=== PATIENT | male | born 1955 | race Caucasian/White ===

== ENCOUNTER 2022-09-19 09:16 | Outpatient (CLI) | payer MEDICARE, SELFPAY ==
--- NOTE | 2022-09-19 11:00 | NEURO_ITS ---
Impression: # Complains of numbness and weakness of hands. # Bilateral Carpal Tunnel Syndrome, left more than right. # Bilateral ulnar neuropathy across the elbows. # Needle/EMG exam is neurogenic. Motor Nerve Conduction Upper Extremities Median Nerve Conduction Velocity (m/sec) Terminal Latency (msec) Response Voltage(mV) Elbow-Wrist Wrist Elbow Wrist Right 53 4.6 2 2 Left 60 4.8 2 3 Ulnar Nerve Conduction Velocity (m/sec) Terminal Latency (msec) Response Voltage(mV) Above Elbow Below Elbow Wrist Above Elbow Below Elbow Wrist Right 46 44 3.3 4 4 5 Left 49 57 3.0 3 4 5 F-Wave Latency Median (ms) Ulnar (ms) Right 34.8 34.8 Left 33.9 34.6 Sensory Nerve Conduction Upper Extremities Median Nerve Stimulation Terminal Latency (msec) Wrist/Digit Response Voltage (uV) Wrist Right 3.9/4.0 10/11 Left 4.3/4.1 15/15 Ulnar Nerve Stimulation Terminal Latency (msec) Wrist/Digit Response Voltage (uV) Wrist Right 3.3 29 Left 3.5 34 Radial Nerve Terminal Latency (msec) Response Voltage(mV) Right 2.5 10 Left 2.6 12 Left Right Muscles Examined Fibrillation Fasciculation Scarcity Voltage Duration Left Right Left Right Left Right Left Right Left Right Deltoid Biceps X X Brachioradialis Triceps X X Pronator Teres X X Ext Indicis X X Ext Digitorum X X Abd Poll Brev >12ms >12ms X X 1st Dorsal Interosseus Reduced Reduced >12ms >12ms X X Abd Dig Min Reduced Reduced >12ms >12ms MTDD
== END 2022-09-19 09:17 | disposition home or self-care (01) ==
LOC: ANHNEURO 09:16
PROVIDERS: PCP Family Medicine; Visit Provider Family Medicine
DX: R20.2 Paresthesia of skin (principal); G56.23 Lesion of ulnar nerve, bilateral upper limbs; G56.03 Carpal tunnel syndrome, bilateral upper limbs
CPT/HCPCS: 95886; 95911

== ENCOUNTER 2023-01-05 09:57 | Outpatient (CLI) | payer MEDICARE, SELFPAY ==
--- NOTE | 2023-01-05 | ECG_ITS ---
Measurements Intervals [place] Rate: 58 P: -6 GA: 180 QRS: 7 QRSD: 105 T: 61 QT: 398 QTc: 394 Interpretive Statements SINUS BRADYCARDIA NO PREVIOUS ECG AVAILABLE FOR COMPARISON Electronically Signed On 01-05-2023 12:18:33 CDT by Dontae Henderson M.D.
== END 2023-01-05 09:58 | disposition home or self-care (01) ==
LOC: ANHCARD 09:59
PROVIDERS: PCP Family Medicine; Visit Provider Plastic Surgery
DX: E11.9 Type 2 diabetes mellitus without complications (principal); I10 Essential (primary) hypertension; Z01.818 Encounter for other preprocedural examination
CPT/HCPCS: 93005

== ENCOUNTER 2024-04-29 12:25 | Outpatient (CLI) | payer MEDICARE, SELFPAY ==
--- NOTE | ~2024-04-29 | MR_ITS ---
EXAMINATION: MR lumbar spine wo con DATE: 04/29/2024 13:18 INDICATION: Lumbago with sciatica. Chronic low back pain rating down left leg. TECHNIQUE: Magnetic resonance imaging (MRI) of the lumbar spine was performed without intravenous con trast. COMPARISON: None FINDINGS: There is 6 degrees levocurvature of thoracolumbar spine. There is 4 mm retrolisthesis of L1 on L2 and 5 mm anterolisthesis of L4 on L5. There is chronic height loss of T11-L5 vertebral bodies. There are Schmorl's nodes at multiple levels. There are disc calcifications at T12-L1. There is isaias rely decreased disc height at L1-L2 and moderately decreased disc height at L2-L3, L4-L5, and L5-S1. The distal spinal cord signal intensity is normal. The conus medullaris is at T12-L1. The following d isc levels are specifically discussed: L1-L2: The disc is bulging and has an annular fissure. There is moderate bilateral facet joint osteoa rthritis. There is moderate right and mild left neural foraminal stenosis. There is mild central ayo l stenosis. L2-L3: The disc is bulging and has an annular fissure. There is severe bilateral facet joint osteoart hritis. There is moderate bilateral neural foraminal stenosis. There is mild central canal stenosis. L3-L4: The disc is bulging. There is moderate right and severe left facet joint osteoarthritis. There is moderate bilateral neural foraminal stenosis. There is mild central canal stenosis. L4-L5: The disc is bulging and has an annular fissure. There is severe bilateral facet joint osteoart hritis. There is moderate right and mild left neural foraminal stenosis. There is moderate central ca nal stenosis. L5-S1: The disc is bulging and has an annular fissure. There is severe bilateral facet joint osteoart hritis. There is moderate bilateral neural foraminal stenosis. There is mild central canal stenosis. IMPRESSION: 1. Severe lumbar spondylosis. Reviewed, dictated and finalized at location A.
== END 2024-04-29 12:26 ==
LOC: GOSHIMG 12:27
PROVIDERS: PCP Nurse Practitioner; Visit Provider Nurse Practitioner
DX: M54.40 Lumbago with sciatica, unspecified side (principal); G89.29 Other chronic pain; M47.896 Other spondylosis, lumbar region
CPT/HCPCS: 72148

== ENCOUNTER 2024-07-01 12:37 | Outpatient (CLI) | payer MEDICARE, SELFPAY ==
--- NOTE | ~2024-07-01 | MR_ITS ---
EXAMINATION: MR cervical spine wo con DATE: 07/01/2024 13:34 INDICATION: Cervical disc disorder. TECHNIQUE: Magnetic resonance imaging (MRI) of the cervical spine was performed without intravenous c ontrast. Sequences included sagittal T2-weighted FSE, sagittal T2-weighted FS FSE, sagittal T1-weight ed FSE, axial MERGE, and axial T2-weighted FSE. COMPARISON: None FINDINGS: Bone alignment is normal. Vertebral body heights are normal. There is severely decreased di sc height at C6-C7 and C7-T1. There is increased T2-weighted signal intensity in the spinal cord at C 4-C5. The following disc levels are specifically discussed: C2-C3: The disc does not extend beyond the endplate margin. There is moderate left uncovertebral join t osteoarthritis. There is mild right and moderate left facet joint osteoarthritis. There is mild rig ht and moderate left neural foraminal stenosis. There is no central canal stenosis. C3-C4: There is a central extrusion. There is moderate right and mild left uncovertebral joint osteoa rthritis. There is moderate bilateral facet joint osteoarthritis. There is moderate right and mild le ft neural foraminal stenosis. There is moderate central canal stenosis with ventral and dorsal indent ation of the spinal cord. C4-C5: There is a central extrusion. There is moderate bilateral uncovertebral joint osteoarthritis. There is severe bilateral facet joint osteoarthritis. There is moderate bilateral neural foraminal st enosis. There is severe central canal stenosis with ventral and dorsal indentation of the spinal cord . C5-C6: There is a central extrusion. There is moderate right and mild left uncovertebral joint osteoa rthritis. There is severe right and moderate left facet joint osteoarthritis. There is mild bilateral neural foraminal stenosis. There is mild central canal stenosis with ventral indentation of the spin al cord. C6-C7: There is a left central extrusion. There is severe bilateral uncovertebral joint osteoarthriti s. There is moderate right and mild left facet joint osteoarthritis. There is moderate and mild left neural foraminal stenosis. There is mild central canal stenosis. C7-T1: The disc is bulging. There is severe bilateral uncovertebral joint osteoarthritis. There is se geronimo bilateral facet joint osteoarthritis. There is moderate right and mild left neural foraminal marielos nosis. There is mild central canal stenosis. IMPRESSION: 1. Severe cervical spondylosis. 2. Myelomalacia at C4-C5. Reviewed, dictated and finalized at location A.
== END 2024-07-01 12:38 | disposition home or self-care (01) ==
LOC: GOSHIMG 12:39
PROVIDERS: PCP Nurse Practitioner; Visit Provider Anesthesiology Pain Medicine
DX: M50.90 Cervical disc disorder, unspecified, unspecified cervical region (principal); M47.892 Other spondylosis, cervical region
CPT/HCPCS: 72141

== ENCOUNTER 2024-09-07 12:13 | Outpatient (CLI) | payer MEDICARE, SELFPAY ==
--- NOTE | ~2024-09-07 | XR_ITS ---
XR shoulder RT min 2V Ordering provider: Radha Castro [employer] History: . M25.511 - Pain in right shoulder . Comparison: None. FINDINGS: BONES: No acute fracture or dislocation. JOINT SPACES: The acromioclavicular joint shows mild osteoarthritic changes. The glenohumeral joint s hows mild osteoarthritic changes. SOFT TISSUES: Normal. IMPRESSION: No acute osseous abnormality right shoulder. Reviewed, dictated and finalized at location A. ECTOR HAIRSPRING
--- NOTE | ~2024-09-07 | XR_ITS ---
XR femur RT min 2V Ordering provider: ADEN HayesC History: . M89.8X5 - Other specified disorders of bone, thigh . Comparison: None. FINDINGS: BONES: No acute fracture or dislocation. JOINT SPACES: Moderate osteoarthritic changes of the right hip. SOFT TISSUES: Normal. IMPRESSION: No acute osseous abnormality of the right femur. Moderate osteoarthritic changes of the right hip. Reviewed, dictated and finalized at location A. 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
== END 2024-09-07 12:14 | disposition home or self-care (01) ==
LOC: GOSHIMG 12:15
PROVIDERS: PCP Family Medicine; Visit Provider Nurse Practitioner
DX: M16.11 Unilateral primary osteoarthritis, right hip (principal); M25.511 Pain in right shoulder
CPT/HCPCS: 73030; 73552

== ENCOUNTER 2024-09-08 13:08 | Emergency (ER) | payer MEDICARE, SELFPAY ==
--- NOTE | ~2024-09-08 | XR_ITS ---
AP and oblique views of the right ribs Clinical History: Pain Findings: Acute fracture of the right sixth rib noted. Lungs are clear, without focal consolidation o r pleural effusion. Cardiomediastinal contour is within normal limits. Soft tissues are unremarkable. Impression: Acute fracture of the right sixth rib. Reviewed, dictated and finalized at location . 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
--- NOTE | 2024-09-08 15:25 | ED.FALL ---
HPI - Fall General Chief Complaint: Fall Stated Complaint: fall Time Seen by Provider: 09/08/24 15:18 History of Present Illness HPI Narrative: 69-year-old male presents to the emergency department for right shoulder pain, right thigh pain and right rib pain after mechanical fall that occurred 3 days ago. Patient states he is unsteady balance and lost his balance and fell to the ground landing on the right side. He did not hit his head or lose consciousness. He is not anticoagulated. Patient had out patient x-rays performed yesterday of his shoulder and femur which showed no acute findings. He presents today for persistent rib pain. Related Data Home Medications ?Medication ?Instructions ?Recorded ?Confirmed ?Last Taken ?Type amlodipine 10 mg tablet 10 mg PO DAILY 07/28/19 08/24/24 Unknown History aspirin 81 mg tablet,delayed 81 mg PO DAILY 07/28/19 08/24/24 Unknown History release carvedilol 25 mg tablet 25 mg PO Q12H 07/28/19 08/24/24 Unknown History tacrolimus 1 mg capsule, 1 mg PO Q12H 08/11/19 08/24/24 Unknown History immediate-release triamcinolone acetonide 55 mcg 1 spray intranasal DAILY 08/11/19 08/24/24 Unknown History nasal spray aerosol (Nasacort) loratadine 10 mg tablet (Claritin) 10 mg PO DAILY 04/17/21 08/24/24 Unknown History doxazosin 8 mg tablet 8 mg PO DAILY 04/16/24 08/24/24 Unknown History magnesium oxide 400 mg PO DAILY 06/05/24 08/24/24 Unknown History Allergies Allergy/AdvReac Type Severity Reaction Status Date / Time Penicillins Allergy Unknown rash Verified 08/24/24 12:53 ibuprofen AdvReac Other Verified 08/24/24 12:53 CEPHALEXIN MONOHYDRATE Allergy Unknown GI DISTRESS Uncoded 08/24/24 12:53 Review of Systems Review of Systems: All systems reviewed & are unremarkable except as noted in HPI and below PMFSH Past Medical History Medical History Seizures Chronic headaches Diabetes Asthma Allergies Hepatitis C antibody test negative (02/23/12) Surgical History Surgical History H/O inguinal hernia repair H/O kyphoplasty Hx of carpal tunnel repair Bilateral - January and February 2023 Liver transplant recipient (~2018) Family History Family History Grandparent Diabetes mellitus Acute myocardial infarction Cerebrovascular accident Mother Family history of malignant neoplasm, Onset Age: 41 Father Hypertension Other Family history of alcoholism Family history of blood dyscrasia Social History Social History Smoking packs per day: 2 Smoking cigarettes per day: 40.0 Years smoked: 15 Smoking pack-years: 30.00 Smoking status: Former smoker Smoking end date: 09/09/84 Alcohol intake: never Substance use: never Substance use type: does not use Do You Feel Safe in your Home?: Yes Lack of Transportation: No Lack of Food: Never True Current Housing: I Have Housing Concerned About Future Housing: No Difficulty Paying Gas/Electric Bills: No Difficulty Paying for Meds: No Currently Unemployed: No Education: Associate Degree Difficulty w/ Childcare or Family Care: No Exam Narrative: GENERAL: Well-appearing, well-nourished, and in no acute distress. HEAD: Normocephalic, atraumatic. EYES: EOMI. ENT: Nares clear, no rhinorrhea or epistaxis. Mucous membranes moist. NECK: No midline cervical spinous tenderness, crepitus, step-offs or deformities BACK: No midline thoracolumbar spinous tenderness, crepitus, step-offs or deformities CHEST: Clear to auscultation. No respiratory distress. Tenderness to the right anterior lateral chest wall with no overlying skin changes HEART: Regular rate and rhythm. No murmur heard. Normal peripheral pulses. ABDOMEN: Soft, nontender, nondistended, normal active bowel sounds. EXTREMITIES: Diffuse tenderness to the right shoulder with no obvious deformity or edema, no ecchymosis. No tenderness remainder of extremity. Radial pulse 2 +. Sensation intact. Near full range of motion but it is limited secondary to pain. Tenderness diffusely to the right thigh with no obvious deformity, no edema or ecchymosis. No tenderness remainder of extremity. Full range of motion of hip and knee. DP pulse 2 +. Sensation intact. SKIN: Warm, dry, no rash. NEURO: No focal deficits. Alert and oriented x3 MDM - Fall MDM Narrative Medical decision making narrative: 69-year-old male presents to the emergency department for right rib pain, right shoulder pain and right thigh pain after a mechanical fall that occurred 3 days prior to arrival. Outpatient x-rays reviewed of the shoulder and femur which show no acute osseous findings. Exam is significant for the above. He is neurovascularly intact. X-ray of the ribs confirm an acute fracture of the right 6th rib which is consistent with his exam. Findings were discussed. He was given an incentive spirometer and instructed on how and when to use it. He was also given lidocaine patches. Shared decision making regarding pain medications given history of unsteady gait and patient would like narcotic pain medications to take for night for pain. Discussed follow-up with PCP and strict ED return precautions. He is agreeable with the plan verbalized understanding. Discharged in stable condition. Discharge Plan Discharge Clinical Impression: Closed rib fracture Qualifiers: Encounter type: initial encounter Rib fracture type: single rib Laterality: right Qualified Code(s): S22.31XA - Fracture of one rib, right side, initial encounter for closed fracture Patient Disposition: Home, Self-Care Condition: Stable Instructions: Antibiotic Form, Rib Fracture (ED) Additional Instructions: Your evaluated in the emergency department for right rib pain. Your found to have an acute fracture of the right 6th rib. Please use the lidocaine patches and hydrocodone as needed for pain. Make sure to take the hydrocodone when you are going to be stationary for several hours such as before going to bed as this will make your gait more unsteady. Please follow-up closely with the primary care provider. Use the incentive spirometer several times a day as discussed to prevent complications of a rib fracture. Return to the emergency department if you develop a fever, cough or congestion, shortness of breath, or other concerning symptoms. Patient Language: Dominican Prescriptions: New hydrocodone-acetaminophen 5-325 mg tablet 1 tablet PO Q6H PRN (Reason: pain) Qty: 14 0RF lidocaine 5 % adhesive patch,medicated 1 patch topical DAILY Qty: 15 0RF Rx Instructions: leave on most painful area for up to 12 hrs. do not use more than 1 patch in a 24-hour period. No Action amlodipine 10 mg tablet 10 mg PO DAILY aspirin 81 mg tablet,delayed release (DR/EC) 81 mg PO DAILY carvedilol 25 mg tablet 25 mg PO Q12H doxazosin 8 mg tablet 8 mg PO DAILY magnesium oxide 400 mg magnesium tablet 400 mg PO DAILY triamcinolone acetonide [Nasacort] 55 mcg aerosol,spray 1 spray NASAL DAILY tacrolimus 1 mg capsule 1 mg PO Q12H Rx Instructions: Take 2 mg qam and 1 mg qpm loratadine [Claritin] 10 mg tablet 10 mg PO DAILY albuterol sulfate [ProAir HFA] 90 mcg/actuation HFA aerosol inhaler 2 puff INHALATION Q4-6H PRN (Reason: shortness of breath or wheezing) Qty: 8.5 5RF cyclobenzaprine 10 mg tablet 10 mg PO TID PRN (Reason: muscle spasm) Qty: 180 1RF losartan 25 mg tablet See Rx Instructions .ROUTE .COMPLEX Qty: 100 1RF Dose Instruction: TAKE 1 TABLET BY MOUTH DAILY Rx Instructions: TAKE 1 TABLET BY MOUTH DAILY metformin 500 mg tablet See Rx Instructions .ROUTE .COMPLEX Qty: 400 1RF Dose Instruction: TAKE 2 TABLETS BY MOUTH TWICE DAILY Rx Instructions: TAKE 2 TABLETS BY MOUTH TWICE DAILY Follow-up/Referrals: Sharri Argueta DO [Primary Care Provider] -
[2024-09-08 15:56] VITALS: BP 143/80; PULSE 74; RESP 16; TEMP 36.8; O2SAT 98
== END 2024-09-08 15:57 | disposition home or self-care (01) ==
PROVIDERS: Emergency Provider Physician Assistant; PCP Family Medicine
DX: S22.31XA Fracture of one rib, right side, initial encounter for closed fracture (principal); W19.XXXA Unspecified fall, initial encounter; E11.9 Type 2 diabetes mellitus without complications; J45.909 Unspecified asthma, uncomplicated; Z87.891 Personal history of nicotine dependence
CPT/HCPCS: 71100; 99283

== ENCOUNTER 2024-09-22 11:54 | Outpatient (CLI) | payer MEDICARE, SELFPAY ==
--- NOTE | 2024-09-22 13:26 | ECG_ITS ---
Test Date: 2024-09-22 13:51:14 Measurements Intervals [place] Rate: 76 P: 18 CO: 201 QRS: 15 QRSD: 105 T: 43 QT: 369 QTc: 416 Interpretive Statements SINUS RHYTHM WARNING: DATA QUALITY MAY AFFECT INTERPRETATION No previous ECG available for comparison Electronically Signed On 09-22-2024 15:36:29 ANALYST SALES by Dontae Henderson M.D.
[2024-09-22 14:47] LABS: Prothrombin Time 13.2 Seconds (11.1-14.7)
[2024-09-22 14:48] LABS: Partial Thromboplastin Time 28.4 Seconds (22.3-36.8)
== END 2024-09-22 11:55 | disposition home or self-care (01) ==
LOC: ANHSURGERY 11:57
PROVIDERS: PCP Family Medicine; Visit Provider Neurological Surgery
DX: G95.9 Disease of spinal cord, unspecified (principal); I10 Essential (primary) hypertension; Z01.818 Encounter for other preprocedural examination
CPT/HCPCS: 36415; 85610; 85730; 93005

== ENCOUNTER 2024-09-28 10:25 | Outpatient (CLI) | payer MEDICARE, SELFPAY ==
[2024-09-28 10:54] LABS: Add Urine Microscopic? YES; Appearance Urine Clear (Clear); Bacteria Urine None Seen /hpf; Bilirubin Urine Negative (Negative); Blood Urine Negative (Negative); Color Urine Yellow (Yellow); Glucose Urine UA Negative (Negative); Ketones Urine Negative (Negative); Leukocyte Esterase Ur Negative LEU/UL (Negative); Nitrate Urine Negative (Negative); Non Pathogenic Casts 0-2; Protein Urine 1+ mg/dL (Negative); RBC Urine 0-2 /hpf (0-2); Specific Grav Ur 1.017 (1.001-1.035); Squamous Epithelial Cell Urine None Seen /hpf (Few); Urobilinogen Urine 0.2 mg/dL (<2.0); WBC Urine 0-5 /hpf (0-3); pH Urine 6.5 (5.0-9.0)
--- OUTSIDE RECORDS SUMMARY | 2024-10-01 12:44 | XMS_ITS | Referral Summary ---
Author Organization [facility] Address [address] [place] [address] Care Team Providers Care Certified Technician Specialist Name Role Phone RobbyalenaSharri liu DO Primary Care Provider [phone] Qi Story RN Unavailable Unavailable Source Comments [facility],non-owned Affiliates and Associated Physician Practices is amultiple site organization consisting of ambulatory clinics and hospital sitesin [place], [place], [place] and [place]. This disclosure is being madepursuant to the Care Everywhere program and may not contain all information available regarding this patient. Last updated 18.[facility] Encounters Date Type Department Care Team Description 09/14/2024 Refill [facility] [address] [place] [address] [phone] Ramon Morales MD MEDICATION REFILL 08/28/2024 Telephone [facility] - Nephrology [address] [place] [address] [phone] Ramon Morales MD Surgery Scheduling 07/29/2024 Refill [facility] [address] [address] [place] [phone] Ramon Morales MD Refill Request 07/21/2024 Travel 07/21/2024 1:00 PM HAIR OR BEAUTY SALON MANAGER Office Visit [facility] [address] [place], [place] [address]vd, [place] [phone] Ramon Morales MD S/P liver transplant (HCC) (Primary Dx); Long-term use of immunosuppressant medication; Benign essential HTN; IPMN (intraductal papillary mucinous neoplasm) 07/10/20[address] Orders [address] [facility] [address], [place] [address] Ramon Morales MD Long-term use of immunosuppressant medication; S/P liver transplant (HCC) from Last 3 Months Allergies Active Allergy Reactions Criticality Noted Date Comments Cephalexin Nausea and/or Vomiting,Other Low 09/11/2015 Upset stomach. Has taken since without reaction., Upset stomach. Has taken since without reaction., Upset stomach. Has taken since without reaction. Ibuprofen Other 07/21/2024 Contraindicated w/ tacrolimus Live Vaccines (Immunodeficiency) Other Low 11/13/2017 Immunocompromised due to transplant, no live vaccines Penicillins Other Low 09/11/2015 unknown, unknown, unknown Medications * Be aware that medications may not be up to date on this document. Alwaysverify current medications with the patient. Medication Sig Dispensed Refills Start Date End Date Status aspirin (ASPIRIN) 81 MG chew tabletIndications :S/P liver transplant (HCC),Hypertensio n, unspecified type Take 1 tablet by mouth once daily 100 tablet 4 07/09/2018 Active metFORMIN ER 24hr (GLUCOPHAGE XR) 500 MG tablet TAKE 2 TABLETS BY MOUTH TWO TIMES DAILY 360 tablet 1 03/23/2019 Active Loratadine 10 MG Take 10 mg by mouth at bedtime Active Multiple Vitamins-Minerals (MULTIVITAMIN ADULT PO) Take 1 tablet by mouth 2 times daily Active Methylcobalamin 1 MG Take 1 tablet by mouth once daily Active losartan (Cozaar) 25 MG tablet Take 1 (one) tablet by mouth once daily 04/24/2022 Active cyclobenzaprine (Flexeril) 10 MG tablet Take 1 (one) tablet by mouth as needed 07/19/2022 Active amLODIPine (Norvasc) 10 MG tabletIndications :S/P liver transplant (HCC),Hypertensio n, unspecified type TAKE 1 TABLET BY MOUTH ONCE DAILY 100 tablet 2 02/13/2024 Active doxazosin (Cardura) 8 MG tabletIndications :S/P liver transplant (HCC),Hypertensio n, unspecified type TAKE 1 TABLET BY MOUTH AT BEDTIME 100 tablet 3 07/30/2024 Active carvedilol (Coreg) 25 MG tabletIndications :S/P liver transplant (HCC),Hypertensio n, unspecified type TAKE 1 TABLET BY MOUTH TWICE DAILY WITH MORNING AND EVENING MEALS 200 tablet 3 07/30/2024 Active tacrolimus (Prograf) 1 MG capsuleIndication s:Liver Transplant Status Take 1 (one) capsule by mouth 2 times daily Fill with Prograf generic equivalent Reasons: Liver Transplant Recipient 180 capsule 3 09/14/2024 Active tacrolimus (Prograf) 1 MG capsuleIndication s:Liver Transplant Status Take 1 (one) capsule by mouth 2 times daily Fill with Prograf generic equivalent Reasons: Liver Transplant Recipient 180 capsule 3 11/28/2023 Discontinue d(Reorder) Active Problems Problem Noted Date Diagnosed Date 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 Xerosis cutis 03/05/2023 Rash and other nonspecific skin eruption 021 Assessment & Plan (11/04/2020 12:02 PM HAIR OR BEAUTY SALON MANAGER): -L ankle/foot -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 -start TAC oint BID PRN w wet wraps, instructions provided Multiple benign melanocytic nevi of upper extremity, lower extremity, and trunk 11/04/2020 Assessment & Plan (11/04/2020 12:01 PM HAIR OR BEAUTY SALON MANAGER): - None atypical or more concerning than others on exam today - Counseled on importance of daily sun protection, and monthly self skin exams - Reviewed ABCDEs of melanoma - Advised sun protective behaviors and regular sun screen use - Annual FBSE Lentigines 11/04/2020 Assessment & Plan (11/04/2020 12:01 PM HAIR OR BEAUTY SALON MANAGER): -Benign, reassurance Other specified dermatitis 11/04/2020 Seborrheic keratosis 11/04/2020 Neutropenia 10/28/2020 History of hepatocellular carcinoma 11/20/2018 Long-term use of immunosuppressant medication Benign essential HTN 08/28/2018 IPMN (intraductal papillary mucinous neoplasm) 0 05/23/2018 Fatty pancreas 05/08/2018 Right inguinal hernia 05/08/2018 Overview (05/08/2018): Indirect Diabetes mellitus type 2, uncontrolled 8 Pre-transplant evaluation for liver transplant 0 12/23/2017 Overview (12/23/2017): LISTED Diagnosis: BRADSHAW/HCC Referring Food Sales Clerk: Andrew Alert: Will need renoportal at the time of transplant! MELD: 24 Blood Type: A Short H/P summary: 60 y/o male with BRADSHAW cirrhosis. PMH includes, DM II, seizures due to hyponatremia, HTN, encephalopathy, EV, ascites - MILD. LVP - Attempted LVP once unsuccessful due to low amount of fluid. Hx also includes asthma on inhalers, smoking 1-2 PPD for 15 years quit 30 yrs ago. Patient suffers from chronic back pain, from old compression fractures and hx of surgeries. Patient takes oxycodone 5 mg PRN and tramadol for pain. He also gets steroid injections from his pain management doctor which temporarily relieves his back pain. Patient had a right inguinal hernia repair with mesh in Sep 2016. In Sep 2016, pt had a right inguinal hernia repair. He is currently listed for HCC with exception points. Lesion noted in 12/2016 revealed 2 X 1.7cm in hepatic segment 7/8, since been treated with thermal ablation in February 2017 and bland embolization in June 2017. Most recent imaging completed in Sep 2017 revealed no evidence of recurrent HCC, pt was discussed in tumor board on 09/25/17. Evaluation Testing Date and Results: 08/06/2017 Labs: Quant Gold: Negative 06/19/2016 07:19 Hepatitis A AB Total Positive (A) 08/06/2017 11:43 HBcAb, Total Non-reactive HBSAG SCREEN Negative Cytomegalovirus Antibody IgG <0.60 EBV Ab VCA, IgG >750.0 (H) HIV AG/AB 1,2 Non-reactive Mumps Virus Antibody IgG >300.0 RPR Non-reactive RUBELLA IGG ANTIBODY, >33.00 Rubeola AB IgG >300.0 09/19/17 AFP - 2.6 08/06/2017 11:43 CA 19-9 22.830 PSA <0.1 Amphetamines, Urine Screen Negative Barbiturates, Urine Screen Negative Benzodiazepines, Urine Screen Negative Cannabinoids (THC), Urine Screen Negative Cocaine Metabolites, Urine Screen Negative Ethanol,Serum None Detected Methadone, Urine Screen Negative OPIATES (URINE) Negative Phencyclidine, Urine Screen Negative 08/06/2017 11:43 Cholesterol 185 HDL 51 LDL CHOL, CALCULATED 117 (H) Triglycerides 85 eAG 197 Hemoglobin A1c 8.5 (H) Radiology: CT Chest: 08/06/2017 1. No evidence of metastatic disease in the chest. 2. Hepatic cirrhosis with posttreatment changes in hepatic segment 7 and sequela of portal hypertension. ?? Pano: 08/06/2017 No evidence of periapical abscess. ?? Abd/Pelvis [address]: 09/19/2017 S/p Thermal Ablation on 07/02/17 Last AFP: 09/19/17 = 2.6 1. Interval bland embolization of a segment 7 hepatocellular carcinoma. Previously described thick arterial enhancement along the superomedial medial margin of the ablation cavity with subtle washout is no longer seen (LR TR nonviable). No additional arterially enhancing hepatic lesions identified. 2. Hepatic cirrhosis with sequela of portal hypertension, including unchanged chronic occlusive portal venous thrombus with cavernous transformation. Cardiology: Echo: 08/06/2017 The left ventricular ejection fraction is normal, EF 65 %. Abnormal relaxation filling pattern of the left ventricle for age (stage 1 diastolic dysfunction). The right ventricle is normal in size and function. Right ventricular systolic pressure could not be estimated due to incomplete tricuspid regurgitation velocity profile DSE: 08/06/2017 No echocardiographic evidence of myocardial ischemia. Normal response to Dobutamine. Cardiac Cath: 07/30/16 ANGIOGRAPHY: ?? i. ?Left main: LM is short. It trifurcates into LAD, LCx and ramus intermedius branches. TYhere is no angiographic evidence of disease in LM. ii.?LAD: LAD is large caliber and wraps around the apex. There is no angiographic evidence of disease. Diagonal branches are small. iii. ?? LCx: LCx has no angiographic evidence of disease. It gives off a single large OM branch which has no angiographic evidence of disease. iv. ?? RCA: RCA is dominant. There is no angiographic evidence of disease in RCA. It gives off an R-PDA and large caliber R-PLV branches which have no angiographic evidence of disease. v.? Other angiography: Ramus intermedius: There is no angiographic evidence of disease in ramus. ?? PFTs:06/19/2016 Lung Volumes by plethysmography were variable; RAW was acceptable. 2 DLCO efforts were averaged for an Inspiratory Volume that was 74% of best VC; predicted values corrected for Hb of 12.8 and a COHb of 2.2. 4 puffs Albuterol MDI given for bronchodilator study per ATS/ERS protocol. ABG drawn on room air, right radial, negative modified Anoop test. Patient gave a good effort but was losing focus during during post BD studies. 06/19/2016 11:15 pH, Arterial 7.43 pCO2 Arterial 36 pO2 Arterial 77 HCO3 Arterial 23.7 TCO2 ARTERIAL 24.8 (L) Base Excess Arterial 0.2 HB ARTERIAL 12.8 (L) O2HB ARTERIAL 95.8 Carboxyhemoglobin 2.2 METHB ARTERIAL 0.0 FIO2 ARTERIAL 20.9 EGD: 04/04/2015 Grade II Varices (easily visible, moderate size) were present. Colonoscopy: 03/11/12 Internal hemorrhoids not felt to be clinically significant. No evidence of obstruction, masses or polyps. SW: Clinical Social Work Impression:?? It is the impression of this manager social that Robert Harrell has several positive factors for Liver transplant candidacy including knowledge of illness, sufficient insurance coverage, stable financial situation for post transplant needs, and no concerns regarding substance abuse. ?? SW concerns are patient's support system and discharge plan. ?? Plan:?? grizzly worker to provide supportive services as needed. Patient appears to be a reasonable candidate for transplant from a psychosocial perspective, pending: ?? - Post transplant arrangement forms are needed prior to being listed, with confirmation. ? Psychiatric Consult Recommended: No? Transplant Skin Former:?? MIKY OVERTON?? RD: 24 Hour Recall/food frequency: eggs, chocolate milk, salad, spaghetti, hamburger, [place] - loaiza seared, mash potatoes, broccoli, corn cauliflower, apples, ham and burundian, lettuce and tomato sandwich, Ramen noodles about 4 packets per week, uses Low Sodium Salt ?? Additional Information: Pt verbalized an understanding of the low sodium diet - pt's diet still seems high in sodium. ?? BMI= 32.72, Class I Obesity. Pt is considered to be a good candidate for a Liver Transplant from a Nutrition standpoint if Nutrition Recommendations followed. ?? Recommendations/Interventions: 1. Pt instructed to watch weight. 2. Pt instructed to eat less sodium. ?? S/P liver transplant 11/13/2017 Overview (07/21/2020): Referring Physician: Dr. Morales PCP: Dr. 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 Liver Transplant: 11/03/2017 ([facility]) Orthotopic liver transplant, piggyback technique, with bee- portal shunt for inflow due to portal vein thrombosis using donor iliac vein interposition graft .Choledocho-choledochostomy, off veno-venous bypass. Immunosuppression: Methlpred on POD 0, 1, 2, 3, 4, 5 Prednisone 20mg taper Myfortic 360mg BID Tacrolimus Prophylaxis: Acyclovir 400mg daily x 3 months for CMV Bactrim SS daily x 3 months for PCP Adjustments: Readmissions: Biopsies: Explant Liver, explant, koi hepatectomy (A): - Cirrhosis (history of BRADSHAW) - Completely necrotic nodule in right lobe (4.0 cm) - Macroregenerative nodules, multifocal - Focal dysplasia (small and large cell changes) - Hepatocellular iron focally up to 4+ - No viable hepatocellular carcinoma identified Gallbladder, koi hepatectomy (A): - Mild chronic cholecystitis Gallbladder, donor, cholecystectomy (B): - Mild chronic cholecystitis MICROSCOPIC DESCRIPTION AND COMMENT: Microscopic findings support the final diagnosis. The liver is cirrhotic, with dense fibrotic septa surrounding regenerative liver nodules. The fibrotic tracts have ductular reaction and mild chronic inflammation. There is no interface activity or duct injury. Minimal macrovesicular steatosis (<5%) is present. Classic ballooned hepatocytes and well-formed Keysha-Denk bodies are not seen. Lobular inflammation is minimal. No chronic hepatitis or cholestasis is identified. There is a 4.0 cm necrotic nodule with associated intravascular foreign material and giant cell reaction in the right lobe, which is consistent with previous treatment/embolization. There is no evidence of viable residual hepatocellular carcinoma. ??There are foci of dysplasia (small and large cell changes) and scattered macroregenerative nodules. The trichrome and reticulin stains confirm cirrhosis. The PAS-D stain is negative for hqjzo-[id number]-kyvzphcrkdo globules. The iron stain shows granular hepatocellular iron focally up to 4+. At this advanced stage of liver disease, it is difficult to ascertain an etiology with certainty. There are no overt features of chronic cholestatic liver disease or an active chronic hepatitis. ??Only minimal steatosis is present, without ballooning. ??The findings would be compatible with a burnt out nonalcoholic steatohepatitis (BRADSHAW) in the correct clinical setting. POST TRANSPLANT HCC SURVEILLANCE MONITORING CT ABD 12/26/2017 IMPRESSION: ??1. Orthotopic liver transplant. A 7 mm arterially enhancing observation in hepatic segment IVb is intermediate probability for hepatocellular carcinoma (LR 3). 2. Renal-portal venous anastomosis with a 5.8 cm and minimal dilatation of the draining varix, unchanged. 3. Small amount of nonocclusive thrombus within the superior mesenteric and splenic veins. 4. Sequela of portal hypertension including splenomegaly and large perisplenic varices. 5. Small cystic lesion in the uncinate process of the pancreas which is largely stable. This could be the sequela of prior pancreatitis, but intraductal papillary neoplasm is not excluded. Attention on follow-up recommended. MRI ABD 04/03/2018 IMPRESSION: 1. No arterially-enhancing hepatic lesions concerning for hepatocellular carcinoma. Orthotopic liver transplant.?? 2. 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 3. Sequela of portal hypertension with splenomegaly and large perisplenic Varices. ??4. Cystic lesions in the uncinate process of the pancreas measuring 1.7 cm and in the pancreatic body measuring 8 mm likely representing IPMN. Follow-up MR exam in one year is recommended. ?? 07/11/2018 MRI ABD IMPRESSION: ?? 1. Postoperative appearance of orthotopic liver transplantation. Multiple new arterial phase enhancing observations diffusely scattered throughout both hepatic lobes without washout or delayed capsular enhancement. These observation do not have typical appearance of a mass and are favored to represent vascular phenomenon. Accelerated follow-up is recommended. ?? 2. 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 ?? 3. Sequela of portal hypertension including splenomegaly and large perisplenic varices. ?? 4. Grossly unchanged multiple cystic pancreatic lesions, the largest in the uncinate process measures 1.8 cm. These appear to communicate with the pancreatic duct and likely represent side branch intraductal papillary mucinous neoplasm (IPMN). Attention on follow-up is recommended. ?? 10/13/2018 MRI ABD IMPRESSION: 1. Postoperative changes of orthotopic liver transplant with overall unchanged areas of nonmasslike arterial hyperenhancement, favored to represent transient hepatic intensity difference (THID). No arterially-enhancing liver lesion suspicious for hepatocellular carcinoma. 2. 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 3. Sequela portal hypertension including splenomegaly and numerous large varices. 4. Unchanged pancreatic cystic lesion likely representing intraductal papillary mucinous neoplasm (IPMN). 10/13/2018 CT CHEST IMPRESSION: 1. No suspicious pulmonary nodule is identified. 2. Postoperative appearance of orthotopic liver transplantation. 3. Atrophic pancreas. 04/14/19 MRI ABD IMPRESSION: 1. Postoperative changes of orthotopic liver transplant with overall unchanged areas of nonmasslike arterial hyperenhancement, favored to represent transient hepatic intensity difference (THID). No arterially-enhancing liver lesion suspicious for hepatocellular carcinoma. 2. 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 3. Sequela of portal hypertension including splenomegaly and numerous large varices. 4. Unchanged pancreatic cystic lesions likely representing intraductal papillary mucinous neoplasm (IPMN). Health Maintenance: 12/08/2018 Colonoscopy Impression: ? - Preparation of the colon was fair and thus ? screening colonoscopy was inadequate to clear colon. ? - Stool in the entire examined colon. ? - The entire examined colon is normal on direct and ? retroflexion views. ? - No specimens collected. Recommendation: ? - Patient has a contact number available for ? emergencies. The signs and symptoms of potential ? delayed complications were discussed with the ? patient. Return to normal activities tomorrow. ?Written discharge instructions were provided to the ? patient. ? - Resume previous diet. ? - Continue present medications. ? - Repeat colonoscopy in 1 year because the bowel ? preparation was suboptimal. ? - Return to my office as previously scheduled. 04/14/19 MRI ABD IMPRESSION: ?? 1. Postoperative changes of orthotopic liver transplant with overall unchanged areas of nonmasslike arterial hyperenhancement, favored to represent transient hepatic intensity difference (THID). No arterially-enhancing liver lesion suspicious for hepatocellular carcinoma. ?? 2. 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 ?? 3. Sequela of portal hypertension including splenomegaly and numerous large varices. ?? 4. Unchanged pancreatic cystic lesions likely representing intraductal papillary mucinous neoplasm (IPMN). 10/13/2019 CT Chest IMPRESSION: ??1.New 3 mm right lower lobe pulmonary nodule. Short-term follow-up CT chest is advised. 2.Postoperative changes of an orthotopic liver transplantation. 10/13/2019 MRI ABD IMPRESSION: 1. Postoperative changes of orthotopic liver transplant. Innumerable arterially hyperenhancing observations throughout the liver without washout appearance are unchanged from the prior study (LR 3).?? 2. Httcvl-vngzj-dvkrye venous anastomosis, with unchanged aneurysmal dilatation at the splenorenal confluence. 3. Sequela of portal hypertension including splenomegaly and large varices.?? 4. Unchanged cystic lesions throughout the pancreas, most likely representing intraductal papillary mucinous neoplasms (IPMN). Annual imaging follow-up is recommended. 01/14/2020 CT CHEST IMPRESSION: 1. No suspicious pulmonary nodule identified. 2. Partially imaged splenic venous aneurysm. ?? 01/14/2020 MRI ABD IMPRESSION: 1. Postoperative changes of orthotopic liver transplant. No significant change in numerous arterially hyperenhancing observations throughout the liver without washout (LR 3). 2. Patent inbedd-caokc-kmthoo venous anastomosis, with unchanged aneurysmal dilatation of the splenorenal confluence. 3. Sequela of previous portal hypertension including splenomegaly and large varices. 04/04/2020 Colonoscopy Recommendation: ? - Patient has a contact number available for ? emergencies. The signs and symptoms of potential ? delayed complications were discussed with the ? patient. Return to normal activities tomorrow. ? Written discharge instructions were provided to the ? patient. ? - Resume previous diet. ? - Continue present medications. ? - Await pathology results. ? - Repeat colonoscopy in 5-10 years for surveillance ? depending on pathology. Final Diagnosis Large intestine, ascending colon polyp, biopsy (A): - ??Benign polypoid mucosa ?? Large intestine, rectal polyp, biopsy (B): - Hyperplastic polyp 07/21/2020 MRI ABD IMPRESSION: ?? 1.Postoperative appearance of orthotopic liver transplant. A few scattered arterially hyperenhancing observations measuring approximately 1 to 2 cm are seen throughout the liver. No abnormal enhancing liver lesions are present. 2.Sequelae of portal hypertension including splenomegaly and portosystemic varices. 3.Splenorenal-portal venous anastomosis with grossly unchanged aneurysmal dilation of the splenorenal confluence. 4.Unchanged cystic lesion in the pancreatic head/uncinate, likely representing an IPMN. Follow-up in 1 year is recommended. Assessment & Plan (11/04/2020 12:01 PM HAIR OR BEAUTY SALON MANAGER): -discussed inc risk NMSC/MM - Reviewed ABCDEs of melanoma - Advised sun protective behaviors and regular sun screen use - Annual FBSE Type 2 diabetes mellitus with hyperglycemia 10/11 Chronic midline low back pain without sciatica 0 05/25/2016 Other chronic pain 05/25/2016 Portal vein thrombosis 04/04/2016 Closed wedge compression fracture of lumbar vert ebra 04/04/2016 Closed compression fracture of lumbar vertebra 0 04/04/2016 Thrombocytopenia 09/12/2015 Resolved Problems Problem Noted Date Diagnosed Date Resolved Date Secondary esophageal varices without bleeding 06/10/20 17 05/23/2018 Liver cell carcinoma 06/10/2017 018 Abnormality of gait and mobility 08/03/2016 05/23/2018 Dizziness and giddiness 08/02/201612/08 Liver disease 04/04/2016 12/23/2017 Liver lesion 04/04/2016 05/23/2018 Other cirrhosis of liver 12/14/2015 Acute respiratory failure 09/16/2015 Hepatic failure, without coma 09/12/2015 12/23/2017 Hypo-osmolality and hyponatremia 09/12/2015 12/23/2017 Immunizations Name Administration Dates Next Due CovQoL Meds primary monoval ent 12+ yr 0.3mL Purple cap 11/29/2020,11/04/2020 INFLUENZA VACCINE, ADJUVANTE D, QUADR. (FLUAD QUADRIVALENT; 65Y+) (AIIV4) 05/31/2023 INFLUENZA VACCINE, QUADR. (F LUZONE; FLULAVAL; FLUARIX; AFLURIA QUADRIVALENT; 6MO+), 0.5 ML (IIV4) 06/23/2019 PNEUMOCOCCAL PPSV23 09/11/2015 Pneumococcal Pcv13 Conj 06/11/2019 Social History Tobacco Use Types Packs/Day Years Used Date Smoking Tobacco: Former Cigarettes Q uit: 09/11/1983 Smokeless Tobacco: Never Alcohol Use Standard Drinks/Week Comments No 0 (1 standard drink = 0.6 oz pur e alcohol) Sex and Gender Information Value Date Recorded Sex Assigned at Not on file Gender Identity Not on file Sexual Orientation Straight 07/31/2024 7: 47 PM HAIR OR BEAUTY SALON MANAGER Last Filed Vital Signs Vital Sign Reading Time Taken Comments Blood Pressure 137/83 07/21/2024 1:48 PM HAIR OR BEAUTY SALON MANAGER Pulse 74 07/21/2024 1:48 PM HAIR OR BEAUTY SALON MANAGER Temperature 36.4 ??C (97.5 ??F) 05/31/2023 1:01 PM CD T Respiratory Rate 18 07/21/2024 1:48 PM HAIR OR BEAUTY SALON MANAGER Oxygen Saturation 99% 07/21/2024 1:48 PM HAIR OR BEAUTY SALON MANAGER Inhaled Oxygen Concentration - - Weight 93.7 kg (206 lb 9.6 oz) 07/21/2024 1:48 P M HAIR OR BEAUTY SALON MANAGER Height 182.9 cm (6') 07/21/2024 1:48 PM HAIR OR BEAUTY SALON MANAGER Body Mass Index 28.02 07/21/2024 1:48 PM HAIR OR BEAUTY SALON MANAGER Plan of Treatment Upcoming Encounters Date Type Department Care Team (Late st Contact Info) Description 02/02/2025 12:00 PM CDT Office Visit [facility] - GI [address] [place] [address], [place] [address] Ramon Morales MD [address] [place] [address] [place] [address] 03/11/2025 1:20 PM CDT Office Visit [facility] - Dermatology [address], [place] [address] Bernard Baca MD [address] [facility] [place] [address] Goals Goal Patient Goal Type Associated Problems Recent Progress Patient-Stated? Author Medication Management General On track( 023 1:11 PM CDT) No Ayah Coleman, RN Note: Expected end date: ongoing Interventions: Take all medications as prescribed Procedures Procedure Name Priority Date/Time Associated Diagnosis Comments TACROLIMUS LEVEL Routine 07/15/2024 8:06 AM HAIR OR BEAUTY SALON MANAGER Long-term use of immunosuppressant medication S/P liver transplant (HCC) COMPREHENSIVE METABOLIC PANEL Routine 07/15/2024 8:06 AM HAIR OR BEAUTY SALON MANAGER Long-term use of immunosuppressant medication S/P liver transplant (HCC) CBC W AUTO DIFFERENTIAL Routine 07/15/2024 8:06 AM HAIR OR BEAUTY SALON MANAGER Long-term use of immunosuppressant medication S/P liver transplant (HCC) ENDOSCOPY, COLON, SCREENING Routine 04/04/2020 9:37 AM CDT HEMOGLOBIN A1C 03/14/2020 8:46 AM CDT HEPATITIS C ANTIBODY Routine 09/11/2015 10:46 AM HAIR OR BEAUTY SALON MANAGER from Last 3 Months or Most Recently Relevant to Health Maintenance Results * TACROLIMUS LEVEL (07/15/2024 8:06 AM HAIR OR BEAUTY SALON MANAGER) Tacrolimus 6.2 mcg/L [facility] Comment: No definitive therapeutic or toxic ranges have been established. Optimal blood drug levels are influenced by type of transplant, patient response, time post- transplant, co-administration of other drugs, and drug formulation. The following trough range is a suggested guideline: 5.0-20.0 mcg/L. Test Performed at: [facility] [address] [place], [place] ??[phone] KAMAR ALEXANDRE MD Blood BLOOD SPECIMEN / Unknown 07/15/2024 8:06 AM HAIR OR BEAUTY SALON MANAGER 07/15/2024 8:07 AM HAIR OR BEAUTY SALON MANAGER Ramon Morales MD LAB - THERAPEUTIC DR NICK MONITORING ORDERABLES [facility] [address] [place] [address] * (ABNORMAL) CBC WITH DIFFERENTIAL (07/15/2024 8:06 AM HAIR OR BEAUTY SALON MANAGER) White Blood Cell Count 3.6(L) 3.8 - 10.8 Thousand/u L [facility] RBC 5.03 4.20 - 5.80 Million/uL [facility] Hemoglobin 15.6 13.2 - 17.1 g/dL [facility] Hematocrit 46.5 38.5 - 50.0 % [facility] MCV 92.4 80.0 - 100.0 fL [facility] MCH 31.0 27.0 - 33.0 pg [facility] MCHC 33.5 32.0 - 36.0 g/dL [facility] Comment: For adults, a slight decrease in the calculated MCHC value (in the range of 30 to 32 g/dL) is most likely not clinically significant; however, it should be interpreted with caution in correlation with other red cell parameters and the patient's clinical condition. RDW 12.5 11.0 - 15.0 % [facility] Platelet Count 77(L) 140 - 400 Thousand/u L [facility] MPV 11.7 7.5 - 12.5 fL [facility] Neutrophil Absolute 2412 1500 - 7800 cells/uL [facility] Lymphocytes Absolute 821(L) 850 - 3900 cells/uL [facility] Absolute Monocytes 234 200 - 950 cells/uL [facility] Eosinophils Absolute 112 15 - 500 cells/uL [facility] Basophils Absolute 22 0 - 200 cells/uL [facility] Granulocytes % 67 % [facility] Lymphocytes % 22.8 % [facility] Monocytes % 6.5 % [facility] Eosinophils % 3.1 % [facility] Basophils % 0.6 % [facility] Comment: Test Performed at: [facility] [employer] [address] [place] [address] ??[id number] KAMAR ALEXANDRE MD Blood BLOOD SPECIMEN / Unknown 07/15/2024 8:06 AM HAIR OR BEAUTY SALON MANAGER 07/15/2024 8:07 AM HAIR OR BEAUTY SALON MANAGER Ramon Morales MD LAB - HEMATOLOGY ORD ERABLES Performing Organization Address [facility] Co de Phone Number [facility] [address] [place] [address] * (ABNORMAL) COMPREHENSIVE METABOLIC PANEL (07/15/2024 8:06 AM HAIR OR BEAUTY SALON MANAGER) Glucose 149(H) 65 - 99 mg/dL [facility] Comment: ? Fasting reference interval For someone without known diabetes, a glucose value >125 mg/dL indicates that they may have diabetes and this should be confirmed with a follow-up test. BUN 18 7 - 25 mg/dL [facility] Creatinine 1.24 0.70 - 1.35 mg/dL [facility] eGFR by Cystatin C 63 > OR = 60 mL/min/1. 73m2 [facility] BUN/Creatinine Ratio SEE NOTE: (calc) [facility] Comment: ?? Not Reported: BUN and Creatinine are within ?? reference range. ? Sodium 140 135 - 146 mmol/L [facility] Potassium 5.0 3.5 - 5.3 mmol/L [facility] Chloride 102 98 - 110 mmol/L [facility] CO2 32 20 - 32 mmol/L [facility] Calcium 9.3 8.6 - 10.3 mg/dL [facility] Protein Total 6.2 6.1 - 8.1 g/dL [facility] Albumin 4.2 3.6 - 5.1 g/dL [facility] Globulin Total 2.0 1.9 - 3.7 g/dL (calc) [facility] Albumin/Globulin Ratio 2.1 1.0 - 2.5 (calc) [facility] Bilirubin Total 1.0 0.2 - 1.2 mg/dL [facility] Alkaline Phosphatase 59 35 - 144 U/L [facility] AST 14 10 - 35 U/L [facility] ALT 18 9 - 46 U/L [facility] Comment: Test Performed at: [facility] [address] [place] [address] ??[id number] KAMAR ALEXANDRE MD Blood BLOOD SPECIMEN / Unknown 07/15/2024 8:06 AM HAIR OR BEAUTY SALON MANAGER 07/15/2024 8:07 AM HAIR OR BEAUTY SALON MANAGER Ramon Morales MD LAB - CHEMISTRY LUIS ENRIQUE CELIS Performing Organization Address City/[facility]/ZIP Co de Phone Number [facility] [phone] [facility] [place] [address] * ENDOSCOPY, COLON, SCREENING (04/04/2020 9:37 AM CDT) Report Endoscopy POC Endoscopy Department Report _ Patient Name: Robert Harrell ?Procedure Date: 04/04/2020 9:37 AM ? Date of : 1955 Classification: Outpatient ?Gender: Male Ethnicity: Not or ? Race: White _ Providers: ?Ramon Morales MD, Elda Rashid (Fellow) Referring MD: ? Ramon Morales MD (Referring MD) Procedure: ?Colonoscopy Indications: ?Screening for colorectal malignant neoplasm. Medications: ?Monitored Anesthesia Care Comorbidities ? 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 ?Colonoscopy 12/2018: fair prep. C-scope 03/2012: ?intenal hemorrhoids. No polyps. Description of Procedure: Pre-Anesthesia Assessment: ?- Prior to the procedure, a History and Physical ?was performed, and patient medications and ?allergies were reviewed. The patient's tolerance of ?previous anesthesia was also reviewed. The risks ?and benefits of the procedure and the sedation ?options and risks were discussed with the patient. ?All questions were answered, and informed consent ?was obtained. Prior Anticoagulants: The patient has ?taken no previous anticoagulant or antiplatelet ?agents except for aspirin. ASA Grade Assessment: ?III - A patient with severe systemic disease. After ?reviewing the risks and benefits, the patient was ?deemed in satisfactory condition to undergo the ?procedure. ?After I obtained informed consent, the scope was ?passed under direct vision. Throughout the ?procedure, the patient's blood pressure, pulse, and ?oxygen saturations were monitored continuously. The ?[id number] was introduced through the anus and ?advanced to the cecum, identified by appendiceal ?orifice and ileocecal valve. The colonoscopy was ?performed without difficulty. The patient tolerated ?the procedure well. The quality of the bowel ?preparation was evaluated using the BBPS ([place] ?Bowel Preparation Scale) with scores of: Right ?Colon = 2 (minor amount of residual staining, small ?fragments of stool and/or opaque liquid, but mucosa ?seen well), Transverse Colon = 2 (minor amount of ?residual staining, small fragments of stool and/or ?opaque liquid, but mucosa seen well) and Left Colon ?= 2 (minor amount of residual staining, small ?fragments of stool and/or opaque liquid, but mucosa ?seen well). The total BBPS score equals 6. The ?ileocecal valve, appendiceal orifice, and rectum ?were photographed. ? Findings: ? The perianal and digital rectal examinations were normal. ? A 2 mm polyp was found in the ascending colon. The polyp was sessile. ? The polyp was removed with a cold snare. Resection and retrieval were ? complete. ? A 3 mm polyp was found in the rectum. The polyp was sessile. The polyp ? was removed with a jumbo cold forceps. Resection and retrieval were ? complete. ? A few hyperplastic polyps were found in the rectum. The polyps were ? diminutive in size. Polypectomy was not attempted due to benign nature ? of these polyps. ? The exam was otherwise without abnormality on direct and retroflexion ? views. ? Estimated Blood Loss: ? Estimated blood loss was minimal. Complications: ?No immediate complications. Impression: ? - One 2 mm polyp in the ascending colon, removed ?with a cold snare. Resected and retrieved. ?- One 3 mm polyp in the rectum, removed with a ?jumbo cold forceps. Resected and retrieved. ?- The examination was otherwise normal on direct ?and retroflexion views. Recommendation: ? - Patient has a contact number available for ?emergencies. The signs and symptoms of potential ?delayed complications were discussed with the ?patient. Return to normal activities tomorrow. ?Written discharge instructions were provided to the ?patient. ?- Resume previous diet. ?- Continue present medications. ?- Await pathology results. ?- Repeat colonoscopy in 5-10 years for surveillance ?depending on pathology. ? Attending Participation: ??I was present and participated during the entire ?procedure, including non-shelby portions. ? Procedure Code(s): ? --- Professional --- ? 11830, Colonoscopy, flexible; with removal of tumor(s), polyp(s), or ? other lesion(s) by snare technique ? 78947, 59, Colonoscopy, flexible; with biopsy, single or multiple Diagnosis Code(s): ?--- Professional --- ?Z12.11, Encounter for screening for malignant ?neoplasm of colon ?K63.5, Polyp of colon ?K62.1, Rectal polyp CPT copyright 2019 [employer]. All rights reserved. The codes documented in this report are preliminary and upon blueprint trimmer review may be revised to meet current compliance requirements. _ Ramon Morales MD 04/04/2020 10:34:35 AM This report has been signed electronically. Note Initiated On: 04/04/2020 9:37 AM Number of Addenda: 0 ? [facility] ? [address] [place] [address] [facility] 04/04/2020 9:37 AM CDT Elda Rashid MD GI PROCEDURE ORDERAB [facility] * (ABNORMAL) HEMOGLOBIN A1C (03/14/2020 8:46 AM CDT) Hemoglobin A1c 6.0(H) <5.7 % of total Hgb [facility] Comment: For someone without known diabetes, a hemoglobin A1c value between 5.7% and 6.4% is consistent with prediabetes and should be confirmed with a follow-up test. For someone with known diabetes, a value <7% indicates that their diabetes is well controlled. A1c targets should be individualized based on duration of diabetes, age, comorbid conditions, and other considerations. This assay result is consistent with an increased risk of diabetes. Currently, no consensus exists regarding use of hemoglobin A1c for diagnosis of diabetes for children. Test Performed at: [facility] [address] [place], [place] ??[phone] OMARI HOFFMANN DO,MPH 03/14/2020 8:46 AM CDT 03/14/2020 8:47 AM CDT Ramon Morales MD LAB - CHEMISTRY LUIS ENRIQUE CELIS [facility] [address] [place] [address] * HEPATITIS C ANTIBODY (09/11/2015 10:46 AM HAIR OR BEAUTY SALON MANAGER) Hepatitis C Antibody Non-react rosendo Non-reac tive [facility] Comment: Hepatitis C Antibody screen indicates no serologic evidence of past or current infection with Hepatitis C Virus. Patients with unexplained liver disease who are immunocompromised or suspected of having acute Hepatitis C infection may benefit from Nucleic Acid Test (ERUM) for Hepatitis C Viral RNA to confirm Hepatitis C status. Blood specimen (specimen) BLOOD SPECIMEN / Unknown 09/11/2015 10:46 AM HAIR OR BEAUTY SALON MANAGER 09/11/2015 10:52 AM HAIR OR BEAUTY SALON MANAGER Scott Lee MD LAB - CHEMISTRY LUIS ENRIQUE CELIS [facility] [address] [place] [address] from Last 3 Months or Most Recently Relevant to Health Maintenance Advance Directives Documents on File Type Date Recorded Patient Apprenticeship Consultant Expl anation Advance Directives and Livin g Will 07/17/2016 12:00 AM Advance Directives and Livin g Will 09/11/2015 12:00 AM Care Teams Certified Technician Specialist Relationship Specialty Start Date End Date Sharri Argueta DO [address] [place] [address] PCP - General 10/23/20 Qi Story, RN Registered Nurse 10/28/20
--- OUTSIDE RECORDS SUMMARY | 2024-10-01 12:44 | XMS_ITS | Clinical Summary ---
Author Organization [facility] [email or web address] Address [address] [place] [address] Care Team Providers Care Parts Facilitator Name Role Phone Sharri Argueta DO Primary Care Provider [phone] Qi Story RN Unavailable Unavailable Source Comments [facility],non-owned Affiliates and Associated Physician Practices is amultiple site organization consisting of ambulatory clinics and hospital sitesin [place], [place], [place] and [place]. This disclosure is being madepursuant to the Care Everywhere program and may not contain all information available regarding this patient. 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 -start TAC oint BID PRN w wet wraps, instructions provided Multiple benign melanocytic nevi of upper extremity, lower extremity, and trunk 11/04/2020 Assessment & Plan (11/04/2020 12:01 PM SEAM FELLER): - None atypical or more concerning than others on exam today - Counseled on importance of daily sun protection, and monthly self skin exams - Reviewed ABCDEs of melanoma - Advised sun protective behaviors and regular sun screen use - Annual FBSE Lentigines 11/04/2020 Assessment & Plan (11/04/2020 12:01 PM SEAM FELLER): -Benign, reassurance Other specified dermatitis 11/04/2020 Seborrheic keratosis 11/04/2020 Neutropenia 10/28/2020 History of hepatocellular carcinoma 11/20/2018 Long-term use of immunosuppressant medication Benign essential HTN 08/28/2018 IPMN (intraductal papillary mucinous neoplasm) 0 05/23/2018 Fatty pancreas 05/08/2018 Right inguinal hernia 05/08/2018 Overview (05/08/2018): Indirect Diabetes mellitus type 2, uncontrolled 8 Pre-transplant evaluation for liver transplant 0 12/23/2017 Overview (12/23/2017): LISTED Diagnosis: BRADSHAW/HCC Referring Smasher: Andrew Alert: Will need renoportal at the [...] Impression:?? It is the impression of this social work msw that Robert Harrell has several positive factors for Liver transplant candidacy including knowledge of illness, sufficient insurance coverage, stable financial situation for post transplant needs, and no concerns regarding substance abuse. ?? SW concerns are patient's support system and discharge plan. ?? Plan:?? liner worker to provide supportive services as needed. Patient appears to be a reasonable candidate for transplant from a psychosocial perspective, pending: ?? - Post transplant arrangement forms are needed prior to being listed, with confirmation. ? Psychiatric Consult Recommended: No? Transplant Permit Specialist:?? MIKY OVERTON?? RD: 24 Hour Recall/food frequency: eggs, chocolate milk, salad, spaghetti, hamburger, [place] - loaiza seared, mash potatoes, broccoli, corn cauliflower, apples, ham and [place], lettuce and tomato sandwich, Ramen noodles about [...] Transplant Date: 11/03/2017 Donor: Standard criteria donor [id number] CMV D-/R-, EBV D+/R+ Pre-Transplant Summary: ESLD [...] PCP Adjustments: Readmissions: Biopsies: Explant Liver, explant, [place] hepatectomy (A): - Cirrhosis (history of BRADSHAW) - Completely necrotic nodule in right lobe (4.0 cm) - Macroregenerative nodules, multifocal - Focal dysplasia (small and large cell changes) - Hepatocellular iron focally up to 4+ - No viable hepatocellular carcinoma identified Gallbladder, [place] hepatectomy (A): - Mild chronic cholecystitis Gallbladder, [...] cirrhosis. The PAS-D stain is negative for lvorr-5-fwcupcoifuj globules. The iron stain shows granular hepatocellular [...] from the prior study (LR 3).?? 2. Sqdyxe-alxhq-ummnqi venous anastomosis, with unchanged aneurysmal dilatation at [...] liver without washout (LR 3). 2. Patent ahkcmk-atppy-trniek venous anastomosis, with unchanged aneurysmal dilatation of [...] recommended. Assessment & Plan (11/04/2020 12:01 PM SEAM FELLER): -discussed inc risk NMSC/MM - Reviewed ABCDEs [...] 09/12/2015 12/23/2017 Hypo-osmolality and hyponatremia 09/12/2015 12/23/2017 Encounters Date Type Department Care Team Description 09/14/2024 Refill [facility] - GI [address] [place] [phone] Ramon Morales MD MEDICATION REFILL 08/28/2024 Telephone [facility] - Nephrology [address] [place] [phone] Ramon Morales MD Surgery Scheduling 07/29/2024 Refill [facility] [address] [address] [place] [phone] Ramon Morales MD Refill Request 07/21/2024 1:00 PM SEAM FELLER Office Visit [facility] - GI [address] [place] [phone] Ramon Morales MD S/P liver transplant (HCC) (Primary Dx); Long-term use of immunosuppressant medication; Benign essential HTN; IPMN (intraductal papillary mucinous neoplasm) 07/21/2024 Travel 07/10/2024 Orders Only [facility] - GI [address] [place] [phone] Ramon Morales MD Long-term use of immunosuppressant medication; S/P liver transplant (HCC) from Last 3 Months Immunizations Name Administration Dates Next Due [employer] primary monoval ent 12+ yr 0.3mL Purple cap 11/29/2020,11/04/2020 INFLUENZA VACCINE, ADJUVANTE D, QUADR. (FLUAD QUADRIVALENT; 65Y+) (AIIV4) 05/31/2023 INFLUENZA VACCINE, QUADR. (F LUZONE; FLULAVAL; FLUARIX; AFLURIA QUADRIVALENT; 6MO+), 0.5 ML (IIV4) 06/23/2019 PNEUMOCOCCAL PPSV23 09/11/2015 Pneumococcal Pcv13 Conj 06/11/2019 Family History Medical History Relation Name Comments Mental Illness Brother Status: Alive Heart Failure Father Status: Deceas ed Other Father mesothelioma Cancer Mother Leukemia; Statu s: Relation Name Status Comments Brother Father Mother Social History Tobacco Use Types Packs/Day Years Used Date Smoking Tobacco: Former Cigarettes Q uit: 09/11/1983 Smokeless Tobacco: Never Alcohol Use Standard Drinks/Week Comments No 0 (1 standard drink = 0.6 oz pur e alcohol) Sex and Gender Information Value Date Recorded Sex Assigned at Not on file Gender Identity Not on file Sexual Orientation Straight 07/31/2024 7: 47 PM SEAM FELLER Last Filed Vital Signs Vital Sign Reading Time Taken Comments Blood Pressure 137/83 07/21/2024 1:48 PM SEAM FELLER Pulse 74 07/21/2024 1:48 PM SEAM FELLER Temperature 36.4 ??C (97.5 ??F) 05/31/2023 1:01 PM CD T Respiratory Rate 18 07/21/2024 1:48 PM SEAM FELLER Oxygen Saturation 99% 07/21/2024 1:48 PM SEAM FELLER Inhaled Oxygen Concentration - - Weight 93.7 kg (206 lb 9.6 oz) 07/21/2024 1:48 P M SEAM FELLER Height 182.9 cm (6') 07/21/2024 1:48 PM SEAM FELLER Body Mass Index 28.02 07/21/2024 1:48 PM SEAM FELLER Plan of Treatment Upcoming Encounters Date Type Department Care Team (Late st Contact Info) Description 02/02/2025 12:00 PM CDT Office Visit [facility] - [address] [phone] Ramon Morales MD [address] [place] [address] 03/11/2025 1:20 PM CDT Office Visit [facility] - Dermatology [address] [place] [address], [place] [phone] Bernard Baca MD [address] [facility] [place] [phone] Health Maintenance Due Date Last Done Comments COLOGUARD (AGES 45-75) - COLON CA SCREENING 1955 CT COLONOGRAPHY - COLON CA SCREENING 1955 FIT - COLON CA SCREENING 1955 FLEX SIG - COLON CA SCREENING 1955 DTAP/TDAP/TD VACCINES (1 - Tdap) 1974 ZOSTER VACCINE (1 of 2) 1974 DIABETES-STATIN 1995 Respiratory Syncytial Virus (RSV) Vaccine Pt: or over 60 yrs (1 - Risk 60-74 years 1-dose series) 2015 DIABETES RETINOPATHY SCREENING 05/08/2018 DIABETES-FOOT EXAM WITH MONOFILAMENT 05/08/2019 05/08/2018, 05/08/2018 AAA SCREENING 2020 PNEUMOCOCCAL VACCINE 50+ (3 of 3 - PPSV23, PCV20 or PCV21) 09/11/2020 06/11/2019, 09/11/2015 DIABETES-HGB A1C 09/14/2020 03/14/2020, 09/2019, 12/22/2019, Additional history exists COVID-19 VACCINE (3 - Pfizer risk series) 12/27/2020 11/29/2020, 11/04/2020 INFLUENZA VACCINE (#1) 2024 05/31/2023, 2018 DEPRESSION SCREENING 09/09/2024 DIABETES - URINE PROTEIN SCREENING 09/09/2024 MEDICARE AWV ? CALENDAR YEAR 2024 DIABETES-SERUM CREATININE 07/15/20252023, 02/12/2024, 11/12/2023, Additional history exists COLON MONITORING 04/04/2030 04/04/2020, , 12/08/2018, Additional history exists COLONOSCOPY - COLON CA SCREENING 04/04/2030 04/04/2020, 04/04/2020, 12/08/2018, Additional history exists Colorectal Cancer Screening 04/04/2030 HEPATITIS C SCREENING Completed 09/11/2015 HEPATITIS B VACCINE Aged Out No longe r eligible based on patient's age to complete this topic HIB VACCINE Aged Out No longer eligi ble based on patient's age to complete this topic HPV VACCINE Aged Out No longer eligi ble based on patient's age to complete this topic MENINGOCOCCAL (Group B) VACCINE Aged Out No longer eligible based on patient's age to complete this topic MENINGOCOCCAL VACCINE Aged Out No rudy satya eligible based on patient's age to complete this topic Goals Goal Patient Goal Type Associated Problems Recent Progress Patient-Stated? Author Medication Management General On track( 023 1:11 PM CDT) No Ayah Coleman RN Note: Expected end date: ongoing Interventions: Take all medications as prescribed Procedures Procedure Name Priority Date/Time Associated Diagnosis Comments TACROLIMUS LEVEL Routine 07/15/2024 8:06 AM SEAM FELLER Long-term use of immunosuppressant medication S/P liver transplant (HCC) COMPREHENSIVE METABOLIC PANEL Routine 07/15/2024 8:06 AM SEAM FELLER Long-term use of immunosuppressant medication S/P liver transplant (HCC) CBC W AUTO DIFFERENTIAL Routine 07/15/2024 8:06 AM SEAM FELLER Long-term use of immunosuppressant medication S/P liver transplant (HCC) ENDOSCOPY, COLON, SCREENING Routine 04/04/2020 9:37 AM CDT HEMOGLOBIN A1C 03/14/2020 8:46 AM CDT HEPATITIS C ANTIBODY Routine 09/11/2015 10:46 AM SEAM FELLER from Last 3 Months or Most Recently Relevant to Health Maintenance Results * TACROLIMUS LEVEL (07/15/2024 8:06 AM SEAM FELLER) Tacrolimus 6.2 mcg/L [facility] Comment: No definitive therapeutic or toxic ranges have been established. Optimal blood drug levels are influenced by type of transplant, patient response, time post- transplant, co-administration of other drugs, and drug formulation. The following trough range is a suggested guideline: 5.0-20.0 mcg/L. Test Performed at: [facility] [address] [place], [place] ??[phone] KAMAR ALEXANDRE MD Blood BLOOD SPECIMEN / Unknown 07/15/2024 8:06 AM SEAM FELLER 07/15/2024 8:07 AM SEAM FELLER Ramon Morales MD LAB - THERAPEUTIC DR NICK MONITORING ORDERABLES [facility] [address] [place] [address] * (ABNORMAL) CBC WITH DIFFERENTIAL (07/15/2024 8:06 AM SEAM FELLER) White Blood Cell Count 3.6(L) 3.8 - [...] 0.6 % [facility] Comment: Test Performed at: [facility] [address] [place], [place] ??[phone] KAMAR ALEXANDRE MD Blood BLOOD SPECIMEN / Unknown 07/15/2024 8:06 AM SEAM FELLER 07/15/2024 8:07 AM SEAM FELLER Ramon Morales MD LAB - HEMATOLOGY ORD ERABLES [facility] [address] [place] [address] * (ABNORMAL) COMPREHENSIVE METABOLIC PANEL (07/15/2024 8:06 AM SEAM FELLER) Glucose 149(H) 65 - 99 mg/dL [facility] [...] mL/min/1. 73m2 [facility] BUN/Creatinine Ratio SEE NOTE: 6 - 22 (calc) [facility] Comment: ?? Not Reported: BUN [...] 46 U/L [facility] Comment: Test Performed at: [facility] [address] [place], [place] ??[phone] KAMAR ALEXANDRE MD Blood BLOOD SPECIMEN / Unknown 07/15/2024 8:06 AM SEAM FELLER 07/15/2024 8:07 AM SEAM FELLER Ramon Morales MD LAB - CHEMISTRY LUIS ENRIQUE CELIS [facility] [address] [place] [address] * ENDOSCOPY, COLON, SCREENING (04/04/2020 9:37 AM [...] and ?oxygen saturations were monitored continuously. The ?CF-IV124N was introduced through the anus and ?advanced to the cecum, identified by appendiceal ?orifice and ileocecal valve. The colonoscopy was ?performed without difficulty. The patient tolerated ?the procedure well. The quality of the bowel ?preparation was evaluated using the BBPS ([place] ?Bowel Preparation Scale) with scores of: Right [...] Procedure Code(s): ? --- Professional --- ? 07927, Colonoscopy, flexible; with removal of tumor(s), polyp(s), or ? other lesion(s) by snare technique ? 08117, 59, Colonoscopy, flexible; with biopsy, single or multiple Diagnosis Code(s): ?--- Professional --- ?Z12.11, Encounter for screening for malignant ?neoplasm of colon ?K63.5, Polyp of colon ?K62.1, Rectal polyp CPT copyright 2019 [employer]. All rights reserved. The codes documented in this report are preliminary and upon cardiovascular surgeon review may be revised to meet current compliance requirements. _ Ramon Morales MD 04/04/2020 10:34:35 AM This report has been signed electronically. Note Initiated On: 04/04/2020 9:37 AM Number of Addenda: 0 ? [facility] ? [address] [place] [address] [facility] 04/04/2020 9:37 AM CDT Elda Rashid MD GI PROCEDURE ORDERAB LES [facility] * (ABNORMAL) HEMOGLOBIN A1C (03/14/2020 8:46 AM [...] of diabetes for children. Test Performed at: [facility] [address] [facility] [place] [facility] [place] ??[phone] OMARI HOFFMANN DO,MPH 03/14/2020 8:46 AM CDT 03/14/2020 8:47 AM CDT Ramon Morales MD LAB - CHEMISTRY LUIS ENRIQUE CELIS [facility] [address] [place] [address] * HEPATITIS C ANTIBODY (09/11/2015 10:46 AM SEAM FELLER) Hepatitis C Antibody [facility]-react [facility] Comment: Hepatitis C Antibody screen indicates no serologic evidence of past or current infection with Hepatitis C Virus. Patients with unexplained liver disease who are immunocompromised or suspected of having acute Hepatitis C infection may benefit from Nucleic Acid Test (ERUM) for Hepatitis C Viral RNA to confirm Hepatitis C status. Blood specimen (specimen) BLOOD SPECIMEN / Unknown 09/11/2015 10:46 AM SEAM FELLER 09/11/2015 10:52 AM SEAM FELLER Scott Lee MD LAB - CHEMISTRY LUIS ENRIQUE CELIS [facility] [address] [place] [address] from Last 3 Months or Most Recently Relevant to Health Maintenance Advance Directives Documents on File Type Date Recorded Patient Turbine Inspector Expl anation Advance Directives and Livin g Will 07/17/2016 12:00 AM Advance Directives and Livin g Will 09/11/2015 12:00 AM Care Teams Parts Facilitator Relationship Specialty Start Date End Date Sharri Argueta DO [address] [place] [address] PCP - General 10/23/20 Qi Story, RN Registered Nurse 10/28/20
--- OUTSIDE RECORDS SUMMARY | 2024-10-01 12:45 | XMS_ITS | Clinical Summary ---
Author Organization [facility] Address [address] [place] [address]. [place], [place] [phone] [place] [address] Care Team Providers Care Vp Outcomes Name Role Phone Rod Sanches MD Primary Care Provider [phone] Social History Tobacco Use Types Packs/Day Years Used Date Smoking Tobacco: Never Assessed Sex and Gender Information Value Date Recorded Sex Assigned at Not on file Legal Sex Male 7:46 PM CDT Gender Identity Not on file Sexual Orientation Not on file Plan of Treatment Health Maintenance Due Date Last Done Comments Colorectal Cancer Screening Colonoscopy (10 Years) 1955 Hepatitis C 1973 DTaP, Tdap and Td Vaccines ( 1 - Tdap) 1974 Zoster Vaccines (1 of 2) 2005 Pneumococcal Vaccine: 65+ Ye ars (1 of 1 - PCV) 2020 COVID-19 Vaccine (1 - 2023-2 5 season) 2024 Influenza Adult (#1) 2024 RSV Immunization or 60+ Years (1 - 1-dose 75+ series) 2030 Meningococcal Vaccine Aged Out No rudy satya eligible based on patient's age to complete this topic RSV Immunizations Under 20 Months Aged Out No longer eligible based on patient's age to complete this topic Care Teams Vp Outcomes Relationship Specialty Start Date End Date Rod Sanches MD [address] [place] [address] PCP - General 09/10/15
--- OUTSIDE RECORDS SUMMARY | 2024-10-01 12:45 | XMS_ITS | Encounter Summary ---
Author Organization [facility] Address [address] [place] [address] Care Team Providers Care Email Marketing Intern Name Role Phone Rod Sanches MD Primary Care Provider [phone] Phylicia Beck RN Unavailable Unavailable Sharri Argueta DO Primary Care Provider [phone] Rod Sanches MD Primary Care Provider [phone] Sharri Argueta DO Primary Care Provider [phone] Qi Story RN Unavailable Unavailable Encounter Details Date Type Department Care Team (Late st Contact Info) Description 05/06/2018 Nutrition [facility] TRANSPLANT [address] [place] [phone] [address] Roque [address]/LOLLY Social History Tobacco Use Types Packs/Day Years Used Date Smoking Tobacco: Former Cigarettes Q uit: 09/11/1983 Smokeless Tobacco: Never Alcohol Use Standard Drinks/Week Comments No 0 (1 standard drink = 0.6 oz pur e alcohol) Sex and Gender Information Value Date Recorded Sex Assigned at Not on file Gender Identity Not on file Sexual Orientation Straight 07/31/2024 7: 47 PM CARTON REPAIRER documented as of this encounter Progress Notes * Marva Roque RD/LD - 05/06/2018 2:04 PM CDT Nutrition Note: Called pt to discuss a Consistent Carb diet: Pt is fairly consistent with his intake of 2 Boost Glucose drinks at breakfasts and lunches. 3 day reported intake of dinner and HS snacks were... Saturday - Dinner - 6 sausage links, 4 eggs, 2 toast, HS - Snickers Bar Saturday- Dinner - 6 fried chicken wings, polish fries, HS - 6 cookies Saturday - Dinner 2 pancakes, butter, minimal syrup, HS - Snickers Bar Discussed pt selecting healthy dinner and snacks. Will e-mail pt ideas. Pt mentioned checking a BG level 1 - 1.5 hours after eating and the level ran in the 200's. Recommended pt wait 2-3 hours after eating to check his levels and before breakfast. . Recent Labs Component Name 02/10/18 1115 08/06/17 1143 06/19/16 0719 HGBA1C 6.0* 8.5* 4.9 EAG - 197 94 documented in this encounter Plan of Treatment Upcoming Encounters Date Type Department Care Team (Late st Contact Info) Description 02/02/2025 12:00 PM CDT Office Visit [facility] - GI [address] [place] [phone] Ramon Morales MD [facility] [place] [address] 03/11/2025 1:20 PM CDT Office Visit [facility] - Dermatology [address] [place] [phone] Bernard Baca MD [address] [facility] [place] [address] documented as of this encounter Visit Diagnoses Not on filedocumented in this encounter Care Teams Email Marketing Intern Relationship Specialty Start Date End Date Rod Sanches MD [address] [place] [phone] PCP - General 06/09/16 01/13/20 Sharri Argueta DO [address] [place] [address] PCP - General 01/14/20 04/06/20 Rod Sanches MD [address] [place] [phone] PCP - General 04/07/20 10/22/20 Sharri Argueta DO [address] [place] [address] PCP - General 10/23/20 Phylicia Beck, RN Registered Nurse 12/23/17 10/27/20 Qi Story, RN Registered Nurse 10/28/20 documented as of this encounter
--- OUTSIDE RECORDS SUMMARY | 2024-10-01 12:45 | XMS_ITS ---
Author Organization [facility] Address [address] 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 -start TAC oint BID PRN w wet wraps, instructions provided Multiple benign melanocytic nevi of upper extremity, lower extremity, and trunk 11/04/2020 Assessment & Plan (11/04/2020 12:01 PM TRANSITION NURSE): - None atypical or more concerning than others on exam today - Counseled on importance of daily sun protection, and monthly self skin exams - Reviewed ABCDEs of melanoma - Advised sun protective behaviors and regular sun screen use - Annual FBSE Lentigines 11/04/2020 Assessment & Plan (11/04/2020 12:01 PM TRANSITION NURSE): -Benign, reassurance Other specified dermatitis 11/04/2020 Seborrheic keratosis 11/04/2020 Neutropenia 10/28/2020 History of hepatocellular carcinoma 11/20/2018 Long-term use of immunosuppressant medication Benign essential HTN 08/28/2018 IPMN (intraductal papillary mucinous neoplasm) 0 05/23/2018 Fatty pancreas 05/08/2018 Right inguinal hernia 05/08/2018 Overview (05/08/2018): Indirect Diabetes mellitus type 2, uncontrolled 8 Pre-transplant evaluation for liver transplant 0 12/23/2017 Overview (12/23/2017): LISTED Diagnosis: BRADSHAW/HCC Referring Syruper: Andrew Alert: Will need renoportal at the [...] It is the impression of this social media coordinator that Robert Harrell has several positive factors for Liver transplant candidacy including knowledge of illness, sufficient insurance coverage, stable financial situation for post transplant needs, and no concerns regarding substance abuse. ?? SW concerns are patient's support system and discharge plan. ?? Plan:?? composition worker to provide supportive services as needed. Patient appears to be a reasonable candidate for transplant from a psychosocial perspective, pending: ?? - Post transplant arrangement forms are needed prior to being listed, with confirmation. ? Psychiatric Consult Recommended: No? Transplant Biofuels Operations Manager:?? MIKY OVERTON?? RD: 24 Hour Recall/food frequency: eggs, chocolate milk, salad, spaghetti, hamburger, [place] - loaiza seared, mash potatoes, broccoli, corn cauliflower, apples, ham and [place], lettuce and tomato sandwich, Ramen noodles about [...] Transplant Date: 11/03/2017 Donor: Standard criteria donor [id number] CMV D-/R-, EBV D+/R+ Pre-Transplant Summary: ESLD [...] PCP Adjustments: Readmissions: Biopsies: Explant Liver, explant, [place] hepatectomy (A): - Cirrhosis (history of BRADSHAW) - Completely necrotic nodule in right lobe (4.0 cm) - Macroregenerative nodules, multifocal - Focal dysplasia (small and large cell changes) - Hepatocellular iron focally up to 4+ - No viable hepatocellular carcinoma identified Gallbladder, [place] hepatectomy (A): - Mild chronic cholecystitis Gallbladder, [...] cirrhosis. The PAS-D stain is negative for unqie-1-xmlcdoxndwo globules. The iron stain shows granular hepatocellular [...] from the prior study (LR 3).?? 2. Wnmcjv-rbzvb-nxntbk venous anastomosis, with unchanged aneurysmal dilatation at [...] liver without washout (LR 3). 2. Patent cygekp-kqlwd-aaadpc venous anastomosis, with unchanged aneurysmal dilatation of [...] recommended. Assessment & Plan (11/04/2020 12:01 PM TRANSITION NURSE): -discussed inc risk NMSC/MM - Reviewed ABCDEs [...] of lumbar vertebra 0 04/04/2016 Thrombocytopenia 09/12/2015 Current Oncology Plans No current plan information found. Past Plans No past plan information found. Radiation Treatments * No radiation treatments are documented for this patient in [facility]. Treatments may have been administered in another system. Lifetime Dose Tracking * Chemical Lifetime Dose Automatic Entry Manual Entr y Dose Length Product 2,436 mGy-cm 2,436 mGy-cm 0 mGy-cm Resolved Problems Problem Noted Date Diagnosed Date [...]
--- OUTSIDE RECORDS SUMMARY | 2024-10-01 12:45 | XMS_ITS ---
Author Organization [facility] Address [address] [place] [address] Care Team Providers Care Advanced Manufacturing Vice President Name Role Phone Sharri Argueta DO Primary Care Provider [phone] Qi Story RN Unavailable Unavailable Transplant Episode Liver Recipient [facility] ([place], [place]) - [facility] Organ Received: Liver Transplanted on 11/03/2017 Marked as Active Follow-up on 11/03/2017 Liver CoordinatorQi Story RN Phone: N/A Fax: N/A Email: N/A [place] Organ Diagnosis Organ Primary Contributory Liver Cirrhosis: Fatty Liver ([place]) Donor Information Organ ABO Source Meets Risk Criteria HLA Match Mismatches Cross Match Liver Transplanted A1 DBD No A: B: DR: Liver Donor Serology Results Anti-CMV CMV IgG: Negative EBV IgG EBV VCA IgM: Positive Anti-HBcAb HBC Total: Negative HBsAg HBsAg: Negative HBV DNA No results on file Anti-HCV HCV: Negative Anti-HIV I/II HIV-1: Negative Anti-HTLV I/II HTLV: Not Done RPR/VDRL RPR: Negative EBV IgM EBV VCA IgM: Positive HBsAb No results on file Toxoplasma No results on file SARS CoV-2 No results on file Care Team Name Role Phone Fax Email Qi Story RN Liver Coordinator N/A N/A N/A Ramon Morales MD Referring Physician N/A N/A N/A Janae Diaz MD Transplant Surgeon N/A N/A N/A Events Post-Transplant Pre-Transplant Admitted: 11/03/2017 Referred: 05/25/2016 Transplanted: 11/03/2017 Evaluation began: 6 Discharged: 11/14/2017 Center waitlisted: 6
--- OUTSIDE RECORDS SUMMARY | 2024-10-01 12:45 | XMS_ITS | Clinical Summary ---
Author Organization [facility] Address [address] 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 Has taken since without reaction. Penicillins Unknown Low 09/11/2015 unknown Medications oxyCODONE (ROXICODONE) 5 mg tablet Take 1 Tablet (5 mg) by mouth every 8 hours as needed for Pain, Severe. Max Daily Amount: 15 mg 30 Tablet 11/18/2017 Active Active Problems Problem Noted Date Diagnosed Date S/P liver transplant 11/14/2017 Hyperbilirubinemia 11/14/2017 Hyponatremia 11/14/2017 Hypertension 11/14/2017 Diabetes mellitus 11/14/2017 Obesity 11/14/2017 Hepatic encephalopathy 11/14/2017 Esophageal varices 11/14/2017 Chronic back pain 11/14/2017 Cirrhosis 11/14/2017 Social History Tobacco Use Types Packs/Day Years Used Date Smoking Tobacco: Former Cigarettes 1 15 0 09/09/1972 - 09/09/1987 Alcohol Use Standard Drinks/Week Comments No 0 (1 standard drink = 0.6 oz pur e alcohol) Sex and Gender Information Value Date Recorded Sex Assigned at Not on file Legal Sex Male 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 Gender Identity Not on file Sexual Orientation Not on file Last Filed Vital Signs Vital Sign Reading Time Taken Comments Blood Pressure 159/82 11/21/2017 5:54 AM CDT Pulse 63 11/21/2017 5:54 AM CDT Temperature 36.6 ??C (97.9 ??F) 11/21/2017 5:54 AM CD T Respiratory Rate 16 11/21/2017 5:54 AM CDT Oxygen Saturation 94% 11/21/2017 5:54 AM CDT Inhaled Oxygen Concentration - - Weight 110.2 kg (243 lb) 11/21/2017 7:00 AM CDT Height 185.4 cm (6' 1 ) 11/14/2017 8:00 PM MALT SPECIFICATIONS CONTROL ASSISTANT Body Mass Index 32.06 11/14/2017 8:00 PM MALT SPECIFICATIONS CONTROL ASSISTANT Plan of Treatment Health Maintenance Due Date Last Done Comments DIABETES ANNUAL RETINAL EXAM 1973 DIABETES MICROALBUMIN ANNUAL SCREEN 1973 DTAP/TDAP/TD VACCINES (1 - Tdap) 1974 ZOSTER VACCINE (1 of 2) 1974 FIT-DNA Q 3 years 2000 FIT/FOBT Q 1 year 2000 Flex Sig/CT Colonography Q 5 years 2000 RSV VACCINE (60+ or ) (1 - Risk 60-74 years 1-dose series) 2015 LDL CHOLESTEROL ANNUAL 11/15/2018 11/15/2017 DIABETES ANNUAL FOOT EXAM 05/08/2019 05/08/2018 PNEUMOCOCCAL VACCINE 65+ YEA RS (3 of 3 - PPSV23, PCV20 or PCV21) 09/11/2020 06/11/2019, 09/11/2015 DIABETES HBA1C Q 6 MONTHS 09/14/2020 03/14/2020, 05/2018 COVID-19 Vaccine (3 - Pfizer risk series) 12/27/2020 11/29/2020, 11/04/2020 INFLUENZA VACCINE (#1) 2024 05/31/2023, 2018 COLORECTAL SCREENING 04/04/2030 04/04/2020 Colorectal Cancer Screening 04/04/2030 Procedures Procedure Name Priority Date/Time Associated Diagnosis Comments LIPID PANEL Routine 11/15/2017 5:52 AM MALT SPECIFICATIONS CONTROL ASSISTANT HEMOGLOBIN A1C Routine 11/15/2017 5:52 AM MALT SPECIFICATIONS CONTROL ASSISTANT from Last 3 Months or Most Recently Relevant to Health Maintenance Results * HEMOGLOBIN A1C (11/15/2017 5:52 AM MALT SPECIFICATIONS CONTROL ASSISTANT) HEMOGLOBIN A1C 6.0 4.0 - 6.0 % 11/15/2017 11:[address] [facility] [employer] [facility] EST. AVG GLUCOSE, A1C 126 mg/dL 11/15/2017 11:36 AM [facility] [employer] [facility] Blood Venipuncture / Unknown 11/15/2017 5:52 AM MALT SPECIFICATIONS CONTROL ASSISTANT 11/15/2017 10:35 AM MALT SPECIFICATIONS CONTROL ASSISTANT Zackary Alfonso [facility] CHEMISTRY ORDERABLES F inal Result [facility] [employer] [facility] CLIA# [id number] [address] [facility] [place] [address] * (ABNORMAL) LIPID PANEL (11/15/2017 5:52 AM MALT SPECIFICATIONS CONTROL ASSISTANT) CHOLESTEROL 119 <200 mg/dL 11/15/2017 11:33 AM [facility] [employer] [facility] TRIGLYCERIDE 121 <150 mg/dL 11/15/2017 11:33 AM [facility] [employer] [facility] HDL 24(L) 40 - 59 mg/dL 11/15/2017 11:33 AM [facility] [employer] [facility] LDL CALCULATED 71 <100 mg/dL 11/15/2017 11:33 AM [facility] [employer] [facility] NON-HDL CHOLESTEROL 95 <130 mg/dL 11/15/2017 11:33 AM [facility] [employer] [facility] Blood Venipuncture / Unknown 11/15/2017 5:52 AM MALT SPECIFICATIONS CONTROL ASSISTANT 11/15/2017 10:35 AM MALT SPECIFICATIONS CONTROL ASSISTANT Narrative [facility]ORATORY [facility] - 11/15/2017 11:33 AM MALT SPECIFICATIONS CONTROL ASSISTANT TOTAL CHOLESTEROL ??mg/dL ??Desirable <200 ??Borderline high 200-239 ??High >=240 TRIGLYCERIDES ??mg/dL ??Normal <150 ??Borderline high 150-199 ??High 200-499 ??Very high >=500 HDL CHOLESTEROL ??mg/dL ??Low <40 ??Normal 40-59 ??Desirable >=60 NON HDL CHOLESTEROL mg/dL ??Optimal <130 ??Near Optimal 130-159 ??Borderline High 160-189 ??Very High >=190 Calculated LDL mg/dL ??Optimal <100 ??Near Optimal 100-129 ??Borderline High 130-159 ??High 160-189 ??Very High >=190 ATPIII Guidelines Reference Ranges for Lipid Panels (NCEP/AMA) Zackary Alfonso DMS CHEMISTRY ORDERABLES F inal Result [facility]# [id number] [address] [place] [id number] from Last 3 Months or Most Recently Relevant to Health Maintenance Insurance [place] [employer] PREFERRED Advance Directives For more information, please contact: [phone] * Full Code (Latest Code Status on File) Date Activated Date Inactivated Comments 11/14/2017 12:56 PM 11/21/2017 1:27 PM
--- OUTSIDE RECORDS SUMMARY | 2024-10-01 12:45 | XMS_ITS | Patient Health Summary ---
Author Organization [facility] Address [address] [place] [address] Care Team Providers Care Urologic Surgeon Name Role Phone Sharri Argueta DO Primary Care Provider [phone] Qi Story RN Unavailable Unavailable Note from [facility],non-owned Affiliates and Associated Physician Practices is amultiple site organization consisting of ambulatory clinics and hospital sitesin [place], [place], [place] and [place]. This disclosure is being madepursuant to the Care Everywhere program and may not contain all information available regarding this patient. Last updated 18.[facility] Allergies * Cephalexin(Nausea and/or Vomiting,Other) -Low Criticality * Ibuprofen(Other) * Live Vaccines (Immunodeficiency)(Other) -Low Criticality * Penicillins(Other) -Low Criticality Medications * Be aware that medications may not be up to date on this document. Alwaysverify current medications with the patient. * aspirin (ASPIRIN) 81 MG chew tablet(Started 07/09/2018) Take 1 tablet by mouth once daily 4 refills remaining * metFORMIN ER 24hr (GLUCOPHAGE XR) 500 MG tablet(Started 03/23/2019) TAKE 2 TABLETS BY MOUTH TWO TIMES DAILY 1 refill remaining * Loratadine 10 MG Take 10 mg by mouth at bedtime * Multiple Vitamins-Minerals (MULTIVITAMIN ADULT PO) Take 1 tablet by mouth 2 times daily * Methylcobalamin 1 MG Take 1 tablet by mouth once daily * losartan (Cozaar) 25 MG tablet(Started 04/24/2022) Take 1 (one) tablet by mouth once daily * cyclobenzaprine (Flexeril) 10 MG tablet(Started 07/19/2022) Take 1 (one) tablet by mouth as needed * amLODIPine (Norvasc) 10 MG tablet(Started 02/13/2024) TAKE 1 TABLET BY MOUTH ONCE DAILY 2 refills by 02/12/2025 * doxazosin (Cardura) 8 MG tablet(Started 07/30/2024) TAKE 1 TABLET BY MOUTH AT BEDTIME 3 refills by 07/30/2025 * carvedilol (Coreg) 25 MG tablet(Started 07/30/2024) TAKE 1 TABLET BY MOUTH TWICE DAILY WITH MORNING AND EVENING MEALS 3 refills by 07/30/2025 * tacrolimus (Prograf) 1 MG capsule(Started 09/14/2024) Take 1 (one) capsule by mouth 2 times daily Fill with Prograf generic equivalent Reasons: Liver Transplant Recipient 3 refills by 09/14/2025 Ended Medications* tacrolimus (Prograf) 1 MG capsule(Started 11/28/2023) (Discontinued) Take 1 (one) capsule by mouth 2 times daily Fill with Prograf generic equivalent Reasons: Liver Transplant Recipient 3 refills by 11/27/2024 Active Problems Problem Noted Date Diagnosed Date 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 Xerosis cutis 03/05/2023 Rash and other nonspecific skin eruption 021 Multiple benign melanocytic nevi of upper extremity, lower extremity, and trunk 11/04/2020 Lentigines 11/04/2020 Other specified dermatitis 11/04/2020 Seborrheic keratosis 11/04/2020 Neutropenia 10/28/2020 History of hepatocellular carcinoma 11/20/2018 Long-term use of immunosuppressant medication Benign essential HTN 08/28/2018 IPMN (intraductal papillary mucinous neoplasm) 0 05/23/2018 Fatty pancreas 05/08/2018 Right inguinal hernia 05/08/2018 Diabetes mellitus type 2, uncontrolled 8 Pre-transplant evaluation for liver transplant 0 12/23/2017 S/P liver transplant 11/13/2017 Type 2 diabetes mellitus with hyperglycemia 10/11 [...] 12/23/2017 Hypo-osmolality and hyponatremia 09/12/2015 12/23/2017 Immunizations * [employer] primary monovalent 12+ yr 0.3mL Purple cap(Given 11/29/2020, 11/04/2020) * INFLUENZA VACCINE, ADJUVANTED, QUADR. (FLUAD QUADRIVALENT; 65Y+) (AIIV4)(Given 05/31/2023) * INFLUENZA VACCINE, QUADR. 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 Last Filed Vital Signs Vital Sign Reading Time Taken Comments Blood Pressure 137/83 07/21/2024 1:48 PM SALES ACTIVITY MANAGER Pulse 74 07/21/2024 1:48 PM SALES ACTIVITY MANAGER Temperature 36.4 ??C (97.5 ??F) 05/31/2023 1:01 PM CD T Respiratory Rate 18 07/21/2024 1:48 PM SALES ACTIVITY MANAGER Oxygen Saturation 99% 07/21/2024 1:48 PM SALES ACTIVITY MANAGER Inhaled Oxygen Concentration - - Weight 93.7 kg (206 lb 9.6 oz) 07/21/2024 1:48 P M SALES [employer]IV[employer] MANAGER Height 182.9 cm (6') 07/21/2024 1:48 PM SALES ACTIVITY MANAGER Body Mass Index 28.02 07/21/2024 1:48 PM SALES ACTIVITY MANAGER Procedures * TACROLIMUS LEVEL(Performed 07/15/2024) Performed for Long-term use of immunosuppressant medication, S/P liver transplant (HCC) * COMPREHENSIVE METABOLIC PANEL(Performed 07/15/2024) Performed for Long-term use of immunosuppressant medication, S/P liver transplant (HCC) * CBC W AUTO DIFFERENTIAL(Performed 07/15/2024) Performed for Long-term use of immunosuppressant medication, S/P liver transplant (HCC) * DIFFERENTIAL MANUAL REFLXED III(Performed 02/12/2024) * TACROLIMUS LEVEL(Performed 02/12/2024) Performed for Long-term use of immunosuppressant medication, S/P liver transplant (HCC) * COMPREHENSIVE METABOLIC PANEL(Performed 02/12/2024) Performed for Long-term use of immunosuppressant medication, S/P liver transplant (HCC) * CBC W AUTO DIFFERENTIAL(Performed 02/12/2024) Performed for Long-term use of immunosuppressant medication, S/P liver transplant (HCC) * MRI ABDOMEN W MRCP WWO CONT W3D(Performed 12/06/2023) Performed for Benign essential HTN, S/P liver transplant (HCC), Long-term use of immunosuppressant medication, IPMN (intraductal papillary mucinous neoplasm) * TACROLIMUS LEVEL(Performed 11/12/2023) * CBC W AUTO DIFFERENTIAL(Performed 11/12/2023) * COMPREHENSIVE METABOLIC PANEL(Performed 11/12/2023) * LIPID PROFILE(Performed 05/22/2023) * TACROLIMUS LEVEL(Performed 05/22/2023) Performed for S/P liver transplant (HCC), Long-term use of immunosuppressant medication, Benign essential HTN, IPMN (intraductal papillary mucinous neoplasm) * COMPREHENSIVE METABOLIC PANEL(Performed 05/22/2023) Performed for S/P liver transplant (HCC), Long-term use of immunosuppressant medication, Benign essential HTN, IPMN (intraductal papillary mucinous neoplasm) * CBC W AUTO DIFFERENTIAL(Performed 05/22/2023) Performed for S/P liver transplant (HCC), Long-term use of immunosuppressant medication, Benign essential HTN, IPMN (intraductal papillary mucinous neoplasm) * TACROLIMUS LEVEL(Performed 03/18/2023) * CBC W AUTO DIFFERENTIAL(Performed 03/18/2023) * COMPREHENSIVE METABOLIC PANEL(Performed 03/18/2023) * TACROLIMUS LEVEL(Performed 12/15/2022) * CBC W AUTO DIFFERENTIAL(Performed 12/15/2022) * COMPREHENSIVE METABOLIC PANEL(Performed 12/15/2022) * LIPID PROFILE(Performed 12/15/2022) * MRI ABDOMEN WWO CONTRAST(Performed 10/18/2022) Performed for S/P liver transplant (HCC), Long-term use of immunosuppressant medication, IPMN (intraductal papillary mucinous neoplasm), Benign essential HTN, History of hepatocellular carcinoma * CT CHEST WO CONTRAST(Performed 10/18/2022) Performed for S/P liver transplant (HCC), Long-term use of immunosuppressant medication, IPMN (intraductal papillary mucinous neoplasm), Benign essential HTN, History of hepatocellular carcinoma * TACROLIMUS LEVEL(Performed 09/18/2022) * CBC W AUTO DIFFERENTIAL(Performed 09/18/2022) * COMPREHENSIVE METABOLIC PANEL(Performed 09/18/2022) * TACROLIMUS LEVEL(Performed 07/20/2022) * CBC W AUTO DIFFERENTIAL(Performed 07/20/2022) * COMPREHENSIVE METABOLIC PANEL(Performed 07/20/2022) * TACROLIMUS LEVEL(Performed 04/19/2022) * PLATELET ESTIMATE REFLEXED(Performed 04/19/2022) * CBC W AUTO DIFFERENTIAL(Performed 04/19/2022) * COMPREHENSIVE METABOLIC PANEL(Performed 04/19/2022) * TACROLIMUS LEVEL(Performed 02/16/2022) Performed for S/P liver transplant (HCC), IPMN (intraductal papillary mucinous neoplasm), Long-termuse of immunosuppressant medication, History of hepatocellular carcinoma, Benign essential HTN * COMPREHENSIVE METABOLIC PANEL(Performed 02/16/2022) Performed for S/P liver transplant (HCC), IPMN (intraductal papillary mucinous neoplasm), Long-termuse of immunosuppressant medication, History of hepatocellular carcinoma, Benign essential HTN * CBC W AUTO DIFFERENTIAL(Performed 02/16/2022) Performed for S/P liver transplant (HCC), IPMN (intraductal papillary mucinous neoplasm), Long-termuse of immunosuppressant medication, History of hepatocellular carcinoma, Benign essential HTN * TACROLIMUS LEVEL(Performed 12/18/2021) Performed for S/P liver transplant (HCC), IPMN (intraductal papillary mucinous neoplasm), Long-termuse of immunosuppressant medication, History of hepatocellular carcinoma, Benign essential HTN * COMPREHENSIVE METABOLIC PANEL(Performed 12/18/2021) Performed for S/P liver transplant (HCC), IPMN (intraductal papillary mucinous neoplasm), Long-termuse of immunosuppressant medication, History of hepatocellular carcinoma, Benign essential HTN * CBC W AUTO DIFFERENTIAL(Performed 12/18/2021) Performed for S/P liver transplant (HCC), IPMN (intraductal papillary mucinous neoplasm), Long-termuse of immunosuppressant medication, History of hepatocellular carcinoma, Benign essential HTN * COMPREHENSIVE METABOLIC PANEL(Performed 10/17/2021) Performed for Benign essential HTN, IPMN (intraductal papillary mucinous neoplasm), Long-term use of immunosuppressant medication, History of hepatocellular carcinoma, S/P liver transplant (HCC) * CBC W AUTO DIFFERENTIAL(Performed 10/17/2021) Performed for Benign essential HTN, IPMN (intraductal papillary mucinous neoplasm), Long-term use of immunosuppressant medication, History of hepatocellular carcinoma, S/P liver transplant (HCC) * TACROLIMUS LEVEL(Performed 10/17/2021) Performed for Benign essential HTN, IPMN (intraductal papillary mucinous neoplasm), Long-term use of immunosuppressant medication, History of hepatocellular carcinoma, S/P liver transplant (HCC) * MRI ABDOMEN WWO CONTRAST(Performed 10/17/2021) Performed for Benign essential HTN, IPMN (intraductal papillary mucinous neoplasm), History of hepatocellular carcinoma, S/P liver transplant (HCC) * CREATININE - POCT INTERFACED(Performed 10/17/2021) * CT CHEST WO CONTRAST(Performed 10/17/2021) Performed for Benign essential HTN, IPMN (intraductal papillary mucinous neoplasm), History of hepatocellular carcinoma, S/P liver transplant (HCC) * TACROLIMUS LEVEL(Performed 08/15/2021) * CBC W AUTO DIFFERENTIAL(Performed 08/15/2021) * COMPREHENSIVE METABOLIC PANEL(Performed 08/15/2021) * TACROLIMUS LEVEL(Performed 06/19/2021) * CBC W AUTO DIFFERENTIAL(Performed 06/19/2021) * COMPREHENSIVE METABOLIC PANEL(Performed 06/19/2021) * LIPID PROFILE(Performed 06/19/2021) * PLATELET ESTIMATE REFLEXED(Performed 04/12/2021) * MAGNESIUM BLOOD(Performed 04/12/2021) Performed for S/P liver transplant (HCC), Immunosuppressed status (HCC) * BASIC METABOLIC PANEL (CALCIUM TOTAL)(Performed 04/12/2021) Performed for S/P liver transplant (HCC), Immunosuppressed status (HCC) * HEPATIC FUNCTION PANEL(Performed 04/12/2021) Performed for S/P liver transplant (HCC), Immunosuppressed status (HCC) * CBC W AUTO DIFFERENTIAL(Performed 04/12/2021) Performed for S/P liver transplant (HCC), Immunosuppressed status (HCC) * TACROLIMUS LEVEL(Performed 04/12/2021) Performed for S/P liver transplant (HCC), Immunosuppressed status (HCC) * MAGNESIUM BLOOD(Performed 02/28/2021) Performed for S/P liver transplant (HCC), Immunosuppressed status (HCC) * BASIC METABOLIC PANEL (CALCIUM TOTAL)(Performed 02/28/2021) Performed for S/P liver transplant (HCC), Immunosuppressed status (HCC) * HEPATIC FUNCTION PANEL(Performed 02/28/2021) Performed for S/P liver transplant (HCC), Immunosuppressed status (HCC) * CBC W AUTO DIFFERENTIAL(Performed 02/28/2021) Performed for S/P liver transplant (HCC), Immunosuppressed status (HCC) * TACROLIMUS LEVEL(Performed 02/28/2021) Performed for S/P liver transplant (HCC), Immunosuppressed status (HCC) * MRI ABDOMEN WWO CONTRAST(Performed 01/18/2021) Performed for S/P liver transplant (HCC), Immunosuppressed status (HCC), Therapeutic drug monitoring * CREATININE - POCT INTERFACED(Performed 01/18/2021) * CT CHEST WO CONTRAST(Performed 01/18/2021) Performed for S/P liver transplant (HCC), Immunosuppressed status (HCC), Therapeutic drug monitoring * DIFFERENTIAL MANUAL REFLXED III(Performed 12/13/2020) * MAGNESIUM BLOOD(Performed 12/13/2020) Performed for S/P liver transplant (HCC), Immunosuppressed status (HCC) * BASIC METABOLIC PANEL (CALCIUM TOTAL)(Performed 12/13/2020) Performed for S/P liver transplant (HCC), Immunosuppressed status (HCC) * HEPATIC FUNCTION PANEL(Performed 12/13/2020) Performed for S/P liver transplant (HCC), Immunosuppressed status (HCC) * CBC W AUTO DIFFERENTIAL(Performed 12/13/2020) Performed for S/P liver transplant (HCC), Immunosuppressed status (HCC) * TACROLIMUS LEVEL(Performed 12/13/2020) Performed for S/P liver transplant (HCC), Immunosuppressed status (HCC) * DEXA BONE DENSITY AXIAL SKELETON(Performed 11/16/2020) Performed for Compression fracture of lumbar vertebra with routine healing, unspecified lumbar vertebral level, subsequent encounter, S/P liver transplant (HCC), Immunosuppressed status (HCC), Type 2diabetes mellitus with hyperglycemia, with long-term current use of insulin (HCC), Closed wedge comp ression fracture of lumbar vertebra with routine healing, unspecified lumbar vertebral level, subsequent encounter, Osteoporosis screening * CT FACIAL BONES WO CONTRAST(Performed 11/16/2020) Performed for Fall, initial encounter * CT HEAD WO CONTRAST(Performed 11/16/2020) Performed for Fall, initial encounter * ED LACERATION REPAIR(Performed 11/16/2020) Performed for Fall, initial encounter, Laceration of right eyebrow, initial encounter * PLATELET ESTIMATE REFLEXED(Performed 10/27/2020) * MAGNESIUM BLOOD(Performed 10/27/2020) Performed for S/P liver transplant (HCC), Immunosuppressed status (HCC) * BASIC METABOLIC PANEL (CALCIUM TOTAL)(Performed 10/27/2020) Performed for S/P liver transplant (HCC), Immunosuppressed status (HCC) * HEPATIC FUNCTION PANEL(Performed 10/27/2020) Performed for S/P liver transplant (HCC), Immunosuppressed status (HCC) * CBC W AUTO DIFFERENTIAL(Performed 10/27/2020) Performed for S/P liver transplant (HCC), Immunosuppressed status (HCC) * TACROLIMUS LEVEL(Performed 10/27/2020) Performed for S/P liver transplant (HCC), Immunosuppressed status (HCC) * TACROLIMUS LEVEL(Performed 09/20/2020) * PLATELET ESTIMATE REFLEXED(Performed 09/20/2020) * CBC W AUTO DIFFERENTIAL(Performed 09/20/2020) * HEPATIC FUNCTION PANEL(Performed 09/20/2020) * BASIC METABOLIC PANEL (CALCIUM TOTAL)(Performed 09/20/2020) * CBC W/O DIFFERENTIAL(Performed 08/18/2020) * MAGNESIUM BLOOD(Performed 08/18/2020) Performed for S/P liver transplant (HCC), Immunosuppressed status (HCC), Therapeutic drug monitoring * BASIC METABOLIC PANEL (CALCIUM TOTAL)(Performed 08/18/2020) Performed for S/P liver transplant (HCC), Immunosuppressed status (HCC), Therapeutic drug monitoring * HEPATIC FUNCTION PANEL(Performed 08/18/2020) Performed for S/P liver transplant (HCC), Immunosuppressed status (HCC), Therapeutic drug monitoring * TACROLIMUS LEVEL(Performed 08/18/2020) Performed for S/P liver transplant (HCC), Immunosuppressed status (HCC), Therapeutic drug monitoring * MRI ABDOMEN WWO CONTRAST(Performed 07/21/2020) Performed for S/P liver transplant (HCC), Immunosuppressed status (HCC), History of hepatocellular carcinoma * MAGNESIUM BLOOD(Performed 07/19/2020) Performed for S/P liver transplant (HCC), Immunosuppressed status (HCC), Therapeutic drug monitoring * BASIC METABOLIC PANEL (CALCIUM TOTAL)(Performed 07/19/2020) Performed for S/P liver transplant (HCC), Immunosuppressed status (HCC), Therapeutic drug monitoring * HEPATIC FUNCTION PANEL(Performed 07/19/2020) Performed for S/P liver transplant (HCC), Immunosuppressed status (HCC), Therapeutic drug monitoring * CBC W AUTO DIFFERENTIAL(Performed 07/19/2020) Performed for S/P liver transplant (HCC), Immunosuppressed status (HCC), Therapeutic drug monitoring * TACROLIMUS LEVEL(Performed 07/19/2020) Performed for S/P liver transplant (HCC), Immunosuppressed status (HCC), Therapeutic drug monitoring * MAGNESIUM BLOOD(Performed 06/15/2020) Performed for S/P liver transplant (HCC), Immunosuppressed status (HCC), Therapeutic drug monitoring * BASIC METABOLIC PANEL (CALCIUM TOTAL)(Performed 06/15/2020) Performed for S/P liver transplant (HCC), Immunosuppressed status (HCC), Therapeutic drug monitoring * HEPATIC FUNCTION PANEL(Performed 06/15/2020) Performed for S/P liver transplant (HCC), Immunosuppressed status (HCC), Therapeutic drug monitoring * CBC W AUTO DIFFERENTIAL(Performed 06/15/2020) Performed for S/P liver transplant (HCC), Immunosuppressed status (HCC), Therapeutic drug monitoring * TACROLIMUS LEVEL(Performed 06/15/2020) Performed for S/P liver transplant (HCC), Immunosuppressed status (HCC), Therapeutic drug monitoring * MAGNESIUM BLOOD(Performed 05/18/2020) Performed for S/P liver transplant (HCC), Immunosuppressed status (HCC), Therapeutic drug monitoring * BASIC METABOLIC PANEL (CALCIUM TOTAL)(Performed 05/18/2020) Performed for S/P liver transplant (HCC), Immunosuppressed status (HCC), Therapeutic drug monitoring * HEPATIC FUNCTION PANEL(Performed 05/18/2020) Performed for S/P liver transplant (HCC), Immunosuppressed status (HCC), Therapeutic drug monitoring * CBC W AUTO DIFFERENTIAL(Performed 05/18/2020) Performed for S/P liver transplant (HCC), Immunosuppressed status (HCC), Therapeutic drug monitoring * TACROLIMUS LEVEL(Performed 05/18/2020) Performed for S/P liver transplant (HCC), Immunosuppressed status (HCC), Therapeutic drug monitoring * PATHOLOGY TISSUE(Performed 04/04/2020) Performed for S/P liver transplant (HCC), Immunosuppressed status (HCC), Encounter for screening colonoscopy * COLONOSCOPY SCREEN(Performed 04/04/2020) Performed for S/P liver transplant (HCC), Immunosuppressed status (HCC), Encounter for screening colonoscopy * ENDOSCOPY, COLON, SCREENING(Performed 04/04/2020) * GLUCOSE - POINT OF CARE(Performed 04/04/2020) * HEMOGLOBIN A1C(Performed 03/14/2020) * TACROLIMUS LEVEL(Performed 03/14/2020) * CBC W AUTO DIFFERENTIAL(Performed 03/14/2020) * HEPATIC FUNCTION PANEL(Performed 03/14/2020) * BASIC METABOLIC PANEL (CALCIUM TOTAL)(Performed 03/14/2020) * TACROLIMUS LEVEL(Performed 02/08/2020) * HEMOGLOBIN A1C(Performed 02/08/2020) * PLATELET ESTIMATE REFLEXED(Performed 02/08/2020) * CBC W AUTO DIFFERENTIAL(Performed 02/08/2020) * HEPATIC FUNCTION PANEL(Performed 02/08/2020) * BASIC METABOLIC PANEL (CALCIUM TOTAL)(Performed 02/08/2020) * LIPID PROFILE(Performed 02/08/2020) Performed for S/P liver transplant (HCC), Immunosuppressed status (HCC), History of hepatocellular carcinoma, Uncontrolled type 2 diabetes mellitus with hyperglycemia (HCC), Benign essential HTN * MRI ABDOMEN WWO CONTRAST(Performed 01/14/2020) Performed for S/P liver transplant (HCC), Immunosuppressed status (HCC), History of hepatocellular carcinoma * CT CHEST WO CONTRAST(Performed 01/14/2020) Performed for S/P liver transplant (HCC), Immunosuppressed status (HCC), History of hepatocellular carcinoma * HEMOGLOBIN A1C(Performed 12/22/2019) * PLATELET ESTIMATE REFLEXED(Performed 12/22/2019) * MAGNESIUM BLOOD(Performed 12/22/2019) Performed for S/P liver transplant (HCC), Immunosuppressed status (HCC), Therapeutic drug monitoring * BASIC METABOLIC PANEL (CALCIUM TOTAL)(Performed 12/22/2019) Performed for S/P liver transplant (HCC), Immunosuppressed status (HCC), Therapeutic drug monitoring * HEPATIC FUNCTION PANEL(Performed 12/22/2019) Performed for S/P liver transplant (HCC), Immunosuppressed status (HCC), Therapeutic drug monitoring * CBC W AUTO DIFFERENTIAL(Performed 12/22/2019) Performed for S/P liver transplant (HCC), Immunosuppressed status (HCC), Therapeutic drug monitoring * TACROLIMUS LEVEL(Performed 12/22/2019) Performed for S/P liver transplant (HCC), Immunosuppressed status (HCC), Therapeutic drug monitoring * HEMOGLOBIN A1C(Performed 11/16/2019) * PLATELET ESTIMATE REFLEXED(Performed 11/16/2019) * MAGNESIUM BLOOD(Performed 11/16/2019) Performed for S/P liver transplant (HCC), Immunosuppressed status (HCC), Therapeutic drug monitoring * BASIC METABOLIC PANEL (CALCIUM TOTAL)(Performed 11/16/2019) Performed for S/P liver transplant (HCC), Immunosuppressed status (HCC), Therapeutic drug monitoring * HEPATIC FUNCTION PANEL(Performed 11/16/2019) Performed for S/P liver transplant (HCC), Immunosuppressed status (HCC), Therapeutic drug monitoring * CBC W AUTO DIFFERENTIAL(Performed 11/16/2019) Performed for S/P liver transplant (HCC), Immunosuppressed status (HCC), Therapeutic drug monitoring * TACROLIMUS LEVEL(Performed 11/16/2019) Performed for S/P liver transplant (HCC), Immunosuppressed status (HCC), Therapeutic drug monitoring * MRI ABDOMEN WWO CONTRAST(Performed 10/13/2019) Performed for S/P liver transplant (HCC), History of hepatocellular carcinoma * CT CHEST WO CONTRAST(Performed 10/13/2019) Performed for S/P liver transplant (HCC), History of hepatocellular carcinoma * PLATELET ESTIMATE REFLEXED(Performed 10/12/2019) * MAGNESIUM BLOOD(Performed 10/12/2019) Performed for S/P liver transplant (HCC), Immunosuppressed status (HCC), Therapeutic drug monitoring * BASIC METABOLIC PANEL (CALCIUM TOTAL)(Performed 10/12/2019) Performed for S/P liver transplant (HCC), Immunosuppressed status (HCC), Therapeutic drug monitoring * HEPATIC FUNCTION PANEL(Performed 10/12/2019) Performed for S/P liver transplant (HCC), Immunosuppressed status (HCC), Therapeutic drug monitoring * CBC W AUTO DIFFERENTIAL(Performed 10/12/2019) Performed for S/P liver transplant (HCC), Immunosuppressed status (HCC), Therapeutic drug monitoring * TACROLIMUS LEVEL(Performed 10/12/2019) Performed for S/P liver transplant (HCC), Immunosuppressed status (HCC), Therapeutic drug monitoring * PLATELET ESTIMATE REFLEXED(Performed 09/21/2019) * MAGNESIUM BLOOD(Performed 09/21/2019) Performed for S/P liver transplant (HCC), Immunosuppressed status (HCC), Therapeutic drug monitoring * BASIC METABOLIC PANEL (CALCIUM TOTAL)(Performed 09/21/2019) Performed for S/P liver transplant (HCC), Immunosuppressed status (HCC), Therapeutic drug monitoring * HEPATIC FUNCTION PANEL(Performed 09/21/2019) Performed for S/P liver transplant (HCC), Immunosuppressed status (HCC), Therapeutic drug monitoring * CBC W AUTO DIFFERENTIAL(Performed 09/21/2019) Performed for S/P liver transplant (HCC), Immunosuppressed status (HCC), Therapeutic drug monitoring * TACROLIMUS LEVEL(Performed 09/21/2019) Performed for S/P liver transplant (HCC), Immunosuppressed status (HCC), Therapeutic drug monitoring * MAGNESIUM BLOOD(Performed 08/31/2019) Performed for S/P liver transplant (HCC), Immunosuppressed status (HCC), Therapeutic drug monitoring * BASIC METABOLIC PANEL (CALCIUM TOTAL)(Performed 08/31/2019) Performed for S/P liver transplant (HCC), Immunosuppressed status (HCC), Therapeutic drug monitoring * HEPATIC FUNCTION PANEL(Performed 08/31/2019) Performed for S/P liver transplant (HCC), Immunosuppressed status (HCC), Therapeutic drug monitoring * CBC W AUTO DIFFERENTIAL(Performed 08/31/2019) Performed for S/P liver transplant (HCC), Immunosuppressed status (HCC), Therapeutic drug monitoring * TACROLIMUS LEVEL(Performed 08/31/2019) Performed for S/P liver transplant (HCC), Immunosuppressed status (HCC), Therapeutic drug monitoring * TACROLIMUS LEVEL(Performed 08/11/2019) * PLATELET ESTIMATE REFLEXED(Performed 08/11/2019) * CBC W AUTO DIFFERENTIAL(Performed 08/11/2019) * HEPATIC FUNCTION PANEL(Performed 08/11/2019) * BASIC METABOLIC PANEL (CALCIUM TOTAL)(Performed 08/11/2019) * PLATELET ESTIMATE REFLEXED(Performed 07/24/2019) * MAGNESIUM BLOOD(Performed 07/24/2019) Performed for S/P liver transplant (HCC), Immunosuppressed status (HCC), Therapeutic drug monitoring * BASIC METABOLIC PANEL (CALCIUM TOTAL)(Performed 07/24/2019) Performed for S/P liver transplant (HCC), Immunosuppressed status (HCC), Therapeutic drug monitoring * HEPATIC FUNCTION PANEL(Performed 07/24/2019) Performed for S/P liver transplant (HCC), Immunosuppressed status (HCC), Therapeutic drug monitoring * CBC W AUTO DIFFERENTIAL(Performed 07/24/2019) Performed for S/P liver transplant (HCC), Immunosuppressed status (HCC), Therapeutic drug monitoring * TACROLIMUS LEVEL(Performed 07/24/2019) Performed for S/P liver transplant (HCC), Immunosuppressed status (HCC), Therapeutic drug monitoring * TACROLIMUS LEVEL(Performed 07/17/2019) * CBC W AUTO DIFFERENTIAL(Performed 07/17/2019) * COMPREHENSIVE METABOLIC PANEL(Performed 06/19/2019) Performed for S/P liver transplant (HCC), Immunosuppressed status (HCC), Therapeutic drug monitoring * CBC W AUTO DIFFERENTIAL(Performed 06/19/2019) Performed for S/P liver transplant (HCC), Immunosuppressed status (HCC), Therapeutic drug monitoring * TACROLIMUS LEVEL(Performed 06/19/2019) Performed for S/P liver transplant (HCC), Immunosuppressed status (HCC), Therapeutic drug monitoring * DIFFERENTIAL MANUAL REFLXED III(Performed 05/18/2019) * COMPREHENSIVE METABOLIC PANEL(Performed 05/18/2019) Performed for S/P liver transplant (HCC), Immunosuppressed status (HCC), Therapeutic drug monitoring * CBC W AUTO DIFFERENTIAL(Performed 05/18/2019) Performed for S/P liver transplant (HCC), Immunosuppressed status (HCC), Therapeutic drug monitoring * TACROLIMUS LEVEL(Performed 05/18/2019) Performed for S/P liver transplant (HCC), Immunosuppressed status (HCC), Therapeutic drug monitoring * MRI ABDOMEN WWO CONTRAST(Performed 04/14/2019) Performed for S/P liver transplant (HCC), History of hepatocellular carcinoma * COMPREHENSIVE METABOLIC PANEL(Performed 04/09/2019) Performed for S/P liver transplant (HCC), Immunosuppressed status (HCC), Therapeutic drug monitoring * CBC W AUTO DIFFERENTIAL(Performed 04/09/2019) Performed for S/P liver transplant (HCC), Immunosuppressed status (HCC), Therapeutic drug monitoring * TACROLIMUS LEVEL(Performed 04/09/2019) Performed for S/P liver transplant (HCC), Immunosuppressed status (HCC), Therapeutic drug monitoring * COMPREHENSIVE METABOLIC PANEL(Performed 03/10/2019) Performed for S/P liver transplant (HCC), Immunosuppressed status (HCC), Therapeutic drug monitoring * CBC W AUTO DIFFERENTIAL(Performed 03/10/2019) Performed for S/P liver transplant (HCC), Immunosuppressed status (HCC), Therapeutic drug monitoring * TACROLIMUS LEVEL(Performed 03/10/2019) Performed for S/P liver transplant (HCC), Immunosuppressed status (HCC), Therapeutic drug monitoring * PLATELET ESTIMATION(Performed 02/16/2019) * COMPREHENSIVE METABOLIC PANEL(Performed 02/16/2019) Performed for S/P liver transplant (HCC), Immunosuppressed status (HCC), Therapeutic drug monitoring * CBC W AUTO DIFFERENTIAL(Performed 02/16/2019) Performed for S/P liver transplant (HCC), Immunosuppressed status (HCC), Therapeutic drug monitoring * TACROLIMUS LEVEL(Performed 02/16/2019) Performed for S/P liver transplant (HCC), Immunosuppressed status (HCC), Therapeutic drug monitoring * TACROLIMUS LEVEL(Performed 01/13/2019) * PLATELET ESTIMATE REFLEXED(Performed 01/13/2019) * CBC W AUTO DIFFERENTIAL(Performed 01/13/2019) * HEPATIC FUNCTION PANEL(Performed 01/13/2019) * BASIC METABOLIC PANEL (CALCIUM TOTAL)(Performed 01/13/2019) * TACROLIMUS LEVEL(Performed 12/09/2018) * PLATELET ESTIMATE REFLEXED(Performed 12/09/2018) * CBC W AUTO DIFFERENTIAL(Performed 12/09/2018) * HEPATIC FUNCTION PANEL(Performed 12/09/2018) * BASIC METABOLIC PANEL (CALCIUM TOTAL)(Performed 12/09/2018) * MAGNESIUM BLOOD(Performed 12/09/2018) * COLONOSCOPY DIAGNOSTIC(Performed 12/08/2018) Performed for Colon cancer screening, S/P liver transplant (HCC), Immunosuppressed status (HCC) * ENDOSCOPY, COLON, SCREENING(Performed 12/08/2018) * GLUCOSE - POINT OF CARE(Performed 12/08/2018) * TACROLIMUS LEVEL(Performed 11/24/2018) * PLATELET ESTIMATE REFLEXED(Performed 11/24/2018) * CBC W AUTO DIFFERENTIAL(Performed 11/24/2018) * HEPATIC FUNCTION PANEL(Performed 11/24/2018) * BASIC METABOLIC PANEL (CALCIUM TOTAL)(Performed 11/24/2018) * PHOSPHORUS BLOOD(Performed 11/24/2018) * MAGNESIUM BLOOD(Performed 11/24/2018) * TACROLIMUS LEVEL(Performed 11/10/2018) * SLIDE SCAN HEMATOLOGY(Performed 11/10/2018) * CBC W AUTO DIFFERENTIAL(Performed 11/10/2018) * HEPATIC FUNCTION PANEL(Performed 11/10/2018) * BASIC METABOLIC PANEL (CALCIUM TOTAL)(Performed 11/10/2018) * MAGNESIUM BLOOD(Performed 11/10/2018) * HEMOGLOBIN A1C(Performed 10/27/2018) * LIPID PROFILE(Performed 10/27/2018) * PLATELET ESTIMATE REFLEXED(Performed 10/27/2018) * PHOSPHORUS BLOOD(Performed 10/27/2018) Performed for S/P liver transplant (HCC) * MAGNESIUM BLOOD(Performed 10/27/2018) Performed for S/P liver transplant (HCC) * BASIC METABOLIC PANEL (CALCIUM TOTAL)(Performed 10/27/2018) Performed for S/P liver transplant (HCC) * HEPATIC FUNCTION PANEL(Performed 10/27/2018) Performed for S/P liver transplant (HCC) * CBC W AUTO DIFFERENTIAL(Performed 10/27/2018) Performed for S/P liver transplant (HCC) * TACROLIMUS LEVEL(Performed 10/27/2018) Performed for S/P liver transplant (HCC) * CT CHEST WO CONTRAST(Performed 10/13/2018) Performed for S/P liver transplant (HCC), History of hepatocellular carcinoma * MRI ABDOMEN WWO CONTRAST(Performed 10/13/2018) Performed for S/P liver transplant (HCC), History of hepatocellular carcinoma * PLATELET ESTIMATE REFLEXED(Performed 10/13/2018) * CYTOMEGALOVIRUS QUANT BLOOD(Performed 10/13/2018) Performed for S/P liver transplant (HCC) * PHOSPHORUS BLOOD(Performed 10/13/2018) Performed for S/P liver transplant (HCC) * MAGNESIUM BLOOD(Performed 10/13/2018) Performed for S/P liver transplant (HCC) * BASIC METABOLIC PANEL (CALCIUM TOTAL)(Performed 10/13/2018) Performed for S/P liver transplant (HCC) * HEPATIC FUNCTION PANEL(Performed 10/13/2018) Performed for S/P liver transplant (HCC) * CBC W AUTO DIFFERENTIAL(Performed 10/13/2018) Performed for S/P liver transplant (HCC) * TACROLIMUS LEVEL(Performed 10/13/2018) Performed for S/P liver transplant (HCC) * PLATELET ESTIMATE REFLEXED(Performed 09/30/2018) * PHOSPHORUS BLOOD(Performed 09/30/2018) Performed for S/P liver transplant (HCC) * MAGNESIUM BLOOD(Performed 09/30/2018) Performed for S/P liver transplant (HCC) * BASIC METABOLIC PANEL (CALCIUM TOTAL)(Performed 09/30/2018) Performed for S/P liver transplant (HCC) * HEPATIC FUNCTION PANEL(Performed 09/30/2018) Performed for S/P liver transplant (HCC) * CBC W AUTO DIFFERENTIAL(Performed 09/30/2018) Performed for S/P liver transplant (HCC) * TACROLIMUS LEVEL(Performed 09/30/2018) Performed for S/P liver transplant (HCC) * PLATELET ESTIMATE REFLEXED(Performed 09/15/2018) * CYTOMEGALOVIRUS QUANT BLOOD(Performed 09/15/2018) Performed for S/P liver transplant (HCC) * PHOSPHORUS BLOOD(Performed 09/15/2018) Performed for S/P liver transplant (HCC) * MAGNESIUM BLOOD(Performed 09/15/2018) Performed for S/P liver transplant (HCC) * BASIC METABOLIC PANEL (CALCIUM TOTAL)(Performed 09/15/2018) Performed for S/P liver transplant (HCC) * HEPATIC FUNCTION PANEL(Performed 09/15/2018) Performed for S/P liver transplant (HCC) * CBC W AUTO DIFFERENTIAL(Performed 09/15/2018) Performed for S/P liver transplant (HCC) * TACROLIMUS LEVEL(Performed 09/15/2018) Performed for S/P liver transplant (HCC) * CBC W AUTO DIFFERENTIAL(Performed 09/03/2018) Performed for S/P liver transplant (HCC) * HEPATIC FUNCTION PANEL(Performed 09/03/2018) Performed for S/P liver transplant (HCC) * TACROLIMUS LEVEL(Performed 09/03/2018) Performed for S/P liver transplant (HCC) * BASIC METABOLIC PANEL (CALCIUM TOTAL)(Performed 09/03/2018) Performed for S/P liver transplant (HCC) * MAGNESIUM BLOOD(Performed 09/03/2018) Performed for S/P liver transplant (HCC) * PHOSPHORUS BLOOD(Performed 09/03/2018) Performed for S/P liver transplant (HCC) * PLATELET ESTIMATE REFLEXED(Performed 08/18/2018) * CYTOMEGALOVIRUS QUANT BLOOD(Performed 08/18/2018) Performed for S/P liver transplant (HCC) * PHOSPHORUS BLOOD(Performed 08/18/2018) Performed for S/P liver transplant (HCC) * MAGNESIUM BLOOD(Performed 08/18/2018) Performed for S/P liver transplant (HCC) * BASIC METABOLIC PANEL (CALCIUM TOTAL)(Performed 08/18/2018) Performed for S/P liver transplant (HCC) * HEPATIC FUNCTION PANEL(Performed 08/18/2018) Performed for S/P liver transplant (HCC) * CBC W AUTO DIFFERENTIAL(Performed 08/18/2018) Performed for S/P liver transplant (HCC) * TACROLIMUS LEVEL(Performed 08/18/2018) Performed for S/P liver transplant (HCC) * PLATELET ESTIMATE REFLEXED(Performed 08/04/2018) * PHOSPHORUS BLOOD(Performed 08/04/2018) Performed for S/P liver transplant (HCC) * MAGNESIUM BLOOD(Performed 08/04/2018) Performed for S/P liver transplant (HCC) * BASIC METABOLIC PANEL (CALCIUM TOTAL)(Performed 08/04/2018) Performed for S/P liver transplant (HCC) * HEPATIC FUNCTION PANEL(Performed 08/04/2018) Performed for S/P liver transplant (HCC) * CBC W AUTO DIFFERENTIAL(Performed 08/04/2018) Performed for S/P liver transplant (HCC) * TACROLIMUS LEVEL(Performed 08/04/2018) Performed for S/P liver transplant (HCC) * CYTOMEGALOVIRUS QUANT BLOOD(Performed 08/04/2018) Performed for S/P liver transplant (HCC) * TACROLIMUS LEVEL(Performed 07/21/2018) * CBC W AUTO DIFFERENTIAL(Performed 07/21/2018) * HEPATIC FUNCTION PANEL(Performed 07/21/2018) * BASIC METABOLIC PANEL (CALCIUM TOTAL)(Performed 07/21/2018) * PHOSPHORUS BLOOD(Performed 07/21/2018) * MAGNESIUM BLOOD(Performed 07/21/2018) * MRI ABDOMEN WWO CONTRAST(Performed 07/11/2018) Performed for S/P liver transplant (HCC), Immunosuppressed status (HCC), History of hepatocellular carcinoma * ALPHA FETOPROTEIN BLOOD TUMOR MARKER(Performed 07/07/2018) * PHOSPHORUS BLOOD(Performed 07/07/2018) Performed for S/P liver transplant (HCC) * MAGNESIUM BLOOD(Performed 07/07/2018) Performed for S/P liver transplant (HCC) * BASIC METABOLIC PANEL (CALCIUM TOTAL)(Performed 07/07/2018) Performed for S/P liver transplant (HCC) * HEPATIC FUNCTION PANEL(Performed 07/07/2018) Performed for S/P liver transplant (HCC) * CBC W AUTO DIFFERENTIAL(Performed 07/07/2018) Performed for S/P liver transplant (HCC) * TACROLIMUS LEVEL(Performed 07/07/2018) Performed for S/P liver transplant (HCC) * PLATELET ESTIMATE REFLEXED(Performed 06/23/2018) * CYTOMEGALOVIRUS QUANT BLOOD(Performed 06/23/2018) Performed for S/P liver transplant (HCC) * PHOSPHORUS BLOOD(Performed 06/23/2018) Performed for S/P liver transplant (HCC) * MAGNESIUM BLOOD(Performed 06/23/2018) Performed for S/P liver transplant (HCC) * BASIC METABOLIC PANEL (CALCIUM TOTAL)(Performed 06/23/2018) Performed for S/P liver transplant (HCC) * HEPATIC FUNCTION PANEL(Performed 06/23/2018) Performed for S/P liver transplant (HCC) * CBC W AUTO DIFFERENTIAL(Performed 06/23/2018) Performed for S/P liver transplant (HCC) * TACROLIMUS LEVEL(Performed 06/23/2018) Performed for S/P liver transplant (HCC) * SLIDE SCAN HEMATOLOGY(Performed 06/09/2018) * PHOSPHORUS BLOOD(Performed 06/09/2018) Performed for S/P liver transplant (HCC) * MAGNESIUM BLOOD(Performed 06/09/2018) Performed for S/P liver transplant (HCC) * BASIC METABOLIC PANEL (CALCIUM TOTAL)(Performed 06/09/2018) Performed for S/P liver transplant (HCC) * HEPATIC FUNCTION PANEL(Performed 06/09/2018) Performed for S/P liver transplant (HCC) * CBC W AUTO DIFFERENTIAL(Performed 06/09/2018) Performed for S/P liver transplant (HCC) * TACROLIMUS LEVEL(Performed 06/09/2018) Performed for S/P liver transplant (HCC) * PLATELET ESTIMATE REFLEXED(Performed 05/26/2018) * CYTOMEGALOVIRUS QUANT BLOOD(Performed 05/26/2018) Performed for S/P liver transplant (HCC) * PHOSPHORUS BLOOD(Performed 05/26/2018) Performed for S/P liver transplant (HCC) * MAGNESIUM BLOOD(Performed 05/26/2018) Performed for S/P liver transplant (HCC) * BASIC METABOLIC PANEL (CALCIUM TOTAL)(Performed 05/26/2018) Performed for S/P liver transplant (HCC) * HEPATIC FUNCTION PANEL(Performed 05/26/2018) Performed for S/P liver transplant (HCC) * CBC W AUTO DIFFERENTIAL(Performed 05/26/2018) Performed for S/P liver transplant (HCC) * TACROLIMUS LEVEL(Performed 05/26/2018) Performed for S/P liver transplant (HCC) * PLATELET ESTIMATE REFLEXED(Performed 05/13/2018) * PHOSPHORUS BLOOD(Performed 05/13/2018) Performed for S/P liver transplant (HCC), Immunosuppressed status (HCC), Therapeutic drug monitoring * MAGNESIUM BLOOD(Performed 05/13/2018) Performed for S/P liver transplant (HCC), Immunosuppressed status (HCC), Therapeutic drug monitoring * BASIC METABOLIC PANEL (CALCIUM TOTAL)(Performed 05/13/2018) Performed for S/P liver transplant (HCC), Immunosuppressed status (HCC), Therapeutic drug monitoring * HEPATIC FUNCTION PANEL(Performed 05/13/2018) Performed for S/P liver transplant (HCC), Immunosuppressed status (HCC), Therapeutic drug monitoring * CBC W AUTO DIFFERENTIAL(Performed 05/13/2018) Performed for S/P liver transplant (HCC), Immunosuppressed status (HCC), Therapeutic drug monitoring * TACROLIMUS LEVEL(Performed 05/13/2018) Performed for S/P liver transplant (HCC), Immunosuppressed status (HCC), Therapeutic drug monitoring * PHOSPHORUS BLOOD(Performed 04/28/2018) Performed for S/P liver transplant (HCC), Immunosuppressed status (HCC), Therapeutic drug monitoring * MAGNESIUM BLOOD(Performed 04/28/2018) Performed for S/P liver transplant (HCC), Immunosuppressed status (HCC), Therapeutic drug monitoring * BASIC METABOLIC PANEL (CALCIUM TOTAL)(Performed 04/28/2018) Performed for S/P liver transplant (HCC), Immunosuppressed status (HCC), Therapeutic drug monitoring * HEPATIC FUNCTION PANEL(Performed 04/28/2018) Performed for S/P liver transplant (HCC), Immunosuppressed status (HCC), Therapeutic drug monitoring * CBC W AUTO DIFFERENTIAL(Performed 04/28/2018) Performed for S/P liver transplant (HCC), Immunosuppressed status (HCC), Therapeutic drug monitoring * TACROLIMUS LEVEL(Performed 04/28/2018) Performed for S/P liver transplant (HCC), Immunosuppressed status (HCC), Therapeutic drug monitoring * CYTOMEGALOVIRUS QUANT BLOOD(Performed 04/14/2018) * PLATELET ESTIMATE REFLEXED(Performed 04/14/2018) * PHOSPHORUS BLOOD(Performed 04/14/2018) Performed for S/P liver transplant (HCC), Immunosuppressed status (HCC), Therapeutic drug monitoring * MAGNESIUM BLOOD(Performed 04/14/2018) Performed for S/P liver transplant (HCC), Immunosuppressed status (HCC), Therapeutic drug monitoring * BASIC METABOLIC PANEL (CALCIUM TOTAL)(Performed 04/14/2018) Performed for S/P liver transplant (HCC), Immunosuppressed status (HCC), Therapeutic drug monitoring * HEPATIC FUNCTION PANEL(Performed 04/14/2018) Performed for S/P liver transplant (HCC), Immunosuppressed status (HCC), Therapeutic drug monitoring * CBC W AUTO DIFFERENTIAL(Performed 04/14/2018) Performed for S/P liver transplant (HCC), Immunosuppressed status (HCC), Therapeutic drug monitoring * TACROLIMUS LEVEL(Performed 04/14/2018) Performed for S/P liver transplant (HCC), Immunosuppressed status (HCC), Therapeutic drug monitoring * TSH(Performed 04/14/2018) Performed for Excessive sweating, S/P liver transplant (HCC), Immunosuppressed status (HCC) * MRI ABDOMEN WWO CONTRAST(Performed 04/03/2018) Performed for S/P liver transplant (HCC), History of hepatocellular carcinoma * PHOSPHORUS BLOOD(Performed 03/31/2018) Performed for S/P liver transplant (HCC), Immunosuppressed status (HCC), Therapeutic drug monitoring * MAGNESIUM BLOOD(Performed 03/31/2018) Performed for S/P liver transplant (HCC), Immunosuppressed status (HCC), Therapeutic drug monitoring * BASIC METABOLIC PANEL (CALCIUM TOTAL)(Performed 03/31/2018) Performed for S/P liver transplant (HCC), Immunosuppressed status (HCC), Therapeutic drug monitoring * HEPATIC FUNCTION PANEL(Performed 03/31/2018) Performed for S/P liver transplant (HCC), Immunosuppressed status (HCC), Therapeutic drug monitoring * CBC W AUTO DIFFERENTIAL(Performed 03/31/2018) Performed for S/P liver transplant (HCC), Immunosuppressed status (HCC), Therapeutic drug monitoring * TACROLIMUS LEVEL(Performed 03/31/2018) Performed for S/P liver transplant (HCC), Immunosuppressed status (HCC), Therapeutic drug monitoring * TACROLIMUS LEVEL(Performed 03/31/2018) Performed for S/P liver transplant (HCC), Immunosuppressed status (HCC), Therapeutic drug monitoring * CYTOMEGALOVIRUS QUANT BLOOD(Performed 03/17/2018) * PLATELET ESTIMATE REFLEXED(Performed 03/17/2018) * PHOSPHORUS BLOOD(Performed 03/17/2018) Performed for S/P liver transplant (HCC), Immunosuppressed status (HCC), Therapeutic drug monitoring * BASIC METABOLIC PANEL (CALCIUM TOTAL)(Performed 03/17/2018) Performed for S/P liver transplant (HCC), Immunosuppressed status (HCC), Therapeutic drug monitoring * HEPATIC FUNCTION PANEL(Performed 03/17/2018) Performed for S/P liver transplant (HCC), Immunosuppressed status (HCC), Therapeutic drug monitoring * CBC W AUTO DIFFERENTIAL(Performed 03/17/2018) Performed for S/P liver transplant (HCC), Immunosuppressed status (HCC), Therapeutic drug monitoring * TACROLIMUS LEVEL(Performed 03/17/2018) Performed for S/P liver transplant (HCC), Immunosuppressed status (HCC), Therapeutic drug monitoring * MAGNESIUM BLOOD(Performed 03/17/2018) Performed for S/P liver transplant (HCC), Immunosuppressed status (HCC), Therapeutic drug monitoring * MAGNESIUM BLOOD(Performed 03/03/2018) Performed for S/P liver transplant (HCC), Immunosuppressed status (HCC), Therapeutic drug monitoring * TACROLIMUS LEVEL(Performed 03/03/2018) Performed for S/P liver transplant (HCC), Immunosuppressed status (HCC), Therapeutic drug monitoring * PLATELET ESTIMATE REFLEXED(Performed 03/03/2018) * PHOSPHORUS BLOOD(Performed 03/03/2018) Performed for S/P liver transplant (HCC), Immunosuppressed status (HCC), Therapeutic drug monitoring * MAGNESIUM BLOOD(Performed 03/03/2018) Performed for S/P liver transplant (HCC), Immunosuppressed status (HCC), Therapeutic drug monitoring * BASIC METABOLIC PANEL (CALCIUM TOTAL)(Performed 03/03/2018) Performed for S/P liver transplant (HCC), Immunosuppressed status (HCC), Therapeutic drug monitoring * HEPATIC FUNCTION PANEL(Performed 03/03/2018) Performed for S/P liver transplant (HCC), Immunosuppressed status (HCC), Therapeutic drug monitoring * CBC W AUTO DIFFERENTIAL(Performed 03/03/2018) Performed for S/P liver transplant (HCC), Immunosuppressed status (HCC), Therapeutic drug monitoring * CYTOMEGALOVIRUS DNA RT-PCR QUANT(Performed 03/03/2018) Performed for S/P liver transplant (HCC), Immunosuppressed status (HCC), Therapeutic drug monitoring * TACROLIMUS LEVEL(Performed 02/10/2018) Performed for S/P liver transplant (HCC), Immunosuppressed status (HCC), Therapeutic drug monitoring * PLATELET ESTIMATE REFLEXED(Performed 02/10/2018) * HEMOGLOBIN A1C(Performed 02/10/2018) Performed for Hyperglycemia, Uncontrolled type 2 diabetes mellitus with complication, with long-term current use of insulin * PHOSPHORUS BLOOD(Performed 02/10/2018) Performed for S/P liver transplant (HCC), Immunosuppressed status (HCC), Therapeutic drug monitoring * MAGNESIUM BLOOD(Performed 02/10/2018) Performed for S/P liver transplant (HCC), Immunosuppressed status (HCC), Therapeutic drug monitoring * BASIC METABOLIC PANEL (CALCIUM TOTAL)(Performed 02/10/2018) Performed for S/P liver transplant (HCC), Immunosuppressed status (HCC), Therapeutic drug monitoring * HEPATIC FUNCTION PANEL(Performed 02/10/2018) Performed for S/P liver transplant (HCC), Immunosuppressed status (HCC), Therapeutic drug monitoring * CBC W AUTO DIFFERENTIAL(Performed 02/10/2018) Performed for S/P liver transplant (HCC), Immunosuppressed status (HCC), Therapeutic drug monitoring * PHOSPHORUS BLOOD(Performed 02/05/2018) Performed for S/P liver transplant (HCC), Immunosuppressed status (HCC), Therapeutic drug monitoring * MAGNESIUM BLOOD(Performed 02/05/2018) Performed for S/P liver transplant (HCC), Immunosuppressed status (HCC), Therapeutic drug monitoring * BASIC METABOLIC PANEL (CALCIUM TOTAL)(Performed 02/05/2018) Performed for S/P liver transplant (HCC), Immunosuppressed status (HCC), Therapeutic drug monitoring * HEPATIC FUNCTION PANEL(Performed 02/05/2018) Performed for S/P liver transplant (HCC), Immunosuppressed status (HCC), Therapeutic drug monitoring * CBC W AUTO DIFFERENTIAL(Performed 02/05/2018) Performed for S/P liver transplant (HCC), Immunosuppressed status (HCC), Therapeutic drug monitoring * TACROLIMUS LEVEL(Performed 02/05/2018) Performed for S/P liver transplant (HCC), Immunosuppressed status (HCC), Therapeutic drug monitoring * TACROLIMUS LEVEL(Performed 01/27/2018) Performed for S/P liver transplant (HCC), Immunosuppressed status (HCC), Therapeutic drug monitoring * PLATELET ESTIMATE REFLEXED(Performed 01/27/2018) * CBC W AUTO DIFFERENTIAL(Performed 01/27/2018) Performed for S/P liver transplant (HCC), Immunosuppressed status (HCC), Therapeutic drug monitoring * HEPATIC FUNCTION PANEL(Performed 01/27/2018) Performed for S/P liver transplant (HCC), Immunosuppressed status (HCC), Therapeutic drug monitoring * BASIC METABOLIC PANEL (CALCIUM TOTAL)(Performed 01/27/2018) Performed for S/P liver transplant (HCC), Immunosuppressed status (HCC), Therapeutic drug monitoring * MAGNESIUM BLOOD(Performed 01/27/2018) Performed for S/P liver transplant (HCC), Immunosuppressed status (HCC), Therapeutic drug monitoring * PHOSPHORUS BLOOD(Performed 01/27/2018) Performed for S/P liver transplant (HCC), Immunosuppressed status (HCC), Therapeutic drug monitoring * PHOSPHORUS BLOOD(Performed 01/21/2018) Performed for S/P liver transplant (HCC) * MAGNESIUM BLOOD(Performed 01/21/2018) Performed for S/P liver transplant (HCC) * BASIC METABOLIC PANEL (CALCIUM TOTAL)(Performed 01/21/2018) Performed for S/P liver transplant (HCC) * HEPATIC FUNCTION PANEL(Performed 01/21/2018) Performed for S/P liver transplant (HCC) * CBC W AUTO DIFFERENTIAL(Performed 01/21/2018) Performed for S/P liver transplant (HCC) * TACROLIMUS LEVEL(Performed 01/21/2018) Performed for S/P liver transplant (HCC) * CYTOMEGALOVIRUS DNA RT-PCR QUANT(Performed 01/21/2018) Performed for S/P liver transplant (HCC) * PLATELET ESTIMATE REFLEXED(Performed 01/13/2018) * PHOSPHORUS BLOOD(Performed 01/13/2018) Performed for S/P liver transplant (HCC), Immunosuppressed status (HCC), Therapeutic drug monitoring * MAGNESIUM BLOOD(Performed 01/13/2018) Performed for S/P liver transplant (HCC), Immunosuppressed status (HCC), Therapeutic drug monitoring * BASIC METABOLIC PANEL (CALCIUM TOTAL)(Performed 01/13/2018) Performed for S/P liver transplant (HCC), Immunosuppressed status (HCC), Therapeutic drug monitoring * HEPATIC FUNCTION PANEL(Performed 01/13/2018) Performed for S/P liver transplant (HCC), Immunosuppressed status (HCC), Therapeutic drug monitoring * CBC W AUTO DIFFERENTIAL(Performed 01/13/2018) Performed for S/P liver transplant (HCC), Immunosuppressed status (HCC), Therapeutic drug monitoring * TACROLIMUS LEVEL(Performed 01/13/2018) Performed for S/P liver transplant (HCC), Immunosuppressed status (HCC), Therapeutic drug monitoring * TACROLIMUS LEVEL(Performed 01/07/2018) * CBC W AUTO DIFFERENTIAL(Performed 01/07/2018) * HEPATIC FUNCTION PANEL(Performed 01/07/2018) * BASIC METABOLIC PANEL (CALCIUM TOTAL)(Performed 01/07/2018) * MAGNESIUM BLOOD(Performed 01/07/2018) * PHOSPHORUS BLOOD(Performed 01/07/2018) * CT HEAD WO CONTRAST(Performed 01/07/2018) Performed for Worsening headaches * ALPHA FETOPROTEIN BLOOD TUMOR MARKER(Performed 12/31/2017) Performed for S/P liver transplant (HCC), Immunosuppressed status (HCC), Therapeutic drug monitoring, History of hepatocellular carcinoma * PHOSPHORUS BLOOD(Performed 12/31/2017) Performed for S/P liver transplant (HCC), Immunosuppressed status (HCC), Therapeutic drug monitoring * MAGNESIUM BLOOD(Performed 12/31/2017) Performed for S/P liver transplant (HCC), Immunosuppressed status (HCC), Therapeutic drug monitoring * BASIC METABOLIC PANEL (CALCIUM TOTAL)(Performed 12/31/2017) Performed for S/P liver transplant (HCC), Immunosuppressed status (HCC), Therapeutic drug monitoring * HEPATIC FUNCTION PANEL(Performed 12/31/2017) Performed for S/P liver transplant (HCC), Immunosuppressed status (HCC), Therapeutic drug monitoring * CBC W AUTO DIFFERENTIAL(Performed 12/31/2017) Performed for S/P liver transplant (HCC), Immunosuppressed status (HCC), Therapeutic drug monitoring * TACROLIMUS LEVEL(Performed 12/31/2017) Performed for S/P liver transplant (HCC), Immunosuppressed status (HCC), Therapeutic drug monitoring * CYTOMEGALOVIRUS DNA RT-PCR QUANT(Performed 12/31/2017) Performed for S/P liver transplant (HCC), Immunosuppressed status (HCC), Therapeutic drug monitoring * CT ABDOMEN MULTI PHASE W CONT(Performed 12/26/2017) Performed for HCC (hepatocellular carcinoma) (HCC) * PHOSPHORUS BLOOD(Performed 12/23/2017) Performed for S/P liver transplant (HCC), Immunosuppressed status (HCC), Therapeutic drug monitoring * MAGNESIUM BLOOD(Performed 12/23/2017) Performed for S/P liver transplant (HCC), Immunosuppressed status (HCC), Therapeutic drug monitoring * HEPATIC FUNCTION PANEL(Performed 12/23/2017) Performed for S/P liver transplant (HCC), Immunosuppressed status (HCC), Therapeutic drug monitoring * CBC W AUTO DIFFERENTIAL(Performed 12/23/2017) Performed for S/P liver transplant (HCC), Immunosuppressed status (HCC), Therapeutic drug monitoring * BASIC METABOLIC PANEL (CALCIUM TOTAL)(Performed 12/23/2017) Performed for S/P liver transplant (HCC), Immunosuppressed status (HCC), Therapeutic drug monitoring * TACROLIMUS (EXTERNAL RESULT ENTRY)(Performed 12/23/2017) * TACROLIMUS LEVEL(Performed 12/17/2017) Performed for S/P liver transplant (HCC), Immunosuppressed status (HCC), Therapeutic drug monitoring * CBC W AUTO DIFFERENTIAL(Performed 12/17/2017) Performed for S/P liver transplant (HCC), Immunosuppressed status (HCC), Therapeutic drug monitoring * HEPATIC FUNCTION PANEL(Performed 12/17/2017) Performed for S/P liver transplant (HCC), Immunosuppressed status (HCC), Therapeutic drug monitoring * BASIC METABOLIC PANEL (CALCIUM TOTAL)(Performed 12/17/2017) Performed for S/P liver transplant (HCC), Immunosuppressed status (HCC), Therapeutic drug monitoring * MAGNESIUM BLOOD(Performed 12/17/2017) Performed for S/P liver transplant (HCC), Immunosuppressed status (HCC), Therapeutic drug monitoring * PHOSPHORUS BLOOD(Performed 12/17/2017) Performed for S/P liver transplant (HCC), Immunosuppressed status (HCC), Therapeutic drug monitoring * TACROLIMUS (EXTERNAL RESULT ENTRY)(Performed 12/12/2017) * CHEM PROFILE (EXTERNAL RESULT ENTRY)(Performed 12/12/2017) * CBC W DIFF (EXTERNAL RESULT ENTRY)(Performed 12/12/2017) * CBC W AUTO DIFFERENTIAL(Performed 12/09/2017) * BASIC METABOLIC PANEL (CALCIUM TOTAL)(Performed 12/09/2017) * CBC W AUTO DIFFERENTIAL(Performed 12/09/2017) * TACROLIMUS LEVEL(Performed 12/09/2017) * PHOSPHORUS BLOOD(Performed 12/09/2017) * MAGNESIUM BLOOD(Performed 12/09/2017) * HEPATIC FUNCTION PANEL(Performed 12/09/2017) * CBC W AUTO DIFFERENTIAL(Performed 12/02/2017) * TACROLIMUS LEVEL(Performed 12/02/2017) * HEPATIC FUNCTION PANEL(Performed 12/02/2017) * BASIC METABOLIC PANEL (CALCIUM TOTAL)(Performed 12/02/2017) * PHOSPHORUS BLOOD(Performed 12/02/2017) * MAGNESIUM BLOOD(Performed 12/02/2017) * CBC W AUTO DIFFERENTIAL(Performed 12/02/2017) * CBC W AUTO DIFFERENTIAL(Performed 11/28/2017) * TACROLIMUS LEVEL(Performed 11/28/2017) * BASIC METABOLIC PANEL (CALCIUM TOTAL)(Performed 11/28/2017) * PHOSPHORUS BLOOD(Performed 11/28/2017) * MAGNESIUM BLOOD(Performed 11/28/2017) * HEPATIC FUNCTION PANEL(Performed 11/28/2017) * CBC W AUTO DIFFERENTIAL(Performed 11/28/2017) * COMPREHENSIVE METABOLIC PANEL(Performed 11/26/2017) * CBC W AUTO DIFFERENTIAL(Performed 11/25/2017) * TACROLIMUS LEVEL(Performed 11/25/2017) * PHOSPHORUS BLOOD(Performed 11/25/2017) * HEPATIC FUNCTION PANEL(Performed 11/25/2017) * BASIC METABOLIC PANEL (CALCIUM TOTAL)(Performed 11/25/2017) * MAGNESIUM BLOOD(Performed 11/25/2017) * CBC W AUTO DIFFERENTIAL(Performed 11/25/2017) * GLUCOSE ACCUCHECK(Performed 11/14/2017) * GLUCOSE ACCUCHECK(Performed 11/14/2017) * TACROLIMUS LEVEL(Performed 11/14/2017) * CBC W/O DIFFERENTIAL(Performed 11/14/2017) * BASIC METABOLIC PANEL (CALCIUM TOTAL)(Performed 11/14/2017) * PHOSPHORUS BLOOD(Performed 11/14/2017) * MAGNESIUM BLOOD(Performed 11/14/2017) * HEPATIC FUNCTION PANEL(Performed 11/14/2017) * GLUCOSE ACCUCHECK(Performed 11/13/2017) * GLUCOSE ACCUCHECK(Performed 11/13/2017) * GLUCOSE ACCUCHECK(Performed 11/13/2017) * GLUCOSE ACCUCHECK(Performed 11/13/2017) * PHOSPHORUS BLOOD(Performed 11/13/2017) * MAGNESIUM BLOOD(Performed 11/13/2017) * HEPATIC FUNCTION PANEL(Performed 11/13/2017) * BASIC METABOLIC PANEL (CALCIUM TOTAL)(Performed 11/13/2017) * CBC W/O DIFFERENTIAL(Performed 11/13/2017) * TACROLIMUS LEVEL(Performed 11/13/2017) * GLUCOSE ACCUCHECK(Performed 11/12/2017) * GLUCOSE ACCUCHECK(Performed 11/12/2017) * GLUCOSE ACCUCHECK(Performed 11/12/2017) * GLUCOSE ACCUCHECK(Performed 11/12/2017) * TACROLIMUS LEVEL(Performed 11/12/2017) * BASIC METABOLIC PANEL (CALCIUM TOTAL)(Performed 11/12/2017) * PHOSPHORUS BLOOD(Performed 11/12/2017) * MAGNESIUM BLOOD(Performed 11/12/2017) * HEPATIC FUNCTION PANEL(Performed 11/12/2017) * CBC W/O DIFFERENTIAL(Performed 11/12/2017) * GLUCOSE ACCUCHECK(Performed 11/11/2017) * GLUCOSE ACCUCHECK(Performed 11/11/2017) * GLUCOSE ACCUCHECK(Performed 11/11/2017) * GLUCOSE ACCUCHECK(Performed 11/11/2017) * TACROLIMUS LEVEL(Performed 11/11/2017) * BASIC METABOLIC PANEL (CALCIUM TOTAL)(Performed 11/11/2017) * PHOSPHORUS BLOOD(Performed 11/11/2017) * MAGNESIUM BLOOD(Performed 11/11/2017) * HEPATIC FUNCTION PANEL(Performed 11/11/2017) * CBC W/O DIFFERENTIAL(Performed 11/11/2017) * GLUCOSE ACCUCHECK(Performed 11/10/2017) * GLUCOSE ACCUCHECK(Performed 11/10/2017) * GLUCOSE ACCUCHECK(Performed 11/10/2017) * GLUCOSE ACCUCHECK(Performed 11/10/2017) * BASIC METABOLIC PANEL (CALCIUM TOTAL)(Performed 11/10/2017) * PHOSPHORUS BLOOD(Performed 11/10/2017) * MAGNESIUM BLOOD(Performed 11/10/2017) * HEPATIC FUNCTION PANEL(Performed 11/10/2017) * TACROLIMUS LEVEL(Performed 11/10/2017) * CBC W/O DIFFERENTIAL(Performed 11/10/2017) * GLUCOSE ACCUCHECK(Performed 11/09/2017) * GLUCOSE ACCUCHECK(Performed 11/09/2017) * GLUCOSE ACCUCHECK(Performed 11/09/2017) * XR ABDOMEN KUB PORTABLE(Performed 11/09/2017) * CBC W/O DIFFERENTIAL(Performed 11/09/2017) * TACROLIMUS LEVEL(Performed 11/09/2017) * HEPATIC FUNCTION PANEL(Performed 11/09/2017) * BASIC METABOLIC PANEL (CALCIUM TOTAL)(Performed 11/09/2017) * PHOSPHORUS BLOOD(Performed 11/09/2017) * MAGNESIUM BLOOD(Performed 11/09/2017) * GLUCOSE ACCUCHECK(Performed 11/08/2017) * GLUCOSE ACCUCHECK(Performed 11/08/2017) * CARDIOLIPIN ANTIBODY IGA(Performed 11/08/2017) * CARDIOLIPIN ANTIBODY IGG(Performed 11/08/2017) * CARDIOLIPIN ANTIBODY IGM(Performed 11/08/2017) * ANTITHROMBIN III ACTIVITY(Performed 11/08/2017) * PTT [facility](Performed 11/08/2017) * PROTEIN S ACTIVITY(Performed 11/08/2017) * CHRIS VIPER VENOM DILUTE(Performed 11/08/2017) * PROTEIN C FUNCTIONAL(Performed 11/08/2017) * FACTOR VIII ASSAY(Performed 11/08/2017) * HOMOCYSTEINE BLOOD QUANTITATIVE(Performed 11/08/2017) * TEG CITRATED KAOLIN (CK)(Performed 11/08/2017) * LAB MISCELLANEOUS TEST 2(Performed 11/08/2017) * LAB MISC TEST(Performed 11/08/2017) * GLUCOSE ACCUCHECK(Performed 11/08/2017) * XR ABDOMEN KUB PORTABLE(Performed 11/08/2017) * GLUCOSE ACCUCHECK(Performed 11/08/2017) * TACROLIMUS LEVEL(Performed 11/08/2017) * HEPATIC FUNCTION PANEL(Performed 11/08/2017) * BASIC METABOLIC PANEL (CALCIUM TOTAL)(Performed 11/08/2017) * PHOSPHORUS BLOOD(Performed 11/08/2017) * MAGNESIUM BLOOD(Performed 11/08/2017) * CBC W/O DIFFERENTIAL(Performed 11/08/2017) * GLUCOSE ACCUCHECK(Performed 11/08/2017) * PATHOLOGY/GENETICS HISTORICAL-ONBASE(Performed 11/08/2017) * GLUCOSE ACCUCHECK(Performed 11/07/2017) * GLUCOSE ACCUCHECK(Performed 11/07/2017) * US LIVER TRANSPLANT(Performed 11/07/2017) * NM HEPATOBILIARY WO EF(Performed 11/07/2017) * GLUCOSE ACCUCHECK(Performed 11/07/2017) * GLUCOSE ACCUCHECK(Performed 11/07/2017) * BASIC METABOLIC PANEL (CALCIUM TOTAL)(Performed 11/07/2017) * HEPATIC FUNCTION PANEL(Performed 11/07/2017) * PHOSPHORUS BLOOD(Performed 11/07/2017) * MAGNESIUM BLOOD(Performed 11/07/2017) * PT-INR [facility](Performed 11/07/2017) * TACROLIMUS LEVEL(Performed 11/07/2017) * CBC W/O DIFFERENTIAL(Performed 11/07/2017) * GLUCOSE ACCUCHECK(Performed 11/07/2017) * GLUCOSE ACCUCHECK(Performed 11/06/2017) * GLUCOSE ACCUCHECK(Performed 11/06/2017) * GLUCOSE ACCUCHECK(Performed 11/06/2017) * BASIC METABOLIC PANEL (CALCIUM TOTAL)(Performed 11/06/2017) * HEPATIC FUNCTION PANEL(Performed 11/06/2017) * PHOSPHORUS BLOOD(Performed 11/06/2017) * MAGNESIUM BLOOD(Performed 11/06/2017) * PT-INR [facility](Performed 11/06/2017) * CBC W/O DIFFERENTIAL(Performed 11/06/2017) * GLUCOSE ACCUCHECK(Performed 11/06/2017) * GLUCOSE ACCUCHECK(Performed 11/06/2017) * GLUCOSE ACCUCHECK(Performed 11/06/2017) * PHOSPHORUS BLOOD(Performed 11/06/2017) * MAGNESIUM BLOOD(Performed 11/06/2017) * HEPATIC FUNCTION PANEL(Performed 11/06/2017) * BASIC METABOLIC PANEL (CALCIUM TOTAL)(Performed 11/06/2017) * PT-INR [facility](Performed 11/06/2017) * CBC W/O DIFFERENTIAL(Performed 11/06/2017) * TACROLIMUS LEVEL(Performed 11/06/2017) * GLUCOSE ACCUCHECK(Performed 11/06/2017) * GLUCOSE ACCUCHECK(Performed 11/05/2017) * CBC W/O DIFFERENTIAL(Performed 11/05/2017) * MAGNESIUM BLOOD(Performed 11/05/2017) * BASIC METABOLIC PANEL (CALCIUM TOTAL)(Performed 11/05/2017) * PHOSPHORUS BLOOD(Performed 11/05/2017) * HEPATIC FUNCTION PANEL(Performed 11/05/2017) * PT-INR [facility](Performed 11/05/2017) * GLUCOSE ACCUCHECK(Performed 11/05/2017) * GLUCOSE ACCUCHECK(Performed 11/05/2017) * GLUCOSE ACCUCHECK(Performed 11/05/2017) * PT-INR [facility](Performed 11/05/2017) * BASIC METABOLIC PANEL (CALCIUM TOTAL)(Performed 11/05/2017) * HEPATIC FUNCTION PANEL(Performed 11/05/2017) * PHOSPHORUS BLOOD(Performed 11/05/2017) * MAGNESIUM BLOOD(Performed 11/05/2017) * CBC W/O DIFFERENTIAL(Performed 11/05/2017) * TACROLIMUS LEVEL(Performed 11/05/2017) * GLUCOSE ACCUCHECK(Performed 11/05/2017) * GLUCOSE ACCUCHECK(Performed 11/04/2017) * GLUCOSE ACCUCHECK(Performed 11/04/2017) * PTT [facility](Performed 11/04/2017) * PT-INR [facility](Performed 11/04/2017) * BASIC METABOLIC PANEL (CALCIUM TOTAL)(Performed 11/04/2017) * HEPATIC FUNCTION PANEL(Performed 11/04/2017) * PHOSPHORUS BLOOD(Performed 11/04/2017) * MAGNESIUM BLOOD(Performed 11/04/2017) * CBC W/O DIFFERENTIAL(Performed 11/04/2017) * GLUCOSE ACCUCHECK(Performed 11/04/2017) * LACTIC ACID BLOOD(Performed 11/04/2017) * CBC W/O DIFFERENTIAL(Performed 11/04/2017) * BLOOD GASES ARTERIAL(Performed 11/04/2017) * BASIC METABOLIC PANEL (CALCIUM TOTAL)(Performed 11/04/2017) * PHOSPHORUS BLOOD(Performed 11/04/2017) * MAGNESIUM BLOOD(Performed 11/04/2017) * HEPATIC FUNCTION PANEL(Performed 11/04/2017) * PTT [facility](Performed 11/04/2017) * PT-INR [facility](Performed 11/04/2017) * GLUCOSE ACCUCHECK(Performed 11/04/2017) * GLUCOSE ACCUCHECK(Performed 11/04/2017) * GLUCOSE ACCUCHECK(Performed 11/04/2017) * GLUCOSE ACCUCHECK(Performed 11/04/2017) * GLUCOSE ACCUCHECK(Performed 11/04/2017) * SVO2 FOR RECALIBRATION(Performed 11/04/2017) * HEPATIC FUNCTION PANEL(Performed 11/04/2017) * BASIC METABOLIC PANEL (CALCIUM TOTAL)(Performed 11/04/2017) * PHOSPHORUS BLOOD(Performed 11/04/2017) * MAGNESIUM BLOOD(Performed 11/04/2017) * PTT [facility](Performed 11/04/2017) * PT-INR [facility](Performed 11/04/2017) * CBC W/O DIFFERENTIAL(Performed 11/04/2017) * BLOOD GASES ARTERIAL(Performed 11/04/2017) * LACTIC ACID BLOOD(Performed 11/04/2017) * GLUCOSE ACCUCHECK(Performed 11/04/2017) * GLUCOSE ACCUCHECK(Performed 11/04/2017) * GLUCOSE ACCUCHECK(Performed 11/04/2017) * GLUCOSE ACCUCHECK(Performed 11/03/2017) * US LIVER TRANSPLANT(Performed 11/03/2017) * BLOOD GASES ARTERIAL(Performed 11/03/2017) * LACTIC ACID BLOOD(Performed 11/03/2017) * CBC W AUTO DIFFERENTIAL(Performed 11/03/2017) * HEPATIC FUNCTION PANEL(Performed 11/03/2017) * BASIC METABOLIC PANEL (CALCIUM TOTAL)(Performed 11/03/2017) * PHOSPHORUS BLOOD(Performed 11/03/2017) * MAGNESIUM BLOOD(Performed 11/03/2017) * FIBRINOGEN ACTIVITY(Performed 11/03/2017) * PTT [facility](Performed 11/03/2017) * PT-INR [facility](Performed 11/03/2017) * CBC W AUTO DIFFERENTIAL(Performed 11/03/2017) * GLUCOSE ACCUCHECK(Performed 11/03/2017) * XR ABDOMEN KUB PORTABLE(Performed 11/03/2017) * XR CHEST 1VW PORTABLE(Performed 11/03/2017) * SODIUM WHOLE BLOOD(Performed 11/03/2017) * LACTIC ACID WHOLE BLOOD(Performed 11/03/2017) * GLUCOSE WHOLE BLOOD(Performed 11/03/2017) * POTASSIUM WHOLE BLD(Performed 11/03/2017) * CHLORIDE WHOLE BLOOD(Performed 11/03/2017) * CALCIUM IONIZED WHOLE BLOOD(Performed 11/03/2017) * BLOOD GASES ARTERIAL(Performed 11/03/2017) * FIBRINOGEN ACTIVITY(Performed 11/03/2017) * PTT [facility](Performed 11/03/2017) * PT-INR [facility](Performed 11/03/2017) * CBC W/O DIFFERENTIAL(Performed 11/03/2017) * BLOOD GASES ART COMPLETE [facility] OR(Performed 11/03/2017) * BLOOD GASES ART COMPLETE [facility] OR(Performed 11/03/2017) * CBC W/O DIFFERENTIAL(Performed 11/03/2017) * PTT [facility](Performed 11/03/2017) * FIBRINOGEN ACTIVITY(Performed 11/03/2017) * PT-INR [facility](Performed 11/03/2017) * PATHOLOGY TISSUE(Performed 11/03/2017) * SODIUM WHOLE BLOOD(Performed 11/03/2017) * LACTIC ACID WHOLE BLOOD(Performed 11/03/2017) * GLUCOSE WHOLE BLOOD(Performed 11/03/2017) * POTASSIUM WHOLE BLD(Performed 11/03/2017) * CHLORIDE WHOLE BLOOD(Performed 11/03/2017) * CALCIUM IONIZED WHOLE BLOOD(Performed 11/03/2017) * BLOOD GASES ARTERIAL(Performed 11/03/2017) * BLOOD GASES ARTERIAL(Performed 11/03/2017) * SODIUM WHOLE BLOOD(Performed 11/03/2017) * LACTIC ACID WHOLE BLOOD(Performed 11/03/2017) * GLUCOSE WHOLE BLOOD(Performed 11/03/2017) * POTASSIUM WHOLE BLD(Performed 11/03/2017) * CHLORIDE WHOLE BLOOD(Performed 11/03/2017) * CALCIUM IONIZED WHOLE BLOOD(Performed 11/03/2017) * SODIUM WHOLE BLOOD(Performed 11/03/2017) * LACTIC ACID WHOLE BLOOD(Performed 11/03/2017) * GLUCOSE WHOLE BLOOD(Performed 11/03/2017) * POTASSIUM WHOLE BLD(Performed 11/03/2017) * CHLORIDE WHOLE BLOOD(Performed 11/03/2017) * CALCIUM IONIZED WHOLE BLOOD(Performed 11/03/2017) * BLOOD GASES ARTERIAL(Performed 11/03/2017) * SODIUM WHOLE BLOOD(Performed 11/03/2017) * LACTIC ACID WHOLE BLOOD(Performed 11/03/2017) * GLUCOSE WHOLE BLOOD(Performed 11/03/2017) * POTASSIUM WHOLE BLD(Performed 11/03/2017) * CHLORIDE WHOLE BLOOD(Performed 11/03/2017) * CALCIUM IONIZED WHOLE BLOOD(Performed 11/03/2017) * BLOOD GASES ARTERIAL(Performed 11/03/2017) * PTT [facility](Performed 11/03/2017) * FIBRINOGEN ACTIVITY(Performed 11/03/2017) * PT-INR [facility](Performed 11/03/2017) * BLOOD GASES ART COMPLETE [facility] OR(Performed 11/03/2017) * CBC W/O DIFFERENTIAL(Performed 11/03/2017) * TEG CITRATED KAOLIN (CK)(Performed 11/03/2017) * GLUCOSE ACCUCHECK(Performed 11/03/2017) * DRUG ABUSE PANEL 10-20+ETHANOL URINE NO CONFIRM(Performed 11/03/2017) * URINALYSIS W/MICROSCOPIC NO CULTURE(Performed 11/03/2017) * XR CHEST 1VW PORTABLE(Performed 11/02/2017) * FIBRINOGEN ACTIVITY(Performed 11/02/2017) * PTT [facility](Performed 11/02/2017) * PT-INR [facility](Performed 11/02/2017) * BASIC METABOLIC PANEL (CALCIUM TOTAL)(Performed 11/02/2017) * HEPATIC FUNCTION PANEL(Performed 11/02/2017) * PHOSPHORUS BLOOD(Performed 11/02/2017) * MAGNESIUM BLOOD(Performed 11/02/2017) * CBC W AUTO DIFFERENTIAL(Performed 11/02/2017) * TYPE + SCREEN PANEL(Performed 11/02/2017) * PREPARE FFP UNIT(S)(Performed 11/02/2017) * CROSSMATCH RBC LEUKOREDUCED(Performed 11/02/2017) * CROSSMATCH RBC LEUKOREDUCED(Performed 11/02/2017) * CBC W AUTO DIFFERENTIAL(Performed 11/02/2017) * HLA XM SEROLOGIC DONOR(Performed 11/02/2017) * EKG 12-LEAD(Performed 11/02/2017) * COMPREHENSIVE METABOLIC PANEL(Performed 10/24/2017) * PT-INR [facility](Performed 10/24/2017) * ALPHA FETOPROTEIN BLOOD TUMOR MARKER(Performed 09/19/2017) * PT-INR [facility](Performed 09/19/2017) * COMPREHENSIVE METABOLIC PANEL(Performed 09/19/2017) * CT ABDOMEN MULTI PHASE W CONT(Performed 09/19/2017) * PT-INR [facility](Performed 09/05/2017) * COMPREHENSIVE METABOLIC PANEL(Performed 09/05/2017) * CT CHEST WO CONTRAST(Performed 08/06/2017) * BLOOD TYPE ABO+ RH PANEL(Performed 08/06/2017) * DRUG ABUSE PANEL 10-20+ETHANOL URINE NO CONFIRM(Performed 08/06/2017) * URINALYSIS REFLEX TO MICROSCOPIC NO CULTURE(Performed 08/06/2017) * TYPE + SCREEN PANEL(Performed 08/06/2017) * QUANTIFERON TB-GOLD (CLIENT INCUBATED)(Performed 08/06/2017) * NICOTINE + METABOLITES BLOOD(Performed 08/06/2017) * HEMOGLOBIN A1C(Performed 08/06/2017) * ALPHA FETOPROTEIN BLOOD TUMOR MARKER(Performed 08/06/2017) * CANCER ANTIGEN (CA) 19-9(Performed 08/06/2017) * RUBEOLA ANTIBODY IGG(Performed 08/06/2017) * VARICELLA ZOSTER ANTIBODY IGG(Performed 08/06/2017) * RPR(Performed 08/06/2017) * RUBELLA ANTIBODY IGG(Performed 08/06/2017) * TRANSFERRIN(Performed 08/06/2017) * FERRITIN(Performed 08/06/2017) * PSA FREE + TOTAL PANEL(Performed 08/06/2017) * HIV-1 HIV-2 ANTIGEN/ANTIBODY(Performed 08/06/2017) * HEPATITIS B CORE ANTIBODY TOTAL(Performed 08/06/2017) * COMPREHENSIVE METABOLIC PANEL(Performed 08/06/2017) * LIPID PROFILE(Performed 08/06/2017) * ALCOHOL ETHYL BLOOD(Performed 08/06/2017) * ÁNGEL-VOGEL VIRUS ANTIBODY TO VCA IGG(Performed 08/06/2017) * CYTOMEGALOVIRUS ANTIBODY IGG BLOOD(Performed 08/06/2017) * MUMPS ANTIBODY IGG(Performed 08/06/2017) * HEPATITIS B SURFACE ANTIGEN W RFLX CONFIRMATION(Performed 08/06/2017) * PT-INR [facility](Performed 08/06/2017) * XR PANOREX(Performed 08/06/2017) * ECHO STRESS COLOR FLOW AND DOPPLER(Performed 08/06/2017) * ECHO STRESS W DOBUTAMINE(Performed 08/06/2017) * IR EMBOLIZATION TRANSCATH THPY(Performed 07/02/2017) * IR US GUIDE VASCULAR ACCESS(Performed 07/02/2017) * IR VASCULAR CLOSURE DEVICE(Performed 07/02/2017) * IR ANGIO SELECTIVE(Performed 07/02/2017) * IR VISCERAL ANGIO(Performed 07/02/2017) * IR ANGIO EXTREMITY PROCEDURAL CODE(Performed 07/02/2017) * IR ANGIO EXTREMITY PROCEDURAL CODE(Performed 07/02/2017) * PT-INR [facility](Performed 07/02/2017) * COMPREHENSIVE METABOLIC PANEL(Performed 07/02/2017) * ALPHA FETOPROTEIN BLOOD TUMOR MARKER(Performed 07/02/2017) * CBC W AUTO DIFFERENTIAL(Performed 07/02/2017) * CBC W AUTO DIFFERENTIAL(Performed 07/02/2017) * ALPHA FETOPROTEIN BLOOD TUMOR MARKER(Performed 06/19/2017) * COMPREHENSIVE METABOLIC PANEL(Performed 06/19/2017) * PT-INR [facility](Performed 06/19/2017) * US ABDOMEN DOPPLER ONLY LTD(Performed 06/19/2017) * US SCROTUM AND CONTENTS(Performed 06/19/2017) * CT ABDOMEN MULTI PHASE W CONT(Performed 05/30/2017) * CREATININE BLOOD - POCT (IP) [facility](Performed 05/30/2017) * COMPREHENSIVE METABOLIC PANEL(Performed 04/10/2017) * PT-INR [facility](Performed 04/10/2017) * CT CHEST WO CONTRAST(Performed 04/01/2017) * ALPHA FETOPROTEIN BLOOD TUMOR MARKER(Performed 03/19/2017) * CBC W AUTO DIFFERENTIAL(Performed 03/19/2017) * PT-INR [facility](Performed 03/19/2017) * COMPREHENSIVE METABOLIC PANEL(Performed 03/19/2017) * GLUCOSE ACCUCHECK(Performed 03/06/2017) * CT MICROWAVE ABLATION(Performed 03/06/2017) * CT PARENCHYMAL TISSUE ABLATION(Performed 03/06/2017) * TYPE + SCREEN PANEL(Performed 03/06/2017) * PREPARE PLATELET PHERESIS UNIT(S)(Performed 03/06/2017) * CBC W AUTO DIFFERENTIAL(Performed 03/06/2017) * COMPREHENSIVE METABOLIC PANEL(Performed 03/06/2017) * PT-INR [facility](Performed 03/06/2017) * CBC W AUTO DIFFERENTIAL(Performed 03/06/2017) * ALPHA FETOPROTEIN BLOOD TUMOR MARKER(Performed 01/02/2017) * CBC W AUTO DIFFERENTIAL(Performed 01/02/2017) * COMPREHENSIVE METABOLIC PANEL(Performed 01/02/2017) * PT-INR [facility](Performed 01/02/2017) * CBC W AUTO DIFFERENTIAL(Performed 01/02/2017) * CT ABDOMEN MULTI PHASE W CONT(Performed 01/02/2017) * COMPREHENSIVE METABOLIC PANEL(Performed 12/04/2016) * PT-INR [facility](Performed 12/04/2016) * PT-INR [facility](Performed 10/24/2016) * PHOSPHORUS BLOOD(Performed 10/24/2016) * MAGNESIUM BLOOD(Performed 10/24/2016) * HEPATIC FUNCTION PANEL(Performed 10/24/2016) * BASIC METABOLIC PANEL (CALCIUM TOTAL)(Performed 10/24/2016) * CBC W AUTO DIFFERENTIAL(Performed 10/24/2016) * CBC W AUTO DIFFERENTIAL(Performed 10/24/2016) * GLUCOSE ACCUCHECK(Performed 10/07/2016) * GLUCOSE ACCUCHECK(Performed 10/07/2016) * CBC W/O DIFFERENTIAL(Performed 10/07/2016) * BASIC METABOLIC PANEL (CALCIUM TOTAL)(Performed 10/07/2016) * HEPATIC FUNCTION PANEL(Performed 10/07/2016) * PTT [facility](Performed 10/07/2016) * PT-INR [facility](Performed 10/07/2016) * GLUCOSE ACCUCHECK(Performed 10/06/2016) * PTT [facility](Performed 10/06/2016) * PT-INR [facility](Performed 10/06/2016) * BASIC METABOLIC PANEL (CALCIUM TOTAL)(Performed 10/06/2016) * HEPATIC FUNCTION PANEL(Performed 10/06/2016) * CBC W/O DIFFERENTIAL(Performed 10/06/2016) * BASIC METABOLIC PANEL (CALCIUM TOTAL)(Performed 10/06/2016) * HEPATIC FUNCTION PANEL(Performed 10/06/2016) * PTT [facility](Performed 10/06/2016) * PT-INR [facility](Performed 10/06/2016) * CBC W AUTO DIFFERENTIAL(Performed 10/06/2016) * CBC W AUTO DIFFERENTIAL(Performed 10/06/2016) * GLUCOSE ACCUCHECK(Performed 10/06/2016) * PATHOLOGY TISSUE(Performed 10/06/2016) * CULTURE ANAEROBE(Performed 10/06/2016) * CULTURE AEROBIC(Performed 10/06/2016) * CROSSMATCH RBC LEUKOREDUCED(Performed 10/05/2016) * PREPARE PLATELET PHERESIS UNIT(S)(Performed 10/05/2016) * TYPE + SCREEN PANEL(Performed 10/05/2016) * GLUCOSE ACCUCHECK(Performed 10/05/2016) * CT ABDOMEN PELVIS W CONTRAST(Performed 10/05/2016) * PTT [facility](Performed 10/05/2016) * PT-INR [facility](Performed 10/05/2016) * HEPATIC FUNCTION PANEL(Performed 10/05/2016) * BASIC METABOLIC PANEL (CALCIUM TOTAL)(Performed 10/05/2016) * PURPLE TOP TUBE EXTRA(Performed 10/05/2016) * CBC W AUTO DIFFERENTIAL(Performed 10/05/2016) * LACTIC ACID BLOOD(Performed 10/05/2016) * CBC W AUTO DIFFERENTIAL(Performed 10/05/2016) * CT ABDOMEN MULTI PHASE W CONT(Performed 09/19/2016) * COMPREHENSIVE METABOLIC PANEL(Performed 09/19/2016) * PT-INR [facility](Performed 09/19/2016) * CBC W AUTO DIFFERENTIAL(Performed 09/12/2016) * LIPASE BLOOD(Performed 09/12/2016) * COMPREHENSIVE METABOLIC PANEL(Performed 09/12/2016) * CBC W AUTO DIFFERENTIAL(Performed 09/12/2016) * XR LUMBAR SPINE 2 OR 3VW(Performed 08/28/2016) * ECHO COMPLETE(Performed 08/22/2016) * COMPREHENSIVE METABOLIC PANEL(Performed 08/08/2016) * PT-INR [facility](Performed 08/08/2016) * GLUCOSE ACCUCHECK(Performed 08/03/2016) * BASIC METABOLIC PANEL (CALCIUM TOTAL)(Performed 08/03/2016) * CBC W AUTO DIFFERENTIAL(Performed 08/03/2016) * CBC W AUTO DIFFERENTIAL(Performed 08/03/2016) * GLUCOSE ACCUCHECK(Performed 08/02/2016) * CT HEAD WO CONTRAST(Performed 08/02/2016) * CT ANGIO BRAIN AND NECK(Performed 08/02/2016) * XR CHEST 2VW(Performed 08/02/2016) * CK + CKMB PANEL(Performed 08/02/2016) * TROPONIN I(Performed 08/02/2016) * ALCOHOL ETHYL BLOOD(Performed 08/02/2016) * COMPREHENSIVE METABOLIC PANEL(Performed 08/02/2016) * AMMONIA(Performed 08/02/2016) * CBC W AUTO DIFFERENTIAL(Performed 08/02/2016) * CBC W AUTO DIFFERENTIAL(Performed 08/02/2016) * EKG 12-LEAD(Performed 08/02/2016) * EKG 12-LEAD(Performed 07/31/2016) * CCL CARDIAC CATH LEFT W GRAFT(Performed 07/30/2016) * CBC W/O DIFFERENTIAL(Performed 07/30/2016) * BASIC METABOLIC PANEL (CALCIUM TOTAL)(Performed 07/30/2016) * PT-INR [facility](Performed 07/30/2016) * CT LIVER 3 PHASE W PELVIS(Performed 07/17/2016) * ALPHA FETOPROTEIN + AFP-L3(Performed 07/09/2016) * CBC W AUTO DIFFERENTIAL(Performed 07/09/2016) * COMPREHENSIVE METABOLIC PANEL(Performed 07/09/2016) * PT-INR [facility](Performed 07/09/2016) * BLOOD GASES ART - PFT(Performed 06/19/2016) * XR PANOREX(Performed 06/19/2016) * CT CHEST WO CONTRAST(Performed 06/19/2016) * BLOOD TYPE ABO+ RH PANEL(Performed 06/19/2016) * TYPE + SCREEN PANEL(Performed 06/19/2016) * QUANTIFERON TB-GOLD (CLIENT INCUBATED)(Performed 06/19/2016) * DRUG ABUSE PANEL 10-+ETHANOL URINE NO CONFIRM(Performed 06/19/2016) * URINALYSIS REFLEX TO MICROSCOPIC NO CULTURE(Performed 06/19/2016) * HEMOGLOBIN A1C(Performed 06/19/2016) * CBC W AUTO DIFFERENTIAL(Performed 06/19/2016) * NICOTINE + METABOLITES BLOOD(Performed 06/19/2016) * CYTOMEGALOVIRUS ANTIBODY IGG BLOOD(Performed 06/19/2016) * MUMPS ANTIBODY IGG(Performed 06/19/2016) * RUBEOLA ANTIBODY IGG(Performed 06/19/2016) * ÁNGEL-VOGEL VIRUS ANTIBODY TO VCA IGG(Performed 06/19/2016) * MITOCHONDRIAL ANTIBODY SCREEN(Performed 06/19/2016) * CANCER ANTIGEN (CA) 19-9(Performed 06/19/2016) * ALPHA FETOPROTEIN BLOOD TUMOR MARKER(Performed 06/19/2016) * RUBELLA ANTIBODY IGG(Performed 06/19/2016) * HEPATITIS A ANTIBODY(Performed 06/19/2016) * PSA FREE + TOTAL PANEL(Performed 06/19/2016) * FERRITIN(Performed 06/19/2016) * TRANSFERRIN(Performed 06/19/2016) * HEPATITIS B CORE ANTIBODY TOTAL(Performed 06/19/2016) * HIV-1 HIV-2 ANTIGEN/ANTIBODY(Performed 06/19/2016) * RPR(Performed 06/19/2016) * ALCOHOL ETHYL BLOOD(Performed 06/19/2016) * LIPID PROFILE(Performed 06/19/2016) * PHOSPHORUS BLOOD(Performed 06/19/2016) * COMPREHENSIVE METABOLIC PANEL(Performed 06/19/2016) * PT-INR [facility](Performed 06/19/2016) * CBC W AUTO DIFFERENTIAL(Performed 06/19/2016) * ECHO STRESS COLOR FLOW AND DOPPLER(Performed 06/19/2016) * ECHO STRESS W DOBUTAMINE(Performed 06/19/2016) * CT ABDOMEN MULTI PHASE W CONT(Performed 04/20/2016) * [id number]-[id number] BLOOD PHENOTYPING PANEL(Performed 03/26/2016) * CBC W AUTO DIFFERENTIAL(Performed 03/26/2016) * COMPREHENSIVE METABOLIC PANEL(Performed 03/26/2016) * PT-INR [facility](Performed 03/26/2016) * CT ABDOMEN MULTI PHASE W CONT(Performed 12/30/2015) * CREATININE BLOOD - POCT (IP) [facility](Performed 12/30/2015) * GLUCOSE ACCUCHECK(Performed 09/24/2015) * GLUCOSE ACCUCHECK(Performed 09/24/2015) * COMPREHENSIVE METABOLIC PANEL(Performed 09/24/2015) * CBC W AUTO DIFFERENTIAL(Performed 09/24/2015) * CBC W AUTO DIFFERENTIAL(Performed 09/24/2015) * MAGNESIUM BLOOD(Performed 09/24/2015) * PHOSPHORUS BLOOD(Performed 09/24/2015) * PT-INR [facility](Performed 09/24/2015) * GLUCOSE ACCUCHECK(Performed 09/23/2015) * GLUCOSE ACCUCHECK(Performed 09/23/2015) * XR LUMBAR SPINE 2 OR 3VW(Performed 09/23/2015) * GLUCOSE ACCUCHECK(Performed 09/23/2015) * GLUCOSE ACCUCHECK(Performed 09/23/2015) * PT-INR [facility](Performed 09/23/2015) * COMPREHENSIVE METABOLIC PANEL(Performed 09/23/2015) * PHOSPHORUS BLOOD(Performed 09/23/2015) * MAGNESIUM BLOOD(Performed 09/23/2015) * CBC W AUTO DIFFERENTIAL(Performed 09/23/2015) * CBC W AUTO DIFFERENTIAL(Performed 09/23/2015) * GLUCOSE ACCUCHECK(Performed 09/22/2015) * GLUCOSE ACCUCHECK(Performed 09/22/2015) * GLUCOSE ACCUCHECK(Performed 09/22/2015) * BASIC METABOLIC PANEL (CALCIUM TOTAL)(Performed 09/22/2015) * COMPREHENSIVE METABOLIC PANEL(Performed 09/22/2015) * PHOSPHORUS BLOOD(Performed 09/22/2015) * MAGNESIUM BLOOD(Performed 09/22/2015) * PT-INR [facility](Performed 09/22/2015) * CBC W AUTO DIFFERENTIAL(Performed 09/22/2015) * CBC W AUTO DIFFERENTIAL(Performed 09/22/2015) * GLUCOSE ACCUCHECK(Performed 09/21/2015) * GLUCOSE ACCUCHECK(Performed 09/21/2015) * GLUCOSE ACCUCHECK(Performed 09/21/2015) * GLUCOSE ACCUCHECK(Performed 09/21/2015) * GLUCOSE ACCUCHECK(Performed 09/21/2015) * PHOSPHORUS BLOOD(Performed 09/21/2015) * MAGNESIUM BLOOD(Performed 09/21/2015) * COMPREHENSIVE METABOLIC PANEL(Performed 09/21/2015) * CBC W AUTO DIFFERENTIAL(Performed 09/21/2015) * CBC W AUTO DIFFERENTIAL(Performed 09/21/2015) * PT-INR [facility](Performed 09/21/2015) * GLUCOSE ACCUCHECK(Performed 09/20/2015) * GLUCOSE ACCUCHECK(Performed 09/20/2015) * GLUCOSE ACCUCHECK(Performed 09/20/2015) * GLUCOSE ACCUCHECK(Performed 09/20/2015) * GLUCOSE ACCUCHECK(Performed 09/20/2015) * PHOSPHORUS BLOOD(Performed 09/20/2015) * MAGNESIUM BLOOD(Performed 09/20/2015) * COMPREHENSIVE METABOLIC PANEL(Performed 09/20/2015) * PT-INR [facility](Performed 09/20/2015) * GLUCOSE ACCUCHECK(Performed 09/20/2015) * BASIC METABOLIC PANEL (CALCIUM TOTAL)(Performed 09/20/2015) * CBC W AUTO DIFFERENTIAL(Performed 09/20/2015) * CBC W AUTO DIFFERENTIAL(Performed 09/20/2015) * GLUCOSE ACCUCHECK(Performed 09/20/2015) * GLUCOSE ACCUCHECK(Performed 09/19/2015) * GLUCOSE ACCUCHECK(Performed 09/19/2015) * GLUCOSE ACCUCHECK(Performed 09/19/2015) * BASIC METABOLIC PANEL (CALCIUM TOTAL)(Performed 09/19/2015) * GLUCOSE ACCUCHECK(Performed 09/19/2015) * GLUCOSE ACCUCHECK(Performed 09/19/2015) * GLUCOSE ACCUCHECK(Performed 09/19/2015) * BASIC METABOLIC PANEL (CALCIUM TOTAL)(Performed 09/19/2015) * COMPREHENSIVE METABOLIC PANEL(Performed 09/19/2015) * PHOSPHORUS BLOOD(Performed 09/19/2015) * MAGNESIUM BLOOD(Performed 09/19/2015) * PT-INR [facility](Performed 09/19/2015) * CBC W AUTO DIFFERENTIAL(Performed 09/19/2015) * CBC W AUTO DIFFERENTIAL(Performed 09/19/2015) * GLUCOSE ACCUCHECK(Performed 09/18/2015) * BASIC METABOLIC PANEL (CALCIUM TOTAL)(Performed 09/18/2015) * GLUCOSE ACCUCHECK(Performed 09/18/2015) * GLUCOSE ACCUCHECK(Performed 09/18/2015) * BASIC METABOLIC PANEL (CALCIUM TOTAL)(Performed 09/18/2015) * GLUCOSE ACCUCHECK(Performed 09/18/2015) * GLUCOSE ACCUCHECK(Performed 09/18/2015) * CBC W AUTO DIFFERENTIAL(Performed 09/18/2015) * CBC W AUTO DIFFERENTIAL(Performed 09/18/2015) * COMPREHENSIVE METABOLIC PANEL(Performed 09/18/2015) * PHOSPHORUS BLOOD(Performed 09/18/2015) * MAGNESIUM BLOOD(Performed 09/18/2015) * PT-INR [facility](Performed 09/18/2015) * BLOOD GASES ARTERIAL(Performed 09/18/2015) * GLUCOSE ACCUCHECK(Performed 09/18/2015) * GLUCOSE ACCUCHECK(Performed 09/17/2015) * BASIC METABOLIC PANEL (CALCIUM TOTAL)(Performed 09/17/2015) * GLUCOSE ACCUCHECK(Performed 09/17/2015) * GLUCOSE ACCUCHECK(Performed 09/17/2015) * BASIC METABOLIC PANEL (CALCIUM TOTAL)(Performed 09/17/2015) * GLUCOSE ACCUCHECK(Performed 09/17/2015) * XR CHEST 1VW PORTABLE(Performed 09/17/2015) * GLUCOSE ACCUCHECK(Performed 09/17/2015) * PHOSPHORUS BLOOD(Performed 09/17/2015) * BASIC METABOLIC PANEL (CALCIUM TOTAL)(Performed 09/17/2015) * COMPREHENSIVE METABOLIC PANEL(Performed 09/17/2015) * MAGNESIUM BLOOD(Performed 09/17/2015) * PT-INR [facility](Performed 09/17/2015) * CBC W AUTO DIFFERENTIAL(Performed 09/17/2015) * CBC W AUTO DIFFERENTIAL(Performed 09/17/2015) * GLUCOSE ACCUCHECK(Performed 09/17/2015) * GLUCOSE ACCUCHECK(Performed 09/16/2015) * BASIC METABOLIC PANEL (CALCIUM TOTAL)(Performed 09/16/2015) * GLUCOSE ACCUCHECK(Performed 09/16/2015) * GLUCOSE ACCUCHECK(Performed 09/16/2015) * BASIC METABOLIC PANEL (CALCIUM TOTAL)(Performed 09/16/2015) * GLUCOSE ACCUCHECK(Performed 09/16/2015) * COMPREHENSIVE METABOLIC PANEL(Performed 09/16/2015) * PHOSPHORUS BLOOD(Performed 09/16/2015) * MAGNESIUM BLOOD(Performed 09/16/2015) * CBC W AUTO DIFFERENTIAL(Performed 09/16/2015) * CBC W AUTO DIFFERENTIAL(Performed 09/16/2015) * PT-INR [facility](Performed 09/16/2015) * GLUCOSE ACCUCHECK(Performed 09/16/2015) * XR CHEST 1VW PORTABLE(Performed 09/15/2015) * XR ABDOMEN KUB PORTABLE(Performed 09/15/2015) * XR CHEST 1VW PORTABLE(Performed 09/15/2015) * CT HEAD WO CONTRAST(Performed 09/15/2015) * BLOOD GASES ARTERIAL(Performed 09/15/2015) * BASIC METABOLIC PANEL (CALCIUM TOTAL)(Performed 09/15/2015) * PHOSPHORUS BLOOD(Performed 09/15/2015) * MAGNESIUM BLOOD(Performed 09/15/2015) * AMMONIA(Performed 09/15/2015) * XR CHEST 1VW PORTABLE(Performed 09/15/2015) * XR ABDOMEN KUB PORTABLE(Performed 09/15/2015) * GLUCOSE ACCUCHECK(Performed 09/15/2015) * GLUCOSE ACCUCHECK(Performed 09/15/2015) * COPPER URINE(Performed 09/15/2015) * BASIC METABOLIC PANEL (CALCIUM TOTAL)(Performed 09/15/2015) * GLUCOSE ACCUCHECK(Performed 09/15/2015) * BASIC METABOLIC PANEL (CALCIUM TOTAL)(Performed 09/15/2015) * GLUCOSE ACCUCHECK(Performed 09/15/2015) * COMPREHENSIVE METABOLIC PANEL(Performed 09/15/2015) * PT-INR [facility](Performed 09/15/2015) * PHOSPHORUS BLOOD(Performed 09/15/2015) * MAGNESIUM BLOOD(Performed 09/15/2015) * CBC W AUTO DIFFERENTIAL(Performed 09/15/2015) * CBC W AUTO DIFFERENTIAL(Performed 09/15/2015) * COPPER BLOOD(Performed 09/15/2015) * BASIC METABOLIC PANEL (CALCIUM TOTAL)(Performed 09/15/2015) * BASIC METABOLIC PANEL (CALCIUM TOTAL)(Performed 09/14/2015) * GLUCOSE ACCUCHECK(Performed 09/14/2015) * BASIC METABOLIC PANEL (CALCIUM TOTAL)(Performed 09/14/2015) * GLUCOSE ACCUCHECK(Performed 09/14/2015) * CT HEAD WO CONTRAST(Performed 09/14/2015) * BASIC METABOLIC PANEL (CALCIUM TOTAL)(Performed 09/14/2015) * GLUCOSE ACCUCHECK(Performed 09/14/2015) * BASIC METABOLIC PANEL (CALCIUM TOTAL)(Performed 09/14/2015) * GLUCOSE ACCUCHECK(Performed 09/14/2015) * PT-INR [facility](Performed 09/14/2015) * CBC W AUTO DIFFERENTIAL(Performed 09/14/2015) * CBC W AUTO DIFFERENTIAL(Performed 09/14/2015) * CORTISOL BLOOD AM(Performed 09/14/2015) * COMPREHENSIVE METABOLIC PANEL(Performed 09/14/2015) * BASIC METABOLIC PANEL (CALCIUM TOTAL)(Performed 09/14/2015) * MAGNESIUM BLOOD(Performed 09/14/2015) * PHOSPHORUS BLOOD(Performed 09/14/2015) * HEPATITIS B VIRUS DNA QUANT PCR(Performed 09/14/2015) * HEMOCHROMATOSIS MUTATION PANEL(Performed 09/14/2015) * HEPATITIS B CORE ANTIBODY TOTAL(Performed 09/14/2015) * [id number]-7-[id number] BLOOD(Performed 09/14/2015) * CERULOPLASMIN(Performed 09/14/2015) * BASIC METABOLIC PANEL (CALCIUM TOTAL)(Performed 09/14/2015) * TRANSFERRIN(Performed 09/14/2015) * IRON BLOOD(Performed 09/14/2015) * AMMONIA(Performed 09/14/2015) * GLUCOSE ACCUCHECK(Performed 09/13/2015) * GLUCOSE ACCUCHECK(Performed 09/13/2015) * BASIC METABOLIC PANEL (CALCIUM TOTAL)(Performed 09/13/2015) * GLUCOSE ACCUCHECK(Performed 09/13/2015) * GLUCOSE ACCUCHECK(Performed 09/13/2015) * COMPREHENSIVE METABOLIC PANEL(Performed 09/13/2015) * PHOSPHORUS BLOOD(Performed 09/13/2015) * MAGNESIUM BLOOD(Performed 09/13/2015) * PT-INR [facility](Performed 09/13/2015) * CBC W AUTO DIFFERENTIAL(Performed 09/13/2015) * CBC W AUTO DIFFERENTIAL(Performed 09/13/2015) * BASIC METABOLIC PANEL (CALCIUM TOTAL)(Performed 09/12/2015) * GLUCOSE ACCUCHECK(Performed 09/12/2015) * OSMOLALITY URINE(Performed 09/12/2015) * GLUCOSE ACCUCHECK(Performed 09/12/2015) * CORTISOL BLOOD PM(Performed 09/12/2015) * TSH(Performed 09/12/2015) * BASIC METABOLIC PANEL (CALCIUM TOTAL)(Performed 09/12/2015) * URIC ACID BLOOD(Performed 09/12/2015) * GLUCOSE ACCUCHECK(Performed 09/12/2015) * US ABDOMEN LIMITED(Performed 09/12/2015) * US ABDOMEN DOPPLER ONLY LTD(Performed 09/12/2015) * COMPREHENSIVE METABOLIC PANEL(Performed 09/12/2015) * PHOSPHORUS BLOOD(Performed 09/12/2015) * MAGNESIUM BLOOD(Performed 09/12/2015) * PT-INR [facility](Performed 09/12/2015) * CBC W AUTO DIFFERENTIAL(Performed 09/12/2015) * CBC W AUTO DIFFERENTIAL(Performed 09/12/2015) * GLUCOSE ACCUCHECK(Performed 09/12/2015) * OSMOLALITY BLOOD(Performed 09/11/2015) * CBC W AUTO DIFFERENTIAL(Performed 09/11/2015) * URINALYSIS W/MICROSCOPIC NO CULTURE(Performed 09/11/2015) * OSMOLALITY URINE(Performed 09/11/2015) * UREA NITROGEN URINE RANDOM(Performed 09/11/2015) * SODIUM URINE RANDOM(Performed 09/11/2015) * CREATININE URINE RANDOM(Performed 09/11/2015) * CULTURE URINE(Performed 09/11/2015) * GLUCOSE ACCUCHECK(Performed 09/11/2015) * GLUCOSE ACCUCHECK(Performed 09/11/2015) * JARROD BLOOD SCREEN W/REFLEX TITER(Performed 09/11/2015) * JARROD BLOOD SCREEN(Performed 09/11/2015) * SMOOTH MUSCLE ANTIBODY(Performed 09/11/2015) * MITOCHONDRIAL ANTIBODY SCREEN(Performed 09/11/2015) * FERRITIN(Performed 09/11/2015) * HEPATITIS B SURFACE ANTIBODY(Performed 09/11/2015) * HEPATITIS B SURFACE ANTIGEN W RFLX CONFIRMATION(Performed 09/11/2015) * HEPATITIS C ANTIBODY(Performed 09/11/2015) * [id number]-7-LOPRAGEXFAU BLOOD(Performed 09/11/2015) * GLUCOSE ACCUCHECK(Performed 09/11/2015) * XR CHEST 1VW PORTABLE(Performed 09/11/2015) * LACTIC ACID BLOOD(Performed 09/11/2015) * GLUCOSE ACCUCHECK(Performed 09/11/2015) * AMMONIA(Performed 09/11/2015) * CULTURE BLOOD(Performed 09/11/2015) * CULTURE BLOOD(Performed 09/11/2015) * OSMOLALITY BLOOD(Performed 09/11/2015) * LIPASE BLOOD(Performed 09/11/2015) * PTT [facility](Performed 09/11/2015) * PT-INR [facility](Performed 09/11/2015) * BASIC METABOLIC PANEL (CALCIUM TOTAL)(Performed 09/11/2015) * PHOSPHORUS BLOOD(Performed 09/11/2015) * MAGNESIUM BLOOD(Performed 09/11/2015) * HEPATIC FUNCTION PANEL(Performed 09/11/2015) * CBC W AUTO DIFFERENTIAL(Performed 09/11/2015) * CBC W AUTO DIFFERENTIAL(Performed 09/11/2015) Results * TACROLIMUS LEVEL (07/15/2024 8:06 AM SALES ACTIVITY MANAGER) Only the most recent of82 resultswithin the time period is included. Tacrolimus 6.2 mcg/L [facility] Comment: No definitive therapeutic or toxic ranges have been established. Optimal blood drug levels are influenced by type of transplant, patient response, time post- transplant, co-administration of other drugs, and drug formulation. The following trough range is a suggested guideline: 5.0-20.0 mcg/L. Test Performed at: [facility] [id number] [place], [place] ??[phone] KAMAR ALEXANDRE MD Blood BLOOD SPECIMEN / Unknown 07/15/2024 8:06 AM SALES ACTIVITY MANAGER 07/15/2024 8:07 AM SALES ACTIVITY MANAGER Ramon Morales MD LAB - THERAPEUTIC DR NICK MONITORING ORDERABLES [facility] [address] [place] [address] * (ABNORMAL) CBC WITH DIFFERENTIAL (07/15/2024 8:06 AM SALES ACTIVITY MANAGER) Only the most recent of132 resultswithin the time period is included. White Blood Cell Count 3.6(L) 3.8 - [...] 0.6 % [facility] Comment: Test Performed at: [facility] [address] [place], [place] ??[phone] KAMAR ALEXANDRE MD Blood BLOOD SPECIMEN / Unknown 07/15/2024 8:06 AM SALES ACTIVITY MANAGER 07/15/2024 8:07 AM SALES ACTIVITY MANAGER Ramon Morales MD LAB - HEMATOLOGY ORD ERABLES [facility] [address] [place] [address] * (ABNORMAL) COMPREHENSIVE METABOLIC PANEL (07/15/2024 8:06 AM SALES ACTIVITY MANAGER) Only the most recent of51 resultswithin the time period is included. Glucose 149(H) 65 - 99 mg/dL [facility] [...] 73m2 [facility] BUN/Creatinine Ratio SEE NOTE: 6 (calc) [facility] Comment: ?? Not Reported: BUN [...] 46 U/L [facility] Comment: Test Performed at: [facility] [address] [place] [address] ??[phone] KAMAR ALEXANDRE MD Blood BLOOD SPECIMEN / Unknown 07/15/2024 8:06 AM SALES ACTIVITY MANAGER 07/15/2024 8:07 AM SALES ACTIVITY MANAGER Ramon Morales MD LAB - CHEMISTRY LUIS ENRIQUE CELIS Performing Organization Address City/[facility]/ZIP Co de Phone Number [facility] [phone] [place] [address] * (ABNORMAL) DIFFERENTIAL MANUAL REFLXED III (02/12/2024 7:43 AM CDT) Only the most recent of3 resultswithin the time period is included. Neutrophil Absolute 2442 1500 - 7800 cells/uL [facility] Absolute Bands [facility] Metamyelocytes Absolute [facility] Myelocytes Absolute 37(H) 0 cells/uL [facility] Absolute Prolymphocytes [facility] Lymphocytes Absolute 725(L) 850 - 3900 cells/uL [facility] Absolute Reactive Lymphocytes [facility] Absolute Prolymphocytes [facility] Absolute Plasma Cells [facility] Absolute Monocytes 344 200 - 950 cells/uL [facility] Eosinophils Absolute 74 15 - 500 cells/uL [facility] Basophils Absolute 78 0 - 200 cells/uL [facility] Absolute Blasts [facility] nRBC Absolute [facility] Granulocytes % 66.0 % [facility] Band Neutrophil [facility] Metamyelocytes [facility] Myelocytes 1.0(H) % [facility] Promyelocytes [facility] Lymphocytes % 19.6 % [facility] Lymphocyte Reactive [facility] Prolymphocytes [facility] Plasma Cell [facility] Monocytes % 9.3 % [facility] Eosinophils % 2.0 % [facility] Basophils % 2.1 % [facility] Blasts [facility] nRBC [facility] Platelet Estimation [facility] CBC Morphology [facility] Comments [facility] See Note See Below [facility] Comment: Although an automated CBC was ordered, our instrumentation detected an abnormality on your patient's specimen requiring us to perform a manual review. Test Performed at: [facility] [address] [place], [place] ??[phone] KAMAR ALEXANDRE MD 02/12/2024 7:43 AM CDT 02/12/2024 7:43 AM CDT Ramon Morales MD LAB - HEMATOLOGY ORD ERATRINITY Performing Organization Address City/[facility]/ZIP Co de Phone Number [facility] [id number] [place] [address] * MRI ABDOMEN W MRCP WWO CONT W3D (12/06/2023 11:29 AM CDT) Anatomical Region Laterality Modality Abdomen Magnetic Resonan ce 12/06/2023 11:3 7 AM CDT Impressions 12/06/2023 4:25 PM CDT IMPRESSION: 1.Postoperative changes of orthotopic liver transplant without evidence of arterially hyperenhancing observation. 2.Sequelae of portal hypertension including splenomegaly, and prominent upper abdominal varices. 3.0.8 cm cystic lesion in the pancreatic neck communicating to the main pancreatic duct, unchanged from 2018, compatible with IPMN. 4.2.0 cm cystic lesion in the pancreatic head/uncinate process, unchanged from 2018, also favored to represent IPMN. > Dictated by Reshma Hairston MD (radiology therapist). I, Raymond Dean MD have personally reviewed and interpreted this examination/study. > Interpreting Provider: Raymond Dean MD on 12/06/2023 4:25 PM Narrative 12/06/2023 4:25 PM CDT EXAMINATION: MRI ABDOMEN W MRCP WWO CONT W3D DATE/TIME OF EXAM: ??12/06/2023 11:29 AM, LOCATION ??[facility] HISTORY: I10: Benign essential HTN Z94.4: S/P liver transplant (HCC) Z79.60: Long-term use of immunosuppressant medication D49.0: IPMN (intraductal papillary mucinous neoplasm) COMPARISON: MRI abdomen without and with contrast dated 10/18/2022, CT chest without contrast dated 10/18/2022, CT liver protocol dated 09/19/2017 TECHNIQUE: MRI of the abdomen was performed prior to and following the uneventful administration of intravenous gadolinium contrast according to standard protocol, including dynamic imaging for MRCP. Image data was analyzed on a dedicated 3-D workstation for the MRCP portion of the exam. CONTRAST: GADOBENATE DIMEGLUMINE 529 MG/ML IV SOLN:20 mL FINDINGS: MRI: Lower Chest: Normal. Hepatobiliary system Liver morphology: Postoperative changes of orthotopic liver transplant. The transplant liver is normal in size with smooth contour. Steatosis: None. 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 Spleen: Enlarged, measuring 15.6 cm craniocaudally. Ascites: Trace perisplenic ascites. Gallbladder: Absent. Focal liver observations No arterially enhancing observations are identified. Hepatic vasculature Portal and hepatic veins: The main, right and left portal veins, splenic vein, superior mesenteric vein are patent. Arterial anatomy: Conventional. Retroperitoneum Pancreas: Mild pancreatic parenchymal atrophy. There is a lobulated cystic lesion in the pancreatic head/uncinate process measuring 2.0 x 1.1 cm (series 4 image 17), unchanged in size compared to 04/03/2018. 0.8 cm cystic lesion in the pancreatic neck communicating to the main pancreatic duct (series 4 image 17), unchanged in size from 2018. Adrenals: Normal. Kidneys: Normal. Lymph nodes: No enlarged abdominopelvic lymph nodes. Gastrointestinal: The bowel and mesentery are normal. Other findings: Gynecomastia. Focal kyphosis centered in the T12-L1 level. Chronic compression deformity of L1 and L2 vertebral bodies with mild bone marrow edema, likely degenerative. L1 and L3 kyphoplasty with better demonstrated on the prior CT from 09/19/2017. ?? MRCP: The intrahepatic and extrahepatic bile ducts are nondilated. No filling defect or stricture is seen in the biliary system. The main pancreatic duct is nondilated. Procedure Note Raymond Dean MD - 12/06/2023 EXAMINATION: MRI ABDOMEN W MRCP WWO CONT W3D DATE/TIME OF EXAM: 12/06/2023 11:29 AM, LOCATION [facility] HISTORY: I10: Benign essential HTN Z94.4: S/P liver transplant (HCC) Z79.60: Long-term use of immunosuppressant medication D49.0: IPMN (intraductal papillary mucinous neoplasm) COMPARISON: MRI abdomen without and with contrast dated 10/18/2022, CTchest without contrast dated 10/18/2022, CT liver protocol dated 09/19/2017 TECHNIQUE: MRI of the abdomen was performed prior to and following the uneventful administration of intravenous gadolinium contrast accordingto standard protocol, including dynamic imaging for MRCP. Image data was analyzed on a dedicated 3-D workstation for the MRCP portion of theexam. CONTRAST: GADOBENATE DIMEGLUMINE 529 MG/ML IV SOLN:20 mL FINDINGS: MRI: Lower Chest: Normal. Hepatobiliary system Liver morphology: Postoperative changes of orthotopic liver transplant.The transplant liver is normal in size with smooth contour. Steatosis: None. 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 Spleen: Enlarged, measuring 15.6 cm craniocaudally. Ascites: Trace perisplenic ascites. Gallbladder: Absent. Focal liver observations No arterially enhancing observations are identified. Hepatic vasculature Portal and hepatic veins: The main, right and left portal veins, splenic vein, superior mesenteric vein are patent. Arterial anatomy: Conventional. Retroperitoneum Pancreas: Mild pancreatic parenchymal atrophy. There is a lobulatedcystic lesion in the pancreatic head/uncinate process measuring 2.0 x 1.1 cm (series 4 image 17), unchanged in size compared to 04/03/2018. 0.8 cmcystic lesion in the pancreatic neck communicating to the main pancreatic duct (series 4 image 17), unchanged in size from 2018. Adrenals: Normal. Kidneys: Normal. Lymph nodes: No enlarged abdominopelvic lymph nodes. Gastrointestinal: The bowel and mesentery are normal. Other findings: Gynecomastia. Focal kyphosis centered in the T12-L1 level. Chronic compression deformity of L1 and L2 vertebral bodies with mild bonemarrow edema, likely degenerative. L1 and L3 kyphoplasty with betterdemonstrated on the prior CT from 09/19/2017. MRCP: The intrahepatic and extrahepatic bile ducts are nondilated. No filling defect or stricture is seen in the biliary system. The main pancreatic duct is nondilated. IMPRESSION: 1.Postoperative changes of orthotopic liver transplant without evidenceof arterially hyperenhancing observation. 2.Sequelae of portal hypertension including splenomegaly, and prominent upper abdominal varices. 3.0.8 cm cystic lesion in the pancreatic neck communicating to the main pancreatic duct, unchanged from 2018, compatible with IPMN. 4.2.0 cm cystic lesion in the pancreatic head/uncinate process,unchanged from 2018, also favored to represent IPMN. > Dictated by Reshma Hairston MD (radiology therapist). I, Raymond Dean MD have personally reviewed and interpreted this examination/study. > Interpreting Provider: Raymond Dean MD on 12/06/2023 4:25 PM Ramon Morales MD MR ORDERABLES * (ABNORMAL) LIPID PROFILE (05/22/2023 8:07 AM CDT) Only the most recent of7 resultswithin the time period is included. Cholesterol 168 <200 mg/dL [facility] HDL Cholesterol 42 > OR = 40 mg/dL [facility] Triglycerides 123 <150 mg/dL [facility] LDL Calculated 104(H) mg/dL (calc) [facility] Comment: Reference range: <100 Desirable range <100 mg/dL for primary prevention; ?? <70 mg/dL for patients with CHD or diabetic patients with > or = 2 CHD risk factors. LDL-C is now calculated using the Willem calculation, which is a validated novel method providing better accuracy than the Friedewald equation in the estimation of LDL-C. Mick SS et al. BRODIE. 2013;310(19): 9063-1780 (http://education.OKKAM/faq/VIZ134) CHOL/HDLC RATIO 4.0 <5.0 (calc) [facility] Non HDL Cholesterol 126 <130 mg/dL (calc) [facility] Comment: For patients with diabetes plus 1 major ASCVD risk factor, treating to a non-HDL-C goal of <100 mg/dL (LDL-C of <70 mg/dL) is considered a therapeutic option. Test Performed at: [facility] [address] [place], [place] ??[phone] KAMAR ALEXANDRE MD 05/22/2023 8:07 AM CDT 05/22/2023 8:07 AM CDT Ramon Morales MD LAB - CHEMISTRY LUIS ENRIQUE CELIS [facility] Organization Address City/State/ZIP Co de Phone Number [facility] [id number] [place] [address] * MRI ABDOMEN WWO CONTRAST (10/18/2022 10:40 AM SALES ACTIVITY MANAGER) Only the most recent of10 resultswithin the time period is included. Anatomical Region Laterality Modality Abdomen Magnetic Resonan ce 10/18/2022 11:2 1 AM SALES ACTIVITY MANAGER Impressions 10/18/2022 11:36 AM SALES ACTIVITY MANAGER Impression: 1.Redemonstrated postoperative changes from orthotopic liver transplantation without evidence of arterially enhancing observations to suggest hepatocellular carcinoma. No evidence of cirrhosis. 2.Previously noted areas of ill-defined peripheral enhancement resolved since the prior examination, consistent with vascular shunting. 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 Annual follow-up is recommended. 4.Patent splenorenal portal venous anastomosis with a slightly decreased dilatation of the splenorenal confluence. Report dictated by FADY ESPARZA MD, MD (radiology therapist). 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 Findings: Lower Chest: Normal. Hepatobiliary system Liver morphology: Operative changes from orthotopic liver transplantation are noted. Hepatic morphology is normal without surface nodularity to suggest cirrhosis. Steatosis: None. Varices: Multiple perisplenic varices are noted. Spleen: Enlarged measuring 15.5 cm in length. Ascites: Trace volume. Focal liver observations No arterially enhancing observations concerning for hepatocellular carcinoma. Previously noted areas of peripheral wedge-shaped ill-defined enhancement favoring vascular shunting of resolved since the prior exam. Hepatic vasculature Portal and hepatic veins: Redemonstrated splenorenal anastomosis with large perisplenic varices. 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 The main portal vein is patent and nondilated. The hepatic veins are patent. Arterial anatomy: Conventional. Gallbladder and bile ducts Gallbladder: Absent. Bile ducts: Nondilated. Retroperitoneum Pancreas: A stable lobulated cystic lesion in the pancreatic head/uncinate process measuring 1.1 x 2.7 cm (series 24 image 21), previously measuring 1.3 x 1.8 cm a remeasurement on the same approximate location. There is suggestion of connection to the main pancreatic duct. A smaller T2 hyperintense cystic lesion measuring 8 mm is seen anteriorly in the pancreatic head/neck (series 24 image 21), stable. Redemonstrated connection and main pancreatic duct is noted. No suspicious features such as postcontrast enhancement is noted. No diffusion restriction is identified. Adrenals: Normal. Kidneys: Normal. Lymph nodes: No lymphadenopathy. Gastrointestinal: Imaged bowel and mesentery are normal. Other findings: None. 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 Findings: Lower Chest: Normal. Hepatobiliary system Liver morphology: Operative changes from orthotopic livertransplantation are noted. Hepatic morphology is normal without surface nodularity to suggest cirrhosis. Steatosis: None. Varices: Multiple perisplenic varices are noted. Spleen: Enlarged measuring 15.5 cm in length. Ascites: Trace volume. Focal liver observations No arterially enhancing observations concerning for hepatocellular carcinoma. Previously noted areas of peripheral wedge-shaped ill-defined enhancement favoring vascular shunting of resolved since the prior exam. Hepatic vasculature Portal and hepatic veins: Redemonstrated splenorenal anastomosis withlarge perisplenic varices. Aneurysmal dilatation of the splenorenal confluenceis again noted, measuring 5.7 x 5.7 cm in maximum axial plane, previously measuring 6.4 x 6.1 cm. The main portal vein is patent and nondilated.The hepatic veins are patent. Arterial anatomy: Conventional. Gallbladder and bile ducts Gallbladder: Absent. Bile ducts: Nondilated. Retroperitoneum Pancreas: A stable lobulated cystic lesion in the pancreatichead/uncinate process measuring 1.1 x 2.7 cm (series 24 image 21), previouslymeasuring 1.3 x 1.8 cm a remeasurement on the same approximate location. There is suggestion of connection to the main pancreatic duct. A smaller T2 hyperintense cystic lesion measuring 8 mm is seen anteriorly in the pancreatic head/neck (series 24 image 21), stable. Redemonstrated connection and main pancreatic duct is noted. No suspicious featuressuch as postcontrast enhancement is noted. No diffusion restriction is identified. Adrenals: Normal. Kidneys: Normal. Lymph nodes: No lymphadenopathy. Gastrointestinal: Imaged bowel and mesentery are normal. Other findings: None. Impression: 1.Redemonstrated postoperative changes from orthotopic liver transplantation without evidence of arterially enhancing observations to suggest hepatocellular carcinoma. No evidence of cirrhosis. 2.Previously noted areas of ill-defined peripheral enhancement resolved since the prior examination, consistent with vascular shunting. 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 Annual follow-up is recommended. 4.Patent splenorenal portal venous anastomosis with a slightly decreased dilatation of the splenorenal confluence. Report dictated by FADY ESPARZA MD, MD (radiology therapist). > Interpreting Provider: FADY ESPARZA MD on 10/18/2022 11:36 AM Ramon Morales MD MR ORDERABLES * CT CHEST WO CONTRAST (10/18/2022 9:10 AM SALES ACTIVITY MANAGER) Only the most recent of9 resultswithin the time period is included. Anatomical Region Laterality Modality Chest Computed Tomogra phy 10/18/2022 10:1 8 AM SALES ACTIVITY MANAGER Impressions 10/18/2022 4:41 PM SALES ACTIVITY MANAGER Impression: Unchanged bilateral nodules measuring up to 2 mm. > Dictated by Jose Anthony MD, MD (radiology therapist). > Dictated by Jose Anthony MD (Hat Maker) 10/18/2022 2:09 PM Raymond Reyes MD have personally reviewed and interpreted this examination/study. 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 Findings: Evaluation of visceral and vascular structures is degraded due to lack of intravenous contrast administration. Lower Neck and Axillae: Normal. No lymphadenopathy. Lungs: No pulmonary parenchymal or airway process is present. Known and unchanged pulmonary nodules as described below. 2 mm nodule in the right middle lobe (series 4 image 57). 2 mm nodule in the left upper lobe (series 4 image 18). Multiple other sub-2 mm nodules are seen in the bilateral lungs. No pleural fluid or pneumothorax is present. Heart and Pericardium: The cardiac chambers are normal in size. No pericardial fluid or thickening is present. Coronary artery calcifications are present. Mediastinum and Mary: No enlarged lymph nodes are present. Thoracic Vasculature: The thoracic aorta is normal in course and caliber with mild atherosclerosis present. Bones and Chest Wall: Bone windows demonstrate no suspicious lytic or blastic lesions. Partially visualized L1 kyphoplasty changes. Mild to moderate multilevel degenerative changes of the thoracic and upper lumbar spine. Gynecomastia Upper Abdomen: Postsurgical changes from orthotopic liver transplant. 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 Findings: Evaluation of visceral and vascular structures is degraded due to lackof intravenous contrast administration. Lower Neck and Axillae: Normal. No lymphadenopathy. Lungs: No pulmonary parenchymal or airway process is present. Known andunchanged pulmonary nodules as described below. 2 mm nodule in the right middle lobe (series 4 image 57). 2 mm nodule in the left upper lobe (series 4 image 18). Multiple other sub-2 mm nodules are seen in the bilateral lungs. No pleural fluid or pneumothorax is present. Heart and Pericardium: The cardiac chambers are normal in size. No pericardial fluid orthickening is present. Coronary artery calcifications are present. Mediastinum and Mary: No enlarged lymph nodes are present. Thoracic Vasculature: The thoracic aorta is normal in course and caliber with mild atherosclerosis present. Bones and Chest Wall: Bone windows demonstrate no suspicious lytic or blastic lesions.Partially visualized L1 kyphoplasty changes. Mild to moderate multileveldegenerative changes of the thoracic and upper lumbar spine. Gynecomastia Upper Abdomen: Postsurgical changes from orthotopic liver transplant. Splenomegaly with extensive varices, unchanged Impression: Unchanged bilateral nodules measuring up to 2 mm. > Dictated by Jose Anthony MD, MD (radiology therapist). > Dictated by Jose Anthony MD (Hat Maker) 10/18/2022 2:09 PM I, Raymond Dean MD have personally reviewed and interpreted this examination/study. > Interpreting Provider: Raymond Dean MD on 10/18/2022 4:41 PM Ramon Morales MD CT ORDERABLES * (ABNORMAL) PLATELET ESTIMATE REFLEXED (04/19/2022 7:55 AM CDT) Only the most recent of29 resultswithin the time period is included. Platelet Estimation DECREASED (A) [facility] Comment: Test Performed at: [facility] [id number] [place] [address] ??[phone] PETER HOFFMANN DO,MPH 04/19/2022 7:55 AM CDT 04/19/2022 7:55 AM CDT Ramon Morales MD LAB - HEMATOLOGY ORD ERABLES [facility] [address] [place] [address] * CREATININE - POCT INTERFACED (10/17/2021 10:28 AM SALES ACTIVITY MANAGER) Only the most recent of2 resultswithin the time period is included. Creatinine POCT 0.64 0.30 - 1.30 mg/dL 10/17/2021 10:30 AM SALES ACTIVITY MANAGER [facility] eGFR >90 >90 mL/min/1.7 3 m2 10/17/2021 10:30 AM SALES ACTIVITY MANAGER [facility] Blood BLOOD SPECIMEN / Unknown 10/17/2021 10:28 AM SALES ACTIVITY MANAGER 10/17/2021 10:30 AM SALES ACTIVITY MANAGER Ramon Morales MD LAB - POINT OF CARE ORDERABLES [facility] [address] [place] [address], [facility] [phone] * (ABNORMAL) BASIC METABOLIC PANEL (CALCIUM TOTAL) (04/12/2021 7:54 AM CDT) Only the most recent of102 resultswithin the time period is included. Glucose 124(H) 65 - 99 mg/dL [facility] Comment: ? Fasting reference interval For someone without known diabetes, a glucose value between 100 and 125 mg/dL is consistent with prediabetes and should be confirmed with a follow-up test. BUN 33(H) 7 - 25 mg/dL [facility] Creatinine 1.33(H) 0.70 - 1.25 mg/dL [facility] Comment: For patients >49 years of age, the reference limit for Creatinine is approximately 13% higher for people identified as -Gambian. eGFR by MDRD 56(L) > OR = 60 mL/min/1. 73m2 [facility] eGFR by MDRD 65 > OR = 60 mL/min/1. 73m2 [facility] BUN/Creatinine Ratio 25(H) 6 - 22 (calc) [facility] Sodium 139 135 - 146 mmol/L [facility] Potassium 4.7 3.5 - 5.3 mmol/L [facility] Chloride 101 98 - 110 mmol/L [facility] CO2 30 20 - 32 mmol/L [facility] Calcium 9.4 8.6 - 10.3 mg/dL [facility] Comment: Test Performed at: [facility] [address] [place], [place] ??[phone] PETER HOFFMANN DO,MPH Blood BLOOD SPECIMEN / Unknown 04/12/2021 7:54 AM CDT 04/12/2021 7:54 AM CDT Ramon Morales MD LAB - CHEMISTRY LUIS ENRIQUE CELIS Performing Organization Address [facility] de Phone Number [facility] [id number] [place] [address] * HEPATIC FUNCTION PANEL (04/12/2021 7:54 AM CDT) Only the most recent of76 resultswithin the time period is included. Protein Total 6.3 6.1 - 8.1 g/dL [facility] Albumin 4.1 3.6 - 5.1 g/dL [facility] Globulin Total 2.2 1.9 - 3.7 g/dL (calc) [facility] Albumin/Globulin Ratio 1.9 1.0 - 2.5 (calc) [facility] Bilirubin Total 0.6 0.2 - 1.2 mg/dL [facility] Bilirubin Direct 0.1 < OR = 0.2 mg/dL [facility] Bilirubin Indirect 0.5 0.2 - 1.2 mg/dL (calc) [facility] Alkaline Phosphatase 49 35 - 144 U/L [facility] AST 10 10 - 35 U/L [facility] ALT 12 9 - 46 U/L [facility] Comment: Test Performed at: [facility] [place], [place] ??[phone] PETER HOFFMANN DO,MPH Blood BLOOD SPECIMEN / Unknown 04/12/2021 7:54 AM CDT 04/12/2021 7:54 AM CDT Ramon Morales MD LAB - CHEMISTRY LUIS ENRIQUE CELIS Performing Organization Address [facility] de Phone Number [facility] [address] [place] [address] * MAGNESIUM BLOOD (04/12/2021 7:54 AM CDT) Only the most recent of82 resultswithin the time period is included. Magnesium 1.9 1.5 - 2.5 mg/dL [facility] Comment: Test Performed at: [facility] [address] [place], [place] ??[phone] PETER HOFFMANN DO,MPH Blood BLOOD SPECIMEN / Unknown 04/12/2021 7:54 AM CDT 04/12/2021 7:54 AM CDT Ramon Morales MD LAB - CHEMISTRY LUIS ENRIQUE CELIS [facility] Organization Address City/State/ZIP Co de Phone Number [facility] [address] [place] [address] * BONE DENSITY AXIAL SKELETON(1OR MORE SITES)[id number] (11/16/2020 3:21 PM SALES ACTIVITY MANAGER) Anatomical Region Laterality Modality Other 11/16/2020 5:01 PM SALES ACTIVITY MANAGER Addenda Addendum by Jj Mancilla DO on 11/16/2020 5:27 PM SALES ACTIVITY MANAGER ORIGINAL REPORT Examination: Dual energy x-ray absorptiometry of the lumbar spine and hip. Clinical Indication: S32.000D: Compression fracture of lumbar vertebra with routine healing, unspecified lumbar vertebral level, subsequent encounter Z94.4: S/P liver transplant D84.9: Immunosuppressed status E11.65: Type 2 diabetes mellitus with hyperglycemia, with long-term current use of insulin Z79.4: Type 2 diabetes mellitus with hyperglycemia, with long-term current use of insulin S32.000D: Closed wedge com Findings: Detailed data from the exam is sent separately to the ordering physician and is also available on [employer], the Radiology Department's computerized picture archive system. Patient's height 71 in; weight 201 lb. SUMMARY: No prior study available for comparison. BONE MINERAL DENSITY (BMD) ??lumbar spine (L1-4): Normal; T-score 1.3 BONE MINERAL DENSITY (BMD) right hip: Normal; T-score -0.8 FRAX 10 year fracture risk not reported because T score of spine total, hip total, and femoral neck at or above -1.0. Definitions: T-score = Standard Deviation Normal: A value for bone mineral density(BMD) within 1 standard deviation of the young adult reference mean. (T-score above -1) Low bone mass(osteopenia): A value for bone mineral density(BMD) more than 1 standard deviation below the young adult mean, but less than 2.5 standard deviations below the young adult mean. ( T-score between -1 and -2.5) Osteoporosis: A value for bone mineral density 2.5 standard deviations or more below the young adult mean. ( T-score at or below -2.5) Severe osteoporosis: Osteoporosis + the presence of one or more fragility fractures. Please note that T-score values are important in determining increased risk for fractures. The T-score represents the standard deviation above or below the mean bone mineral density for young adults. With each -1 standard deviation decrease in bone mineral density, the risk for fracture doubles exponentially. A T-score of -1 will double the risk , and -2 will be 4 times the risk. As a rule of thumb, a T-score of -1 to -2.5 indicates increasing degrees of osteopenia. This report was approved ??by Miguel Angel Talbert ?? on 11/16/2020 5:03 PM . I, Dr. JJ MANCILLA D.O. have personally reviewed and interpreted this examination/study. This report was electronically signed by JJ MANCILLA D.O. ??on 11/16/2020 5:07 PM . ADDENDUM #1 Evaluation of the lumbar spine is incomplete due to kyphoplasty at L1 and L3 and it should be disregarded. The reported T score is only for L4. This report was approved ??by Miguel Angel Talbert ?? on 11/16/2020 5:[address] JJ Reyes D.O. have personally reviewed and interpreted this examination/study. This report was electronically signed by JJ MANCILLA D.O. ??on 11/16/2020 5:24 PM . Narrative 11/16/2020 5:07 PM SALES ACTIVITY MANAGER Examination: Dual energy x-ray absorptiometry of the lumbar spine and hip. Clinical Indication: S32.000D: Compression fracture of lumbar vertebra with routine healing, unspecified lumbar vertebral level, subsequent encounter Z94.4: S/P liver transplant D84.9: Immunosuppressed status E11.65: Type 2 diabetes mellitus with hyperglycemia, with long-term current use of insulin Z79.4: Type 2 diabetes mellitus with hyperglycemia, with long-term current use of insulin S32.000D: Closed wedge com Findings: Detailed data from the exam is sent separately to the ordering physician and is also available on [employer], the Radiology Department's computerized picture archive system. Patient's height 71 in; weight 201 lb. SUMMARY: No prior study available for comparison. BONE MINERAL DENSITY (BMD) ??lumbar spine (L1-4): Normal; T-score 1.3 BONE MINERAL DENSITY (BMD) right hip: Normal; T-score -0.8 FRAX 10 year fracture risk not reported because T score of spine total, hip total, and femoral neck at or above -1.0. Definitions: T-score = Standard Deviation Normal: A value for bone mineral density(BMD) within 1 standard deviation of the young adult reference mean. (T-score above -1) Low bone mass(osteopenia): A value for bone mineral density(BMD) more than 1 standard deviation below the young adult mean, but less than 2.5 standard deviations below the young adult mean. ( T-score between -1 and -2.5) Osteoporosis: A value for bone mineral density 2.5 standard deviations or more below the young adult mean. ( T-score at or below -2.5) Severe osteoporosis: Osteoporosis + the presence of one or more fragility fractures. Please note that T-score values are important in determining increased risk for fractures. The T-score represents the standard deviation above or below the mean bone mineral density for young adults. With each -1 standard deviation decrease in bone mineral density, the risk for fracture doubles exponentially. A T-score of -1 will double the risk , and -2 will be 4 times the risk. As a rule of thumb, a T-score of -1 to -2.5 indicates increasing degrees of osteopenia. This report was approved ??by Miguel Angel Talbert ?? on 11/16/2020 5:03 PM . I, Dr. JJ MANCILLA D.O. have personally reviewed and interpreted this examination/study. This report was electronically signed by JJ MANCILLA D.O. ??on 11/16/2020 5:07 PM . Procedure Note Jj Mancilla, DO - 11/16/2020 Examination: Dual energy x-ray absorptiometry of the lumbar spine andhip. Clinical Indication: S32.000D: Compression fracture of lumbar vertebra with routine healing, unspecified lumbar vertebral level, subsequent encounter Z94.4: S/P liver transplant D84.9: Immunosuppressed status E11.65: Type 2 diabetes mellitus with hyperglycemia, with long-term current use of insulin Z79.4: Type 2 diabetes mellitus with hyperglycemia, with long-termcurrent use of insulin S32.000D: Closed wedge com Findings: Detailed data from the exam is sent separately to the ordering physician and is also available on [employer], the Radiology Department's computerized picture archive system. Patient's height 71 in; weight 201 lb. SUMMARY: No prior study available for comparison. BONE MINERAL DENSITY (BMD) lumbar spine (L1-4): Normal; T-score 1.3 BONE MINERAL DENSITY (BMD) right hip: Normal; T-score -0.8 FRAX 10 year fracture risk not reported because T score of spine total, hip total, and femoral neck at or above -1.0. Definitions: T-score = Standard Deviation Normal: A value for bone mineral density(BMD) within 1 standarddeviation of the young adult reference mean. (T-score above -1) Low bone mass(osteopenia): A value for bone mineral density(BMD) morethan 1 standard deviation below the young adult mean, but less than 2.5 standard deviations below the young adult mean. ( T-score between -1 and -2.5) Osteoporosis: A value for bone mineral density 2.5 standard deviationsor more below the young adult mean. ( T-score at or below -2.5) Severe osteoporosis: Osteoporosis + the presence of one or morefragility fractures. Please note that T-score values are important in determining increased risk for fractures. The T-score represents the standard deviation aboveor below the mean bone mineral density for young adults. With each -1 standard deviation decrease in bone mineral density, the risk forfracture doubles exponentially. A T-score of -1 will double the risk , and -2will be 4 times the risk. As a rule of thumb, a T-score of -1 to -2.5indicates increasing degrees of osteopenia. This report was approved by Miguel Angel Talbert on 11/16/2020 5:[address] JJ Reyes D.O. have personally reviewed and interpreted this examination/study. This report was electronically signed by JJ MANCILLA D.O. on11/16/2020 5:07 PM . Ramon Morales MD DEXA ORDERABLES * CT FACIAL BONES WO CONTRAST (11/16/2020 1:15 PM SALES ACTIVITY MANAGER) Anatomical Region Laterality Modality Head Computed Tomogra phy 11/16/2020 1:18 PM SALES ACTIVITY MANAGER Impressions 11/16/2020 8:11 PM SALES ACTIVITY MANAGER IMPRESSION: 1.No acute intracranial hemorrhage, midline shift, or significant mass effect. 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 The adjacent bony structures are unremarkable. 3.Mild anterior subluxation of the left temporomandibular joint is possibly due to type II occlusion. There is no fracture or degenerative disc disease. Please correlate clinically. Dictated by Mayur Victoria DO (vice president of talent management) Amy, Dr. RICO COLEMAN have personally reviewed and interpreted this examination/study. This report was electronically signed by RICO COLEMAN ??on 11/16/2020 8:11 PM . Narrative 11/16/2020 8:11 PM SALES ACTIVITY MANAGER EXAMINATION: 1. CT OF THE HEAD WITHOUT CONTRAST 2. CT OF THE MAXILLOFACIAL BONES WITHOUT CONTRAST HISTORY: W19.XXXA: Fall, initial encounter TECHNIQUE: CT of the head and maxillofacial bones, orbits, and paranasal sinuses was performed without contrast according to standard protocol. COMPARISON: CT head without contrast dated 01/07/2018 FINDINGS: HEAD: No acute intracranial hemorrhage is identified. 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 This was present on the prior exam and measured approximately 0.9 x 0.8 x 0.6 cm. There is mild cerebral volume loss with associated ex vacuo ventricular dilatation which has a slightly progressed in the interval. 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 The basilar cisterns are patent. No mass effect or midline shift is seen. The vences-white matter differentiation is normal. Periventricular white matter hypoattenuation is stable, indicative of chronic small vessel ischemic disease. There is vascular calcification of the carotid siphons. No acute fracture is identified. 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 No abnormality in the adjacent cribriform plate, santosh mir or fovea ethmoiditis is identified. The orbits and orbital contents appear normal. There is mild mucosal thickening of the left maxillary sinus. Otherwise, the paranasal sinuses are clear. 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 Otherwise, the hard palate and mandible are unremarkable. No fracture or osteoarthritis and temporomandibular joints is evident. No acute facial bone fractures are identified. The middle ear cavities and the mastoid air cells are clear. No soft tissue abnormality is identified. Dental caries are noted in the right third molar. Procedure Note Rico Coleman MD - 11/16/2020 EXAMINATION: 1. CT OF THE HEAD WITHOUT CONTRAST 2. CT OF THE MAXILLOFACIAL BONES WITHOUT CONTRAST HISTORY: W19.XXXA: Fall, initial encounter TECHNIQUE: CT of the head and maxillofacial bones, orbits, and paranasal sinuses was performed without contrast according to standard protocol. COMPARISON: CT head without contrast dated 01/07/2018 FINDINGS: HEAD: No acute intracranial hemorrhage is identified. 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 This was present on the prior exam and measuredapproximately 0.9 x 0.8 x 0.6 cm. There is mild cerebral volume loss with associated ex vacuo ventricular dilatation which has a slightly progressed in the interval. An oldlacunar infarction of right external capsule and an old small infarction in the periventricular left frontal segal radiata have developed in theinterval and were not present previously. The basilar cisterns are patent. No mass effect or midline shift isseen. The vences-white matter differentiation is normal. Periventricular white matter hypoattenuation is stable, indicative of chronic small vessel ischemic disease. There is vascular calcification of the carotidsiphons. No acute fracture is identified. 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 No abnormality inthe adjacent cribriform plate, santosh mir or fovea ethmoiditis is identified. The orbits and orbital contents appear normal. There is mild mucosal thickening of the left maxillary sinus. Otherwise, the paranasal sinuses are clear. 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 Otherwise, the hard palate and mandible are unremarkable. No fracture or osteoarthritis and temporomandibular joints is evident. No acute facial bone fractures are identified. The middle ear cavities and the mastoid air cells are clear. No soft tissue abnormality isidentified. Dental caries are noted in the right third molar. IMPRESSION: 1.No acute intracranial hemorrhage, midline shift, or significant mass effect. 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 The adjacent bony structures are unremarkable. 3.Mild anterior subluxation of the left temporomandibular joint is possibly due to type II occlusion. There is no fracture or degenerative disc disease. Please correlate clinically. Dictated by Mayur Victoria DO (vice president of talent management) I, Dr. RICO COLEMAN have personally reviewed and interpreted this examination/study. This report was electronically signed by RICO COLEMAN on 11/16/2020 8:11 PM . Teresa Connor MACHINING ENGINEER-EMERGENCY MAN CT ORDERABLES * CT HEAD WO CONTRAST (11/16/2020 1:15 PM SALES ACTIVITY MANAGER) Only the most recent of5 resultswithin the time period is included. Anatomical Region Laterality Modality Head Computed Tomogra phy 11/16/2020 1:18 PM SALES ACTIVITY MANAGER Impressions 11/16/2020 8:11 PM SALES ACTIVITY MANAGER IMPRESSION: 1.No acute intracranial hemorrhage, midline shift, or significant mass effect. 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 The adjacent bony structures are unremarkable. 3.Mild anterior subluxation of the left temporomandibular joint is possibly due to type II occlusion. There is no fracture or degenerative disc disease. Please correlate clinically. Dictated by Mayur Victoria DO (vice president of talent management) I, Dr. RICO COLEMAN have personally reviewed and interpreted this examination/study. This report was electronically signed by RICO COLEMAN ??on 11/16/2020 8:11 PM . Narrative 11/16/2020 8:11 PM SALES ACTIVITY MANAGER EXAMINATION: 1. CT OF THE HEAD WITHOUT CONTRAST 2. CT OF THE MAXILLOFACIAL BONES WITHOUT CONTRAST HISTORY: W19.XXXA: Fall, initial encounter TECHNIQUE: CT of the head and maxillofacial bones, orbits, and paranasal sinuses was performed without contrast according to standard protocol. COMPARISON: CT head without contrast dated 01/07/2018 FINDINGS: HEAD: No acute intracranial hemorrhage is identified. 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 This was present on the prior exam and measured approximately 0.9 x 0.8 x 0.6 cm. There is mild cerebral volume loss with associated ex vacuo ventricular dilatation which has a slightly progressed in the interval. 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 The basilar cisterns are patent. No mass effect or midline shift is seen. The vences-white matter differentiation is normal. Periventricular white matter hypoattenuation is stable, indicative of chronic small vessel ischemic disease. There is vascular calcification of the carotid siphons. No acute fracture is identified. 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 No abnormality in the adjacent cribriform plate, santosh mir or fovea ethmoiditis is identified. The orbits and orbital contents appear normal. There is mild mucosal thickening of the left maxillary sinus. Otherwise, the paranasal sinuses are clear. 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 Otherwise, the hard palate and mandible are unremarkable. No fracture or osteoarthritis and temporomandibular joints is evident. No acute facial bone fractures are identified. The middle ear cavities and the mastoid air cells are clear. No soft tissue abnormality is identified. Dental caries are noted in the right third molar. Procedure Note Rico Coleman MD - 11/16/2020 EXAMINATION: 1. CT OF THE HEAD WITHOUT CONTRAST 2. CT OF THE MAXILLOFACIAL BONES WITHOUT CONTRAST HISTORY: W19.XXXA: Fall, initial encounter TECHNIQUE: CT of the head and maxillofacial bones, orbits, and paranasal sinuses was performed without contrast according to standard protocol. COMPARISON: CT head without contrast dated 01/07/2018 FINDINGS: HEAD: No acute intracranial hemorrhage is identified. 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 This was present on the prior exam and measuredapproximately 0.9 x 0.8 x 0.6 cm. There is mild cerebral volume loss with associated ex vacuo ventricular dilatation which has a slightly progressed in the interval. An oldlacunar infarction of right external capsule and an old small infarction in the periventricular left frontal segal radiata have developed in theinterval and were not present previously. The basilar cisterns are patent. No mass effect or midline shift isseen. The vences-white matter differentiation is normal. Periventricular white matter hypoattenuation is stable, indicative of chronic small vessel ischemic disease. There is vascular calcification of the carotidsiphons. No acute fracture is identified. 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 No abnormality inthe adjacent cribriform plate, santosh mir or fovea ethmoiditis is identified. The orbits and orbital contents appear normal. There is mild mucosal thickening of the left maxillary sinus. Otherwise, the paranasal sinuses are clear. 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 Otherwise, the hard palate and mandible are unremarkable. No fracture or osteoarthritis and temporomandibular joints is evident. No acute facial bone fractures are identified. The middle ear cavities and the mastoid air cells are clear. No soft tissue abnormality isidentified. Dental caries are noted in the right third molar. IMPRESSION: 1.No acute intracranial hemorrhage, midline shift, or significant mass effect. 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 The adjacent bony structures are unremarkable. 3.Mild anterior subluxation of the left temporomandibular joint is possibly due to type II occlusion. There is no fracture or degenerative disc disease. Please correlate clinically. Dictated by Mayur Victoria DO (vice president of talent management) I, Dr. RICO COLEMAN have personally reviewed and interpreted this examination/study. This report was electronically signed by RICO COLEMAN on 11/16/2020 8:11 PM . Teresa W[address]TERS CT ORDERABLES * Laceration Repair (11/16/2020 12:46 PM SALES ACTIVITY MANAGER) Narrative Paula Cuevas MD - 11/16/2020 12:46 PM SALES ACTIVITY MANAGER Teresa Connor APRN-CNP ? 11/16/2020 ??6:38 PM Laceration Repair Date/Time: 11/16/2020 1:12 PM Performed by: Teresa Connor APRN-CNP Authorized by: Teresa Connor APRN-CNP Consent: ??Consent obtained: ??Verbal ??Consent given by: ??Patient ??Risks discussed: ??Infection, pain and poor cosmetic result ??Alternatives discussed: ??No treatment Anesthesia (see MAR for exact dosages): ??Anesthesia method: ??None Laceration details: ??Location: ??Face ??Face location: ??R eyebrow ??Length (cm): ??2.5 ??Depth (mm): ??1 Repair type: ??Repair type: ??Simple Pre-procedure details: ??Preparation: ??Patient was prepped and draped in usual sterile fashion Exploration: ??Hemostasis achieved with: ??Direct pressure ??Wound exploration: wound explored through full range of motion ?Wound extent: areolar tissue violated ?? Treatment: ??Area cleansed with: ??Betadine and saline ??Amount of cleaning: ??Standard ??Irrigation solution: ??Sterile saline ??Irrigation volume: ??200 ??Irrigation method: ??Syringe Skin repair: ??Repair method: ??Tissue adhesive Approximation: ??Approximation: ??Close Post-procedure details: ??Dressing: ??Open (no dressing) ??Patient tolerance of procedure: ??Tolerated well, no immediate complications Teresa Connor MACHINING ENGINEER-EMERGENCY MAN PROCEDURE/MINOR SURGICAL ORDERABLES * (ABNORMAL) CBC W/O DIFFERENTIAL (08/18/2020 8:22 AM SALES ACTIVITY MANAGER) Only the most recent of22 resultswithin the time period is included. Pathologist [facility] White Blood Cell Count 3.6(L) 3.8 - 10.8 Thousand/u L [facility] RBC 4.54 4.20 - 5.80 Million/uL [facility] Hemoglobin 14.0 13.2 - 17.1 g/dL [facility] Hematocrit 41.5 38.5 - 50.0 % [facility] MCV 91.4 80.0 - 100.0 fL [facility] MCH 30.8 27.0 - 33.0 pg [facility] MCHC 33.7 32.0 - 36.0 g/dL [facility] RDW 12.4 11.0 - 15.0 % [facility] Platelet Count TNP Thousand/u L [facility] Comment: TEST(S) NOT PERFORMED: ?PLATELET COUNT Unable to report due to significant clumping. Platelet estimate appears to be decreased but greater than 30,000/uL. Test Performed at: [facility] [address] [place], [place] ??[phone] PETER HOFFMANN DO,MPH 08/18/2020 8:22 AM SALES ACTIVITY MANAGER 08/18/2020 8:22 AM SALES ACTIVITY MANAGER Ramon Morales MD LAB - HEMATOLOGY ORD ERABLES [facility] [address] [place] [address] * PATHOLOGY TISSUE (04/04/2020 10:08 AM CDT) Only the most recent of3 resultswithin the time period is included. Pathologist [facility] Case Report Surgical Pathology Report ? Case: [id number] ? Authorizing Provider: ??Ramon Morales MD ?Collected: ? 04/04/2020 10:08 AM ? Ordering Location: ? [facility] ?Received: ?04/04/2020 12:17 PM ? Pathologist: ? Gretchen Love MD ? Specimens: ?? A) - Large Intestine, Right/Ascending Colon, Ascending colon polyp ? B) - Rectum, Rectal polyp ? 04/05/2020 6:05 PM [facility] Final Diagnosis Large intestine, ascending colon polyp, biopsy (A): - Benign polypoid mucosa Large intestine, rectal polyp, biopsy (B): - Hyperplastic polyp 04/05/2020 6:05 PM [facility] Microscopic Description and Comment Microscopic examination substantiates the final diagnosis. 04/05/2020 6:05 PM [facility] Clinical History The patient is a 64 year old man who presented for colorectal cancer screening. Operative procedure/findings: Colonoscopy - 2 mm ascending colon polyp, resected and retrieved; 3 mm rectal polyp, resected and retrieved. 04/05/2020 6:05 PM [facility] Gross Description The requisition and specimen(s) are labeled with the patient's name, Robert Harrell. Received in formalin, specimen A , is one pink-neal tissue fragment measuring 0.5 x 0.2 x 0.1 cm. Submitted in toto in cassette A1. Received in formalin, specimen B , is one pink-neal tissue fragment with focal area of hemorrhage measuring 0.3 x 0.2 x 0.1 cm. Submitted in toto in cassette B1. KK 04/05/2020 6:05 PM CDT [facility] Disclaimer The performance characteristics of all immunohistochemical and indirect immunofluorescence stains (if any) cited in this report were determined by the Histopathology Laboratory of [facility]. Some of these tests were developed by our own laboratory and have not been cleared or approved by the US Food and Drug Administration. The FDA does not require this test to go through premarket FDA review. These tests are used for clinical purposes. They should not be regarded as investigational or for research. This laboratory is certified under the Clinical Laboratory Improvement Amendments (CLIA) as qualified to perform high complexity clinical laboratory testing. This case has been personally reviewed and interpreted by the attending (teaching) pathologist. 04/05/2020 6:05 PM CDT [facility] Embedded Images 04/05/2020 6:05 PM CDT [facility] Biopsy, NOS (Large Intestine, Right/Ascending Colon) 04/04/2020 10:08 AM CDT 04/04/2020 12:17 PM CDT Comment:Pre-op diagnosis: Z94.4 S/P liver transplant D89.9 Immunosuppressed status Z12.11 Encounter for screening colonoscopy Biopsy, NOS ENTIRE RECTUM / Unknown 04/04/2020 10:25 AM CDT 04/04/2020 12:17 PM CDT Comment:Pre-op diagnosis: Z94.4 S/P liver transplant D89.9 Immunosuppressed status Z12.11 Encounter for screening colonoscopy Ramon Morales MD LAB - PATHOLOGY/CYTO LOGY ORDERABLES [facility] [address] [phone] * ENDOSCOPY, COLON, SCREENING (04/04/2020 9:37 AM CDT) Report Endoscopy POC Endoscopy Department Report _ Patient Name: Robert Harrell ?Procedure Date: 04/04/2020 9:37 AM ? Date of : 1955 Classification: Outpatient ?Gender: Male Ethnicity: Not or ? Race: White _ Providers: ?Ramon Morales MD, Elda Rashid (Fellow) Referring : ? Ramon Morales MD (Referring MD) Procedure: [...] and ?oxygen saturations were monitored continuously. The ?[id number] was introduced through the anus and ?advanced to the cecum, identified by appendiceal ?orifice and ileocecal valve. The colonoscopy was ?performed without difficulty. The patient tolerated ?the procedure well. The quality of the bowel ?preparation was evaluated using the BBPS (Acton ?Bowel Preparation Scale) with scores of: Right [...] The polyp ? was removed with a BlogGlueo cold forceps. Resection and retrieval were ? [...] Procedure Code(s): ? --- Professional --- ? 91761, Colonoscopy, flexible; with removal of tumor(s), polyp(s), or ? other lesion(s) by snare technique ? 98379, 59, Colonoscopy, flexible; with biopsy, single or multiple Diagnosis Code(s): ?--- Professional --- ?Z12.11, Encounter for screening for malignant ?neoplasm of colon ?K63.5, Polyp of colon ?K62.1, Rectal polyp CPT copyright 2019 [employer]. All rights reserved. The codes documented in this report are preliminary and upon coder operator review may be revised to meet current compliance requirements. _ Ramon Morales MD 04/04/2020 10:34:35 AM This report has been signed electronically. Note Initiated On: 04/04/2020 9:37 AM Number of Addenda: 0 ? [facility] ? [address] at [address] 04/04/2020 9:37 AM CDT Elda Rashid MD GI PROCEDURE ORDERAB LES Performing Organization Address City/[facility]/ZIP Co de Phone Number [facility] * (ABNORMAL) GLUCOSE - POINT OF CARE (04/04/2020 9:07 AM CDT) Only the most recent of2 resultswithin the time period is included. [facility] Glucose WB/POC 139(H) 70 - 115 mg/dL 04/04/2020 12:37 PM CDT [facility] Specimen Type Arterial/C apillary 04/04/2020 12:37 PM CDT [facility] Blood BLOOD SPECIMEN / Unknown 04/04/2020 9:07 AM CDT 04/04/2020 12:37 PM CDT Ramon Morales MD LAB - POINT OF CARE ORDERABLES Performing Organization Address City/[facility]/ZIP Co de Phone Number [facility] [address] [place] [address], [facility] [phone] * (ABNORMAL) HEMOGLOBIN A1C (03/14/2020 8:46 AM CDT) Only the most recent of8 resultswithin the time period is included. [facility] Hemoglobin A1c 6.0(H) <5.7 % of total [...] of diabetes for children. Test Performed at: [facility] [place], [place] ??[phone] PETER HOFFMANN DO,MPH 03/14/2020 8:46 AM CDT 03/14/2020 8:47 AM CDT Ramon Morales MD LAB - CHEMISTRY ORDE LALITA Performing Organization Address [facility] de Phone Number [facility] [address] [place] [address] * (ABNORMAL) PLATELET ESTIMATION (02/16/2019 8:10 AM CDT) [facility] Platelet Estimation DECREASED (A) [facility]DE[facility] Comment: Test Performed at: [facility] [address] [place], [place] ??[phone] PETER HOFFMANN DO,MPH 02/16/2019 8:10 AM CDT 02/16/2019 8:15 AM CDT Ramon Morales MD LAB - HEMATOLOGY ORD ERABLES Performing Organization Address [facility] Co de Phone Number [facility] [address] [place] [address] * ENDOSCOPY, COLON, SCREENING (12/08/2018 8:23 AM CDT) [facility] Report Endoscopy POC Endoscopy Department Report _ Patient Name: Robert Harrell ?Procedure Date: 12/08/2018 8:23 AM ? Date of : 1955 Classification: Inpatient ? Gender: Male _ Providers: ?Ramon Morales MD Referring MD: ? Rod Sanches (Referring MD) Procedure: ?Colonoscopy Indications: ?Screening for colorectal malignant neoplasm Medications: ?Monitored Anesthesia Care Comorbidities ? Status post liver transplant Description of Procedure: Pre-Anesthesia Assessment: ?- Prior [...] obtained. Prior Anticoagulants: The patient has ?taken aspirin, last dose was 1 day prior to ?procedure. ASA Grade Assessment: II - A patient ?with mild systemic disease. After reviewing the ?risks and benefits, the patient was deemed in ?satisfactory condition to undergo the procedure. ?After I obtained informed consent, the scope was ?passed under direct vision. Throughout the ?procedure, the patient's blood pressure, pulse, and ?oxygen saturations were monitored continuously. The ?PCF-[id number] was introduced through the anus and ?advanced to the cecum, identified by appendiceal ?orifice and ileocecal valve. The colonoscopy was ?performed without difficulty. The patient tolerated ?the procedure well. The quality of the bowel ?preparation was fair. The ileocecal valve, ?appendiceal orifice, and rectum were photographed. ? Findings: ? The perianal and digital rectal examinations were normal. ? Extensive amounts of semi-liquid stool was found in the entire colon, ? making visualization difficult. Lavage of the area was performed using a ? large amount of sterile water, resulting in incomplete clearance with ? fair visualization. ? The entire examined colon appeared normal on direct and retroflexion ? views. ? Estimated Blood Loss: ? Estimated blood loss: none. Complications: ?No immediate complications. Impression: ? - Preparation of the colon was fair and thus ?screening colonoscopy was inadequate to clear colon. ?- Stool in the entire examined colon. ?- The entire examined colon is normal on direct and ?retroflexion views. ?- No specimens collected. Recommendation: ? - Patient has a contact number available for ?emergencies. The signs and symptoms of potential ?delayed complications were discussed with the ?patient. Return to normal activities tomorrow. ?Written discharge instructions were provided to the ?patient. ?- Resume previous diet. ?- Continue present medications. ?- Repeat colonoscopy in 1 year because the bowel ?preparation was suboptimal. ?- Return to my office as previously scheduled. ? Attending Participation: ??I personally performed the entire procedure. ? Procedure Code(s): ? --- Professional --- ? G0121, Colorectal cancer screening; colonoscopy on individual not ? meeting criteria for high risk Diagnosis Code(s): ?--- Professional --- ?Z12.11, Encounter for screening for malignant ?neoplasm of colon CPT copyright 2016 [employer]. All rights reserved. The codes documented in this report are preliminary and upon coder operator review may be revised to meet current compliance requirements. _ Ramon Morlaes MD 12/08/2018 9:39:14 AM This report has been signed electronically. Note Initiated On: 12/08/2018 8:23 AM Number of Addenda: 0 ? [facility] ? [address] [place] [address] [facility] 12/08/2018 8:23 AM CDT Ramon Morales MD GI PROCEDURE ORDERAB LES [facility] * PHOSPHORUS BLOOD (11/24/2018 8:24 AM CDT) Only the most recent of66 resultswithin the time period is included. Pathologist [facility] Phosphorus 3.4 2.5 - 4.5 mg/dL [facility] Comment: Test Performed at: [facility] [address] [place] [address] ??[phone] PETER HOFFMANN DO,MPH 11/24/2018 8:24 AM CDT 11/24/2018 8:24 AM CDT Ramon Morales MD LAB - CHEMISTRY ORDE RABLES Performing Organization Address [facility] Co de Phone Number [facility] [address] [place] [address] * SLIDE SCAN HEMATOLOGY (11/10/2018 8:37 AM SALES ACTIVITY MANAGER) Only the most recent of2 resultswithin the time period is included. [facility] CBC Morphology NORMAL [facility] Comment: Ovalocytes 1 + Test Performed at: [facility] [address] ??[phone] PETER HOFFMANN DO,MPH 11/10/2018 8:37 AM SALES ACTIVITY MANAGER 11/10/2018 8:37 AM SALES ACTIVITY MANAGER Ramon Morales MD LAB - HEMATOLOGY ORD ERABLES Performing Organization Address [facility] de Phone Number [facility] [id number] [place] [address] * CYTOMEGALOVIRUS DNA RT PCR QUANT BLOOD (10/13/2018 8:22 AM SALES ACTIVITY MANAGER) Only the most recent of8 resultswithin the time period is included. [facility] Source BLOOD [facility] Cytomegalovirus DNA Quantitative Real Time PCR <200 IU/mL [facility] Cytomegalovirus DNA Quantitative PCR <2.30 Log IU/mL [facility] Comment: REFERENCE RANGE: CMV DNA, QN PCR: <200 IU/mL CMV DNA, QN PCR: <2.30 Log IU/mL This test was developed and its analytical performance characteristics have been determined by [facility]. It has not been cleared or approved by the U.S. Food and Drug Administration. This assay has been validated pursuant to the CLIA regulations and is used for clinical purposes. Test Performed at: [facility] [address] [place] [address] ??[id number] Zoltan DE SOUZA Blood BLOOD SPECIMEN / Unknown 10/13/2018 8:22 AM SALES ACTIVITY MANAGER 10/13/2018 8:24 AM SALES ACTIVITY MANAGER Ramon Morales MD LAB - CHEMISTRY LUIS ENRIQUE CELIS Performing Organization Address [facility] de Phone Number [facility] [address] [place] [address] * ALPHA FETOPROTEIN BLOOD TUMOR (07/07/2018 11:31 AM CDT) Only the most recent of9 resultswithin the time period is included. Pathologist [facility] Alpha-Fetoprotei n Tumor Marker 0.8 <6.1 ng/mL [facility] Comment: This test was performed using the Cuciniale chemiluminescent method. Values obtained from different assay methods cannot be used interchangeably. AFP levels, regardless of value, should not be interpreted as absolute evidence of the presence or absence of disease. Test Performed at: [facility] [place], [place] ??[phone] PETER HOFFMANN DO,MPH 07/07/2018 11:3 1 AM CDT 07/07/2018 11:32 AM CDT Ramon Morales MD LAB - CHEMISTRY LUIS ENRIQUE CELIS Performing Organization Address [facility] de Phone Number [facility] [address] [place] [address] * TSH (04/14/2018 10:26 AM CDT) Only the most recent of2 resultswithin the time period is included. Pathologist [facility] TSH 1.43 0.40 - 4.50 mIU/L [facility] Comment: Test Performed at: [facility] [address] [place] ??[phone] PETER HOFFMANN DO,MPH Blood BLOOD SPECIMEN / Unknown 04/14/2018 10:26 AM CDT 04/14/2018 10:27 AM CDT Sobeida Griffin MACHINING ENGINEER-EMERGENCY MAN LAB - CHEMISTRY O RDERABLES Performing Organization Address City/[facility]/ZIP Co de Phone Number [facility] [id number] [place] [address] * CYTOMEGALOVIRUS DNA RT-PCR QUANT (03/03/2018 10:05 AM CDT) Only the most recent of3 resultswithin the time period is included. Source EDTA WHOLE BLOOD [facility] Cytomegalovirus DNA Quantitative Real Time PCR TNP IU/mL [facility] Comment: TEST(S) NOT PERFORMED: ?CMV DNA, QN REAL TIME PCR ?CMV DNA, QN PCR * Test not performed ?* * Due to a laboratory error, we are * * unable to perform this test. ?* * Please accept our apology to you ??* * and your patient. Sample exceeded * * stability due to incorrect ?* * storage. ?* Test Performed at: [facility] [address] [place] [address] ??[phone] Zoltan DE SOUZA Microbiology BLOOD SPECIMEN / Unknown 03/03/2018 10:05 AM CDT 03/03/2018 10:06 AM CDT Sobeida Griffin MACHINING ENGINEER-EMERGENCY MAN LAB - MICROBIOLOG Y ORDERABLES [facility] [address] [place] [address] * CT ABDOMEN MULTI PHASE W CONT (12/26/2017 9:19 AM CDT) Only the most recent of7 resultswithin the time period is included. Anatomical Region Laterality Modality Computed Tomogra phy 12/26/2017 9:25 AM CDT Impressions 12/26/2017 3:35 PM CDT IMPRESSION: 1. Orthotopic liver transplant. A 7 mm arterially [...] is not excluded. Attention on follow-up recommended. Dictated by Ramon Sandoval MD (radiology therapist). I, Dr. ISRAEL CORTÉS M.D. have personally reviewed and interpreted this examination/study. This report was electronically signed by ISRAEL CORTÉS M.D. ??on 12/26/2017 3:35 PM . 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 TECHNIQUE: CT of the abdomen was performed following the uneventful administration of 150 mL of Isovue-370 intravenous contrast according to a three-phase liver protocol. COMPARISON: Comparison is made with a study from 09/19/2017 FINDINGS: The aorta is atherosclerotic but normal in caliber. There is a small right pleural effusion with associated compressive atelectasis. The left lung base is clear. The heart size is normal without pericardial effusion. The patient is status post orthotopic liver transplant with renal-portal shunting. The transplant liver is normal in surface contour. Ill-defined areas of mild geographic arterial enhancement in the right and left hepatic lobes as well as the caudate lobe without masslike enhancement or washout appearance most likely represents vascular phenomenon. A 1.5 cm focus of enhancement in hepatic segment 8 represents an intrahepatic shunt. A 7 mm observation of enhancement in hepatic segment IVb does not demonstrate washout appearance or delayed capsular enhancement, and is intermediate probability for hepatocellular carcinoma (LR 3, series 6 image 84). The hepatic arterial anatomy is conventional. The portal vein is nondilated. There is dilatation at the renal-portal anastomosis measuring 5.8 cm. The splenic vein is dilated. A small amount of nonocclusive thrombus is seen within the superior mesenteric vein and splenic vein. The portal and main hepatic veins are patent without evidence of thrombi. There is trace ascites in the right paracolic gutter. 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 The spleen is enlarged, measuring 18.5 cm in craniocaudal dimension. The gallbladder surgically absent. The intrahepatic ducts are nondilated. The common bile duct is dilated, likely related to the postcholecystectomy state. The adrenal glands are normal. A 1.5 cm cystic lesion in the uncinate process of the pancreas is unchanged. The pancreas is mildly atrophic but otherwise enhances homogeneously. A few subcentimeter low attenuating lesions in the kidney are too small to characterize but likely represent cysts. There is bilateral renal cortical scarring. Otherwise, the kidneys enhance symmetrically. There is no evidence of renal calculus or hydronephrosis. The distal esophagus and stomach appear normal. The visualized portions of the small bowel and large bowel are normal in caliber without evidence of wall thickening or obstruction. No free intraperitoneal air is seen. No lymphadenopathy is identified. Portacaval lymph nodes measuring up to 9 mm in short axis are noted. Bone windows demonstrate no suspicious lytic or blastic lesions. There are multilevel degenerative changes in the spine. Chronic nonretropulsed compression deformities of L1 and L3, with kyphoplasty cement within the L1 and L3 vertebral bodies and L2-3 intervertebral disc space are unchanged from the prior examination. 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 TECHNIQUE: CT of the abdomen was performed following the uneventful administration of 150 mL of Isovue-370 intravenous contrast according toa three-phase liver protocol. COMPARISON: Comparison is made with a study from 09/19/2017 FINDINGS: The aorta is atherosclerotic but normal in caliber. There is a small right pleural effusion with associated compressive atelectasis. The left lung base is clear. The heart size is normalwithout pericardial effusion. The patient is status post orthotopic liver transplant with renal-portal shunting. The transplant liver is normal in surface contour. Ill-defined areas of mild geographic arterial enhancement in the right and left hepatic lobes as well as the caudate lobe without masslike enhancementor washout appearance most likely represents vascular phenomenon. A 1.5 cm focus of enhancement in hepatic segment 8 represents an intrahepatic shunt. A 7 mm observation of enhancement in hepatic segment IVb does not demonstrate washout appearance or delayed capsular enhancement, and is intermediate probability for hepatocellular carcinoma (LR 3, series 6 image 84). The hepatic arterial anatomy is conventional. The portal vein is nondilated. There is dilatation at the renal-portal anastomosismeasuring 5.8 cm. The splenic vein is dilated. A small amount of nonocclusive thrombus is seen within the superior mesenteric vein and splenic vein.The portal and main hepatic veins are patent without evidence of thrombi. There is trace ascites in the right paracolic gutter. 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 The spleen is enlarged, measuring 18.5 cm in craniocaudal dimension. The gallbladder surgically absent. The intrahepatic ducts arenondilated. The common bile duct is dilated, likely related to thepostcholecystectomy state. The adrenal glands are normal. A 1.5 cm cystic lesion in the uncinate process of the pancreas is unchanged. The pancreas is mildly atrophic but otherwise enhances homogeneously. A few subcentimeter low attenuating lesions in the kidney are too small to characterize butlikely represent cysts. There is bilateral renal cortical scarring. Otherwise, the kidneys enhance symmetrically. There is no evidence of renalcalculus or hydronephrosis. The distal esophagus and stomach appear normal. The visualized portionsof the small bowel and large bowel are normal in caliber without evidenceof wall thickening or obstruction. No free intraperitoneal air is seen. No lymphadenopathy is identified. Portacaval lymph nodes measuring up to 9mm in short axis are noted. Bone windows demonstrate no suspicious lytic or blastic lesions. Thereare multilevel degenerative changes in the spine. Chronic nonretropulsed compression deformities of L1 and L3, with kyphoplasty cement within the L1 and L3 vertebral bodies and L2-3 intervertebral disc space are unchanged from the prior examination. IMPRESSION: 1. Orthotopic liver transplant. A 7 mm arterially enhancing observationin hepatic segment IVb is intermediate probability for hepatocellular carcinoma (LR 3). 2. Renal-portal venous anastomosis with a 5.8 cm and minimal dilatationof the draining varix, unchanged. 3. Small amount of nonocclusive thrombus within the superior mesenteric and splenic veins. 4. Sequela of portal hypertension including splenomegaly and large perisplenic varices. 5. Small cystic lesion in the uncinate process of the pancreas which is largely stable. This could be the sequela of prior pancreatitis, but intraductal papillary neoplasm is not excluded. Attention on follow-up recommended. Dictated by Ramon Sandoval MD (radiology therapist). I, Dr. ISRAEL CORTÉS M.D. have personally reviewed and interpretedthis examination/study. This report was electronically signed by ISRAEL CORTÉS M.D. on 12/26/2017 3:35 PM . Boogie Pearl MD CT ORDERABLES * (ABNORMAL) TACROLIMUS (EXTERNAL RESULT ENTRY) (12/23/2017) Only the most recent of2 resultswithin the time period is included. Tacrolimus Level (EXTERNAL RESULT) 4.7(L) Blood BLOOD SPECIMEN / Unknown 12/23/2017 Historical Provider LAB - CHEMISTRY O RDERABLES * (ABNORMAL) CBC W DIFF (EXTERNAL RESULT ENTRY) (12/12/2017) WBC (EXTERNAL RESULT) 3.2(L) 10^3/ul Hemoglobin (EXTERNAL RESULT) 4.04(L) g/dl Hematocrit (EXTERNAL RESULT) 37.3(L) % Platelets (EXTERNAL RESULT) 52(L) 10^3/ul Neutrophil Absolute (EXTERNAL RESULT) 2,157 10^3/ul Blood BLOOD SPECIMEN / Unknown 12/12/2017 Historical Provider LAB - HEMATOLOGY ORDERABLES * (ABNORMAL) CHEM PROFILE (EXTERNAL RESULT ENTRY) (12/12/2017) Glucose (EXTERNAL RESULT) 198(H) mg/dl BUN (EXTERNAL RESULT) 24 mg/dl Creatinine (EXTERNAL RESULT) 1.55(H) mg/dl Sodium (EXTERNAL RESULT) 138 mmol/L Potassium (EXTERNAL RESULT) 4.0 mmol/L Chloride (EXTERNAL RESULT) 102 mmol/L Carbon Dioxide (EXTERNAL RESULT) 28 mmol/L Calcium (EXTERNAL RESULT) 8.7 mg/dl Phosphorus (EXTERNAL RESULT) 3.4 mg/dl Total Protein (EXTERNAL RESULT) 5.9(L) g/dl Albumin (EXTERNAL RESULT) 3.6 g/dl Alkaline Phosphatase (EXTERNAL RESULT) 61 U/L ALT (EXTERNAL RESULT) 31 units/L AST (EXTERNAL RESULT) 17 units/L Bilirubin Total (EXTERNAL RESULT) 1.0 mg/dl Bilirubin Direct (EXTERNAL RESULT) 0.3(H) mg/dl Bilirubin Indirect (EXTERNAL RESULT) 0.7 mg/dl Magnesium (EXTERNAL RESULT) 1.7 mg/dl Blood BLOOD SPECIMEN / Unknown 12/12/2017 Historical Provider LAB - CHEMISTRY O RDERABLES * (ABNORMAL) GLUCOSE ACCUCHECK (11/14/2017 11:15 AM SALES ACTIVITY MANAGER) Only the most recent of129 resultswithin the time period is included. Glucose, Fingerstick 262(H) 70-115mg/d L mg/dL [facility] (EVIN) Comment:Ice Cream Truck Driver: KALI T ERRY 11/14/2017 11:1 5 AM SALES ACTIVITY MANAGER Janae Diaz MD LAB - CHEMISTRY LUIS ENRIQUE CELIS [facility] BARR) * XR ABDOMEN KUB PORTABLE (11/09/2017 6:39 AM SALES ACTIVITY MANAGER) Only the most recent of5 resultswithin the time period is included. Anatomical Region Laterality Modality Other Impressions 11/09/2017 2:35 PM SALES ACTIVITY MANAGER IMPRESSION: There are multiple mildly dilated small bowel loops measuring up to 4.9 cm in diameter which could represent ileus or obstruction, not significantly changed. The supine radiographs are technically suboptimal for evaluation of pneumoperitoneum. Postsurgical changes of kyphoplasty/vertebroplasty are present inferior lumbar vertebral bodies. Degenerative changes are noted in the spine. Skin staple lines projects over the [id number]. Report dictated by Jenni An MD (radiology therapist). I, Dr. DASHAWN SUE MD have personally reviewed and interpreted this examination/study. This report was electronically signed by DASHAWN SUE MD ??on 11/09/2017 2:35 PM . Narrative 11/09/2017 2:35 PM SALES ACTIVITY MANAGER EXAMINATION: PX ABDOMEN 1 VW HISTORY: Ileus COMPARISON: ??Comparison is made with a study from 11/08/2017. FINDINGS/ Procedure Note Dashawn Sue MD - 12/11/2017 EXAMINATION: PX ABDOMEN 1 VW HISTORY: Ileus COMPARISON: Comparison is made with a study from 11/08/2017. FINDINGS/ IMPRESSION IMPRESSION: There are multiple mildly dilated small bowel loops measuring up to 4.9 cmin diameter which could represent ileus or obstruction, not significantlychanged. The supine radiographs are technically suboptimal for evaluationof pneumoperitoneum. Postsurgical changes of kyphoplasty/vertebroplasty are present inferiorlumbar vertebral bodies. Degenerative changes are noted in the spine. Skinstaple lines projects over the [id number]. Report dictated by Jenni An MD (radiology therapist). I, DrGeronimo SUE MD have personally reviewed and interpreted thisexamination/study. This report was electronically signed by DASHAWN SUE MD on 11/09/20172:35 PM . Janae Diaz MD DIAGNOSTIC IMAGING O RDERABLES * (ABNORMAL) PTT [facility] (11/08/2017 2:22 PM SALES ACTIVITY MANAGER) Only the most recent of14 resultswithin the time period is included. APTT 20.3(L) 23.0 - 38.4 Seconds [facility] Comment:Suggested therapeuti c range for full dose I.V. heparin therapy for venous thromboembolism is 66.0-91.0 seconds. Blood specimen (specimen) BLOOD SPECIMEN / Unknown 11/08/2017 2:22 PM SALES ACTIVITY MANAGER 11/08/2017 2:58 PM SALES ACTIVITY MANAGER Narrative [facility] - 11/08/2017 3:37 PM SALES ACTIVITY MANAGER Please ensure that the aPTT specimen is received in the clinical lab within 1 hour of collection if it is used for therapeutic heparin monitoring. Processing of heparinized specimens older than 1 hour may result in inaccurate test results. Is patient on Heparin, Argatroban or Dabigatran?->N Janae Diaz MD LAB - COAGULATION OR DERABLES Performing Organization Address [facility] Co de Phone Number [address] [phone] * CARDIOLIPIN ANTIBODY IGA (11/08/2017 2:22 PM SALES ACTIVITY MANAGER) Anticardiolipin Antibody IgA <15.0 <15.0 APL [facility] Blood specimen (specimen) BLOOD SPECIMEN / Unknown 11/08/2017 2:22 PM SALES ACTIVITY MANAGER 11/08/2017 2:58 PM SALES ACTIVITY MANAGER Janae Diaz MD LAB - SEROLOGY ORDER MAYRA Performing Organization Address [facility] Co de Phone Number [address] [phone] * CARDIOLIPIN ANTIBODY IGM (11/08/2017 2:22 PM SALES ACTIVITY MANAGER) Anticardiolipin Antibody IgM <15.0 <15.0 MPL [facility] Blood specimen (specimen) BLOOD SPECIMEN / Unknown 11/08/2017 2:22 PM SALES ACTIVITY MANAGER 11/08/2017 2:58 PM SALES ACTIVITY MANAGER Janae Diaz MD LAB - SEROLOGY ORDER MAYRA Performing Organization Address [facility] Co de Phone Number [address] [phone] * CARDIOLIPIN ANTIBODY IGG (11/08/2017 2:22 PM SALES ACTIVITY MANAGER) Anticardiolipin Antibody IgG <15.0 <15.0 GPL [facility] Blood specimen (specimen) BLOOD SPECIMEN / Unknown 11/08/2017 2:22 PM SALES ACTIVITY MANAGER 11/08/2017 2:58 PM SALES ACTIVITY MANAGER Janae Diaz MD LAB - SEROLOGY ORDER MAYRA Performing Organization Address [facility]/ZIP Co de Phone Number [address] [phone] * (ABNORMAL) ANTITHROMBIN III ACTIVITY (11/08/2017 2:22 PM SALES ACTIVITY MANAGER) APTT 20.3(L) 23.0 - 38.4 Seconds [facility] Comment:Suggested therapeuti c range for full dose I.V. heparin therapy for venous thromboembolism is 66.0-91.0 seconds. Antithrombin Activity 88 85 - 130 U/dL [facility] Blood specimen (specimen) BLOOD SPECIMEN / Unknown 11/08/2017 2:22 PM SALES ACTIVITY MANAGER 11/08/2017 2:58 PM SALES ACTIVITY MANAGER Narrative [facility] - 11/12/2017 11:19 AM SALES ACTIVITY MANAGER Is patient on Heparin, Argatroban or Dabigatran?->N Janae Diaz MD LAB - COAGULATION OR DERABLES Performing Organization Address [facility] Co de Phone Number [address] [phone] * (ABNORMAL) PROTEIN C FUNCTIONAL (11/08/2017 2:22 PM SALES ACTIVITY MANAGER) APTT 25.8 23.0 - 38.4 Seconds [facility] PT 13.7 12.1 - 14.8 Seconds [facility] Protein C Activity 57(L) 70 - 130 U/dL [facility] Comment: Protein C may be abnormally low in the acute phase of thrombosis, other acute illnesses, liver disease, nephrotic syndrome, vitamin K deficiency, Warfarin therapy, and estrogen-oral contraceptive use. Adult Normal Reference Range. ??Not applicable to children or adolescents less than age 18 years. ?? INR 1.1 [facility] Blood specimen (specimen) BLOOD SPECIMEN / Unknown 11/08/2017 2:22 PM SALES ACTIVITY MANAGER 11/08/2017 2:58 PM SALES ACTIVITY MANAGER Narrative [facility] - 11/12/2017 10:53 AM SALES ACTIVITY MANAGER Is the patient on Coumadin?->N Janae Diaz MD LAB - CHEMISTRY ORDSherrill CELIS Performing Organization Address City/[facility] Co de Phone Number [address] [phone] * CHRIS VIPER VENOM DILUTE (11/08/2017 2:22 PM SALES ACTIVITY MANAGER) APTT 25.8 23.0 - 38.4 Seconds [facility] PT 13.7 12.1 - 14.8 Seconds [facility] INR 1.1 [facility] LA-DRVVT Screen 0.9 <1.2 [facility] Interpretation Dilute RVV Negative Negative [facility] Blood specimen (specimen) BLOOD SPECIMEN / Unknown 11/08/2017 2:22 PM SALES ACTIVITY MANAGER 11/08/2017 2:58 PM SALES ACTIVITY MANAGER Janae Diaz MD LAB - COAGULATION OR DERABLES Performing Organization Address [facility] de Phone Number [address] [phone] * (ABNORMAL) FACTOR VIII ASSAY (11/08/2017 2:22 PM SALES ACTIVITY MANAGER) Factor VIII Activity 679(H) 45 - 225 U/dL [facility] Comment: Biologic population variability within the Factor VIII Activity reference range is strongly correlated with ABO blood group phenotype. Blood group specific ranges are as follows: ? BLOOD TYPE O: Factor VIII = 45-180 BLOOD TYPE A: Factor VIII = 60-200 BLOOD TYPE B AND AB COMBINED: Factor VIII = 80-225 Increased levels of Factor VIII Activity may be observed in patients with liver disease, inflammatory disease, uremia, vasculitis and generalized, advanced atherosclerosis. ? Blood specimen (specimen) BLOOD SPECIMEN / Unknown 11/08/2017 2:22 PM SALES ACTIVITY MANAGER 11/08/2017 2:58 PM SALES ACTIVITY MANAGER Narrative [facility] - 11/11/2017 10:23 AM SALES ACTIVITY MANAGER Is this a pre or post-infusion?->NA Janae Diaz MD LAB - COAGULATION OR DERABLES Performing Organization Address [facility] Co de Phone Number [address] [phone] * (ABNORMAL) PROTEIN S ACTIVITY (11/08/2017 2:22 PM SALES ACTIVITY MANAGER) APTT 25.8 23.0 - 38.4 Seconds [facility] PT 13.7 12.1 - 14.8 Seconds [facility] Protein S Functional 65(L) 70 - 130 U/dL [facility] Comment: Functional Protein S assay is a simple and inexpensive, highly sensitive but only moderately specific screening test for protein S deficiency. ??Abnormally low results should be confirmed by ordering immunoassays for Total and Free Protein S. ??Protein S may be abnormally low in the acute phase of thrombosis, other acute illnesses, liver disease, nephrotic syndrome, Vitamin K deficiency, Warfarin therapy, and Estrogen-oral contraceptive use. Adult Normal Reference Range. ??Generally applicable to children age 1 year and older. INR 1.1 See Comment [facility] Blood specimen (specimen) BLOOD SPECIMEN / Unknown 11/08/2017 2:22 PM SALES ACTIVITY MANAGER 11/08/2017 2:58 PM SALES ACTIVITY MANAGER Narrative [facility] - 11/12/2017 10:53 AM SALES ACTIVITY MANAGER Is the patient on Coumadin?->N Janae Diaz MD LAB - COAGULATION OR DERABLES Performing Organization Address [facility]/ZIP Co de Phone Number [address] [phone] * HOMOCYSTEINE BLOOD QUANTITATIVE (11/08/2017 2:22 PM SALES ACTIVITY MANAGER) Homocysteine 8.0 4.4 - 16.2 umol/L [facility] Blood specimen (specimen) BLOOD SPECIMEN / Unknown 11/08/2017 2:22 PM SALES ACTIVITY MANAGER 11/08/2017 2:58 PM SALES ACTIVITY MANAGER Janae Diaz MD LAB - CHEMISTRY LUIS ENRIQUE Rubio Organization Address City/State/ZIP Co de Phone Number [facility] [address] [phone] * (ABNORMAL) TEG CITRATED KAOLIN (CK) (11/08/2017 2:22 PM SALES ACTIVITY MANAGER) Only the most recent of2 resultswithin the time period is included. G-Clot Strength 4.1(L) 4.5 - 11.0 d/sc [facility] Interpretation TEG See Comment [facility] React-Time 2.3(L) 5.0 - 10.0 MIN [facility] K-Time 3.5(H) 1.0 - 3.0 MIN [facility] Angle A-BB 55.4 53.0 - 72.0 Degrees [facility] MA (CK) BB 45.3(L) 50.0 - 70.0 mm [facility] LY30 8.6(H) 0.0 - 8.0 % [facility] CI-Coagulation Index -0.9 -3.0 - 3.0 [facility] Blood specimen (specimen) 11/08/2017 2:22 PM SALES ACTIVITY MANAGER 11/08/2017 2:30 PM SALES ACTIVITY MANAGER Narrative [facility] - 11/08/2017 4:28 PM SALES ACTIVITY MANAGER SEE BELOW ?TEG [place] Sample Type Interpretation TEG Value ?Hemostasis State R < than 4 min: ?Enzymatic Hypercoagulability R 11-14 min: ? Low Clotting Factors R > than 14 min: ?? Very low clotting factors MA 46-54 mm: ? Low Platelet function MA 41-45 mm: ? Very low platelet function MA 40 mm or less: ??Extremely low platelet function MA > 73 mm: ?Platelet hypercoagulability R < 4 min and ?Enzymatic and platelet hypercoagulability MA > 73 mm: Angle < 45 deg: ?Low fibrinogen level LY30 at 7.5% or >, Primary Fibrinolysis CI < than 1.0: ?? LY30 at 7.5% or >, Secondary fibrinolysis CI > than 3.0: LY30 < 7.5%, ? Prothrombotic state CI > 3.0: Janae Diaz MD LAB - BLOOD BANK ORD ERABLES [facility] [address] [place] [address], [facility] * LAB MISCELLANEOUS TEST 2 (11/08/2017 2:22 PM SALES ACTIVITY MANAGER) Reference Lab Results SEE SCANNED REPORT [facility] REF LAB NON INTERF Other (qualifier value) 11/08/2017 2:22 PM SALES ACTIVITY MANAGER 11/08/2017 3:27 PM SALES ACTIVITY MANAGER Narrative [facility] REF [facility] NON INTERF - 11/13/2017 11:19 AM SALES ACTIVITY MANAGER Test Name:->Protrombin Gene Mutation Reference Lab Info:->SLU DNA Lab Janae Diaz MD LAB - CHEMISTRY LUIS ENRIQUE CELIS Performing Organization Address [facility] de Phone Number [facility] REF [facility] NON INTERF [address] [place] [address] * LAB MISC TEST (11/08/2017 2:22 PM SALES ACTIVITY MANAGER) Reference Lab Results SEE SCANNED REPORT [facility] REF [facility] NON INTERF Other (qualifier value) 11/08/2017 2:22 PM SALES ACTIVITY MANAGER 11/08/2017 3:27 PM SALES ACTIVITY MANAGER Narrative [facility] REF [facility] NON INTERF - 11/13/2017 11:18 AM SALES ACTIVITY MANAGER Test Name:->Factor V Leiden Reference Lab Info:->SLU DNA ??LAB Janae Diaz MD LAB SEND OUT Performing Organization Address [facility] de Phone Number [facility] REF [facility] NON INTERF [address] [place] [address] * PATHOLOGY/GENETICS HISTORICAL-ONBASE (11/08/2017) 11/08/2017 Historical Provider LAB - CHEMISTRY O RDERABLES Performing Organization Address [facility] de Phone Number [place] [id number] [address] * US LIVER TRANSPLANT (11/07/2017 5:34 PM SALES ACTIVITY MANAGER) Only the most recent of2 resultswithin the time period is included. Anatomical Region Laterality Modality Other Impressions 11/08/2017 4:46 PM SALES ACTIVITY MANAGER IMPRESSION: 1. Normal sonographic appearance of the transplant liver. 2. Patent hepatic vasculature. Dictated by Royce Carter MD (radiology therapist). This report was approved ??by Royce Carter ?? on 11/08/2017 9:47 AM . I, Dr. LESLY FERMIN M.D. have personally reviewed and interpreted this examination/study. This report was electronically signed by LESLY FREMIN M.D. ??on 11/08/2017 4:46 PM . Narrative 11/08/2017 4:46 PM SALES ACTIVITY MANAGER EXAMINATION: 1. Limited right upper quadrant abdominal sonogram for liver transplant 2. Color and spectral Doppler evaluation of the hepatic vasculature HISTORY: Elevated bilirubin. Status post liver transplant on 11/03/2017 with alternative anatomy, specifically renal-portal anastomosis. FINDINGS: Comparison is made with ultrasound of liver from 11/03/2017 Abdomen: The patient is status post liver transplant. The orthotopic liver is normal in echotexture and echogenicity with smooth surface contour. No discrete hepatic mass or intrahepatic biliary dilatation is seen. The gallbladder is absent. The common bile duct is nondilated, measuring 7 mm. The right kidney measures 10.5 cm in length. Limited views of the right kidney reveal no evidence of nephrolithiasis or hydronephrosis. The spleen measures 21.5 cm in length. The pancreas is obscured by overlying bowel gas. Small volume perihepatic fluid is present. Liver Doppler: Color and spectral Doppler evaluation demonstrates patency of the hepatic veins with appropriate flow direction and multiphasic waveforms. The portal veins appear patent with normal hepatopetal flow and phasic waveforms. The proper, left, and right hepatic arteries are patent and have normal arterial waveforms with brisk systolic upstroke and antegrade flow. Main portal vein velocity: 56 cm/s, previously 53 cm/s Right portal vein velocity: 37 cm/s, previously 32 cm/s cm/s Left portal vein velocity: 35 cm/s, previously 38 cm/s cm/s Proper hepatic artery resistive index: 0.74, previously 0.75 Right hepatic artery resistive index: 0.66, previously 0.64-0.74 Left hepatic artery resistive index: 0.72, previously 0.74 Procedure Note Lesly Fermin MD - 12/11/2017 EXAMINATION: 1. Limited right upper quadrant abdominal sonogram for liver transplant 2. Color and spectral Doppler evaluation of the hepatic vasculature HISTORY: Elevated bilirubin. Status post liver transplant on 11/03/2017with alternative anatomy, specifically renal-portal anastomosis. FINDINGS: Comparison is made with ultrasound of liver from 11/03/2017 Abdomen: The patient is status post liver transplant. The orthotopic liver isnormal in echotexture and echogenicity with smooth surface contour. Nodiscrete hepatic mass or intrahepatic biliary dilatation is seen. Thegallbladder is absent. The common bile duct is nondilated, measuring 7 mm. The right kidney measures 10.5 cm inlength. Limited views of the right kidney reveal no evidence ofnephrolithiasis or hydronephrosis. The spleen measures 21.5 cm in length.The pancreas is obscured by overlying bowel gas. Small volume perihepatic fluid is present. Liver Doppler: Color and spectral Doppler evaluation demonstrates patency of the hepaticveins with appropriate flow direction and multiphasic waveforms. Theportal veins appear patent with normal hepatopetal flow and phasicwaveforms. The proper, left, and right hepatic arteries are patent and have normal arterial waveforms with brisksystolic upstroke and antegrade flow. Main portal vein velocity: 56 cm/s, previously 53 cm/s Right portal vein velocity: 37 cm/s, previously 32 cm/s cm/s Left portal vein velocity: 35 cm/s, previously 38 cm/s cm/s Proper hepatic artery resistive index: 0.74, previously 0.75 Right hepatic artery resistive index: 0.66, previously 0.64-0.74 Left hepatic artery resistive index: 0.72, previously 0.74 IMPRESSION IMPRESSION: 1. Normal sonographic appearance of the transplant liver. 2. Patent hepatic vasculature. Dictated by Royce Carter MD (radiology therapist). This report was approved by Royce Carter on 11/08/2017 9:47 AM . I, Dr. LESLY FERMIN M.D. have personally reviewed and interpreted thisexamination/study. This report was electronically signed by LESLY FERMIN M.D. on 11/08/20174:46 PM . Janae Diaz MD US ORDERABLES * NM HEPATOBILIARY WO CCK EF (11/07/2017 1:35 PM SALES ACTIVITY MANAGER) Anatomical Region Laterality Modality Abdomen Other Impressions 11/07/2017 3:02 PM SALES ACTIVITY MANAGER Procedure: Hepatobiliary scan. History: 62-year-old male with elevated bilirubin status post liver transplantation. Technique: 10.23 mCi of [id number] injected IV; dynamic images of the abdomen were obtained for 60 minutes. Patient was ingested 8 oz of insure, with additional 60 minutes of dynamic imaging. Patient's weight 263 pounds, height is 185 cm. Findings: Radiotracer uptake by the normal sized liver is homogeneous. Hepatocellular function is normal. Tracer clearance from the liver parenchyma into the biliary tree and small bowel is prompt. The gallbladder is surgically absent. Impression: Normal hepatocellular function and size. No evidence of biliary leak. This report was approved ??by Elda Lazo ?? on 11/07/2017 2:[address] JJ Reyes D.O. have personally reviewed and interpreted this examination/study. This report was electronically signed by JJ MANCILLA D.O. ??on 11/07/2017 3:02 PM . Narrative Procedure Note Jj Mancilla, DO - 12/11/2017 IMPRESSION Procedure: Hepatobiliary scan. History: 62-year-old male with elevated bilirubin status post livertransplantation. Technique: 10.23 mCi of Tr67m-Fpluhimi injected IV; dynamic images of theabdomen were obtained for 60 minutes. Patient was ingested 8 oz of insure,with additional 60 minutes of dynamic imaging. Patient's weight 263 pounds, height is 185 cm. Findings: Radiotracer uptake by the normal sized liver is homogeneous.Hepatocellular function is normal. Tracer clearance from the liverparenchyma into the biliary tree and small bowel is prompt. Thegallbladder is surgically absent. Impression: Normal hepatocellular function and size. No evidence of biliary leak. This report was approved by Elda Lazo on 11/07/2017 2:[address] JJ Reyes D.O. have personally reviewed and interpreted thisexamination/study. This report was electronically signed by JJ MANCILLA D.O. on 11/07/20173:02 PM . Janae Diaz MD NM ORDERABLES * PT-INR [facility] (11/07/2017 5:19 AM SALES ACTIVITY MANAGER) Only the most recent of49 resultswithin the time period is included. PT 13.9 12.1 - 14.8 Seconds [facility] INR 1.1 See Comment [facility] Comment: Suggested therapeutic range for low-intensity coumadin therapy for venous thromboembolism prophylaxis is an INR of 2.0-3.0. ??For high risk patients (Mitral Valve Prosthesis, Atrial Fibrillation, history of TIA/stroke), suggested prophylactic therapeutic range is an INR of 2.5-3.5. Blood specimen (specimen) BLOOD SPECIMEN / Unknown 11/07/2017 5:19 AM SALES ACTIVITY MANAGER 11/07/2017 5:24 AM SALES ACTIVITY MANAGER Narrative [facility] - 11/07/2017 5:50 AM SALES ACTIVITY MANAGER Is patient on Heparin, Argatroban or Dabigatran?->N Janae Diaz MD LAB - COAGULATION OR DERABLES [address] [phone] * LACTIC ACID BLOOD (11/04/2017 11:38 AM SALES ACTIVITY MANAGER) Only the most recent of5 resultswithin the time period is included. Lactic Acid-Stat 0.6 0.5 - 2.2 mmol/L [facility] Blood specimen (specimen) BLOOD SPECIMEN / Unknown 11/04/2017 11:38 AM SALES ACTIVITY MANAGER 11/04/2017 11:43 AM SALES ACTIVITY MANAGER Janae Diaz MD LAB - CHEMISTRY ORDE RABLES Performing Organization Address City/[facility]/[place] [address], [facility] [phone] * (ABNORMAL) BLOOD GASES ART (11/04/2017 11:38 AM SALES ACTIVITY MANAGER) Only the most recent of10 resultswithin the time period is included. pH Arterial 7.40 7.35 - 7.45 [facility] pCO2 Arterial 34(L) 35 - 45 mmHg [facility] pO2 Arterial 75 71 - 95 mmHg [facility] HCO3 Arterial 20.3(L) 22.0 - 26.0 mmol/L [facility] TCO2 Arterial 21.3(L) 25.0 - 29.0 mmol/L [facility] Base Excess Arterial -3.9(L) -2.0 - 2.0 mmol/L [facility] Hemoglobin Arterial 10.7(L) 13.5 - 17.5 g/dL [facility] Oxyhemoglobin Arterial 92.6(L) 95.0 - 100.0 % [facility] Carboxyhemoglobin 0.6 0.0 - 3.0 % [facility] Methemoglobin 0.5 0.0 - 2.0 % [facility] FI O2 Arterial 40.0 % [facility] Blood specimen (specimen) BLOOD SPECIMEN / Unknown 11/04/2017 11:38 AM SALES ACTIVITY MANAGER 11/04/2017 11:43 AM SALES ACTIVITY MANAGER Janae Diaz MD LAB - BLOOD GASES OR DERABLES [address] [phone] * (ABNORMAL) SVO2 FOR RECALIBRATION (11/04/2017 5:25 AM SALES ACTIVITY MANAGER) SVO2 for Recalibration 84.2(H) 66.0 - 77.0 % [facility] Blood specimen (specimen) BLOOD SPECIMEN / Unknown 11/04/2017 5:25 AM SALES ACTIVITY MANAGER 11/04/2017 5:31 AM SALES ACTIVITY MANAGER Janae Diaz MD LAB - CHEMISTRY ORDE RABLES Performing Organization Address City/[facility]/ZIP Co de Phone Number [address] [phone] * (ABNORMAL) FIBRINOGEN ACTIVITY (11/03/2017 9:31 PM SALES ACTIVITY MANAGER) Only the most recent of5 resultswithin the time period is included. Fibrinogen Clauss 127(L) 200 - 400 mg/dL [facility] Blood specimen (specimen) BLOOD SPECIMEN / Unknown 11/03/2017 9:31 PM SALES ACTIVITY MANAGER 11/03/2017 9:36 PM SALES ACTIVITY MANAGER Janae Diaz MD LAB - COAGULATION OR DERABLES [place] [id number] [address] [phone] * XR CHEST 1VW PORTABLE (11/03/2017 9:23 PM SALES ACTIVITY MANAGER) Only the most recent of7 resultswithin the time period is included. Anatomical Region Laterality Modality Chest Other Impressions 11/04/2017 1:59 PM SALES ACTIVITY MANAGER IMPRESSION: The endotracheal tube tip superimposes midthoracic trachea. The gastric tube terminates in gastric body. A left internal jugular approach [place]-Akiko catheter terminates in main pulmonary artery. A drain/catheter traverses the upper abdomen. Lung volumes are small. Mild bibasilar atelectasis are again noted. Left lower lobe opacification may represents pleural effusion with underlying atelectasis/airspace disease. No pneumothorax is identified. The cardiomediastinal silhouette is unchanged. Dictated by Kristyn Calzada MD (radiology therapist). IDr. WALTER M.D. have personally reviewed and interpreted this examination/study. This report was electronically signed by WALTER BACA M.D. ??on 11/04/2017 1:59 PM . Narrative 11/04/2017 1:59 PM SALES ACTIVITY MANAGER EXAMINATION: PX CHEST 1 VW HISTORY: cvc placement COMPARISON: Comparison is made with a study from 11/02/2017. FINDINGS/ Procedure Note Walter Baca MD - 12/11/2017 EXAMINATION: PX CHEST 1 VW HISTORY: cvc placement COMPARISON: Comparison is made with a study from 11/02/2017. FINDINGS/ IMPRESSION IMPRESSION: The endotracheal tube tip superimposes midthoracic trachea. The gastrictube terminates in gastric body. A left internal jugular approachSwan-Akiko catheter terminates in main pulmonary artery. A drain/cathetertraverses the upper abdomen. Lung volumes are small. Mild bibasilar atelectasis are again noted. Leftlower lobe opacification may represents pleural effusion with underlyingatelectasis/airspace disease. No pneumothorax is identified. Thecardiomediastinal silhouette is unchanged. Dictated by Kristyn Calzada MD (radiology therapist). I, Dr. WALTER BACA M.D. have personally reviewed and interpreted thisexamination/study. This report was electronically signed by WALTER BACA M.D. on 11/04/20171:59 PM . Janae Diaz MD DIAGNOSTIC IMAGING O RDERABLES * LACTIC ACID WHOLE BLOOD (11/03/2017 7:17 PM SALES ACTIVITY MANAGER) Only the most recent of5 resultswithin the time period is included. Lactic Acid Whole Blood 1.1 0.5 - 3.4 mmol/L [facility] Blood specimen (specimen) BLOOD SPECIMEN / Unknown 11/03/2017 7:17 PM SALES ACTIVITY MANAGER 11/03/2017 7:22 PM SALES ACTIVITY MANAGER Jay Jay Heredia MD LAB - CHEMISTRY LUIS ENRIQUE CELIS Performing Organization Address City/[facility]/ZIP Co de Phone Number [address] [phone] * CHLORIDE WHOLE BLOOD (11/03/2017 7:17 PM SALES ACTIVITY MANAGER) Only the most recent of5 resultswithin the time period is included. Chloride Whole Blood 105 101 - 111 mmol/L [facility] Blood specimen (specimen) BLOOD SPECIMEN / Unknown 11/03/2017 7:17 PM SALES ACTIVITY MANAGER 11/03/2017 7:22 PM SALES ACTIVITY MANAGER Jay Jay Heredia MD LAB - CHEMISTRY LUIS ENRIQUE CELIS [address] [phone] * (ABNORMAL) CALCIUM IONIZED WHOLE BLOOD (11/03/2017 7:17 PM SALES ACTIVITY MANAGER) Only the most recent of5 resultswithin the time period is included. Ionized Calcium Whole Blood 1.05 mmol/L [facility] Adjusted Ionized Calcium 1.07(L) 1.19 - 1.34 mmol/L [facility] pH Whole Blood 7.43 7.35 - 7.45 [facility] Blood specimen (specimen) BLOOD SPECIMEN / Unknown 11/03/2017 7:17 PM SALES ACTIVITY MANAGER 11/03/2017 7:22 PM SALES ACTIVITY MANAGER Jay Jay Heredia MD LAB - CHEMISTRY LUIS ENRIQUE CELIS [address] [phone] * POTASSIUM WHOLE BLD (11/03/2017 7:17 PM SALES ACTIVITY MANAGER) Only the most recent of5 resultswithin the time period is included. Potassium Whole Blood 4.9 3.5 - 5.5 mmol/L [facility] Blood specimen (specimen) BLOOD SPECIMEN / Unknown 11/03/2017 7:17 PM SALES ACTIVITY MANAGER 11/03/2017 7:22 PM SALES ACTIVITY MANAGER Jay Jay Heredia MD LAB - CHEMISTRY LUIS ENRIQUE CELIS Performing Organization Address [facility] Co de Phone Number [address] [phone] * (ABNORMAL) SODIUM WHOLE BLOOD (11/03/2017 7:17 PM SALES ACTIVITY MANAGER) Only the most recent of5 resultswithin the time period is included. Sodium Whole Blood 132(L) 135 - 145 mmol/L [facility] Blood specimen (specimen) BLOOD SPECIMEN / Unknown 11/03/2017 7:17 PM SALES ACTIVITY MANAGER 11/03/2017 7:22 PM SALES ACTIVITY MANAGER Jay Jay Heredia MD LAB - CHEMISTRY LUIS ENRIQUE CELIS Performing Organization Address [facility]/[place] [address], [facility] [phone] * (ABNORMAL) GLUCOSE WHOLE BLOOD (11/03/2017 7:17 PM SALES ACTIVITY MANAGER) Only the most recent of5 resultswithin the time period is included. Glucose Whole Blood 250(H) 70 - 110 mg/dL [facility] Blood specimen (specimen) BLOOD SPECIMEN / Unknown 11/03/2017 7:17 PM SALES ACTIVITY MANAGER 11/03/2017 7:22 PM SALES ACTIVITY MANAGER Jay Jay Heredia MD LAB - CHEMISTRY LUIS ENRIQUE CELIS [facility] Organization Address City/State/ZIP Co de Phone Number [facility] [address] [place] [address], [facility] [phone] * (ABNORMAL) BLOOD GASES ART COMPLETE [facility] OR (11/03/2017 6:20 PM SALES ACTIVITY MANAGER) Only the most recent of3 resultswithin the time period is included. pH Arterial 7.41 7.35 - 7.45 [facility] pCO2 Arterial 40 35 - 45 mmHg [facility] pO2 Arterial 190(H) 71 - 95 mmHg [facility] HCO3 Arterial 24.5 22.0 - 26.0 mmol/L [facility] TCO2 Arterial 25.7 25.0 - 29.0 mmol/L [facility] Base Excess Arterial -0.1 -2.0 - 2.0 mmol/L [facility] Hemoglobin Arterial 11.2(L) 13.5 - 17.5 g/dL [facility] Oxyhemoglobin Arterial 97.5 95.0 - 100.0 % [facility] Carboxyhemoglobin 0.3 0.0 - 3.0 % [facility] Methemoglobin 0.3 0.0 - 2.0 % [facility] FI O2 Arterial 60.0 % [facility] Ionized Calcium Whole Blood 1.10 mmol/L [facility] Adjusted Ionized Calcium 1.11(L) 1.19 - 1.34 mmol/L [facility] Sodium Whole Blood 133(L) 135 - 145 mmol/L [facility] Potassium Whole Blood 5.5 3.5 - 5.5 mmol/L [facility] Chloride Whole Blood 106 101 - 111 mmol/L [facility] Glucose Whole Blood 230(H) 70 - 110 mg/dL [facility] Lactic Acid Whole Blood 1.3 0.5 - 3.4 mmol/L [facility] Blood specimen (specimen) 11/03/2017 6:20 PM SALES ACTIVITY MANAGER 11/03/2017 6:20 PM SALES ACTIVITY MANAGER Janae Diaz MD LAB - BLOOD GASES OR DERABLES Performing Organization Address [facility] Co de Phone Number [address] [phone] * (ABNORMAL) URINALYSIS W/MICROSCOPIC NO CULTURE (11/03/2017 3:30 AM SALES ACTIVITY MANAGER) Only the most recent of2 resultswithin the time period is included. Color UA Lala(A) Straw, Yellow, Colorless, Light Yellow [facility] Clarity UA Clear Clear [facility] Specific [place] UA 1.023 1.001 - 1.030 [facility] pH UA 6.5 5.0 - 8.0 [facility] Protein UA Trace(A) <=20 mg/dL [facility] Glucose UA >1000(A) Negative mg/dL [facility] Ketone UA Negative Negative mg/dL [facility] Bilirubin UA Negative Negative mg/dL [facility] Blood UA Negative Negative [facility] Nitrite UA Negative Negative [facility] Leukocyte Esterase Negative Negative [facility] Urobilinogen UA >12.0(H) <2.0 mg/dL [facility] RBC UA 3 0 - 8 /HPF [facility] WBC UA <1 0 - 2 /HPF [facility] Mucus UA Rare(A) None /LPF [facility] Hyaline Casts UA 1 0 - 2 /LPF [facility] Urine specimen (specimen) 11/03/2017 3:30 AM SALES ACTIVITY MANAGER 11/03/2017 3:30 AM SALES ACTIVITY MANAGER Janae Diaz MD LAB - URINALYSIS ORD ERABLES Performing Organization Address [facility]/State/ZIP Co de Phone Number [address] [phone] * DRUG ABUSE PANEL 10-20+ETHANOL URINE NO CONFIRM (11/03/2017 3:30 AM SALES ACTIVITY MANAGER) Only the most recent of3 resultswithin the time period is included. Amphetamines Screen Urine Negative Negative: < 1000 ng/mL [facility] Barbiturates Screen Urine Negative Negative: < 200 ng/mL [facility] Benzodiazepine Screen Urine Negative Negative: < 200 ng/mL [facility] Opiates Urine Negative Negative: < 300 ng/mL [facility] Cocaine Metabolites Urine Negative Negative: < 300 ng/mL [facility] Phencyclidine Screen Urine Negative Negative: < 25 ng/ml [facility] Cannabinoids Screen Urine Negative Negative: <50 ng/mL [facility] Methadone Screen Urine Negative Negative: < 300 ng/mL [facility] Urine specimen (specimen) URINE / Unknown 11/03/2017 3:30 AM SALES ACTIVITY MANAGER 11/03/2017 3:30 AM SALES ACTIVITY MANAGER Narrative [facility] - 11/03/2017 3:52 AM SALES ACTIVITY MANAGER The Urine Toxicology Screening Panel does not screen for Propoxyphene, Meprobamate, Carisoprodol, Trazodone, ulue-eox-yjjxwsa medications and/or volatiles (Acetone, Isopropanol, Methanol or Ethylene Glycol). Ethanol, Salicylate, Acetaminophen, Tricyclic Antidepressants and several therapeutic drugs may be individually assayed in serum or plasma specimen. Toxicology testing by the [facility] is an aid to medical diagnosis and treatment of patients. No documented chain of custody was maintained. Results are intended to be used for clinical purposes only. ? Janae Diaz MD LAB - URINE CHEMISTR Y ORDERABLES [facility] [address] [place] [address], [facility] [phone] * TYPE + SCREEN PANEL (11/02/2017 9:16 PM SALES ACTIVITY MANAGER) Only the most recent of5 resultswithin the time period is included. Typem A POS [facility] Antibody Screen NEG [facility] Blood specimen (specimen) 11/02/2017 9:16 PM SALES ACTIVITY MANAGER 11/02/2017 9:32 PM SALES ACTIVITY MANAGER Janae Diaz MD LAB - BLOOD BANK ORD ERABLES [facility] [address] * CROSSMATCH RBC LEUKOREDUCED (11/02/2017 9:16 PM SALES ACTIVITY MANAGER) Only the most recent of3 resultswithin the time period is included. Unit RBC-[facility] [id number] 3 returned [facility] PRODUCTS (BEAKER) Unit RBC-[facility] [id number] 0 returned [facility] PRODU[facility] (BEAKER) 11/02/2017 9:16 PM SALES ACTIVITY MANAGER 11/02/2017 9:33 PM SALES ACTIVITY MANAGER Narrative [facility] (BEAKER) - 11/02/2017 9:16 PM SALES ACTIVITY MANAGER # of Units->2 Janae Diaz MD LAB - BLOOD BANK ORD ERABLES [facility]ODU[facility] (BEAKER) * PREPARE FFP UNIT(S) (11/02/2017 9:16 PM SALES ACTIVITY MANAGER) Unit FFP [id number] transfused [facility] PRODU[facility] (BEAKER) Unit ABO AB [facility] BLOOD BANK PRODUCTS (BEAKER) Unit Rh POS [facility] BLOOD BANK PRODUCTS (BEAKER) Unit Number [id number] H BLOOD BANK PRODUCTS (BEAKER) Unit Status Transfused [facility] BLO OD BANK PRODUCTS (BEAKER) Unit FFP [id number] transfused H BLOOD BANK PRODUCTS (BEAKER) Unit ABO AB [facility] BLOOD BANK PRODUCTS (BEAKER) Unit Rh POS H BLOOD BANK PRODUCTS (BEAKER) Unit Number [id number] [facility] (BEAKER) Unit Status Transfused [facility] BLO OD BANK PRODUCTS (BEAKER) Unit FFP [id number] returned [facility] Unit FFP [id number] returned [facility] ([facility] Unit FFP [id number] returned [facility] BLOOD [facility]ODUCTS ([place]) Unit FFP [id number] returned [facility] BLOOD B[facility] PRODUCTS ([facility]) 11/02/2017 9:16 PM SALES ACTIVITY MANAGER 11/02/2017 9:33 PM SALES ACTIVITY MANAGER Narrative [facility] ([facility]) - 11/02/2017 9:16 PM SALES ACTIVITY MANAGER # of Units->6 Janae Diza MD LAB - BLOOD BANK ORD ERABLES [facility] ([facility]) * HLA XM SEROLOGIC DONOR (11/02/2017 3:17 PM SALES ACTIVITY MANAGER) XM B Donor ID [id number] [facility] ([facility]) XM B Relation Donor [facility] ([facility]) XM Test Date 11/04/2017 [facility] ([facility]) XM T Tyson Neg S [facility] ([facility]) XM B Serum Date 11/02/2017 [facility] ([facility]) Comment: This test was developed and its performance characteristics determined bythe [facility]. ??It has not been cleared or approved by theU.S. Food and Drug Administration. ??The FDA has determined that suchclearance or approval is not necessary. ?? This test is used for clinicalpurposes. ??It should not be regarded as investigational or for research.This laboratory is certified under the Clinical Laboratory ImprovementAmendments of 1988 (CLIA-88) as qualified to perform high complexityclinical laboratory testing. ??CLIA ID# [id number] at: ??[facility], [address] @ [facility], [place] ??[id number] Director: Andrew Jones MD, XM B Tyson Neg [facility] [place] [facility] ([facility]) XM T [facility]HG Neg [facility] ([facility]) XM B AHG Neg [facility] ([facility]) Blood specimen (specimen) BLOOD SPECIMEN / Unknown 11/02/2017 3:17 PM SALES ACTIVITY MANAGER 11/04/2017 3:17 PM SALES ACTIVITY MANAGER Janae Diaz MD LAB - BLOOD BANK ORD ERABLES [facility] ([place]) [address] [address] * EKG 12-LEAD (11/02/2017 12:00 AM SALES ACTIVITY MANAGER) Only the most recent of3 resultswithin the time period is included. [facility] Comment: Exam Date/Time: ?? Nov 02 2017 20:41:57 Test Reason : Blood Pressure : / mmHG Vent. Rate : 065 BPM ? Atrial Rate : 065 BPM ?? P-R Int : 194 ms ?QRS Dur : 098 ms ?QT Int : 452 ms ? P-R-T Axes : 038 -06 042 degrees ?? QTc Int : 470 ms Normal sinus rhythm Normal ECG When compared with ECG of 02-AUG-2016 10:19, Non-specific change in ST segment in Inferior leads Confirmed by Cristhian Chavira, L. ([id number]), video tape editor PATRICIA STERLING ([id number]) on 11/06/2017 12:15:11 PM Referred By: REFERRING NO ? Confirmed By:Aniya Chavira M.D. 11/02/2017 Janae Diaz MD ECG ORDERABLES [facility] * BLOOD TYPE ABO+ RH PANEL (08/06/2017 12:00 PM SALES ACTIVITY MANAGER) Only the most recent of2 resultswithin the time period is included. Typem A POS [facility] Blood specimen (specimen) BLOOD SPECIMEN / Unknown 08/06/2017 12:00 PM SALES ACTIVITY MANAGER 08/06/2017 12:30 PM SALES ACTIVITY MANAGER Tino Santiago MD LAB - BLOOD BANK ORD ERABLES Performing Organization Address [facility] Co de Phone Number [facility] [address] [place] [address] * (ABNORMAL) URINALYSIS REFLEX TO MICROSCOPIC NO CULTURE (08/06/2017 11:43 AM SALES ACTIVITY MANAGER) Only the most recent of2 resultswithin the time period is included. Color UA Lala(A) Straw, Yellow, Colorless, Light Yellow [facility] Clarity UA Clear Clear [facility] Specific [place] UA 1.023 1.001 - 1.030 [facility] pH UA 5.5 5.0 - 8.0 [facility] Protein UA Trace(A) <=20 mg/dL [facility] Glucose UA 300(A) Negative mg/dL [facility] Ketone UA Negative Negative mg/dL [facility] Bilirubin UA Negative Negative mg/dL [facility] Blood UA Negative Negative [facility] Nitrite UA Negative Negative [facility] Leukocyte Esterase Negative Negative [facility] Urobilinogen UA 3.0(H) <2.0 mg/dL [facility] RBC UA 2 0 - 8 /HPF [facility] WBC UA 1 0 - 2 /HPF [facility] Bacteria UA Rare Rare, Occasional, None /HPF [facility] Hyaline Casts UA 1 0 - 2 /LPF [facility] Urine specimen (specimen) URINE SPECIMEN OBTAINED BY CLEAN CATCH PROCEDURE / Unknown 08/06/2017 11:43 AM SALES ACTIVITY MANAGER 08/06/2017 12:23 PM SALES ACTIVITY MANAGER Tino Santiago MD LAB - URINALYSIS ORD ERABLES Performing Organization Address [facility]/ZIP Co de Phone Number [address] [phone] * QUANTIFERON TB-GOLD INC (08/06/2017 11:43 AM SALES ACTIVITY MANAGER) Only the most recent of2 resultswithin the time period is included. QuantiFERON TB Gold Negative Negative [facility] ([facility]) Comment: The specimen received for QuantiFERON testing was incubated by the ordering institution. ??Specific procedures outlined in our Directory of Services and in the package insert for the QuantiFERON Gold (In Tube) test must be followed to enable for proper stimulation of cells for the production of interferon gamma. QuantiFERON Criteria Comment [facility] ([facility]) Comment: To be considered positive a specimen should have a TB Ag minus Nil value greater than or equal to 0.35 IU/mL and in addition the TB Ag minus Nil value must be greater than or equal to 25% of the Nil value. There may be insufficient information in these values to differentiate between some negative and some indeterminate test values. QuantiFERON TB Antigen Value 0.11 IU/mL [facility] ([facility]) QuantiFERON Nil Value 0.37 IU/mL [facility] ([facility]) QuantiFERON Mitogen Value 5.08 IU/mL [facility] ([facility]) QFT TB Ag minus Nil Value <0.00 IU/mL [facility] ([facility]) Interpretation Comment [facility] ([facility]) Comment: The QuantiFERON TB Gold (in Tube) assay is intended for use as an aid in the diagnosis of TB infection. Negative results suggest that there is no TB infection. In patients with high suspicion of exposure, a negative test should be repeated. A positive test indicates infection with Mycobacterium tuberculosis. Among individuals without tuberculosis infection, a positive test may be due to exposure to M. kansasii, M. szulgai or M. marinum. On the Internet, go to cdc.gov/tb for further details. Blood specimen (specimen) BLOOD SPECIMEN / Unknown 08/06/2017 11:43 AM SALES ACTIVITY MANAGER 08/06/2017 12:27 PM SALES ACTIVITY MANAGER Narrative [facility] ([facility]) - 08/11/2017 5:07 PM SALES ACTIVITY MANAGER Performed at: ??01 - [facility] [address], [place] ??[id number] Insurance Claims Analyst: Tio Segal PhD, Phone: ??[phone] Tino Santiago MD LAB - SEROLOGY ORDER [facility] ([facility]) [address] [place] [address], [facility] * CANCER ANTIGEN (CA) 19-9 (08/06/2017 11:43 AM SALES ACTIVITY MANAGER) Only the most recent of2 resultswithin the time period is included. CA 19-9 22.830 <35.000 U/mL [facility] Comment: CA 19-9 values will vary depending on testing procedure used. Results are not comparable across different methods. CA 19-9 values obtained in [facility] using a Tulio Lyn Immunoassay. Blood specimen (specimen) BLOOD SPECIMEN / Unknown 08/06/2017 11:43 AM SALES ACTIVITY MANAGER 08/06/2017 12:26 PM SALES ACTIVITY MANAGER Tino Santiago MD LAB - CHEMISTRY [facility] [address] [phone] * NICOTINE + METABOLITES BLOOD (08/06/2017 11:43 AM SALES ACTIVITY MANAGER) Only the most recent of2 resultswithin the time period is included. Pathologist [facility] Nicotine None Detected ng/mL [facility] ([facility]) Comment: Nicotine levels greater than 2.0 are consistent with the use of tobacco or tobacco cessation products. Cotinine None Detected ng/mL [facility] ([facility]) Comment: Cotinine levels greater than 20.0 are consistent with the use of tobacco or tobacco cessation products. Blood specimen (specimen) BLOOD SPECIMEN / Unknown 08/06/2017 11:43 AM SALES ACTIVITY MANAGER 08/06/2017 12:26 PM SALES ACTIVITY MANAGER Narrative [facility] ([facility]) - 08/09/2017 9:17 AM SALES ACTIVITY MANAGER Performed at: ??01 - [facility] [address] ??[id number] Insurance Claims Analyst: Peter Treadwell MD, Phone: ??[phone] Tino Santiago MD LAB - CHEMISTRY LUIS ENRIQUE CELIS [facility] ([facility]) [address] [place] [address] * HIV-1 HIV-2 ANTIGEN/ANTIBODY (08/06/2017 11:43 AM SALES ACTIVITY MANAGER) Only the most recent of2 resultswithin the time period is included. HIV Antigen/Antibod y 1 & 2 Non-reacti ve Non-react rosendo [facility] Comment: Neither HIV-1 p24 Antigen nor HIV-1/HIV-2 Antibodies are detected. ? Blood specimen (specimen) BLOOD SPECIMEN / Unknown 08/06/2017 11:43 AM SALES ACTIVITY MANAGER 08/06/2017 12:24 PM SALES ACTIVITY MANAGER Tino Santiago MD LAB - HEMATOLOGY ORD ERABLES Performing Organization Address [facility] Co de Phone Number [address] [phone] * PSA FREE + TOTAL PANEL (08/06/2017 11:43 AM SALES ACTIVITY MANAGER) Only the most recent of2 resultswithin the time period is included. Pathologist [facility] PSA Total <0.1 0.0 - 4.0 ng/mL [facility] PSA Free <0.10 0.00 - 0.50 ng/mL [facility] PSA % Free See Comment % [facility] Comment:Unable to calculate % Free PSA due to Free and/or Total PSA concentration(s) being <0.1 ng/mL. Blood specimen (specimen) BLOOD SPECIMEN / Unknown 08/06/2017 11:43 AM SALES ACTIVITY MANAGER 08/06/2017 12:24 PM SALES ACTIVITY MANAGER Tino Santiago MD LAB - CHEMISTRY [facility] EN[facility]QUE CELIS Performing Organization Address City/[facility]/ZIP Co de Phone Number [address] [phone] * RPR (08/06/2017 11:43 AM SALES ACTIVITY MANAGER) Only the most recent of2 resultswithin the time period is included. Pathologist [facility] RPR Non-reacti ve Non-reacti ve [facility] Blood specimen (specimen) BLOOD SPECIMEN / Unknown 08/06/2017 11:43 AM SALES ACTIVITY MANAGER 08/06/2017 12:24 PM SALES ACTIVITY MANAGER Tino Santiago MD LAB - CHEMISTRY LU[facility] EN[facility]QUE CELIS Performing Organization Address [facility]/State/ZIP Co de Phone Number [address] [phone] * RUBEOLA ANTIBODY IGG (08/06/2017 11:43 AM SALES ACTIVITY MANAGER) Only the most recent of2 resultswithin the time period is included. Measles (Rubeola) Antibody IgG >300.0 Immune >29.9 AU/mL [facility] Comment: ? Negative ?<25.0 ? Equivocal 25.0 - 29.9 ? Positive ?>29.9 Presence of antibodies to Rubeola is presumptive evidence of immunity except when acute infection is suspected. Blood specimen (specimen) BLOOD SPECIMEN / Unknown 08/06/2017 11:43 AM SALES ACTIVITY MANAGER 08/06/2017 12:26 PM SALES ACTIVITY MANAGER Narrative [facility] - 08/07/2017 3:18 PM SALES ACTIVITY MANAGER Performed at: ??01 - [facility] [address], [place] ??[phone] Insurance Claims Analyst: Tio Segal PhD, Phone: ??[phone] Tino Santiago MD LAB - CHEMISTRY [facility] ENRIQUE CELIS Performing Organization Address City/[facility]/ZIP Co de Phone Number [facility] [address] [place] [address] * VARICELLA ZOSTER ANTIBODY IGG (08/06/2017 11:43 AM SALES ACTIVITY MANAGER) Varicella zoster Virus Antibody IgG >4000 Immune >165 index [facility] Comment: ? Negative ?<135 ? Equivocal ?135 - 165 ? Positive ?>165 A positive result generally indicates exposure to the pathogen or administration of specific immunoglobulins, but it is not indication of active infection or stage of disease. Blood specimen (specimen) BLOOD SPECIMEN / Unknown 08/06/2017 11:43 AM SALES ACTIVITY MANAGER 08/06/2017 12:26 PM SALES ACTIVITY MANAGER Narrative [facility] - 08/07/2017 3:18 PM SALES ACTIVITY MANAGER Performed at: ??01 - [facility] [address], [place] ??[phone] Insurance Claims Analyst: Tio Segal PhD, Phone: ??[phone] Tino Santiago MD LAB - CHEMISTRY LU[facility] ENRIQUE CELIS Performing Organization Address [facility] de Phone Number [facility] [address] [place] [address] * (ABNORMAL) TRANSFERRIN (08/06/2017 11:43 AM SALES ACTIVITY MANAGER) Only the most recent of3 resultswithin the time period is included. Transferrin 161(L) 174 - 382 mg/dL [facility] Transferrin Saturation % 80(H) 16 - 50 % [facility] Blood specimen (specimen) BLOOD SPECIMEN / Unknown 08/06/2017 11:43 AM SALES ACTIVITY MANAGER 08/06/2017 12:24 PM SALES ACTIVITY MANAGER Tino Santiago MD LAB - CHEMISTRY [facility] C[facility] Performing Organization Address City/[facility] Co de Phone Number [address] [phone] * RUBELLA ANTIBODY IGG (08/06/2017 11:43 AM SALES ACTIVITY MANAGER) Only the most recent of2 resultswithin the time period is included. [facility] Rubella Antibody IgG Quantitative >33.00 Immune >0.99 index [facility] Comment: ?Non-immune ? <0.90 ?Equivocal ??0.90 - 0.99 ?Immune ? >0.99 Blood specimen (specimen) BLOOD SPECIMEN / Unknown 08/06/2017 11:43 AM SALES ACTIVITY MANAGER 08/06/2017 12:24 PM SALES ACTIVITY MANAGER Narrative [facility] - 08/07/2017 3:10 AM SALES ACTIVITY MANAGER Performed at: ??01 - [facility] [address], [place] ??[phone] Insurance Claims Analyst: Tio Segal PhD, Phone: ??[phone] Tino Santiago MD LAB - SEROLOGY KAREL MAYRA Performing Organization Address [facility] Co de Phone Number [facility] [address] [place] [address] * HEPATITIS B CORE ANTIBODY (08/06/2017 11:43 AM SALES ACTIVITY MANAGER) Only the most recent of3 resultswithin the time period is included. [facility] HBc Antibody Total Non-reacti ve Non-reacti ve [facility] Blood specimen (specimen) BLOOD SPECIMEN / Unknown 08/06/2017 11:43 AM SALES ACTIVITY MANAGER 08/06/2017 12:24 PM SALES ACTIVITY MANAGER Tino Santiago MD LAB - CHEMISTRY [facility] EN[facility] CEL[facility] Performing Organization Address City/[facility]/[place] [address], [facility] [phone] * ALCOHOL ETHYL BLOOD (08/06/2017 11:43 AM SALES ACTIVITY MANAGER) Only the most recent of3 resultswithin the time period is included. Interpretation Ethanol None Detected None Detected mg/dL [facility] Comment:Ethanol levels less than 10 mg/dL are resulted as None detected . Blood specimen (specimen) BLOOD SPECIMEN / Unknown 08/06/2017 11:43 AM SALES ACTIVITY MANAGER 08/06/2017 12:24 PM SALES ACTIVITY MANAGER Tino Santiago MD LAB - CHEMISTRY [facility] CEL[facility] Performing Organization Address [facility] de Phone Number [address] [phone] * (ABNORMAL) FERRITIN (08/06/2017 11:43 AM SALES ACTIVITY MANAGER) Only the most recent of3 resultswithin the time period is included. Ferritin 323(H) 22 - 275 ng/mL [facility] Blood specimen (specimen) BLOOD SPECIMEN / Unknown 08/06/2017 11:43 AM SALES ACTIVITY MANAGER 08/06/2017 12:24 PM SALES ACTIVITY MANAGER Tino Santiago MD LAB - CHEMISTRY [facility] CEL[facility] Performing Organization Address [facility] Phone Number [address] [phone] * CYTOMEGALOVIRUS ANTIBODY IGG BLOOD (08/06/2017 11:43 AM SALES ACTIVITY MANAGER) Only the most recent of2 resultswithin the time period is included. Cytomegalovirus Antibody IgG <0.60 0.00 - 0.59 U/mL [facility] Comment: ? Negative ?<0.60 ? Equivocal ?? 0.60 - 0.69 ? Positive ?>0.69 Blood specimen (specimen) BLOOD SPECIMEN / Unknown 08/06/2017 11:43 AM SALES ACTIVITY MANAGER 08/06/2017 12:24 PM SALES ACTIVITY MANAGER Narrative [facility] - 08/08/2017 5:12 AM SALES ACTIVITY MANAGER Performed at: ??01 - [address] ??[phone] Insurance Claims Analyst: Tio Segal PhD, Phone: ??[phone] Tino Santiago MD LAB - CHEMISTRY LUIS ENRIQUE CELIS [facility] [address] [place] [address], [facility] * MUMPS ANTIBODY IGG (08/06/2017 11:43 AM SALES ACTIVITY MANAGER) Only the most recent of2 resultswithin the time period is included. Mumps Virus Antibody IgG >300.0 Immune >10.9 AU/mL [facility] Comment: ?Negative ? <9.0 ?Equivocal ??9.0 - 10.9 ?Positive ?>10.9 A positive result generally indicates past exposure to Mumps virus or previous vaccination. Blood specimen (specimen) BLOOD SPECIMEN / Unknown 08/06/2017 11:43 AM SALES ACTIVITY MANAGER 08/06/2017 12:25 PM SALES ACTIVITY MANAGER Narrative [facility] - 08/07/2017 3:18 PM SALES ACTIVITY MANAGER Performed at: ??01 - [address] ??[phone] Insurance Claims Analyst: Tio Segal PhD, Phone: ??[phone] Tino Santiago MD LAB - CHEMISTRY LUIS ENRIQUE CELIS [facility] [address] [place] [address] * (ABNORMAL) ÁNGEL-VOGEL VIRUS ANTIBODY TO VCA IGG (08/06/2017 11:43 AM SALES ACTIVITY MANAGER) Only the most recent of2 resultswithin the time period is included. Ángel-Vogel Virus Antibody To Viral Capsid Antigen IgG >750.0(H) 0.0 - 21.9 U/mL [facility] ([facility]) Comment: INTERPRETIVE INFORMATION: Ángel-Vogel Virus Antibody to ?Viral Capsid Antigen, IgG ??17.9 U/mL or less.......Not Detected ??18.0-21.9 U/mL..........Indeterminate - Repeat testing in ?10-14 days may be helpful. ??22.0 U/mL or greater....Detected Interpretive information regarding serologic features of EBV-associated diseases is available at [email or web address]. Performed by [employer], [address] [place] [address] [email or web address], Yoandy Martinez MD, Lab. Director Blood specimen (specimen) BLOOD SPECIMEN / Unknown 08/06/2017 11:43 AM SALES ACTIVITY MANAGER 08/06/2017 12:26 PM SALES ACTIVITY MANAGER Tino Santiago MD LAB - CHEMISTRY [facility] [address] [place] [address] * HEPATITIS B SURFACE ANTIGEN W RFLX CONFIRMATION (08/06/2017 11:43 AM SALES ACTIVITY MANAGER) Only the most recent of2 resultswithin the time period is included. Hepatitis B Virus Surface Antigen Screen Negative Negative [facility] Blood specimen (specimen) BLOOD SPECIMEN / Unknown 08/06/2017 11:43 AM SALES ACTIVITY MANAGER 08/06/2017 12:24 PM SALES ACTIVITY MANAGER Narrative [facility] - 08/07/2017 5:14 AM SALES ACTIVITY MANAGER Performed at: ??01 - [facility] [address] [facility], [place], [place] ??[phone] Insurance Claims Analyst: Tio Segal PhD, Phone: ??[phone] Tino Santiago MD LAB - CHEMISTRY LUIS ENRIQUE CELIS [facility] [address] [place] [address] * XR PANOREX (08/06/2017 11:29 AM SALES ACTIVITY MANAGER) Only the most recent of2 resultswithin the time period is included. Anatomical Region Laterality Modality Head Other Impressions 08/07/2017 3:16 PM SALES ACTIVITY MANAGER IMPRESSION: No evidence of periapical abscess. Dictated by Vivek Butler MD (radiology therapist). I, Dr. WALTER BACA M.D. have personally reviewed and interpreted this examination/study. This report was electronically signed by WALTER BACA M.D. ??on 08/07/2017 3:16 PM . Narrative 08/07/2017 3:16 PM SALES ACTIVITY MANAGER EXAMINATION: [facility] HISTORY: pre liver eval FINDINGS: No prior study is available for comparison at the time of this dictation. Multiple dental restorations are identified, and numerous teeth are absent. The right mandibular third molar is impacted and contains hypodensity consistent with tooth decay. Both temporomandibular joints are intact. No periapical abscess is present. Procedure Note Walter Baca MD - 12/06/2017 EXAMINATION: [facility] HISTORY: pre liver eval FINDINGS: No prior study is available for comparison at the time of thisdictation. Multiple dental restorations are identified, and numerous teeth areabsent. The right mandibular third molar is impacted and containshypodensity consistent with tooth decay. Both temporomandibular joints areintact. No periapical abscess is present. IMPRESSION IMPRESSION: No evidence of periapical abscess. Dictated by Vivek Butler MD (radiology therapist). I, Dr. WALTER BACA M.D. have personally reviewed and interpreted thisexamination/study. This report was electronically signed by WALTER BACA M.D. on 08/07/20173:16 PM . Tino Santiago MD DIAGNOSTIC IMAGING O RDERABLES * ECHO STRESS TEST W DOBUTAMINE (08/06/2017 12:00 AM SALES ACTIVITY MANAGER) Only the most recent of2 resultswithin the time period is included. Anatomical Region Laterality Modality Other 08/06/2017 Tino Santiago MD ECHOCARDIOGRAPHY RAD IANT * ECHO STRESS COLOR FLOW AND DOPPLER (08/06/2017 12:00 AM SALES ACTIVITY MANAGER) Only the most recent of2 resultswithin the time period is included. Anatomical Region Laterality Modality Other 08/06/2017 Tino Santiago MD ECHOCARDIOGRAPHY RAD IANT * IR VASCULAR CLOSURE DEVICE (07/02/2017 2:04 PM CDT) Anatomical Region Laterality Modality Other Impressions 07/09/2017 3:31 PM CDT Impression: Successful bland embolization of the segment 7 branch of the right hepatic artery with 100-300 micron Embospheres, as described above. Follow up: CT of the liver in 6-8 weeks with subsequent IR clinic visit after imaging is obtained. IR coordinator will call patient to schedule. Dr. Garcia performed/was present throughout the procedure and provided the moderate sedation service. Please see the nursing sedation flowsheet. This report was approved ??by Dang Cronin M.D. ?? on 07/02/2017 3:43 PM . I, Dr. JONY GARCIA M.D. have personally reviewed and interpreted this examination/study. This report was electronically signed by JONY GARCIA M.D. ??on 07/09/2017 3:31 PM . 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 The patient underwent thermal ablation of segment 7 HCC on 03/06/2017. Follow-up CT on 05/30/2017 showed nodular enhancement along the superomedial margin of the ablation cavity concerning for residual HCC. The patient was scheduled for TACE today. However, given total bilirubin of 4.7 and presence of portal vein thrombosis, the decision was made to perform superselective bland embolization instead given risk of liver failure. Operators: 1. ??Dr. Garcia, Attending Physician 2. ??Dr. Cronin, IR Fellow 3. ??Shandra Ritter, Medical Student Anesthesia: 1. ??Local anesthesia - 10 mL of 1% lidocaine 2. ??Intravenous conscious sedation - Versed 1 mg and Fentanyl 100 mcg Additional medications: 1. ??Ceftriaxone 1 g IV 2. ??Benadryl 50 mg IV 3. ??Nitroglycerin 600 mcg IA Procedure: 1. ??Ultrasound-guided access of the right common femoral artery. 2. ??Selective catheterization of the celiac artery (1st order) and angiogram. 3. ??Selective catheterization of the proper hepatic artery (3rd order) and angiogram. 4. ??3D Felicia CT with the catheter in the proper hepatic artery. 5. ??Selective catheterization of the right hepatic artery (beyond 3rd order) and angiogram. 6. ??Selective catheterization of the segment 7 branch of the right hepatic artery (beyond 3rd order) and angiogram. 7. ??[place] embolization of the segment 7 branch of the right hepatic artery with 100-300 micron Embospheres. 8. ??Post-embolization angiogram of the segment 7 branch of the right hepatic artery. 9. ??Hemostasis with Angioseal closure device. Start time: 1119 ?End time: 1355 ? Sedation initiated time: 1136 Fluoroscopic time: 39.6 minutes ?Contrast: 170 mL of Omnipaque 240 Procedure in detail: The procedure, risks, and possible complications were explained to the patient, and informed consent was obtained. The patient was brought to the angiography suite and placed supine on the procedure table. The right groin was prepped and draped in the usual sterile fashion. A asphalt mixing machine operator film of the abdomen was obtained, which was unremarkable. The patient received intravenous Versed and Fentanyl for conscious sedation. A qualified radiology nurse monitored the patient?s vital signs throughout the procedure. Limited ultrasound of the right common femoral artery demonstrated a patent vessel. The take off of the profunda and other arteries was identified. The right common femoral artery was accessed using a micropuncture needle under ultrasound guidance. The needle entry was documented. Following a series of exchanges, a 5-[place] vascular sheath was placed. The celiac artery (1st order) was catheterized with a 5 [place] Sos Omni-2 catheter and angiogram was obtained. The angiogram demonstrated a normal hepatic branching pattern. An attempt was made to catheterize the common hepatic artery with a 2.0 [place] Progreat microcatheter but was unsuccessful. Therefore, the Sos Omni 2 catheter was exchanged for a 4 [place] Cobra catheter and advanced into the proper hepatic artery. Angiogram was performed with the catheter in the proper hepatic artery which showed antegrade flow in the right and left hepatic arteries. No definite tumor blush was identified. 3D Felicia CT was obtained following the injection of contrast with the catheter in the proper hepatic artery. The data was sent to and analyzed at the [employer] work station. The study demonstrated nodular arterial enhancement in hepatic segment 7 at the dome superomedial to the ablation cavity. The right hepatic artery (beyond 3rd order) was then catheterized with a coaxially advanced 2.0 [place] Progreat microcatheter and angiogram was obtained. The angiogram again demonstrated antegrade flow in branch vessels; the segment 7 branches were identified. The segment 7 branch of the right hepatic artery (beyond 3rd order) was then catheterized with the microcatheter and angiogram was obtained, which showed blood flow to the region of tumor identified on Felicia CT. This was then followed by embolization of the segment 7 branch with 100-300 micron Embospheres to near stasis. Post-embolization angiogram of the segment 7 branch showed satisfactory stasis. A sheath angiogram of the right common femoral artery was unremarkable with femoral access away from the profunda. Hemostasis was achieved with an Angioseal closure device. A sterile dressing was applied. The patient tolerated the procedure well and was transferred to the holding area in stable condition. There were no immediate complications associated with the procedure. 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 Thepatient underwent thermal ablation of segment 7 HCC on 03/06/2017.Follow-up CT on 05/30/2017 showed nodular enhancement along the superomedial margin of the ablation cavityconcerning for residual HCC. The patient was scheduled for TACE today.However, given total bilirubin of 4.7 and presence of portal veinthrombosis, the decision was made to perform superselective bland embolization instead given risk of liver failure. Operators: 1. Dr. Garcia, Attending Physician 2. Dr. Cronin, IR Fellow 3. Shandra Ritter, Medical Student Anesthesia: 1. Local anesthesia - 10 mL of 1% lidocaine 2. Intravenous conscious sedation - Versed 1 mg and Fentanyl 100 mcg Additional medications: 1. Ceftriaxone 1 g IV 2. Benadryl 50 mg IV 3. Nitroglycerin 600 mcg IA Procedure: 1. Ultrasound-guided access of the right common femoral artery. 2. Selective catheterization of the celiac artery (1st order) andangiogram. 3. Selective catheterization of the proper hepatic artery (3rd order) andangiogram. 4. 3D [place]icia CT with the catheter in the proper hepatic artery. 5. Selective catheterization of the right hepatic artery (beyond 3rdorder) and angiogram. 6. Selective catheterization of the segment 7 branch of the right hepaticartery (beyond 3rd order) and angiogram. 7. [place] embolization of the segment 7 branch of the right hepatic arterywith 100-300 micron Embospheres. 8. Post-embolization angiogram of the segment 7 branch of the righthepatic artery. 9. Hemostasis with Angioseal closure device. Start time: 1119 End time: 1355 Sedation initiated time: 1136 Fluoroscopic time: 39.6 minutes Contrast: 170 mL of Omnipaque 240 Procedure in detail: The procedure, risks, and possible complications were explained to thepatient, and informed consent was obtained. The patient was brought to theangiography suite and placed supine on the procedure table. The rightgroin was prepped and draped in the usual sterile fashion. A asphalt mixing machine operator film of the abdomen was obtained, which wasunremarkable. The patient received intravenous Versed and Fentanyl for conscioussedation. A qualified radiology nurse monitored the patient?s vital signsthroughout the procedure. Limited ultrasound of the right common femoral artery demonstrated apatent vessel. The take off of the profunda and other arteries wasidentified. The right common femoral artery was accessed using amicropuncture needle under ultrasound guidance. The needle entry was documented. Following a series of exchanges, a 5-Frenchvascular sheath was placed. The celiac artery (1st order) was catheterized with a 5 [place] Sos Omni- 2catheter and angiogram was obtained. The angiogram demonstrated a normalhepatic branching pattern. An attempt was made to catheterize the commonhepatic artery with a 2.0 [place] Progreat microcatheter but was unsuccessful. Therefore, the Sos Omni 2catheter was exchanged for a 4 [place] Cobra catheter and advanced into theproper hepatic artery. Angiogram was performed with the catheter in theproper hepatic artery which showed antegrade flow in the right and left hepatic arteries. No definite tumorblush was identified. 3D Felicia CT was obtained following the injection of contrast with thecatheter in the proper hepatic artery. The data was sent to and analyzedat the [employer] work station. The study demonstrated nodular arterialenhancement in hepatic segment 7 at the dome superomedial to the ablation cavity. The right hepatic artery (beyond 3rd order) was then catheterized with acoaxially advanced 2.0 [place] Progreat microcatheter and angiogram wasobtained. The angiogram again demonstrated antegrade flow in branchvessels; the segment 7 branches were identified. The segment 7 branch of the right hepatic artery (beyond 3rd order) wasthen catheterized with the microcatheter and angiogram was obtained, whichshowed blood flow to the region of tumor identified on Felicia CT. This was then followed by embolization of the segment 7 branch [id number] micron Embospheres to near stasis. Post-embolization angiogram ofthe segment 7 branch showed satisfactory stasis. A sheath angiogram of the right common femoral artery was unremarkablewith femoral access away from the profunda. Hemostasis was achieved withan Angioseal closure device. A sterile dressing was applied. The patient tolerated the procedure well [facility]. There were no immediate complicationsassociated with the procedure. IMPRESSION Impression: Successful bland embolization of the segment 7 branch of theright hepatic artery with 100-300 micron Embospheres, as describedabove. Follow up: CT of the liver in 6-8 weeks with subsequent IR clinic visitafter imaging is obtained. IR coordinator will call patient to schedule. Dr. Garcia performed/was present throughout the procedure and providedthe moderate sedation service. Please see the nursing sedationflowsheet. This report was approved by Dang Cronin M.D. on 07/02/2017 3:43PM . Dr. JONY Reyes M.D. have personally reviewed and interpreted thisexamination/study. This report was electronically signed by JONY GARCIA M.D. on07/09/2017 3:31 PM . Jony Garcia MD IR ORDERABLES * IR ANGIO SELECTIVE (07/02/2017 2:04 PM CDT) Anatomical Region Laterality Modality Other Impressions 07/09/2017 3:31 PM CDT Impression: Successful bland embolization of the segment 7 branch of the right hepatic artery with 100-300 micron Embospheres, as described above. Follow up: CT of the liver in 6-8 weeks with subsequent IR clinic visit after imaging is obtained. IR coordinator will call patient to schedule. Dr. Garcia performed/was present throughout the procedure and provided the moderate sedation service. Please see the nursing sedation flowsheet. This report was approved ??by Dang Cronin M.D. ?? on 07/02/2017 3:[address] JONY Reyes M.D. have personally reviewed and interpreted this examination/study. This report was electronically signed by JONY GARCIA M.D. ??on 07/09/2017 3:31 PM . 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 The patient underwent thermal ablation of segment 7 HCC on 03/06/2017. Follow-up CT on 05/30/2017 showed nodular enhancement along the superomedial margin of the ablation cavity concerning for residual HCC. The patient was scheduled for TACE today. However, given total bilirubin of 4.7 and presence of portal vein thrombosis, the decision was made to perform superselective bland embolization instead given risk of liver failure. Operators: 1. ??Dr. Garcia, Attending Physician 2. ??Dr. Cronin, IR Fellow 3. ??Shandra Ritter, Medical Student Anesthesia: 1. ??Local anesthesia - 10 mL of 1% lidocaine 2. ??Intravenous conscious sedation - Versed 1 mg and Fentanyl 100 mcg Additional medications: 1. ??Ceftriaxone 1 g IV 2. ??Benadryl 50 mg IV 3. ??Nitroglycerin 600 mcg IA Procedure: 1. ??Ultrasound-guided access of the right common femoral artery. 2. ??Selective catheterization of the celiac artery (1st order) and angiogram. 3. ??Selective catheterization of the proper hepatic artery (3rd order) and angiogram. 4. ??3D Felicia CT with the catheter in the proper hepatic artery. 5. ??Selective catheterization of the right hepatic artery (beyond 3rd order) and angiogram. 6. ??Selective catheterization of the segment 7 branch of the right hepatic artery (beyond 3rd order) and angiogram. 7. ??[place] embolization of the segment 7 branch of the right hepatic artery with 100-300 micron Embospheres. 8. ??Post-embolization angiogram of the segment 7 branch of the right hepatic artery. 9. ??Hemostasis with Angioseal closure device. Start time: 1119 ?End time: 1355 ? Sedation initiated time: 1136 Fluoroscopic time: 39.6 minutes ?Contrast: 170 mL of Omnipaque 240 Procedure in detail: The procedure, risks, and possible complications were explained to the patient, and informed consent was obtained. The patient was brought to the angiography suite and placed supine on the procedure table. The right groin was prepped and draped in the usual sterile fashion. A asphalt mixing machine operator film of the abdomen was obtained, which was unremarkable. The patient received intravenous Versed and Fentanyl for conscious sedation. A qualified radiology nurse monitored the patient?s vital signs throughout the procedure. Limited ultrasound of the right common femoral artery demonstrated a patent vessel. The take off of the profunda and other arteries was identified. The right common femoral artery was accessed using a micropuncture needle under ultrasound guidance. The needle entry was documented. Following a series of exchanges, a 5-[place]an vascular sheath was placed. The celiac artery (1st order) was catheterized with a 5 [place] Sos Omni-2 catheter and angiogram was obtained. The angiogram demonstrated a normal hepatic branching pattern. An attempt was made to catheterize the common hepatic artery with a 2.0 [place] Progreat microcatheter but was unsuccessful. Therefore, the Sos Omni 2 catheter was exchanged for a 4 [place] Cobra catheter and advanced into the proper hepatic artery. Angiogram was performed with the catheter in the proper hepatic artery which showed antegrade flow in the right and left hepatic arteries. No definite tumor blush was identified. 3D Felicia CT was obtained following the injection of contrast with the catheter in the proper hepatic artery. The data was sent to and analyzed at the [employer] work station. The study demonstrated nodular arterial enhancement in hepatic segment 7 at the dome superomedial to the ablation cavity. The right hepatic artery (beyond 3rd order) was then catheterized with a coaxially advanced 2.0 [place] Progreat microcatheter and angiogram was obtained. The angiogram again demonstrated antegrade flow in branch vessels; the segment 7 branches were identified. The segment 7 branch of the right hepatic artery (beyond 3rd order) was then catheterized with the microcatheter and angiogram was obtained, which showed blood flow to the region of tumor identified on Felicia CT. This was then followed by embolization of the segment 7 branch with 100-300 micron Embospheres to near stasis. Post-embolization angiogram of the segment 7 branch showed satisfactory stasis. A sheath angiogram of the right common femoral artery was unremarkable with femoral access away from the profunda. Hemostasis was achieved with an Angioseal closure device. A sterile dressing was applied. The patient tolerated the procedure well and was transferred to the holding area in stable condition. There were no immediate complications associated with the procedure. 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 Thepatient underwent thermal ablation of segment 7 HCC on 03/06/2017.Follow-up CT on 05/30/2017 showed nodular enhancement along the superomedial margin of the ablation cavityconcerning for residual HCC. The patient was scheduled for TACE today.However, given total bilirubin of 4.7 and presence of portal veinthrombosis, the decision was made to perform superselective bland embolization instead given risk of liver failure. Operators: 1. Dr. Garcia, Attending Physician 2. Dr. Cronin, IR Fellow 3. Shandra Ritter, Medical Student Anesthesia: 1. Local anesthesia - 10 mL of 1% lidocaine 2. Intravenous conscious sedation - Versed 1 mg and Fentanyl 100 mcg Additional medications: 1. Ceftriaxone 1 g IV 2. Benadryl 50 mg IV 3. Nitroglycerin 600 mcg IA Procedure: 1. Ultrasound-guided access of the right common femoral artery. 2. Selective catheterization of the celiac artery (1st order) andangiogram. 3. Selective catheterization of the proper hepatic artery (3rd order) andangiogram. 4. 3D Felicia CT with the catheter in the proper hepatic artery. 5. Selective catheterization of the right hepatic artery (beyond 3rdorder) and angiogram. 6. Selective catheterization of the segment 7 branch of the right hepaticartery (beyond 3rd order) and angiogram. 7. [place] embolization of the segment 7 branch of the right hepatic arterywith 100-300 micron Embospheres. 8. Post-embolization angiogram of the segment 7 branch of the righthepatic artery. 9. Hemostasis with Angioseal closure device. Start time: 1119 End time: 1355 Sedation initiated time: 1136 Fluoroscopic time: 39.6 minutes Contrast: 170 mL of Omnipaque 240 Procedure in detail: The procedure, risks, and possible complications were explained to thepatient, and informed consent was obtained. The patient was brought to theangiography suite and placed supine on the procedure table. The rightgroin was prepped and draped in the usual sterile fashion. A asphalt mixing machine operator film of the abdomen was obtained, which wasunremarkable. The patient received intravenous Versed and Fentanyl for conscioussedation. A qualified radiology nurse monitored the patient?s vital signsthroughout the procedure. Limited ultrasound of the right common femoral artery demonstrated apatent vessel. The take off of the profunda and other arteries wasidentified. The right common femoral artery was accessed using amicropuncture needle under ultrasound guidance. The needle entry was documented. Following a series of exchanges, a 5-Frenchvascular sheath was placed. The celiac artery (1st order) was catheterized with a 5 [place] Sos Omni- 2catheter and angiogram was obtained. The angiogram demonstrated a normalhepatic branching pattern. An attempt was made to catheterize the commonhepatic artery with a 2.0 [place] Progreat microcatheter but was unsuccessful. Therefore, the Sos Omni 2catheter was exchanged for a 4 [place] Cobra catheter and advanced into theproper hepatic artery. Angiogram was performed with the catheter in theproper hepatic artery which showed antegrade flow in the right and left hepatic arteries. No definite tumorblush was identified. 3D Felicia CT was obtained following the injection of contrast with thecatheter in the proper hepatic artery. The data was sent to and analyzedat the [employer] work station. The study demonstrated nodular arterialenhancement in hepatic segment 7 at the dome superomedial to the ablation cavity. The right hepatic artery (beyond 3rd order) was then catheterized with acoaxially advanced 2.0 [place] Progreat microcatheter and angiogram wasobtained. The angiogram again demonstrated antegrade flow in branchvessels; the segment 7 branches were identified. The segment 7 branch of the right hepatic artery (beyond 3rd order) wasthen catheterized with the microcatheter and angiogram was obtained, whichshowed blood flow to the region of tumor identified on Felicia CT. This was then followed by embolization of the segment 7 branch [id number] micron Embospheres to near stasis. Post-embolization angiogram ofthe segment 7 branch showed satisfactory stasis. A sheath angiogram of the right common femoral artery was unremarkablewith femoral access away from the profunda. Hemostasis was achieved withan Angioseal closure device. A sterile dressing was applied. The patient tolerated the procedure well and [facility]. There were no immediate complicationsassociated with the procedure. IMPRESSION Impression: Successful bland embolization of the segment 7 branch of theright hepatic artery with 100-300 micron Embospheres, as describedabove. Follow up: CT of the liver in 6-8 weeks with subsequent IR clinic visitafter imaging is obtained. IR coordinator will call patient to schedule. Dr. Garcia performed/was present throughout the procedure and providedthe moderate sedation service. Please see the nursing sedationflowsheet. This report was approved by Dang Cronin M.D. on 07/02/2017 3:43PM . I, Dr. JONY GARCIA M.D. have personally reviewed and interpreted thisexamination/study. This report was electronically signed by JONY GARCIA M.D. on07/09/2017 3:31 PM . Jony Garcia MD IR ORDERABLES * IR ANGIO EXTREMITY PROCEDURAL CODE (07/02/2017 2:04 PM CDT) Only the most recent of2 resultswithin the time period is included. Anatomical Region Laterality Modality Other Impressions 07/09/2017 3:31 PM CDT Impression: Successful bland embolization of the segment 7 branch of the right hepatic artery with 100-300 micron Embospheres, as described above. Follow up: CT of the liver in 6-8 weeks with subsequent IR clinic visit after imaging is obtained. IR coordinator will call patient to schedule. Dr. Garcia performed/was present throughout the procedure and provided the moderate sedation service. Please see the nursing sedation flowsheet. This report was approved ??by Dang Cronin M.D. ?? on 07/02/2017 3:43 PM . I, Dr. JONY GARCIA M.D. have personally reviewed and interpreted this examination/study. This report was electronically signed by JONY GARCIA M.D. ??on 07/09/2017 3:31 PM . 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 The patient underwent thermal ablation of segment 7 HCC on 03/06/2017. Follow-up CT on 05/30/2017 showed nodular enhancement along the superomedial margin of the ablation cavity concerning for residual HCC. The patient was scheduled for TACE today. However, given total bilirubin of 4.7 and presence of portal vein thrombosis, the decision was made to perform superselective bland embolization instead given risk of liver failure. Operators: 1. ??Dr. Garcia, Attending Physician 2. ??Dr. Cronin, IR Fellow 3. ??Shandra Hi, Medical Student Anesthesia: 1. ??Local anesthesia - 10 mL of 1% lidocaine 2. ??Intravenous conscious sedation - Versed 1 mg and Fentanyl 100 mcg Additional medications: 1. ??Ceftriaxone 1 g IV 2. ??Benadryl 50 mg IV 3. ??Nitroglycerin 600 mcg IA Procedure: 1. ??Ultrasound-guided access of the right common femoral artery. 2. ??Selective catheterization of the celiac artery (1st order) and angiogram. 3. ??Selective catheterization of the proper hepatic artery (3rd order) and angiogram. 4. ??3D [place] CT with the catheter in the proper hepatic artery. 5. ??Selective catheterization of the right hepatic artery (beyond 3rd order) and angiogram. 6. ??Selective catheterization of the segment 7 branch of the right hepatic artery (beyond 3rd order) and angiogram. 7. ??[place] embolization of the segment 7 branch of the right hepatic artery with 100-300 micron Embospheres. 8. ??Post-embolization angiogram of the segment 7 branch of the right hepatic artery. 9. ??Hemostasis with Angioseal closure device. Start time: 1119 ?End time: 1355 ? Sedation initiated time: 1136 Fluoroscopic time: 39.6 minutes ?Contrast: 170 mL of Omnipaque 240 Procedure in detail: The procedure, risks, and possible complications were explained to the patient, and informed consent was obtained. The patient was brought to the angiography suite and placed supine on the procedure table. The right groin was prepped and draped in the usual sterile fashion. A asphalt mixing machine operator film of the abdomen was obtained, which was unremarkable. The patient received intravenous Versed and Fentanyl for conscious sedation. A qualified radiology nurse monitored the patient?s vital signs throughout the procedure. Limited ultrasound of the right common femoral artery demonstrated a patent vessel. The take off of the profunda and other arteries was identified. The right common femoral artery was accessed using a micropuncture needle under ultrasound guidance. The needle entry was documented. Following a series of exchanges, a 5-[place] vascular sheath was placed. The celiac artery (1st order) was catheterized with a 5 [place] Sos Omni-2 catheter and angiogram was obtained. The angiogram demonstrated a normal hepatic branching pattern. An attempt was made to catheterize the common hepatic artery with a 2.0 [place] Progreat microcatheter but was unsuccessful. Therefore, the Sos Omni 2 catheter was exchanged for a 4 [place] Cobra catheter and advanced into the proper hepatic artery. Angiogram was performed with the catheter in the proper hepatic artery which showed antegrade flow in the right and left hepatic arteries. No definite tumor blush was identified. 3D [place]icia CT was obtained following the injection of contrast with the catheter in the proper hepatic artery. The data was sent to and analyzed at the [employer] work station. The study demonstrated nodular arterial enhancement in hepatic segment 7 at the dome superomedial to the ablation cavity. The right hepatic artery (beyond 3rd order) was then catheterized with a coaxially advanced 2.0 [place] Progreat microcatheter and angiogram was obtained. The angiogram again demonstrated antegrade flow in branch vessels; the segment 7 branches were identified. The segment 7 branch of the right hepatic artery (beyond 3rd order) was then catheterized with the microcatheter and angiogram was obtained, which showed blood flow to the region of tumor identified on Felicia CT. This was then followed by embolization of the segment 7 branch with 100-300 micron Embospheres to near stasis. Post-embolization angiogram of the segment 7 branch showed satisfactory stasis. A sheath angiogram of the right common femoral artery was unremarkable with femoral access away from the profunda. Hemostasis was achieved with an Angioseal closure device. A sterile dressing was applied. The patient tolerated the procedure well and was transferred to the holding area in stable condition. There were no immediate complications associated with the procedure. 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 Thepatient underwent thermal ablation of segment 7 HCC on 03/06/2017.Follow-up CT on 05/30/2017 showed nodular enhancement along the superomedial margin of the ablation cavityconcerning for residual HCC. The patient was scheduled for TACE today.However, given total bilirubin of 4.7 and presence of portal veinthrombosis, the decision was made to perform superselective bland embolization instead given risk of liver failure. Operators: 1. Dr. Garcia, Attending Physician 2. Dr. Cronin, IR Fellow 3. Shandra Ritter, Medical Student Anesthesia: 1. Local anesthesia - 10 mL of 1% lidocaine 2. Intravenous conscious sedation - Versed 1 mg and Fentanyl 100 mcg Additional medications: 1. Ceftriaxone 1 g IV 2. Benadryl 50 mg IV 3. Nitroglycerin 600 mcg IA Procedure: 1. Ultrasound-guided access of the right common femoral artery. 2. Selective catheterization of the celiac artery (1st order) andangiogram. 3. Selective catheterization of the proper hepatic artery (3rd order) andangiogram. 4. 3D [place] CT with the catheter in the proper hepatic artery. 5. Selective catheterization of the right hepatic artery (beyond 3rdorder) and angiogram. 6. Selective catheterization of the segment 7 branch of the right hepaticartery (beyond 3rd order) and angiogram. 7. [place] embolization of the segment 7 branch of the right hepatic arterywith 100-300 micron Embospheres. 8. Post-embolization angiogram of the segment 7 branch of the righthepatic artery. 9. Hemostasis with Angioseal closure device. Start time: 1119 End time: 1355 Sedation initiated time: 1136 Fluoroscopic time: 39.6 minutes Contrast: 170 mL of Omnipaque 240 Procedure in detail: The procedure, risks, and possible complications were explained to thepatient, and informed consent was obtained. The patient was brought to theangiography suite and placed supine on the procedure table. The rightgroin was prepped and draped in the usual sterile fashion. A asphalt mixing machine operator film of the abdomen was obtained, which wasunremarkable. The patient received intravenous Versed and Fentanyl for conscioussedation. A qualified radiology nurse monitored the patient?s vital signsthroughout the procedure. Limited ultrasound of the right common femoral artery demonstrated apatent vessel. The take off of the profunda and other arteries wasidentified. The right common femoral artery was accessed using amicropuncture needle under ultrasound guidance. The needle entry was documented. Following a series of exchanges, a 5-Frenchvascular sheath was placed. The celiac artery (1st order) was catheterized with a 5 [place] Sos Omni- 2catheter and angiogram was obtained. The angiogram demonstrated a normalhepatic branching pattern. An attempt was made to catheterize the commonhepatic artery with a 2.0 [place] Progreat microcatheter but was unsuccessful. Therefore, the Sos Omni 2catheter was exchanged for a 4 [place] Cobra catheter and advanced into theproper hepatic artery. Angiogram was performed with the catheter in theproper hepatic artery which showed antegrade flow in the right and left hepatic arteries. No definite tumorblush was identified. 3D Felicia CT was obtained following the injection of contrast with thecatheter in the proper hepatic artery. The data was sent to and analyzedat the [employer] work station. The study demonstrated nodular arterialenhancement in hepatic segment 7 at the dome superomedial to the ablation cavity. The right hepatic artery (beyond 3rd order) was then catheterized with acoaxially advanced 2.0 [place] Progreat microcatheter and angiogram wasobtained. The angiogram again demonstrated antegrade flow in branchvessels; the segment 7 branches were identified. The segment 7 branch of the right hepatic artery (beyond 3rd order) wasthen catheterized with the microcatheter and angiogram was obtained, whichshowed blood flow to the region of tumor identified on Felicia CT. This was then followed by embolization of the segment 7 branch [id number] micron Embospheres to near stasis. Post-embolization angiogram ofthe segment 7 branch showed satisfactory stasis. A sheath angiogram of the right common femoral artery was unremarkablewith femoral access away from the profunda. Hemostasis was achieved withan Angioseal closure device. A sterile dressing was applied. The patient tolerated the procedure well and [facility]. There were no immediate complicationsassociated with the procedure. IMPRESSION Impression: Successful bland embolization of the segment 7 branch of theright hepatic artery with 100-300 micron Embospheres, as describedabove. Follow up: CT of the liver in 6-8 weeks with subsequent IR clinic visitafter imaging is obtained. IR coordinator will call patient to schedule. Dr. Garcia performed/was present throughout the procedure and providedthe moderate sedation service. Please see the nursing sedationflowsheet. This report was approved by Dang Cronin M.D. on 07/02/2017 3:43PM . I, Dr. JONY GARCIA M.D. have personally reviewed and interpreted thisexamination/study. This report was electronically signed by JONY GARCIA M.D. on07/09/2017 3:31 PM . Jony Garcia MD IR ORDERABLES * IR US GUIDE VASCULAR ACCESS (07/02/2017 2:04 PM CDT) Anatomical Region Laterality Modality Other Impressions 07/09/2017 3:31 PM CDT Impression: Successful bland embolization of the segment 7 branch of the right hepatic artery with 100-300 micron Embospheres, as described above. Follow up: CT of the liver in 6-8 weeks with subsequent IR clinic visit after imaging is obtained. IR coordinator will call patient to schedule. Dr. Garcia performed/was present throughout the procedure and provided the moderate sedation service. Please see the nursing sedation flowsheet. This report was approved ??by Dang Cronin M.D. ?? on 07/02/2017 3:43 PM . I, Dr. JONY GARCIA M.D. have personally reviewed and interpreted this examination/study. This report was electronically signed by JONY GARCIA M.D. ??on 07/09/2017 3:31 PM . 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 The patient underwent thermal ablation of segment 7 HCC on 03/06/2017. Follow-up CT on 05/30/2017 showed nodular enhancement along the superomedial margin of the ablation cavity concerning for residual HCC. The patient was scheduled for TACE today. However, given total bilirubin of 4.7 and presence of portal vein thrombosis, the decision was made to perform superselective bland embolization instead given risk of liver failure. Operators: 1. ??Dr. Garcia, Attending Physician 2. ??Dr. Cronin, IR Fellow 3. ??Shandra Ritter, Medical Student Anesthesia: 1. ??Local anesthesia - 10 mL of 1% lidocaine 2. ??Intravenous conscious sedation - Versed 1 mg and Fentanyl 100 mcg Additional medications: 1. ??Ceftriaxone 1 g IV 2. ??Benadryl 50 mg IV 3. ??Nitroglycerin 600 mcg IA Procedure: 1. ??Ultrasound-guided access of the right common femoral artery. 2. ??Selective catheterization of the celiac artery (1st order) and angiogram. 3. ??Selective catheterization of the proper hepatic artery (3rd order) and angiogram. 4. ??3D [place] CT with the catheter in the proper hepatic artery. 5. ??Selective catheterization of the right hepatic artery (beyond 3rd order) and angiogram. 6. ??Selective catheterization of the segment 7 branch of the right hepatic artery (beyond 3rd order) and angiogram. 7. ??[place] embolization of the segment 7 branch of the right hepatic artery with 100-300 micron Embospheres. 8. ??Post-embolization angiogram of the segment 7 branch of the right hepatic artery. 9. ??Hemostasis with Angioseal closure device. Start time: 1119 ?End time: 1355 ? Sedation initiated time: 1136 Fluoroscopic time: 39.6 minutes ?Contrast: 170 mL of Omnipaque 240 Procedure in detail: The procedure, risks, and possible complications were explained to the patient, and informed consent was obtained. The patient was brought to the angiography suite and placed supine on the procedure table. The right groin was prepped and draped in the usual sterile fashion. A asphalt mixing machine operator film of the abdomen was obtained, which was unremarkable. The patient received intravenous Versed and Fentanyl for conscious sedation. A qualified radiology nurse monitored the patient?s vital signs throughout the procedure. Limited ultrasound of the right common femoral artery demonstrated a patent vessel. The take off of the profunda and other arteries was identified. The right common femoral artery was accessed using a micropuncture needle under ultrasound guidance. The needle entry was documented. Following a series of exchanges, a 5-Chilean vascular sheath was placed. The celiac artery (1st order) was catheterized with a 5 [place] Sos Omni-2 catheter and angiogram was obtained. The angiogram demonstrated a normal hepatic branching pattern. An attempt was made to catheterize the common hepatic artery with a 2.0 [place] Progreat microcatheter but was unsuccessful. Therefore, the Sos Omni 2 catheter was exchanged for a 4 [place] Cobra catheter and advanced into the proper hepatic artery. Angiogram was performed with the catheter in the proper hepatic artery which showed antegrade flow in the right and left hepatic arteries. No definite tumor blush was identified. 3D [place]icia CT was obtained following the injection of contrast with the catheter in the proper hepatic artery. The data was sent to and analyzed at the [employer] work station. The study demonstrated nodular arterial enhancement in hepatic segment 7 at the dome superomedial to the ablation cavity. The right hepatic artery (beyond 3rd order) was then catheterized with a coaxially advanced 2.0 [place] Progreat microcatheter and angiogram was obtained. The angiogram again demonstrated antegrade flow in branch vessels; the segment 7 branches were identified. The segment 7 branch of the right hepatic artery (beyond 3rd order) was then catheterized with the microcatheter and angiogram was obtained, which showed blood flow to the region of tumor identified on Felicia CT. This was then followed by embolization of the segment 7 branch with 100-300 micron Embospheres to near stasis. Post-embolization angiogram of the segment 7 branch showed satisfactory stasis. A sheath angiogram of the right common femoral artery was unremarkable with femoral access away from the profunda. Hemostasis was achieved with an Angioseal closure device. A sterile dressing was applied. The patient tolerated the procedure well and was transferred to the holding area in stable condition. There were no immediate complications associated with the procedure. 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 Thepatient underwent thermal ablation of segment 7 HCC on 03/06/2017.Follow-up CT on 05/30/2017 showed nodular enhancement along the superomedial margin of the ablation cavityconcerning for residual HCC. The patient was scheduled for TACE today.However, given total bilirubin of 4.7 and presence of portal veinthrombosis, the decision was made to perform superselective bland embolization instead given risk of liver failure. Operators: 1. Dr. Garcia, Attending Physician 2. Dr. Cronin, IR Fellow 3. Shandra Ritter, Medical Student Anesthesia: 1. Local anesthesia - 10 mL of 1% lidocaine 2. Intravenous conscious sedation - Versed 1 mg and Fentanyl 100 mcg Additional medications: 1. Ceftriaxone 1 g IV 2. Benadryl 50 mg IV 3. Nitroglycerin 600 mcg IA Procedure: 1. Ultrasound-guided access of the right common femoral artery. 2. Selective catheterization of the celiac artery (1st order) andangiogram. 3. Selective catheterization of the proper hepatic artery (3rd order) andangiogram. 4. 3D [place] CT with the catheter in the proper hepatic artery. 5. Selective catheterization of the right hepatic artery (beyond 3rdorder) and angiogram. 6. Selective catheterization of the segment 7 branch of the right hepaticartery (beyond 3rd order) and angiogram. 7. [place] embolization of the segment 7 branch of the right hepatic arterywith 100-300 micron Embospheres. 8. Post-embolization angiogram of the segment 7 branch of the righthepatic artery. 9. Hemostasis with Angioseal closure device. Start time: 1119 End time: 1355 Sedation initiated time: 1136 Fluoroscopic time: 39.6 minutes Contrast: 170 mL of Omnipaque 240 Procedure in detail: The procedure, risks, and possible complications were explained to thepatient, and informed consent was obtained. The patient was brought to theangiography suite and placed supine on the procedure table. The rightgroin was prepped and draped in the usual sterile fashion. A asphalt mixing machine operator film of the abdomen was obtained, which wasunremarkable. The patient received intravenous Versed and Fentanyl for conscioussedation. A qualified radiology nurse monitored the patient?s vital signsthroughout the procedure. Limited ultrasound of the right common femoral artery demonstrated apatent vessel. The take off of the profunda and other arteries wasidentified. The right common femoral artery was accessed using amicropuncture needle under ultrasound guidance. The needle entry was documented. Following a series of exchanges, a 5-Frenchvascular sheath was placed. The celiac artery (1st order) was catheterized with a 5 [place] Sos Omni- 2catheter and angiogram was obtained. The angiogram demonstrated a normalhepatic branching pattern. An attempt was made to catheterize the commonhepatic artery with a 2.0 [place] Progreat microcatheter but was unsuccessful. Therefore, the Sos Omni 2catheter was exchanged for a 4 [place] Cobra catheter and advanced into theproper hepatic artery. Angiogram was performed with the catheter in theproper hepatic artery which showed antegrade flow in the right and left hepatic arteries. No definite tumorblush was identified. 3D Felicia CT was obtained following the injection of contrast with thecatheter in the proper hepatic artery. The data was sent to and analyzedat the [employer] work station. The study demonstrated nodular arterialenhancement in hepatic segment 7 at the dome superomedial to the ablation cavity. The right hepatic artery (beyond 3rd order) was then catheterized with acoaxially advanced 2.0 [place] Progreat microcatheter and angiogram wasobtained. The angiogram again demonstrated antegrade flow in branchvessels; the segment 7 branches were identified. The segment 7 branch of the right hepatic artery (beyond 3rd order) wasthen catheterized with the microcatheter and angiogram was obtained, whichshowed blood flow to the region of tumor identified on Felicia CT. This was then followed by embolization of the segment 7 branch [id number] micron Embospheres to near stasis. Post-embolization angiogram ofthe segment 7 branch showed satisfactory stasis. A sheath angiogram of the right common femoral artery was unremarkablewith femoral access away from the profunda. Hemostasis was achieved withan Angioseal closure device. A sterile dressing was applied. The patient tolerated the procedure well and was transferred to theholding area in stable condition. There were no immediate complicationsassociated with the procedure. IMPRESSION Impression: Successful bland embolization of the segment 7 branch of theright hepatic artery with 100-300 micron Embospheres, as describedabove. Follow up: CT of the liver in 6-8 weeks with subsequent IR clinic visitafter imaging is obtained. IR coordinator will call patient to schedule. Dr. Garcia performed/was present throughout the procedure and providedthe moderate sedation service. Please see the nursing sedationflowsheet. This report was approved by Dang Cronin M.D. on 07/02/2017 3:43PM . I, Dr. JONY GARCIA M.D. have personally reviewed and interpreted thisexamination/study. This report was electronically signed by JONY GARCIA M.D. on07/09/2017 3:31 PM . Jony Garcia MD IR ORDERABLES * IR EMBOLIZATION TRANSCATH THPY (07/02/2017 2:04 PM CDT) Anatomical Region Laterality Modality Other Impressions 07/09/2017 3:31 PM CDT Impression: Successful bland embolization of the segment 7 branch of the right hepatic artery with 100-300 micron Embospheres, as described above. Follow up: CT of the liver in 6-8 weeks with subsequent IR clinic visit after imaging is obtained. IR coordinator will call patient to schedule. Dr. Garcia performed/was present throughout the procedure and provided the moderate sedation service. Please see the nursing sedation flowsheet. This report was approved ??by Dang Cronin M.D. ?? on 07/02/2017 3:[address] JONY Reyes M.D. have personally reviewed and interpreted this examination/study. This report was electronically signed by JONY GARCIA M.D. ??on 07/09/2017 3:31 PM . 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 The patient underwent thermal ablation of segment 7 HCC on 03/06/2017. Follow-up CT on 05/30/2017 showed nodular enhancement along the superomedial margin of the ablation cavity concerning for residual HCC. The patient was scheduled for TACE today. However, given total bilirubin of 4.7 and presence of portal vein thrombosis, the decision was made to perform superselective bland embolization instead given risk of liver failure. Operators: 1. ??Dr. Garcia, Attending Physician 2. ??Dr. Cronin, IR Fellow 3. ??Shandra Ritter, Medical Student Anesthesia: 1. ??Local anesthesia - 10 mL of 1% lidocaine 2. ??Intravenous conscious sedation - Versed 1 mg and Fentanyl 100 mcg Additional medications: 1. ??Ceftriaxone 1 g IV 2. ??Benadryl 50 mg IV 3. ??Nitroglycerin 600 mcg IA Procedure: 1. ??Ultrasound-guided access of the right common femoral artery. 2. ??Selective catheterization of the celiac artery (1st order) and angiogram. 3. ??Selective catheterization of the proper hepatic artery (3rd order) and angiogram. 4. ??3D [place] CT with the catheter in the proper hepatic artery. 5. ??Selective catheterization of the right hepatic artery (beyond 3rd order) and angiogram. 6. ??Selective catheterization of the segment 7 branch of the right hepatic artery (beyond 3rd order) and angiogram. 7. ??[place] embolization of the segment 7 branch of the right hepatic artery with 100-300 micron Embospheres. 8. ??Post-embolization angiogram of the segment 7 branch of the right hepatic artery. 9. ??Hemostasis with Angioseal closure device. Start time: 1119 ?End time: 1355 ? Sedation initiated time: 1136 Fluoroscopic time: 39.6 minutes ?Contrast: 170 mL of Omnipaque 240 Procedure in detail: The procedure, risks, and possible complications were explained to the patient, and informed consent was obtained. The patient was brought to the angiography suite and placed supine on the procedure table. The right groin was prepped and draped in the usual sterile fashion. A asphalt mixing machine operator film of the abdomen was obtained, which was unremarkable. The patient received intravenous Versed and Fentanyl for conscious sedation. A qualified radiology nurse monitored the patient?s vital signs throughout the procedure. Limited ultrasound of the right common femoral artery demonstrated a patent vessel. The take off of the profunda and other arteries was identified. The right common femoral artery was accessed using a micropuncture needle under ultrasound guidance. The needle entry was documented. Following a series of exchanges, a 5-Ch[place]an vascular sheath was placed. The celiac artery (1st order) was catheterized with a 5 [place] Sos Omni-2 catheter and angiogram was obtained. The angiogram demonstrated a normal hepatic branching pattern. An attempt was made to catheterize the common hepatic artery with a 2.0 [place] Progreat microcatheter but was unsuccessful. Therefore, the Sos Omni 2 catheter was exchanged for a 4 [place] Cobra catheter and advanced into the proper hepatic artery. Angiogram was performed with the catheter in the proper hepatic artery which showed antegrade flow in the right and left hepatic arteries. No definite tumor blush was identified. 3D [place] CT was obtained following the injection of contrast with the catheter in the proper hepatic artery. The data was sent to and analyzed at the [employer] work station. The study demonstrated nodular arterial enhancement in hepatic segment 7 at the dome superomedial to the ablation cavity. The right hepatic artery (beyond 3rd order) was then catheterized with a coaxially advanced 2.0 [place] Progreat microcatheter and angiogram was obtained. The angiogram again demonstrated antegrade flow in branch vessels; the segment 7 branches were identified. The segment 7 branch of the right hepatic artery (beyond 3rd order) was then catheterized with the microcatheter and angiogram was obtained, which showed blood flow to the region of tumor identified on Felicia CT. This was then followed by embolization of the segment 7 branch with 100-300 micron Embospheres to near stasis. Post-embolization angiogram of the segment 7 branch showed satisfactory stasis. A sheath angiogram of the right common femoral artery was unremarkable with femoral access away from the profunda. Hemostasis was achieved with an Angioseal closure device. A sterile dressing was applied. The patient tolerated the procedure well and was transferred to the holding area in stable condition. There were no immediate complications associated with the procedure. 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 Thepatient underwent thermal ablation of segment 7 HCC on 03/06/2017.Follow-up CT on 05/30/2017 showed nodular enhancement along the superomedial margin of the ablation cavityconcerning for residual HCC. The patient was scheduled for TACE today.However, given total bilirubin of 4.7 and presence of portal veinthrombosis, the decision was made to perform superselective bland embolization instead given risk of liver failure. Operators: 1. Dr. Garcia, Attending Physician 2. Dr. Cronin, IR Fellow 3. Shandra Ritter, Medical Student Anesthesia: 1. Local anesthesia - 10 mL of 1% lidocaine 2. Intravenous conscious sedation - Versed 1 mg and Fentanyl 100 mcg Additional medications: 1. Ceftriaxone 1 g IV 2. Benadryl 50 mg IV 3. Nitroglycerin 600 mcg IA Procedure: 1. Ultrasound-guided access of the right common femoral artery. 2. Selective catheterization of the celiac artery (1st order) andangiogram. 3. Selective catheterization of the proper hepatic artery (3rd order) andangiogram. 4. 3D [place] CT with the catheter in the proper hepatic artery. 5. Selective catheterization of the right hepatic artery (beyond 3rdorder) and angiogram. 6. Selective catheterization of the segment 7 branch of the right hepaticartery (beyond 3rd order) and angiogram. 7. [place] embolization of the segment 7 branch of the right hepatic arterywith 100-300 micron Embospheres. 8. Post-embolization angiogram of the segment 7 branch of the righthepatic artery. 9. Hemostasis with Angioseal closure device. Start time: 1119 End time: 1355 Sedation initiated time: 1136 Fluoroscopic time: 39.6 minutes Contrast: 170 mL of Omnipaque 240 Procedure in detail: The procedure, risks, and possible complications were explained to thepatient, and informed consent was obtained. The patient was brought to theangiography suite and placed supine on the procedure table. The rightgroin was prepped and draped in the usual sterile fashion. A asphalt mixing machine operator film of the abdomen was obtained, which wasunremarkable. The patient received intravenous Versed and Fentanyl for conscioussedation. A qualified radiology nurse monitored the patient?s vital signsthroughout the procedure. Limited ultrasound of the right common femoral artery demonstrated apatent vessel. The take off of the profunda and other arteries wasidentified. The right common femoral artery was accessed using amicropuncture needle under ultrasound guidance. The needle entry was documented. Following a series of exchanges, a 5-Frenchvascular sheath was placed. The celiac artery (1st order) was catheterized with a 5 [place] Sos Omni- 2catheter and angiogram was obtained. The angiogram demonstrated a normalhepatic branching pattern. An attempt was made to catheterize the commonhepatic artery with a 2.0 [place] Progreat microcatheter but was unsuccessful. Therefore, the Sos Omni 2catheter was exchanged for a 4 [place] Cobra catheter and advanced into theproper hepatic artery. Angiogram was performed with the catheter in theproper hepatic artery which showed antegrade flow in the right and left hepatic arteries. No definite tumorblush was identified. 3D Felicia CT was obtained following the injection of contrast with thecatheter in the proper hepatic artery. The data was sent to and analyzedat the [employer] work station. The study demonstrated nodular arterialenhancement in hepatic segment 7 at the dome superomedial to the ablation cavity. The right hepatic artery (beyond 3rd order) was then catheterized with acoaxially advanced 2.0 [place] Progreat microcatheter and angiogram wasobtained. The angiogram again demonstrated antegrade flow in branchvessels; the segment 7 branches were identified. The segment 7 branch of the right hepatic artery (beyond 3rd order) wasthen catheterized with the microcatheter and angiogram was obtained, whichshowed blood flow to the region of tumor identified on Felicia CT. This was then followed by embolization of the segment 7 branch [id number] micron Embospheres to near stasis. Post-embolization angiogram ofthe segment 7 branch showed satisfactory stasis. A sheath angiogram of the right common femoral artery was unremarkablewith femoral access away from the profunda. Hemostasis was achieved withan Angioseal closure device. A sterile dressing was applied. The patient tolerated the procedure well and [facility]. There were no immediate complicationsassociated with the procedure. IMPRESSION Impression: Successful bland embolization of the segment 7 branch of theright hepatic artery with 100-300 micron Embospheres, as describedabove. Follow up: CT of the liver in 6-8 weeks with subsequent IR clinic visitafter imaging is obtained. IR coordinator will call patient to schedule. Dr. Garcia performed/was present throughout the procedure and providedthe moderate sedation service. Please see the nursing sedationflowsheet. This report was approved by Dang Cronin M.D. on 07/02/2017 3:43PM . Dr. JONY Reyes M.D. have personally reviewed and interpreted thisexamination/study. This report was electronically signed by JONY GARCIA M.D. on07/09/2017 3:31 PM . oJny Garcia MD IR ORDERABLES * IR VISCERAL ANGIO (07/02/2017 2:04 PM CDT) Anatomical Region Laterality Modality Abdomen Other Impressions 07/09/2017 3:31 PM CDT Impression: Successful bland embolization of the segment 7 branch of the right hepatic artery with 100-300 micron Embospheres, as described above. Follow up: CT of the liver in 6-8 weeks with subsequent IR clinic visit after imaging is obtained. IR coordinator will call patient to schedule. Dr. Garcia performed/was present throughout the procedure and provided the moderate sedation service. Please see the nursing sedation flowsheet. This report was approved ??by Dang Cronin M.D. ?? on 07/02/2017 3:43 PM . I, Dr. JONY GARCIA M.D. have personally reviewed and interpreted this examination/study. This report was electronically signed by JONY GARCIA M.D. ??on 07/09/2017 3:31 PM . 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 The patient underwent thermal ablation of segment 7 HCC on 03/06/2017. Follow-up CT on 05/30/2017 showed nodular enhancement along the superomedial margin of the ablation cavity concerning for residual HCC. The patient was scheduled for TACE today. However, given total bilirubin of 4.7 and presence of portal vein thrombosis, the decision was made to perform superselective bland embolization instead given risk of liver failure. Operators: 1. ??Dr. Garcia, Attending Physician 2. ??Dr. Cronin, IR Fellow 3. ??Shandra Ritter, Medical Student Anesthesia: 1. ??Local anesthesia - 10 mL of 1% lidocaine 2. ??Intravenous conscious sedation - Versed 1 mg and Fentanyl 100 mcg Additional medications: 1. ??Ceftriaxone 1 g IV 2. ??Benadryl 50 mg IV 3. ??Nitroglycerin 600 mcg IA Procedure: 1. ??Ultrasound-guided access of the right common femoral artery. 2. ??Selective catheterization of the celiac artery (1st order) and angiogram. 3. ??Selective catheterization of the proper hepatic artery (3rd order) and angiogram. 4. ??3D Felicia CT with the catheter in the proper hepatic artery. 5. ??Selective catheterization of the right hepatic artery (beyond 3rd order) and angiogram. 6. ??Selective catheterization of the segment 7 branch of the right hepatic artery (beyond 3rd order) and angiogram. 7. ??[place] embolization of the segment 7 branch of the right hepatic artery with 100-300 micron Embospheres. 8. ??Post-embolization angiogram of the segment 7 branch of the right hepatic artery. 9. ??Hemostasis with Angioseal closure device. Start time: 1119 ?End time: 1355 ? Sedation initiated time: 1136 Fluoroscopic time: 39.6 minutes ?Contrast: 170 mL of Omnipaque 240 Procedure in detail: The procedure, risks, and possible complications were explained to the patient, and informed consent was obtained. The patient was brought to the angiography suite and placed supine on the procedure table. The right groin was prepped and draped in the usual sterile fashion. A asphalt mixing machine operator film of the abdomen was obtained, which was unremarkable. The patient received intravenous Versed and Fentanyl for conscious sedation. A qualified radiology nurse monitored the patient?s vital signs throughout the procedure. Limited ultrasound of the right common femoral artery demonstrated a patent vessel. The take off of the profunda and other arteries was identified. The right common femoral artery was accessed using a micropuncture needle under ultrasound guidance. The needle entry was documented. Following a series of exchanges, a 5-[place]an vascular sheath was placed. The celiac artery (1st order) was catheterized with a 5 [place] Sos Omni-2 catheter and angiogram was obtained. The angiogram demonstrated a normal hepatic branching pattern. An attempt was made to catheterize the common hepatic artery with a 2.0 [place] Progreat microcatheter but was unsuccessful. Therefore, the Sos Omni 2 catheter was exchanged for a 4 [place] Cobra catheter and advanced into the proper hepatic artery. Angiogram was performed with the catheter in the proper hepatic artery which showed antegrade flow in the right and left hepatic arteries. No definite tumor blush was identified. 3D Felicia CT was obtained following the injection of contrast with the catheter in the proper hepatic artery. The data was sent to and analyzed at the [employer] work station. The study demonstrated nodular arterial enhancement in hepatic segment 7 at the dome superomedial to the ablation cavity. The right hepatic artery (beyond 3rd order) was then catheterized with a coaxially advanced 2.0 [place] Progreat microcatheter and angiogram was obtained. The angiogram again demonstrated antegrade flow in branch vessels; the segment 7 branches were identified. The segment 7 branch of the right hepatic artery (beyond 3rd order) was then catheterized with the microcatheter and angiogram was obtained, which showed blood flow to the region of tumor identified on Felicia CT. This was then followed by embolization of the segment 7 branch with 100-300 micron Embospheres to near stasis. Post-embolization angiogram of the segment 7 branch showed satisfactory stasis. A sheath angiogram of the right common femoral artery was unremarkable with femoral access away from the profunda. Hemostasis was achieved with an Angioseal closure device. A sterile dressing was applied. The patient tolerated the procedure well and was transferred to the holding area in stable condition. There were no immediate complications associated with the procedure. 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 Thepatient underwent thermal ablation of segment 7 HCC on 03/06/2017.Follow-up CT on 05/30/2017 showed nodular enhancement along the superomedial margin of the ablation cavityconcerning for residual HCC. The patient was scheduled for TACE today.However, given total bilirubin of 4.7 and presence of portal veinthrombosis, the decision was made to perform superselective bland embolization instead given risk of liver failure. Operators: 1. Dr. Garcia, Attending Physician 2. Dr. Cronin, IR Fellow 3. Shandra Ritter, Medical Student Anesthesia: 1. Local anesthesia - 10 mL of 1% lidocaine 2. Intravenous conscious sedation - Versed 1 mg and Fentanyl 100 mcg Additional medications: 1. Ceftriaxone 1 g IV 2. Benadryl 50 mg IV 3. Nitroglycerin 600 mcg IA Procedure: 1. Ultrasound-guided access of the right common femoral artery. 2. Selective catheterization of the celiac artery (1st order) andangiogram. 3. Selective catheterization of the proper hepatic artery (3rd order) andangiogram. 4. 3D Felicia CT with the catheter in the proper hepatic artery. 5. Selective catheterization of the right hepatic artery (beyond 3rdorder) and angiogram. 6. Selective catheterization of the segment 7 branch of the right hepaticartery (beyond 3rd order) and angiogram. 7. [place] embolization of the segment 7 branch of the right hepatic arterywith 100-300 micron Embospheres. 8. Post-embolization angiogram of the segment 7 branch of the righthepatic artery. 9. Hemostasis with Angioseal closure device. Start time: 1119 End time: 1355 Sedation initiated time: 1136 Fluoroscopic time: 39.6 minutes Contrast: 170 mL of Omnipaque 240 Procedure in detail: The procedure, risks, and possible complications were explained to thepatient, and informed consent was obtained. The patient was brought to theangiography suite and placed supine on the procedure table. The rightgroin was prepped and draped in the usual sterile fashion. A asphalt mixing machine operator film of the abdomen was obtained, which wasunremarkable. The patient received intravenous Versed and Fentanyl for conscioussedation. A qualified radiology nurse monitored the patient?s vital signsthroughout the procedure. Limited ultrasound of the right common femoral artery demonstrated apatent vessel. The take off of the profunda and other arteries wasidentified. The right common femoral artery was accessed using amicropuncture needle under ultrasound guidance. The needle entry was documented. Following a series of exchanges, a 5-Frenchvascular sheath was placed. The celiac artery (1st order) was catheterized with a 5 [place] Sos Omni- 2catheter and angiogram was obtained. The angiogram demonstrated a normalhepatic branching pattern. An attempt was made to catheterize the commonhepatic artery with a 2.0 [place] Progreat microcatheter but was unsuccessful. Therefore, the Sos Omni 2catheter was exchanged for a 4 [place] Cobra catheter and advanced into theproper hepatic artery. Angiogram was performed with the catheter in theproper hepatic artery which showed antegrade flow in the right and left hepatic arteries. No definite tumorblush was identified. 3D Felicia CT was obtained following the injection of contrast with thecatheter in the proper hepatic artery. The data was sent to and analyzedat the [employer] work station. The study demonstrated nodular arterialenhancement in hepatic segment 7 at the dome superomedial to the ablation cavity. The right hepatic artery (beyond 3rd order) was then catheterized with acoaxially advanced 2.0 [place] Progreat microcatheter and angiogram wasobtained. The angiogram again demonstrated antegrade flow in branchvessels; the segment 7 branches were identified. The segment 7 branch of the right hepatic artery (beyond 3rd order) wasthen catheterized with the microcatheter and angiogram was obtained, whichshowed blood flow to the region of tumor identified on Felicia CT. This was then followed by embolization of the segment 7 branch [id number] micron Embospheres to near stasis. Post-embolization angiogram ofthe segment 7 branch showed satisfactory stasis. A sheath angiogram of the right common femoral artery was unremarkablewith femoral access away from the profunda. Hemostasis was achieved withan Angioseal closure device. A sterile dressing was applied. The patient tolerated the procedure well and [facility]. There were no immediate complicationsassociated with the procedure. IMPRESSION Impression: Successful bland embolization of the segment 7 branch of theright hepatic artery with 100-300 micron Embospheres, as describedabove. Follow up: CT of the liver in 6-8 weeks with subsequent IR clinic visitafter imaging is obtained. IR coordinator will call patient to schedule. Dr. Garcia performed/was present throughout the procedure and providedthe moderate sedation service. Please see the nursing sedationflowsheet. This report was approved by Dang Cronin M.D. on 07/02/2017 3:43PM . I, Dr. JONY GARCIA M.D. have personally reviewed and interpreted thisexamination/study. This report was electronically signed by JONY GARCIA M.D. on07/09/2017 3:31 PM . Jony Garcia MD IR ORDERABLES * US ABDOMEN DOPPLER ONLY LTD (06/19/2017 3:38 PM CDT) Only the most recent of2 resultswithin the time period is included. Anatomical Region Laterality Modality Abdomen Other Impressions 06/20/2017 1:24 PM CDT IMPRESSION: 1. Left varicocele. 2. Otherwise, normal ultrasound examination of the testes. Dictated by Jenni An MD (resident). This report was approved ??by Hua An M.D. ?? on 06/20/2017 10:[address] Horace Reyes M.D. have personally reviewed and interpreted this examination/study. This report was electronically signed by Horace MICHAEL M.D. ??on 06/20/2017 1:24 PM . Narrative 06/20/2017 1:24 PM CDT EXAMINATION: Scrotal sonogram HISTORY: Pain right testicle, status post right inguinal hernia repair COMPARISON: No prior study is available for comparison. FINDINGS: Right testicle: ?4.2 x 1.8 x 3.3 cm Right epididymis: 0.8 x 0.7 cm Left testicle: 4.4 x 1.7 x 2.8 cm Left epididymis: 0.8 x 0.5 x cm The testicles are normal in size and echotexture. No focal testicular parenchymal lesion is seen. There is testicular arterial flow bilaterally. The epididymides are normal in size. No hydrocele is identified. There is left varicocele. No right varicocele is seen. Procedure Note Tessy Michael MD - 12/06/2017 EXAMINATION: Scrotal sonogram HISTORY: Pain right testicle, status post right inguinal hernia repair COMPARISON: No prior study is available for comparison. FINDINGS: Right testicle: 4.2 x 1.8 x 3.3 cm Right epididymis: 0.8 x 0.7 cm Left testicle: 4.4 x 1.7 x 2.8 cm Left epididymis: 0.8 x 0.5 x cm The testicles are normal in size and echotexture. No focal testicularparenchymal lesion is seen. There is testicular arterial flow bilaterally.The epididymides are normal in size. No hydrocele is identified. There isleft varicocele. No right varicocele is seen. IMPRESSION IMPRESSION: 1. Left varicocele. 2. Otherwise, normal ultrasound examination of the testes. Dictated by Jenni An MD (resident). This report was approved by Hua An M.D. on 06/20/2017 10:36AM . Dr. Horace Reyes M.D. have personally reviewed and interpreted thisexamination/study. This report was electronically signed by Horace MICHAEL M.D. on06/20/2017 1:24 PM . Janae Diaz MD US ORDERABLES * US SCROTUM AND CONTENTS (06/19/2017 3:38 PM CDT) Anatomical Region Laterality Modality Pelvis Other Impressions 06/20/2017 1:24 PM CDT IMPRESSION: 1. Left varicocele. 2. Otherwise, normal ultrasound examination of the testes. Dictated by Jenni An MD (resident). This report was approved ??by Hua An M.D. ?? on 06/20/2017 10:[address] Horace Reyes M.D. have personally reviewed and interpreted this examination/study. This report was electronically signed by Horace MICHAEL M.D. ??on 06/20/2017 1:24 PM . Narrative 06/20/2017 1:24 PM CDT EXAMINATION: Scrotal sonogram HISTORY: Pain right testicle, status post right inguinal hernia repair COMPARISON: No prior study is available for comparison. FINDINGS: Right testicle: ?4.2 x 1.8 x 3.3 cm Right epididymis: 0.8 x 0.7 cm Left testicle: 4.4 x 1.7 x 2.8 cm Left epididymis: 0.8 x 0.5 x cm The testicles are normal in size and echotexture. No focal testicular parenchymal lesion is seen. There is testicular arterial flow bilaterally. The epididymides are normal in size. No hydrocele is identified. There is left varicocele. No right varicocele is seen. Procedure Note Tessy Michael MD - 12/06/2017 EXAMINATION: Scrotal sonogram HISTORY: Pain right testicle, status post right inguinal hernia repair COMPARISON: No prior study is available for comparison. FINDINGS: Right testicle: 4.2 x 1.8 x 3.3 cm Right epididymis: 0.8 x 0.7 cm Left testicle: 4.4 x 1.7 x 2.8 cm Left epididymis: 0.8 x 0.5 x cm The testicles are normal in size and echotexture. No focal testicularparenchymal lesion is seen. There is testicular arterial flow bilaterally.The epididymides are normal in size. No hydrocele is identified. There isleft varicocele. No right varicocele is seen. IMPRESSION IMPRESSION: 1. Left varicocele. 2. Otherwise, normal ultrasound examination of the testes. Dictated by Jenni An MD (resident). This report was approved by Hua An M.D. on 06/20/2017 10:36AM . I, Dr. Horace MICHAEL M.D. have personally reviewed and interpreted thisexamination/study. This report was electronically signed by Horace MICHAEL M.D. on06/20/2017 1:24 PM . Janae Diaz MD US ORDERABLES * CREATININE BLOOD - POCT (IP) [facility] (05/30/2017) Only the most recent of2 resultswithin the time period is included. Creatinine POCT 0.85 0.3 - 1.3 mg/dL [facility] eGFR POCT 60 60 ml/min [facility] 05/30/2017 Jony Garcia MD LAB - POINT OF CARE ORDERABLES [facility] * CT PARENCHYMAL TISSUE ABLATION (03/06/2017 1:27 PM CDT) Anatomical Region Laterality Modality Other Impressions 03/10/2017 11:20 PM CDT Impression: CT guided thermal ablation of segment 7/8 HCC lesion, as described above. Followup: Contrast enhanced triple phase CT scan will be performed after end of 4-6 weeks ??and will be seen in the clinic after the follow up CT imaging. I Dr Garcia performed/was present throughout the procedure. This report was approved ??by Silvino Xiong M.D. ?? on 03/06/2017 1:33 PM . I, Dr. JONY GARCIA M.D. have personally reviewed and interpreted this examination/study. This report was electronically signed by JONY GARCIA M.D. ??on 03/10/2017 11:20 PM . Narrative 03/10/2017 11:20 PM CDT History: 61 y.o.?M with PMHx of NAFLD cirrhosis complicated by portal thrombosis with cavernous transformation. Patient has a segment 7 HCC (LR-5g) measuring 0.9 cm in 12/30/2015,?1.3 cm in 07/17/2016, 1.7 cm in 09/19/2016. His?3-phase liver CT on 01/02/2017 shows: 1. Interval increased size of hepatic segment 7/8 hepatocellular carcinoma measuring 2 x 1.9 x 1.7 cm, previously 1.6 x 1.6 x 1.6 cm (LR 5). No new arterial enhancing observation is identified. Tumor board recommended Image guided thermal ablation. Operators: 1. ??Dr. Garcia, Attending Physician 2. ??Dr. Xiong, IR fellow Anesthesia: 1. ??Local anesthesia - 10 ml of 1 % lidocaine 2. ??General anesthesia Procedure: 1. ??Limited non-contrast CT examination of the liver. 2. ??CT guided thermal ablation of liver segment 7/8 HCC. Procedure in Detail: The procedure and possible complications were explained to the patient in detail, and informed consent was obtained. Patient was given general anesthesia and was placed supine position on the CT table. A limited non-contrast CT examination was performed with radio-opaque grid markers over the region of interest. The limited CT examination of the liver was performed, demonstrating hypoechoic segments 7/8 mass corresponding to the mass seen on previous images. An appropriate percutaneous entry site was marked on the skin. The marked site and skin around the region was prepped and draped in a sterile fashion. Local anesthesia was provided by the injection with 1% Lidocaine. A AK 15 probe (3 -4 cm ablation zone) was advanced in stages under CT guidance and deployed across the lesion. After confirming the position of the probe, thermal ablation was performed as per the protocol (10 minutes-65 W). An overlapping session was also performed after repositioning the probe slightly proximal (10 minutes-65 W). The probe was retrieved after ablating the track. A final image was obtained, which did not show any immediate complication like hemorrhage. Sterile dressing was applied. The patient was extubated and was transferred to anesthesia recovery area in stable condition. Procedure Note Jony Garcia MD - 12/06/2017 History: 61 y.o.?M with PMHx of NAFLD cirrhosis complicated by portalthrombosis with cavernous transformation. Patient has a segment 7 HCC(LR-5g) measuring 0.9 cm in 12/30/2015,?1.3 cm in 07/17/2016, 1.7 cm in09/19/2016. His?3-phase liver CT on 01/02/2017 shows: 1. Interval increased size of hepatic segment 7/8 hepatocellularcarcinoma measuring 2 x 1.9 x 1.7 cm, previously 1.6 x 1.6 x 1.6 cm (LR5). No new arterial enhancing observation is identified. Tumor boardrecommended Image guided thermal ablation. Operators: 1. Dr. Garcia, Attending Physician 2. Dr. Xiong, IR fellow Anesthesia: 1. Local anesthesia - 10 ml of 1 % lidocaine 2. General anesthesia Procedure: 1. Limited non-contrast CT examination of the liver. 2. CT guided thermal ablation of liver segment 7/8 HCC. Procedure in Detail: The procedure and possible complications wereexplained to the patient in detail, and informed consent was obtained. Patient was given general anesthesia and was placed supine position on theCT table. A limited non-contrast CT examination was performed with radio-opaque gridmarkers over the region of interest. The limited CT examination of theliver was performed, demonstrating hypoechoic segments 7/8 masscorresponding to the mass seen on previous images. An appropriate percutaneous entry site was marked on the skin. The marked site and skin around the region was prepped and draped in asterile fashion. Local anesthesia was provided by the injection with 1%Lidocaine. A AK 15 probe (3 -4 cm ablation zone) was advanced in stagesunder CT guidance and deployed across the lesion. After confirming the position of the probe, thermal ablationwas performed as per the protocol (10 minutes-65 W). An overlappingsession was also performed after repositioning the probe slightly proximal(10 minutes-65 W). The probe was retrieved after ablating the track. A final image was obtained, which did not show any immediate complicationlike hemorrhage. Sterile dressing was applied. The patient was extubatedand was transferred to anesthesia recovery area in stable condition. IMPRESSION Impression: CT guided thermal ablation of segment 7/8 HCC lesion, asdescribed above. Followup: Contrast enhanced triple phase CT scan will be performed afterend of 4-6 weeks and will be seen in the clinic after the follow up CTimaging. I Dr Garcia performed/was present throughout the procedure. This report was approved by Silvino Xiong M.D. on 03/06/2017 1:33 PM . I, Dr. JONY GARCIA M.D. have personally reviewed and interpreted thisexamination/study. This report was electronically signed by JONY GARCIA M.D. on 03/10/201711:20 PM . Vishal Lyons MD CT ORDERABLES * CT MICROWAVE ABLATION (03/06/2017 1:27 PM CDT) Anatomical Region Laterality Modality Other Impressions 03/10/2017 11:20 PM CDT Impression: CT guided thermal ablation of segment 7/8 HCC lesion, as described above. Followup: Contrast enhanced triple phase CT scan will be performed after end of 4-6 weeks ??and will be seen in the clinic after the follow up CT imaging. I Dr Garcia performed/was present throughout the procedure. This report was approved ??by Silvino Xiong M.D. ?? on 03/06/2017 1:33 PM . I, Dr. JONY GARCIA M.D. have personally reviewed and interpreted this examination/study. This report was electronically signed by JONY GARCIA M.D. ??on 03/10/2017 11:20 PM . Narrative 03/10/2017 11:20 PM CDT History: 61 y.o.?M with PMHx of NAFLD cirrhosis complicated by portal thrombosis with cavernous transformation. Patient has a segment 7 HCC (LR-5g) measuring 0.9 cm in 12/30/2015,?1.3 cm in 07/17/2016, 1.7 cm in 09/19/2016. His?3-phase liver CT on 01/02/2017 shows: 1. Interval increased size of hepatic segment 7/8 hepatocellular carcinoma measuring 2 x 1.9 x 1.7 cm, previously 1.6 x 1.6 x 1.6 cm (LR 5). No new arterial enhancing observation is identified. Tumor board recommended Image guided thermal ablation. Operators: 1. ??Dr. Garcia, Attending Physician 2. ??Dr. Xiong, IR fellow Anesthesia: 1. ??Local anesthesia - 10 ml of 1 % lidocaine 2. ??General anesthesia Procedure: 1. ??Limited non-contrast CT examination of the liver. 2. ??CT guided thermal ablation of liver segment 7/8 HCC. Procedure in Detail: The procedure and possible complications were explained to the patient in detail, and informed consent was obtained. Patient was given general anesthesia and was placed supine position on the CT table. A limited non-contrast CT examination was performed with radio-opaque grid markers over the region of interest. The limited CT examination of the liver was performed, demonstrating hypoechoic segments 7/8 mass corresponding to the mass seen on previous images. An appropriate percutaneous entry site was marked on the skin. The marked site and skin around the region was prepped and draped in a sterile fashion. Local anesthesia was provided by the injection with 1% Lidocaine. A AK 15 probe (3 -4 cm ablation zone) was advanced in stages under CT guidance and deployed across the lesion. After confirming the position of the probe, thermal ablation was performed as per the protocol (10 minutes-65 W). An overlapping session was also performed after repositioning the probe slightly proximal (10 minutes-65 W). The probe was retrieved after ablating the track. A final image was obtained, which did not show any immediate complication like hemorrhage. Sterile dressing was applied. The patient was extubated and was transferred to anesthesia recovery area in stable condition. Procedure Note Jony Garcia MD - 12/06/2017 History: 61 y.o.?M with PMHx of NAFLD cirrhosis complicated by portalthrombosis with cavernous transformation. Patient has a segment 7 HCC(LR-5g) measuring 0.9 cm in 12/30/2015,?1.3 cm in 07/17/2016, 1.7 cm in09/19/2016. His?3-phase liver CT on 01/02/2017 shows: 1. Interval increased size of hepatic segment 7/8 hepatocellularcarcinoma measuring 2 x 1.9 x 1.7 cm, previously 1.6 x 1.6 x 1.6 cm (LR5). No new arterial enhancing observation is identified. Tumor boardrecommended Image guided thermal ablation. Operators: 1. Dr. Garcia, Attending Physician 2. Dr. Xiong, IR fellow Anesthesia: 1. Local anesthesia - 10 ml of 1 % lidocaine 2. General anesthesia Procedure: 1. Limited non-contrast CT examination of the liver. 2. CT guided thermal ablation of liver segment 7/8 HCC. Procedure in Detail: The procedure and possible complications wereexplained to the patient in detail, and informed consent was obtained. Patient was given general anesthesia and was placed supine position on theCT table. A limited non-contrast CT examination was performed with radio-opaque gridmarkers over the region of interest. The limited CT examination of theliver was performed, demonstrating hypoechoic segments 7/8 masscorresponding to the mass seen on previous images. An appropriate percutaneous entry site was marked on the skin. The marked site and skin around the region was prepped and draped in asterile fashion. Local anesthesia was provided by the injection with 1%Lidocaine. A AK 15 probe (3 -4 cm ablation zone) was advanced in stagesunder CT guidance and deployed across the lesion. After confirming the position of the probe, thermal ablationwas performed as per the protocol (10 minutes-65 W). An overlappingsession was also performed after repositioning the probe slightly proximal(10 minutes-65 W). The probe was retrieved after ablating the track. A final image was obtained, which did not show any immediate complicationlike hemorrhage. Sterile dressing was applied. The patient was extubatedand was transferred to anesthesia recovery area in stable condition. IMPRESSION Impression: CT guided thermal ablation of segment 7/8 HCC lesion, asdescribed above. Followup: Contrast enhanced triple phase CT scan will be performed afterend of 4-6 weeks and will be seen in the clinic after the follow up CTimaging. I Dr Garcia performed/was present throughout the procedure. This report was approved by Silvino Xiong M.D. on 03/06/2017 1:33 PM . I, Dr. JONY GARCIA M.D. have personally reviewed and interpreted thisexamination/study. This report was electronically signed by JONY GARCIA M.D. on 03/10/201711:20 PM . Vishal Lyons MD CT ORDERABLES * PREPARE PLATELET PHERESIS UNIT(S) (03/06/2017 9:13 AM CDT) Only the most recent of2 resultswithin the time period is included. Unit Platelet Pheresis [id number] transfused [facility] (BEAKER) Unit ABO B H BLOOD BANK PRODUCTS (BEAKER) Unit Rh POS H BLOOD BANK PRODUCTS (BEAKER) Unit Number [id number] [facility] (BEAKER) Unit Status Transfused [facility] BLO OD BANK PRODUCTS (BEAKER) Irradiated Platelet [id number] transfused [facility] (BEAKER) Unit ABO O H BLOOD BANK PRODUCTS (BEAKER) Unit Rh POS H BLOOD BANK PRODUCTS (BEAKER) Unit Number [id number] [facility] (BEAKER) Unit Status Transfused [facility] BLO OD BANK PRODUCTS (BEAKER) 03/06/2017 9:13 AM CDT 03/06/2017 9:21 AM CDT Narrative [facility] (BEAKER) - 03/06/2017 9:13 AM CDT # of Units->2 Cortessherrill Gomezam Zack Carr Asst LAB - BLO OD BANK ORDERABLES [facility] (BEAKER) * CULTURE AEROBIC (10/06/2016 12:07 AM SALES ACTIVITY MANAGER) Culture Aerobic No Growth at 1 week [facility] Gram Stain Many Red Blood Cells [facility] Gram Stain No Organism Seen [facility] Fluid specimen (specimen) 10/06/2016 12:07 AM SALES ACTIVITY MANAGER 10/06/2016 12:57 AM SALES ACTIVITY MANAGER Narrative [facility] - 10/13/2016 2:58 PM SALES ACTIVITY MANAGER Peritoneal fluid Specimen Type->Body Fluid Gram Stains are routinely screened for the presence of Polymorphonuclear Cells. Jerrell Brown MD LAB - [place] [address], [facility] [phone] * CULTURE ANAEROBE (10/06/2016 12:07 AM SALES ACTIVITY MANAGER) Culture Anaerobic No Growth at 1 week [facility] Fluid specimen (specimen) 10/06/2016 12:07 AM SALES ACTIVITY MANAGER 10/06/2016 12:57 AM SALES ACTIVITY MANAGER Narrative [facility] - 10/15/2016 11:21 AM SALES ACTIVITY MANAGER Peritoneal fluid Specimen Type->Body Fluid Jerrell Brown MD LAB - MICROBIOLOGY O [place] Performing Organization Address [facility] [place] [address], [facility] [phone] * CT ABDOMEN PELVIS W CONTRAST (10/05/2016 6:34 PM SALES ACTIVITY MANAGER) Anatomical Region Laterality Modality Abdomen, Pelvis Other Impressions 10/06/2016 12:07 PM SALES ACTIVITY MANAGER IMPRESSION: 1. Indirect right inguinal hernia containing a fluid and a small bowel loop which demonstrates mild wall thickening. There is proximal small bowel distention and fecalization representing bowel obstruction 2. Hepatocellular carcinoma at the liver dome, unchanged. Please see prior [address] performed 09/19/2016. 3. Hepatic cirrhosis with sequela of portal hypertension. Chronic portal vein thrombosis with cavernous transformation. Preliminary results were discussed with Dr. Morales by Dr. Butler on 05 October 2016 at 1752 hours. Dictated by Vivek Butler MD (radiology therapist). I, Dr. LESLY FERMIN M.D. have personally reviewed and interpreted this examination/study. This report was electronically signed by LESLY FERMIN M.D. ??on 10/06/2016 12:07 PM . Narrative 10/06/2016 12:07 PM SALES ACTIVITY MANAGER EXAMINATION: Computed tomography (CT) of the abdomen and pelvis with contrast HISTORY: 61-year-old male with a history of BRADSHAW cirrhosis and right internal hernia presenting to the emergency department with abdominal pain. TECHNIQUE: CT of the abdomen and pelvis was performed following the uneventful administration of 100 mL of Omnipaque 350 intravenous contrast according to standard protocol. COMPARISON: Comparison is made with a study from 07/17/2016. FINDINGS: The aorta is atherosclerotic but normal in caliber. Mild bilateral dependent atelectasis is present. The heart size is normal without pericardial effusion. The liver has a nodular surface, consistent with hepatic cirrhosis. An ill- defined 1.6 x 1.5 cm hyperattenuating observation in the hepatic dome (series 5 image 34) is incompletely characterized on this single phase examination, but appears grossly unchanged in size when compared to the prior exam in July 2016 and the liver protocol CT performed 09/19/2016. The gallbladder is contracted with a thickened wall. This is an indeterminate finding, but may be seen in the setting of liver disease. No radiopaque gallstones are identified. The intrahepatic and extrahepatic bile ducts are nondilated. Linear hyperattenuation near the portal confluence (series 5 image 90 and series 7 image 83) is unchanged. There is no opacification of the portal vein distal to this point (series 7 image 88), compatible with portal vein occlusion with cavernous transformation. Massive perisplenic and perigastric varices are identified with spontaneous left splenorenal shunt formation. The communicating left renal vein is markedly dilated measuring up to 5.5 cm in maximum axial dimension (series 5 image 22). A peripheral wedge-shaped area of hypoattenuation (series 5 image 66) may represent infarction. There is partial fatty replacement of the pancreas with fat stranding and edema the pancreatic head (series 5 image 92). Mild mesenteric edema is present without adjacent fluid collection. The kidneys enhance symmetrically. No ascites is seen. There is no evidence of renal calculus or hydronephrosis The distal esophagus is normal. The stomach is distended with ingested material. There is a partially imaged fluid and small bowel loop containing right inguinal hernia. There is dilatation and mild bowel wall thickening of the loop of bowel within the hernia sac (series 5 image 255). There is also fluid within the hernia sac. Small bowel proximal to the hernia is mildly distended with fecalization, suggesting bowel obstruction. The small bowel and large bowel are otherwise normal in caliber without evidence of wall thickening or obstruction. The appendix is not definitively seen; however, no inflammatory changes are seen in the right lower quadrant. No free peritoneal air is identified. There is no abdominal lymphadenopathy. The urinary bladder is distended with fluid and appears normal. The prostate is seen. No free fluid is seen within the pelvis. There is no pelvic lymphadenopathy. Bone windows demonstrate no suspicious lytic or blastic lesions. Chronic compression fractures of the L1 and L3 vertebral bodies are unchanged. Multilevel degenerative changes are seen in the spine. Procedure Note Lesly Fermin MD - 12/06/2017 EXAMINATION: Computed tomography (CT) of the abdomen and pelvis withcontrast HISTORY: 61-year-old male with a history of BRADSHAW cirrhosis and rightinternal hernia presenting to the emergency department with abdominalpain. TECHNIQUE: CT of the abdomen and pelvis was performed following theuneventful administration of 100 mL of Omnipaque 350 intravenous contrastaccording to standard protocol. COMPARISON: Comparison is made with a study from 07/17/2016. FINDINGS: The aorta is atherosclerotic but normal in caliber. Mild bilateral dependent atelectasis is present. The heart size is normalwithout pericardial effusion. The liver has a nodular surface, consistent with hepatic cirrhosis. Anill- defined 1.6 x 1.5 cm hyperattenuating observation in the hepatic dome(series 5 image 34) is incompletely characterized on this single phaseexamination, but appears grossly unchanged in size when compared [facility] the [facility]. The gallbladder is contracted witha thickened wall. This is an indeterminate finding, but may be seen in thesetting of liver disease. No radiopaque gallstones are identified. The intrahepatic and extrahepaticbile ducts are nondilated. Linear hyperattenuation near the portal confluence (series 5 image 90 andseries 7 image 83) is unchanged. There is no opacification of the portalvein distal to this point (series 7 image 88), compatible with portal veinocclusion with cavernous transformation. Massive perisplenic and perigastric varices are identifiedwith spontaneous left splenorenal shunt formation. The communicating leftrenal vein is markedly dilated measuring up to 5.5 cm in maximum axialdimension (series 5 image 22). A peripheral wedge-shaped area of hypoattenuation (series 5 image 66) mayrepresent infarction. There is partial fatty replacement of the pancreaswith fat stranding and edema the pancreatic head (series 5 image 92). Mildmesenteric edema is present without adjacent fluid collection. The kidneys enhance symmetrically. Noascites is seen. There is no evidence of renal calculus orhydronephrosis The distal esophagus is normal. The stomach is distended with ingestedmaterial. There is a partially imaged fluid and small bowel loopcontaining right inguinal hernia. There is dilatation and mild bowel wallthickening of the loop of bowel within the hernia sac (series 5 image 255). There is also fluid within the herniasac. Small bowel proximal to the hernia is mildly distended withfecalization, suggesting bowel obstruction. The small bowel and largebowel are otherwise normal in caliber without evidence of wall thickening or obstruction. The appendix is notdefinitively seen; however, no inflammatory changes are seen in the rightlower quadrant. No free peritoneal air is identified. There is noabdominal lymphadenopathy. The urinary bladder is distended with fluid and appears normal. Theprostate is seen. No free fluid is seen within the pelvis. There is nopelvic lymphadenopathy. Bone windows demonstrate no suspicious lytic or blastic lesions. Chroniccompression fractures of the L1 and L3 vertebral bodies are unchanged.Multilevel degenerative changes are seen in the spine. IMPRESSION IMPRESSION: 1. Indirect right inguinal hernia containing a fluid and a small bowelloop which demonstrates mild wall thickening. There is proximal smallbowel distention and fecalization representing bowel obstruction 2. Hepatocellular carcinoma at the liver dome, unchanged. Please see prior3 phase liver protocol CT performed 09/19/2016. 3. Hepatic cirrhosis with sequela of portal hypertension. Chronic portalvein thrombosis with cavernous transformation. Preliminary results were discussed with Dr. Morales by Dr. Butler on 2016 at 1752 hours. Dictated by Vivek Butler MD (radiology therapist). I, Dr. LESLY FERMIN M.D. have personally reviewed and interpreted thisexamination/study. This report was electronically signed by LESLY FERMIN M.D. on10/06/2016 12:07 PM . Piper Renner MD CT ORDERABLES * PURPLE TOP TUBE EXTRA (10/05/2016 5:17 PM SALES ACTIVITY MANAGER) Extra Tube hold [facility] Blood specimen (specimen) BLOOD SPECIMEN / Unknown 10/05/2016 5:17 PM SALES ACTIVITY MANAGER 10/05/2016 5:22 PM SALES ACTIVITY MANAGER Piper Renner MD LAB - CHEMISTRY [facility] [address] [phone] * LIPASE BLOOD (09/12/2016 1:16 AM SALES ACTIVITY MANAGER) Only the most recent of2 resultswithin the time period is included. Lipase 13 8 - 78 Units/L [facility] Blood specimen (specimen) BLOOD SPECIMEN / Unknown 09/12/2016 1:16 AM SALES ACTIVITY MANAGER 09/12/2016 1:22 AM SALES ACTIVITY MANAGER Demetrice Prado MD LAB - CHEMISTRY [facility] Performing Organization Address [facility] Co de Phone Number [address] [phone] * XR LUMBAR SPINE 2 OR 3VW (08/28/2016 1:16 PM SALES ACTIVITY MANAGER) Only the most recent of2 resultswithin the time period is included. Anatomical Region Laterality Modality Spine Other Impressions 08/28/2016 3:32 PM SALES ACTIVITY MANAGER IMPRESSION: 1. Redemonstration of an L1 compression fracture with interval progression of anterior height loss, now greater than 50 percent. 2. Multilevel degenerative changes. This report was electronically signed by DASHAWN SUE MD ??on 08/28/2016 3:32 PM . Narrative 08/28/2016 3:32 PM SALES ACTIVITY MANAGER Exam: ??XR SPINE LUMBAR 2 OR 3 VW History: ??follow up Comparison: 09/23/2015 Findings: Motion artifact degrades the lateral image. There is a compression fracture of the L1 vertebral body with greater than 50 percent anterior height loss, intervally progressed. There is focal kyphosis centered at L1. No other fracture is seen. There is no subluxation. There is moderate degenerative disc disease at L5-S1 and mild to moderate degenerative change at other levels. Facet osteoarthritis is present. Procedure Note Dashawn Sue MD - 12/06/2017 Exam: XR SPINE LUMBAR 2 OR 3 VW History: follow up Comparison: 09/23/2015 Findings: Motion artifact degrades the lateral image. There is a compressionfracture of the L1 vertebral body with greater than 50 percent anteriorheight loss, intervally progressed. There is focal kyphosis centered atL1. No other fracture is seen. There is no subluxation. There is moderate degenerative disc disease at L5-S1 and mildto moderate degenerative change at other levels. Facet osteoarthritis ispresent. IMPRESSION IMPRESSION: 1. Redemonstration of an L1 compression fracture with interval progressionof anterior height loss, now greater than 50 percent. 2. Multilevel degenerative changes. This report was electronically signed by DASHAWN SUE MD on08/28/2016 3:32 PM . Kamilla Yeung PA-C DIAGNOSTIC IMAG ING ORDERABLES * ECHO W DOPPLER AND COLOR FLOW (08/22/2016 12:00 AM SALES ACTIVITY MANAGER) Anatomical Region Laterality Modality Other 08/22/2016 Mele Nevarez MD ECHOCARDIOGRAPHY RAD IANT * CT ANGIO BRAIN AND NECK (08/02/2016 12:18 PM SALES ACTIVITY MANAGER) Anatomical Region Laterality Modality Head Other Impressions 08/03/2016 10:18 AM SALES ACTIVITY MANAGER IMPRESSION: 1. No acute intracranial hemorrhage. 2. No large arterial occlusions or significant stenoses identified in the head or neck. I, Dr. STEVE ACOSTA M.D. have personally reviewed and interpreted this examination/study. This report was electronically signed by STEVE ACOSTA M.D. ??on 08/03/2016 10:18 AM . Narrative 08/03/2016 10:18 AM SALES ACTIVITY MANAGER EXAMINATION: 1. Computed tomography (CT) of the head without and with contrast 2. CT of the neck with contrast HISTORY: Dizziness, vertigo TECHNIQUE: CT of the head was performed without contrast according to standard protocol. Then CT angiography of the head and neck was obtained after the uneventful administration of 75 mL Omnipaque 350 intravenous contrast. Three dimensional postprocessing was performed by the technologist and sent to the workstation for review. FINDINGS: Comparison is made with a study from 09/15/2015 Non-angiographic findings: No acute intra- or extra-axial fluid collections are identified. There is mild cerebral volume loss with associated ex vacuo ventricular dilatation. The basilar cisterns are patent. No mass effect or midline shift is seen. The vences-white matter differentiation is normal. Stable calcification in the fourth ventricle may represent a calcified choroid plexus versus a small meningioma. Periventricular white matter hypoattenuation is indicative of chronic small vessel ischemic disease. There is vascular calcification of the carotid siphons. The visualized portions of the orbits, paranasal sinuses, and mastoids appear normal. No acute fracture is identified. No soft tissue abnormalities are identified in the neck. Moderate to severe degenerative changes are seen in the lower cervical spine. There is a diffuse short pedicles in the cervical spine, contributing to spinal canal stenosis. There is a tiny calcification in the right parotid gland. Angiographic findings: There is atherosclerotic disease of the aortic arch. The configuration of the brachiocephalic vessels is typical. The innominate artery and both subclavian arteries appear normal. The common carotid arteries appear normal. There is atherosclerotic disease at the carotid bifurcations extending into the origin of the internal carotid arteries without significant focal stenosis. The cervical internal carotid arteries appear normal. The cervical vertebral arteries appear normal. There is atherosclerotic disease involving the distal internal carotid arteries without significant focal stenosis. The anterior and middle cerebral arteries appear normal. The distal vertebral arteries appear normal. The basilar artery and posterior cerebral arteries appear normal. No aneurysms, vascular occlusions, or intracranial stenoses are identified. Procedure Note Steve Acosta MD - 12/07/2017 EXAMINATION: 1. Computed tomography (CT) of the head without and with contrast 2. CT of the neck with contrast HISTORY: Dizziness, vertigo TECHNIQUE: CT of the head was performed without contrast according tostandard protocol. Then CT angiography of the head and neck was obtainedafter the uneventful administration of 75 mL Omnipaque 350 intravenouscontrast. Three dimensional postprocessing was performed by the technologist and sent to theworkstation for review. FINDINGS: Comparison is made with a study from 09/15/2015 Non-angiographic findings: No acute intra- or extra-axial fluid collections are identified. There ismild cerebral volume loss with associated ex vacuo ventricular dilatation.The basilar cisterns are patent. No mass effect or midline shift is seen.The vences-white matter differentiation is normal. Stable calcification in the fourth ventriclemay represent a calcified choroid plexus versus a small meningioma.Periventricular white matter hypoattenuation is indicative of chronicsmall vessel ischemic disease. There is vascular calcification of the carotid siphons. The visualized portions ofthe orbits, paranasal sinuses, and mastoids appear normal. No acutefracture is identified. No soft tissue abnormalities are identified in the neck. Moderate tosevere degenerative changes are seen in the lower cervical spine. There bishop diffuse short pedicles in the cervical spine, contributing to spinalcanal stenosis. There is a tiny calcification in the right parotid gland. Angiographic findings: There is atherosclerotic disease of the aortic arch. The configuration ofthe brachiocephalic vessels is typical. The innominate artery and bothsubclavian arteries appear normal. The common carotid arteries appearnormal. There is atherosclerotic disease at the carotid bifurcations extending into the origin of theinternal carotid arteries without significant focal stenosis. The cervicalinternal carotid arteries appear normal. The cervical vertebral arteriesappear normal. There is atherosclerotic disease involving the distal internal carotidarteries without significant focal stenosis. The anterior and middlecerebral arteries appear normal. The distal vertebral arteries appearnormal. The basilar artery and posterior cerebral arteries appear normal. No aneurysms, vascular occlusions, orintracranial stenoses are identified. IMPRESSION IMPRESSION: 1. No acute intracranial hemorrhage. 2. No large arterial occlusions or significant stenoses identified in thehead or neck. Dr. STEVE Reyes M.D. have personally reviewed and interpreted thisexamination/study. This report was electronically signed by STEVE ACOSTA M.D. on 08/03/201610:18 AM . Paula Cuevas MD CT ORDERABLES * XR CHEST 2VW (08/02/2016 11:49 AM SALES ACTIVITY MANAGER) Anatomical Region Laterality Modality Chest Other Impressions 08/02/2016 4:55 PM SALES ACTIVITY MANAGER Impression: Bibasilar atelectasis, right greater than left, with small left pleural effusion. This report has been dictated by Ramiro Ribera M.D. (Resident). Dr. LESLY Reyes M.D. have personally reviewed and interpreted this examination/study. This report was electronically signed by LESLY FERMIN M.D. ??on 08/02/2016 4:55 PM . Narrative 08/02/2016 4:55 PM SALES ACTIVITY MANAGER Exam: XR CHEST PA AND LATERAL. Date: 08/02/2016 11:49 AM. History: Dizziness. Comparison: Comparison is made with a study from 09/17/2015. Findings: Bibasilar hazy opacities likely represent atelectasis. There is a small left pleural effusion. There is no focal consolidation, right pleural effusion or pneumothorax. The cardiomediastinal silhouette is normal. Mild degenerative changes are seen in the thoracic spine. The visible bony thorax is intact. Procedure Note Lesly Fermin MD - 12/07/2017 Exam: XR CHEST PA AND LATERAL. Date: 08/02/2016 11:49 AM. History: Dizziness. Comparison: Comparison is made with a study from 09/17/2015. Findings: Bibasilar hazy opacities likely represent atelectasis. There is a smallleft pleural effusion. There is no focal consolidation, right pleuraleffusion or pneumothorax. The cardiomediastinal silhouette is normal. Milddegenerative changes are seen in the thoracic spine. The visible bony thorax is intact. IMPRESSION Impression: Bibasilar atelectasis, right greater than left, with small left pleuraleffusion. This report has been dictated by Ramiro Ribera M.D. (Resident). I, Dr. LESLY FERMIN M.D. have personally reviewed and interpreted thisexamination/study. This report was electronically signed by LESLY FERMIN M.D. on08/02/2016 4:55 PM . Paula Cuevas MD DIAGNOSTIC IMAGING O RDERABLES * TROPONIN I (08/02/2016 10:25 AM SALES ACTIVITY MANAGER) Troponin I <0.010 <0.032 ng/mL [facility] Blood specimen (specimen) BLOOD SPECIMEN / Unknown 08/02/2016 10:25 AM SALES ACTIVITY MANAGER 08/02/2016 10:33 AM SALES ACTIVITY MANAGER Paula Cuevas MD LAB - CHEMISTRY ORDE RABLES [address] [phone] * CK + CKMB PANEL (08/02/2016 10:25 AM SALES ACTIVITY MANAGER) CK Total 72 30 - 200 Units/L [facility] CK-MB 2.0 0.0 - 6.6 ng/mL [facility] Blood specimen (specimen) BLOOD SPECIMEN / Unknown 08/02/2016 10:25 AM SALES ACTIVITY MANAGER 08/02/2016 10:33 AM SALES ACTIVITY MANAGER Paula Cuevas MD LAB - CHEMISTRY LUIS ENRIQUE CELIS Performing Organization Address [facility] Co de Phone Number [address] [phone] * AMMONIA (08/02/2016 10:25 AM SALES ACTIVITY MANAGER) Only the most recent of4 resultswithin the time period is included. Ammonia 43 11 - 64 umol/L [facility] Blood specimen (specimen) BLOOD SPECIMEN / Unknown 08/02/2016 10:25 AM SALES ACTIVITY MANAGER 08/02/2016 10:33 AM SALES ACTIVITY MANAGER Paula Cuevas MD LAB - CHEMISTRY LUIS ENRIQUE CELIS Performing Organization Address [facility] Co de Phone Number [address] [phone] * CCL CATH LEFT HEART ARTERY GRAFT (07/30/2016 8:26 AM SALES ACTIVITY MANAGER) Anatomical Region Laterality Modality X-Ray Angiograph y Narrative 07/30/2016 9:22 AM SALES ACTIVITY MANAGER [facility] Cardiac Catheterization Procedure Note Patient: Robert Harrell Age: 60 y.o. Date of : 1955 Date of Admission: 07/30/16 Procedure Date: 07/30/16 FELLOW / COURT BAILIFF: Jaleel Trinidad MD; Jj Thomas MD ATTENDING PHYSICIAN: James Terrell MD PREVIOUS STRESS STUDIES WITHIN 6 MONTHS: Dobutamine stress echo on 06/19/16: No echocardiographic evidence of myocardial ischemia. DIAGNOSTIC APPROPRIATENESS CRITERIA: 66 HISTORY: Patient is a 60 y.o. male with history of HTN, DM, cirrhosis, asthma who is being evaluated for liver transplant. He is referred to the cardiac catheterization lab to delineate the coronary anatomy. ACCESS SITE(S): ?? right radial artery PROCEDURAL OVERVIEW: After obtaining informed consent and positioning the patient on the catheterization table, a timeout was performed to confirm the patient? s name, date of , and procedure. ??Sedation was initiated and the patient was prepped and draped using standard sterile technique. ??Lidocaine was used for local anesthesia over the access site, after which the vessel was accessed and a sheath was placed using the modified Seldinger technique. ??Access was uncomplicated. Intra-arterial verapamil and intravenous heparin were administered to minimize risk of radial artery spasm or occlusion. Coronary angiography was performed using 6Fr Garwood catheter. ??Left heart catheterization was performed using 6Fr Garwood catheter. At the conclusion of the procedure, hemostasis was achieved using a radial compression device after removal of all catheters, wires, and sheaths. ?? COMPLICATIONS: None HEMODYNAMIC FINDINGS: ?? LV: ??110/20 mmHg Aorta: ??110/60 mmHg ANGIOGRAPHY: ?i. ?Left main: LM is short. ??It trifurcates into LAD, LCx and ramus intermedius branches. ??TYhere is no angiographic evidence of disease in LM. ??ii. ?? LAD: LAD is large caliber and wraps around the apex. ??There is no angiographic evidence of disease. ??Diagonal branches are small. ??iii. ?? LCx: LCx has no angiographic evidence of disease. ??It gives off a single large OM branch which has no angiographic evidence of disease. ??iv. ?? RCA: RCA is dominant. ??There is no angiographic evidence of disease in RCA. ??It gives off an R-PDA and large caliber R-PLV branches which have no angiographic evidence of disease. ??v. ?Other angiography: Ramus intermedius: There is no angiographic evidence of disease in ramus. DOMINANCE: Right DIAGNOSTIC INTERPRETATIONS: 1. ??Angiographically normal coronary arteries. RECOMMENDATIONS AFTER DIAGNOSTIC CATHETERIZATION: ?? Modification of atherosclerotic risk factors. James Abo-Rhea, MD 07/30/2016 Dr. Terrell was present for the entirety of the described procedure. I was present for the entire procedure. James Terrell MD 07/30/2016/9:29 AM Procedure Note James Terrell MD - 02/14/2018 [facility] Cardiac Catheterization Procedure Note Patient: Robert Harrell Age: 60 y.o. Date of : 1955 Date of Admission: 07/30/16 Procedure Date: 07/30/16 FELLOW / COURT BAILIFF: Jaleel Trinidad MD; Jj Thomas MD ATTENDING PHYSICIAN: James Terrell MD PREVIOUS STRESS STUDIES WITHIN 6 MONTHS: Dobutamine stress echo on 06/19/16: No echocardiographic evidence of myocardial ischemia. DIAGNOSTIC APPROPRIATENESS CRITERIA: 66 HISTORY: Patient is a 60 y.o. male with history of HTN, DM, cirrhosis,asthma who is being evaluated for liver transplant. He is referred to thecardiac catheterization lab to delineate the coronary anatomy. ACCESS SITE(S): right radial artery PROCEDURAL OVERVIEW: After obtaining informed consent and positioning the patient on thecatheterization table, a timeout was performed to confirm the patient? sname, date of , and procedure. Sedation was initiated and thepatient was prepped and draped using standard sterile technique. Lidocaine was used for local anesthesia over theaccess site, after which the vessel was accessed and a sheath was placedusing the modified Seldinger technique. Access was uncomplicated.Intra-arterial verapamil and intravenous heparin were administered to minimize risk of radial artery spasm orocclusion. Coronary angiography was performed using 6Fr Garwood catheter.Left heart catheterization was performed using 6Fr Garwood catheter. At theconclusion of the procedure, hemostasis was achieved using a radial compression device after removal ofall catheters, wires, and sheaths. COMPLICATIONS: None HEMODYNAMIC FINDINGS: LV: 110/20 mmHg Aorta: 110/60 mmHg ANGIOGRAPHY: i. Left main: LM is short. It trifurcates into LAD, LCx and ramusintermedius branches. TYhere is no angiographic evidence of disease inLM. ii. LAD: LAD is large caliber and wraps around the apex. There is noangiographic evidence of disease. Diagonal branches are small. iii. LCx: LCx has no angiographic evidence of disease. It gives off asingle large OM branch which has no angiographic evidence of disease. iv. RCA: RCA is dominant. There is no angiographic evidence ofdisease in RCA. It gives off an R-PDA and large caliber R-PLV brancheswhich have no angiographic evidence of disease. v. Other angiography: Ramus intermedius: There is no angiographicevidence of disease in ramus. DOMINANCE: Right DIAGNOSTIC INTERPRETATIONS: 1. Angiographically normal coronary arteries. RECOMMENDATIONS AFTER DIAGNOSTIC CATHETERIZATION: Modification of atherosclerotic risk factors. James Terrell MD 07/30/2016 Dr. Terrell was present for the entirety of the described procedure. I was present for the entire procedure. James Terrell MD 07/30/2016/9:29 AM Jerrell Brown MD CARDIAC CISTERN ROOM WORKING SUPERVISOR RAD IANT * CT LIVER 3 PHASE W PELVIS (07/17/2016 10:49 AM SALES ACTIVITY MANAGER) Anatomical Region Laterality Modality Abdomen Other Impressions 07/17/2016 5:17 PM SALES ACTIVITY MANAGER IMPRESSION: 1. Arterially enhancing observation with washout in hepatic segment 8, measuring 1.3 x 1.3 x 1.1 cm, with threshold growth when compared to 12/30/2015, compatible with hepatocellular carcinoma (LR-5g). No new arterially enhancing lesions are identified. 2. Hepatic cirrhosis with sequela of portal hypertension. 3. Small right pleural effusion with adjacent compressive atelectasis. 4. Unchanged appearance of a diminutive main portal vein and proximal right and left branches with chronic thrombosis and cavernous transformation. 5. Small fat and fluid containing right inguinal hernia. Dictated by Wilber Hall MD (radiology therapist) This report was approved ??by Mele Hall ?? on 07/17/2016 5:09 PM . I, Dr. LESLY FERMIN M.D. have personally reviewed and interpreted this examination/study. This report was electronically signed by LESLY FERMIN M.D. ??on 07/17/2016 5:17 PM . Narrative 07/17/2016 5:17 PM SALES ACTIVITY MANAGER EXAMINATION: Computed tomography (CT) of the abdomen and pelvis with contrast HISTORY: Hepatic cirrhosis TECHNIQUE: CT of the abdomen was performed following the uneventful administration of 150 mL of Omnipaque 350 intravenous contrast according to a three-phase liver protocol. CT of the pelvis was also performed during the portal venous phase according to standard protocol. COMPARISON: Comparison is made with a study from 04/20/2016. FINDINGS: The aorta is atherosclerotic but normal in caliber. There is a small right pleural effusion with adjacent compressive atelectasis. The heart size is normal without pericardial effusion. The liver is shrunken and has a nodular surface, consistent with hepatic cirrhosis. An arterially enhancing observation in hepatic segment 7 (series 6, image 44) is unchanged from the prior exam, now measuring 1.3 cm AP by 1.3 cm TV by 1.1 cm CC. However, the observation is increased in size when compared to the exam from 12/30/2015 when it previously measured 0.7 cm AP by 0.8 cm TV by 0.4 cm CC. There is washout without evidence of pseudocapsule on the delayed phase. No new arterially enhancing observation is identified. The hepatic arterial anatomy is conventional. The main, proximal right, and left portal vein are diminutive with chronic nonocclusive thrombus and cavernous transformation at the raya hepatis, unchanged. The splenic vein and superior mesenteric vein remain patent without evidence of thrombi. Perigastric and perisplenic varices are again seen. There is a splenorenal shunt. The spleen is enlarged, measuring up to 18.4 cm. A peripheral wedge-shaped hypoattenuating region in the mid spleen is less pronounced than on the prior exam. Delayed enhancement of this lesion is again seen, and the lesion likely represents evolving infarct. The gallbladder is normal without evidence of wall thickening, pericholecystic fluid, or gallstones. The intrahepatic and extrahepatic bile ducts are nondilated. The pancreas and adrenal glands are normal. The kidneys enhance symmetrically. There is no evidence of renal calculus or hydronephrosis. Bilateral accessory renal arteries are seen. The distal esophagus and stomach appear normal. The visible portions of the small bowel and large bowel are normal in caliber without evidence of wall thickening or obstruction. No free intraperitoneal air is seen. No lymphadenopathy is identified. Multiple scattered subcentimeter retroperitoneal and mesenteric lymph nodes are identified. The urinary bladder is incompletely distended with fluid and appears normal. The prostate is partially calcified. There is no pelvic lymphadenopathy. Small volume pelvic ascites is identified. A small fat and fluid containing right inguinal hernia is seen. Bone windows demonstrate no suspicious lytic or blastic lesions. Chronic compression fractures of the L1 and L3 vertebral bodies are unchanged. Multilevel degenerative changes are seen in the spine. Procedure Note Lesly Fermin MD - 12/07/2017 EXAMINATION: Computed tomography (CT) of the abdomen and pelvis withcontrast HISTORY: Hepatic cirrhosis TECHNIQUE: CT of the abdomen was performed following the uneventfuladministration of 150 mL of Omnipaque 350 intravenous contrast accordingto a three-phase liver protocol. CT of the pelvis was also performedduring the portal venous phase according to standard protocol. COMPARISON: Comparison is made with a study from 04/20/2016. FINDINGS: The aorta is atherosclerotic but normal in caliber. There is a small right pleural effusion with adjacent compressiveatelectasis. The heart size is normal without pericardial effusion. The liver is shrunken and has a nodular surface, consistent with hepaticcirrhosis. An arterially enhancing observation in hepatic segment 7(series 6, image 44) is unchanged from the prior exam, now measuring 1.3cm AP by 1.3 cm TV by 1.1 cm CC. However, the observation is increased in size when compared to the examfrom 12/30/2015 when it previously measured 0.7 cm AP by 0.8 cm TV by 0.4cm CC. There is washout without evidence of pseudocapsule on the delayedphase. No new arterially enhancing observation is identified. The hepatic arterial anatomy is conventional. The main, proximal right,and left portal vein are diminutive with chronic nonocclusive thrombus andcavernous transformation at the raya hepatis, unchanged. The splenic veinand superior mesenteric vein remain patent without evidence of thrombi. Perigastric and perisplenicvarices are again seen. There is a splenorenal shunt. The spleen isenlarged, measuring up to 18.4 cm. A peripheral wedge-shapedhypoattenuating region in the mid spleen is less pronounced than on the prior exam. Delayed enhancement of this lesion isagain seen, and the lesion likely represents evolving infarct. The gallbladder is normal without evidence of wall thickening,pericholecystic fluid, or gallstones. The intrahepatic and extrahepaticbile ducts are nondilated. The pancreas and adrenal glands are normal. Thekidneys enhance symmetrically. There is no evidence of renal calculus or hydronephrosis. Bilateral accessory renalarteries are seen. The distal esophagus and stomach appear normal. The visible portions ofthe small bowel and large bowel are normal in caliber without evidence ofwall thickening or obstruction. No free intraperitoneal air is seen. Nolymphadenopathy is identified. Multiple scattered subcentimeter retroperitoneal and mesenteric lymphnodes are identified. The urinary bladder is incompletely distended with fluid and appearsnormal. The prostate is partially calcified. There is no pelviclymphadenopathy. Small volume pelvic ascites is identified. A small fatand fluid containing right inguinal hernia is seen. Bone windows demonstrate no suspicious lytic or blastic lesions. Chroniccompression fractures of the L1 and L3 vertebral bodies are unchanged.Multilevel degenerative changes are seen in the spine. IMPRESSION IMPRESSION: 1. Arterially enhancing observation with washout in hepatic segment 8,measuring 1.3 x 1.3 x 1.1 cm, with threshold growth when compared to12/30/2015, compatible with hepatocellular carcinoma (LR-5g). No newarterially enhancing lesions are identified. 2. Hepatic cirrhosis with sequela of portal hypertension. 3. Small right pleural effusion with adjacent compressive atelectasis. 4. Unchanged appearance of a diminutive main portal vein and proximalright and left branches with chronic thrombosis and cavernoustransformation. 5. Small fat and fluid containing right inguinal hernia. Dictated by Wilber Hall MD (radiology therapist) This report was approved by Mele Hall on 07/17/2016 5:09 PM . I, Dr. LESLY FERMIN M.D. have personally reviewed and interpreted thisexamination/study. This report was electronically signed by LESLY FERMIN M.D. on07/17/2016 5:17 PM . Ramon Morales MD CT ORDERABLES * ALPHA FETOPROTEIN + AFP-L3 (07/09/2016 9:35 AM CDT) Alpha-Fetoprotein 2.1 1.6 - 4.5 ng/mL [facility]) Ysaxl-Hxwiklptpve-L 3 SEE NOTE 0.5 - 9.9 % [facility]) Comment: ?? NO VALUE DETERMINED The micro-total analysis system ([employer]) employs microchip capillary electrophoresis to quantitatively measure AFP and AFP-L3% by immunochemical techniques. The assay principle involves DNA-coupled antibodies and dye labeled antibodies, which react with proteins in liquid phase within the microchannels. Both analytes are quantified using laser-induced fluorescence. Instrument and associated reagents are supplied by [employer] [place], [place], [place]. Patients with elevated AFP-L3% values (>=10%) have been shown to have an increased risk of developing hepatocellular carcinoma (HCC). In a selected group of patients, the risk of developing HCC was 48.8% with an elevated AFP-L3% and was 7.0% with a negative AFP-L3% result. Limitations of Procedure: 1. The AFP-L3% value is not calculated when the AFP-L3 concentration is below 0.3 ng/mL. In such cases the AFP-L3% result field will indicate NO VALUE DETERMINED 2. Heterophilic antibodies in human serum can react with the immunoglobulins included in the assay components causing interference with in vitro immunoassays. Samples from patients routinely exposed to animals or animal serum products can demonstrate this type of interference and can potentially cause an anomalous result. The [employer] System has been formulated to minimize the risk of the interference; however, potential interactions between rare sera and ingredients can occur. 3. For diagnostic purposes, the results obtained from this assay should always be used and interpreted in conjunction with clinical examination, patient medical history, and other findings. 4. can cause high values of AFP-L3% and AFP is not interpretable in females. 5. AFP producing tumors other than HCC can show high values of AFP-L3% and AFP. 6. Samples from patients having acute hepatitis and fulminant hepatitis can show high values of AFP-L3% and AFP. 7. It is recommended that this assay be used in conjunction with imaging studies for clinical diagnosis. 8. Liver diseases caused by other etiologies such as alcoholic liver disease, hemachromatosis, Lion's disease, autoimmune hepatitis and steatohepatisis have not been studied with the assay. 9. The assay is linear for AFP concentration of 0.3 to 1000 ng/mL. 10. Values obtained with different assay methods or kits cannot be used interchangeably. REPORT COMMENT: IS PATIENT ON HEPARIN, ARGATROBAN OR DABIGATRAN?->N Test Performed at: [facility] [place] [address] [place], [place] ??[id number] REBECCA CHRISTIANSEN MD PHD Blood specimen (specimen) BLOOD SPECIMEN / Unknown 07/09/2016 9:35 AM CDT 07/09/2016 9:36 AM CDT Ramon Morales MD LAB - CHEMISTRY LUIS ENRIQUE CEILS [facility]) * (ABNORMAL) BLOOD GASES ART - PFT (06/19/2016 11:15 AM CDT) pH Arterial 7.43 7.35 - 7.45 [facility] pCO2 Arterial 36 35 - 45 mmHg [facility] pO2 Arterial 77 71 - 95 mmHg [facility] HCO3 Arterial 23.7 22.0 - 26.0 mmol/L [facility] TCO2 Arterial 24.8(L) 25.0 - 29.0 mmol/L [facility] Base Excess Arterial 0.2 -2.0 - 2.0 mmol/L [facility] Hemoglobin Arterial 12.8(L) 13.5 - 17.5 g/dL [facility] Oxyhemoglobin Arterial 95.8 95.0 - 100.0 % [facility] Carboxyhemoglobin 2.2 0.0 - 3.0 % [facility] Methemoglobin 0.0 0.0 - 2.0 % [facility] FI O2 Arterial 20.9 % [facility] Blood specimen (specimen) ARTERY SPECIMEN / Unknown 06/19/2016 11:15 AM CDT 06/19/2016 11:46 AM CDT Narrative [facility] - 06/19/2016 11:47 AM CDT Room air (21%)->Yes FiO2->20.9 Liters/minute->0 Tino Santiago MD LAB - BLOOD GASES OR DERABLES [address] [phone] * MITOCHONDRIAL ANTIBODY SCREEN (06/19/2016 7:19 AM CDT) Only the most recent of2 resultswithin the time period is included. Mitochondrial M2 Antibody 12.1 0.0 - 20.0 Units [facility] Comment: Mitochondrial M2 Antibody Numeric Result Interpretation: ?<20.1 Units: ??Negative ?20.1 - 24.9 Units: ??Equivocal ?>24.9 Units: ??Positive ? Blood specimen (specimen) BLOOD SPECIMEN / Unknown 06/19/2016 7:19 AM CDT 06/19/2016 8:14 AM CDT Jerrell Brown MD LAB - CHEMISTRY LUIS ENRIQUE CELIS Performing Organization Address [facility]/ZIP Co de Phone Number [address] [phone] * (ABNORMAL) HEPATITIS A ANTIBODY (06/19/2016 7:19 AM CDT) Hepatitis A Virus Antibody Total Positive(A ) Negative [facility] ([place]) Blood specimen (specimen) 06/19/2016 7:19 AM CDT 06/19/2016 8:40 AM CDT Narrative [facility] ([facility]) - 06/20/2016 6:16 AM CDT Performed at: ??01 - [facility] [address] ??[id number] Insurance Claims Analyst: Tio Segal PhD, Phone: ??[phone] Jerrell Brown MD LAB - CHEMISTRY LUIS ENRIQUE CELIS [facility] ([place]) * [id number] BLOOD PHENOTYPING PANEL (03/26/2016 8:53 AM CDT) Pubpd-9-Zeuydrroe in Phenotype SEE NOTE [facility] ([facility]) Comment: THIS PATIENT'S UFKRY-5-[id number] 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 90% of normal individuals have the MM phenotype, with normal quantitative AAT levels. Many phenotypic patterns have been described, including deficiency states with F, S, Z, or other alleles. As a general estimation, compared to M allele of 100% of normal Q-6-Vrlsitocnxo protein, the S allele produces approximately 60% and the Z allele 20%. For example, an MS phenotype would have about 80% of normal G-8-Ylbhgrjivxy protein level, a 50% contribution from the M allele and 30% from the S allele. A ZZ phenotype would have about 20% of normal levels, a 10% contribution from each Z gene. The F allele has normal H-3-Rkwjecpxwye levels, but the kinetics of elastase inhibition is not as efficient as an M allele product; F alleles should be considered functionally mildly deficient. Other variants are identifiable by phenotypic analysis. These include CM, DP, EM, GM, IS, LM, M1M2, M3M3, MP, MT, XX, MY, and M1N. I, P, T and null alleles are considered deleterious. C, D, E, G, L, M1, M2, M3, X and Y alleles are generally considered normal variants. The MZ-Scott phenotype is a normal variant; care should be taken to avoid confusion with the deficient MZ phenotype. REPORT COMMENT: FASTING:YES Test Performed at: [facility] [address] [place], [place] ??[id number] REBECCA CHRISTIANSEN MD PHD 03/26/2016 8:53 AM CDT 03/26/2016 8:53 AM CDT Ramon Morales MD LAB - CHEMISTRY LUIS ENRIQUE CELIS [facility] ([facility]) * (ABNORMAL) COPPER URINE (09/15/2015 1:16 PM SALES ACTIVITY MANAGER) Copper Urine 13 Not Estab. ug/L [facility] ([employer]) Comment:Detection Limit = 1 Creatinine Urine 0.73 0.30 - 3.00 g/L [facility] ([employer]) Comment:Detection Limit = 0. 10 Copper/Creatini ne Ratio 18 0 - 49 ug/g creat [facility] ([facility]) Copper 24 Hour Urine 0(L) 3 - 35 ug/24 hr [facility] ([facility]) Urine specimen (specimen) (Urine, unspecified source) 09/15/2015 1:16 PM SALES ACTIVITY MANAGER 09/15/2015 2:04 PM SALES ACTIVITY MANAGER Narrative [facility] ([facility]) - 09/20/2015 6:14 AM SALES ACTIVITY MANAGER 24 Hour Urine for Copper. Performed at: ??01 - [address] ??[id number] Insurance Claims Analyst: Peter Treadwell MD, Phone: ??[phone] Naomi You MD LAB - URINE CHEMISTR Y ORDERABLES Performing Organization Address City/[facility]/ZIP Co de Phone Number [facility] ([facility]) * (ABNORMAL) COPPER BLOOD (09/15/2015 12:02 AM SALES ACTIVITY MANAGER) Copper 53(L) 72 - 166 ug/dL [facility] ([facility]) Comment:Detection Limit = 5 Blood specimen (specimen) BLOOD SPECIMEN / Unknown 09/15/2015 12:02 AM SALES ACTIVITY MANAGER 09/15/2015 12:06 AM SALES ACTIVITY MANAGER Narrative [facility] ([facility]) - 09/17/2015 6:14 AM SALES ACTIVITY MANAGER Performed at: ??01 - [address] ??[id number] Insurance Claims Analyst: Peter Treadwell MD, Phone: ??[phone] Naomi You MD LAB - CHEMISTRY ORDE RABLES [facility] ([facility]) * CORTISOL BLOOD AM (09/14/2015 4:58 AM SALES ACTIVITY MANAGER) Cortisol AM 6.5 3.7 - 19.4 mcg/dL [facility] Blood specimen (specimen) BLOOD SPECIMEN / Unknown 09/14/2015 4:58 AM SALES ACTIVITY MANAGER 09/14/2015 5:04 AM SALES ACTIVITY MANAGER Naomi You MD LAB - CHEMISTRY LUIS ENRIQUE CELIS [address] [phone] * HEPATITIS B VIRUS DNA QUANT PCR (09/14/2015 12:14 AM SALES ACTIVITY MANAGER) Hepatitis B Virus IU/mL Comment IU/mL [facility] Comment:HBV DNA not detected Hepatitis B Virus DNA (Log IU/mL) TNP qkg13MJ/mL [facility] Comment: Unable to calculate result since non-numeric result obtained for component test. Test Information Comment [facility] Comment:The reportable range for this assay is 20 to 170,000,000 IU/mL 09/14/2015 12:1 4 AM SALES ACTIVITY MANAGER 09/14/2015 12:23 AM SALES ACTIVITY MANAGER Narrative [facility]) - 09/17/2015 5:08 PM SALES ACTIVITY MANAGER Performed at: ??01 - [address] ??[id number] Insurance Claims Analyst: Peter Treadwell MD, Phone: ??[phone] Naomi You MD LAB - SEROLOGY ORDER MAYRA Performing Organization Address City/[facility]/ZIP Co de Phone Number [facility] * HEMOCHROMATOSIS MUTATION PANEL (09/14/2015 12:14 AM SALES ACTIVITY MANAGER) Pathologist [facility] Hemochromatosis Genotype Specimen: 3 ml Peripheral Blood Reference: [id number] Test: Hemochromatosis Genotyping RESULT Hemochromatosis Genotyping C282Y Wild[place]: ?Detected Mutant Allele: ? Not Detected Patient Result: ? wt/wt Reference Range: ? wt/wt H63D [place]: ?Detected Mutant Allele: ? Not Detected Patient Result: ? wt/wt Reference Range: ? wt/wt Composite Genotype: ?Normal (neither mutation detected) Neither the C282Y nor the H63D mutation was detected in this patient. ??This patient, therefore lacks these mutations of HFE associated with Hereditary Hemochromatosis. INTERPRETATION DNA was isolated from the specimen and analyzed by a PCR-amplification refractory mutation system (Prema Alexander et al: J Clin Pathol 51:73-74) to detect the G to A and C to G changes at nucleotide position 845 (845G>A) and 187 (187C>G) of the HFE gene, respectively. ??These alterations result in a Cysteine to Tyrosine change at position 282 (C282Y) and a Histidine to Aspartic Acid at amino acid 63 (H63D). The C282Y mutation was not detected. The H63D mutation was not detected. This test was developed and its performance characteristics determined by the [facility] at [facility]. It has not been cleared or approved by the U.S. Food and Drug Administration. The FDA has determined that such clearance or approval is not necessary. This test is used for clinical purposes. It should not be regarded as investigational or for research. This laboratory is certified under the Clinical Laboratory Improvement Amendments of 1988 (CLIA-88) as qualified to perform high complexity clinical laboratory testing. Test performed at [facility], [address] [place] [address] ??[id number] This case has been personally reviewed and interpreted by the attending (teaching) pathologist. Final Diagnosis performed by Evelyn Santamaria MD. Electronically signed 09/15/2015 [facility] ([place]) Blood specimen (specimen) BLOOD SPECIMEN / Unknown 09/14/2015 12:14 AM SALES ACTIVITY MANAGER 09/14/2015 12:21 AM SALES ACTIVITY MANAGER Naomi You MD LAB - CHEMISTRY LUIS ENRIQUE CELIS [facility] ([place]) * (ABNORMAL) CERULOPLASMIN (09/14/2015 12:14 AM SALES ACTIVITY MANAGER) Ceruloplasmin 16(L) 20 - 60 mg/dL [facility] Blood specimen (specimen) BLOOD SPECIMEN / Unknown 09/14/2015 12:14 AM SALES ACTIVITY MANAGER 09/14/2015 12:23 AM SALES ACTIVITY MANAGER Naomi You MD LAB - CHEMISTRY LUIS ENRIQUE CELIS Performing Organization Address [facility]/ZIP Co de Phone Number [address] [phone] * VKGWT-3-DSRSTXQAJCM BLOOD (09/14/2015 12:14 AM SALES ACTIVITY MANAGER) Only the most recent of2 resultswithin the time period is included. Lzkco-0-Efvall ypsin 119 90 - 200 mg/dL [facility] Blood specimen (specimen) BLOOD SPECIMEN / Unknown 09/14/2015 12:14 AM SALES ACTIVITY MANAGER 09/14/2015 12:23 AM SALES ACTIVITY MANAGER Naomi You MD LAB - CHEMISTRY LUIS ENRIQUE CELIS Performing Organization Address [facility] Co de Phone Number [address] [phone] * IRON BLOOD (09/14/2015 12:14 AM SALES ACTIVITY MANAGER) Iron 92 50 - 175 mcg/dL [facility] Blood specimen (specimen) BLOOD SPECIMEN / Unknown 09/14/2015 12:14 AM SALES ACTIVITY MANAGER 09/14/2015 12:23 AM SALES ACTIVITY MANAGER Naomi You MD LAB - CHEMISTRY LUIS ENRIQUE CELIS Performing Organization Address [facility] [place] [address], [facility] [phone] * OSMOLALITY URINE (09/12/2015 4:50 PM SALES ACTIVITY MANAGER) Only the most recent of2 resultswithin the time period is included. Osmolality Urine 693 500 - 800 mOsm/kg [facility] Urine specimen (specimen) URINE SPECIMEN OBTAINED BY CLEAN CATCH PROCEDURE / Unknown 09/12/2015 4:50 PM SALES ACTIVITY MANAGER 09/12/2015 4:58 PM SALES ACTIVITY MANAGER Duran Wilhelm MD LAB - URINE CHEMISTR Y ORDERABLES Performing Organization Address [facility]/ZIP Co de Phone Number [address] [phone] * URIC ACID BLOOD (09/12/2015 1:35 PM SALES ACTIVITY MANAGER) Uric Acid 4.3 2.6 - 7.2 mg/dL [facility] Blood specimen (specimen) BLOOD SPECIMEN / Unknown 09/12/2015 1:35 PM SALES ACTIVITY MANAGER 09/12/2015 1:51 PM SALES ACTIVITY MANAGER Duran Wilhelm MD LAB - CHEMISTRY LUIS ENRIQUE CELIS Performing Organization Address [facility] Co de Phone Number [address] [phone] * CORTISOL BLOOD PM (09/12/2015 1:35 PM SALES ACTIVITY MANAGER) Cortisol PM 11.4 2.9 - 17.3 mcg/dL [facility] Blood specimen (specimen) BLOOD SPECIMEN / Unknown 09/12/2015 1:35 PM SALES ACTIVITY MANAGER 09/12/2015 3:00 PM SALES ACTIVITY MANAGER Naomi You MD LAB - CHEMISTRY LUIS ENRIQUE CELIS Performing Organization Address [facility] Co de Phone Number [address] [phone] * US ABDOMEN LIMITED (09/12/2015 12:12 PM SALES ACTIVITY MANAGER) Anatomical Region Laterality Modality Abdomen Other Impressions 09/13/2015 3:01 PM SALES ACTIVITY MANAGER IMPRESSION: 1. Hepatic cirrhosis. No discrete hepatic lesion. 2. Patent visualized segments of the main portal vein and the right portal vein. Nonvisualization of left portal vein. 3. Gallbladder sludge with trace pericholecystic fluid and minimal gallbladder wall thickening. Gallbladder wall thickening is nonspecific finding and could relate to underlying liver disease. 4. Splenomegaly. This report has been dictated by Jessica Piedra M.D. (Resident). This report was approved ??by Jessica Piedra ?? on 09/12/2015 2:40 PM . I, Dr. WALTER BACA M.D. have personally reviewed and interpreted this examination/study. This report was electronically signed by WALTER BACA M.D. ??on 09/12/2015 5:47 PM . Narrative 09/13/2015 3:01 PM SALES ACTIVITY MANAGER EXAMINATION: 1. Limited abdominal sonogram 2. Color and spectral Doppler evaluation of the hepatic vasculature HISTORY: 60-year-old male with cirrhosis and abdominal pain. COMPARISON: No prior sonograms available for comparison. The outside hospital CT abdomen and pelvis with contrast dated 09/10/2015 was reviewed. FINDINGS: Abdomen: The liver is shrunken and demonstrates coarse echotexture and surface nodularity, consistent with cirrhosis. No discrete hepatic mass or intrahepatic biliary dilation is seen. Sludge is seen within the gallbladder lumen. No gallstones are identified. There is trace pericholecystic fluid. The gallbladder wall is minimally thickened, measuring 4-5 mm. Sonographic Cervantes's sign cannot be assessed due to the patient's altered mental status. The visualized common bile duct is nondilated, measuring 4 mm. The right kidney measures 9.6 cm in length. Limited views of the right kidney reveal no evidence of nephrolithiasis or hydronephrosis. The spleen measures 20.1 cm in length, markedly enlarged. The pancreas is obscured by bowel gas. No ascites is present. Liver Doppler: Color and spectral Doppler evaluation demonstrates patency of the hepatic veins with appropriate flow direction and multiphasic waveforms. The main and right portal veins appear patent with normal hepatopetal flow. The main portal vein demonstrates a normal phasic waveform and decreased velocity measures 13.0 cm/s. The right portal vein demonstrates a normal phasic waveform and velocity measuring 17.9 cm/s. The left portal vein is not visualized. The proper hepatic artery is patent and demonstrates a normal arterial waveform with brisk systolic upstroke and antegrade flow. Resistive index in the proper hepatic artery measures 0.66. Procedure Note Walter Baca MD - 12/07/2017 EXAMINATION: 1. Limited abdominal sonogram 2. Color and spectral Doppler evaluation of the hepatic vasculature HISTORY: 60-year-old male with cirrhosis and abdominal pain. COMPARISON: No prior sonograms available for comparison. The outsidehospital CT abdomen and pelvis with contrast dated 09/10/2015 wasreviewed. FINDINGS: Abdomen: The liver is shrunken and demonstrates coarse echotexture and surfacenodularity, consistent with cirrhosis. No discrete hepatic mass orintrahepatic biliary dilation is seen. Sludge is seen within the gallbladder lumen. No gallstones are identified.There is trace pericholecystic fluid. The gallbladder wall is minimallythickened, measuring 4-5 mm. Sonographic Cervantes's sign cannot be assesseddue to the patient's altered mental status. The visualized common bile duct is nondilated, measuring 4mm. The right kidney measures 9.6 cm in length. Limited views of the rightkidney reveal no evidence of nephrolithiasis or hydronephrosis. The spleen measures 20.1 cm in length, markedly enlarged. The pancreas isobscured by bowel gas. No ascites is present. Liver Doppler: Color and spectral Doppler evaluation demonstrates patency of the hepaticveins with appropriate flow direction and multiphasic waveforms. The main and right portal veins appear patent with normal hepatopetalflow. The main portal vein demonstrates a normal phasic waveform anddecreased velocity measures 13.0 cm/s. The right portal vein demonstratesa normal phasic waveform and velocity measuring 17.9 cm/s. The left portal vein is not visualized. The proper hepatic artery is patent and demonstrates a normal arterialwaveform with brisk systolic upstroke and antegrade flow. Resistive indexin the proper hepatic artery measures 0.66. IMPRESSION IMPRESSION: 1. Hepatic cirrhosis. No discrete hepatic lesion. 2. Patent visualized segments of the main portal vein and the right portalvein. Nonvisualization of left portal vein. 3. Gallbladder sludge with trace pericholecystic fluid and minimalgallbladder wall thickening. Gallbladder wall thickening is nonspecificfinding and could relate to underlying liver disease. 4. Splenomegaly. This report has been dictated by Jessica Piedra M.D. (Resident). This report was approved by Jessica Piedra on 09/12/2015 2:40 PM . I, Dr. WALTER BACA M.D. have personally reviewed and interpreted thisexamination/study. This report was electronically signed by WALTER BACA M.D. on 09/12/20155:47 PM . Scott Lee MD US ORDERABLES * (ABNORMAL) OSMOLALITY BLOOD (09/11/2015 11:45 PM SALES ACTIVITY MANAGER) Only the most recent of2 resultswithin the time period is included. Osmolality 269(L) 270 - 300 mOsm/kg [facility] Blood specimen (specimen) BLOOD SPECIMEN / Unknown 09/11/2015 11:45 PM SALES ACTIVITY MANAGER 09/12/2015 12:11 AM SALES ACTIVITY MANAGER Scott Lee MD LAB - CHEMISTRY ORDE RABLES Performing Organization Address City/[facility]/ZIP Co de Phone Number [address] [phone] * SODIUM URINE RANDOM (09/11/2015 9:47 PM SALES ACTIVITY MANAGER) Sodium Urine 49 Not Established mmol/L [facility] Urine specimen (specimen) URINE / Unknown 09/11/2015 9:47 PM SALES ACTIVITY MANAGER 09/11/2015 9:47 PM SALES ACTIVITY MANAGER Scott Lee MD LAB - URINE CHEMISTR Y ORDERABLES Performing Organization Address [facility] Co de Phone Number [address] [phone] * UREA NITROGEN URINE RANDOM (09/11/2015 9:47 PM SALES ACTIVITY MANAGER) Urea Nitrogen Random Urine 776 Not Established mg/dL [facility] Urine specimen (specimen) URINE / Unknown 09/11/2015 9:47 PM SALES ACTIVITY MANAGER 09/11/2015 9:47 PM SALES ACTIVITY MANAGER Scott Lee MD LAB - URINE CHEMISTR Y ORDERABLES Performing Organization Address [facility] Co de Phone Number [address] [phone] * CREATININE URINE RANDOM (09/11/2015 9:47 PM SALES ACTIVITY MANAGER) Creatinine Urine 131 Not Established mg/dL [facility] Comment:Result obtained by prema zepeda. Urine specimen (specimen) URINE / Unknown 09/11/2015 9:47 PM SALES ACTIVITY MANAGER 09/11/2015 9:47 PM SALES ACTIVITY MANAGER Scott Lee MD LAB - URINE CHEMISTR Y ORDERABLES Performing Organization Address [facility] de Phone Number [address] [phone] * CULTURE URINE (09/11/2015 9:37 PM SALES ACTIVITY MANAGER) Culture Urine No Growth of >=100 CFU/ml after 48 Hours [facility] Urine specimen (specimen) URINE / Unknown 09/11/2015 9:37 PM SALES ACTIVITY MANAGER 09/11/2015 9:46 PM SALES ACTIVITY MANAGER Narrative [facility] - 09/14/2015 11:59 AM SALES ACTIVITY MANAGER Specimen Type->Urine Scott Lee MD LAB - MICROBIOLOGY O RDERABLES Performing Organization Address [facility] de Phone Number [address] [phone] * (ABNORMAL) JARROD BLOOD SCREEN (09/11/2015 10:47 AM SALES ACTIVITY MANAGER) JARROD Positive(A ) None Detected [facility] Venous blood specimen (specimen) 09/11/2015 10:47 AM SALES ACTIVITY MANAGER 09/11/2015 10:52 AM SALES ACTIVITY MANAGER Scott Lee MD LAB - CHEMISTRY ORDE RABLES Performing Organization Address [facility] de Phone Number [address] [phone] * JARROD BLOOD SCREEN W/REFLEX TITER (09/11/2015 10:47 AM SALES ACTIVITY MANAGER) JARROD IFA Negative [facility]) Comment: ? Negative ?? <1:80 ? Borderline ??1:80 ? Positive ?? >1:80 Venous blood specimen (specimen) BLOOD SPECIMEN / Unknown 09/11/2015 10:47 AM SALES ACTIVITY MANAGER 09/12/2015 11:43 AM SALES ACTIVITY MANAGER Narrative [facility] ([place]) - 09/13/2015 5:11 PM SALES ACTIVITY MANAGER Performed at: ?? - Lab[address] ??[id number] Insurance Claims Analyst: Tio Segal PhD, Phone: ??[phone] Scott Lee MD LAB - CHEMISTRY ORDSherrill CELIS Performing Organization Address City/[facility] Co de Phone Number [facility] * SMOOTH MUSCLE ANTIBODY (09/11/2015 10:46 AM SALES ACTIVITY MANAGER) F-Actin Antibody IgG 17.9 0.0 - 19.9 Units [facility] Comment: F-Actin Antibody Numeric Result Interpretation: ?<20.0 Units: ??Negative ?20.0 - 30.0 Units: ??Weak Positive ?>30.0 Units: ??Moderate to Strong Positive ? Blood specimen (specimen) BLOOD SPECIMEN / Unknown 09/11/2015 10:46 AM SALES ACTIVITY MANAGER 09/11/2015 10:52 AM SALES ACTIVITY MANAGER Scott Lee MD LAB - SEROLOGY ORDER MAYRA Performing Organization Address [facility]/ZIP Co de Phone Number [address] [phone] * (ABNORMAL) HEPATITIS B SURFACE ANTIBODY (09/11/2015 10:46 AM SALES ACTIVITY MANAGER) Pathologist [facility] Hepatitis B Virus Surface Antibody Reactive( A) Non-react [facility] Comment: > 12 mIU/mL Hepatitis B surface Antibody (HBsAb). Reactive for HBsAb - individual is considered immune to Hepatitis B Virus infection. Hepatitis B Surface Antibody Quantitative 76.9(H) <8.0 mIU/mL [facility] Comment: Hepatitis B Surface Antibody Numeric Result Interpretation: ? Nonreactive: ?<8.0 mIU/mL ? Indeterminate: ??8.0 - 12.0 mIU/mL ? Reactive: ?>12.0 mIU/mL ? Blood specimen (specimen) BLOOD SPECIMEN / Unknown 09/11/2015 10:46 AM SALES ACTIVITY MANAGER 09/11/2015 10:52 AM SALES ACTIVITY MANAGER Scott Lee MD LAB - CHEMISTRY LUIS ENRIQUE CELIS Performing Organization Address [facility] Co de Phone Number [address] [phone] * HEPATITIS C ANTIBODY (09/11/2015 10:46 AM SALES ACTIVITY MANAGER) [facility] Hepatitis C Antibody Non-react [facility] Comment: Hepatitis C Antibody screen indicates no serologic evidence of past or current infection with Hepatitis C Virus. Patients with unexplained liver disease who are immunocompromised or suspected of having acute Hepatitis C infection may benefit from Nucleic Acid Test (ERUM) for Hepatitis C Viral RNA to confirm Hepatitis C status. Blood specimen (specimen) BLOOD SPECIMEN / Unknown 09/11/2015 10:46 AM SALES ACTIVITY MANAGER 09/11/2015 10:52 AM SALES ACTIVITY MANAGER Scott Lee MD LAB - CHEMISTRY LUIS ENRIQUE CELIS Performing Organization Address [facility] Co de Phone Number [address] [phone] * CULTURE BLOOD (09/11/2015 2:55 AM SALES ACTIVITY MANAGER) Only the most recent of2 resultswithin the time period is included. Culture Blood No Growth at 5 days [facility] Blood specimen (specimen) 09/11/2015 2:55 AM SALES ACTIVITY MANAGER 09/11/2015 3:00 AM SALES ACTIVITY MANAGER Narrative [facility] - 09/16/2015 3:15 AM SALES ACTIVITY MANAGER Draw 15 minutes after Culture 1 from a different site Scott Lee MD LAB - MICROBIOLOGY O RDERABLES [address] [phone] Care Teams Urologic Surgeon Relationship Specialty Start Date End Date Sharri Argueta DO [address] [address] PCP - General 10/23/20 Qi Story, RN Registered Nurse 10/28/20
== END 2024-09-28 10:26 | disposition home or self-care (01) ==
LOC: ANHSURGERY 10:26
PROVIDERS: PCP Family Medicine; Visit Provider Neurological Surgery
DX: G95.9 Disease of spinal cord, unspecified (principal); Z01.818 Encounter for other preprocedural examination
CPT/HCPCS: 81001

== ENCOUNTER 2024-10-06 13:00 | Outpatient (CLI) | payer MEDICARE, SELFPAY ==
--- OUTSIDE RECORDS SUMMARY | 2024-10-06 13:39 | XMS_ITS ---
Author Organization [facility] Address [address] 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 -start TAC oint BID PRN w wet wraps, instructions provided Multiple benign melanocytic nevi of upper extremity, lower extremity, and trunk 11/04/2020 Assessment & Plan (11/04/2020 12:01 PM HOT CAR OPERATOR): - None atypical or more concerning than others on exam today - Counseled on importance of daily sun protection, and monthly self skin exams - Reviewed ABCDEs of melanoma - Advised sun protective behaviors and regular sun screen use - Annual FBSE Lentigines 11/04/2020 Assessment & Plan (11/04/2020 12:01 PM HOT CAR OPERATOR): -Benign, reassurance Other specified dermatitis 11/04/2020 Seborrheic keratosis 11/04/2020 Neutropenia 10/28/2020 History of hepatocellular carcinoma 11/20/2018 Long-term use of immunosuppressant medication Benign essential HTN 08/28/2018 IPMN (intraductal papillary mucinous neoplasm) 0 05/23/2018 Fatty pancreas 05/08/2018 Right inguinal hernia 05/08/2018 Overview (05/08/2018): Indirect Diabetes mellitus type 2, uncontrolled 8 Pre-transplant evaluation for liver transplant 0 12/23/2017 Overview (12/23/2017): LISTED Diagnosis: BRADSHAW/HCC Referring Shucker: Andrew Alert: Will need renoportal at the [...] is the impression of this social media project manager that Robert Harrell has several positive factors for Liver transplant candidacy including knowledge of illness, sufficient insurance coverage, stable financial situation for post transplant needs, and no concerns regarding substance abuse. ?? SW concerns are patient's support system and discharge plan. ?? Plan:?? combination worker to provide supportive services as needed. Patient appears to be a reasonable candidate for transplant from a psychosocial perspective, pending: ?? - Post transplant arrangement forms are needed prior to being listed, with confirmation. ? Psychiatric Consult Recommended: No? Transplant Bottle Machine Operator:?? MIKY OVERTON?? RD: 24 Hour Recall/food frequency: eggs, chocolate milk, salad, spaghetti, hamburger, [place] - loaiza seared, mash potatoes, broccoli, corn cauliflower, apples, ham and northern irish, lettuce and tomato sandwich, Ramen noodles about [...] Transplant Date: 11/03/2017 Donor: Standard criteria donor [id number] CMV D-/R-, EBV D+/R+ Pre-Transplant Summary: ESLD [...] PCP Adjustments: Readmissions: Biopsies: Explant Liver, explant, [place] hepatectomy (A): - Cirrhosis (history of BRADSHAW) - Completely necrotic nodule in right lobe (4.0 cm) - Macroregenerative nodules, multifocal - Focal dysplasia (small and large cell changes) - Hepatocellular iron focally up to 4+ - No viable hepatocellular carcinoma identified Gallbladder, [place] hepatectomy (A): - Mild chronic cholecystitis Gallbladder, [...] cirrhosis. The PAS-D stain is negative for [id number] globules. The iron stain shows granular hepatocellular [...] from the prior study (LR 3).?? 2. Gziyln-nmplx-ndwgby venous anastomosis, with unchanged aneurysmal dilatation at [...] liver without washout (LR 3). 2. Patent dgahtn-fkwnu-nktjsz venous anastomosis, with unchanged aneurysmal dilatation of [...] recommended. Assessment & Plan (11/04/2020 12:01 PM HOT CAR OPERATOR): -discussed inc risk NMSC/MM - Reviewed ABCDEs [...] treatments are documented for this patient in Psychiatric. Treatments may have been administered in another [...]
--- OUTSIDE RECORDS SUMMARY | 2024-10-06 13:40 | XMS_ITS | Patient Health Summary ---
Author Organization [facility] Address [address] [place] [address] Care Team Providers Care Director Specialty Name Role Phone Sharri Argueta DO Primary Care Provider [phone] Qi Story RN Unavailable Unavailable Note from [facility],non-owned Affiliates and Associated Physician Practices is amultiple site organization consisting of ambulatory clinics and hospital sitesin [place], [place], [place] and [place]. This disclosure is being madepursuant to the Care Everywhere program and may not contain all information available regarding this patient. Last updated 18.[facility] Allergies * Cephalexin(Nausea and/or Vomiting,Other) -Low [...] and hyponatremia 09/12/2015 12/23/2017 Immunizations * Covid GROU.PS primary monovalent 12+ yr 0.3mL Purple cap(Given [...] Sexual Orientation Straight 07/31/2024 7: 47 PM DRILLER HAND Last Filed Vital Signs Vital Sign Reading Time Taken Comments Blood Pressure 137/83 07/21/2024 1:48 PM DRILLER HAND Pulse 74 07/21/2024 1:48 PM DRILLER HAND Temperature 36.4 ??C (97.5 ??F) 05/31/2023 1:01 PM CD T Respiratory Rate 18 07/21/2024 1:48 PM DRILLER HAND Oxygen Saturation 99% 07/21/2024 1:48 PM DRILLER HAND Inhaled Oxygen Concentration - - Weight 93.7 kg (206 lb 9.6 oz) 07/21/2024 1:48 P M DRILL[facility] Height 182.9 cm (6') 07/21/2024 1:48 PM DRILLER HAND Body Mass Index 28.02 07/21/2024 1:48 PM D[facility]LLER HAND Procedures * TACROLIMUS LEVEL(Performed 07/15/2024) Performed for [...] ABDOMEN MULTI PHASE W CONT(Performed 04/20/2016) * JUUDU-8-SDRWZGUXIFZ BLOOD PHENOTYPING PANEL(Performed 03/26/2016) * CBC W [...] HEPATITIS B CORE ANTIBODY TOTAL(Performed 09/14/2015) * ZSRLS-3-MJKOESDPIUK BLOOD(Performed 09/14/2015) * CERULOPLASMIN(Performed 09/14/2015) * BASIC [...] 09/11/2015) * HEPATITIS C ANTIBODY(Performed 09/11/2015) * IDMTR-0-PESGMVVLTEX BLOOD(Performed 09/11/2015) * GLUCOSE ACCUCHECK(Performed 09/11/2015) * [...] Results * TACROLIMUS LEVEL (07/15/2024 8:06 AM DRILLER HAND) Only the most recent of82 resultswithin the time period is included. Tacrolimus 6.2 mcg/L [facility] Comment: No definitive therapeutic or toxic ranges have been established. Optimal blood drug levels are influenced by type of transplant, patient response, time post- transplant, co-administration of other drugs, and drug formulation. The following trough range is a suggested guideline: 5.0-20.0 mcg/L. Test Performed at: [facility] [address] [place], [place] ??[phone] KAMAR ALEXANDRE MD Blood BLOOD SPECIMEN / Unknown 07/15/2024 8:06 AM D[facility]ER HAND 07/15/2024 8:07 AM DRILLER HAND Ramon Morales MD LAB - THERAPEUTIC DR NICK MONITORING ORDERABLES [facility] [address] [place] [address] * (ABNORMAL) CBC WITH DIFFERENTIAL (07/15/2024 8:06 AM DRILLER HAND) Only the most recent of132 resultswithin the [...] 0.6 % [facility] Comment: Test Performed at: [facility] [address] [place], [place] ??[phone] KAMAR ALEXANDRE MD Blood BLOOD SPECIMEN / Unknown 07/15/2024 8:06 AM D[facility]LLER HAND 07/15/2024 8:07 AM DRILLER HAND Ramon Morales MD LAB - HEMATOLOGY ORD ERABLES [facility] [address] [place] [address] * (ABNORMAL) COMPREHENSIVE METABOLIC PANEL (07/15/2024 8:06 AM DRILLER HAND) Only the most recent of51 resultswithin the [...] 46 U/L [facility] Comment: Test Performed at: [facility] [address] [place] [address] ??[phone] KAMAR ALEXANDRE MD Blood BLOOD SPECIMEN / Unknown 07/15/2024 8:06 AM DRILLER HAND 07/15/2024 8:07 AM DRILLER HAND Ramon Morales MD LAB - CHEMISTRY LUIS ENRIQUE CELIS Performing Organization Address City/[facility]/ZIP Co de Phone Number [facility] [address] [place] [address] * (ABNORMAL) DIFFERENTIAL MANUAL REFLXED III (02/12/2024 [...] perform a manual review. Test Performed at: [facility] [address] [place], [place] ??[phone] KAMAR ALEXANDRE MD 02/12/2024 7:43 AM CDT 02/12/2024 7:43 AM CDT Ramon Morales MD LAB - HEMATOLOGY ORD ERATRINITY Performing Organization Address City/[facility]/ZIP Co de Phone Number [facility] [address] [place] [address] * MRI ABDOMEN W MRCP WWO CONT [...] IPMN. > Dictated by Reshma Hairston MD (resident services manager). I, Raymond Dean MD have personally reviewed and interpreted this examination/study. > Interpreting Provider: Raymond Dean MD on 12/06/2023 4:25 PM Narrative 12/06/2023 4:25 PM CDT EXAMINATION: MRI ABDOMEN W MRCP WWO CONT W3D DATE/TIME OF EXAM: ??12/06/2023 11:29 AM, LOCATION ??[facility] HISTORY: I10: Benign essential HTN Z94.4: S/P [...] DATE/TIME OF EXAM: 12/06/2023 11:29 AM, LOCATION [facility] HISTORY: I10: Benign essential HTN Z94.4: S/P [...] IPMN. > Dictated by Reshma Hairston MD (resident services manager). I, Raymond Dean MD have personally reviewed and interpreted this examination/study. > Interpreting Provider: Ryamond Dean MD on 12/06/2023 4:25 PM Ramon [...] LDL-C. Mick SS et al. BRODIE. 2013;310(19): 4586-3462 (http://education.Draftster/faq/WFS583) CHOL/HDLC RATIO 4.0 <5.0 (calc) [facility] Non HDL Cholesterol 126 <130 mg/dL (calc) [facility] Comment: For patients with diabetes plus 1 major ASCVD risk factor, treating to a non-HDL-C goal of <100 mg/dL (LDL-C of <70 mg/dL) is considered a therapeutic option. Test Performed at: [facility] [address] [place], [place] ??[phone] KAMAR ALEXANDRE MD 05/22/2023 8:07 AM CDT 05/22/2023 8:07 AM CDT Ramon Morales MD LAB - CHEMISTRY LUIS ENRIQUE CELIS [facility] Organization Address City/State/ZIP Co de Phone Number [facility] [address] [place] [address] * MRI ABDOMEN WWO CONTRAST (10/18/2022 10:40 AM DRILLER HAND) Only the most recent of10 resultswithin the time period is included. Anatomical Region Laterality Modality Abdomen Magnetic Resonan ce 10/18/2022 11:2 1 AM [facility] HAND Impressions 10/18/2022 11:36 AM DRILLER HAND Impression: 1.Redemonstrated postoperative changes from orthotopic liver [...] Report dictated by FADY ESPARZA MD, MD (resident services manager). > Interpreting Provider: FADY ESPARZA MD on 10/18/2022 11:36 AM Narrative 10/18/2022 11:36 AM D[facility]ER HAND PROCEDURE: ??MRI ABDOMEN WWO CONTRAST, DATE/TIME OF EXAM: ??10/18/2022 10:40 AM, LOCATION ??[facility] INDICATION: Z94.4: S/P liver transplant (CMS/HCC) Z79.60: [...] DATE/TIME OF EXAM: 10/18/2022 10:40 AM, LOCATION [facility] INDICATION: Z94.4: S/P liver transplant (CMS/HCC) Z79.60: [...] Report dictated by FADY ESPARZA MD, MD (resident services manager). > Interpreting Provider: FADY ESPARZA MD on 10/18/2022 11:36 AM Ramon Morales MD MR ORDERABLES * CT CHEST WO CONTRAST (10/18/2022 9:10 AM DRILLER HAND) Only the most recent of9 resultswithin the time period is included. Anatomical Region Laterality Modality Chest Computed Tomogra phy 10/18/2022 10:1 8 AM DRILLER HAND Impressions 10/18/2022 4:41 PM DRILLER HAND Impression: Unchanged bilateral nodules measuring up to 2 mm. > Dictated by Jose Anthony MD, MD (resident services manager). > Dictated by Jose Anthony MD ([employer]) 10/18/2022 2:09 PM Raymond Reyes MD have personally reviewed and interpreted this examination/study. > Interpreting Provider: Raymond Dean MD on 10/18/2022 4:41 PM Narrative 10/18/2022 4:41 PM D[facility]ER HAND PROCEDURE: ??CT CHEST WO CONTRAST, DATE/TIME OF EXAM: ??10/18/2022 9:10 AM, LOCATION ??[facility] INDICATION: Z94.4: S/P liver transplant (CMS/HCC) Z79.60: [...] DATE/TIME OF EXAM: 10/18/2022 9:10 AM, LOCATION [facility] INDICATION: Z94.4: S/P liver transplant (CMS/HCC) Z79.60: [...] > Dictated by Jose Anthony MD, MD (resident services manager). > Dictated by Jose Anthony MD ([employer]) 10/18/2022 2:09 PM I, Raymond Dean MD have personally reviewed and interpreted this examination/study. > Interpreting Provider: Raymond Dean MD on 10/18/2022 4:[address] Mor[address] MD [address] ORDERABLES * (ABNORMAL) PLATELET ESTIMATE REFLEXED (04/19/2022 7:55 AM CDT) Only the most recent of29 resultswithin the time period is included. Platelet Estimation DECREASED (A) ADEQUATE [facility] Comment: Test Performed at: [facility] [id number] [place] [address] ??[phone] PETER HOFFMANN DO,MPH 04/19/2022 7:55 AM CDT 04/19/2022 7:55 AM CDT Ramon Morales MD LAB - HEMATOLOGY ORD ERABLES [facility] [address] [place] [address] * CREATININE - POCT INTERFACED (10/17/2021 10:28 AM DRILLER HAND) Only the most recent of2 resultswithin the time period is included. Creatinine POCT 0.64 0.30 - 1.30 mg/dL 10/17/2021 10:30 AM DRILLER HAND [facility] eGFR >90 >90 mL/min/1.7 3 m2 10/17/2021 10:30 AM DRILLER HAND [facility] Blood BLOOD SPECIMEN / Unknown 10/17/2021 10:28 AM DRILLER HAND 10/17/2021 10:30 AM DRILLER HAND Ramon Morales MD LAB - POINT OF CARE ORDERABLES [facility] [address] [place] [address], [facility] [phone] * (ABNORMAL) BASIC METABOLIC PANEL (CALCIUM TOTAL) [...] approximately 13% higher for people identified as -Lithuanian. eGFR by MDRD 56(L) > OR = [...] 10.3 mg/dL [facility] Comment: Test Performed at: [facility] [address] [place], [place] ??[phone] PETER HOFFMANN DO,MPH Blood BLOOD SPECIMEN / Unknown 04/12/2021 7:54 AM CDT 04/12/2021 7:54 AM CDT Ramon Morales MD LAB - CHEMISTRY LUIS ENRIQUE CELIS Performing Organization Address [facility] de Phone Number [facility] [id number] [place] [address] * HEPATIC FUNCTION PANEL (04/12/2021 7:54 AM [...] 46 U/L [facility] Comment: Test Performed at: [facility] [place], [place] ??[phone] PETER HOFFMANN DO,MPH Blood BLOOD SPECIMEN / Unknown 04/12/2021 7:54 AM CDT 04/12/2021 7:54 AM CDT Ramon Morales MD LAB - CHEMISTRY LUIS ENRIQUE CELIS Performing Organization Address [facility] de Phone Number [facility] [address] [place] [address] * MAGNESIUM BLOOD (04/12/2021 7:54 AM CDT) Only the most recent of82 resultswithin the time period is included. Magnesium 1.9 1.5 - 2.5 mg/dL [facility] Comment: Test Performed at: [facility] [address] [place], [place] ??[phone] PETER HOFFMANN DO,MPH Blood BLOOD SPECIMEN / Unknown 04/12/2021 7:54 AM CDT 04/12/2021 7:54 AM CDT Ramon Morales MD LAB - CHEMISTRY LUIS ENRIQUE CELIS [facility] Organization Address City/State/ZIP Co de Phone Number [facility] [address] [place] [address] * BONE DENSITY AXIAL SKELETON(1OR MORE SITES)[id number] (11/16/2020 3:21 PM DRILLER HAND) Anatomical Region Laterality Modality Other 11/16/2020 5:01 PM DRILLER HAND Addenda Addendum by Jj Mancilla DO on 11/16/2020 5:27 PM DRILLER HAND ORIGINAL REPORT Examination: Dual energy x-ray absorptiometry [...] ordering physician and is also available on [employer], the Radiology Department's computerized picture archive system. [...] 5:24 PM . Narrative 11/16/2020 5:07 PM DRILLER HAND Examination: Dual energy x-ray absorptiometry of the [...] ordering physician and is also available on [employer], the Radiology Department's computerized picture archive system. [...] ordering physician and is also available on [employer], the Radiology Department's computerized picture archive system. [...] FACIAL BONES WO CONTRAST (11/16/2020 1:15 PM DRILLER HAND) Anatomical Region Laterality Modality Head Computed Tomogra phy 11/16/2020 1:18 PM DRILLER HAND Impressions 11/16/2020 8:11 PM DRILLER HAND IMPRESSION: 1.No acute intracranial hemorrhage, midline shift, [...] correlate clinically. Dictated by Mayur Victoria DO (osteopathic resident) Amy, Dr. RICO COLEMAN have personally reviewed and interpreted this examination/study. This report was electronically signed by RICO COLEMAN ??on 11/16/2020 8:11 PM . Narrative 11/16/2020 8:11 PM DRILLER HAND EXAMINATION: 1. CT OF THE HEAD WITHOUT [...] correlate clinically. Dictated by Mayur Victoria DO (osteopathic resident) I, Dr. RICO COLEMAN have personally reviewed and interpreted this examination/study. This report was electronically signed by RICO COLEMAN on 11/16/2020 8:11 PM . Teresa Connor CERTIFIED PHYSICIAN ASSISTANT-CUSTOM SHOEMAKER CT ORDERABLES * CT HEAD WO CONTRAST (11/16/2020 1:15 PM DRILLER HAND) Only the most recent of5 resultswithin the time period is included. Anatomical Region Laterality Modality Head Computed Tomogra phy 11/16/2020 1:18 PM DRILLER HAND Impressions 11/16/2020 8:11 PM DRILLER HAND IMPRESSION: 1.No acute intracranial hemorrhage, midline shift, [...] correlate clinically. Dictated by Mayur Victoria DO (osteopathic resident) I, Dr. RICO COLEMAN have personally reviewed and interpreted this examination/study. This report was electronically signed by RICO COLEMAN ??on 11/16/2020 8:11 PM . Narrative 11/16/2020 8:11 PM DRILLER HAND EXAMINATION: 1. CT OF THE HEAD WITHOUT [...] correlate clinically. Dictated by Mayur Victoria DO (osteopathic resident) I, Dr. RICO COLEMAN have personally reviewed and interpreted this examination/study. This report was electronically signed by RICO COLEMAN on 11/16/2020 8:11 PM . Teresa [address] CT ORDERABLES * Laceration Repair (11/16/2020 12:46 PM DRILLER HAND) Narrative Paula Cuevas MD - 11/16/2020 12:46 PM DRILLER HAND Teresa Connor APRN-CNP ? 11/16/2020 ??6:38 PM [...] ??Tolerated well, no immediate complications Teresa Connor CERTIFIED PHYSICIAN ASSISTANT-CUSTOM SHOEMAKER PROCEDURE/MINOR SURGICAL ORDERABLES * (ABNORMAL) CBC W/O DIFFERENTIAL (08/18/2020 8:22 AM DRILLER HAND) Only the most recent of22 resultswithin the time period is included. Pathologist [facility] White Blood Cell Count 3.6(L) 3.8 - [...] but greater than 30,000/uL. Test Performed at: [facility] [address] [place], [place] ??[phone] PETER HOFFMANN DO,MPH 08/18/2020 8:22 AM DRILLER HAND 08/18/2020 8:22 AM DRILLER HAND Ramon Morales MD LAB - HEMATOLOGY ORD ERABLES [facility] [address] [place] [address] * PATHOLOGY TISSUE (04/04/2020 10:08 AM CDT) Only the most recent of3 resultswithin the time period is included. Pathologist [facility] Case Report Surgical Pathology Report ? Case: [id number] ? Authorizing Provider: ??Ramon Morales MD ?Collected: ? 04/04/2020 10:08 AM ? Ordering Location: ? [facility] ?Received: ?04/04/2020 12:17 PM ? Pathologist: ? Gretchen Love MD ? Specimens: ?? A) - Large Intestine, Right/Ascending Colon, Ascending colon polyp ? B) - Rectum, Rectal polyp ? 04/05/2020 6:05 PM [facility] Final Diagnosis Large intestine, ascending colon polyp, biopsy (A): - Benign polypoid mucosa Large intestine, rectal polyp, biopsy (B): - Hyperplastic polyp 04/05/2020 6:05 PM [facility] Microscopic Description and Comment Microscopic examination substantiates the final diagnosis. 04/05/2020 6:05 PM [facility] Clinical History The patient is a 64 year old man who presented for colorectal cancer screening. Operative procedure/findings: Colonoscopy - 2 mm ascending colon polyp, resected and retrieved; 3 mm rectal polyp, resected and retrieved. 04/05/2020 6:05 PM [facility] Gross Description The requisition [...] cassette B1. KK 04/05/2020 6:05 PM CDT [facility] Disclaimer The performance characteristics of all immunohistochemical and indirect immunofluorescence stains (if any) cited in this report were determined by the Histopathology Laboratory of [facility]. Some of these tests were developed by [...] attending (teaching) pathologist. 04/05/2020 6:05 PM CDT [facility] Embedded Images 04/05/2020 6:05 PM CDT [facility] Biopsy, NOS (Large Intestine, Right/Ascending [...] Morales MD LAB - PATHOLOGY/CYTO LOGY ORDERABLES [facility] [address] [phone] * ENDOSCOPY, COLON, SCREENING (04/04/2020 9:37 AM [...] and ?oxygen saturations were monitored continuously. The ?[id number] was introduced through the anus and ?advanced to the cecum, identified by appendiceal ?orifice and ileocecal valve. The colonoscopy was ?performed without difficulty. The patient tolerated ?the procedure well. The quality of the bowel ?preparation was evaluated using the BBPS ([place] ?Bowel Preparation Scale) with scores of: Right [...] The polyp ? was removed with a Biovation Holdingso cold forceps. Resection and retrieval were ? [...] Procedure Code(s): ? --- Professional --- ? 59986, Colonoscopy, flexible; with removal of tumor(s), polyp(s), or ? other lesion(s) by snare technique ? 03619, 59, Colonoscopy, flexible; with biopsy, single or multiple Diagnosis Code(s): ?--- Professional --- ?Z12.11, Encounter for screening for malignant ?neoplasm of colon ?K63.5, Polyp of colon ?K62.1, Rectal polyp CPT copyright 2019 [employer]. All rights reserved. The codes documented in this report are preliminary and upon iron installer review may be revised to meet current compliance requirements. _ Ramon Morales MD 04/04/2020 10:34:35 AM This report has been signed electronically. Note Initiated On: 04/04/2020 9:37 AM Number of Addenda: 0 ? [facility] ? [address] at [address] 04/04/2020 9:37 AM CDT Elda Rashid MD GI PROCEDURE ORDERAB LES Performing Organization Address City/[facility]/ZIP Co de Phone Number [facility] * (ABNORMAL) GLUCOSE - POINT OF CARE (04/04/2020 9:07 AM CDT) Only the most recent of2 resultswithin the time period is included. [facility] Glucose WB/POC 139(H) 70 - 115 mg/dL 04/04/2020 12:37 PM CDT [facility] Specimen Type Arterial/C apillary 04/04/2020 12:37 PM CDT [facility] Blood BLOOD SPECIMEN / Unknown 04/04/2020 9:07 AM CDT 04/04/2020 12:37 PM CDT Ramon Morales MD LAB - POINT OF CARE ORDERABLES Performing Organization Address City/[facility]/ZIP Co de Phone Number [facility] [address] [place] [address], [facility] [phone] * (ABNORMAL) HEMOGLOBIN A1C (03/14/2020 8:46 AM CDT) Only the most recent of8 resultswithin the time period is included. [facility] Hemoglobin A1c 6.0(H) <5.7 % of total [...] of diabetes for children. Test Performed at: [facility] [place], [place] ??[address] PETER HOFFMANN DO,MPH 03/14/2020 8:46 AM CDT 03/14/2020 8:47 AM CDT Ramon Morales MD LAB - CHEMISTRY ORDE LALITA Performing Organization Address [facility] de Phone Number [facility] [address] [place] [address] * (ABNORMAL) PLATELET ESTIMATION (02/16/2019 8:10 AM CDT) [facility] Platelet Estimation DECREASED (A) ADEQUATE [facility] Comment: Test Performed at: [facility] [address] [place], [place] ??[address] PETER HOFFMANN DO,MPH 02/16/2019 8:10 AM CDT 02/16/2019 8:15 AM CDT Ramon Morales MD LAB - HEMATOLOGY ORD ERABLES Performing Organization Address [facility] Co de Phone Number [facility] [address] [place] [address] * ENDOSCOPY, COLON, SCREENING (12/08/2018 8:23 AM CDT) [facility] Report Endoscopy POC Endoscopy Department Report _ [...] malignant ?neoplasm of colon CPT copyright 2016 [employer]. All rights reserved. The codes documented in this report are preliminary and upon iron installer review may be revised to meet current compliance requirements. _ Ramon Morales MD 12/08/2018 9:39:14 AM This report has been signed electronically. Note Initiated On: 12/08/2018 8:23 AM Number of Addenda: 0 ? [facility] ? [address] [place] [address] [facility] 12/08/2018 8:23 AM CDT Ramon Morales MD GI PROCEDURE ORDERAB LES [facility] * PHOSPHORUS BLOOD (11/24/2018 8:24 AM CDT) Only the most recent of66 resultswithin the time period is included. Pathologist [facility] Phosphorus 3.4 2.5 - 4.5 mg/dL [facility] Comment: Test Performed at: [facility] [address] [place] [address] ??[phone] PETER HOFFMANN DO,MPH 11/24/2018 8:24 AM CDT 11/24/2018 8:24 AM CDT Ramon Morales MD LAB - CHEMISTRY ORDE RABLES Performing Organization Address [facility] Co de Phone Number [facility] [address] [place] [address] * SLIDE SCAN HEMATOLOGY (11/10/2018 8:37 AM DRILLER HAND) Only the most recent of2 resultswithin the time period is included. [facility] CBC Morphology NORMAL [facility] Comment: Ovalocytes 1 + Test Performed at: [facility] [address] ??[phone] PETER HOFFMANN DO,MPH 11/10/2018 8:37 AM DRILLER HAND 11/10/2018 8:37 AM DRILLER HAND Ramon Morales MD LAB - HEMATOLOGY ORD ERABLES Performing Organization Address [facility] de Phone Number [facility] [id number] [place] [address] * CYTOMEGALOVIRUS DNA RT PCR QUANT BLOOD (10/13/2018 8:22 AM DRILLER HAND) Only the most recent of8 resultswithin the time period is included. [facility] Source BLOOD [facility] Cytomegalovirus DNA Quantitative Real Time PCR <200 IU/mL [facility] Cytomegalovirus DNA Quantitative PCR <2.30 Log IU/mL [facility] Comment: REFERENCE [place]: CMV DNA, QN PCR: <200 IU/mL CMV DNA, QN PCR: <2.30 Log IU/mL This test was developed and its analytical performance characteristics have been determined by [facility]. It has not been cleared or approved by the U.S. Food and Drug Administration. This assay has been validated pursuant to the CLIA regulations and is used for clinical purposes. Test Performed at: [facility] [address] [place] [address] ??[phone] Zoltan DE SOUZA Blood BLOOD SPECIMEN / Unknown 10/13/2018 8:22 AM DRILLER HAND 10/13/2018 8:24 AM DRILLER HAND Ramon Morales MD LAB - CHEMISTRY LUIS ENRIQUE CELIS Performing Organization Address [facility] de Phone Number [facility] [address] [place] [address] * ALPHA FETOPROTEIN BLOOD TUMOR (07/07/2018 11:31 AM CDT) Only the most recent of9 resultswithin the time period is included. Pathologist [facility] Alpha-Fetoprotei n Tumor Marker 0.8 <6.1 ng/mL [facility] Comment: This test was performed using the [employer]akes chemiluminescent method. Values obtained from different assay methods cannot be used interchangeably. AFP levels, regardless of value, should not be interpreted as absolute evidence of the presence or absence of disease. Test Performed at: [facility] [address] [employer] [place], [place] ??[phone] PETER HOFFMANN DO,MPH 07/07/2018 11:3 1 AM CDT 07/07/2018 11:32 AM CDT Ramon Morales MD LAB - CHEMISTRY LUIS ENRIQUE CELIS Performing Organization Address [facility] de Phone Number [facility] [address] [place] [address] * TSH (04/14/2018 10:26 AM CDT) Only the most recent of2 resultswithin the time period is included. Pathologist [facility] TSH 1.43 0.40 - 4.50 mIU/L [facility] Comment: Test Performed at: [facility] [address] [place], [place] ??[phone] PETER HOFFMANN DO,MPH Blood BLOOD SPECIMEN / Unknown 04/14/2018 10:26 AM CDT 04/14/2018 10:27 AM CDT Sobeida Griffin CERTIFIED PHYSICIAN ASSISTANT-CUSTOM SHOEMAKER LAB - CHEMISTRY O RDERABLES Performing Organization Address City/[facility]/ZIP Co de Phone Number [facility] [address] [place] [address] * [employer]TOME[employer] DNA RT-PCR QUANT (03/03/2018 10:05 [...] ?* * storage. ?* Test Performed at: [facility] [address] [place] [address] ??[id number] Zoltan DE SOUZA Microbiology BLOOD SPECIMEN / Unknown 03/03/2018 10:05 AM CDT 03/03/2018 10:06 AM CDT Sobeida Griffin CERTIFIED PHYSICIAN ASSISTANT-CUSTOM SHOEMAKER LAB - MICROBIOLOG Y ORDERABLES [facility] [address] [place] [address] * CT ABDOMEN MULTI PHASE W CONT [...] follow-up recommended. Dictated by Ramon Sandoval MD (resident services manager). I, Dr. ISREAL CORTÉS M.D. have personally reviewed and interpreted [...] follow-up recommended. Dictated by Ramon Sandoval MD (resident services manager). I, Dr. ISRAEL CORTÉS M.D. have personally [...] * (ABNORMAL) GLUCOSE ACCUCHECK (11/14/2017 11:15 AM DRILLER HAND) Only the most recent of129 resultswithin the time period is included. Glucose, Fingerstick 262(H) 70-115mg/d L mg/dL [facility] ([facility]IN) Comment:Product Safety And Standards Engineer: KALI T ERRY 11/14/2017 11:1 5 AM DRILLER HAND Janae Diaz MD LAB - CHEMISTRY LUIS ENRIQUE CELIS [facility]) * XR ABDOMEN KUB PORTABLE (11/09/2017 6:39 AM DRILLER HAND) Only the most recent of5 resultswithin the time period is included. Anatomical Region Laterality Modality Other Impressions 11/09/2017 2:35 PM DRILLER HAND IMPRESSION: There are multiple mildly dilated small bowel loops measuring up to 4.9 cm in diameter which could represent ileus or obstruction, not significantly changed. The supine radiographs are technically suboptimal for evaluation of pneumoperitoneum. Postsurgical changes of kyphoplasty/vertebroplasty are present inferior lumbar vertebral bodies. Degenerative changes are noted in the spine. Skin staple lines projects over the [id number]-oriz. Report dictated by Jenni An MD (resident services manager). I, Dr. DASHAWN SUE MD have personally reviewed and interpreted this examination/study. This report was electronically signed by DASHAWN SUE MD ??on 11/09/2017 2:35 PM . Narrative 11/09/2017 2:35 PM DRILLER HAND EXAMINATION: PX ABDOMEN 1 VW HISTORY: Ileus [...] the spine. Skinstaple lines projects over the [id number]. Report dictated by Jenni An MD (resident services manager). I, DrGeronimo SUE MD have personally reviewed and interpreted thisexamination/study. This report was electronically signed by DASHAWN SUE MD on 11/09/20172:35 PM . Janae Diaz MD DIAGNOSTIC IMAGING O RDERABLES * (ABNORMAL) PTT [facility] (11/08/2017 2:22 PM DRILLER HAND) Only the most recent of14 resultswithin the time period is included. APTT 20.3(L) 23.0 - 38.4 Seconds [facility] Comment:Suggested therapeuti c range for full dose I.V. heparin therapy for venous thromboembolism is 66.0-91.0 seconds. Blood specimen (specimen) BLOOD SPECIMEN / Unknown 11/08/2017 2:22 PM DRILLER HAND 11/08/2017 2:58 PM DRILLER HAND Narrative [facility] - 11/08/2017 3:37 PM DRILLER HAND Please ensure that the aPTT specimen is received in the clinical lab within 1 hour of collection if it is used for therapeutic heparin monitoring. Processing of heparinized specimens older than 1 hour may result in inaccurate test results. Is patient on Heparin, Argatroban or Dabigatran?->N Janae Diaz MD LAB - COAGULATION OR DERABLES Performing Organization Address [facility] Co de Phone Number [address] [phone] * CARDIOLIPIN ANTIBODY IGA (11/08/2017 2:22 PM DRILLER HAND) Anticardiolipin Antibody IgA <15.0 <15.0 APL [facility] Blood specimen (specimen) BLOOD SPECIMEN / Unknown 11/08/2017 2:22 PM DRILLER HAND 11/08/2017 2:58 PM DRILLER HAND Janae Diaz MD LAB - SEROLOGY ORDER MAYRA Performing Organization Address [facility] Co de Phone Number [address] [phone] * CARDIOLIPIN ANTIBODY IGM (11/08/2017 2:22 PM DRILLER HAND) Anticardiolipin Antibody IgM <15.0 <15.0 MPL [facility] Blood specimen (specimen) BLOOD SPECIMEN / Unknown 11/08/2017 2:22 PM DRILLER HAND 11/08/2017 2:58 PM DRILLER HAND Janae Diaz MD LAB - SEROLOGY ORDER MAYRA Performing Organization Address [facility] Co de Phone Number [address] [phone] * CARDIOLIPIN ANTIBODY IGG (11/08/2017 2:22 PM DRILLER HAND) Anticardiolipin Antibody IgG <15.0 <15.0 GPL [facility] Blood specimen (specimen) BLOOD SPECIMEN / Unknown 11/08/2017 2:22 PM DRILLER HAND 11/08/2017 2:58 PM DRILLER HAND Janae Diaz MD LAB - SEROLOGY ORDER MAYRA Performing Organization Address [facility]/ZIP Co de Phone Number [address] [phone] * (ABNORMAL) ANTITHROMBIN III ACTIVITY (11/08/2017 2:22 PM DRILLER HAND) APTT 20.3(L) 23.0 - 38.4 Seconds [facility] Comment:Suggested therapeuti c range for full dose I.V. heparin therapy for venous thromboembolism is 66.0-91.0 seconds. Antithrombin Activity 88 85 - 130 U/dL [facility] Blood specimen (specimen) BLOOD SPECIMEN / Unknown 11/08/2017 2:22 PM DRILLER HAND 11/08/2017 2:58 PM DRILLER HAND Narrative [facility] - 11/12/2017 11:19 AM DRILLER HAND Is patient on Heparin, Argatroban or Dabigatran?->N Janae Diaz MD LAB - COAGULATION OR DERABLES Performing Organization Address [facility] Co de Phone Number [address] [phone] * (ABNORMAL) PROTEIN C FUNCTIONAL (11/08/2017 2:22 PM DRILLER HAND) APTT 25.8 23.0 - 38.4 Seconds [facility] PT 13.7 12.1 - 14.8 Seconds [facility] Protein C Activity 57(L) 70 - 130 U/dL [facility] Comment: Protein C may be abnormally low in the acute phase of thrombosis, other acute illnesses, liver disease, nephrotic syndrome, vitamin K deficiency, Warfarin therapy, and estrogen-oral contraceptive use. Adult Normal Reference Range. ??Not applicable to children or adolescents less than age 18 years. ?? INR 1.1 [facility] Blood specimen (specimen) BLOOD SPECIMEN / Unknown 11/08/2017 2:22 PM DRILLER HAND 11/08/2017 2:58 PM DRILLER HAND Narrative [facility] - 11/12/2017 10:53 AM DRILLER HAND Is the patient on Coumadin?->N Janae Diaz MD LAB - CHEMISTRY ORDSherrill CELIS Performing Organization Address [facility] Co de Phone Number [address] [phone] * CHRIS VIPER VENOM DILUTE (11/08/2017 2:22 PM DRILLER HAND) APTT 25.8 23.0 - 38.4 Seconds [facility] PT 13.7 12.1 - 14.8 Seconds [facility] INR 1.1 [facility] LA-DRVVT Screen 0.9 <1.2 [facility] Interpretation Dilute RVV Negative Negative [facility] Blood specimen (specimen) BLOOD SPECIMEN / Unknown 11/08/2017 2:22 PM DRILLER HAND 11/08/2017 2:58 PM DRILLER HAND Janae Diaz MD LAB - COAGULATION OR DERABLES Performing Organization Address [facility] de Phone Number [address] [phone] * (ABNORMAL) FACTOR VIII ASSAY (11/08/2017 2:22 PM DRILLER HAND) Factor VIII Activity 679(H) 45 - 225 U/dL [facility] Comment: Biologic population variability within the [...] BLOOD SPECIMEN / Unknown 11/08/2017 2:22 PM DRILLER HAND 11/08/2017 2:58 PM DRILLER HAND Narrative [facility] - 11/11/2017 10:23 AM DRILLER HAND Is this a pre or post-infusion?->NA Janae Diaz MD LAB - COAGULATION OR DERABLES Performing Organization Address [facility] Co de Phone Number [address] [phone] * (ABNORMAL) PROTEIN S ACTIVITY (11/08/2017 2:22 PM DRILLER HAND) APTT 25.8 23.0 - 38.4 Seconds [facility] PT 13.7 12.1 - 14.8 Seconds [facility] Protein S Functional 65(L) 70 - 130 U/dL [facility] Comment: Functional Protein S assay is [...] year and older. INR 1.1 See Comment [facility] Blood specimen (specimen) BLOOD SPECIMEN / Unknown 11/08/2017 2:22 PM DRILLER HAND 11/08/2017 2:58 PM DRILLER HAND Narrative [facility] - 11/12/2017 10:53 AM DRILLER HAND Is the patient on Coumadin?->N Janae Diaz MD LAB - COAGULATION OR DERABLES Performing Organization Address [facility]/ZIP Co de Phone Number [address] [phone] * HOMOCYSTEINE BLOOD QUANTITATIVE (11/08/2017 2:22 PM DRILLER HAND) Homocysteine 8.0 4.4 - 16.2 umol/L [facility] Blood specimen (specimen) BLOOD SPECIMEN / Unknown 11/08/2017 2:22 PM DRILLER HAND 11/08/2017 2:58 PM DRILLER HAND Janae Diaz MD LAB - CHEMISTRY LUIS ENRIQUE Rubio Organization Address City/State/ZIP Co de Phone Number [facility] [address] [phone] * (ABNORMAL) TEG CITRATED KAOLIN (CK) (11/08/2017 2:22 PM DRILLER HAND) Only the most recent of2 resultswithin the time period is included. G-Clot Strength 4.1(L) 4.5 - 11.0 d/sc [facility] Interpretation TEG See Comment [facility] React-Time 2.3(L) 5.0 - 10.0 MIN [facility] K-Time 3.5(H) 1.0 - 3.0 MIN [facility] Angle A-BB 55.4 53.0 - 72.0 Degrees [facility] MA (CK) BB 45.3(L) 50.0 - 70.0 mm [facility] LY30 8.6(H) 0.0 - 8.0 % [facility] CI-Coagulation Index -0.9 -3.0 - 3.0 [facility] Blood specimen (specimen) 11/08/2017 2:22 PM DRILLER HAND 11/08/2017 2:30 PM DRILLER HAND Narrative [facility] - 11/08/2017 4:28 PM DRILLER HAND SEE BELOW ?TEG Kaolin Sample Type Interpretation [...] MD LAB - BLOOD BANK ORD ERABLES [facility] [address] [place] [address], [facility] * LAB MISCELLANEOUS TEST 2 (11/08/2017 2:22 PM DRILLER HAND) Reference Lab Results SEE SCANNED REPORT [facility] NON INTERF Other (qualifier value) 11/08/2017 2:22 PM DRILLER HAND 11/08/2017 3:27 PM DRILLER HAND Narrative [facility] INTERF - 11/13/2017 11:19 AM DRILLER HAND Test Name:->Protrombin Gene Mutation Reference Lab Info:->SLU DNA Lab Janae Diaz MD LAB - CHEMISTRY LUIS ENRIQUE CELIS Performing Organization Address [facility] de Phone Number [facility] NON INTERF [address] [place] [address] * LAB MISC TEST (11/08/2017 2:22 PM DRILLER HAND) Reference Lab Results SEE SCANNED REPORT [facility] NON INTERF Other (qualifier value) 11/08/2017 2:22 PM DRILLER HAND 11/08/2017 3:27 PM DRILLER HAND Narrative [facility] - 11/13/2017 11:18 AM DRILLER HAND Test Name:->Factor V Leiden Reference Lab Info:->SLU DNA ??LAB Janae Diaz MD LAB SEND OUT Performing Organization Address [facility] de Phone Number [facility] NON INTERF [address] [place] [address] * PATHOLOGY/GENETICS HISTORICAL-ONBASE (11/08/2017) 11/08/2017 Historical Provider LAB - CHEMISTRY O RDERABLES Performing Organization Address [facility] de Phone Number [place] [phone] [address] * US LIVER TRANSPLANT (11/07/2017 5:34 PM DRILLER HAND) Only the most recent of2 resultswithin the time period is included. Anatomical Region Laterality Modality Other Impressions 11/08/2017 4:46 PM DRILLER HAND IMPRESSION: 1. Normal sonographic appearance of the transplant liver. 2. Patent hepatic vasculature. Dictated by Royce Carter MD (resident services manager). This report was approved ??by Royce Carter ?? on 11/08/2017 9:47 AM . I, Dr. LESLY FERMIN M.D. have personally reviewed and interpreted this examination/study. This report was electronically signed by LESLY FERMIN M.D. ??on 11/08/2017 4:46 PM . Narrative 11/08/2017 4:46 PM DRILLER HAND EXAMINATION: 1. Limited right upper quadrant abdominal [...] hepatic vasculature. Dictated by Royce Carter MD (resident services manager). This report was approved by Royce Carter on 11/08/2017 9:47 AM . I, Dr. LESLY FERMIN M.D. have personally reviewed and interpreted thisexamination/study. This report was electronically signed by LESLY FERMIN M.D. on 11/08/20174:46 PM . Janae Diaz MD US ORDERABLES * NM HEPATOBILIARY WO CCK EF (11/07/2017 1:35 PM DRILLER HAND) Anatomical Region Laterality Modality Abdomen Other Impressions 11/07/2017 3:02 PM DRILLER HAND Procedure: Hepatobiliary scan. History: 62-year-old male with elevated bilirubin status post liver transplantation. Technique: 10.23 mCi of [id number]-Qiwxqjpz injected IV; dynamic images of the abdomen [...] status post livertransplantation. Technique: 10.23 mCi of Lq44p-Sdrawaur injected IV; dynamic images of theabdomen were [...] Janae Diaz MD NM ORDERABLES * PT-INR [facility] (11/07/2017 5:19 AM DRILLER HAND) Only the most recent of49 resultswithin the time period is included. PT 13.9 12.1 - 14.[address] [facility] INR 1.1 See Comment [facility] Comment: Suggested therapeutic range for low-intensity coumadin therapy for venous thromboembolism prophylaxis is an INR of 2.0-3.0. ??For high risk patients (Mitral Valve Prosthesis, Atrial Fibrillation, history of TIA/stroke), suggested prophylactic therapeutic range is an INR of 2.5-3.5. Blood specimen (specimen) BLOOD SPECIMEN / Unknown 11/07/2017 5:19 AM DRILLER HAND 11/07/2017 5:24 AM DRILLER HAND Narrative [facility] - 11/07/2017 5:50 AM DRILLER HAND Is patient on Heparin, Argatroban or Dabigatran?->N Janae Diaz MD LAB - COAGULATION OR DERABLES [address] [phone] * LACTIC ACID BLOOD (11/04/2017 11:38 AM DRILLER HAND) Only the most recent of5 resultswithin the time period is included. Lactic Acid-Stat 0.6 0.5 - 2.2 mmol/L [facility] Blood specimen (specimen) BLOOD SPECIMEN / Unknown 11/04/2017 11:38 AM DRILLER HAND 11/04/2017 11:43 AM DRILLER HAND Janae Diaz MD LAB - CHEMISTRY ORDE RABLES Performing Organization Address [facility]/[place] [address], [facility] [phone] * (ABNORMAL) BLOOD GASES ART (11/04/2017 11:38 AM DRILLER HAND) Only the most recent of10 resultswithin the time period is included. pH Arterial 7.40 7.35 - 7.45 [facility] pCO2 Arterial 34(L) 35 - 45 mmHg [facility] pO2 Arterial 75 71 - 95 mmHg [facility] HCO3 Arterial 20.3(L) 22.0 - 26.0 mmol/L [facility] TCO2 Arterial 21.3(L) 25.0 - 29.0 mmol/L [facility] Base Excess Arterial -3.9(L) -2.0 - 2.0 mmol/L [facility] Hemoglobin Arterial 10.7(L) 13.5 - 17.5 g/dL [facility] Oxyhemoglobin Arterial 92.6(L) 95.0 - 100.0 % [facility] Carboxyhemoglobin 0.6 0.0 - 3.0 % [facility] Methemoglobin 0.5 0.0 - 2.0 % [facility] FI O2 Arterial 40.0 % [facility] Blood specimen (specimen) BLOOD SPECIMEN / Unknown 11/04/2017 11:38 AM DRILLER HAND 11/04/2017 11:43 AM DRILLER HAND Janae Diaz MD LAB - BLOOD GASES OR DERABLES [address] [phone] * (ABNORMAL) SVO2 FOR RECALIBRATION (11/04/2017 5:25 AM DRILLER HAND) SVO2 for Recalibration 84.2(H) 66.0 - 77.0 % [facility] Blood specimen (specimen) BLOOD SPECIMEN / Unknown 11/04/2017 5:25 AM DRILLER HAND 11/04/2017 5:31 AM DRILLER HAND Janae Diaz MD LAB - CHEMISTRY ORDE RABLES Performing Organization Address [facility]/ZIP Co de Phone Number [address] [phone] * (ABNORMAL) FIBRINOGEN ACTIVITY (11/03/2017 9:31 PM DRILLER HAND) Only the most recent of5 resultswithin the time period is included. Fibrinogen Clauss 127(L) 200 - 400 mg/dL [facility] Blood specimen (specimen) BLOOD SPECIMEN / Unknown 11/03/2017 9:31 PM DRILLER HAND 11/03/2017 9:36 PM DRILLER HAND Janae Diaz MD LAB - COAGULATION OR DERABLES [place] [id number] [address] [phone] * XR CHEST 1VW PORTABLE (11/03/2017 9:23 PM DRILLER HAND) Only the most recent of7 resultswithin the time period is included. Anatomical Region Laterality Modality Chest Other Impressions 11/04/2017 1:59 PM DRILLER HAND IMPRESSION: The endotracheal tube tip superimposes midthoracic trachea. The gastric tube terminates in gastric body. A left internal jugular approach Houston-Akiko catheter terminates in main pulmonary artery. A drain/catheter traverses the upper abdomen. Lung volumes are small. Mild bibasilar atelectasis are again noted. Left lower lobe opacification may represents pleural effusion with underlying atelectasis/airspace disease. No pneumothorax is identified. The cardiomediastinal silhouette is unchanged. Dictated by Kristyn Calzada MD (resident services manager). IDr. WALTER M.D. have personally reviewed and interpreted this examination/study. This report was electronically signed by WALTER BACA M.D. ??on 11/04/2017 1:59 PM . Narrative 11/04/2017 1:59 PM DRILLER HAND EXAMINATION: PX CHEST 1 VW HISTORY: cvc [...] is unchanged. Dictated by Kristyn Calzada MD (resident services manager). I, Dr. WALTER BACA M.D. have personally reviewed and interpreted thisexamination/study. This report was electronically signed by WALTER BACA M.D. on 11/04/20171:59 PM . Janae Diaz MD DIAGNOSTIC IMAGING O RDERABLES * LACTIC ACID WHOLE BLOOD (11/03/2017 7:17 PM DRILLER HAND) Only the most recent of5 resultswithin the time period is included. Lactic Acid Whole Blood 1.1 0.5 - 3.4 mmol/L [facility] Blood specimen (specimen) BLOOD SPECIMEN / Unknown 11/03/2017 7:17 PM DRILLER HAND 11/03/2017 7:22 PM DRILLER HAND Jay Jay Heredia MD LAB - CHEMISTRY LUIS ENRIQUE CELIS Performing Organization Address [facility]/ZIP Co de Phone Number [address] [phone] * CHLORIDE WHOLE BLOOD (11/03/2017 7:17 PM DRILLER HAND) Only the most recent of5 resultswithin the time period is included. Chloride Whole Blood 105 101 - 111 mmol/L [facility] Blood specimen (specimen) BLOOD SPECIMEN / Unknown 11/03/2017 7:17 PM DRILLER HAND 11/03/2017 7:22 PM DRILLER HAND Jay Jay Heredia MD LAB - CHEMISTRY LUIS ENRIQUE CELIS [address] [phone] * (ABNORMAL) CALCIUM IONIZED WHOLE BLOOD (11/03/2017 7:17 PM DRILLER HAND) Only the most recent of5 resultswithin the time period is included. Ionized Calcium Whole Blood 1.05 mmol/L [facility] Adjusted Ionized Calcium 1.07(L) 1.19 - 1.34 mmol/L [facility] pH Whole Blood 7.43 7.35 - 7.45 [facility] Blood specimen (specimen) BLOOD SPECIMEN / Unknown 11/03/2017 7:17 PM DRILLER HAND 11/03/2017 7:22 PM DRILLER HAND Jay Jay Heredia MD LAB - CHEMISTRY LUIS ENRIQUE CELIS [address] [phone] * POTASSIUM WHOLE BLD (11/03/2017 7:17 PM DRILLER HAND) Only the most recent of5 resultswithin the time period is included. Potassium Whole Blood 4.9 3.5 - 5.5 mmol/L [facility] Blood specimen (specimen) BLOOD SPECIMEN / Unknown 11/03/2017 7:17 PM DRILLER HAND 11/03/2017 7:22 PM DRILLER HAND Jay Jay Heredia MD LAB - CHEMISTRY LUIS ENRIQUE CELIS Performing Organization Address [facility] Co de Phone Number [address] [phone] * (ABNORMAL) SODIUM WHOLE BLOOD (11/03/2017 7:17 PM DRILLER HAND) Only the most recent of5 resultswithin the time period is included. Sodium Whole Blood 132(L) 135 - 145 mmol/L [facility] Blood specimen (specimen) BLOOD SPECIMEN / Unknown 11/03/2017 7:17 PM DRILLER HAND 11/03/2017 7:22 PM DRILLER HAND Jay Jay Heredia MD LAB - CHEMISTRY LUIS ENRIQUE CELIS Performing Organization Address [facility]/[place] [address], [facility] [phone] * (ABNORMAL) GLUCOSE WHOLE BLOOD (11/03/2017 7:17 PM DRILLER HAND) Only the most recent of5 resultswithin the time period is included. Glucose Whole Blood 250(H) 70 - 110 mg/dL [facility] Blood specimen (specimen) BLOOD SPECIMEN / Unknown 11/03/2017 7:17 PM DRILLER HAND 11/03/2017 7:22 PM DRILLER HAND Jay Jay Heredia MD LAB - CHEMISTRY LUIS ENRIQUE CELIS [facility] Organization Address City/State/ZIP Co de Phone Number [facility] [address] [place] [address], [facility] [phone] * (ABNORMAL) BLOOD GASES ART COMPLETE [facility] (11/03/2017 6:20 PM DRILLER HAND) Only the most recent of3 resultswithin the time period is included. pH Arterial 7.41 7.35 - 7.45 [facility] pCO2 Arterial 40 35 - 45 mmHg [facility] pO2 Arterial 190(H) 71 - 95 mmHg [facility] HCO3 Arterial 24.5 22.0 - 26.0 mmol/L [facility] TCO2 Arterial 25.7 25.0 - 29.0 mmol/L [facility] Base Excess Arterial -0.1 -2.0 - 2.0 mmol/L [facility] Hemoglobin Arterial 11.2(L) 13.5 - 17.5 g/dL [facility] Oxyhemoglobin Arterial 97.5 95.0 - 100.0 % [facility] Carboxyhemoglobin 0.3 0.0 - 3.0 % [facility] Methemoglobin 0.3 0.0 - 2.0 % [facility] FI O2 Arterial 60.0 % [facility] Ionized Calcium Whole Blood 1.10 mmol/L [facility] Adjusted Ionized Calcium 1.11(L) 1.19 - 1.34 mmol/L [facility] Sodium Whole Blood 133(L) 135 - 145 mmol/L [facility] Potassium Whole Blood 5.5 3.5 - 5.5 mmol/L [facility] Chloride Whole Blood 106 101 - 111 mmol/L [facility] Glucose Whole Blood 230(H) 70 - 110 mg/dL [facility] Lactic Acid Whole Blood 1.3 0.5 - 3.4 mmol/L [facility] Blood specimen (specimen) 11/03/2017 6:20 PM DRILLER HAND 11/03/2017 6:20 PM DRILLER HAND Janae Diaz MD LAB - BLOOD GASES OR DERABLES Performing Organization Address [facility] Co de Phone Number [address] [phone] * (ABNORMAL) URINALYSIS W/MICROSCOPIC NO CULTURE (11/03/2017 3:30 AM DRILLER HAND) Only the most recent of2 resultswithin the time period is included. Color UA Lala(A) Straw, Yellow, Colorless, Light Yellow [facility] Clarity UA Clear Clear [facility] Specific Bush UA 1.023 1.001 - 1.030 [facility] pH UA 6.5 5.0 - 8.0 [facility] Protein UA Trace(A) <=20 mg/dL [facility] Glucose UA >1000(A) Negative mg/dL [facility] Ketone UA Negative Negative mg/dL [facility] Bilirubin UA Negative Negative mg/dL [facility] Blood UA Negative Negative [facility] Nitrite UA Negative Negative [facility] Leukocyte Esterase Negative Negative [facility] Urobilinogen UA >12.0(H) <2.0 mg/dL [facility] RBC UA 3 0 - 8 /HPF [facility] WBC UA <1 0 - 2 /HPF [facility] Mucus UA Rare(A) None /LPF [facility] Hyaline Casts UA 1 0 - 2 /LPF [facility] Urine specimen (specimen) 11/03/2017 3:30 AM DRILLER HAND 11/03/2017 3:30 AM DRILLER HAND Janae Diaz MD LAB - URINALYSIS ORD ERABLES Performing Organization Address [facility]/State/ZIP Co de Phone Number [address] [phone] * DRUG ABUSE PANEL 10-20+ETHANOL URINE NO CONFIRM (11/03/2017 3:30 AM DRILLER HAND) Only the most recent of3 resultswithin the time period is included. Amphetamines Screen Urine Negative Negative: < 1000 ng/mL [facility] Barbiturates Screen Urine Negative Negative: < 200 ng/mL [facility] Benzodiazepine Screen Urine Negative Negative: < 200 ng/mL [facility] Opiates Urine Negative Negative: < 300 ng/mL [facility] Cocaine Metabolites Urine Negative Negative: < 300 ng/mL [facility] Phencyclidine Screen Urine Negative Negative: < 25 ng/ml [facility] Cannabinoids Screen Urine Negative Negative: <50 ng/mL [facility] Methadone Screen Urine Negative Negative: < 300 ng/mL [facility] Urine specimen (specimen) URINE / Unknown 11/03/2017 3:30 AM DRILLER HAND 11/03/2017 3:30 AM DRILLER HAND Narrative [facility] - 11/03/2017 3:52 AM DRILLER HAND The Urine Toxicology Screening Panel does not screen for Propoxyphene, Meprobamate, Carisoprodol, Trazodone, ykhz-ydf-ubidwcq medications and/or volatiles (Acetone, Isopropanol, Methanol or Ethylene Glycol). Ethanol, Salicylate, Acetaminophen, Tricyclic Antidepressants and several therapeutic drugs may be individually assayed in serum or plasma specimen. Toxicology testing by the [facility] is an aid to medical diagnosis and treatment of patients. No documented chain of custody was maintained. Results are intended to be used for clinical purposes only. ? Janae Diaz MD LAB - URINE CHEMISTR Y ORDERABLES [facility] [address] [place] [address], [facility] [phone] * TYPE + SCREEN PANEL (11/02/2017 9:16 PM DRILLER HAND) Only the most recent of5 resultswithin the time period is included. Typem A POS [facility] Antibody Screen NEG [facility] Blood specimen (specimen) 11/02/2017 9:16 PM DRILLER HAND 11/02/2017 9:32 PM DRILLER HAND Janae Diaz MD LAB - BLOOD BANK ORD ERABLES [facility] [address] * CROSSMATCH RBC LEUKOREDUCED (11/02/2017 9:16 PM DRILLER HAND) Only the most recent of3 resultswithin the time period is included. Unit RBC-WBCD [id number] returned [facility] (BEAKER) Unit RBC-WBCD [id number] returned [facility] (BEAKER) 11/02/2017 9:16 PM DRILLER HAND 11/02/2017 9:33 PM DRILLER HAND Narrative [facility] (BEAKER) - 11/02/2017 9:16 PM DRILLER HAND # of Units->2 Janae Diaz MD LAB - BLOOD BANK ORD ERABLES [facility] (BEAKER) * PREPARE FFP UNIT(S) (11/02/2017 9:16 PM DRILLER HAND) Unit FFP [id number] transfused [facility] (BEAKER) Unit ABO AB [facility] BLOOD BANK PRODUCTS (BEAKER) Unit Rh POS H BLOOD BANK PRODUCTS (BEAKER) Unit Number [id number] [facility]LOOD BANK PRODUCTS (BEAKER) Unit Status Transfused [facility] BLO OD B[facility] PRODUCTS (BEAKER) Unit FFP [id number] transfused H BLOOD BANK PRODUCTS (BEAKER) Unit ABO AB [facility] (BEAKER) Unit Rh POS H BLOOD BANK PRODUCTS (BEAKER) Unit Number [id number] [facility] (BEAKER) Unit Status Transfused [facility] BLO OD BANK PRODUCTS (BEAKER) Unit FFP [id number] returned [facility] Unit FFP [id number] returned [facility] ([facility] Unit FFP [id number] returned [facility] ([place]) Unit FFP [id number] returned [facility] ([facility]) 11/02/2017 9:16 PM DRILLER HAND 11/02/2017 9:33 PM DRILLER HAND Narrative [facility] ([facility]) - 11/02/2017 9:16 PM DRILLER HAND # of Units->6 Janae Daiz MD LAB - BLOOD BANK ORD ERABLES [facility] ([facility]) * HLA XM SEROLOGIC DONOR (11/02/2017 3:17 PM DRILLER HAND) XM B Donor ID [id number] [facility] ([facility]) XM B Relation Donor [facility] ([facility]) XM Test Date 11/04/2017 [facility] ([facility]) XM T Tyson Neg [facility] [place] [facility] ([facility]) XM B Serum Date 11/02/2017 [facility] ([facility]) Comment: This test was developed and its performance characteristics determined bythe [facility]. ??It has not been cleared or approved by theU.S. Food and Drug Administration. ??The FDA has determined that suchclearance or approval is not necessary. ?? This test is used for clinicalpurposes. ??It should not be regarded as investigational or for research.This laboratory is certified under the Clinical Laboratory ImprovementAmendments of 1988 (CLIA-88) as qualified to perform high complexityclinical laboratory testing. ??CLIA ID# [id number] at: ??[facility], [address] [facility] [place], [place] ??[id number] Director: Andrew Jones MD, XM B Tyson Neg S [place] [facility] ([facility]) XM T AHG Neg SL [facility] ([facility]) XM B AHG Neg [facility] (BEAKER) Blood specimen (specimen) BLOOD SPECIMEN / Unknown 11/02/2017 3:17 PM DRILLER HAND 11/04/2017 3:17 PM DRILLER HAND Janae Diaz MD LAB - BLOOD BANK ORD ERABLES [facility] ([place]) [address] [phone] * EKG 12-LEAD (11/02/2017 12:00 AM DRILLER HAND) Only the most recent of3 resultswithin the time period is included. [facility] Comment: Exam Date/Time: ?? Nov 02 [...] leads Confirmed by Cristhian Chavira, L. ([id number]), editorial assistant PATRICIA STERLING ([id number]) on 11/06/2017 12:15:11 PM Referred By: REFERRING NO ? Confirmed By:Aniya Chavira M.D. 11/02/2017 Janae Diaz MD ECG ORDERABLES [facility] * BLOOD TYPE ABO+ RH PANEL (08/06/2017 12:00 PM DRILLER HAND) Only the most recent of2 resultswithin the time period is included. Typem A POS [facility] Blood specimen (specimen) BLOOD SPECIMEN / Unknown 08/06/2017 12:00 PM DRILLER HAND 08/06/2017 12:30 PM DRILLER HAND Tino Santiago MD LAB - BLOOD BANK ORD ERABLES Performing Organization Address [facility] Co de Phone Number [facility] [address] [place] [address] * (ABNORMAL) URINALYSIS REFLEX TO MICROSCOPIC NO CULTURE (08/06/2017 11:43 AM DRILLER HAND) Only the most recent of2 resultswithin the time period is included. Color UA Lala(A) Straw, Yellow, Colorless, Light Yellow [facility] Clarity UA Clear Clear [facility] Specific Bush UA 1.023 1.001 - 1.030 [facility] pH UA 5.5 5.0 - 8.0 [facility] Protein UA Trace(A) <=20 mg/dL [facility] Glucose UA 300(A) Negative mg/dL [facility] Ketone UA Negative Negative mg/dL [facility] Bilirubin UA Negative Negative mg/dL [facility] Blood UA Negative Negative [facility] Nitrite UA Negative Negative [facility] Leukocyte Esterase Negative Negative [facility] Urobilinogen UA 3.0(H) <2.0 mg/dL [facility] RBC UA 2 0 - 8 /HPF [facility] WBC UA 1 0 - 2 /HPF [facility] Bacteria UA Rare Rare, Occasional, None /HPF [facility] Hyaline Casts UA 1 0 - 2 /LPF [facility] Urine specimen (specimen) URINE SPECIMEN OBTAINED BY CLEAN CATCH PROCEDURE / Unknown 08/06/2017 11:43 AM DRILLER HAND 08/06/2017 12:23 PM DRILLER HAND Tino Santiago MD LAB - URINALYSIS ORD ERABLES Performing Organization Address [facility]/ZIP Co de Phone Number [address] [phone] * QUANTIFERON TB-GOLD INC (08/06/2017 11:43 AM DRILLER HAND) Only the most recent of2 resultswithin the time period is included. QuantiFERON TB Gold Negative Negative [facility] ([facility]) Comment: The specimen received for QuantiFERON testing was incubated by the ordering institution. ??Specific procedures outlined in our Directory of Services and in the package insert for the QuantiFERON Gold (In Tube) test must be followed to enable for proper stimulation of cells for the production of interferon gamma. QuantiFERON Criteria Comment [facility] ([facility]) Comment: To be considered positive a [...] QuantiFERON TB Antigen Value 0.11 IU/mL [facility] ([facility]) QuantiFERON Nil Value 0.37 IU/mL [facility] ([facility]) QuantiFERON Mitogen Value 5.08 IU/mL [facility] ([facility]) QFT TB Ag minus Nil Value <0.00 IU/mL [facility] ([facility]) Interpretation Comment [facility] ([facility]) Comment: The QuantiFERON TB Gold (in [...] BLOOD SPECIMEN / Unknown 08/06/2017 11:43 AM DRILLER HAND 08/06/2017 12:27 PM DRILLER HAND Narrative [facility] ([facility]) - 08/11/2017 5:07 PM DRILLER HAND Performed at: ??01 - [facility] [address] [place], [place] ??[id number] Manager Programming: Tio Segal PhD, Phone: ??[phone] Tino Santiago MD LAB - SEROLOGY ORDER [facility] ([facility]) [address] [place] [address], [facility] * CANCER ANTIGEN (CA) 19-9 (08/06/2017 11:43 AM DRILLER HAND) Only the most recent of2 resultswithin the time period is included. CA 19-9 22.830 <35.000 U/mL [facility] Comment: CA 19-9 values will vary depending on testing procedure used. Results are not comparable across different methods. CA 19-9 values obtained in [facility] using a Tulio Lyn Immunoassay. Blood specimen (specimen) BLOOD SPECIMEN / Unknown 08/06/2017 11:43 AM DRILLER HAND 08/06/2017 12:26 PM DRILLER HAND Tino Santiago MD LAB - CHEMISTRY [facility] [address] [phone] * NICOTINE + METABOLITES BLOOD (08/06/2017 11:43 AM DRILLER HAND) Only the most recent of2 resultswithin the time period is included. Pathologist [facility] Nicotine None Detected ng/mL [facility] ([facility]) Comment: Nicotine levels greater than 2.0 are consistent with the use of tobacco or tobacco cessation products. Cotinine None Detected ng/mL [facility] ([facility]) Comment: Cotinine levels greater than 20.0 are consistent with the use of tobacco or tobacco cessation products. Blood specimen (specimen) BLOOD SPECIMEN / Unknown 08/06/2017 11:43 AM DRILLER HAND 08/06/2017 12:26 PM DRILLER HAND Narrative [facility] ([facility]) - 08/09/2017 9:17 AM DRILLER HAND Performed at: ??01 - [facility] [address] ??[id number] Manager Programming: Peter Treadwell MD, Phone: ??[phone] Tino Santiago MD LAB - CHEMISTRY LUIS EN[facility] ([facility]) [address] [place] [address] * HIV-1 HIV-2 ANTIGEN/ANTIBODY (08/06/2017 11:43 AM DRILLER HAND) Only the most recent of2 resultswithin the time period is included. HIV Antigen/Antibod y 1 & 2 Non-reacti ve Non-react rosendo [facility] Comment: Neither HIV-1 p24 Antigen nor HIV-1/HIV-2 Antibodies are detected. ? Blood specimen (specimen) BLOOD SPECIMEN / Unknown 08/06/2017 11:43 AM DRILLER HAND 08/06/2017 12:24 PM DRILLER HAND Tino Santiago MD LAB - HEMATOLOGY ORD ERABLES Performing Organization Address [facility] Co de Phone Number [address] [phone] * PSA FREE + TOTAL PANEL (08/06/2017 11:43 AM DRILLER HAND) Only the most recent of2 resultswithin the time period is included. Pathologist [facility] PSA Total <0.1 0.0 - 4.0 ng/mL [facility] PSA Free <0.10 0.00 - 0.50 ng/mL [facility] PSA % Free See Comment % [facility] Comment:Unable to calculate % Free PSA due to Free and/or Total PSA concentration(s) being <0.1 ng/mL. Blood specimen (specimen) BLOOD SPECIMEN / Unknown 08/06/2017 11:43 AM DRILLER HAND 08/06/2017 12:24 PM DRILLER HAND Tino Santiago MD LAB - CHEMISTRY [facility] Performing Organization Address City/[facility]/ZIP Co de Phone Number [address] [phone] * RPR (08/06/2017 11:43 AM DRILLER HAND) Only the most recent of2 resultswithin the time period is included. Pathologist [facility] RPR Non-reacti ve Non-reacti ve [facility] Blood specimen (specimen) BLOOD SPECIMEN / Unknown 08/06/2017 11:43 AM DRILLER HAND 08/06/2017 12:24 PM DRILLER HAND Tino Santiago MD LAB - CHEMISTRY [facility] Performing Organization Address [facility]/State/ZIP Co de Phone Number [address] [phone] * RUBEOLA ANTIBODY IGG (08/06/2017 11:43 AM DRILLER HAND) Only the most recent of2 resultswithin the time period is included. Measles (Rubeola) Antibody IgG >300.0 Immune >29.9 AU/mL [facility] Comment: ? Negative ?<25.0 ? Equivocal 25.0 - 29.9 ? Positive ?>29.9 Presence of antibodies to Rubeola is presumptive evidence of immunity except when acute infection is suspected. Blood specimen (specimen) BLOOD SPECIMEN / Unknown 08/06/2017 11:43 AM DRILLER HAND 08/06/2017 12:26 PM DRILLER HAND Narrative [facility] - 08/07/2017 3:18 PM DRILLER HAND Performed at: ??01 - [facility] [address] [place], [place] ??[id number] Manager Programming: Tio Segal PhD, Phone: ??[phone] Tino Santiago MD LAB - CHEMISTRY [facility] Performing Organization Address [facility]/ZIP Co de Phone Number [facility] [address] [place] [address] * VARICELLA ZOSTER ANTIBODY IGG (08/06/2017 11:43 AM DRILLER HAND) Varicella zoster Virus Antibody IgG >4000 Immune >165 index [facility] Comment: ? Negative ?<135 ? Equivocal ?135 - 165 ? Positive ?>165 A positive result generally indicates exposure to the pathogen or administration of specific immunoglobulins, but it is not indication of active infection or stage of disease. Blood specimen (specimen) BLOOD SPECIMEN / Unknown 08/06/2017 11:43 AM DRILLER HAND 08/06/2017 12:26 PM DRILLER HAND Narrative [facility] - 08/07/2017 3:18 PM DRILLER HAND Performed at: ??01 - [facility] [address] [place], [place] ??[id number] Manager Programming: Tio Segal PhD, Phone: ??[phone] Tino Santiago MD LAB - CHEMISTRY [facility] Performing Organization Address [facility] de Phone Number [facility] [address] [place] [address] * (ABNORMAL) TRANSFERRIN (08/06/2017 11:43 AM DRILLER HAND) Only the most recent of3 resultswithin the time period is included. Transferrin 161(L) 174 - 382 mg/dL [facility] Transferrin Saturation % 80(H) 16 - 50 % [facility] Blood specimen (specimen) BLOOD SPECIMEN / Unknown 08/06/2017 11:43 AM DRILLER HAND 08/06/2017 12:24 PM DRILLER HAND Tino Santiago MD LAB - CHEMISTRY [facility] Performing Organization Address [facility] Co de Phone Number [address] [phone] * RUBELLA ANTIBODY IGG (08/06/2017 11:43 AM DRILLER HAND) Only the most recent of2 resultswithin the time period is included. [facility] Rubella Antibody IgG Quantitative >33.00 Immune >0.99 index [facility] Comment: ?Non-immune ? <0.90 ?Equivocal ??0.90 - 0.99 ?Immune ? >0.99 Blood specimen (specimen) BLOOD SPECIMEN / Unknown 08/06/2017 11:43 AM DRILLER HAND 08/06/2017 12:24 PM DRILLER HAND Narrative [facility] - 08/07/2017 3:10 AM DRILLER HAND Performed at: ??01 - [facility] [address] [place], [place] ??[id number] Manager Programming: Tio Segal PhD, Phone: ??[phone] Tino Santiago MD LAB - SEROLOGY KAREL MAYRA Performing Organization Address [facility] Co de Phone Number [facility] [address] [place] [address] * HEPATITIS B CORE ANTIBODY (08/06/2017 11:43 AM DRILLER HAND) Only the most recent of3 resultswithin the time period is included. [facility] HBc Antibody Total Non-reacti ve Non-reacti ve [facility] Blood specimen (specimen) BLOOD SPECIMEN / Unknown 08/06/2017 11:43 AM DRILLER HAND 08/06/2017 12:24 PM DRILLER HAND Tino Santiago MD LAB - CHEMISTRY [facility] Performing Organization Address [facility]/[place] [address], [facility] [phone] * ALCOHOL ETHYL BLOOD (08/06/2017 11:43 AM DRILLER HAND) Only the most recent of3 resultswithin the time period is included. Interpretation Ethanol None Detected None Detected mg/dL [facility] Comment:Ethanol levels less than 10 mg/dL are resulted as None detected . Blood specimen (specimen) BLOOD SPECIMEN / Unknown 08/06/2017 11:43 AM DRILLER HAND 08/06/2017 12:24 PM DRILLER HAND Tino Santiago MD LAB - CHEMISTRY [facility] Performing Organization Address [facility] de Phone Number [address] [phone] * (ABNORMAL) FERRITIN (08/06/2017 11:43 AM DRILLER HAND) Only the most recent of3 resultswithin the time period is included. Ferritin 323(H) 22 - 275 ng/mL [facility] Blood specimen (specimen) BLOOD SPECIMEN / Unknown 08/06/2017 11:43 AM DRILLER HAND 08/06/2017 12:24 PM DRILLER HAND Tino Santiago MD LAB - CHEMISTRY [facility] Performing Organization Address [facility] Phone Number [address] [phone] * CYTOMEGALOVIRUS ANTIBODY IGG BLOOD (08/06/2017 11:43 AM DRILLER HAND) Only the most recent of2 resultswithin the time period is included. Cytomegalovirus Antibody IgG <0.60 0.00 - 0.59 U/mL [facility] Comment: ? Negative ?<0.60 ? Equivocal ?? 0.60 - 0.69 ? Positive ?>0.69 Blood specimen (specimen) BLOOD SPECIMEN / Unknown 08/06/2017 11:43 AM DRILLER HAND 08/06/2017 12:24 PM DRILLER HAND Narrative [facility] - 08/08/2017 5:12 AM DRILLER HAND Performed at: ??01 - [address] ??[id number] Manager Programming: Tio Segal PhD, Phone: ??[phone] Tino Santiago MD LAB - CHEMISTRY [facility] [address] [place] [address], [facility] * MUMPS ANTIBODY IGG (08/06/2017 11:43 AM DRILLER HAND) Only the most recent of2 resultswithin the time period is included. Mumps Virus Antibody IgG >300.0 Immune >10.9 AU/mL [facility] Comment: ?Negative ? <9.0 ?Equivocal ??9.0 - 10.9 ?Positive ?>10.9 A positive result generally indicates past exposure to Mumps virus or previous vaccination. Blood specimen (specimen) BLOOD SPECIMEN / Unknown 08/06/2017 11:43 AM DRILLER HAND 08/06/2017 12:25 PM DRILLER HAND Narrative [facility] - 08/07/2017 3:18 PM DRILLER HAND Performed at: ??01 - [address] ??[id number] Manager Programming: Tio Segal PhD, Phone: ??[phone] Tino Santiago MD LAB - CHEMISTRY [facility] [address] [place] [address] * (ABNORMAL) ÁNGEL-VOGEL VIRUS ANTIBODY TO VCA IGG (08/06/2017 11:43 AM DRILLER HAND) Only the most recent of2 resultswithin the time period is included. Ángel-Vogel Virus Antibody To Viral Capsid Antigen IgG >750.0(H) 0.0 - 21.9 U/mL [employer] ([facility]) Comment: INTERPRETIVE INFORMATION: Ángel-Vogel Virus Antibody to ?Viral Capsid Antigen, IgG ??17.9 U/mL or less.......Not Detected ??18.0-21.9 U/mL..........Indeterminate - Repeat testing in ?10-14 days may be helpful. ??22.0 U/mL or greater....Detected Interpretive information regarding serologic features of EBV-associated diseases is available at [email or web address]. Performed by [employer], [address] [place] [address] [email or web address], Yoandy Martinez MD, Lab. Director Blood specimen (specimen) BLOOD SPECIMEN / Unknown 08/06/2017 11:43 AM DRILLER HAND 08/06/2017 12:26 PM DRILLER HAND Tino Santiago MD LAB - CHEMISTRY [facility]) [address] [place] [address] * HEPATITIS B SURFACE ANTIGEN W RFLX CONFIRMATION (08/06/2017 11:43 AM DRILLER HAND) Only the most recent of2 resultswithin the time period is included. Hepatitis B Virus Surface Antigen Screen Negative Negative [facility] Blood specimen (specimen) BLOOD SPECIMEN / Unknown 08/06/2017 11:43 AM DRILLER HAND 08/06/2017 12:24 PM DRILLER HAND Narrative [facility] - 08/07/2017 5:14 AM DRILLER HAND Performed at: ??01 - [facility] [address] [facility], [place], [place] ??[id number] Manager Programming: Tio Segal PhD, Phone: ??[phone] Tino Santiago MD LAB - CHEMISTRY [facility] [address] [place] [address] * XR PANOREX (08/06/2017 11:29 AM DRILLER HAND) Only the most recent of2 resultswithin the time period is included. Anatomical Region Laterality Modality Head Other Impressions 08/07/2017 3:16 PM DRILLER HAND IMPRESSION: No evidence of periapical abscess. Dictated by Vivek Butler MD (resident services manager). I, Dr. WALTER BACA M.D. have personally reviewed and interpreted this examination/study. This report was electronically signed by WALTER BACA M.D. ??on 08/07/2017 3:16 PM . Narrative 08/07/2017 3:16 PM DRILLER HAND EXAMINATION: [facility] HISTORY: pre liver eval FINDINGS: [...] periapical abscess. Dictated by Vivek Butler MD (resident services manager). I, Dr. WALTER BACA M.D. have personally reviewed and interpreted thisexamination/study. This report was electronically signed by WALTER BACA M.D. on 08/07/20173:16 PM . Tino Santiago MD DIAGNOSTIC IMAGING O RDERABLES * ECHO STRESS TEST W DOBUTAMINE (08/06/2017 12:00 AM DRILLER HAND) Only the most recent of2 resultswithin the time period is included. Anatomical Region Laterality Modality Other 08/06/2017 Tino Santiago MD ECHOCARDIOGRAPHY RAD IANT * ECHO STRESS COLOR FLOW AND DOPPLER (08/06/2017 12:00 AM DRILLER HAND) Only the most recent of2 resultswithin the [...] artery (beyond 3rd order) and angiogram. 7. ??[place] embolization of the segment 7 branch of [...] draped in the usual sterile fashion. A wash and greaser film of the abdomen was obtained, which [...] documented. Following a series of exchanges, a 5-Gabonese vascular sheath was placed. The celiac artery (1st order) was catheterized with a 5 [place] Sos Omni-2 catheter and angiogram was obtained. The angiogram demonstrated a normal hepatic branching pattern. An attempt was made to catheterize the common hepatic artery with a 2.0 [place] Progreat microcatheter but was unsuccessful. Therefore, the Sos Omni 2 catheter was exchanged for a 4 [place] Cobra catheter and advanced into the proper [...] was sent to and analyzed at the [employer] work station. The study demonstrated nodular arterial enhancement in hepatic segment 7 at the dome superomedial to the ablation cavity. The right hepatic artery (beyond 3rd order) was then catheterized with a coaxially advanced 2.0 [place] Progreat microcatheter and angiogram was obtained. The [...] hepaticartery (beyond 3rd order) and angiogram. 7. [place] embolization of the segment 7 branch of [...] draped in the usual sterile fashion. A wash and greaser film of the abdomen was obtained, which [...] (1st order) was catheterized with a 5 [place] Sos Omni- 2catheter and angiogram was obtained. The angiogram demonstrated a normalhepatic branching pattern. An attempt was made to catheterize the commonhepatic artery with a 2.0 [place] Progreat microcatheter but was unsuccessful. Therefore, the Sos Omni 2catheter was exchanged for a 4 [place] Cobra catheter and advanced into theproper hepatic artery. Angiogram was performed with the catheter in theproper hepatic artery which showed antegrade flow in the right and left hepatic arteries. No definite tumorblush was identified. 3D Felicia CT was obtained following the injection of contrast with thecatheter in the proper hepatic artery. The data was sent to and analyzedat the [employer] work station. The study demonstrated nodular arterialenhancement in hepatic segment 7 at the dome superomedial to the ablation cavity. The right hepatic artery (beyond 3rd order) was then catheterized with acoaxially advanced 2.0 [place] Progreat microcatheter and angiogram wasobtained. The angiogram again demonstrated antegrade flow in branchvessels; the segment 7 branches were identified. The segment 7 branch of the right hepatic artery (beyond 3rd order) wasthen catheterized with the microcatheter and angiogram was obtained, whichshowed blood flow to the region of tumor identified on Felicia CT. This was then followed by embolization of the segment 7 branch [id number] Embospheres to near stasis. Post-embolization angiogram ofthe segment 7 branch showed satisfactory stasis. A sheath angiogram of the right common femoral artery was unremarkablewith femoral access away from the profunda. Hemostasis was achieved withan Angioseal closure device. A sterile dressing was applied. The patient tolerated the procedure well [facility]. There were no [...] artery (beyond 3rd order) and angiogram. 7. ??[place] embolization of the segment 7 branch of [...] draped in the usual sterile fashion. A wash and greaser film of the abdomen was obtained, which [...] documented. Following a series of exchanges, a 5-Gabonese vascular sheath was placed. The celiac artery (1st order) was catheterized with a 5 [place] Sos Omni-2 catheter and angiogram was obtained. The angiogram demonstrated a normal hepatic branching pattern. An attempt was made to catheterize the common hepatic artery with a 2.0 [place] Progreat microcatheter but was unsuccessful. Therefore, the Sos Omni 2 catheter was exchanged for a 4 [place] Cobra catheter and advanced into the proper [...] was sent to and analyzed at the [employer] work station. The study demonstrated nodular arterial enhancement in hepatic segment 7 at the dome superomedial to the ablation cavity. The right hepatic artery (beyond 3rd order) was then catheterized with a coaxially advanced 2.0 [place] Progreat microcatheter and angiogram was obtained. The [...] hepaticartery (beyond 3rd order) and angiogram. 7. [place] embolization of the segment 7 branch of [...] draped in the usual sterile fashion. A wash and greaser film of the abdomen was obtained, which [...] (1st order) was catheterized with a 5 [place] Sos Omni- 2catheter and angiogram was obtained. The angiogram demonstrated a normalhepatic branching pattern. An attempt was made to catheterize the commonhepatic artery with a 2.0 [place] Progreat microcatheter but was unsuccessful. Therefore, the Sos Omni 2catheter was exchanged for a 4 [place] Cobra catheter and advanced into theproper hepatic artery. Angiogram was performed with the catheter in theproper hepatic artery which showed antegrade flow in the right and left hepatic arteries. No definite tumorblush was identified. 3D Felicia CT was obtained following the injection of contrast with thecatheter in the proper hepatic artery. The data was sent to and analyzedat the [employer] work station. The study demonstrated nodular arterialenhancement in hepatic segment 7 at the dome superomedial to the ablation cavity. The right hepatic artery (beyond 3rd order) was then catheterized with acoaxially advanced 2.0 [place] Progreat microcatheter and angiogram wasobtained. The angiogram again demonstrated antegrade flow in branchvessels; the segment 7 branches were identified. The segment 7 branch of the right hepatic artery (beyond 3rd order) wasthen catheterized with the microcatheter and angiogram was obtained, whichshowed blood flow to the region of tumor identified on Felicia CT. This was then followed by embolization of the segment 7 branch [id number] micron Embospheres to near stasis. Post-embolization angiogram ofthe segment 7 branch showed satisfactory stasis. A sheath angiogram of the right common femoral artery was unremarkablewith femoral access away from the profunda. Hemostasis was achieved withan Angioseal closure device. A sterile dressing was applied. The patient tolerated the procedure well [facility]. There were no [...] 2. ??Dr. Cronin, IR Fellow 3. ??Shandra Wa, Medical Student Anesthesia: 1. ??Local anesthesia - [...] artery (beyond 3rd order) and angiogram. 7. ??[place] embolization of the segment 7 branch of [...] draped in the usual sterile fashion. A wash and greaser film of the abdomen was obtained, which [...] documented. Following a series of exchanges, a 5-Gabonese vascular sheath was placed. The celiac artery (1st order) was catheterized with a 5 [place] Sos Omni-2 catheter and angiogram was obtained. The angiogram demonstrated a normal hepatic branching pattern. An attempt was made to catheterize the common hepatic artery with a 2.0 [place] Progreat microcatheter but was unsuccessful. Therefore, the Sos Omni 2 catheter was exchanged for a 4 [place] Cobra catheter and advanced into the proper [...] was sent to and analyzed at the [employer] work station. The study demonstrated nodular arterial enhancement in hepatic segment 7 at the dome superomedial to the ablation cavity. The right hepatic artery (beyond 3rd order) was then catheterized with a coaxially advanced 2.0 [place] Progreat microcatheter and angiogram was obtained. The [...] hepaticartery (beyond 3rd order) and angiogram. 7. [place] embolization of the segment 7 branch of [...] draped in the usual sterile fashion. A wash and greaser film of the abdomen was obtained, which [...] (1st order) was catheterized with a 5 [place] Sos Omni- 2catheter and angiogram was obtained. The angiogram demonstrated a normalhepatic branching pattern. An attempt was made to catheterize the commonhepatic artery with a 2.0 [place] Progreat microcatheter but was unsuccessful. Therefore, the Sos Omni 2catheter was exchanged for a 4 [place] Cobra catheter and advanced into theproper hepatic artery. Angiogram was performed with the catheter in theproper hepatic artery which showed antegrade flow in the right and left hepatic arteries. No definite tumorblush was identified. 3D Felicia CT was obtained following the injection of contrast with thecatheter in the proper hepatic artery. The data was sent to and analyzedat the [employer] work station. The study demonstrated nodular arterialenhancement in hepatic segment 7 at the dome superomedial to the ablation cavity. The right hepatic artery (beyond 3rd order) was then catheterized with acoaxially advanced 2.0 [place] Progreat microcatheter and angiogram wasobtained. The angiogram again demonstrated antegrade flow in branchvessels; the segment 7 branches were identified. The segment 7 branch of the right hepatic artery (beyond 3rd order) wasthen catheterized with the microcatheter and angiogram was obtained, whichshowed blood flow to the region of tumor identified on Felicia CT. This was then followed by embolization of the segment 7 branch [id number] micron Embospheres to near stasis. Post-embolization angiogram ofthe segment 7 branch showed satisfactory stasis. A sheath angiogram of the right common femoral artery was unremarkablewith femoral access away from the profunda. Hemostasis was achieved withan Angioseal closure device. A sterile dressing was applied. The patient tolerated the procedure well [facility]. There were no [...] artery (beyond 3rd order) and angiogram. 7. ??[place] embolization of the segment 7 branch of [...] draped in the usual sterile fashion. A wash and greaser film of the abdomen was obtained, which [...] documented. Following a series of exchanges, a 5-Gabonese vascular sheath was placed. The celiac artery (1st order) was catheterized with a 5 [place] Sos Omni-2 catheter and angiogram was obtained. The angiogram demonstrated a normal hepatic branching pattern. An attempt was made to catheterize the common hepatic artery with a 2.0 [place] Progreat microcatheter but was unsuccessful. Therefore, the Sos Omni 2 catheter was exchanged for a 4 [place] Cobra catheter and advanced into the proper [...] was sent to and analyzed at the [employer] work station. The study demonstrated nodular arterial enhancement in hepatic segment 7 at the dome superomedial to the ablation cavity. The right hepatic artery (beyond 3rd order) was then catheterized with a coaxially advanced 2.0 [place] Progreat microcatheter and angiogram was obtained. The [...] hepaticartery (beyond 3rd order) and angiogram. 7. [place] embolization of the segment 7 branch of [...] draped in the usual sterile fashion. A wash and greaser film of the abdomen was obtained, which [...] (1st order) was catheterized with a 5 [place] Sos Omni- 2catheter and angiogram was obtained. The angiogram demonstrated a normalhepatic branching pattern. An attempt was made to catheterize the commonhepatic artery with a 2.0 [place] Progreat microcatheter but was unsuccessful. Therefore, the Sos Omni 2catheter was exchanged for a 4 [place] Cobra catheter and advanced into theproper hepatic artery. Angiogram was performed with the catheter in theproper hepatic artery which showed antegrade flow in the right and left hepatic arteries. No definite tumorblush was identified. 3D Felicia CT was obtained following the injection of contrast with thecatheter in the proper hepatic artery. The data was sent to and analyzedat the [employer] work station. The study demonstrated nodular arterialenhancement in hepatic segment 7 at the dome superomedial to the ablation cavity. The right hepatic artery (beyond 3rd order) was then catheterized with acoaxially advanced 2.0 [place] Progreat microcatheter and angiogram wasobtained. The angiogram again demonstrated antegrade flow in branchvessels; the segment 7 branches were identified. The segment 7 branch of the right hepatic artery (beyond 3rd order) wasthen catheterized with the microcatheter and angiogram was obtained, whichshowed blood flow to the region of tumor identified on Felicia CT. This was then followed by embolization of the segment 7 branch [id number] micron Embospheres to near stasis. Post-embolization angiogram [...] artery (beyond 3rd order) and angiogram. 7. ??[place] embolization of the segment 7 branch of [...] draped in the usual sterile fashion. A wash and greaser film of the abdomen was obtained, which [...] documented. Following a series of exchanges, a 5-Gabonese vascular sheath was placed. The celiac artery (1st order) was catheterized with a 5 [place] Sos Omni-2 catheter and angiogram was obtained. The angiogram demonstrated a normal hepatic branching pattern. An attempt was made to catheterize the common hepatic artery with a 2.0 [place] Progreat microcatheter but was unsuccessful. Therefore, the Sos Omni 2 catheter was exchanged for a 4 [place] Cobra catheter and advanced into the proper [...] was sent to and analyzed at the [employer] work station. The study demonstrated nodular arterial enhancement in hepatic segment 7 at the dome superomedial to the ablation cavity. The right hepatic artery (beyond 3rd order) was then catheterized with a coaxially advanced 2.0 [place] Progreat microcatheter and angiogram was obtained. The [...] hepaticartery (beyond 3rd order) and angiogram. 7. [place] embolization of the segment 7 branch of [...] draped in the usual sterile fashion. A wash and greaser film of the abdomen was obtained, which [...] (1st order) was catheterized with a 5 [place] Sos Omni- 2catheter and angiogram was obtained. The angiogram demonstrated a normalhepatic branching pattern. An attempt was made to catheterize the commonhepatic artery with a 2.0 [place] Progreat microcatheter but was unsuccessful. Therefore, the Sos Omni 2catheter was exchanged for a 4 [place] Cobra catheter and advanced into theproper hepatic artery. Angiogram was performed with the catheter in theproper hepatic artery which showed antegrade flow in the right and left hepatic arteries. No definite tumorblush was identified. 3D Felicia CT was obtained following the injection of contrast with thecatheter in the proper hepatic artery. The data was sent to and analyzedat the [employer] work station. The study demonstrated nodular arterialenhancement in hepatic segment 7 at the dome superomedial to the ablation cavity. The right hepatic artery (beyond 3rd order) was then catheterized with acoaxially advanced 2.0 [place] Progreat microcatheter and angiogram wasobtained. The angiogram again demonstrated antegrade flow in branchvessels; the segment 7 branches were identified. The segment 7 branch of the right hepatic artery (beyond 3rd order) wasthen catheterized with the microcatheter and angiogram was obtained, whichshowed blood flow to the region of tumor identified on Felicia CT. This was then followed by embolization of the segment 7 branch [id number] micron Embospheres to near stasis. Post-embolization angiogram ofthe segment 7 branch showed satisfactory stasis. A sheath angiogram of the right common femoral artery was unremarkablewith femoral access away from the profunda. Hemostasis was achieved withan Angioseal closure device. A sterile dressing was applied. The patient tolerated the procedure well and [facility]. There were no [...] Jony Garcia MD IR ORDERABLES * IR VISCERAL [...] on 07/02/2017 3:43 PM . I, Dr. JOYN GARCIA M.D. have personally reviewed and interpreted [...] artery (beyond 3rd order) and angiogram. 7. ??[place] embolization of the segment 7 branch of [...] draped in the usual sterile fashion. A wash and greaser film of the abdomen was obtained, which [...] documented. Following a series of exchanges, a 5-Gabonese vascular sheath was placed. The celiac artery (1st order) was catheterized with a 5 [place] Sos Omni-2 catheter and angiogram was obtained. The angiogram demonstrated a normal hepatic branching pattern. An attempt was made to catheterize the common hepatic artery with a 2.0 [place] Progreat microcatheter but was unsuccessful. Therefore, the Sos Omni 2 catheter was exchanged for a 4 [place] Cobra catheter and advanced into the proper [...] was sent to and analyzed at the [employer] work station. The study demonstrated nodular arterial enhancement in hepatic segment 7 at the dome superomedial to the ablation cavity. The right hepatic artery (beyond 3rd order) was then catheterized with a coaxially advanced 2.0 [place] Progreat microcatheter and angiogram was obtained. The [...] hepaticartery (beyond 3rd order) and angiogram. 7. [place] embolization of the segment 7 branch of [...] draped in the usual sterile fashion. A wash and greaser film of the abdomen was obtained, which [...] (1st order) was catheterized with a 5 [place] Sos Omni- 2catheter and angiogram was obtained. The angiogram demonstrated a normalhepatic branching pattern. An attempt was made to catheterize the commonhepatic artery with a 2.0 [place] Progreat microcatheter but was unsuccessful. Therefore, the Sos Omni 2catheter was exchanged for a 4 [place] Cobra catheter and advanced into theproper hepatic artery. Angiogram was performed with the catheter in theproper hepatic artery which showed antegrade flow in the right and left hepatic arteries. No definite tumorblush was identified. 3D Felicia CT was obtained following the injection of contrast with thecatheter in the proper hepatic artery. The data was sent to and analyzedat the [employer] work station. The study demonstrated nodular arterialenhancement in hepatic segment 7 at the dome superomedial to the ablation cavity. The right hepatic artery (beyond 3rd order) was then catheterized with acoaxially advanced 2.0 [place] Progreat microcatheter and angiogram wasobtained. The angiogram again demonstrated antegrade flow in branchvessels; the segment 7 branches were identified. The segment 7 branch of the right hepatic artery (beyond 3rd order) wasthen catheterized with the microcatheter and angiogram was obtained, whichshowed blood flow to the region of tumor identified on Felicia CT. This was then followed by embolization of the segment 7 branch [id number] micron Embospheres to near stasis. Post-embolization angiogram ofthe segment 7 branch showed satisfactory stasis. A sheath angiogram of the right common femoral artery was unremarkablewith femoral access away from the profunda. Hemostasis was achieved withan Angioseal closure device. A sterile dressing was applied. The patient tolerated the procedure well and [facility]. There were no [...] ORDERABLES * CREATININE BLOOD - POCT (IP) [facility] (05/30/2017) Only the most recent of2 resultswithin the time period is included. Creatinine POCT 0.85 0.3 - 1.3 mg/dL [facility] eGFR POCT 60 60 ml/min [facility] 05/30/2017 Jony Garcia MD LAB - POINT OF CARE ORDERABLES [facility] * CT PARENCHYMAL TISSUE ABLATION (03/06/2017 1:27 [...] by the injection with 1% Lidocaine. A [place] 15 probe (3 -4 cm ablation zone) [...] provided by the injection with 1%Lidocaine. A [place] 15 probe (3 -4 cm ablation zone) [...] by the injection with 1% Lidocaine. A [place] 15 probe (3 -4 cm ablation zone) [...] provided by the injection with 1%Lidocaine. A [place] 15 probe (3 -4 cm ablation zone) [...] time period is included. Unit Platelet Pheresis [id number] transfused [facility] B[facility] (BEAKER) Unit ABO B H BLOOD BANK PRODUCTS (BEAKER) Unit Rh POS H BLOOD [facility]ANK PRODUCTS (BEAKER) Unit Number [id number] [facility] (BEAKER) Unit Status Transfused [facility] BLO OD BANK PRODUCTS (BEAKER) Irradiated Platelet [id number] transfused [facility] (BEAKER) Unit ABO O H BLOOD BANK PRODUCTS (BEAKER) Unit Rh POS H BLOOD BANK PRODUCTS (BEAKER) Unit Number [id number] [facility] (BEAKER) Unit Status Transfused [facility] BLO OD BANK PRODUCTS (BEAKER) 03/06/2017 9:13 AM CDT 03/06/2017 9:21 AM CDT Narrative [facility] (BEAKER) - 03/06/2017 9:13 AM CDT # of Units->2 Cortessherrill Gomezam Zack Carr Asst LAB - BLO OD BANK ORDERABLES [facility] (BEAKER) * CULTURE AEROBIC (10/06/2016 12:07 AM DRILLER HAND) Culture Aerobic No Growth at 1 week [facility] Gram Stain Many Red Blood Cells [facility] Gram Stain No Organism Seen [facility] Fluid specimen (specimen) 10/06/2016 12:07 AM DRILLER HAND 10/06/2016 12:57 AM DRILLER HAND Narrative [facility] - 10/13/2016 2:58 PM DRILLER HAND Peritoneal fluid Specimen Type->Body Fluid Gram Stains are routinely screened for the presence of Polymorphonuclear Cells. Jerrell Brown MD LAB - [place] [address], [facility] [phone] * CULTURE ANAEROBE (10/06/2016 12:07 AM DRILLER HAND) Culture Anaerobic No Growth at 1 week [facility] Fluid specimen (specimen) 10/06/2016 12:07 AM DRILLER HAND 10/06/2016 12:57 AM DRILLER HAND Narrative [facility] - 10/15/2016 11:21 AM DRILLER HAND Peritoneal fluid Specimen Type->Body Fluid Jerrell Brown MD LAB - MICROBIOLOGY O NADIA Performing Organization Address [facility] [place] [address], [facility] [phone] * CT ABDOMEN PELVIS W CONTRAST (10/05/2016 6:34 PM DRILLER HAND) Anatomical Region Laterality Modality Abdomen, Pelvis Other Impressions 10/06/2016 12:07 PM [facility]LLER HAND IMPRESSION: 1. Indirect right inguinal hernia containing [...] 1752 hours. Dictated by Vivek Butler MD (resident services manager). I, Dr. LESLY FERMIN M.D. have personally reviewed and interpreted this examination/study. This report was electronically signed by LESLY FERMIN M.D. ??on 10/06/2016 12:07 PM . Narrative 10/06/2016 12:07 PM DRILLER HAND EXAMINATION: Computed tomography (CT) of the abdomen [...] [facility]. The gallbladder is [...] 1752 hours. Dictated by Vivek Butler MD (resident services manager). I, Dr. LESLY FERMIN M.D. have personally reviewed and interpreted thisexamination/study. This report was electronically signed by LESLY FERMIN M.D. on10/06/2016 12:07 PM . Piper Renner MD CT ORDERABLES * PURPLE TOP TUBE EXTRA (10/05/2016 5:17 PM DRILLER HAND) Extra Tube hold [facility] Blood specimen (specimen) BLOOD SPECIMEN / Unknown 10/05/2016 5:17 PM DRILLER HAND 10/05/2016 5:22 PM DRILLER HAND Piper Renner MD LAB - CHEMISTRY [facility] [address] [phone] * LIPASE BLOOD (09/12/2016 1:16 AM DRILLER HAND) Only the most recent of2 resultswithin the time period is included. Lipase 13 8 - 78 Units/L [facility] Blood specimen (specimen) BLOOD SPECIMEN / Unknown 09/12/2016 1:16 AM DRILLER HAND 09/12/2016 1:22 AM DRILLER HAND Demetrice Prado MD LAB - CHEMISTRY [facility] Performing Organization Address [facility] Co de Phone Number [address] [phone] * XR LUMBAR SPINE 2 OR 3VW (08/28/2016 1:16 PM DRILLER HAND) Only the most recent of2 resultswithin the time period is included. Anatomical Region Laterality Modality Spine Other Impressions 08/28/2016 3:32 PM DRILLER HAND IMPRESSION: 1. Redemonstration of an L1 compression fracture with interval progression of anterior height loss, now greater than 50 percent. 2. Multilevel degenerative changes. This report was electronically signed by DASHAWN SUE MD ??on 08/28/2016 3:32 PM . Narrative 08/28/2016 3:32 PM DRILLER HAND Exam: ??XR SPINE LUMBAR 2 OR 3 [...] DOPPLER AND COLOR FLOW (08/22/2016 12:00 AM DRILLER HAND) Anatomical Region Laterality Modality Other 08/22/2016 Mele Nevarez MD ECHOCARDIOGRAPHY RAD IANT * CT ANGIO BRAIN AND NECK (08/02/2016 12:18 PM DRILLER HAND) Anatomical Region Laterality Modality Head Other Impressions 08/03/2016 10:18 AM DRILLER HAND IMPRESSION: 1. No acute intracranial hemorrhage. 2. No large arterial occlusions or significant stenoses identified in the head or neck. I, Dr. STEVE ACOSTA M.D. have personally reviewed and interpreted this examination/study. This report was electronically signed by STEVE ACOSTA M.D. ??on 08/03/2016 10:18 AM . Narrative 08/03/2016 10:18 AM DRILLER HAND EXAMINATION: 1. Computed tomography (CT) of the [...] * XR CHEST 2VW (08/02/2016 11:49 AM DRILLER HAND) Anatomical Region Laterality Modality Chest Other Impressions 08/02/2016 4:55 PM DRILLER HAND Impression: Bibasilar atelectasis, right greater than left, with small left pleural effusion. This report has been dictated by Ramiro Ribera M.D. (Resident). Dr. LESLY Reyes M.D. have personally reviewed and interpreted this examination/study. This report was electronically signed by LESLY FERMIN M.D. ??on 08/02/2016 4:55 PM . Narrative 08/02/2016 4:55 PM DRILLER HAND Exam: XR CHEST PA AND LATERAL. Date: [...] RDERABLES * TROPONIN I (08/02/2016 10:25 AM DRILLER HAND) Troponin I <0.010 <0.032 ng/mL [facility] Blood specimen (specimen) BLOOD SPECIMEN / Unknown 08/02/2016 10:25 AM DRILLER HAND 08/02/2016 10:33 AM DRILLER HAND Paula Cuevas MD LAB - CHEMISTRY [facility] [address] [phone] * CK + CKMB PANEL (08/02/2016 10:25 AM DRILLER HAND) CK Total 72 30 - 200 Units/L [facility] CK-MB 2.0 0.0 - 6.6 ng/mL [facility] Blood specimen (specimen) BLOOD SPECIMEN / Unknown 08/02/2016 10:25 AM DRILLER HAND 08/02/2016 10:33 AM DRILLER HAND Paula Cuevas MD LAB - CHEMISTRY [facility] Performing Organization Address [facility] Co de Phone Number [address] [phone] * AMMONIA (08/02/2016 10:25 AM DRILLER HAND) Only the most recent of4 resultswithin the time period is included. Ammonia 43 11 - 64 umol/L [facility] Blood specimen (specimen) BLOOD SPECIMEN / Unknown 08/02/2016 10:25 AM DRILLER HAND 08/02/2016 10:33 AM DRILLER HAND Paula Cuevas MD LAB - CHEMISTRY [facility] Performing Organization Address [facility] Co de Phone Number [address] [phone] * CCL CATH LEFT HEART ARTERY GRAFT (07/30/2016 8:26 AM DRILLER HAND) Anatomical Region Laterality Modality X-Ray Angiograph y Narrative 07/30/2016 9:22 AM DRILLER HAND [facility] [facility] Note Patient: Robert Harrell Age: 60 y.o. Date of : 1955 Date of Admission: 07/30/16 Procedure Date: 07/30/16 FELLOW / CONTROL PANEL ASSEMBLER: Jaleel Trinidad MD; Jj Thomas MD ATTENDING [...] occlusion. Coronary angiography was performed using 6Fr [place] catheter. ??Left heart catheterization was performed using 6Fr [place] catheter. At the conclusion of the procedure, [...] ?? Modification of atherosclerotic risk factors. James Abo-Chelan, MD 07/30/2016 Dr. Terrell was present for the entirety of the described procedure. I was present for the entire procedure. James Terrell MD 07/30/2016/9:29 AM Procedure Note James Terrell MD - 02/14/2018 [facility] Cardiac Catheterization Procedure Note Patient: Robert Harrell Age: 60 y.o. Date of : 1955 Date of Admission: 07/30/16 Procedure Date: 07/30/16 FELLOW / CONTROL PANEL ASSEMBLER: Jaleel Trinidad MD; Jj Thomas MD ATTENDING [...] orocclusion. Coronary angiography was performed using 6Fr [place] catheter.Left heart catheterization was performed using 6Fr [place] catheter. At theconclusion of the procedure, hemostasis [...] MD 07/30/2016/9:29 AM Jerrell Brown MD CARDIAC ACTIONSCRIPT DEVELOPER RAD IANT * CT LIVER 3 PHASE W PELVIS (07/17/2016 10:49 AM DRILLER HAND) Anatomical Region Laterality Modality Abdomen Other Impressions 07/17/2016 5:17 PM DRILLER HAND IMPRESSION: 1. Arterially enhancing observation with washout [...] inguinal hernia. Dictated by Wilber Hall MD (resident services manager) This report was approved ??by Mele Hall ?? on 07/17/2016 5:09 PM . I, Dr. LESLY FERMIN M.D. have personally reviewed and interpreted this examination/study. This report was electronically signed by LESLY FERMIN M.D. ??on 07/17/2016 5:17 PM . Narrative 07/17/2016 5:17 PM DRILLER HAND EXAMINATION: Computed tomography (CT) of the abdomen [...] inguinal hernia. Dictated by Wilber Hall MD (resident services manager) This report was approved by Mele Hall on 07/17/2016 5:09 PM . I, Dr. LESLY FERMIN M.D. have personally reviewed and interpreted thisexamination/study. This report was electronically signed by LESLY FERMIN M.D. on07/17/2016 5:17 PM . Ramon Morales MD CT ORDERABLES * ALPHA FETOPROTEIN + AFP-L3 (07/09/2016 9:35 AM CDT) Alpha-Fetoprotein 2.1 1.6 - 4.5 ng/mL [facility] Viyfs-Ihhxrwpwkgt-U 3 SEE NOTE 0.5 - 9.9 % [facility] Comment: ?? NO VALUE DETERMINED The micro-total analysis system ([employer]) employs microchip capillary electrophoresis to quantitatively measure AFP and AFP-L3% by immunochemical techniques. The assay principle involves DNA-coupled antibodies and dye labeled antibodies, which react with proteins in liquid phase within the microchannels. Both analytes are quantified using laser-induced fluorescence. Instrument and associated reagents are supplied by [employer] [place], [place], [place]. Patients with elevated AFP-L3% values (>=10%) [...] can potentially cause an anomalous result. The [employer] System has been formulated to minimize the [...] HEPARIN, ARGATROBAN OR DABIGATRAN?->N Test Performed at: [facility] [address] [place] [place], [place] ??[address] REBECCA CHRISTIANSEN MD PHD Blood specimen (specimen) BLOOD SPECIMEN / Unknown 07/09/2016 9:35 AM CDT 07/09/2016 9:36 AM CDT Ramon Morales MD LAB - CHEMISTRY LUIS ENRIQUE CELIS [facility] ([facility]) * (ABNORMAL) BLOOD GASES ART - PFT (06/19/2016 11:15 AM CDT) pH Arterial 7.43 7.35 - 7.45 [facility] pCO2 Arterial 36 35 - 45 mmHg [facility] pO2 Arterial 77 71 - 95 mmHg [facility] HCO3 Arterial 23.7 22.0 - 26.0 mmol/L [facility] TCO2 Arterial 24.8(L) 25.0 - 29.0 mmol/L [facility] Base Excess Arterial 0.2 -2.0 - 2.0 mmol/L [facility] Hemoglobin Arterial 12.8(L) 13.5 - 17.5 g/dL [facility] Oxyhemoglobin Arterial 95.8 95.0 - 100.0 % [facility] Carboxyhemoglobin 2.2 0.0 - 3.0 % [facility] Methemoglobin 0.0 0.0 - 2.0 % [facility] FI O2 Arterial 20.9 % [facility] Blood specimen (specimen) ARTERY SPECIMEN / Unknown 06/19/2016 11:15 AM CDT 06/19/2016 11:46 AM CDT Narrative [facility] - 06/19/2016 11:47 AM CDT Room air (21%)->Yes FiO2->20.9 Liters/minute->0 Tino Santiago MD LAB - BLOOD GASES OR DERABLES [address] [phone] * MITOCHONDRIAL ANTIBODY SCREEN (06/19/2016 7:19 AM CDT) Only the most recent of2 resultswithin the time period is included. Mitochondrial M2 Antibody 12.1 0.0 - 20.0 Units [facility] Comment: Mitochondrial M2 Antibody Numeric Result Interpretation: ?<20.1 Units: ??Negative ?20.1 - 24.9 Units: ??Equivocal ?>24.9 Units: ??Positive ? Blood specimen (specimen) BLOOD SPECIMEN / Unknown 06/19/2016 7:19 AM CDT 06/19/2016 8:14 AM CDT Jerrell Brown MD LAB - CHEMISTRY LUIS ENRIQUE CELIS Performing Organization Address [facility]/ZIP Co de Phone Number [address] [phone] * (ABNORMAL) HEPATITIS A ANTIBODY (06/19/2016 7:19 AM CDT) Hepatitis A Virus Antibody Total Positive(A ) Negative [facility] ([place]) Blood specimen (specimen) 06/19/2016 7:19 AM CDT 06/19/2016 8:40 AM CDT Narrative [facility] ([place]) - 06/20/2016 6:16 AM CDT Performed at: ??01 - [facility] [address] ??[id number] Manager Programming: Tio Segal PhD, Phone: ??[phone] Jerrell Brown MD LAB - CHEMISTRY LUIS ENRIQUE CELIS [facility] ([place]) * SXDCQ-6-MNRVVOWTABH BLOOD PHENOTYPING PANEL (03/26/2016 8:53 AM CDT) Obupm-9-Muruiwkay in Phenotype SEE NOTE [facility] ([facility]) Comment: THIS PATIENT'S IGEFZ-3-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 90% of normal individuals have the MM phenotype, with normal quantitative AAT levels. Many phenotypic patterns have been described, including deficiency states with F, S, Z, or other alleles. As a general estimation, compared to M allele of 100% of normal Y-0-Xxbpaigpkvr protein, the S allele produces approximately 60% and the Z allele 20%. For example, an MS phenotype would have about 80% of normal E-2-Uxvpnkfmvpi protein level, a 50% contribution from the M allele and 30% from the S allele. A ZZ phenotype would have about 20% of normal levels, a 10% contribution from each Z gene. The F allele has normal L-6-Voumvdzhgth levels, but the kinetics of elastase inhibition [...] phenotype. REPORT COMMENT: FASTING:YES Test Performed at: [facility] [address] [place], [place] ??[address] REBECCA CHRISTIANSEN MD PHD 03/26/2016 8:53 AM CDT 03/26/2016 8:53 AM CDT Ramon Morales MD LAB - CHEMISTRY LUIS ENRIQUE CELIS [facility]) * (ABNORMAL) COPPER URINE (09/15/2015 1:16 PM DRILLER HAND) Copper Urine 13 Not Estab. ug/L [facility] ([place]) Comment:Detection Limit = 1 Creatinine Urine 0.73 0.30 - 3.00 g/L [facility] ([place]) Comment:Detection Limit = 0. 10 Copper/Creatini ne Ratio 18 0 - 49 ug/g creat [facility]) Copper 24 Hour Urine 0(L) 3 - 35 ug/24 hr [facility] ([facility]) Urine specimen (specimen) (Urine, unspecified source) 09/15/2015 1:16 PM DRILLER HAND 09/15/2015 2:04 PM DRILLER HAND Narrative [facility] ([facility]) - 09/20/2015 6:14 AM DRILLER HAND 24 Hour Urine for Copper. Performed at: ??01 - [address] ??[id number] Manager Programming: Peter Treadwell MD, Phone: ??[phone] Naomi You MD LAB - URINE CHEMISTR Y ORDERABLES Performing Organization Address City/[facility]/ZIP Co de Phone Number [facility] ([facility]) * (ABNORMAL) COPPER BLOOD (09/15/2015 12:02 AM DRILLER HAND) Copper 53(L) 72 - 166 ug/dL [facility] ([facility]) Comment:Detection Limit = 5 Blood specimen (specimen) BLOOD SPECIMEN / Unknown 09/15/2015 12:02 AM DRILLER HAND 09/15/2015 12:06 AM DRILLER HAND Narrative [facility] ([facility]) - 09/17/2015 6:14 AM DRILLER HAND Performed at: ??01 - [address] ??[id number] Manager Programming: Peter Treadwell MD, Phone: ??[phone] Naomi You MD LAB - CHEMISTRY ORDE RABLES [facility] ([facility]) * CORTISOL BLOOD AM (09/14/2015 4:58 AM DRILLER HAND) Cortisol AM 6.5 3.7 - 19.4 mcg/dL [facility] Blood specimen (specimen) BLOOD SPECIMEN / Unknown 09/14/2015 4:58 AM DRILLER HAND 09/14/2015 5:04 AM DRILLER HAND Naomi You MD LAB - CHEMISTRY LUIS ENRIQUE CELIS [address] [phone] * HEPATITIS B VIRUS DNA QUANT PCR (09/14/2015 12:14 AM DRILLER HAND) Hepatitis B Virus IU/mL Comment IU/mL [facility] Comment:HBV DNA not detected Hepatitis B Virus DNA (Log IU/mL) TNP sqs15XN/mL [facility] Comment: Unable to calculate result since non-numeric result obtained for component test. Test Information Comment [facility] Comment:The reportable range for this assay is 20 to 170,000,000 IU/mL 09/14/2015 12:1 4 AM DRILLER HAND 09/14/2015 12:23 AM DRILLER HAND Narrative [facility]) - 09/17/2015 5:08 PM DRILLER HAND Performed at: ??01 - [address] ??[id number] Manager Programming: ePter Treadwell MD, Phone: ??[phone] Naomi You MD LAB - SEROLOGY ORDER MAYRA Performing Organization Address City/[facility]/ZIP Co de Phone Number [facility] * HEMOCHROMATOSIS MUTATION PANEL (09/14/2015 12:14 AM DRILLER HAND) Pathologist [facility] Hemochromatosis Genotype Specimen: 3 ml Peripheral Blood Reference: [id number] Test: Hemochromatosis Genotyping RESULT Hemochromatosis Genotyping C282Y [...] determined by the DNA Diagnostic Laboratory at [facility]. It has not been cleared or approved [...] complexity clinical laboratory testing. Test performed at [facility], [address] [place] [address] ??[id number] This case has been personally reviewed and interpreted by the attending (teaching) pathologist. Final Diagnosis performed by Evelyn Santamaria MD. Electronically signed 09/15/2015 [facility] ([place]) Blood specimen (specimen) BLOOD SPECIMEN / Unknown 09/14/2015 12:14 AM DRILLER HAND 09/14/2015 12:21 AM DRILLER HAND Naomi You MD LAB - CHEMISTRY LUIS ENRIQUE CELIS [facility] ([place]) * (ABNORMAL) CERULOPLASMIN (09/14/2015 12:14 AM DRILLER HAND) Ceruloplasmin 16(L) 20 - 60 mg/dL [facility] Blood specimen (specimen) BLOOD SPECIMEN / Unknown 09/14/2015 12:14 AM DRILLER HAND 09/14/2015 12:23 AM DRILLER HAND Naomi You MD LAB - CHEMISTRY LUIS ENRIQUE CELIS Performing Organization Address [facility]/ZIP Co de Phone Number [address] [phone] * KZDPP-3-MTARFAJLXVC BLOOD (09/14/2015 12:14 AM DRILLER HAND) Only the most recent of2 resultswithin the time period is included. Akvnp-6-Nyvgnl ypsin 119 90 - 200 mg/dL [facility] Blood specimen (specimen) BLOOD SPECIMEN / Unknown 09/14/2015 12:14 AM DRILLER HAND 09/14/2015 12:23 AM DRILLER HAND Naomi You MD LAB - CHEMISTRY LUIS ENRIQUE CELIS Performing Organization Address [facility] Co de Phone Number [address] [phone] * IRON BLOOD (09/14/2015 12:14 AM DRILLER HAND) Iron 92 50 - 175 mcg/dL [facility] Blood specimen (specimen) BLOOD SPECIMEN / Unknown 09/14/2015 12:14 AM DRILLER HAND 09/14/2015 12:23 AM DRILLER HAND Naomi You MD LAB - CHEMISTRY LUIS ENRIQUE CELIS Performing Organization Address [facility] [place] [address], [facility] [phone] * OSMOLALITY URINE (09/12/2015 4:50 PM DRILLER HAND) Only the most recent of2 resultswithin the time period is included. Osmolality Urine 693 500 - 800 mOsm/kg [facility] Urine specimen (specimen) URINE SPECIMEN OBTAINED BY CLEAN CATCH PROCEDURE / Unknown 09/12/2015 4:50 PM DRILLER HAND 09/12/2015 4:58 PM DRILLER HAND Duran Wilhelm MD LAB - URINE CHEMISTR Y ORDERABLES Performing Organization Address [facility]/ZIP Co de Phone Number [address] [phone] * URIC ACID BLOOD (09/12/2015 1:35 PM DRILLER HAND) Uric Acid 4.3 2.6 - 7.2 mg/dL [facility] Blood specimen (specimen) BLOOD SPECIMEN / Unknown 09/12/2015 1:35 PM DRILLER HAND 09/12/2015 1:51 PM DRILLER HAND Duran Wilhelm MD LAB - CHEMISTRY LUIS ENRIQUE CELIS Performing Organization Address [facility] Co de Phone Number [address] [phone] * CORTISOL BLOOD PM (09/12/2015 1:35 PM DRILLER HAND) Cortisol PM 11.4 2.9 - 17.3 mcg/dL [facility] Blood specimen (specimen) BLOOD SPECIMEN / Unknown 09/12/2015 1:35 PM DRILLER HAND 09/12/2015 3:00 PM DRILLER HAND Naomi You MD LAB - CHEMISTRY LUIS ENRIQUE CELIS Performing Organization Address [facility] Co de Phone Number [address] [phone] * US ABDOMEN LIMITED (09/12/2015 12:12 PM DRILLER HAND) Anatomical Region Laterality Modality Abdomen Other Impressions 09/13/2015 3:01 PM DRILLER HAND IMPRESSION: 1. Hepatic cirrhosis. No discrete hepatic [...] 5:47 PM . Narrative 09/13/2015 3:01 PM DRILLER HAND EXAMINATION: 1. Limited abdominal sonogram 2. Color [...] * (ABNORMAL) OSMOLALITY BLOOD (09/11/2015 11:45 PM DRILLER HAND) Only the most recent of2 resultswithin the time period is included. Osmolality 269(L) 270 - 300 mOsm/kg [facility] Blood specimen (specimen) BLOOD SPECIMEN / Unknown 09/11/2015 11:45 PM DRILLER HAND 09/12/2015 12:11 AM DRILLER HAND Scott Lee MD LAB - CHEMISTRY ORDE RABLES Performing Organization Address City/[facility]/ZIP Co de Phone Number [address] [phone] * SODIUM URINE RANDOM (09/11/2015 9:47 PM DRILLER HAND) Sodium Urine 49 Not Established mmol/L [facility] Urine specimen (specimen) URINE / Unknown 09/11/2015 9:47 PM DRILLER HAND 09/11/2015 9:47 PM DRILLER HAND Scott Lee MD LAB - URINE CHEMISTR Y ORDERABLES Performing Organization Address [facility] Co de Phone Number [address] [phone] * UREA NITROGEN URINE RANDOM (09/11/2015 9:47 PM DRILLER HAND) Urea Nitrogen Random Urine 776 Not Established mg/dL [facility] Urine specimen (specimen) URINE / Unknown 09/11/2015 9:47 PM DRILLER HAND 09/11/2015 9:47 PM DRILLER HAND Scott Lee MD LAB - URINE CHEMISTR Y ORDERABLES Performing Organization Address [facility] Co de Phone Number [address] [phone] * CREATININE URINE RANDOM (09/11/2015 9:47 PM DRILLER HAND) Creatinine Urine 131 Not Established mg/dL [facility] Comment:Result obtained by prema zepeda. Urine specimen (specimen) URINE / Unknown 09/11/2015 9:47 PM DRILLER HAND 09/11/2015 9:47 PM DRILLER HAND Scott Lee MD LAB - URINE CHEMISTR Y ORDERABLES Performing Organization Address [facility] de Phone Number [address] [phone] * CULTURE URINE (09/11/2015 9:37 PM DRILLER HAND) Culture Urine No Growth of >=100 CFU/ml after 48 Hours [facility] Urine specimen (specimen) URINE / Unknown 09/11/2015 9:37 PM DRILLER HAND 09/11/2015 9:46 PM DRILLER HAND Narrative [facility] - 09/14/2015 11:59 AM DRILLER HAND Specimen Type->Urine Scott Lee MD LAB - MICROBIOLOGY O RDERABLES Performing Organization Address [facility] de Phone Number [address] [phone] * (ABNORMAL) JARROD BLOOD SCREEN (09/11/2015 10:47 AM DRILLER HAND) JARROD Positive(A ) None Detected [facility] Venous blood specimen (specimen) 09/11/2015 10:47 AM DRILLER HAND 09/11/2015 10:52 AM DRILLER HAND Scott eLe MD LAB - CHEMISTRY ORDE RABLES Performing Organization Address [facility] de Phone Number [address] [phone] * JARROD BLOOD SCREEN W/REFLEX TITER (09/11/2015 10:47 AM DRILLER HAND) JARROD IFA Negative [facility] ([place]) Comment: ? Negative ?? <1:80 ? Borderline ??1:80 ? Positive ?? >1:80 Venous blood specimen (specimen) BLOOD SPECIMEN / Unknown 09/11/2015 10:47 AM DRILLER HAND 09/12/2015 11:43 AM DRILLER HAND Narrative [facility] ([place]) - 09/13/2015 5:11 PM DRILLER HAND Performed at: ?? - [address] ??[id number] Manager Programming: Tio Segal PhD, Phone: ??[phone] Scott Lee MD LAB - CHEMISTRY ORDSherrill CELIS Performing Organization Address [facility] Co de Phone Number [facility] * SMOOTH MUSCLE ANTIBODY (09/11/2015 10:46 AM DRILLER HAND) F-Actin Antibody IgG 17.9 0.0 - 19.9 Units [facility] Comment: F-Actin Antibody Numeric Result Interpretation: ?<20.0 Units: ??Negative ?20.0 - 30.0 Units: ??Weak Positive ?>30.0 Units: ??Moderate to Strong Positive ? Blood specimen (specimen) BLOOD SPECIMEN / Unknown 09/11/2015 10:46 AM DRILLER HAND 09/11/2015 10:52 AM DRILLER HAND Scott Lee MD LAB - SEROLOGY ORDER MAYRA Performing Organization Address [facility]/ZIP Co de Phone Number [address] [phone] * (ABNORMAL) HEPATITIS B SURFACE ANTIBODY (09/11/2015 10:46 AM DRILLER HAND) Pathologist [facility] Hepatitis B Virus Surface Antibody Reactive( A) Non-react [facility] Comment: > 12 mIU/mL Hepatitis B surface Antibody (HBsAb). Reactive for HBsAb - individual is considered immune to Hepatitis B Virus infection. Hepatitis B Surface Antibody Quantitative 76.9(H) <8.0 mIU/mL [facility] Comment: Hepatitis B Surface Antibody Numeric Result Interpretation: ? Nonreactive: ?<8.0 mIU/mL ? Indeterminate: ??8.0 - 12.0 mIU/mL ? Reactive: ?>12.0 mIU/mL ? Blood specimen (specimen) BLOOD SPECIMEN / Unknown 09/11/2015 10:46 AM DRILLER HAND 09/11/2015 10:52 AM DRILLER HAND Scott Lee MD LAB - CHEMISTRY LUIS ENRIQUE CELIS Performing Organization Address [facility] Co de Phone Number [address] [phone] * HEPATITIS C ANTIBODY (09/11/2015 10:46 AM DRILLER HAND) [facility] Hepatitis C Antibody Non-react [facility] Comment: Hepatitis C Antibody screen indicates no serologic evidence of past or current infection with Hepatitis C Virus. Patients with unexplained liver disease who are immunocompromised or suspected of having acute Hepatitis C infection may benefit from Nucleic Acid Test (ERUM) for Hepatitis C Viral RNA to confirm Hepatitis C status. Blood specimen (specimen) BLOOD SPECIMEN / Unknown 09/11/2015 10:46 AM DRILLER HAND 09/11/2015 10:52 AM DRILLER HAND Scott Lee MD LAB - CHEMISTRY LUIS ENRIQUE CELIS Performing Organization Address [facility] Co de Phone Number [address] [phone] * CULTURE BLOOD (09/11/2015 2:55 AM DRILLER HAND) Only the most recent of2 resultswithin the time period is included. Culture Blood No Growth at 5 days [facility] Blood specimen (specimen) 09/11/2015 2:55 AM DRILLER HAND 09/11/2015 3:00 AM DRILLER HAND Narrative [facility] - 09/16/2015 3:15 AM DRILLER HAND Draw 15 minutes after Culture 1 from a different site Scott Lee MD LAB - MICROBIOLOGY O RDERABLES [address] [phone] Care Teams Director Specialty Relationship Specialty Start Date End Date Sharri Argueta DO [address] [place] [address] PCP - General 10/23/20 Qi Story, RN Registered Nurse 10/28/20
--- OUTSIDE RECORDS SUMMARY | 2024-10-06 13:40 | XMS_ITS | Clinical Summary ---
Author Organization [facility] Address [address] [facility] [place] [place] [phone] Phone Care Team Providers Care Rn Vascular Name Role Phone Unavailable Primary Care Provider [...] on file Legal Sex Male 7:29 AM SIGNAL OPERATOR Gender Identity Not on file Sexual Orientation [...] cm (6' 1 ) 11/14/2017 8:00 PM SIGNAL OPERATOR Body Mass Index 32.06 11/14/2017 8:00 PM SIGNAL OPERATOR Plan of Treatment Health Maintenance Due Date [...] Comments LIPID PANEL Routine 11/15/2017 5:52 AM SIGNAL OPERATOR HEMOGLOBIN A1C Routine 11/15/2017 5:52 AM SIGNAL OPERATOR from Last 3 Months or Most Recently Relevant to Health Maintenance Results * HEMOGLOBIN A1C (11/15/2017 5:52 AM SIGNAL OPERATOR) HEMOGLOBIN A1C 6.0 4.0 - 6.0 % 11/15/2017 11:36 AM [facility] [employer] [facility] EST. AVG GLUCOSE, A1C 126 mg/dL 11/15/2017 11:36 AM [facility] [employer] [facility] Blood Venipuncture / Unknown 11/15/2017 5:52 AM SIGNAL OPERATOR 11/15/2017 10:35 AM SIGNAL OPERATOR Zackary Alfonso [facility] CHEMISTRY ORDERABLES F inal Result [facility] [employer] [facility] CLIA# [id number] [address] [facility] [place] [phone] * (ABNORMAL) LIPID PANEL (11/15/2017 5:52 AM SIGNAL OPERATOR) CHOLESTEROL 119 <200 mg/dL 11/15/2017 11:33 AM [facility] [employer] [facility] TRIGLYCERIDE 121 <150 mg/dL 11/15/2017 11:33 AM [facility] [employer] [facility] HDL 24(L) 40 - 59 mg/dL 11/15/2017 11:33 AM [facility] [employer] [facility] LDL CALCULATED 71 <100 mg/dL 11/15/2017 11:33 AM [facility] [employer] [facility] NON-HDL CHOLESTEROL 95 <130 mg/dL 11/15/2017 11:33 AM [facility] [employer] [facility] Blood Venipuncture / Unknown 11/15/2017 5:52 AM SIGNAL OPERATOR 11/15/2017 10:35 AM SIGNAL OPERATOR Narrative [facility] - 11/15/2017 11:33 AM SIGNAL OPERATOR TOTAL CHOLESTEROL ??mg/dL ??Desirable <200 ??Borderline high [...] Alfonso DMS CHEMISTRY ORDERABLES F inal Result [facility]# [id number] [address] [place] [id number] from Last 3 Months or Most Recently Relevant to Health Maintenance Insurance [employer] PREF[employer]ED Advance Directives For more information, please contact: [phone] * Full Code (Latest Code Status on File) Date Activated Date Inactivated Comments 11/14/2017 12:56 PM 11/21/2017 1:27 PM
--- OUTSIDE RECORDS SUMMARY | 2024-10-06 13:40 | XMS_ITS | Encounter Summary ---
Author Organization [facility] Address [address] [place] [address] Care Team Providers Care Legal Clerk Name Role Phone Sharri Argueta DO Primary Care Provider [phone] Qi Story RN Unavailable Unavailable Encounter Details Date Type Department Care Team (Latest Contact Info) Description 10/02/2024 Orders Only [facility] - [address] [phone] Ramon Morales MD [address] [place] [address] OF [place]STRO[place]OLOGY [place], [place] [id number] Long-term use of immunosuppressant medication; S/P liver transplant (HCC) Social History Tobacco Use Types Packs/Day Years Used Date Smoking Tobacco: Former Cigarettes Q uit: 09/11/1983 Smokeless Tobacco: Never Alcohol Use Standard Drinks/Week Comments No 0 (1 standard drink = 0.6 oz pur e alcohol) Sex and Gender Information Value Date Recorded Sex Assigned at Not on file Gender Identity Not on file Sexual Orientation Straight 07/31/2024 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 documented as of this encounter Plan of Treatment Upcoming Encounters Date Type Department Care Team (Late st Contact Info) Description 02/02/2025 12:00 PM CDT Office Visit [facility] - GI [address] [place] [address] Ramon Morales MD [address] [place] [address] 03/11/2025 1:20 PM CDT Office Visit [facility] - Dermatology [address] [facility], [place] [phone] Bernard Baca MD [address] [facility] [place] [phone] documented as of this encounter Goals Goal Patient Goal Type Associated Problems Recent Progress Patient-Stated? Author Medication Management General On track( 023 1:11 PM CDT) Ayah Kilgore, RN Note: Expected end date: ongoing Interventions: Take all medications as prescribed documented as of this encounter Visit Diagnoses Diagnosis Long-term use of immunosuppressant medication Encounter for long-term (current) use of other medications S/P liver transplant (HCC) Liver replaced by transplant documented in this encounter Care Teams Legal Clerk Relationship Specialty Start Date End Date Sharri Argueta DO [address] [place] [address] PCP - General 10/23/20 Qi Story, RN Registered Nurse 10/28/20 documented as of this encounter
--- OUTSIDE RECORDS SUMMARY | 2024-10-06 13:40 | XMS_ITS | Referral Summary ---
Author Organization [facility] Address [address] [place] [address] Care Team Providers Care Cytogenetics Laboratory Manager Name Role Phone Sharri Argueta DO Primary Care Provider [phone] Qi Story RN Unavailable Unavailable Source Comments [facility],non-owned Affiliates and Associated Physician Practices is amultiple site organization consisting of ambulatory clinics and hospital sitesin [place], [place] and [place]. This disclosure is being madepursuant to the Care Everywhere program and may not contain all information available regarding this patient. Last updated 18.[facility] Encounters Date Type Department Care Team Description 10/02/2024 Orders Only [facility] - GI [address] [place] [phone] Ramon Morales MD Long-term use of immunosuppressant medication; S/P liver transplant (HCC) 09/14/2024 Refill [facility] - GI [address] [place] [phone] Ramon Morales MD MEDICATION REFILL 08/28/2024 Telephone [facility] - Nephrology [address] [place] [phone] Ramon Morales MD Surgery Scheduling 07/29/2024 Refill [facility] [address] [place] [address] Ramon Morales MD Refill Request 07/21/2024 Travel 07/21/2024 1:00 PM REFRIGERATION ENGINEER Office Visit [facility] - [address] [phone] Ramon Morales MD S/P liver transplant (HCC) (Primary Dx); Long-term use of immunosuppressant medication; Benign essential HTN; IPMN (intraductal papillary mucinous neoplasm) 07/10/2024 Orders Only [facility] - [address] [phone] Ramon Morales MD Long-term use of immunosuppressant [...] 021 Assessment & Plan (11/04/2020 12:02 PM REFRIGERATION ENGINEER): -L ankle/foot -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 -start TAC oint BID PRN w wet wraps, instructions provided Multiple benign melanocytic nevi of upper extremity, lower extremity, and trunk 11/04/2020 Assessment & Plan (11/04/2020 12:01 PM REFRIGERATION ENGINEER): - None atypical or more concerning than others on exam today - Counseled on importance of daily sun protection, and monthly self skin exams - Reviewed ABCDEs of melanoma - Advised sun protective behaviors and regular sun screen use - Annual FBSE Lentigines 11/04/2020 Assessment & Plan (11/04/2020 12:01 PM REFRIGERATION ENGINEER): -Benign, reassurance Other specified dermatitis 11/04/2020 Seborrheic keratosis 11/04/2020 Neutropenia 10/28/2020 History of hepatocellular carcinoma 11/20/2018 Long-term use of immunosuppressant medication Benign essential HTN 08/28/2018 IPMN (intraductal papillary mucinous neoplasm) 0 05/23/2018 Fatty pancreas 05/08/2018 Right inguinal hernia 05/08/2018 Overview (05/08/2018): Indirect Diabetes mellitus type 2, uncontrolled 8 Pre-transplant evaluation for liver transplant 0 12/23/2017 Overview (12/23/2017): LISTED Diagnosis: BRADSHAW/HCC Referring Environmental Marketing Representative: Andrew Alert: Will need renoportal at the [...] It is the impression of this social worker assistant that Robert Harrell has several positive factors for Liver transplant candidacy including knowledge of illness, sufficient insurance coverage, stable financial situation for post transplant needs, and no concerns regarding substance abuse. ?? SW concerns are patient's support system and discharge plan. ?? Plan:?? pipe production worker to provide supportive services as needed. Patient appears to be a reasonable candidate for transplant from a psychosocial perspective, pending: ?? - Post transplant arrangement forms are needed prior to being listed, with confirmation. ? Psychiatric Consult Recommended: No? Transplant Coal Cutting Machine Operator:?? MIKY OVERTON?? RD: 24 Hour Recall/food frequency: eggs, chocolate milk, salad, spaghetti, hamburger, [place] - loaiza seared, mash potatoes, broccoli, corn cauliflower, apples, ham and [place]ay[place] islander, lettuce and tomato sandwich, Ramen noodles about [...] Transplant Date: 11/03/2017 Donor: Standard criteria donor [id number] CMV D-/R-, EBV D+/R+ Pre-Transplant Summary: ESLD [...] PCP Adjustments: Readmissions: Biopsies: Explant Liver, explant, nome hepatectomy (A): - Cirrhosis (history of BRADSHAW) - Completely necrotic nodule in right lobe (4.0 cm) - Macroregenerative nodules, multifocal - Focal dysplasia (small and large cell changes) - Hepatocellular iron focally up to 4+ - No viable hepatocellular carcinoma identified Gallbladder, nome hepatectomy (A): - Mild chronic cholecystitis Gallbladder, [...] cirrhosis. The PAS-D stain is negative for dmhdd-1-dmppgbraplv globules. The iron stain shows granular hepatocellular [...] from the prior study (LR 3).?? 2. Bkxbbq-czyjh-ntnovk venous anastomosis, with unchanged aneurysmal dilatation at [...] liver without washout (LR 3). 2. Patent bgmhlo-cjyzq-bounaa venous anastomosis, with unchanged aneurysmal dilatation of [...] recommended. Assessment & Plan (11/04/2020 12:01 PM REFRIGERATION ENGINEER): -discussed inc risk NMSC/MM - Reviewed ABCDEs [...] 12/23/2017 Immunizations Name Administration Dates Next Due Invoiceable primary monoval ent 12+ yr 0.3mL Purple [...] Sexual Orientation Straight 07/31/2024 7: 47 PM REFRIGERATION ENGINEER Last Filed Vital Signs Vital Sign Reading Time Taken Comments Blood Pressure 137/83 07/21/2024 1:48 PM REFRIGERATION ENGINEER Pulse 74 07/21/2024 1:48 PM REFRIGERATION ENGINEER Temperature 36.4 ??C (97.5 ??F) 05/31/2023 1:01 PM CD T Respiratory Rate 18 07/21/2024 1:48 PM REFRIGERATION ENGINEER Oxygen Saturation 99% 07/21/2024 1:48 PM REFRIGERATION ENGINEER Inhaled Oxygen Concentration - - Weight 93.7 kg (206 lb 9.6 oz) 07/21/2024 1:48 P M REFRIGERATION ENGINEER Height 182.9 cm (6') 07/21/2024 1:48 PM REFRIGERATION ENGINEER Body Mass Index 28.02 07/21/2024 1:48 PM REFRIGERATION ENGINEER Plan of Treatment Upcoming Encounters Date Type Department Care Team (Late st Contact Info) Description 02/02/2025 12:00 PM CDT Office Visit [facility] - GI [address] [facility], [place] [phone] Ramon Morales MD [address] [address] 03/11/2025 1:20 PM CDT Office Visit [facility] - Dermatology [facility] [place] [phone] Bernard Baca MD [address] [place] [phone] Goals Goal Patient Goal Type Associated Problems Recent Progress Patient-Stated? Author Medication Management General On track( 023 1:11 PM CDT) No Ayah Coleman, RN Note: Expected end date: ongoing Interventions: Take all medications as prescribed Procedures Procedure Name Priority Date/Time Associated Diagnosis Comments TACROLIMUS LEVEL Routine 07/15/2024 8:06 AM REFRIGERATION ENGINEER Long-term use of immunosuppressant medication S/P liver transplant (HCC) COMPREHENSIVE METABOLIC PANEL Routine 07/15/2024 8:06 AM REFRIGERATION ENGINEER Long-term use of immunosuppressant medication S/P liver transplant (HCC) CBC W AUTO DIFFERENTIAL Routine 07/15/2024 8:06 AM REFRIGERATION ENGINEER Long-term use of immunosuppressant medication S/P liver transplant (HCC) ENDOSCOPY, COLON, SCREENING Routine 04/04/2020 9:37 AM CDT HEMOGLOBIN A1C 03/14/2020 8:46 AM CDT HEPATITIS C ANTIBODY Routine 09/11/2015 10:46 AM REFRIGERATION ENGINEER from Last 3 Months or Most Recently Relevant to Health Maintenance Results * TACROLIMUS LEVEL (07/15/2024 8:06 AM REFRIGERATION ENGINEER) Tacrolimus 6.2 mcg/L [facility] Comment: No definitive therapeutic or toxic ranges have been established. Optimal blood drug levels are influenced by type of transplant, patient response, time post- transplant, co-administration of other drugs, and drug formulation. The following trough range is a suggested guideline: 5.0-20.0 mcg/L. Test Performed at: [facility] [address] [facility] [place] [facility] [place] ??[phone] KAMAR ALEXANDRE MD Blood BLOOD SPECIMEN / Unknown 07/15/2024 8:06 AM REFRIGERATION ENGINEER 07/15/2024 8:07 AM REFRIGERATION ENGINEER Ramon Morales MD LAB - THERAPEUTIC DR NICK MONITORING ORDERABLES [facility] [address] [place] [address] * (ABNORMAL) CBC WITH DIFFERENTIAL (07/15/2024 8:06 AM REFRIGERATION ENGINEER) White Blood Cell Count 3.6(L) 3.8 - [...] 0.6 % [facility] Comment: Test Performed at: [facility] [address] [place], [place] ??[address] KAMAR ALEXANDRE MD Blood BLOOD SPECIMEN / Unknown 07/15/2024 8:06 AM REFRIGERATION ENGINEER 07/15/2024 8:07 AM REFRIGERATION ENGINEER Ramon Morales MD LAB - HEMATOLOGY ORD ERABLES [facility] [address] [place] [address] * (ABNORMAL) COMPREHENSIVE METABOLIC PANEL (07/15/2024 8:06 AM REFRIGERATION ENGINEER) Glucose 149(H) 65 - 99 mg/dL [facility] [...] [facility] BUN/Creatinine Ratio SEE NOTE: 6 - (calc) [facility] Comment: ?? Not Reported: BUN [...] 46 U/L [facility] Comment: Test Performed at: [facility] [address] [place], [place] ??[address] KAMAR ALEXANDRE MD Blood BLOOD SPECIMEN / Unknown 07/15/2024 8:06 AM REFRIGERATION ENGINEER 07/15/2024 8:07 AM REFRIGERATION ENGINEER Ramon Morales MD LAB - CHEMISTRY LUIS ENRIQUE CELIS Performing Organization Address City/State/ZIP Co ct Phone Number [facility] [phone] [place] [address] * ENDOSCOPY, COLON, SCREENING (04/04/2020 9:37 AM [...] Anesthesia Care Comorbidities ? OLT 11/03/17 for BRASDHAW cirrhosis complicated by HCC. ?Colonoscopy 12/2018: fair [...] and ?oxygen saturations were monitored continuously. The ?[id number] was introduced through the anus and ?advanced to the cecum, identified by appendiceal ?orifice and ileocecal valve. The colonoscopy was ?performed without difficulty. The patient tolerated ?the procedure well. The quality of the bowel ?preparation was evaluated using the BBPS (Farrell ?Bowel Preparation Scale) with scores of: Right [...] Procedure Code(s): ? --- Professional --- ? 47636, Colonoscopy, flexible; with removal of tumor(s), polyp(s), or ? other lesion(s) by snare technique ? 82069, 59, Colonoscopy, flexible; with biopsy, single or multiple Diagnosis Code(s): ?--- Professional --- ?Z12.11, Encounter for screening for malignant ?neoplasm of colon ?K63.5, Polyp of colon ?K62.1, Rectal polyp CPT copyright 2019 [employer]. All rights reserved. The codes documented in this report are preliminary and upon power shear operator review may be revised to meet current compliance requirements. _ Ramon Morales MD 04/04/2020 10:34:35 AM This report has been signed electronically. Note Initiated On: 04/04/2020 9:37 AM Number of Addenda: 0 ? [facility] ? [address] [place] [address] [facility] [employer] 04/04/2020 9:37 AM CDT Elda Rashid MD GI PROCEDURE ORDERAB LES [facility] [employer] * (ABNORMAL) HEMOGLOBIN A1C (03/14/2020 8:46 [...] of diabetes for children. Test Performed at: [facility] [address] [facility] [place] ??[address] OMARI HOFFMANN DO,MPH 03/14/2020 8:46 AM CDT 03/14/2020 8:47 AM CDT Ramon Morales MD LAB - CHEMISTRY LUIS ENRIQUE CELIS [facility] [address] [place] [address] * HEPATITIS C ANTIBODY (09/11/2015 10:46 AM REFRIGERATION ENGINEER) Hepatitis C Antibody Non-react [facility] Comment: Hepatitis C Antibody screen indicates no serologic evidence of past or current infection with Hepatitis C Virus. Patients with unexplained liver disease who are immunocompromised or suspected of having acute Hepatitis C infection may benefit from Nucleic Acid Test (ERUM) for Hepatitis C Viral RNA to confirm Hepatitis C status. Blood specimen (specimen) BLOOD SPECIMEN / Unknown 09/11/2015 10:46 AM REFRIGERATION ENGINEER 09/11/2015 10:52 AM REFRIGERATION ENGINEER Scott Lee MD LAB - CHEMISTRY LUIS ENRIQUE CELIS [facility] [address] [place] [address] from Last 3 Months or Most Recently Relevant to Health Maintenance Advance Directives Documents on File Type Date Recorded Patient Protective Services Social Worker Expl anation Advance Directives and Livin g Will 07/17/2016 12:00 AM Advance Directives and Livin g Will 09/11/2015 12:00 AM Care Teams Cytogenetics Laboratory Manager Relationship Specialty Start Date End Date Sharri Argueta DO [address] [place] [address] PCP - General 10/23/20 Qi Story, RN Registered Nurse 10/28/20
--- OUTSIDE RECORDS SUMMARY | 2024-10-06 13:40 | XMS_ITS | Clinical Summary ---
Author Organization [facility] [employer] Address [address] [place] [address] Care Team Providers Care Loan Interviewer Mortgage Name Role Phone Sharri Argueta DO Primary Care Provider [phone] Qi Story RN Unavailable Unavailable Source Comments [facility],non-owned Affiliates and Associated Physician Practices is amultiple site organization consisting of ambulatory clinics and hospital sitesin [place], [place], [place] and [place]. This disclosure is being madepursuant to the Care Everywhere program and may not contain all information available regarding this patient. 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 -start TAC oint BID PRN w wet wraps, instructions provided Multiple benign melanocytic nevi of upper extremity, lower extremity, and trunk 11/04/2020 Assessment & Plan (11/04/2020 12:01 PM TOOL MAINTENANCE TECHNICIAN): - None atypical or more concerning than others on exam today - Counseled on importance of daily sun protection, and monthly self skin exams - Reviewed ABCDEs of melanoma - Advised sun protective behaviors and regular sun screen use - Annual FBSE Lentigines 11/04/2020 Assessment & Plan (11/04/2020 12:01 PM TOOL MAINTENANCE TECHNICIAN): -Benign, reassurance Other specified dermatitis 11/04/2020 Seborrheic keratosis 11/04/2020 Neutropenia 10/28/2020 History of hepatocellular carcinoma 11/20/2018 Long-term use of immunosuppressant medication Benign essential HTN 08/28/2018 IPMN (intraductal papillary mucinous neoplasm) 0 05/23/2018 Fatty pancreas 05/08/2018 Right inguinal hernia 05/08/2018 Overview (05/08/2018): Indirect Diabetes mellitus type 2, uncontrolled 8 Pre-transplant evaluation for liver transplant 0 12/23/2017 Overview (12/23/2017): LISTED Diagnosis: BRADSHAW/HCC Referring Lap Machine Operator: Andrew Alert: Will need renoportal at the [...] It is the impression of this social sciences lecturer that Robert Harrell has several positive factors for Liver transplant candidacy including knowledge of illness, sufficient insurance coverage, stable financial situation for post transplant needs, and no concerns regarding substance abuse. ?? SW concerns are patient's support system and discharge plan. ?? Plan:?? transit worker to provide supportive services as needed. Patient appears to be a reasonable candidate for transplant from a psychosocial perspective, pending: ?? - Post transplant arrangement forms are needed prior to being listed, with confirmation. ? Psychiatric Consult Recommended: No? Transplant Machinery Mechanic:?? MIKY OVERTON?? RD: 24 Hour Recall/food frequency: eggs, chocolate milk, salad, spaghetti, hamburger, [place] - loaiza seared, mash potatoes, broccoli, corn cauliflower, apples, ham and turkish, lettuce and tomato sandwich, Ramen noodles about [...] Transplant Date: 11/03/2017 Donor: Standard criteria donor [id number] CMV D-/R-, EBV D+/R+ Pre-Transplant Summary: ESLD [...] PCP Adjustments: Readmissions: Biopsies: Explant Liver, explant, [place] hepatectomy (A): - Cirrhosis (history of BRADSHAW) - Completely necrotic nodule in right lobe (4.0 cm) - Macroregenerative nodules, multifocal - Focal dysplasia (small and large cell changes) - Hepatocellular iron focally up to 4+ - No viable hepatocellular carcinoma identified Gallbladder, [place] hepatectomy (A): - Mild chronic cholecystitis Gallbladder, [...] cirrhosis. The PAS-D stain is negative for ffeer-6-emabcfrynwm globules. The iron stain shows granular hepatocellular [...] from the prior study (LR 3).?? 2. Vbysje-phcql-mbpfsn venous anastomosis, with unchanged aneurysmal dilatation at [...] liver without washout (LR 3). 2. Patent wznchy-dgwnz-sfxfbr venous anastomosis, with unchanged aneurysmal dilatation of [...] recommended. Assessment & Plan (11/04/2020 12:01 PM TOOL MAINTENANCE TECHNICIAN): -discussed inc risk NMSC/MM - Reviewed ABCDEs [...] Department Care Team Description 10/02/2024 Orders Only [facility] - GI [address] [place] [phone] Ramon Morales MD Long-term use of immunosuppressant medication; S/P liver transplant (HCC) 09/14/2024 Refill [facility] - GI [address] [place] [phone] Ramon Morales MD MEDICATION REFILL 08/28/2024 Telephone [facility] - Nephrology [address] [place] [phone] Ramon Morales MD Surgery Scheduling 07/29/2024 Refill [facility] [address] [address] [place] [phone] Ramon Morales MD Refill Request 07/21/2024 1:00 PM TOOL MAINTENANCE TECHNICIAN Office Visit [facility] - [address] [phone] Ramon Morales MD S/P liver transplant (HCC) (Primary Dx); Long-term use of immunosuppressant medication; Benign essential HTN; IPMN (intraductal papillary mucinous neoplasm) 07/21/2024 Travel 07/10/2024 Orders Only [facility] - [address], [place] [phone] Ramon Morales MD Long-term use of immunosuppressant medication; S/P liver transplant (HCC) from Last 3 Months Immunizations Name Administration Dates Next Due CovCurazy primary monoval ent 12+ yr 0.3mL Purple [...] Sexual Orientation Straight 07/31/2024 7: 47 PM TOOL MAINTENANCE TECHNICIAN Last Filed Vital Signs Vital Sign Reading Time Taken Comments Blood Pressure 137/83 07/21/2024 1:48 PM TOOL MAINTENANCE TECHNICIAN Pulse 74 07/21/2024 1:48 PM TOOL MAINTENANCE TECHNICIAN Temperature 36.4 ??C (97.5 ??F) 05/31/2023 1:01 PM CD T Respiratory Rate 18 07/21/2024 1:48 PM TOOL MAINTENANCE TECHNICIAN Oxygen Saturation 99% 07/21/2024 1:48 PM TOOL MAINTENANCE TECHNICIAN Inhaled Oxygen Concentration - - Weight 93.7 kg (206 lb 9.6 oz) 07/21/2024 1:48 P M TOOL MAINTENANCE TECHNICIAN Height 182.9 cm (6') 07/21/2024 1:48 PM TOOL MAINTENANCE TECHNICIAN Body Mass Index 28.02 07/21/2024 1:48 PM TOOL MAINTENANCE TECHNICIAN Plan of Treatment Upcoming Encounters Date Type Department Care Team (Late st Contact Info) Description 02/02/2025 12:00 PM CDT Office Visit [facility] - GI [address] [place] [phone] Ramon Morales MD [facility] [place] [address] 03/11/2025 1:20 PM CDT Office Visit [facility] - Dermatology [address] [place] [phone] Bernard Baca MD [address] [facility] [place] [phone] Health Maintenance Due Date Last Done Comments [...] Comments TACROLIMUS LEVEL Routine 07/15/2024 8:06 AM TOOL MAINTENANCE TECHNICIAN Long-term use of immunosuppressant medication S/P liver transplant (HCC) COMPREHENSIVE METABOLIC PANEL Routine 07/15/2024 8:06 AM TOOL MAINTENANCE TECHNICIAN Long-term use of immunosuppressant medication S/P liver transplant (HCC) CBC W AUTO DIFFERENTIAL Routine 07/15/2024 8:06 AM TOOL MAINTENANCE TECHNICIAN Long-term use of immunosuppressant medication S/P liver transplant (HCC) ENDOSCOPY, COLON, SCREENING Routine 04/04/2020 9:37 AM CDT HEMOGLOBIN A1C 03/14/2020 8:46 AM CDT HEPATITIS C ANTIBODY Routine 09/11/2015 10:46 AM TOOL MAINTENANCE TECHNICIAN from Last 3 Months or Most Recently Relevant to Health Maintenance Results * TACROLIMUS LEVEL (07/15/2024 8:06 AM TOOL MAINTENANCE TECHNICIAN) Pathologist [facility] Tacrolimus 6.2 mcg/L [facility] Comment: No definitive therapeutic or toxic ranges have been established. Optimal blood drug levels are influenced by type of transplant, patient response, time post- transplant, co-administration of other drugs, and drug formulation. The following trough range is a suggested guideline: 5.0-20.0 mcg/L. Test Performed at: [facility] [address] [facility] [place] ??[phone] KAMAR ALEXANDRE MD Blood BLOOD SPECIMEN / Unknown 07/15/2024 8:06 AM TOOL MAINTENANCE TECHNICIAN 07/15/2024 8:07 AM TOOL MAINTENANCE TECHNICIAN Ramon Morales MD LAB - THERAPEUTIC DR NICK MONITORING ORDERABLES Performing Organization Address City/State/[facility] Co de Phone Number [facility] [address] [place] [address] * (ABNORMAL) CBC WITH DIFFERENTIAL (07/15/2024 8:06 AM TOOL MAINTENANCE TECHNICIAN) Pathologist [facility] White Blood Cell Count 3.6(L) 3.8 - [...] 0.6 % [facility] Comment: Test Performed at: [facility] [address] [place], [place] ??[phone] KAMAR ALEXANDRE MD Blood BLOOD SPECIMEN / Unknown 07/15/2024 8:06 AM TOOL MAINTENANCE TECHNICIAN 07/15/2024 8:07 AM TOOL MAINTENANCE TECHNICIAN Ramon Morales MD LAB - HEMATOLOGY ORD ERABLES [facility] [address] [place] [address] * (ABNORMAL) COMPREHENSIVE METABOLIC PANEL (07/15/2024 8:06 AM TOOL MAINTENANCE TECHNICIAN) Glucose 149(H) 65 - 99 mg/dL [facility] [...] 46 U/L [facility] Comment: Test Performed at: [facility] [address] [place] ??[address] KAMAR ALEXANDRE MD Blood BLOOD SPECIMEN / Unknown 07/15/2024 8:06 AM TOOL MAINTENANCE TECHNICIAN 07/15/2024 8:07 AM TOOL MAINTENANCE TECHNICIAN Ramon Morales MD LAB - CHEMISTRY LUIS ENRIQUE CELIS [facility] [address] [place] [address] * ENDOSCOPY, COLON, SCREENING (04/04/2020 9:37 AM [...] and ?oxygen saturations were monitored continuously. The ?[id number] was introduced through the anus and ?advanced to the cecum, identified by appendiceal ?orifice and ileocecal valve. The colonoscopy was ?performed without difficulty. The patient tolerated ?the procedure well. The quality of the bowel ?preparation was evaluated using the BBPS ([place] ?Bowel Preparation Scale) with scores of: Right [...] Procedure Code(s): ? --- Professional --- ? 25912, Colonoscopy, flexible; with removal of tumor(s), polyp(s), or ? other lesion(s) by snare technique ? 17073, 59, Colonoscopy, flexible; with biopsy, single or multiple Diagnosis Code(s): ?--- Professional --- ?Z12.11, Encounter for screening for malignant ?neoplasm of colon ?K63.5, Polyp of colon ?K62.1, Rectal polyp CPT copyright 2019 [employer]. All rights reserved. The codes documented in this report are preliminary and upon plate painter apprentice review may be revised to meet current compliance requirements. _ Ramon Morales MD 04/04/2020 10:34:35 AM This report has been signed electronically. Note Initiated On: 04/04/2020 9:37 AM Number of Addenda: 0 ? [facility] ? [address] [place] [address] [facility] 04/04/2020 9:37 AM CDT Elda Rashid MD GI PROCEDURE ORDERAB LES [facility] * (ABNORMAL) HEMOGLOBIN A1C (03/14/2020 8:46 [...] of diabetes for children. Test Performed at: [facility] [address] [place], [place] ??[address] OMARI HOFFMANN DO,MPH 03/14/2020 8:46 AM CDT 03/14/2020 8:47 AM CDT Ramon Morales MD LAB - CHEMISTRY LUIS ENRIQUE CELIS [facility] [address] [place] [address] * HEPATITIS C ANTIBODY (09/11/2015 10:46 AM TOOL MAINTENANCE TECHNICIAN) Hepatitis C Antibody Non-react [facility] Comment: Hepatitis C Antibody screen indicates no serologic evidence of past or current infection with Hepatitis C Virus. Patients with unexplained liver disease who are immunocompromised or suspected of having acute Hepatitis C infection may benefit from Nucleic Acid Test (ERUM) for Hepatitis C Viral RNA to confirm Hepatitis C status. Blood specimen (specimen) BLOOD SPECIMEN / Unknown 09/11/2015 10:46 AM TOOL MAINTENANCE TECHNICIAN 09/11/2015 10:52 AM TOOL MAINTENANCE TECHNICIAN Scott Lee MD LAB - CHEMISTRY LUIS ENRIQUE CELIS [facility] [address] [place] [address] from Last 3 Months or Most Recently Relevant to Health Maintenance Advance Directives Documents on File Type Date Recorded Patient Extension Service Agent Expl anation Advance Directives and Livin g Will 07/17/2016 12:00 AM Advance Directives and Livin g Will 09/11/2015 12:00 AM Care Teams Loan Interviewer Mortgage Relationship Specialty Start Date End Date Sharri Argueta DO [address] [place] [address] PCP - General 10/23/20 Qi Story, RN Registered Nurse 10/28/20
--- OUTSIDE RECORDS SUMMARY | 2024-10-06 13:40 | XMS_ITS ---
Author Organization [facility] Address [address] [place] [address] Care Team Providers Care Nutrition Partner Name Role Phone Sharri Argueta DO Primary Care Provider [phone] Qi Story RN Unavailable Unavailable Transplant Episode Liver Recipient [facility] ([place], [place]) - [facility] Organ Received: Liver Transplanted on 11/03/2017 Marked as Active Follow-up on 11/03/2017 Liver CoordinatorQi Story RN Phone: N/A Fax: N/A Email: N/A Hoh Organ Diagnosis Organ Primary Contributory Liver Cirrhosis: [...]
--- OUTSIDE RECORDS SUMMARY | 2024-10-06 13:40 | XMS_ITS | Clinical Summary ---
Author Organization [facility] Address [address] [place] [address]. [place], [place] [address] [place] [address] Care Team Providers Care Student Services Counselor Name Role Phone Rod Sanches MD Primary Care Provider [phone] Social History Tobacco Use Types Packs/Day Years [...] (1 - 1-dose 75+ series) 2030 Meningococcal B Vaccine Aged Out No l onger eligible based on patient's age to complete this topic Meningococcal Vaccine Aged Out No rudy satya eligible based on patient's age to complete this topic RSV Immunizations Under 20 Months Aged Out No longer eligible based on patient's age to complete this topic Care Teams Student Services Counselor Relationship Specialty Start Date End Date Rod Sanches MD [address] [place] [address] PCP - General 09/10/15
--- OUTSIDE RECORDS SUMMARY | 2024-10-06 13:40 | XMS_ITS | Encounter Summary ---
Author Organization [facility] Address [address] [place] [address] Care Team Providers Care Recruiting Assistant Name Role Phone Rod Sanches MD Primary Care Provider [phone] Phylicia Beck RN Unavailable Unavailable Sharri Argueta DO Primary Care Provider [phone] Rod Sanches MD Primary Care Provider [phone] Sharri Argueta DO Primary Care Provider [phone] Qi Story RN Unavailable Unavailable Encounter Details Date Type Department Care Team (Late st Contact Info) Description 05/06/2018 Nutrition [facility] TRANS[facility]ANT [address] [place] [phone] [address]/LOLLY Social History Tobacco Use Types Packs/Day Years Used Date Smoking Tobacco: Former Cigarettes Q uit: 09/11/1983 Smokeless Tobacco: Never Alcohol Use Standard Drinks/Week Comments No 0 (1 standard drink = 0.6 oz pur e alcohol) Sex and Gender Information Value Date Recorded Sex Assigned at Not on file Gender Identity Not on file Sexual Orientation Straight 07/31/2024 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 documented as of this encounter Progress Notes [...] Saturday- Dinner - 6 fried chicken wings, romanian fries, HS - 6 cookies Saturday - [...] Description 02/02/2025 12:00 PM CDT Office Visit [facility] - GI [address] [place] [phone] Ramon Morales MD [facility] [address] 03/11/2025 1:20 PM CDT Office Visit [facility] - Dermatology [address] [place] [phone] Bernard Baca MD [address] [facility] [place] [address] documented as of this encounter Visit Diagnoses Not on filedocumented in this encounter Care Teams Recruiting Assistant Relationship Specialty Start Date End Date Rod Sanches MD [address] [place] [address] PCP - General 06/09/16 01/13/20 Sharri Argueta DO [address] [place] [address] PCP - General 01/14/20 04/06/20 Rod Sanches MD [address] [place] [phone] PCP - General 04/07/20 10/22/20 Sharri Argueta DO [address] [place] [address] PCP - General 10/23/20 Phylicia Beck, RN Registered Nurse 12/23/17 10/27/20 Qi Story, RN Registered Nurse 10/28/20 documented as of this encounter
[2024-10-06 20:17] LABS: Influenza A QL RT-PCR Negative (Negative); Influenza B QL RT-PCR Negative (Negative); RSV RNA, RT-PCR Negative (Negative); SARS-CoV-2 RNA PCR Positive (Negative)
== END 2024-10-06 13:01 | disposition home or self-care (01) ==
LOC: ANHGOSHLAB 13:01
PROVIDERS: PCP Family Medicine; Visit Provider Nurse Practitioner
DX: J02.9 Acute pharyngitis, unspecified (principal); Z20.822 Contact with and (suspected) exposure to COVID-19
CPT/HCPCS: 87637

== ENCOUNTER 2024-11-11 11:16 | Outpatient (CLI) | payer MEDICARE, SELFPAY ==
[2024-11-11 12:03] LABS: Hematocrit 42.4 % (42.0-52.0); Hemoglobin 14.4 g/dL (14.0-18.0); Immature Platelet Fraction Pct 5.2 % (0.9-11.2); Mean Corpuscular Hemoglobin 31.3 pg (26-34); Mean Corpuscular Volume 92.2 fl (80-100); Mean Platelet Volume 11.3 fl (7.4-10.4); Platelet Count Result 70 k/mm3 (150-375); Red Cell Distribution Width 12.5 % (11.5-14.5); White Blood Count 4.2 K/mm3 (4.5-10.0)
[2024-11-11 12:11] LABS: Anion Gap 9 mmol/L (4-12); Blood Urea Nitrogen 21 mg/dL (9-20); Calcium 9.3 mg/dL (8.4-10.2); Carbon Dioxide 29 mmol/L (22-30); Chloride 101 mmol/L (98-107); Estimated Glomerular Filt Rate > 60; Glucose 124 mg/dL (65-110); Potassium 4.5 mmol/L (3.4-5.0); Sodium 139 mmol/L (137-145)
--- OUTSIDE RECORDS SUMMARY | 2024-11-11 13:02 | XMS_ITS | Referral Summary ---
Author Organization [facility] Address [address] [facility] [place] [address] Care Team Providers Care Screw Machine Set Up Operator Name Role Phone Sharri Argueta DO Primary Care Provider [phone] Qi Story RN Unavailable Unavailable Source Comments [facility],non-owned Affiliates and Associated Physician Practices is amultiple site organization consisting of ambulatory clinics and hospital sitesin [place], [place], [place] and [place]. This disclosure is being madepursuant to the Care Everywhere program and may not contain all information available regarding this patient. Last updated 18.[facility] Encounters Date Type Department Care Team Description 10/21/2024 Refill [facility] - GI [address] [place] [address], [place] [phone] Ramon Morales MD Refill Request 10/02/2024 Orders Only [facility] - [address], [place] [address] Ramon Morales MD Long-term use of immunosuppressant medication; S/P liver transplant (HCC) 09/14/2024 Refill [facility] - GI [address] [place] [address], [place] [phone] Ramon Morales MD MEDICATION REFILL 08/28/2024 Telephone [facility] - Nephrology [address] [facility] [place] [address] Ramon Morales MD Surgery Scheduling from Last 3 Months Allergies Active Allergy [...] Date Status aspirin (ASPIRIN) 81 MG chew tabletIndication s:S/P liver transplant (HCC),Hypertensi on, unspecified type Take 1 tablet by mouth once daily 100 tablet 4 07/09/2018 Active metFORMIN ER 24hr (GLUCOPHAGE XR) 500 MG tablet TAKE 2 TABLETS BY MOUTH TWO TIMES DAILY 360 tablet 1 03/23/2019 Active Loratadine 10 MG Take 10 mg by mouth at bedtime Active Multiple Vitamins-Mineral s (MULTIVITAMIN ADULT PO) Take 1 tablet by mouth 2 times daily Active Methylcobalamin 1 MG Take 1 tablet by mouth once daily Active losartan (Cozaar) 25 MG tablet Take 1 (one) tablet by mouth once daily 04/24/2022 Active cyclobenzaprine (Flexeril) 10 MG tablet Take 1 (one) tablet by mouth as needed 07/19/2022 Active doxazosin (Cardura) 8 MG tabletIndication s:S/P liver transplant (HCC),Hypertensi on, unspecified type TAKE 1 TABLET BY MOUTH AT BEDTIME 100 tablet 3 07/30/2024 Active carvedilol (Coreg) 25 MG tabletIndication s:S/P liver transplant (HCC),Hypertensi on, unspecified type TAKE 1 TABLET BY MOUTH TWICE DAILY WITH MORNING AND EVENING MEALS 200 tablet 3 07/30/2024 Active tacrolimus (Prograf) 1 MG capsuleIndicatio ns:Liver Transplant Status Take 1 (one) capsule by mouth 2 times daily Fill with Prograf generic equivalent Reasons: Liver Transplant Recipient 180 capsule 3 09/14/2024 Active amLODIPine (Norvasc) 10 MG tabletIndication s:S/P liver transplant (HCC),Hypertensi on, unspecified type TAKE 1 TABLET BY MOUTH ONCE DAILY 100 tablet 2 10/27/2024 Active amLODIPine (Norvasc) 10 MG tabletIndication s:S/P liver transplant (HCC),Hypertensi on, unspecified type TAKE 1 TABLET BY MOUTH ONCE DAILY 100 tablet 2 02/13/2024 5 Discontinued Active Problems Problem Noted Date Diagnosed Date 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 Xerosis cutis 03/05/2023 Rash and other nonspecific skin eruption 021 Assessment & Plan (11/04/2020 12:02 PM ELECTRIC METER TESTER SHOP): -L ankle/foot -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 -start TAC oint BID PRN w wet wraps, instructions provided Multiple benign melanocytic nevi of upper extremity, lower extremity, and trunk 11/04/2020 Assessment & Plan (11/04/2020 12:01 PM ELECTRIC METER TESTER SHOP): - None atypical or more concerning than others on exam today - Counseled on importance of daily sun protection, and monthly self skin exams - Reviewed ABCDEs of melanoma - Advised sun protective behaviors and regular sun screen use - Annual FBSE Lentigines 11/04/2020 Assessment & Plan (11/04/2020 12:01 PM ELECTRIC METER TE[employer] SHOP): -Benign, reassurance Other specified dermatitis 11/04/2020 Seborrheic keratosis 11/04/2020 Neutropenia 10/28/2020 History of hepatocellular carcinoma 11/20/2018 Long-term use of immunosuppressant medication Benign essential HTN 08/28/2018 IPMN (intraductal papillary mucinous neoplasm) 0 05/23/2018 Fatty pancreas 05/08/2018 Right inguinal hernia 05/08/2018 Overview (05/08/2018): Indirect Diabetes mellitus type 2, uncontrolled 8 Pre-transplant evaluation for liver transplant 0 12/23/2017 Overview (12/23/2017): LISTED Diagnosis: BRADSHAW/HCC Referring Tassel Making Machine Operator: Andrew Alert: Will need renoportal [...] segment 7 and sequela of portal hypertension. Pano: 08/06/2017 No evidence of periapical abscess. Abd/Pelvis [address]: 09/19/2017 S/p Thermal [...] response to Dobutamine. Cardiac Cath: 07/30/16 ANGIOGRAPHY: i. Left main: LM is short. It trifurcates into LAD, LCx and ramus intermedius branches. TYhere is no angiographic evidence of disease in LM. ii. LAD: LAD is large caliber and [...] which have no angiographic evidence of disease. v. Other angiography: Ramus intermedius: There is no angiographic evidence of disease in ramus. PFTs:06/19/2016 Lung Volumes by plethysmography were variable; [...] masses or polyps. SW: Clinical Social Work Impression: It is the impression of this social work faculty member that Robert Harrell has several positive factors for Liver transplant candidacy including knowledge of illness, sufficient insurance coverage, stable financial situation for post transplant needs, and no concerns regarding substance abuse. SW concerns are patient's support system and discharge plan. Plan: railroad yard worker to provide supportive services as needed. Patient appears to be a reasonable candidate for transplant from a psychosocial perspective, pending: - Post transplant arrangement forms are needed prior to being listed, with confirmation. Psychiatric Consult Recommended: No Transplant Engineering Lab Technician: MIKY OVERTON RD: 24 Hour Recall/food frequency: eggs, chocolate milk, salad, spaghetti, hamburger, [place] - loaiza seared, mash potatoes, broccoli, corn cauliflower, apples, ham and samoan, lettuce and tomato sandwich, Ramen noodles about 4 packets per week, uses Low Sodium Salt Additional Information: Pt verbalized an understanding of the low sodium diet - pt's diet still seems high in sodium. BMI= 32.72, Class I Obesity. Pt is considered to be a good candidate for a Liver Transplant from a Nutrition standpoint if Nutrition Recommendations followed. Recommendations/Interventions: 1. Pt instructed to watch weight. 2. Pt instructed to eat less sodium. S/P liver transplant 11/13/2017 Overview (07/21/2020): Referring Physician: Dr. Morales PCP: Dr. Rod Sanches Transplant Date: 11/03/2017 Donor: Standard criteria donor [id number] CMV D-/R-, EBV D+/R+ Pre-Transplant Summary: ESLD [...] PCP Adjustments: Readmissions: Biopsies: Explant Liver, explant, match-e-be-nash-she-wish band hepatectomy (A): - Cirrhosis (history of BARDSHAW) - Completely necrotic nodule in right lobe (4.0 cm) - Macroregenerative nodules, multifocal - Focal dysplasia (small and large cell changes) - Hepatocellular iron focally up to 4+ - No viable hepatocellular carcinoma identified Gallbladder, match-e-be-nash-she-wish band hepatectomy (A): - Mild chronic cholecystitis Gallbladder, [...] no evidence of viable residual hepatocellular carcinoma. There are foci of dysplasia (small and large cell changes) and scattered macroregenerative nodules. The trichrome and reticulin stains confirm cirrhosis. The PAS-D stain is negative for bfasm-5-loktlvdtbgl globules. The iron stain shows granular hepatocellular iron focally up to 4+. At this advanced stage of liver disease, it is difficult to ascertain an etiology with certainty. There are no overt features of chronic cholestatic liver disease or an active chronic hepatitis. Only minimal steatosis is present, without ballooning. The findings would be compatible with a burnt out nonalcoholic steatohepatitis (BRADSHAW) in the correct clinical setting. POST TRANSPLANT HCC SURVEILLANCE MONITORING CT ABD 12/26/2017 IMPRESSION: 1. Orthotopic liver transplant. A 7 [...] lesions concerning for hepatocellular carcinoma. Orthotopic liver transplant. 2. 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 3. Sequela of portal hypertension with splenomegaly and large perisplenic Varices. 4. Cystic lesions in the uncinate process of the pancreas measuring 1.7 cm and in the pancreatic body measuring 8 mm likely representing IPMN. Follow-up MR exam in one year is recommended. 07/11/2018 MRI ABD IMPRESSION: 1. Postoperative appearance of orthotopic liver transplantation. Multiple new arterial phase enhancing observations diffusely scattered throughout both hepatic lobes without washout or delayed capsular enhancement. These observation do not have typical appearance of a mass and are favored to represent vascular phenomenon. Accelerated follow-up is recommended. 2. 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 3. Sequela of portal hypertension including splenomegaly and large perisplenic varices. 4. Grossly unchanged multiple cystic pancreatic lesions, the largest in the uncinate process measures 1.8 cm. These appear to communicate with the pancreatic duct and likely represent side branch intraductal papillary mucinous neoplasm (IPMN). Attention on follow-up is recommended. 10/13/2018 MRI ABD IMPRESSION: 1. Postoperative changes [...] neoplasm (IPMN). Health Maintenance: 12/08/2018 Colonoscopy Impression: - Preparation of the colon was fair and thus screening colonoscopy was inadequate to clear colon. - Stool in the entire examined colon. - The entire examined colon is normal on direct and retroflexion views. - No specimens collected. Recommendation: - Patient has a contact number available for emergencies. The signs and symptoms of potential delayed complications were discussed with the patient. Return to normal activities tomorrow. Written discharge instructions were provided to the patient. - Resume previous diet. - Continue present medications. - Repeat colonoscopy in 1 year because the bowel preparation was suboptimal. - Return to my office as previously scheduled. 04/14/19 MRI ABD IMPRESSION: 1. Postoperative changes [...] mucinous neoplasm (IPMN). 10/13/2019 CT Chest IMPRESSION: 1.New 3 mm right lower lobe pulmonary nodule. Short-term follow-up CT chest is advised. 2.Postoperative changes of an orthotopic liver transplantation. 10/13/2019 MRI ABD IMPRESSION: 1. Postoperative changes of orthotopic liver transplant. Innumerable arterially hyperenhancing observations throughout the liver without washout appearance are unchanged from the prior study (LR 3). 2. Wytljt-iprzp-vtvimv venous anastomosis, with unchanged aneurysmal dilatation at the splenorenal confluence. 3. Sequela of portal hypertension including splenomegaly and large varices. 4. Unchanged cystic lesions throughout the pancreas, most likely representing intraductal papillary mucinous neoplasms (IPMN). Annual imaging follow-up is recommended. 01/14/2020 CT CHEST IMPRESSION: 1. No suspicious pulmonary nodule identified. 2. Partially imaged splenic venous aneurysm. 01/14/2020 MRI ABD IMPRESSION: 1. Postoperative changes of orthotopic liver transplant. No significant change in numerous arterially hyperenhancing observations throughout the liver without washout (LR 3). 2. Patent pyauwe-irwhk-afyjzd venous anastomosis, with unchanged aneurysmal dilatation of the splenorenal confluence. 3. Sequela of previous portal hypertension including splenomegaly and large varices. 04/04/2020 Colonoscopy Recommendation: - Patient has a contact number available for emergencies. The signs and symptoms of potential delayed complications were discussed with the patient. Return to normal activities tomorrow. Written discharge instructions were provided to the patient. - Resume previous diet. - Continue present medications. - Await pathology results. - Repeat colonoscopy in 5-10 years for surveillance depending on pathology. Final Diagnosis Large intestine, ascending colon polyp, biopsy (A): - Benign polypoid mucosa Large intestine, rectal polyp, biopsy (B): - Hyperplastic polyp 07/21/2020 MRI ABD IMPRESSION: 1.Postoperative appearance of orthotopic liver transplant. A [...] recommended. Assessment & Plan (11/04/2020 12:01 PM ELECTRIC METER TESTER SHOP): -discussed inc risk NMSC/MM - Reviewed ABCDEs [...] and mobility 08/03/2016 05/23/2018 Dizziness and giddiness 08/02/2016 0402/2018 Liver disease 04/04/2016 12/23/2017 Liver lesion 04/04/2016 05/23/2018 Other cirrhosis of liver 12/14/2015 Acute respiratory failure 09/16/2015 Hepatic failure, without coma 09/12/2015 12/23/2017 Hypo-osmolality and hyponatremia 09/12/2015 12/23/2017 Immunizations Name Administration Dates Next Due PolySpot primary monoval ent 12+ yr 0.3mL Purple [...] Sexual Orientation Straight 07/31/2024 7: 47 PM ELECTRIC METER TESTER SHOP Last Filed Vital Signs Vital Sign Reading Time Taken Comments Blood Pressure 137/83 07/21/2024 1:48 PM ELECTRIC METER TESTER SHOP Pulse 74 07/21/2024 1:48 PM ELECTRIC METER TESTER SHOP Temperature 36.4 C (97.5 F) 05/31/2023 1:01 PM CDT Respiratory Rate 18 07/21/2024 1:48 PM ELECTRIC METER TESTER SHOP Oxygen Saturation 99% 07/21/2024 1:48 PM ELECTRIC METER TESTER SHOP Inhaled Oxygen Concentration - - Weight 93.7 kg (206 lb 9.6 oz) 07/21/2024 1:48 P M [employer]IC METER TE[employer] Height 182.9 cm (6') 07/21/2024 1:48 PM ELECTRIC METER TESTER SHOP Body Mass Index 28.02 07/21/2024 1:48 PM ELECTRIC METER TESTER SHOP Plan of Treatment Upcoming Encounters Date Type Department Care Team (Late st Contact Info) Description 02/02/2025 12:00 PM CDT Office Visit [facility] - [facility] [facility] [place] [address] Ramon Morales MD [address] [place] [address] [place] [address] Goals Goal Patient Goal Type Associated Problems Recent Progress Patient-Stated? Author Medication Management General On track( 023 1:11 PM CDT) No Ayah Coleman RN Note: Expected end date: ongoing Interventions: Take all medications as prescribed Procedures Procedure Name Priority Date/Time Associated Diagnosis Comments COMPREHENSIVE METABOLIC PANEL Routine 07/15/2024 8:06 AM ELECTRIC METER TESTER SHOP Long-term use of immunosuppressant medication S/P liver transplant (HCC) ENDOSCOPY, COLON, SCREENING Routine 04/04/2020 9:37 AM CDT HEMOGLOBIN A1C 03/14/2020 8:46 AM CDT HEPATITIS C ANTIBODY Routine 09/11/2015 10:46 AM ELECTRIC METER TESTER SHOP from Last 3 Months or Most Recently Relevant to Health Maintenance Results * (ABNORMAL) COMPREHENSIVE METABOLIC PANEL (07/15/2024 8:06 AM ELECTRIC METER TESTER SHOP) Glucose 149(H) 65 - 99 mg/dL [facility] Comment: Fasting reference interval For someone without known diabetes, a glucose value >125 mg/dL indicates that they may have diabetes and this should be confirmed with a follow-up test. BUN 18 7 - 25 mg/dL [facility] Creatinine 1.24 0.70 - 1.35 mg/dL [facility] eGFR by Cystatin C 63 > OR = 60 mL/min/1. 73m2 [facility] BUN/Creatinine Ratio SEE NOTE: 6 22 (calc) [facility] Comment: Not Reported: BUN and Creatinine are within reference range. Sodium 140 135 - 146 mmol/L [facility] [...] 46 U/L [facility] Comment: Test Performed at: [facility] [address] [place] [address] KAMAR ALEXANDRE MD Blood BLOOD SPECIMEN / Unknown 07/15/2024 8:06 AM ELECTRIC METER TESTER SHOP 07/15/2024 8:07 AM ELECTRIC METER TESTER SHOP Ramon Morales MD LAB - CHEMISTRY [facility]DE [facility] [address] [place] [address] * ENDOSCOPY, COLON, SCREENING (04/04/2020 9:37 AM CDT) Report Endoscopy POC Endoscopy Department Report _ Patient Name: Robert Richmondklein Procedure Date: 04/04/2020 9:37 AM Date of : 1955 Classification: Outpatient Gender: Male Ethnicity: Not or Race: White _ Providers: Ramon Morales MD, Elda Rashid (Fellow) Referring MD: Ramon Morales MD (Referring MD) Procedure: Colonoscopy Indications: Screening for colorectal malignant neoplasm. Medications: Monitored Anesthesia Care Comorbidities OLT 11/03/17 for BRADSHAW cirrhosis complicated by HCC. Colonoscopy 12/2018: fair prep. C-scope 03/2012: intenal hemorrhoids. No polyps. Description of Procedure: Pre-Anesthesia Assessment: - Prior to the procedure, a History and Physical was performed, and patient medications and allergies were reviewed. The patient's tolerance of previous anesthesia was also reviewed. The risks and benefits of the procedure and the sedation options and risks were discussed with the patient. All questions were answered, and informed consent was obtained. Prior Anticoagulants: The patient has taken no previous anticoagulant or antiplatelet agents except for aspirin. ASA Grade Assessment: III - A patient with severe systemic disease. After reviewing the risks and benefits, the patient was deemed in satisfactory condition to undergo the procedure. After I obtained informed consent, the scope was passed under direct vision. Throughout the procedure, the patient's blood pressure, pulse, and oxygen saturations were monitored continuously. The [id number] was introduced through the anus and advanced to the cecum, identified by appendiceal orifice and ileocecal valve. The colonoscopy was performed without difficulty. The patient tolerated the procedure well. The quality of the bowel preparation was evaluated using the BBPS ([place] Bowel Preparation Scale) with scores of: Right Colon = 2 (minor amount of residual staining, small fragments of stool and/or opaque liquid, but mucosa seen well), Transverse Colon = 2 (minor amount of residual staining, small fragments of stool and/or opaque liquid, but mucosa seen well) and Left Colon = 2 (minor amount of residual staining, small fragments of stool and/or opaque liquid, but mucosa seen well). The total BBPS score equals 6. The ileocecal valve, appendiceal orifice, and rectum were photographed. Findings: The perianal and digital rectal examinations were normal. A 2 mm polyp was found in the ascending colon. The polyp was sessile. The polyp was removed with a cold snare. Resection and retrieval were complete. A 3 mm polyp was found in the rectum. The polyp was sessile. The polyp was removed with a jumbo cold forceps. Resection and retrieval were complete. A few hyperplastic polyps were found in the rectum. The polyps were diminutive in size. Polypectomy was not attempted due to benign nature of these polyps. The exam was otherwise without abnormality on direct and retroflexion views. Estimated Blood Loss: Estimated blood loss was minimal. Complications: No immediate complications. Impression: - One 2 mm polyp in the ascending colon, removed with a cold snare. Resected and retrieved. - One 3 mm polyp in the rectum, removed with a jumbo cold forceps. Resected and retrieved. - The examination was otherwise normal on direct and retroflexion views. Recommendation: - Patient has a contact number available for emergencies. The signs and symptoms of potential delayed complications were discussed with the patient. Return to normal activities tomorrow. Written discharge instructions were provided to the patient. - Resume previous diet. - Continue present medications. - Await pathology results. - Repeat colonoscopy in 5-10 years for surveillance depending on pathology. Attending Participation: I was present and participated during the entire procedure, including non-shelby portions. Procedure Code(s): --- Professional --- 69679, Colonoscopy, flexible; with removal of tumor(s), polyp(s), or other lesion(s) by snare technique 16209, 59, Colonoscopy, flexible; with biopsy, single or multiple Diagnosis Code(s): --- Professional --- Z12.11, Encounter for screening for malignant neoplasm of colon K63.5, Polyp of colon K62.1, Rectal polyp CPT copyright 2019 [employer]. All rights reserved. The codes documented in this report are preliminary and upon medical biller coder review may be revised to meet current compliance requirements. _ Ramon Morales MD 04/04/2020 10:34:35 AM This report has been signed electronically. Note Initiated On: 04/04/2020 9:37 AM Number of Addenda: 0 [facility] [address] [place] [address] [facility] 04/04/2020 9:37 AM CDT Elda Rashid MD GI PROCEDURE ORDERAB LES Performing Organization Address [facility]/ZIP Co de Phone Number [facility] * (ABNORMAL) HEMOGLOBIN A1C (03/14/2020 8:46 AM CDT) Pathologist [facility] Hemoglobin A1c 6.0(H) <5.7 % of total [...] of diabetes for children. Test Performed at: [facility] [address] [place] [address] OMARI HOFFMANN DO,MPH 03/14/2020 8:46 AM CDT 03/14/2020 8:47 AM CDT Ramon Morales MD LAB - CHEMISTRY LUIS ENRIQUE CELIS Performing Organization Address [facility] Co de Phone Number [facility] [address] [place] [address] * HEPATITIS C ANTIBODY (09/11/2015 10:46 AM ELECTRIC METER TESTER SHOP) [facility] Hepatitis C Antibody Non-react rosendo Non-reac tive [facility] Comment: Hepatitis C Antibody screen indicates no serologic evidence of past or current infection with Hepatitis C Virus. Patients with unexplained liver disease who are immunocompromised or suspected of having acute Hepatitis C infection may benefit from Nucleic Acid Test (ERUM) for Hepatitis C Viral RNA to confirm Hepatitis C status. 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
--- OUTSIDE RECORDS SUMMARY | 2024-11-11 13:02 | XMS_ITS ---
Author Organization [facility] Address [address] 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 -start TAC oint BID PRN w wet wraps, instructions provided Multiple benign melanocytic nevi of upper extremity, lower extremity, and trunk 11/04/2020 Assessment & Plan (11/04/2020 12:01 PM SIGNS CLEANER): - None atypical or more concerning than others on exam today - Counseled on importance of daily sun protection, and monthly self skin exams - Reviewed ABCDEs of melanoma - Advised sun protective behaviors and regular sun screen use - Annual FBSE Lentigines 11/04/2020 Assessment & Plan (11/04/2020 12:01 PM SIGNS CLEANER): -Benign, reassurance Other specified dermatitis 11/04/2020 Seborrheic keratosis 11/04/2020 Neutropenia 10/28/2020 History of hepatocellular carcinoma 11/20/2018 Long-term use of immunosuppressant medication Benign essential HTN 08/28/2018 IPMN (intraductal papillary mucinous neoplasm) 0 05/23/2018 Fatty pancreas 05/08/2018 Right inguinal hernia 05/08/2018 Overview (05/08/2018): Indirect Diabetes mellitus type 2, uncontrolled 8 Pre-transplant evaluation for liver transplant 0 12/23/2017 Overview (12/23/2017): LISTED Diagnosis: BRADSHAW/HCC Referring Engagement Engineer: Andrew Alert: Will need renoportal at the [...] Impression: It is the impression of this high school social studies tutor that Robert Harrell has several positive factors for Liver transplant candidacy including knowledge of illness, sufficient insurance coverage, stable financial situation for post transplant needs, and no concerns regarding substance abuse. SW concerns are patient's support system and discharge plan. Plan: print room worker to provide supportive services as needed. Patient appears to be a reasonable candidate for transplant from a psychosocial perspective, pending: - Post transplant arrangement forms are needed prior to being listed, with confirmation. Psychiatric Consult Recommended: No Transplant Resort Desk Clerk: MIKY OVERTON RD: 24 Hour Recall/food frequency: eggs, chocolate milk, salad, spaghetti, hamburger, [place] - loaiza seared, mash potatoes, broccoli, corn cauliflower, apples, ham and mal[place], lettuce and tomato sandwich, Ramen noodles about [...] Transplant Date: 11/03/2017 Donor: Standard criteria donor [id number] CMV D-/R-, EBV D+/R+ Pre-Transplant Summary: ESLD [...] Adjustments: Readmissions: Biopsies: Explant Liver, explant, [place] hepatectomy (A): - Cirrhosis (history of BRADSHAW) - Completely necrotic nodule in right lobe (4.0 cm) - Macroregenerative nodules, multifocal - Focal dysplasia (small and large cell changes) - Hepatocellular iron focally up to 4+ - No viable hepatocellular carcinoma identified Gallbladder, [place] hepatectomy (A): - Mild chronic cholecystitis Gallbladder, [...] cirrhosis. The PAS-D stain is negative for [id number] globules. The iron stain shows granular hepatocellular [...] from the prior study (LR 3). 2. Sbscmr-mqath-oailsa venous anastomosis, with unchanged aneurysmal dilatation at [...] liver without washout (LR 3). 2. Patent gigupo-xjkfb-ghojaz venous anastomosis, with unchanged aneurysmal dilatation of [...] recommended. Assessment & Plan (11/04/2020 12:01 PM SIGNS CLEANER): -discussed inc risk NMSC/MM - Reviewed ABCDEs [...] treatments are documented for this patient in [facility]. Treatments may have been administered in [...]
--- OUTSIDE RECORDS SUMMARY | 2024-11-11 13:02 | XMS_ITS | Patient Health Summary ---
Author Organization [facility] Address [address] 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 This disclosure is being madepursuant to the Care Everywhere program and may not contain all information available regarding this patient. Last updated 18.[facility] Allergies * Cephalexin(Nausea and/or Vomiting,Other) -Low Criticality [...] (one) tablet by mouth as needed * doxazosin (Cardura) 8 MG tablet(Started 07/30/2024) [...] Liver Transplant Recipient 3 refills by 09/14/2025 * amLODIPine (Norvasc) 10 MG tablet(Started 10/27/2024) TAKE 1 TABLET BY MOUTH ONCE DAILY 2 refills by 10/27/2025 Ended Medications* amLODIPine (Norvasc) 10 MG tablet(Started 02/13/2024) (Discontinued) TAKE 1 TABLET BY MOUTH ONCE DAILY 2 refills by 02/12/2025 Active Problems Problem Noted Date Diagnosed Date [...] and hyponatremia 09/12/2015 12/23/2017 Immunizations * Covid Ambiq Micro primary monovalent 12+ yr 0.3mL Purple cap(Given [...] Sexual Orientation Straight 07/31/2024 7: 47 PM [facility] Last Filed Vital Signs Vital Sign Reading Time Taken Comments Blood Pressure 137/83 07/21/2024 1:48 PM [facility] Pulse 74 07/21/2024 1:48 PM [facility] Temperature 36.4 C (97.5 F) 05/31/2023 1:01 PM CDT Respiratory Rate 18 07/21/2024 1:48 PM [facility] Oxygen Saturation 99% 07/21/2024 1:48 PM [facility] Inhaled Oxygen Concentration - - Weight 93.7 kg (206 lb 9.6 oz) 07/21/2024 1:48 P M [facility] Height 182.9 cm (6') 07/21/2024 1:48 PM [facility] Body Mass Index 28.02 07/21/2024 1:48 PM [facility] Procedures * TACROLIMUS LEVEL(Performed 07/15/2024) Performed for [...] (CLIENT INCUBATED)(Performed 06/19/2016) * DRUG ABUSE PANEL 10-20+ETHANOL URINE NO CONFIRM(Performed 06/19/2016) * URINALYSIS REFLEX [...] ABDOMEN MULTI PHASE W CONT(Performed 04/20/2016) * VUDLA-0-ZJBRPPWDPAA BLOOD PHENOTYPING PANEL(Performed 03/26/2016) * CBC W [...] HEPATITIS B CORE ANTIBODY TOTAL(Performed 09/14/2015) * RNLDV-7-FXZJNRHNGAB BLOOD(Performed 09/14/2015) * CERULOPLASMIN(Performed 09/14/2015) * BASIC [...] 09/11/2015) * HEPATITIS C ANTIBODY(Performed 09/11/2015) * VSBRK-4-LCHKVVIXHSQ BLOOD(Performed 09/11/2015) * GLUCOSE ACCUCHECK(Performed 09/11/2015) * [...] Results * TACROLIMUS LEVEL (07/15/2024 8:06 AM [facility]) Only the most recent of82 resultswithin the time period is included. Tacrolimus 6.2 mcg/L [facility] Comment: No definitive therapeutic or toxic ranges have been established. Optimal blood drug levels are influenced by type of transplant, patient response, time post- transplant, co-administration of other drugs, and drug formulation. The following trough range is a suggested guideline: 5.0-20.0 mcg/L. Test Performed at: [facility] [address] [facility] [place] [address] KAMAR ALEXANDRE MD Blood BLOOD SPECIMEN / Unknown 07/15/2024 8:06 AM [facility] 07/15/2024 8:07 AM [facility] Ramon Morales MD LAB - THERAPEUTIC DR NICK MONITORING ORDERABLES [facility] [address] [place] [address] * (ABNORMAL) CBC WITH DIFFERENTIAL (07/15/2024 8:06 AM [facility]) Only the most recent of132 resultswithin the [...] 0.6 % [facility] Comment: Test Performed at: [facility] [address] [place] [address] KAMAR ALEXANDRE MD Blood BLOOD SPECIMEN / Unknown 07/15/2024 8:06 AM [facility] 07/15/2024 8:07 AM [facility] Ramon Morales MD LAB - HEMATOLOGY ORD ERABLES Performing Organization Address [facility] Co de Phone Number [facility] [address] [place] [address] * (ABNORMAL) COMPREHENSIVE METABOLIC PANEL (07/15/2024 8:06 AM [facility]) Only the most recent of51 resultswithin the [...] NOTE: 6 - 22 (calc) [facility] Comment: Not Reported: BUN [...] 46 U/L [facility] Comment: Test Performed at: [facility] [address] [place] [address] KAMAR ALEXANDRE MD Blood BLOOD SPECIMEN / Unknown 07/15/2024 8:06 AM [facility] 07/15/2024 8:07 AM [facility] Ramon Morales MD LAB - CHEMISTRY LUIS ENRIQUE CELIS Performing Organization Address [facility] Co de Phone Number [facility] [address] [place] [address] * (ABNORMAL) DIFFERENTIAL MANUAL REFLXED III (02/12/2024 [...] perform a manual review. Test Performed at: [facility] [id number] [place] [address] KAMAR ALEXANDRE MD 02/12/2024 7:43 AM CDT 02/12/2024 7:43 AM CDT Ramon Morales MD LAB - HEMATOLOGY ORD ERABLES [facility] [address] [place] [address] * MRI ABDOMEN W MRCP WWO CONT [...] IPMN. > Dictated by Reshma Hairston MD (plant operations vice president). I, Raymond Dean MD have personally reviewed and interpreted this examination/study. > Interpreting Provider: Raymond Dean MD on 12/06/2023 4:25 PM Narrative 12/06/2023 4:25 PM CDT EXAMINATION: MRI ABDOMEN W MRCP WWO CONT W3D DATE/TIME OF EXAM: 12/06/2023 11:29 AM, LOCATION [facility] HISTORY: I10: Benign essential HTN Z94.4: [...] demonstrated on the prior CT from 09/19/2017. MRCP: The intrahepatic and extrahepatic bile ducts are nondilated. No filling defect or stricture is seen in the biliary system. The main pancreatic duct is nondilated. Procedure Note Raymond Dean MD - 12/06/2023 EXAMINATION: MRI ABDOMEN W MRCP WWO CONT W3D DATE/TIME OF EXAM: 12/06/2023 11:29 AM, LOCATION [facility] HISTORY: I10: Benign essential HTN Z94.4: [...] IPMN. > Dictated by Reshma Hairston MD (plant operations vice president). I, Raymond Dean MD have personally reviewed [...] Desirable range <100 mg/dL for primary prevention; <70 mg/dL for patients with CHD or diabetic patients with > or = 2 CHD risk factors. LDL-C is now calculated using the Mick-Ty calculation, which is a validated novel method providing better accuracy than the Friedewald equation in the estimation of LDL-C. Mick SS et al. BRODIE. 2013;310(19): 5197-0018 (http://education.SciQuest/faq/RCB075) CHOL/HDLC RATIO 4.0 <5.0 (calc) [facility] Non HDL Cholesterol 126 <130 mg/dL (calc) [facility] Comment: For patients with diabetes plus 1 major ASCVD risk factor, treating to a non-HDL-C goal of <100 mg/dL (LDL-C of <70 mg/dL) is considered a therapeutic option. Test Performed at: [facility] [address] [place] [address] KAMAR ALEXANDRE MD 05/22/2023 8:07 AM CDT 05/22/2023 8:07 AM CDT Ramon Morales MD LAB - CHEMISTRY ORDSherrill [facility] [address] [place] [address] * MRI ABDOMEN WWO CONTRAST (10/18/2022 10:40 AM [facility]) Only the most recent of10 resultswithin the time period is included. Anatomical Region Laterality Modality Abdomen Magnetic Resonan ce 10/18/2022 11:2 1 AM [facility] Impressions 10/18/2022 11:36 AM [facility] Impression: 1.Redemonstrated postoperative changes from orthotopic liver [...] Report dictated by FADY ESPARZA MD, MD (plant operations vice president). > Interpreting Provider: FADY ESPARZA MD on 10/18/2022 11:36 AM Narrative 10/18/2022 11:36 AM [facility] PROCEDURE: MRI ABDOMEN WWO CONTRAST, DATE/TIME OF EXAM: 10/18/2022 10:40 AM, LOCATION [facility] INDICATION: Z94.4: S/P liver transplant (CMS/HCC) [...] DATE/TIME OF EXAM: 10/18/2022 10:40 AM, LOCATION [facility] INDICATION: Z94.4: S/P liver transplant (CMS/HCC) [...] confluence. Report dictated by FADY ESPARZA MD, (plant operations vice president). > Interpreting Provider: FADY ESPARZA MD on 10/18/2022 11:36 AM Ramon Morales MD MR ORDERABLES * CT CHEST WO CONTRAST (10/18/2022 9:10 AM [facility]) Only the most recent of9 resultswithin the time period is included. Anatomical Region Laterality Modality Chest Computed Tomogra phy 10/18/2022 10:1 8 AM [facility] Impressions 10/18/2022 4:41 PM [facility] Impression: Unchanged bilateral nodules measuring up to 2 mm. > Dictated by Jose Anthony MD, MD (plant operations vice president). > Dictated by Jose Anthony MD (Rehab Therapist) 10/18/2022 2:09 PM IRaymond MD have personally reviewed and interpreted this examination/study. > Interpreting Provider: Raymond Dean MD on 10/18/2022 4:41 PM Narrative 10/18/2022 4:41 PM [facility] PROCEDURE: CT CHEST WO CONTRAST, DATE/TIME OF EXAM: 10/18/2022 9:10 AM, LOCATION [facility] INDICATION: Z94.4: S/P liver transplant (CMS/HCC) [...] DATE/TIME OF EXAM: 10/18/2022 9:10 AM, LOCATION [facility] INDICATION: Z94.4: S/P liver transplant (CMS/HCC) [...] > Dictated by Jose Anthony MD, MD (plant operations vice president). > Dictated by Jose Anthony MD (Rehab Therapist) 10/18/2022 2:09 PM I, Raymond Dean MD have personally reviewed and interpreted this examination/study. > Interpreting Provider: Raymond Dean MD on 10/18/2022 4:41 PM [address]on Mor[address] MD CT ORDERABLES * (ABNORMAL) PLATELET ESTIMATE REFLEXED (04/19/2022 7:55 AM CDT) Only the most recent of29 resultswithin the time period is included. [facility] Platelet Estimation DECREASED (A) ADEQUATE [facility] Comment: Test Performed at: [facility] [address] [place] [address] PETER HOFFMANN DO,MPH 04/19/2022 7:55 AM CDT 04/19/2022 7:55 AM CDT Ramon Morales MD LAB - HEMATOLOGY ORD ERABLES [facility] [address] [place] [address] * CREATININE - POCT INTERFACED (10/17/2021 10:28 AM [facility]) Only the most recent of2 resultswithin the time period is included. [facility] Creatinine POCT 0.64 0.30 - 1.30 mg/dL 10/17/2021 10:30 AM [facility] eGFR >90 >90 mL/min/1.7 3 m2 10/17/2021 10:30 AM [facility] Blood BLOOD SPECIMEN / Unknown 10/17/2021 10:28 AM [facility] 10/17/2021 10:[address] [facility] Ramon Morales MD LAB - POINT OF CARE ORDERABLES [facility] [address] [place] [address], [facility] [phone] * (ABNORMAL) BASIC METABOLIC PANEL (CALCIUM TOTAL) (04/12/2021 7:54 AM CDT) Only the most recent of102 resultswithin the time period is included. Glucose 124(H) 65 - 99 mg/dL [facility] Comment: Fasting [...] approximately 13% higher for people identified as -Grenadian. eGFR by MDRD 56(L) > OR = [...] 10.3 mg/dL [facility] Comment: Test Performed at: [facility] [address] [place] [address] PETER HOFFMANN DO,MPH Blood BLOOD SPECIMEN / Unknown 04/12/2021 7:54 AM CDT 04/12/2021 7:54 AM CDT Ramon Morales MD LAB - CHEMISTRY LUIS ENRIQUE SUSHMACALLI Performing Organization Address [facility] de Phone Number [facility] [phone] [place], [place] [id number] * HEPATIC FUNCTION PANEL (04/12/2021 7:54 AM [...] 46 U/L [facility] Comment: Test Performed at: [employer] [address] PETER HOFFMANN DO,MPH Blood BLOOD SPECIMEN / Unknown 04/12/2021 7:54 AM CDT 04/12/2021 7:54 AM CDT Ramon Morales MD LAB - CHEMISTRY LUIS ENRIQUE CELIS Performing Organization Address [facility] de Phone Number [facility] [address] [place] [address] * MAGNESIUM BLOOD (04/12/2021 7:54 AM CDT) Only the most recent of82 resultswithin the time period is included. Magnesium 1.9 1.5 - 2.5 mg/dL [facility] Comment: Test Performed at: [employer] [address] PETER HOFFMANN DO,MPH Blood BLOOD SPECIMEN / Unknown 04/12/2021 7:54 AM CDT 04/12/2021 7:54 AM CDT Ramon Morales MD LAB - CHEMISTRY LUIS ENRIQUE CELIS [facility] Organization Address City/State/ZIP Co de Phone Number [facility] [address] [place] [address] * BONE DENSITY AXIAL SKELETON(1OR MORE SITES)[id number] (11/16/2020 3:21 PM [facility]) Anatomical Region Laterality Modality Other 11/16/2020 5:01 PM [facility] Addenda Addendum by Jj Mancilla DO on 11/16/2020 5:27 PM [facility] ORIGINAL REPORT Examination: Dual energy x-ray absorptiometry [...] ordering physician and is also available on [employer] the Radiology Department's computerized picture archive system. [...] electronically signed by JJ MANCILLA D.O. on 11/16/2020 5:07 PM . ADDENDUM #1 Evaluation of the lumbar spine is incomplete due to kyphoplasty at L1 and L3 and it should be disregarded. The reported T score is only for L4. This report was approved by Miguel Angel Talbert on 11/16/2020 5:23 PM . Amy, Dr. JJ MANCILLA D.O. have personally reviewed and interpreted this examination/study. This report was electronically signed by JJ MANCILLA D.O. on 11/16/2020 5:24 PM . Narrative 11/16/2020 5:07 PM [facility] Examination: Dual energy x-ray absorptiometry of the [...] ordering physician and is also available on [employer] the Radiology Department's computerized picture archive system. [...] Angel Talbert on 11/16/2020 5:03 PM . I, Dr. JJ MANCILLA D.O. have personally reviewed and interpreted this examination/study. This report was electronically signed by JJ MANCILLA D.O. on 11/16/2020 5:07 PM . Procedure Note Jj Mancilla DO - 11/16/2020 Examination: Dual energy x-ray [...] ordering physician and is also available on [employer] the Radiology Department's computerized picture archive system. [...] Angel Talbert on 11/16/2020 5:03 PM . IDr. JJ D.O. have personally reviewed and interpreted this examination/study. This report was electronically signed by JJ MANCILLA D.O. on11/16/2020 5:07 PM . Ramon Morales MD DEXA ORDERABLES * CT FACIAL BONES WO CONTRAST (11/16/2020 1:15 PM [facility]) Anatomical Region Laterality Modality Head Computed Tomogra phy 11/16/2020 1:18 PM [facility] Impressions 11/16/2020 8:11 PM [facility] IMPRESSION: 1.No acute intracranial hemorrhage, midline shift, [...] correlate clinically. Dictated by Mayur Victoria DO (plant operations vice president) I, Dr. RICO COLEMAN have personally reviewed and interpreted this examination/study. This report was electronically signed by RICO COLEMAN on 11/16/2020 8:11 PM . Narrative 11/16/2020 8:11 PM [facility] EXAMINATION: 1. CT OF THE HEAD WITHOUT [...] correlate clinically. Dictated by Mayur Victoria DO (plant operations vice president) Dr. RICO Reyes have personally reviewed and interpreted this examination/study. This report was electronically signed by RICO COLEMAN on 11/16/2020 8:11 PM . Teresa Robbyhannah [facility] CT ORDERABLES * CT HEAD WO CONTRAST (11/16/2020 1:15 PM [facility]) Only the most recent of5 resultswithin the time period is included. Anatomical Region Laterality Modality Head Computed Tomogra phy 11/16/2020 1:18 PM [facility] Impressions 11/16/2020 8:11 PM [facility] IMPRESSION: 1.No acute intracranial hemorrhage, midline shift, [...] correlate clinically. Dictated by Mayur Victoria DO (plant operations vice president) Dr. RICO Reyes have personally reviewed and interpreted this examination/study. This report was electronically signed by RICO COLEMAN on 11/16/2020 8:11 PM . Narrative 11/16/2020 8:11 PM [facility] EXAMINATION: 1. CT OF THE HEAD WITHOUT [...] correlate clinically. Dictated by Mayur Victoria DO (plant operations vice president) IDr. RICO have personally reviewed and interpreted this examination/study. This report was electronically signed by RICO COLEMAN on 11/16/2020 8:11 PM . Teresa [address]S CT ORDERABLES * Laceration Repair (11/16/2020 12:46 PM [facility]) Paula Collins MD - 11/16/2020 12:46 PM [facility] Teresa Connor APRN-CNP 11/16/2020 6:38 PM Laceration Repair Date/Time: 11/16/2020 1:12 PM Performed by: Teresa Connor APRN-CNP Authorized by: Teresa Connor APRN-CNP Consent: Consent obtained: Verbal Consent given by: Patient Risks discussed: Infection, pain and poor cosmetic result Alternatives discussed: No treatment Anesthesia (see MAR for exact dosages): Anesthesia method: None Laceration details: Location: Face Face location: R eyebrow Length (cm): 2.5 Depth (mm): 1 Repair type: Repair type: Simple Pre-procedure details: Preparation: Patient was prepped and draped in usual sterile fashion Exploration: Hemostasis achieved with: Direct pressure Wound exploration: wound explored through full range of motion Wound extent: areolar tissue violated Treatment: Area cleansed with: Betadine and saline Amount of cleaning: Standard Irrigation solution: Sterile saline Irrigation volume: 200 Irrigation method: Syringe Skin repair: Repair method: Tissue adhesive Approximation: Approximation: Close Post-procedure details: Dressing: Open (no dressing) Patient tolerance of procedure: Tolerated well, no immediate complications Teresa WALTERS PROCEDURE/MINOR SURGICAL ORDERABLES * (ABNORMAL) CBC W/O DIFFERENTIAL (08/18/2020 8:22 AM [facility]) Only the most recent of22 resultswithin the time period is included. White [...] Thousand/u L [facility] Comment: TEST(S) NOT PERFORMED: PLATELET COUNT Unable to report due to significant clumping. Platelet estimate appears to be decreased but greater than 30,000/uL. Test Performed at: [facility] [address] [place] [address] PETER HOFFMANN DO,MPH 08/18/2020 8:22 AM [facility] 08/18/2020 8:22 AM [facility] Ramon Morales MD LAB - HEMATOLOGY ORD ERABLES [facility] [address] [place] [address] * PATHOLOGY TISSUE (04/04/2020 10:08 AM CDT) Only the most recent of3 resultswithin the time period is included. Case Report Surgical Pathology Report Case: [id number] Authorizing Provider: Ramon Morales MD Collected: 04/04/2020 10:08 AM Ordering Location: [facility] ENDOSCOPY Received: 04/04/2020 12:17 PM Pathologist: Gretchen Love MD Specimens: A) - Large Intestine, Right/Ascending Colon, Ascending colon polyp B) - Rectum, Rectal polyp 04/05/2020 6:05 PM CDT [facility] Final Diagnosis Large intestine, ascending colon polyp, biopsy (A): - Benign polypoid mucosa Large intestine, rectal polyp, biopsy (B): - Hyperplastic polyp 04/05/2020 6:05 PM CDT [facility] Microscopic Description and Comment Microscopic examination substantiates the final diagnosis. 04/05/2020 6:05 PM CDT [facility] Clinical History The patient is a 64 year old man who presented for colorectal cancer screening. Operative procedure/findings: Colonoscopy - 2 mm ascending colon polyp, resected and retrieved; 3 mm rectal polyp, resected and retrieved. 04/05/2020 6:05 PM CDT [facility] Gross Description The requisition and [...] cassette B1. KK 04/05/2020 6:[address] [facility] PATHOLOGY LAB Disclaimer The performance characteristics of all immunohistochemical and indirect immunofluorescence stains (if any) cited in this report were determined by the Histopathology Laboratory of [facility]. Some of these tests were developed by [...] attending (teaching) pathologist. 04/05/2020 6:[address] [facility] PATHOLOGY LAB Embedded Images 04/05/2020 6:[address] [facility] PATHOLOGY LAB Biopsy, NOS (Large Intestine, Right/Ascending [...] Morales MD LAB - PATHOLOGY/CYTO LOGY ORDERABLES [facility] PATHOLOGY LAB [address] [place] [address], [facility] [phone] * ENDOSCOPY, COLON, SCREENING (04/04/2020 9:37 AM CDT) Report Endoscopy POC Endoscopy Department Report _ Patient Name: Robert Harrell Procedure Date: 04/04/2020 9:37 AM Date of [...] and oxygen saturations were monitored continuously. The [id number] was introduced through the anus and advanced to the cecum, identified by appendiceal orifice and ileocecal valve. The colonoscopy was performed without difficulty. The patient tolerated the procedure well. The quality of the bowel preparation was evaluated using the BBPS (Manderson Bowel Preparation Scale) with scores of: Right [...] non-shelby portions. Procedure Code(s): --- Professional --- 28112, Colonoscopy, flexible; with removal of tumor(s), polyp(s), or other lesion(s) by snare technique 46201, 59, Colonoscopy, flexible; with biopsy, single or multiple Diagnosis Code(s): --- Professional --- Z12.11, Encounter for screening for malignant neoplasm of colon K63.5, Polyp of colon K62.1, Rectal polyp CPT copyright 2019 [employer]. All rights reserved. The codes documented in this report are preliminary and upon voucher clerk review may be revised to meet current compliance requirements. _ Ramon Morales MD 04/04/2020 10:34:35 AM This report has been signed electronically. Note Initiated On: 04/04/2020 9:37 AM Number of Addenda: 0 [facility] [address] [place], [place] [id number] [place] [address] 04/04/2020 9:37 AM CDT Elda Rashid MD GI PROCEDURE ORDERAB LES Performing Organization Address [facility] Co de Phone Number [facility] * (ABNORMAL) GLUCOSE - POINT OF CARE (04/04/2020 9:07 AM CDT) Only the most recent of2 resultswithin the time period is included. Glucose WB/POC 139(H) 70 - 115 mg/dL 04/04/2020 12:[address] [facility] Specimen Type Arterial/C apillary 04/04/2020 12:[address] [facility] Blood BLOOD SPECIMEN / Unknown 04/04/2020 9:07 AM CDT 04/04/2020 12:37 PM CDT Ramon Morales MD LAB - POINT OF CARE ORDERABLES Performing Organization Address City/[facility]/ZIP Co de Phone Number [address] [address], [facility] [phone] * (ABNORMAL) HEMOGLOBIN A1C (03/14/2020 8:46 AM CDT) Only the most recent of8 resultswithin the time period is included. Hemoglobin A1c 6.0(H) <5.7 % of total [...] of diabetes for children. Test Performed at: [facility] [address] [employer] [address] PETER HOFFMANN DO,MPH 03/14/2020 8:46 AM CDT 03/14/2020 8:47 AM CDT Ramon Morales MD LAB - CHEMISTRY ORDE RABLES Performing Organization Address [facility] Co de Phone Number [facility] [address] [place] [address] * (ABNORMAL) PLATELET ESTIMATION (02/16/2019 8:10 AM CDT) Platelet Estimation DECREASED (A) ADEQUATE [facility] Comment: Test Performed at: [facility] [address] [employer] [address] PETER HOFFMANN DO,MPH 02/16/2019 8:10 AM CDT 02/16/2019 8:15 AM CDT Ramon Morales MD LAB - HEMATOLOGY ORD ERABLES Performing Organization Address [facility] Co de Phone Number [facility] [phone] [place] [address] * ENDOSCOPY, COLON, SCREENING (12/08/2018 8:23 AM CDT) Report Endoscopy POC Endoscopy Department Report _ Patient Name: Robert Harrell Procedure Date: 12/08/2018 8:23 AM Date of : 1955 Classification: Inpatient Gender: Male _ Providers: Ramon Morales MD Referring MD: Rod Sanches (Referring MD) Procedure: Colonoscopy Indications: Screening for colorectal malignant neoplasm Medications: Monitored Anesthesia Care Comorbidities Status post liver transplant Description of Procedure: Pre-Anesthesia Assessment: - Prior [...] obtained. Prior Anticoagulants: The patient has taken aspirin, last dose was 1 day prior to procedure. ASA Grade Assessment: II - A patient with mild systemic disease. After reviewing the risks and benefits, the patient was deemed in satisfactory condition to undergo the procedure. After I obtained informed consent, the scope was passed under direct vision. Throughout the procedure, the patient's blood pressure, pulse, and oxygen saturations were monitored continuously. The [id number] was introduced through the anus and advanced to the cecum, identified by appendiceal orifice and ileocecal valve. The colonoscopy was performed without difficulty. The patient tolerated the procedure well. The quality of the bowel preparation was fair. The ileocecal valve, appendiceal orifice, and rectum were photographed. Findings: The perianal and digital rectal examinations were normal. Extensive amounts of semi-liquid stool was found in the entire colon, making visualization difficult. Lavage of the area was performed using a large amount of sterile water, resulting in incomplete clearance with fair visualization. The entire examined colon appeared normal on direct and retroflexion views. Estimated Blood Loss: Estimated blood loss: none. Complications: No immediate complications. Impression: - Preparation of the colon was [...] Return to my office as previously scheduled. Attending Participation: I personally performed the entire procedure. Procedure Code(s): --- Professional --- G0121, Colorectal cancer screening; colonoscopy on individual not meeting criteria for high risk Diagnosis Code(s): --- Professional --- Z12.11, Encounter for screening for malignant neoplasm of colon CPT copyright 2016 [employer]. All rights reserved. The codes documented in this report are preliminary and upon voucher clerk review may be revised to meet current compliance requirements. _ Ramon Morales MD 12/08/2018 9:39:14 AM This report has been signed electronically. Note Initiated On: 12/08/2018 8:23 AM Number of Addenda: 0 [place] [id number] [facility], [place] [id number] [place] [address] 12/08/2018 8:23 AM CDT Ramon Morales MD GI PROCEDURE ORDERAB LES Performing Organization Address [facility] Co de Phone Number [facility] * PHOSPHORUS BLOOD (11/24/2018 8:24 AM CDT) Only the most recent of66 resultswithin the time period is included. Phosphorus 3.4 2.5 - 4.5 mg/dL [facility] Comment: Test Performed at: [facility] [address] [place] [address] PETER HOFFMANN DO,MPH 11/24/2018 8:24 AM CDT 11/24/2018 8:24 AM CDT Ramon Morales MD LAB - CHEMISTRY LUIS ENRIQUE CELIS Performing Organization Address City/[facility] Co de Phone Number [facility] [address] [place] [address] * SLIDE SCAN HEMATOLOGY (11/10/2018 8:37 AM PAPERHANGER PIPE) Only the most recent of2 resultswithin the time period is included. Pathologist [facility] CBC Morphology NORMAL [facility] Comment: Ovalocytes 1 + Test Performed at: [facility] [address] [place] [address] PETER HOFFMANN DO,MPH 11/10/2018 8:37 AM P[facility]HANGER PIPE 11/10/2018 8:37 AM P[facility]ERHANGER PIPE Ramon Morales MD LAB - HEMATOLOGY ORD ERABLES Performing Organization Address [facility] Co de Phone Number [facility] [address] [place] [address] * CYTOMEGALOVIRUS DNA RT PCR QUANT BLOOD (10/13/2018 8:22 AM PAPERHANGER PIPE) Only the most recent of8 resultswithin the time period is included. Pathologist [facility] Source BLOOD [facility] Cytomegalovirus DNA Quantitative Real Time PCR <200 IU/mL [facility] Cytomegalovirus DNA Quantitative PCR <2.30 Log IU/mL [facility] Comment: REFERENCE RANGE: CMV DNA, QN PCR: <200 IU/mL CMV DNA, QN PCR: <2.30 Log IU/mL This test was developed and its analytical performance characteristics have been determined by [facility]. It has not been cleared or approved by the U.S. Food and Drug Administration. This assay has been validated pursuant to the CLIA regulations and is used for clinical purposes. Test Performed at: [facility], [address] [address] Zoltan DE SOUZA Blood BLOOD SPECIMEN / Unknown 10/13/2018 8:22 AM P[facility]ERHANGER PIPE 10/13/2018 8:24 AM P[facility]ERHANGER PIPE aRmon Morales MD LAB - CHEMISTRY ORDE RABCALLI Performing Organization Address City/[facility]/ZIP Co de Phone Number [facility] [address] [place] [address] * ALPHA FETOPROTEIN BLOOD TUMOR (07/07/2018 11:31 AM CDT) Only the most recent of9 resultswithin the time period is included. Pathologist [facility] Alpha-Fetoprotei n Tumor Marker 0.8 <6.1 ng/mL [facility] Comment: This test was performed using the [employer] [place] chemiluminescent method. Values obtained from different assay methods cannot be used interchangeably. AFP levels, regardless of value, should not be interpreted as absolute evidence of the presence or absence of disease. Test Performed at: [place] [address] PETER HOFFMANN DO,MPH 07/07/2018 11:3 1 AM CDT 07/07/2018 11:32 AM CDT Ramon Morales MD LAB - CHEMISTRY ORDSherrill RABCALLI Performing Organization Address [facility] Co de Phone Number [facility] [address] [place] [address] * TSH (04/14/2018 10:26 AM CDT) Only the most recent of2 resultswithin the time period is included. Pathologist [facility] TSH 1.43 0.40 - 4.50 mIU/L [facility] Comment: Test Performed at: [facility] [address] [place] [address] PETER HOFFMANN DO,MPH Blood BLOOD SPECIMEN / Unknown 04/14/2018 10:26 AM CDT 04/14/2018 10:27 AM CDT Sobeida Griffin APRN-HONORIO LAB - CHEMISTRY O RDERABLES Performing Organization Address [facility] Co de Phone Number [facility] [phone] [place] [address] * CYTOMEGALOVIRUS DNA RT-PCR QUANT (03/03/2018 10:05 AM CDT) Only the most recent of3 resultswithin the time period is included. Source EDTA WHOLE BLOOD [facility] Cytomegalovirus DNA Quantitative Real Time PCR TNP IU/mL [facility] Comment: TEST(S) NOT PERFORMED: CMV DNA, QN REAL TIME PCR CMV DNA, QN PCR * Test not performed * * Due to a laboratory error, we are * * unable to perform this test. * * Please accept our apology to you * * and your patient. Sample exceeded * * stability due to incorrect * * storage. * Test Performed at: [facility] [address] [place] [address] Zoltan DE SOUZA Microbiology BLOOD SPECIMEN / Unknown 03/03/2018 10:05 AM CDT 03/03/2018 10:06 AM CDT Sobeida Griffin SLIP OPERATOR-ESTHETICIAN/OWNER LAB - MICROBIOLOG Y ORDERABLES [facility] [address] [place] [address] * CT ABDOMEN MULTI PHASE W CONT [...] follow-up recommended. Dictated by Ramon Sandoval MD (plant operations vice president). I, Dr. ISRAEL CORTÉS M.D. have personally reviewed and interpreted this examination/study. This report was electronically signed by ISRAEL CORTÉS M.D. on 12/26/2017 3:35 PM . Narrative 12/26/2017 3:35 [...] follow-up recommended. Dictated by Ramon Sandoval MD (plant operations vice president). I, Dr. ISRAEL CORTÉS M.D. have personally [...] (ABNORMAL) CHEM PROFILE (EXTERNAL RESULT ENTRY) (12/12/2017) Pathologist [facility] Glucose (EXTERNAL RESULT) 198(H) mg/dl BUN (EXTERNAL [...] * (ABNORMAL) GLUCOSE ACCUCHECK (11/14/2017 11:15 AM PAPERHANGER PIPE) Only the most recent of129 resultswithin the time period is included. Pathologist [facility] Glucose, Fingerstick 262(H) 70-115mg/d L mg/dL [facility] RALS (EVIN) Comment:D[employer] Supervisor: KALI DOMINGOY 11/14/2017 11:1 5 AM P[facility]ERHANGER PIPE Janae Diaz MD LAB - CHEMISTRY LUIS ENRIQUE CELIS [facility] Organization Address City/State/ZIP Co de Phone Number [facility] ZULEYKA (EVIN) * XR ABDOMEN KUB PORTABLE (11/09/2017 6:39 AM PAPERHANGER PIPE) Only the most recent of5 resultswithin the time period is included. Anatomical Region Laterality Modality Other Impressions 11/09/2017 2:35 PM [facility]HANGER PIPE IMPRESSION: There are multiple mildly dilated small bowel loops measuring up to 4.9 cm in diameter which could represent ileus or obstruction, not significantly changed. The supine radiographs are technically suboptimal for evaluation of pneumoperitoneum. Postsurgical changes of kyphoplasty/vertebroplasty are present inferior lumbar vertebral bodies. Degenerative changes are noted in the spine. Skin staple lines projects over the [id number]. Report dictated by Jenni An MD (plant operations vice president). I, Dr. DASHAWN SUE MD have personally reviewed and interpreted this examination/study. This report was electronically signed by DASHAWN SUE MD on 11/09/2017 2:35 PM . Narrative 11/09/2017 2:35 PM P[facility]ERHANGER PIPE EXAMINATION: PX ABDOMEN 1 VW HISTORY: Ileus [...] the spine. Skinstaple lines projects over the [id number]. Report dictated by Jenni An MD (plant operations vice president). I, Dr. DASHAWN SUE MD have personally reviewed and interpreted thisexamination/study. This report was electronically signed by DASHAWN SUE MD on 11/09/20172:35 PM . Janae Diaz MD DIAGNOSTIC IMAGING O RDERABLES * (ABNORMAL) PTT [facility] (11/08/2017 2:22 PM PAPERHANGER PIPE) Only the most recent of14 resultswithin the time period is included. APTT 20.3(L) 23.0 - 38.[address] [facility] Comment:Suggested therapeuti c range for full dose I.V. heparin therapy for venous thromboembolism is 66.0-91.0 seconds. Blood specimen (specimen) BLOOD SPECIMEN / Unknown 11/08/2017 2:22 PM [facility]ANGER PIPE 11/08/2017 2:58 PM [facility]ANGER [facility]IPE Narrative [facility] - 11/08/2017 3:37 PM PAPERHANGER PIPE Please ensure that the aPTT specimen is received in the clinical lab within 1 hour of collection if it is used for therapeutic heparin monitoring. Processing of heparinized specimens older than 1 hour may result in inaccurate test results. Is patient on Heparin, Argatroban or Dabigatran?->N Janae Diaz MD LAB - COAGULATION OR DERABLES Performing Organization Address [facility] Co de Phone Number [address] [phone] * CARDIOLIPIN ANTIBODY IGA (11/08/2017 2:22 PM PAPERHANGER PIPE) Anticardiolipin Antibody IgA <15.0 <15.[address] [facility] Blood specimen (specimen) BLOOD SPECIMEN / Unknown 11/08/2017 2:22 PM [facility]ER [facility] 11/08/2017 2:58 PM P[facility]ERHANGER PIPE Janae Diaz MD LAB - SEROLOGY ORDER MAYRA Performing Organization Address [facility] Co de Phone Number [address] [phone] * CARDIOLIPIN ANTIBODY IGM (11/08/2017 2:22 PM PAPERHANGER PIPE) Anticardiolipin Antibody IgM <15.0 <15.[address] [facility] Blood specimen (specimen) BLOOD SPECIMEN / Unknown 11/08/2017 2:22 PM [facility]ANGER [facility] 11/08/2017 2:58 PM P[facility]ERHANGER PIPE Janae Diaz MD LAB - SEROLOGY ORDER MAYRA [address] [phone] * CARDIOLIPIN ANTIBODY IGG (11/08/2017 2:22 PM PAPERHANGER PIPE) Anticardiolipin Antibody IgG <15.0 <15.[address] [facility] Blood specimen (specimen) BLOOD SPECIMEN / Unknown 11/08/2017 2:22 PM [facility]HANGER PIPE 11/08/2017 2:58 PM PAPERHANGER PIPE Janae Diaz MD LAB - SEROLOGY ORDER MAYRA Performing Organization Address [facility] de Phone Number [address] [phone] * (ABNORMAL) ANTITHROMBIN III ACTIVITY (11/08/2017 2:22 PM PAPERHANGER PIPE) APTT 20.3(L) 23.0 - 38.[address] [facility] Comment:Suggested therapeuti c range for full dose I.V. heparin therapy for venous thromboembolism is 66.0-91.0 seconds. Antithrombin Activity 88 85 - 130 U/dL [facility] Blood specimen (specimen) BLOOD SPECIMEN / Unknown 11/08/2017 2:22 PM [facility]ANGER PIPE 11/08/2017 2:58 PM [facility]ANGER P[facility] Narrative [facility] - 11/12/2017 11:19 AM PAPERHANGER PIPE Is patient on Heparin, Argatroban or Dabigatran?->N Janae Diaz MD LAB - COAGULATION OR DERABLES Performing Organization Address City/[facility]/ZIP Co de Phone Number [address] [phone] * (ABNORMAL) PROTEIN C FUNCTIONAL (11/08/2017 2:22 PM PAPERHANGER PIPE) APTT 25.8 23.0 - 38.[address] [facility] PT 13.7 12.1 - 14.[address] [facility] Protein C Activity 57(L) 70 - 130 U/dL [facility] Comment: Protein C may be abnormally low in the acute phase of thrombosis, other acute illnesses, liver disease, nephrotic syndrome, vitamin K deficiency, Warfarin therapy, and estrogen-oral contraceptive use. Adult Normal Reference Range. Not applicable to children or adolescents less than age 18 years. INR 1.1 [facility] Blood specimen (specimen) BLOOD SPECIMEN / Unknown 11/08/2017 2:22 PM [facility]HANGER PIPE 11/08/2017 2:58 PM [facility]ANGER [facility] Narrative [facility] - 11/12/2017 10:53 AM P[facility]ERHANGER PIPE Is the patient on Coumadin?->N Janae Diaz MD LAB - CHEMISTRY ORDE RABLES [address] [phone] * CHRIS VIPER VENOM DILUTE (11/08/2017 2:22 PM PAPERHANGER PIPE) APTT 25.8 23.0 - 38.[address] [facility] PT 13.7 12.1 - 14.[address] [facility] INR 1.1 [facility] LA-DRVVT Screen 0.9 <[address]2 [facility] Interpretation Dilute RVV Negative Negative [facility] Blood specimen (specimen) BLOOD SPECIMEN / Unknown 11/08/2017 2:22 PM [facility]ER [facility] 11/08/2017 2:58 PM [facility]ANGER PIPE Janae Diaz MD LAB - COAGUL[place] [address], [facility] [phone] * (ABNORMAL) FACTOR VIII ASSAY (11/08/2017 2:22 PM P[facility]ERHANGER PIPE) Factor VIII Activity 679(H) 45 - 225 U/dL [facility] Comment: Biologic population variability within the Factor VIII Activity reference range is strongly correlated with ABO blood group phenotype. Blood group specific ranges are as follows: BLOOD TYPE O: Factor VIII = 45-180 BLOOD TYPE A: Factor VIII = 60-200 BLOOD TYPE B AND AB COMBINED: Factor VIII = 80-225 Increased levels of Factor VIII Activity may be observed in patients with liver disease, inflammatory disease, uremia, vasculitis and generalized, advanced atherosclerosis. Blood specimen (specimen) BLOOD SPECIMEN / Unknown 11/08/2017 2:22 PM [facility]ER [facility] 11/08/2017 2:58 PM [facility]ANGER P[facility] Narrative [facility] - 11/11/2017 10:23 AM PAPERHANGER PIPE Is this a pre or post-infusion?->NA Janae Diaz MD LAB - COAGULATION OR DERABLES Performing Organization Address City/State/[facility] Co de Phone Number [address] [phone] * (ABNORMAL) PROTEIN S ACTIVITY (11/08/2017 2:22 PM PAPERHANGER PIPE) APTT 25.8 23.0 - 38.[address] [facility] PT 13.7 12.1 - 14.[address] [facility] Protein S Functional 65(L) 70 - 130 U/dL [facility] Comment: Functional Protein S assay is a simple and inexpensive, highly sensitive but only moderately specific screening test for protein S deficiency. Abnormally low results should be confirmed by ordering immunoassays for Total and Free Protein S. Protein S may be abnormally low in the acute phase of thrombosis, other acute illnesses, liver disease, nephrotic syndrome, Vitamin K deficiency, Warfarin therapy, and Estrogen-oral contraceptive use. Adult Normal Reference Range. Generally applicable to children age 1 year and older. INR 1.1 See Comment [facility] Blood specimen (specimen) BLOOD SPECIMEN / Unknown 11/08/2017 2:22 PM [facility]ER P[facility] 11/08/2017 2:58 PM [facility]ANGER P[facility] Narrative [facility] - 11/12/2017 10:53 AM PAPERHANGER PIPE Is the patient on Coumadin?->N Janae Diaz MD LAB - COAGULATION OR DERABLES [address] [phone] * HOMOCYSTEINE BLOOD QUANTITATIVE (11/08/2017 2:22 PM P[facility]ERHANGER PIPE) Homocysteine 8.0 4.4 - 16.2 umol/L [facility] Blood specimen (specimen) BLOOD SPECIMEN / Unknown 11/08/2017 2:22 PM [facility]HANGER PIPE 11/08/2017 2:58 PM PAPERHANGER PIPE Janae Diaz MD LAB - CHEMISTRY ORDE RABLES Performing Organization Address City/[facility]/ZIP Co de Phone Number [address] [phone] * (ABNORMAL) TEG CITRATED KAOLIN (CK) (11/08/2017 2:22 PM PAPERHANGER PIPE) Only the most recent of2 resultswithin the time period is included. G-Clot Strength 4.1(L) 4.5 - 11.0 d/sc [facility] BLOOD [facility]ANK LAB Interpretation TEG See Comment [facility] React-Time 2.3(L) 5.0 - 10.0 MIN [facility] K-Time 3.5(H) 1.0 - 3.0 MIN [facility] LAB Angle A-BB 55.4 53.0 - 72.0 Degrees [facility] MA (CK) BB 45.3(L) 50.0 - 70.0 mm [facility] LY30 8.6(H) 0.0 - 8.0 % [facility] CI-Coagulation Index -0.9 -3.0 - 3.0 [facility] Blood specimen (specimen) 11/08/2017 2:22 PM [facility]ER [facility] 11/08/2017 2:30 PM [facility]ER PIPE Narrative [facility] - 11/08/2017 4:28 PM P[facility]ERHANGER PIPE SEE BELOW TEG Kaolin Sample Type Interpretation TEG Value Hemostasis State R < than 4 min: Enzymatic Hypercoagulability R 11-14 min: Low Clotting Factors R > than 14 min: Very low clotting factors MA 46-54 mm: Low Platelet function MA 41-45 mm: Very low platelet function MA 40 mm or less: Extremely low platelet function MA > 73 mm: Platelet hypercoagulability R < 4 min and Enzymatic and platelet hypercoagulability MA > 73 mm: Angle < 45 deg: Low fibrinogen level LY30 at 7.5% or >, Primary Fibrinolysis CI < than 1.0: LY30 at 7.5% or >, Secondary fibrinolysis CI > than 3.0: LY30 < 7.5%, Prothrombotic state CI > 3.0: Janae Diaz MD LAB - BLOOD BANK ORD JULIO [facility] Organization Address City/State/ZIP Co de Phone Number [facility] BLOOD BANK LAB [address] [place] [address] * LAB MISCELLANEOUS TEST 2 (11/08/2017 2:22 PM P[facility]ERHANGER PIPE) Reference Lab Results SEE SCANNED REPORT [facility] REF LAB NON INTERF Other (qualifier value) 11/08/2017 2:22 PM [facility] 11/08/2017 3:27 PM [facility]ER [facility] Narrative [facility] REF LAB NON INTERF - 11/13/2017 11:19 AM P[facility]ERHANGER PIPE Test Name:->Protrombin Gene Mutation Reference Lab Info:->U DNA Lab Janae Diaz MD LAB - CHEMISTRY LUIS ENRIQUE CELIS Performing Organization Address [facility]/ZIP Co de Phone Number [facility] REF LAB NON INTERF [address] [place] [address] * LAB MISC TEST (11/08/2017 2:22 PM PAPERHANGER PIPE) Reference Lab Results SEE SCANNED REPORT [facility] REF LAB NON INTERF Other (qualifier value) 11/08/2017 2:22 PM [facility]ER [facility] 11/08/2017 3:27 PM P[facility]ERHANGER PIPE Narrative [facility] REF LAB NON INTERF - 11/13/2017 11:18 AM P[facility]ANGER PIPE Test Name:->Factor V Leiden Reference Lab Info:->U DNA LAB Janae Diaz MD LAB SEND OUT Performing Organization Address [facility] Co de Phone Number [facility] REF LAB NON INTERF [address] [place] [address] * PATHOLOGY/GENETICS HISTORICAL-ONBASE (11/08/2017) 11/08/2017 Historical Provider LAB - CHEMISTRY O RDERABLES Performing Organization Address [facility]/ZIP Co de Phone Number [facility] [address] * US LIVER TRANSPLANT (11/07/2017 5:34 PM PAPERHANGER PIPE) Only the most recent of2 resultswithin the time period is included. Anatomical Region Laterality Modality Other Impressions 11/08/2017 4:46 PM [facility]ANGER PIPE IMPRESSION: 1. Normal sonographic appearance of the transplant liver. 2. Patent hepatic vasculature. Dictated by Royce Carter MD (plant operations vice president). This report was approved by Royce Carter on 11/08/2017 9:47 AM . I, Dr. LESLY FERMIN M.D. have personally reviewed and interpreted this examination/study. This report was electronically signed by LESLY FERMIN M.D. on 11/08/2017 4:46 PM . Narrative 11/08/2017 4:46 PM [facility]ER [facility] EXAMINATION: 1. Limited right upper quadrant abdominal [...] hepatic vasculature. Dictated by Royce Carter MD (plant operations vice president). This report was approved by Royce Carter on 11/08/2017 9:47 AM . I, Dr. LESLY FERMIN M.D. have personally reviewed and interpreted thisexamination/study. This report was electronically signed by LESLY FERMIN M.D. on 11/08/20174:46 PM . Janae Diaz MD US ORDERABLES * NM HEPATOBILIARY WO CCK EF (11/07/2017 1:35 PM P[facility]ERHANGER PIPE) Anatomical Region Laterality Modality Abdomen Other Impressions 11/07/2017 3:02 PM [facility]ANGER [facility] Procedure: Hepatobiliary scan. History: 62-year-old male with elevated bilirubin status post liver transplantation. Technique: 10.23 mCi of [id number] injected IV; dynamic images of the abdomen [...] electronically signed by JJ MANCILLA D.O. on 11/07/2017 3:02 PM . Narrative Procedure Note Jj Mancilla, DO - 12/11/2017 IMPRESSION Procedure: Hepatobiliary scan. History: 62-year-old male with elevated bilirubin status post livertransplantation. Technique: 10.23 mCi of [id number] injected IV; dynamic images of theabdomen were [...] Janae Diaz MD NM ORDERABLES * PT-INR [facility] (11/07/2017 5:19 AM PAPERHANGER PIPE) Only the most recent of49 resultswithin the time period is included. PT 13.9 12.1 - 14.[address] [facility] INR 1.[address] [facility] Comment: Suggested therapeutic range for low-intensity coumadin therapy for venous thromboembolism prophylaxis is an INR of 2.0-3.0. For high risk patients (Mitral Valve Prosthesis, Atrial Fibrillation, history of TIA/stroke), suggested prophylactic therapeutic range is an INR of 2.5-3.5. Blood specimen (specimen) BLOOD SPECIMEN / Unknown 11/07/2017 5:19 AM [facility]ANGER PIPE 11/07/2017 5:24 AM [address]ANGER PIPE Narrative [facility] - 11/07/2017 5:50 AM PAPERHANGER PIPE Is patient on Heparin, Argatroban or Dabigatran?->N Janae Diaz MD LAB - COAGULATION OR DERABLES [address] [phone] * LACTIC ACID BLOOD (11/04/2017 11:38 AM PAPERHANGER PIPE) Only the most recent of5 resultswithin the time period is included. [facility] Lactic Acid-Stat 0.6 0.5 - 2.2 mmol/L [facility] Blood specimen (specimen) BLOOD SPECIMEN / Unknown 11/04/2017 11:38 AM P[facility]ERHANGER PIPE 11/04/2017 11:43 AM PAPERHANGER PIPE Janae Diaz MD LAB - CHEMISTRY ORDE RABLES [address] [phone] * (ABNORMAL) BLOOD GASES ART (11/04/2017 11:38 AM PAPERHANGER PIPE) Only the most recent of10 resultswithin the time period is included. Pathologist [facility] pH Arterial 7.40 7.35 - 7.45 [facility] pCO2 Arterial 34(L) 35 - [address] [facility] pO2 Arterial 75 71 - [address] [facility] HCO3 Arterial 20.3(L) 22.0 - 26.0 mmol/L [facility] TCO2 Arterial 21.3(L) 25.0 - 29.0 mmol/L [facility] Base Excess Arterial -3.9(L) -2.0 - 2.0 mmol/L [facility] Hemoglobin Arterial 10.7(L) 13.5 - 17.5 g/dL [facility] Oxyhemoglobin Arterial 92.6(L) 95.0 - 100.0 % [facility] Carboxyhemoglobin 0.6 0.0 - 3.0 % [facility] Methemoglobin 0.5 0.0 - 2.0 % [facility] FI O2 Arterial 40.0 % [facility] Blood specimen (specimen) BLOOD SPECIMEN / Unknown 11/04/2017 11:38 AM P[facility]HANGER PIPE 11/04/2017 11:43 AM PAPERHANGER PIPE Janae Diaz MD LAB - BLOOD GASES OR DERABLES Performing Organization Address City/[facility]/ZIP Co de Phone Number [address] [phone] * (ABNORMAL) SVO2 FOR RECALIBRATION (11/04/2017 5:25 AM PAPERHANGER PIPE) Pathologist [facility] SVO2 for Recalibration 84.2(H) 66.0 - 77.0 % [facility] Blood specimen (specimen) BLOOD SPECIMEN / Unknown 11/04/2017 5:25 AM P[facility]ERHANGER PIPE 11/04/2017 5:31 AM PAPERHANGER PIPE Janae Diaz MD LAB - CHEMISTRY ORDE RABLES [address] [phone] * (ABNORMAL) FIBRINOGEN ACTIVITY (11/03/2017 9:31 PM PAPERHANGER PIPE) Only the most recent of5 resultswithin the time period is included. Fibrinogen Clauss 127(L) 200 - 400 mg/dL [facility] Blood specimen (specimen) BLOOD SPECIMEN / Unknown 11/03/2017 9:31 PM PAPERHANGER PIPE 11/03/2017 9:36 PM PAPERHANGER PIPE Janae Diaz MD LAB - COAGULATION OR DERABLES [facility] [address] [place] [address] * XR CHEST 1VW PORTABLE (11/03/2017 9:23 PM PAPERHANGER PIPE) Only the most recent of7 resultswithin the time period is included. Anatomical Region Laterality Modality Chest Other Impressions 11/04/2017 1:59 PM PAPERHANGER PIPE IMPRESSION: The endotracheal tube tip superimposes midthoracic trachea. The gastric tube terminates in gastric body. A left internal jugular approach Seaboard-Akiko catheter terminates in main pulmonary artery. A drain/catheter traverses the upper abdomen. Lung volumes are small. Mild bibasilar atelectasis are again noted. Left lower lobe opacification may represents pleural effusion with underlying atelectasis/airspace disease. No pneumothorax is identified. The cardiomediastinal silhouette is unchanged. Dictated by Kristyn Calzada MD (plant operations vice president). I, Dr. WALTER BACA M.D. have personally reviewed and interpreted this examination/study. This report was electronically signed by WALTER BACA M.D. on 11/04/2017 1:59 PM . Narrative 11/04/2017 1:59 PM PAPERHANGER PIPE EXAMINATION: PX CHEST 1 VW HISTORY: cvc [...] is unchanged. Dictated by Kristyn Calzada MD (plant operations vice president). I, Dr. WALTER BACA M.D. have personally reviewed and interpreted thisexamination/study. This report was electronically signed by WALTER BACA M.D. on 11/04/20171:59 PM . Janae Diaz MD DIAGNOSTIC IMAGING O RDERABLES * LACTIC ACID WHOLE BLOOD (11/03/2017 7:17 PM PAPERHANGER PIPE) Only the most recent of5 resultswithin the time period is included. Lactic Acid Whole Blood 1.1 0.5 - 3.4 mmol/L [facility] Blood specimen (specimen) BLOOD SPECIMEN / Unknown 11/03/2017 7:17 PM PAPERHANGER PIPE 11/03/2017 7:22 PM PAPERHANGER PIPE Jay Jay Heredia MD LAB - CHEMISTRY LUIS ENRIQUE CELIS Performing Organization Address City/[facility]/ZIP Co de Phone Number [address] [phone] * CHLORIDE WHOLE BLOOD (11/03/2017 7:17 PM PAPERHANGER PIPE) Only the most recent of5 resultswithin the time period is included. Chloride Whole Blood 105 101 - 111 mmol/L [facility] Blood specimen (specimen) BLOOD SPECIMEN / Unknown 11/03/2017 7:17 PM P[facility]ERHANGER PIPE 11/03/2017 7:22 PM PAPERHANGER PIPE Jay Jay Heredia MD LAB - CHEMISTRY [facility] EN[facility] CEL[facility] [address] [phone] * (ABNORMAL) CALCIUM IONIZED WHOLE BLOOD (11/03/2017 7:17 PM PAPERHANGER PIPE) Only the most recent of5 resultswithin the time period is included. Ionized Calcium Whole Blood 1.05 mmol/L [facility] Adjusted Ionized Calcium 1.07(L) 1.19 - 1.34 mmol/L [facility] pH Whole Blood 7.43 7.35 - 7.45 [facility] Blood specimen (specimen) BLOOD SPECIMEN / Unknown 11/03/2017 7:17 PM P[facility]ERHANGER PIPE 11/03/2017 7:22 PM PAPERHANGER PIPE Jay Jay Heredia MD LAB - CHEMISTRY [facility] ENRIQUE CELIS [address] [phone] * POTASSIUM WHOLE BLD (11/03/2017 7:17 PM PAPERHANGER PIPE) Only the most recent of5 resultswithin the time period is included. Potassium Whole Blood 4.9 3.5 - 5.5 mmol/L [facility] Blood specimen (specimen) BLOOD SPECIMEN / Unknown 11/03/2017 7:17 PM P[facility]ERHANGER PIPE 11/03/2017 7:22 PM PAPERHANGER PIPE Jay Jay Heredia MD LAB - CHEMISTRY LUIS ENRIQUE CELIS Performing Organization Address [facility]/[place] [address], [facility] [phone] * (ABNORMAL) SODIUM WHOLE BLOOD (11/03/2017 7:17 PM PAPERHANGER PIPE) Only the most recent of5 resultswithin the time period is included. Sodium Whole Blood 132(L) 135 - 145 mmol/L [facility] Blood specimen (specimen) BLOOD SPECIMEN / Unknown 11/03/2017 7:17 PM PAPERHANGER PIPE 11/03/2017 7:22 PM PAPERHANGER PIPE Jay Jay Heredia MD LAB - CHEMISTRY LUIS ENRIQUE CELIS Performing Organization Address City/[facility]/ZIP Co de Phone Number [address] [phone] * (ABNORMAL) GLUCOSE WHOLE BLOOD (11/03/2017 7:17 PM PAPERHANGER PIPE) Only the most recent of5 resultswithin the time period is included. Glucose Whole Blood 250(H) 70 - 110 mg/dL [facility] Blood specimen (specimen) BLOOD SPECIMEN / Unknown 11/03/2017 7:17 PM P[facility]ERHANGER PIPE 11/03/2017 7:22 PM PAPERHANGER PIPE Jay Jay Heredia MD LAB - CHEMISTRY LUIS ENRIQUE CELIS [facility] Organization Address City/State/ZIP Co de Phone Number [facility] [address] [place] [address] * (ABNORMAL) BLOOD GASES ART COMPLETE [facility] OR (11/03/2017 6:20 PM PAPERHANGER PIPE) Only the most recent of3 resultswithin the time period is included. pH Arterial 7.41 7.35 - 7.45 [facility] pCO2 Arterial 40 35 - [address] [facility] pO2 Arterial 190(H) 71 - [address] [facility] HCO3 Arterial 24.5 22.0 - 26.0 mmol/L [facility] TCO2 Arterial 25.7 25.0 - 29.0 mmol/L [facility] Base Excess Arterial -0.1 -2.0 - 2.0 mmol/L [facility] Hemoglobin Arterial 11.2(L) 13.5 - 17.5 g/dL [facility] Oxyhemoglobin Arterial 97.5 95.0 - 100.0 % [facility] Carboxyhemoglobin 0.3 0.0 - 3.0 % [facility] Methemoglobin 0.3 0.0 - 2.0 % [facility] FI O2 Arterial 60.0 % [facility] Ionized Calcium Whole Blood 1.10 mmol/L [facility] Adjusted Ionized Calcium 1.11(L) 1.19 - 1.34 mmol/L [facility] Sodium Whole Blood 133(L) 135 - 145 mmol/L [facility] Potassium Whole Blood 5.5 3.5 - 5.5 mmol/L [facility] Chloride Whole Blood 106 101 - 111 mmol/L [facility] Glucose Whole Blood 230(H) 70 - 110 mg/dL [facility] Lactic Acid Whole Blood 1.3 0.5 - 3.4 mmol/L [facility] Blood specimen (specimen) 11/03/2017 6:20 PM PAPERHANGER PIPE 11/03/2017 6:20 PM PAPERHANGER PIPE Janae Diaz MD LAB - BLOOD GASES OR DERABLES Performing Organization Address [facility]/ZIP Co de Phone Number [address] [phone] * (ABNORMAL) URINALYSIS W/MICROSCOPIC NO CULTURE (11/03/2017 3:30 AM PAPERHANGER PIPE) Only the most recent of2 resultswithin the time period is included. Color UA Lala(A) Straw, Yellow, Colorless, Light Yellow [facility] Clarity UA Clear Clear [facility] Specific [place] UA 1.023 1.001 - 1.030 [facility] pH UA 6.5 5.0 - 8.0 [facility] Protein UA Trace(A) <=20 mg/dL [facility] Glucose UA >1000(A) Negative mg/dL [facility] Ketone UA Negative Negative mg/dL [facility] Bilirubin UA Negative Negative mg/dL [facility] Blood UA Negative Negative [facility] Nitrite UA Negative Negative [facility] Leukocyte Esterase Negative Negative [facility] Urobilinogen UA >12.0(H) <2.0 mg/dL [facility] RBC UA 3 0 - 8 /HPF [facility] WBC UA <1 0 - 2 /HPF [facility] Mucus UA Rare(A) None /LPF [facility] Hyaline Casts UA 1 0 - 2 /LPF [facility] Urine specimen (specimen) 11/03/2017 3:30 AM PAPERHANGER PIPE 11/03/2017 3:30 AM PAPERHANGER PIPE Janae Diaz MD LAB - URINALYSIS ORD ERABLES Performing Organization Address [facility]/ZIP Co de Phone Number [address] [phone] * DRUG ABUSE PANEL 10-20+ETHANOL URINE NO CONFIRM (11/03/2017 3:30 AM PAPERHANGER PIPE) Only the most recent of3 resultswithin the time period is included. Amphetamines Screen Urine Negative Negative: < 1000 ng/mL [facility] Barbiturates Screen Urine Negative Negative: < 200 ng/mL [facility] Benzodiazepine Screen Urine Negative Negative: < 200 ng/mL [facility] Opiates Urine Negative Negative: < 300 ng/mL [facility] Cocaine Metabolites Urine Negative Negative: < 300 ng/mL [facility] Phencyclidine Screen Urine Negative Negative: < 25 ng/ml [facility] Cannabinoids Screen Urine Negative Negative: <50 ng/mL [facility] Methadone Screen Urine Negative Negative: < 300 ng/mL [facility] Urine specimen (specimen) URINE / Unknown 11/03/2017 3:30 AM PAPERHANGER PIPE 11/03/2017 3:30 AM [facility]ERHANGER PIPE Narrative [facility] - 11/03/2017 3:52 AM PAPERHANGER PIPE The Urine Toxicology Screening Panel does not screen for Propoxyphene, Meprobamate, Carisoprodol, Trazodone, ebqm-uvv-qtslqad medications and/or volatiles (Acetone, Isopropanol, Methanol or Ethylene Glycol). Ethanol, Salicylate, Acetaminophen, Tricyclic Antidepressants and several therapeutic drugs may be individually assayed in serum or plasma specimen. Toxicology testing by the [facility] is an aid to medical diagnosis and treatment of patients. No documented chain of custody was maintained. Results are intended to be used for clinical purposes only. Janae Diaz MD LAB - URINE CHEMISTR Y ORDERABLES [address] [phone] * TYPE + SCREEN PANEL (11/02/2017 9:16 PM PAPERHANGER PIPE) Only the most recent of5 resultswithin the time period is included. Typem A POS [facility] Antibody Screen NEG [facility] Blood specimen (specimen) 11/02/2017 9:16 PM PAPERHANGER PIPE 11/02/2017 9:32 PM PAPERHANGER PIPE Janae Diaz MD LAB - BLOOD BANK ORD ERABLES [facility] [address] * CROSSMATCH RBC LEUKOREDUCED (11/02/2017 9:16 PM PAPERHANGER PIPE) Only the most recent of3 resultswithin the time period is included. Unit RBC-WBCD [id number] returned [facility]LOOD [facility] PRODUCTS (BEAKER) Unit RBC-WBCD [id number] returned [facility]LO[facility] PRODUCTS (BEAKER) 11/02/2017 9:16 PM PAPERHANGER PIPE 11/02/2017 9:33 PM PAPERHANGER PIPE Narrative H BLOOD BANK PRODUCTS (BEAKER) - 11/02/2017 9:16 PM PAPERHANGER PIPE # of Units->2 Janae Diaz MD LAB - BLOOD BANK ORD Investment UndergroundBLES [facility] BLOOD BANK PRODUCTS (BEAKER) * PREPARE FFP UNIT(S) (11/02/2017 9:16 PM PAPERHANGER PIPE) Unit FFP [id number] transfused [facility] (BEAKER) Unit ABO AB [facility] (BEAKER) Unit Rh POS [facility] (BEAKER) Unit Number [id number] [facility] (BEAKER) Unit Status Transfused [facility] BLO OD BANK PRODUCTS (BEAKER) Unit FFP [id number] transfused [facility] (BEAKER) Unit ABO AB [facility] (BEAKER) Unit Rh POS [facility] (BEAKER) Unit Number [id number] [facility] (BEAKER) Unit Status Transfused [facility] BLO OD BANK PRODUCTS (BEAKER) Unit FFP [id number] returned [facility] (BEAKER) Unit FFP [id number] returned [facility] (BEAKER) Unit FFP [id number] returned [facility] (BEAKER) Unit FFP [id number] returned [facility] (BEAKER) 11/02/2017 9:16 PM PAPERHANGER PIPE 11/02/2017 9:33 PM PAPERHANGER PIPE Narrative [facility] BLOOD BANK PRODUCTS ([facility]) - 11/02/2017 9:16 PM PAPERHANGER PIPE # of Units->6 Janae Diaz MD LAB - BLOOD BANK ORD ERABLES [facility]LOOD [facility] PRODUCTS ([facility]) * HLA XM SEROLOGIC DONOR (11/02/2017 3:17 PM PAPERHANGER PIPE) XM B Donor ID [id number] [facility] ([facility]) XM B Relation Donor [facility] ([facility]) XM Test Date 11/04/2017 [facility] ([facility]) XM T Tyson Neg [facility] [place] [facility] ([facility]) XM B Serum Date 11/02/2017 [facility] ([facility]) Comment: This test was developed and its performance characteristics determined bythe [facility]. It has not been cleared or approved by theU.S. Food and Drug Administration. The FDA has determined that suchclearance or approval is not necessary. This test is used for clinicalpurposes. It should not be regarded as investigational or for research.This laboratory is certified under the Clinical Laboratory ImprovementAmendments of 1988 (CLIA-88) as qualified to perform high complexityclinical laboratory testing. CLIA ID# [id number] at: [facility], [address] @ [place] [address]Sww Director: Andrew Jones MD, XM B Tyson Neg S [place] [facility] ([facility]) XM T [facility]HG Neg [facility] ([facility]) XM B [facility]HG Neg SL U [facility] ([facility]) Blood specimen (specimen) BLOOD SPECIMEN / Unknown 11/02/2017 3:17 PM PAPERHANGER PIPE 11/04/2017 3:17 PM PAPERHANGER PIPE Janae Diaz MD LAB - BLOOD BANK ORD ERABLES [facility] ([facility]) [address] [address], [place] * EKG 12-LEAD (11/02/2017 12:00 AM PAPERHANGER PIPE) Only the most recent of3 resultswithin the time period is included. Pathologist [facility] RADIOLOGY Comment: Exam Date/Time: Nov 02 2017 20:41:57 Test Reason : Blood Pressure : / mmHG Vent. Rate : 065 BPM Atrial Rate : 065 BPM P-R Int : 194 ms QRS Dur : 098 ms QT Int : 452 ms P-R-T Axes : 038 -06 042 degrees QTc Int : 470 ms Normal sinus rhythm Normal ECG When compared with ECG of 02-AUG-2016 10:19, Non-specific change in ST segment in Inferior leads Confirmed by Cristhian Chavira, LGeronimo ([id number]), design editor PATRICIA STERLING ([id number]) on 11/06/2017 12:15:11 PM Referred By: REFERRING NO Confirmed By:Aniya Chavira M.D. 11/02/2017 Janae Diaz MD ECG ORDERABLES Performing Organization Address City/[facility]/ZIP Co de Phone Number [facility] RADIOLOGY * BLOOD TYPE ABO+ RH PANEL (08/06/2017 12:00 PM PAPERHANGER PIPE) Only the most recent of2 resultswithin the time period is included. Pathologist [facility] Typem A POS [facility] Blood specimen (specimen) BLOOD SPECIMEN / Unknown 08/06/2017 12:00 PM PAPERHANGER PIPE 08/06/2017 12:30 PM PAPERHANGER PIPE Tino Santiago MD LAB - BLOOD BANK ORD ERABLES Performing Organization Address City/[facility]/ZIP Co de Phone Number [facility] [address] * (ABNORMAL) URINALYSIS REFLEX TO MICROSCOPIC NO CULTURE (08/06/2017 11:43 AM PAPERHANGER PIPE) Only the most recent of2 resultswithin the time period is included. Pathologist [facility] Color UA Lala(A) Straw, Yellow, Colorless, Light Yellow [facility] Clarity UA Clear Clear [facility] Specific [place] UA 1.023 1.001 - 1.030 [facility] pH UA 5.5 5.0 - 8.0 [facility] Protein UA Trace(A) <=20 mg/dL [facility] Glucose UA 300(A) Negative mg/dL [facility] Ketone UA Negative Negative mg/dL [facility] Bilirubin UA Negative Negative mg/dL [facility] Blood UA Negative Negative [facility] Nitrite UA Negative Negative [facility] Leukocyte Esterase Negative Negative [facility] Urobilinogen UA 3.0(H) <2.0 mg/dL [facility] RBC UA 2 0 - 8 /HPF [facility] WBC UA 1 0 - 2 /HPF [facility] Bacteria UA Rare Rare, Occasional, None /HPF [facility] Hyaline Casts UA 1 0 - 2 /LPF [facility] Urine specimen (specimen) URINE SPECIMEN OBTAINED BY CLEAN CATCH PROCEDURE / Unknown 08/06/2017 11:43 AM PAPERHANGER PIPE 08/06/2017 12:23 PM PAPERHANGER PIPE Tino Santiago MD LAB - URINALYSIS ORD ERABLES [address] [phone] * QUANTIFERON TB-GOLD INC (08/06/2017 11:43 AM PAPERHANGER PIPE) Only the most recent of2 resultswithin the time period is included. QuantiFERON TB Gold Negative Negative [facility] ([facility]) Comment: The specimen received for QuantiFERON testing was incubated by the ordering institution. Specific procedures outlined in our Directory of Services and in the package insert for the QuantiFERON Gold (In Tube) test must be followed to enable for proper stimulation of cells for the production of interferon gamma. QuantiFERON Criteria Comment [facility] ([facility]) Comment: To be considered positive a specimen [...] values. QuantiFERON TB Antigen Value 0.11 IU/mL [facility] ([facility]) QuantiFERON Nil Value 0.37 IU/mL [facility] ([facility]) QuantiFERON Mitogen Value 5.08 IU/mL [facility] ([facility]) QFT TB Ag minus Nil Value <0.00 IU/mL [facility] ([facility]) Interpretation Comment [facility] ([facility]) Comment: The QuantiFERON TB Gold (in Tube) [...] BLOOD SPECIMEN / Unknown 08/06/2017 11:43 AM PAPERHANGER PIPE 08/06/2017 12:27 PM PAPERHANGER PIPE Narrative [facility] ([facility]) - 08/11/2017 5:07 PM PAPERHANGER PIPE Performed at: [address] [id number] Class A Regional Drivers: Tio Segal PhD, Phone: [phone] Tino Santiago MD LAB - SEROLOGY ORDER MAYRA [facility] ([facility]) [address] [place] [address], [facility] * CANCER ANTIGEN (CA) 19-9 (08/06/2017 11:43 AM PAPERHANGER PIPE) Only the most recent of2 resultswithin the time period is included. CA 19-9 22.830 <35.000 U/mL [facility] Comment: CA 19-9 values will vary depending on testing procedure used. Results are not comparable across different methods. CA 19-9 values obtained in [facility] using a Tulio Lyn Immunoassay. Blood specimen (specimen) BLOOD SPECIMEN / Unknown 08/06/2017 11:43 AM PAPERHANGER PIPE 08/06/2017 12:26 PM PAPERHANGER PIPE Tino Santiago MD LAB - CHEMISTRY ORDE [facility] Performing Organization Address City/[facility]/ZIP Co de Phone Number [facility] [address] [phone] * NICOTINE + METABOLITES BLOOD (08/06/2017 11:43 AM PAPERHANGER PIPE) Only the most recent of2 resultswithin the time period is included. Pathologist [facility] Nicotine None Detected ng/mL [facility] ([facility]) Comment: Nicotine levels greater than 2.0 are consistent with the use of tobacco or tobacco cessation products. Cotinine None Detected ng/mL [facility] ([facility]) Comment: Cotinine levels greater than 20.0 are consistent with the use of tobacco or tobacco cessation products. Blood specimen (specimen) BLOOD SPECIMEN / Unknown 08/06/2017 11:43 AM PAPERHANGER PIPE 08/06/2017 12:26 PM PAPERHANGER PIPE Narrative [facility] ([facility]) - 08/09/2017 9:17 AM PAPERHANGER PIPE Performed at: [address] [place] [address] [id number] Class A Regional Drivers: Peter Treadwell MD, Phone: [phone] Tino Santiago MD LAB - CHEMISTRY LUIS ENRIQUE CELIS Performing Organization Address [facility] Co de Phone Number [facility] ([facility]) [address] [place] [address] * HIV-1 HIV-2 ANTIGEN/ANTIBODY (08/06/2017 11:43 AM PAPERHANGER PIPE) Only the most recent of2 resultswithin the time period is included. [facility] HIV Antigen/Antibod y 1 & 2 Non-reacti ve Non-react rosendo [facility] Comment: Neither HIV-1 p24 Antigen nor HIV-1/HIV-2 Antibodies are detected. Blood specimen (specimen) BLOOD SPECIMEN / Unknown 08/06/2017 11:43 AM PAPERHANGER PIPE 08/06/2017 12:24 PM PAPERHANGER PIPE Tino Santiago MD LAB - HEMATOLOGY CARRI KIM Performing Organization Address City/[facility]/ZIP Co de Phone Number [facility] [place] [address], [facility] [phone] * PSA FREE + TOTAL PANEL (08/06/2017 11:43 AM PAPERHANGER PIPE) Only the most recent of2 resultswithin the time period is included. PSA Total <0.1 0.0 - 4.0 ng/mL [facility] PSA Free <0.10 0.00 - 0.50 ng/mL [facility] PSA % Free See Comment % [facility] Comment:Unable to calculate % Free PSA due to Free and/or Total PSA concentration(s) being <0.1 ng/mL. Blood specimen (specimen) BLOOD SPECIMEN / Unknown 08/06/2017 11:43 AM PAPERHANGER PIPE 08/06/2017 12:24 PM PAPERHANGER PIPE Tino Santiago MD LAB - CHEMISTRY LU[facility] ENRIQUE CELIS [address] [phone] * RPR (08/06/2017 11:43 AM PAPERHANGER PIPE) Only the most recent of2 resultswithin the time period is included. RPR Non-reacti ve Non-reacti ve [facility] Blood specimen (specimen) BLOOD SPECIMEN / Unknown 08/06/2017 11:43 AM PAPERHANGER PIPE 08/06/2017 12:24 PM PAPERHANGER PIPE Tino Santiago MD LAB - CHEMISTRY LUIS ENRIQUE CELIS Performing Organization Address City/[facility]/ZIP Co de Phone Number [address] [phone] * RUBEOLA ANTIBODY IGG (08/06/2017 11:43 AM PAPERHANGER PIPE) Only the most recent of2 resultswithin the time period is included. Measles (Rubeola) Antibody IgG >300.0 Immune >29.9 AU/mL [facility] Comment: Negative <25.0 Equivocal 25.0 - 29.9 Positive >29.9 Presence of antibodies to Rubeola is presumptive evidence of immunity except when acute infection is suspected. Blood specimen (specimen) BLOOD SPECIMEN / Unknown 08/06/2017 11:43 AM PAPERHANGER PIPE 08/06/2017 12:26 PM PAPERHANGER PIPE Narrative [facility] - 08/07/2017 3:18 PM PAPERHANGER PIPE Performed at: [address] [place] [address] [id number] Class A Regional Drivers: Tio Segal PhD, Phone: [phone] Tino Santiago MD LAB - CHEMISTRY LUIS ENRIQUE CELIS Performing Organization Address [facility] de Phone Number [address] * VARICELLA ZOSTER ANTIBODY IGG (08/06/2017 11:43 AM PAPERHANGER PIPE) [facility] Varicella zoster Virus Antibody IgG >4000 Immune >165 index [facility] Comment: Negative <135 Equivocal 135 - 165 Positive >165 A positive result generally indicates exposure to the pathogen or administration of specific immunoglobulins, but it is not indication of active infection or stage of disease. Blood specimen (specimen) BLOOD SPECIMEN / Unknown 08/06/2017 11:43 AM PAPERHANGER PIPE 08/06/2017 12:26 PM PAPERHANGER PIPE Narrative [facility] - 08/07/2017 3:18 PM PAPERHANGER PIPE Performed at: [address] [place] [address] [id number] Class A Regional Drivers: Tio Segal PhD, Phone: [phone] Tino Santiago MD LAB - CHEMISTRY LUIS ENRIQUE CELIS Performing Organization Address [facility] de Phone Number [address] * (ABNORMAL) TRANSFERRIN (08/06/2017 11:43 AM PAPERHANGER PIPE) Only the most recent of3 resultswithin the time period is included. [facility] Transferrin 161(L) 174 - 382 mg/dL [facility] Transferrin Saturation % 80(H) 16 - 50 % [facility] Blood specimen (specimen) BLOOD SPECIMEN / Unknown 08/06/2017 11:43 AM PAPERHANGER PIPE 08/06/2017 12:24 PM PAPERHANGER PIPE Tino Santiago MD LAB - CHEMISTRY LUIS ENRIQUE CELIS Performing Organization Address [facility]/ZIP Co de Phone Number [facility] [address] [phone] * RUBELLA ANTIBODY IGG (08/06/2017 11:43 AM PAPERHANGER PIPE) Only the most recent of2 resultswithin the time period is included. [facility] Rubella Antibody IgG Quantitative >33.00 Immune >0.99 index [facility] Comment: Non-immune <0.90 Equivocal 0.90 - 0.99 Immune >0.99 Blood specimen (specimen) BLOOD SPECIMEN / Unknown 08/06/2017 11:43 AM PAPERHANGER PIPE 08/06/2017 12:24 PM PAPERHANGER PIPE Narrative [facility] - 08/07/2017 3:10 AM PAPERHANGER PIPE Performed at: [address] [place] [id number] Class A Regional Drivers: Tio Segal PhD, Phone: [phone] Tino Santiago MD LAB - SEROLOGY ORDER MAYRA Performing Organization Address [facility] Co de Phone Number [facility] [address] [place] [address] * HEPATITIS B CORE ANTIBODY (08/06/2017 11:43 AM PAPERHANGER PIPE) Only the most recent of3 resultswithin the time period is included. [facility] HBc Antibody Total Non-reacti ve Non-reacti ve [facility] Blood specimen (specimen) BLOOD SPECIMEN / Unknown 08/06/2017 11:43 AM PAPERHANGER PIPE 08/06/2017 12:24 PM PAPERHANGER PIPE Tino Santiago MD LAB - CHEMISTRY LUIS ENRIQUE CELIS Performing Organization Address City/[facility]/[place] [address], [facility] [phone] * ALCOHOL ETHYL BLOOD (08/06/2017 11:43 AM PAPERHANGER PIPE) Only the most recent of3 resultswithin the time period is included. [facility] Interpretation Ethanol None Detected None Detected mg/dL [facility] Comment:Ethanol levels less than 10 mg/dL are resulted as None detected . Blood specimen (specimen) BLOOD SPECIMEN / Unknown 08/06/2017 11:43 AM PAPERHANGER PIPE 08/06/2017 12:24 PM PAPERHANGER PIPE Tino Santiago MD LAB - CHEMISTRY LUIS ENRIQUE CELIS [address] [phone] * (ABNORMAL) FERRITIN (08/06/2017 11:43 AM PAPERHANGER PIPE) Only the most recent of3 resultswithin the time period is included. Pathologist [facility] Ferritin 323(H) 22 - 275 ng/mL [facility] Blood specimen (specimen) BLOOD SPECIMEN / Unknown 08/06/2017 11:43 AM PAPERHANGER PIPE 08/06/2017 12:24 PM PAPERHANGER PIPE Tino Santiago MD LAB - CHEMISTRY LUIS ENRIQUE CELIS Performing Organization Address [facility] Co de Phone Number [address] [phone] * CYTOMEGALOVIRUS ANTIBODY IGG BLOOD (08/06/2017 11:43 AM PAPERHANGER PIPE) Only the most recent of2 resultswithin the time period is included. Pathologist [facility] Cytomegalovirus Antibody IgG <0.60 0.00 - 0.59 U/mL [facility] Comment: Negative <0.60 Equivocal 0.60 - 0.69 Positive >0.69 Blood specimen (specimen) BLOOD SPECIMEN / Unknown 08/06/2017 11:43 AM PAPERHANGER PIPE 08/06/2017 12:24 PM PAPERHANGER PIPE Narrative [facility] - 08/08/2017 5:12 AM PAPERHANGER PIPE Performed at: [address] [place] [address] [address] [place], [place] [id number] Class A Regional Drivers: Tio Segal PhD, Phone: [phone] Tino Santiago MD LAB - CHEMISTRY LUIS ENRIQUE CELIS Performing Organization Address City/[facility]/ZIP Co de Phone Number [facility] [address] * MUMPS ANTIBODY IGG (08/06/2017 11:43 AM PAPERHANGER PIPE) Only the most recent of2 resultswithin the time period is included. Pathologist [facility] Mumps Virus Antibody IgG >300.0 Immune >10.9 AU/mL [facility] Comment: Negative <9.0 Equivocal 9.0 - 10.9 Positive >10.9 A positive result generally indicates past exposure to Mumps virus or previous vaccination. Blood specimen (specimen) BLOOD SPECIMEN / Unknown 08/06/2017 11:43 AM PAPERHANGER PIPE 08/06/2017 12:25 PM PAPERHANGER PIPE Narrative [facility] - 08/07/2017 3:18 PM PAPERHANGER PIPE Performed at: - [facility] [address] [place], [place] [id number] Class A Regional Drivers: Tio Segal PhD, Phone: [phone] Tino Santiago MD LAB - CHEMISTRY LUIS ENRIQUE CELIS [facility] Organization Address City/State/ZIP Co de Phone Number [facility] [address] * (ABNORMAL) ÁNGEL-VOGEL VIRUS ANTIBODY TO VCA IGG (08/06/2017 11:43 AM PAPERHANGER PIPE) Only the most recent of2 resultswithin the time period is included. [facility] Ángel-Vogel Virus Antibody To Viral Capsid Antigen IgG >750.0(H) 0.0 - 21.9 U/mL [facility] ([facility]) Comment: INTERPRETIVE INFORMATION: Ángel-Vogel Virus Antibody to Viral Capsid Antigen, IgG 17.9 U/mL or less.......Not Detected 18.0-21.9 U/mL..........Indeterminate - Repeat testing in 10-14 days may be helpful. 22.0 U/mL or greater....Detected Interpretive information regarding serologic features of EBV-associated diseases is available at [email or web address]. Performed by [employer], [address] [place] [address],[place] [address] [email or web address], Yoandy Martinez MD, Lab. Director Blood specimen (specimen) BLOOD SPECIMEN / Unknown 08/06/2017 11:43 AM PAPERHANGER PIPE 08/06/2017 12:26 PM PAPERHANGER PIPE Tino Santiago MD LAB - CHEMISTRY LUIS ENRIQUE CLEIS [facility] ([facility]) [address] [place] [address], [facility] * HEPATITIS B SURFACE ANTIGEN W RFLX CONFIRMATION (08/06/2017 11:43 AM PAPERHANGER PIPE) Only the most recent of2 resultswithin the time period is included. Hepatitis B Virus Surface Antigen Screen Negative Negative [facility] Blood specimen (specimen) BLOOD SPECIMEN / Unknown 08/06/2017 11:43 AM PAPERHANGER PIPE 08/06/2017 12:24 PM PAPERHANGER PIPE Narrative [facility] - 08/07/2017 5:14 AM PAPERHANGER PIPE Performed at: - [facility] [address] [place], [place] [id number] Class A Regional Drivers: Tio Segal PhD, Phone: [phone] Tino Santiago MD LAB - CHEMISTRY LUIS ENRIQUE CELIS Performing Organization Address [facility] Co de Phone Number [facility] [address] [place] [address] * XR PANOREX (08/06/2017 11:29 AM PAPERHANGER PIPE) Only the most recent of2 resultswithin the time period is included. Anatomical Region Laterality Modality Head Other Impressions 08/07/2017 3:16 PM PAPERHANGER PIPE IMPRESSION: No evidence of periapical abscess. Dictated by Vivek Butler MD (plant operations vice president). I, Dr. WALTER BACA M.D. have personally reviewed and interpreted this examination/study. This report was electronically signed by WALTER BACA M.D. on 08/07/2017 3:16 PM . Narrative 08/07/2017 3:16 PM PAPERHANGER PIPE EXAMINATION: [employer] HISTORY: pre liver eval FINDINGS: [...] periapical abscess. Dictated by Vivek Butler MD (plant operations vice president). I, Dr. WALTER BACA M.D. have personally reviewed and interpreted thisexamination/study. This report was electronically signed by WALTER BACA M.D. on 08/07/20173:16 PM . Tino Santiago MD DIAGNOSTIC IMAGING O RDERABLES * ECHO STRESS TEST W DOBUTAMINE (08/06/2017 12:00 AM PAPERHANGER PIPE) Only the most recent of2 resultswithin the time period is included. Anatomical Region Laterality Modality Other 08/06/2017 Tino Santiago MD ECHOCARDIOGRAPHY RAD IANT * ECHO STRESS COLOR FLOW AND DOPPLER (08/06/2017 12:00 AM PAPERHANGER PIPE) Only the most recent of2 resultswithin the [...] nursing sedation flowsheet. This report was approved by Dang Cronin M.D. on 07/02/2017 3:43 PM . I, Dr. JONY GARCIA M.D. have personally reviewed and interpreted this examination/study. This report was electronically signed by JONY GARCIA M.D. on 07/09/2017 3:31 PM . Narrative 07/09/2017 3:31 [...] celiac artery (1st order) and angiogram. 3. Selective catheterization of the proper hepatic artery (3rd order) and angiogram. 4. 3D Felicia CT with the catheter in the proper hepatic artery. 5. Selective catheterization of the right hepatic artery (beyond 3rd order) and angiogram. 6. Selective catheterization of the segment 7 branch of the right hepatic artery (beyond 3rd order) and angiogram. 7. [place] embolization of the segment 7 branch of the right hepatic artery with 100- 300 micron Embospheres. 8. Post-embolization angiogram of the segment 7 branch of the right hepatic artery. 9. Hemostasis with Angioseal closure device. [...] draped in the usual sterile fashion. A rotating field assembler film of the abdomen was obtained, which [...] documented. Following a series of exchanges, a 5-[place] vascular sheath was placed. The celiac artery (1st order) was catheterized with a 5 [place] Sos Omni-2 catheter and angiogram was obtained. The angiogram demonstrated a normal hepatic branching pattern. An attempt was made to catheterize the common hepatic artery with a 2.0 [place] Progreat microcatheter but was unsuccessful. Therefore, the Sos Omni 2 catheter was exchanged for a 4 [place] Cobra catheter and advanced into the proper [...] was sent to and analyzed at the PatientKeeper work station. The study demonstrated nodular arterial enhancement in hepatic segment 7 at the dome superomedial to the ablation cavity. The right hepatic artery (beyond 3rd order) was then catheterized with a coaxially advanced 2.0 [place] Progreat microcatheter and angiogram was obtained. The [...] hepaticartery (beyond 3rd order) and angiogram. 7. [place] embolization of the segment 7 branch of [...] draped in the usual sterile fashion. A rotating field assembler film of the abdomen was obtained, which [...] (1st order) was catheterized with a 5 [place] Sos Omni- 2catheter and angiogram was obtained. The angiogram demonstrated a normalhepatic branching pattern. An attempt was made to catheterize the commonhepatic artery with a 2.0 [place] Progreat microcatheter but was unsuccessful. Therefore, the Sos Omni 2catheter was exchanged for a 4 [place] Cobra catheter and advanced into theproper hepatic artery. Angiogram was performed with the catheter in theproper hepatic artery which showed antegrade flow in the right and left hepatic arteries. No definite tumorblush was identified. 3D Felicia CT was obtained following the injection of contrast with thecatheter in the proper hepatic artery. The data was sent to and analyzedat the PatientKeeper work station. The study demonstrated nodular arterialenhancement in hepatic segment 7 at the dome superomedial to the ablation cavity. The right hepatic artery (beyond 3rd order) was then catheterized with acoaxially advanced 2.0 [place] Progreat microcatheter and angiogram wasobtained. The angiogram again demonstrated antegrade flow in branchvessels; the segment 7 branches were identified. The segment 7 branch of the right hepatic artery (beyond 3rd order) wasthen catheterized with the microcatheter and angiogram was obtained, whichshowed blood flow to the region of tumor identified on Felicia CT. This was then followed by embolization of the segment 7 branch [id number] micron Embospheres to near stasis. Post-embolization angiogram [...] nursing sedation flowsheet. This report was approved by Dang Cronin M.D. on 07/02/2017 3:[address] JONY Reyes M.D. have personally reviewed and interpreted this examination/study. This report was electronically signed by JONY GARCIA M.D. on 07/09/2017 3:31 PM . Narrative 07/09/2017 3:31 [...] celiac artery (1st order) and angiogram. 3. Selective catheterization of the proper hepatic artery (3rd order) and angiogram. 4. 3D Felicia CT with the catheter in the proper hepatic artery. 5. Selective catheterization of the right hepatic artery (beyond 3rd order) and angiogram. 6. Selective catheterization of the segment 7 branch of the right hepatic artery (beyond 3rd order) and angiogram. 7. [place] embolization of the segment 7 branch of the right hepatic artery with 100- 300 micron Embospheres. 8. Post-embolization angiogram of the segment 7 branch of the right hepatic artery. 9. Hemostasis with Angioseal closure device. [...] draped in the usual sterile fashion. A rotating field assembler film of the abdomen was obtained, which [...] documented. Following a series of exchanges, a 5-[place] vascular sheath was placed. The celiac artery (1st order) was catheterized with a 5 [place] Sos Omni-2 catheter and angiogram was obtained. The angiogram demonstrated a normal hepatic branching pattern. An attempt was made to catheterize the common hepatic artery with a 2.0 [place] Progreat microcatheter but was unsuccessful. Therefore, the Sos Omni 2 catheter was exchanged for a 4 [place] Cobra catheter and advanced into the proper [...] was sent to and analyzed at the PatientKeeper work station. The study demonstrated nodular arterial enhancement in hepatic segment 7 at the dome superomedial to the ablation cavity. The right hepatic artery (beyond 3rd order) was then catheterized with a coaxially advanced 2.0 [place] Progreat microcatheter and angiogram was obtained. The [...] Physician 2. Dr. Cronin, IR Fellow 3. [facility], Medical Student Anesthesia: 1. Local anesthesia - [...] hepaticartery (beyond 3rd order) and angiogram. 7. [place] embolization of the segment 7 branch of [...] draped in the usual sterile fashion. A rotating field assembler film of the abdomen was obtained, which [...] (1st order) was catheterized with a 5 [place] Sos Omni- 2catheter and angiogram was obtained. The angiogram demonstrated a normalhepatic branching pattern. An attempt was made to catheterize the commonhepatic artery with a 2.0 [place] Progreat microcatheter but was unsuccessful. Therefore, the Sos Omni 2catheter was exchanged for a 4 [place] Cobra catheter and advanced into theproper hepatic artery. Angiogram was performed with the catheter in theproper hepatic artery which showed antegrade flow in the right and left hepatic arteries. No definite tumorblush was identified. 3D Felicia CT was obtained following the injection of contrast with thecatheter in the proper hepatic artery. The data was sent to and analyzedat the PatientKeeper work station. The study demonstrated nodular arterialenhancement in hepatic segment 7 at the dome superomedial to the ablation cavity. The right hepatic artery (beyond 3rd order) was then catheterized with acoaxially advanced 2.0 [place] Progreat microcatheter and angiogram wasobtained. The angiogram again demonstrated antegrade flow in branchvessels; the segment 7 branches were identified. The segment 7 branch of the right hepatic artery (beyond 3rd order) wasthen catheterized with the microcatheter and angiogram was obtained, whichshowed blood flow to the region of tumor identified on Felicia CT. This was then followed by embolization of the segment 7 branch [id number] micron Embospheres to near stasis. Post-embolization angiogram [...] nursing sedation flowsheet. This report was approved by Dang Cronin M.D. on 07/02/2017 3:43 PM . I, Dr. JONY GARCIA M.D. have personally reviewed and interpreted this examination/study. This report was electronically signed by JONY GARCIA M.D. on 07/09/2017 3:31 PM . Narrative 07/09/2017 3:31 [...] celiac artery (1st order) and angiogram. 3. Selective catheterization of the proper hepatic artery (3rd order) and angiogram. 4. 3D Felicia CT with the catheter in the proper hepatic artery. 5. Selective catheterization of the right hepatic artery (beyond 3rd order) and angiogram. 6. Selective catheterization of the segment 7 branch of the right hepatic artery (beyond 3rd order) and angiogram. 7. [place] embolization of the segment 7 branch of the right hepatic artery with 100- 300 micron Embospheres. 8. Post-embolization angiogram of the segment 7 branch of the right hepatic artery. 9. Hemostasis with Angioseal closure device. [...] draped in the usual sterile fashion. A rotating field assembler film of the abdomen was obtained, which [...] documented. Following a series of exchanges, a 5-[place] vascular sheath was placed. The celiac artery (1st order) was catheterized with a 5 [place] Sos Omni-2 catheter and angiogram was obtained. The angiogram demonstrated a normal hepatic branching pattern. An attempt was made to catheterize the common hepatic artery with a 2.0 [place] Progreat microcatheter but was unsuccessful. Therefore, the Sos Omni 2 catheter was exchanged for a 4 [place] Cobra catheter and advanced into the proper [...] was sent to and analyzed at the PatientKeeper work station. The study demonstrated nodular arterial enhancement in hepatic segment 7 at the dome superomedial to the ablation cavity. The right hepatic artery (beyond 3rd order) was then catheterized with a coaxially advanced 2.0 [place] Progreat microcatheter and angiogram was obtained. The [...] Physician 2. Dr. Cronin, IR Fellow 3. [facility], Medical Student Anesthesia: 1. Local anesthesia - [...] hepaticartery (beyond 3rd order) and angiogram. 7. [place] embolization of the segment 7 branch of [...] draped in the usual sterile fashion. A rotating field assembler film of the abdomen was obtained, which [...] (1st order) was catheterized with a 5 [place] Sos Omni- 2catheter and angiogram was obtained. The angiogram demonstrated a normalhepatic branching pattern. An attempt was made to catheterize the commonhepatic artery with a 2.0 [place] Progreat microcatheter but was unsuccessful. Therefore, the Sos Omni 2catheter was exchanged for a 4 [place] Cobra catheter and advanced into theproper hepatic artery. Angiogram was performed with the catheter in theproper hepatic artery which showed antegrade flow in the right and left hepatic arteries. No definite tumorblush was identified. 3D Felicia CT was obtained following the injection of contrast with thecatheter in the proper hepatic artery. The data was sent to and analyzedat the PatientKeeper work station. The study demonstrated nodular arterialenhancement in hepatic segment 7 at the dome superomedial to the ablation cavity. The right hepatic artery (beyond 3rd order) was then catheterized with acoaxially advanced 2.0 [place] Progreat microcatheter and angiogram wasobtained. The angiogram again demonstrated antegrade flow in branchvessels; the segment 7 branches were identified. The segment 7 branch of the right hepatic artery (beyond 3rd order) wasthen catheterized with the microcatheter and angiogram was obtained, whichshowed blood flow to the region of tumor identified on Felicia CT. This was then followed by embolization of the segment 7 branch [id number] micron Embospheres to near stasis. Post-embolization angiogram ofthe segment 7 branch showed satisfactory stasis. A sheath angiogram of the right common femoral artery was unremarkablewith femoral access away from the profunda. Hemostasis was achieved withan Angioseal closure device. A sterile dressing was applied. The patient tolerated the procedure well and [facility]. There were [...] nursing sedation flowsheet. This report was approved by Dang Cronin M.D. on 07/02/2017 3:43 PM . I, Dr. JONY GARCIA, M.D. have personally reviewed and interpreted this examination/study. This report was electronically signed by JONY GARCIA M.D. on 07/09/2017 3:31 PM . Narrative 07/09/2017 3:31 [...] celiac artery (1st order) and angiogram. 3. Selective catheterization of the proper hepatic artery (3rd order) and angiogram. 4. 3D Felicia CT with the catheter in the proper hepatic artery. 5. Selective catheterization of the right hepatic artery (beyond 3rd order) and angiogram. 6. Selective catheterization of the segment 7 branch of the right hepatic artery (beyond 3rd order) and angiogram. 7. [place] embolization of the segment 7 branch of the right hepatic artery with 100- 300 micron Embospheres. 8. Post-embolization angiogram of the segment 7 branch of the right hepatic artery. 9. Hemostasis with Angioseal closure device. [...] draped in the usual sterile fashion. A rotating field assembler film of the abdomen was obtained, which [...] documented. Following a series of exchanges, a 5-[place] vascular sheath was placed. The celiac artery (1st order) was catheterized with a 5 [place] Sos Omni-2 catheter and angiogram was obtained. The angiogram demonstrated a normal hepatic branching pattern. An attempt was made to catheterize the common hepatic artery with a 2.0 [place] Progreat microcatheter but was unsuccessful. Therefore, the Sos Omni 2 catheter was exchanged for a 4 [place] Cobra catheter and advanced into the proper [...] was sent to and analyzed at the PatientKeeper work station. The study demonstrated nodular arterial enhancement in hepatic segment 7 at the dome superomedial to the ablation cavity. The right hepatic artery (beyond 3rd order) was then catheterized with a coaxially advanced 2.0 [place] Progreat microcatheter and angiogram was obtained. The [...] hepaticartery (beyond 3rd order) and angiogram. 7. [place] embolization of the segment 7 branch of [...] draped in the usual sterile fashion. A rotating field assembler film of the abdomen was obtained, which [...] (1st order) was catheterized with a 5 [place] Sos Omni- 2catheter and angiogram was obtained. The angiogram demonstrated a normalhepatic branching pattern. An attempt was made to catheterize the commonhepatic artery with a 2.0 [place] Progreat microcatheter but was unsuccessful. Therefore, the Sos Omni 2catheter was exchanged for a 4 [place] Cobra catheter and advanced into theproper hepatic artery. Angiogram was performed with the catheter in theproper hepatic artery which showed antegrade flow in the right and left hepatic arteries. No definite tumorblush was identified. 3D Felicia CT was obtained following the injection of contrast with thecatheter in the proper hepatic artery. The data was sent to and analyzedat the PatientKeeper work station. The study demonstrated nodular arterialenhancement in hepatic segment 7 at the dome superomedial to the ablation cavity. The right hepatic artery (beyond 3rd order) was then catheterized with acoaxially advanced 2.0 [place] Progreat microcatheter and angiogram wasobtained. The angiogram again demonstrated antegrade flow in branchvessels; the segment 7 branches were identified. The segment 7 branch of the right hepatic artery (beyond 3rd order) wasthen catheterized with the microcatheter and angiogram was obtained, whichshowed blood flow to the region of tumor identified on Felicia CT. This was then followed by embolization of the segment 7 branch [id number] micron Embospheres to near stasis. Post-embolization angiogram ofthe segment 7 branch showed satisfactory stasis. A sheath angiogram of the right common femoral artery was unremarkablewith femoral access away from the profunda. Hemostasis was achieved withan Angioseal closure device. A sterile dressing was applied. The patient tolerated the procedure well and [facility]. There were [...] nursing sedation flowsheet. This report was approved by Dang Cronin M.D. on 07/02/2017 3:43 PM . Amy, Dr. JONY GARCIA M.D. have personally reviewed and interpreted this examination/study. This report was electronically signed by JONY GARCIA M.D. on 07/09/2017 3:31 PM . Narrative 07/09/2017 3:31 [...] celiac artery (1st order) and angiogram. 3. Selective catheterization of the proper hepatic artery (3rd order) and angiogram. 4. 3D Felicia CT with the catheter in the proper hepatic artery. 5. Selective catheterization of the right hepatic artery (beyond 3rd order) and angiogram. 6. Selective catheterization of the segment 7 branch of the right hepatic artery (beyond 3rd order) and angiogram. 7. [place] embolization of the segment 7 branch of the right hepatic artery with 100- 300 micron Embospheres. 8. Post-embolization angiogram of the segment 7 branch of the right hepatic artery. 9. Hemostasis with Angioseal closure device. [...] draped in the usual sterile fashion. A rotating field assembler film of the abdomen was obtained, which [...] documented. Following a series of exchanges, a 5-Equatorial [place] vascular sheath was placed. The celiac artery (1st order) was catheterized with a 5 [place] Sos Omni-2 catheter and angiogram was obtained. The angiogram demonstrated a normal hepatic branching pattern. An attempt was made to catheterize the common hepatic artery with a 2.0 [place] Progreat microcatheter but was unsuccessful. Therefore, the Sos Omni 2 catheter was exchanged for a 4 [place] Cobra catheter and advanced into the proper [...] was sent to and analyzed at the [facility]eeper work station. The study demonstrated nodular arterial enhancement in hepatic segment 7 at the dome superomedial to the ablation cavity. The right hepatic artery (beyond 3rd order) was then catheterized with a coaxially advanced 2.0 [place] Progreat microcatheter and angiogram was obtained. The [...] hepaticartery (beyond 3rd order) and angiogram. 7. [place] embolization of the segment 7 branch of [...] draped in the usual sterile fashion. A rotating field assembler film of the abdomen was obtained, which [...] (1st order) was catheterized with a 5 [place] Sos Omni- 2catheter and angiogram was obtained. The angiogram demonstrated a normalhepatic branching pattern. An attempt was made to catheterize the commonhepatic artery with a 2.0 [place] Progreat microcatheter but was unsuccessful. Therefore, the Sos Omni 2catheter was exchanged for a 4 [place] Cobra catheter and advanced into theproper hepatic artery. Angiogram was performed with the catheter in theproper hepatic artery which showed antegrade flow in the right and left hepatic arteries. No definite tumorblush was identified. 3D Felicia CT was obtained following the injection of contrast with thecatheter in the proper hepatic artery. The data was sent to and analyzedat the PatientKeeper work station. The study demonstrated nodular arterialenhancement in hepatic segment 7 at the dome superomedial to the ablation cavity. The right hepatic artery (beyond 3rd order) was then catheterized with acoaxially advanced 2.0 [place] Progreat microcatheter and angiogram wasobtained. The angiogram again demonstrated antegrade flow in branchvessels; the segment 7 branches were identified. The segment 7 branch of the right hepatic artery (beyond 3rd order) wasthen catheterized with the microcatheter and angiogram was obtained, whichshowed blood flow to the region of tumor identified on Felicia CT. This was then followed by embolization of the segment 7 branch [id number] micron Embospheres to near stasis. Post-embolization angiogram ofthe segment 7 branch showed satisfactory stasis. A sheath angiogram of the right common femoral artery was unremarkablewith femoral access away from the profunda. Hemostasis was achieved withan Angioseal closure device. A sterile dressing was applied. The patient tolerated the procedure well and [facility]. There were [...] nursing sedation flowsheet. This report was approved by Dang Cronin M.D. on 07/02/2017 3:43 PM . I, Dr. JONY GARCIA M.D. have personally reviewed and interpreted this examination/study. This report was electronically signed by JONY GARCIA M.D. on 07/09/2017 3:31 PM . Narrative 07/09/2017 3:31 [...] celiac artery (1st order) and angiogram. 3. Selective catheterization of the proper hepatic artery (3rd order) and angiogram. 4. 3D [place] CT with the catheter in the proper hepatic artery. 5. Selective catheterization of the right hepatic artery (beyond 3rd order) and angiogram. 6. Selective catheterization of the segment 7 branch of the right hepatic artery (beyond 3rd order) and angiogram. 7. [place] embolization of the segment 7 branch of the right hepatic artery with 100- 300 micron Embospheres. 8. Post-embolization angiogram of the segment 7 branch of the right hepatic artery. 9. Hemostasis with Angioseal closure device. [...] draped in the usual sterile fashion. A rotating field assembler film of the abdomen was obtained, which [...] documented. Following a series of exchanges, a 5-[place]atorial [place] vascular sheath was placed. The celiac artery (1st order) was catheterized with a 5 [place] Sos Omni-2 catheter and angiogram was obtained. The angiogram demonstrated a normal hepatic branching pattern. An attempt was made to catheterize the common hepatic artery with a 2.0 [place] Progreat microcatheter but was unsuccessful. Therefore, the Sos Omni 2 catheter was exchanged for a 4 [place] Cobra catheter and advanced into the proper [...] was sent to and analyzed at the Patient[facility]eeper work station. The study demonstrated nodular arterial enhancement in hepatic segment 7 at the dome superomedial to the ablation cavity. The right hepatic artery (beyond 3rd order) was then catheterized with a coaxially advanced 2.0 [place] Progreat microcatheter and angiogram was obtained. The [...] hepaticartery (beyond 3rd order) and angiogram. 7. [place] embolization of the segment 7 branch of [...] draped in the usual sterile fashion. A rotating field assembler film of the abdomen was obtained, which [...] (1st order) was catheterized with a 5 [place] Sos Omni- 2catheter and angiogram was obtained. The angiogram demonstrated a normalhepatic branching pattern. An attempt was made to catheterize the commonhepatic artery with a 2.0 [place] Progreat microcatheter but was unsuccessful. Therefore, the Sos Omni 2catheter was exchanged for a 4 [place] Cobra catheter and advanced into theproper hepatic artery. Angiogram was performed with the catheter in theproper hepatic artery which showed antegrade flow in the right and left hepatic arteries. No definite tumorblush was identified. 3D Felicia CT was obtained following the injection of contrast with thecatheter in the proper hepatic artery. The data was sent to and analyzedat the PatientKeeper work station. The study demonstrated nodular arterialenhancement in hepatic segment 7 at the dome superomedial to the ablation cavity. The right hepatic artery (beyond 3rd order) was then catheterized with acoaxially advanced 2.0 [place] Progreat microcatheter and angiogram wasobtained. The angiogram again demonstrated antegrade flow in branchvessels; the segment 7 branches were identified. The segment 7 branch of the right hepatic artery (beyond 3rd order) wasthen catheterized with the microcatheter and angiogram was obtained, whichshowed blood flow to the region of tumor identified on Felicia CT. This was then followed by embolization of the segment 7 branch [id number] micron Embospheres to near stasis. Post-embolization angiogram [...] approved by Hua An M.D. on 06/20/2017 10:[address] Horace Reyes M.D. have personally reviewed and interpreted this examination/study. This report was electronically signed by Horace MICHAEL M.D. on 06/20/2017 1:24 PM . Narrative 06/20/2017 1:24 [...] approved by Hua An M.D. on 06/20/2017 10:[address] Horace Reyes M.D. have personally reviewed and interpreted this examination/study. This report was electronically signed by Horace MICHAEL M.D. on 06/20/2017 1:24 PM . Narrative 06/20/2017 1:24 [...] ORDERABLES * CREATININE BLOOD - POCT (IP) [facility] (05/30/2017) Only the most recent of2 resultswithin the time period is included. Creatinine POCT 0.85 0.3 - 1.3 mg/dL [facility] eGFR POCT 60 60 ml/min [facility] 05/30/2017 Jony Garcia MD LAB - POINT OF CARE ORDERABLES [facility] * CT PARENCHYMAL TISSUE ABLATION (03/06/2017 1:27 PM CDT) Anatomical Region Laterality Modality Other Impressions 03/10/2017 11:20 PM CDT Impression: CT guided thermal ablation of segment 7/8 HCC lesion, as described above. Followup: Contrast enhanced triple phase CT scan will be performed after end of 4-6 weeks and will be seen in the clinic after the follow up CT imaging. I Dr Garcia performed/was present throughout the procedure. This report was approved by Silvino Xiong M.D. on 03/06/2017 1:33 PM . I, Dr. JONY GARCIA M.D. have personally reviewed and interpreted this examination/study. This report was electronically signed by JONY GARCIA M.D. on 03/10/2017 11:20 PM . Narrative 03/10/2017 11:20 [...] recommended Image guided thermal ablation. Operators: 1. Dr. [...] by the injection with 1% Lidocaine. A [place] 15 probe (3 -4 cm ablation zone) [...] provided by the injection with 1%Lidocaine. A [place] 15 probe (3 -4 cm ablation zone) [...] be performed after end of 4-6 weeks and will be seen in the clinic after the follow up CT imaging. I Dr Garcia performed/was present throughout the procedure. This report was approved by Silvino Xiong M.D. on 03/06/2017 1:33 PM . I, Dr. JONY GARCIA M.D. have personally reviewed and interpreted this examination/study. This report was electronically signed by JONY GARCIA M.D. on 03/10/2017 11:20 PM . Narrative 03/10/2017 11:20 [...] recommended Image guided thermal ablation. Operators: 1. Dr. [...] by the injection with 1% Lidocaine. A [place] 15 probe (3 -4 cm ablation zone) [...] provided by the injection with 1%Lidocaine. A [place] 15 probe (3 -4 cm ablation zone) [...] time period is included. Unit Platelet Pheresis [id number] transfused [facility] (BEAKER) Unit ABO B [facility] (BEAKER) Unit Rh POS [facility] (BEAKER) Unit Number [id number] [facility] (BEAKER) Unit Status Transfused [facility] (BEAKER) Irradiated Platelet [id number] transfused [facility] (BEAKER) Unit ABO O [facility] (BEAKER) Unit Rh POS [facility] (BEAKER) Unit Number [id number] [facility] (BEAKER) Unit Status Transfused [facility]LO [facility] (BEAKER) 03/06/2017 9:13 AM CDT 03/06/2017 9:21 AM CDT Narrative [facility]LOOD [facility]ODU[facility] (BEAKER) - 03/06/2017 9:13 AM CDT # of Units->2 [place] Lilly Asst LAB - BLO OD BANK ORDERABLES Performing Organization Address City/[facility]/ZIP Co de Phone Number [facility] BLOOD [facility]ANK PRODUCTS (BEAKER) * CULTURE AEROBIC (10/06/2016 12:07 AM PAPERHANGER PIPE) Culture Aerobic No Growth at [address] [facility] Gram Stain Many Red Blood Cells [facility] Gram Stain No Organism Seen [facility] Fluid specimen (specimen) 10/06/2016 12:07 AM [facility]ERHANGER PIPE 10/06/2016 12:57 AM PAPERHANGER PIPE [facility] - 10/13/2016 2:58 PM PAPERHANGER PIPE Peritoneal fluid Specimen Type->Body Fluid Gram Stains are routinely screened for the presence of Polymorphonuclear Cells. Jerrell Brown MD LAB - MICROBIOLOGY O RDERABLES Performing Organization Address [facility]/ZIP Co de Phone Number [address] [phone] * CULTURE ANAEROBE (10/06/2016 12:07 AM PAPERHANGER PIPE) Culture Anaerobic No Growth at [address] [facility] Fluid specimen (specimen) 10/06/2016 12:07 AM [facility]ER PIPE 10/06/2016 12:57 AM PAPERHANGER PIPE [facility] - 10/15/2016 11:21 AM PAPERHANGER PIPE Peritoneal fluid Specimen Type->Body Fluid Jerrell Brown MD LAB - MICROBIOLOGY O RDERABLES Performing Organization Address [facility]/ZIP Co de Phone Number [address] [phone] * CT ABDOMEN PELVIS W CONTRAST (10/05/2016 6:34 PM PAPERHANGER PIPE) Anatomical Region Laterality Modality Abdomen, Pelvis Other Impressions 10/06/2016 12:07 PM [facility]ERHANGER PIPE IMPRESSION: 1. Indirect right inguinal hernia containing [...] 1752 hours. Dictated by Vivek Butler MD (plant operations vice president). I, Dr. LESLY FERMIN M.D. have personally reviewed and interpreted this examination/study. This report was electronically signed by LESLY FERMIN M.D. on 10/06/2016 12:07 PM . Narrative 10/06/2016 12:07 PM PAPERHANGER PIPE EXAMINATION: Computed tomography (CT) of the abdomen [...] [facility]. The gallbladder [...] 1752 hours. Dictated by Vivek Butler MD (plant operations vice president). I, Dr. LESLY FERMIN M.D. have personally reviewed and interpreted thisexamination/study. This report was electronically signed by LESLY FERMIN M.D. on10/06/2016 12:07 PM . Piper Renner MD CT ORDERABLES * PURPLE TOP TUBE EXTRA (10/05/2016 5:17 PM PAPERHANGER PIPE) Extra Tube hold [facility] Blood specimen (specimen) BLOOD SPECIMEN / Unknown 10/05/2016 5:17 PM PAPERHANGER PIPE 10/05/2016 5:22 PM PAPERHANGER PIPE Piper Renner MD LAB - CHEMISTRY [facility] [address] [phone] * LIPASE BLOOD (09/12/2016 1:16 AM PAPERHANGER PIPE) Only the most recent of2 resultswithin the time period is included. Lipase 13 8 - 78 Units/L [facility] Blood specimen (specimen) BLOOD SPECIMEN / Unknown 09/12/2016 1:16 AM PAPERHANGER PIPE 09/12/2016 1:22 AM PAPERHANGER PIPE Demetrice Prado MD LAB - CHEMISTRY [facility] Performing Organization Address City/[facility]/[place] [address], [facility] [phone] * XR LUMBAR SPINE 2 OR 3VW (08/28/2016 1:16 PM PAPERHANGER PIPE) Only the most recent of2 resultswithin the time period is included. Anatomical Region Laterality Modality Spine Other Impressions 08/28/2016 3:32 PM PAPERHANGER PIPE IMPRESSION: 1. Redemonstration of an L1 compression fracture with interval progression of anterior height loss, now greater than 50 percent. 2. Multilevel degenerative changes. This report was electronically signed by DASHAWN SUE MD on 08/28/2016 3:32 PM . Narrative 08/28/2016 3:32 PM PAPERHANGER PIPE Exam: XR SPINE LUMBAR 2 OR 3 [...] DOPPLER AND COLOR FLOW (08/22/2016 12:00 AM PAPERHANGER PIPE) Anatomical Region Laterality Modality Other 08/22/2016 Mele Nevarez MD ECHOCARDIOGRAPHY RAD IANT * CT ANGIO BRAIN AND NECK (08/02/2016 12:18 PM PAPERHANGER PIPE) Anatomical Region Laterality Modality Head Other Impressions 08/03/2016 10:18 AM PAPERHANGER PIPE IMPRESSION: 1. No acute intracranial hemorrhage. 2. No large arterial occlusions or significant stenoses identified in the head or neck. I, Dr. STEVE ACOSTA M.D. have personally reviewed and interpreted this examination/study. This report was electronically signed by STEVE ACOSTA M.D. on 08/03/2016 10:18 AM . Narrative 08/03/2016 10:18 AM PAPERHANGER PIPE EXAMINATION: 1. Computed tomography (CT) of the [...] * XR CHEST 2VW (08/02/2016 11:49 AM PAPERHANGER PIPE) Anatomical Region Laterality Modality Chest Other Impressions 08/02/2016 4:55 PM PAPERHANGER PIPE Impression: Bibasilar atelectasis, right greater than left, with small left pleural effusion. This report has been dictated by Ramiro Ribera M.D. (Resident). Dr. LESLY Reyes M.D. have personally reviewed and interpreted this examination/study. This report was electronically signed by LESLY FERMIN M.D. on 08/02/2016 4:55 PM . Narrative 08/02/2016 4:55 PM PAPERHANGER PIPE Exam: XR CHEST PA AND LATERAL. Date: [...] RDERABLES * TROPONIN I (08/02/2016 10:25 AM PAPERHANGER PIPE) Pathologist [facility] Troponin I <0.010 <0.032 ng/mL [facility] Blood specimen (specimen) BLOOD SPECIMEN / Unknown 08/02/2016 10:25 AM PAPERHANGER PIPE 08/02/2016 10:33 AM PAPERHANGER PIPE Paula Cuevas MD LAB - CHEMISTRY [facility] [address] [phone] * CK + CKMB PANEL (08/02/2016 10:25 AM PAPERHANGER PIPE) Pathologist [facility] CK Total 72 30 - 200 Units/L [facility] CK-MB 2.0 0.0 - 6.6 ng/mL [facility] Blood specimen (specimen) BLOOD SPECIMEN / Unknown 08/02/2016 10:25 AM PAPERHANGER PIPE 08/02/2016 10:33 AM PAPERHANGER PIPE Paula Cuevas MD LAB - CHEMISTRY [facility] [address] [phone] * AMMONIA (08/02/2016 10:25 AM PAPERHANGER PIPE) Only the most recent of4 resultswithin the time period is included. Ammonia 43 11 - 64 umol/L [facility] Blood specimen (specimen) BLOOD SPECIMEN / Unknown 08/02/2016 10:25 AM PAPERHANGER PIPE 08/02/2016 10:33 AM PAPERHANGER PIPE Paula Cuevas MD LAB - CHEMISTRY [facility] [address] [phone] * CCL CATH LEFT HEART ARTERY GRAFT (07/30/2016 8:26 AM PAPERHANGER PIPE) Anatomical Region Laterality Modality X-Ray Angiograph y Narrative 07/30/2016 9:22 AM PAPERHANGER PIPE [facility] Cardiac Catheterization Procedure Note Patient: Robert Harrell Age: 60 y.o. Date of : 1955 Date of Admission: 07/30/16 Procedure Date: 07/30/16 FELLOW / JAVA APPLICATION DEVELOPER: Jaleel Trinidad MD; Jj Thomas MD ATTENDING [...] a timeout was performed to confirm the patient s name, date of , and procedure. Sedation was initiated and the patient was prepped and draped using standard sterile technique. Lidocaine was used for local anesthesia over the access site, after which the vessel was accessed and a sheath was placed using the modified Seldinger technique. Access was uncomplicated. Intra-arterial verapamil and intravenous heparin were administered to minimize risk of radial artery spasm or occlusion. Coronary angiography was performed using 6Fr Canterbury catheter. Left heart catheterization was performed using 6Fr Canterbury catheter. At the conclusion of the procedure, hemostasis was achieved using a radial compression device after removal of all catheters, wires, and sheaths. COMPLICATIONS: None HEMODYNAMIC [...] Procedure Note James Terrell MD - 02/14/2018 [facility] Cardiac Catheterization Procedure Note Patient: Robert Harrell Age: 60 y.o. Date of : 1955 Date of Admission: 07/30/16 Procedure Date: 07/30/16 FELLOW / JAVA APPLICATION DEVELOPER: Jaleel Trinidad MD; Jj Thomas MD ATTENDING [...] a timeout was performed to confirm the patient s name, date of , and procedure. Sedation was [...] orocclusion. Coronary angiography was performed using 6Fr Canterbury catheter.Left heart catheterization was performed using 6Fr Canterbury catheter. At theconclusion of the procedure, hemostasis [...] MD 07/30/2016/9:29 AM Jerrell Brown MD CARDIAC COOKING SHOW HOST RAD IANT * CT LIVER 3 PHASE W PELVIS (07/17/2016 10:49 AM PAPERHANGER PIPE) Anatomical Region Laterality Modality Abdomen Other Impressions 07/17/2016 5:17 PM PAPERHANGER PIPE IMPRESSION: 1. Arterially enhancing observation with washout [...] inguinal hernia. Dictated by Wilber Hall MD (plant operations vice president) This report was approved by Mele Hall on 07/17/2016 5:09 PM . I, Dr. LESLY FERMIN M.D. have personally reviewed and interpreted this examination/study. This report was electronically signed by LESLY FERMIN M.D. on 07/17/2016 5:17 PM . Narrative 07/17/2016 5:17 PM PAPERHANGER PIPE EXAMINATION: Computed tomography (CT) of the abdomen [...] containing right inguinal hernia. Dictated by Wilber Rafael, MD (plant operations vice president) This report was approved by Mele Hall on 07/17/2016 5:09 PM . I, Dr. LESLY FERMIN M.D. have personally reviewed and interpreted thisexamination/study. This report was electronically signed by LESLY FERMIN M.D. on07/17/2016 5:17 PM . Ramon Morales MD CT ORDERABLES * ALPHA FETOPROTEIN + AFP-L3 (07/09/2016 9:35 AM CDT) Alpha-Fetoprotein 2.1 1.6 - 4.5 ng/mL [facility]) Ybwnq-[id number]-M 3 SEE NOTE 0.5 - 9.9 % [facility]) Comment: NO VALUE DETERMINED The micro-total analysis system ([facility]) employs microchip capillary electrophoresis to quantitatively measure AFP and AFP-L3% by immunochemical techniques. The assay principle involves DNA-coupled antibodies and dye labeled antibodies, which react with proteins in liquid phase within the microchannels. Both analytes are quantified using laser-induced fluorescence. Instrument and associated reagents are supplied by [employer] [place], [place], [place]. Patients with elevated AFP-L3% values (>=10%) [...] can potentially cause an anomalous result. The [employer] System has been formulated to minimize the [...] HEPARIN, ARGATROBAN OR DABIGATRAN?->N Test Performed at: [facility] [address] [place] [address] REBECCA CHRISTIANSEN MD PHD Blood specimen (specimen) BLOOD SPECIMEN / Unknown 07/09/2016 9:35 AM CDT 07/09/2016 9:36 AM CDT Ramon Morales MD LAB - CHEMISTRY [facility] Organization Address City/State/ZIP Co de Phone Number [facility] ([facility]) * (ABNORMAL) BLOOD GASES ART - PFT (06/19/2016 11:15 AM CDT) pH Arterial 7.43 7.35 - 7.45 [facility] pCO2 Arterial 36 35 - [address] [facility] pO2 Arterial 77 71 - [address] [facility] HCO3 Arterial 23.7 22.0 - 26.0 mmol/L [facility] TCO2 Arterial 24.8(L) 25.0 - 29.0 mmol/L [facility] Base Excess Arterial 0.2 -2.0 - 2.0 mmol/L [facility] Hemoglobin Arterial 12.8(L) 13.5 - 17.5 g/dL [facility] Oxyhemoglobin Arterial 95.8 95.0 - 100.0 % [facility] Carboxyhemoglobin 2.2 0.0 - 3.0 % [facility] Methemoglobin 0.0 0.0 - 2.0 % [facility] FI O2 Arterial 20.9 % [facility] Blood specimen (specimen) ARTERY SPECIMEN / Unknown 06/19/2016 11:15 AM CDT 06/19/2016 11:[address] [facility] - 06/19/2016 11:47 AM CDT Room air (21%)->Yes FiO2->20.9 Liters/minute->0 Tino Santiago MD LAB - BLOOD GASES OR DERABLES Performing Organization Address [facility] Co de Phone Number [address] [phone] * MITOCHONDRIAL ANTIBODY SCREEN (06/19/2016 7:19 AM CDT) Only the most recent of2 resultswithin the time period is included. Mitochondrial M2 Antibody 12.1 0.0 - 20.[address] [facility] Comment: Mitochondrial M2 Antibody Numeric Result Interpretation: <20.1 Units: Negative 20.1 - 24.9 Units: Equivocal >24.9 Units: Positive Blood specimen (specimen) BLOOD SPECIMEN / Unknown 06/19/2016 7:19 AM CDT 06/19/2016 8:14 AM CDT Jerrell Brown MD LAB - CHEMISTRY [facility] Performing Organization Address [facility] Co de Phone Number [address] [phone] * (ABNORMAL) HEPATITIS A ANTIBODY (06/19/2016 7:19 AM CDT) Hepatitis A Virus Antibody Total Positive(A ) Negative [facility] (BEAKER) Blood specimen (specimen) 06/19/2016 7:19 AM CDT 06/19/2016 8:40 AM CDT Narrative [facility] (BEAKER) - 06/20/2016 6:16 AM CDT Performed at: [address] [place] [address] [id number] Class A Regional Drivers: Tio Segal PhD, Phone: [phone] Jerrell Brown MD LAB - CHEMISTRY [facility] (EVIN) * [id number] BLOOD PHENOTYPING PANEL (03/26/2016 8:53 AM CDT) Pzinc-1-Vnmmjnvfr in Phenotype SEE NOTE [facility] ([facility]) Comment: THIS PATIENT'S [id number] 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 90% of normal individuals have the MM phenotype, with normal quantitative AAT levels. Many phenotypic patterns have been described, including deficiency states with F, S, Z, or other alleles. As a general estimation, compared to M allele of 100% of normal U-2-Gguigswmcrp protein, the S allele produces approximately 60% and the Z allele 20%. For example, an MS phenotype would have about 80% of normal Y-6-Bpyqjcvnvhh protein level, a 50% contribution from the M allele and 30% from the S allele. A ZZ phenotype would have about 20% of normal levels, a 10% contribution from each Z gene. The F allele has normal J-4-Vvrnybqceup levels, but the kinetics of elastase inhibition [...] phenotype. REPORT COMMENT: FASTING:YES Test Performed at: [facility] [employer] [address] [place] [address] REBECCA CHRISTIANSEN MD PHD 03/26/2016 8:53 AM CDT 03/26/2016 8:53 AM CDT Ramon Morales MD LAB - CHEMISTRY LUIS ENRIQUE CELIS Performing Organization Address City/[facility]/ZIP Co de Phone Number OLVIN ([facility]) * (ABNORMAL) COPPER URINE (09/15/2015 1:16 PM PAPERHANGER PIPE) Copper Urine 13 Not Estab. ug/L [facility] ([facility]) Comment:Detection Limit = 1 Creatinine Urine 0.73 0.30 - 3.00 g/L [facility] ([facility]) Comment:Detection Limit = 0. 10 Copper/Creatini ne Ratio 18 0 - 49 ug/g creat [facility] ([facility]) Copper 24 Hour Urine 0(L) 3 - 35 ug/24 hr [facility] ([facility]) Urine specimen (specimen) (Urine, unspecified source) 09/15/2015 1:16 PM [employer]ERHANGER PIPE 09/15/2015 2:04 PM P[employer]ERHANGER PIPE Narrative [facility] ([facility]) - 09/20/2015 6:14 AM PAPERHANGER PIPE 24 Hour Urine for Copper. Performed at: [address] [place] [address] [id number] Class A Regional Drivers: Peter Treadwell MD, Phone: [phone] Naomi You MD LAB - URINE CHEMISTR Y ORDERABLES Performing Organization Address [facility] Co de Phone Number [facility] ([facility]) * (ABNORMAL) COPPER BLOOD (09/15/2015 12:02 AM PAPERHANGER PIPE) Copper 53(L) 72 - 166 ug/dL [facility] ([facility]) Comment:Detection Limit = 5 Blood specimen (specimen) BLOOD SPECIMEN / Unknown 09/15/2015 12:02 AM P[employer]ERHANGER PIPE 09/15/2015 12:06 AM P[employer]ERHANGER PIPE Narrative [facility] ([facility]) - 09/17/2015 6:14 AM PAPERHANGER PIPE Performed at: [address] [place] [address] [id number] Class A Regional Drivers: Peter Treadwell MD, Phone: [phone] Naomi You MD LAB - CHEMISTRY LUIS ENRIQUE CELIS Performing Organization Address City/[facility]/ZIP Co de Phone Number [facility]) * CORTISOL BLOOD AM (09/14/2015 4:58 AM PAPERHANGER PIPE) Pathologist [facility] Cortisol AM 6.5 3.7 - 19.4 mcg/dL [facility] Blood specimen (specimen) BLOOD SPECIMEN / Unknown 09/14/2015 4:58 AM PAPERHANGER PIPE 09/14/2015 5:04 AM PAPERHANGER PIPE Naomi You MD LAB - CHEMISTRY LUIS ENRIQUE CELIS [address] [phone] * HEPATITIS B VIRUS DNA QUANT PCR (09/14/2015 12:14 AM PAPERHANGER PIPE) [facility] Hepatitis B Virus IU/mL Comment IU/mL [facility]) Comment:HBV DNA not detected Hepatitis B Virus DNA (Log IU/mL) TNP odk39XV/mL [facility]) Comment: Unable to calculate result since non-numeric result obtained for component test. Test Information Comment [facility]) Comment:The reportable range for this assay is 20 to 170,000,000 IU/mL 09/14/2015 12:1 4 AM PAPERHANGER PIPE 09/14/2015 12:23 AM PAPERHANGER PIPE Narrative [facility]) - 09/17/2015 5:08 PM PAPERHANGER PIPE Performed at: [address] [place] [address] [id number] Class A Regional Drivers: Peter Treadwell MD, Phone: [phone] Naomi You MD LAB - SEROLOGY KAREL MAYRA Performing Organization Address City/[facility]/ZIP Co de Phone Number [facility]) * HEMOCHROMATOSIS MUTATION PANEL (09/14/2015 12:14 AM PAPERHANGER PIPE) [facility] Hemochromatosis Genotype Specimen: 3 ml Peripheral Blood Reference: [id number] Test: Hemochromatosis Genotyping RESULT Hemochromatosis Genotyping C282Y Wild-Type Allele: Detected Mutant Allele: Not Detected Patient Result: wt/wt Reference Range: wt/wt H63D Wild-Type Allele: Detected Mutant Allele: Not Detected Patient Result: wt/wt Reference Range: wt/wt Composite Genotype: Normal (neither mutation detected) Neither the C282Y nor the H63D mutation was detected in this patient. This patient, therefore lacks these mutations of HFE associated with Hereditary Hemochromatosis. INTERPRETATION DNA was isolated from the specimen and analyzed by a PCR-amplification refractory mutation system (Prema Alexander et al: J Clin Pathol 51:73-74) to detect the G to A and C to G changes at nucleotide position 845 (845G>A) and 187 (187C>G) of the HFE gene, respectively. These alterations result in a Cysteine to Tyrosine change at position 282 (C282Y) and a Histidine to Aspartic Acid at amino acid 63 (H63D). The C282Y mutation was not detected. The H63D mutation was not detected. This test was developed and its performance characteristics determined by the [facility] at [facility]. It has not been cleared or approved [...] complexity clinical laboratory testing. Test performed at [facility], [address] [place] [address] This case has been personally reviewed and interpreted by the attending (teaching) pathologist. Final Diagnosis performed by Evelyn Santamaria MD. Electronically signed 09/15/2015 [facility] PATH[facility]Y LAB ([place]) Blood specimen (specimen) BLOOD SPECIMEN / Unknown 09/14/2015 12:14 AM PAPERHANGER PIPE 09/14/2015 12:21 AM PAPERHANGER PIPE Naomi You MD LAB - CHEMISTRY LUIS ENRIQUE CELIS [facility] ([place]) * (ABNORMAL) CERULOPLASMIN (09/14/2015 12:14 AM PAPERHANGER PIPE) Ceruloplasmin 16(L) 20 - 60 mg/dL [facility] Blood specimen (specimen) BLOOD SPECIMEN / Unknown 09/14/2015 12:14 AM PAPERHANGER PIPE 09/14/2015 12:23 AM PAPERHANGER PIPE Naomi You MD LAB - CHEMISTRY LUIS ENRIQUE CELIS Performing Organization Address City/[facility]/ZIP Co de Phone Number [address] [phone] * GHHNI-6-FRVOJJERVKG BLOOD (09/14/2015 12:14 AM PAPERHANGER PIPE) Only the most recent of2 resultswithin the time period is included. Ffoxj-0-Nlqcir ypsin 119 90 - 200 mg/dL [facility] Blood specimen (specimen) BLOOD SPECIMEN / Unknown 09/14/2015 12:14 AM P[employer]ERHANGER PIPE 09/14/2015 12:23 AM P[employer]ERHANGER PIPE Naomi You MD LAB - CHEMISTRY LUIS ENRIQUE CELIS Performing Organization Address [facility] Co de Phone Number [address] [phone] * IRON BLOOD (09/14/2015 12:14 AM PAPERHANGER PIPE) Iron 92 50 - 175 mcg/dL [facility] Blood specimen (specimen) BLOOD SPECIMEN / Unknown 09/14/2015 12:14 AM PAPERHANGER PIPE 09/14/2015 12:23 AM PAPERHANGER PIPE Naomi You MD LAB - CHEMISTRY LUIS ENRIQUE CELIS Performing Organization Address [facility]/ZIP Co de Phone Number [address] [phone] * OSMOLALITY URINE (09/12/2015 4:50 PM PAPERHANGER PIPE) Only the most recent of2 resultswithin the time period is included. Osmolality Urine 693 500 - 800 mOsm/kg [facility] Urine specimen (specimen) URINE SPECIMEN OBTAINED BY CLEAN CATCH PROCEDURE / Unknown 09/12/2015 4:50 PM PAPERHANGER PIPE 09/12/2015 4:58 PM PAPERHANGER PIPE Duran Wilhelm MD LAB - URINE CHEMISTR Y ORDERABLES Performing Organization Address [facility] Co de Phone Number [address] [phone] * URIC ACID BLOOD (09/12/2015 1:35 PM PAPERHANGER PIPE) Uric Acid 4.3 2.6 - 7.2 mg/dL [facility] Blood specimen (specimen) BLOOD SPECIMEN / Unknown 09/12/2015 1:35 PM P[employer]ERHANGER PIPE 09/12/2015 1:51 PM P[employer]ERHANGER PIPE Duran Wlihelm MD LAB - CHEMISTRY ORDE LALITA Performing Organization Address [facility] Co de Phone Number [address] [phone] * CORTISOL BLOOD PM (09/12/2015 1:35 PM PAPERHANGER PIPE) Cortisol PM 11.4 2.9 - 17.3 mcg/dL [facility] Blood specimen (specimen) BLOOD SPECIMEN / Unknown 09/12/2015 1:35 PM PAPERHANGER PIPE 09/12/2015 3:00 PM P[employer]ERHANGER PIPE Naomi You MD LAB - CHEMISTRY LUIS ENRIQUE CELIS Performing Organization Address [facility] Co de Phone Number [address] [phone] * US ABDOMEN LIMITED (09/12/2015 12:12 PM PAPERHANGER PIPE) Anatomical Region Laterality Modality Abdomen Other Impressions 09/13/2015 3:01 PM PAPERHANGER PIPE IMPRESSION: 1. Hepatic cirrhosis. No discrete hepatic [...] electronically signed by WALTER BACA M.D. on 09/12/2015 5:47 PM . Narrative 09/13/2015 3:01 PM PAPERHANGER PIPE EXAMINATION: 1. Limited abdominal sonogram 2. Color [...] Jessica Piedra on 09/12/2015 2:40 PM . IDr. WALTER M.D. have personally reviewed and interpreted thisexamination/study. This report was electronically signed by WALTER BACA M.D. on 09/12/20155:47 PM . Sadashiv Jesus MD US ORDERABLES * (ABNORMAL) OSMOLALITY BLOOD (09/11/2015 11:45 PM PAPERHANGER PIPE) Only the most recent of2 resultswithin the time period is included. Osmolality 269(L) 270 - 300 mOsm/kg [facility] Blood specimen (specimen) BLOOD SPECIMEN / Unknown 09/11/2015 11:45 PM PAPERHANGER PIPE 09/12/2015 12:11 AM PAPERHANGER PIPE Scott Lee MD LAB - CHEMISTRY ORDE RABLES Performing Organization Address [facility]/ZIP Co de Phone Number [address] [phone] * SODIUM URINE RANDOM (09/11/2015 9:47 PM PAPERHANGER PIPE) Sodium Urine 49 Not Established mmol/L [facility] Urine specimen (specimen) URINE / Unknown 09/11/2015 9:47 PM PAPERHANGER PIPE 09/11/2015 9:47 PM PAPERHANGER PIPE Scott Lee MD LAB - URINE CHEMISTR Y ORDERABLES Performing Organization Address [facility] Co de Phone Number [address] [phone] * UREA NITROGEN URINE RANDOM (09/11/2015 9:47 PM PAPERHANGER PIPE) Urea Nitrogen Random Urine 776 Not Established mg/dL [facility] Urine specimen (specimen) URINE / Unknown 09/11/2015 9:47 PM PAPERHANGER PIPE 09/11/2015 9:47 PM PAPERHANGER PIPE Scott Lee MD LAB - URINE CHEMISTR Y ORDERABLES Performing Organization Address [facility] Co de Phone Number [address] [phone] * CREATININE URINE RANDOM (09/11/2015 9:47 PM PAPERHANGER PIPE) Creatinine Urine 131 Not Established mg/dL [facility] Comment:Result obtained by prema zepeda. Urine specimen (specimen) URINE / Unknown 09/11/2015 9:47 PM PAPERHANGER PIPE 09/11/2015 9:47 PM PAPERHANGER PIPE Scott Lee MD LAB - URINE CHEMISTR Y ORDERABLES Performing Organization Address [facility] Co de Phone Number [address] [phone] * CULTURE URINE (09/11/2015 9:37 PM PAPERHANGER PIPE) Culture Urine No Growth of >=100 CFU/ml after [address] [facility] Urine specimen (specimen) URINE / Unknown 09/11/2015 9:37 PM PAPERHANGER PIPE 09/11/2015 9:46 PM PAPERHANGER PIPE Narrative [facility] - 09/14/2015 11:59 AM PAPERHANGER PIPE Specimen Type->Urine Scott Lee MD LAB - MICROBIOLOGY O RDERABLES Performing Organization Address [facility] Co de Phone Number [address] [phone] * (ABNORMAL) JARROD BLOOD SCREEN (09/11/2015 10:47 AM PAPERHANGER PIPE) JARROD Positive(A ) None Detected [facility] Venous blood specimen (specimen) 09/11/2015 10:47 AM PAPERHANGER PIPE 09/11/2015 10:52 AM PAPERHANGER PIPE Scott Lee MD LAB - CHEMISTRY ORDE RABLES Performing Organization Address [facility] Co de Phone Number [address] [phone] * JARROD BLOOD SCREEN W/REFLEX TITER (09/11/2015 10:47 AM PAPERHANGER PIPE) JARROD IFA Negative [facility] (BEAKER) Comment: Negative <1:80 Borderline 1:80 Positive >1:80 Venous blood specimen (specimen) BLOOD SPECIMEN / Unknown 09/11/2015 10:47 AM PAPERHANGER PIPE 09/12/2015 11:43 AM PAPERHANGER PIPE Narrative [facility] ([facility]IN) - 09/13/2015 5:11 PM PAPERHANGER PIPE Performed at: [address] [id number] Class A Regional Drivers: Tio Segal PhD, Phone: [phone] Scott Lee MD LAB - CHEMISTRY LUIS ENRIQUE CELIS Performing Organization Address City/[facility]/ZIP Co de Phone Number [facility] * SMOOTH MUSCLE ANTIBODY (09/11/2015 10:46 AM PAPERHANGER PIPE) F-Actin Antibody IgG 17.9 0.0 - 19.[address] [facility] Comment: F-Actin Antibody Numeric Result Interpretation: <20.0 Units: Negative 20.0 - 30.0 Units: Weak Positive >30.0 Units: Moderate to Strong Positive Blood specimen (specimen) BLOOD SPECIMEN / Unknown 09/11/2015 10:46 AM PAPERHANGER PIPE 09/11/2015 10:52 AM PAPERHANGER PIPE Scott Lee MD LAB - SEROLOGY ORDER MAYRA Performing Organization Address City/[facility]/ZIP Co de Phone Number [address] [phone] * (ABNORMAL) HEPATITIS B SURFACE ANTIBODY (09/11/2015 10:46 AM PAPERHANGER PIPE) Hepatitis B Virus Surface Antibody Reactive( A) Non-react rosendo [facility] Comment: > 12 mIU/mL Hepatitis B surface Antibody (HBsAb). Reactive for HBsAb - individual is considered immune to Hepatitis B Virus infection. Hepatitis B Surface Antibody Quantitative 76.9(H) <8.0 mIU/mL [facility] Comment: Hepatitis B Surface Antibody Numeric Result Interpretation: Nonreactive: <8.0 mIU/mL Indeterminate: 8.0 - 12.0 mIU/mL Reactive: >12.0 mIU/mL Blood specimen (specimen) BLOOD SPECIMEN / Unknown 09/11/2015 10:46 AM PAPERHANGER PIPE 09/11/2015 10:52 AM PAPERHANGER PIPE Scott Lee MD LAB - CHEMISTRY LUIS ENRIQUE CELIS Performing Organization Address City/[facility]/ZIP Co de Phone Number [address] [phone] * HEPATITIS C ANTIBODY (09/11/2015 10:46 AM PAPERHANGER PIPE) Hepatitis C Antibody Non-react rosendo Non-reac tive [facility] Comment: Hepatitis C Antibody screen indicates no serologic evidence of past or current infection with Hepatitis C Virus. Patients with unexplained liver disease who are immunocompromised or suspected of having acute Hepatitis C infection may benefit from Nucleic Acid Test (ERUM) for Hepatitis C Viral RNA to confirm Hepatitis C status. Blood specimen (specimen) BLOOD SPECIMEN / Unknown 09/11/2015 10:46 AM PAPERHANGER PIPE 09/11/2015 10:52 AM PAPERHANGER PIPE Scott Lee MD LAB - CHEMISTRY LUIS ENRIQUE CELIS Performing Organization Address [facility] [place] [address], [facility] [phone] * CULTURE BLOOD (09/11/2015 2:55 AM PAPERHANGER PIPE) Only the most recent of2 resultswithin the time period is included. Pathologist [facility] Culture Blood No Growth at [address] [facility] Blood specimen (specimen) 09/11/2015 2:55 AM PAPERHANGER PIPE 09/11/2015 3:00 AM PAPERHANGER PIPE N[address]ative [facility] - 09/16/2015 3:15 AM PAPERHANGER PIPE Draw 15 minutes after Culture 1 from a different site Scott Lee MD LAB - MICROBIOLOGY O RDERABLES Performing Organization Address City/[facility]/[place] [address], [facility] [phone] Care Teams Harvest Worker Fruit Relationship Specialty Start Date End Date Sharri Argueta DO [address] [place] [address] PCP - General 10/23/20 Qi Story, RN Registered Nurse 10/28/20
--- OUTSIDE RECORDS SUMMARY | 2024-11-11 13:03 | XMS_ITS | Encounter Summary ---
Author Organization [facility] Address [address] [place] [address] Care Team Providers Care Security Threat Analyst Name Role Phone Rod Sanches MD Primary Care Provider [phone] Phylicia Beck RN Unavailable Unavailable Sharri Argueta DO Primary Care Provider [phone] Rod Sanches MD Primary Care Provider [phone] Sharri Argueta DO Primary Care Provider [phone] Qi Stoyr RN Unavailable Unavailable Encounter Details Date Type Department Care Team (Late st Contact Info) Description 05/06/2018 Nutrition [facility] TRANSPLANT [address] [place] [id number] [address]/LOLLY Social History Tobacco Use Types Packs/Day Years Used Date Smoking Tobacco: Former Cigarettes Q uit: 09/11/1983 Smokeless Tobacco: Never Alcohol Use Standard Drinks/Week Comments No 0 (1 standard drink = 0.6 oz pur e alcohol) Sex and Gender Information Value Date Recorded Sex Assigned at Not on file Gender Identity Not on file Sexual Orientation Straight 07/31/2024 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 documented as of this encounter Progress Notes [...] Saturday- Dinner - 6 fried chicken wings, guyanese fries, HS - 6 cookies Saturday - [...] Description 02/02/2025 12:00 PM CDT Office Visit [facility] - [place] [address] [place] [address], [place] [id number] Ramon Morales MD [address] [place] [address] [place] [address] documented as of this encounter Visit Diagnoses Not on filedocumented in this encounter Care Teams Security Threat Analyst Relationship Specialty Start Date End Date Rod Sanches MD [address] [place] [address] PCP - General 06/09/16 01/13/20 Sharri Argueta DO [address] [place] [address] PCP - General 01/14/20 04/06/20 Rod Sanches MD [address] [place] [address] PCP - General 04/07/20 10/22/20 Sharri Argueta DO [address] [place] [address] PCP - General 10/23/20 Phylicia Beck, RN Registered Nurse 12/23/17 10/27/20 Qi Story, VALENTIN Registered Nurse 10/28/20 documented as of this encounter
--- OUTSIDE RECORDS SUMMARY | 2024-11-11 13:03 | XMS_ITS | Clinical Summary ---
Author Organization [facility] Address [facility] [place] [address] Care Team Providers Care Foam Rubber Fabricator Name Role Phone Rod Sanches MD Primary Care Provider [phone] Social History Tobacco Use Types Packs/Day Years [...] age to complete this topic Care Teams Foam Rubber Fabricator Relationship Specialty Start Date End Date Rod Sanches MD [address] [place] [phone] PCP - General 09/10/15
--- OUTSIDE RECORDS SUMMARY | 2024-11-11 13:03 | XMS_ITS ---
Author Organization [facility] Address [address] [place] [address] Care Team Providers Care Hooker Laster Name Role Phone Sharri Argueta DO Primary Care Provider [phone] Qi Story RN Unavailable Unavailable Transplant Episode Liver Recipient [facility] ([place], [place]) - [facility] Organ Received: Liver Transplanted on 11/03/2017 Marked as Active Follow-up on 11/03/2017 Liver CoordinatorQi Story RN Phone: N/A Fax: N/A Email: N/A [place] Organ Diagnosis Organ Primary Contributory Liver Cirrhosis: [...]
--- OUTSIDE RECORDS SUMMARY | 2024-11-11 13:03 | XMS_ITS | Clinical Summary ---
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 Gender Identity Not on file Sexual Orientation Not on file Last Filed Vital Signs Vital Sign Reading Time Taken Comments Blood Pressure 159/82 11/21/2017 5:54 AM CDT Pulse 63 11/21/2017 5:54 AM CDT Temperature 36.6 C (97.9 F) 11/21/2017 5:54 AM CDT Respiratory Rate 16 11/21/2017 5:54 AM CDT Oxygen Saturation 94% 11/21/2017 5:54 AM CDT Inhaled Oxygen Concentration - - Weight 110.2 kg (243 lb) 11/21/2017 7:00 AM CDT Height 185.4 cm (6' 1 ) 11/14/2017 8:00 PM SOFTBALL WINDER Body Mass Index 32.06 11/14/2017 8:00 PM SOFTBALL WINDER Plan of Treatment Health Maintenance Due Date [...] ANNUAL FOOT EXAM 05/08/2019 05/08/2018 PNEUMOCOCCAL VACCINE 50+ YEA RS (3 of 3 - PPSV23, PCV20 or PCV21) 09/11/2020 06/11/2019, 09/11/2015 DIABETES HBA1C Q 6 MONTHS 09/14/2020 03/14/2020, 05/2018 COVID-19 Vaccine (3 - Pfizer risk series) 12/27/2020 11/29/2020, 11/04/2020 INFLUENZA VACCINE (#1) 2024 05/31/2023, 2018 COLORECTAL SCREENING 04/04/2030 04/04/2020 Colorectal Cancer Screening 04/04/2030 Procedures Procedure Name Priority Date/Time Associated Diagnosis Comments LIPID PANEL Routine 11/15/2017 5:52 AM SOFTBALL WINDER HEMOGLOBIN A1C Routine 11/15/2017 5:52 AM SOFTBALL WINDER from Last 3 Months or Most Recently Relevant to Health Maintenance Results * HEMOGLOBIN A1C (11/15/2017 5:52 AM SOFTBALL WINDER) HEMOGLOBIN A1C 6.0 4.0 - 6.0 % 11/15/2017 11:36 AM [facility] [employer] [facility] EST. AVG GLUCOSE, A1C 126 mg/dL 11/15/2017 11:36 AM [facility] [employer] [facility] Blood Venipuncture / Unknown 11/15/2017 5:52 AM SOFTBALL WINDER 11/15/2017 10:35 AM SOFTBALL WINDER Zackary Alfonso [facility] CHEMISTRY ORDERABLES F inal Result [facility] [employer] [facility] CLIA# [id number] [address] [facility] [place] [address] * (ABNORMAL) LIPID PANEL (11/15/2017 5:52 AM SOFTBALL WINDER) CHOLESTEROL 119 <200 mg/dL 11/15/2017 11:33 AM [facility] [employer] [facility] TRIGLYCERIDE 121 <150 mg/dL 11/15/2017 11:33 AM [facility] [employer] [facility] HDL 24(L) 40 - 59 mg/dL 11/15/2017 11:33 AM [facility] [employer] [facility] LDL CALCULATED 71 <100 mg/dL 11/15/2017 11:33 AM [facility] [employer] [facility] NON-HDL CHOLESTEROL 95 <130 mg/dL 11/15/2017 11:33 AM [facility] [employer] [facility] Blood Venipuncture / Unknown 11/15/2017 5:52 AM SOFTBALL WINDER 11/15/2017 10:35 AM SOFTBALL WINDER Narrative [facility] [employer] [facility] - 11/15/2017 11:33 AM SOFTBALL WINDER TOTAL CHOLESTEROL mg/dL Desirable <200 Borderline high 200-239 High >=240 TRIGLYCERIDES mg/dL Normal <150 Borderline high 150-199 High 200-499 Very high >=500 HDL CHOLESTEROL mg/dL Low <40 Normal 40-59 Desirable >=60 NON HDL CHOLESTEROL mg/dL Optimal <130 Near Optimal 130-159 Borderline High 160-189 Very High >=190 Calculated LDL mg/dL Optimal <100 Near Optimal 100-129 Borderline High 130-159 High 160-189 Very High >=190 ATPIII Guidelines Reference Ranges for Lipid Panels (NCEP/AMA) Zackary Alfonso DMS CHEMISTRY ORDERABLES F inal Result [facility]# [id number] [address] [place] [address] from Last 3 Months or Most Recently Relevant to Health Maintenance Insurance [facility] BLUE PREFERRED Advance Directives For more information, please contact: [phone] * Full Code (Latest Code Status on File) Date Activated Date Inactivated Comments 11/14/2017 12:56 PM 11/21/2017 1:27 PM
--- OUTSIDE RECORDS SUMMARY | 2024-11-11 13:03 | XMS_ITS | Clinical Summary ---
Author Organization [facility] Address [address] [place] [address] Care Team Providers Care Industrial Retrofit Designer Name Role Phone Sharri Argueta DO Primary Care Provider [phone] Qi Story RN Unavailable Unavailable Source Comments [facility],non-owned Affiliates and Associated Physician Practices is amultiple site organization consisting of ambulatory clinics and hospital sitesin [place], [place], [place] and [place]. This disclosure is being madepursuant to the Care Everywhere program and may not contain all information available regarding this patient. 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 -start TAC oint BID PRN w wet wraps, instructions provided Multiple benign melanocytic nevi of upper extremity, lower extremity, and trunk 11/04/2020 Assessment & Plan (11/04/2020 12:01 PM ZANJERO): - None atypical or more concerning than others on exam today - Counseled on importance of daily sun protection, and monthly self skin exams - Reviewed ABCDEs of melanoma - Advised sun protective behaviors and regular sun screen use - Annual FBSE Lentigines 11/04/2020 Assessment & Plan (11/04/2020 12:01 PM ZANJERO): -Benign, reassurance Other specified dermatitis 11/04/2020 Seborrheic keratosis 11/04/2020 Neutropenia 10/28/2020 History of hepatocellular carcinoma 11/20/2018 Long-term use of immunosuppressant medication Benign essential HTN 08/28/2018 IPMN (intraductal papillary mucinous neoplasm) 0 05/23/2018 Fatty pancreas 05/08/2018 Right inguinal hernia 05/08/2018 Overview (05/08/2018): Indirect Diabetes mellitus type 2, uncontrolled 8 Pre-transplant evaluation for liver transplant 0 12/23/2017 Overview (12/23/2017): LISTED Diagnosis: BRADSHAW/HCC Referring Drywall Finisher: Andrew Alert: Will need renoportal at the [...] is the impression of this social work administrator that Robert Rico Cateanalia has several positive factors for Liver transplant candidacy including knowledge of illness, sufficient insurance coverage, stable financial situation for post transplant needs, and no concerns regarding substance abuse. SW concerns are patient's support system and discharge plan. Plan: diversified crops ii farmworker to provide supportive services as needed. Patient appears to be a reasonable candidate for transplant from a psychosocial perspective, pending: - Post transplant arrangement forms are needed prior to being listed, with confirmation. Psychiatric Consult Recommended: No Transplant Elevator Service Mechanic: MIKY OVERTON RD: 24 Hour Recall/food frequency: eggs, chocolate milk, salad, spaghetti, hamburger, [place] - loaiza seared, mash potatoes, broccoli, corn cauliflower, apples, ham and nigerian, lettuce and tomato sandwich, Ramen noodles about [...] Transplant Date: 11/03/2017 Donor: Standard criteria donor [id number] CMV D-/R-, EBV D+/R+ Pre-Transplant Summary: ESLD [...] PCP Adjustments: Readmissions: Biopsies: Explant Liver, explant, chitim[place] hepatectomy (A): - Cirrhosis (history of BRADSHAW) - Completely necrotic nodule in right lobe (4.0 cm) - Macroregenerative nodules, multifocal - Focal dysplasia (small and large cell changes) - Hepatocellular iron focally up to 4+ - No viable hepatocellular carcinoma identified Gallbladder, chitimacha hepatectomy (A): - Mild chronic cholecystitis Gallbladder, [...] cirrhosis. The PAS-D stain is negative for akwca-2-radumekndcz globules. The iron stain shows granular hepatocellular [...] from the prior study (LR 3). 2. Ijzbnw-kzmnf-nfexbh venous anastomosis, with unchanged aneurysmal dilatation at [...] liver without washout (LR 3). 2. Patent syybap-xtdyp-urtdle venous anastomosis, with unchanged aneurysmal dilatation of [...] recommended. Assessment & Plan (11/04/2020 12:01 PM ZANJERO): -discussed inc risk NMSC/MM - Reviewed ABCDEs [...] 10/21/2024 Refill [facility] [address] [place] [address] Ramon Morales MD Refill Request 10/02/2024 Orders Only [facility] [address] [place] [address] Ramon Morales MD Long-term use of immunosuppressant medication; S/P liver transplant (HCC) 09/14/2024 Refill [facility] [address] [place] [phone] Ramon Morales MD MEDICATION REFILL 08/28/2024 Telephone [facility] - Nephrology [address] [place] [phone] Ramon Morales MD Surgery Scheduling from Last 3 Months Immunizations Name Administration Dates Next Due [employer] primary monoval ent 12+ yr 0.3mL Purple [...] Sexual Orientation Straight 07/31/2024 7: 47 PM ZANJERO Last Filed Vital Signs Vital Sign Reading Time Taken Comments Blood Pressure 137/83 07/21/2024 1:48 PM ZANJERO Pulse 74 07/21/2024 1:48 PM ZANJERO Temperature 36.4 C (97.5 F) 05/31/2023 1:01 PM CDT Respiratory Rate 18 07/21/2024 1:48 PM ZANJERO Oxygen Saturation 99% 07/21/2024 1:48 PM ZANJERO Inhaled Oxygen Concentration - - Weight 93.7 kg (206 lb 9.6 oz) 07/21/2024 1:48 P M ZANJERO Height 182.9 cm (6') 07/21/2024 1:48 PM ZANJERO Body Mass Index 28.02 07/21/2024 1:48 PM ZANJERO Plan of Treatment Upcoming Encounters Date Type Department Care Team (Late st Contact Info) Description 02/02/2025 12:00 PM CDT Office Visit [facility] [address] [place] [address], [place] [phone] Ramon Morales MD [address] [place] [address] [place] [address] Health Maintenance Due Date Last Done Comments [...] - URINE PROTEIN SCREENING 09/09/2024 MEDICARE AWV CALENDAR YEAR 2024 DIABETES-SERUM CREATININE 07/15/20254, 02/12/2024, 11/12/2023, Additional history exists COLON MONITORING [...] COMPREHENSIVE METABOLIC PANEL Routine 07/15/2024 8:06 AM ZANJERO Long-term use of immunosuppressant medication S/P liver transplant (HCC) ENDOSCOPY, COLON, SCREENING Routine 04/04/2020 9:37 AM CDT HEMOGLOBIN A1C 03/14/2020 8:46 AM CDT HEPATITIS C ANTIBODY Routine 09/11/2015 10:46 AM ZANJERO from Last 3 Months or Most Recently Relevant to Health Maintenance Results * (ABNORMAL) COMPREHENSIVE METABOLIC PANEL (07/15/2024 8:06 AM ZANJERO) Glucose 149(H) 65 - 99 mg/dL [facility] [...] mL/min/1. 73m2 [facility] BUN/Creatinine Ratio SEE NOTE: - (calc) [facility] Comment: Not Reported: BUN and [...] 46 U/L [facility] Comment: Test Performed at: [address] [facility] [address] KAMAR ALEXANDRE MD Blood BLOOD SPECIMEN / Unknown 07/15/2024 8:06 AM ZANJERO 07/15/2024 8:07 AM ZANJERO Ramon Morales MD LAB - CHEMISTRY LUIS ENRIQUE CELIS [facility] Organization Address City/State/ZIP Co de Phone Number [facility] [address] [place] [address] * ENDOSCOPY, COLON, SCREENING (04/04/2020 9:37 AM CDT) Report Endoscopy POC Endoscopy Department Report _ Patient Name: Robert Recklein Procedure Date: 04/04/2020 9:37 AM Date of [...] and oxygen saturations were monitored continuously. The CF-FT092J was introduced through the anus and advanced to the cecum, identified by appendiceal orifice and ileocecal valve. The colonoscopy was performed without difficulty. The patient tolerated the procedure well. The quality of the bowel preparation was evaluated using the BBPS ([place] Bowel Preparation Scale) with scores of: Right [...] non-shelby portions. Procedure Code(s): --- Professional --- 04348, Colonoscopy, flexible; with removal of tumor(s), polyp(s), or other lesion(s) by snare technique 80334, 59, Colonoscopy, flexible; with biopsy, single or multiple Diagnosis Code(s): --- Professional --- Z12.11, Encounter for screening for malignant neoplasm of colon K63.5, Polyp of colon K62.1, Rectal polyp CPT copyright 2019 [employer]. All rights reserved. The codes documented in this report are preliminary and upon insurance account specialist review may be revised to meet current compliance requirements. _ Ramon Morales MD 04/04/2020 10:34:35 AM This report has been signed electronically. Note Initiated On: 04/04/2020 9:37 AM Number of Addenda: 0 [facility] [address] [facility], [place] [address] [facility] 04/04/2020 9:37 AM CDT Elda Rashid MD GI PROCEDURE ORDERAB LES Performing Organization Address [facility]/ZIP Co de Phone Number [facility] * (ABNORMAL) HEMOGLOBIN A1C (03/14/2020 [...] of diabetes for children. Test Performed at: [facility] [address] [place] [address] OMARI HOFFMANN DO,MPH 03/14/2020 8:46 AM CDT 03/14/2020 8:47 AM CDT Ramon Morales MD LAB - CHEMISTRY LUIS ENRIQUE CELIS Performing Organization Address City/[facility]/ZIP Co de Phone Number [facility] [address] [place] [address] * HEPATITIS C ANTIBODY (09/11/2015 10:46 AM ZANJERO) Hepatitis C Antibody Non-react rosendo Non-reac tive [facility] Comment: Hepatitis C Antibody [...] BLOOD SPECIMEN / Unknown 09/11/2015 10:46 AM ZANJERO 09/11/2015 10:52 AM ZANJERO Scott Lee MD LAB - CHEMISTRY LUIS ENRIQUE CELIS [address] [phone] from Last 3 Months or Most Recently Relevant to Health Maintenance Advance Directives Documents on File Type Date Recorded Patient [employer] Weigher And Packer Expl anation Advance Directives and Livin g Will 07/17/2016 12:00 AM Advance Directives and Livin g Will 09/11/2015 12:00 AM Care Teams Industrial Retrofit Designer Relationship Specialty Start Date End Date Sharri Argueta DO [address] [place] [address] PCP - General 10/23/20 Qi Story, RN Registered Nurse 10/28/20
== END 2024-11-11 11:17 | disposition home or self-care (01) ==
LOC: ANHSURGERY 11:19
PROVIDERS: PCP Family Medicine; Visit Provider Neurological Surgery
DX: Z01.818 Encounter for other preprocedural examination (principal); G95.9 Disease of spinal cord, unspecified
CPT/HCPCS: 36415; 80048; 85027; 85055; 86850; 86900; 86901

== ENCOUNTER 2024-11-20 00:48 | Day surgery (SDC) | payer MEDICARE, SELFPAY ==
[2024-09-22 11:55] VITALS: BP 131/81; PULSE 78; RESP 16; TEMP 37; O2SAT 99; BMI 26.8
--- NOTE | 2024-09-22 12:52 | PC.NURSE ---
Report to the Outpatient Waiting Room, entrance under the green pavilion located off [facility], at time ___6:00AM____ on date ___10/09/24____. Planned Procedure Time: __7:30AM .? Time changes happen often and if your time is changed the preop area will call you the afternoon before. - You and your visitor will be asked to self-screen and do not enter if you have any COVID symptoms. Please call surgeon if you need to reschedule. - A mask is optional within the hospital at this time. Patients may have clear liquids (water, carbonated beverages, clear teas, apple juice) until 3 hours prior to surgery with a maximum of 20 ounces. - No food from midnight until time of surgery and no smoking. This includes no chewing gum, candy or mints. Take only the following medications with a SIP of water on the morning of surgery: AMLODIPINE, CARVEDILOL, DOXAZOSIN, TACROLIMUS. ALBUTEROL INHALER AND HYDROCODONE NEEDED. DO NOT STOP ANY OF YOUR OTHER PRESCRIPTION MEDICATIONS PRIOR TO SURGERY EXCEPT THE FOLLOWING Medications to discontinue per physician ____HOLD ALL VITAMINS/SUPPLEMENTS 3 DAYS PRE-OP PER ANESTHESIA- LAST DOSE 10/05/24. HOLD ASPIRIN PER DR GONSALEZ PATIENT CALLING TO CONFIRM Please no make-up, nail kyrgyz, hairspray, perfume, deodorant, or body powder the day of surgery.? No jewelry (including any body piercings) or valuables the day of surgery, leave them at home.? Please take a shower or bath the night before, or the morning of, surgery with an antibacterial soap.? Wear comfortable, loose fitting clothing.? Children are encouraged to wear pajamas. - Jewelry must be removed prior to entering the operating room.? Rings and piercings that are not removed may be cut off. - The hospital will not accept responsibility for valuables.? - Please leave all valuables, including medications, at home the day of surgery. If you are going home after surgery, a licensed transporter driver must drive you home.? - NO public transportation without another adult if you receive anesthesia. - We recommend that an adult stay with you for 24 hours following discharge. - We also recommend that you do not drive, make important decision, drink alcoholic beverages, or take any drugs that were not prescribed by your health care provider for at least 24 hours after your discharge time. Follow any additional instructions given to you from your surgeon. Telephone instructions given to ____PATIENT and asked if any additional questions and then verbalized understanding. Patient advised to call surgeon office or pre surgery nurse liaison [phone] if any additional questions.
[2024-11-04 09:35] VITALS: BMI 25.9
--- NOTE | 2024-11-04 11:43 | PC.NURSE ---
Report to the Outpatient Waiting Room, entrance under the green pavilion located off [facility], at time ___6:00AM____ on date __11/20/24 . Planned Procedure Time: ___7:30AM .? Time changes happen often and if your time is changed the preop area will call you the afternoon before. - You and your visitor will be asked to self-screen and do not enter if you have any COVID symptoms. Please call surgeon if you need to reschedule. - A mask is optional within the hospital at this time. Patients may have clear liquids (water, carbonated beverages, clear teas, apple juice) until 3 hours prior to surgery (4:30AM) with a maximum of 20 ounces. - No food from midnight until time of surgery and no smoking, or chewing tobacco (or any form of nicotine). No chewing gum, candy or mints. Take only the following medications with a SIP of water on the morning of surgery: ___AMLODIPINE, CARVEDILOL, TACROLIMUS. USE ALBUTEROL INHALER NEEDED. DO NOT STOP ANY OF YOUR OTHER PRESCRIPTION MEDICATIONS PRIOR TO SURGERY EXCEPT THE FOLLOWING Hold all vitamins and supplements for 3 days per anesthesiologist.-LAST DOSE 11/16/24. Medications to discontinue per physician __HOLD ASPIRIN 7 DAYS PRE-OP PER DR GONSALEZ Date to take last dose 11/12/24 Please no make-up, nail kittitian, hairspray, perfume, deodorant, or body powder the day of surgery.? No jewelry (including any body piercings) or valuables the day of surgery, leave them at home.? Please take a shower or bath the night before, or the morning of, surgery with an antibacterial soap.? Wear comfortable, loose fitting clothing.? - Jewelry must be removed prior to entering the operating room.? Rings and piercings that are not removed may be cut off. - The hospital will not accept responsibility for valuables.? - Please leave all valuables, including medications, at home the day of surgery. If you are going home after surgery, a licensed airport shuttle driver must drive you home.? - NO public transportation without another adult if you receive anesthesia. - We recommend that an adult stay with you for 24 hours following discharge. - We also recommend that you do not drive, make important decision, drink alcoholic beverages, or take any drugs that were not prescribed by your health care provider for at least 24 hours after your discharge time. Follow any additional instructions given to you from your surgeon. Telephone instructions given to ____PATIENT and asked if any additional questions and then verbalized understanding. Patient advised to call surgeon office or pre surgery nurse liaison [phone] if any additional questions.
[2024-11-20] VITALS (12 sets, daily range): BP systolic 130–152; BP diastolic 52–91; PULSE 66–101; RESP 12–18; TEMP 36.1–36.4; O2SAT 96–100; BMI 26.8
--- NOTE | ~2024-11-20 | XR_ITS ---
INTRAOPERATIVE FLUOROSCOPY: CLINICAL HISTORY: 69 years old Male; CERVICAL DISCECTOMY WITH FUSION C3-5 PROCEDURE COMMENTS: Limited intraoperative fluoroscopy of the cervical spine was performed. CUMULATIVE DOSE: 2.1 mGy FLUOROSCOPY TIME: 19.2 seconds FINDINGS/IMPRESSION: Please refer to operative note for further details. Reviewed, dictated and finalized at location A.
--- OUTSIDE RECORDS SUMMARY | 2024-11-20 00:51 | XMS_ITS | Referral Summary ---
Author Organization [facility] Address [address] [place] [address] Care Team Providers Care Pigment Pumper Name Role Phone Sharri Argueta DO Primary Care Provider [phone] Qi Story RN Unavailable Unavailable Source Comments [facility],non-owned Affiliates and Associated Physician Practices is amultiple site organization consisting of ambulatory clinics and hospital sitesin [place], [place], [place] and [place]. This disclosure is being madepursuant to the Care Everywhere program and may not contain all information available regarding this patient. Last updated 18.[facility] Encounters Date Type Department Care Team Description 10/21/2024 Refill [facility] [address] [place] [address], [place] [phone] Ramon Morales MD Refill Request 10/02/2024 Orders Only [facility] - [address] [phone] Ramon Morales MD Long-term use of immunosuppressant medication; S/P liver transplant (HCC) 09/14/2024 Refill [facility] [address] [place] [address], [place] [phone] Ramon Morales MD MEDICATION REFILL 08/28/2024 Telephone [facility] Nephrology [address] [facility], [place] [address] Ramon Morales MD Surgery Scheduling from Last [...] 021 Assessment & Plan (11/04/2020 12:02 PM LAWYER): -L ankle/foot -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 -start TAC oint BID PRN w wet wraps, instructions provided Multiple benign melanocytic nevi of upper extremity, lower extremity, and trunk 11/04/2020 Assessment & Plan (11/04/2020 12:01 PM LAWYER): - None atypical or more concerning than others on exam today - Counseled on importance of daily sun protection, and monthly self skin exams - Reviewed ABCDEs of melanoma - Advised sun protective behaviors and regular sun screen use - Annual FBSE Lentigines 11/04/2020 Assessment & Plan (11/04/2020 12:01 PM LAWYER): -Benign, reassurance Other specified dermatitis 11/04/2020 Seborrheic keratosis 11/04/2020 Neutropenia 10/28/2020 History of hepatocellular carcinoma 11/20/2018 Long-term use of immunosuppressant medication Benign essential HTN 08/28/2018 IPMN (intraductal papillary mucinous neoplasm) 0 05/23/2018 Fatty pancreas 05/08/2018 Right inguinal hernia 05/08/2018 Overview (05/08/2018): Indirect Diabetes mellitus type 2, uncontrolled 8 Pre-transplant evaluation for liver transplant 0 12/23/2017 Overview (12/23/2017): LISTED Diagnosis: BRADSHAW/HCC Referring Fitness Technician: Andrew Alert: Will need renoportal at the [...] Impression: It is the impression of this transition social worker that Robert Harrell has several positive factors for Liver transplant candidacy including knowledge of illness, sufficient insurance coverage, stable financial situation for post transplant needs, and no concerns regarding substance abuse. SW concerns are patient's support system and discharge plan. Plan: refuse and recycling worker to provide supportive services as needed. Patient appears to be a reasonable candidate for transplant from a psychosocial perspective, pending: - Post transplant arrangement forms are needed prior to being listed, with confirmation. Psychiatric Consult Recommended: No Transplant Picking Tech: MIKY OVERTON RD: 24 Hour Recall/food frequency: eggs, chocolate milk, salad, spaghetti, hamburger, [place] - loaiza seared, mash potatoes, broccoli, corn cauliflower, apples, ham and nepalese, lettuce and tomato sandwich, Ramen noodles about [...] Transplant Date: 11/03/2017 Donor: Standard criteria donor [id number] CMV D-/R-, EBV D+/R+ Pre-Transplant Summary: ESLD [...] PCP Adjustments: Readmissions: Biopsies: Explant Liver, explant, [place] hepatectomy (A): - Cirrhosis (history of BRADSHAW) - Completely necrotic nodule in right lobe (4.0 cm) - Macroregenerative nodules, multifocal - Focal dysplasia (small and large cell changes) - Hepatocellular iron focally up to 4+ - No viable hepatocellular carcinoma identified Gallbladder, [place] hepatectomy (A): - Mild chronic cholecystitis Gallbladder, [...] cirrhosis. The PAS-D stain is negative for yjqcr-7-qnpxsltmkkb globules. The iron stain shows granular hepatocellular [...] from the prior study (LR 3). 2. Hzzbvi-bmtpb-ouzdai venous anastomosis, with unchanged aneurysmal dilatation at [...] liver without washout (LR 3). 2. Patent vmvrhl-ooblj-gwfmfc venous anastomosis, with unchanged aneurysmal dilatation of [...] recommended. Assessment & Plan (11/04/2020 12:01 PM LAWYER): -discussed inc risk NMSC/MM - Reviewed ABCDEs [...] 12/23/2017 Immunizations Name Administration Dates Next Due [employer] primary monoval ent 12+ yr 0.3mL Purple [...] Sexual Orientation Straight 07/31/2024 7: 47 PM LAWYER Last Filed Vital Signs Vital Sign Reading Time Taken Comments Blood Pressure 137/83 07/21/2024 1:48 PM LAWYER Pulse 74 07/21/2024 1:48 PM LAWYER Temperature 36.4 C (97.5 F) 05/31/2023 1:01 PM CDT Respiratory Rate 18 07/21/2024 1:48 PM LAWYER Oxygen Saturation 99% 07/21/2024 1:48 PM LAWYER Inhaled Oxygen Concentration - - Weight 93.7 kg (206 lb 9.6 oz) 07/21/2024 1:48 P M LAWYER Height 182.9 cm (6') 07/21/2024 1:48 PM LAWYER Body Mass Index 28.02 07/21/2024 1:48 PM LAWYER Plan of Treatment Upcoming Encounters Date Type Department Care Team (Late st Contact Info) Description 02/02/2025 12:00 PM CDT Office Visit [facility] [facility], [place] [address] Ramon Morales MD [address] [place] [address] [place] [address] Goals Goal Patient Goal Type Associated Problems Recent Progress Patient-Stated? Author Medication Management General On track( 023 1:11 PM CDT) No Ayah Coleman RN Note: Expected end date: ongoing Interventions: Take all medications as prescribed Procedures Procedure Name Priority Date/Time Associated Diagnosis Comments COMPREHENSIVE METABOLIC PANEL Routine 07/15/2024 8:06 AM LAWYER Long-term use of immunosuppressant medication S/P liver transplant (HCC) ENDOSCOPY, COLON, SCREENING Routine 04/04/2020 9:37 AM CDT HEMOGLOBIN A1C 03/14/2020 8:46 AM CDT HEPATITIS C ANTIBODY Routine 09/11/2015 10:46 AM LAWYER from Last 3 Months or Most Recently Relevant to Health Maintenance Results * (ABNORMAL) COMPREHENSIVE METABOLIC PANEL (07/15/2024 8:06 AM LAWYER) Glucose 149(H) 65 - 99 mg/dL [facility] [...] 46 U/L [facility] Comment: Test Performed at: [facility] [address] [place] [address] KAMAR ALEXANDRE MD Blood BLOOD SPECIMEN / Unknown 07/15/2024 8:06 AM LAWYER 07/15/2024 8:07 AM LAWYER Ramon Morales MD LAB - CHEMISTRY ORDE LALITA [facility] [address] [place] [address] * ENDOSCOPY, COLON, SCREENING (04/04/2020 9:37 AM [...] and oxygen saturations were monitored continuously. The CF-IJ102J was introduced through the anus and advanced to the cecum, identified by appendiceal orifice and ileocecal valve. The colonoscopy was performed without difficulty. The patient tolerated the procedure well. The quality of the bowel preparation was evaluated using the BBPS ([place] Bowel Preparation Scale) with scores of: Right [...] non-shelby portions. Procedure Code(s): --- Professional --- 35942, Colonoscopy, flexible; with removal of tumor(s), polyp(s), or other lesion(s) by snare technique 58351, 59, Colonoscopy, flexible; with biopsy, single or multiple Diagnosis Code(s): --- Professional --- Z12.11, Encounter for screening for malignant neoplasm of colon K63.5, Polyp of colon K62.1, Rectal polyp CPT copyright 2019 [employer]. All rights reserved. The codes documented in this report are preliminary and upon game producer review may be revised to meet current compliance requirements. _ Ramon Morales MD 04/04/2020 10:34:35 AM This report has been signed electronically. Note Initiated On: 04/04/2020 9:37 AM Number of Addenda: [address] [facility] [address] [place] [address] [facility] 04/04/2020 9:37 AM CDT Elda Rashid MD GI PROCEDURE ORDERAB LES Performing Organization Address [facility]/ZIP Co de Phone Number [facility] * (ABNORMAL) HEMOGLOBIN A1C (03/14/2020 8:46 AM CDT) Pathologist [facility] Hemoglobin A1c 6.0(H) <5.7 % of total [...] of diabetes for children. Test Performed at: [facility] [address] [place] [address] OMARI HOFFMANN DO,MPH 03/14/2020 8:46 AM CDT 03/14/2020 8:47 AM CDT Ramon Morales MD LAB - CHEMISTRY LUIS ENRIQUE CELIS Performing Organization Address [facility] Co de Phone Number [facility] [address] [place] [address] * HEPATITIS C ANTIBODY (09/11/2015 10:46 AM LAWYER) [facility] Hepatitis C Antibody Non-react rosendo Non-reac tive [facility] Comment: Hepatitis C Antibody [...] BLOOD SPECIMEN / Unknown 09/11/2015 10:46 AM LAWYER 09/11/2015 10:52 AM LAWYER Scott Lee MD LAB - CHEMISTRY LUIS ENRIQUE CELIS Performing Organization Address City/[facility]/ZIP Co de Phone Number [facility] [address] [place] [address] from Last 3 Months or Most Recently Relevant to Health Maintenance Advance Directives Documents on File Type Date Recorded Patient Staff Attorney Expl anation Advance Directives and Livin g Will 07/17/2016 12:00 AM Advance Directives and Livin g Will 09/11/2015 12:00 AM Care Teams Pigment Pumper Relationship Specialty Start Date End Date Sharri Argueta DO [address] [place] [address] PCP - General 10/23/20 Qi Story, RN Registered Nurse 10/28/20
--- OUTSIDE RECORDS SUMMARY | 2024-11-20 00:51 | XMS_ITS ---
Author Organization [facility] Address [address] 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 -start TAC oint BID PRN w wet wraps, instructions provided Multiple benign melanocytic nevi of upper extremity, lower extremity, and trunk 11/04/2020 Assessment & Plan (11/04/2020 12:01 PM [place]SH[place]): - None atypical or more concerning than others on exam today - Counseled on importance of daily sun protection, and monthly self skin exams - Reviewed ABCDEs of melanoma - Advised sun protective behaviors and regular sun screen use - Annual FBSE Lentigines 11/04/2020 Assessment & Plan (11/04/2020 12:01 PM [place] MARSH[place]): -Benign, reassurance Other specified dermatitis 11/04/2020 Seborrheic keratosis 11/04/2020 Neutropenia 10/28/2020 History of hepatocellular carcinoma 11/20/2018 Long-term use of immunosuppressant medication Benign essential HTN 08/28/2018 IPMN (intraductal papillary mucinous neoplasm) 0 05/23/2018 Fatty pancreas 05/08/2018 Right inguinal hernia 05/08/2018 Overview (05/08/2018): Indirect Diabetes mellitus type 2, uncontrolled 8 Pre-transplant evaluation for liver transplant 0 12/23/2017 Overview (12/23/2017): LISTED Diagnosis: BRADSHAW/HCC Referring Mapping Specialist: Andrew Alert: Will need renoportal at the [...] It is the impression of this social security benefits interviewer that Robert Harrell has several positive factors for Liver transplant candidacy including knowledge of illness, sufficient insurance coverage, stable financial situation for post transplant needs, and no concerns regarding substance abuse. SW concerns are patient's support system and discharge plan. Plan: community health outreach worker to provide supportive services as needed. Patient appears to be a reasonable candidate for transplant from a psychosocial perspective, pending: - Post transplant arrangement forms are needed prior to being listed, with confirmation. Psychiatric Consult Recommended: No Transplant Utility Worker Production: MIKY OVERTON RD: 24 Hour Recall/food frequency: eggs, chocolate milk, salad, spaghetti, hamburger, [place] - loaiza seared, mash potatoes, broccoli, corn cauliflower, apples, ham and vietnamese, lettuce and tomato sandwich, Ramen noodles about [...] Transplant Date: 11/03/2017 Donor: Standard criteria donor [id number] CMV D-/R-, EBV D+/R+ Pre-Transplant Summary: ESLD [...] PCP Adjustments: Readmissions: Biopsies: Explant Liver, explant, [place] hepatectomy (A): - Cirrhosis (history of BRADSHAW) - Completely necrotic nodule in right lobe (4.0 cm) - Macroregenerative nodules, multifocal - Focal dysplasia (small and large cell changes) - Hepatocellular iron focally up to 4+ - No viable hepatocellular carcinoma identified Gallbladder, mechoopda hepatectomy (A): - Mild chronic cholecystitis Gallbladder, [...] cirrhosis. The PAS-D stain is negative for wgepv-7-nqxqgpinjsu globules. The iron stain shows granular hepatocellular [...] from the prior study (LR 3). 2. Ckqyzu-njqia-dvnqep venous anastomosis, with unchanged aneurysmal dilatation at [...] liver without washout (LR 3). 2. Patent blqzfs-mzkpq-diykob venous anastomosis, with unchanged aneurysmal dilatation of [...] recommended. Assessment & Plan (11/04/2020 12:01 PM TOWN MARSH[place]): -discussed inc risk NMSC/MM - Reviewed ABCDEs [...] treatments are documented for this patient in [facility]. Treatments may have been administered in another [...]
--- OUTSIDE RECORDS SUMMARY | 2024-11-20 00:51 | XMS_ITS | Patient Health Summary ---
Author Organization [facility] Address [address] [place] [address] Care Team Providers Care Photographic Aide Name Role Phone Sharri Argueta DO Primary Care Provider [phone] Qi Story RN Unavailable Unavailable Note from [facility],non-owned Affiliates and Associated Physician Practices is amultiple site organization consisting of ambulatory clinics and hospital sitesin [place], [place], [place] and [place]. This disclosure is being madepursuant to the Care Everywhere program and may not contain all information available regarding this patient. Last updated 18.[facility] Allergies * Cephalexin(Nausea and/or Vomiting,Other) [...] and hyponatremia 09/12/2015 12/23/2017 Immunizations * Covid [employer] primary monovalent 12+ yr 0.3mL Purple cap(Given [...] Sexual Orientation Straight 07/31/2024 7: 47 PM GLASS HANDLER Last Filed Vital Signs Vital Sign Reading Time Taken Comments Blood Pressure 137/83 07/21/2024 1:48 PM GLASS HANDLER Pulse 74 07/21/2024 1:48 PM GLASS HANDLER Temperature 36.4 C (97.5 F) 05/31/2023 1:01 PM CDT Respiratory Rate 18 07/21/2024 1:48 PM GLASS HANDLER Oxygen Saturation 99% 07/21/2024 1:48 PM GLASS HANDLER Inhaled Oxygen Concentration - - Weight 93.7 kg (206 lb 9.6 oz) 07/21/2024 1:48 P M GLASS HANDLER Height 182.9 cm (6') 07/21/2024 1:48 PM GLASS HANDLER Body Mass Index 28.02 07/21/2024 1:48 PM GLASS HANDLER Procedures * TACROLIMUS LEVEL(Performed 07/15/2024) Performed for [...] ABDOMEN MULTI PHASE W CONT(Performed 04/20/2016) * UZDCV-1-[id number] BLOOD PHENOTYPING PANEL(Performed 03/26/2016) * CBC W [...] HEPATITIS B CORE ANTIBODY TOTAL(Performed 09/14/2015) * DQSVR-2-XLTCMNGLYHZ BLOOD(Performed 09/14/2015) * CERULOPLASMIN(Performed 09/14/2015) * BASIC [...] 09/11/2015) * HEPATITIS C ANTIBODY(Performed 09/11/2015) * LTHVO-1-NKAOLUOSQSV BLOOD(Performed 09/11/2015) * GLUCOSE ACCUCHECK(Performed 09/11/2015) * [...] Results * TACROLIMUS LEVEL (07/15/2024 8:06 AM GLASS HANDLER) Only the most recent of82 resultswithin the time period is included. Tacrolimus 6.2 mcg/L [facility] Comment: No definitive therapeutic or toxic ranges have been established. Optimal blood drug levels are influenced by type of transplant, patient response, time post- transplant, co-administration of other drugs, and drug formulation. The following trough range is a suggested guideline: 5.0-20.0 mcg/L. Test Performed at: [facility] [place] [address] [facility] [address] KAMAR ALEXANDRE MD Blood BLOOD SPECIMEN / Unknown 07/15/2024 8:06 AM GLASS HANDLER 07/15/2024 8:07 AM GLASS HANDLER Ramon Morales MD LAB - THERAPEUTIC DR NICK MONITORING ORDERABLES [facility] [address] [place] [address] * (ABNORMAL) CBC WITH DIFFERENTIAL (07/15/2024 8:06 AM GLASS HANDLER) Only the most recent of132 resultswithin the [...] 0.6 % [facility] Comment: Test Performed at: [facility] [address] [place] [address] KAMAR ALEXANDRE MD Blood BLOOD SPECIMEN / Unknown 07/15/2024 8:06 AM GLASS HANDLER 07/15/2024 8:07 AM GLASS HANDLER Ramon Morales MD LAB - HEMATOLOGY ORD ERABLES Performing Organization Address [facility] Co de Phone Number [facility] [address] [place] [address] * (ABNORMAL) COMPREHENSIVE METABOLIC PANEL (07/15/2024 8:06 AM GLASS HANDLER) Only the most recent of51 resultswithin the [...] 46 U/L [facility] Comment: Test Performed at: [facility] [address] [place] [address] KAMAR ALEXANDRE MD Blood BLOOD SPECIMEN / Unknown 07/15/2024 8:06 AM GLASS HANDLER 07/15/2024 8:07 AM GLASS HANDLER Ramon Morales MD LAB - CHEMISTRY LUIS ENRIQUE CELIS Performing Organization Address [facility] Co de Phone Number [facility] [address] [place] [address] * (ABNORMAL) DIFFERENTIAL MANUAL REFLXED III (02/12/2024 [...] perform a manual review. Test Performed at: [facility] [id number] [place] [address] KAMAR ALEXANDRE MD 02/12/2024 7:43 AM CDT 02/12/2024 7:43 AM CDT Ramon Morales MD LAB - HEMATOLOGY ORD ERABLES [facility] [address] [place] [address] * MRI ABDOMEN W MRCP WWO CONT [...] > Dictated by Reshma Hairston MD (radiology teacher). I, Raymond Dean MD have personally reviewed and interpreted this examination/study. > Interpreting Provider: Raymond Dean MD on 12/06/2023 4:25 PM Narrative 12/06/2023 4:25 PM CDT EXAMINATION: MRI ABDOMEN W MRCP WWO CONT W3D DATE/TIME OF EXAM: 12/06/2023 11:29 AM, LOCATION [facility] HISTORY: I10: Benign essential HTN Z94.4: S/P [...] DATE/TIME OF EXAM: 12/06/2023 11:29 AM, LOCATION [facility] HISTORY: I10: Benign essential HTN Z94.4: S/P [...] > Dictated by Reshma Hairston MD (radiology teacher). I, Raymond Dean MD have personally reviewed [...] LDL-C. Mick SS et al. BRODIE. 2013;310(19): 4106-4123 (http://education.Cobase/faq/JIS717) CHOL/HDLC RATIO 4.0 <5.0 (calc) [facility] Non HDL Cholesterol 126 <130 mg/dL (calc) [facility] Comment: For patients with diabetes plus 1 major ASCVD risk factor, treating to a non-HDL-C goal of <100 mg/dL (LDL-C of <70 mg/dL) is considered a therapeutic option. Test Performed at: [facility] [address] [place] [address] KAMAR ALEXANDRE MD 05/22/2023 8:07 AM CDT 05/22/2023 8:07 AM CDT Ramon Morales MD LAB - CHEMISTRY ORDSherrill [facility] [address] [place] [address] * MRI ABDOMEN WWO CONTRAST (10/18/2022 10:40 AM GLASS HANDLER) Only the most recent of10 resultswithin the time period is included. Anatomical Region Laterality Modality Abdomen Magnetic Resonan ce 10/18/2022 11:2 1 AM GLASS HANDLER Impressions 10/18/2022 11:36 AM GLASS HANDLER Impression: 1.Redemonstrated postoperative changes from orthotopic liver [...] dictated by FADY ESPARZA MD, MD (radiology teacher). > Interpreting Provider: FADY ESPARZA MD on 10/18/2022 11:36 AM Narrative 10/18/2022 11:36 AM GLASS HANDLER PROCEDURE: MRI ABDOMEN WWO CONTRAST, DATE/TIME OF EXAM: 10/18/2022 10:40 AM, LOCATION [facility] INDICATION: Z94.4: S/P liver transplant (CMS/HCC) Z79.60: [...] DATE/TIME OF EXAM: 10/18/2022 10:40 AM, LOCATION [facility] INDICATION: Z94.4: S/P liver transplant (CMS/HCC) Z79.60: [...] confluence. Report dictated by FADY ESPARZA MD, (radiology teacher). > Interpreting Provider: FADY ESPARZA MD on 10/18/2022 11:36 AM Ramon Morales MD MR ORDERABLES * CT CHEST WO CONTRAST (10/18/2022 9:10 AM GLASS HANDLER) Only the most recent of9 resultswithin the time period is included. Anatomical Region Laterality Modality Chest Computed Tomogra phy 10/18/2022 10:1 8 AM GLASS HANDLER Impressions 10/18/2022 4:41 PM GLASS HANDLER Impression: Unchanged bilateral nodules measuring up to 2 mm. > Dictated by Jose Anthony MD, MD (radiology teacher). > Dictated by Jose Anthony MD (Information Security Manager) 10/18/2022 2:09 PM IRaymond MD have personally reviewed and interpreted this examination/study. > Interpreting Provider: Raymond Dean MD on 10/18/2022 4:41 PM Narrative 10/18/2022 4:41 PM GLASS HANDLER PROCEDURE: CT CHEST WO CONTRAST, DATE/TIME OF EXAM: 10/18/2022 9:10 AM, LOCATION [facility] INDICATION: Z94.4: S/P liver transplant (CMS/HCC) Z79.60: [...] DATE/TIME OF EXAM: 10/18/2022 9:10 AM, LOCATION [facility] INDICATION: Z94.4: S/P liver transplant (CMS/HCC) Z79.60: [...] Dictated by Jose Anthony MD, MD (radiology teacher). > Dictated by Jose Anthony MD (Information Security Manager) 10/18/2022 2:09 PM I, Raymond Dean MD have personally reviewed and interpreted this examination/study. > Interpreting Provider: Raymond Dean MD on 10/18/2022 4:[address] MD [address] ORDERABLES * (ABNORMAL) PLATELET ESTIMATE REFLEXED (04/19/2022 7:55 AM CDT) Only the most recent of29 resultswithin the time period is included. [facility] Platelet Estimation DECREASED (A) ADEQUATE [facility] Comment: Test Performed at: [facility] [place] [address] [place] [address] PETER HOFFMANN DO,MPH 04/19/2022 7:55 AM CDT 04/19/2022 7:55 AM CDT Ramon Morales MD LAB - HEMATOLOGY ORD ERABLES [facility] [address] [place] [address] * CREATININE - POCT INTERFACED (10/17/2021 10:28 AM GLASS HANDLER) Only the most recent of2 resultswithin the time period is included. [facility] Creatinine POCT 0.64 0.30 - 1.30 mg/dL 10/17/2021 10:30 AM [facility] eGFR >90 >90 mL/min/1.7 3 m2 10/17/2021 10:30 AM [facility] Blood BLOOD SPECIMEN / Unknown 10/17/2021 10:28 AM GLASS HANDLER 10/17/2021 10:[address] [facility] Ramon Morales MD LAB - POINT OF CARE ORDERABLES [facility] [address] [place] [address], [facility] [phone] * (ABNORMAL) BASIC METABOLIC PANEL (CALCIUM TOTAL) [...] approximately 13% higher for people identified as -[place]. eGFR by MDRD 56(L) > OR = [...] 10.3 mg/dL [facility] Comment: Test Performed at: [facility] [address] [place] [address] PETER HOFFMANN DO,MPH Blood BLOOD SPECIMEN / Unknown 04/12/2021 7:54 AM CDT 04/12/2021 7:54 AM CDT Ramon Morales MD LAB - CHEMISTRY LUIS ENRIQUE SUSHMACALLI Performing Organization Address [facility] de Phone Number [facility] [phone] [place], [place] [id number] * HEPATIC FUNCTION PANEL (04/12/2021 7:54 AM [...] 46 U/L [facility] Comment: Test Performed at: [facility] [address] PETER HOFFMANN DO,MPH Blood BLOOD SPECIMEN / Unknown 04/12/2021 7:54 AM CDT 04/12/2021 7:54 AM CDT Ramon Morales MD LAB - CHEMISTRY LUIS ENRIQUE CELIS Performing Organization Address [facility] de Phone Number [facility] [address] [place] [address] * MAGNESIUM BLOOD (04/12/2021 7:54 AM CDT) Only the most recent of82 resultswithin the time period is included. Magnesium 1.9 1.5 - 2.5 mg/dL [facility] Comment: Test Performed at: [facility] [address] PETER HOFFMANN DO,MPH Blood BLOOD SPECIMEN / Unknown 04/12/2021 7:54 AM CDT 04/12/2021 7:54 AM CDT Ramon Morales MD LAB - CHEMISTRY LUIS ENRIQUE CELIS [facility] Organization Address City/State/ZIP Co de Phone Number [facility] [address] [place] [address] * BONE DENSITY AXIAL SKELETON(1OR MORE SITES)[id number] (11/16/2020 3:21 PM GLASS HANDLER) Anatomical Region Laterality Modality Other 11/16/2020 5:01 PM GLASS HANDLER Addenda Addendum by Jj Mancilla DO on 11/16/2020 5:27 PM GLASS HANDLER ORIGINAL REPORT Examination: Dual energy x-ray absorptiometry [...] ordering physician and is also available on [employer], the Radiology Department's computerized picture archive system. [...] 5:24 PM . Narrative 11/16/2020 5:07 PM GLASS HANDLER Examination: Dual energy x-ray absorptiometry of the [...] ordering physician and is also available on Spe[employer], the Radiology Department's computerized picture archive system. [...] ordering physician and is also available on [employer], the Radiology Department's computerized picture archive system. [...] FACIAL BONES WO CONTRAST (11/16/2020 1:15 PM GLASS HANDLER) Anatomical Region Laterality Modality Head Computed Tomogra phy 11/16/2020 1:18 PM GLASS HANDLER Impressions 11/16/2020 8:11 PM GLASS HANDLER IMPRESSION: 1.No acute intracranial hemorrhage, midline shift, [...] correlate clinically. Dictated by Mayur Victoria DO (residential supervisor) I, Dr. RICO COLEMAN have personally reviewed and interpreted this examination/study. This report was electronically signed by RICO COLEMAN on 11/16/2020 8:11 PM . Narrative 11/16/2020 8:11 PM GLASS HANDLER EXAMINATION: 1. CT OF THE HEAD WITHOUT [...] correlate clinically. Dictated by Mayur Victoria DO (residential supervisor) Dr. RICO Reyes have personally reviewed and interpreted this examination/study. This report was electronically signed by RICO COLEMAN on 11/16/2020 8:11 PM . Teresa Robbyhannah HYDROLOGIC ENGINEER-[facility] CT ORDERABLES * CT HEAD WO CONTRAST (11/16/2020 1:15 PM GLASS HANDLER) Only the most recent of5 resultswithin the time period is included. Anatomical Region Laterality Modality Head Computed Tomogra phy 11/16/2020 1:18 PM GLASS HANDLER Impressions 11/16/2020 8:11 PM GLASS HANDLER IMPRESSION: 1.No acute intracranial hemorrhage, midline shift, [...] correlate clinically. Dictated by Mayur Victoria DO (residential supervisor) Dr. RICO Reyes have personally reviewed and interpreted this examination/study. This report was electronically signed by RICO COLEMAN on 11/16/2020 8:11 PM . Narrative 11/16/2020 8:11 PM GLASS HANDLER EXAMINATION: 1. CT OF THE HEAD WITHOUT [...] correlate clinically. Dictated by Mayur Victoria DO (residential supervisor) IDr. RICO have personally reviewed and interpreted this examination/study. This report was electronically signed by RICO COLEMAN on 11/16/2020 8:11 PM . Teresa W[address] CT ORDERABLES * Laceration Repair (11/16/2020 12:46 PM GLASS HANDLER) Paula Collins MD - 11/16/2020 12:46 PM GLASS HANDLER Teresa Connor APRN-CNP 11/16/2020 6:38 PM Laceration [...] (ABNORMAL) CBC W/O DIFFERENTIAL (08/18/2020 8:22 AM GLASS HANDLER) Only the most recent of22 resultswithin the [...] but greater than 30,000/uL. Test Performed at: [facility] [address] [place] [address] PETER HOFFMANN DO,MPH 08/18/2020 8:22 AM GLASS HANDLER 08/18/2020 8:22 AM GLASS HANDLER Ramon Morales MD LAB - HEMATOLOGY ORD ERABLES [facility] [address] [place] [address] * PATHOLOGY TISSUE (04/04/2020 10:08 AM CDT) Only the most recent of3 resultswithin the time period is included. Case Report Surgical Pathology Report Case: [id number] Authorizing Provider: Ramon Morales MD Collected: 04/04/2020 10:08 AM Ordering Location: [facility] ENDOSCOPY Received: 04/04/2020 12:17 PM Pathologist: Gretchen [...] cassette B1. KK 04/05/2020 6:05 PM CDT [facility] PATHOLOGY LAB Disclaimer The performance characteristics of all immunohistochemical and indirect immunofluorescence stains (if any) cited in this report were determined by the Histopathology Laboratory of [facility]. Some of these tests were developed [...] attending (teaching) pathologist. 04/05/2020 6:05 PM CDT [facility] Embedded Images 04/05/2020 6:05 PM CDT [facility] PATH[facility] Biopsy, NOS (Large Intestine, Right/Ascending [...] Morales MD LAB - PATHOLOGY/CYTO LOGY ORDERABLES [facility] PATHOLOGY LAB [address] [place] [address], [facility] [phone] * ENDOSCOPY, COLON, SCREENING (04/04/2020 9:37 AM [...] and oxygen saturations were monitored continuously. The CF-[id number] was introduced through the anus and advanced to the cecum, identified by appendiceal orifice and ileocecal valve. The colonoscopy was performed without difficulty. The patient tolerated the procedure well. The quality of the bowel preparation was evaluated using the BBPS ([place] Bowel Preparation Scale) with scores of: Right [...] non-shelby portions. Procedure Code(s): --- Professional --- 35358, Colonoscopy, flexible; with removal of tumor(s), polyp(s), or other lesion(s) by snare technique 98285, 59, Colonoscopy, flexible; with biopsy, single or multiple Diagnosis Code(s): --- Professional --- Z12.11, Encounter for screening for malignant neoplasm of colon K63.5, Polyp of colon K62.1, Rectal polyp CPT copyright 2019 [employer]. All rights reserved. The codes documented in this report are preliminary and upon inpatient coder review may be revised to meet current compliance requirements. _ Ramon Morales MD 04/04/2020 10:34:35 AM This report has been signed electronically. Note Initiated On: 04/04/2020 9:37 AM Number of Addenda: 0 [facility] [address] [place], [place] [address] [place] [address] 04/04/2020 9:37 AM CDT Elda Rashid MD GI PROCEDURE ORDERAB LES Performing Organization Address [facility] Co de Phone Number [facility] * (ABNORMAL) GLUCOSE - POINT OF CARE [...] POINT OF CARE ORDERABLES Performing Organization Address City/[facility]/ZIP Co de Phone Number [address] [address], [facility] [phone] * (ABNORMAL) HEMOGLOBIN A1C (03/14/2020 8:46 AM [...] of diabetes for children. Test Performed at: [facility] [address] [place] [address] PETER HOFFMANN DO,MPH 03/14/2020 8:46 AM CDT 03/14/2020 8:47 AM CDT Ramon Morales MD LAB - CHEMISTRY ORDE RABLES Performing Organization Address [facility] Co de Phone Number [facility] [address] [place] [address] * (ABNORMAL) PLATELET ESTIMATION (02/16/2019 8:10 AM CDT) Platelet Estimation DECREASED (A) ADEQUATE [facility] Comment: Test Performed at: [facility] [address] [employer] [address] PETER HOFFMANN DO,MPH 02/16/2019 8:10 AM CDT 02/16/2019 8:15 AM CDT Ramon Morales MD LAB - HEMATOLOGY ORD ERABLES Performing Organization Address [facility] Co de Phone Number [facility] [phone] [place] [address] * ENDOSCOPY, COLON, SCREENING (12/08/2018 8:23 AM [...] malignant neoplasm of colon CPT copyright 2016 [employer]. All rights reserved. The codes documented in this report are preliminary and upon inpatient coder review may be revised to meet current compliance requirements. _ Ramon Morales MD 12/08/2018 9:39:14 AM This report has been signed electronically. Note Initiated On: 12/08/2018 8:23 AM Number of Addenda: 0 [place] [address] [address] [facility] [place], [place] [address] [place] [address] 12/08/2018 8:23 AM CDT Ramon Morales MD GI PROCEDURE ORDERAB LES Performing Organization Address [facility] Co de Phone Number [facility] * PHOSPHORUS BLOOD (11/24/2018 8:24 AM CDT) Only the most recent of66 resultswithin the time period is included. Phosphorus 3.4 2.5 - 4.5 mg/dL [facility] Comment: Test Performed at: [facility] [address] [place] [address] PETER HOFFMANN DO,MPH 11/24/2018 8:24 AM CDT 11/24/2018 8:24 AM CDT Ramon Morales MD LAB - CHEMISTRY LUIS ENRIQUE CELIS Performing Organization Address City/[facility] Co de Phone Number [facility] [address] [place] [address] * SLIDE SCAN HEMATOLOGY (11/10/2018 8:37 AM GLASS HANDLER) Only the most recent of2 resultswithin the time period is included. Pathologist [facility] CBC Morphology NORMAL [facility] Comment: Ovalocytes 1 + Test Performed at: [facility] [address] [place] [address] PETER HOFFMANN DO,MPH 11/10/2018 8:37 AM GLASS HANDLER 11/10/2018 8:37 AM GLASS HANDLER Ramon Morales MD LAB - HEMATOLOGY ORD ERABLES Performing Organization Address [facility] Co de Phone Number [facility] [address] [place] [address] * CYTOMEGALOVIRUS DNA RT PCR QUANT BLOOD (10/13/2018 8:22 AM GLASS HANDLER) Only the most recent of8 resultswithin the time period is included. Pathologist [facility] Source BLOOD [facility] Cytomegalovirus DNA Quantitative Real Time PCR <200 IU/mL [facility] Cytomegalovirus DNA Quantitative PCR <2.30 Log IU/mL [facility] Comment: REFERENCE RANGE: CMV DNA, QN PCR: <200 IU/mL CMV DNA, QN PCR: <2.30 Log IU/mL This test was developed and its analytical performance characteristics have been determined by [facility]. It has not been cleared or approved by the U.S. Food and Drug Administration. This assay has been validated pursuant to the CLIA regulations and is used for clinical purposes. Test Performed at: [facility], [address] [address] Zoltan DE SOUZA Blood BLOOD SPECIMEN / Unknown 10/13/2018 8:22 AM GLASS HANDLER 10/13/2018 8:24 AM GLASS HANDLER Ramon Morales MD LAB - CHEMISTRY ORDE RABCALLI Performing Organization Address City/[facility]/ZIP Co de Phone Number [facility] [address] [place] [address] * ALPHA FETOPROTEIN BLOOD TUMOR (07/07/2018 11:31 AM CDT) Only the most recent of9 resultswithin the time period is included. Pathologist [facility] Alpha-Fetoprotei n Tumor Marker 0.8 <6.1 ng/mL [facility] Comment: This test was performed using the Doug Garcia chemiluminescent method. Values obtained from different assay methods cannot be used interchangeably. AFP levels, regardless of value, should not be interpreted as absolute evidence of the presence or absence of disease. Test Performed at: [place] [address] PETER HOFFMANN DO,MPH 07/07/2018 11:3 1 AM CDT 07/07/2018 11:32 AM CDT Ramon Morales MD LAB - CHEMISTRY ORDSherrill RABCALLI Performing Organization Address [facility] Co de Phone Number [facility] [address] [place] [address] * TSH (04/14/2018 10:26 AM CDT) Only the most recent of2 resultswithin the time period is included. Pathologist [facility] TSH 1.43 0.40 - 4.50 mIU/L [facility] Comment: Test Performed at: [facility] [address] [place] [address] PETER HOFFMANN DO,MPH Blood BLOOD SPECIMEN / Unknown 04/14/2018 10:26 AM CDT 04/14/2018 10:27 AM CDT Sobeida Griffin APRN-HONORIO LAB - CHEMISTRY O RDERABLES Performing Organization Address [facility] Co de Phone Number [facility] [phone] [place] [address] * CYTOMEGALOVIRUS DNA RT-PCR QUANT (03/03/2018 10:05 [...] * * storage. * Test Performed at: [facility] [address] [place] [address] Zoltan DE SOUZA Microbiology BLOOD SPECIMEN / Unknown 03/03/2018 10:05 AM CDT 03/03/2018 10:06 AM CDT Sobeida Griffin HYDROLOGIC ENGINEER-CONTRACT LEAD LAB - MICROBIOLOG Y ORDERABLES [facility] [address] [place] [address] * CT ABDOMEN MULTI PHASE W CONT [...] recommended. Dictated by Ramon Sandoval MD (radiology teacher). I, Dr. ISRAEL CORTÉS M.D. have personally [...] recommended. Dictated by Ramon Sandoval MD (radiology teacher). I, Dr. ISRAEL CORTÉS M.D. have personally [...] CHEM PROFILE (EXTERNAL RESULT ENTRY) (12/12/2017) Pathologist [facility] Glucose (EXTERNAL RESULT) 198(H) mg/dl BUN (EXTERNAL [...] * (ABNORMAL) GLUCOSE ACCUCHECK (11/14/2017 11:15 AM GLASS HANDLER) Only the most recent of129 resultswithin the time period is included. Pathologist [facility] Glucose, Fingerstick 262(H) 70-115mg/d L mg/dL [facility] ([place]) Comment:Supervisor Audit Clerks: KALI DOMINGOY 11/14/2017 11:1 5 AM GLASS HANDLER Janae Diaz MD LAB - CHEMISTRY LUIS ENRIQUE CELIS [facility] Organization Address City/State/ZIP Co de Phone Number [facility] ZULEYKA ([place]) * XR ABDOMEN KUB PORTABLE (11/09/2017 6:39 AM GLASS HANDLER) Only the most recent of5 resultswithin the time period is included. Anatomical Region Laterality Modality Other Impressions 11/09/2017 2:35 PM GLASS HANDLER IMPRESSION: There are multiple mildly dilated small bowel loops measuring up to 4.9 cm in diameter which could represent ileus or obstruction, not significantly changed. The supine radiographs are technically suboptimal for evaluation of pneumoperitoneum. Postsurgical changes of kyphoplasty/vertebroplasty are present inferior lumbar vertebral bodies. Degenerative changes are noted in the spine. Skin staple lines projects over the gafus-ub-uggu. Report dictated by Jenni An MD (radiology teacher). I, Dr. DASHAWN SUE MD have personally reviewed and interpreted this examination/study. This report was electronically signed by DASHAWN SUE MD on 11/09/2017 2:35 PM . Narrative 11/09/2017 2:35 PM GLASS HANDLER EXAMINATION: PX ABDOMEN 1 VW HISTORY: Ileus [...] the spine. Skinstaple lines projects over the nlumu-gw-joat. Report dictated by Jenni An MD (radiology teacher). I, Dr. DASHAWN SUE MD have personally reviewed and interpreted thisexamination/study. This report was electronically signed by DASHAWN SUE MD on 11/09/20172:35 PM . Janae Diaz MD DIAGNOSTIC IMAGING O RDERABLES * (ABNORMAL) PTT [facility] (11/08/2017 2:22 PM GLASS HANDLER) Only the most recent of14 resultswithin the time period is included. APTT 20.3(L) 23.0 - 38.4 Seconds [facility] Comment:Suggested therapeuti c range for full dose I.V. heparin therapy for venous thromboembolism is 66.0-91.0 seconds. Blood specimen (specimen) BLOOD SPECIMEN / Unknown 11/08/2017 2:22 PM GLASS HANDLER 11/08/2017 2:58 PM GLASS HANDLER Narrative [facility] - 11/08/2017 3:37 PM GLASS HANDLER Please ensure that the aPTT specimen is received in the clinical lab within 1 hour of collection if it is used for therapeutic heparin monitoring. Processing of heparinized specimens older than 1 hour may result in inaccurate test results. Is patient on Heparin, Argatroban or Dabigatran?->N Janae Diaz MD LAB - COAGULATION OR DERABLES Performing Organization Address [facility] Co de Phone Number [address] [phone] * CARDIOLIPIN ANTIBODY IGA (11/08/2017 2:22 PM GLASS HANDLER) Anticardiolipin Antibody IgA <15.0 <15.0 APL [facility] Blood specimen (specimen) BLOOD SPECIMEN / Unknown 11/08/2017 2:22 PM GLASS HANDLER 11/08/2017 2:58 PM GLASS HANDLER Janae Diaz MD LAB - SEROLOGY ORDER MAYRA Performing Organization Address [facility] Co de Phone Number [address] [phone] * CARDIOLIPIN ANTIBODY IGM (11/08/2017 2:22 PM GLASS HANDLER) Anticardiolipin Antibody IgM <15.0 <15.0 MPL [facility] Blood specimen (specimen) BLOOD SPECIMEN / Unknown 11/08/2017 2:22 PM GLASS HANDLER 11/08/2017 2:58 PM GLASS HANDLER Janae Diaz MD LAB - SEROLOGY ORDER MAYRA [address] [phone] * CARDIOLIPIN ANTIBODY IGG (11/08/2017 2:22 PM GLASS HANDLER) Anticardiolipin Antibody IgG <15.0 <15.0 GPL [facility] Blood specimen (specimen) BLOOD SPECIMEN / Unknown 11/08/2017 2:22 PM GLASS HANDLER 11/08/2017 2:58 PM GLASS HANDLER Janae Diaz MD LAB - SEROLOGY ORDER MAYRA Performing Organization Address [facility] de Phone Number [address] [phone] * (ABNORMAL) ANTITHROMBIN III ACTIVITY (11/08/2017 2:22 PM GLASS HANDLER) APTT 20.3(L) 23.0 - 38.4 Seconds [facility] Comment:Suggested therapeuti c range for full dose I.V. heparin therapy for venous thromboembolism is 66.0-91.0 seconds. Antithrombin Activity 88 85 - 130 U/dL [facility] Blood specimen (specimen) BLOOD SPECIMEN / Unknown 11/08/2017 2:22 PM GLASS HANDLER 11/08/2017 2:58 PM GLASS HANDLER Narrative [facility] - 11/12/2017 11:19 AM GLASS HANDLER Is patient on Heparin, Argatroban or Dabigatran?->N Janae Diaz MD LAB - COAGULATION OR DERABLES Performing Organization Address City/[facility]/ZIP Co de Phone Number [address] [phone] * (ABNORMAL) PROTEIN C FUNCTIONAL (11/08/2017 2:22 PM GLASS HANDLER) APTT 25.8 23.0 - 38.4 Seconds NEW [...] less than age 18 years. INR 1.1 [facility] Blood specimen (specimen) BLOOD SPECIMEN / Unknown 11/08/2017 2:22 PM GLASS HANDLER 11/08/2017 2:58 PM GLASS HANDLER Narrative [facility] - 11/12/2017 10:53 AM GLASS HANDLER Is the patient on Coumadin?->N Janae Diaz MD LAB - CHEMISTRY ORDE RABLES [address] [phone] * CHRIS VIPER VENOM DILUTE (11/08/2017 2:22 PM GLASS HANDLER) APTT 25.8 23.0 - 38.4 Seconds [facility] PT 13.7 12.1 - 14.8 Seconds [facility] INR 1.1 [facility] LA-DRVVT Screen 0.9 <1.2 [facility] Interpretation Dilute RVV Negative Negative [facility] Blood specimen (specimen) BLOOD SPECIMEN / Unknown 11/08/2017 2:22 PM GLASS HANDLER 11/08/2017 2:58 PM GLASS HANDLER Janae Diaz MD LAB - COAGULATION [place] [address], [facility] [phone] * (ABNORMAL) FACTOR VIII ASSAY (11/08/2017 2:22 PM GLASS HANDLER) Factor VIII Activity 679(H) 45 - 225 [...] BLOOD SPECIMEN / Unknown 11/08/2017 2:22 PM GLASS HANDLER 11/08/2017 2:58 PM GLASS HANDLER Narrative [facility] - 11/11/2017 10:23 AM GLASS HANDLER Is this a pre or post-infusion?->NA Janae Diaz MD LAB - COAGULATION OR DERABLES Performing Organization Address City/State/[facility] Co de Phone Number [address] [phone] * (ABNORMAL) PROTEIN S ACTIVITY (11/08/2017 2:22 PM GLASS HANDLER) APTT 25.8 23.0 - 38.4 Seconds NEW [...] BLOOD SPECIMEN / Unknown 11/08/2017 2:22 PM GLASS HANDLER 11/08/2017 2:58 PM GLASS HANDLER Narrative [facility] - 11/12/2017 10:53 AM GLASS HANDLER Is the patient on Coumadin?->N Janae Diaz MD LAB - COAGULATION OR DERABLES [address] [phone] * HOMOCYSTEINE BLOOD QUANTITATIVE (11/08/2017 2:22 PM GLASS HANDLER) Homocysteine 8.0 4.4 - 16.2 umol/L [facility] Blood specimen (specimen) BLOOD SPECIMEN / Unknown 11/08/2017 2:22 PM GLASS HANDLER 11/08/2017 2:58 PM GLASS HANDLER Janae Diaz MD LAB - CHEMISTRY ORDE RABLES Performing Organization Address City/[facility]/ZIP Co de Phone Number [address] [phone] * (ABNORMAL) TEG CITRATED KAOLIN (CK) (11/08/2017 2:22 PM GLASS HANDLER) Only the most recent of2 resultswithin the time period is included. G-Clot Strength 4.1(L) 4.5 - 11.0 d/sc [facility]OD [facility] Interpretation TEG See Comment [facility] React-Time 2.3(L) 5.0 - 10.0 MIN [facility] K-Time 3.5(H) 1.0 - 3.0 MIN [facility] Angle A-BB 55.4 53.0 - 72.0 Degrees [facility] MA (CK) BB 45.3(L) 50.0 - 70.0 mm [facility] LY30 8.6(H) 0.0 - 8.0 % [facility] CI-Coagulation Index -0.9 -3.0 - 3.0 [facility] Blood specimen (specimen) 11/08/2017 2:22 PM GLASS HANDLER 11/08/2017 2:30 PM GLASS HANDLER Narrative [facility] - 11/08/2017 4:28 PM GLASS HANDLER SEE BELOW TEG Kaolin Sample Type Interpretation [...] MD LAB - BLOOD BANK ORD JULIO [facility] Organization Address City/State/ZIP Co de Phone Number [facility] [address] [place] [address] * LAB MISCELLANEOUS TEST 2 (11/08/2017 2:22 PM GLASS HANDLER) Reference Lab Results SEE SCANNED REPORT [facility] REF LAB NON INTERF Other (qualifier value) 11/08/2017 2:22 PM GLASS HANDLER 11/08/2017 3:27 PM GLASS HANDLER Narrative [facility] REF LAB NON INTERF - 11/13/2017 11:19 AM GLASS HANDLER Test Name:->Protrombin Gene Mutation Reference Lab Info:->U DNA Lab Janae Diaz MD LAB - CHEMISTRY LUIS ENRIQUE CELIS Performing Organization Address [facility]/ZIP Co de Phone Number [facility] REF LAB NON INTERF [address] [place] [address] * LAB MISC TEST (11/08/2017 2:22 PM GLASS HANDLER) Reference Lab Results SEE SCANNED REPORT [facility] REF LAB NON INTERF Other (qualifier value) 11/08/2017 2:22 PM GLASS HANDLER 11/08/2017 3:27 PM GLASS HANDLER Narrative [facility] REF LAB NON INTERF - 11/13/2017 11:18 AM GLASS HANDLER Test Name:->Factor V Leiden Reference Lab Info:->U DNA LAB Janae Diaz MD LAB SEND OUT Performing Organization Address [facility] Co de Phone Number [facility] REF LAB NON INTERF [address] [place] [address] * PATHOLOGY/GENETICS HISTORICAL-ONBASE (11/08/2017) 11/08/2017 Historical Provider LAB - CHEMISTRY O RDERABLES Performing Organization Address [facility]/ZIP Co de Phone Number [facility] [address] * US LIVER TRANSPLANT (11/07/2017 5:34 PM GLASS HANDLER) Only the most recent of2 resultswithin the time period is included. Anatomical Region Laterality Modality Other Impressions 11/08/2017 4:46 PM GLASS HANDLER IMPRESSION: 1. Normal sonographic appearance of the transplant liver. 2. Patent hepatic vasculature. Dictated by Royce Carter MD (radiology teacher). This report was approved by Royce Carter on 11/08/2017 9:47 AM . I, Dr. LESLY FERMIN M.D. have personally reviewed and interpreted this examination/study. This report was electronically signed by LESLY FERMIN M.D. on 11/08/2017 4:46 PM . Narrative 11/08/2017 4:46 PM GLASS HANDLER EXAMINATION: 1. Limited right upper quadrant abdominal [...] vasculature. Dictated by Royce Carter MD (radiology teacher). This report was approved by Royce Carter on 11/08/2017 9:47 AM . I, Dr. LESLY FERMIN M.D. have personally reviewed and interpreted thisexamination/study. This report was electronically signed by LESLY FERMIN M.D. on 11/08/20174:46 PM . Janae Diaz MD US ORDERABLES * NM HEPATOBILIARY WO CCK EF (11/07/2017 1:35 PM GLASS HANDLER) Anatomical Region Laterality Modality Abdomen Other Impressions 11/07/2017 3:02 PM GLASS HANDLER Procedure: Hepatobiliary scan. History: 62-year-old male with elevated bilirubin status post liver transplantation. Technique: 10.23 mCi of [id number] injected IV; dynamic images of the abdomen [...] status post livertransplantation. Technique: 10.23 mCi of [id number] injected IV; dynamic images of theabdomen were [...] Diaz MD NM ORDERABLES * PT-INR [facility] (11/07/2017 5:19 AM GLASS HANDLER) Only the most recent of49 resultswithin the time period is included. PT 13.9 12.1 - 14.8 Seconds [facility] INR 1.1 See Comment [facility] Comment: Suggested therapeutic range for low-intensity coumadin therapy for venous thromboembolism prophylaxis is an INR of 2.0-3.0. For high risk patients (Mitral Valve Prosthesis, Atrial Fibrillation, history of TIA/stroke), suggested prophylactic therapeutic range is an INR of 2.5-3.5. Blood specimen (specimen) BLOOD SPECIMEN / Unknown 11/07/2017 5:19 AM GLASS HANDLER 11/07/2017 5:24 AM GLASS HANDLER Narrative [facility] - 11/07/2017 5:50 AM GLASS HANDLER Is patient on Heparin, Argatroban or Dabigatran?->N Janae Diaz MD LAB - COAGULATION OR DERABLES [address] [phone] * LACTIC ACID BLOOD (11/04/2017 11:38 AM GLASS HANDLER) Only the most recent of5 resultswithin the time period is included. [facility] Lactic Acid-Stat 0.6 0.5 - 2.2 mmol/L [facility] Blood specimen (specimen) BLOOD SPECIMEN / Unknown 11/04/2017 11:38 AM GLASS HANDLER 11/04/2017 11:43 AM GLASS HANDLER Janae Diaz MD LAB - CHEMISTRY ORDE RABLES [address] [phone] * (ABNORMAL) BLOOD GASES ART (11/04/2017 11:38 AM GLASS HANDLER) Only the most recent of10 resultswithin the time period is included. Pathologist [facility] pH Arterial 7.40 7.35 - 7.45 NEW [...] BLOOD SPECIMEN / Unknown 11/04/2017 11:38 AM GLASS HANDLER 11/04/2017 11:43 AM GLASS HANDLER Janae Diaz MD LAB - BLOOD GASES OR DERABLES Performing Organization Address City/[facility]/ZIP Co de Phone Number [address] [phone] * (ABNORMAL) SVO2 FOR RECALIBRATION (11/04/2017 5:25 AM GLASS HANDLER) Pathologist [facility] SVO2 for Recalibration 84.2(H) 66.0 - 77.0 % [facility] Blood specimen (specimen) BLOOD SPECIMEN / Unknown 11/04/2017 5:25 AM GLASS HANDLER 11/04/2017 5:31 AM GLASS HANDLER Janae Diaz MD LAB - CHEMISTRY ORDE RABLES [address] [phone] * (ABNORMAL) FIBRINOGEN ACTIVITY (11/03/2017 9:31 PM GLASS HANDLER) Only the most recent of5 resultswithin the time period is included. Fibrinogen Clauss 127(L) 200 - 400 mg/dL [facility] Blood specimen (specimen) BLOOD SPECIMEN / Unknown 11/03/2017 9:31 PM GLASS HANDLER 11/03/2017 9:36 PM GLASS HANDLER Janae Diaz MD LAB - COAGULATION OR DERABLES [facility] [address] [place] [address] * XR CHEST 1VW PORTABLE (11/03/2017 9:23 PM GLASS HANDLER) Only the most recent of7 resultswithin the time period is included. Anatomical Region Laterality Modality Chest Other Impressions 11/04/2017 1:59 PM GLASS HANDLER IMPRESSION: The endotracheal tube tip superimposes midthoracic trachea. The gastric tube terminates in gastric body. A left internal jugular approach Arboles-Akiko catheter terminates in main pulmonary artery. A drain/catheter traverses the upper abdomen. Lung volumes are small. Mild bibasilar atelectasis are again noted. Left lower lobe opacification may represents pleural effusion with underlying atelectasis/airspace disease. No pneumothorax is identified. The cardiomediastinal silhouette is unchanged. Dictated by Kristyn Calzada MD (radiology teacher). I, Dr. WALTER BACA M.D. have personally reviewed and interpreted this examination/study. This report was electronically signed by WALTER BACA M.D. on 11/04/2017 1:59 PM . Narrative 11/04/2017 1:59 PM GLASS HANDLER EXAMINATION: PX CHEST 1 VW HISTORY: cvc [...] unchanged. Dictated by Kristyn Calzada MD (radiology teacher). I, Dr. WALTER BACA M.D. have personally reviewed and interpreted thisexamination/study. This report was electronically signed by WALTER BACA M.D. on 11/04/20171:59 PM . Janae Diaz MD DIAGNOSTIC IMAGING O RDERABLES * LACTIC ACID WHOLE BLOOD (11/03/2017 7:17 PM GLASS HANDLER) Only the most recent of5 resultswithin the time period is included. Lactic Acid Whole Blood 1.1 0.5 - 3.4 mmol/L [facility] Blood specimen (specimen) BLOOD SPECIMEN / Unknown 11/03/2017 7:17 PM GLASS HANDLER 11/03/2017 7:22 PM GLASS HANDLER Jay Jay Heredia MD LAB - CHEMISTRY LUIS ENRIQUE CELIS Performing Organization Address City/[facility]/ZIP Co de Phone Number [address] [phone] * CHLORIDE WHOLE BLOOD (11/03/2017 7:17 PM GLASS HANDLER) Only the most recent of5 resultswithin the time period is included. Chloride Whole Blood 105 101 - 111 mmol/L [facility] Blood specimen (specimen) BLOOD SPECIMEN / Unknown 11/03/2017 7:17 PM GLASS HANDLER 11/03/2017 7:22 PM GLASS HANDLER Jay Jay Heredia MD LAB - CHEMISTRY LUIS ENRIQUE CELIS [address] [phone] * (ABNORMAL) CALCIUM IONIZED WHOLE BLOOD (11/03/2017 7:17 PM GLASS HANDLER) Only the most recent of5 resultswithin the time period is included. Ionized Calcium Whole Blood 1.05 mmol/L [facility] Adjusted Ionized Calcium 1.07(L) 1.19 - 1.34 mmol/L [facility] pH Whole Blood 7.43 7.35 - 7.45 [facility] Blood specimen (specimen) BLOOD SPECIMEN / Unknown 11/03/2017 7:17 PM GLASS HANDLER 11/03/2017 7:22 PM GLASS HANDLER Jay Jay Heredia MD LAB - CHEMISTRY LUIS ENRIQUE CELIS [address] [phone] * POTASSIUM WHOLE BLD (11/03/2017 7:17 PM GLASS HANDLER) Only the most recent of5 resultswithin the time period is included. Potassium Whole Blood 4.9 3.5 - 5.5 mmol/L [facility] Blood specimen (specimen) BLOOD SPECIMEN / Unknown 11/03/2017 7:17 PM GLASS HANDLER 11/03/2017 7:22 PM GLASS HANDLER Jay Jay Heredia MD LAB - CHEMISTRY LUIS ENRIQUE CELIS Performing Organization Address [facility]/ZIP [place] [address], [facility] [phone] * (ABNORMAL) SODIUM WHOLE BLOOD (11/03/2017 7:17 PM GLASS HANDLER) Only the most recent of5 resultswithin the time period is included. Sodium Whole Blood 132(L) 135 - 145 mmol/L [facility] Blood specimen (specimen) BLOOD SPECIMEN / Unknown 11/03/2017 7:17 PM GLASS HANDLER 11/03/2017 7:22 PM GLASS HANDLER Jay Jay Heredia MD LAB - CHEMISTRY LUIS ENRIQUE CELIS Performing Organization Address City/[facility]/ZIP Co de Phone Number [address] [phone] * (ABNORMAL) GLUCOSE WHOLE BLOOD (11/03/2017 7:17 PM GLASS HANDLER) Only the most recent of5 resultswithin the time period is included. Glucose Whole Blood 250(H) 70 - 110 mg/dL [facility] Blood specimen (specimen) BLOOD SPECIMEN / Unknown 11/03/2017 7:17 PM GLASS HANDLER 11/03/2017 7:22 PM GLASS HANDLER Jay Jay Heredia MD LAB - CHEMISTRY LUIS ENRIQUE CELIS [facility] Organization Address City/State/ZIP Co de Phone Number [facility] [address] [place] [address] * (ABNORMAL) BLOOD GASES ART COMPLETE [facility] OR (11/03/2017 6:20 PM GLASS HANDLER) Only the most recent of3 resultswithin the [...] HOSPITAL Blood specimen (specimen) 11/03/2017 6:20 PM GLASS HANDLER 11/03/2017 6:20 PM GLASS HANDLER Janae Diaz MD LAB - BLOOD GASES OR DERABLES Performing Organization Address [facility]/ZIP Co de Phone Number [address] [phone] * (ABNORMAL) URINALYSIS W/MICROSCOPIC NO CULTURE (11/03/2017 3:30 AM GLASS HANDLER) Only the most recent of2 resultswithin the time period is included. Color UA Lala(A) Straw, Yellow, Colorless, Light Yellow [facility] Clarity UA Clear Clear [facility] Specific [place] UA 1.023 1.001 - 1.030 [facility] [...] Casts UA 1 0 - 2 /[facility] Urine specimen (specimen) 11/03/2017 3:30 AM GLASS HANDLER 11/03/2017 3:30 AM GLASS HANDLER Janae Diaz MD LAB - URINALYSIS ORD ERABLES Performing Organization Address [facility]/ZIP Co de Phone Number [address] [phone] * DRUG ABUSE PANEL 10-20+ETHANOL URINE NO CONFIRM (11/03/2017 3:30 AM GLASS HANDLER) Only the most recent of3 resultswithin the [...] (specimen) URINE / Unknown 11/03/2017 3:30 AM GLASS HANDLER 11/03/2017 3:30 AM GLASS HANDLER Narrative [facility] - 11/03/2017 3:52 AM GLASS HANDLER The Urine Toxicology Screening Panel does not screen for Propoxyphene, Meprobamate, Carisoprodol, Trazodone, stdu-mhv-jzdraec medications and/or volatiles (Acetone, Isopropanol, Methanol or Ethylene Glycol). Ethanol, Salicylate, Acetaminophen, Tricyclic Antidepressants and several therapeutic drugs may be individually assayed in serum or plasma specimen. Toxicology testing by the [facility] is an aid to medical diagnosis and treatment of patients. No documented chain of custody was maintained. Results are intended to be used for clinical purposes only. Janae Diaz MD LAB - URINE CHEMISTR Y ORDERABLES [address] [phone] * TYPE + SCREEN PANEL (11/02/2017 9:16 PM GLASS HANDLER) Only the most recent of5 resultswithin the time period is included. Typem A POS [facility] Antibody Screen NEG [facility] Blood specimen (specimen) 11/02/2017 9:16 PM GLASS HANDLER 11/02/2017 9:32 PM GLASS HANDLER Janae Diaz MD LAB - BLOOD BANK ORD ERABLES [facility] [address] * CROSSMATCH RBC LEUKOREDUCED (11/02/2017 9:16 PM GLASS HANDLER) Only the most recent of3 resultswithin the time period is included. Unit RBC-WBCD [id number] returned [facility] BLOOD [facility] PRODUCTS (BEAKER) Unit RBC-WBCD [id number] returned [facility] BLOOD BANK PRODUCTS (BEAKER) 11/02/2017 9:16 PM GLASS HANDLER 11/02/2017 9:33 PM GLASS HANDLER Narrative H BLOOD BANK PRODUCTS (BEAKER) - 11/02/2017 9:16 PM GLASS HANDLER # of Units->2 Janae Diaz MD LAB - BLOOD BANK ORD EmberBLES [facility] BLOOD BANK PRODUCTS (BEAKER) * PREPARE FFP UNIT(S) (11/02/2017 9:16 PM GLASS HANDLER) Unit FFP [id number] transfused [facility] PRODUCTS (BEAKER) Unit ABO AB [facility] (BEAKER) Unit Rh POS [facility] (BEAKER) Unit Number [id number] [facility] (BEAKER) Unit Status Transfused [facility] BLO OD BANK PRODUCTS (BEAKER) Unit FFP [id number] transfused [facility] (BEAKER) Unit ABO AB [facility] (BEAKER) Unit Rh POS [facility] (BEAKER) Unit Number [id number] [facility] (BEAKER) Unit Status Transfused [facility] BLO OD BANK PRODUCTS (BEAKER) Unit FFP [id number] returned [facility] (BEAKER) Unit FFP [id number] returned [facility] (BEAKER) Unit FFP [id number] returned [facility] (BEAKER) Unit FFP [id number] returned [facility] (BEAKER) 11/02/2017 9:16 PM GLASS HANDLER 11/02/2017 9:33 PM GLASS HANDLER Narrative [facility]LOOD [facility] PRODUCTS ([facility]) - 11/02/2017 9:16 PM GLASS HANDLER # of Units->6 Janae Diaz MD LAB - BLOOD BANK ORD ERABLES [facility] BLOOD [facility] PRODUCTS ([facility]) * HLA XM SEROLOGIC DONOR (11/02/2017 3:17 PM GLASS HANDLER) XM B Donor ID [id number] [facility] ([facility]) XM B Relation Donor [facility] ([facility]) XM Test Date 11/04/2017 [facility] ([facility]) XM T Tyson Neg S [place] [facility] ([facility]) XM B Serum Date 11/02/2017 [facility] ([facility]) Comment: This test was developed and its performance characteristics determined bythe [facility]. It has not been cleared or approved by theU.S. Food and Drug Administration. The FDA has determined that suchclearance or approval is not necessary. This test is used for clinicalpurposes. It should not be regarded as investigational or for research.This laboratory is certified under the Clinical Laboratory ImprovementAmendments of 1988 (CLIA-88) as qualified to perform high complexityclinical laboratory testing. CLIA ID# [id number] at: [facility], [address] @ [place] [address]Bgc Director: Andrew Jones MD, XM B Tyson Neg S [place] [facility] ([facility]) XM T [facility] Neg [facility] ([facility]) XM B [facility] Neg [facility] ([facility]) Blood specimen (specimen) BLOOD SPECIMEN / Unknown 11/02/2017 3:17 PM GLASS HANDLER 11/04/2017 3:17 PM GLASS HANDLER Janae Diaz MD LAB - BLOOD BANK ORD ERABLES [facility] ([facility]) [address] [phone], [place] * EKG 12-LEAD (11/02/2017 12:00 AM GLASS HANDLER) Only the most recent of3 resultswithin the time period is included. Pathologist [facility] RADIOLOGY Comment: Exam Date/Time: Nov 02 [...] leads Confirmed by Cristhian Chavira, LGeronimo ([id number]), food editor PATRICIA STERLING ([id number]) on 11/06/2017 12:15:11 PM Referred By: REFERRING NO Confirmed By:Aniya Chavira M.D. 11/02/2017 Janae Diaz MD ECG ORDERABLES Performing Organization Address City/[facility]/ZIP Co de Phone Number [facility] RADIOLOG[facility] * BLOOD TYPE ABO+ RH PANEL (08/06/2017 12:00 PM GLASS HANDLER) Only the most recent of2 resultswithin the time period is included. Pathologist [facility] Typem A POS [facility] LAB Blood specimen (specimen) BLOOD SPECIMEN / Unknown 08/06/2017 12:00 PM GLASS HANDLER 08/06/2017 12:30 PM GLASS HANDLER Tino Santiago MD LAB - BLOOD BANK ORD ERABLES Performing Organization Address City/[facility]/ZIP Co de Phone Number [facility] [address] * (ABNORMAL) URINALYSIS REFLEX TO MICROSCOPIC NO CULTURE (08/06/2017 11:43 AM GLASS HANDLER) Only the most recent of2 resultswithin the time period is included. Pathologist [facility] Color UA Lala(A) Straw, Yellow, Colorless, Light Yellow [facility] Clarity UA Clear Clear [facility] Specific [place] UA 1.023 1.001 - 1.030 [place] [...] Casts UA 1 0 - 2 /LPF [facility] Urine specimen (specimen) URINE SPECIMEN OBTAINED BY CLEAN CATCH PROCEDURE / Unknown 08/06/2017 11:43 AM GLASS HANDLER 08/06/2017 12:23 PM GLASS HANDLER Tino Santiago MD LAB - URINALYSIS ORD ERABLES [address] [phone] * QUANTIFERON TB-GOLD INC (08/06/2017 11:43 AM GLASS HANDLER) Only the most recent of2 resultswithin the time period is included. QuantiFERON TB Gold Negative Negative [facility] ([facility]) Comment: The specimen received for QuantiFERON testing was incubated by the ordering institution. Specific procedures outlined in our Directory of Services and in the package insert for the QuantiFERON Gold (In Tube) test must be followed to enable for proper stimulation of cells for the production of interferon gamma. QuantiFERON Criteria Comment [facility] ([facility]) Comment: To be considered positive a [...] values. QuantiFERON TB Antigen Value 0.11 IU/mL [facility] ([facility]) QuantiFERON Nil Value 0.37 IU/mL [facility] ([facility]) QuantiFERON Mitogen Value 5.08 IU/mL [facility] ([facility]) QFT TB Ag minus Nil Value <0.00 IU/mL [facility] ([facility]) Interpretation Comment [facility] ([facility]) Comment: The QuantiFERON TB Gold (in [...] BLOOD SPECIMEN / Unknown 08/06/2017 11:43 AM GLASS HANDLER 08/06/2017 12:27 PM GLASS HANDLER Narrative [facility] ([facility]) - 08/11/2017 5:07 PM GLASS HANDLER Performed at: [address] [id number] Eyelet Row Marker: Tio Segal PhD, Phone: [phone] Tino Santiago MD LAB - SEROLOGY ORDER [facility] ([facility]) [address] [place] [address], [facility] * CANCER ANTIGEN (CA) 19-9 (08/06/2017 11:43 AM GLASS HANDLER) Only the most recent of2 resultswithin the time period is included. CA 19-9 22.830 <35.000 U/mL [facility] Comment: CA 19-9 values will vary depending on testing procedure used. Results are not comparable across different methods. CA 19-9 values obtained in [facility] using a Tulio Lyn Immunoassay. Blood specimen (specimen) BLOOD SPECIMEN / Unknown 08/06/2017 11:43 AM GLASS HANDLER 08/06/2017 12:26 PM GLASS HANDLER Tino Santiago MD LAB - CHEMISTRY ORDE [facility] Performing Organization Address City/[facility]/ZIP Co de Phone Number [facility] [address] [phone] * NICOTINE + METABOLITES BLOOD (08/06/2017 11:43 AM GLASS HANDLER) Only the most recent of2 resultswithin the time period is included. Pathologist [facility] Nicotine None Detected ng/mL [facility] ([facility]) Comment: Nicotine levels greater than 2.0 are consistent with the use of tobacco or tobacco cessation products. Cotinine None Detected ng/mL [facility] ([facility]) Comment: Cotinine levels greater than 20.0 are consistent with the use of tobacco or tobacco cessation products. Blood specimen (specimen) BLOOD SPECIMEN / Unknown 08/06/2017 11:43 AM GLASS HANDLER 08/06/2017 12:26 PM GLASS HANDLER Narrative [facility] ([facility]) - 08/09/2017 9:17 AM GLASS HANDLER Performed at: [address] [place] [id number] Eyelet Row Marker: Peter Treadwell MD, Phone: [phone] Tino Santiago MD LAB - CHEMISTRY LUIS ENRIQUE CELIS Performing Organization Address [facility] Co de Phone Number [facility] ([facility]) [address] [place] [address] * HIV-1 HIV-2 ANTIGEN/ANTIBODY (08/06/2017 11:43 AM GLASS HANDLER) Only the most recent of2 resultswithin the time period is included. [facility] HIV Antigen/Antibod y 1 & 2 Non-reacti ve Non-react rosendo [facility] Comment: Neither HIV-1 p24 Antigen nor HIV-1/HIV-2 Antibodies are detected. Blood specimen (specimen) BLOOD SPECIMEN / Unknown 08/06/2017 11:43 AM GLASS HANDLER 08/06/2017 12:24 PM GLASS HANDLER Tino Santiago MD LAB - HEMATOLOGY CARRI KIM Performing Organization Address City/[facility]/ZIP Co de Phone Number [facility] [place] [address], [facility] [phone] * PSA FREE + TOTAL PANEL (08/06/2017 11:43 AM GLASS HANDLER) Only the most recent of2 resultswithin the [...] BLOOD SPECIMEN / Unknown 08/06/2017 11:43 AM GLASS HANDLER 08/06/2017 12:24 PM GLASS HANDLER Tino Santiago MD LAB - CHEMISTRY LUIS ENRIQUE CELIS [address] [phone] * RPR (08/06/2017 11:43 AM GLASS HANDLER) Only the most recent of2 resultswithin the time period is included. RPR Non-reacti ve Non-reacti ve [facility] Blood specimen (specimen) BLOOD SPECIMEN / Unknown 08/06/2017 11:43 AM GLASS HANDLER 08/06/2017 12:24 PM GLASS HANDLER Tino Santiago MD LAB - CHEMISTRY LUIS ENRIQUE CELIS Performing Organization Address City/[facility]/ZIP Co de Phone Number [address] [phone] * RUBEOLA ANTIBODY IGG (08/06/2017 11:43 AM GLASS HANDLER) Only the most recent of2 resultswithin the time period is included. Measles (Rubeola) Antibody IgG >300.0 Immune >29.9 AU/mL [facility] Comment: Negative <25.0 Equivocal 25.0 - 29.9 Positive >29.9 Presence of antibodies to Rubeola is presumptive evidence of immunity except when acute infection is suspected. Blood specimen (specimen) BLOOD SPECIMEN / Unknown 08/06/2017 11:43 AM GLASS HANDLER 08/06/2017 12:26 PM GLASS HANDLER Narrative [facility] - 08/07/2017 3:18 PM GLASS HANDLER Performed at: [address] [place] [id number] Eyelet Row Marker: Tio Segal PhD, Phone: [phone] Tino Santiago MD LAB - CHEMISTRY LUIS ENRIQUE CELIS Performing Organization Address [facility] de Phone Number [address] * VARICELLA ZOSTER ANTIBODY IGG (08/06/2017 11:43 AM GLASS HANDLER) [facility] Varicella zoster Virus Antibody IgG >4000 Immune >165 index [facility] Comment: Negative <135 Equivocal 135 - 165 Positive >165 A positive result generally indicates exposure to the pathogen or administration of specific immunoglobulins, but it is not indication of active infection or stage of disease. Blood specimen (specimen) BLOOD SPECIMEN / Unknown 08/06/2017 11:43 AM GLASS HANDLER 08/06/2017 12:26 PM GLASS HANDLER Narrative [facility] - 08/07/2017 3:18 PM GLASS HANDLER Performed at: [address] [place] [id number] Eyelet Row Marker: Tio Segal PhD, Phone: [phone] Tino Santiago MD LAB - CHEMISTRY LUIS ENRIQUE CELIS Performing Organization Address [facility] de Phone Number [address] * (ABNORMAL) TRANSFERRIN (08/06/2017 11:43 AM GLASS HANDLER) Only the most recent of3 resultswithin the time period is included. [facility] Transferrin 161(L) 174 - 382 mg/dL [facility] Transferrin Saturation % 80(H) 16 - 50 % [facility] Blood specimen (specimen) BLOOD SPECIMEN / Unknown 08/06/2017 11:43 AM GLASS HANDLER 08/06/2017 12:24 PM GLASS HANDLER Tino Santiago MD LAB - CHEMISTRY LUIS ENRIQUE CELIS Performing Organization Address [facility]/ZIP Co de Phone Number [facility] [address] [phone] * RUBELLA ANTIBODY IGG (08/06/2017 11:43 AM GLASS HANDLER) Only the most recent of2 resultswithin the time period is included. [facility] Rubella Antibody IgG Quantitative >33.00 Immune >0.99 index [facility] Comment: Non-immune <0.90 Equivocal 0.90 - 0.99 Immune >0.99 Blood specimen (specimen) BLOOD SPECIMEN / Unknown 08/06/2017 11:43 AM GLASS HANDLER 08/06/2017 12:24 PM GLASS HANDLER Narrative [facility] - 08/07/2017 3:10 AM GLASS HANDLER Performed at: [address] [place] [id number] Eyelet Row Marker: Tio Segal PhD, Phone: [phone] Tino Santiago MD LAB - SEROLOGY ORDER MAYRA Performing Organization Address [facility] Co de Phone Number [facility] [address] [place] [address] * HEPATITIS B CORE ANTIBODY (08/06/2017 11:43 AM GLASS HANDLER) Only the most recent of3 resultswithin the time period is included. [facility] HBc Antibody Total Non-reacti ve Non-reacti ve [facility] Blood specimen (specimen) BLOOD SPECIMEN / Unknown 08/06/2017 11:43 AM GLASS HANDLER 08/06/2017 12:24 PM GLASS HANDLER Tino Santiago MD LAB - CHEMISTRY LUIS ENRIQUE CELIS Performing Organization Address City/[facility]/[place] [address], [facility] [phone] * ALCOHOL ETHYL BLOOD (08/06/2017 11:43 AM GLASS HANDLER) Only the most recent of3 resultswithin the time period is included. [facility] Interpretation Ethanol None Detected None Detected mg/dL [facility] Comment:Ethanol levels less than 10 mg/dL are resulted as None detected . Blood specimen (specimen) BLOOD SPECIMEN / Unknown 08/06/2017 11:43 AM GLASS HANDLER 08/06/2017 12:24 PM GLASS HANDLER Tino Santiago MD LAB - CHEMISTRY LUIS ENRIQUE CELIS [address] [phone] * (ABNORMAL) FERRITIN (08/06/2017 11:43 AM GLASS HANDLER) Only the most recent of3 resultswithin the time period is included. Pathologist [facility] Ferritin 323(H) 22 - 275 ng/mL [facility] Blood specimen (specimen) BLOOD SPECIMEN / Unknown 08/06/2017 11:43 AM GLASS HANDLER 08/06/2017 12:24 PM GLASS HANDLER Tino Santiago MD LAB - CHEMISTRY LUIS ENRIQUE CELIS Performing Organization Address [facility] Co de Phone Number [address] [phone] * CYTOMEGALOVIRUS ANTIBODY IGG BLOOD (08/06/2017 11:43 AM GLASS HANDLER) Only the most recent of2 resultswithin the time period is included. Pathologist [facility] Cytomegalovirus Antibody IgG <0.60 0.00 - 0.59 U/mL [facility] Comment: Negative <0.60 Equivocal 0.60 - 0.69 Positive >0.69 Blood specimen (specimen) BLOOD SPECIMEN / Unknown 08/06/2017 11:43 AM GLASS HANDLER 08/06/2017 12:24 PM GLASS HANDLER Narrative [facility] - 08/08/2017 5:12 AM GLASS HANDLER Performed at: [address] [place] [address] [address] [place], [place] [id number] Eyelet Row Marker: Tio Segal PhD, Phone: [phone] Tino Santiago MD LAB - CHEMISTRY LUIS ENRIQUE CELIS Performing Organization Address City/[facility]/ZIP Co de Phone Number [facility] [address] * MUMPS ANTIBODY IGG (08/06/2017 11:43 AM GLASS HANDLER) Only the most recent of2 resultswithin the time period is included. Pathologist [facility] Mumps Virus Antibody IgG >300.0 Immune >10.9 AU/mL [facility] Comment: Negative <9.0 Equivocal 9.0 - 10.9 Positive >10.9 A positive result generally indicates past exposure to Mumps virus or previous vaccination. Blood specimen (specimen) BLOOD SPECIMEN / Unknown 08/06/2017 11:43 AM GLASS HANDLER 08/06/2017 12:25 PM GLASS HANDLER Narrative [facility] - 08/07/2017 3:18 PM GLASS HANDLER Performed at: - [facility] [address] [place], [place] [id number] Eyelet Row Marker: Tio Segal PhD, Phone: [phone] Tino Santiago MD LAB - CHEMISTRY LUIS ENRIQUE CELIS [facility] Organization Address City/State/ZIP Co de Phone Number [facility] [address] * (ABNORMAL) ÁNGEL-VOGEL VIRUS ANTIBODY TO VCA IGG (08/06/2017 11:43 AM GLASS HANDLER) Only the most recent of2 resultswithin the time period is included. [facility] Ángel-Vogel Virus Antibody To Viral Capsid Antigen IgG >750.0(H) 0.0 - 21.9 U/mL [employer] [facility] ([facility]) Comment: INTERPRETIVE INFORMATION: Ángel-Vogel Virus Antibody to Viral Capsid Antigen, IgG 17.9 U/mL or less.......Not Detected 18.0-21.9 U/mL..........Indeterminate - Repeat testing in 10-14 days may be helpful. 22.0 U/mL or greater....Detected Interpretive information regarding serologic features of EBV-associated diseases is available at [email or web address]. Performed by [employer], [address] [place] [address],[place] [address] [email or web address], Yoandy Martinez MD, Lab. Director Blood specimen (specimen) BLOOD SPECIMEN / Unknown 08/06/2017 11:43 AM GLASS HANDLER 08/06/2017 12:26 PM GLASS HANDLER Tino Santiago MD LAB - CHEMISTRY LUIS ENRIQUE CELIS [facility] ([facility]) [address] [place] [address], [facility] * HEPATITIS B SURFACE ANTIGEN W RFLX CONFIRMATION (08/06/2017 11:43 AM GLASS HANDLER) Only the most recent of2 resultswithin the time period is included. Hepatitis B Virus Surface Antigen Screen Negative Negative [facility] Blood specimen (specimen) BLOOD SPECIMEN / Unknown 08/06/2017 11:43 AM GLASS HANDLER 08/06/2017 12:24 PM GLASS HANDLER Narrative [facility] - 08/07/2017 5:14 AM GLASS HANDLER Performed at: - [facility] [address] [place], [place] [id number] Eyelet Row Marker: Tio Segal PhD, Phone: [phone] Tino Santiago MD LAB - CHEMISTRY LUIS ENRIQUE CELIS Performing Organization Address [facility] Co de Phone Number [facility] [address] [place] [address] * XR PANOREX (08/06/2017 11:29 AM GLASS HANDLER) Only the most recent of2 resultswithin the time period is included. Anatomical Region Laterality Modality Head Other Impressions 08/07/2017 3:16 PM GLASS HANDLER IMPRESSION: No evidence of periapical abscess. Dictated by Vivek Butler MD (radiology teacher). I, Dr. WALTER BACA M.D. have personally reviewed and interpreted this examination/study. This report was electronically signed by WALTER BACA M.D. on 08/07/2017 3:16 PM . Narrative 08/07/2017 3:16 PM GLASS HANDLER EXAMINATION: [employer] HISTORY: pre liver eval FINDINGS: [...] abscess. Dictated by Vivek Butler MD (radiology teacher). I, Dr. WALTER BACA M.D. have personally reviewed and interpreted thisexamination/study. This report was electronically signed by WALTER BACA M.D. on 08/07/20173:16 PM . Tino Santiago MD DIAGNOSTIC IMAGING O RDERABLES * ECHO STRESS TEST W DOBUTAMINE (08/06/2017 12:00 AM GLASS HANDLER) Only the most recent of2 resultswithin the time period is included. Anatomical Region Laterality Modality Other 08/06/2017 Tino Santiago MD ECHOCARDIOGRAPHY RAD IANT * ECHO STRESS COLOR FLOW AND DOPPLER (08/06/2017 12:00 AM GLASS HANDLER) Only the most recent of2 resultswithin the [...] artery (beyond 3rd order) and angiogram. 7. [place] embolization of the segment 7 branch of [...] draped in the usual sterile fashion. A song and dance performer film of the abdomen was obtained, which [...] documented. Following a series of exchanges, a 5-Kyrgyz vascular sheath was placed. The celiac artery (1st order) was catheterized with a 5 Kyr[place]z Sos Omni-2 catheter and angiogram was obtained. The angiogram demonstrated a normal hepatic branching pattern. An attempt was made to catheterize the common hepatic artery with a 2.0 [place] Progreat microcatheter but was unsuccessful. Therefore, the Sos Omni 2 catheter was exchanged for a 4 [place] Cobra catheter and advanced into the proper [...] was sent to and analyzed at the [employer] work station. The study demonstrated nodular arterial enhancement in hepatic segment 7 at the dome superomedial to the ablation cavity. The right hepatic artery (beyond 3rd order) was then catheterized with a coaxially advanced 2.0 [place] Progreat microcatheter and angiogram was obtained. The [...] hepaticartery (beyond 3rd order) and angiogram. 7. [place] embolization of the segment 7 branch of [...] draped in the usual sterile fashion. A song and dance performer film of the abdomen was obtained, which [...] (1st order) was catheterized with a 5 Kyr[place] Sos Omni- 2catheter and angiogram was obtained. The angiogram demonstrated a normalhepatic branching pattern. An attempt was made to catheterize the commonhepatic artery with a 2.0 [place] Progreat microcatheter but was unsuccessful. Therefore, the Sos Omni 2catheter was exchanged for a 4 [place] Cobra catheter and advanced into theproper hepatic artery. Angiogram was performed with the catheter in theproper hepatic artery which showed antegrade flow in the right and left hepatic arteries. No definite tumorblush was identified. 3D Felicia CT was obtained following the injection of contrast with thecatheter in the proper hepatic artery. The data was sent to and analyzedat the [employer] work station. The study demonstrated nodular arterialenhancement in hepatic segment 7 at the dome superomedial to the ablation cavity. The right hepatic artery (beyond 3rd order) was then catheterized with acoaxially advanced 2.0 [place] Progreat microcatheter and angiogram wasobtained. The angiogram again demonstrated antegrade flow in branchvessels; the segment 7 branches were identified. The segment 7 branch of the right hepatic artery (beyond 3rd order) wasthen catheterized with the microcatheter and angiogram was obtained, whichshowed blood flow to the region of tumor identified on Felicia CT. This was then followed by embolization of the segment 7 branch [id number] micron Embospheres to near stasis. Post-embolization angiogram [...] artery (beyond 3rd order) and angiogram. 7. [place] embolization of the segment 7 branch of [...] draped in the usual sterile fashion. A song and dance performer film of the abdomen was obtained, which [...] documented. Following a series of exchanges, a 5-Kyrgyz vascular sheath was placed. The celiac artery (1st order) was catheterized with a 5 [place] Sos Omni-2 catheter and angiogram was obtained. The angiogram demonstrated a normal hepatic branching pattern. An attempt was made to catheterize the common hepatic artery with a 2.0 [place] Progreat microcatheter but was unsuccessful. Therefore, the Sos Omni 2 catheter was exchanged for a 4 [place] Cobra catheter and advanced into the proper [...] was sent to and analyzed at the [employer] work station. The study demonstrated nodular arterial enhancement in hepatic segment 7 at the dome superomedial to the ablation cavity. The right hepatic artery (beyond 3rd order) was then catheterized with a coaxially advanced 2.0 K[place] Progreat microcatheter and angiogram was obtained. The [...] Physician 2. Dr. Cronin, IR Fellow 3. [facility], Medical Student Anesthesia: 1. Local anesthesia [...] hepaticartery (beyond 3rd order) and angiogram. 7. [place] embolization of the segment 7 branch of [...] draped in the usual sterile fashion. A song and dance performer film of the abdomen was obtained, which [...] (1st order) was catheterized with a 5 Kyr[place] Sos Omni- 2catheter and angiogram was obtained. The angiogram demonstrated a normalhepatic branching pattern. An attempt was made to catheterize the commonhepatic artery with a 2.0 [place] Progreat microcatheter but was unsuccessful. Therefore, the Sos Omni 2catheter was exchanged for a 4 [place] Cobra catheter and advanced into theproper hepatic artery. Angiogram was performed with the catheter in theproper hepatic artery which showed antegrade flow in the right and left hepatic arteries. No definite tumorblush was identified. 3D Felicia CT was obtained following the injection of contrast with thecatheter in the proper hepatic artery. The data was sent to and analyzedat the [employer] work station. The study demonstrated nodular arterialenhancement in hepatic segment 7 at the dome superomedial to the ablation cavity. The right hepatic artery (beyond 3rd order) was then catheterized with acoaxially advanced 2.0 [place] Progreat microcatheter and angiogram wasobtained. The angiogram again demonstrated antegrade flow in branchvessels; the segment 7 branches were identified. The segment 7 branch of the right hepatic artery (beyond 3rd order) wasthen catheterized with the microcatheter and angiogram was obtained, whichshowed blood flow to the region of tumor identified on Felicia CT. This was then followed by embolization of the segment 7 branch [id number] micron Embospheres to near stasis. Post-embolization angiogram [...] artery (beyond 3rd order) and angiogram. 7. [place] embolization of the segment 7 branch of [...] draped in the usual sterile fashion. A song and dance performer film of the abdomen was obtained, which [...] documented. Following a series of exchanges, a 5-Kyrgyz vascular sheath was placed. The celiac artery (1st order) was catheterized with a 5 Kyr[place]z Sos Omni-2 catheter and angiogram was obtained. The angiogram demonstrated a normal hepatic branching pattern. An attempt was made to catheterize the common hepatic artery with a 2.0 [place] Progreat microcatheter but was unsuccessful. Therefore, the Sos Omni 2 catheter was exchanged for a 4 [place] Cobra catheter and advanced into the proper [...] was sent to and analyzed at the [employer] work station. The study demonstrated nodular arterial enhancement in hepatic segment 7 at the dome superomedial to the ablation cavity. The right hepatic artery (beyond 3rd order) was then catheterized with a coaxially advanced 2.0 [place] Progreat microcatheter and angiogram was obtained. The [...] Physician 2. Dr. Cronin, IR Fellow 3. [facility], Medical Student Anesthesia: 1. Local anesthesia [...] hepaticartery (beyond 3rd order) and angiogram. 7. [place] embolization of the segment 7 branch of [...] draped in the usual sterile fashion. A song and dance performer film of the abdomen was obtained, which [...] (1st order) was catheterized with a 5 [place] Sos Omni- 2catheter and angiogram was obtained. The angiogram demonstrated a normalhepatic branching pattern. An attempt was made to catheterize the commonhepatic artery with a 2.0 [place] Progreat microcatheter but was unsuccessful. Therefore, the Sos Omni 2catheter was exchanged for a 4 [place] Cobra catheter and advanced into theproper hepatic artery. Angiogram was performed with the catheter in theproper hepatic artery which showed antegrade flow in the right and left hepatic arteries. No definite tumorblush was identified. 3D Felicia CT was obtained following the injection of contrast with thecatheter in the proper hepatic artery. The data was sent to and analyzedat the [employer] work station. The study demonstrated nodular arterialenhancement in hepatic segment 7 at the dome superomedial to the ablation cavity. The right hepatic artery (beyond 3rd order) was then catheterized with acoaxially advanced 2.0 [place] Progreat microcatheter and angiogram wasobtained. The angiogram again demonstrated antegrade flow in branchvessels; the segment 7 branches were identified. The segment 7 branch of the right hepatic artery (beyond 3rd order) wasthen catheterized with the microcatheter and angiogram was obtained, whichshowed blood flow to the region of tumor identified on Felicia CT. This was then followed by embolization of the segment 7 branch [id number] micron Embospheres to near stasis. Post-embolization angiogram ofthe segment 7 branch showed satisfactory stasis. A sheath angiogram of the right common femoral artery was unremarkablewith femoral access away from the profunda. Hemostasis was achieved withan Angioseal closure device. A sterile dressing was applied. The patient tolerated the procedure well and [facility]. There were [...] sedationflowsheet. This report was approved by Dang Cronni M.D. on 07/02/2017 3:43PM . Dr. JONY [...] artery (beyond 3rd order) and angiogram. 7. [place] embolization of the segment 7 branch of [...] draped in the usual sterile fashion. A song and dance performer film of the abdomen was obtained, which [...] documented. Following a series of exchanges, a 5-Kyrgyz vascular sheath was placed. The celiac artery (1st order) was catheterized with a 5 Kyrgyz Sos Omni-2 catheter and angiogram was obtained. The angiogram demonstrated a normal hepatic branching pattern. An attempt was made to catheterize the common hepatic artery with a 2.0 Kyrgyz Progreat microcatheter but was unsuccessful. Therefore, the Sos Omni 2 catheter was exchanged for a 4 Kyrgyz Cobra catheter and advanced into the proper [...] was sent to and analyzed at the [employer] work station. The study demonstrated nodular arterial enhancement in hepatic segment 7 at the dome superomedial to the ablation cavity. The right hepatic artery (beyond 3rd order) was then catheterized with a coaxially advanced 2.0 Kyrgyz Progreat microcatheter and angiogram was obtained. The [...] hepaticartery (beyond 3rd order) and angiogram. 7. [place] embolization of the segment 7 branch of [...] draped in the usual sterile fashion. A song and dance performer film of the abdomen was obtained, which [...] (1st order) was catheterized with a 5 Kyrgyz Sos Omni- 2catheter and angiogram was obtained. The angiogram demonstrated a normalhepatic branching pattern. An attempt was made to catheterize the commonhepatic artery with a 2.0 Kyrgyz Progreat microcatheter but was unsuccessful. Therefore, the Sos Omni 2catheter was exchanged for a 4 Kyrgy[place] Cobra catheter and advanced into theproper hepatic artery. Angiogram was performed with the catheter in theproper hepatic artery which showed antegrade flow in the right and left hepatic arteries. No definite tumorblush was identified. 3D Felicia CT was obtained following the injection of contrast with thecatheter in the proper hepatic artery. The data was sent to and analyzedat the [employer] work station. The study demonstrated nodular arterialenhancement in hepatic segment 7 at the dome superomedial to the ablation cavity. The right hepatic artery (beyond 3rd order) was then catheterized with acoaxially advanced 2.0 Kyrgy[place] Progreat microcatheter and angiogram wasobtained. The angiogram again demonstrated antegrade flow in branchvessels; the segment 7 branches were identified. The segment 7 branch of the right hepatic artery (beyond 3rd order) wasthen catheterized with the microcatheter and angiogram was obtained, whichshowed blood flow to the region of tumor identified on Felicia CT. This was then followed by embolization of the segment 7 branch [id number] micron Embospheres to near stasis. Post-embolization angiogram ofthe segment 7 branch showed satisfactory stasis. A sheath angiogram of the right common femoral artery was unremarkablewith femoral access away from the profunda. Hemostasis was achieved withan Angioseal closure device. A sterile dressing was applied. The patient tolerated the procedure well and [facility]. There were [...] artery (beyond 3rd order) and angiogram. 7. [place] embolization of the segment 7 branch of [...] draped in the usual sterile fashion. A song and dance performer film of the abdomen was obtained, which [...] documented. Following a series of exchanges, a 5-Kyrgyz vascular sheath was placed. The celiac artery (1st order) was catheterized with a 5 Kyrgyz Sos Omni-2 catheter and angiogram was obtained. The angiogram demonstrated a normal hepatic branching pattern. An attempt was made to catheterize the common hepatic artery with a 2.0 Kyrgyz Progreat microcatheter but was unsuccessful. Therefore, the Sos Omni 2 catheter was exchanged for a 4 Kyrgyz Cobra catheter and advanced into the proper [...] was sent to and analyzed at the [employer] work station. The study demonstrated nodular arterial enhancement in hepatic segment 7 at the dome superomedial to the ablation cavity. The right hepatic artery (beyond 3rd order) was then catheterized with a coaxially advanced 2.0 Kyrgyz Progreat microcatheter and angiogram was obtained. The [...] hepaticartery (beyond 3rd order) and angiogram. 7. [place] embolization of the segment 7 branch of [...] draped in the usual sterile fashion. A song and dance performer film of the abdomen was obtained, which [...] (1st order) was catheterized with a 5 Kyrgyz Sos Omni- 2catheter and angiogram was obtained. The angiogram demonstrated a normalhepatic branching pattern. An attempt was made to catheterize the commonhepatic artery with a 2.0 Kyrgyz Progreat microcatheter but was unsuccessful. Therefore, the Sos Omni 2catheter was exchanged for a 4 Kyrgy[place] Cobra catheter and advanced into theproper hepatic artery. Angiogram was performed with the catheter in theproper hepatic artery which showed antegrade flow in the right and left hepatic arteries. No definite tumorblush was identified. 3D Felicia CT was obtained following the injection of contrast with thecatheter in the proper hepatic artery. The data was sent to and analyzedat the [employer] work station. The study demonstrated nodular arterialenhancement in hepatic segment 7 at the dome superomedial to the ablation cavity. The right hepatic artery (beyond 3rd order) was then catheterized with acoaxially advanced 2.0 Kyrgyz Progreat microcatheter and angiogram wasobtained. The angiogram again demonstrated antegrade flow in branchvessels; the segment 7 branches were identified. The segment 7 branch of the right hepatic artery (beyond 3rd order) wasthen catheterized with the microcatheter and angiogram was obtained, whichshowed blood flow to the region of tumor identified on Felicia CT. This was then followed by embolization of the segment 7 branch [id number] micron Embospheres to near stasis. Post-embolization angiogram ofthe segment 7 branch showed satisfactory stasis. A sheath angiogram of the right common femoral artery was unremarkablewith femoral access away from the profunda. Hemostasis was achieved withan Angioseal closure device. A sterile dressing was applied. The patient tolerated the procedure well and [facility]. There were [...] artery (beyond 3rd order) and angiogram. 7. [place] embolization of the segment 7 branch of [...] draped in the usual sterile fashion. A song and dance performer film of the abdomen was obtained, which [...] documented. Following a series of exchanges, a 5-Kyrgyz vascular sheath was placed. The celiac artery (1st order) was catheterized with a 5 Kyrgyz Sos Omni-2 catheter and angiogram was obtained. The angiogram demonstrated a normal hepatic branching pattern. An attempt was made to catheterize the common hepatic artery with a 2.0 Kyrgyz Progreat microcatheter but was unsuccessful. Therefore, the Sos Omni 2 catheter was exchanged for a 4 Kyrgyz Cobra catheter and advanced into the proper [...] was sent to and analyzed at the [employer] work station. The study demonstrated nodular arterial enhancement in hepatic segment 7 at the dome superomedial to the ablation cavity. The right hepatic artery (beyond 3rd order) was then catheterized with a coaxially advanced 2.0 Kyrgyz Progreat microcatheter and angiogram was obtained. The [...] hepaticartery (beyond 3rd order) and angiogram. 7. [place] embolization of the segment 7 branch of [...] draped in the usual sterile fashion. A song and dance performer film of the abdomen was obtained, which [...] (1st order) was catheterized with a 5 Kyrgyz Sos Omni- 2catheter and angiogram was obtained. The angiogram demonstrated a normalhepatic branching pattern. An attempt was made to catheterize the commonhepatic artery with a 2.0 Kyrgyz Progreat microcatheter but was unsuccessful. Therefore, the Sos Omni 2catheter was exchanged for a 4 Kyrgy[place] Cobra catheter and advanced into theproper hepatic artery. Angiogram was performed with the catheter in theproper hepatic artery which showed antegrade flow in the right and left hepatic arteries. No definite tumorblush was identified. 3D Felicia CT was obtained following the injection of contrast with thecatheter in the proper hepatic artery. The data was sent to and analyzedat the [employer] work station. The study demonstrated nodular arterialenhancement in hepatic segment 7 at the dome superomedial to the ablation cavity. The right hepatic artery (beyond 3rd order) was then catheterized with acoaxially advanced 2.0 Kyrgyz Progreat microcatheter and angiogram wasobtained. The angiogram again demonstrated antegrade flow in branchvessels; the segment 7 branches were identified. The segment 7 branch of the right hepatic artery (beyond 3rd order) wasthen catheterized with the microcatheter and angiogram was obtained, whichshowed blood flow to the region of tumor identified on Felicia CT. This was then followed by embolization of the segment 7 branch [id number] micron Embospheres to near stasis. Post-embolization angiogram [...] thisexamination/study. This report was electronically signed by oHrace MICHAEL M.D. on06/20/2017 1:24 PM . Janae [...] * CREATININE BLOOD - POCT (IP) [facility] (05/30/2017) Only the most recent of2 resultswithin the time period is included. Creatinine POCT 0.85 0.3 - 1.3 mg/dL [facility] eGFR POCT 60 60 ml/min [facility] 05/30/2017 Jony Garcia MD LAB - POINT OF CARE ORDERABLES [facility] * CT PARENCHYMAL TISSUE ABLATION (03/06/2017 [...] by the injection with 1% Lidocaine. A NM 15 probe (3 -4 cm ablation zone) [...] provided by the injection with 1%Lidocaine. A NM 15 probe (3 -4 cm ablation zone) [...] by the injection with 1% Lidocaine. A NM 15 probe (3 -4 cm ablation zone) [...] provided by the injection with 1%Lidocaine. A NM 15 probe (3 -4 cm ablation zone) [...] time period is included. Unit Platelet Pheresis [id number] transfused [facility] BLOOD BANK PRODUCTS (BEAKER) Unit ABO B [facility] (BEAKER) Unit Rh POS [facility] (BEAKER) Unit Number [id number] [facility] (BEAKER) Unit Status Transfused [facility] BLO OD [facility]ANK [facility] (BEAKER) Irradiated Platelet [id number] transfused [facility] (BEAKER) Unit ABO O [facility] (BEAKER) Unit Rh POS [facility]LO[facility] (BEAKER) Unit Number [id number] [facility] (BEAKER) Unit Status Transfused [facility] BLO OD BANK PRODUCTS (BEAKER) 03/06/2017 9:13 AM CDT 03/06/2017 9:21 AM CDT Narrative [facility] BLOOD BANK PRODUCTS (BEAKER) - 03/06/2017 9:13 AM CDT # of Units->2 [place] Lilly Asst LAB - BLO OD BANK ORDERABLES Performing Organization Address City/[facility]/ZIP Co de Phone Number [facility] BLOOD BANK PRODUCTS (BEAKER) * CULTURE AEROBIC (10/06/2016 12:07 AM GLASS HANDLER) Culture Aerobic No Growth at 1 week [facility] Gram Stain Many Red Blood Cells [facility] Gram Stain No Organism Seen [facility] Fluid specimen (specimen) 10/06/2016 12:07 AM GLASS HANDLER 10/06/2016 12:57 AM GLASS HANDLER [facility] - 10/13/2016 2:58 PM GLASS HANDLER Peritoneal fluid Specimen Type->Body Fluid Gram Stains are routinely screened for the presence of Polymorphonuclear Cells. Jerrell Brown MD LAB - MICROBIOLOGY O RDERABLES Performing Organization Address [facility]/ZIP Co de Phone Number [address] [phone] * CULTURE ANAEROBE (10/06/2016 12:07 AM GLASS HANDLER) Culture Anaerobic No Growth at 1 week [facility] Fluid specimen (specimen) 10/06/2016 12:07 AM GLASS HANDLER 10/06/2016 12:57 AM GLASS HANDLER [facility] - 10/15/2016 11:21 AM GLASS HANDLER Peritoneal fluid Specimen Type->Body Fluid Jererll Brown MD LAB - MICROBIOLOGY O RDERABLES Performing Organization Address [facility]/ZIP Co de Phone Number [address] [phone] * CT ABDOMEN PELVIS W CONTRAST (10/05/2016 6:34 PM GLASS HANDLER) Anatomical Region Laterality Modality Abdomen, Pelvis Other Impressions 10/06/2016 12:07 PM GLASS HANDLER IMPRESSION: 1. Indirect right inguinal hernia containing [...] hours. Dictated by Vivek Butler MD (radiology teacher). I, Dr. LESLY FERMIN M.D. have personally reviewed and interpreted this examination/study. This report was electronically signed by LESLY FERMIN M.D. on 10/06/2016 12:07 PM . Narrative 10/06/2016 12:07 PM GLASS HANDLER EXAMINATION: Computed tomography (CT) of the abdomen [...] the [facility] exam [facility] [place] [facility] performed 09/19/2016. The gallbladder is [...] hours. Dictated by Vivek Butler MD (radiology teacher). I, Dr. LESLY FERMIN M.D. have personally reviewed and interpreted thisexamination/study. This report was electronically signed by LESLY FERMIN M.D. on10/06/2016 12:07 PM . Piper Renner MD CT ORDERABLES * PURPLE TOP TUBE EXTRA (10/05/2016 5:17 PM GLASS HANDLER) Extra Tube hold [facility] Blood specimen (specimen) BLOOD SPECIMEN / Unknown 10/05/2016 5:17 PM GLASS HANDLER 10/05/2016 5:22 PM GLASS HANDLER Piper Renner MD LAB - CHEMISTRY [facility] [address] [phone] * LIPASE BLOOD (09/12/2016 1:16 AM GLASS HANDLER) Only the most recent of2 resultswithin the time period is included. Lipase 13 8 - 78 Units/L [facility] Blood specimen (specimen) BLOOD SPECIMEN / Unknown 09/12/2016 1:16 AM GLASS HANDLER 09/12/2016 1:22 AM GLASS HANDLER Demetrice Prado MD LAB - CHEMISTRY [facility] Performing Organization Address City/[facility]/[place] [address], [facility] [phone] * XR LUMBAR SPINE 2 OR 3VW (08/28/2016 1:16 PM GLASS HANDLER) Only the most recent of2 resultswithin the time period is included. Anatomical Region Laterality Modality Spine Other Impressions 08/28/2016 3:32 PM GLASS HANDLER IMPRESSION: 1. Redemonstration of an L1 compression fracture with interval progression of anterior height loss, now greater than 50 percent. 2. Multilevel degenerative changes. This report was electronically signed by DASHAWN SUE MD on 08/28/2016 3:32 PM . Narrative 08/28/2016 3:32 PM GLASS HANDLER Exam: XR SPINE LUMBAR 2 OR 3 [...] DOPPLER AND COLOR FLOW (08/22/2016 12:00 AM GLASS HANDLER) Anatomical Region Laterality Modality Other 08/22/2016 Mele Nevarez MD ECHOCARDIOGRAPHY RAD IANT * CT ANGIO BRAIN AND NECK (08/02/2016 12:18 PM GLASS HANDLER) Anatomical Region Laterality Modality Head Other Impressions 08/03/2016 10:18 AM GLASS HANDLER IMPRESSION: 1. No acute intracranial hemorrhage. 2. No large arterial occlusions or significant stenoses identified in the head or neck. I, Dr. STEVE ACOSTA M.D. have personally reviewed and interpreted this examination/study. This report was electronically signed by STEVE ACOSTA M.D. on 08/03/2016 10:18 AM . Narrative 08/03/2016 10:18 AM GLASS HANDLER EXAMINATION: 1. Computed tomography (CT) of the [...] * XR CHEST 2VW (08/02/2016 11:49 AM GLASS HANDLER) Anatomical Region Laterality Modality Chest Other Impressions 08/02/2016 4:55 PM GLASS HANDLER Impression: Bibasilar atelectasis, right greater than left, with small left pleural effusion. This report has been dictated by Ramiro Ribera M.D. (Resident). Dr. LESLY Reyes M.D. have personally reviewed and interpreted this examination/study. This report was electronically signed by LESLY FERMIN M.D. on 08/02/2016 4:55 PM . Narrative 08/02/2016 4:55 PM GLASS HANDLER Exam: XR CHEST PA AND LATERAL. Date: [...] RDERABLES * TROPONIN I (08/02/2016 10:25 AM GLASS HANDLER) Pathologist [facility] Troponin I <0.010 <0.032 ng/mL [facility] Blood specimen (specimen) BLOOD SPECIMEN / Unknown 08/02/2016 10:25 AM GLASS HANDLER 08/02/2016 10:33 AM GLASS HANDLER Paula Cuevas MD LAB - CHEMISTRY [facility] [address] [phone] * CK + CKMB PANEL (08/02/2016 10:25 AM GLASS HANDLER) Pathologist [facility] CK Total 72 30 - 200 Units/L [facility] CK-MB 2.0 0.0 - 6.6 ng/mL [facility] Blood specimen (specimen) BLOOD SPECIMEN / Unknown 08/02/2016 10:25 AM GLASS HANDLER 08/02/2016 10:33 AM GLASS HANDLER Paula Cuevas MD LAB - CHEMISTRY [facility] [address] [phone] * AMMONIA (08/02/2016 10:25 AM GLASS HANDLER) Only the most recent of4 resultswithin the time period is included. Ammonia 43 11 - 64 umol/L [facility] Blood specimen (specimen) BLOOD SPECIMEN / Unknown 08/02/2016 10:25 AM GLASS HANDLER 08/02/2016 10:33 AM GLASS HANDLER Paula Cuevas MD LAB - CHEMISTRY [facility] [address] [phone] * CCL CATH LEFT HEART ARTERY GRAFT (07/30/2016 8:26 AM GLASS HANDLER) Anatomical Region Laterality Modality X-Ray Angiograph y Narrative 07/30/2016 9:22 AM GLASS HANDLER [facility] Cardiac Catheterization Procedure Note Patient: Robert Harrell Age: 60 y.o. Date of : 1955 Date of Admission: 07/30/16 Procedure Date: 07/30/16 FELLOW / GAS ENGINE OPERATOR: Jaleel Trinidad MD; Jj Thomas MD ATTENDING [...] occlusion. Coronary angiography was performed using 6Fr Marsland catheter. Left heart catheterization was performed using 6Fr Marsland catheter. At the conclusion of the procedure, [...] Procedure Note James Terrell MD - 02/14/2018 [facility] Cardiac Catheterization Procedure Note Patient: Robert Harrell Age: 60 y.o. Date of : 1955 Date of Admission: 07/30/16 Procedure Date: 07/30/16 FELLOW / GAS ENGINE OPERATOR: Jaleel Trinidad MD; Jj Thomas MD ATTENDING [...] orocclusion. Coronary angiography was performed using 6Fr Marsland catheter.Left heart catheterization was performed using 6Fr Marsland catheter. At theconclusion of the procedure, hemostasis [...] MD 07/30/2016/9:29 AM Jerrell Brown MD CARDIAC EXCELLENCE CONSULTANT RAD IANT * CT LIVER 3 PHASE W PELVIS (07/17/2016 10:49 AM GLASS HANDLER) Anatomical Region Laterality Modality Abdomen Other Impressions 07/17/2016 5:17 PM GLASS HANDLER IMPRESSION: 1. Arterially enhancing observation with washout [...] hernia. Dictated by Wilber Hall MD (radiology teacher) This report was approved by Mele Hall on 07/17/2016 5:09 PM . I, Dr. LESLY FERMIN M.D. have personally reviewed and interpreted this examination/study. This report was electronically signed by LESLY FERMIN M.D. on 07/17/2016 5:17 PM . Narrative 07/17/2016 5:17 PM GLASS HANDLER EXAMINATION: Computed tomography (CT) of the abdomen [...] inguinal hernia. Dictated by Wilber Rafael, MD (radiology teacher) This report was approved by Mele Hall on 07/17/2016 5:09 PM . I, Dr. LESLY FERMIN M.D. have personally reviewed and interpreted thisexamination/study. This report was electronically signed by LESLY FERMIN M.D. on07/17/2016 5:17 PM . Ramon Morales MD CT ORDERABLES * ALPHA FETOPROTEIN + AFP-L3 (07/09/2016 9:35 AM CDT) Alpha-Fetoprotein 2.1 1.6 - 4.5 ng/mL [facility]) Gfwsd-Bkysgmnxtbd-P 3 SEE NOTE 0.5 - 9.9 % [facility]) Comment: NO VALUE DETERMINED The micro-total analysis system ([employer]) employs microchip capillary electrophoresis to quantitatively measure AFP and AFP-L3% by immunochemical techniques. The assay principle involves DNA-coupled antibodies and dye labeled antibodies, which react with proteins in liquid phase within the microchannels. Both analytes are quantified using laser-induced fluorescence. Instrument and associated reagents are supplied by [employer] [place], [place], [place]. Patients with elevated AFP-L3% values (>=10%) [...] can potentially cause an anomalous result. The [employer] System has been formulated to minimize the [...] HEPARIN, ARGATROBAN OR DABIGATRAN?->N Test Performed at: [employer] [address] [place] [address] REBECCA CHRISTIANSEN MD PHD Blood specimen (specimen) BLOOD SPECIMEN / Unknown 07/09/2016 9:35 AM CDT 07/09/2016 9:36 AM CDT Ramon Morales MD LAB - CHEMISTRY [facility] Organization Address City/State/ZIP Co de Phone Number [facility] ([facility]) * (ABNORMAL) BLOOD GASES ART - [...] AM CDT 06/19/2016 11:46 AM CDT Narrative [facility] - 06/19/2016 11:47 AM CDT Room air (21%)->Yes FiO2->20.9 Liters/minute->0 Tino Santiago MD LAB - BLOOD GASES OR DERABLES Performing Organization Address [facility] Co de Phone Number [address] [phone] * MITOCHONDRIAL ANTIBODY SCREEN (06/19/2016 7:19 AM [...] CHEMISTRY [facility] Performing Organization Address [facility] Co de Phone Number [address] [phone] * (ABNORMAL) HEPATITIS A ANTIBODY (06/19/2016 7:19 AM CDT) Hepatitis A Virus Antibody Total Positive(A ) Negative [facility] (BEAKER) Blood specimen (specimen) 06/19/2016 7:19 AM CDT 06/19/2016 8:40 AM CDT Narrative [facility] (BEAKER) - 06/20/2016 6:16 AM CDT Performed at: [address] [place] [address] [id number] Eyelet Row Marker: Tio Segal PhD, Phone: [phone] Jerrell Brown MD LAB - CHEMISTRY [facility] (EVIN) * CUPOY-1-AINKKHPVXRF BLOOD PHENOTYPING PANEL (03/26/2016 8:53 AM CDT) Comjg-0-Yftkpdxxi in Phenotype SEE NOTE [facility]) Comment: THIS PATIENT'S ZCNVY-6-AJJQGTTJUCK 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 90% of normal individuals have the MM phenotype, with normal quantitative AAT levels. Many phenotypic patterns have been described, including deficiency states with F, S, Z, or other alleles. As a general estimation, compared to M allele of 100% of normal M-5-Esfctiauijr protein, the S allele produces approximately 60% and the Z allele 20%. For example, an MS phenotype would have about 80% of normal J-6-Kzjyxavpvwr protein level, a 50% contribution from the M allele and 30% from the S allele. A ZZ phenotype would have about 20% of normal levels, a 10% contribution from each Z gene. The F allele has normal V-7-Xgqlkkrydyp levels, but the kinetics of elastase inhibition [...] phenotype. REPORT COMMENT: FASTING:YES Test Performed at: [employer]/[facility] [address] [place] [address] REBECCA CHRISTIANSEN MD PHD 03/26/2016 8:53 AM CDT 03/26/2016 8:53 AM CDT Ramon Morales MD LAB - CHEMISTRY [facility] Performing Organization Address City/[facility]/ZIP Co de Phone Number [facility] ([facility]) * (ABNORMAL) COPPER URINE (09/15/2015 1:16 PM GLASS HANDLER) Copper Urine 13 Not Estab. ug/L [facility] ([facility]) Comment:Detection Limit = 1 Creatinine Urine 0.73 0.30 - 3.00 g/L [facility] ([facility]) Comment:Detection Limit = 0. 10 Copper/Creatini ne Ratio 18 0 - 49 ug/g creat [facility] ([facility]) Copper 24 Hour Urine 0(L) 3 - 35 ug/24 hr [facility] [facility]) Urine specimen (specimen) (Urine, unspecified source) 09/15/2015 1:16 PM GLASS HANDLER 09/15/2015 2:04 PM GLASS HANDLER Narrative [facility] ([facility]) - 09/20/2015 6:14 AM GLASS HANDLER 24 Hour Urine for Copper. Performed at: [address] [place] [address] [id number] Eyelet Row Marker: Peter Treadwell MD, Phone: [phone] Naomi You MD LAB - URINE CHEMISTR Y ORDERABLES Performing Organization Address [facility] Co de Phone Number [facility] ([facility]) * (ABNORMAL) COPPER BLOOD (09/15/2015 12:02 AM GLASS HANDLER) Copper 53(L) 72 - 166 ug/dL [facility] ([facility]) Comment:Detection Limit = 5 Blood specimen (specimen) BLOOD SPECIMEN / Unknown 09/15/2015 12:02 AM GLASS HANDLER 09/15/2015 12:06 AM GLASS HANDLER Narrative [facility] ([facility]) - 09/17/2015 6:14 AM GLASS HANDLER Performed at: [address] [place] [address] [id number] Eyelet Row Marker: Peter Treadwell MD, Phone: [phone] Naomi You MD LAB - CHEMISTRY LUIS ENRIQUE CELIS Performing Organization Address City/[facility]/ZIP Co de Phone Number [facility]) * CORTISOL BLOOD AM (09/14/2015 4:58 AM GLASS HANDLER) Pathologist [facility] Cortisol AM 6.5 3.7 - 19.4 mcg/dL [facility] Blood specimen (specimen) BLOOD SPECIMEN / Unknown 09/14/2015 4:58 AM GLASS HANDLER 09/14/2015 5:04 AM GLASS HANDLER Naomi You MD LAB - CHEMISTRY LUIS ENRIQUE CELIS [address] [phone] * HEPATITIS B VIRUS DNA QUANT PCR (09/14/2015 12:14 AM GLASS HANDLER) [facility] Hepatitis B Virus IU/mL Comment IU/mL [facility]) Comment:HBV DNA not detected Hepatitis B Virus DNA (Log IU/mL) TNP [id number]/mL [facility]) Comment: Unable to calculate result since non-numeric result obtained for component test. Test Information Comment [facility]) Comment:The reportable range for this assay is 20 to 170,000,000 IU/mL 09/14/2015 12:1 4 AM GLASS HANDLER 09/14/2015 12:23 AM GLASS HANDLER Narrative [facility]) - 09/17/2015 5:08 PM GLASS HANDLER Performed at: [address] [place] [address] [id number] Eyelet Row Marker: Peter Treadwell MD, Phone: [phone] Naomi You MD LAB - SEROLOGY KAREL MAYRA Performing Organization Address City/[facility]/ZIP Co de Phone Number [facility]) * HEMOCHROMATOSIS MUTATION PANEL (09/14/2015 12:14 AM GLASS HANDLER) [facility] Hemochromatosis Genotype Specimen: 3 ml Peripheral Blood Reference: [id number] Test: Hemochromatosis Genotyping RESULT Hemochromatosis Genotyping C282Y [...] determined by the DNA Diagnostic Laboratory at [facility]. It has not been cleared or approved [...] complexity clinical laboratory testing. Test performed at [facility], [address] [place] [address] This case has been personally reviewed and interpreted by the attending (teaching) pathologist. Final Diagnosis performed by Evelyn Santamaria MD. Electronically signed 09/15/2015 [facility] ([place]) Blood specimen (specimen) BLOOD SPECIMEN / Unknown 09/14/2015 12:14 AM GLASS HANDLER 09/14/2015 12:21 AM GLASS HANDLER Naomi You MD LAB - CHEMISTRY LUIS ENRIQUE CELIS [facility] ([place]) * (ABNORMAL) CERULOPLASMIN (09/14/2015 12:14 AM GLASS HANDLER) Ceruloplasmin 16(L) 20 - 60 mg/dL [facility] Blood specimen (specimen) BLOOD SPECIMEN / Unknown 09/14/2015 12:14 AM GLASS HANDLER 09/14/2015 12:23 AM GLASS HANDLER Naomi You MD LAB - CHEMISTRY LUIS ENRIQUE CELIS Performing Organization Address City/[facility]/ZIP Co de Phone Number [address] [phone] * OGUBD-[id number] BLOOD (09/14/2015 12:14 AM GLASS HANDLER) Only the most recent of2 resultswithin the time period is included. Riyjj-0-Oyvzaa ypsin 119 90 - 200 mg/dL [facility] Blood specimen (specimen) BLOOD SPECIMEN / Unknown 09/14/2015 12:14 AM GLASS HANDLER 09/14/2015 12:23 AM GLASS HANDLER Naomi You MD LAB - CHEMISTRY LUIS ENRIQUE CELIS Performing Organization Address [facility] Co de Phone Number [address] [phone] * IRON BLOOD (09/14/2015 12:14 AM GLASS HANDLER) Iron 92 50 - 175 mcg/dL [facility] Blood specimen (specimen) BLOOD SPECIMEN / Unknown 09/14/2015 12:14 AM GLASS HANDLER 09/14/2015 12:23 AM GLASS HANDLER Naomi You MD LAB - CHEMISTRY LUIS ENRIQUE CELIS Performing Organization Address [facility]/ZIP Co de Phone Number [address] [phone] * OSMOLALITY URINE (09/12/2015 4:50 PM GLASS HANDLER) Only the most recent of2 resultswithin the time period is included. Osmolality Urine 693 500 - 800 mOsm/kg [facility] Urine specimen (specimen) URINE SPECIMEN OBTAINED BY CLEAN CATCH PROCEDURE / Unknown 09/12/2015 4:50 PM GLASS HANDLER 09/12/2015 4:58 PM GLASS HANDLER Duran Wilhelm MD LAB - URINE CHEMISTR Y ORDERABLES Performing Organization Address [facility] Co de Phone Number [address] [phone] * URIC ACID BLOOD (09/12/2015 1:35 PM GLASS HANDLER) Uric Acid 4.3 2.6 - 7.2 mg/dL [facility] Blood specimen (specimen) BLOOD SPECIMEN / Unknown 09/12/2015 1:35 PM GLASS HANDLER 09/12/2015 1:51 PM GLASS HANDLER Duran Wilhelm MD LAB - CHEMISTRY ORDE LALITA Performing Organization Address [facility] Co de Phone Number [address] [phone] * CORTISOL BLOOD PM (09/12/2015 1:35 PM GLASS HANDLER) Cortisol PM 11.4 2.9 - 17.3 mcg/dL [facility] Blood specimen (specimen) BLOOD SPECIMEN / Unknown 09/12/2015 1:35 PM GLASS HANDLER 09/12/2015 3:00 PM GLASS HANDLER Naomi You MD LAB - CHEMISTRY LUIS ENRIQUE CELIS Performing Organization Address [facility] Co de Phone Number [address] [phone] * US ABDOMEN LIMITED (09/12/2015 12:12 PM GLASS HANDLER) Anatomical Region Laterality Modality Abdomen Other Impressions 09/13/2015 3:01 PM GLASS HANDLER IMPRESSION: 1. Hepatic cirrhosis. No discrete hepatic [...] 5:47 PM . Narrative 09/13/2015 3:01 PM GLASS HANDLER EXAMINATION: 1. Limited abdominal sonogram 2. Color [...] * (ABNORMAL) OSMOLALITY BLOOD (09/11/2015 11:45 PM GLASS HANDLER) Only the most recent of2 resultswithin the time period is included. Osmolality 269(L) 270 - 300 mOsm/kg [facility] Blood specimen (specimen) BLOOD SPECIMEN / Unknown 09/11/2015 11:45 PM GLASS HANDLER 09/12/2015 12:11 AM GLASS HANDLER Scott Lee MD LAB - CHEMISTRY ORDE RABLES Performing Organization Address [facility]/ZIP Co de Phone Number [address] [phone] * SODIUM URINE RANDOM (09/11/2015 9:47 PM GLASS HANDLER) Sodium Urine 49 Not Established mmol/L [facility] Urine specimen (specimen) URINE / Unknown 09/11/2015 9:47 PM GLASS HANDLER 09/11/2015 9:47 PM GLASS HANDLER Scott Lee MD LAB - URINE CHEMISTR Y ORDERABLES Performing Organization Address [facility] Co de Phone Number [address] [phone] * UREA NITROGEN URINE RANDOM (09/11/2015 9:47 PM GLASS HANDLER) Urea Nitrogen Random Urine 776 Not Established mg/dL [facility] Urine specimen (specimen) URINE / Unknown 09/11/2015 9:47 PM GLASS HANDLER 09/11/2015 9:47 PM GLASS HANDLER Scott Lee MD LAB - URINE CHEMISTR Y ORDERABLES Performing Organization Address [facility] Co de Phone Number [address] [phone] * CREATININE URINE RANDOM (09/11/2015 9:47 PM GLASS HANDLER) Creatinine Urine 131 Not Established mg/dL [facility] Comment:Result obtained by prema zepeda. Urine specimen (specimen) URINE / Unknown 09/11/2015 9:47 PM GLASS HANDLER 09/11/2015 9:47 PM GLASS HANDLER Scott Lee MD LAB - URINE CHEMISTR Y ORDERABLES Performing Organization Address [facility] Co de Phone Number [address] [phone] * CULTURE URINE (09/11/2015 9:37 PM GLASS HANDLER) Culture Urine No Growth of >=100 CFU/ml after 48 Hours [facility] Urine specimen (specimen) URINE / Unknown 09/11/2015 9:37 PM GLASS HANDLER 09/11/2015 9:46 PM GLASS HANDLER Narrative [facility] - 09/14/2015 11:59 AM GLASS HANDLER Specimen Type->Urine Scott Lee MD LAB - MICROBIOLOGY O RDERABLES Performing Organization Address [facility] Co de Phone Number [address] [phone] * (ABNORMAL) JARROD BLOOD SCREEN (09/11/2015 10:47 AM GLASS HANDLER) JARROD Positive(A ) None Detected [facility] Venous blood specimen (specimen) 09/11/2015 10:47 AM GLASS HANDLER 09/11/2015 10:52 AM GLASS HANDLER Scott Lee MD LAB - CHEMISTRY ORDE RABLES Performing Organization Address [facility] Co de Phone Number [address] [phone] * JARROD BLOOD SCREEN W/REFLEX TITER (09/11/2015 10:47 AM GLASS HANDLER) JARROD IFA Negative [facility] (BEAKER) Comment: Negative <1:80 Borderline 1:80 Positive >1:80 Venous blood specimen (specimen) BLOOD SPECIMEN / Unknown 09/11/2015 10:47 AM GLASS HANDLER 09/12/2015 11:43 AM GLASS HANDLER Narrative [facility] (EVIN) - 09/13/2015 5:11 PM GLASS HANDLER Performed at: [address] [id number] Eyelet Row Marker: Tio Segal PhD, Phone: [phone] Scott Lee MD LAB - CHEMISTRY LUIS ENRIQUE CELIS Performing Organization Address City/[facility]/ZIP Co de Phone Number [facility] * SMOOTH MUSCLE ANTIBODY (09/11/2015 10:46 AM GLASS HANDLER) F-Actin Antibody IgG 17.9 0.0 - 19.9 Units [facility] Comment: F-Actin Antibody Numeric Result Interpretation: <20.0 Units: Negative 20.0 - 30.0 Units: Weak Positive >30.0 Units: Moderate to Strong Positive Blood specimen (specimen) BLOOD SPECIMEN / Unknown 09/11/2015 10:46 AM GLASS HANDLER 09/11/2015 10:52 AM GLASS HANDLER Scott Lee MD LAB - SEROLOGY ORDER MAYRA Performing Organization Address City/[facility]/ZIP Co de Phone Number [address] [phone] * (ABNORMAL) HEPATITIS B SURFACE ANTIBODY (09/11/2015 10:46 AM GLASS HANDLER) Hepatitis B Virus Surface Antibody Reactive( A) Non-react rosendo [facility] Comment: > 12 mIU/mL Hepatitis B surface Antibody (HBsAb). Reactive for HBsAb - individual is considered immune to Hepatitis B Virus infection. Hepatitis B Surface Antibody Quantitative 76.9(H) <8.0 mIU/mL [facility] Comment: Hepatitis B Surface Antibody Numeric Result Interpretation: Nonreactive: <8.0 mIU/mL Indeterminate: 8.0 - 12.0 mIU/mL Reactive: >12.0 mIU/mL Blood specimen (specimen) BLOOD SPECIMEN / Unknown 09/11/2015 10:46 AM GLASS HANDLER 09/11/2015 10:52 AM GLASS HANDLER Scott Lee MD LAB - CHEMISTRY LUIS ENRIQUE CELIS Performing Organization Address City/[facility]/ZIP Co de Phone Number [address] [phone] * HEPATITIS C ANTIBODY (09/11/2015 10:46 AM GLASS HANDLER) Hepatitis C Antibody Non-react rosendo Non-reac tive [facility] Comment: Hepatitis C Antibody screen indicates no serologic evidence of past or current infection with Hepatitis C Virus. Patients with unexplained liver disease who are immunocompromised or suspected of having acute Hepatitis C infection may benefit from Nucleic Acid Test (ERUM) for Hepatitis C Viral RNA to confirm Hepatitis C status. Blood specimen (specimen) BLOOD SPECIMEN / Unknown 09/11/2015 10:46 AM GLASS HANDLER 09/11/2015 10:52 AM GLASS HANDLER Scott Lee MD LAB - CHEMISTRY LUIS ENRIQUE CELIS Performing Organization Address [facility] [place] [address], [facility] [phone] * CULTURE BLOOD (09/11/2015 2:55 AM GLASS HANDLER) Only the most recent of2 resultswithin the time period is included. Pathologist [facility] Culture Blood No Growth at 5 days [facility] Blood specimen (specimen) 09/11/2015 2:55 AM GLASS HANDLER 09/11/2015 3:00 AM GLASS HANDLER Narrative [facility] - 09/16/2015 3:15 AM GLASS HANDLER Draw 15 minutes after Culture 1 from a different site Scott Lee MD LAB - MICROBIOLOGY O RDERABLES Performing Organization Address City/[facility]/[place] [address], [facility] [phone] Care Teams Photographic Aide Relationship Specialty Start Date End Date Sharri Argueta DO [address] [place] [address] PCP - General 10/23/20 Qi Story, RN Registered Nurse 10/28/20
--- OUTSIDE RECORDS SUMMARY | 2024-11-20 00:51 | XMS_ITS | Clinical Summary ---
Author Organization [facility] Address [address] [place] [address] Care Team Providers Care Refrigerator Repairman Name Role Phone Sharri Argueta DO Primary Care Provider [phone] Qi Story RN Unavailable Unavailable Source Comments [facility],non-owned Affiliates and Associated Physician Practices is amultiple site organization consisting of ambulatory clinics and hospital sitesin [place], [place], [place] and [place]. This disclosure is being madepursuant to the Care Everywhere program and may not contain all information available regarding this patient. 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 -start TAC oint BID PRN w wet wraps, instructions provided Multiple benign melanocytic nevi of upper extremity, lower extremity, and trunk 11/04/2020 Assessment & Plan (11/04/2020 12:01 PM CIVIL STRUCTURAL ENGINEER): - None atypical or more concerning than others on exam today - Counseled on importance of daily sun protection, and monthly self skin exams - Reviewed ABCDEs of melanoma - Advised sun protective behaviors and regular sun screen use - Annual FBSE Lentigines 11/04/2020 Assessment & Plan (11/04/2020 12:01 PM CIVIL STRUCTURAL ENGINEER): -Benign, reassurance Other specified dermatitis 11/04/2020 Seborrheic keratosis 11/04/2020 Neutropenia 10/28/2020 History of hepatocellular carcinoma 11/20/2018 Long-term use of immunosuppressant medication Benign essential HTN 08/28/2018 IPMN (intraductal papillary mucinous neoplasm) 0 05/23/2018 Fatty pancreas 05/08/2018 Right inguinal hernia 05/08/2018 Overview (05/08/2018): Indirect Diabetes mellitus type 2, uncontrolled 8 Pre-transplant evaluation for liver transplant 0 12/23/2017 Overview (12/23/2017): LISTED Diagnosis: BRADSHAW/HCC Referring Radio Television Technical Director: Andrew Alert: Will need renoportal at the [...] on room air, right radial, negative modified Anopo test. Patient gave a good effort but [...] It is the impression of this social secretary that Robert Rico Cateanalia has several positive factors for Liver transplant candidacy including knowledge of illness, sufficient insurance coverage, stable financial situation for post transplant needs, and no concerns regarding substance abuse. SW concerns are patient's support system and discharge plan. Plan: outreach worker to provide supportive services as needed. Patient appears to be a reasonable candidate for transplant from a psychosocial perspective, pending: - Post transplant arrangement forms are needed prior to being listed, with confirmation. Psychiatric Consult Recommended: No Transplant Broker: MIKY OVERTON RD: 24 Hour Recall/food frequency: eggs, chocolate milk, salad, spaghetti, hamburger, [place] - loaiza seared, mash potatoes, broccoli, corn cauliflower, apples, ham and kyrgyz, lettuce and tomato sandwich, Ramen noodles about [...] Transplant Date: 11/03/2017 Donor: Standard criteria donor [id number] CMV D-/R-, EBV D+/R+ Pre-Transplant Summary: ESLD [...] PCP Adjustments: Readmissions: Biopsies: Explant Liver, explant, kasigluk hepatectomy (A): - Cirrhosis (history of BRADSHAW) - Completely necrotic nodule in right lobe (4.0 cm) - Macroregenerative nodules, multifocal - Focal dysplasia (small and large cell changes) - Hepatocellular iron focally up to 4+ - No viable hepatocellular carcinoma identified Gallbladder, kasigluk hepatectomy (A): - Mild chronic cholecystitis Gallbladder, [...] cirrhosis. The PAS-D stain is negative for uwwdf-5-izikdhiondf globules. The iron stain shows granular hepatocellular [...] from the prior study (LR 3). 2. Ynkmti-xkqym-ptpofr venous anastomosis, with unchanged aneurysmal dilatation at [...] liver without washout (LR 3). 2. Patent sskqpe-xbhyb-stakmy venous anastomosis, with unchanged aneurysmal dilatation of [...] recommended. Assessment & Plan (11/04/2020 12:01 PM CIVIL STRUCTURAL ENGINEER): -discussed inc risk NMSC/MM - Reviewed [...] Refill [facility] [address] [place] [address] Ramon Morales MD Refill Request 10/02/2024 Orders Only [facility] [address] [place] [address] Ramon Morales MD Long-term use of immunosuppressant medication; S/P liver transplant (HCC) 09/14/2024 Refill [facility] [address] [place] [phone] Ramon Morales MD MEDICATION REFILL 08/28/2024 Telephone [facility] [address] [place] [phone] Ramon Morales MD Surgery Scheduling from Last 3 Months Immunizations Name Administration Dates Next Due [email or web address] primary monoval ent 12+ yr 0.3mL Purple [...] Sexual Orientation Straight 07/31/2024 7: 47 PM CIVIL STRUCTURAL ENGINEER Last Filed Vital Signs Vital Sign Reading Time Taken Comments Blood Pressure 137/83 07/21/2024 1:48 PM CIVIL STRUCTURAL ENGINEER Pulse 74 07/21/2024 1:48 PM CIVIL STRUCTURAL ENGINEER Temperature 36.4 C (97.5 F) 05/31/2023 1:01 PM CDT Respiratory Rate 18 07/21/2024 1:48 PM CIVIL STRUCTURAL ENGINEER Oxygen Saturation 99% 07/21/2024 1:48 PM CIVIL STRUCTURAL ENGINEER Inhaled Oxygen Concentration - - Weight 93.7 kg (206 lb 9.6 oz) 07/21/2024 1:48 P M CIVIL STRUCTURAL ENGINEER Height 182.9 cm (6') 07/21/2024 1:48 PM CIVIL STRUCTURAL ENGINEER Body Mass Index 28.02 07/21/2024 1:48 PM CIVIL STRUCTURAL ENGINEER Plan of Treatment Upcoming Encounters Date Type Department Care Team (Late st Contact Info) Description 02/02/2025 12:00 PM CDT Office Visit [facility] [address] [place] [address], [place] [phone] Ramon Morales MD [address] [place] [address] [place] [address] Health Maintenance Due Date Last Done Comments [...] complete this topic MENINGOCOCCAL (Group B) VACCINE SHARED DECISION-MAKING Aged Out No longer eligible based on patient's age to complete this topic MENINGOCOCCAL GROUPS A/C/Y/W VACCINE Aged Out No longer eligible based on patient's age to complete this topic Goals Goal Patient Goal Type Associated Problems Recent Progress Patient-Stated? Author Medication Management General On track( 023 1:11 PM CDT) Ayah Kilgore, RN Note: Expected end date: ongoing Interventions: Take all medications as prescribed Procedures Procedure Name Priority Date/Time Associated Diagnosis Comments COMPREHENSIVE METABOLIC PANEL Routine 07/15/2024 8:06 AM CIVIL STRUCTURAL ENGINEER Long-term use of immunosuppressant medication S/P liver transplant (HCC) ENDOSCOPY, COLON, SCREENING Routine 04/04/2020 9:37 AM CDT HEMOGLOBIN A1C 03/14/2020 8:46 AM CDT HEPATITIS C ANTIBODY Routine 09/11/2015 10:46 AM CIVIL STRUCTURAL ENGINEER from Last 3 Months or Most Recently Relevant to Health Maintenance Results * (ABNORMAL) COMPREHENSIVE METABOLIC PANEL (07/15/2024 8:06 AM CIVIL STRUCTURAL ENGINEER) Glucose 149(H) 65 - 99 mg/dL [...] 46 U/L [facility] Comment: Test Performed at: [facility] [address] [place] [address] KAMAR ALEXANDRE MD Blood BLOOD SPECIMEN / Unknown 07/15/2024 8:06 AM CIVIL STRUCTURAL ENGINEER 07/15/2024 8:07 AM CIVIL STRUCTURAL ENGINEER Ramon Morales MD LAB - CHEMISTRY LUIS ENRIQUE CELIS [facility] Organization Address City/State/[facility] Co de Phone Number [facility] [address] [place] [address] * ENDOSCOPY, COLON, SCREENING (04/04/2020 9:37 AM [...] and oxygen saturations were monitored continuously. The [id number] was introduced through the anus and advanced to the cecum, identified by appendiceal orifice and ileocecal valve. The colonoscopy was performed without difficulty. The patient tolerated the procedure well. The quality of the bowel preparation was evaluated using the BBPS ([place] Bowel Preparation Scale) with scores of: Right [...] non-shelby portions. Procedure Code(s): --- Professional --- 29169, Colonoscopy, flexible; with removal of tumor(s), polyp(s), or other lesion(s) by snare technique 51048, 59, Colonoscopy, flexible; with biopsy, single or multiple Diagnosis Code(s): --- Professional --- Z12.11, Encounter for screening for malignant neoplasm of colon K63.5, Polyp of colon K62.1, Rectal polyp CPT copyright 2019 [employer]. All rights reserved. The codes documented in this report are preliminary and upon electric sign wirer review may be revised to meet current compliance requirements. _ Ramon Morales MD 04/04/2020 10:34:35 AM This report has been signed electronically. Note Initiated On: 04/04/2020 9:37 AM Number of Addenda: 0 [facility] [address] [place], [place] [id number] [place] [address] 04/04/2020 9:37 AM CDT Elda Rashid MD GI PROCEDURE ORDERAB LES Performing Organization Address [facility] Co de Phone Number [facility] * (ABNORMAL) HEMOGLOBIN A1C (03/14/2020 8:46 [...] of diabetes for children. Test Performed at: [facility] [address] [place] [address] OMARI HOFFMANN DO,MPH 03/14/2020 8:46 AM CDT 03/14/2020 8:47 AM CDT Ramon Morales MD LAB - CHEMISTRY LUIS ENRIQUE CELIS Performing Organization Address [facility] Co de Phone Number [facility] [address] [place] [address] * HEPATITIS C ANTIBODY (09/11/2015 10:46 AM CIVIL STRUCTURAL ENGINEER) Hepatitis C Antibody Non-react rosendo Non-reac tive [facility] Comment: Hepatitis C Antibody [...] BLOOD SPECIMEN / Unknown 09/11/2015 10:46 AM CIVIL STRUCTURAL ENGINEER 09/11/2015 10:52 AM CIVIL STRUCTURAL ENGINEER Scott Lee MD LAB - CHEMISTRY LUIS ENRIQUE CELIS [facility] [address] [place] [address], [facility] [phone] from Last 3 Months or Most Recently Relevant to Health Maintenance Advance Directives Documents on File Type Date Recorded Patient Hand Folder Expl anation Advance Directives and Livin g Will 07/17/2016 12:00 AM Advance Directives and Livin g Will 09/11/2015 12:00 AM Care Teams Refrigerator Repairman Relationship Specialty Start Date End Date Sharri Argueta DO [address] [place] [address] PCP - General 10/23/20 Qi Story, RN Registered Nurse 10/28/20
--- OUTSIDE RECORDS SUMMARY | 2024-11-20 00:52 | XMS_ITS | Clinical Summary ---
Author Organization [facility] Address [address] [place] [address] Phone Care Team Providers Care Slagger Name Role Phone Unavailable Primary Care Provider [...] on file Legal Sex Male 7:29 AM SHEET CUTTER Gender Identity Not on file Sexual Orientation [...] cm (6' 1 ) 11/14/2017 8:00 PM SHEET CUTTER Body Mass Index 32.06 11/14/2017 8:00 PM SHEET CUTTER Plan of Treatment Health Maintenance Due Date [...] Comments LIPID PANEL Routine 11/15/2017 5:52 AM SHEET CUTTER HEMOGLOBIN A1C Routine 11/15/2017 5:52 AM SHEET CUTTER from Last 3 Months or Most Recently Relevant to Health Maintenance Results * HEMOGLOBIN A1C (11/15/2017 5:52 AM SHEET CUTTER) HEMOGLOBIN A1C 6.0 4.0 - 6.0 % 11/15/2017 11:36 AM [facility] EST. AVG GLUCOSE, A1C 126 mg/dL 11/15/2017 11:36 AM [facility] Blood Venipuncture / Unknown 11/15/2017 5:52 AM SHEET CUTTER 11/15/2017 10:35 AM SHEET CUTTER aZckary Alfonso [facility] CHEMISTRY ORDERABLES F inal Result [facility] CLIA# [id number] [address] [facility] [address] * (ABNORMAL) LIPID PANEL (11/15/2017 5:52 AM SHEET CUTTER) CHOLESTEROL 119 <200 mg/dL 11/15/2017 11:33 AM [facility] TRIGLYCERIDE 121 <150 mg/dL 11/15/2017 11:33 AM [facility] HDL 24(L) 40 - 59 mg/dL 11/15/2017 11:33 AM [facility] LDL CALCULATED 71 <100 mg/dL 11/15/2017 11:33 AM [facility] NON-HDL CHOLESTEROL 95 <130 mg/dL 11/15/2017 11:33 AM [facility] Blood Venipuncture / Unknown 11/15/2017 5:52 AM SHEET CUTTER 11/15/2017 10:35 AM SHEET CUTTER Narrative [facility] - 11/15/2017 11:33 AM SHEET CUTTER TOTAL CHOLESTEROL mg/dL Desirable <200 Borderline high [...] ORDERABLES F inal Result [facility]# [id number] [address] [place] [address] from Last 3 Months or Most Recently Relevant to Health Maintenance Insurance [facility] BLUE PREFERRED Advance Directives For more information, please contact: [phone] * Full Code (Latest Code Status on File) Date Activated Date Inactivated Comments 11/14/2017 12:56 PM 11/21/2017 1:27 PM
--- OUTSIDE RECORDS SUMMARY | 2024-11-20 00:52 | XMS_ITS | Clinical Summary ---
Author Organization [facility] Address [facility] [place] [address] Care Team Providers Care Parking Meter Mechanic Name Role Phone Rod Sanches MD Primary Care Provider [phone] Social History Tobacco Use Types Packs/Day Years [...] age to complete this topic Care Teams Parking Meter Mechanic Relationship Specialty Start Date End Date Rod Sanches MD [address] [place] [id number] PCP - General 09/10/15
--- OUTSIDE RECORDS SUMMARY | 2024-11-20 00:52 | XMS_ITS | Encounter Summary ---
Author Organization [facility] Address [address] [place] [address] Care Team Providers Care Production Lapping Machine Operator Name Role Phone Rod Sanches MD Primary Care Provider [phone] Phylicia Beck RN Unavailable Unavailable Sharri Argueta DO Primary Care Provider [phone] Rod Sanches MD Primary Care Provider [phone] Sharri Argueta DO Primary Care Provider [phone] Qi Story RN Unavailable Unavailable Encounter Details Date Type Department Care Team (Late st Contact Info) Description 05/06/2018 Nutrition [facility] TRANSPLANT [address] [place] [id number] [address]/LOLLY Social History Tobacco Use Types Packs/Day Years Used Date Smoking Tobacco: Former Cigarettes Q uit: 09/11/1983 Smokeless Tobacco: Never Alcohol Use Standard Drinks/Week Comments No 0 (1 standard drink = 0.6 oz pur e alcohol) Sex and Gender Information Value Date Recorded Sex Assigned at Not on file Gender Identity Not on file Sexual Orientation Straight 07/31/2024 7: 47 PM INFORMATION TECHNOLOGY PROGRAM MANAGER documented as of this encounter Progress Notes [...] Saturday- Dinner - 6 fried chicken wings, kinyarwanda fries, HS - 6 cookies Saturday - [...] Description 02/02/2025 12:00 PM CDT Office Visit [facility] - GI [address] [place] [address], [place] [id number] Ramon Morales MD [address] [place] [address] [place] [address] documented as of this encounter Visit Diagnoses Not on filedocumented in this encounter Care Teams Production Lapping Machine Operator Relationship Specialty Start Date End Date Rod Sanches MD [address] [place] [address] PCP - General 06/09/16 01/13/20 Sharri Argueta DO [address] [place] [address] PCP - General 01/14/20 04/06/20 Rod Sanches MD [address] [place] [address] PCP - General 04/07/20 10/22/20 Sharri Argueta DO [address] [place] [address] PCP - General 10/23/20 Phylicia Beck, RN Registered Nurse 12/23/17 10/27/20 Qi Story, VALENTIN Registered Nurse 10/28/20 documented as of this encounter
--- OUTSIDE RECORDS SUMMARY | 2024-11-20 00:52 | XMS_ITS ---
Author Organization [facility] Address [address] [place] [address] Care Team Providers Care Production Supply Equipment Tender Name Role Phone Sharri Argueta DO Primary Care Provider Qi Story RN Unavailable Unavailable Transplant Episode Liver Recipient [facility] ([place], [place]) - [facility] Organ Received: Liver Transplanted on 11/03/2017 Marked as Active Follow-up on 11/03/2017 Liver CoordinatorQi Story RN Phone: N/A Fax: N/A Email: N/A [place] Organ Diagnosis Organ Primary Contributory Liver Cirrhosis: [...]
--- NOTE | 2024-11-20 06:36 | P.PNAN_ITS ---
Anes - Initial Pre Proc Eval Procedure: Operation Date: 11/20/24 07:30 Proposed Procedures p C3-4, C4-5 Anterior Cervical Discectomy with Fusion - Sylvain Be MD Date/Time: 11/20/24 06:36 Surgeon: Sylvain Be MD Pre Op Diagnosis: cervical myelopathy Patient Data Age: 69 Gender: M Height: 1.83 m Weight: 87 kg Last Vital Signs Temp 37.0 C 09/22/24 11:55 Pulse 78 09/22/24 11:55 Resp 16 09/22/24 11:55 BP 131/81 09/22/24 11:55 Pulse Ox 99 09/22/24 11:55 O2 Del Method Room Air 09/22/24 11:55 Allergies Allergy/AdvReac Type Severity Reaction Status Date / Time Penicillins Allergy Unknown UNKNOWN Verified 11/04/24 09:30 ibuprofen AdvReac Other/avoid Verified 11/04/24 09:30 s CEPHALEXIN MONOHYDRATE AdvReac Unknown GI DISTRESS Uncoded 11/04/24 09:30 Home Medications ?Medication ?Instructions ?Recorded ?Confirmed ?Type amlodipine 10 mg tablet 10 mg PO DAILY 07/28/19 09/22/24 History aspirin 81 mg tablet,delayed 81 mg PO DAILY 07/28/19 09/22/24 History release carvedilol 25 mg tablet 25 mg PO Q12H 07/28/19 09/22/24 History tacrolimus 1 mg capsule, 1 mg PO Q12H 08/11/19 11/04/24 History immediate-release triamcinolone acetonide 55 mcg 1 spray intranasal DAILY PRN sinus 08/11/19 09/22/24 History nasal spray aerosol (Nasacort) symptoms loratadine 10 mg tablet (Claritin) 10 mg PO DAILY 04/17/21 09/22/24 History albuterol sulfate 90 mcg/actuation 2 puff inhalation Q4-6H PRN 08/18/21 09/22/24 Rx aerosol inhaler (ProAir HFA) shortness of breath or wheezing #8.5 grams cyclobenzaprine 10 mg tablet 10 mg PO TID PRN muscle spasm #180 05/25/22 09/22/24 Rx tabs doxazosin 8 mg tablet 8 mg PO DAILY 04/16/24 09/22/24 History magnesium oxide 400 mg PO DAILY 06/05/24 09/22/24 History losartan 25 mg tablet See Rx Instructions .Route 09/21/24 09/22/24 Rx .COMPLEX #100 tabs metformin 500 mg tablet 1,000 mg PO BID 11/04/24 11/04/24 History Patient hx anesthesia problems: none Family hx anesthesia problems: none Results Review: All pre-operative results and documents have been reviewed as part of the pre- operative evaluation. [facility] Past Medical History Medical History Seizures Chronic headaches Diabetes Asthma Allergies Hepatitis C antibody test negative (02/23/12) Surgical History Surgical History H/O inguinal hernia repair H/O kyphoplasty Hx of carpal tunnel repair Bilateral - January and February 2023 Liver transplant recipient (~2017) Family History Family History Grandparent Diabetes mellitus Acute myocardial infarction Cerebrovascular accident Mother Family history of malignant neoplasm, Onset Age: 41 Father Hypertension Other Family history of alcoholism Family history of blood dyscrasia Social History Social History Smoking packs per day: 2 Smoking cigarettes per day: 40.0 Years smoked: 12 Smoking pack-years: 24.00 Smoking status: Former smoker Tobacco type: cigarettes Smoking end date: 12/15/84 Alcohol intake: never Substance use: never Substance use type: does not use Do You Feel Safe in your Home?: Yes Lack of Transportation: No Lack of Food: Never True Current Housing: I Have Housing Concerned About Future Housing: No Difficulty Paying Gas/Electric Bills: No Difficulty Paying for Meds: No Currently Unemployed: No Education: Associate Degree Difficulty w/ Childcare or Family Care: No Living arrangements: with family Additional living arrangements comments: Spiritual care concerns: No Anes - Eval Final PreProcedure Day of Procedure 11/20/24 06:36 Patient weight: overweight Heart: regular rate and rhythm Lungs: clear to auscultation Airway: Mallampati scale class II Neurological: alert and oriented Last oral intake: >/= 8 hours ASA classification: III Emergent: no Anesthetic plan: proceed Anesthesia type and monitoring: general ETT and standard monitoring Results Review: All pre-operative results and documents have been reviewed as part of the pre- operative evaluation. Informed Consent: The patient's anesthetic plan and its attendant risks and benefits were discussed with the patient/family/POA. Questions were solicited and answers provided to the satisfaction of the patient/family/POA.
[2024-11-20 06:49] LABS: Immature Platelet Fraction Pct 4.6 % (0.9-11.2); Mean Platelet Volume 10.7 fl (7.4-10.4); Platelet Count Result 75 k/mm3 (150-375)
[2024-11-20] MEDS: LACTATED RINGERS 1,000 ML 30 ML IV CONT ×3 (07:04→11:50)
[2024-11-20 07:17] LABS: Glucose Point of Care 115 mg/dl (65-105)
--- NOTE | 2024-11-20 07:17 | WPDHPUPDATE1 ---
History and Physical Update Update Date/Time: 11/20/24 07:17 History and Physical has been reviewed, including an updated exam of the patient. There are NO changes in the patient's condition. Risks, benefits, and alternatives have been discussed and questions answered. Patient agrees to proceed with procedure.
--- NOTE | 2024-11-20 07:18 | PM.IMHP ---
H&P: HPI History of Present Illness Date/Time: 11/20/24 07:18 Chief Complaint: \cervical myelopathy Narrative: this is a 68-year-old gentleman who I previously evaluated for his lumbar spinal stenosis for which he did get improvement from a steroid injection at L4-5. Further workup indicated that he had is evidence of cervical myelopathy and an MRI scan of his cervical spine indicated myelomalacia with severe spinal canal stenosis at C4-5 as well as moderate to severe stenosis at C3-4. Considering the myelomalacia his progressive cervical myelopathy I offered him an anterior cervical diskectomy and fusion at both C3-4 and C4-5. [facility] Past Medical History Medical History Seizures Chronic headaches Diabetes Asthma Allergies Hepatitis C antibody test negative (02/23/12) Surgical History Surgical History H/O inguinal hernia repair H/O kyphoplasty Hx of carpal tunnel repair Bilateral - January and February 2023 Liver transplant recipient (~2017) Family History Family History Grandparent Diabetes mellitus Acute myocardial infarction Cerebrovascular accident Mother Family history of malignant neoplasm, Onset Age: 41 Father Hypertension Other Family history of alcoholism Family history of blood dyscrasia Social History Social History Smoking packs per day: 2 Smoking cigarettes per day: 40.0 Years smoked: 12 Smoking pack-years: 24.00 Smoking status: Former smoker Tobacco type: cigarettes Smoking end date: 12/15/84 Alcohol intake: never Substance use: never Substance use type: does not use Do You Feel Safe in your Home?: Yes Lack of Transportation: No Lack of Food: Never True Current Housing: I Have Housing Concerned About Future Housing: No Difficulty Paying Gas/Electric Bills: No Difficulty Paying for Meds: No Currently Unemployed: No Education: Associate Degree Difficulty w/ Childcare or Family Care: No Living arrangements: with family Additional living arrangements comments: Spiritual care concerns: No Meds Home Medications and Allergies Home Medications ?Medication ?Instructions ?Recorded ?Confirmed ?Type amlodipine 10 mg tablet 10 mg PO DAILY 07/28/19 11/20/24 History aspirin 81 mg tablet,delayed 81 mg PO DAILY 07/28/19 11/20/24 History release carvedilol 25 mg tablet 25 mg PO Q12H 07/28/19 11/20/24 History tacrolimus 1 mg capsule, 1 mg PO Q12H 08/11/19 11/20/24 History immediate-release triamcinolone acetonide 55 mcg 1 spray intranasal DAILY PRN sinus 08/11/19 09/22/24 History nasal spray aerosol (Nasacort) symptoms loratadine 10 mg tablet (Claritin) 10 mg PO DAILY 04/17/21 11/20/24 History albuterol sulfate 90 mcg/actuation 2 puff inhalation Q4-6H PRN 08/18/21 09/22/24 Rx aerosol inhaler (ProAir HFA) shortness of breath or wheezing #8.5 grams cyclobenzaprine 10 mg tablet 10 mg PO TID PRN muscle spasm #180 05/25/22 11/20/24 Rx tabs doxazosin 8 mg tablet 8 mg PO DAILY 04/16/24 11/20/24 History magnesium oxide 400 mg PO DAILY 06/05/24 11/20/24 History losartan 25 mg tablet See Rx Instructions .Route 09/21/24 11/20/24 Rx .COMPLEX #100 tabs metformin 500 mg tablet 1,000 mg PO BID 11/04/24 11/20/24 History Allergies Allergy/AdvReac Type Severity Reaction Status Date / Time Penicillins Allergy Unknown UNKNOWN Verified 11/20/24 06:58 ibuprofen AdvReac Other/avoid Verified 11/20/24 06:58 s CEPHALEXIN MONOHYDRATE AdvReac Unknown GI DISTRESS Uncoded 11/20/24 06:58 Vital Signs Vital Signs - 24 hr 11/20/24 07:01 Temperature 97.6 F Pulse Rate 66 Respiratory Rate 14 Blood Pressure 130/66 Pulse Oximetry 100 Oxygen Delivery Room Air Exam Neuro: Other: awake alert no acute distress MAEW 01/11 no hoffmans noted H&P: Results Labs Labs: Short CBC 11/20/24 Range/Units 06:40 Plt Count 75 L (150-375) k/mm3 Assessment and Plan Assessment and plan (1) Cervical myelopathy: Code(s): G95.9 - Disease of spinal cord, unspecified Status: Acute Plan this is a 68-year-old gentleman who I previously evaluated for his lumbar spinal stenosis for which he did get improvement from a steroid injection at L4-5. Further workup indicated that he had is evidence of cervical myelopathy and an MRI scan of his cervical spine indicated myelomalacia with severe spinal canal stenosis at C4-5 as well as moderate to severe stenosis at C3-4. Considering the myelomalacia his progressive cervical myelopathy I offered him an anterior cervical diskectomy and fusion at both C3-4 and C4-5.
[2024-11-20] MEDS: ceFAZolin 2 GM/D5W 50 ML 2 GM/50 ML BAG IVPB (07:30)
[2024-11-20] MEDS: BUPIVACAINE/EPINEPHRINE 0.5% 10 ML VIAL 30 ML INFILTRATE (08:26)
[2024-11-20] MEDS: fentaNYL CITRATE INJ (*CRX) 100 MCG/2 ML VIAL 25 MCG IV PUSH ×2 (11:58→12:03)
--- NOTE | 2024-11-20 12:07 | W.PM.PROC2 ---
Procedure Note - Detailed Date of Procedure 11/20/24 Pre-op Diagnosis cervical myelopathy Post-op Diagnosis Same Procedure Performed C3/4, C4/5 ACDF Surgeon Sylvain Be MD Anesthesia General Indications Cervical myelopathy Description of Procedure Patient was brought to the operating room and turned over Anesthesia for intubation and placement of all lines once this was complete the patient was positioned supine with a shoulder roll placed underneath his shoulders and his head placed onto a gel roll. His shoulders were taped down. Lateral fluoroscopy was brought in and the C3-C4 C5 levels were identified and a skin incision was marked in a crease in his skin. The patient was then sterilely prepped and draped in the usual sterile fashion. The skin was opened with a 10 blade hemostasis was vigorously obtained as the placed had low platelets. Hemostasis was obtained at every level vigorously. I then opened the platysma sharply. Hemostasis was again obtained. I then found a plane between the sternocleidomastoid and the trachea. This was bluntly dissected with my finger until I could reach the anterior cervical spine. I palpated the carotid and made sure that I was medial to this when I brought my finger retractors. I then used a a chondroid to retract and remove all the soft tissue off of the anterior vertebral spine. I then placed a spinal needle at the C4-5 level and this was confirmed with fluoroscopy. At this point he has Bovie electrocautery to remove the tissue off the anterior aspect of the bone at the C4-C5 levels. Because of the difficulty with using the retractor system available at this hospital I only exposed the C4-5 level with the plan to expose the C3-4 5 level later. I then placed the Shadow Line retractor with great difficulty to retract the muscles laterally and esophagus medially. I then attempted to place another retractor rostral caudally however this retractor was not holding and position very well. I was able to remove soft tissue off of the bone of the vertebral bodies of C4-C5 to the point recommend place cast bar pins is Rasheed pins were placed in and I placed a retractor over the Wellington pins and distracted a disc space. The disc space was then cut open with an 11 blade and the disc was removed with a variety of curettes and pituitary rongeur is. I then placed a disc space distractor to open up to the disc space and restored to normal disc height. At this point I used a drill to drill away any anterior osteophytes as well as posterior osteophytes. I was unable to use a nerve hook to remove very large chunks of disc herniation once the PLL was entered. I then used 2 Kerrison to carefully remove additional pieces until the spinal cord was visible and all areas were decompressed. Hemostasis was again obtained with FloSeal and irrigation. A trial was then placed 7 mm trial seemed to be very very snug and did not move however on x-ray because of the angulation of the C5 vertebral body there was a space noted on x-ray. I decided not to size up the graft even though I did trial any mm it appeared too large for the disc space. As such I opened a 7 mm graft and placed this with I factor into the C4 5 disc space. This was secure and I then removed the posterior cast bar pin. I then moved to the C3-4 level where I then again repeated the process of exposing the disc space and vertebral bodies. There were several large anterior osteophytes that were removed with a combination of drill and Kerrison Brown. The anterior vertebral body was contoured such that it was flat. I then placed Wellington pin into C3 placed a distractor and into the disc space with 11 blade and removed the disc with fried of curettes. Once I was at the PLL I was able to remove any anterior posterior osteophytes with the drill. I then used a nerve hook to enter the PLL and remove disc fragments until I was able to visualize the spinal cord. Once the spinal cord was decompressed hemostasis was obtained and again placed a 7 mm trial which fit perfectly. I then removed the trial and placed a 7 mm cage after decorticating the endplates. Once the trial was flushed I then brought in a plate and placed it across the C3-C4 and C5 vertebral bodies. This was visualized on x-ray and appear to be in good position I then placed 616 mm screws at all 3 levels to secure the plate to the bone. At this point I proceeded with irrigation and vigorous hemostasis. I circumferentially hemostased laterally medially rostrally and caudally and spiral up towards the skin incision using bipolar cautery to stop any additional bleeding. I then also irrigated the wound and repeated this process again. After this I placed FloSeal FloSeal into the wound and a Ray-Sanya and waited 3 minutes and re-evaluate the wound and again repeated this process 2 more times. There was no additional bleeding at this point and I have placed a subcutaneous drain and placed this into the resection cavity and began closure in layers. Once the final skin was closed Steri-Strips were placed I instructed my surgical supply assistant carefully he keep his hand on the drain while we removed the drapes however unfortunately the drain was removed at this point there was vigorous bleeding from the drain exit site which was not stopped with pressure after several minutes. As such I placed a stitch and because of his low platelet count and vigorous Carrera bleeding I recommended we re-prepped the patient and open the wound to evaluate for any extra bleeding. There was no added identifiable arterial bleeding however there were several areas of ooze this again was stopped with bipolar electrocautery and again I spent 3 minutes with FloSeal and a Ray-Sanya observing for any additional bleeding. There was no additional bleeding the wound was irrigated and the the wound was again closed in layers. I specifically did not leave a drain this time as I am worried that removal of the drain may irritate a blood vessel and cause bleeding. The risks and benefits of placing a drain were considered. The patient was then who turned over to Anesthesia for extubation. Estimated Blood Loss 50 Condition Stable Disposition PACU
[2024-11-20 12:22] LABS: Glucose Point of Care 151 mg/dl (65-105)
--- NOTE | 2024-11-20 13:16 | SUR.PHASEI ---
1315- Patient meets PACU discharge criteria, unit bed unavailable at this time. Patient placed in extended recovery status.
--- NOTE | 2024-11-20 13:48 | SUR.PHASEI ---
PATIENT STATES HE WOULD LIKE TO GO HOME; MESSAGE LEFT WITH DR. GONSALZE IN THE OR TO ASK HIM TO COME TO SPEAK WITH PATIENT.
[2024-11-20] MEDS: SODIUM CHLORIDE 0.9% IV 250 ML 30 ML IV CONT (14:26)
--- NOTE | 2024-11-20 14:30 | WPDNEUROSGPN ---
Subjective Date/time seen: 11/20/24 14:30 Interval history: The patient is doing well after his C3-4, C4-5 ACDF he has minimal pain and feels a lot better. He does not have evidence of any swelling bleeding of his throat. He wishes to go home. I discussed the reason I wanted to watch him overnight for 1 day was because of this issue with possible bleeding and his low platelet count. However he seems to be doing very well and is quite adamant on going home. Considering he is doing very well and his neck looks soft and flat I am okay with him leaving this after she finishes the 2nd in the platelets and is observed by the nurse for another 1 or 2 hours. Objective Data Vital Signs Vital Signs: Vital Signs - 24 hr 11/20/24 07:01 11/20/24 11:50 11/20/24 12:05 Temperature 97.6 F 97.5 F L Pulse Rate 66 78 84 Respiratory Rate 14 13 12 Blood Pressure 130/66 131/52 L 143/70 H Pulse Oximetry 100 100 100 Oxygen Delivery Room Air Simple Face Mask Simple Face Mask Oxygen Flow Rate 8 8 11/20/24 12:20 11/20/24 12:20 11/20/24 12:35 Temperature 97.5 F L Pulse Rate 84 89 87 Respiratory Rate 14 14 14 Blood Pressure 144/77 H 145/76 H 144/72 H Pulse Oximetry 98 97 98 Oxygen Delivery Room Air Room Air Oxygen Flow Rate 11/20/24 12:50 11/20/24 13:05 11/20/24 13:25 Temperature Pulse Rate 86 88 84 Respiratory Rate 18 14 13 Blood Pressure 142/70 H 141/72 H 137/71 Pulse Oximetry 98 97 96 Oxygen Delivery Room Air Room Air Room Air Oxygen Flow Rate 11/20/24 13:55 Temperature Pulse Rate 88 Respiratory Rate 15 Blood Pressure 146/75 H Pulse Oximetry 98 Oxygen Delivery Room Air Oxygen Flow Rate Intake/Output Intake/Output: Intake & Output 11/17/24 11/18/24 11/19/24 11/20/24 23:59 23:59 23:59 23:59 Intake Total 667 Balance 667 Meds/Results Medications: Active Medications Generic Name Dose Route Start Last Admin Trade Name Freq PRN Reason Stop Dose Admin Acetaminophen 650 mg 11/20/24 12:02 Acetaminophen 325 Mg Tablet PO Q6H PRN Mild Pain (1-3) Hydrocodone Bitart/Acetaminophen 1 tab 11/20/24 12:02 Hydrocodone/Acetaminophen (*Crx) 10-325 Mg Tablet PO Q4H PRN Moderate Pain (4-6) Al Hydrox/Mg Hydrox/Simethicone 20 ml 11/20/24 12:02 Mag Hydrox/Al Hydrox/Simeth 30 Ml Udc PO Q4H PRN Indigestion/Heartburn Bisacodyl 10 mg 11/20/24 12:02 Bisacodyl 10 Mg Suppository RECTAL DAILY PRN Constipation Cyclobenzaprine HCl 10 mg 11/20/24 12:02 Cyclobenzaprine Hcl 10 Mg Tablet PO TID PRN Muscle Spasms Docusate Sodium 100 mg 11/20/24 21:00 Docusate Sodium 100 Mg Capsule PO Q12HR ERNESTINE Fentanyl Citrate 25 mcg 11/19/24 15:02 11/20/24 12:03 Fentanyl Citrate Inj (*Crx) 100 Mcg/2 Ml Vial IV PUSH 25 mcg Q2M PRN Administration Pain Lactated Ringer's 1,000 mls @ 30 mls/hr 11/19/24 15:05 11/20/24 07:30 Lr - Lactated Ringers Iv IV CONT Infused .Q24H ERNESTINE Infusion Lactated Ringer's 1,000 mls @ 30 mls/hr 11/19/24 15:05 11/20/24 11:50 Lr - Lactated Ringers Iv IV CONT 30 mls/hr .Q24H ERNESTINE Administration Lactated Ringer's 1,000 mls @ 125 mls/hr 11/20/24 06:00 Lr - Lactated Ringers Iv IV CONT .Q8H ERNESTINE Sodium Chloride 250 mls @ 30 mls/hr 11/20/24 11:04 Normal Saline Iv IV CONT 11/20/24 19:23 .Q8H20M STA Sodium Chloride 250 mls @ 30 mls/hr 11/20/24 11:20 Normal Saline Iv IV CONT 11/20/24 19:39 .Q8H20M STA Cefazolin Sodium 1 gm in 50 mls @ 100 mls/hr 11/20/24 15:00 Ancef 1 Gm/Ns 50 Ml IVPB Q8H ERNESTINE Morphine Sulfate 2 mg 11/20/24 12:02 Morphine Sulfate (*Crx) 2 Mg/Ml Inj IV PUSH Q2H PRN Pain Rated 7-10 Ondansetron HCl 4 mg 11/19/24 15:02 Ondansetron Inj 4 Mg/2 Ml Vial IV PUSH ONCE PRN Nausea Ondansetron HCl 4 mg 11/20/24 12:02 Ondansetron Inj 4 Mg/2 Ml Vial IV PUSH Q8H PRN Nausea And Vomiting Oxycodone HCl 5 mg 11/19/24 15:02 Oxycodone Hcl (*Crx) 5 Mg Tab Ir PO ONCE PRN Pain Senna/Docusate Sodium 1 tab 11/20/24 12:02 Senna/Docusate Sodium Tablet PO HS PRN Constipation Labs Labs: Laboratory Results - last 24 hr 11/20/24 11/20/24 11/20/24 06:40 06:45 12:08 Plt Count 75 L MPV 10.7 H % Immature Plt Fraction 4.6 POC Capillary Glucose 115 H 151 H
--- NOTE | 2024-11-20 15:10 | SUR.PHASEII ---
AWAITING SPOUSE'S ARRIVAL TO PICK HIM UP.
--- NOTE | 2024-11-20 16:40 | SUR.PHASEII ---
PATIENT AWAITING RIDE; SPOUSE EN ROUTE. SPOUSE AND DAUGHTER CALLED WITH NO ANSWER.
== END 2024-11-20 17:15 | disposition home or self-care (01) ==
PROVIDERS: Nurse Anesthetist, Certified Registered; PCP Family Medicine; Visit Provider Neurological Surgery
PROC: (CPT 63030; principal; 2024-11-20 07:30)
DX: M48.02 Spinal stenosis, cervical region (principal); G99.2 Myelopathy in diseases classified elsewhere; D69.6 Thrombocytopenia, unspecified; E11.9 Type 2 diabetes mellitus without complications; J45.909 Unspecified asthma, uncomplicated; Z87.891 Personal history of nicotine dependence; Z79.82 Long term (current) use of aspirin; Z79.84 Long term (current) use of oral hypoglycemic drugs
CPT/HCPCS: 22551; 22552; 20936; 22853 ×2; 36415; 36430; 82948; 85049; 85055; 99199; C1713; J0690; J1100; J1171; J2003; J2004; J2250; J2405; J2704; J3010; J3370; J7050; J7120; P9034

== ENCOUNTER 2024-11-23 12:00 | Inpatient (IN) | payer MEDICARE, SELFPAY ==
--- NOTE | ~2024-11-23 | XR_ITS ---
MODIFIED ESOPHAGRAM HISTORY: Dysphagia. Assess for aspiration. TECHNIQUE: Modified barium esophagram was performed on 11/25/2024. I administered fluoroscopy and perf ormed the exam with speech pathologist. Patient was seated for lateral fluoroscopic imaging for costa stion of thin liquids, pudding, solids and quantified amounts, followed by thin liquids in uncontroll ed amounts. This was recorded on tape. A single fluoroscopic spot image was also recorded. The DAP fo r this procedure was 0.877 Gycm2. The amount of fluoroscopy time used during this procedure was 1.4 m inutes. FINDINGS: Again seen are postoperative change of prior C3-C5 instrumented anterior spinal fusion with interbody bone graft cages and anterior plate-screw fixation. There is been interval placement of a surgical d rain with distal tip projecting over the prevertebral soft tissues the level of the spinal fusion. Th e degree of prevertebral soft tissue swelling has significantly decreased. Prominent anterior endplat e osteophytes at C5-C6. Oral stage: Adequate function. Pharyngeal stage: Reduced laryngeal elevation. There is laryngeal penetration with the swallow. There is piriform sinus residual which repeatedly spills into the laryngeal vestibule with subsequent aspi ration into the airway occurring after the swallow.. Cervical/esophageal stage: Adequate function. IMPRESSION: There has been some improvement in the swallow but with persistent laryngeal penetration and aspiration following the swallow resulting from spillage of residual residue in the piriform sinu s. Please correlate with speech pathologist findings and specific feeding recommendations. Reviewed, dictated and finalized at location A. IMPRESSION: There has been some improvement in the swallow but with persistent laryngeal penetration and aspiration following the swallow resulting from spill age of residual residue in the piriform sinus. Please correlate with speech pa thologist findings and specific feeding recommendations.
--- NOTE | ~2024-11-23 | CT_ITS ---
CT soft tissue neck chest w Ordering provider: Paula Cooper APRN History: 69 years Male with . Dysphagia/2 post-op surgery/hematoma evac . Comparison: November 23, 2024 Technique: CT soft tissues neck and chest was performed with contrast. Radiation reduction technique utilized.The dose-length product was 864.3 mGy-cm. 75 mL Omnipaque 350 was given IV. Findings: NECK: LOWER HEAD: Mass is seen in the frontal lobe area measuring 2.2 x 2.8 cm suggestive of a meningioma. Otherwise, the The visualized brain parenchyma, optic globes/orbits and mastoids are normal. The vis ualized paranasal sinuses are well aerated. SALIVARY GLANDS: Normal. THYROID: Normal. DEEP SPACES: Normal. CAROTID ARTERIES: Normal. JUGULAR VEINS: Normal. TONSILS: Normal. ORAL CAVITY: Partially obscured by dental amalgam but normal as visualized. PHARYNX, LARYNX AND TRACHEA: Patent and normal. No prevertebral soft tissue swelling. SUPERFICIAL SOFT TISSUES: Residual fat stranding seen in the left side of the neck between the thyroi d cartilage and the thyroid gland with marked resolution of the previously seen air bubbles. No lymph adenopathy or neck mass. Hyperdense area seen posterior to the left thyroid cartilage which may be or bone and appear unchange d from previous examination. Slightly prominent prevertebral soft tissue in this area is seen. Follow -up advised. THORACIC INLET/VISUALIZED UPPER CHEST: Normal. SKELETAL: Postoperative changes seen extending from C3 to C5.. DISH changes are noted. CHEST: MEDIASTINUM: Aorta: Mild atheromatous disease. Coronary arteries: Mild atheromatous disease. Heart/other: The heart is not enlarged. Lymph nodes: No mediastinal or hilar adenopathy. LUNGS: No pulmonary nodules or masses. No infiltrates or effusions. No pneumothorax. VISUALIZED UPPER ABDOMEN: Residual contrast seen in the bowel. Small soft tissue density in the splee n which may be subcapsular hematoma (millimeter 50 years. Otherwise, the visualized upper abdomen is normal. MUSCULOSKELETAL: Soft tissues: The superficial soft tissues are normal. Bones: Age appropriate degenerative changes of the spine. Healing fracture in the right sixth rib. IMPRESSION: Meningioma in the frontal lobe. Minimal residual postoperative changes in the left side of the neck between the thyroid cartilage and thyroid gland. Hyperdense area seen in the surgical bed which may be bone fragments. Slightly prominent soft tissues posterior to the left side of the thyroid cartilage most likely resid ual postoperative changes. Follow-up advised. 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 Possible subcapsular hematoma in the spleen. Clinical correlation advised. Reviewed, dictated and finalized at location A. IMPRESSION: Meningioma in the frontal lobe. Minimal residual postoperative changes in the left side of the neck between the thyroid cartilage and thyroid gland. Hyperdense area seen in the surgical bed which may be bone fragments. Slightly prominent soft tissues posterior to the left side of the thyroid carti george most likely residual postoperative changes. Follow-up advised. 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 Possible subcapsular hematoma in the spleen. Clinical correlation advised.
--- NOTE | ~2024-11-23 | XR_ITS ---
MODIFIED ESOPHAGRAM HISTORY: Dysphagia post recent anterior cervical spinal fusion. TECHNIQUE: Modified barium esophagram was performed on 11/24/2024. I administered fluoroscopy and perf ormed the exam with speech pathologist. Patient was seated for lateral fluoroscopic imaging for costa stion of thin liquids, pudding, solids and quantified amounts, followed by thin liquids in uncontroll ed amounts. This was recorded on tape. A single fluoroscopic spot image was also recorded. The DAP fo r this procedure was 1.826 Gycm2. The amount of fluoroscopy time used during this procedure was 1.9 m inutes. FINDINGS: Oral stage: Adequate function. Pharyngeal stage: Instrumented C3-C5 anterior spinal fusion with interbody fusion devices and anterio r plate-screw fixation. There is likely postoperative prevertebral soft tissue swelling with lucent s oft tissue gas anterior to the level of the spinal fusion. The soft tissue swelling appears to compro mise passage of contrast into the esophagus as well as the mobility of the epiglottis loss of airway protection with recurrent laryngeal penetration and aspiration after the swallow. Cervical/esophageal stage: Adequate function. IMPRESSION: Recurrent laryngeal penetration and aspiration following the swallow which appears second curly to recent postoperative changes with prominent prevertebral soft tissue swelling anterior an inst rumented C3-C5 anterior spinal fusion. Please correlate with speech pathologist findings and specifi c feeding recommendations. Reviewed, dictated and finalized at location A. IMPRESSION: Recurrent laryngeal penetration and aspiration following the swallo w which appears secondary to recent postoperative changes with prominent prever tebral soft tissue swelling anterior an instrumented C3-C5 anterior spinal fusi on. Please correlate with speech pathologist findings and specific feeding rec ommendations.
--- NOTE | ~2024-11-23 | XR_ITS ---
MODIFIED ESOPHAGRAM HISTORY: Dysphagia. TECHNIQUE: Modified barium esophagram was performed on 11/27/2024. I administered fluoroscopy and perf ormed the exam with speech pathologist. Patient was seated for lateral fluoroscopic imaging for costa stion of thin liquids, pudding, solids and quantified amounts, followed by thin liquids in uncontroll ed amounts. This was recorded on tape. A single fluoroscopic spot image was also recorded. The DAP fo r this procedure was 0.711 Gycm2. The amount of fluoroscopy time used during this procedure was 1.2 m inutes. FINDINGS: Oral stage: Adequate function. Pharyngeal stage: Reduced laryngeal elevation and pharyngeal squeeze. There is piriform sinus residue which probably spills into the airway with laryngeal penetration and aspiration following the swallo w. Prominent anterior endplate osteophytes at C5-C6 and postoperative change C3-C5 and symmetric ante rior spinal fusion. Cervical/esophageal stage: Adequate function. IMPRESSION: Recurrent prompt laryngeal penetration or aspiration after the swallow of residue in the piriform sin us. Please correlate with speech pathologist findings and specific feeding recommendations. Reviewed, dictated and finalized at location A. IMPRESSION: Recurrent prompt laryngeal penetration or aspiration after the swallow of resid ue in the piriform sinus. Please correlate with speech pathologist findings an d specific feeding recommendations.
--- NOTE | ~2024-11-23 | MR_ITS ---
MR brain/brain stem wo/w con Ordering provider: Jacoby Moraes MD History: 69 years Male with . swallowing impaired . Comparison: CT head performed yesterday. Technique: MRI brain was performed with and without contrast. 17 mL ProHance was given IV. FINDINGS: BONES: Normal. CRANIOCERVICAL JUNCTION: normal. PITUITARY: Normal. MAJOR INTRACRANIAL VESSELS: Normal flow void. OPTIC NERVES AND CRANIAL NERVES VII AND VIII COMPLEXES: Grossly normal. BRAIN PARENCHYMA AND CSF SPACES: Mild line Dural based enhancing mass is seen in the frontal lobe are a which measures 2.3 x 2.9x 2.3 cm. The differential include meningioma and less likely olfactory ner ve schwannoma. Metastatic lesions less likely. Mild nonspecific T2 white matter hyperintensities are seen in a bilateral periventricular and deep wh ite matter distribution which are likely related to chronic ischemic small vessel disease. Mild diffu se cortical atrophy. T1 hyperintensity is seen in the aqueduct of Sylvius which may indicate blood products. Susceptibility artifact in the inferior portion of the fourth ventricle is noted which is m ost likely due to calcification.The brainstem and cerebellum are normal. No extra axial fluid collect ions. Diffusion weighted and ADC mapping images reveal no recent ischemia. No midline shift or mass e ffect. PARANASAL SINUSES: Normal. MASTOIDS: Minimal effusion both mastoid air cells. SUPERFICIAL/SURROUNDING SOFT TISSUES: Normal. IMPRESSION: 1. No evidence of acute infarct seen. 2. 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 Follow-up advised. 3. Susceptibility artifact in the aqueduct of Sylvius which may be hemorrhagic. Follow-up advised. Reviewed, dictated and finalized at location A. IMPRESSION: 1. No evidence of acute infarct seen. 2. 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 Follow-up advised. 3. Susceptibility artifact in the aqueduct of Sylvius which may be hemorrhagic . Follow-up advised.
--- NOTE | ~2024-11-23 | XR_ITS ---
EXAMINATION: XR fl Dobhoff insert/rad w img DATE: 11/27/2024 14:27 INDICATION: Dysphagia TECHNIQUE: A Dobbhoff type feeding tube was advanced into the duodenum utilizing intermittent fluoroscopy. 20 mm of Omnipaque-240 was also administered into stomach via the partially placed feeding tube for better delineation of the anatomy of the gastric outlet for subsequent advancement of the feeding tube. Fin al image demonstrates the feeding tube in position with the weighted tip at the expected location of the ligament of Treitz. The tube was flushed with 10 mL sterile saline and fixed to the nares with ad hesive tape. A single fluoroscopic spot image was recorded. The amount of fluoroscopy time used durin g this procedure was 1.5 minutes. Total DAP was 21.55 Gycm^2 There were no immediate complications. FINDINGS/IMPRESSION: Successful fluoroscopy-guided Dobbhoff feeding tube placement with distal tip in the fourth portion o f the duodenum. Reviewed, dictated and finalized at location A.
--- NOTE | ~2024-11-23 | XR_ITS ---
EXAMINATION: XR barium swallow modified DATE: 12/02/2024 12:34 INDICATION: Dysphagia. TECHNIQUE: The patient was given barium-containing material of multiple consistencies to swallow by t wesley speech pathologist while I performed fluoroscopy. Fluoroscopy exposure time was 1.2 minutes. The n umber of fluoroscopy images saved to the PACS was 1. Dose-area product was 0.706 Gy-cm^2. FINDINGS: There is reduced laryngeal elevation, reduced tongue base retraction, reduced pharyngeal squeeze, abrahan lecular residue, and pyriform sinus residue. There is aspiration. IMPRESSION: 1. Aspiration. 2. Please refer to the speech therapy report for recommendations. Reviewed, dictated and finalized at location A.
--- NOTE | ~2024-11-23 | CT_ITS ---
CT soft tissue neck w con Ordering provider: Varun Dunn MD History: 69 years gentleman who presents to the emergency department with difficulty swallowing after anterior cervical spine fusion 3 days earlier. Comparison: None. Technique: CT soft tissues neck was performed with contrast. The dose-length product was 545.60 mGy-cm. Findings: Postoperative change is identified within the area of clinical concern, as one might expect after prabha gical intervention. Punctate foci of air as well as soft tissue swelling are noted. No rim-enhancing fluid collection is appreciated. At the level of the thyroid cartilage, to the left of midline is a 2.8 cm circumlinear focus of incre ased attenuation, likely related to patient's recent intervention. Fixation hardware is noted. THORACIC INLET/VISUALIZED UPPER CHEST: Unremarkable. SKELETAL: As above. IMPRESSION: Perioperative appearance of the neck on postoperative day 3 after anterior approach for cervical spin e fusion, as detailed above. Reviewed, dictated and finalized at location A. IMPRESSION: Perioperative appearance of the neck on postoperative day 3 after anterior appr [facility] for cervical spine fusion, as detailed above.
--- NOTE | ~2024-11-23 | XR_ITS ---
EXAMINATION: XR barium swallow modified DATE: 11/30/2024 13:19 INDICATION: Dysphagia. TECHNIQUE: The patient was given barium-containing material of multiple consistencies to swallow by t he speech pathologist while I performed fluoroscopy. Fluoroscopy exposure time was 2.2 minutes. The n umber of fluoroscopy images saved to the PACS was 1. Dose-area product was 1.3 Gy-cm^2. FINDINGS: There is laryngeal penetration and aspiration. IMPRESSION: 1. Aspiration. 2. Please refer to the speech therapy report for recommendations. Reviewed, dictated and finalized at location A.
[2024-11-23 12:09] VITALS: BP 139/78; PULSE 93; RESP 15; TEMP 36.5; O2SAT 99
--- OUTSIDE RECORDS SUMMARY | 2024-11-23 14:29 | XMS_ITS ---
Author Organization [facility] Address [address] 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 -start TAC oint BID PRN w wet wraps, instructions provided Multiple benign melanocytic nevi of upper extremity, lower extremity, and trunk 11/04/2020 Assessment & Plan (11/04/2020 12:01 PM CASCARA BARK CUTTER): - None atypical or more concerning than others on exam today - Counseled on importance of daily sun protection, and monthly self skin exams - Reviewed ABCDEs of melanoma - Advised sun protective behaviors and regular sun screen use - Annual FBSE Lentigines 11/04/2020 Assessment & Plan (11/04/2020 12:01 PM CASCARA BARK CUTTER): -Benign, reassurance Other specified dermatitis 11/04/2020 Seborrheic keratosis 11/04/2020 Neutropenia 10/28/2020 History of hepatocellular carcinoma 11/20/2018 Long-term use of immunosuppressant medication Benign essential HTN 08/28/2018 IPMN (intraductal papillary mucinous neoplasm) 0 05/23/2018 Fatty pancreas 05/08/2018 Right inguinal hernia 05/08/2018 Overview (05/08/2018): Indirect Diabetes mellitus type 2, uncontrolled 8 Pre-transplant evaluation for liver transplant 0 12/23/2017 Overview (12/23/2017): LISTED Diagnosis: BRADSHAW/HCC Referring Belt Changer: Andrew Alert: Will need renoportal at the [...] It is the impression of this social psychologist that Robert Harrell has several positive factors for Liver transplant candidacy including knowledge of illness, sufficient insurance coverage, stable financial situation for post transplant needs, and no concerns regarding substance abuse. SW concerns are patient's support system and discharge plan. Plan: dairy husbandry worker to provide supportive services as needed. Patient appears to be a reasonable candidate for transplant from a psychosocial perspective, pending: - Post transplant arrangement forms are needed prior to being listed, with confirmation. Psychiatric Consult Recommended: No Transplant Marine Propulsion Technician: MIKY OVERTON RD: 24 Hour Recall/food frequency: eggs, chocolate milk, salad, spaghetti, hamburger, [place] - loaiza seared, mash potatoes, broccoli, corn cauliflower, apples, ham and american, lettuce and tomato sandwich, Ramen noodles about [...] Transplant Date: 11/03/2017 Donor: Standard criteria donor [id number] CMV D-/R-, EBV D+/R+ Pre-Transplant Summary: ESLD [...] PCP Adjustments: Readmissions: Biopsies: Explant Liver, explant, [place] hepatectomy (A): - Cirrhosis (history of BRADSHAW) - Completely necrotic nodule in right lobe (4.0 cm) - Macroregenerative nodules, multifocal - Focal dysplasia (small and large cell changes) - Hepatocellular iron focally up to 4+ - No viable hepatocellular carcinoma identified Gallbladder, [place] hepatectomy (A): - Mild chronic cholecystitis Gallbladder, [...] cirrhosis. The PAS-D stain is negative for kcqeb-3-qlsmzfxeoei globules. The iron stain shows granular hepatocellular [...] from the prior study (LR 3). 2. Gndhhf-ipllq-peggyc venous anastomosis, with unchanged aneurysmal dilatation at [...] liver without washout (LR 3). 2. Patent wjawde-owzlr-iavfgk venous anastomosis, with unchanged aneurysmal dilatation of [...] recommended. Assessment & Plan (11/04/2020 12:01 PM CASCARA BARK CUTTER): -discussed inc risk NMSC/MM - Reviewed ABCDEs [...] treatments are documented for this patient in [facility]. Treatments may have been administered in [...]
--- OUTSIDE RECORDS SUMMARY | 2024-11-23 14:30 | XMS_ITS | Clinical Summary ---
Author Organization [facility] Address [address] [place] [address] Care Team Providers Care Mud Worker Name Role Phone Sharri Argueta DO Primary Care Provider [phone] Qi Story RN Unavailable Unavailable Source Comments [facility],non-owned Affiliates and Associated Physician Practices is amultiple site organization consisting of ambulatory clinics and hospital sitesin [place], [place], [place] and [place]. This disclosure is being madepursuant to the Care Everywhere program and may not contain all information available regarding this patient. 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 -start TAC oint BID PRN w wet wraps, instructions provided Multiple benign melanocytic nevi of upper extremity, lower extremity, and trunk 11/04/2020 Assessment & Plan (11/04/2020 12:01 PM PRIVATE WEALTH ADVISOR): - None atypical or more concerning than others on exam today - Counseled on importance of daily sun protection, and monthly self skin exams - Reviewed ABCDEs of melanoma - Advised sun protective behaviors and regular sun screen use - Annual FBSE Lentigines 11/04/2020 Assessment & Plan (11/04/2020 12:01 PM PRIVATE WEALTH ADVISOR): -Benign, reassurance Other specified dermatitis 11/04/2020 Seborrheic keratosis 11/04/2020 Neutropenia 10/28/2020 History of hepatocellular carcinoma 11/20/2018 Long-term use of immunosuppressant medication Benign essential HTN 08/28/2018 IPMN (intraductal papillary mucinous neoplasm) 0 05/23/2018 Fatty pancreas 05/08/2018 Right inguinal hernia 05/08/2018 Overview (05/08/2018): Indirect Diabetes mellitus type 2, uncontrolled 8 Pre-transplant evaluation for liver transplant 0 12/23/2017 Overview (12/23/2017): LISTED Diagnosis: BRADSHAW/HCC Referring Head Athletic Trainer: Andrew Alert: Will need renoportal at the [...] is the impression of this social media marketer that Robert Rico Cateanalia has several positive factors for Liver transplant candidacy including knowledge of illness, sufficient insurance coverage, stable financial situation for post transplant needs, and no concerns regarding substance abuse. SW concerns are patient's support system and discharge plan. Plan: reinforced ironworker to provide supportive services as needed. Patient appears to be a reasonable candidate for transplant from a psychosocial perspective, pending: - Post transplant arrangement forms are needed prior to being listed, with confirmation. Psychiatric Consult Recommended: No Transplant Catalogue Librarian: MIKY OVERTON RD: 24 Hour Recall/food frequency: eggs, chocolate milk, salad, spaghetti, hamburger, [place] - loaiza seared, mash potatoes, broccoli, corn cauliflower, apples, ham and mont[place]in, lettuce and tomato sandwich, Ramen noodles about [...] Transplant Date: 11/03/2017 Donor: Standard criteria donor [id number] CMV D-/R-, EBV D+/R+ Pre-Transplant Summary: ESLD [...] PCP Adjustments: Readmissions: Biopsies: Explant Liver, explant, [place] hepatectomy (A): - Cirrhosis (history of BRADSHAW) - Completely necrotic nodule in right lobe (4.0 cm) - Macroregenerative nodules, multifocal - Focal dysplasia (small and large cell changes) - Hepatocellular iron focally up to 4+ - No viable hepatocellular carcinoma identified Gallbladder, [place] hepatectomy (A): - Mild chronic cholecystitis Gallbladder, [...] cirrhosis. The PAS-D stain is negative for pduwy-6-qymqsqjstjj globules. The iron stain shows granular hepatocellular [...] from the prior study (LR 3). 2. Oftlav-bnjyw-gocvyy venous anastomosis, with unchanged aneurysmal dilatation at [...] liver without washout (LR 3). 2. Patent kxiipu-ifkak-cbisjb venous anastomosis, with unchanged aneurysmal dilatation of [...] recommended. Assessment & Plan (11/04/2020 12:01 PM PRIVATE WEALTH ADVISOR): -discussed inc risk NMSC/MM - Reviewed ABCDEs [...] Refill [facility] [address] [place] [address] Ramon Morales MD Refill Request 10/02/2024 Orders Only [facility] [address] [place] [address] Ramon Morales MD Long-term use of immunosuppressant medication; S/P liver transplant (HCC) 09/14/2024 Refill [facility] [address] [place] [phone] Ramon Morales MD MEDICATION REFILL 08/28/2024 Telephone [facility] [address] [place] [phone] Ramon Moralse MD Surgery Scheduling from Last 3 Months Immunizations Name Administration Dates Next Due TopTenREVIEWS primary monoval ent 12+ yr 0.3mL Purple [...] Sexual Orientation Straight 07/31/2024 7: 47 PM PRIVATE WEALTH ADVISOR Last Filed Vital Signs Vital Sign Reading Time Taken Comments Blood Pressure 137/83 07/21/2024 1:48 PM PRIVATE WEALTH ADVISOR Pulse 74 07/21/2024 1:48 PM PRIVATE WEALTH ADVISOR Temperature 36.4 C (97.5 F) 05/31/2023 1:01 PM CDT Respiratory Rate 18 07/21/2024 1:48 PM PRIVATE WEALTH ADVISOR Oxygen Saturation 99% 07/21/2024 1:48 PM PRIVATE WEALTH ADVISOR Inhaled Oxygen Concentration - - Weight 93.7 kg (206 lb 9.6 oz) 07/21/2024 1:48 P M PRIVATE WEALTH ADVISOR Height 182.9 cm (6') 07/21/2024 1:48 PM PRIVATE WEALTH ADVISOR Body Mass Index 28.02 07/21/2024 1:48 PM PRIVATE WEALTH ADVISOR Plan of Treatment Upcoming Encounters Date Type Department Care Team (Late st Contact Info) Description 02/02/2025 12:00 PM CDT Office Visit [facility] [address] [place] [address], [place] [phone] Ramon Morales MD [address] [place] [address] [place] [address] Health Maintenance Due Date Last Done Comments [...] COMPREHENSIVE METABOLIC PANEL Routine 07/15/2024 8:06 AM PRIVATE WEALTH ADVISOR Long-term use of immunosuppressant medication S/P liver transplant (HCC) ENDOSCOPY, COLON, SCREENING Routine 04/04/2020 9:37 AM CDT HEMOGLOBIN A1C 03/14/2020 8:46 AM CDT HEPATITIS C ANTIBODY Routine 09/11/2015 10:46 AM PRIVATE WEALTH ADVISOR from Last 3 Months or Most Recently Relevant to Health Maintenance Results * (ABNORMAL) COMPREHENSIVE METABOLIC PANEL (07/15/2024 8:06 AM PRIVATE WEALTH ADVISOR) Glucose 149(H) 65 - 99 mg/dL [facility] [...] 46 U/L [facility] Comment: Test Performed at: [facility] [address] [place] [address] KAMAR ALEXANDRE MD Blood BLOOD SPECIMEN / Unknown 07/15/2024 8:06 AM PRIVATE WEALTH ADVISOR 07/15/2024 8:07 AM PRIVATE WEALTH ADVISOR Ramon Morales MD LAB - CHEMISTRY LUIS ENRIQUE CELIS [facility] Organization Address City/State/[facility] Co de Phone Number [facility] [address] [place] [address] * ENDOSCOPY, COLON, SCREENING (04/04/2020 9:37 AM [...] and oxygen saturations were monitored continuously. The CF-[id number] was introduced through the anus and advanced to the cecum, identified by appendiceal orifice and ileocecal valve. The colonoscopy was performed without difficulty. The patient tolerated the procedure well. The quality of the bowel preparation was evaluated using the BBPS ([place] Bowel Preparation Scale) with scores of: Right [...] non-shelby portions. Procedure Code(s): --- Professional --- 36423, Colonoscopy, flexible; with removal of tumor(s), polyp(s), or other lesion(s) by snare technique 34232, 59, Colonoscopy, flexible; with biopsy, single or multiple Diagnosis Code(s): --- Professional --- Z12.11, Encounter for screening for malignant neoplasm of colon K63.5, Polyp of colon K62.1, Rectal polyp CPT copyright 2019 [employer]. All rights reserved. The codes documented in this report are preliminary and upon wheel worker review may be revised to meet current compliance requirements. _ Ramon Morales MD 04/04/2020 10:34:35 AM This report has been signed electronically. Note Initiated On: 04/04/2020 9:37 AM Number of Addenda: 0 [facility] [address] [place], [place] [id number] [place] [address] 04/04/2020 9:37 AM CDT Elda Rashid MD GI PROCEDURE ORDERAB LES Performing Organization Address [facility] Co de Phone Number [facility] * (ABNORMAL) HEMOGLOBIN A1C (03/14/2020 8:46 AM [...] of diabetes for children. Test Performed at: [facility] [address] [place] [address] OMARI HOFFMANN DO,MPH 03/14/2020 8:46 AM CDT 03/14/2020 8:47 AM CDT Ramon Morales MD LAB - CHEMISTRY LUIS ENRIQUE CELIS Performing Organization Address [facility] Co de Phone Number [facility] [address] [place] [address] * HEPATITIS C ANTIBODY (09/11/2015 10:46 AM PRIVATE WEALTH ADVISOR) Hepatitis C Antibody Non-react rsoendo Non-reac tive [facility] Comment: Hepatitis C Antibody [...] BLOOD SPECIMEN / Unknown 09/11/2015 10:46 AM PRIVATE WEALTH ADVISOR 09/11/2015 10:52 AM PRIVATE WEALTH ADVISOR Scott Lee MD LAB - CHEMISTRY LUIS ENRIQUE CELIS [facility] [address] [place] [address], [facility] [phone] from Last 3 Months or Most Recently Relevant to Health Maintenance Advance Directives Documents on File Type Date Recorded Patient Submarine Diver Expl anation Advance Directives and Livin g Will 07/17/2016 12:00 AM Advance Directives and Livin g Will 09/11/2015 12:00 AM Care Teams Mud Worker Relationship Specialty Start Date End Date Sharri Argueta DO [address] [place] [address] PCP - General 10/23/20 Qi Story, RN Registered Nurse 10/28/20
--- OUTSIDE RECORDS SUMMARY | 2024-11-23 14:30 | XMS_ITS | Referral Summary ---
Author Organization [facility] Address [address] [place] [address] Care Team Providers Care Plumbing Instructor Name Role Phone Sharri Argueta DO Primary Care Provider [phone] Qi Story RN Unavailable Unavailable Source Comments [facility],non-owned Affiliates and Associated Physician Practices is amultiple site organization consisting of ambulatory clinics and hospital sitesin [place], [place], [place] and [place]. This disclosure is being madepursuant to the Care Everywhere program and may not contain all information available regarding this patient. Last updated 18.[facility] Encounters Date Type Department Care Team Description 10/21/2024 Refill [facility] - GI [address] [place] [address], [place] [phone] Ramon Morales MD Refill Request 10/02/2024 Orders Only [facility] - [address] [address] Ramon Morales MD Long-term use of immunosuppressant medication; S/P liver transplant (HCC) 09/14/2024 Refill [facility] - GI [address] [place] [address], [place] [phone] Ramon Morales MD MEDICATION REFILL 08/28/2024 Telephone [facility] - Nephrology [address] [place] [address] Ramon Morales MD Surgery Scheduling from Last [...] 021 Assessment & Plan (11/04/2020 12:02 PM EARTH SCIENCE PROFESSOR): -L ankle/foot -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 -start TAC oint BID PRN w wet wraps, instructions provided Multiple benign melanocytic nevi of upper extremity, lower extremity, and trunk 11/04/2020 Assessment & Plan (11/04/2020 12:01 PM EARTH SCIENCE PROFESSOR): - None atypical or more concerning than others on exam today - Counseled on importance of daily sun protection, and monthly self skin exams - Reviewed ABCDEs of melanoma - Advised sun protective behaviors and regular sun screen use - Annual FBSE Lentigines 11/04/2020 Assessment & Plan (11/04/2020 12:01 PM EARTH SCIENCE PROFESSOR): -Benign, reassurance Other specified dermatitis 11/04/2020 Seborrheic keratosis 11/04/2020 Neutropenia 10/28/2020 History of hepatocellular carcinoma 11/20/2018 Long-term use of immunosuppressant medication Benign essential HTN 08/28/2018 IPMN (intraductal papillary mucinous neoplasm) 0 05/23/2018 Fatty pancreas 05/08/2018 Right inguinal hernia 05/08/2018 Overview (05/08/2018): Indirect Diabetes mellitus type 2, uncontrolled 8 Pre-transplant evaluation for liver transplant 0 12/23/2017 Overview (12/23/2017): LISTED Diagnosis: BRADSHAW/HCC Referring Shipwright: Andrew Alert: Will need renoportal at the [...] is the impression of this social work case manager that Robert Harrell has several positive factors for Liver transplant candidacy including knowledge of illness, sufficient insurance coverage, stable financial situation for post transplant needs, and no concerns regarding substance abuse. SW concerns are patient's support system and discharge plan. Plan: tin recovery worker to provide supportive services as needed. Patient appears to be a reasonable candidate for transplant from a psychosocial perspective, pending: - Post transplant arrangement forms are needed prior to being listed, with confirmation. Psychiatric Consult Recommended: No Transplant Board Writer: MIKY OVERTON RD: 24 Hour Recall/food frequency: eggs, chocolate milk, salad, spaghetti, hamburger, [place] - loaiza seared, mash potatoes, broccoli, corn cauliflower, apples, ham and taiwanese, lettuce and tomato sandwich, Ramen noodles about [...] Transplant Date: 11/03/2017 Donor: Standard criteria donor [id number] CMV D-/R-, EBV D+/R+ Pre-Transplant Summary: ESLD [...] Adjustments: Readmissions: Biopsies: Explant Liver, explant, [place] hepatectomy (A): - Cirrhosis (history of BRADSHAW) - Completely necrotic nodule in right lobe (4.0 cm) - Macroregenerative nodules, multifocal - Focal dysplasia (small and large cell changes) - Hepatocellular iron focally up to 4+ - No viable hepatocellular carcinoma identified Gallbladder, [place] hepatectomy (A): - Mild chronic cholecystitis Gallbladder, [...] cirrhosis. The PAS-D stain is negative for oralo-9-zjdcgvjtsvt globules. The iron stain shows granular hepatocellular [...] from the prior study (LR 3). 2. Geytml-emzjc-xqxakg venous anastomosis, with unchanged aneurysmal dilatation at [...] liver without washout (LR 3). 2. Patent ctgljn-derxs-mroekd venous anastomosis, with unchanged aneurysmal dilatation of [...] recommended. Assessment & Plan (11/04/2020 12:01 PM EARTH SCIENCE PROFESSOR): -discussed inc risk NMSC/MM - Reviewed ABCDEs [...] 12/23/2017 Immunizations Name Administration Dates Next Due UGAME primary monoval ent 12+ yr 0.3mL Purple [...] Sexual Orientation Straight 07/31/2024 7: 47 PM EARTH SCIENCE PROFESSOR Last Filed Vital Signs Vital Sign Reading Time Taken Comments Blood Pressure 137/83 07/21/2024 1:48 PM EARTH SCIENCE PROFESSOR Pulse 74 07/21/2024 1:48 PM EARTH SCIENCE PROFESSOR Temperature 36.4 C (97.5 F) 05/31/2023 1:01 PM CDT Respiratory Rate 18 07/21/2024 1:48 PM EARTH SCIENCE PROFESSOR Oxygen Saturation 99% 07/21/2024 1:48 PM EARTH SCIENCE PROFESSOR Inhaled Oxygen Concentration - - Weight 93.7 kg (206 lb 9.6 oz) 07/21/2024 1:48 P M EARTH SCIENCE PROFESSOR Height 182.9 cm (6') 07/21/2024 1:48 PM EARTH SCIENCE PROFESSOR Body Mass Index 28.02 07/21/2024 1:48 PM EARTH SCIENCE PROFESSOR Plan of Treatment Upcoming Encounters Date Type Department Care Team (Late st Contact Info) Description 02/02/2025 12:00 PM CDT Office Visit [facility] [place] [address] Ramon Morales MD [address] [place] [address] [place] [address] Goals Goal Patient Goal Type Associated Problems Recent Progress Patient-Stated? Author Medication Management General On track( 023 1:11 PM CDT) No Ayah Coleman RN Note: Expected end date: ongoing Interventions: Take all medications as prescribed Procedures Procedure Name Priority Date/Time Associated Diagnosis Comments COMPREHENSIVE METABOLIC PANEL Routine 07/15/2024 8:06 AM EARTH SCIENCE PROFESSOR Long-term use of immunosuppressant medication S/P liver transplant (HCC) ENDOSCOPY, COLON, SCREENING Routine 04/04/2020 9:37 AM CDT HEMOGLOBIN A1C 03/14/2020 8:46 AM CDT HEPATITIS C ANTIBODY Routine 09/11/2015 10:46 AM EARTH SCIENCE PROFESSOR from Last 3 Months or Most Recently Relevant to Health Maintenance Results * (ABNORMAL) COMPREHENSIVE METABOLIC PANEL (07/15/2024 8:06 AM EARTH SCIENCE PROFESSOR) Glucose 149(H) 65 - 99 mg/dL [facility] [...] 46 U/L [facility] Comment: Test Performed at: [facility] [address] [place] [address] KAMAR ALEXANDRE MD Blood BLOOD SPECIMEN / Unknown 07/15/2024 8:06 AM EARTH SCIENCE PROFESSOR 07/15/2024 8:07 AM EARTH SCIENCE PROFESSOR Ramon Morales MD LAB - CHEMISTRY ORDE LALITA [facility] [address] [place] [address] * ENDOSCOPY, COLON, SCREENING (04/04/2020 9:37 AM [...] and oxygen saturations were monitored continuously. The [id number] was introduced through the anus and advanced to the cecum, identified by appendiceal orifice and ileocecal valve. The colonoscopy was performed without difficulty. The patient tolerated the procedure well. The quality of the bowel preparation was evaluated using the BBPS (Deposit Bowel Preparation Scale) with scores of: Right [...] non-shelby portions. Procedure Code(s): --- Professional --- 01238, Colonoscopy, flexible; with removal of tumor(s), polyp(s), or other lesion(s) by snare technique 78620, 59, Colonoscopy, flexible; with biopsy, single or multiple Diagnosis Code(s): --- Professional --- Z12.11, Encounter for screening for malignant neoplasm of colon K63.5, Polyp of colon K62.1, Rectal polyp CPT copyright 2019 [employer]. All rights reserved. The codes documented in this report are preliminary and upon scheduling manager review may be revised to meet current compliance requirements. _ Ramon Morales MD 04/04/2020 10:34:35 AM This report has been signed electronically. Note Initiated On: 04/04/2020 9:37 AM Number of Addenda: 0 [facility] [address] [place] [address] [facility] 04/04/2020 9:37 AM CDT Elda Rashid MD GI PROCEDURE ORDERAB LES Performing Organization Address [facility]/ZIP Co de Phone Number [facility] * (ABNORMAL) HEMOGLOBIN A1C (03/14/2020 8:46 AM CDT) Pathologist [facility] Hemoglobin A1c 6.0(H) <5.7 % of total [...] of diabetes for children. Test Performed at: [facility] [address] [place] [address] OMARI HOFFMANN DO,MPH 03/14/2020 8:46 AM CDT 03/14/2020 8:47 AM CDT Ramon Morales MD LAB - CHEMISTRY LUIS ENRIQUE CELIS Performing Organization Address [facility] Co de Phone Number [facility] [address] [place] [address] * HEPATITIS C ANTIBODY (09/11/2015 10:46 AM EARTH SCIENCE PROFESSOR) [facility] Hepatitis C Antibody Non-react rosendo Non-reac tive [facility] Comment: Hepatitis C Antibody [...] BLOOD SPECIMEN / Unknown 09/11/2015 10:46 AM EARTH SCIENCE PROFESSOR 09/11/2015 10:52 AM EARTH SCIENCE PROFESSOR Scott Lee MD LAB - CHEMISTRY LUIS ENRIQUE CELIS Performing Organization Address City/[facility]/ZIP Co de Phone Number [facility] [address] [place] [address] from Last 3 Months or Most Recently Relevant to Health Maintenance Advance Directives Documents on File Type Date Recorded Patient Wet Process Assistant Head Miller Expl anation Advance Directives and Livin g Will 07/17/2016 12:00 AM Advance Directives and Livin g Will 09/11/2015 12:00 AM Care Teams Plumbing Instructor Relationship Specialty Start Date End Date Sharri Argueta DO [address] [place] [address] PCP - General 10/23/20 Qi Story, RN Registered Nurse 10/28/20
--- OUTSIDE RECORDS SUMMARY | 2024-11-23 14:30 | XMS_ITS | Patient Health Summary ---
Author Organization [facility] Address [address] [place] [address] Care Team Providers Care Strategic Advisor Name Role Phone Sharri Argueta DO Primary Care Provider [phone] Qi Story RN Unavailable Unavailable Note from [facility],non-owned Affiliates and Associated Physician Practices is amultiple site organization consisting of ambulatory clinics and hospital sitesin [place], [place], [place] and [place]. This disclosure is being madepursuant to the Care Everywhere program and may not contain all information available regarding this patient. Last updated 18.[facility] Allergies * Cephalexin(Nausea and/or Vomiting,Other) -Low [...] and hyponatremia 09/12/2015 12/23/2017 Immunizations * Covid TraNet'te primary monovalent 12+ yr 0.3mL Purple cap(Given [...] Sexual Orientation Straight 07/31/2024 7: 47 PM SILVER DESIGNER Last Filed Vital Signs Vital Sign Reading Time Taken Comments Blood Pressure 137/83 07/21/2024 1:48 PM SILVER DESIGNER Pulse 74 07/21/2024 1:48 PM SILVER DESIGNER Temperature 36.4 C (97.5 F) 05/31/2023 1:01 PM CDT Respiratory Rate 18 07/21/2024 1:48 PM SILVER DESIGNER Oxygen Saturation 99% 07/21/2024 1:48 PM SILVER DESIGNER Inhaled Oxygen Concentration - - Weight 93.7 kg (206 lb 9.6 oz) 07/21/2024 1:48 P M SILVER DESIGNER Height 182.9 cm (6') 07/21/2024 1:48 PM SILVER DESIGNER Body Mass Index 28.02 07/21/2024 1:48 PM SILVER DESIGNER Procedures * TACROLIMUS LEVEL(Performed 07/15/2024) Performed for [...] ABDOMEN MULTI PHASE W CONT(Performed 04/20/2016) * DQQVX-2-BVZHQDQJKLC BLOOD PHENOTYPING PANEL(Performed 03/26/2016) * CBC W [...] HEPATITIS B CORE ANTIBODY TOTAL(Performed 09/14/2015) * KXOTH-5-WHQCKKMRFON BLOOD(Performed 09/14/2015) * CERULOPLASMIN(Performed 09/14/2015) * BASIC [...] 09/11/2015) * HEPATITIS C ANTIBODY(Performed 09/11/2015) * CZEOC-1-SIJXDNNRFNT BLOOD(Performed 09/11/2015) * GLUCOSE ACCUCHECK(Performed 09/11/2015) * [...] Results * TACROLIMUS LEVEL (07/15/2024 8:06 AM SILVER DESIGNER) Only the most recent of82 resultswithin the time period is included. Tacrolimus 6.2 mcg/L [facility] Comment: No definitive therapeutic or toxic ranges have been established. Optimal blood drug levels are influenced by type of transplant, patient response, time post- transplant, co-administration of other drugs, and drug formulation. The following trough range is a suggested guideline: 5.0-20.0 mcg/L. Test Performed at: [facility] [place] [address] [facility] [place] [address] KAMAR ALEXANDRE MD Blood BLOOD SPECIMEN / Unknown 07/15/2024 8:06 AM SILVER DESIGNER 07/15/2024 8:07 AM SILVER DESIGNER Ramon Morales MD LAB - THERAPEUTIC DR NICK MONITORING ORDERABLES [facility] [address] [place] [address] * (ABNORMAL) CBC WITH DIFFERENTIAL (07/15/2024 8:06 AM SILVER DESIGNER) Only the most recent of132 resultswithin the [...] 0.6 % [facility] Comment: Test Performed at: [facility] [address] [place] [address] KAMAR ALEXANDRE MD Blood BLOOD SPECIMEN / Unknown 07/15/2024 8:06 AM SILVER DESIGNER 07/15/2024 8:07 AM SILVER DESIGNER Ramon Morales MD LAB - HEMATOLOGY ORD ERABLES Performing Organization Address [facility] Co de Phone Number [facility] [address] [place] [address] * (ABNORMAL) COMPREHENSIVE METABOLIC PANEL (07/15/2024 8:06 AM SILVER DESIGNER) Only the most recent of51 resultswithin the [...] 46 U/L [facility] Comment: Test Performed at: [facility] [address] [place] [address] KAMAR ALEXANDRE MD Blood BLOOD SPECIMEN / Unknown 07/15/2024 8:06 AM SILVER DESIGNER 07/15/2024 8:07 AM SILVER DESIGNER Ramon Morales MD LAB - CHEMISTRY LUIS ENRIQUE CELIS Performing Organization Address [facility] Co de Phone Number [facility] [address] [place] [address] * (ABNORMAL) DIFFERENTIAL MANUAL REFLXED III (02/12/2024 [...] perform a manual review. Test Performed at: [facility] [id number] [place] [phone] KAMAR ALEXANDRE MD 02/12/2024 7:43 AM CDT 02/12/2024 7:43 AM CDT Ramon Morales MD LAB - HEMATOLOGY ORD ERABLES [facility] [address] [place] [address] * MRI ABDOMEN W MRCP WWO CONT [...] IPMN. > Dictated by Reshma Hairston MD (residential door unit installer). I, Raymond Dean MD have personally reviewed and interpreted this examination/study. > Interpreting Provider: Raymond Dean MD on 12/06/2023 4:25 PM Narrative 12/06/2023 4:25 PM CDT EXAMINATION: MRI ABDOMEN W MRCP WWO CONT W3D DATE/TIME OF EXAM: 12/06/2023 11:29 AM, LOCATION [facility] HISTORY: I10: Benign essential HTN Z94.4: [...] OF EXAM: 12/06/2023 11:29 AM, LOCATION [facility] HISTORY: I10: Benign essential HTN Z94.4: [...] IPMN. > Dictated by Reshma Hairston MD (residential door unit installer). I, Raymond Dean MD have personally reviewed [...] LDL-C. Mick SS et al. BRODIE. 2013;310(19): 5980-0710 (http://education.[place]oda/faq/YFS612) CHOL/HDLC RATIO 4.0 <5.0 (calc) [facility] Non HDL Cholesterol 126 <130 mg/dL (calc) [facility] Comment: For patients with diabetes plus 1 major ASCVD risk factor, treating to a non-HDL-C goal of <100 mg/dL (LDL-C of <70 mg/dL) is considered a therapeutic option. Test Performed at: [facility] [address] [place] [address] KAMAR ALEXANDRE MD 05/22/2023 8:07 AM CDT 05/22/2023 8:07 AM CDT Ramon Morales MD LAB - CHEMISTRY ORDSherrill [facility] [address] [place] [address] * MRI ABDOMEN WWO CONTRAST (10/18/2022 10:40 AM SILVER DESIGNER) Only the most recent of10 resultswithin the time period is included. Anatomical Region Laterality Modality Abdomen Magnetic Resonan ce 10/18/2022 11:2 1 AM SILVER DESIGNER Impressions 10/18/2022 11:36 AM SILVER DESIGNER Impression: 1.Redemonstrated postoperative changes from orthotopic liver [...] Report dictated by FADY ESPARZA MD, MD (residential door unit installer). > Interpreting Provider: FADY ESPARZA MD on 10/18/2022 11:36 AM Narrative 10/18/2022 11:36 AM SILVER DESIGNER PROCEDURE: MRI ABDOMEN WWO CONTRAST, DATE/TIME OF EXAM: 10/18/2022 10:40 AM, LOCATION [facility] INDICATION: Z94.4: S/P liver transplant (CMS/HCC) [...] OF EXAM: 10/18/2022 10:40 AM, LOCATION [facility] INDICATION: Z94.4: S/P liver transplant (CMS/HCC) [...] confluence. Report dictated by FADY ESPARZA MD, (residential door unit installer). > Interpreting Provider: FADY ESPARZA MD on 10/18/2022 11:36 AM Ramon Morales MD MR ORDERABLES * CT CHEST WO CONTRAST (10/18/2022 9:10 AM SILVER DESIGNER) Only the most recent of9 resultswithin the time period is included. Anatomical Region Laterality Modality Chest Computed Tomogra phy 10/18/2022 10:1 8 AM SILVER DESIGNER Impressions 10/18/2022 4:41 PM SILVER DESIGNER Impression: Unchanged bilateral nodules measuring up to 2 mm. > Dictated by Jose Anthony MD, MD (residential door unit installer). > Dictated by Jose Anthony MD (Tilt Wall Supervisor) 10/18/2022 2:09 PM IRaymond MD have personally reviewed and interpreted this examination/study. > Interpreting Provider: Raymond Dean MD on 10/18/2022 4:41 PM Narrative 10/18/2022 4:41 PM SILVER DESIGNER PROCEDURE: CT CHEST WO CONTRAST, DATE/TIME OF EXAM: 10/18/2022 9:10 AM, LOCATION [facility] INDICATION: Z94.4: S/P liver transplant (CMS/HCC) [...] OF EXAM: 10/18/2022 9:10 AM, LOCATION [facility] INDICATION: Z94.4: S/P liver transplant (CMS/HCC) [...] > Dictated by Jose Anthony MD, MD (residential door unit installer). > Dictated by Jose Anthony MD (Tilt Wall Supervisor) 10/18/2022 2:09 PM I, Raymond Dean MD have personally reviewed and interpreted this examination/study. > Interpreting Provider: Raymond Dean MD on 10/18/2022 4:[address] Mor[address] MD [address] ORDERABLES * (ABNORMAL) PLATELET ESTIMATE REFLEXED (04/19/2022 7:55 AM CDT) Only the most recent of29 resultswithin the time period is included. [facility] Platelet Estimation DECREASED (A) ADEQUATE [facility] Comment: Test Performed at: [facility] [place] [address] [place] [address] PETER HOFFMANN DO,MPH 04/19/2022 7:55 AM CDT 04/19/2022 7:55 AM CDT Ramon Morales MD LAB - HEMATOLOGY ORD ERABLES [facility] [address] [place] [address] * CREATININE - POCT INTERFACED (10/17/2021 10:28 AM SILVER DESIGNER) Only the most recent of2 resultswithin the time period is included. [facility] Creatinine POCT 0.64 0.30 - 1.30 mg/dL 10/17/2021 10:30 AM [facility] eGFR >90 >90 mL/min/1.7 3 m2 10/17/2021 10:30 AM [facility] Blood BLOOD SPECIMEN / Unknown 10/17/2021 10:28 AM SILVER DESIGNER 10/17/2021 10:30 AM [facility] Ramon Morales MD LAB - POINT OF CARE ORDERABLES [facility] [address] [place] [address], [facility] [phone] * (ABNORMAL) BASIC METABOLIC PANEL (CALCIUM TOTAL) [...] approximately 13% higher for people identified as -Israeli. eGFR by MDRD 56(L) > OR = [...] 10.3 mg/dL [facility] Comment: Test Performed at: [facility] [address] [place] [address] PETER HOFFMANN DO,MPH Blood BLOOD SPECIMEN / Unknown 04/12/2021 7:54 AM CDT 04/12/2021 7:54 AM CDT Ramon Morales MD LAB - CHEMISTRY LUIS ENRIQUE SUSHMACALLI Performing Organization Address [facility] de Phone Number [facility] [phone] [place], [place] [phone] * HEPATIC FUNCTION PANEL (04/12/2021 7:54 AM [...] 46 U/L [facility] Comment: Test Performed at: [facility] [employer] [address] PETER HOFFMANN DO,MPH Blood BLOOD SPECIMEN / Unknown 04/12/2021 7:54 AM CDT 04/12/2021 7:54 AM CDT Ramon Morales MD LAB - CHEMISTRY LUIS ENRIQUE CELIS Performing Organization Address [facility] de Phone Number [facility] [address] [place] [address] * MAGNESIUM BLOOD (04/12/2021 7:54 AM CDT) Only the most recent of82 resultswithin the time period is included. Magnesium 1.9 1.5 - 2.5 mg/dL [facility] Comment: Test Performed at: [facility] [address] PETER HOFFMANN DO,MPH Blood BLOOD SPECIMEN / Unknown 04/12/2021 7:54 AM CDT 04/12/2021 7:54 AM CDT Ramon Morales MD LAB - CHEMISTRY LUIS ENRIQUE CELIS [facility] Organization Address City/State/ZIP Co de Phone Number [facility] [address] [place] [address] * BONE DENSITY AXIAL SKELETON(1OR MORE SITES)[id number] (11/16/2020 3:21 PM SILVER DESIGNER) Anatomical Region Laterality Modality Other 11/16/2020 5:01 PM SILVER DESIGNER Addenda Addendum by Jj Mancilla DO on 11/16/2020 5:27 PM SILVER DESIGNER ORIGINAL REPORT Examination: Dual energy x-ray absorptiometry [...] ordering physician and is also available on [employer], the Radiology Department's computerized picture archive system. [...] 5:24 PM . Narrative 11/16/2020 5:07 PM SILVER DESIGNER Examination: Dual energy x-ray absorptiometry of the [...] ordering physician and is also available on [employer], the Radiology Department's computerized picture archive system. [...] ordering physician and is also available on [employer], the Radiology Department's computerized picture archive system. [...] FACIAL BONES WO CONTRAST (11/16/2020 1:15 PM SILVER DESIGNER) Anatomical Region Laterality Modality Head Computed Tomogra phy 11/16/2020 1:18 PM SILVER DESIGNER Impressions 11/16/2020 8:11 PM SILVER DESIGNER IMPRESSION: 1.No acute intracranial hemorrhage, midline shift, [...] correlate clinically. Dictated by Mayur Victoria DO (student services vice president) I, Dr. RICO COLEMAN have personally reviewed and interpreted this examination/study. This report was electronically signed by RICO COLEMAN on 11/16/2020 8:11 PM . Narrative 11/16/2020 8:11 PM SILVER DESIGNER EXAMINATION: 1. CT OF THE HEAD WITHOUT [...] correlate clinically. Dictated by Mayur Victoria DO (student services vice president) Dr. RICO Reyes have personally reviewed and interpreted this examination/study. This report was electronically signed by RICO COLEMAN on 11/16/2020 8:11 PM . Teresa Robbyhannah CHIEF ADMINISTRATIVE OFFICER-[facility] CT ORDERABLES * CT HEAD WO CONTRAST (11/16/2020 1:15 PM SILVER DESIGNER) Only the most recent of5 resultswithin the time period is included. Anatomical Region Laterality Modality Head Computed Tomogra phy 11/16/2020 1:18 PM SILVER DESIGNER Impressions 11/16/2020 8:11 PM SILVER DESIGNER IMPRESSION: 1.No acute intracranial hemorrhage, midline shift, [...] correlate clinically. Dictated by Mayur Victoria DO (student services vice president) Dr. RICO Reyes have personally reviewed and interpreted this examination/study. This report was electronically signed by RICO COLEMAN on 11/16/2020 8:11 PM . Narrative 11/16/2020 8:11 PM SILVER DESIGNER EXAMINATION: 1. CT OF THE HEAD WITHOUT [...] correlate clinically. Dictated by Mayur Victoria DO (student services vice president) IDr. RICO have personally reviewed and interpreted this examination/study. This report was electronically signed by RICO COLEMAN on 11/16/2020 8:11 PM . Teresa [address] CT ORDERABLES * Laceration Repair (11/16/2020 12:46 PM SILVER DESIGNER) Paula Collins MD - 11/16/2020 12:46 PM SILVER DESIGNER Teresa Connor APRN-CNP 11/16/2020 6:38 PM Laceration [...] (ABNORMAL) CBC W/O DIFFERENTIAL (08/18/2020 8:22 AM SILVER DESIGNER) Only the most recent of22 resultswithin the [...] but greater than 30,000/uL. Test Performed at: [facility] [address] [place] [address] PETER HOFFMANN DO,MPH 08/18/2020 8:22 AM SILVER DESIGNER 08/18/2020 8:22 AM SILVER DESIGNER Ramon Morales MD LAB - HEMATOLOGY ORD ERABLES [facility] [address] [place] [address] * PATHOLOGY TISSUE (04/04/2020 10:08 AM CDT) Only the most recent of3 resultswithin the time period is included. Case Report Surgical Pathology Report Case: [id number] Authorizing Provider: Ramon Morales MD Collected: 04/04/2020 10:08 AM Ordering Location: [facility] ENDOSCOPY Received: 04/04/2020 12:17 PM Pathologist: Gretchen [...] name, Robert Harrell. Received in formalin, specimen A, is one pink-neal tissue fragment measuring 0.5 x 0.2 x 0.1 cm. Submitted in toto in cassette A1. Received in formalin, specimen B, is one pink-neal tissue fragment with focal area of hemorrhage measuring 0.3 x 0.2 x 0.1 cm. Submitted in toto in cassette B1. KK 04/05/2020 6:05 PM CDT [facility] Disclaimer The performance characteristics of all immunohistochemical and indirect immunofluorescence stains (if any) cited in this report were determined by the [facility]opathology [facility] of [facility]. Some of these tests were [...] attending (teaching) pathologist. 04/05/2020 6:05 PM CDT [facility] Embedded Images 04/05/2020 6:05 PM CDT [facility] Biopsy, NOS (Large Intestine, Right/Ascending [...] Morales MD LAB - PATHOLOGY/CYTO LOGY ORDERABLES [facility] [address] [place] [address], [facility] [phone] * ENDOSCOPY, COLON, SCREENING (04/04/2020 9:37 AM [...] and oxygen saturations were monitored continuously. The CF-[id number] was introduced through the anus and advanced to the cecum, identified by appendiceal orifice and ileocecal valve. The colonoscopy was performed without difficulty. The patient tolerated the procedure well. The quality of the bowel preparation was evaluated using the BBPS (Warren Bowel Preparation Scale) with scores of: Right [...] non-shelby portions. Procedure Code(s): --- Professional --- 87250, Colonoscopy, flexible; with removal of tumor(s), polyp(s), or other lesion(s) by snare technique 07130, 59, Colonoscopy, flexible; with biopsy, single or multiple Diagnosis Code(s): --- Professional --- Z12.11, Encounter for screening for malignant neoplasm of colon K63.5, Polyp of colon K62.1, Rectal polyp CPT copyright 2019 [employer]. All rights reserved. The codes documented in this report are preliminary and upon gas systems worker review may be revised to meet current compliance requirements. _ Ramon Morales MD 04/04/2020 10:34:35 AM This report has been signed electronically. Note Initiated On: 04/04/2020 9:37 AM Number of Addenda: 0 [facility] [address] [place], [place] [id number] [place] [address] 04/04/2020 9:37 AM CDT Elda Rashid MD GI PROCEDURE ORDERAB LES Performing Organization Address [facility] Co de Phone Number [facility] * (ABNORMAL) GLUCOSE - POINT OF CARE (04/04/2020 9:07 AM CDT) Only the most recent of2 resultswithin the time period is included. Glucose WB/POC 139(H) 70 - 115 mg/dL 04/04/2020 12:37 PM CDT [facility] Specimen Type Arterial/C apillary 04/04/2020 12:37 PM CDT [facility] Blood BLOOD SPECIMEN / Unknown 04/04/2020 9:07 AM CDT 04/04/2020 12:37 PM CDT Ramon Morales MD LAB - POINT OF CARE ORDERABLES Performing Organization Address City/[facility]/ZIP Co de Phone Number [address] [phone], [facility] [phone] * (ABNORMAL) HEMOGLOBIN A1C (03/14/2020 8:46 AM [...] of diabetes for children. Test Performed at: [facility] [address] [employer] [address] PETER HOFFMANN DO,MPH 03/14/2020 8:46 AM CDT 03/14/2020 8:47 AM CDT Ramon Morales MD LAB - CHEMISTRY ORDE RABLES Performing Organization Address [facility] Co de Phone Number [facility] [address] [place] [address] * (ABNORMAL) PLATELET ESTIMATION (02/16/2019 8:10 AM CDT) Platelet Estimation DECREASED (A) ADE[facility]ATE [facility] Comment: Test Performed at: [facility] [address] Ass[employer], [employer] [address] PETER HOFFMANN DO,MPH 02/16/2019 8:10 AM CDT 02/16/2019 8:15 AM CDT Ramon Morales MD LAB - HEMATOLOGY ORD ERABLES Performing Organization Address [facility] Co de Phone Number [facility] [phone] [place] [address] * ENDOSCOPY, COLON, SCREENING (12/08/2018 8:23 AM [...] malignant neoplasm of colon CPT copyright 2016 [employer]. All rights reserved. The codes documented in this report are preliminary and upon gas systems worker review may be revised to meet current compliance requirements. _ Ramon Morales MD 12/08/2018 9:39:14 AM This report has been signed electronically. Note Initiated On: 12/08/2018 8:23 AM Number of Addenda: [address] [place] [address] [facility] [place], [place] [id number] [place] [address] 12/08/2018 8:23 AM CDT Ramon Morales MD GI PROCEDURE ORDERAB LES Performing Organization Address [facility] Co de Phone Number [facility] * PHOSPHORUS BLOOD (11/24/2018 8:24 AM CDT) Only the most recent of66 resultswithin the time period is included. Phosphorus 3.4 2.5 - 4.5 mg/dL [facility] Comment: Test Performed at: [facility] [employer] [address] [place] [address] PETER HOFFMANN DO,MPH 11/24/2018 8:24 AM CDT 11/24/2018 8:24 AM CDT Ramon Morales MD LAB - CHEMISTRY LUIS ENRIQUE CELIS Performing Organization Address City/[facility] Co de Phone Number [facility] [address] [place] [address] * SLIDE SCAN HEMATOLOGY (11/10/2018 8:37 AM SILVER DESIGNER) Only the most recent of2 resultswithin the time period is included. Pathologist [facility] CBC Morphology NORMAL [facility] Comment: Ovalocytes 1 + Test Performed at: [facility] [employer] [address] [place] [address] PETER HOFFMANN DO,MPH 11/10/2018 8:37 AM SILVER DESIGNER 11/10/2018 8:37 AM SILVER DESIGNER Ramon Morales MD LAB - HEMATOLOGY ORD ERABLES Performing Organization Address [facility] Co de Phone Number [facility] [address] [place] [address] * CYTOMEGALOVIRUS DNA RT PCR QUANT BLOOD (10/13/2018 8:22 AM SILVER DESIGNER) Only the most recent of8 resultswithin the time period is included. Pathologist [facility] Source BLOOD [facility] Cytomegalovirus DNA Quantitative Real Time PCR <200 IU/mL [facility] Cytomegalovirus DNA Quantitative PCR <2.30 Log IU/mL [facility] Comment: REFERENCE RANGE: CMV DNA, QN PCR: <200 IU/mL CMV DNA, QN PCR: <2.30 Log IU/mL This test was developed and its analytical performance characteristics have been determined by [facility]. It has not been cleared or approved by the U.S. Food and Drug Administration. This assay has been validated pursuant to the CLIA regulations and is used for clinical purposes. Test Performed at: [facility], [address] [address] Zoltan DE SOUZA Blood BLOOD SPECIMEN / Unknown 10/13/2018 8:22 AM SILVER DESIGNER 10/13/2018 8:24 AM SILVER DESIGNER Ramon Morales MD LAB - CHEMISTRY ORDE RABCALLI Performing Organization Address City/[facility]/ZIP Co de Phone Number [facility] [address] [place] [address] * ALPHA FETOPROTEIN BLOOD TUMOR (07/07/2018 11:31 AM CDT) Only the most recent of9 resultswithin the time period is included. Pathologist [facility] Alpha-Fetoprotei n Tumor Marker 0.8 <6.1 ng/mL [facility] Comment: This test was performed using the Doug Ailey chemiluminescent method. Values obtained from different assay methods cannot be used interchangeably. AFP levels, regardless of value, should not be interpreted as absolute evidence of the presence or absence of disease. Test Performed at: [place] [address] PETER HOFFMANN DO,MPH 07/07/2018 11:3 1 AM CDT 07/07/2018 11:32 AM CDT Ramon Morales MD LAB - CHEMISTRY ORDSherrill RABCALLI Performing Organization Address [facility] Co de Phone Number [facility] [address] [place] [address] * TSH (04/14/2018 10:26 AM CDT) Only the most recent of2 resultswithin the time period is included. Pathologist [facility] TSH 1.43 0.40 - 4.50 mIU/L [facility] Comment: Test Performed at: [facility] [address] [place] [address] PETER HOFFMANN DO,MPH Blood BLOOD SPECIMEN / Unknown 04/14/2018 10:26 AM CDT 04/14/2018 10:27 AM CDT Sobeida Griffin APRN-HONORIO LAB - CHEMISTRY O RDERABLES Performing Organization Address [facility] Co de Phone Number [facility] [phone] [place] [address] * CYTOMEGALOVIRUS DNA RT-PCR QUANT (03/03/2018 10:05 [...] * * storage. * Test Performed at: [facility] [address] [place] [address] Zoltan DE SOUZA Microbiology BLOOD SPECIMEN / Unknown 03/03/2018 10:05 AM CDT 03/03/2018 10:06 AM CDT Sobeida Griffin CHIEF ADMINISTRATIVE OFFICER-[facility] LAB - MICROBIOLOG Y ORDERABLES [facility] [address] [place] [address] * CT ABDOMEN MULTI PHASE W CONT [...] follow-up recommended. Dictated by Ramon Sandoval MD (residential door unit installer). I, Dr. ISRAEL CORTÉS M.D. have personally [...] follow-up recommended. Dictated by Ramon Sandoval MD (residential door unit installer). I, Dr. ISRAEL CORTÉS M.D. have personally [...] CHEM PROFILE (EXTERNAL RESULT ENTRY) (12/12/2017) Pathologist [facility] Glucose (EXTERNAL RESULT) 198(H) mg/dl BUN (EXTERNAL [...] * (ABNORMAL) GLUCOSE ACCUCHECK (11/14/2017 11:15 AM SILVER DESIGNER) Only the most recent of129 resultswithin the time period is included. Pathologist [facility] Glucose, Fingerstick 262(H) 70-115mg/d L mg/dL [facility] ([place]) Comment:Wire Harness Assembler: KALI DOMINGOY 11/14/2017 11:1 5 AM SILVER DESIGNER Janae Diaz MD LAB - CHEMISTRY LUIS ENRIQUE CELIS [facility] Organization Address City/State/ZIP Co de Phone Number [facility] [place] ([place]) * XR ABDOMEN KUB PORTABLE (11/09/2017 6:39 AM SILVER DESIGNER) Only the most recent of5 resultswithin the time period is included. Anatomical Region Laterality Modality Other Impressions 11/09/2017 2:35 PM SILVER DESIGNER IMPRESSION: There are multiple mildly dilated small bowel loops measuring up to 4.9 cm in diameter which could represent ileus or obstruction, not significantly changed. The supine radiographs are technically suboptimal for evaluation of pneumoperitoneum. Postsurgical changes of kyphoplasty/vertebroplasty are present inferior lumbar vertebral bodies. Degenerative changes are noted in the spine. Skin staple lines projects over the [id number]. Report dictated by Jenni An MD (residential door unit installer). I, Dr. DASHAWN SUE MD have personally reviewed and interpreted this examination/study. This report was electronically signed by DASHAWN SUE MD on 11/09/2017 2:35 PM . Narrative 11/09/2017 2:35 PM SILVER DESIGNER EXAMINATION: PX ABDOMEN 1 VW HISTORY: Ileus [...] the spine. Skinstaple lines projects over the [id number]. Report dictated by Jenni An MD (residential door unit installer). I, Dr. DASHAWN SUE MD have personally reviewed and interpreted thisexamination/study. This report was electronically signed by DASHAWN SUE MD on 11/09/20172:35 PM . Janae Diaz MD DIAGNOSTIC IMAGING O RDERABLES * (ABNORMAL) PTT [facility] (11/08/2017 2:22 PM SILVER DESIGNER) Only the most recent of14 resultswithin the time period is included. APTT 20.3(L) 23.0 - 38.4 Seconds [facility] Comment:Suggested therapeuti c range for full dose I.V. heparin therapy for venous thromboembolism is 66.0-91.0 seconds. Blood specimen (specimen) BLOOD SPECIMEN / Unknown 11/08/2017 2:22 PM SILVER DESIGNER 11/08/2017 2:58 PM SILVER DESIGNER Narrative [facility] - 11/08/2017 3:37 PM SILVER DESIGNER Please ensure that the aPTT specimen is received in the clinical lab within 1 hour of collection if it is used for therapeutic heparin monitoring. Processing of heparinized specimens older than 1 hour may result in inaccurate test results. Is patient on Heparin, Argatroban or Dabigatran?->N Janae Diaz MD LAB - COAGULATION OR DERABLES Performing Organization Address [facility] Co de Phone Number [address] [phone] * CARDIOLIPIN ANTIBODY IGA (11/08/2017 2:22 PM SILVER DESIGNER) Anticardiolipin Antibody IgA <15.0 <15.0 APL [facility] Blood specimen (specimen) BLOOD SPECIMEN / Unknown 11/08/2017 2:22 PM SILVER DESIGNER 11/08/2017 2:58 PM SILVER DESIGNER Janae Diaz MD LAB - SEROLOGY ORDER MAYRA Performing Organization Address [facility] Co de Phone Number [address] [phone] * CARDIOLIPIN ANTIBODY IGM (11/08/2017 2:22 PM SILVER DESIGNER) Anticardiolipin Antibody IgM <15.0 <15.0 MPL [facility] Blood specimen (specimen) BLOOD SPECIMEN / Unknown 11/08/2017 2:22 PM SILVER DESIGNER 11/08/2017 2:58 PM SILVER DESIGNER Janae Diaz MD LAB - SEROLOGY ORDER MAYRA [address] [phone] * CARDIOLIPIN ANTIBODY IGG (11/08/2017 2:22 PM SILVER DESIGNER) Anticardiolipin Antibody IgG <15.0 <15.0 GPL [facility] Blood specimen (specimen) BLOOD SPECIMEN / Unknown 11/08/2017 2:22 PM SILVER DESIGNER 11/08/2017 2:58 PM SILVER DESIGNER Janae Diaz MD LAB - SEROLOGY ORDER MAYRA Performing Organization Address [facility] de Phone Number [address] [phone] * (ABNORMAL) ANTITHROMBIN III ACTIVITY (11/08/2017 2:22 PM SILVER DESIGNER) APTT 20.3(L) 23.0 - 38.4 Seconds [facility] Comment:Suggested therapeuti c range for full dose I.V. heparin therapy for venous thromboembolism is 66.0-91.0 seconds. Antithrombin Activity 88 85 - 130 U/dL [facility] Blood specimen (specimen) BLOOD SPECIMEN / Unknown 11/08/2017 2:22 PM SILVER DESIGNER 11/08/2017 2:58 PM SILVER DESIGNER Narrative [facility] - 11/12/2017 11:19 AM SILVER DESIGNER Is patient on Heparin, Argatroban or Dabigatran?->N Janae Diaz MD LAB - COAGULATION OR DERABLES Performing Organization Address City/[facility]/ZIP Co de Phone Number [address] [phone] * (ABNORMAL) PROTEIN C FUNCTIONAL (11/08/2017 2:22 PM SILVER DESIGNER) APTT 25.8 23.0 - 38.4 Seconds [facility] PT 13.7 12.1 - 14.8 Seconds [facility] Protein C Activity 57(L) 70 - 130 U/dL [facility] Comment: Protein C may be abnormally low in the acute phase of thrombosis, other acute illnesses, liver disease, nephrotic syndrome, vitamin K deficiency, Warfarin therapy, and estrogen-oral contraceptive use. Adult Normal Reference Range. Not applicable to children or adolescents less than age 18 years. INR 1.1 [facility] Blood specimen (specimen) BLOOD SPECIMEN / Unknown 11/08/2017 2:22 PM SILVER DESIGNER 11/08/2017 2:58 PM SILVER DESIGNER Narrative [facility] - 11/12/2017 10:53 AM SILVER DESIGNER Is the patient on Coumadin?->N Janae Diaz MD LAB - CHEMISTRY ORDE RABLES [address] [phone] * CHRIS VIPER VENOM DILUTE (11/08/2017 2:22 PM SILVER DESIGNER) APTT 25.8 23.0 - 38.4 Seconds [facility] PT 13.7 12.1 - 14.8 Seconds [facility] INR 1.1 [facility] LA-DRVVT Screen 0.9 <1.2 [facility] Interpretation Dilute RVV Negative Negative [facility] Blood specimen (specimen) BLOOD SPECIMEN / Unknown 11/08/2017 2:22 PM SILVER DESIGNER 11/08/2017 2:58 PM SILVER DESIGNER Janae Diaz MD LAB - [place] [address], [facility] [phone] * (ABNORMAL) FACTOR VIII ASSAY (11/08/2017 2:22 PM SILVER DESIGNER) Factor VIII Activity 679(H) 45 - 225 U/dL [facility] Comment: Biologic population variability within the [...] BLOOD SPECIMEN / Unknown 11/08/2017 2:22 PM SILVER DESIGNER 11/08/2017 2:58 PM SILVER DESIGNER Narrative [facility] - 11/11/2017 10:23 AM SILVER DESIGNER Is this a pre or post-infusion?->NA Janae Diaz MD LAB - COAGULATION OR DERABLES Performing Organization Address City/State/[facility] Co de Phone Number [address] [phone] * (ABNORMAL) PROTEIN S ACTIVITY (11/08/2017 2:22 PM SILVER DESIGNER) APTT 25.8 23.0 - 38.4 Seconds [facility] PT 13.7 12.1 - 14.8 Seconds [facility] Protein S Functional 65(L) 70 - 130 U/dL [facility] Comment: Functional Protein S assay is [...] year and older. INR 1.1 See Comment [facility] Blood specimen (specimen) BLOOD SPECIMEN / Unknown 11/08/2017 2:22 PM SILVER DESIGNER 11/08/2017 2:58 PM SILVER DESIGNER Narrative [facility] - 11/12/2017 10:53 AM SILVER DESIGNER Is the patient on Coumadin?->N Janae Diaz MD LAB - COAGULATION OR DERABLES [address] [phone] * HOMOCYSTEINE BLOOD QUANTITATIVE (11/08/2017 2:22 PM SILVER DESIGNER) Homocysteine 8.0 4.4 - 16.2 umol/L [facility] Blood specimen (specimen) BLOOD SPECIMEN / Unknown 11/08/2017 2:22 PM SILVER DESIGNER 11/08/2017 2:58 PM SILVER DESIGNER Janae Diaz MD LAB - CHEMISTRY ORDE RABLES Performing Organization Address City/[facility]/ZIP Co de Phone Number [address] [phone] * (ABNORMAL) TEG CITRATED KAOLIN (CK) (11/08/2017 2:22 PM SILVER DESIGNER) Only the most recent of2 resultswithin the time period is included. G-Clot Strength 4.1(L) 4.5 - 11.0 d/sc [facility] Interpretation TEG See Comment [facility] React-Time 2.3(L) 5.0 - 10.0 MIN [facility] K-Time 3.5(H) 1.0 - 3.0 MIN [facility] Angle A-BB 55.4 53.0 - 72.0 Degrees [facility] MA (CK) BB 45.3(L) 50.0 - 70.0 mm [facility] LY30 8.6(H) 0.0 - 8.0 % [facility] CI-Coagulation Index -0.9 -3.0 - 3.0 [facility] Blood specimen (specimen) 11/08/2017 2:22 PM SILVER DESIGNER 11/08/2017 2:30 PM SILVER DESIGNER Narrative [facility] - 11/08/2017 4:28 PM SILVER DESIGNER SEE BELOW TEG Kaolin Sample Type Interpretation [...] MD LAB - BLOOD BANK ORD JULIO [facility] Organization Address City/State/ZIP Co de Phone Number [facility] [address] [place] [address] * LAB MISCELLANEOUS TEST 2 (11/08/2017 2:22 PM SILVER DESIGNER) Reference Lab Results SEE SCANNED REPORT [facility] REF LAB NON INTERF Other (qualifier value) 11/08/2017 2:22 PM SILVER DESIGNER 11/08/2017 3:27 PM SILVER DESIGNER Narrative [facility] REF LAB NON INTERF - 11/13/2017 11:19 AM SILVER DESIGNER Test Name:->Protrombin Gene Mutation Reference Lab Info:->U DNA Lab Janae Diaz MD LAB - CHEMISTRY LUIS ENRIQUE CELIS Performing Organization Address [facility]/ZIP Co de Phone Number [facility] REF LAB NON INTERF [address] [place] [address] * LAB MISC TEST (11/08/2017 2:22 PM SILVER DESIGNER) Reference Lab Results SEE SCANNED REPORT [facility] REF LAB NON INTERF Other (qualifier value) 11/08/2017 2:22 PM SILVER DESIGNER 11/08/2017 3:27 PM SILVER DESIGNER Narrative [facility] REF LAB NON INTERF - 11/13/2017 11:18 AM SILVER DESIGNER Test Name:->Factor V Leiden Reference Lab Info:->U DNA LAB Janae Diaz MD LAB SEND OUT Performing Organization Address [facility] Co de Phone Number [facility] REF LAB NON INTERF [address] [place] [address] * PATHOLOGY/GENETICS HISTORICAL-ONBASE (11/08/2017) 11/08/2017 Historical Provider LAB - CHEMISTRY O RDERABLES Performing Organization Address [facility]/ZIP Co de Phone Number [facility] [address] * US LIVER TRANSPLANT (11/07/2017 5:34 PM SILVER DESIGNER) Only the most recent of2 resultswithin the time period is included. Anatomical Region Laterality Modality Other Impressions 11/08/2017 4:46 PM SILVER DESIGNER IMPRESSION: 1. Normal sonographic appearance of the transplant liver. 2. Patent hepatic vasculature. Dictated by Royce Carter MD (residential door unit installer). This report was approved by Royce Carter on 11/08/2017 9:47 AM . I, Dr. LESLY FERMIN M.D. have personally reviewed and interpreted this examination/study. This report was electronically signed by LESLY FERMIN M.D. on 11/08/2017 4:46 PM . Narrative 11/08/2017 4:46 PM SILVER DESIGNER EXAMINATION: 1. Limited right upper quadrant abdominal [...] hepatic vasculature. Dictated by Royce Carter MD (residential door unit installer). This report was approved by Royce Carter on 11/08/2017 9:47 AM . I, Dr. LESLY FERMIN M.D. have personally reviewed and interpreted thisexamination/study. This report was electronically signed by LESLY FERMIN M.D. on 11/08/20174:46 PM . Janae Diaz MD US ORDERABLES * NM HEPATOBILIARY WO CCK EF (11/07/2017 1:35 PM SILVER DESIGNER) Anatomical Region Laterality Modality Abdomen Other Impressions 11/07/2017 3:02 PM SILVER DESIGNER Procedure: Hepatobiliary scan. History: 62-year-old male with elevated bilirubin status post liver transplantation. Technique: 10.23 mCi of [id number] injected IV; dynamic images of the abdomen [...] status post livertransplantation. Technique: 10.23 mCi of [id number]-[id number] injected IV; dynamic images of theabdomen were [...] Janae Diaz MD NM ORDERABLES * PT-INR [facility] (11/07/2017 5:19 AM SILVER DESIGNER) Only the most recent of49 resultswithin the time period is included. PT 13.9 12.1 - 14.8 Seconds [facility] INR 1.1 See Comment [facility] Comment: Suggested therapeutic range for low-intensity coumadin therapy for venous thromboembolism prophylaxis is an INR of 2.0-3.0. For high risk patients (Mitral Valve Prosthesis, Atrial Fibrillation, history of TIA/stroke), suggested prophylactic therapeutic range is an INR of 2.5-3.5. Blood specimen (specimen) BLOOD SPECIMEN / Unknown 11/07/2017 5:19 AM SILVER DESIGNER 11/07/2017 5:24 AM SILVER DESIGNER Narrative [facility] - 11/07/2017 5:50 AM SILVER DESIGNER Is patient on Heparin, Argatroban or Dabigatran?->N Janae Diaz MD LAB - COAGULATION OR DERABLES [address] [phone] * LACTIC ACID BLOOD (11/04/2017 11:38 AM SILVER DESIGNER) Only the most recent of5 resultswithin the time period is included. [facility] Lactic Acid-Stat 0.6 0.5 - 2.2 mmol/L [facility] Blood specimen (specimen) BLOOD SPECIMEN / Unknown 11/04/2017 11:38 AM SILVER DESIGNER 11/04/2017 11:43 AM SILVER DESIGNER Janae Diaz MD LAB - CHEMISTRY ORDE RABLES [address] [phone] * (ABNORMAL) BLOOD GASES ART (11/04/2017 11:38 AM SILVER DESIGNER) Only the most recent of10 resultswithin the time period is included. Pathologist [facility] pH Arterial 7.40 7.35 - 7.45 [facility] pCO2 Arterial 34(L) 35 - 45 mmHg [facility] pO2 Arterial 75 71 - 95 mmHg [facility] HCO3 Arterial 20.3(L) 22.0 - 26.0 mmol/L [facility] TCO2 Arterial 21.3(L) 25.0 - 29.0 mmol/L [facility] Base Excess Arterial -3.9(L) -2.0 - 2.0 mmol/L [facility] Hemoglobin Arterial 10.7(L) 13.5 - 17.5 g/dL [facility] Oxyhemoglobin Arterial 92.6(L) 95.0 - 100.0 % [facility] Carboxyhemoglobin 0.6 0.0 - 3.0 % [facility] Methemoglobin 0.5 0.0 - 2.0 % [facility] FI O2 Arterial 40.0 % [facility] Blood specimen (specimen) BLOOD SPECIMEN / Unknown 11/04/2017 11:38 AM SILVER DESIGNER 11/04/2017 11:43 AM SILVER DESIGNER Janae Diaz MD LAB - BLOOD GASES OR DERABLES Performing Organization Address City/[facility]/ZIP Co de Phone Number [address] [phone] * (ABNORMAL) SVO2 FOR RECALIBRATION (11/04/2017 5:25 AM SILVER DESIGNER) Pathologist [facility] SVO2 for Recalibration 84.2(H) 66.0 - 77.0 % [facility] Blood specimen (specimen) BLOOD SPECIMEN / Unknown 11/04/2017 5:25 AM SILVER DESIGNER 11/04/2017 5:31 AM SILVER DESIGNER Janae Diaz MD LAB - CHEMISTRY ORDE RABLES [address] [phone] * (ABNORMAL) FIBRINOGEN ACTIVITY (11/03/2017 9:31 PM SILVER DESIGNER) Only the most recent of5 resultswithin the time period is included. Fibrinogen Clauss 127(L) 200 - 400 mg/dL [facility] Blood specimen (specimen) BLOOD SPECIMEN / Unknown 11/03/2017 9:31 PM SILVER DESIGNER 11/03/2017 9:36 PM SILVER DESIGNER Janae Diaz MD LAB - COAGULATION OR DERABLES [facility] [address] [place] [address] * XR CHEST 1VW PORTABLE (11/03/2017 9:23 PM SILVER DESIGNER) Only the most recent of7 resultswithin the time period is included. Anatomical Region Laterality Modality Chest Other Impressions 11/04/2017 1:59 PM SILVER DESIGNER IMPRESSION: The endotracheal tube tip superimposes midthoracic trachea. The gastric tube terminates in gastric body. A left internal jugular approach Ashburn-Akiko catheter terminates in main pulmonary artery. A drain/catheter traverses the upper abdomen. Lung volumes are small. Mild bibasilar atelectasis are again noted. Left lower lobe opacification may represents pleural effusion with underlying atelectasis/airspace disease. No pneumothorax is identified. The cardiomediastinal silhouette is unchanged. Dictated by Kristyn Calzada MD (residential door unit installer). I, Dr. WALTER BACA M.D. have personally reviewed and interpreted this examination/study. This report was electronically signed by WALTER BACA M.D. on 11/04/2017 1:59 PM . Narrative 11/04/2017 1:59 PM SILVER DESIGNER EXAMINATION: PX CHEST 1 VW HISTORY: cvc [...] is unchanged. Dictated by Kristyn Calzada MD (residential door unit installer). I, Dr. WALTER BACA M.D. have personally reviewed and interpreted thisexamination/study. This report was electronically signed by WALTER BACA M.D. on 11/04/20171:59 PM . Janae Diaz MD DIAGNOSTIC IMAGING O RDERABLES * LACTIC ACID WHOLE BLOOD (11/03/2017 7:17 PM SILVER DESIGNER) Only the most recent of5 resultswithin the time period is included. Lactic Acid Whole Blood 1.1 0.5 - 3.4 mmol/L [facility] Blood specimen (specimen) BLOOD SPECIMEN / Unknown 11/03/2017 7:17 PM SILVER DESIGNER 11/03/2017 7:22 PM SILVER DESIGNER Jay Jay Heredia MD LAB - CHEMISTRY LUIS ENRIQUE CELIS Performing Organization Address City/[facility]/ZIP Co de Phone Number [address] [phone] * CHLORIDE WHOLE BLOOD (11/03/2017 7:17 PM SILVER DESIGNER) Only the most recent of5 resultswithin the time period is included. Chloride Whole Blood 105 101 - 111 mmol/L [facility] Blood specimen (specimen) BLOOD SPECIMEN / Unknown 11/03/2017 7:17 PM SILVER DESIGNER 11/03/2017 7:22 PM SILVER DESIGNER Jay Jay Heredia MD LAB - CHEMISTRY LUIS ENRIQUE CELIS [address] [phone] * (ABNORMAL) CALCIUM IONIZED WHOLE BLOOD (11/03/2017 7:17 PM SILVER DESIGNER) Only the most recent of5 resultswithin the time period is included. Ionized Calcium Whole Blood 1.05 mmol/L [facility] Adjusted Ionized Calcium 1.07(L) 1.19 - 1.34 mmol/L [facility] pH Whole Blood 7.43 7.35 - 7.45 [facility] Blood specimen (specimen) BLOOD SPECIMEN / Unknown 11/03/2017 7:17 PM SILVER DESIGNER 11/03/2017 7:22 PM SILVER DESIGNER Jay Jay Heredia MD LAB - CHEMISTRY LUIS ENRIQUE CELIS [address] [phone] * POTASSIUM WHOLE BLD (11/03/2017 7:17 PM SILVER DESIGNER) Only the most recent of5 resultswithin the time period is included. Potassium Whole Blood 4.9 3.5 - 5.5 mmol/L [facility] Blood specimen (specimen) BLOOD SPECIMEN / Unknown 11/03/2017 7:17 PM SILVER DESIGNER 11/03/2017 7:22 PM SILVER DESIGNER Jay Jay Heredia MD LAB - CHEMISTRY LUIS ENRIQUE CELIS Performing Organization Address [facility]/[place] [address], [facility] [phone] * (ABNORMAL) SODIUM WHOLE BLOOD (11/03/2017 7:17 PM SILVER DESIGNER) Only the most recent of5 resultswithin the time period is included. Sodium Whole Blood 132(L) 135 - 145 mmol/L [facility] Blood specimen (specimen) BLOOD SPECIMEN / Unknown 11/03/2017 7:17 PM SILVER DESIGNER 11/03/2017 7:22 PM SILVER DESIGNER Jay Jay Heredia MD LAB - CHEMISTRY LUIS ENRIQUE CELIS Performing Organization Address City/[facility]/ZIP Co de Phone Number [address] [phone] * (ABNORMAL) GLUCOSE WHOLE BLOOD (11/03/2017 7:17 PM SILVER DESIGNER) Only the most recent of5 resultswithin the time period is included. Glucose Whole Blood 250(H) 70 - 110 mg/dL [facility] Blood specimen (specimen) BLOOD SPECIMEN / Unknown 11/03/2017 7:17 PM SILVER DESIGNER 11/03/2017 7:22 PM SILVER DESIGNER Jay Jay Heredia MD LAB - CHEMISTRY LUIS ENRIQUE CELIS [facility] Organization Address City/State/ZIP Co de Phone Number [facility] [address] [place] [address] * (ABNORMAL) BLOOD GASES ART COMPLETE [facility] OR (11/03/2017 6:20 PM SILVER DESIGNER) Only the most recent of3 resultswithin the time period is included. pH Arterial 7.41 7.35 - 7.45 [facility] pCO2 Arterial 40 35 - 45 mmHg [facility] pO2 Arterial 190(H) 71 - 95 mmHg [facility] HCO3 Arterial 24.5 22.0 - 26.0 mmol/L [facility] TCO2 Arterial 25.7 25.0 - 29.0 mmol/L [facility] Base Excess Arterial -0.1 -2.0 - 2.0 mmol/L [facility] Hemoglobin Arterial 11.2(L) 13.5 - 17.5 g/dL [facility] Oxyhemoglobin Arterial 97.5 95.0 - 100.0 % [facility] Carboxyhemoglobin 0.3 0.0 - 3.0 % [facility] Methemoglobin 0.3 0.0 - 2.0 % [facility] FI O2 Arterial 60.0 % [facility] Ionized Calcium Whole Blood 1.10 mmol/L [facility] Adjusted Ionized Calcium 1.11(L) 1.19 - 1.34 mmol/L [facility] Sodium Whole Blood 133(L) 135 - 145 mmol/L [facility] Potassium Whole Blood 5.5 3.5 - 5.5 mmol/L [facility] Chloride Whole Blood 106 101 - 111 mmol/L [facility] Glucose Whole Blood 230(H) 70 - 110 mg/dL [facility] Lactic Acid Whole Blood 1.3 0.5 - 3.4 mmol/L [facility] Blood specimen (specimen) 11/03/2017 6:20 PM SILVER DESIGNER 11/03/2017 6:20 PM SILVER DESIGNER Janae Diaz MD LAB - BLOOD GASES OR DERABLES Performing Organization Address [facility]/ZIP Co de Phone Number [address] [phone] * (ABNORMAL) URINALYSIS W/MICROSCOPIC NO CULTURE (11/03/2017 3:30 AM SILVER DESIGNER) Only the most recent of2 resultswithin the time period is included. Color UA Lala(A) Straw, Yellow, Colorless, Light Yellow [facility] Clarity UA Clear Clear [facility] Specific [place] UA 1.023 1.001 - 1.030 [facility] pH UA 6.5 5.0 - 8.0 [facility] Protein UA Trace(A) <=20 mg/dL [facility] Glucose UA >1000(A) Negative mg/dL [facility] Ketone UA Negative Negative mg/dL [facility] Bilirubin UA Negative Negative mg/dL [facility] Blood UA Negative Negative [facility] Nitrite UA Negative Negative [facility] Leukocyte Esterase Negative Negative [facility] Urobilinogen UA >12.0(H) <2.0 mg/dL [facility] RBC UA 3 0 - 8 /HPF [facility] WBC UA <1 0 - 2 /HPF [facility] Mucus UA Rare(A) None /LPF [facility] Hyaline Casts UA 1 0 - 2 /LPF [facility] Urine specimen (specimen) 11/03/2017 3:30 AM SILVER DESIGNER 11/03/2017 3:30 AM SILVER DESIGNER Janae Diaz MD LAB - URINALYSIS ORD ERABLES Performing Organization Address [facility]/ZIP Co de Phone Number [address] [phone] * DRUG ABUSE PANEL 10-20+ETHANOL URINE NO CONFIRM (11/03/2017 3:30 AM SILVER DESIGNER) Only the most recent of3 resultswithin the time period is included. Amphetamines Screen Urine Negative Negative: < 1000 ng/mL [facility] Barbiturates Screen Urine Negative Negative: < 200 ng/mL [facility] Benzodiazepine Screen Urine Negative Negative: < 200 ng/mL [facility] Opiates Urine Negative Negative: < 300 ng/mL [facility] Cocaine Metabolites Urine Negative Negative: < 300 ng/mL [facility] Phencyclidine Screen Urine Negative Negative: < 25 ng/ml [facility] Cannabinoids Screen Urine Negative Negative: <50 ng/mL [facility] Methadone Screen Urine Negative Negative: < 300 ng/mL [facility] Urine specimen (specimen) URINE / Unknown 11/03/2017 3:30 AM SILVER DESIGNER 11/03/2017 3:30 AM SILVER DESIGNER Narrative [facility] - 11/03/2017 3:52 AM SILVER DESIGNER The Urine Toxicology Screening Panel does not screen for Propoxyphene, Meprobamate, Carisoprodol, Trazodone, nhhc-ujm-kcrbedt medications and/or volatiles (Acetone, Isopropanol, Methanol or Ethylene Glycol). Ethanol, Salicylate, Acetaminophen, Tricyclic Antidepressants and several therapeutic drugs may be individually assayed in serum or plasma specimen. Toxicology testing by the [facility] is an aid to medical diagnosis and treatment of patients. No documented chain of custody was maintained. Results are intended to be used for clinical purposes only. Janae Diaz MD LAB - URINE CHEMISTR Y ORDERABLES [address] [phone] * TYPE + SCREEN PANEL (11/02/2017 9:16 PM SILVER DESIGNER) Only the most recent of5 resultswithin the time period is included. Typem A POS [facility] Antibody Screen NEG [facility] Blood specimen (specimen) 11/02/2017 9:16 PM SILVER DESIGNER 11/02/2017 9:32 PM SILVER DESIGNER Janae Diaz MD LAB - BLOOD BANK ORD ERABLES [facility] [address] * CROSSMATCH RBC LEUKOREDUCED (11/02/2017 9:16 PM SILVER DESIGNER) Only the most recent of3 resultswithin the time period is included. Unit RBC-WBCD [id number] returned [facility] BLOOD [facility] PRODUCTS (BEAKER) Unit RBC-WBCD [id number] returned H BLOOD BANK PRODUCTS (BEAKER) 11/02/2017 9:16 PM SILVER DESIGNER 11/02/2017 9:33 PM SILVER DESIGNER Narrative H BLOOD BANK PRODUCTS (BEAKER) - 11/02/2017 9:16 PM SILVER DESIGNER # of Units->2 Janae Diaz MD LAB - BLOOD BANK ORD WHILLBLES [facility] BLOOD BANK PRODUCTS (BEAKER) * PREPARE FFP UNIT(S) (11/02/2017 9:16 PM SILVER DESIGNER) Unit FFP [id number] transfused [facility]LOOD [facility] PRODUCTS (BEAKER) Unit ABO AB [facility] (BEAKER) Unit Rh POS [facility] PR[facility] (BEAKER) Unit Number [id number] [facility] (BEAKER) Unit Status Transfused [facility] BLO OD BANK PRODUCTS (BEAKER) Unit FFP [id number] transfused [facility]LOOD [facility] PRODUCTS (BEAKER) Unit ABO AB [facility] PRODU[facility] (BEAKER) Unit Rh POS [facility] PRODUCTS (BEAKER) Unit Number [id number] [facility] PR[facility] (BEAKER) Unit Status Transfused [facility] BLO OD BANK PRODUCTS (BEAKER) Unit FFP [id number] returned [facility] PRODU[facility] (BEAKER) Unit FFP [id number] returned [facility] PRODU[facility] (BEAKER) Unit FFP [id number] returned [facility]LOOD [facility] PRODUCTS (BEAKER) Unit FFP [id number] returned [facility] BLOOD B[facility] PRODUCTS (BEAKER) 11/02/2017 9:16 PM SILVER DESIGNER 11/02/2017 9:33 PM SILVER DESIGNER Narrative [facility] BLOOD [facility] PRODUCTS ([facility]) - 11/02/2017 9:16 PM SILVER DESIGNER # of Units->6 Janae Diaz MD LAB - BLOOD BANK ORD ERABLES [facility] BLOOD [facility] PRODUCTS ([facility]) * HLA XM SEROLOGIC DONOR (11/02/2017 3:17 PM SILVER DESIGNER) XM B Donor ID [id number] [facility] ([facility]) XM B Relation Donor [facility] ([facility]) XM Test Date 11/04/2017 [facility] ([facility]) XM T Tyson Neg S [facility] ([facility]) XM B Serum Date 11/02/2017 [facility] ([facility]) Comment: This test was developed and its performance characteristics determined bythe [facility]. It has not been cleared or approved by theU.S. Food and Drug Administration. The FDA has determined that suchclearance or approval is not necessary. This test is used for clinicalpurposes. It should not be regarded as investigational or for research.This laboratory is certified under the Clinical Laboratory ImprovementAmendments of 1988 (CLIA-88) as qualified to perform high complexityclinical laboratory testing. CLIA ID# [id number] at: [facility], [address] @ [place] [address]Lcc Director: Andrew Jones MD, XM B Tyson Neg S [facility] ([facility]) XM T [facility] Neg [facility] ([facility]) XM B [facility]HG Neg [facility] ([facility]) Blood specimen (specimen) BLOOD SPECIMEN / Unknown 11/02/2017 3:17 PM SILVER DESIGNER 11/04/2017 3:17 PM SILVER DESIGNER Janae Diaz MD LAB - BLOOD BANK ORD ERABLES [facility] ([facility]) [address] [address], [place] * EKG 12-LEAD (11/02/2017 12:00 AM SILVER DESIGNER) Only the most recent of3 resultswithin the time period is included. Pathologist [facility] RADIOLOGY Comment: Exam Date/Time: Nov 02 [...] leads Confirmed by Cristhian Chavira, LGeronimo ([id number]), acquisitions editor PATRICIA STERLING ([id number]) on 11/06/2017 12:15:11 PM Referred By: REFERRING NO Confirmed By:Aniya Chavira M.D. 11/02/2017 Janae Diaz MD ECG ORDERABLES Performing Organization Address City/[facility]/ZIP Co de Phone Number [facility] RADIOLOG[facility] * BLOOD TYPE ABO+ RH PANEL (08/06/2017 12:00 PM SILVER DESIGNER) Only the most recent of2 resultswithin the time period is included. Pathologist [facility] Typem A POS [facility] Blood specimen (specimen) BLOOD SPECIMEN / Unknown 08/06/2017 12:00 PM SILVER DESIGNER 08/06/2017 12:30 PM SILVER DESIGNER Tino Santiago MD LAB - BLOOD BANK ORD ERABLES Performing Organization Address City/[facility]/ZIP Co de Phone Number [facility] [address] * (ABNORMAL) URINALYSIS REFLEX TO MICROSCOPIC NO CULTURE (08/06/2017 11:43 AM SILVER DESIGNER) Only the most recent of2 resultswithin the time period is included. Pathologist [facility] Color UA Lala(A) Straw, Yellow, Colorless, Light Yellow [facility] Clarity UA Clear Clear [facility] Specific [place] UA 1.023 1.001 - 1.030 [facility] pH UA 5.5 5.0 - 8.0 [facility] Protein UA Trace(A) <=20 mg/dL [facility] Glucose UA 300(A) Negative mg/dL [facility] Ketone UA Negative Negative mg/dL [facility] Bilirubin UA Negative Negative mg/dL [facility] Blood UA Negative Negative [facility] Nitrite UA Negative Negative [facility] Leukocyte Esterase Negative Negative [facility] Urobilinogen UA 3.0(H) <2.0 mg/dL [facility] RBC UA 2 0 - 8 /HPF [facility] WBC UA 1 0 - 2 /HPF [facility] Bacteria UA Rare Rare, Occasional, None /HPF [facility] Hyaline Casts UA 1 0 - 2 /LPF [facility] Urine specimen (specimen) URINE SPECIMEN OBTAINED BY CLEAN CATCH PROCEDURE / Unknown 08/06/2017 11:43 AM SILVER DESIGNER 08/06/2017 12:23 PM SILVER DESIGNER Tino Santiago MD LAB - URINALYSIS ORD ERABLES [address] [phone] * QUANTIFERON TB-GOLD INC (08/06/2017 11:43 AM SILVER DESIGNER) Only the most recent of2 resultswithin the time period is included. QuantiFERON TB Gold Negative Negative [facility] ([facility]) Comment: The specimen received for QuantiFERON testing was incubated by the ordering institution. Specific procedures outlined in our Directory of Services and in the package insert for the QuantiFERON Gold (In Tube) test must be followed to enable for proper stimulation of cells for the production of interferon gamma. QuantiFERON Criteria Comment [facility] ([facility]) Comment: To be considered positive a specimen [...] values. QuantiFERON TB Antigen Value 0.11 IU/mL [facility] ([facility]) QuantiFERON Nil Value 0.37 IU/mL [facility] ([facility]) QuantiFERON Mitogen Value 5.08 IU/mL [facility] ([facility]) QFT TB Ag minus Nil Value <0.00 IU/mL [facility] ([facility]) Interpretation Comment [facility] ([facility]) Comment: The QuantiFERON TB Gold (in Tube) [...] BLOOD SPECIMEN / Unknown 08/06/2017 11:43 AM SILVER DESIGNER 08/06/2017 12:27 PM SILVER DESIGNER Narrative [facility] ([facility]) - 08/11/2017 5:07 PM SILVER DESIGNER Performed at: [address] [id number] Hose Turner: Tio Segal PhD, Phone: [phone] Tino Santiago MD LAB - SEROLOGY ORDER MARYA [facility] ([facility]) [address] [place] [address], [facility] * CANCER ANTIGEN (CA) 19-9 (08/06/2017 11:43 AM SILVER DESIGNER) Only the most recent of2 resultswithin the time period is included. CA 19-9 22.830 <35.000 U/mL [facility] Comment: CA 19-9 values will vary depending on testing procedure used. Results are not comparable across different methods. CA 19-9 values obtained in [facility] using a Tulio Lyn Immunoassay. Blood specimen (specimen) BLOOD SPECIMEN / Unknown 08/06/2017 11:43 AM SILVER DESIGNER 08/06/2017 12:26 PM SILVER DESIGNER Tino Santiago MD LAB - CHEMISTRY ORDE COX BRANSONLES Performing Organization Address City/[facility]/ZIP Co de Phone Number [facility] [address] [phone] * NICOTINE + METABOLITES BLOOD (08/06/2017 11:43 AM SILVER DESIGNER) Only the most recent of2 resultswithin the time period is included. Pathologist [facility] Nicotine None Detected ng/mL [facility] ([facility]) Comment: Nicotine levels greater than 2.0 are consistent with the use of tobacco or tobacco cessation products. Cotinine None Detected ng/mL [facility] ([facility]) Comment: Cotinine levels greater than 20.0 are consistent with the use of tobacco or tobacco cessation products. Blood specimen (specimen) BLOOD SPECIMEN / Unknown 08/06/2017 11:43 AM SILVER DESIGNER 08/06/2017 12:26 PM SILVER DESIGNER Narrative [facility] ([facility]) - 08/09/2017 9:17 AM SILVER DESIGNER Performed at: [address] [place] [id number] Hose Turner: Peter Treadwell MD, Phone: [phone] Tino Santiago MD LAB - CHEMISTRY LUIS ENRIQUE CELIS Performing Organization Address [facility] Co de Phone Number [facility] ([facility]) [address] [place] [address] * HIV-1 HIV-2 ANTIGEN/ANTIBODY (08/06/2017 11:43 AM SILVER DESIGNER) Only the most recent of2 resultswithin the time period is included. [facility] HIV Antigen/Antibod y 1 & 2 Non-reacti ve Non-react rosendo [facility] Comment: Neither HIV-1 p24 Antigen nor HIV-1/HIV-2 Antibodies are detected. Blood specimen (specimen) BLOOD SPECIMEN / Unknown 08/06/2017 11:43 AM SILVER DESIGNER 08/06/2017 12:24 PM SILVER DESIGNER Tino Santiago MD LAB - HEMATOLOGY CARRI KIM Performing Organization Address City/[facility]/ZIP Co de Phone Number [facility] [place] [address], [facility] [phone] * PSA FREE + TOTAL PANEL (08/06/2017 11:43 AM SILVER DESIGNER) Only the most recent of2 resultswithin the time period is included. PSA Total <0.1 0.0 - 4.0 ng/mL [facility] PSA Free <0.10 0.00 - 0.50 ng/mL [facility] PSA % Free See Comment % [facility] Comment:Unable to calculate % Free PSA due to Free and/or Total PSA concentration(s) being <0.1 ng/mL. Blood specimen (specimen) BLOOD SPECIMEN / Unknown 08/06/2017 11:43 AM SILVER DESIGNER 08/06/2017 12:24 PM SILVER DESIGNER Tino Santiago MD LAB - CHEMISTRY LUIS ENRIQUE CELIS [address] [phone] * RPR (08/06/2017 11:43 AM SILVER DESIGNER) Only the most recent of2 resultswithin the time period is included. RPR Non-reacti ve Non-reacti ve [facility] Blood specimen (specimen) BLOOD SPECIMEN / Unknown 08/06/2017 11:43 AM SILVER DESIGNER 08/06/2017 12:24 PM SILVER DESIGNER Tino Santiago MD LAB - CHEMISTRY LUIS ENRIQUE CELIS Performing Organization Address City/[facility]/ZIP Co de Phone Number [address] [phone] * RUBEOLA ANTIBODY IGG (08/06/2017 11:43 AM SILVER DESIGNER) Only the most recent of2 resultswithin the time period is included. Measles (Rubeola) Antibody IgG >300.0 Immune >29.9 AU/mL [facility] Comment: Negative <25.0 Equivocal 25.0 - 29.9 Positive >29.9 Presence of antibodies to Rubeola is presumptive evidence of immunity except when acute infection is suspected. Blood specimen (specimen) BLOOD SPECIMEN / Unknown 08/06/2017 11:43 AM SILVER DESIGNER 08/06/2017 12:26 PM SILVER DESIGNER Narrative [facility] - 08/07/2017 3:18 PM SILVER DESIGNER Performed at: [address] [place] [address] [id number] Hose Turner: Tio Segal PhD, Phone: [phone] Tino Santiago MD LAB - CHEMISTRY LUIS ENRIQUE CELIS Performing Organization Address [facility] de Phone Number [address] * VARICELLA ZOSTER ANTIBODY IGG (08/06/2017 11:43 AM SILVER DESIGNER) [facility] Varicella zoster Virus Antibody IgG >4000 Immune >165 index [facility] Comment: Negative <135 Equivocal 135 - 165 Positive >165 A positive result generally indicates exposure to the pathogen or administration of specific immunoglobulins, but it is not indication of active infection or stage of disease. Blood specimen (specimen) BLOOD SPECIMEN / Unknown 08/06/2017 11:43 AM SILVER DESIGNER 08/06/2017 12:26 PM SILVER DESIGNER Narrative [facility] - 08/07/2017 3:18 PM SILVER DESIGNER Performed at: [address] [place] [address] [id number] Hose Turner: Tio Segal PhD, Phone: [phone] Tino Santiago MD LAB - CHEMISTRY LUIS ENRIQUE CELIS Performing Organization Address [facility] de Phone Number [address] * (ABNORMAL) TRANSFERRIN (08/06/2017 11:43 AM SILVER DESIGNER) Only the most recent of3 resultswithin the time period is included. [facility] Transferrin 161(L) 174 - 382 mg/dL [facility] Transferrin Saturation % 80(H) 16 - 50 % [facility] Blood specimen (specimen) BLOOD SPECIMEN / Unknown 08/06/2017 11:43 AM SILVER DESIGNER 08/06/2017 12:24 PM SILVER DESIGNER Tino Santiago MD LAB - CHEMISTRY LUIS ENRIQUE CELIS Performing Organization Address [facility]/ZIP Co de Phone Number [facility] [address] [phone] * RUBELLA ANTIBODY IGG (08/06/2017 11:43 AM SILVER DESIGNER) Only the most recent of2 resultswithin the time period is included. [facility] Rubella Antibody IgG Quantitative >33.00 Immune >0.99 index [facility] Comment: Non-immune <0.90 Equivocal 0.90 - 0.99 Immune >0.99 Blood specimen (specimen) BLOOD SPECIMEN / Unknown 08/06/2017 11:43 AM SILVER DESIGNER 08/06/2017 12:24 PM SILVER DESIGNER Narrative [facility] - 08/07/2017 3:10 AM SILVER DESIGNER Performed at: [address] [place] [address] [id number] Hose Turner: Tio Segal PhD, Phone: [phone] Tino Santiago MD LAB - SEROLOGY ORDER MAYRA Performing Organization Address [facility] Co de Phone Number [facility] [address] [place] [address] * HEPATITIS B CORE ANTIBODY (08/06/2017 11:43 AM SILVER DESIGNER) Only the most recent of3 resultswithin the time period is included. [facility] HBc Antibody Total Non-reacti ve Non-reacti ve [facility] Blood specimen (specimen) BLOOD SPECIMEN / Unknown 08/06/2017 11:43 AM SILVER DESIGNER 08/06/2017 12:24 PM SILVER DESIGNER Tino Santiago MD LAB - CHEMISTRY LUIS ENRIQUE CELIS Performing Organization Address City/[facility]/[place] [address], [facility] [phone] * ALCOHOL ETHYL BLOOD (08/06/2017 11:43 AM SILVER DESIGNER) Only the most recent of3 resultswithin the time period is included. [facility] Interpretation Ethanol None Detected None Detected mg/dL [facility] Comment:Ethanol levels less than 10 mg/dL are resulted as None detected. Blood specimen (specimen) BLOOD SPECIMEN / Unknown 08/06/2017 11:43 AM SILVER DESIGNER 08/06/2017 12:24 PM SILVER DESIGNER Tino Santiago MD LAB - CHEMISTRY LUIS ENRIQUE CELIS [address] [phone] * (ABNORMAL) FERRITIN (08/06/2017 11:43 AM SILVER DESIGNER) Only the most recent of3 resultswithin the time period is included. Pathologist [facility] Ferritin 323(H) 22 - 275 ng/mL [facility] Blood specimen (specimen) BLOOD SPECIMEN / Unknown 08/06/2017 11:43 AM SILVER DESIGNER 08/06/2017 12:24 PM SILVER DESIGNER Tino Santiago MD LAB - CHEMISTRY LUIS ENRIQUE CELIS Performing Organization Address [facility] Co de Phone Number [address] [phone] * CYTOMEGALOVIRUS ANTIBODY IGG BLOOD (08/06/2017 11:43 AM SILVER DESIGNER) Only the most recent of2 resultswithin the time period is included. Pathologist [facility] Cytomegalovirus Antibody IgG <0.60 0.00 - 0.59 U/mL [facility] Comment: Negative <0.60 Equivocal 0.60 - 0.69 Positive >0.69 Blood specimen (specimen) BLOOD SPECIMEN / Unknown 08/06/2017 11:43 AM SILVER DESIGNER 08/06/2017 12:24 PM SILVER DESIGNER Narrative [facility] - 08/08/2017 5:12 AM SILVER DESIGNER Performed at: [address] [place] [address] [address] [place], [place] [id number] Hose Turner: Tio Segal PhD, Phone: [phone] Tino Santiago MD LAB - CHEMISTRY LUIS ENRIQUE CELIS Performing Organization Address City/[facility]/ZIP Co de Phone Number [facility] [address] * MUMPS ANTIBODY IGG (08/06/2017 11:43 AM SILVER DESIGNER) Only the most recent of2 resultswithin the time period is included. Pathologist [facility] Mumps Virus Antibody IgG >300.0 Immune >10.9 AU/mL [facility] Comment: Negative <9.0 Equivocal 9.0 - 10.9 Positive >10.9 A positive result generally indicates past exposure to Mumps virus or previous vaccination. Blood specimen (specimen) BLOOD SPECIMEN / Unknown 08/06/2017 11:43 AM SILVER DESIGNER 08/06/2017 12:25 PM SILVER DESIGNER Narrative [facility] - 08/07/2017 3:18 PM SILVER DESIGNER Performed at: - [facility] [address] [place], [place] [id number] Hose Turner: Tio Segal PhD, Phone: [phone] Tino Santiago MD LAB - CHEMISTRY LUIS ENRIQUE CELIS [facility] Organization Address City/State/ZIP Co de Phone Number [facility] [address] * (ABNORMAL) ÁNGEL-VOGEL VIRUS ANTIBODY TO VCA IGG (08/06/2017 11:43 AM SILVER DESIGNER) Only the most recent of2 resultswithin the time period is included. [facility] Ángel-Vogel Virus Antibody To Viral Capsid Antigen IgG >750.0(H) 0.0 - 21.9 U/mL [facility] ([facility]) Comment: INTERPRETIVE INFORMATION: Ángel-Vogel Virus Antibody to Viral Capsid Antigen, IgG 17.9 U/mL or less.......Not Detected 18.0-21.9 U/mL..........Indeterminate - Repeat testing in 10-14 days may be helpful. 22.0 U/mL or greater....Detected Interpretive information regarding serologic features of EBV-associated diseases is available at [email or web address]. Performed by [facility], [address] [place] [address],[place] [id number] [email or web address], Yoandy Martinez MD, Lab. Director Blood specimen (specimen) BLOOD SPECIMEN / Unknown 08/06/2017 11:43 AM SILVER DESIGNER 08/06/2017 12:26 PM SILVER DESIGNER Tino Santiago MD LAB - CHEMISTRY LUIS ENRIQUE CELIS [facility] ([facility]) [address] [place] [address], [facility] * HEPATITIS B SURFACE ANTIGEN W RFLX CONFIRMATION (08/06/2017 11:43 AM SILVER DESIGNER) Only the most recent of2 resultswithin the time period is included. Hepatitis B Virus Surface Antigen Screen Negative Negative [facility] Blood specimen (specimen) BLOOD SPECIMEN / Unknown 08/06/2017 11:43 AM SILVER DESIGNER 08/06/2017 12:24 PM SILVER DESIGNER Narrative [facility] - 08/07/2017 5:14 AM SILVER DESIGNER Performed at: - [facility] [address] [place], [place] [id number] Hose Turner: Tio Segal PhD, Phone: [phone] Tino Santiago MD LAB - CHEMISTRY LUIS ENRIQUE CELIS Performing Organization Address [facility] Co de Phone Number [facility] [address] [place] [address] * XR PANOREX (08/06/2017 11:29 AM SILVER DESIGNER) Only the most recent of2 resultswithin the time period is included. Anatomical Region Laterality Modality Head Other Impressions 08/07/2017 3:16 PM SILVER DESIGNER IMPRESSION: No evidence of periapical abscess. Dictated by Vivek Butler MD (residential door unit installer). I, Dr. WALTER BACA M.D. have personally reviewed and interpreted this examination/study. This report was electronically signed by WALTER BACA M.D. on 08/07/2017 3:16 PM . Narrative 08/07/2017 3:16 PM SILVER DESIGNER EXAMINATION: Panorex HISTORY: pre liver eval FINDINGS: [...] periapical abscess. Dictated by Vivek Butler MD (residential door unit installer). I, Dr. WALTER BACA M.D. have personally reviewed and interpreted thisexamination/study. This report was electronically signed by WALTER BACA M.D. on 08/07/20173:16 PM . Tino Santiago MD DIAGNOSTIC IMAGING O RDERABLES * ECHO STRESS TEST W DOBUTAMINE (08/06/2017 12:00 AM SILVER DESIGNER) Only the most recent of2 resultswithin the time period is included. Anatomical Region Laterality Modality Other 08/06/2017 Tino Santiago MD ECHOCARDIOGRAPHY RAD IANT * ECHO STRESS COLOR FLOW AND DOPPLER (08/06/2017 12:00 AM SILVER DESIGNER) Only the most recent of2 resultswithin the [...] artery (beyond 3rd order) and angiogram. 7. Wells embolization of the segment 7 branch of [...] draped in the usual sterile fashion. A post form remover film of the abdomen was obtained, which [...] documented. Following a series of exchanges, a 5-Albanian vascular sheath was placed. The celiac artery (1st order) was catheterized with a 5 Albanian Sos Omni-2 catheter and angiogram was obtained. The angiogram demonstrated a normal hepatic branching pattern. An attempt was made to catheterize the common hepatic artery with a 2.0 Albanian Progreat microcatheter but was unsuccessful. Therefore, the Sos Omni 2 catheter was exchanged for a 4 Albanian Cobra catheter and advanced into the proper [...] was sent to and analyzed at the [employer] work station. The study demonstrated nodular arterial enhancement in hepatic segment 7 at the dome superomedial to the ablation cavity. The right hepatic artery (beyond 3rd order) was then catheterized with a coaxially advanced 2.0 Albanian Progreat microcatheter and angiogram was obtained. The [...] hepaticartery (beyond 3rd order) and angiogram. 7. Wells embolization of the segment 7 branch of [...] draped in the usual sterile fashion. A post form remover film of the abdomen was obtained, which [...] (1st order) was catheterized with a 5 Albanian Sos Omni- 2catheter and angiogram was obtained. The angiogram demonstrated a normalhepatic branching pattern. An attempt was made to catheterize the commonhepatic artery with a 2.0 Albanian Progreat microcatheter but was unsuccessful. Therefore, the Sos Omni 2catheter was exchanged for a 4 Albanian Cobra catheter and advanced into theproper hepatic artery. Angiogram was performed with the catheter in theproper hepatic artery which showed antegrade flow in the right and left hepatic arteries. No definite tumorblush was identified. 3D Felicia CT was obtained following the injection of contrast with thecatheter in the proper hepatic artery. The data was sent to and analyzedat the [employer] work station. The study demonstrated nodular arterialenhancement in hepatic segment 7 at the dome superomedial to the ablation cavity. The right hepatic artery (beyond 3rd order) was then catheterized with acoaxially advanced 2.0 Albanian Progreat microcatheter and angiogram wasobtained. The angiogram again demonstrated antegrade flow in branchvessels; the segment 7 branches were identified. The segment 7 branch of the right hepatic artery (beyond 3rd order) wasthen catheterized with the microcatheter and angiogram was obtained, whichshowed blood flow to the region of tumor identified on Felicia CT. This was then followed by embolization of the segment 7 branch [id number] micron Embospheres to near stasis. Post-embolization angiogram [...] artery (beyond 3rd order) and angiogram. 7. Wells embolization of the segment 7 branch of [...] draped in the usual sterile fashion. A post form remover film of the abdomen was obtained, which [...] documented. Following a series of exchanges, a 5-Albanian vascular sheath was placed. The celiac artery (1st order) was catheterized with a 5 Albanian Sos Omni-2 catheter and angiogram was obtained. The angiogram demonstrated a normal hepatic branching pattern. An attempt was made to catheterize the common hepatic artery with a 2.0 Albanian Progreat microcatheter but was unsuccessful. Therefore, the Sos Omni 2 catheter was exchanged for a 4 Albanian Cobra catheter and advanced into the proper [...] was sent to and analyzed at the [employer] work station. The study demonstrated nodular arterial enhancement in hepatic segment 7 at the dome superomedial to the ablation cavity. The right hepatic artery (beyond 3rd order) was then catheterized with a coaxially advanced 2.0 Albanian Progreat microcatheter and angiogram was obtained. The [...] Physician 2. Dr. Cronin, IR Fellow 3. [facility], Medical Student Anesthesia: 1. Local anesthesia [...] hepaticartery (beyond 3rd order) and angiogram. 7. Wells embolization of the segment 7 branch of [...] draped in the usual sterile fashion. A post form remover film of the abdomen was obtained, which [...] (1st order) was catheterized with a 5 Albanian Sos Omni- 2catheter and angiogram was obtained. The angiogram demonstrated a normalhepatic branching pattern. An attempt was made to catheterize the commonhepatic artery with a 2.0 Albanian Progreat microcatheter but was unsuccessful. Therefore, the Sos Omni 2catheter was exchanged for a 4 Albanian Cobra catheter and advanced into theproper hepatic artery. Angiogram was performed with the catheter in theproper hepatic artery which showed antegrade flow in the right and left hepatic arteries. No definite tumorblush was identified. 3D Felicia CT was obtained following the injection of contrast with thecatheter in the proper hepatic artery. The data was sent to and analyzedat the [employer] work station. The study demonstrated nodular arterialenhancement in hepatic segment 7 at the dome superomedial to the ablation cavity. The right hepatic artery (beyond 3rd order) was then catheterized with acoaxially advanced 2.0 Albanian Progreat microcatheter and angiogram wasobtained. The angiogram again demonstrated antegrade flow in branchvessels; the segment 7 branches were identified. The segment 7 branch of the right hepatic artery (beyond 3rd order) wasthen catheterized with the microcatheter and angiogram was obtained, whichshowed blood flow to the region of tumor identified on Felicia CT. This was then followed by embolization of the segment 7 branch [id number] micron Embospheres to near stasis. Post-embolization angiogram [...] artery (beyond 3rd order) and angiogram. 7. Wells embolization of the segment 7 branch of [...] draped in the usual sterile fashion. A post form remover film of the abdomen was obtained, which [...] documented. Following a series of exchanges, a 5-Albanian vascular sheath was placed. The celiac artery (1st order) was catheterized with a 5 Albanian Sos Omni-2 catheter and angiogram was obtained. The angiogram demonstrated a normal hepatic branching pattern. An attempt was made to catheterize the common hepatic artery with a 2.0 Albanian Progreat microcatheter but was unsuccessful. Therefore, the Sos Omni 2 catheter was exchanged for a 4 Albanian Cobra catheter and advanced into the proper [...] was sent to and analyzed at the [employer] work station. The study demonstrated nodular arterial enhancement in hepatic segment 7 at the dome superomedial to the ablation cavity. The right hepatic artery (beyond 3rd order) was then catheterized with a coaxially advanced 2.0 Albanian Progreat microcatheter and angiogram was obtained. The [...] Physician 2. Dr. Cronin, IR Fellow 3. [facility], Medical Student Anesthesia: 1. Local anesthesia [...] hepaticartery (beyond 3rd order) and angiogram. 7. Wells embolization of the segment 7 branch of [...] draped in the usual sterile fashion. A post form remover film of the abdomen was obtained, which [...] (1st order) was catheterized with a 5 Albanian Sos Omni- 2catheter and angiogram was obtained. The angiogram demonstrated a normalhepatic branching pattern. An attempt was made to catheterize the commonhepatic artery with a 2.0 Albanian Progreat microcatheter but was unsuccessful. Therefore, the Sos Omni 2catheter was exchanged for a 4 Albanian Cobra catheter and advanced into theproper hepatic artery. Angiogram was performed with the catheter in theproper hepatic artery which showed antegrade flow in the right and left hepatic arteries. No definite tumorblush was identified. 3D Felicia CT was obtained following the injection of contrast with thecatheter in the proper hepatic artery. The data was sent to and analyzedat the [employer] work station. The study demonstrated nodular arterialenhancement in hepatic segment 7 at the dome superomedial to the ablation cavity. The right hepatic artery (beyond 3rd order) was then catheterized with acoaxially advanced 2.0 Albanian Progreat microcatheter and angiogram wasobtained. The angiogram again demonstrated antegrade flow in branchvessels; the segment 7 branches were identified. The segment 7 branch of the right hepatic artery (beyond 3rd order) wasthen catheterized with the microcatheter and angiogram was obtained, whichshowed blood flow to the region of tumor identified on Felicia CT. This was then followed by embolization of the segment 7 branch [id number] micron Embospheres to near stasis. Post-embolization angiogram ofthe segment 7 branch showed satisfactory stasis. A sheath angiogram of the right common femoral artery was unremarkablewith femoral access away from the profunda. Hemostasis was achieved withan Angioseal closure device. A sterile dressing was applied. The patient tolerated the procedure well [facility]. There were [...] artery (beyond 3rd order) and angiogram. 7. Wells embolization of the segment 7 branch of [...] draped in the usual sterile fashion. A post form remover film of the abdomen was obtained, which [...] documented. Following a series of exchanges, a 5-Albanian vascular sheath was placed. The celiac artery (1st order) was catheterized with a 5 Albanian Sos Omni-2 catheter and angiogram was obtained. The angiogram demonstrated a normal hepatic branching pattern. An attempt was made to catheterize the common hepatic artery with a 2.0 Albanian Progreat microcatheter but was unsuccessful. Therefore, the Sos Omni 2 catheter was exchanged for a 4 Albanian Cobra catheter and advanced into the proper [...] was sent to and analyzed at the [employer] work station. The study demonstrated nodular arterial enhancement in hepatic segment 7 at the dome superomedial to the ablation cavity. The right hepatic artery (beyond 3rd order) was then catheterized with a coaxially advanced 2.0 Albanian Progreat microcatheter and angiogram was obtained. The [...] hepaticartery (beyond 3rd order) and angiogram. 7. Wells embolization of the segment 7 branch of [...] draped in the usual sterile fashion. A post form remover film of the abdomen was obtained, which [...] (1st order) was catheterized with a 5 Albanian Sos Omni- 2catheter and angiogram was obtained. The angiogram demonstrated a normalhepatic branching pattern. An attempt was made to catheterize the commonhepatic artery with a 2.0 Albanian Progreat microcatheter but was unsuccessful. Therefore, the Sos Omni 2catheter was exchanged for a 4 Albanian Cobra catheter and advanced into theproper hepatic artery. Angiogram was performed with the catheter in theproper hepatic artery which showed antegrade flow in the right and left hepatic arteries. No definite tumorblush was identified. 3D Felicia CT was obtained following the injection of contrast with thecatheter in the proper hepatic artery. The data was sent to and analyzedat the [employer] work station. The study demonstrated nodular arterialenhancement in hepatic segment 7 at the dome superomedial to the ablation cavity. The right hepatic artery (beyond 3rd order) was then catheterized with acoaxially advanced 2.0 Albanian Progreat microcatheter and angiogram wasobtained. The angiogram again demonstrated antegrade flow in branchvessels; the segment 7 branches were identified. The segment 7 branch of the right hepatic artery (beyond 3rd order) wasthen catheterized with the microcatheter and angiogram was obtained, whichshowed blood flow to the region of tumor identified on Felicia CT. This was then followed by embolization of the segment 7 branch [id number] micron Embospheres to near stasis. Post-embolization angiogram ofthe segment 7 branch showed satisfactory stasis. A sheath angiogram of the right common femoral artery was unremarkablewith femoral access away from the profunda. Hemostasis was achieved withan Angioseal closure device. A sterile dressing was applied. The patient tolerated the procedure well and [facility]. There were [...] artery (beyond 3rd order) and angiogram. 7. Wells embolization of the segment 7 branch of [...] draped in the usual sterile fashion. A post form remover film of the abdomen was obtained, which [...] documented. Following a series of exchanges, a 5-Albanian vascular sheath was placed. The celiac artery (1st order) was catheterized with a 5 Albanian Sos Omni-2 catheter and angiogram was obtained. The angiogram demonstrated a normal hepatic branching pattern. An attempt was made to catheterize the common hepatic artery with a 2.0 Albanian Progreat microcatheter but was unsuccessful. Therefore, the Sos Omni 2 catheter was exchanged for a 4 Albanian Cobra catheter and advanced into the proper [...] was sent to and analyzed at the [employer] work station. The study demonstrated nodular arterial enhancement in hepatic segment 7 at the dome superomedial to the ablation cavity. The right hepatic artery (beyond 3rd order) was then catheterized with a coaxially advanced 2.0 Albanian Progreat microcatheter and angiogram was obtained. The [...] complications associated with the procedure. Procedure Note Joyn Garcia MD - 12/06/2017 History: 61 y.o.?male?with [...] hepaticartery (beyond 3rd order) and angiogram. 7. Wells embolization of the segment 7 branch of [...] draped in the usual sterile fashion. A post form remover film of the abdomen was obtained, which [...] (1st order) was catheterized with a 5 Albanian Sos Omni- 2catheter and angiogram was obtained. The angiogram demonstrated a normalhepatic branching pattern. An attempt was made to catheterize the commonhepatic artery with a 2.0 Albanian Progreat microcatheter but was unsuccessful. Therefore, the Sos Omni 2catheter was exchanged for a 4 Albanian Cobra catheter and advanced into theproper hepatic artery. Angiogram was performed with the catheter in theproper hepatic artery which showed antegrade flow in the right and left hepatic arteries. No definite tumorblush was identified. 3D Felicia CT was obtained following the injection of contrast with thecatheter in the proper hepatic artery. The data was sent to and analyzedat the [employer] work station. The study demonstrated nodular arterialenhancement in hepatic segment 7 at the dome superomedial to the ablation cavity. The right hepatic artery (beyond 3rd order) was then catheterized with acoaxially advanced 2.0 Albanian Progreat microcatheter and angiogram wasobtained. The angiogram again demonstrated antegrade flow in branchvessels; the segment 7 branches were identified. The segment 7 branch of the right hepatic artery (beyond 3rd order) wasthen catheterized with the microcatheter and angiogram was obtained, whichshowed blood flow to the region of tumor identified on Felicia CT. This was then followed by embolization of the segment 7 branch [id number] micron Embospheres to near stasis. Post-embolization angiogram ofthe segment 7 branch showed satisfactory stasis. A sheath angiogram of the right common femoral artery was unremarkablewith femoral access away from the profunda. Hemostasis was achieved withan Angioseal closure device. A sterile dressing was applied. The patient tolerated the procedure well and [facility]. There were [...] artery (beyond 3rd order) and angiogram. 7. Wells embolization of the segment 7 branch of [...] draped in the usual sterile fashion. A post form remover film of the abdomen was obtained, which [...] documented. Following a series of exchanges, a 5-Albanian vascular sheath was placed. The celiac artery (1st order) was catheterized with a 5 Albanian Sos Omni-2 catheter and angiogram was obtained. The angiogram demonstrated a normal hepatic branching pattern. An attempt was made to catheterize the common hepatic artery with a 2.0 Albanian Progreat microcatheter but was unsuccessful. Therefore, the Sos Omni 2 catheter was exchanged for a 4 Albanian Cobra catheter and advanced into the proper [...] was sent to and analyzed at the [employer] work station. The study demonstrated nodular arterial enhancement in hepatic segment 7 at the dome superomedial to the ablation cavity. The right hepatic artery (beyond 3rd order) was then catheterized with a coaxially advanced 2.0 Albanian Progreat microcatheter and angiogram was obtained. The [...] hepaticartery (beyond 3rd order) and angiogram. 7. Wells embolization of the segment 7 branch of [...] draped in the usual sterile fashion. A post form remover film of the abdomen was obtained, which [...] (1st order) was catheterized with a 5 Albanian Sos Omni- 2catheter and angiogram was obtained. The angiogram demonstrated a normalhepatic branching pattern. An attempt was made to catheterize the commonhepatic artery with a 2.0 Albanian Progreat microcatheter but was unsuccessful. Therefore, the Sos Omni 2catheter was exchanged for a 4 Albanian Cobra catheter and advanced into theproper hepatic artery. Angiogram was performed with the catheter in theproper hepatic artery which showed antegrade flow in the right and left hepatic arteries. No definite tumorblush was identified. 3D Felicia CT was obtained following the injection of contrast with thecatheter in the proper hepatic artery. The data was sent to and analyzedat the [employer] work station. The study demonstrated nodular arterialenhancement in hepatic segment 7 at the dome superomedial to the ablation cavity. The right hepatic artery (beyond 3rd order) was then catheterized with acoaxially advanced 2.0 Albanian Progreat microcatheter and angiogram wasobtained. The angiogram again demonstrated antegrade flow in branchvessels; the segment 7 branches were identified. The segment 7 branch of the right hepatic artery (beyond 3rd order) wasthen catheterized with the microcatheter and angiogram was obtained, whichshowed blood flow to the region of tumor identified on Felicia CT. This was then followed by embolization of the segment 7 branch [id number] micron Embospheres to near stasis. Post-embolization angiogram [...] This report was electronically signed by JONY GARICA M.D. on07/09/2017 3:31 PM . Jony Garcia [...] ORDERABLES * CREATININE BLOOD - POCT (IP) [facility] (05/30/2017) Only the most recent of2 resultswithin the time period is included. Creatinine POCT 0.85 0.3 - 1.3 mg/dL [facility] eGFR POCT 60 60 ml/min [facility] 05/30/2017 Jony Garica MD LAB - POINT OF CARE ORDERABLES [facility] * CT PARENCHYMAL TISSUE ABLATION [...] by the injection with 1% Lidocaine. A CO 15 probe (3 -4 cm ablation zone) [...] provided by the injection with 1%Lidocaine. A CO 15 probe (3 -4 cm ablation zone) [...] by the injection with 1% Lidocaine. A CO 15 probe (3 -4 cm ablation zone) [...] provided by the injection with 1%Lidocaine. A CO 15 probe (3 -4 cm ablation zone) [...] procedure. This report was approved by Silvino Xiogn M.D. on 03/06/2017 1:33 PM . I, Dr. JONY GARCIA M.D. have personally reviewed and interpreted thisexamination/study. This report was electronically signed by JONY GARCIA M.D. on 03/10/201711:20 PM . Vishal Lyons MD CT ORDERABLES * PREPARE PLATELET PHERESIS UNIT(S) (03/06/2017 9:13 AM CDT) Only the most recent of2 resultswithin the time period is included. Unit Platelet Pheresis [id number] transfused [facility] BLOOD BANK PRODUCTS (BEAKER) Unit ABO B [facility] (BEAKER) Unit Rh POS [facility] (BEAKER) Unit Number [id number] [facility] (BEAKER) Unit Status Transfused [facility] BLO OD [facility] (BEAKER) Irradiated Platelet [id number] transfused [facility] (BEAKER) Unit ABO O [facility] (BEAKER) Unit Rh POS [facility] (BEAKER) Unit Number [id number] [facility] (BEAKER) Unit Status Transfused [facility] BLO OD [facility] (BEAKER) 03/06/2017 9:13 AM CDT 03/06/2017 9:21 AM CDT Narrative [facility] BLOOD [facility]ANK PRODUCTS (BEAKER) - 03/06/2017 9:13 AM CDT # of Units->2 [place] Lilly Asst LAB - BLO OD BANK ORDERABLES Performing Organization Address City/[facility]/ZIP Co de Phone Number [facility] BLOOD BANK PRODUCTS (BEAKER) * CULTURE AEROBIC (10/06/2016 12:07 AM SILVER DESIGNER) Culture Aerobic No Growth at 1 week [facility] Gram Stain Many Red Blood Cells [facility] Gram Stain No Organism Seen [facility] Fluid specimen (specimen) 10/06/2016 12:07 AM SILVER DESIGNER 10/06/2016 12:57 AM SILVER DESIGNER [facility] - 10/13/2016 2:58 PM SILVER DESIGNER Peritoneal fluid Specimen Type->Body Fluid Gram Stains are routinely screened for the presence of Polymorphonuclear Cells. Jerrell Brown MD LAB - MICROBIOLOGY O RDERABLES Performing Organization Address [facility]/ZIP Co de Phone Number [address] [phone] * CULTURE ANAEROBE (10/06/2016 12:07 AM SILVER DESIGNER) Culture Anaerobic No Growth at 1 week [facility] Fluid specimen (specimen) 10/06/2016 12:07 AM SILVER DESIGNER 10/06/2016 12:57 AM SILVER DESIGNER [facility] - 10/15/2016 11:21 AM SILVER DESIGNER Peritoneal fluid Specimen Type->Body Fluid Jerrell Brown MD LAB - MICROBIOLOGY O RDERABLES Performing Organization Address [facility]/ZIP Co de Phone Number [address] [phone] * CT ABDOMEN PELVIS W CONTRAST (10/05/2016 6:34 PM SILVER DESIGNER) Anatomical Region Laterality Modality Abdomen, Pelvis Other Impressions 10/06/2016 12:07 PM SILVER DESIGNER IMPRESSION: 1. Indirect right inguinal hernia containing [...] 1752 hours. Dictated by Vivek Butler MD (residential door unit installer). I, Dr. LESLY FERMIN M.D. have personally reviewed and interpreted this examination/study. This report was electronically signed by LESLY FERMIN M.D. on 10/06/2016 12:07 PM . Narrative 10/06/2016 12:07 PM SILVER DESIGNER EXAMINATION: Computed tomography (CT) of the abdomen [...] [facility] 09/19/2016. The gallbladder is [...] 1752 hours. Dictated by Vivek Butler MD (residential door unit installer). I, Dr. LESLY FERMIN M.D. have personally reviewed and interpreted thisexamination/study. This report was electronically signed by LESLY FERMIN M.D. on10/06/2016 12:07 PM . Piper Renner MD CT ORDERABLES * PURPLE TOP TUBE EXTRA (10/05/2016 5:17 PM SILVER DESIGNER) Extra Tube hold [facility] Blood specimen (specimen) BLOOD SPECIMEN / Unknown 10/05/2016 5:17 PM SILVER DESIGNER 10/05/2016 5:22 PM SILVER DESIGNER Piper Renner MD LAB - CHEMISTRY [facility] [address] [phone] * LIPASE BLOOD (09/12/2016 1:16 AM SILVER DESIGNER) Only the most recent of2 resultswithin the time period is included. Lipase 13 8 - 78 Units/L [facility] Blood specimen (specimen) BLOOD SPECIMEN / Unknown 09/12/2016 1:16 AM SILVER DESIGNER 09/12/2016 1:22 AM SILVER DESIGNER Demetrice Prado MD LAB - CHEMISTRY LUIS ENRIQUE CELIS Performing Organization Address City/[facility]/[place] [address], [facility] [phone] * XR LUMBAR SPINE 2 OR 3VW (08/28/2016 1:16 PM SILVER DESIGNER) Only the most recent of2 resultswithin the time period is included. Anatomical Region Laterality Modality Spine Other Impressions 08/28/2016 3:32 PM SILVER DESIGNER IMPRESSION: 1. Redemonstration of an L1 compression fracture with interval progression of anterior height loss, now greater than 50 percent. 2. Multilevel degenerative changes. This report was electronically signed by DASHAWN SUE MD on 08/28/2016 3:32 PM . Narrative 08/28/2016 3:32 PM SILVER DESIGNER Exam: XR SPINE LUMBAR 2 OR 3 [...] DOPPLER AND COLOR FLOW (08/22/2016 12:00 AM SILVER DESIGNER) Anatomical Region Laterality Modality Other 08/22/2016 Mele Nevarez MD ECHOCARDIOGRAPHY RAD IANT * CT ANGIO BRAIN AND NECK (08/02/2016 12:18 PM SILVER DESIGNER) Anatomical Region Laterality Modality Head Other Impressions 08/03/2016 10:18 AM SILVER DESIGNER IMPRESSION: 1. No acute intracranial hemorrhage. 2. No large arterial occlusions or significant stenoses identified in the head or neck. I, Dr. STEVE ACOSTA M.D. have personally reviewed and interpreted this examination/study. This report was electronically signed by TSEVE ACOSTA M.D. on 08/03/2016 10:18 AM . Narrative 08/03/2016 10:18 AM SILVER DESIGNER EXAMINATION: 1. Computed tomography (CT) of the [...] stenoses identified in thehead or neck. Dr. STVEE Reyes M.D. have personally reviewed and interpreted thisexamination/study. This report was electronically signed by STEVE ACOSTA M.D. on 08/03/201610:18 AM . Paula Cuevas MD CT ORDERABLES * XR CHEST 2VW (08/02/2016 11:49 AM SILVER DESIGNER) Anatomical Region Laterality Modality Chest Other Impressions 08/02/2016 4:55 PM SILVER DESIGNER Impression: Bibasilar atelectasis, right greater than left, with small left pleural effusion. This report has been dictated by Ramiro Ribera M.D. (Resident). Dr. LESLY Reyes M.D. have personally reviewed and interpreted this examination/study. This report was electronically signed by LESLY FERMIN M.D. on 08/02/2016 4:55 PM . Narrative 08/02/2016 4:55 PM SILVER DESIGNER Exam: XR CHEST PA AND LATERAL. Date: [...] RDERABLES * TROPONIN I (08/02/2016 10:25 AM SILVER DESIGNER) Pathologist [facility] Troponin I <0.010 <0.032 ng/mL [facility] Blood specimen (specimen) BLOOD SPECIMEN / Unknown 08/02/2016 10:25 AM SILVER DESIGNER 08/02/2016 10:33 AM SILVER DESIGNER Paula Cuevas MD LAB - CHEMISTRY LUIS ENRIQUE CELIS [address] [phone] * CK + CKMB PANEL (08/02/2016 10:25 AM SILVER DESIGNER) Pathologist [facility] CK Total 72 30 - 200 Units/L [facility] CK-MB 2.0 0.0 - 6.6 ng/mL [facility] Blood specimen (specimen) BLOOD SPECIMEN / Unknown 08/02/2016 10:25 AM SILVER DESIGNER 08/02/2016 10:33 AM SILVER DESIGNER Paula Cuevas MD LAB - CHEMISTRY LUIS ENRIQUE CELIS [address] [phone] * AMMONIA (08/02/2016 10:25 AM SILVER DESIGNER) Only the most recent of4 resultswithin the time period is included. Ammonia 43 11 - 64 umol/L [facility] Blood specimen (specimen) BLOOD SPECIMEN / Unknown 08/02/2016 10:25 AM SILVER DESIGNER 08/02/2016 10:33 AM SILVER DESIGNER Paula Cuevas MD LAB - CHEMISTRY LUIS NERIQUE CELIS [address] [phone] * CCL CATH LEFT HEART ARTERY GRAFT (07/30/2016 8:26 AM SILVER DESIGNER) Anatomical Region Laterality Modality X-Ray Angiograph y Narrative 07/30/2016 9:22 AM SILVER DESIGNER [facility] Cardiac Catheterization Procedure Note Patient: Robert Harrell Age: 60 y.o. Date of : 1955 Date of Admission: 07/30/16 Procedure Date: 07/30/16 FELLOW / MACHINE SOLE LEVELER: Jaleel Trinidad MD; Jj Thomas MD ATTENDING [...] occlusion. Coronary angiography was performed using 6Fr Mobile catheter. Left heart catheterization was performed using 6Fr Mobile catheter. At the conclusion of the procedure, [...] Procedure Note James Terrell MD - 02/14/2018 [facility] Cardiac Catheterization Procedure Note Patient: Robert Harrell Age: 60 y.o. Date of : 1955 Date of Admission: 07/30/16 Procedure Date: 07/30/16 FELLOW / MACHINE SOLE LEVELER: Jaleel Trinidad MD; Jj Thomas MD ATTENDING [...] orocclusion. Coronary angiography was performed using 6Fr Mobile catheter.Left heart catheterization was performed using 6Fr Mobile catheter. At theconclusion of the procedure, hemostasis [...] MD 07/30/2016/9:29 AM Jerrell Brown MD CARDIAC SALES TRAINING COORDINATOR RAD IANT * CT LIVER 3 PHASE W PELVIS (07/17/2016 10:49 AM SILVER DESIGNER) Anatomical Region Laterality Modality Abdomen Other Impressions 07/17/2016 5:17 PM SILVER DESIGNER IMPRESSION: 1. Arterially enhancing observation with washout [...] inguinal hernia. Dictated by Wilber Hall MD (residential door unit installer) This report was approved by Mele Hall on 07/17/2016 5:09 PM . I, Dr. LESLY FERMIN M.D. have personally reviewed and interpreted this examination/study. This report was electronically signed by LESLY FERMIN M.D. on 07/17/2016 5:17 PM . Narrative 07/17/2016 5:17 PM SILVER DESIGNER EXAMINATION: Computed tomography (CT) of the abdomen [...] inguinal hernia. Dictated by Wilber Rafael, MD (residential door unit installer) This report was approved by Mele Hall on 07/17/2016 5:09 PM . I, Dr. LESLY FERMIN M.D. have personally reviewed and interpreted thisexamination/study. This report was electronically signed by LESLY FERMIN M.D. on07/17/2016 5:17 PM . Ramon Morales MD CT ORDERABLES * ALPHA FETOPROTEIN + AFP-L3 (07/09/2016 9:35 AM CDT) Alpha-Fetoprotein 2.1 1.6 - 4.5 ng/mL [facility]) Ndnpl-Wjolopsckoa-K 3 SEE NOTE 0.5 - 9.9 % [facility]) Comment: NO VALUE DETERMINED The micro-total analysis system ([employer]) employs microchip capillary electrophoresis to quantitatively measure AFP and AFP-L3% by immunochemical techniques. The assay principle involves DNA-coupled antibodies and dye labeled antibodies, which react with proteins in liquid phase within the microchannels. Both analytes are quantified using laser-induced fluorescence. Instrument and associated reagents are supplied by [employer] [place], [place], [place]. Patients with elevated AFP-L3% values (>=10%) [...] can potentially cause an anomalous result. The [employer] System has been formulated to minimize the [...] HEPARIN, ARGATROBAN OR DABIGATRAN?->N Test Performed at: [employer] [address] [place] [address] REBECCA CHRISTIANSEN MD PHD Blood specimen (specimen) BLOOD SPECIMEN / Unknown 07/09/2016 9:35 AM CDT 07/09/2016 9:36 AM CDT Ramon Morales MD LAB - CHEMISTRY LUIS ENRIQUE CELIS [facility] Organization Address City/State/ZIP Co de Phone Number [facility] ([facility]) * (ABNORMAL) BLOOD GASES ART - PFT (06/19/2016 11:15 AM CDT) pH Arterial 7.43 7.35 - 7.45 [facility] pCO2 Arterial 36 35 - 45 mmHg [facility] pO2 Arterial 77 71 - 95 mmHg [facility] HCO3 Arterial 23.7 22.0 - 26.0 mmol/L [facility] TCO2 Arterial 24.8(L) 25.0 - 29.0 mmol/L [facility] Base Excess Arterial 0.2 -2.0 - 2.0 mmol/L [facility] Hemoglobin Arterial 12.8(L) 13.5 - 17.5 g/dL [facility] Oxyhemoglobin Arterial 95.8 95.0 - 100.0 % [facility] Carboxyhemoglobin 2.2 0.0 - 3.0 % [facility] Methemoglobin 0.0 0.0 - 2.0 % [facility] FI O2 Arterial 20.9 % [facility] Blood specimen (specimen) ARTERY SPECIMEN / Unknown 06/19/2016 11:15 AM CDT 06/19/2016 11:46 AM CDT Narrative [facility] - 06/19/2016 11:47 AM CDT Room air (21%)->Yes FiO2->20.9 Liters/minute->0 Tino Santiago MD LAB - BLOOD GASES OR DERABLES Performing Organization Address [facility] Co de Phone Number [address] [phone] * MITOCHONDRIAL ANTIBODY SCREEN (06/19/2016 7:19 AM CDT) Only the most recent of2 resultswithin the time period is included. Mitochondrial M2 Antibody 12.1 0.0 - 20.0 Units [facility] Comment: Mitochondrial M2 Antibody Numeric Result Interpretation: <20.1 Units: Negative 20.1 - 24.9 Units: Equivocal >24.9 Units: Positive Blood specimen (specimen) BLOOD SPECIMEN / Unknown 06/19/2016 7:19 AM CDT 06/19/2016 8:14 AM CDT Jerrell Brown MD LAB - CHEMISTRY LUIS ENRIQUE CELIS Performing Organization Address [facility] Co de Phone Number [address] [phone] * (ABNORMAL) HEPATITIS A ANTIBODY (06/19/2016 7:19 AM CDT) Hepatitis A Virus Antibody Total Positive(A ) Negative [facility] ([facility]) Blood specimen (specimen) 06/19/2016 7:19 AM CDT 06/19/2016 8:40 AM CDT Narrative [facility] ([facility]) - 06/20/2016 6:16 AM CDT Performed at: [address] [place] [address] [id number] Hose Turner: Tio Segal PhD, Phone: [phone] Jerrell Brown MD LAB - CHEMISTRY LUIS ENRIQUE CELIS [facility] ([place]) * SABML-2-ZDUPEJUPEWM BLOOD PHENOTYPING PANEL (03/26/2016 8:53 AM CDT) Cmpvc-8-Ryjxmcwme in Phenotype SEE NOTE [facility]) Comment: THIS PATIENT'S GTXVA-0-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 90% of normal individuals have the MM phenotype, with normal quantitative AAT levels. Many phenotypic patterns have been described, including deficiency states with F, S, Z, or other alleles. As a general estimation, compared to M allele of 100% of normal K-4-Swdhqkmkkfu protein, the S allele produces approximately 60% and the Z allele 20%. For example, an MS phenotype would have about 80% of normal J-2-Akynprshqym protein level, a 50% contribution from the M allele and 30% from the S allele. A ZZ phenotype would have about 20% of normal levels, a 10% contribution from each Z gene. The F allele has normal L-6-Pyhoyojfwyh levels, but the kinetics of elastase inhibition [...] phenotype. REPORT COMMENT: FASTING:YES Test Performed at: [employer] [address] [place] [address] REBECCA CHRISTIANSEN MD PHD 03/26/2016 8:53 AM CDT 03/26/2016 8:53 AM CDT Ramon Morales MD LAB - CHEMISTRY LUIS ENRIQUE CELIS Performing Organization Address City/[facility]/ZIP Co de Phone Number [facility] ([facility]) * (ABNORMAL) COPPER URINE (09/15/2015 1:16 PM SILVER DESIGNER) Copper Urine 13 Not Estab. ug/L [facility] ([facility]) Comment:Detection Limit = 1 Creatinine Urine 0.73 0.30 - 3.00 g/L [facility] ([facility]) Comment:Detection Limit = 0. 10 Copper/Creatini ne Ratio 18 0 - 49 ug/g creat [facility] ([facility]) Copper 24 Hour Urine 0(L) 3 - 35 ug/24 hr [facility] ([facility]) Urine specimen (specimen) (Urine, unspecified source) 09/15/2015 1:16 PM SILVER DESIGNER 09/15/2015 2:04 PM SILVER DESIGNER Narrative [facility] ([facility]) - 09/20/2015 6:14 AM SILVER DESIGNER 24 Hour Urine for Copper. Performed at: [address] [place] [address] [id number] Hose Turner: Peter Treadwell MD, Phone: [phone] Naomi You MD LAB - URINE CHEMISTR Y ORDERABLES Performing Organization Address [facility] Co de Phone Number [facility] ([facility]) * (ABNORMAL) COPPER BLOOD (09/15/2015 12:02 AM SILVER DESIGNER) Copper 53(L) 72 - 166 ug/dL [facility] ([facility]) Comment:Detection Limit = 5 Blood specimen (specimen) BLOOD SPECIMEN / Unknown 09/15/2015 12:02 AM SILVER DESIGNER 09/15/2015 12:06 AM SILVER DESIGNER Narrative [facility] ([facility]) - 09/17/2015 6:14 AM SILVER DESIGNER Performed at: [address] [place] [address] [id number] Hose Turner: Peter Treadwell MD, Phone: [phone] Naomi You MD LAB - CHEMISTRY LUIS ENRIQUE CELIS Performing Organization Address City/[facility]/ZIP Co de Phone Number [facility]) * CORTISOL BLOOD AM (09/14/2015 4:58 AM SILVER DESIGNER) Pathologist [facility] Cortisol AM 6.5 3.7 - 19.4 mcg/dL [facility] Blood specimen (specimen) BLOOD SPECIMEN / Unknown 09/14/2015 4:58 AM SILVER DESIGNER 09/14/2015 5:04 AM SILVER DESIGNER Naomi You MD LAB - CHEMISTRY LUIS ENRIQUE CELIS [address] [phone] * HEPATITIS B VIRUS DNA QUANT PCR (09/14/2015 12:14 AM SILVER DESIGNER) [facility] Hepatitis B Virus IU/mL Comment IU/mL [facility]) Comment:HBV DNA not detected Hepatitis B Virus DNA (Log IU/mL) TNP okf80UN/mL [facility]) Comment: Unable to calculate result since non-numeric result obtained for component test. Test Information Comment [facility]) Comment:The reportable range for this assay is 20 to 170,000,000 IU/mL 09/14/2015 12:1 4 AM SILVER DESIGNER 09/14/2015 12:23 AM SILVER DESIGNER Narrative [facility]) - 09/17/2015 5:08 PM SILVER DESIGNER Performed at: [address] [place] [address] [id number] Hose Turner: Peter Treadwell MD, Phone: [phone] Naomi You MD LAB - SEROLOGY KAREL MAYRA Performing Organization Address City/[facility]/ZIP Co de Phone Number [facility]) * HEMOCHROMATOSIS MUTATION PANEL (09/14/2015 12:14 AM SILVER DESIGNER) [facility] Hemochromatosis Genotype Specimen: 3 ml Peripheral Blood Reference: [id number] Test: Hemochromatosis Genotyping RESULT Hemochromatosis Genotyping C282Y [...] determined by the [facility] Diagnostic Laboratory at [facility]. It has not been cleared or approved [...] complexity clinical laboratory testing. Test performed at [facility], [address] [place] [address] This case has been personally reviewed and interpreted by the attending (teaching) pathologist. Final Diagnosis performed by Evelyn Santamaria MD. Electronically signed 09/15/2015 [facility] ([place]) Blood specimen (specimen) BLOOD SPECIMEN / Unknown 09/14/2015 12:14 AM SILVER DESIGNER 09/14/2015 12:21 AM SILVER DESIGNER Naomi You MD LAB - CHEMISTRY LUIS ENRIQUE CELIS [facility] ([place]) * (ABNORMAL) CERULOPLASMIN (09/14/2015 12:14 AM SILVER DESIGNER) Ceruloplasmin 16(L) 20 - 60 mg/dL [facility] Blood specimen (specimen) BLOOD SPECIMEN / Unknown 09/14/2015 12:14 AM SILVER DESIGNER 09/14/2015 12:23 AM SILVER DESIGNER Naomi You MD LAB - CHEMISTRY LUIS ENRIQUE CELIS Performing Organization Address City/[facility]/ZIP Co de Phone Number [address] [phone] * OUVNX-8-LEGJKVFBCUS BLOOD (09/14/2015 12:14 AM SILVER DESIGNER) Only the most recent of2 resultswithin the time period is included. Dszva-8-Atdzye ypsin 119 90 - 200 mg/dL [facility] Blood specimen (specimen) BLOOD SPECIMEN / Unknown 09/14/2015 12:14 AM SILVER DESIGNER 09/14/2015 12:23 AM SILVER DESIGNER Naomi You MD LAB - CHEMISTRY LUIS ENRIQUE CELIS Performing Organization Address [facility] Co de Phone Number [address] [phone] * IRON BLOOD (09/14/2015 12:14 AM SILVER DESIGNER) Iron 92 50 - 175 mcg/dL [facility] Blood specimen (specimen) BLOOD SPECIMEN / Unknown 09/14/2015 12:14 AM SILVER DESIGNER 09/14/2015 12:23 AM SILVER DESIGNER Naomi You MD LAB - CHEMISTRY LUIS ENRIQUE CELIS Performing Organization Address [facility]/ZIP Co de Phone Number [address] [phone] * OSMOLALITY URINE (09/12/2015 4:50 PM SILVER DESIGNER) Only the most recent of2 resultswithin the time period is included. Osmolality Urine 693 500 - 800 mOsm/kg [facility] Urine specimen (specimen) URINE SPECIMEN OBTAINED BY CLEAN CATCH PROCEDURE / Unknown 09/12/2015 4:50 PM SILVER DESIGNER 09/12/2015 4:58 PM SILVER DESIGNER Duran Wilhelm MD LAB - URINE CHEMISTR Y ORDERABLES Performing Organization Address [facility] Co de Phone Number [address] [phone] * URIC ACID BLOOD (09/12/2015 1:35 PM SILVER DESIGNER) Uric Acid 4.3 2.6 - 7.2 mg/dL [facility] Blood specimen (specimen) BLOOD SPECIMEN / Unknown 09/12/2015 1:35 PM SILVER DESIGNER 09/12/2015 1:51 PM SILVER DESIGNER Duran Wilhelm MD LAB - CHEMISTRY ORDE LALITA Performing Organization Address [facility] Co de Phone Number [address] [phone] * CORTISOL BLOOD PM (09/12/2015 1:35 PM SILVER DESIGNER) Cortisol PM 11.4 2.9 - 17.3 mcg/dL [facility] Blood specimen (specimen) BLOOD SPECIMEN / Unknown 09/12/2015 1:35 PM SILVER DESIGNER 09/12/2015 3:00 PM SILVER DESIGNER Naomi You MD LAB - CHEMISTRY LUIS ENRIQUE CELIS Performing Organization Address [facility] Co de Phone Number [address] [phone] * US ABDOMEN LIMITED (09/12/2015 12:12 PM SILVER DESIGNER) Anatomical Region Laterality Modality Abdomen Other Impressions 09/13/2015 3:01 PM SILVER DESIGNER IMPRESSION: 1. Hepatic cirrhosis. No discrete hepatic [...] 5:47 PM . Narrative 09/13/2015 3:01 PM SILVER DESIGNER EXAMINATION: 1. Limited abdominal sonogram 2. Color [...] * (ABNORMAL) OSMOLALITY BLOOD (09/11/2015 11:45 PM SILVER DESIGNER) Only the most recent of2 resultswithin the time period is included. Osmolality 269(L) 270 - 300 mOsm/kg [facility] Blood specimen (specimen) BLOOD SPECIMEN / Unknown 09/11/2015 11:45 PM SILVER DESIGNER 09/12/2015 12:11 AM SILVER DESIGNER Scott Lee MD LAB - CHEMISTRY ORDE RABLES Performing Organization Address [facility]/ZIP Co de Phone Number [address] [phone] * SODIUM URINE RANDOM (09/11/2015 9:47 PM SILVER DESIGNER) Sodium Urine 49 Not Established mmol/L [facility] Urine specimen (specimen) URINE / Unknown 09/11/2015 9:47 PM SILVER DESIGNER 09/11/2015 9:47 PM SILVER DESIGNER Scott Lee MD LAB - URINE CHEMISTR Y ORDERABLES Performing Organization Address [facility] Co de Phone Number [address] [phone] * UREA NITROGEN URINE RANDOM (09/11/2015 9:47 PM SILVER DESIGNER) Urea Nitrogen Random Urine 776 Not Established mg/dL [facility] Urine specimen (specimen) URINE / Unknown 09/11/2015 9:47 PM SILVER DESIGNER 09/11/2015 9:47 PM SILVER DESIGNER Scott Lee MD LAB - URINE CHEMISTR Y ORDERABLES Performing Organization Address [facility] Co de Phone Number [address] [phone] * CREATININE URINE RANDOM (09/11/2015 9:47 PM SILVER DESIGNER) Creatinine Urine 131 Not Established mg/dL [facility] Comment:Result obtained by prema zepeda. Urine specimen (specimen) URINE / Unknown 09/11/2015 9:47 PM SILVER DESIGNER 09/11/2015 9:47 PM SILVER DESIGNER Scott Lee MD LAB - URINE CHEMISTR Y ORDERABLES Performing Organization Address [facility] Co de Phone Number [address] [phone] * CULTURE URINE (09/11/2015 9:37 PM SILVER DESIGNER) Culture Urine No Growth of >=100 CFU/ml after 48 Hours [facility] Urine specimen (specimen) URINE / Unknown 09/11/2015 9:37 PM SILVER DESIGNER 09/11/2015 9:46 PM SILVER DESIGNER Narrative [facility] - 09/14/2015 11:59 AM SILVER DESIGNER Specimen Type->Urine Scott Lee MD LAB - MICROBIOLOGY O RDERABLES Performing Organization Address [facility] Co de Phone Number [address] [phone] * (ABNORMAL) JARROD BLOOD SCREEN (09/11/2015 10:47 AM SILVER DESIGNER) JARROD Positive(A ) None Detected [facility] Venous blood specimen (specimen) 09/11/2015 10:47 AM SILVER DESIGNER 09/11/2015 10:52 AM SILVER DESIGNER Scott Lee MD LAB - CHEMISTRY ORDE RABLES Performing Organization Address [facility] Co de Phone Number [address] [phone] * JARROD BLOOD SCREEN W/REFLEX TITER (09/11/2015 10:47 AM SILVER DESIGNER) JARROD IFA Negative [facility] ([facility]) Comment: Negative <1:80 Borderline 1:80 Positive >1:80 Venous blood specimen (specimen) BLOOD SPECIMEN / Unknown 09/11/2015 10:47 AM SILVER DESIGNER 09/12/2015 11:43 AM SILVER DESIGNER Narrative [facility] ([place]) - 09/13/2015 5:11 PM SILVER DESIGNER Performed at: [address] [id number] Hose Turner: Tio Segal PhD, Phone: [phone] Scott Lee MD LAB - CHEMISTRY LUIS ENRIQUE CELIS Performing Organization Address City/[facility]/ZIP Co de Phone Number [facility] * SMOOTH MUSCLE ANTIBODY (09/11/2015 10:46 AM SILVER DESIGNER) F-Actin Antibody IgG 17.9 0.0 - 19.9 Units [facility] Comment: F-Actin Antibody Numeric Result Interpretation: <20.0 Units: Negative 20.0 - 30.0 Units: Weak Positive >30.0 Units: Moderate to Strong Positive Blood specimen (specimen) BLOOD SPECIMEN / Unknown 09/11/2015 10:46 AM SILVER DESIGNER 09/11/2015 10:52 AM SILVER DESIGNER Scott Lee MD LAB - SEROLOGY ORDER MAYRA Performing Organization Address City/[facility]/ZIP Co de Phone Number [address] [phone] * (ABNORMAL) HEPATITIS B SURFACE ANTIBODY (09/11/2015 10:46 AM SILVER DESIGNER) Hepatitis B Virus Surface Antibody Reactive( A) Non-react rosendo [facility] Comment: > 12 mIU/mL Hepatitis B surface Antibody (HBsAb). Reactive for HBsAb - individual is considered immune to Hepatitis B Virus infection. Hepatitis B Surface Antibody Quantitative 76.9(H) <8.0 mIU/mL [facility] Comment: Hepatitis B Surface Antibody Numeric Result Interpretation: Nonreactive: <8.0 mIU/mL Indeterminate: 8.0 - 12.0 mIU/mL Reactive: >12.0 mIU/mL Blood specimen (specimen) BLOOD SPECIMEN / Unknown 09/11/2015 10:46 AM SILVER DESIGNER 09/11/2015 10:52 AM SILVER DESIGNER Scott Lee MD LAB - CHEMISTRY LUIS ENRIQUE CELIS Performing Organization Address City/[facility]/ZIP Co de Phone Number [address] [phone] * HEPATITIS C ANTIBODY (09/11/2015 10:46 AM SILVER DESIGNER) Hepatitis C Antibody Non-react rosendo Non-reac tive [facility] Comment: Hepatitis C Antibody screen indicates no serologic evidence of past or current infection with Hepatitis C Virus. Patients with unexplained liver disease who are immunocompromised or suspected of having acute Hepatitis C infection may benefit from Nucleic Acid Test (ERUM) for Hepatitis C Viral RNA to confirm Hepatitis C status. Blood specimen (specimen) BLOOD SPECIMEN / Unknown 09/11/2015 10:46 AM SILVER DESIGNER 09/11/2015 10:52 AM SILVER DESIGNER Scott Lee MD LAB - CHEMISTRY LUIS ENRIQUE CELIS Performing Organization Address [facility] [place] [place] [address], [facility] [phone] * CULTURE BLOOD (09/11/2015 2:55 AM SILVER DESIGNER) Only the most recent of2 resultswithin the time period is included. Pathologist [facility] Culture Blood No Growth at 5 days [facility] Blood specimen (specimen) 09/11/2015 2:55 AM SILVER DESIGNER 09/11/2015 3:00 AM SILVER DESIGNER Narrative [facility] - 09/16/2015 3:15 AM SILVER DESIGNER Draw 15 minutes after Culture 1 from a different site Scott Lee MD LAB - MICROBIOLOGY O RDERABLES Performing Organization Address City/[facility]/[place] [address], [facility] [phone] Care Teams Strategic Advisor Relationship Specialty Start Date End Date Sharri Argueta DO [address] [place] [address] PCP - General 10/23/20 Qi Story, RN Registered Nurse 10/28/20
--- OUTSIDE RECORDS SUMMARY | 2024-11-23 14:30 | XMS_ITS | Clinical Summary ---
Author Organization [facility] Address [facility] [place] [address] Care Team Providers Care Multiple Wire Sawyer Name Role Phone Rod Sanches MD Primary Care Provider [phone] Social History Tobacco Use Types Packs/Day Years [...] age to complete this topic Care Teams Multiple Wire Sawyer Relationship Specialty Start Date End Date Rod Sanches MD [address] [place] [phone] PCP - General 09/10/15
--- OUTSIDE RECORDS SUMMARY | 2024-11-23 14:30 | XMS_ITS | Encounter Summary ---
Author Organization [facility] Address [address] [place] [address] Care Team Providers Care Custom Seamstress Name Role Phone Rod Sanches MD Primary Care Provider [phone] Phylicia Beck RN Unavailable Unavailable Sharri Argueta DO Primary Care Provider [phone] Rod Sanches MD Primary Care Provider [phone] Sharri Argueta DO Primary Care Provider + [phone] Qi Story RN Unavailable Unavailable Encounter Details Date Type Department Care Team (Late st Contact Info) Description 05/06/2018 Nutrition [facility] [address] [place] [id number] [address] Ro[address]/LOLLY Social History Tobacco Use Types Packs/Day Years Used Date Smoking Tobacco: Former Cigarettes Q uit: 09/11/1983 Smokeless Tobacco: Never Alcohol Use Standard Drinks/Week Comments No 0 (1 standard drink = 0.6 oz pur e alcohol) Sex and Gender Information Value Date Recorded Sex Assigned at Not on file Gender Identity Not on file Sexual Orientation Straight 07/31/2024 7: 47 PM 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 documented as of this encounter Progress Notes [...] Saturday- Dinner - 6 fried chicken wings, tamazight fries, HS - 6 cookies Saturday - [...] Description 02/02/2025 12:00 PM CDT Office Visit [facility] - GI [address] [place] [address], [place] [id number] Ramon Morales MD [address] [place] [address] [place] [address] documented as of this encounter Visit Diagnoses Not on filedocumented in this encounter Care Teams Custom Seamstress Relationship Specialty Start Date End Date Rod Sanches MD [address] [place] [address] PCP - General 06/09/16 01/13/20 Sharri Argueta DO [address] [place] [address] PCP - General 01/14/20 04/06/20 Rod Sanches MD [address] [place] [address] PCP - General 04/07/20 10/22/20 Sharri Argueta DO [address] [place] [address] PCP - General 10/23/20 Phylicia Beck, RN Registered Nurse 12/23/17 10/27/20 Qi Story, VALENTIN Registered Nurse 10/28/20 documented as of this encounter
--- OUTSIDE RECORDS SUMMARY | 2024-11-23 14:30 | XMS_ITS | Clinical Summary ---
Author Organization [facility] Address [address] [place] [address] Phone Care Team Providers Care Photonic Laboratory Technician Name Role Phone Unavailable Primary Care [...] on file Legal Sex Male 7:29 AM TECHNICAL PRODUCER Gender Identity Not on file Sexual Orientation [...] 7:00 AM CDT Height 185.4 cm (6' 1) 11/14/2017 8:00 PM TECHNICAL PRODUCER Body Mass Index 32.06 11/14/2017 8:00 PM TECHNICAL PRODUCER Plan of Treatment Health Maintenance Due Date [...] Comments LIPID PANEL Routine 11/15/2017 5:52 AM TECHNICAL PRODUCER HEMOGLOBIN A1C Routine 11/15/2017 5:52 AM TECHNICAL PRODUCER from Last 3 Months or Most Recently Relevant to Health Maintenance Results * HEMOGLOBIN A1C (11/15/2017 5:52 AM TECHNICAL PRODUCER) HEMOGLOBIN A1C 6.0 4.0 - 6.0 % 11/15/2017 11:[address] [facility] EST. AVG GLUCOSE, A1C 126 mg/dL 11/15/2017 11:[address] [facility] Blood Venipuncture / Unknown 11/15/2017 5:52 AM TECHNICAL PRODUCER 11/15/2017 10:35 AM TECHNICAL PRODUCER Zackary Alfonso [facility] CHEMISTRY ORDERABLES F inal Result [facility] CLIA# [id number] [address] [facility] [address] [place] [address] * (ABNORMAL) LIPID PANEL (11/15/2017 5:52 AM TECHNICAL PRODUCER) CHOLESTEROL 119 <200 mg/dL 11/15/2017 11:[address] [facility] TRIGLYCERIDE 121 <150 mg/dL 11/15/2017 11:[address] [facility] HDL 24(L) 40 - 59 mg/dL 11/15/2017 11:[address] [facility] LDL CALCULATED 71 <100 mg/dL 11/15/2017 11:[address] [facility] NON-HDL CHOLESTEROL 95 <130 mg/dL 11/15/2017 11:[address] [facility] Blood Venipuncture / Unknown 11/15/2017 5:52 AM TECHNICAL PRODUCER 11/15/2017 10:35 AM TECHNICAL PRODUCER Narrative [facility] - 11/15/2017 11:33 AM TECHNICAL PRODUCER TOTAL CHOLESTEROL mg/dL Desirable <200 Borderline high [...] F inal Result [facility]# [id number] [address] [place] [address] from Last 3 Months or Most Recently Relevant to Health Maintenance Insurance [facility] PREFERR[facility] Advance Directives For more information, please contact: [phone] * Full Code (Latest Code Status on File) Date Activated Date Inactivated Comments 11/14/2017 12:56 PM 11/21/2017 1:27 PM
--- OUTSIDE RECORDS SUMMARY | 2024-11-23 14:30 | XMS_ITS ---
Author Organization [facility] Address [address] [facility] [place] [address] Care Team Providers Care Cake Press Operator Helper Name Role Phone Sharri Argueta DO Primary Care Provider [phone] Qi Story RN Unavailable Unavailable Transplant Episode Liver Recipient [facility] ([place], [place]) - [facility] Organ Received: Liver Transplanted on 11/03/2017 Marked as Active Follow-up on 11/03/2017 Liver CoordinatorQi Story RN Phone: N/A Fax: N/A Email: N/A [place] Organ Diagnosis Organ Primary Contributory Liver Cirrhosis: [...]
[2024-11-23 17:34] VITALS: BP 160/92; PULSE 91; RESP 18; TEMP 36.8; O2SAT 99
[2024-11-23 18:35] VITALS: BP 165/83; PULSE 98; RESP 14; O2SAT 98
[2024-11-23] MEDS: SODIUM CHLORIDE 0.9% IV 1,000 ML 999 ML IV CONT ×2 (18:45→19:45)
[2024-11-23 18:55] LABS: Basophils Percent Auto 0.4 % (0.2-1.2); Eosinophils Absolute Auto 0.1 K/mm3 (0-0.3); Eosinophils Percent Auto 1.4 % (0-4.4); Hemoglobin 14.2 g/dL (14.0-18.0); Immature Granulocyte Absolute 0.05 K/mm3 (0.00-0.031); Immature Granulocyte Percent A 0.7 % (0-0.5); Immature Platelet Fraction Pct 4.7 % (0.9-11.2); Lymphocytes Absolute Auto 0.74 K/mm3 (0.9-3.2); Lymphocytes Percent Auto 10.4 % (18.3-44.2); Mean Corpuscular Hemoglobin 30.9 pg (26-34); Mean Corpuscular Volume 93.7 fl (80-100); Mean Platelet Volume 10.5 fl (7.4-10.4); Monocytes Absolute Auto 0.7 K/mm3 (0.1-0.6); Neutrophils Absolute Auto 5.5 K/mm3 (1.3-6.7); Neutrophils Percent Auto 77.1 % (45.5-73.1); Platelet Count Result 81 k/mm3 (150-375); Red Blood Count 4.59 M/mm3 (4.6-6.20); Red Cell Distribution Width 12.1 % (11.5-14.5); White Blood Count 7.1 K/mm3 (4.5-10.0)
--- NOTE | 2024-11-23 19:03 | ED_ITS ---
HPI - General Adult General Chief complaint: Recheck/Abnormal Lab/Rx Stated complaint: surgery on neck Saturday, trouble swallowing Time Seen by Provider: 11/23/24 18:37 History of Present Illness HPI narrative: 69-year-old male present to the emergency department for evaluation for increased difficulty swallowing. Patient did have anterior approach for C4-C5 fusion on Saturday at [place] by Dr. Be. Patient states he has not drank much fluids since he was discharged on Saturday. Patient does have anterior neck swelling, patient denies any difficulty breathing but states he is having pain with swallowing. Patient states the swelling has been constant since he was discharged he denies any acute worsening of the swelling denies any difficulty breathing. Patient was offered admission for evaluation due to the risk of bleeding and patient had a low platelet count. Patient declined admission at that time. Physical exam documented had at time of discharge reports a flat appearing neck. Related Data Home Medications ?Medication ?Instructions ?Recorded ?Confirmed ?Last Taken ?Type amlodipine 10 mg tablet 10 mg PO DAILY 07/28/19 11/20/24 11/20/24 History carvedilol 25 mg tablet 25 mg PO Q12H 07/28/19 11/20/24 11/20/24 History tacrolimus 1 mg capsule, 1 mg PO Q12H 08/11/19 11/20/24 11/20/24 History immediate-release triamcinolone acetonide 55 mcg 1 spray intranasal DAILY PRN sinus 08/11/19 09/22/24 Unknown History nasal spray aerosol (Nasacort) symptoms loratadine 10 mg tablet (Claritin) 10 mg PO DAILY 04/17/21 11/20/24 11/19/24 History doxazosin 8 mg tablet 8 mg PO DAILY 04/16/24 11/20/24 11/19/24 History magnesium oxide 400 mg PO DAILY 06/05/24 11/20/24 11/19/24 History metformin 500 mg tablet 1,000 mg PO BID 11/04/24 11/20/24 11/19/24 History Allergies Allergy/AdvReac Type Severity Reaction Status Date / Time Penicillins Allergy Unknown UNKNOWN Verified 11/20/24 06:58 ibuprofen AdvReac Other/avoid Verified 11/20/24 06:58 s CEPHALEXIN MONOHYDRATE AdvReac Unknown GI DISTRESS Uncoded 11/20/24 06:58 Review of Systems 2 Review of Systems: All systems reviewed & are unremarkable except as noted in HPI and below PMFSH Past Medical History Medical History Seizures Chronic headaches Diabetes Asthma Allergies Hepatitis C antibody test negative (02/23/12) Surgical History Surgical History H/O inguinal hernia repair H/O kyphoplasty Hx of carpal tunnel repair Bilateral - January and February 2023 Liver transplant recipient (~2017) Family History Family History Grandparent Diabetes mellitus Acute myocardial infarction Cerebrovascular accident Mother Family history of malignant neoplasm, Onset Age: 41 Father Hypertension Other Family history of alcoholism Family history of blood dyscrasia Social History Social History Smoking packs per day: 2 Smoking cigarettes per day: 40.0 Years smoked: 12 Smoking pack-years: 24.00 Smoking status: Former smoker Tobacco type: cigarettes Smoking end date: 12/15/84 Alcohol intake: never Substance use: never Substance use type: does not use Do You Feel Safe in your Home?: Yes Lack of Transportation: No Lack of Food: Never True Current Housing: I Have Housing Concerned About Future Housing: No Difficulty Paying Gas/Electric Bills: No Difficulty Paying for Meds: No Currently Unemployed: No Education: Associate Degree Difficulty w/ Childcare or Family Care: No Living arrangements: with family Additional living arrangements comments: Spiritual care concerns: No Exam 2 Narrative: APPEARANCE: Well appearing, no pain, no distress, well-nourished. HEAD: normocephalic, atraumatic. EYES: PERRLA/EOMI, conjunctivae clear. NOSE: Normal no drainage EARS:TMS clear with good light reflex. THROAT: Pharynx clear, no exudate. NECK: Anterior neck swelling, no stridor RESPIRATORY: Airway patent, respirations nonlabored. Clear to auscultation bilaterally, no rales, rhonchi, wheezing. CARDIOVASCULAR: Regular rate and rhythm without murmurs rubs or gallops. ABDOMINAL: Soft, nontender, nondistended, normal bowel sounds MUSCULOSKELETAL: Moves all extremities. Strength/ROM intact, No edema, No calf tenderness. NEURO: Alert. Cranial nerves II through XII intact. Good gait. Good coordination SKIN: Warm, dry. Normal Color Course Vital Signs Vital signs: Vital Signs Temperature 97.7 F 11/23/24 12:09 Pulse Rate 93 11/23/24 12:09 Respiratory Rate 15 11/23/24 12:09 Blood Pressure 139/78 11/23/24 12:09 Pulse Oximetry 99 11/23/24 12:09 Oxygen Delivery Room Air 11/23/24 12:09 Temperature 98.2 F 11/23/24 17:34 Pulse Rate 108 H 11/23/24 21:00 Respiratory Rate 15 11/23/24 21:00 Blood Pressure 160/79 H 11/23/24 21:00 Pulse Oximetry 97 11/23/24 21:00 Oxygen Delivery Room Air 11/23/24 19:50 Medical Decision Making MDM Narrative Medical decision making narrative: 69-year-old male presents emergency department for evaluation for anterior neck swelling. Patient is currently afebrile with no leukocytosis and hemoglobin of 14.2. Patient does have a thrombocytopenia but platelets are slightly improved compared to his last, platelets were 81. INR is 1.1. No significant acute abnormalities on the patient's CMP. CT scan was read as Postoperative change is identified within the area of clinical concern, as one might expect after surgical intervention. Punctate foci of air as well as soft tissue swelling are noted. No rim-enhancing fluid collection is appreciated. At the level of the thyroid cartilage, to the left of midline is a 2.8 cm circumlinear focus of increased attenuation, likely related to patient's recent intervention. Fixation hardware is noted. On physical exam patient has no stridor no complaint of shortness of breath. Radiology did not feel there was any impingement the patient's airway. Case was discussed with Dr. Be and he want the patient started q.6 hours or dexamethasone, Protonix and IV fluids. He will see the patient as consult requested the hospitalist admit. Differential Diagnosis Differential Diagnosis: Abscess, hematoma, postop swelling, airway impingement, esophageal pressure Vital Signs Vital Signs: Vital Signs Temperature 97.7 F 11/23/24 12:09 Pulse Rate 93 11/23/24 12:09 Respiratory Rate 15 11/23/24 12:09 Blood Pressure 139/78 11/23/24 12:09 Pulse Oximetry 99 11/23/24 12:09 Oxygen Delivery Room Air 11/23/24 12:09 Temperature 98.2 F 11/23/24 17:34 Pulse Rate 108 H 11/23/24 21:00 Respiratory Rate 15 11/23/24 21:00 Blood Pressure 160/79 H 11/23/24 21:00 Pulse Oximetry 97 11/23/24 21:00 Oxygen Delivery Room Air 11/23/24 19:50 Lab Data Lab results reviewed: Yes I reviewed the patient's lab results. 11/23/24 18:44 11/23/24 18:44 Labs: Lab Results 11/23/24 11/23/24 Range/Units 18:42 18:44 WBC 7.1 (4.5-10.0) K/mm3 RBC 4.59 L (4.6-6.20) M/mm3 Hgb 14.2 (14.0-18.0) g/dL Hct 43.0 (42.0-52.0) % MCV 93.7 (80-100) fl MCH 30.9 (26-34) pg MCHC 33.0 (32-36) g/dl RDW 12.1 (11.5-14.5) % Plt Count 81 L (150-375) k/mm3 MPV 10.5 H (7.4-10.4) fl Immature Gran % (Auto) 0.7 H (0-0.5) % Neut % (Auto) 77.1 H (45.5-73.1) % Lymph % (Auto) 10.4 L (18.3-44.2) % [place] % (Auto) 10.0 H (2.6-8.5) % Eos % (Auto) 1.4 (0-4.4) % Baso % (Auto) 0.4 (0.2-1.2) % Lymph # (Auto) 0.74 L (0.9-3.2) K/mm3 [place] # (Auto) 0.7 H (0.1-0.6) K/mm3 Eos # (Auto) 0.1 (0-0.3) K/mm3 Baso # (Auto) 0.0 (0.0-0.1) K/mm3 Abs Immat Gran (auto) 0.05 H (0.00-0.031) K/mm3 Absolute Neuts (auto) 5.5 (1.3-6.7) K/mm3 Absolute Nucleated RBC 0.000 (0.0-0.012) K/mm3 Nucleated RBC % 0.0 (0.0-0.2) % % Immature Plt Fraction 4.7 (0.9-11.2) % PT 14.9 H (11.1-14.7) Seconds INR 1.1 APTT 30.6 (22.3-36.8) Seconds Sodium 140 (137-145) mmol/L Potassium 4.1 (3.4-5.0) mmol/L Chloride 102 (98-107) mmol/L Carbon Dioxide 22 (22-30) mmol/L Anion Gap 16 H (4-12) mmol/L BUN 26 H (9-20) mg/dL Creatinine 1.17 (0.7-1.3) mg/dL Estim Creat Clear Calc 58 ml/min Estimated GFR > 60 (59 - ) Glucose 132 H (65-110) mg/dL Calcium 9.0 (8.4-10.2) mg/dL Total Bilirubin 1.5 H (0.2-1.3) mg/dL AST 22 (17-59) U/L ALT 25 (6-50) U/L Alkaline Phosphatase 65 (38-126) U/L Total Protein 7.0 (6.3-8.2) g/dL Albumin 4.1 (3.5-5.1) g/dL Influenza A (RT-PCR) Negative (Negative) Influenza B (RT-PCR) Negative (Negative) RSV (RT-PCR) Negative (Negative) SARS-CoV-2 RNA (RT-PCR) Negative (Negative) Imaging Data Radiologist's impression: Impressions Soft Tissue Neck CT 11/23/24 20:12 IMPRESSION: Perioperative appearance of the neck on postoperative day 3 after anterior approach for cervical spine fusion, as detailed above. Discharge Plan Discharge Clinical Impression: Dysphagia, Post-op pain Patient Disposition: Still a Patient Condition: Stable
[2024-11-23 19:05] LABS: INR 1.1; Partial Thromboplastin Time 30.6 Seconds (22.3-36.8); Prothrombin Time 14.9 Seconds (11.1-14.7)
[2024-11-23 19:06] LABS: Alanine Aminotransferase 25 U/L (6-50); Albumin Level 4.1 g/dL (3.5-5.1); Alkaline Phosphatase 65 U/L (38-126); Anion Gap 16 mmol/L (4-12); Aspartate Amino Transferase 22 U/L (17-59); Bilirubin,Total 1.5 mg/dL (0.2-1.3); Blood Urea Nitrogen 26 mg/dL (9-20); Carbon Dioxide 22 mmol/L (22-30); Chloride 102 mmol/L (98-107); Estimated CRCL calculation 58 ml/min; Estimated Glomerular Filt Rate > 60; Glucose 132 mg/dL (65-110); Potassium 4.1 mmol/L (3.4-5.0); Sodium 140 mmol/L (137-145)
--- OUTSIDE RECORDS SUMMARY | 2024-11-23 19:20 | XMS_ITS ---
Author Organization [facility] Address [address] 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 -start TAC oint BID PRN w wet wraps, instructions provided Multiple benign melanocytic nevi of upper extremity, lower extremity, and trunk 11/04/2020 Assessment & Plan (11/04/2020 12:01 PM MOTION PICTURE DIRECTOR): - None atypical or more concerning than others on exam today - Counseled on importance of daily sun protection, and monthly self skin exams - Reviewed ABCDEs of melanoma - Advised sun protective behaviors and regular sun screen use - Annual FBSE Lentigines 11/04/2020 Assessment & Plan (11/04/2020 12:01 PM MOTION PICTURE DIRECTOR): -Benign, reassurance Other specified dermatitis 11/04/2020 Seborrheic keratosis 11/04/2020 Neutropenia 10/28/2020 History of hepatocellular carcinoma 11/20/2018 Long-term use of immunosuppressant medication Benign essential HTN 08/28/2018 IPMN (intraductal papillary mucinous neoplasm) 0 05/23/2018 Fatty pancreas 05/08/2018 Right inguinal hernia 05/08/2018 Overview (05/08/2018): Indirect Diabetes mellitus type 2, uncontrolled 8 Pre-transplant evaluation for liver transplant 0 12/23/2017 Overview (12/23/2017): LISTED Diagnosis: BRADSHAW/HCC Referring Live In Companion: Andrew Alert: Will need renoportal at the [...] patient's support system and discharge plan. Plan: set up worker to provide supportive services as needed. Patient appears to be a reasonable candidate for transplant from a psychosocial perspective, pending: - Post transplant arrangement forms are needed prior to being listed, with confirmation. Psychiatric Consult Recommended: No Transplant Senior Accounting Clerk: MIKY OVERTON RD: 24 Hour Recall/food frequency: eggs, chocolate milk, salad, spaghetti, hamburger, [place] - loaiza seared, mash potatoes, broccoli, corn cauliflower, apples, ham and cambodian, lettuce and tomato sandwich, Ramen noodles about [...] Transplant Date: 11/03/2017 Donor: Standard criteria donor [id number] CMV D-/R-, EBV D+/R+ Pre-Transplant Summary: ESLD [...] PCP Adjustments: Readmissions: Biopsies: Explant Liver, explant, pauma hepatectomy (A): - Cirrhosis (history of BRADSHAW) - Completely necrotic nodule in right lobe (4.0 cm) - Macroregenerative nodules, multifocal - Focal dysplasia (small and large cell changes) - Hepatocellular iron focally up to 4+ - No viable hepatocellular carcinoma identified Gallbladder, pauma hepatectomy (A): - Mild chronic cholecystitis Gallbladder, [...] cirrhosis. The PAS-D stain is negative for [id number] globules. The iron stain shows granular hepatocellular [...] from the prior study (LR 3). 2. Gxdces-anjmf-[id number] venous anastomosis, with unchanged aneurysmal dilatation at [...] liver without washout (LR 3). 2. Patent rlbgue-roign-ljqqzm venous anastomosis, with unchanged aneurysmal dilatation of [...] recommended. Assessment & Plan (11/04/2020 12:01 PM MOTION PICTURE DIRECTOR): -discussed inc risk NMSC/MM - Reviewed ABCDEs [...] treatments are documented for this patient in [facility]. Treatments may have been administered in [...]
--- OUTSIDE RECORDS SUMMARY | 2024-11-23 19:21 | XMS_ITS | Patient Health Summary ---
Author Organization [facility] Address [address] [place] [address] Care Team Providers Care Youth Worker Name Role Phone Sharri Argueta DO Primary Care Provider [phone] Qi Story RN Unavailable Unavailable Note from [facility],non-owned Affiliates and Associated Physician Practices is amultiple site organization consisting of ambulatory clinics and hospital sitesin [place], [place], [place] and [place]. This disclosure is being madepursuant to the Care Everywhere program and may not contain all information available regarding this patient. Last updated 18.[facility] Allergies * Cephalexin(Nausea and/or Vomiting,Other) [...] and hyponatremia 09/12/2015 12/23/2017 Immunizations * Covid Laurel [employer] Wolf primary monovalent 12+ yr 0.3mL Purple cap(Given [...] Sexual Orientation Straight 07/31/2024 7: 47 PM MANAGER LAND Last Filed Vital Signs Vital Sign Reading Time Taken Comments Blood Pressure 137/83 07/21/2024 1:48 PM MANAGER LAND Pulse 74 07/21/2024 1:48 PM MANAGER LAND Temperature 36.4 C (97.5 F) 05/31/2023 1:01 PM CDT Respiratory Rate 18 07/21/2024 1:48 PM MANAGER LAND Oxygen Saturation 99% 07/21/2024 1:48 PM MANAGER LAND Inhaled Oxygen Concentration - - Weight 93.7 kg (206 lb 9.6 oz) 07/21/2024 1:48 P M MANAGER LAND Height 182.9 cm (6') 07/21/2024 1:48 PM MANAGER LAND Body Mass Index 28.02 07/21/2024 1:48 PM MANAGER LAND Procedures * TACROLIMUS LEVEL(Performed 07/15/2024) Performed for [...] ABDOMEN MULTI PHASE W CONT(Performed 04/20/2016) * OGFFY-1-WQSWYOFYWUH BLOOD PHENOTYPING PANEL(Performed 03/26/2016) * CBC W [...] HEPATITIS B CORE ANTIBODY TOTAL(Performed 09/14/2015) * BJNFI-5-HXBRJXRWCBM BLOOD(Performed 09/14/2015) * CERULOPLASMIN(Performed 09/14/2015) * BASIC [...] 09/11/2015) * HEPATITIS C ANTIBODY(Performed 09/11/2015) * HHPYO-8-TLWXYFIBNGX BLOOD(Performed 09/11/2015) * GLUCOSE ACCUCHECK(Performed 09/11/2015) * [...] Results * TACROLIMUS LEVEL (07/15/2024 8:06 AM MANAGER LAND) Only the most recent of82 resultswithin the time period is included. Tacrolimus 6.2 mcg/L [facility] Comment: No definitive therapeutic or toxic ranges have been established. Optimal blood drug levels are influenced by type of transplant, patient response, time post- transplant, co-administration of other drugs, and drug formulation. The following trough range is a suggested guideline: 5.0-20.0 mcg/L. Test Performed at: [facility] [address] [place] [address] KAMAR ALEXANDRE MD Blood BLOOD SPECIMEN / Unknown 07/15/2024 8:06 AM MANAGER LAND 07/15/2024 8:07 AM MANAGER LAND Ramon Morales MD LAB - THERAPEUTIC DR NICK MONITORING ORDERABLES [facility] [address] [place] [address] * (ABNORMAL) CBC WITH DIFFERENTIAL (07/15/2024 8:06 AM MANAGER LAND) Only the most recent of132 resultswithin the [...] 0.6 % [facility] Comment: Test Performed at: [facility] [address] [place] [address] KAMAR ALEXANDRE MD Blood BLOOD SPECIMEN / Unknown 07/15/2024 8:06 AM MANAGER LAND 07/15/2024 8:07 AM MANAGER LAND Ramon Morlaes MD LAB - HEMATOLOGY ORD ERABLES Performing Organization Address [facility] Co de Phone Number [facility] [address] [place] [address] * (ABNORMAL) COMPREHENSIVE METABOLIC PANEL (07/15/2024 8:06 AM MANAGER LAND) Only the most recent of51 resultswithin the [...] 46 U/L [facility] Comment: Test Performed at: [facility] [address] [place] [address] KAMAR ALEXANDRE MD Blood BLOOD SPECIMEN / Unknown 07/15/2024 8:06 AM MANAGER LAND 07/15/2024 8:07 AM MANAGER LAND Ramon Morales MD LAB - CHEMISTRY LUIS ENRIQUE CELIS Performing Organization Address [facility] Co de Phone Number [facility] [address] [place] [address] * (ABNORMAL) DIFFERENTIAL MANUAL REFLXED III (02/12/2024 [...] perform a manual review. Test Performed at: [facility] [id number] [place] [address] KAMAR ALEXANDRE MD 02/12/2024 7:43 AM CDT 02/12/2024 7:43 AM CDT Ramon Morales MD LAB - HEMATOLOGY ORD ERABLES [facility] [address] [place] [address] * MRI ABDOMEN W MRCP WWO CONT [...] IPMN. > Dictated by Reshma Hairston MD (president commercial bank). I, Raymond Dean MD have personally reviewed and interpreted this examination/study. > Interpreting Provider: Raymond Dean MD on 12/06/2023 4:25 PM Narrative 12/06/2023 4:25 PM CDT EXAMINATION: MRI ABDOMEN W MRCP WWO CONT W3D DATE/TIME OF EXAM: 12/06/2023 11:29 AM, LOCATION [facility] HISTORY: I10: Benign essential HTN [...] OF EXAM: 12/06/2023 11:29 AM, LOCATION [facility] HISTORY: I10: Benign essential HTN [...] IPMN. > Dictated by Reshma Hairston MD (president commercial bank). I, Raymond Dean MD have personally reviewed [...] LDL-C. Mick SS et al. BRODIE. 2013;310(19): 1606-4329 (http://education.Augure/faq/WTB398) CHOL/HDLC RATIO 4.0 <5.0 (calc) [facility] Non HDL Cholesterol 126 <130 mg/dL (calc) [facility] Comment: For patients with diabetes plus 1 major ASCVD risk factor, treating to a non-HDL-C goal of <100 mg/dL (LDL-C of <70 mg/dL) is considered a therapeutic option. Test Performed at: [facility] [address] [place] [address] KAMAR ALEXANDRE MD 05/22/2023 8:07 AM CDT 05/22/2023 8:07 AM CDT Ramon Morales MD LAB - CHEMISTRY ORDSherrill [facility] [address] [place] [address] * MRI ABDOMEN WWO CONTRAST (10/18/2022 10:40 AM MANAGER LAND) Only the most recent of10 resultswithin the time period is included. Anatomical Region Laterality Modality Abdomen Magnetic Resonan ce 10/18/2022 11:2 1 AM MANAGER LAND Impressions 10/18/2022 11:36 AM MANAGER LAND Impression: 1.Redemonstrated postoperative changes from orthotopic liver [...] Report dictated by FADY ESPARZA MD, MD (president commercial bank). > Interpreting Provider: FADY ESPARZA MD on 10/18/2022 11:36 AM Narrative 10/18/2022 11:36 AM MANAGER LAND PROCEDURE: MRI ABDOMEN WWO CONTRAST, DATE/TIME OF EXAM: 10/18/2022 10:40 AM, LOCATION [facility] INDICATION: Z94.4: S/P liver transplant [...] OF EXAM: 10/18/2022 10:40 AM, LOCATION [facility] INDICATION: Z94.4: S/P liver transplant [...] confluence. Report dictated by FADY ESPARZA MD, (president commercial bank). > Interpreting Provider: FADY ESPARZA MD on 10/18/2022 11:36 AM Ramon Morales MD MR ORDERABLES * CT CHEST WO CONTRAST (10/18/2022 9:10 AM MANAGER LAND) Only the most recent of9 resultswithin the time period is included. Anatomical Region Laterality Modality Chest Computed Tomogra phy 10/18/2022 10:1 8 AM MANAGER LAND Impressions 10/18/2022 4:41 PM MANAGER LAND Impression: Unchanged bilateral nodules measuring up to 2 mm. > Dictated by Jose Anthony MD, MD (president commercial bank). > Dictated by Jose Anthony MD (Lime Mixer Tender) 10/18/2022 2:09 PM IRaymond MD have personally reviewed and interpreted this examination/study. > Interpreting Provider: Raymond Dean MD on 10/18/2022 4:41 PM Narrative 10/18/2022 4:41 PM MANAGER LAND PROCEDURE: CT CHEST WO CONTRAST, DATE/TIME OF EXAM: 10/18/2022 9:10 AM, LOCATION [facility] INDICATION: Z94.4: S/P liver transplant [...] OF EXAM: 10/18/2022 9:10 AM, LOCATION [facility] INDICATION: Z94.4: S/P liver transplant [...] > Dictated by Jose Anthony MD, MD (president commercial bank). > Dictated by Jose Anthony MD (Lime Mixer Tender) 10/18/2022 2:09 PM I, Raymond Dean MD have personally reviewed and interpreted this examination/study. > Interpreting Provider: Raymond Dean MD on 10/18/2022 4:41 PM [address]on Morales MD CT ORDERABLES * (ABNORMAL) PLATELET ESTIMATE REFLEXED (04/19/2022 7:55 AM CDT) Only the most recent of29 resultswithin the time period is included. [facility] Platelet Estimation DECREASED (A) ADEQUATE [facility] Comment: Test Performed at: [facility] [address] [place] [address] PETER HOFFMANN DO,MPH 04/19/2022 7:55 AM CDT 04/19/2022 7:55 AM CDT Ramon Morales MD LAB - HEMATOLOGY ORD ERABLES [facility] [address] [place] [address] * CREATININE - POCT INTERFACED (10/17/2021 10:28 AM MANAGER LAND) Only the most recent of2 resultswithin the time period is included. [facility] Creatinine POCT 0.64 0.30 - 1.30 mg/dL 10/17/2021 10:30 AM [facility] eGFR >90 >90 mL/min/1.7 3 m2 10/17/2021 10:30 AM [facility] Blood BLOOD SPECIMEN / Unknown 10/17/2021 10:28 AM MANAGER LAND 10/17/2021 10:30 AM [facility] Ramon Morales MD LAB - POINT OF CARE ORDERABLES [facility] [address] [place] [address], [facility] [phone] * (ABNORMAL) BASIC METABOLIC PANEL (CALCIUM TOTAL) [...] approximately 13% higher for people identified as -Gibraltarian. eGFR by MDRD 56(L) > OR = [...] 10.3 mg/dL [facility] Comment: Test Performed at: [facility] [address] [place] [address] PETER HOFFMANN DO,MPH Blood BLOOD SPECIMEN / Unknown 04/12/2021 7:54 AM CDT 04/12/2021 7:54 AM CDT Ramon Morales MD LAB - CHEMISTRY LUIS ENRIQUE SUSHMACALLI Performing Organization Address [facility] de Phone Number [facility] [phone] [place], [place] [phone] * HEPATIC FUNCTION PANEL (04/12/2021 7:54 AM [...] 46 U/L [facility] Comment: Test Performed at: [facility] [address] PETER HOFFMANN DO,MPH Blood BLOOD SPECIMEN / Unknown 04/12/2021 7:54 AM CDT 04/12/2021 7:54 AM CDT Ramon Morales MD LAB - CHEMISTRY LUIS ENRIQUE CELIS Performing Organization Address [facility] de Phone Number [facility] [address] [place] [address] * MAGNESIUM BLOOD (04/12/2021 7:54 AM CDT) Only the most recent of82 resultswithin the time period is included. Magnesium 1.9 1.5 - 2.5 mg/dL [facility] Comment: Test Performed at: [email or web address] [address] PETER HOFFMANN DO,MPH Blood BLOOD SPECIMEN / Unknown 04/12/2021 7:54 AM CDT 04/12/2021 7:54 AM CDT Ramon Morales MD LAB - CHEMISTRY LUIS ENRIQUE CELIS [facility] Organization Address City/State/ZIP Co de Phone Number [facility] [address] [place] [address] * BONE DENSITY AXIAL SKELETON(1OR MORE SITES)[id number] (11/16/2020 3:21 PM MANAGER LAND) Anatomical Region Laterality Modality Other 11/16/2020 5:01 PM MANAGER LAND Addenda Addendum by Jj Mancilla DO on 11/16/2020 5:27 PM MANAGER LAND ORIGINAL REPORT Examination: Dual energy x-ray absorptiometry [...] ordering physician and is also available on [employer], the Radiology Department's computerized picture archive system. [...] 5:24 PM . Narrative 11/16/2020 5:07 PM MANAGER LAND Examination: Dual energy x-ray absorptiometry of the [...] ordering physician and is also available on [employer], the Radiology Department's computerized picture archive system. [...] ordering physician and is also available on [employer], the Radiology Department's computerized picture archive system. [...] JJ MANCILLA D.O. on11/16/2020 5:07 PM . Ramno Morales MD DEXA ORDERABLES * CT FACIAL BONES WO CONTRAST (11/16/2020 1:15 PM MANAGER LAND) Anatomical Region Laterality Modality Head Computed Tomogra phy 11/16/2020 1:18 PM MANAGER LAND Impressions 11/16/2020 8:11 PM MANAGER LAND IMPRESSION: 1.No acute intracranial hemorrhage, midline shift, [...] correlate clinically. Dictated by Mayur Victoria DO (rn residential) I, Dr. RICO COLEMAN have personally reviewed and interpreted this examination/study. This report was electronically signed by RICO COLEMAN on 11/16/2020 8:11 PM . Narrative 11/16/2020 8:11 PM MANAGER LAND EXAMINATION: 1. CT OF THE HEAD WITHOUT [...] correlate clinically. Dictated by Mayur Victoria DO (rn residential) Dr. RICO Reyes have personally reviewed and interpreted this examination/study. This report was electronically signed by RICO COLEMAN on 11/16/2020 8:11 PM . Teresa Robbyhannah SECURITY MESSENGER-[facility] CT ORDERABLES * CT HEAD WO CONTRAST (11/16/2020 1:15 PM MANAGER LAND) Only the most recent of5 resultswithin the time period is included. Anatomical Region Laterality Modality Head Computed Tomogra phy 11/16/2020 1:18 PM MANAGER LAND Impressions 11/16/2020 8:11 PM MANAGER LAND IMPRESSION: 1.No acute intracranial hemorrhage, midline shift, [...] correlate clinically. Dictated by Mayur Victoria DO (rn residential) Dr. RICO Reyes have personally reviewed and interpreted this examination/study. This report was electronically signed by RICO COLEMAN on 11/16/2020 8:11 PM . Narrative 11/16/2020 8:11 PM MANAGER LAND EXAMINATION: 1. CT OF THE HEAD WITHOUT [...] correlate clinically. Dictated by Mayur Victoria DO (rn residential) IDr. RICO have personally reviewed and interpreted this examination/study. This report was electronically signed by RICO COLEMAN on 11/16/2020 8:11 PM . Teresa [address] CT ORDERABLES * Laceration Repair (11/16/2020 12:46 PM MANAGER LAND) Paula Collins MD - 11/16/2020 12:46 PM MANAGER LAND Teresa Connor APRN-CNP 11/16/2020 6:38 PM Laceration [...] (ABNORMAL) CBC W/O DIFFERENTIAL (08/18/2020 8:22 AM MANAGER LAND) Only the most recent of22 resultswithin the [...] but greater than 30,000/uL. Test Performed at: [facility] [address] [place] [address] PETER HOFFMANN DO,MPH 08/18/2020 8:22 AM MANAGER LAND 08/18/2020 8:22 AM MANAGER LAND Ramon Morales MD LAB - HEMATOLOGY ORD ERABLES [facility] [address] [place] [address] * PATHOLOGY TISSUE (04/04/2020 10:08 AM CDT) Only the most recent of3 resultswithin the time period is included. Case Report Surgical Pathology Report Case: [id number] Authorizing Provider: Ramon Morales MD Collected: 04/04/2020 10:08 AM Ordering Location: [facility] ENDOSCOPY Received: 04/04/2020 12:17 PM Pathologist: [...] cassette B1. KK 04/05/2020 6:05 PM CDT [facility] PATHOLOGY LAB Disclaimer The performance characteristics of all immunohistochemical and indirect immunofluorescence stains (if any) cited in this report were determined by the Histopathology Laboratory of [facility]. Some of these tests were [...] attending (teaching) pathologist. 04/05/2020 6:05 PM CDT [facility] PATH[facility] Embedded Images 04/05/2020 6:05 PM CDT [facility] PATH[facility] LAB Biopsy, NOS [...] Morales MD LAB - PATHOLOGY/CYTO LOGY ORDERABLES [facility] PATHOLOGY LAB [address] [place] [address], [facility] [phone] * ENDOSCOPY, COLON, SCREENING (04/04/2020 9:37 AM [...] and oxygen saturations were monitored continuously. The [id number] was introduced through the anus and advanced to the cecum, identified by appendiceal orifice and ileocecal valve. The colonoscopy was performed without difficulty. The patient tolerated the procedure well. The quality of the bowel preparation was evaluated using the BBPS ([place]rokee Bowel Preparation Scale) with scores of: Right [...] non-shelby portions. Procedure Code(s): --- Professional --- 09606, Colonoscopy, flexible; with removal of tumor(s), polyp(s), or other lesion(s) by snare technique 23676, 59, Colonoscopy, flexible; with biopsy, single or multiple Diagnosis Code(s): --- Professional --- Z12.11, Encounter for screening for malignant neoplasm of colon K63.5, Polyp of colon K62.1, Rectal polyp CPT copyright 2019 [employer]. All rights reserved. The codes documented in this report are preliminary and upon corporate responsibility officer review may be revised to meet current compliance requirements. _ Ramon Morales MD 04/04/2020 10:34:35 AM This report has been signed electronically. Note Initiated On: 04/04/2020 9:37 AM Number of Addenda: 0 [facility] [address] [place], [place] [id number] [place] [address] 04/04/2020 9:37 AM CDT Elda Rashid MD GI PROCEDURE ORDERAB LES Performing Organization Address [facility] Co de Phone Number [facility] * (ABNORMAL) GLUCOSE - POINT OF CARE (04/04/2020 9:07 AM CDT) Only the most recent of2 resultswithin the time period is included. Glucose WB/POC 139(H) 70 - 115 mg/dL 04/04/2020 12:37 PM CDT [facility] Specimen Type Arterial/C apillary 04/04/2020 12:37 PM CDT [facility] Blood BLOOD SPECIMEN / Unknown 04/04/2020 9:07 AM CDT 04/04/2020 12:37 PM CDT Ramon Morales MD LAB - POINT OF CARE ORDERABLES Performing Organization Address City/[facility]/ZIP Co de Phone Number [address] [address], [facility] [phone] * (ABNORMAL) HEMOGLOBIN A1C (03/14/2020 8:46 AM [...] of diabetes for children. Test Performed at: [facility] [address] [employer] [address] PETER HOFFMANN DO,MPH 03/14/2020 8:46 AM CDT 03/14/2020 8:47 AM CDT Ramon Morales MD LAB - CHEMISTRY ORDE RABLES Performing Organization Address [facility] Co de Phone Number [facility] [address] [place] [address] * (ABNORMAL) PLATELET ESTIMATION (02/16/2019 8:10 AM CDT) Platelet Estimation DECREASED (A) ADEQUATE [facility] Comment: Test Performed at: [facility] [address] [employer] [address] PETER HOFFMANN DO,MPH 02/16/2019 8:10 AM CDT 02/16/2019 8:15 AM CDT Ramon Morales MD LAB - HEMATOLOGY ORD ERABLES Performing Organization Address [facility] Co de Phone Number [facility] [phone] [place] [address] * ENDOSCOPY, COLON, SCREENING (12/08/2018 8:23 AM [...] malignant neoplasm of colon CPT copyright 2016 [employer]. All rights reserved. The codes documented in this report are preliminary and upon corporate responsibility officer review may be revised to meet current compliance requirements. _ Ramon Morales MD 12/08/2018 9:39:14 AM This report has been signed electronically. Note Initiated On: 12/08/2018 8:23 AM Number of Addenda: 0 [place] [address] [facility] [place], [place] [id number] [place] [address] 12/08/2018 8:23 AM CDT Ramon Morales MD GI PROCEDURE ORDERAB LES Performing Organization Address [facility] Co de Phone Number [facility] * PHOSPHORUS BLOOD (11/24/2018 8:24 AM CDT) Only the most recent of66 resultswithin the time period is included. Phosphorus 3.4 2.5 - 4.5 mg/dL [facility] Comment: Test Performed at: [email or web address] [address] [place] [address] PETER HOFFMANN DO,MPH 11/24/2018 8:24 AM CDT 11/24/2018 8:24 AM CDT Ramon Morales MD LAB - CHEMISTRY LUIS ENRIQUE CELIS Performing Organization Address City/[facility] Co de Phone Number [facility] [address] [place] [address] * SLIDE SCAN HEMATOLOGY (11/10/2018 8:37 AM MANAGER LAND) Only the most recent of2 resultswithin the time period is included. Pathologist [facility] CBC Morphology NORMAL [facility] Comment: Ovalocytes 1 + Test Performed at: [email or web address] [address] [place] [address] PETER HOFFMANN DO,MPH 11/10/2018 8:37 AM MANAGER LAND 11/10/2018 8:37 AM MANAGER LAND Ramon Morales MD LAB - HEMATOLOGY ORD ERABLES Performing Organization Address [facility] Co de Phone Number [facility] [address] [place] [address] * CYTOMEGALOVIRUS DNA RT PCR QUANT BLOOD (10/13/2018 8:22 AM MANAGER LAND) Only the most recent of8 resultswithin the time period is included. Pathologist [facility] Source BLOOD [facility] Cytomegalovirus DNA Quantitative Real Time PCR <200 IU/mL [facility] Cytomegalovirus DNA Quantitative PCR <2.30 Log IU/mL [facility] Comment: REFERENCE RANGE: CMV DNA, QN PCR: <200 IU/mL CMV DNA, QN PCR: <2.30 Log IU/mL This test was developed and its analytical performance characteristics have been determined by [facility]. It has not been cleared or approved by the U.S. Food and Drug Administration. This assay has been validated pursuant to the CLIA regulations and is used for clinical purposes. Test Performed at: [facility], [address] [address] Zoltan DE SOUZA Blood BLOOD SPECIMEN / Unknown 10/13/2018 8:22 AM MANAGER LAND 10/13/2018 8:24 AM MANAGER LAND Ramon Morales MD LAB - CHEMISTRY ORDE RABCALLI Performing Organization Address City/[facility]/ZIP Co de Phone Number [facility] [address] [place] [address] * ALPHA FETOPROTEIN BLOOD TUMOR (07/07/2018 11:31 AM CDT) Only the most recent of9 resultswithin the time period is included. Pathologist [facility] Alpha-Fetoprotei n Tumor Marker 0.8 <6.1 ng/mL [facility] Comment: This test was performed using the Doug Davis chemiluminescent method. Values obtained from different assay methods cannot be used interchangeably. AFP levels, regardless of value, should not be interpreted as absolute evidence of the presence or absence of disease. Test Performed at: [place] [address] PETER HOFFMANN DO,MPH 07/07/2018 11:3 1 AM CDT 07/07/2018 11:32 AM CDT Ramon Morales MD LAB - CHEMISTRY ORDSherrill RABCALLI Performing Organization Address [facility] Co de Phone Number [facility] [address] [place] [address] * TSH (04/14/2018 10:26 AM CDT) Only the most recent of2 resultswithin the time period is included. Pathologist [facility] TSH 1.43 0.40 - 4.50 mIU/L [facility] Comment: Test Performed at: [facility] [address] [place] [address] PETER HOFFMANN DO,MPH Blood BLOOD SPECIMEN / Unknown 04/14/2018 10:26 AM CDT 04/14/2018 10:27 AM CDT Sobeida Griffin APRN-HONORIO LAB - CHEMISTRY O RDERABLES Performing Organization Address [facility] Co de Phone Number [facility] [phone] [place] [address] * CYTOMEGALOVIRUS DNA RT-PCR QUANT (03/03/2018 10:05 [...] * * storage. * Test Performed at: [facility] [address] [place] [address] Zoltan DE SOUZA Microbiology BLOOD SPECIMEN / Unknown 03/03/2018 10:05 AM CDT 03/03/2018 10:06 AM CDT Sobeida Griffin SECURITY MESSENGER-CHIEF OF PRODUCTION LAB - MICROBIOLOG Y ORDERABLES [facility] [address] [place] [address] * CT ABDOMEN MULTI PHASE W CONT [...] follow-up recommended. Dictated by Ramon Sandoval MD (president commercial bank). I, Dr. ISRAEL CORTÉS M.D. have personally [...] follow-up recommended. Dictated by Ramon Sandoval MD (president commercial bank). I, Dr. ISRAEL CORTÉS M.D. have personally [...] CHEM PROFILE (EXTERNAL RESULT ENTRY) (12/12/2017) Pathologist [facility] Glucose (EXTERNAL RESULT) 198(H) mg/dl BUN [...] * (ABNORMAL) GLUCOSE ACCUCHECK (11/14/2017 11:15 AM MANAGER LAND) Only the most recent of129 resultswithin the time period is included. Pathologist [facility] Glucose, Fingerstick 262(H) 70-115mg/d L mg/dL [facility] ([place]) Comment:Edger Tailer: KALI DOMINGOY 11/14/2017 11:1 5 AM MANAGER LAND Janae Diaz MD LAB - CHEMISTRY LUIS ENRIQUE CELIS [facility] Organization Address City/State/ZIP Co de Phone Number [facility] ZULEYKA ([place]) * XR ABDOMEN KUB PORTABLE (11/09/2017 6:39 AM MANAGER LAND) Only the most recent of5 resultswithin the time period is included. Anatomical Region Laterality Modality Other Impressions 11/09/2017 2:35 PM MANAGER LAND IMPRESSION: There are multiple mildly dilated small bowel loops measuring up to 4.9 cm in diameter which could represent ileus or obstruction, not significantly changed. The supine radiographs are technically suboptimal for evaluation of pneumoperitoneum. Postsurgical changes of kyphoplasty/vertebroplasty are present inferior lumbar vertebral bodies. Degenerative changes are noted in the spine. Skin staple lines projects over the [id number]. Report dictated by Jneni An MD (president commercial [employer]). I, Dr. DASHAWN SUE MD have personally reviewed and interpreted this examination/study. This report was electronically signed by DASHAWN SUE MD on 11/09/2017 2:35 PM . Narrative 11/09/2017 2:35 PM MANAGER LAND EXAMINATION: PX ABDOMEN 1 VW HISTORY: Ileus [...] the spine. Skinstaple lines projects over the [id number]. Report dictated by Jenni An MD (president commercial [employer]). I, Dr. DASHAWN SUE MD have personally reviewed and interpreted thisexamination/study. This report was electronically signed by DASHAWN SUE MD on 11/09/20172:35 PM . Janae Diaz MD DIAGNOSTIC IMAGING O RDERABLES * (ABNORMAL) PTT [facility] (11/08/2017 2:22 PM MANAGER LAND) Only the most recent of14 resultswithin the time period is included. APTT 20.3(L) 23.0 - 38.4 Seconds [facility] Comment:Suggested therapeuti c range for full dose I.V. heparin therapy for venous thromboembolism is 66.0-91.0 seconds. Blood specimen (specimen) BLOOD SPECIMEN / Unknown 11/08/2017 2:22 PM MANAGER LAND 11/08/2017 2:58 PM MANAGER LAND Narrative [facility] - 11/08/2017 3:37 PM MANAGER LAND Please ensure that the aPTT specimen is received in the clinical lab within 1 hour of collection if it is used for therapeutic heparin monitoring. Processing of heparinized specimens older than 1 hour may result in inaccurate test results. Is patient on Heparin, Argatroban or Dabigatran?->N Janae Diaz MD LAB - COAGULATION OR DERABLES Performing Organization Address [facility] Co de Phone Number [address] [phone] * CARDIOLIPIN ANTIBODY IGA (11/08/2017 2:22 PM MANAGER LAND) Anticardiolipin Antibody IgA <15.0 <15.0 APL [facility] Blood specimen (specimen) BLOOD SPECIMEN / Unknown 11/08/2017 2:22 PM MANAGER LAND 11/08/2017 2:58 PM MANAGER LAND Janae Diaz MD LAB - SEROLOGY ORDER MAYRA Performing Organization Address [facility] Co de Phone Number [address] [phone] * CARDIOLIPIN ANTIBODY IGM (11/08/2017 2:22 PM MANAGER LAND) Anticardiolipin Antibody IgM <15.0 <15.0 MPL [facility] Blood specimen (specimen) BLOOD SPECIMEN / Unknown 11/08/2017 2:22 PM MANAGER LAND 11/08/2017 2:58 PM MANAGER LAND Janae Diaz MD LAB - SEROLOGY ORDER MAYRA [address] [phone] * CARDIOLIPIN ANTIBODY IGG (11/08/2017 2:22 PM MANAGER LAND) Anticardiolipin Antibody IgG <15.0 <15.0 GPL [facility] Blood specimen (specimen) BLOOD SPECIMEN / Unknown 11/08/2017 2:22 PM MANAGER LAND 11/08/2017 2:58 PM MANAGER LAND Janae Diaz MD LAB - SEROLOGY ORDER MAYRA Performing Organization Address [facility] de Phone Number [address] [phone] * (ABNORMAL) ANTITHROMBIN III ACTIVITY (11/08/2017 2:22 PM MANAGER LAND) APTT 20.3(L) 23.0 - 38.4 Seconds [facility] Comment:Suggested therapeuti c range for full dose I.V. heparin therapy for venous thromboembolism is 66.0-91.0 seconds. Antithrombin Activity 88 85 - 130 U/dL [facility] Blood specimen (specimen) BLOOD SPECIMEN / Unknown 11/08/2017 2:22 PM MANAGER LAND 11/08/2017 2:58 PM MANAGER LAND Narrative [facility] - 11/12/2017 11:19 AM MANAGER LAND Is patient on Heparin, Argatroban or Dabigatran?->N Janae Diaz MD LAB - COAGULATION OR DERABLES Performing Organization Address City/[facility]/ZIP Co de Phone Number [address] [phone] * (ABNORMAL) PROTEIN C FUNCTIONAL (11/08/2017 2:22 PM MANAGER LAND) APTT 25.8 23.0 - 38.4 Seconds [facility] PT 13.7 12.1 - 14.8 Seconds [facility] Protein C Activity 57(L) 70 - 130 U/dL [facility] Comment: Protein C may be abnormally low in the acute phase of thrombosis, other acute illnesses, liver disease, nephrotic syndrome, vitamin K deficiency, Warfarin therapy, and estrogen-oral contraceptive use. Adult Normal Reference Range. Not applicable to children or adolescents less than age 18 years. INR 1.1 [facility] Blood specimen (specimen) BLOOD SPECIMEN / Unknown 11/08/2017 2:22 PM MANAGER LAND 11/08/2017 2:58 PM MANAGER LAND Narrative [facility] - 11/12/2017 10:53 AM MANAGER LAND Is the patient on Coumadin?->N Janae Diaz MD LAB - CHEMISTRY ORDE RABLES [address] [phone] * [facility] (11/08/2017 2:22 PM MANAGER LAND) APTT 25.8 23.0 - 38.4 Seconds [facility] PT 13.7 12.1 - 14.8 Seconds [facility] INR 1.1 [facility] LA-DRVVT Screen 0.9 <1.2 [facility] Interpretation Dilute RVV Negative Negative [facility] Blood specimen (specimen) BLOOD SPECIMEN / Unknown 11/08/2017 2:22 PM MANAGER LAND 11/08/2017 2:58 PM MANAGER LAND Janae Diaz MD LAB - COAGULATION [place] [address], [facility] [phone] * (ABNORMAL) FACTOR VIII ASSAY (11/08/2017 2:22 PM MANAGER LAND) Factor VIII Activity 679(H) 45 - 225 U/dL [facility] Comment: Biologic population variability within [...] BLOOD SPECIMEN / Unknown 11/08/2017 2:22 PM MANAGER LAND 11/08/2017 2:58 PM MANAGER LAND Narrative [facility] - 11/11/2017 10:23 AM MANAGER LAND Is this a pre or post-infusion?->NA Janae Diaz MD LAB - COAGULATION OR DERABLES Performing Organization Address City/State/[facility] Co de Phone Number [address] [phone] * (ABNORMAL) PROTEIN S ACTIVITY (11/08/2017 2:22 PM MANAGER LAND) APTT 25.8 23.0 - 38.4 Seconds [facility] PT 13.7 12.1 - 14.8 Seconds [facility] Protein S Functional 65(L) 70 - 130 U/dL [facility] Comment: Functional Protein S assay [...] year and older. INR 1.1 See Comment [facility] Blood specimen (specimen) BLOOD SPECIMEN / Unknown 11/08/2017 2:22 PM MANAGER LAND 11/08/2017 2:58 PM MANAGER LAND Narrative [facility] - 11/12/2017 10:53 AM MANAGER LAND Is the patient on Coumadin?->N Janae Diaz MD LAB - COAGULATION OR DERABLES [address] [phone] * HOMOCYSTEINE BLOOD QUANTITATIVE (11/08/2017 2:22 PM MANAGER LAND) Homocysteine 8.0 4.4 - 16.2 umol/L [facility] Blood specimen (specimen) BLOOD SPECIMEN / Unknown 11/08/2017 2:22 PM MANAGER LAND 11/08/2017 2:58 PM MANAGER LAND Janae Diaz MD LAB - CHEMISTRY ORDE RABLES Performing Organization Address City/[facility]/ZIP Co de Phone Number [address] [phone] * (ABNORMAL) TEG CITRATED KAOLIN (CK) (11/08/2017 2:22 PM MANAGER LAND) Only the most recent of2 resultswithin the time period is included. G-Clot Strength 4.1(L) 4.5 - 11.0 d/sc [facility] Interpretation TEG See Comment [facility] React-Time 2.3(L) 5.0 - 10.0 MIN [facility] K-Time 3.5(H) 1.0 - 3.0 MIN [facility] Angle A-BB 55.4 53.0 - 72.0 Degrees [facility] MA (CK) BB 45.3(L) 50.0 - 70.0 mm [facility] LY30 8.6(H) 0.0 - 8.0 % [facility] CI-Coagulation Index -0.9 -3.0 - 3.0 [facility] Blood specimen (specimen) 11/08/2017 2:22 PM MANAGER LAND 11/08/2017 2:30 PM MANAGER LAND Narrative [facility] - 11/08/2017 4:28 PM MANAGER LAND SEE BELOW TEG Kaolin Sample Type Interpretation [...] MD LAB - BLOOD BANK ORD JULIO [facility] Organization Address City/State/ZIP Co de Phone Number [facility] [address] [place] [address] * LAB MISCELLANEOUS TEST 2 (11/08/2017 2:22 PM MANAGER LAND) Reference Lab Results SEE SCANNED REPORT [facility] REF LAB NON INTERF Other (qualifier value) 11/08/2017 2:22 PM MANAGER LAND 11/08/2017 3:27 PM MANAGER LAND Narrative [facility] REF LAB NON INTERF - 11/13/2017 11:19 AM MANAGER LAND Test Name:->Protrombin Gene Mutation Reference Lab Info:->U DNA Lab Janae Diaz MD LAB - CHEMISTRY LUIS ENRIQUE CELIS Performing Organization Address [facility]/ZIP Co de Phone Number [facility] REF LAB NON INTERF [address] [place] [address] * LAB MISC TEST (11/08/2017 2:22 PM MANAGER LAND) Reference Lab Results SEE SCANNED REPORT [facility] REF LAB NON INTERF Other (qualifier value) 11/08/2017 2:22 PM MANAGER LAND 11/08/2017 3:27 PM MANAGER LAND Narrative [facility] REF LAB NON INTERF - 11/13/2017 11:18 AM MANAGER LAND Test Name:->Factor V Leiden Reference Lab Info:->U DNA LAB Janae Diaz MD LAB SEND OUT Performing Organization Address [facility] Co de Phone Number [facility] REF LAB NON INTERF [address] [place] [address] * PATHOLOGY/GENETICS HISTORICAL-ONBASE (11/08/2017) 11/08/2017 Historical Provider LAB - CHEMISTRY O RDERABLES Performing Organization Address [facility]/ZIP Co de Phone Number [facility] [address] * US LIVER TRANSPLANT (11/07/2017 5:34 PM MANAGER LAND) Only the most recent of2 resultswithin the time period is included. Anatomical Region Laterality Modality Other Impressions 11/08/2017 4:46 PM MANAGER LAND IMPRESSION: 1. Normal sonographic appearance of the transplant liver. 2. Patent hepatic vasculature. Dictated by Royce Carter MD (president commercial [employer]). This report was approved by Royce Carter on 11/08/2017 9:47 AM . I, Dr. LESLY FERMIN M.D. have personally reviewed and interpreted this examination/study. This report was electronically signed by LESLY FERMIN M.D. on 11/08/2017 4:46 PM . Narrative 11/08/2017 4:46 PM MANAGER LAND EXAMINATION: 1. Limited right upper quadrant abdominal [...] hepatic vasculature. Dictated by Royce Carter MD (president commercial bank). This report was approved by Royce Carter on 11/08/2017 9:47 AM . I, Dr. LESLY FERMIN M.D. have personally reviewed and interpreted thisexamination/study. This report was electronically signed by LESLY FERMIN M.D. on 11/08/20174:46 PM . Janae Diaz MD US ORDERABLES * NM HEPATOBILIARY WO CCK EF (11/07/2017 1:35 PM MANAGER LAND) Anatomical Region Laterality Modality Abdomen Other Impressions 11/07/2017 3:02 PM MANAGER LAND Procedure: Hepatobiliary scan. History: 62-year-old male with elevated bilirubin status post liver transplantation. Technique: 10.23 mCi of [id number] injected IV; dynamic images of the abdomen [...] status post livertransplantation. Technique: 10.23 mCi of [id number]-Vtleofyc injected IV; dynamic images of theabdomen were [...] Janae Diaz MD NM ORDERABLES * PT-INR [facility] (11/07/2017 5:19 AM MANAGER LAND) Only the most recent of49 resultswithin the time period is included. PT 13.9 12.1 - 14.8 Seconds [facility] INR 1.1 See Comment [facility] Comment: Suggested therapeutic range for low-intensity coumadin therapy for venous thromboembolism prophylaxis is an INR of 2.0-3.0. For high risk patients (Mitral Valve Prosthesis, Atrial Fibrillation, history of TIA/stroke), suggested prophylactic therapeutic range is an INR of 2.5-3.5. Blood specimen (specimen) BLOOD SPECIMEN / Unknown 11/07/2017 5:19 AM MANAGER LAND 11/07/2017 5:24 AM MANAGER LAND Narrative [facility] - 11/07/2017 5:50 AM MANAGER LAND Is patient on Heparin, Argatroban or Dabigatran?->N Janae Diaz MD LAB - COAGULATION OR DERABLES [address] [phone] * LACTIC ACID BLOOD (11/04/2017 11:38 AM MANAGER LAND) Only the most recent of5 resultswithin the time period is included. [facility] Lactic Acid-Stat 0.6 0.5 - 2.2 mmol/L [facility] Blood specimen (specimen) BLOOD SPECIMEN / Unknown 11/04/2017 11:38 AM MANAGER LAND 11/04/2017 11:43 AM MANAGER LAND Janae Diaz MD LAB - CHEMISTRY ORDE RABLES [address] [phone] * (ABNORMAL) BLOOD GASES ART (11/04/2017 11:38 AM MANAGER LAND) Only the most recent of10 resultswithin the time period is included. Pathologist [facility] pH Arterial 7.40 7.35 - 7.45 [facility] pCO2 Arterial 34(L) 35 - 45 mmHg [facility] pO2 Arterial 75 71 - 95 mmHg [facility] HCO3 Arterial 20.3(L) 22.0 - 26.0 mmol/L [facility] TCO2 Arterial 21.3(L) 25.0 - 29.0 mmol/L [facility] Base Excess Arterial -3.9(L) -2.0 - 2.0 mmol/L [facility] Hemoglobin Arterial 10.7(L) 13.5 - 17.5 g/dL [facility] Oxyhemoglobin Arterial 92.6(L) 95.0 - 100.0 % [facility] Carboxyhemoglobin 0.6 0.0 - 3.0 % [facility] Methemoglobin 0.5 0.0 - 2.0 % [facility] FI O2 Arterial 40.0 % [facility] Blood specimen (specimen) BLOOD SPECIMEN / Unknown 11/04/2017 11:38 AM MANAGER LAND 11/04/2017 11:43 AM MANAGER LAND Janae Diaz MD LAB - BLOOD GASES OR DERABLES Performing Organization Address City/[facility]/ZIP Co de Phone Number [address] [phone] * (ABNORMAL) SVO2 FOR RECALIBRATION (11/04/2017 5:25 AM MANAGER LAND) Pathologist [facility] SVO2 for Recalibration 84.2(H) 66.0 - 77.0 % [facility] Blood specimen (specimen) BLOOD SPECIMEN / Unknown 11/04/2017 5:25 AM MANAGER LAND 11/04/2017 5:31 AM MANAGER LAND Janae Diaz MD LAB - CHEMISTRY ORDE RABLES [address] [phone] * (ABNORMAL) FIBRINOGEN ACTIVITY (11/03/2017 9:31 PM MANAGER LAND) Only the most recent of5 resultswithin the time period is included. Fibrinogen [place] 127(L) 200 - 400 mg/dL [facility] Blood specimen (specimen) BLOOD SPECIMEN / Unknown 11/03/2017 9:31 PM MANAGER LAND 11/03/2017 9:36 PM MANAGER LAND Janae Diaz MD LAB - COAGULATION OR DERABLES [facility] [address] [place] [address] * XR CHEST 1VW PORTABLE (11/03/2017 9:23 PM MANAGER LAND) Only the most recent of7 resultswithin the time period is included. Anatomical Region Laterality Modality Chest Other Impressions 11/04/2017 1:59 PM MANAGER LAND IMPRESSION: The endotracheal tube tip superimposes midthoracic trachea. The gastric tube terminates in gastric body. A left internal jugular approach [place]-Akiko catheter terminates in main pulmonary artery. A drain/catheter traverses the upper abdomen. Lung volumes are small. Mild bibasilar atelectasis are again noted. Left lower lobe opacification may represents pleural effusion with underlying atelectasis/airspace disease. No pneumothorax is identified. The cardiomediastinal silhouette is unchanged. Dictated by Kristyn Calzada MD (president commercial [employer]). I, Dr. WALTER BACA M.D. have personally reviewed and interpreted this examination/study. This report was electronically signed by WALTER BACA M.D. on 11/04/2017 1:59 PM . Narrative 11/04/2017 1:59 PM MANAGER LAND EXAMINATION: PX CHEST 1 VW HISTORY: cvc [...] is unchanged. Dictated by Kristyn Calzada MD (president commercial bank). I, Dr. WALTER BACA M.D. have personally reviewed and interpreted thisexamination/study. This report was electronically signed by WALTER BACA M.D. on 11/04/20171:59 PM . Janae Diaz MD DIAGNOSTIC IMAGING O RDERABLES * LACTIC ACID WHOLE BLOOD (11/03/2017 7:17 PM MANAGER LAND) Only the most recent of5 resultswithin the time period is included. Lactic Acid Whole Blood 1.1 0.5 - 3.4 mmol/L [facility] Blood specimen (specimen) BLOOD SPECIMEN / Unknown 11/03/2017 7:17 PM MANAGER LAND 11/03/2017 7:22 PM MANAGER LAND Jay Jay Heredia MD LAB - CHEMISTRY LUIS ENRIQUE CELIS Performing Organization Address City/[facility]/ZIP Co de Phone Number [address] [phone] * CHLORIDE WHOLE BLOOD (11/03/2017 7:17 PM MANAGER LAND) Only the most recent of5 resultswithin the time period is included. Chloride Whole Blood 105 101 - 111 mmol/L [facility] Blood specimen (specimen) BLOOD SPECIMEN / Unknown 11/03/2017 7:17 PM MANAGER LAND 11/03/2017 7:22 PM MANAGER LAND Jay Jay Heredia MD LAB - CHEMISTRY LUIS ENRIQUE CELIS [address] [phone] * (ABNORMAL) CALCIUM IONIZED WHOLE BLOOD (11/03/2017 7:17 PM MANAGER LAND) Only the most recent of5 resultswithin the time period is included. Ionized Calcium Whole Blood 1.05 mmol/L [facility] Adjusted Ionized Calcium 1.07(L) 1.19 - 1.34 mmol/L [facility] pH Whole Blood 7.43 7.35 - 7.45 [facility] Blood specimen (specimen) BLOOD SPECIMEN / Unknown 11/03/2017 7:17 PM MANAGER LAND 11/03/2017 7:22 PM MANAGER LAND Jay Jay Heredia MD LAB - CHEMISTRY LUIS ENRIQUE CELIS [address] [phone] * POTASSIUM WHOLE BLD (11/03/2017 7:17 PM MANAGER LAND) Only the most recent of5 resultswithin the time period is included. Potassium Whole Blood 4.9 3.5 - 5.5 mmol/L [facility] Blood specimen (specimen) BLOOD SPECIMEN / Unknown 11/03/2017 7:17 PM MANAGER LAND 11/03/2017 7:22 PM MANAGER LAND Jay Jay Heredia MD LAB - CHEMISTRY LUIS ENRIQUE CELIS Performing Organization Address [facility]/ZIP Co [place] [address], [facility] [phone] * (ABNORMAL) SODIUM WHOLE BLOOD (11/03/2017 7:17 PM MANAGER LAND) Only the most recent of5 resultswithin the time period is included. Sodium Whole Blood 132(L) 135 - 145 mmol/L [facility] Blood specimen (specimen) BLOOD SPECIMEN / Unknown 11/03/2017 7:17 PM MANAGER LAND 11/03/2017 7:22 PM MANAGER LAND Jay Jay Heredia MD LAB - CHEMISTRY LUIS ENRIQUE CELIS Performing Organization Address City/[facility]/ZIP Co de Phone Number [address] [phone] * (ABNORMAL) GLUCOSE WHOLE BLOOD (11/03/2017 7:17 PM MANAGER LAND) Only the most recent of5 resultswithin the time period is included. Glucose Whole Blood 250(H) 70 - 110 mg/dL [facility] Blood specimen (specimen) BLOOD SPECIMEN / Unknown 11/03/2017 7:17 PM MANAGER LAND 11/03/2017 7:22 PM MANAGER LAND Jay Jay Heredia MD LAB - CHEMISTRY LUIS ENRIQUE CELIS [facility] Organization Address City/State/ZIP Co de Phone Number [facility] [address] [place] [address] * (ABNORMAL) BLOOD GASES ART COMPLETE [facility] OR (11/03/2017 6:20 PM MANAGER LAND) Only the most recent of3 resultswithin the time period is included. pH Arterial 7.41 7.35 - 7.45 [facility] pCO2 Arterial 40 35 - 45 mmHg [facility] pO2 Arterial 190(H) 71 - 95 mmHg [facility] HCO3 Arterial 24.5 22.0 - 26.0 mmol/L [facility] TCO2 Arterial 25.7 25.0 - 29.0 mmol/L [facility] Base Excess Arterial -0.1 -2.0 - 2.0 mmol/L [facility] Hemoglobin Arterial 11.2(L) 13.5 - 17.5 g/dL [facility] Oxyhemoglobin Arterial 97.5 95.0 - 100.0 % [facility] Carboxyhemoglobin 0.3 0.0 - 3.0 % [facility] Methemoglobin 0.3 0.0 - 2.0 % [facility] FI O2 Arterial 60.0 % [facility] Ionized Calcium Whole Blood 1.10 mmol/L [facility] Adjusted Ionized Calcium 1.11(L) 1.19 - 1.34 mmol/L [facility] Sodium Whole Blood 133(L) 135 - 145 mmol/L [facility] Potassium Whole Blood 5.5 3.5 - 5.5 mmol/L [facility] Chloride Whole Blood 106 101 - 111 mmol/L [facility] Glucose Whole Blood 230(H) 70 - 110 mg/dL [facility] Lactic Acid Whole Blood 1.3 0.5 - 3.4 mmol/L [facility] Blood specimen (specimen) 11/03/2017 6:20 PM MANAGER LAND 11/03/2017 6:20 PM MANAGER LAND Janae Diaz MD LAB - BLOOD GASES OR DERABLES Performing Organization Address [facility]/ZIP Co de Phone Number [address] [phone] * (ABNORMAL) URINALYSIS W/MICROSCOPIC NO CULTURE (11/03/2017 3:30 AM MANAGER LAND) Only the most recent of2 resultswithin the time period is included. Color UA Lala(A) Straw, Yellow, Colorless, Light Yellow [facility] Clarity UA Clear Clear [facility] Specific [place] UA 1.023 1.001 - 1.030 [facility] pH UA 6.5 5.0 - 8.0 [facility] Protein UA Trace(A) <=20 mg/dL [facility] Glucose UA >1000(A) Negative mg/dL [facility] Ketone UA Negative Negative mg/dL [facility] Bilirubin UA Negative Negative mg/dL [facility] Blood UA Negative Negative [facility] Nitrite UA Negative Negative [facility] Leukocyte Esterase Negative Negative [facility] Urobilinogen UA >12.0(H) <2.0 mg/dL [facility] RBC UA 3 0 - 8 /HPF [facility] WBC UA <1 0 - 2 /HPF [facility] Mucus UA Rare(A) None /LPF [facility] Hyaline Casts UA 1 0 - 2 /LPF [facility] Urine specimen (specimen) 11/03/2017 3:30 AM MANAGER LAND 11/03/2017 3:30 AM MANAGER LAND Janae Diaz MD LAB - URINALYSIS ORD ERABLES Performing Organization Address [facility]/ZIP Co de Phone Number [address] [phone] * DRUG ABUSE PANEL 10-20+ETHANOL URINE NO CONFIRM (11/03/2017 3:30 AM MANAGER LAND) Only the most recent of3 resultswithin the time period is included. Amphetamines Screen Urine Negative Negative: < 1000 ng/mL [facility] Barbiturates Screen Urine Negative Negative: < 200 ng/mL [facility] Benzodiazepine Screen Urine Negative Negative: < 200 ng/mL [facility] Opiates Urine Negative Negative: < 300 ng/mL [facility] Cocaine Metabolites Urine Negative Negative: < 300 ng/mL [facility] Phencyclidine Screen Urine Negative Negative: < 25 ng/ml [facility] Cannabinoids Screen Urine Negative Negative: <50 ng/mL [facility] Methadone Screen Urine Negative Negative: < 300 ng/mL [facility] Urine specimen (specimen) URINE / Unknown 11/03/2017 3:30 AM MANAGER LAND 11/03/2017 3:30 AM MANAGER LAND Narrative [facility] - 11/03/2017 3:52 AM MANAGER LAND The Urine Toxicology Screening Panel does not screen for Propoxyphene, Meprobamate, Carisoprodol, Trazodone, coqq-vfl-uvhyhzp medications and/or volatiles (Acetone, Isopropanol, Methanol or Ethylene Glycol). Ethanol, Salicylate, Acetaminophen, Tricyclic Antidepressants and several therapeutic drugs may be individually assayed in serum or plasma specimen. Toxicology testing by the [facility] is an aid to medical diagnosis and treatment of patients. No documented chain of custody was maintained. Results are intended to be used for clinical purposes only. Janae Diaz MD LAB - URINE CHEMISTR Y ORDERABLES [address] [phone] * TYPE + SCREEN PANEL (11/02/2017 9:16 PM MANAGER LAND) Only the most recent of5 resultswithin the time period is included. Typem A POS [facility] Antibody Screen NEG [facility] Blood specimen (specimen) 11/02/2017 9:16 PM MANAGER LAND 11/02/2017 9:32 PM MANAGER LAND Janae Diaz MD LAB - BLOOD BANK ORD ERABLES [facility] [address] * CROSSMATCH RBC LEUKOREDUCED (11/02/2017 9:16 PM MANAGER LAND) Only the most recent of3 resultswithin the time period is included. Unit RBC-WBCD [id number] returned [facility] (BEAKER) Unit RBC-WBCD [id number] returned [facility] BLOOD BANK PRODUCTS (BEAKER) 11/02/2017 9:16 PM MANAGER LAND 11/02/2017 9:33 PM MANAGER LAND Narrative H BLOOD BANK PRODUCTS (BEAKER) - 11/02/2017 9:16 PM MANAGER LAND # of Units->2 Janae Diaz MD LAB - BLOOD BANK ORD My Digital ShieldBLES [facility] PRODUCTS (BEAKER) * PREPARE FFP UNIT(S) (11/02/2017 9:16 PM MANAGER LAND) Unit FFP [id number] transfused [facility] PR[facility] (BEAKER) Unit ABO AB [facility] (BEAKER) Unit Rh POS [facility] (BEAKER) Unit Number [id number] [facility] (BEAKER) Unit Status Transfused [facility] BLO OD BANK PRODUCTS (BEAKER) Unit FFP [id number] transfused [facility]LOOD [facility] PRODUCTS (BEAKER) Unit ABO AB [facility] PR[facility] (BEAKER) Unit Rh POS [facility]LOOD [facility] PRODUCTS (BEAKER) Unit Number [id number] [facility] PR[facility] (BEAKER) Unit Status Transfused [facility] BLO OD BANK PRODUCTS (BEAKER) Unit FFP [id number] returned [facility] PRODUCTS (BEAKER) Unit FFP [id number] returned [facility] PRODU[facility] (BEAKER) Unit FFP [id number] returned [facility]LOOD [facility] PRODUCTS (BEAKER) Unit FFP [id number] returned [facility]LOOD B[facility] PRODUCTS (BEAKER) 11/02/2017 9:16 PM MANAGER LAND 11/02/2017 9:33 PM MANAGER LAND Narrative [facility] ([facility]) - 11/02/2017 9:16 PM MANAGER LAND # of Units->6 Janae Diaz MD LAB - BLOOD BANK ORD ERABLES [facility] ([facility]) * HLA XM SEROLOGIC DONOR (11/02/2017 3:17 PM MANAGER LAND) XM B Donor ID [id number] [facility] ([facility]) XM B Relation Donor [facility] ([facility]) XM Test Date 11/04/2017 [facility] ([facility]) XM T Tyson Neg S [place] [facility] ([facility]) XM B Serum Date 11/02/2017 [facility] ([facility]) Comment: This test was developed and its performance characteristics determined bythe [facility]. It has not been cleared or approved by theU.S. Food and Drug Administration. The FDA has determined that suchclearance or approval is not necessary. This test is used for clinicalpurposes. It should not be regarded as investigational or for research.This laboratory is certified under the Clinical Laboratory ImprovementAmendments of 1988 (CLIA-88) as qualified to perform high complexityclinical laboratory testing. CLIA ID# [id number] at: [facility], [address] @ [place] [address]Jis Director: Andrew Jones MD, XM B Tyson Neg S [place] [facility] ([facility]) XM T AHG Neg SL [facility] ([facility]) XM B [facility]HG Neg [facility] ([facility]) Blood specimen (specimen) BLOOD SPECIMEN / Unknown 11/02/2017 3:17 PM MANAGER LAND 11/04/2017 3:17 PM MANAGER LAND Janae Diaz MD LAB - BLOOD BANK ORD ERABLES [facility] ([facility]) [address] [address], [place] * EKG 12-LEAD (11/02/2017 12:00 AM MANAGER LAND) Only the most recent of3 resultswithin the time period is included. Pathologist [facility] RADIOLOGY Comment: Exam Date/Time: Nov 02 [...] leads Confirmed by Cristhian Chavira, LGeronimo ([id number]), index editor PATRICIA STERLING ([id number]) on 11/06/2017 12:15:11 PM Referred By: REFERRING NO Confirmed By:Aniya Chavira M.D. 11/02/2017 Janae Diaz MD ECG ORDERABLES Performing Organization Address City/[facility]/ZIP Co de Phone Number [facility] * BLOOD TYPE ABO+ RH PANEL (08/06/2017 12:00 PM MANAGER LAND) Only the most recent of2 resultswithin the time period is included. Pathologist [facility] Typem A POS [facility] Blood specimen (specimen) BLOOD SPECIMEN / Unknown 08/06/2017 12:00 PM MANAGER LAND 08/06/2017 12:30 PM MANAGER LAND Tino Santiago MD LAB - BLOOD BANK ORD ERABLES Performing Organization Address City/[facility]/ZIP Co de Phone Number [facility] [address] * (ABNORMAL) URINALYSIS REFLEX TO MICROSCOPIC NO CULTURE (08/06/2017 11:43 AM MANAGER LAND) Only the most recent of2 resultswithin the time period is included. Pathologist [facility] Color UA Lala(A) Straw, Yellow, Colorless, Light Yellow [facility] Clarity UA Clear Clear [facility] Specific [place] UA 1.023 1.001 - 1.030 [facility] pH UA 5.5 5.0 - 8.0 [facility] Protein UA Trace(A) <=20 mg/dL [facility] Glucose UA 300(A) Negative mg/dL [facility] Ketone UA Negative Negative mg/dL [facility] Bilirubin UA Negative Negative mg/dL [facility] Blood UA Negative Negative [facility] Nitrite UA Negative Negative [facility] Leukocyte Esterase Negative Negative [facility] Urobilinogen UA 3.0(H) <2.0 mg/dL [facility] RBC UA 2 0 - 8 /HPF [facility] WBC UA 1 0 - 2 /HPF [facility] Bacteria UA Rare Rare, Occasional, None /HPF [facility] Hyaline Casts UA 1 0 - 2 /LPF [facility] Urine specimen (specimen) URINE SPECIMEN OBTAINED BY CLEAN CATCH PROCEDURE / Unknown 08/06/2017 11:43 AM MANAGER LAND 08/06/2017 12:23 PM MANAGER LAND Tino Santiago MD LAB - URINALYSIS ORD ERABLES [address] [phone] * QUANTIFERON TB-GOLD INC (08/06/2017 11:43 AM MANAGER LAND) Only the most recent of2 resultswithin the time period is included. QuantiFERON TB Gold Negative Negative [facility] ([facility]) Comment: The specimen received for QuantiFERON testing was incubated by the ordering institution. Specific procedures outlined in our Directory of Services and in the package insert for the QuantiFERON Gold (In Tube) test must be followed to enable for proper stimulation of cells for the production of interferon gamma. QuantiFERON Criteria Comment [facility] ([facility]) Comment: To be considered positive a [...] TB Antigen Value 0.11 IU/mL [facility] ([facility]) QuantiFERON Nil Value 0.37 IU/mL [facility] ([facility]) QuantiFERON Mitogen Value 5.08 IU/mL [facility] ([facility]) QFT TB Ag minus Nil Value <0.00 IU/mL [facility] ([facility]) Interpretation Comment [facility] ([facility]) Comment: The QuantiFERON TB Gold (in [...] BLOOD SPECIMEN / Unknown 08/06/2017 11:43 AM MANAGER LAND 08/06/2017 12:27 PM MANAGER LAND Narrative [facility] ([facility]) - 08/11/2017 5:07 PM MANAGER LAND Performed at: [address] [id number] Marine Structural Designer: Tio Segal PhD, Phone: [phone] Tino Santiago MD LAB - SEROLOGY ORDER MAYRA [facility] ([facility]) [address] [place] [address], [facility] * CANCER ANTIGEN (CA) 19-9 (08/06/2017 11:43 AM MANAGER LAND) Only the most recent of2 resultswithin the time period is included. CA 19-9 22.830 <35.000 U/mL [facility] Comment: CA 19-9 values will vary depending on testing procedure used. Results are not comparable across different methods. CA 19-9 values obtained in [facility] using a Tulio Lyn Immunoassay. Blood specimen (specimen) BLOOD SPECIMEN / Unknown 08/06/2017 11:43 AM MANAGER LAND 08/06/2017 12:26 PM MANAGER LAND Tino Santiago MD LAB - CHEMISTRY [facility]DE [facility] Performing Organization Address City/[facility]/ZIP Co de Phone Number [facility] [address] [phone] * NICOTINE + METABOLITES BLOOD (08/06/2017 11:43 AM MANAGER LAND) Only the most recent of2 resultswithin the time period is included. Pathologist [facility] Nicotine None Detected ng/mL [facility] ([facility]) Comment: Nicotine levels greater than 2.0 are consistent with the use of tobacco or tobacco cessation products. Cotinine None Detected ng/mL [facility] ([facility]) Comment: Cotinine levels greater than 20.0 are consistent with the use of tobacco or tobacco cessation products. Blood specimen (specimen) BLOOD SPECIMEN / Unknown 08/06/2017 11:43 AM MANAGER LAND 08/06/2017 12:26 PM MANAGER LAND Narrative [facility] ([facility]) - 08/09/2017 9:17 AM MANAGER LAND Performed at: [address] [place] [id number] Marine [employer] Designer: Peter Treadwell MD, Phone: [phone] Tino Santiago MD LAB - CHEMISTRY [facility] EN[facility]EL[facility] Performing Organization Address [facility] Co de Phone Number [facility] ([facility]) [address] [place] [address] * HIV-1 HIV-2 ANTIGEN/ANTIBODY (08/06/2017 11:43 AM MANAGER LAND) Only the most recent of2 resultswithin the time period is included. [facility] HIV Antigen/Antibod y 1 & 2 Non-reacti ve Non-react rosendo [facility] Comment: Neither HIV-1 p24 Antigen nor HIV-1/HIV-2 Antibodies are detected. Blood specimen (specimen) BLOOD SPECIMEN / Unknown 08/06/2017 11:43 AM MANAGER LAND 08/06/2017 12:24 PM MANAGER LAND Tino Santiago MD LAB - HEMATOLOGY CARRI KIM Performing Organization Address City/[facility]/ZIP Co de Phone Number [facility] [place] [address], [facility] [phone] * PSA FREE + TOTAL PANEL (08/06/2017 11:43 AM MANAGER LAND) Only the most recent of2 resultswithin the time period is included. PSA Total <0.1 0.0 - 4.0 ng/mL [facility] PSA Free <0.10 0.00 - 0.50 ng/mL [facility] PSA % Free See Comment % [facility] Comment:Unable to calculate % Free PSA due to Free and/or Total PSA concentration(s) being <0.1 ng/mL. Blood specimen (specimen) BLOOD SPECIMEN / Unknown 08/06/2017 11:43 AM MANAGER LAND 08/06/2017 12:24 PM MANAGER LAND Tino Santiago MD LAB - CHEMISTRY [facility] [address] [phone] * RPR (08/06/2017 11:43 AM MANAGER LAND) Only the most recent of2 resultswithin the time period is included. RPR Non-reacti ve Non-reacti ve [facility] Blood specimen (specimen) BLOOD SPECIMEN / Unknown 08/06/2017 11:43 AM MANAGER LAND 08/06/2017 12:24 PM MANAGER LAND Tino Santiago MD LAB - CHEMISTRY LU[facility] ENRIQUE CELIS Performing Organization Address City/[facility]/ZIP Co de Phone Number [address] [phone] * RUBEOLA ANTIBODY IGG (08/06/2017 11:43 AM MANAGER LAND) Only the most recent of2 resultswithin the time period is included. Measles ([place]ubeola) Antibody IgG >300.0 Immune >29.9 AU/mL [facility] Comment: Negative <25.0 Equivocal 25.0 - 29.9 Positive >29.9 Presence of antibodies to Rubeola is presumptive evidence of immunity except when acute infection is suspected. Blood specimen (specimen) BLOOD SPECIMEN / Unknown 08/06/2017 11:43 AM MANAGER LAND 08/06/2017 12:26 PM MANAGER LAND Narrative [facility] - 08/07/2017 3:18 PM MANAGER LAND Performed at: [address] [place] [address] [id number] Marine Structural Designer: Tio Segal PhD, Phone: [phone] Tino Santiago MD LAB - CHEMISTRY LUIS ENRIQUE CELIS Performing Organization Address [facility] de Phone Number [address] * VARICELLA ZOSTER ANTIBODY IGG (08/06/2017 11:43 AM MANAGER LAND) [facility] Varicella zoster Virus Antibody IgG >4000 Immune >165 index [facility] Comment: Negative <135 Equivocal 135 - 165 Positive >165 A positive result generally indicates exposure to the pathogen or administration of specific immunoglobulins, but it is not indication of active infection or stage of disease. Blood specimen (specimen) BLOOD SPECIMEN / Unknown 08/06/2017 11:43 AM MANAGER LAND 08/06/2017 12:26 PM MANAGER LAND Narrative [facility] - 08/07/2017 3:18 PM MANAGER LAND Performed at: [address] [place] [address] [id number] Marine Structural Designer: Tio Segal PhD, Phone: [phone] Tino Santiago MD LAB - CHEMISTRY LUIS ENRIQUE CELIS Performing Organization Address [facility] de Phone Number [address] * (ABNORMAL) TRANSFERRIN (08/06/2017 11:43 AM MANAGER LAND) Only the most recent of3 resultswithin the time period is included. [facility] Transferrin 161(L) 174 - 382 mg/dL [facility] Transferrin Saturation % 80(H) 16 - 50 % [facility] Blood specimen (specimen) BLOOD SPECIMEN / Unknown 08/06/2017 11:43 AM MANAGER LAND 08/06/2017 12:24 PM MANAGER LAND Tino Santiago MD LAB - CHEMISTRY LUIS ENRIQUE CELIS Performing Organization Address [facility]/ZIP Co de Phone Number [facility] [address] [phone] * RUBELLA ANTIBODY IGG (08/06/2017 11:43 AM MANAGER LAND) Only the most recent of2 resultswithin the time period is included. [facility] Rubella Antibody IgG Quantitative >33.00 Immune >0.99 index [facility] Comment: Non-immune <0.90 Equivocal 0.90 - 0.99 Immune >0.99 Blood specimen (specimen) BLOOD SPECIMEN / Unknown 08/06/2017 11:43 AM MANAGER LAND 08/06/2017 12:24 PM MANAGER LAND Narrative [facility] - 08/07/2017 3:10 AM MANAGER LAND Performed at: [address] [place] [address] [id number] Marine [employer] Designer: Tio Segal PhD, Phone: [phone] Tino Santiago MD LAB - SEROLOGY ORDER MAYRA Performing Organization Address [facility] Co de Phone Number [facility] [address] [place] [address] * HEPATITIS B CORE ANTIBODY (08/06/2017 11:43 AM MANAGER LAND) Only the most recent of3 resultswithin the time period is included. [facility] HBc Antibody Total Non-reacti ve Non-reacti ve [facility] Blood specimen (specimen) BLOOD SPECIMEN / Unknown 08/06/2017 11:43 AM MANAGER LAND 08/06/2017 12:24 PM MANAGER LAND Tino Santiago MD LAB - CHEMISTRY LUIS ENRIQUE CELIS Performing Organization Address City/[facility]/ZIP Co [place] [address], [facility] [phone] * ALCOHOL ETHYL BLOOD (08/06/2017 11:43 AM MANAGER LAND) Only the most recent of3 resultswithin the time period is included. [facility] Interpretation Ethanol None Detected None Detected mg/dL [facility] Comment:Ethanol levels less than 10 mg/dL are resulted as None detected. Blood specimen (specimen) BLOOD SPECIMEN / Unknown 08/06/2017 11:43 AM MANAGER LAND 08/06/2017 12:24 PM MANAGER LAND Tino Santiago MD LAB - CHEMISTRY [facility] [address] [phone] * (ABNORMAL) FERRITIN (08/06/2017 11:43 AM MANAGER LAND) Only the most recent of3 resultswithin the time period is included. Pathologist [facility] Ferritin 323(H) 22 - 275 ng/mL [facility] Blood specimen (specimen) BLOOD SPECIMEN / Unknown 08/06/2017 11:43 AM MANAGER LAND 08/06/2017 12:24 PM MANAGER LAND Tino Santiago MD LAB - CHEMISTRY LUIS ENRIQUE CELIS Performing Organization Address [facility] Co de Phone Number [address] [phone] * CYTOMEGALOVIRUS ANTIBODY IGG BLOOD (08/06/2017 11:43 AM MANAGER LAND) Only the most recent of2 resultswithin the time period is included. Pathologist [facility] Cytomegalovirus Antibody IgG <0.60 0.00 - 0.59 U/mL [facility] Comment: Negative <0.60 Equivocal 0.60 - 0.69 Positive >0.69 Blood specimen (specimen) BLOOD SPECIMEN / Unknown 08/06/2017 11:43 AM MANAGER LAND 08/06/2017 12:24 PM MANAGER LAND Narrative [facility] - 08/08/2017 5:12 AM MANAGER LAND Performed at: [address] [place] [address] [address] [place], [place] [id number] Marine Structural Designer: Tio Segal PhD, Phone: [phone] Tino Santiago MD LAB - CHEMISTRY LUIS ENRIQUE CELIS Performing Organization Address City/[facility]/ZIP Co de Phone Number [facility] [address] * MUMPS ANTIBODY IGG (08/06/2017 11:43 AM MANAGER LAND) Only the most recent of2 resultswithin the time period is included. Pathologist [facility] Mumps Virus Antibody IgG >300.0 Immune >10.9 AU/mL [facility] Comment: Negative <9.0 Equivocal 9.0 - 10.9 Positive >10.9 A positive result generally indicates past exposure to Mumps virus or previous vaccination. Blood specimen (specimen) BLOOD SPECIMEN / Unknown 08/06/2017 11:43 AM MANAGER LAND 08/06/2017 12:25 PM MANAGER LAND Narrative [facility] - 08/07/2017 3:18 PM MANAGER LAND Performed at: - [facility] [address] [place], [place] [id number] Marine Structural Designer: Tio Segal PhD, Phone: [phone] Tino Santiago MD LAB - CHEMISTRY LUIS ENRIQUE CELIS [facility] Organization Address City/State/ZIP Co de Phone Number [facility] [address] * (ABNORMAL) ÁNGEL-VOGEL VIRUS ANTIBODY TO VCA IGG (08/06/2017 11:43 AM MANAGER LAND) Only the most recent of2 resultswithin the time period is included. [facility] Ángel-Vogel Virus Antibody To Viral Capsid Antigen IgG >750.0(H) 0.0 - 21.9 U/mL [facility] ([facility]) Comment: INTERPRETIVE INFORMATION: Ángel-Vogel Virus Antibody to Viral Capsid Antigen, IgG 17.9 U/mL or less.......Not Detected 18.0-21.9 U/mL..........Indeterminate - Repeat testing in 10-14 days may be helpful. 22.0 U/mL or greater....Detected Interpretive information regarding serologic features of EBV-associated diseases is available at [email or web address]. Performed by [facility], [address] [place] [address],[place] [address] [email or web address], Yoandy Martinez MD, Lab. Director Blood specimen (specimen) BLOOD SPECIMEN / Unknown 08/06/2017 11:43 AM MANAGER LAND 08/06/2017 12:26 PM MANAGER LAND Tino Santiago MD LAB - CHEMISTRY LUIS ENRIQUE CELIS [facility] ([facility]) [address] [place] [address], [facility] * HEPATITIS B SURFACE ANTIGEN W RFLX CONFIRMATION (08/06/2017 11:43 AM MANAGER LAND) Only the most recent of2 resultswithin the time period is included. Hepatitis B Virus Surface Antigen Screen Negative Negative [facility] Blood specimen (specimen) BLOOD SPECIMEN / Unknown 08/06/2017 11:43 AM MANAGER LAND 08/06/2017 12:24 PM MANAGER LAND Narrative [facility] - 08/07/2017 5:14 AM MANAGER LAND Performed at: - [facility] [address] [place], [place] [id number] Marine Structural Designer: Tio Segal PhD, Phone: [phone] Tino Santiago MD LAB - CHEMISTRY LUIS ENRIQUE CELIS Performing Organization Address [facility] Co de Phone Number [facility] [address] [place] [address] * XR PANOREX (08/06/2017 11:29 AM MANAGER LAND) Only the most recent of2 resultswithin the time period is included. Anatomical Region Laterality Modality Head Other Impressions 08/07/2017 3:16 PM MANAGER LAND IMPRESSION: No evidence of periapical abscess. Dictated by Vivek Butler MD (president commercial bank). I, Dr. WALTER BACA M.D. have personally reviewed and interpreted this examination/study. This report was electronically signed by WALTER BACA M.D. on 08/07/2017 3:16 PM . Narrative 08/07/2017 3:16 PM MANAGER LAND EXAMINATION: [employer] HISTORY: pre liver eval FINDINGS: [...] periapical abscess. Dictated by Vivek Butler MD (president commercial bank). I, Dr. WALTER BACA M.D. have personally reviewed and interpreted thisexamination/study. This report was electronically signed by WALTER BACA M.D. on 08/07/20173:16 PM . Tino Santiago MD DIAGNOSTIC IMAGING O RDERABLES * ECHO STRESS TEST W DOBUTAMINE (08/06/2017 12:00 AM MANAGER LAND) Only the most recent of2 resultswithin the time period is included. Anatomical Region Laterality Modality Other 08/06/2017 Tino Santiago MD ECHOCARDIOGRAPHY RAD IANT * ECHO STRESS COLOR FLOW AND DOPPLER (08/06/2017 12:00 AM MANAGER LAND) Only the most recent of2 resultswithin the [...] artery (beyond 3rd order) and angiogram. 7. [place] embolization of the segment 7 branch of [...] draped in the usual sterile fashion. A compression molding machine tender film of the abdomen was obtained, which [...] documented. Following a series of exchanges, a 5-[place] vascular sheath was placed. The celiac artery (1st order) was catheterized with a 5 [place] Sos Omni-2 catheter and angiogram was obtained. The angiogram demonstrated a normal hepatic branching pattern. An attempt was made to catheterize the common hepatic artery with a 2.0 [place] Progreat microcatheter but was unsuccessful. Therefore, the Sos Omni 2 catheter was exchanged for a 4 [place] Cobra catheter and advanced into the proper [...] was sent to and analyzed at the [employer] work station. The study demonstrated nodular arterial enhancement in hepatic segment 7 at the dome superomedial to the ablation cavity. The right hepatic artery (beyond 3rd order) was then catheterized with a coaxially advanced 2.0 [place] Progreat microcatheter and angiogram was obtained. The [...] hepaticartery (beyond 3rd order) and angiogram. 7. [place] embolization of the segment 7 branch of [...] draped in the usual sterile fashion. A compression molding machine tender film of the abdomen was obtained, which [...] (1st order) was catheterized with a 5 [place] Sos Omni- 2catheter and angiogram was obtained. The angiogram demonstrated a normalhepatic branching pattern. An attempt was made to catheterize the commonhepatic artery with a 2.0 [place] Progreat microcatheter but was unsuccessful. Therefore, the Sos Omni 2catheter was exchanged for a 4 [place] Cobra catheter and advanced into theproper hepatic artery. Angiogram was performed with the catheter in theproper hepatic artery which showed antegrade flow in the right and left hepatic arteries. No definite tumorblush was identified. 3D Felicia CT was obtained following the injection of contrast with thecatheter in the proper hepatic artery. The data was sent to and analyzedat the [facility] work station. The study demonstrated nodular arterialenhancement in hepatic segment 7 at the dome superomedial to the ablation cavity. The right hepatic artery (beyond 3rd order) was then catheterized with acoaxially advanced 2.0 [place] Progreat microcatheter and angiogram wasobtained. The angiogram again demonstrated antegrade flow in branchvessels; the segment 7 branches were identified. The segment 7 branch of the right hepatic artery (beyond 3rd order) wasthen catheterized with the microcatheter and angiogram was obtained, whichshowed blood flow to the region of tumor identified on Felicia CT. This was then followed by embolization of the segment 7 branch [id number] micron Embospheres to near stasis. Post-embolization angiogram [...] artery (beyond 3rd order) and angiogram. 7. [place] embolization of the segment 7 branch of [...] draped in the usual sterile fashion. A compression molding machine tender film of the abdomen was obtained, which [...] documented. Following a series of exchanges, a 5-[place] vascular sheath was placed. The celiac artery (1st order) was catheterized with a 5 [place] Sos Omni-2 catheter and angiogram was obtained. The angiogram demonstrated a normal hepatic branching pattern. An attempt was made to catheterize the common hepatic artery with a 2.0 [place] Progreat microcatheter but was unsuccessful. Therefore, the Sos Omni 2 catheter was exchanged for a 4 [place] Cobra catheter and advanced into the proper [...] was sent to and analyzed at the [facility] work station. The study demonstrated nodular arterial enhancement in hepatic segment 7 at the dome superomedial to the ablation cavity. The right hepatic artery (beyond 3rd order) was then catheterized with a coaxially advanced 2.0 [place] Progreat microcatheter and angiogram was obtained. The [...] Physician 2. Dr. Cronin, IR Fellow 3. [facility], Medical Student Anesthesia: 1. Local anesthesia - [...] hepaticartery (beyond 3rd order) and angiogram. 7. [place] embolization of the segment 7 branch of [...] draped in the usual sterile fashion. A compression molding machine tender film of the abdomen was obtained, which [...] (1st order) was catheterized with a 5 [place] Sos Omni- 2catheter and angiogram was obtained. The angiogram demonstrated a normalhepatic branching pattern. An attempt was made to catheterize the commonhepatic artery with a 2.0 [place] Progreat microcatheter but was unsuccessful. Therefore, the Sos Omni 2catheter was exchanged for a 4 [place] Cobra catheter and advanced into theproper hepatic artery. Angiogram was performed with the catheter in theproper hepatic artery which showed antegrade flow in the right and left hepatic arteries. No definite tumorblush was identified. 3D Felicia CT was obtained following the injection of contrast with thecatheter in the proper hepatic artery. The data was sent to and analyzedat the [facility] work station. The study demonstrated nodular arterialenhancement in hepatic segment 7 at the dome superomedial to the ablation cavity. The right hepatic artery (beyond 3rd order) was then catheterized with acoaxially advanced 2.0 [place] Progreat microcatheter and angiogram wasobtained. The angiogram again demonstrated antegrade flow in branchvessels; the segment 7 branches were identified. The segment 7 branch of the right hepatic artery (beyond 3rd order) wasthen catheterized with the microcatheter and angiogram was obtained, whichshowed blood flow to the region of tumor identified on Felicia CT. This was then followed by embolization of the segment 7 branch [id number] micron Embospheres to near stasis. Post-embolization angiogram [...] artery (beyond 3rd order) and angiogram. 7. [place] embolization of the segment 7 branch of [...] draped in the usual sterile fashion. A compression molding machine tender film of the abdomen was obtained, which [...] documented. Following a series of exchanges, a 5-[place] vascular sheath was placed. The celiac artery (1st order) was catheterized with a 5 [place] Sos Omni-2 catheter and angiogram was obtained. The angiogram demonstrated a normal hepatic branching pattern. An attempt was made to catheterize the common hepatic artery with a 2.0 [place] Progreat microcatheter but was unsuccessful. Therefore, the Sos Omni 2 catheter was exchanged for a 4 [place] Cobra catheter and advanced into the proper [...] was sent to and analyzed at the [facility] work station. The study demonstrated nodular arterial enhancement in hepatic segment 7 at the dome superomedial to the ablation cavity. The right hepatic artery (beyond 3rd order) was then catheterized with a coaxially advanced 2.0 [place] Progreat microcatheter and angiogram was obtained. The [...] Physician 2. Dr. Cronin, IR Fellow 3. [facility], Medical Student Anesthesia: 1. Local anesthesia - [...] hepaticartery (beyond 3rd order) and angiogram. 7. [place] embolization of the segment 7 branch of [...] draped in the usual sterile fashion. A compression molding machine tender film of the abdomen was obtained, which [...] (1st order) was catheterized with a 5 [place] Sos Omni- 2catheter and angiogram was obtained. The angiogram demonstrated a normalhepatic branching pattern. An attempt was made to catheterize the commonhepatic artery with a 2.0 [place] Progreat microcatheter but was unsuccessful. Therefore, the Sos Omni 2catheter was exchanged for a 4 [place] Cobra catheter and advanced into theproper hepatic artery. Angiogram was performed with the catheter in theproper hepatic artery which showed antegrade flow in the right and left hepatic arteries. No definite tumorblush was identified. 3D Felicia CT was obtained following the injection of contrast with thecatheter in the proper hepatic artery. The data was sent to and analyzedat the [facility] work station. The study demonstrated nodular arterialenhancement in hepatic segment 7 at the dome superomedial to the ablation cavity. The right hepatic artery (beyond 3rd order) was then catheterized with acoaxially advanced 2.0 [place] Progreat microcatheter and angiogram wasobtained. The angiogram again demonstrated antegrade flow in branchvessels; the segment 7 branches were identified. The segment 7 branch of the right hepatic artery (beyond 3rd order) wasthen catheterized with the microcatheter and angiogram was obtained, whichshowed blood flow to the region of tumor identified on Felicia CT. This was then followed by embolization of the segment 7 branch [id number] micron Embospheres to near stasis. Post-embolization angiogram ofthe segment 7 branch showed satisfactory stasis. A sheath angiogram of the right common femoral artery was unremarkablewith femoral access away from the profunda. Hemostasis was achieved withan Angioseal closure device. A sterile dressing was applied. The patient tolerated the procedure well and [facility]. There [...] artery (beyond 3rd order) and angiogram. 7. [place] embolization of the segment 7 branch of [...] draped in the usual sterile fashion. A compression molding machine tender film of the abdomen was obtained, which [...] documented. Following a series of exchanges, a 5-[place] vascular sheath was placed. The celiac artery (1st order) was catheterized with a 5 [place] Sos Omni-2 catheter and angiogram was obtained. The angiogram demonstrated a normal hepatic branching pattern. An attempt was made to catheterize the common hepatic artery with a 2.0 [place] Progreat microcatheter but was unsuccessful. Therefore, the Sos Omni 2 catheter was exchanged for a 4 [place] Cobra catheter and advanced into the proper [...] was sent to and analyzed at the [facility] work station. The study demonstrated nodular arterial enhancement in hepatic segment 7 at the dome superomedial to the ablation cavity. The right hepatic artery (beyond 3rd order) was then catheterized with a coaxially advanced 2.0 [place] Progreat microcatheter and angiogram was obtained. The [...] hepaticartery (beyond 3rd order) and angiogram. 7. [place] embolization of the segment 7 branch of [...] draped in the usual sterile fashion. A compression molding machine tender film of the abdomen was obtained, which [...] (1st order) was catheterized with a 5 [place] Sos Omni- 2catheter and angiogram was obtained. The angiogram demonstrated a normalhepatic branching pattern. An attempt was made to catheterize the commonhepatic artery with a 2.0 [place] Progreat microcatheter but was unsuccessful. Therefore, the Sos Omni 2catheter was exchanged for a 4 [place] Cobra catheter and advanced into theproper hepatic artery. Angiogram was performed with the catheter in theproper hepatic artery which showed antegrade flow in the right and left hepatic arteries. No definite tumorblush was identified. 3D Felicia CT was obtained following the injection of contrast with thecatheter in the proper hepatic artery. The data was sent to and analyzedat the [facility] work station. The study demonstrated nodular arterialenhancement in hepatic segment 7 at the dome superomedial to the ablation cavity. The right hepatic artery (beyond 3rd order) was then catheterized with acoaxially advanced 2.0 [place] Progreat microcatheter and angiogram wasobtained. The angiogram again demonstrated antegrade flow in branchvessels; the segment 7 branches were identified. The segment 7 branch of the right hepatic artery (beyond 3rd order) wasthen catheterized with the microcatheter and angiogram was obtained, whichshowed blood flow to the region of tumor identified on Felicia CT. This was then followed by embolization of the segment 7 branch [id number] micron Embospheres to near stasis. Post-embolization angiogram ofthe segment 7 branch showed satisfactory stasis. A sheath angiogram of the right common femoral artery was unremarkablewith femoral access away from the profunda. Hemostasis was achieved withan Angioseal closure device. A sterile dressing was applied. The patient tolerated the procedure well and [facility]. There [...] artery (beyond 3rd order) and angiogram. 7. [place] embolization of the segment 7 branch of [...] draped in the usual sterile fashion. A compression molding machine tender film of the abdomen was obtained, which [...] documented. Following a series of exchanges, a 5-[place] vascular sheath was placed. The celiac artery (1st order) was catheterized with a 5 [place] Sos Omni-2 catheter and angiogram was obtained. The angiogram demonstrated a normal hepatic branching pattern. An attempt was made to catheterize the common hepatic artery with a 2.0 [place] Progreat microcatheter but was unsuccessful. Therefore, the Sos Omni 2 catheter was exchanged for a 4 [place] Cobra catheter and advanced into the proper [...] was sent to and analyzed at the [facility] work station. The study demonstrated nodular arterial enhancement in hepatic segment 7 at the dome superomedial to the ablation cavity. The right hepatic artery (beyond 3rd order) was then catheterized with a coaxially advanced 2.0 [place] Progreat microcatheter and angiogram was obtained. The [...] hepaticartery (beyond 3rd order) and angiogram. 7. [place] embolization of the segment 7 branch of [...] draped in the usual sterile fashion. A compression molding machine tender film of the abdomen was obtained, which [...] (1st order) was catheterized with a 5 [place] Sos Omni- 2catheter and angiogram was obtained. The angiogram demonstrated a normalhepatic branching pattern. An attempt was made to catheterize the commonhepatic artery with a 2.0 [place] Progreat microcatheter but was unsuccessful. Therefore, the Sos Omni 2catheter was exchanged for a 4 [place] Cobra catheter and advanced into theproper hepatic artery. Angiogram was performed with the catheter in theproper hepatic artery which showed antegrade flow in the right and left hepatic arteries. No definite tumorblush was identified. 3D Felicia CT was obtained following the injection of contrast with thecatheter in the proper hepatic artery. The data was sent to and analyzedat the [facility] work station. The study demonstrated nodular arterialenhancement in hepatic segment 7 at the dome superomedial to the ablation cavity. The right hepatic artery (beyond 3rd order) was then catheterized with acoaxially advanced 2.0 [place] Progreat microcatheter and angiogram wasobtained. The angiogram again demonstrated antegrade flow in branchvessels; the segment 7 branches were identified. The segment 7 branch of the right hepatic artery (beyond 3rd order) wasthen catheterized with the microcatheter and angiogram was obtained, whichshowed blood flow to the region of tumor identified on Felicia CT. This was then followed by embolization of the segment 7 branch [id number] micron Embospheres to near stasis. Post-embolization angiogram ofthe segment 7 branch showed satisfactory stasis. A sheath angiogram of the right common femoral artery was unremarkablewith femoral access away from the profunda. Hemostasis was achieved withan Angioseal closure device. A sterile dressing was applied. The patient tolerated the procedure well and [facility]. There [...] nursing sedationflowsheet. This report was approved by Dagn Cronin M.D. on 07/02/2017 3:43PM . I, [...] artery (beyond 3rd order) and angiogram. 7. [place] embolization of the segment 7 branch of [...] draped in the usual sterile fashion. A compression molding machine tender film of the abdomen was obtained, which [...] documented. Following a series of exchanges, a 5-[place] vascular sheath was placed. The celiac artery (1st order) was catheterized with a 5 [place] Sos Omni-2 catheter and angiogram was obtained. The angiogram demonstrated a normal hepatic branching pattern. An attempt was made to catheterize the common hepatic artery with a 2.0 [place] Progreat microcatheter but was unsuccessful. Therefore, the Sos Omni 2 catheter was exchanged for a 4 [place] Cobra catheter and advanced into the proper [...] was sent to and analyzed at the [facility] work station. The study demonstrated nodular arterial enhancement in hepatic segment 7 at the dome superomedial to the ablation cavity. The right hepatic artery (beyond 3rd order) was then catheterized with a coaxially advanced 2.0 [place] Progreat microcatheter and angiogram was obtained. The [...] hepaticartery (beyond 3rd order) and angiogram. 7. [place] embolization of the segment 7 branch of [...] draped in the usual sterile fashion. A compression molding machine tender film of the abdomen was obtained, which [...] (1st order) was catheterized with a 5 [place] Sos Omni- 2catheter and angiogram was obtained. The angiogram demonstrated a normalhepatic branching pattern. An attempt was made to catheterize the commonhepatic artery with a 2.0 [place] Progreat microcatheter but was unsuccessful. Therefore, the Sos Omni 2catheter was exchanged for a 4 [place] Cobra catheter and advanced into theproper hepatic artery. Angiogram was performed with the catheter in theproper hepatic artery which showed antegrade flow in the right and left hepatic arteries. No definite tumorblush was identified. 3D Felicia CT was obtained following the injection of contrast with thecatheter in the proper hepatic artery. The data was sent to and analyzedat the [facility] work station. The study demonstrated nodular arterialenhancement in hepatic segment 7 at the dome superomedial to the ablation cavity. The right hepatic artery (beyond 3rd order) was then catheterized with acoaxially advanced 2.0 [place] Progreat microcatheter and angiogram wasobtained. The angiogram again demonstrated antegrade flow in branchvessels; the segment 7 branches were identified. The segment 7 branch of the right hepatic artery (beyond 3rd order) wasthen catheterized with the microcatheter and angiogram was obtained, whichshowed blood flow to the region of tumor identified on Felicia CT. This was then followed by embolization of the segment 7 branch [id number] micron Embospheres to near stasis. Post-embolization angiogram [...] An M.D. on 06/20/2017 10:36AM . Dr. oHrace Reyes M.D. have personally reviewed and interpreted thisexamination/study. This report was electronically signed by Horace MICHAEL M.D. on06/20/2017 1:24 PM . Janae Diaz MD US ORDERABLES * CREATININE BLOOD - POCT (IP) [facility] (05/30/2017) Only the most recent of2 resultswithin the time period is included. Creatinine POCT 0.85 0.3 - 1.3 mg/dL [facility] eGFR POCT 60 60 ml/min [facility] 05/30/2017 Jony Garcia MD LAB - POINT OF CARE ORDERABLES [facility] * CT PARENCHYMAL TISSUE ABLATION (03/06/2017 [...] by the injection with 1% Lidocaine. A IA 15 probe (3 -4 cm ablation zone) [...] provided by the injection with 1%Lidocaine. A IA 15 probe (3 -4 cm ablation zone) [...] by the injection with 1% Lidocaine. A IA 15 probe (3 -4 cm ablation zone) [...] provided by the injection with 1%Lidocaine. A IA 15 probe (3 -4 cm ablation zone) [...] time period is included. Unit Platelet Pheresis [id number] transfused [facility] BLOOD [facility]ANK PRODUCTS (BEAKER) Unit ABO B [facility] (BEAKER) Unit Rh POS [facility] (BEAKER) Unit Number [id number] [facility] (BEAKER) Unit Status Transfused [facility] BLO OD [facility] (BEAKER) Irradiated Platelet [id number] transfused [facility] (BEAKER) Unit ABO O [facility] (BEAKER) Unit Rh POS [facility]LO[facility] (BEAKER) Unit Number [id number] [facility] (BEAKER) Unit Status Transfused [facility] BLO OD BANK PRODUCTS (BEAKER) 03/06/2017 9:13 AM CDT 03/06/2017 9:21 AM CDT Narrative [facility] BLOOD [facility]ANK PRODUCTS (BEAKER) - 03/06/2017 9:13 AM CDT # of Units->2 [place] Lilly Asst LAB - BLO OD BANK ORDERABLES Performing Organization Address City/[facility]/ZIP Co de Phone Number [facility] BLOOD [facility]ANK [facility] (BEAKER) * CULTURE AEROBIC (10/06/2016 12:07 AM MANAGER LAND) Culture Aerobic No Growth at 1 week [facility] Gram Stain Many Red Blood Cells [facility] Gram Stain No Organism Seen [facility] Fluid specimen (specimen) 10/06/2016 12:07 AM MANAGER LAND 10/06/2016 12:57 AM MANAGER LAND [facility] - 10/13/2016 2:58 PM MANAGER LAND Peritoneal fluid Specimen Type->Body Fluid Gram Stains are routinely screened for the presence of Polymorphonuclear Cells. Jerrell Brown MD LAB - MICROBIOLOGY O RDERABLES Performing Organization Address [facility]/ZIP Co de Phone Number [address] [phone] * CULTURE ANAEROBE (10/06/2016 12:07 AM MANAGER LAND) Culture Anaerobic No Growth at 1 week [facility] Fluid specimen (specimen) 10/06/2016 12:07 AM MANAGER LAND 10/06/2016 12:57 AM MANAGER LAND [facility] - 10/15/2016 11:21 AM MANAGER LAND Peritoneal fluid Specimen Type->Body Fluid Jerrell Brown MD LAB - MICROBIOLOGY O RDERABLES Performing Organization Address [facility]/ZIP Co de Phone Number [address] [phone] * CT ABDOMEN PELVIS W CONTRAST (10/05/2016 6:34 PM MANAGER LAND) Anatomical Region Laterality Modality Abdomen, Pelvis Other Impressions 10/06/2016 12:07 PM MANAGER LAND IMPRESSION: 1. Indirect right inguinal hernia containing [...] 1752 hours. Dictated by Vivek Butler MD (president commercial [employer]). I, Dr. LESLY FERMIN M.D. have personally reviewed and interpreted this examination/study. This report was electronically signed by LESLY FERMIN M.D. on 10/06/2016 12:07 PM . Narrative 10/06/2016 12:07 PM MANAGER LAND EXAMINATION: Computed tomography (CT) of the abdomen [...] [facility]2016. The gallbladder [...] 1752 hours. Dictated by Vivek Butler MD (president [employer]). I, Dr. LESLY FERMIN M.D. have personally reviewed and interpreted thisexamination/study. This report was electronically signed by LESLY FERMIN M.D. on10/06/2016 12:07 PM . Piper Renner MD CT ORDERABLES * PURPLE TOP TUBE EXTRA (10/05/2016 5:17 PM MANAGER LAND) Extra Tube hold [facility] Blood specimen (specimen) BLOOD SPECIMEN / Unknown 10/05/2016 5:17 PM MANAGER LAND 10/05/2016 5:22 PM MANAGER LAND Piper Renner MD LAB - CHEMISTRY [facility] [address] [phone] * LIPASE BLOOD (09/12/2016 1:16 AM MANAGER LAND) Only the most recent of2 resultswithin the time period is included. Lipase 13 8 - 78 Units/L [facility] Blood specimen (specimen) BLOOD SPECIMEN / Unknown 09/12/2016 1:16 AM MANAGER LAND 09/12/2016 1:22 AM MANAGER LAND Demetrice Prado MD LAB - CHEMISTRY [facility]EL[facility] Performing Organization Address City/[facility]/ZIP [place] [address], [facility] [phone] * XR LUMBAR SPINE 2 OR 3VW (08/28/2016 1:16 PM MANAGER LAND) Only the most recent of2 resultswithin the time period is included. Anatomical Region Laterality Modality Spine Other Impressions 08/28/2016 3:32 PM MANAGER LAND IMPRESSION: 1. Redemonstration of an L1 compression fracture with interval progression of anterior height loss, now greater than 50 percent. 2. Multilevel degenerative changes. This report was electronically signed by DASHAWN SUE MD on 08/28/2016 3:32 PM . Narrative 08/28/2016 3:32 PM MANAGER LAND Exam: XR SPINE LUMBAR 2 OR 3 [...] DOPPLER AND COLOR FLOW (08/22/2016 12:00 AM MANAGER LAND) Anatomical Region Laterality Modality Other 08/22/2016 Mele Nevarez MD ECHOCARDIOGRAPHY RAD IANT * CT ANGIO BRAIN AND NECK (08/02/2016 12:18 PM MANAGER LAND) Anatomical Region Laterality Modality Head Other Impressions 08/03/2016 10:18 AM MANAGER LAND IMPRESSION: 1. No acute intracranial hemorrhage. 2. No large arterial occlusions or significant stenoses identified in the head or neck. I, Dr. STEVE ACOSTA M.D. have personally reviewed and interpreted this examination/study. This report was electronically signed by STEVE ACOSTA M.D. on 08/03/2016 10:18 AM . Narrative 08/03/2016 10:18 AM MANAGER LAND EXAMINATION: 1. Computed tomography (CT) of the [...] seen in the lower cervical spine. There bihsop diffuse short pedicles in the cervical spine, [...] * XR CHEST 2VW (08/02/2016 11:49 AM MANAGER LAND) Anatomical Region Laterality Modality Chest Other Impressions 08/02/2016 4:55 PM MANAGER LAND Impression: Bibasilar atelectasis, right greater than left, with small left pleural effusion. This report has been dictated by Ramiro Ribera M.D. (Resident). Dr. LESLY Reyes M.D. have personally reviewed and interpreted this examination/study. This report was electronically signed by LESLY FERMIN M.D. on 08/02/2016 4:55 PM . Narrative 08/02/2016 4:55 PM MANAGER LAND Exam: XR CHEST PA AND LATERAL. Date: [...] visible bony thorax is intact. Procedure Note eLsly Fermin MD - 12/07/2017 Exam: XR CHEST [...] RDERABLES * TROPONIN I (08/02/2016 10:25 AM MANAGER LAND) Pathologist [facility] Troponin I <0.010 <0.032 ng/mL [facility] Blood specimen (specimen) BLOOD SPECIMEN / Unknown 08/02/2016 10:25 AM MANAGER LAND 08/02/2016 10:33 AM MANAGER LAND Paula Cuevas MD LAB - CHEMISTRY LUIS ENRIQUE CELIS [address] [phone] * CK + CKMB PANEL (08/02/2016 10:25 AM MANAGER LAND) Pathologist [facility] CK Total 72 30 - 200 Units/L [facility] CK-MB 2.0 0.0 - 6.6 ng/mL [facility] Blood specimen (specimen) BLOOD SPECIMEN / Unknown 08/02/2016 10:25 AM MANAGER LAND 08/02/2016 10:33 AM MANAGER LAND Paula Cuevas MD LAB - CHEMISTRY LUIS ENRIQUE CELIS [address] [phone] * AMMONIA (08/02/2016 10:25 AM MANAGER LAND) Only the most recent of4 resultswithin the time period is included. Ammonia 43 11 - 64 umol/L [facility] Blood specimen (specimen) BLOOD SPECIMEN / Unknown 08/02/2016 10:25 AM MANAGER LAND 08/02/2016 10:33 AM MANAGER LAND Paula Cuevas MD LAB - CHEMISTRY LUIS ENRIQUE CELIS [address] [phone] * CCL CATH LEFT HEART ARTERY GRAFT (07/30/2016 8:26 AM MANAGER LAND) Anatomical Region Laterality Modality X-Ray Angiograph y Narrative 07/30/2016 9:22 AM MANAGER LAND [facility] Cardiac Catheterization Procedure Note Patient: Robert Harrell Age: 60 y.o. Date of : 1955 Date of Admission: 07/30/16 Procedure Date: 07/30/16 FELLOW / TERRAZZO WORKER HELPER: Jaleel Trinidad MD; Jj Thomas MD ATTENDING [...] occlusion. Coronary angiography was performed using 6Fr Hitchcock catheter. Left heart catheterization was performed using 6Fr Hitchcock catheter. At the conclusion of the procedure, [...] Procedure Note James Terrell MD - 02/14/2018 [facility] Cardiac Catheterization Procedure Note Patient: Robert Harrell Age: 60 y.o. Date of : 1955 Date of Admission: 07/30/16 Procedure Date: 07/30/16 FELLOW / TERRAZZO WORKER HELPER: Jaleel Trinidad MD; Jj Thomas MD ATTENDING [...] orocclusion. Coronary angiography was performed using 6Fr Hitchcock catheter.Left heart catheterization was performed using 6Fr Hitchcock catheter. At theconclusion of the procedure, hemostasis [...] MD 07/30/2016/9:29 AM Jerrell Brown MD CARDIAC MASTER [employer] RAD IANT * CT LIVER 3 PHASE W PELVIS (07/17/2016 10:49 AM MANAGER LAND) Anatomical Region Laterality Modality Abdomen Other Impressions 07/17/2016 5:17 PM MANAGER LAND IMPRESSION: 1. Arterially enhancing observation with washout [...] inguinal hernia. Dictated by Wilber Hall MD (president commercial bank) This report was approved by Mele Hall on 07/17/2016 5:09 PM . I, Dr. LESLY FERMIN M.D. have personally reviewed and interpreted this examination/study. This report was electronically signed by LESLY FERMIN M.D. on 07/17/2016 5:17 PM . Narrative 07/17/2016 5:17 PM MANAGER LAND EXAMINATION: Computed tomography (CT) of the abdomen [...] inguinal hernia. Dictated by Wilber Rafael, MD (president commercial bank) This report was approved by Mele Hall on 07/17/2016 5:09 PM . I, Dr. LESLY FERMIN M.D. have personally reviewed and interpreted thisexamination/study. This report was electronically signed by LESLY FERMIN M.D. on07/17/2016 5:17 PM . Ramon Morales MD CT ORDERABLES * ALPHA FETOPROTEIN + AFP-L3 (07/09/2016 9:35 AM CDT) Alpha-Fetoprotein 2.1 1.6 - 4.5 ng/mL [facility] ([facility]) Aypwj-Xtgwuqfojqn-A 3 SEE NOTE 0.5 - 9.9 % [facility]) Comment: NO VALUE DETERMINED The micro-total analysis system ([employer]) employs microchip capillary electrophoresis to quantitatively measure AFP and AFP-L3% by immunochemical techniques. The assay principle involves DNA-coupled antibodies and dye labeled antibodies, which react with proteins in liquid phase within the microchannels. Both analytes are quantified using laser-induced fluorescence. Instrument and associated reagents are supplied by [employer] [place], [place], [place]. Patients with elevated AFP-L3% values (>=10%) [...] can potentially cause an anomalous result. The [employer] System has been formulated to minimize the [...] HEPARIN, ARGATROBAN OR DABIGATRAN?->N Test Performed at: [facility] [address] [place] [address] REBECCA CHRISTIANSEN MD PHD Blood specimen (specimen) BLOOD SPECIMEN / Unknown 07/09/2016 9:35 AM CDT 07/09/2016 9:36 AM CDT Ramon Morales MD LAB - CHEMISTRY LUIS ENRIQUE CELIS [facility] Organization Address City/State/ZIP Co de Phone Number [facility] ([facility]) * (ABNORMAL) BLOOD GASES ART - PFT (06/19/2016 11:15 AM CDT) pH Arterial 7.43 7.35 - 7.45 [facility] pCO2 Arterial 36 35 - 45 mmHg [facility] pO2 Arterial 77 71 - 95 mmHg [facility] HCO3 Arterial 23.7 22.0 - 26.0 mmol/L [facility] TCO2 Arterial 24.8(L) 25.0 - 29.0 mmol/L [facility] Base Excess Arterial 0.2 -2.0 - 2.0 mmol/L [facility] Hemoglobin Arterial 12.8(L) 13.5 - 17.5 g/dL [facility] Oxyhemoglobin Arterial 95.8 95.0 - 100.0 % [facility] Carboxyhemoglobin 2.2 0.0 - 3.0 % [facility] Methemoglobin 0.0 0.0 - 2.0 % [facility] FI O2 Arterial 20.9 % [facility] Blood specimen (specimen) ARTERY SPECIMEN / Unknown 06/19/2016 11:15 AM CDT 06/19/2016 11:46 AM CDT Narrative [facility] - 06/19/2016 11:47 AM CDT Room air (21%)->Yes FiO2->20.9 Liters/minute->0 Tino Santiago MD LAB - BLOOD GASES OR DERABLES Performing Organization Address [facility] Co de Phone Number [address] [phone] * MITOCHONDRIAL ANTIBODY SCREEN (06/19/2016 7:19 AM CDT) Only the most recent of2 resultswithin the time period is included. Mitochondrial M2 Antibody 12.1 0.0 - 20.0 Units [facility] Comment: Mitochondrial M2 Antibody Numeric Result Interpretation: <20.1 Units: Negative 20.1 - 24.9 Units: Equivocal >24.9 Units: Positive Blood specimen (specimen) BLOOD SPECIMEN / Unknown 06/19/2016 7:19 AM CDT 06/19/2016 8:14 AM CDT Jerrell Brown MD LAB - CHEMISTRY LUIS ENRIQUE CELIS Performing Organization Address [facility] Co de Phone Number [address] [phone] * (ABNORMAL) HEPATITIS A ANTIBODY (06/19/2016 7:19 AM CDT) Hepatitis A Virus Antibody Total Positive(A ) Negative [facility] ([facility]) Blood specimen (specimen) 06/19/2016 7:19 AM CDT 06/19/2016 8:40 AM CDT Narrative [facility] ([facility]) - 06/20/2016 6:16 AM CDT Performed at: [address] [place] [address] [id number] Marine Structural Designer: Tio Segal PhD, Phone: [phone] Jerrell Brown MD LAB - CHEMISTRY LUIS ENRIQUE CELIS [facility] ([place]) * QAXVL-5-SXBBBBSEEDZ BLOOD PHENOTYPING PANEL (03/26/2016 8:53 AM CDT) Axjjh-6-Jybkwwujm in Phenotype SEE NOTE [facility] ([facility]) Comment: THIS PATIENT'S MFDMD-5-HVBVCIQTUQY 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 90% of normal individuals have the MM phenotype, with normal quantitative AAT levels. Many phenotypic patterns have been described, including deficiency states with F, S, Z, or other alleles. As a general estimation, compared to M allele of 100% of normal P-2-Jyxeumelonn protein, the S allele produces approximately 60% and the Z allele 20%. For example, an MS phenotype would have about 80% of normal Z-1-Sdxwsmcfaka protein level, a 50% contribution from the M allele and 30% from the S allele. A ZZ phenotype would have about 20% of normal levels, a 10% contribution from each Z gene. The F allele has normal U-8-Ddtaingiwpp levels, but the kinetics of elastase inhibition [...] phenotype. REPORT COMMENT: FASTING:YES Test Performed at: [facility] [address] [place] [address] REBECCA CHRISTIANSEN MD PHD 03/26/2016 8:53 AM CDT 03/26/2016 8:53 AM CDT Ramon Morales MD LAB - CHEMISTRY LUIS ENRIQUE CELIS Performing Organization Address City/[facility]/ZIP Co de Phone Number [facility] ([facility]) * (ABNORMAL) COPPER URINE (09/15/2015 1:16 PM MANAGER LAND) Copper Urine 13 Not Estab. ug/L [facility] ([facility]) Comment:Detection Limit = 1 Creatinine Urine 0.73 0.30 - 3.00 g/L [facility] ([facility]) Comment:Detection Limit = 0. 10 Copper/Creatini ne Ratio 18 0 - 49 ug/g creat [facility] ([facility]) Copper 24 Hour Urine 0(L) 3 - 35 ug/24 hr [facility] ([facility]) Urine specimen (specimen) (Urine, unspecified source) 09/15/2015 1:16 PM MANAGER LAND 09/15/2015 2:04 PM MANAGER LAND Narrative [facility] ([facility]) - 09/20/2015 6:14 AM MANAGER LAND 24 Hour Urine for Copper. Performed at: [address] [place] [address] [id number] Marine Structural Designer: Peter Treadwell MD, Phone: [phone] Naomi You MD LAB - URINE CHEMISTR Y ORDERABLES Performing Organization Address [facility] Co de Phone Number [facility] ([facility]) * (ABNORMAL) COPPER BLOOD (09/15/2015 12:02 AM MANAGER LAND) Copper 53(L) 72 - 166 ug/dL [facility] ([facility]) Comment:Detection Limit = 5 Blood specimen (specimen) BLOOD SPECIMEN / Unknown 09/15/2015 12:02 AM MANAGER LAND 09/15/2015 12:06 AM MANAGER LAND Narrative [facility] ([facility]) - 09/17/2015 6:14 AM MANAGER LAND Performed at: [address] [place] [address] [id number] Marine Structural Designer: Peter Treadwell MD, Phone: [phone] Naomi You MD LAB - CHEMISTRY LUIS ENRIQUE CELIS Performing Organization Address City/[facility]/ZIP Co de Phone Number [facility]) * CORTISOL BLOOD AM (09/14/2015 4:58 AM MANAGER LAND) Pathologist [facility] Cortisol AM 6.5 3.7 - 19.4 mcg/dL [facility] Blood specimen (specimen) BLOOD SPECIMEN / Unknown 09/14/2015 4:58 AM MANAGER LAND 09/14/2015 5:04 AM MANAGER LAND Naomi You MD LAB - CHEMISTRY LUIS ENRIQUE CELIS [address] [phone] * HEPATITIS B VIRUS DNA QUANT PCR (09/14/2015 12:14 AM MANAGER LAND) [facility] Hepatitis B Virus IU/mL Comment IU/mL [facility]) Comment:HBV DNA not detected Hepatitis B Virus DNA (Log IU/mL) TNP ouv27UC/mL [facility]) Comment: Unable to calculate result since non-numeric result obtained for component test. Test Information Comment [facility]) Comment:The reportable range for this assay is 20 to 170,000,000 IU/mL 09/14/2015 12:1 4 AM MANAGER LAND 09/14/2015 12:23 AM MANAGER LAND Narrative [facility]) - 09/17/2015 5:08 PM MANAGER LAND Performed at: [address] [place] [address] [id number] Marine Structural Designer: Peter Treadwell MD, Phone: [phone] Naomi You MD LAB - SEROLOGY KAREL MAYRA Performing Organization Address City/[facility]/ZIP Co de Phone Number [facility]) * HEMOCHROMATOSIS MUTATION PANEL (09/14/2015 12:14 AM MANAGER LAND) [facility] Hemochromatosis Genotype Specimen: 3 ml Peripheral Blood Reference: [id number] Test: Hemochromatosis Genotyping RESULT Hemochromatosis Genotyping C282Y [...] determined by the DNA Diagnostic Laboratory at [facility]. It has not been cleared or approved [...] complexity clinical laboratory testing. Test performed at [facility], [address] [place] [address] This case has been personally reviewed and interpreted by the attending (teaching) pathologist. Final Diagnosis performed by Evelyn Santamaria MD. Electronically signed 09/15/2015 [facility] PATHOLOGY LAB ([place]) Blood specimen (specimen) BLOOD SPECIMEN / Unknown 09/14/2015 12:14 AM MANAGER LAND 09/14/2015 12:21 AM MANAGER LAND Naomi You MD LAB - CHEMISTRY LUIS ENRIQUE CELIS [facility] PATHOLOGY LAB ([place]) * (ABNORMAL) CERULOPLASMIN (09/14/2015 12:14 AM MANAGER LAND) Ceruloplasmin 16(L) 20 - 60 mg/dL [facility] Blood specimen (specimen) BLOOD SPECIMEN / Unknown 09/14/2015 12:14 AM MANAGER LAND 09/14/2015 12:23 AM MANAGER LAND Naomi You MD LAB - CHEMISTRY LUIS ENRIQUE CELIS Performing Organization Address City/[facility]/ZIP Co de Phone Number [address] [phone] * SIMXI-8-RHZUDUCRTPG BLOOD (09/14/2015 12:14 AM MANAGER LAND) Only the most recent of2 resultswithin the time period is included. Wzqff-5-Jelhah ypsin 119 90 - 200 mg/dL [facility] Blood specimen (specimen) BLOOD SPECIMEN / Unknown 09/14/2015 12:14 AM MANAGER LAND 09/14/2015 12:23 AM MANAGER LAND Naomi You MD LAB - CHEMISTRY LUIS ENRIQUE CELIS Performing Organization Address [facility] Co de Phone Number [address] [phone] * IRON BLOOD (09/14/2015 12:14 AM MANAGER LAND) Iron 92 50 - 175 mcg/dL [facility] Blood specimen (specimen) BLOOD SPECIMEN / Unknown 09/14/2015 12:14 AM MANAGER LAND 09/14/2015 12:23 AM MANAGER LAND Naomi You MD LAB - CHEMISTRY LUIS ENRIQUE CELIS Performing Organization Address [facility]/ZIP Co de Phone Number [address] [phone] * OSMOLALITY URINE (09/12/2015 4:50 PM MANAGER LAND) Only the most recent of2 resultswithin the time period is included. Osmolality Urine 693 500 - 800 mOsm/kg [facility] Urine specimen (specimen) URINE SPECIMEN OBTAINED BY CLEAN CATCH PROCEDURE / Unknown 09/12/2015 4:50 PM MANAGER LAND 09/12/2015 4:58 PM MANAGER LAND Duran Wilhelm MD LAB - URINE CHEMISTR Y ORDERABLES Performing Organization Address [facility] Co de Phone Number [address] [phone] * URIC ACID BLOOD (09/12/2015 1:35 PM MANAGER LAND) Uric Acid 4.3 2.6 - 7.2 mg/dL [facility] Blood specimen (specimen) BLOOD SPECIMEN / Unknown 09/12/2015 1:35 PM MANAGER LAND 09/12/2015 1:51 PM MANAGER LAND Duran Wilhelm MD LAB - CHEMISTRY ORDE ALLITA Performing Organization Address [facility] Co de Phone Number [address] [phone] * CORTISOL BLOOD PM (09/12/2015 1:35 PM MANAGER LAND) Cortisol PM 11.4 2.9 - 17.3 mcg/dL [facility] Blood specimen (specimen) BLOOD SPECIMEN / Unknown 09/12/2015 1:35 PM MANAGER LAND 09/12/2015 3:00 PM MANAGER LAND Naomi You MD LAB - CHEMISTRY LUIS ENRIQUE CELIS Performing Organization Address [facility] Co de Phone Number [address] [phone] * US ABDOMEN LIMITED (09/12/2015 12:12 PM MANAGER LAND) Anatomical Region Laterality Modality Abdomen Other Impressions 09/13/2015 3:01 PM MANAGER LAND IMPRESSION: 1. Hepatic cirrhosis. No discrete hepatic [...] 5:47 PM . Narrative 09/13/2015 3:01 PM MANAGER LAND EXAMINATION: 1. Limited abdominal sonogram 2. Color [...] * (ABNORMAL) OSMOLALITY BLOOD (09/11/2015 11:45 PM MANAGER LAND) Only the most recent of2 resultswithin the time period is included. Osmolality 269(L) 270 - 300 mOsm/kg [facility] Blood specimen (specimen) BLOOD SPECIMEN / Unknown 09/11/2015 11:45 PM MANAGER LAND 09/12/2015 12:11 AM MANAGER LAND Scott Lee MD LAB - CHEMISTRY ORDE RABLES Performing Organization Address [facility]/ZIP Co de Phone Number [address] [phone] * SODIUM URINE RANDOM (09/11/2015 9:47 PM MANAGER LAND) Sodium Urine 49 Not Established mmol/L [facility] Urine specimen (specimen) URINE / Unknown 09/11/2015 9:47 PM MANAGER LAND 09/11/2015 9:47 PM MANAGER LAND Scott Lee MD LAB - URINE CHEMISTR Y ORDERABLES Performing Organization Address [facility] Co de Phone Number [address] [phone] * UREA NITROGEN URINE RANDOM (09/11/2015 9:47 PM MANAGER LAND) Urea Nitrogen Random Urine 776 Not Established mg/dL [facility] Urine specimen (specimen) URINE / Unknown 09/11/2015 9:47 PM MANAGER LAND 09/11/2015 9:47 PM MANAGER LAND Scott Lee MD LAB - URINE CHEMISTR Y ORDERABLES Performing Organization Address [facility] Co de Phone Number [address] [phone] * CREATININE URINE RANDOM (09/11/2015 9:47 PM MANAGER LAND) Creatinine Urine 131 Not Established mg/dL [facility] Comment:Result obtained by prema zepeda. Urine specimen (specimen) URINE / Unknown 09/11/2015 9:47 PM MANAGER LAND 09/11/2015 9:47 PM MANAGER LAND Scott Lee MD LAB - URINE CHEMISTR Y ORDERABLES Performing Organization Address [facility] Co de Phone Number [address] [phone] * CULTURE URINE (09/11/2015 9:37 PM MANAGER LAND) Culture Urine No Growth of >=100 CFU/ml after 48 Hours [facility] Urine specimen (specimen) URINE / Unknown 09/11/2015 9:37 PM MANAGER LAND 09/11/2015 9:46 PM MANAGER LAND Narrative [facility] - 09/14/2015 11:59 AM MANAGER LAND Specimen Type->Urine Scott Lee MD LAB - MICROBIOLOGY O RDERABLES Performing Organization Address [facility] Co de Phone Number [address] [phone] * (ABNORMAL) JARROD BLOOD SCREEN (09/11/2015 10:47 AM MANAGER LAND) JARROD Positive(A ) None Detected [facility] Venous blood specimen (specimen) 09/11/2015 10:47 AM MANAGER LAND 09/11/2015 10:52 AM MANAGER LAND Scott Lee MD LAB - CHEMISTRY ORDE RABLES Performing Organization Address [facility] Co de Phone Number [address] [phone] * JARROD BLOOD SCREEN W/REFLEX TITER (09/11/2015 10:47 AM MANAGER LAND) JARROD IFA Negative [facility] ([facility]) Comment: Negative <1:80 Borderline 1:80 Positive >1:80 Venous blood specimen (specimen) BLOOD SPECIMEN / Unknown 09/11/2015 10:47 AM MANAGER LAND 09/12/2015 11:43 AM MANAGER LAND Narrative [facility] ([place]) - 09/13/2015 5:11 PM MANAGER LAND Performed at: [address] [id number] Marine Structural Designer: Tio Segal PhD, Phone: [phone] Scott Lee MD LAB - CHEMISTRY LUIS ENRIQUE CELIS Performing Organization Address City/[facility]/ZIP Co de Phone Number [facility] * SMOOTH MUSCLE ANTIBODY (09/11/2015 10:46 AM MANAGER LAND) F-Actin Antibody IgG 17.9 0.0 - 19.9 Units [facility] Comment: F-Actin Antibody Numeric Result Interpretation: <20.0 Units: Negative 20.0 - 30.0 Units: Weak Positive >30.0 Units: Moderate to Strong Positive Blood specimen (specimen) BLOOD SPECIMEN / Unknown 09/11/2015 10:46 AM MANAGER LAND 09/11/2015 10:52 AM MANAGER LAND Scott Lee MD LAB - SEROLOGY ORDER MAYRA Performing Organization Address City/[facility]/ZIP Co de Phone Number [address] [phone] * (ABNORMAL) HEPATITIS B SURFACE ANTIBODY (09/11/2015 10:46 AM MANAGER LAND) Hepatitis B Virus Surface Antibody Reactive( A) Non-react rosendo [facility] Comment: > 12 mIU/mL Hepatitis B surface Antibody (HBsAb). Reactive for HBsAb - individual is considered immune to Hepatitis B Virus infection. Hepatitis B Surface Antibody Quantitative 76.9(H) <8.0 mIU/mL [facility] Comment: Hepatitis B Surface Antibody Numeric Result Interpretation: Nonreactive: <8.0 mIU/mL Indeterminate: 8.0 - 12.0 mIU/mL Reactive: >12.0 mIU/mL Blood specimen (specimen) BLOOD SPECIMEN / Unknown 09/11/2015 10:46 AM MANAGER LAND 09/11/2015 10:52 AM MANAGER LAND Scott Lee MD LAB - CHEMISTRY LUIS ENRIQUE CELIS Performing Organization Address City/[facility]/ZIP Co de Phone Number [address] [phone] * HEPATITIS C ANTIBODY (09/11/2015 10:46 AM MANAGER LAND) Hepatitis C Antibody Non-react rosendo Non-reac tive [facility] Comment: Hepatitis C Antibody screen indicates no serologic evidence of past or current infection with Hepatitis C Virus. Patients with unexplained liver disease who are immunocompromised or suspected of having acute Hepatitis C infection may benefit from Nucleic Acid Test (ERUM) for Hepatitis C Viral RNA to confirm Hepatitis C status. Blood specimen (specimen) BLOOD SPECIMEN / Unknown 09/11/2015 10:46 AM MANAGER LAND 09/11/2015 10:52 AM MANAGER LAND Scott Lee MD LAB - CHEMISTRY LUIS ENRIQUE CELIS Performing Organization Address [facility] [place] [address], [facility] [phone] * CULTURE BLOOD (09/11/2015 2:55 AM MANAGER LAND) Only the most recent of2 resultswithin the time period is included. Pathologist [facility] Culture Blood No Growth at 5 days [facility] Blood specimen (specimen) 09/11/2015 2:55 AM MANAGER LAND 09/11/2015 3:00 AM MANAGER LAND Narrative [facility] - 09/16/2015 3:15 AM MANAGER LAND Draw 15 minutes after Culture 1 from a different site Scott Lee MD LAB - MICROBIOLOGY O RDERABLES Performing Organization Address City/[facility]/ZIP [place] [address], [facility] [phone] Care Teams Youth Worker Relationship Specialty Start Date End Date Sharri Argueta DO [address] [address] PCP - General 10/23/20 Qi Story, RN Registered Nurse 10/28/20
--- OUTSIDE RECORDS SUMMARY | 2024-11-23 19:22 | XMS_ITS ---
Author Organization [facility] Address [address] [place] [address] Care Team Providers Care Route Sales Person Name Role Phone Sharri Argueta DO Primary Care Provider [phone] Qi Story RN Unavailable Unavailable Transplant Episode Liver Recipient [facility] ([place], [place]) - [facility] Organ Received: Liver Transplanted on 11/03/2017 Marked as Active Follow-up on 11/03/2017 Liver CoordinatorQi Story RN Phone: N/A Fax: N/A Email: N/A [place] Organ Diagnosis Organ Primary Contributory Liver Cirrhosis: [...]
--- OUTSIDE RECORDS SUMMARY | 2024-11-23 19:22 | XMS_ITS | Clinical Summary ---
Author Organization [facility] Address [address] [place] [address] Care Team Providers Care Corporate Security Manager Name Role Phone Sharri Argueta DO Primary Care Provider [phone] Qi Story RN Unavailable Unavailable Source Comments [facility],non-owned Affiliates and Associated Physician Practices is amultiple site organization consisting of ambulatory clinics and hospital sitesin [place], [place], [place] and [place]. This disclosure is being madepursuant to the Care Everywhere program and may not contain all information available regarding this patient. 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 -start TAC oint BID PRN w wet wraps, instructions provided Multiple benign melanocytic nevi of upper extremity, lower extremity, and trunk 11/04/2020 Assessment & Plan (11/04/2020 12:01 PM ER PHYSICIAN): - None atypical or more concerning than others on exam today - Counseled on importance of daily sun protection, and monthly self skin exams - Reviewed ABCDEs of melanoma - Advised sun protective behaviors and regular sun screen use - Annual FBSE Lentigines 11/04/2020 Assessment & Plan (11/04/2020 12:01 PM ER PHYSICIAN): -Benign, reassurance Other specified dermatitis 11/04/2020 Seborrheic keratosis 11/04/2020 Neutropenia 10/28/2020 History of hepatocellular carcinoma 11/20/2018 Long-term use of immunosuppressant medication Benign essential HTN 08/28/2018 IPMN (intraductal papillary mucinous neoplasm) 0 05/23/2018 Fatty pancreas 05/08/2018 Right inguinal hernia 05/08/2018 Overview (05/08/2018): Indirect Diabetes mellitus type 2, uncontrolled 8 Pre-transplant evaluation for liver transplant 0 12/23/2017 Overview (12/23/2017): LISTED Diagnosis: BRADSHAW/HCC Referring Civil Cad Tech: Andrew Alert: Will need renoportal at the [...] It is the impression of this social science teacher that Robert Rico Cateanalia has several positive factors for Liver transplant candidacy including knowledge of illness, sufficient insurance coverage, stable financial situation for post transplant needs, and no concerns regarding substance abuse. SW concerns are patient's support system and discharge plan. Plan: rail maintenance worker to provide supportive services as needed. Patient appears to be a reasonable candidate for transplant from a psychosocial perspective, pending: - Post transplant arrangement forms are needed prior to being listed, with confirmation. Psychiatric Consult Recommended: No Transplant Wind Operations Manager: MIKY OVERTON RD: 24 Hour Recall/food frequency: eggs, chocolate milk, salad, spaghetti, hamburger, [place] - loaiza seared, mash potatoes, broccoli, corn cauliflower, apples, ham and vincentian, lettuce and tomato sandwich, Ramen noodles about [...] Transplant Date: 11/03/2017 Donor: Standard criteria donor [id number] CMV D-/R-, EBV D+/R+ Pre-Transplant Summary: ESLD [...] PCP Adjustments: Readmissions: Biopsies: Explant Liver, explant, enterprise hepatectomy (A): - Cirrhosis (history of BRADSHAW) - Completely necrotic nodule in right lobe (4.0 cm) - Macroregenerative nodules, multifocal - Focal dysplasia (small and large cell changes) - Hepatocellular iron focally up to 4+ - No viable hepatocellular carcinoma identified Gallbladder, enterprise hepatectomy (A): - Mild chronic cholecystitis Gallbladder, [...] cirrhosis. The PAS-D stain is negative for vlumg-2-dnvznpkivpe globules. The iron stain shows granular hepatocellular [...] from the prior study (LR 3). 2. Vnitqb-xtcuf-nbzcrl venous anastomosis, with unchanged aneurysmal dilatation at [...] liver without washout (LR 3). 2. Patent tqpdzo-qnhsp-jaxobi venous anastomosis, with unchanged aneurysmal dilatation of [...] recommended. Assessment & Plan (11/04/2020 12:01 PM ER PHYSICIAN): -discussed inc risk NMSC/MM - Reviewed ABCDEs [...] Refill [facility] GI [address] [place] [address] Ramon Morales MD Refill Request 10/02/2024 Orders Only [facility] [address] [place] [address] Ramon Morales MD Long-term use of immunosuppressant medication; S/P liver transplant (HCC) 09/14/2024 Refill [facility] - GI [address] [place] [phone] Ramon Morales MD MEDICATION REFILL 08/28/2024 Telephone [facility] - Nephrology [address] [place] [phone] Ramon Morales MD Surgery Scheduling from Last 3 Months Immunizations Name Administration Dates Next Due Mimoco primary monoval ent 12+ yr 0.3mL Purple [...] Sexual Orientation Straight 07/31/2024 7: 47 PM ER PHYSICIAN Last Filed Vital Signs Vital Sign Reading Time Taken Comments Blood Pressure 137/83 07/21/2024 1:48 PM ER PHYSICIAN Pulse 74 07/21/2024 1:48 PM ER PHYSICIAN Temperature 36.4 C (97.5 F) 05/31/2023 1:01 PM CDT Respiratory Rate 18 07/21/2024 1:48 PM ER PHYSICIAN Oxygen Saturation 99% 07/21/2024 1:48 PM ER PHYSICIAN Inhaled Oxygen Concentration - - Weight 93.7 kg (206 lb 9.6 oz) 07/21/2024 1:48 P M ER PHYSICIAN Height 182.9 cm (6') 07/21/2024 1:48 PM ER PHYSICIAN Body Mass Index 28.02 07/21/2024 1:48 PM ER PHYSICIAN Plan of Treatment Upcoming Encounters Date Type Department Care Team (Late st Contact Info) Description 02/02/2025 12:00 PM CDT Office Visit [facility] [address] [place] [address], [place] [phone] Ramon Morales MD [address] [place] [address] [place] [address] Health Maintenance Due Date Last Done Comments [...] COMPREHENSIVE METABOLIC PANEL Routine 07/15/2024 8:06 AM ER PHYSICIAN Long-term use of immunosuppressant medication S/P liver transplant (HCC) ENDOSCOPY, COLON, SCREENING Routine 04/04/2020 9:37 AM CDT HEMOGLOBIN A1C 03/14/2020 8:46 AM CDT HEPATITIS C ANTIBODY Routine 09/11/2015 10:46 AM ER PHYSICIAN from Last 3 Months or Most Recently Relevant to Health Maintenance Results * (ABNORMAL) COMPREHENSIVE METABOLIC PANEL (07/15/2024 8:06 AM ER PHYSICIAN) Glucose 149(H) 65 - 99 mg/dL [facility] [...] 46 U/L [facility] Comment: Test Performed at: [facility] [address] [place] [address] KAMAR ALEXANDRE MD Blood BLOOD SPECIMEN / Unknown 07/15/2024 8:06 AM ER PHYSICIAN 07/15/2024 8:07 AM ER PHYSICIAN Ramon Morales MD LAB - CHEMISTRY LUIS ENRIQUE CELIS [facility] Organization Address City/State/[facility] Co de Phone Number [facility] [address] [place] [address] * ENDOSCOPY, COLON, SCREENING (04/04/2020 9:37 AM [...] and oxygen saturations were monitored continuously. The [id number] was introduced through the anus and advanced to the cecum, identified by appendiceal orifice and ileocecal valve. The colonoscopy was performed without difficulty. The patient tolerated the procedure well. The quality of the bowel preparation was evaluated using the BBPS ([place] Bowel Preparation Scale) with scores of: Right [...] non-shelby portions. Procedure Code(s): --- Professional --- 06116, Colonoscopy, flexible; with removal of tumor(s), polyp(s), or other lesion(s) by snare technique 95626, 59, Colonoscopy, flexible; with biopsy, single or multiple Diagnosis Code(s): --- Professional --- Z12.11, Encounter for screening for malignant neoplasm of colon K63.5, Polyp of colon K62.1, Rectal polyp CPT copyright 2019 [employer]. All rights reserved. The codes documented in this report are preliminary and upon business services associate review may be revised to meet current compliance requirements. _ Ramon Morales MD 04/04/2020 10:34:35 AM This report has been signed electronically. Note Initiated On: 04/04/2020 9:37 AM Number of Addenda: 0 [facility] [address] [place], [place] [id number] [place] [address] 04/04/2020 9:37 AM CDT Elda Rashid MD GI PROCEDURE ORDERAB LES Performing Organization Address [facility] Co de Phone Number [facility] * [...] of diabetes for children. Test Performed at: [facility] [address] [place] [address] OMARI HOFFMANN DO,MPH 03/14/2020 8:46 AM CDT 03/14/2020 8:47 AM CDT Ramon Moralse MD LAB - CHEMISTRY LUIS ENRIQUE CELIS Performing Organization Address [facility] Co de Phone Number [facility] [address] [place] [address] * HEPATITIS C ANTIBODY (09/11/2015 10:46 AM ER PHYSICIAN) Hepatitis C Antibody Non-react rosendo Non-reac tive [facility] Comment: Hepatitis C Antibody screen indicates no serologic evidence of past or current infection with Hepatitis C Virus. Patients with unexplained liver disease who are immunocompromised or suspected of having acute Hepatitis C infection may benefit from Nucleic Acid Test (ERUM) for Hepatitis C Viral RNA to confirm Hepatitis C status. Blood specimen (specimen) BLOOD SPECIMEN / Unknown 09/11/2015 10:46 AM ER PHYSICIAN 09/11/2015 10:52 AM ER PHYSICIAN Scott Lee MD LAB - CHEMISTRY LUIS ENRIQUE CELIS [facility] [address] [place] [address], 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
--- OUTSIDE RECORDS SUMMARY | 2024-11-23 19:22 | XMS_ITS | Clinical Summary ---
Author Organization [facility] Address [facility] [place] [address] Care Team Providers Care Culinary Instructor Name Role Phone Rod Sanches MD Primary Care Provider [phone] Social History Tobacco Use Types Packs/Day Years [...] age to complete this topic Care Teams Culinary Instructor Relationship Specialty Start Date End Date Rod Sanches MD [address] [place] [phone] PCP - General 09/10/15
--- OUTSIDE RECORDS SUMMARY | 2024-11-23 19:22 | XMS_ITS | Referral Summary ---
Author Organization [facility] Address [address] [facility] [place] [address] Care Team Providers Care Service Dog Trainer Name Role Phone Sharri Argueta DO Primary Care Provider [phone] Qi Story RN Unavailable Unavailable Source Comments [facility],non-owned Affiliates and Associated Physician Practices is amultiple site organization consisting of ambulatory clinics and hospital sitesin [place], [place], [place] and [place]. This disclosure is being madepursuant to the Care Everywhere program and may not contain all information available regarding this patient. Last updated 18.[facility] Encounters Date Type Department Care Team Description 10/21/2024 Refill [facility] [address] [place] [address], [place] [phone] Ramon Morales MD Refill Request 10/02/2024 Orders Only [facility] - [address] [phone] Ramon Morales MD Long-term use of immunosuppressant medication; S/P liver transplant (HCC) 09/14/2024 Refill [facility] [address] [place] [address], [place] [phone] Ramon Morales MD MEDICATION REFILL 08/28/2024 Telephone [facility] - Nephrology [address] [facility], [place] [address] Ramon Morales MD Surgery Scheduling from Last [...] 021 Assessment & Plan (11/04/2020 12:02 PM FINISHER DENTURE): -L ankle/foot -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 -start TAC oint BID PRN w wet wraps, instructions provided Multiple benign melanocytic nevi of upper extremity, lower extremity, and trunk 11/04/2020 Assessment & Plan (11/04/2020 12:01 PM FINISHER DENTURE): - None atypical or more concerning than others on exam today - Counseled on importance of daily sun protection, and monthly self skin exams - Reviewed ABCDEs of melanoma - Advised sun protective behaviors and regular sun screen use - Annual FBSE Lentigines 11/04/2020 Assessment & Plan (11/04/2020 12:01 PM FINISHER DENTURE): -Benign, reassurance Other specified dermatitis 11/04/2020 Seborrheic keratosis 11/04/2020 Neutropenia 10/28/2020 History of hepatocellular carcinoma 11/20/2018 Long-term use of immunosuppressant medication Benign essential HTN 08/28/2018 IPMN (intraductal papillary mucinous neoplasm) 0 05/23/2018 Fatty pancreas 05/08/2018 Right inguinal hernia 05/08/2018 Overview (05/08/2018): Indirect Diabetes mellitus type 2, uncontrolled 8 Pre-transplant evaluation for liver transplant 0 12/23/2017 Overview (12/23/2017): LISTED Diagnosis: BRADSHAW/HCC Referring Plans Examiner: Andrew Alert: Will need renoportal at the [...] It is the impression of this social insurance administrator that Robert Harrell has several positive factors for Liver transplant candidacy including knowledge of illness, sufficient insurance coverage, stable financial situation for post transplant needs, and no concerns regarding substance abuse. SW concerns are patient's support system and discharge plan. 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 Patient appears to be a reasonable candidate for transplant from a psychosocial perspective, pending: - Post transplant arrangement forms are needed prior to being listed, with confirmation. Psychiatric Consult Recommended: No Transplant Talk Show Host: MIKY OVERTON RD: 24 Hour Recall/food frequency: eggs, chocolate milk, salad, spaghetti, hamburger, [place] - loaiza seared, mash potatoes, broccoli, corn cauliflower, apples, ham and fijian, lettuce and tomato sandwich, Ramen noodles about [...] Transplant Date: 11/03/2017 Donor: Standard criteria donor [id number] CMV D-/R-, EBV D+/R+ Pre-Transplant Summary: ESLD [...] PCP Adjustments: Readmissions: Biopsies: Explant Liver, explant, minto hepatectomy (A): - Cirrhosis (history of BRADSHAW) - Completely necrotic nodule in right lobe (4.0 cm) - Macroregenerative nodules, multifocal - Focal dysplasia (small and large cell changes) - Hepatocellular iron focally up to 4+ - No viable hepatocellular carcinoma identified Gallbladder, minto hepatectomy (A): - Mild chronic cholecystitis Gallbladder, [...] cirrhosis. The PAS-D stain is negative for fvxog-7-aiydgceldbn globules. The iron stain shows granular hepatocellular [...] from the prior study (LR 3). 2. Shzlcu-ivxho-ciucgx venous anastomosis, with unchanged aneurysmal dilatation at [...] liver without washout (LR 3). 2. Patent zakafs-twagj-lkowwe venous anastomosis, with unchanged aneurysmal dilatation of [...] recommended. Assessment & Plan (11/04/2020 12:01 PM FINISHER DENTURE): -discussed inc risk NMSC/MM - Reviewed ABCDEs [...] 12/23/2017 Immunizations Name Administration Dates Next Due Mibio primary monoval ent 12+ yr 0.3mL Purple [...] Sexual Orientation Straight 07/31/2024 7: 47 PM FINISHER DENTURE Last Filed Vital Signs Vital Sign Reading Time Taken Comments Blood Pressure 137/83 07/21/2024 1:48 PM FINISHER DENTURE Pulse 74 07/21/2024 1:48 PM FINISHER DENTURE Temperature 36.4 C (97.5 F) 05/31/2023 1:01 PM CDT Respiratory Rate 18 07/21/2024 1:48 PM FINISHER DENTURE Oxygen Saturation 99% 07/21/2024 1:48 PM FINISHER DENTURE Inhaled Oxygen Concentration - - Weight 93.7 kg (206 lb 9.6 oz) 07/21/2024 1:48 P M FINISHER DENTURE Height 182.9 cm (6') 07/21/2024 1:48 PM FINISHER DENTURE Body Mass Index 28.02 07/21/2024 1:48 PM FINISHER DENTURE Plan of Treatment Upcoming Encounters Date Type Department Care Team (Late st Contact Info) Description 02/02/2025 12:00 PM CDT Office Visit [facility] [facility], [place] [address] Ramon Morales MD [address] [place] [address] [place] [address] Goals Goal Patient Goal Type Associated Problems Recent Progress Patient-Stated? Author Medication Management General On track( 023 1:11 PM CDT) No Ayah Coleman RN Note: Expected end date: ongoing Interventions: Take all medications as prescribed Procedures Procedure Name Priority Date/Time Associated Diagnosis Comments COMPREHENSIVE METABOLIC PANEL Routine 07/15/2024 8:06 AM FINISHER DENTURE Long-term use of immunosuppressant medication S/P liver transplant (HCC) ENDOSCOPY, COLON, SCREENING Routine 04/04/2020 9:37 AM CDT HEMOGLOBIN A1C 03/14/2020 8:46 AM CDT HEPATITIS C ANTIBODY Routine 09/11/2015 10:46 AM FINISHER DENTURE from Last 3 Months or Most Recently Relevant to Health Maintenance Results * (ABNORMAL) COMPREHENSIVE METABOLIC PANEL (07/15/2024 8:06 AM FINISHER DENTURE) Glucose 149(H) 65 - 99 mg/dL [facility] [...] 46 U/L [facility] Comment: Test Performed at: [facility] [address] [place] [address] KAMAR ALEXANDRE MD Blood BLOOD SPECIMEN / Unknown 07/15/2024 8:06 AM FINISHER DENTURE 07/15/2024 8:07 AM FINISHER DENTURE Ramon Morales MD LAB - CHEMISTRY ORDE LALITA [facility] [address] [place] [address] * ENDOSCOPY, COLON, SCREENING (04/04/2020 9:37 AM [...] and oxygen saturations were monitored continuously. The [id number] was introduced through the anus and advanced to the cecum, identified by appendiceal orifice and ileocecal valve. The colonoscopy was performed without difficulty. The patient tolerated the procedure well. The quality of the bowel preparation was evaluated using the BBPS ([place] Bowel Preparation Scale) with scores of: Right [...] non-shelby portions. Procedure Code(s): --- Professional --- 26833, Colonoscopy, flexible; with removal of tumor(s), polyp(s), or other lesion(s) by snare technique 36063, 59, Colonoscopy, flexible; with biopsy, single or multiple Diagnosis Code(s): --- Professional --- Z12.11, Encounter for screening for malignant neoplasm of colon K63.5, Polyp of colon K62.1, Rectal polyp CPT copyright 2019 [employer]. All rights reserved. The codes documented in this report are preliminary and upon sec accountant review may be revised to meet current compliance requirements. _ Ramon Morales MD 04/04/2020 10:34:35 AM This report has been signed electronically. Note Initiated On: 04/04/2020 9:37 AM Number of Addenda: 0 [facility] [address] [place] [address] [facility] 04/04/2020 9:37 AM CDT Elda Rashid MD GI PROCEDURE ORDERAB LES Performing Organization Address [facility]/ZIP Co de Phone Number [facility] * (ABNORMAL) HEMOGLOBIN A1C (03/14/2020 8:46 AM CDT) Pathologist [facility] Hemoglobin A1c 6.0(H) <5.7 % of total [...] of diabetes for children. Test Performed at: [facility] [address] [place] [address] OMARI HOFFMANN DO,MPH 03/14/2020 8:46 AM CDT 03/14/2020 8:47 AM CDT Ramon Morales MD LAB - CHEMISTRY LUIS ENRIQUE CELIS Performing Organization Address [facility] Co de Phone Number [facility] [address] [place] [address] * HEPATITIS C ANTIBODY (09/11/2015 10:46 AM FINISHER DENTURE) [facility] Hepatitis C Antibody Non-react rosendo Non-reac tive [facility] Comment: Hepatitis C Antibody [...] BLOOD SPECIMEN / Unknown 09/11/2015 10:46 AM FINISHER DENTURE 09/11/2015 10:52 AM FINISHER DENTURE Scott Lee MD LAB - CHEMISTRY LUIS ENRIQUE CELIS Performing Organization Address City/[facility]/ZIP Co de Phone Number [facility] [address] [place] [address] from Last 3 Months or Most Recently Relevant to Health Maintenance Advance Directives Documents on File Type Date Recorded Patient Insulation Installer Expl anation Advance Directives and Livin g Will 07/17/2016 12:00 AM Advance Directives and Livin g Will 09/11/2015 12:00 AM Care Teams Service Dog Trainer Relationship Specialty Start Date End Date Sharir Argueta DO [address] [place] [address] PCP - General 10/23/20 Qi Story, RN Registered Nurse 10/28/20
--- OUTSIDE RECORDS SUMMARY | 2024-11-23 19:22 | XMS_ITS | Encounter Summary ---
Author Organization [facility] Address [address] [place] [address] Care Team Providers Care Technician'S Helper Name Role Phone Rod Sanches MD Primary Care Provider [phone] Phylicia Beck RN Unavailable Unavailable Sharri Argueta DO Primary Care Provider [phone] Rod Sanches MD Primary Care Provider [phone] Sharri Argueta DO Primary Care Provider [phone] Qi Story RN Unavailable Unavailable Encounter Details Date Type Department Care Team (Late st Contact Info) Description 05/06/2018 Nutrition [facility] TRANSPLANT [address] [place] [phone] [address]/LOLLY Social History Tobacco Use Types Packs/Day Years Used Date Smoking Tobacco: Former Cigarettes Q uit: 09/11/1983 Smokeless Tobacco: Never Alcohol Use Standard Drinks/Week Comments No 0 (1 standard drink = 0.6 oz pur e alcohol) Sex and Gender Information Value Date Recorded Sex Assigned at Not on file Gender Identity Not on file Sexual Orientation Straight 07/31/2024 7: 47 PM INK TECHNICIAN documented as of this encounter Progress Notes [...] Saturday- Dinner - 6 fried chicken wings, serbian fries, HS - 6 cookies Saturday - [...] Description 02/02/2025 12:00 PM CDT Office Visit [facility] - GI [address] [place] [address], [place] [phone] Ramon Morales MD [address] [place] [address] [place] [address] documented as of this encounter Visit Diagnoses Not on filedocumented in this encounter Care Teams Technician'S Helper Relationship Specialty Start Date End Date Rod Sanches MD [address] [place] [address] PCP - General 06/09/16 01/13/20 Sharri Argueta DO [address] [place] [address] PCP - General 01/14/20 04/06/20 Rod Sanches MD [address] [place] [address] PCP - General 04/07/20 10/22/20 Sharri Argueta DO [address] [place] [address] PCP - General 10/23/20 Phylicia Beck, RN Registered Nurse 12/23/17 10/27/20 Qi Story, VALENTIN Registered Nurse 10/28/20 documented as of this encounter
--- OUTSIDE RECORDS SUMMARY | 2024-11-23 19:22 | XMS_ITS | Clinical Summary ---
[facility] Organization [facility] Address [address] [facility] [place] [address] Phone Care Team Providers Care Java Development Manager Name Role Phone Unavailable Primary Care Provider [...] file Legal Sex Male 7:29 AM TECHNICAL SUPPORT ENGINEER Gender Identity Not on file Sexual Orientation [...] cm (6' 1) 11/14/2017 8:00 PM TECHNICAL SUPPORT ENGINEER Body Mass Index 32.06 11/14/2017 8:00 PM TECHNICAL SUPPORT ENGINEER Plan of Treatment Health Maintenance Due Date [...] LIPID PANEL Routine 11/15/2017 5:52 AM TECHNICAL SUPPORT ENGINEER HEMOGLOBIN A1C Routine 11/15/2017 5:52 AM TECHNICAL SUPPORT ENGINEER from Last 3 Months or Most Recently Relevant to Health Maintenance Results * HEMOGLOBIN A1C (11/15/2017 5:52 AM TECHNICAL SUPPORT ENGINEER) HEMOGLOBIN A1C 6.0 4.0 - 6.0 % 11/15/2017 11:36 AM [facility] [employer] [facility] EST. AVG GLUCOSE, A1C 126 mg/dL 11/15/2017 11:36 AM [facility] [employer] [facility] Blood Venipuncture / Unknown 11/15/2017 5:52 AM TECHNICAL SUPPORT ENGINEER 11/15/2017 10:35 AM TECHNICAL SUPPORT ENGINEER Zackary Alfonso [facility] CHEMISTRY ORDERABLES F inal Result [facility] [employer] [facility] CLIA# [id number] [address] [facility] [place] [address] * (ABNORMAL) LIPID PANEL (11/15/2017 5:52 AM TECHNICAL SUPPORT ENGINEER) CHOLESTEROL 119 <200 mg/dL 11/15/2017 11:33 AM [facility] [employer] [facility] TRIGLYCERIDE 121 <150 mg/dL 11/15/2017 11:33 AM [facility] [employer] [facility] HDL 24(L) 40 - 59 mg/dL 11/15/2017 11:33 AM [facility] [employer] [facility] LDL CALCULATED 71 <100 mg/dL 11/15/2017 11:33 AM [facility] [employer] [facility] NON-HDL CHOLESTEROL 95 <130 mg/dL 11/15/2017 11:33 AM [facility] [employer] [facility] Blood Venipuncture / Unknown 11/15/2017 5:52 AM TECHNICAL SUPPORT ENGINEER 11/15/2017 10:35 AM TECHNICAL SUPPORT ENGINEER Narrative [facility] [employer] [facility] - 11/15/2017 11:33 AM TECHNICAL SUPPORT ENGINEER TOTAL CHOLESTEROL mg/dL Desirable <200 Borderline high [...] ORDERABLES F inal Result [facility]# [id number] [address] [place] [address] from Last 3 Months or Most Recently Relevant to Health Maintenance Insurance [facility] BLUE PREFERRED Advance Directives For more information, please contact: [phone] * Full Code (Latest Code Status on File) Date Activated Date Inactivated Comments 11/14/2017 12:56 PM 11/21/2017 1:27 PM
[2024-11-23 19:50] VITALS: O2SAT 100
[2024-11-23 21:00] VITALS: BP 160/79; PULSE 108; RESP 15; O2SAT 97
[2024-11-23] MEDS: PANTOPRAZOLE SODIUM IV 40 MG VIAL IV PUSH (21:14)
[2024-11-23] MEDS: LACTATED RINGERS 1,000 ML 125 ML IV CONT (21:15)
[2024-11-23 21:43] LABS: Influenza A QL RT-PCR Negative (Negative); Influenza B QL RT-PCR Negative (Negative); RSV RNA, RT-PCR Negative (Negative); SARS-CoV-2 RNA PCR Negative (Negative)
[2024-11-24] VITALS (12 sets, daily range): BP systolic 135–167; BP diastolic 63–91; PULSE 57–91; RESP 16–20; TEMP 36.2–36.6; O2SAT 96–99; BMI 26.4
[2024-11-24] MEDS: dexAMETHasone SOD PHOS INJ 4 MG/ML VIAL IV PUSH ×5 (00:30→23:51)
[2024-11-24] MEDS: LACTATED RINGERS 1,000 ML 125 ML IV CONT ×3 (05:45→20:23)
[2024-11-24] MEDS: PANTOPRAZOLE SODIUM IV 40 MG VIAL IV PUSH ×2 (09:06→20:23)
--- NOTE | 2024-11-24 09:59 | PC.NURSE ---
Patient off of unit to modified barium swallow study
--- NOTE | 2024-11-24 11:19 | PCSTNOTE ---
Please refer to the Modified Barium Swallow Evaluation in the EMR. The above pt was seen for a modified barium swallow due to choking with eating and drinking since his cervical fusion surgery on 11.20.24. He states that his voice is significantly different as well. Constant throat clearing and a gurgly/wet vocal quality were noted before testing. Pt was seated for a lateral view but was also visualized in A/P to assess vocal fold adduction. Pt was only given small 3-4ml amounts of thin liquid barium and 1/2 tsp amount of pudding. Marked swelling was exhibited at the surgical site near the upper esophagus. The oral stages were normal. During the pharyngeal swallow, reduced laryngeal elevation was exhibited as evidenced by laryngeal penetration during the swallow. (All) Contents could not clear the pyriform sinus/upper esophageal region and were spilled over into the laryngeal vestibule and aspirated after the swallow. A cough reflex was exhibited but it did not clear all of the aspirate. Pt was viewed in A/P which revealed > vocal fold adduction of the R vocal fold. Impression: severe dysphagia due to swelling r/t recent surgery. Aspiration occurred after the swallow of both liquids and puree. Recommendation: tube feeding if appropriate so to not further decondition. Per Neuro surgery, no ST at this time.
--- NOTE | 2024-11-24 12:03 | P.HP_ITS ---
H&P: HPI History of Present Illness Date/Time: 11/24/24 12:03 Chief Complaint: Difficulty swallowing/Neck swelling post-op cervical ACDF Narrative: Patient is a 69-year-old male who presented to the emergency department 3 days postop from a cervical ACDF. Patient reports he has had increasing swelling over the past 3 days and was unable to swallow food or liquid. Patient's labs vitals reviewed unremarkable however platelets were low patient has history of thrombocytopenia from liver transplant. CT did not show anything significant but did show a was protecting his airway patient denied shortness of breath or difficulty breathing. Patient reported past medical history of hypertension, liver transplant, and diabetes. There was noted increased swelling to the left anterior neck from incision. Consult to Dr. Indiana guzman surgery was placed who requested patient be started on dexamethasone q.6 as well as PPI b.i.d. and admit for further evaluation. Review of Systems Review of Systems: All systems reviewed & are unremarkable except as noted in HPI and below PMFSH Past Medical History Medical History Seizures Chronic headaches Diabetes Asthma Allergies Hepatitis C antibody test negative (02/23/12) Surgical History Surgical History H/O inguinal hernia repair H/O kyphoplasty Hx of carpal tunnel repair Bilateral - January and February 2023 Liver transplant recipient (~2017) Family History Family History Grandparent Diabetes mellitus Acute myocardial infarction Cerebrovascular accident Mother Family history of malignant neoplasm, Onset Age: 41 Father Hypertension Other Family history of alcoholism Family history of blood dyscrasia Social History Social History Smoking packs per day: 2 Smoking cigarettes per day: 40.0 Years smoked: 12 Smoking pack-years: 24.00 Smoking status: Former smoker Tobacco type: cigarettes Smoking end date: 12/15/84 Alcohol intake: never Substance use: never Substance use type: does not use Do You Feel Safe in your Home?: Yes Lack of Transportation: No Lack of Food: Never True Current Housing: I Have Housing Concerned About Future Housing: No Difficulty Paying Gas/Electric Bills: No Difficulty Paying for Meds: No Currently Unemployed: No Education: Associate Degree Difficulty w/ Childcare or Family Care: No Living arrangements: with family Additional living arrangements comments: Spiritual care concerns: No Meds Home Medications and Allergies Home Medications ?Medication ?Instructions ?Recorded ?Confirmed ?Type amlodipine 10 mg tablet 10 mg PO DAILY 07/28/19 11/24/24 History carvedilol 25 mg tablet 25 mg PO Q12H 07/28/19 11/24/24 History tacrolimus 1 mg capsule, 1 mg PO Q12H 08/11/19 11/24/24 History immediate-release triamcinolone acetonide 55 mcg 1 spray intranasal DAILY PRN sinus 08/11/19 11/24/24 History nasal spray aerosol (Nasacort) symptoms loratadine 10 mg tablet (Claritin) 10 mg PO DAILY 04/17/21 11/24/24 History albuterol sulfate 90 mcg/actuation 2 puff inhalation Q4-6H PRN 08/18/21 11/24/24 Rx aerosol inhaler (ProAir HFA) shortness of breath or wheezing #8.5 grams cyclobenzaprine 10 mg tablet 10 mg PO TID PRN muscle spasm #180 05/25/22 11/24/24 Rx tabs doxazosin 8 mg tablet 8 mg PO DAILY 04/16/24 11/24/24 History magnesium oxide 400 mg PO DAILY 06/05/24 11/24/24 History losartan 25 mg tablet See Rx Instructions .Route 09/21/24 11/24/24 Rx .COMPLEX #100 tabs metformin 500 mg tablet 1,000 mg PO BID 11/04/24 11/24/24 History cyclobenzaprine 5 mg tablet 5 mg PO HS #30 tabs 11/20/24 11/24/24 Rx oxycodone 5 mg tablet 5 mg PO Q4H PRN pain #32 tabs 11/20/24 11/24/24 Rx Allergies Allergy/AdvReac Type Severity Reaction Status Date / Time Penicillins Allergy Unknown UNKNOWN Verified 11/20/24 06:58 ibuprofen AdvReac Other/avoid Verified 11/20/24 06:58 s CEPHALEXIN MONOHYDRATE AdvReac Unknown GI DISTRESS Uncoded 11/20/24 06:58 Vital Signs Vital Signs - 24 hr 11/23/24 12:09 11/23/24 17:34 11/23/24 18:35 Temperature 97.7 F 98.2 F Pulse Rate 93 91 98 Respiratory Rate 15 18 14 Blood Pressure 139/78 160/92 H 165/83 H Pulse Oximetry 99 99 98 Oxygen Delivery Room Air 11/23/24 19:50 11/23/24 21:00 11/24/24 00:00 Temperature Pulse Rate 108 H 91 Respiratory Rate 15 16 Blood Pressure 160/79 H 167/91 H Pulse Oximetry 100 97 97 Oxygen Delivery Room Air 11/24/24 01:00 11/24/24 02:00 11/24/24 06:35 Temperature 97.3 F L Pulse Rate 79 81 87 Respiratory Rate 16 18 18 Blood Pressure 165/82 H 135/63 140/64 Pulse Oximetry 97 96 97 Oxygen Delivery 11/24/24 09:06 11/24/24 09:06 11/24/24 09:08 Temperature Pulse Rate 82 Respiratory Rate Blood Pressure Pulse Oximetry 96 Oxygen Delivery Room Air Room Air Exam Const: General: no acute distress HENMT: Mouth: Yes moist mucous membranes Eyes: General: appearance normal, both eyes and all related structures Pupils: Equal, round and reactive pupils present Neck: Other: Anterior Neck swelling Resp: Effort & Inspection: normal respiratory effort Auscultation: clear to auscultation bilaterally Cardio: Rate: regular rate Rhythm: regular rhythm GI: GI Palp: Yes Soft to palpation Auscultation: normal bowel sounds Skin: General skin exam: normal color and no rashes or lesions noted Neuro: General: gait normal Speech: normal speech Sensory Exam: normal sensation Extrem: General: normal to inspection Psych: Mental Status: mental status grossly normal Affect: normal affect H&P: Results Labs Labs: Short CBC 11/23/24 Range/Units 18:44 WBC 7.1 (4.5-10.0) K/mm3 Hgb 14.2 (14.0-18.0) g/dL Hct 43.0 (42.0-52.0) % Plt Count 81 L (150-375) k/mm3 BMP 11/23/24 18:44 Sodium 140 Potassium 4.1 Chloride 102 Carbon Dioxide 22 BUN 26 H Creatinine 1.17 Glucose 132 H Calcium 9.0 Liver Function 11/23/24 Range/Units 18:44 Total Bilirubin 1.5 H (0.2-1.3) mg/dL AST 22 (17-59) U/L ALT 25 (6-50) U/L Alkaline Phosphatase 65 (38-126) U/L Albumin 4.1 (3.5-5.1) g/dL Imaging CT scan - head: Radiologist's impression: CT soft tissue neck w con Ordering provider: Varun Dunn MD History: 69 years gentleman who presents to the emergency department with difficulty swallowing after anterior cervical spine fusion 3 days earlier. Comparison: None. Technique: CT soft tissues neck was performed with contrast. The dose-length product was 545.60 mGy-cm. Findings: Postoperative change is identified within the area of clinical concern, as one might expect after surgical intervention. Punctate foci of air as well as soft tissue swelling are noted. No rim-enhancing fluid collection is appreciated. At the level of the thyroid cartilage, to the left of midline is a 2.8 cm circumlinear focus of increased attenuation, likely related to patient's recent intervention. Fixation hardware is noted. THORACIC INLET/VISUALIZED UPPER CHEST: Unremarkable. SKELETAL: As above. IMPRESSION: Perioperative appearance of the neck on postoperative day 3 after anterior approach for cervical spine fusion, as detailed above. Assessment and Plan Assessment and plan (1) Dysphagia: Code(s): R13.10 - Dysphagia, unspecified Status: Acute Assessment and Plan: Patient post-op day 3 of C3-4, C4-C5 ACDF it was requested patient stay overnight for observation due to high risk of bleeding secondary thrombocytopenia but patient was adamant about returning home patient presents today with difficulty swallowing and anterior neck swelling. * CT Neck:Perioperative appearance of the neck on postoperative day 3 after anterior approach for cervical spine fusion * Neurosurgery consulted Dr Be * Some concern for hematoma * Dexamethasone q.6 * PPI b.i.d. * NPO * Failed Modified barium swallow * Exploratory surgery tomorrow with possible evacuation of hematoma present * To units of platelets prior to surgery due to thrombocytopenia (2) Thrombocytopenia, unspecified: Code(s): D69.6 - Thrombocytopenia, unspecified Status: Acute Assessment and Plan: Patient with history of liver transplant chronic history of thrombocytopenia * PLT POA 70>81 * Plan to transfuse 2 units platelets prior to surgery (3) Essential (primary) hypertension: Code(s): I10 - Essential (primary) hypertension Status: Acute Assessment and Plan: * Patient NPO for surgery tomorrow dysphagia * Will continue to hold his amlodipine carvedilol and losartan * Added hydralazine IV push for systolic under 160 (4) Type 2 diabetes mellitus without complications: Qualifiers: Diabetes mellitus terminal operator insulin use: without mcfp use Qualified Code(s): E11.9 - Type 2 diabetes mellitus without complications Code(s): E11.9 - Type 2 diabetes mellitus without complications Status: Acute Assessment and Plan: * Accu-Cheks a.cGeronimo HS * sliding scale insulin * hold oral diabetic medications * Watch for hypoglycemia/hypoglycemic protocol ordered Plan Code status: Full code per patient DVT prophylaxis: SCD's Stress ulcer prophylaxis: Protonix 40 BID PT/OT notes: Ambulatory Disposition: Patient continues admission for dysphagia and concern for possible hematoma post cervical surgery plan for surgery in the a.m. and will evacuate hematoma of present, patient will need to be monitored closely due to thrombocytopenia and risk of bleeding. Quality VTE Prophylaxis VTE prophylaxis: mechanical ordered -Patient's previous records reviewed on admission -ER notes reviewed in detail on admission -discussed all findings and current treatment plan with patient/Family/POA -Consultations reviewed for recommendations -Patient's disposition for safe discharge discussed with high risk case manager Dictation performed by [employer] direct speech recognition software, therefore ground intelligence officer variants and typographical errors may occur. Hospitalist MIPS Advance Care Plan I have confirmed that the patient's Advanced Care Plan is present, code status is documented, or surrogate decision maker is listed in patient medical record.: Yes Medication Reconciliation I have utilized all available resources to obtain, update and review the patients current medications (includes all prescriptions, OTC, herbals, cannabis, and nutritional supplements).: Yes The patient is not eligible for med reconciliation; the patient is in a emergent medical situation where delaying treatment would jeopardize the patients hea lth.: No
--- NOTE | 2024-11-24 13:35 | PC.NURSE ---
Patient is requesting his albuterol. RN spoke with hospitalist Susanna Cooper and was able to obtain order to for albuterol (see MAR). RN called respiratory and spoke with Carley and informed her patient is requesting PRN albuterol treatment. Carley stated she will be over shortly.
--- NOTE | 2024-11-24 13:40 | WPDNEUROSGCN ---
Assessment and Plan Assessment and plan (1) Status post cervical spinal fusion: Code(s): Z98.1 - Arthrodesis status Status: Acute (2) Dysphagia: Code(s): R13.10 - Dysphagia, unspecified Status: Acute Plan Melchor is a 69-year-old gentleman status post cervical fusion with difficulty swallowing and swollen neck underneath his incision. on my order speech therapy was consulted to see the patient. He is apparently failed a swallow study. We will therefore likely explore the wound to remove hematoma or any other offensive masses that may be causing difficulty with the esophagus and swallowing. Dr. Be is his surgeon and will be arranging this. Consult date: 11/24/24 HPI: Melchor Harrell is a 69 year old male Who underwent a C3-4 and C4-5 ACDF on 11/20/2024. He has a history of thrombocytopenia. He did well after the surgery. During the surgery the drain was inadvertently removed. The wound was then re-explored and a new drain was not placed. The patient went to the floor postoperatively and was discharged that day at the patient's insistence even though he was advised to stay longer. Once at home, perhaps within a day he started to develop difficulty swallowing and was unable to eat over the weekend and finally presented to the emergency room at [facility] last night with these complaints. He has not had any issue breathing or speaking. He has not had any new bowel or bladder difficulty or issues in his upper or lower extremities. Original operation was performed for myelopathy. Review of Systems Review of Systems: The patient denies shortness of breath, cough, fever, chills, nausea, vomiting, weight loss, weight gain, chest pain, dysuria. He has neck pain and difficulty swallowing as described above. [facility] Past Medical History Medical History Seizures Chronic headaches Diabetes Asthma Allergies Hepatitis C antibody test negative (02/23/12) Surgical History Surgical History H/O inguinal hernia repair H/O kyphoplasty Hx of carpal tunnel repair Bilateral - January and February 2023 Liver transplant recipient (~2018) Family History Family History Grandparent Diabetes mellitus Acute myocardial infarction Cerebrovascular accident Mother Family history of malignant neoplasm, Onset Age: 41 Father Hypertension Other Family history of alcoholism Family history of blood dyscrasia Social History Social History Smoking packs per day: 2 Smoking cigarettes per day: 40.0 Years smoked: 12 Smoking pack-years: 24.00 Smoking status: Former smoker Tobacco type: cigarettes Smoking end date: 12/15/84 Alcohol intake: never Substance use: never Substance use type: does not use Do You Feel Safe in your Home?: Yes Lack of Transportation: No Lack of Food: Never True Current Housing: I Have Housing Concerned About Future Housing: No Difficulty Paying Gas/Electric Bills: No Difficulty Paying for Meds: No Currently Unemployed: No Education: Associate Degree Difficulty w/ Childcare or Family Care: No Living arrangements: with family Additional living arrangements comments: Spiritual care concerns: No Meds Home Medications and Allergies Home Medications ?Medication ?Instructions ?Recorded ?Confirmed ?Type amlodipine 10 mg tablet 10 mg PO DAILY 07/28/19 11/24/24 History carvedilol 25 mg tablet 25 mg PO Q12H 07/28/19 11/24/24 History tacrolimus 1 mg capsule, 1 mg PO Q12H 08/11/19 11/24/24 History immediate-release triamcinolone acetonide 55 mcg 1 spray intranasal DAILY PRN sinus 08/11/19 11/24/24 History nasal spray aerosol (Nasacort) symptoms loratadine 10 mg tablet (Claritin) 10 mg PO DAILY 04/17/21 11/24/24 History albuterol sulfate 90 mcg/actuation 2 puff inhalation Q4-6H PRN 08/18/21 11/24/24 Rx aerosol inhaler (ProAir HFA) shortness of breath or wheezing #8.5 grams cyclobenzaprine 10 mg tablet 10 mg PO TID PRN muscle spasm #180 05/25/22 11/24/24 Rx tabs doxazosin 8 mg tablet 8 mg PO DAILY 04/16/24 11/24/24 History magnesium oxide 400 mg PO DAILY 06/05/24 11/24/24 History losartan 25 mg tablet See Rx Instructions .Route 09/21/24 11/24/24 Rx .COMPLEX #100 tabs metformin 500 mg tablet 1,000 mg PO BID 11/04/24 11/24/24 History cyclobenzaprine 5 mg tablet 5 mg PO HS #30 tabs 11/20/24 11/24/24 Rx oxycodone 5 mg tablet 5 mg PO Q4H PRN pain #32 tabs 11/20/24 11/24/24 Rx Allergies Allergy/AdvReac Type Severity Reaction Status Date / Time Penicillins Allergy Unknown UNKNOWN Verified 11/20/24 06:58 ibuprofen AdvReac Other/avoid Verified 11/20/24 06:58 s CEPHALEXIN MONOHYDRATE AdvReac Unknown GI DISTRESS Uncoded 11/20/24 06:58 Vital Signs Vital Signs - 24 hr 11/23/24 17:34 11/23/24 18:35 11/23/24 19:50 Temperature 98.2 F Pulse Rate 91 98 Respiratory Rate 18 14 Blood Pressure 160/92 H 165/83 H Pulse Oximetry 99 98 100 Oxygen Delivery Room Air 11/23/24 21:00 11/24/24 00:00 11/24/24 01:00 Temperature Pulse Rate 108 H 91 79 Respiratory Rate 15 16 16 Blood Pressure 160/79 H 167/91 H 165/82 H Pulse Oximetry 97 97 97 Oxygen Delivery 11/24/24 02:00 11/24/24 06:35 11/24/24 09:06 Temperature 97.3 F L Pulse Rate 81 87 Respiratory Rate 18 18 Blood Pressure 135/63 140/64 Pulse Oximetry 96 97 Oxygen Delivery Room Air 11/24/24 09:06 11/24/24 09:08 11/24/24 12:00 Temperature Pulse Rate 82 82 Respiratory Rate Blood Pressure Pulse Oximetry 96 Oxygen Delivery Room Air Exam Narrative: patient is a normally developed, normal-appearing male sitting in his hospital bed in no acute distress. He is awake, alert, oriented, with good fund of knowledge, recall events and fluent speech. His face is symmetrical, tongue is midline, his pupils were equal reactive to light, his extraocular movements are intact without diplopia or nystagmus, his palate elevates symmetrically, he is good strength and sensation on both sides of the face, his hearing is grossly intact bilaterally, his shoulder shrug is symmetrical and strong. There is no drift, dysmetria or dyspraxia of the upper extremities. Skin turgor and color are normal. Abdomen is nondistended Breathing is nonlabored Regular rate and rhythm Strength appears to be normal the bilateral upper and lower extremities to direct confrontation. Sensation is intact to light touch in the upper and lower extremities. Gait, Station and transfers were not tested. Review of studies: Soft tissue CT of the cervical spine was personally reviewed by me. This demonstrates postoperative changes but no clear fluid collections trachea is midline. Results Labs 11/23/24 18:44 11/23/24 18:44 Labs: Short CBC 11/23/24 Range/Units 18:44 WBC 7.1 (4.5-10.0) K/mm3 Hgb 14.2 (14.0-18.0) g/dL Hct 43.0 (42.0-52.0) % Plt Count 81 L (150-375) k/mm3 BMP 11/23/24 18:44 Sodium 140 Potassium 4.1 Chloride 102 Carbon Dioxide 22 BUN 26 H Creatinine 1.17 Glucose 132 H Calcium 9.0 Liver Function 11/23/24 Range/Units 18:44 Total Bilirubin 1.5 H (0.2-1.3) mg/dL AST 22 (17-59) U/L ALT 25 (6-50) U/L Alkaline Phosphatase 65 (38-126) U/L Albumin 4.1 (3.5-5.1) g/dL
[2024-11-24] MEDS: ALBUTEROL SULFATE (*SP) AEROSOL 1 PUFF 2 PUFF INHALATION (13:48)
[2024-11-24 21:33] LABS: Glucose Point of Care 196 mg/dl (65-105)
[2024-11-25] VITALS (25 sets, daily range): BP systolic 124–192; BP diastolic 65–93; PULSE 56–78; RESP 12–20; TEMP 36.1–36.9; O2SAT 97–100; BMI 26.4
[2024-11-25] MEDS: ALBUTEROL SULFATE (*SP) AEROSOL 1 PUFF 2 PUFF INHALATION ×3 (02:40→21:36)
[2024-11-25] MEDS: SODIUM CHLORIDE 0.9% IV 250 ML 30 ML IV CONT (04:35)
[2024-11-25 06:14] LABS: Hemoglobin 12.7 g/dL (14.0-18.0); Immature Platelet Fraction Pct 3.2 % (0.9-11.2); Mean Corpuscular HGB Conc 33.4 g/dl (32-36); Mean Corpuscular Hemoglobin 30.8 pg (26-34); Mean Corpuscular Volume 92.2 fl (80-100); Mean Platelet Volume 11.1 fl (7.4-10.4); Platelet Count Result 104 k/mm3 (150-375); Red Blood Count 4.12 M/mm3 (4.6-6.20); Red Cell Distribution Width 12.1 % (11.5-14.5); White Blood Count 4.8 K/mm3 (4.5-10.0)
[2024-11-25] MEDS: dexAMETHasone SOD PHOS INJ 4 MG/ML VIAL IV PUSH ×4 (06:15→23:22)
[2024-11-25 06:25] LABS: Alanine Aminotransferase 19 U/L (6-50); Albumin Level 3.4 g/dL (3.5-5.1); Alkaline Phosphatase 58 U/L (38-126); Anion Gap 12 mmol/L (4-12); Aspartate Amino Transferase 17 U/L (17-59); Bilirubin,Total 0.8 mg/dL (0.2-1.3); Blood Urea Nitrogen 29 mg/dL (9-20); Calcium 8.7 mg/dL (8.4-10.2); Carbon Dioxide 20 mmol/L (22-30); Chloride 108 mmol/L (98-107); Estimated CRCL calculation 70 ml/min; Estimated Glomerular Filt Rate > 60; Glucose 190 mg/dL (65-110); Magnesium 1.8 mg/dL (1.6-2.3); Sodium 140 mmol/L (137-145)
--- NOTE | 2024-11-25 06:44 | P.PNAN_ITS ---
Anes - Initial Pre Proc Eval Procedure: Operation Date: 11/25/24 07:30 Proposed Procedures p Anterior Cervical Neck Exploration, Evacuation Hematoma - Sylvain Be MD Date/Time: 11/25/24 06:44 Surgeon: Kitty Sanders DO Pre Op Diagnosis: Postop swelling; Dysphagia Patient Data Age: 69 Gender: M Height: 1.83 m Weight: 88.4 kg Last Vital Signs Temp 36.6 C 11/25/24 05:49 Pulse 59 L 11/25/24 05:49 Resp 18 11/25/24 05:49 BP 167/76 H 11/25/24 05:49 Pulse Ox 100 11/25/24 05:49 O2 Del Method Room Air 11/24/24 20:00 Allergies Allergy/AdvReac Type Severity Reaction Status Date / Time Penicillins Allergy Unknown UNKNOWN Verified 11/20/24 06:58 ibuprofen AdvReac Other/avoid Verified 11/20/24 06:58 s CEPHALEXIN MONOHYDRATE AdvReac Unknown GI DISTRESS Uncoded 11/20/24 06:58 Home Medications ?Medication ?Instructions ?Recorded ?Confirmed ?Type amlodipine 10 mg tablet 10 mg PO DAILY 07/28/19 11/24/24 History carvedilol 25 mg tablet 25 mg PO Q12H 07/28/19 11/24/24 History tacrolimus 1 mg capsule, 1 mg PO Q12H 08/11/19 11/24/24 History immediate-release triamcinolone acetonide 55 mcg 1 spray intranasal DAILY PRN sinus 08/11/19 11/24/24 History nasal spray aerosol (Nasacort) symptoms loratadine 10 mg tablet (Claritin) 10 mg PO DAILY 04/17/21 11/24/24 History albuterol sulfate 90 mcg/actuation 2 puff inhalation Q4-6H PRN 08/18/21 11/24/24 Rx aerosol inhaler (ProAir HFA) shortness of breath or wheezing #8.5 grams cyclobenzaprine 10 mg tablet 10 mg PO TID PRN muscle spasm #180 05/25/22 11/24/24 Rx tabs doxazosin 8 mg tablet 8 mg PO DAILY 04/16/24 11/24/24 History magnesium oxide 400 mg PO DAILY 06/05/24 11/24/24 History losartan 25 mg tablet See Rx Instructions .Route 09/21/24 11/24/24 Rx .COMPLEX #100 tabs metformin 500 mg tablet 1,000 mg PO BID 11/04/24 11/24/24 History cyclobenzaprine 5 mg tablet 5 mg PO HS #30 tabs 11/20/24 11/24/24 Rx oxycodone 5 mg tablet 5 mg PO Q4H PRN pain #32 tabs 11/20/24 11/24/24 Rx Laboratory Tests 11/24/24 11/24/24 11/25/24 15:29 21:10 05:34 WBC 4.8 K/mm3 (4.5-10.0) RBC 4.12 L M/mm3 (4.6-6.20) Hgb 12.7 L g/dL (14.0-18.0) Hct 38.0 L % (42.0-52.0) MCV 92.2 fl (80-100) MCH 30.8 pg (26-34) MCHC 33.4 g/dl (32-36) RDW 12.1 % (11.5-14.5) Plt Count 104 L k/mm3 (150-375) MPV 11.1 H fl (7.4-10.4) % Immature Plt Fraction 3.2 % (0.9-11.2) Sodium 140 mmol/L (137-145) Potassium 4.0 mmol/L (3.4-5.0) Chloride 108 H mmol/L (98-107) Carbon Dioxide 20 L mmol/L (22-30) Anion Gap 12 mmol/L (4-12) BUN 29 H mg/dL (9-20) Creatinine 0.97 mg/dL (0.7-1.3) Estim Creat Clear Calc 70 ml/min Estimated GFR > 60 (59 - ) Glucose 190 H mg/dL (65-110) POC Capillary Glucose 196 H mg/dl (65-105) Calcium 8.7 mg/dL (8.4-10.2) Magnesium 1.8 mg/dL (1.6-2.3) Total Bilirubin 0.8 mg/dL (0.2-1.3) AST 17 U/L (17-59) ALT 19 U/L (6-50) Alkaline Phosphatase 58 U/L (38-126) Total Protein 6.0 L g/dL (6.3-8.2) Albumin 3.4 L g/dL (3.5-5.1) Blood Type A Positive Antibody Screen Negative Patient hx anesthesia problems: none Family hx anesthesia problems: none Results Review: All pre-operative results and documents have been reviewed as part of the pre- operative evaluation. [facility] Past Medical History Medical History Seizures Chronic headaches Diabetes Asthma Allergies Hepatitis C antibody test negative (02/23/12) Surgical History Surgical History H/O inguinal hernia repair H/O kyphoplasty Hx of carpal tunnel repair Bilateral - January and February 2023 Liver transplant recipient (~2017) Family History Family History Grandparent Diabetes mellitus Acute myocardial infarction Cerebrovascular accident Mother Family history of malignant neoplasm, Onset Age: 41 Father Hypertension Other Family history of alcoholism Family history of blood dyscrasia Social History Social History Smoking packs per day: 2 Smoking cigarettes per day: 40.0 Years smoked: 12 Smoking pack-years: 24.00 Smoking status: Former smoker Tobacco type: cigarettes Smoking end date: 12/15/84 Alcohol intake: never Substance use: never Substance use type: does not use Do You Feel Safe in your Home?: Yes Lack of Transportation: No Lack of Food: Never True Current Housing: I Have Housing Concerned About Future Housing: No Difficulty Paying Gas/Electric Bills: No Difficulty Paying for Meds: No Currently Unemployed: No Education: Associate Degree Difficulty w/ Childcare or Family Care: No Living arrangements: with family Additional living arrangements comments: Spiritual care concerns: No Anes - Eval Final PreProcedure Day of Procedure 11/25/24 06:44 Patient weight: overweight Heart: regular rate and rhythm Lungs: clear to auscultation Airway: Mallampati scale class II Neurological: alert and oriented Last oral intake: >/= 8 hours ASA classification: III Emergent: no Anesthetic plan: proceed Anesthesia type and monitoring: general ETT and standard monitoring Results Review: All pre-operative results and documents have been reviewed as part of the pre- operative evaluation. Informed Consent: The patient's anesthetic plan and its attendant risks and benefits were discussed with the patient/family/POA. Questions were solicited and answers provided to the satisfaction of the patient/family/POA.
--- NOTE | 2024-11-25 06:53 | WPDHPUPDATE1 ---
History and Physical Update Update Date/Time: 11/25/24 06:53 History and Physical has been reviewed, including an updated exam of the patient. There are NO changes in the patient's condition. Risks, benefits, and alternatives have been discussed and questions answered. Patient agrees to proceed with procedure. Mr. Harrell has returned due to difficulty swallowing. He has a swelling on his anterior neck and a CT scan concerning for possible hematoma. He was admitted yesterday and trialed on steroids. This improved his ability to swallow slightly, however he still failed a modified barium swallow test. As such, I offered him a neck exploration and evacuation of hematoma. I discussed the risks and benefits of this with the patient and that this could happen again despite best efforts to control bleeding secondary to his thrombocytopenia. I explained the first surgery I was very meticulous with hemostasis yet this event still occurred. I discussed with the hosptitalist team starting two units of platelets prior to surgery. He understands and wishes to proceed.
[2024-11-25] MEDS: LACTATED RINGERS 1,000 ML 30 ML IV CONT ×2 (06:55→08:30)
[2024-11-25] MEDS: ceFAZolin 2 GM/D5W 50 ML 2 GM/50 ML BAG IVPB ×2 (07:24→17:59)
[2024-11-25] MEDS: BUPIVACAINE/EPINEPHRINE 0.5% 50 ML VIAL 10 ML INFILTRATE (07:51)
--- NOTE | 2024-11-25 08:44 | P.OP_ITS ---
Procedure Note - Detailed Date of Procedure 11/25/24 Pre-op Diagnosis Postop swelling; Dysphagia Post-op Diagnosis Same Procedure Performed Anterior neck wound exploration Surgeon Sylvain Be MD Anesthesia General Indications Neck swelling and dysphagia Findings Clear serous with a slight white cloudy appearance no significant hematoma. Description of Procedure The patient was brought to the operating room intubated by Anesthesia all appropriate lines were placed patient was padded positioned appropriately. His head was placed on a gel roll and gel rolls placed underneath the shoulders. His neck was prepped with Betadine he was then draped in the usual sterile fashion. Final time-out was performed. I then opened the incision and immediately saw clear fluid drained out. Fluid appeared slightly cloudy in appearance there also specks of what I suspect were I factor. There was no significant bleeding noted. There is no significant hematoma noted. I placed finger retractors and until I could see the patient's plate and I used my finger to bluntly dissect and explore for any hematoma I did not identify any hematoma. I irrigated the wound and waited 3 minutes to evaluate for any additional bleeding. There was no additional bleeding identified. I again irrigated 1 full L my suspicion was that he may have had an allergic reaction to FloSeal as such I irrigated completely dried the wound and then I placed a 7 [place] flat drain tunneled out underneath the skin. I made particular attention to a monitor the drain exit site for any additional bleeding and bipolar any additional bleeding. The drain was placed over the plate the wound was closed in layers. The patient tolerated the procedure well and was turned over to Anesthesia for extubation. There were no complications during the revision surgery. Estimated Blood Loss 10 Urine Output 400 Complications No immediate complications Disposition PACU
[2024-11-25 08:45] LABS: Glucose Point of Care 159 mg/dl (65-105)
[2024-11-25] MEDS: hydrALAZINE HCL 20 MG/ML VIAL 10 MG IV PUSH (08:52)
--- NOTE | 2024-11-25 09:07 | P.PNIM_ITS ---
Progress Note: A&P Assessment and Plan (1) Dysphagia: Code(s): R13.10 - Dysphagia, unspecified Status: Acute Assessment and Plan: Patient post-op day 4 of C3-4, C4-C5 ACDF it was requested patient stay overnig ht for observation due to high risk of bleeding secondary thrombocytopenia but patient was adamant about returning home patient presents with difficulty swallowing and anterior neck swelling. * CT Neck:Perioperative appearance of the neck on postoperative day 3 after anterior approach for cervical spine fusion * Neurosurgery consulted Dr Be * Some concern for hematoma * Dexamethasone q.6 * PPI b.i.d. * NPO as failed modified baraium swallow * Failed Modified barium swallow * Exploratory surgery wtih evacuation of hematoma and drain placement * 2 units of platelets prior to surgery due to thrombocytopenia (2) Thrombocytopenia, unspecified: Code(s): D69.6 - Thrombocytopenia, unspecified Status: Acute Assessment and Plan: Patient with history of liver transplant chronic history of thrombocytopenia * PLT POA 70>81 * s/p transfuse 2 units platelets prior to surgery (3) Essential (primary) hypertension: Code(s): I10 - Essential (primary) hypertension Status: Acute Assessment and Plan: continue home medications. 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 discussed with speech therapy. plan for repeat Code status: Full code per patient DVT prophylaxis: SCD's Stress ulcer prophylaxis: Protonix 40 BID PT/OT notes: Ambulatory Disposition: await medical stability Subjective Date/time seen: 11/25/24 09:07 Interval history: patient seen in the recovery room. ambreen price. had evacuation of the hematoma, drain in place. denies any sob, chest pain Review of Systems Review of Systems: All systems reviewed & are unremarkable except as noted in HPI and below Exam Narrative: Const: General: no acute distress HENMT: Mouth: Yes moist mucous membranes Eyes: General: appearance normal, both eyes and all related structures Pupils: Equal, round and reactive pupils present Neck: Other: surgical incisions and dressing wtih drain in place with serosanguinous drain in the bulb Resp: Effort & Inspection: normal respiratory effort Auscultation: clear to auscultation bilaterally Cardio: Rate: regular rate Rhythm: regular rhythm GI: GI Palp: Yes Soft to palpation Auscultation: normal bowel sounds Skin: General skin exam: normal color and no rashes or lesions noted Neuro: General: gait normal Speech: normal speech Sensory Exam: normal sensation Extrem: General: normal to inspection Psych: Mental Status: mental status grossly normal Affect: normal affect Objective Data Vital Signs Vital Signs: Vital Signs - 24 hr 11/24/24 09:08 11/24/24 12:00 11/24/24 13:50 Temperature Pulse Rate 82 Respiratory Rate Blood Pressure Pulse Oximetry 96 97 Oxygen Delivery Room Air Room Air Oxygen Flow Rate 11/24/24 13:50 11/24/24 14:00 11/24/24 16:00 Temperature 97.8 F Pulse Rate 81 90 81 Respiratory Rate 20 18 Blood Pressure 166/78 H Pulse Oximetry 99 Oxygen Delivery Oxygen Flow Rate 11/24/24 20:00 11/24/24 20:00 11/24/24 21:37 Temperature 97.2 F L Pulse Rate 57 L 79 Respiratory Rate 20 Blood Pressure 164/75 H Pulse Oximetry 98 Oxygen Delivery Room Air Oxygen Flow Rate 11/25/24 00:00 11/25/24 02:40 11/25/24 04:00 Temperature Pulse Rate 67 70 63 Respiratory Rate 18 Blood Pressure Pulse Oximetry Oxygen Delivery Oxygen Flow Rate 11/25/24 04:26 11/25/24 04:43 11/25/24 04:55 Temperature 97 F L 98.2 F 97.0 F L Pulse Rate 72 65 72 Respiratory Rate 20 20 20 Blood Pressure 147/66 H 160/75 H 147/66 H Pulse Oximetry 98 98 98 Oxygen Delivery Oxygen Flow Rate 11/25/24 05:28 11/25/24 05:49 11/25/24 06:43 Temperature 97.9 F 97.9 F 98.5 F Pulse Rate 56 L 59 L 58 L Respiratory Rate 20 18 16 Blood Pressure 163/76 H 167/76 H 173/65 H Pulse Oximetry 100 100 100 Oxygen Delivery Room Air Oxygen Flow Rate 11/25/24 06:54 11/25/24 08:30 11/25/24 08:45 Temperature 97.7 F 97.4 F L Pulse Rate 67 68 62 Respiratory Rate 16 12 14 Blood Pressure 176/71 H 169/82 H 191/83 H Pulse Oximetry 100 100 100 Oxygen Delivery Room Air Simple Face Mask Simple Face Mask Oxygen Flow Rate 6 6 11/25/24 08:55 Temperature Pulse Rate Respiratory Rate Blood Pressure Pulse Oximetry Oxygen Delivery Room Air Oxygen Flow Rate Intake/Output Intake/Output: Intake & Output 11/22/24 11/23/24 11/24/24 11/25/24 23:59 23:59 23:59 23:59 Intake Total 1999 2554.2 901 Output Total 850 1400 Balance 1999 1704.2 -842 Meds/Results Medications: Active Medications Generic Name Dose Route Start Last Admin Trade Name Freq PRN Reason Stop Dose Admin Acetaminophen 650 mg 11/25/24 08:38 Acetaminophen 325 Mg Tablet PO Q6H PRN Mild Pain (1-3) Hydrocodone Bitart/Acetaminophen 1 tab 11/25/24 08:38 Hydrocodone/Acetaminophen (*Crx) 5-325 Mg Tablet PO Q4H PRN Mild Pain (1-3) Al Hydrox/Mg Hydrox/Simethicone 20 ml 11/25/24 08:33 Mag Hydrox/Al Hydrox/Simeth 30 Ml Udc PO Q4H PRN Indigestion/Heartburn Al Hydrox/Mg Hydrox/Simethicone 20 ml 11/25/24 08:38 Mag Hydrox/Al Hydrox/Simeth 30 Ml Udc PO Q4H PRN Indigestion/Heartburn Albuterol 2 puff 11/24/24 13:34 11/25/24 02:40 Albuterol Sulfate (*Sp) Aerosol 1 Puff INHALATION 2 puff Q6HRT PRN Administration Shortness Of Breath Bisacodyl 10 mg 11/25/24 08:33 Bisacodyl 10 Mg Suppository RECTAL DAILY PRN Constipation Cyclobenzaprine HCl 10 mg 11/25/24 08:38 Cyclobenzaprine Hcl 10 Mg Tablet PO TID PRN Muscle Spasms Dexamethasone Sodium Phosphate 4 mg 11/24/24 00:00 11/25/24 06:15 Dexamethasone Sod Phos Inj 4 Mg/Ml Vial IV PUSH 4 mg Q6HR ERNESTINE Administration Dextrose 12.5 gm 11/24/24 12:04 Dextrose 50% 25 Gm/50 Ml Syringe IV PUSH PRN PRN Hypoglycemia Protocol Docusate Sodium 100 mg 11/25/24 09:00 Docusate Sodium 100 Mg Capsule PO Q12HR ERNESTINE Glucagon 1 mg 11/24/24 12:04 Glucagon For Inj 1 Mg Vial IM PRN PRN Hypoglycemia Protocol Glucose 15 gm 11/24/24 12:04 Glucose Oral Gel 15 Gm Of Glucse In 37.5 Gm Tube PO PRN PRN Hypoglycemia Protocol Hydralazine HCl 20 mg 11/24/24 11:59 Hydralazine Hcl 20 Mg/Ml Vial IV PUSH Q6HR PRN Hypertension Lactated Ringer's 1,000 mls @ 125 mls/hr 11/23/24 20:45 11/24/24 20:23 Lr - Lactated Ringers Iv IV CONT 125 mls/hr .Q8H ERNESTINE Administration Sodium Chloride 250 mls @ 30 mls/hr 11/25/24 04:00 11/25/24 04:35 Normal Saline Iv IV CONT 30 mls/hr .Q8H20M ERNESTINE Administration Dextrose 1,000 mls @ 100 mls/hr 11/24/24 12:04 Dextrose 5% 1,000 Ml IVPB PRN PRN Hypoglycemia Protocol Cefazolin Sodium 2 gm in 50 mls @ 100 mls/hr 11/25/24 19:00 Ancef 2 Gm/D5w 50 Ml IVPB Q12H ERNESTINE Insulin Aspart 2 - 5 units 11/24/24 17:00 11/24/24 18:00 Insulin Aspart (*Bkc) 100 Units/Ml SUB-Q Not Given TIDWM [facility] Protocol Morphine Sulfate 2 mg 11/25/24 08:38 Morphine Sulfate (*Crx) 2 Mg/Ml Inj IV PUSH Q2H PRN Pain Rated 7-10 Ondansetron HCl 4 mg 11/23/24 21:29 Ondansetron Inj 4 Mg/2 Ml Vial IV PUSH Q4H PRN Nausea Ondansetron HCl 4 mg 11/25/24 08:38 Ondansetron Inj 4 Mg/2 Ml Vial IV PUSH Q8H PRN Nausea And Vomiting Pantoprazole Sodium 40 mg 11/23/24 21:00 11/24/24 20:23 Pantoprazole Sodium Iv 40 Mg Vial IV PUSH 40 mg Q12HR ERNESTINE Administration Senna/Docusate Sodium 1 tab 11/25/24 08:38 Senna/Docusate Sodium Tablet PO HS PRN Constipation Radiology Results: ITS Impressions Soft Tissue Neck CT 11/23/24 20:12 IMPRESSION: Perioperative appearance of the neck on postoperative day 3 after anterior appro ach for cervical spine fusion, as detailed above. Modified Barium Swallow 11/24/24 10:46 IMPRESSION: Recurrent laryngeal penetration and aspiration following the swallow which appears secondary to recent postoperative changes with prominent prevertebral soft tissue swelling anterior an instrumented C3-C5 anterior spinal fusion. Please correlate with speech pathologist findings and specific feeding recommendations. Labs Labs: Laboratory Results - last 24 hr 11/24/24 11/24/24 11/25/24 15:29 21:10 05:34 WBC 4.8 RBC 4.12 L Hgb 12.7 L Hct 38.0 L MCV 92.2 MCH 30.8 MCHC 33.4 RDW 12.1 Plt Count 104 L MPV 11.1 H % Immature Plt Fraction 3.2 Sodium 140 Potassium 4.0 Chloride 108 H Carbon Dioxide 20 L Anion Gap 12 BUN 29 H Creatinine 0.97 Estim Creat Clear Calc 70 Estimated GFR > 60 Glucose 190 H POC Capillary Glucose 196 H Calcium 8.7 Magnesium 1.8 Total Bilirubin 0.8 AST 17 ALT 19 Alkaline Phosphatase 58 Total Protein 6.0 L Albumin 3.4 L Blood Type A Positive Antibody Screen Negative 11/25/24 08:43 WBC RBC Hgb Hct MCV MCH MCHC RDW Plt Count MPV % Immature Plt Fraction Sodium Potassium Chloride Carbon Dioxide Anion Gap BUN Creatinine Estim Creat Clear Calc Estimated GFR Glucose POC Capillary Glucose 159 H Calcium Magnesium Total Bilirubin AST ALT Alkaline Phosphatase Total Protein Albumin Blood Type Antibody Screen
--- NOTE | 2024-11-25 10:05 | PC.NURSE ---
Patient returned from OR per bed.
[2024-11-25 11:48] LABS: Glucose Point of Care 172 mg/dl (65-105)
--- NOTE | 2024-11-25 12:30 | PC.NURSE ---
Patient to Xray per wheelchair.
[2024-11-25] MEDS: PANTOPRAZOLE SODIUM IV 40 MG VIAL IV PUSH ×2 (13:31→20:15)
[2024-11-25] MEDS: hydrALAZINE HCL 20 MG/ML VIAL IV PUSH (13:40)
--- NOTE | 2024-11-25 13:55 | PCSTNOTE ---
Please refer to the Modified Barium Swallow Evaluation in the EMR. The above pt was seen for a repeat modified barium swallow. Previous MBS was completed yesterday due to difficulty swallowing since he underwent surgery for a cervical fusion on 11/20. MBS yesterday revealed severe dysphagia. Aspiration occurred after the swallow of both liquids and puree. Today it was noted that his vocal quality was more clear versus gurgly/wet noted yesterday. Prior to any test trials on this date he was noted to be constantly throat clearing as if difficulty managing his own saliva. Pt was seated for a lateral view Pt was only given small 4-5 ml amounts of thin liquid barium and 1/2 tsp amount of pudding. Radiologist noted less swelling versus the marked swelling noted yesterday. The oral stages were normal. During the pharyngeal swallow, reduced laryngeal elevation was exhibited as evidenced by laryngeal penetration during the swallow. Reduced pharyngeal peristasis/contraction is exhibited as like the previous test yesterday, contents could not clear the pyriform sinus/upper esophageal region and were spilled over into the laryngeal vestibule and aspirated after the swallow. A cough reflex was exhibited but it did not clear all of the aspirate. Impression: severe dysphagia; aspiration occurred after the swallow of both liquids and puree. Reduced pharyngeal contraction/peristasis appears to be the cause. Osteophytes were noted on todays test at C5/6 with a questionable impact as well. Recommendation: tube feeding if appropriate so to not further decondition. Spoke with dietitian who recommends dobhoff tube feeding. ST could not speak with surgeon as he was in surgery re dysphagia therapy, but per our discussion yesterday, he stated no ST for now.
--- NOTE | 2024-11-25 14:26 | PC.NURSE ---
Patient is refusing a feeding tube (Dobbhoff) at this time. Patient states he wants to wait until tomorrow to see if he improved. Patients MBS was found to have recommendation of NPO. Discussed this with Dr. Moraes. All PO medications will be on hold. Dr. Moraes gave an order for MRI, see orders, and was OK with patient getting a feeding tube if OK with Neurosurgery. I spoke with Dr. Partida about the Dobbhoff and they are OK with it when patient is ready.
[2024-11-25 16:45] LABS: Glucose Point of Care 161 mg/dl (65-105)
[2024-11-25] MEDS: LACTATED RINGERS 1,000 ML 125 ML IV CONT ×3 (17:49→23:23)
[2024-11-25 20:53] LABS: Glucose Point of Care 180 mg/dl (65-105)
[2024-11-26] VITALS (13 sets, daily range): BP systolic 124–183; BP diastolic 74–90; PULSE 61–89; RESP 16–18; TEMP 36.1–37; O2SAT 95–100
[2024-11-26] MEDS: ceFAZolin 2 GM/D5W 50 ML 2 GM/50 ML BAG IVPB ×2 (05:15→18:17)
[2024-11-26] MEDS: dexAMETHasone SOD PHOS INJ 4 MG/ML VIAL IV PUSH ×3 (05:17→17:21)
[2024-11-26 06:23] LABS: Hematocrit 38.4 % (42.0-52.0); Hemoglobin 13.2 g/dL (14.0-18.0); Immature Platelet Fraction Pct 3.2 % (0.9-11.2); Mean Corpuscular HGB Conc 34.4 g/dl (32-36); Mean Corpuscular Hemoglobin 30.9 pg (26-34); Mean Corpuscular Volume 89.9 fl (80-100); Mean Platelet Volume 10.7 fl (7.4-10.4); Platelet Count Result 114 k/mm3 (150-375); Red Blood Count 4.27 M/mm3 (4.6-6.20); Red Cell Distribution Width 11.9 % (11.5-14.5); White Blood Count 4.5 K/mm3 (4.5-10.0)
[2024-11-26] MEDS: ALBUTEROL SULFATE (*SP) AEROSOL 1 PUFF 2 PUFF INHALATION (06:30)
[2024-11-26 06:47] LABS: Alanine Aminotransferase 21 U/L (6-50); Albumin Level 3.3 g/dL (3.5-5.1); Alkaline Phosphatase 59 U/L (38-126); Anion Gap 7 mmol/L (4-12); Aspartate Amino Transferase 24 U/L (17-59); Bilirubin,Total 0.7 mg/dL (0.2-1.3); Blood Urea Nitrogen 25 mg/dL (9-20); Calcium 8.8 mg/dL (8.4-10.2); Carbon Dioxide 26 mmol/L (22-30); Chloride 106 mmol/L (98-107); Estimated CRCL calculation 75 ml/min; Estimated Glomerular Filt Rate > 60; Glucose 193 mg/dL (65-110); Magnesium 1.8 mg/dL (1.6-2.3); Potassium 3.8 mmol/L (3.4-5.0); Sodium 139 mmol/L (137-145)
[2024-11-26] MEDS: PANTOPRAZOLE SODIUM IV 40 MG VIAL IV PUSH ×2 (08:27→21:15)
[2024-11-26 09:14] LABS: Glucose Point of Care 192 mg/dl (65-105)
[2024-11-26] MEDS: LACTATED RINGERS 1,000 ML 125 ML IV CONT ×2 (09:29→18:16)
[2024-11-26] MEDS: INSULIN ASPART (*BKC) 100 UNITS/ML SUB-Q (12:00)
[2024-11-26 12:04] LABS: Glucose Point of Care 201 mg/dl (65-105)
--- NOTE | 2024-11-26 13:42 | WPDANESPN ---
Anes - Prog Note Post-Op Date/Time: 11/26/24 13:42 Cardiovascular status: normal Respiratory status: normal Airway patency: baseline Mental status: baseline Post-Op hydration status: normal Vital Signs: Last Vital Signs Temp 97.5 F L 11/26/24 09:00 Pulse 65 11/26/24 12:05 Resp 16 11/26/24 09:00 BP 162/86 H 11/26/24 09:00 Pulse Ox 100 11/26/24 09:00 O2 Del Method Room Air 11/26/24 10:55 O2 Flow Rate 6 11/25/24 08:45 Pain Score (VAS): 0/10 I/O: Intake & Output 11/25/24 11/26/24 11/26/24 23:59 07:59 15:59 Intake Total 1145.9 1000 2.1 Output Total 25 Balance 1120.9 1000 2.1 Laboratory Tests 11/26/24 05:25 11/26/24 05:25 11/25/24 11/25/24 11/26/24 16:35 20:41 05:25 WBC 4.5 RBC 4.27 L Hgb 13.2 L Hct 38.4 L MCV 89.9 MCH 30.9 MCHC 34.4 RDW 11.9 Plt Count 114 L MPV 10.7 H % Immature Plt Fraction 3.2 Sodium 139 Potassium 3.8 Chloride 106 Carbon Dioxide 26 Anion Gap 7 BUN 25 H Creatinine 0.90 Estim Creat Clear Calc 75 Estimated GFR > 60 Glucose 193 H POC Capillary Glucose 161 H 180 H Calcium 8.8 Magnesium 1.8 Total Bilirubin 0.7 AST 24 ALT 21 Alkaline Phosphatase 59 Total Protein 6.0 L Albumin 3.3 L 11/26/24 11/26/24 08:47 11:51 WBC RBC Hgb Hct MCV MCH MCHC RDW Plt Count MPV % Immature Plt Fraction Sodium Potassium Chloride Carbon Dioxide Anion Gap BUN Creatinine Estim Creat Clear Calc Estimated GFR Glucose POC Capillary Glucose 192 H 201 H Calcium Magnesium Total Bilirubin AST ALT Alkaline Phosphatase Total Protein Albumin Post-procedural complaints: none Patient Feedback: Patient satisfied with anesthetic care.
--- NOTE | 2024-11-26 15:09 | P.PNNEUSUR_ITS ---
Progress Note: A&P Assessment and Plan (1) Status post cervical spinal fusion: Code(s): Z98.1 - Arthrodesis status Status: Acute (2) Meningioma: Code(s): D32.9 - Benign neoplasm of meninges, unspecified Status: Acute (3) Dysphagia: Code(s): R13.10 - Dysphagia, unspecified Status: Acute Plan Mr. Harrell is making nice progress after his wound exploration yesterday. His voice has returned to normal, and he notes improvement in his ability to swallow at least saliva since surgery. I have removed his drain as this has not been holding suction. I covered the exit site with Steri-Strips. I would like for speech therapy to work with him to do another swallow assessment determine whether we can start advancing his diet. I saw that an MRI brain was performed today, presumably for his dysphagia. This happened to show a planum meningioma measuring about 3 x 2.5 cm without surrounding cerebral edema. This is an incidental finding and not related to his dysphagia which is explained by his postsurgical seroma. I did review this with the patient and showed him an image from his MRI. He does not require any treatment for it at this time. Dr. Be will follow this as an outpatient with serial imaging. Subjective Date/time seen: 11/26/24 13:00 Interval history: He states that he is feeling much better today with respect to his ability to swallow saliva. He does not have any pain. He is ambulating to the bathroom independently. He states that his voice is better than it was prior to surgery as well. There has been some difficulty with the Hemovac which partially pulled out after a coughing fit. Nursing has been unable to effectively occluded the extruded holes, so the drain has not maintained suction. While we have continued to recommend feeding via nasogastric tube as he has been NPO for a week now, he has been refusing NG tube placement thus far. Review of Systems Review of Systems: All systems reviewed & are unremarkable except as noted in HPI and below Exam Narrative: AOx4 Incision c/d/i Drain partially pulled out with several holes exposed Moving arms and legs well Voice sounds strong Objective Data Vital Signs Vital Signs: Vital Signs - 24 hr 11/25/24 16:04 11/25/24 19:34 11/25/24 20:00 Temperature 98.1 F Pulse Rate 75 64 Respiratory Rate 17 Blood Pressure 178/83 H Pulse Oximetry 98 Oxygen Delivery Room Air 11/25/24 20:00 11/25/24 21:36 11/25/24 23:32 Temperature 97.6 F Pulse Rate 69 78 77 Respiratory Rate 18 16 Blood Pressure 124/66 Pulse Oximetry 97 Oxygen Delivery 11/26/24 00:00 11/26/24 03:34 11/26/24 04:00 Temperature 98.4 F Pulse Rate 69 62 74 Respiratory Rate 17 Blood Pressure 124/77 Pulse Oximetry 99 Oxygen Delivery 11/26/24 08:04 11/26/24 08:27 11/26/24 09:00 Temperature 97.5 F L Pulse Rate 65 89 Respiratory Rate 16 16 Blood Pressure 162/86 H Pulse Oximetry 100 100 Oxygen Delivery Room Air 11/26/24 10:55 11/26/24 12:05 11/26/24 13:42 Temperature 98.6 F Pulse Rate 65 66 Respiratory Rate 16 Blood Pressure 183/90 H Pulse Oximetry 95 Oxygen Delivery Room Air Intake/Output Intake/Output: Intake & Output 11/23/24 11/24/24 11/25/24 11/26/24 23:59 23:59 23:59 23:59 Intake Total 1999 2554.2 2846.9 1002.1 Output Total 1426 Balance 1999 1704.2 1420.9 1002.1 Meds/Results Medications: Active Medications Generic Name Dose Route Start Last Admin Trade Name Freq PRN Reason Stop Dose Admin Acetaminophen 650 mg 11/25/24 14:37 Acetaminophen 650 Mg Suppository RECTAL Q6H PRN Mild Pain (1-3) or Fever Hydrocodone Bitart/Acetaminophen 1 tab 11/25/24 08:38 Hydrocodone/Acetaminophen (*Crx) 5-325 Mg Tablet PO Q4H PRN Mild Pain (1-3) Al Hydrox/Mg Hydrox/Simethicone 20 ml 11/25/24 08:33 Mag Hydrox/Al Hydrox/Simeth 30 Ml Udc PO Q4H PRN Indigestion/Heartburn Albuterol 2 puff 11/24/24 13:34 11/26/24 06:30 Albuterol Sulfate (*Sp) Aerosol 1 Puff INHALATION 2 puff Q6HRT PRN Administration Shortness Of Breath Amlodipine Besylate 10 mg 11/25/24 10:00 11/25/24 17:50 Amlodipine Besylate 10 Mg Tablet PO Not Given DAILY ERNESTINE Bisacodyl 10 mg 11/25/24 08:33 Bisacodyl 10 Mg Suppository RECTAL DAILY PRN Constipation Carvedilol 25 mg 11/25/24 10:05 11/25/24 17:50 Carvedilol 25 Mg Tablet PO Not Given Q12HR ERNESTINE Cyclobenzaprine HCl 10 mg 11/25/24 09:56 Cyclobenzaprine Hcl 10 Mg Tablet PO TID PRN muscle spasm Dexamethasone Sodium Phosphate 4 mg 11/24/24 00:00 11/26/24 11:31 Dexamethasone Sod Phos Inj 4 Mg/Ml Vial IV PUSH 4 mg Q6HR ENRESTINE Administration Dextrose 12.5 gm 11/24/24 12:04 Dextrose 50% 25 Gm/50 Ml Syringe IV PUSH PRN PRN Hypoglycemia Protocol Docusate Sodium 100 mg 11/25/24 09:00 11/25/24 17:50 Docusate Sodium 100 Mg Capsule PO Not Given Q12HR [facility] Doxazosin Mesylate 8 mg 11/25/24 21:00 Doxazosin Mesylate 4 Mg Tablet PO QHS [facility] Fluticasone Propionate 2 spray 11/25/24 10:07 Fluticasone Propionate 0.05% Na Spr 16 Gm Btl (*Bkc) NASAL DAILY PRN sinus symptoms Glucagon 1 mg 11/24/24 12:04 Glucagon For Inj 1 Mg Vial IM PRN PRN Hypoglycemia Protocol Glucose 15 gm 11/24/24 12:04 Glucose Oral Gel 15 Gm Of Glucse In 37.5 Gm Tube PO PRN PRN Hypoglycemia Protocol Hydralazine HCl 20 mg 11/24/24 11:59 11/25/24 13:40 Hydralazine Hcl 20 Mg/Ml Vial IV PUSH 20 mg Q6HR PRN Administration Hypertension Lactated Ringer's 1,000 mls @ 125 mls/hr 11/23/24 20:45 11/26/24 10:20 Lr - Lactated Ringers Iv IV CONT 125 mls/hr .Q8H ERNESTINE Infusion Dextrose 1,000 mls @ 100 mls/hr 11/24/24 12:04 Dextrose 5% 1,000 Ml IVPB PRN PRN Hypoglycemia Protocol Cefazolin Sodium 2 gm in 50 mls @ 100 mls/hr 11/25/24 19:00 11/26/24 05:15 Ancef 2 Gm/D5w 50 Ml IVPB 100 mls/hr Q12H ERNESTINE Administration Insulin Aspart 2 - 5 units 11/24/24 17:00 11/26/24 12:00 Insulin Aspart (*Bkc) 100 Units/Ml SUB-Q 2 units TIDWM ERNESTINE Administration Protocol Loratadine 10 mg 11/25/24 21:00 Loratadine 10 Mg Tablet PO QHS ERNESTINE Losartan Potassium 25 mg 11/25/24 10:05 11/25/24 17:50 Losartan Potassium 25 Mg Tablet PO Not Given DAILY ERNESTINE Magnesium Oxide 400 mg 11/25/24 10:05 11/25/24 17:50 Magnesium Oxide 400 Mg Tablet PO Not Given DAILY ERNESTINE Morphine Sulfate 2 mg 11/25/24 08:38 Morphine Sulfate (*Crx) 2 Mg/Ml Inj IV PUSH Q2H PRN Pain Rated 7-10 Ondansetron HCl 4 mg 11/25/24 08:38 Ondansetron Inj 4 Mg/2 Ml Vial IV PUSH Q8H PRN Nausea And Vomiting Pantoprazole Sodium 40 mg 11/23/24 21:00 11/26/24 08:27 Pantoprazole Sodium Iv 40 Mg Vial IV PUSH 40 mg Q12HR [facility] Administration Senna/Docusate Sodium 1 tab 11/25/24 08:38 Senna/Docusate Sodium Tablet PO HS PRN Constipation Tacrolimus 1 mg 11/25/24 10:05 11/25/24 17:50 Tacrolimus 0.5 Mg Capsule PO Not Given Q12HR [facility] Radiology Results: ITS Impressions Soft Tissue Neck CT 11/23/24 20:12 IMPRESSION: Perioperative appearance of the neck on postoperative day 3 after anterior approach for cervical spine fusion, as detailed above. Modified Barium Swallow 11/25/24 14:03 IMPRESSION: There has been some improvement in the swallow but with persistent laryngeal penetration and aspiration following the swallow resulting from spillage of residual residue in the piriform sinus. Please correlate with speech pathologist findings and specific feeding recommendations. Brain MRI 11/26/24 10:29 IMPRESSION: 1. No evidence of acute infarct seen. 2. 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 Follow-up advised. 3. Susceptibility artifact in the aqueduct of [place] which may be hemorrhagic. Follow-up advised. Labs Labs: Laboratory Results - last 24 hr 11/25/24 11/25/24 11/26/24 16:35 20:41 05:25 WBC 4.5 RBC 4.27 L Hgb 13.2 L Hct 38.4 L MCV 89.9 MCH 30.9 MCHC 34.4 RDW 11.9 Plt Count 114 L MPV 10.7 H % Immature Plt Fraction 3.2 Sodium 139 Potassium 3.8 Chloride 106 Carbon Dioxide 26 Anion Gap 7 BUN 25 H Creatinine 0.90 Estim Creat Clear Calc 75 Estimated GFR > 60 Glucose 193 H POC Capillary Glucose 161 H 180 H Calcium 8.8 Magnesium 1.8 Total Bilirubin 0.7 AST 24 ALT 21 Alkaline Phosphatase 59 Total Protein 6.0 L Albumin 3.3 L 11/26/24 11/26/24 08:47 11:51 WBC RBC Hgb Hct MCV MCH MCHC RDW Plt Count MPV % Immature Plt Fraction Sodium Potassium Chloride Carbon Dioxide Anion Gap BUN Creatinine Estim Creat Clear Calc Estimated GFR Glucose POC Capillary Glucose 192 H 201 H Calcium Magnesium Total Bilirubin AST ALT Alkaline Phosphatase Total Protein Albumin
[2024-11-26 17:37] LABS: Glucose Point of Care 158 mg/dl (65-105)
--- NOTE | 2024-11-26 18:47 | P.PNIM_ITS ---
Progress Note: A&P Assessment and Plan (1) Dysphagia: Code(s): R13.10 - Dysphagia, unspecified Status: Acute Assessment and Plan: Patient post-op day 4 of C3-4, C4-C5 ACDF it was requested patient stay overnig ht for observation due to high risk of bleeding secondary thrombocytopenia but patient was adamant about returning home patient presents with difficulty swallowing and anterior neck swelling. * CT Neck:Perioperative appearance of the neck on postoperative day 3 after anterior approach for cervical spine fusion * Neurosurgery following * Continue Dexamethasone q.6 * continue PPI b.i.d. * NPO as failed modified baraium swallow, speech following * 11/25/24-Exploratory surgery wtihout evacuation of hematoma and drain placement by neurosurgery * 11/25/24-2 units of platelets prior to surgery due to thrombocytopenia was given (2) Thrombocytopenia, unspecified: Code(s): D69.6 - Thrombocytopenia, unspecified Status: Acute Assessment and Plan: Patient with history of liver transplant chronic history of thrombocytopenia * Initial platelet count 70>81 * 11/25/24 s/p transfuse 2 units platelets prior to surgery * Plt count 114 today (3) Essential (primary) hypertension: Code(s): I10 - Essential (primary) hypertension Status: Acute Assessment and Plan: continue home medications. hydralazine prn (4) Type 2 diabetes mellitus without complications: Qualifiers: Diabetes mellitus long term care pharmacist insulin use: without alf use Qualified Code(s): E11.9 - Type 2 diabetes mellitus without complications Code(s): E11.9 - Type 2 diabetes mellitus without complications Status: Acute Assessment and Plan: * Accu-Cheks q6h * BG ranging 158-201 * Last Hgb A1C was 6.4 on 08/19/24 * low dose sliding scale insulin for NPO patients started * hold oral diabetic medications * hypoglycemic protocol in place * Currently NPO Time Spent With Patient Time with patient: 15 - 25 minutes Subjective Date/time seen: 11/26/24 18:47 Interval history: Patient denies any nausea,vomiting, chest pain, or shortness of breath. He states his swallowing feels much better today and feels that the swelling has improved. He is requesting something to eat and drink. His drain site on his neck looks like it may be dislodged a bit. He is hoping that neurosurgery will be able to pull the drain today. Labs reviewed. Review of Systems Review of Systems: All systems reviewed & are unremarkable except as noted in HPI and below Exam Narrative: General: no acute distress Eyes: PERRLA, sclera clear Neck: surgical incision with dressing and drain that appears to be a bit dislodged with minimal output. Respiratory: Lungs clear to auscultation. Currently on room air. No adventitious lung sounds. Cardiac: RRR, no murmur, gallops, or friction rubs noted GI: abdomen soft, normoactive bowel sounds : voiding without difficulty Neuro: alert and oriented x4, no deficits Psych: interactive, normal affect Objective Data Vital Signs Vital Signs: Vital Signs - 24 hr 11/25/24 19:34 11/25/24 20:00 11/25/24 20:00 Temperature 98.1 F Pulse Rate 64 69 Respiratory Rate 17 Blood Pressure 178/83 H Pulse Oximetry 98 Oxygen Delivery Room Air 11/25/24 21:36 11/25/24 23:32 11/26/24 00:00 Temperature 97.6 F Pulse Rate 78 77 69 Respiratory Rate 18 16 Blood Pressure 124/66 Pulse Oximetry 97 Oxygen Delivery 11/26/24 03:34 11/26/24 04:00 11/26/24 08:04 Temperature 98.4 F Pulse Rate 62 74 65 Respiratory Rate 17 Blood Pressure 124/77 Pulse Oximetry 99 Oxygen Delivery 11/26/24 08:27 11/26/24 09:00 11/26/24 10:55 Temperature 97.5 F L Pulse Rate 89 Respiratory Rate 16 16 Blood Pressure 162/86 H Pulse Oximetry 100 100 Oxygen Delivery Room Air Room Air 11/26/24 12:05 11/26/24 13:42 11/26/24 16:04 Temperature 98.6 F Pulse Rate 65 66 61 Respiratory Rate 16 Blood Pressure 183/90 H Pulse Oximetry 95 Oxygen Delivery Intake/Output Intake/Output: Intake & Output 11/23/24 11/24/24 11/25/24 11/26/24 23:59 23:59 23:59 23:59 Intake Total 1999 2554.2 2846.9 2045.9 Output Total 1426 Balance 1999 1704.2 1420.9 2045.9 Meds/Results Medications: Active Medications Generic Name Dose Route Start Last Admin Trade Name Freq PRN Reason Stop Dose Admin Acetaminophen 650 mg 11/25/24 14:37 Acetaminophen 650 Mg Suppository RECTAL Q6H PRN Mild Pain (1-3) or Fever Hydrocodone Bitart/Acetaminophen 1 tab 11/25/24 08:38 Hydrocodone/Acetaminophen (*Crx) 5-325 Mg Tablet PO Q4H PRN Mild Pain (1-3) Al Hydrox/Mg Hydrox/Simethicone 20 ml 11/25/24 08:33 Mag Hydrox/Al Hydrox/Simeth 30 Ml Udc PO Q4H PRN Indigestion/Heartburn Albuterol 2 puff 11/24/24 13:34 11/26/24 06:30 Albuterol Sulfate (*Sp) Aerosol 1 Puff INHALATION 2 puff Q6HRT PRN Administration Shortness Of Breath Amlodipine Besylate 10 mg 11/25/24 10:00 11/25/24 17:50 Amlodipine Besylate 10 Mg Tablet PO Not Given DAILY ERNESTINE Bisacodyl 10 mg 11/25/24 08:33 Bisacodyl 10 Mg Suppository RECTAL DAILY PRN Constipation Carvedilol 25 mg 11/25/24 10:05 11/25/24 17:50 Carvedilol 25 Mg Tablet PO Not Given Q12HR ERNESTINE Cyclobenzaprine HCl 10 mg 11/25/24 09:56 Cyclobenzaprine Hcl 10 Mg Tablet PO TID PRN muscle spasm Dexamethasone Sodium Phosphate 4 mg 11/24/24 00:00 11/26/24 17:21 Dexamethasone Sod Phos Inj 4 Mg/Ml Vial IV PUSH 4 mg Q6HR ERNESTINE Administration Dextrose 12.5 gm 11/24/24 12:04 Dextrose 50% 25 Gm/50 Ml Syringe IV PUSH PRN PRN Hypoglycemia Protocol Docusate Sodium 100 mg 11/25/24 09:00 11/25/24 17:50 Docusate Sodium 100 Mg Capsule PO Not Given Q12HR [facility] Doxazosin Mesylate 8 mg 11/25/24 21:00 Doxazosin Mesylate 4 Mg Tablet PO QHS [facility] Fluticasone Propionate 2 spray 11/25/24 10:07 Fluticasone Propionate 0.05% Na Spr 16 Gm Btl (*Bkc) NASAL DAILY PRN sinus symptoms Glucagon 1 mg 11/24/24 12:04 Glucagon For Inj 1 Mg Vial IM PRN PRN Hypoglycemia Protocol Glucose 15 gm 11/24/24 12:04 Glucose Oral Gel 15 Gm Of Glucse In 37.5 Gm Tube PO PRN PRN Hypoglycemia Protocol Hydralazine HCl 20 mg 11/24/24 11:59 11/25/24 13:40 Hydralazine Hcl 20 Mg/Ml Vial IV PUSH 20 mg Q6HR PRN Administration Hypertension Lactated Ringer's 1,000 mls @ 125 mls/hr 11/23/24 20:45 11/26/24 18:17 Lr - Lactated Ringers Iv IV CONT 0 mls/hr .Q8H ERNESTINE Infusion Dextrose 1,000 mls @ 100 mls/hr 11/24/24 12:04 Dextrose 5% 1,000 Ml IVPB PRN PRN Hypoglycemia Protocol Cefazolin Sodium 2 gm in 50 mls @ 100 mls/hr 11/25/24 19:00 11/26/24 18:17 Ancef 2 Gm/D5w 50 Ml IVPB 100 mls/hr Q12H ERNESTINE Administration Insulin Aspart 2 - 5 units 11/24/24 17:00 11/26/24 17:30 Insulin Aspart (*Bkc) 100 Units/Ml SUB-Q Not Given TIDWM [facility] Protocol Loratadine 10 mg 11/25/24 21:00 Loratadine 10 Mg Tablet PO QHS [facility] Losartan Potassium 25 mg 11/25/24 10:05 11/25/24 17:50 Losartan Potassium 25 Mg Tablet PO Not Given DAILY [facility] Magnesium Oxide 400 mg 11/25/24 10:05 11/25/24 17:50 Magnesium Oxide 400 Mg Tablet PO Not Given DAILY [facility] Morphine Sulfate 2 mg 11/25/24 08:38 Morphine Sulfate (*Crx) 2 Mg/Ml Inj IV PUSH Q2H PRN Pain Rated 7-10 Ondansetron HCl 4 mg 11/25/24 08:38 Ondansetron Inj 4 Mg/2 Ml Vial IV PUSH Q8H PRN Nausea And Vomiting Pantoprazole Sodium 40 mg 11/23/24 21:00 11/26/24 08:27 Pantoprazole Sodium Iv 40 Mg Vial IV PUSH 40 mg Q12HR [facility] Administration Senna/Docusate Sodium 1 tab 11/25/24 08:38 Senna/Docusate Sodium Tablet PO HS PRN Constipation Tacrolimus 1 mg 11/25/24 10:05 11/25/24 17:50 Tacrolimus 0.5 Mg Capsule PO Not Given Q12HR [facility] Radiology Results: ITS Impressions Soft Tissue Neck CT 11/23/24 20:12 IMPRESSION: Perioperative appearance of the neck on postoperative day 3 after anterior approach for cervical spine fusion, as detailed above. Modified Barium Swallow 11/25/24 14:03 IMPRESSION: There has been some improvement in the swallow but with persistent laryngeal penetration and aspiration following the swallow resulting from spillage of residual residue in the piriform sinus. Please correlate with speech pathologist findings and specific feeding recommendations. Brain MRI 11/26/24 10:29 IMPRESSION: 1. No evidence of acute infarct seen. 2. 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 Follow-up advised. 3. Susceptibility artifact in the aqueduct of [place] which may be hemorrhagic. Follow-up advised. Labs Labs: Laboratory Results - last 24 hr 11/25/24 11/26/24 11/26/24 20:41 05:25 08:47 WBC 4.5 RBC 4.27 L Hgb 13.2 L Hct 38.4 L MCV 89.9 MCH 30.9 MCHC 34.4 RDW 11.9 Plt Count 114 L MPV 10.7 H % Immature Plt Fraction 3.2 Sodium 139 Potassium 3.8 Chloride 106 Carbon Dioxide 26 Anion Gap 7 BUN 25 H Creatinine 0.90 Estim Creat Clear Calc 75 Estimated GFR > 60 Glucose 193 H POC Capillary Glucose 180 H 192 H Calcium 8.8 Magnesium 1.8 Total Bilirubin 0.7 AST 24 ALT 21 Alkaline Phosphatase 59 Total Protein 6.0 L Albumin 3.3 L 11/26/24 11/26/24 11:51 17:23 WBC RBC Hgb Hct MCV MCH MCHC RDW Plt Count MPV % Immature Plt Fraction Sodium Potassium Chloride Carbon Dioxide Anion Gap BUN Creatinine Estim Creat Clear Calc Estimated GFR Glucose POC Capillary Glucose 201 H 158 H Calcium Magnesium Total Bilirubin AST ALT Alkaline Phosphatase Total Protein Albumin Quality VTE Prophylaxis VTE prophylaxis: mechanical ordered
[2024-11-26 20:09] LABS: Glucose Point of Care 175 mg/dl (65-105)
[2024-11-26] MEDS: hydrALAZINE HCL 20 MG/ML VIAL IV PUSH (21:15)
[2024-11-27] VITALS (11 sets, daily range): BP systolic 154–180; BP diastolic 72–82; PULSE 56–84; RESP 16–20; TEMP 36.3–37.2; O2SAT 97–100
[2024-11-27 00:03] LABS: Glucose Point of Care 194 mg/dl (65-105)
[2024-11-27] MEDS: dexAMETHasone SOD PHOS INJ 4 MG/ML VIAL IV PUSH ×4 (00:33→17:55)
[2024-11-27 05:35] LABS: Glucose Point of Care 172 mg/dl (65-105)
[2024-11-27 05:53] LABS: Hematocrit 39.6 % (42.0-52.0); Hemoglobin 13.5 g/dL (14.0-18.0); Immature Platelet Fraction Pct 3.3 % (0.9-11.2); Mean Corpuscular HGB Conc 34.1 g/dl (32-36); Mean Corpuscular Hemoglobin 30.3 pg (26-34); Mean Platelet Volume 10.3 fl (7.4-10.4); Red Blood Count 4.45 M/mm3 (4.6-6.20); Red Cell Distribution Width 11.8 % (11.5-14.5); White Blood Count 4.6 K/mm3 (4.5-10.0)
[2024-11-27 05:56] LABS: Platelet Count Result 100 k/mm3 (150-375)
[2024-11-27 06:09] LABS: Alanine Aminotransferase 20 U/L (6-50); Albumin Level 3.2 g/dL (3.5-5.1); Alkaline Phosphatase 53 U/L (38-126); Anion Gap 8 mmol/L (4-12); Aspartate Amino Transferase 24 U/L (17-59); Bilirubin,Total 0.9 mg/dL (0.2-1.3); Blood Urea Nitrogen 22 mg/dL (9-20); Calcium 8.7 mg/dL (8.4-10.2); Carbon Dioxide 27 mmol/L (22-30); Chloride 101 mmol/L (98-107); Estimated CRCL calculation 84 ml/min; Estimated Glomerular Filt Rate > 60; Glucose 168 mg/dL (65-110); Magnesium 1.7 mg/dL (1.6-2.3); Potassium 3.4 mmol/L (3.4-5.0); Sodium 136 mmol/L (137-145)
[2024-11-27] MEDS: ceFAZolin 2 GM/D5W 50 ML 2 GM/50 ML BAG IVPB (06:58)
[2024-11-27] MEDS: LACTATED RINGERS 1,000 ML 125 ML IV CONT (06:59)
[2024-11-27 08:27] LABS: Glucose Point of Care 178 mg/dl (65-105)
[2024-11-27] MEDS: PANTOPRAZOLE SODIUM IV 40 MG VIAL IV PUSH ×2 (08:49→20:17)
--- NOTE | 2024-11-27 10:33 | P.PNNEUSUR_ITS ---
Subjective Date/time seen: 11/27/24 10:33 Interval history: The patient is doing well he feels that his swallowing and his voice have improved significantly after the 2nd surgery. He is able to swallow his own saliva and has no issues in regards to fullness in his neck. He is very hopeful that he is able to progress with speech therapy in starting some solid foods. He is scheduled to see speech therapy around 11 30 today. During his workup for speech difficulty he did have a brain MRI last night which indicated a likely meningioma in the parafalcine region in the frontal lobes. I did discuss this with him and explained that we would likely observe this and monitor this with a repeat MRI scan as an outpatient in 3 months. He is very hopeful to go home the next day or 2 if he is able to tolerate food. Otherwise we should likely continue the steroids while he is an inpatient and we can consider weaning this to a Medrol Dosepak upon discharge. Otherwise he is moving all his extremities well without any focal neurologic deficit or complaint. Objective Data Vital Signs Vital Signs: Vital Signs - 24 hr 11/26/24 10:55 11/26/24 12:05 11/26/24 13:42 Temperature 98.6 F Pulse Rate 65 66 Respiratory Rate 16 Blood Pressure 183/90 H Pulse Oximetry 95 Oxygen Delivery Room Air 11/26/24 16:04 11/26/24 18:54 11/26/24 19:48 Temperature 97.0 F L 98.1 F Pulse Rate 61 70 65 Respiratory Rate 18 17 Blood Pressure 150/88 H 183/76 H Pulse Oximetry 99 99 Oxygen Delivery 11/26/24 20:00 11/26/24 20:00 11/26/24 22:05 Temperature Pulse Rate 61 Respiratory Rate Blood Pressure 171/74 H Pulse Oximetry Oxygen Delivery Room Air 11/27/24 00:00 11/27/24 00:02 11/27/24 04:00 Temperature 97.8 F Pulse Rate 63 56 L 59 L Respiratory Rate 16 Blood Pressure 166/77 H Pulse Oximetry 98 Oxygen Delivery 11/27/24 05:28 Temperature 98.9 F Pulse Rate 64 Respiratory Rate 18 Blood Pressure 160/80 H Pulse Oximetry 98 Oxygen Delivery Intake/Output Intake/Output: Intake & Output 11/24/24 11/25/24 11/26/24 11/27/24 23:59 23:59 23:59 23:59 Intake Total 2554.2 2846.9 2095.9 997.9 Output Total 850 1426 500 Balance 1704.2 1420.9 2095.9 497.9 Meds/Results Medications: Active Medications Generic Name Dose Route Start Last Admin Trade Name Freq PRN Reason Stop Dose Admin Acetaminophen 650 mg 11/25/24 14:37 Acetaminophen 650 Mg Suppository RECTAL Q6H PRN Mild Pain (1-3) or Fever Hydrocodone Bitart/Acetaminophen 1 tab 11/25/24 08:38 Hydrocodone/Acetaminophen (*Crx) 5-325 Mg Tablet PO Q4H PRN Mild Pain (1-3) Al Hydrox/Mg Hydrox/Simethicone 20 ml 11/25/24 08:33 Mag Hydrox/Al Hydrox/Simeth 30 Ml Udc PO Q4H PRN Indigestion/Heartburn Albuterol 2 puff 11/24/24 13:34 11/26/24 06:30 Albuterol Sulfate (*Sp) Aerosol 1 Puff INHALATION 2 puff Q6HRT PRN Administration Shortness Of Breath Amlodipine Besylate 10 mg 11/25/24 10:00 11/25/24 17:50 Amlodipine Besylate 10 Mg Tablet PO Not Given DAILY COUNTS INCLUDE 234 BEDS AT THE [facility] Bisacodyl 10 mg 11/25/24 08:33 Bisacodyl 10 Mg Suppository RECTAL DAILY PRN Constipation Carvedilol 25 mg 11/25/24 10:05 11/25/24 17:50 Carvedilol 25 Mg Tablet PO Not Given Q12HR COUNTS INCLUDE 234 BEDS AT THE [facility] Cyclobenzaprine HCl 10 mg 11/25/24 09:56 Cyclobenzaprine Hcl 10 Mg Tablet PO TID PRN muscle spasm Dexamethasone Sodium Phosphate 4 mg 11/24/24 00:00 11/27/24 06:58 Dexamethasone Sod Phos Inj 4 Mg/Ml Vial IV PUSH 4 mg Q6HR ERNESTINE Administration Dextrose 12.5 gm 11/24/24 12:04 Dextrose 50% 25 Gm/50 Ml Syringe IV PUSH PRN PRN Hypoglycemia Protocol Docusate Sodium 100 mg 11/25/24 09:00 11/25/24 17:50 Docusate Sodium 100 Mg Capsule PO Not Given Q12HR COUNTS INCLUDE 234 BEDS AT THE [facility] Doxazosin Mesylate 8 mg 11/25/24 21:00 Doxazosin Mesylate 4 Mg Tablet PO QHS COUNTS INCLUDE 234 BEDS AT THE [facility] Fluticasone Propionate 2 spray 11/25/24 10:07 Fluticasone Propionate 0.05% Na Spr 16 Gm Btl (*Bkc) NASAL DAILY PRN sinus symptoms Glucagon 1 mg 11/24/24 12:04 Glucagon For Inj 1 Mg Vial IM PRN PRN Hypoglycemia Protocol Glucose 15 gm 11/24/24 12:04 Glucose Oral Gel 15 Gm Of Glucse In 37.5 Gm Tube PO PRN PRN Hypoglycemia Protocol Hydralazine HCl 20 mg 11/24/24 11:59 11/26/24 21:15 Hydralazine Hcl 20 Mg/Ml Vial IV PUSH 20 mg Q6HR PRN Administration Hypertension Lactated Ringer's 1,000 mls @ 125 mls/hr 11/23/24 20:45 11/27/24 06:59 Lr - Lactated Ringers Iv IV CONT 125 mls/hr .Q8H ERNESTINE Administration Dextrose 1,000 mls @ 100 mls/hr 11/24/24 12:04 Dextrose 5% 1,000 Ml IVPB PRN PRN Hypoglycemia Protocol Cefazolin Sodium 2 gm in 50 mls @ 100 mls/hr 11/25/24 19:00 11/27/24 06:58 Ancef 2 Gm/D5w 50 Ml IVPB 100 mls/hr Q12H ERNESTINE Administration Insulin Aspart 2 - 5 units 11/27/24 00:00 11/27/24 06:55 Insulin Aspart (*Bkc) 100 Units/Ml SUB-Q Not Given Q6HR ERNESTINE Protocol Loratadine 10 mg 11/25/24 21:00 Loratadine 10 Mg Tablet PO QHS COUNTS INCLUDE 234 BEDS AT [facility] Losartan Potassium 25 mg 11/25/24 10:05 11/25/24 17:50 Losartan Potassium 25 Mg Tablet PO Not Given DAILY COUNTS INCLUDE 234 BEDS AT [facility] Magnesium Oxide 400 mg 11/25/24 10:05 11/25/24 17:50 Magnesium Oxide 400 Mg Tablet PO Not Given DAILY COUNTS INCLUDE 234 BEDS AT [facility] Morphine Sulfate 2 mg 11/25/24 08:38 Morphine Sulfate (*Crx) 2 Mg/Ml Inj IV PUSH Q2H PRN Pain Rated 7-10 Ondansetron HCl 4 mg 11/25/24 08:38 Ondansetron Inj 4 Mg/2 Ml Vial IV PUSH Q8H PRN Nausea And Vomiting Pantoprazole Sodium 40 mg 11/23/24 21:00 11/27/24 08:49 Pantoprazole Sodium Iv 40 Mg Vial IV PUSH 40 mg Q12HR ERNESTINE Administration Senna/Docusate Sodium 1 tab 11/25/24 08:38 Senna/Docusate Sodium Tablet PO HS PRN Constipation Tacrolimus 1 mg 11/25/24 10:05 11/25/24 17:50 Tacrolimus 0.5 Mg Capsule PO Not Given Q12HR ERNESTINE Radiology Results: ITS Impressions Soft Tissue Neck CT 11/23/24 20:12 IMPRESSION: Perioperative appearance of the neck on postoperative day 3 after anterior approach for cervical spine fusion, as detailed above. Modified Barium Swallow 11/25/24 14:03 IMPRESSION: There has been some improvement in the swallow but with persistent laryngeal penetration and aspiration following the swallow resulting from spillage of residual residue in the piriform sinus. Please correlate with speech pathologist findings and specific feeding recommendations. Brain MRI 11/26/24 10:29 IMPRESSION: 1. No evidence of acute infarct seen. 2. 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 Follow-up advised. 3. Susceptibility artifact in the aqued[place] which may be hemorrhagic. Follow-up advised. Labs Labs: Laboratory Results - last 24 hr 11/26/24 11/26/24 11/26/24 11:51 17:23 19:46 WBC RBC Hgb Hct MCV MCH MCHC RDW Plt Count MPV % Immature Plt Fraction Sodium Potassium Chloride Carbon Dioxide Anion Gap BUN Creatinine Estim Creat Clear Calc Estimated GFR Glucose POC Capillary Glucose 201 H 158 H 175 H Calcium Magnesium Total Bilirubin AST ALT Alkaline Phosphatase Total Protein Albumin 11/27/24 11/27/24 11/27/24 00:00 05:10 05:20 WBC 4.6 RBC 4.45 L Hgb 13.5 L Hct 39.6 L MCV 89.0 MCH 30.3 MCHC 34.1 RDW 11.8 Plt Count 100 L MPV 10.3 % Immature Plt Fraction 3.3 Sodium 136 L Potassium 3.4 Chloride 101 Carbon Dioxide 27 Anion Gap 8 BUN 22 H Creatinine 0.79 Estim Creat Clear Calc 84 Estimated GFR > 60 Glucose 168 H POC Capillary Glucose 194 H 172 H Calcium 8.7 Magnesium 1.7 Total Bilirubin 0.9 AST 24 ALT 20 Alkaline Phosphatase 53 Total Protein 6.0 L Albumin 3.2 L 11/27/24 08:22 WBC RBC Hgb Hct MCV MCH MCHC RDW Plt Count MPV % Immature Plt Fraction Sodium Potassium Chloride Carbon Dioxide Anion Gap BUN Creatinine Estim Creat Clear Calc Estimated GFR Glucose POC Capillary Glucose 178 H Calcium Magnesium Total Bilirubin AST ALT Alkaline Phosphatase Total Protein Albumin
--- NOTE | 2024-11-27 12:51 | PCNFU ---
Nutrition Follow-Up Complete: Swallowing Difficulties as related to Dysphagia as evidenced by failed MBS 11/24 and 11/25. Goal: Meet estimated nutritional needs Patient has limited progress towards goal, We will continue current goal. Pt current nutrition is NPO. Nutrition recommendation: Glucerna 1.2 goal rate at 20 advance by 10 ml q 4 hours to goal rate of 70 ml/hr. Last recorded weight is 88.4 kg, no new weight to report. Bowel Motility: Last reported BM 11/25 Labs Reviewed:Glu 168, BUN 22, NA 136, Alb 3.2 Meds Noted:LR, Protonix. Skin: WNL Additional Notes: Dietitian consult for tube feeding start. Patient had MBS today-failed again today. MBS noted on 11/24, 11/25 and 10/30. Recommending Glucerna 1.2 at 20 ml/hr advance by 10 ml q 4 hours to goal rate of 70 ml/hr. Tube feedings at goal rate providing 1848 kcal/92 gm protein/1240 ml water. Flush 100 ml q 4 hours. Will monitor weight, labs, skin, diet orders, meds every Saturday and Saturday.
--- NOTE | 2024-11-27 12:53 | PCSTNOTE ---
Please refer to the Modified Barium Swallow Evaluation in the EMR. The above pt was seen for a third modified barium swallow. Recurrent MBS are being completed due to persistent difficulty swallowing since he underwent surgery for a cervical fusion on 11/20. Both previous MBSs revealed severe dysphagia. Aspiration occurred after the swallow of liquids and puree. Today, again, vocal quality was clearer versus the gurgly/wet previously noted. Before any test trials on this date, he was noted to be constantly throat-clearing as if having difficulty managing his saliva. Pt was seated for a lateral view and was only given small 3-4ml amounts of thin liquid barium and 1/2 - 3/4 tsp amount of pudding. The oral stages are normal. During the pharyngeal swallow, reduced laryngeal elevation was exhibited as evidenced by laryngeal penetration occurring during the swallow. Reduced pharyngeal peristasis/contraction is exhibited as in the previous tests; contents could not clear the pyriform sinus/upper esophageal region and spill over into the laryngeal vestibule and aspirated after the swallow. A cough reflex was exhibited but it does not clear all of the aspirate. Impression: severe dysphagia; aspiration occurred after the swallow of both liquids and puree. Reduced pharyngeal contraction/peristasis appears to be the cause. Osteophytes noted at C5/6 with a questionable impact. Recommendation: NPO with Dobhoff tube feeding to prevent deconditioning. (ST spoke with the dietitian who recommends Dobhoff). ST left a message with the hospitalist to determine if ST could initiate dysphagia therapy; after first MBS, neurosurgery did not recommend ST at that time.
[2024-11-27] MEDS: LORazepam INJ (*CRX) 2 MG/ML VIAL 1 MG IV PUSH (13:25)
[2024-11-27 13:31] LABS: Glucose Point of Care 137 mg/dl (65-105)
--- NOTE | 2024-11-27 15:09 | P.PNIM_ITS ---
Progress Note: A&P Assessment and Plan (1) Dysphagia: Code(s): R13.10 - Dysphagia, unspecified Status: Acute Assessment and Plan: Patient post-op day 4 of C3-4, C4-C5 ACDF it was requested patient stay overnig for observation due to high risk of bleeding secondary thrombocytopenia but patient was adamant about returning home patient presents with difficulty swallowing and anterior neck swelling. * CT Neck:Perioperative appearance of the neck on postoperative day 3 after anterior approach for cervical spine fusion * Neurosurgery following * Continue Dexamethasone q.6 * continue PPI b.i.d. * NPO as failed modified baraium swallow, speech following * 11/25/24-Exploratory surgery wtihout evacuation of hematoma and drain placement by neurosurgery * 11/25/24-2 units of platelets prior to surgery due to thrombocytopenia was given * 11/28/23-failed swallow again. Order placed for dobhoff with tube feedings (2) Thrombocytopenia, unspecified: Code(s): D69.6 - Thrombocytopenia, unspecified Status: Acute Assessment and Plan: Patient with history of liver transplant chronic history of thrombocytopenia * Initial platelet count 70>81 * 11/25/24 s/p transfuse 2 units platelets prior to surgery * Plt count 100 today (3) Essential (primary) hypertension: Code(s): I10 - Essential (primary) hypertension Status: Acute Assessment and Plan: continue home medications. 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 He denies any new complaints. Labs reviewed. Review of Systems Review of Systems: All systems reviewed & are unremarkable except as noted in HPI and below Exam Narrative: General: no acute distress Eyes: PERRLA, sclera clear Neck: surgical incision with dressing in place, drain has been removed, scant serous drainage Respiratory: Lungs clear to auscultation. Currently on room air. No adventitious lung sounds. Cardiac: RRR, no murmur, gallops, or friction rubs noted GI: abdomen soft, normoactive bowel sounds : voiding without difficulty Neuro: alert and oriented x4, no deficits Psych: interactive, normal affect Objective Data Vital Signs Vital Signs: Vital Signs - 24 hr 11/26/24 16:04 11/26/24 18:54 11/26/24 19:48 Temperature 97.0 F L 98.1 F Pulse Rate 61 70 65 Respiratory Rate 18 17 Blood Pressure 150/88 H 183/76 H Pulse Oximetry 99 99 Oxygen Delivery 11/26/24 20:00 11/26/24 20:00 11/26/24 22:05 Temperature Pulse Rate 61 Respiratory Rate Blood Pressure 171/74 H Pulse Oximetry Oxygen Delivery Room Air 11/27/24 00:00 11/27/24 00:02 11/27/24 04:00 Temperature 97.8 F Pulse Rate 63 56 L 59 L Respiratory Rate 16 Blood Pressure 166/77 H Pulse Oximetry 98 Oxygen Delivery 11/27/24 05:28 11/27/24 08:48 Temperature 98.9 F Pulse Rate 64 Respiratory Rate 18 Blood Pressure 160/80 H Pulse Oximetry 98 Oxygen Delivery Room Air Intake/Output Intake/Output: Intake & Output 11/24/24 11/25/24 11/26/24 11/27/24 23:59 23:59 23:59 23:59 Intake Total 2554.2 2846.9 2095.9 997.9 Output Total 850 1426 500 Balance 1704.2 1420.9 2095.9 497.9 Meds/Results Medications: Active Medications Generic Name Dose Route Start Last Admin Trade Name Freq PRN Reason Stop Dose Admin Acetaminophen 650 mg 11/25/24 14:37 Acetaminophen 650 Mg Suppository RECTAL Q6H PRN Mild Pain (1-3) or Fever Hydrocodone Bitart/Acetaminophen 1 tab 11/25/24 08:38 Hydrocodone/Acetaminophen (*Crx) 5-325 Mg Tablet PO Q4H PRN Mild Pain (1-3) Al Hydrox/Mg Hydrox/Simethicone 20 ml 11/25/24 08:33 Mag Hydrox/Al Hydrox/Simeth 30 Ml Udc PO Q4H PRN Indigestion/Heartburn Albuterol 2 puff 11/24/24 13:34 11/26/24 06:30 Albuterol Sulfate (*Sp) Aerosol 1 Puff INHALATION 2 puff Q6HRT PRN Administration Shortness Of Breath Amlodipine Besylate 10 mg 11/25/24 10:00 11/25/24 17:50 Amlodipine Besylate 10 Mg Tablet PO Not Given DAILY [facility] Bisacodyl 10 mg 11/25/24 08:33 Bisacodyl 10 Mg Suppository RECTAL DAILY PRN Constipation Carvedilol 25 mg 11/25/24 10:05 11/25/24 17:50 Carvedilol 25 Mg Tablet PO Not Given Q12HR [facility] Cyclobenzaprine HCl 10 mg 11/25/24 09:56 Cyclobenzaprine Hcl 10 Mg Tablet PO TID PRN muscle spasm Dexamethasone Sodium Phosphate 4 mg 11/24/24 00:00 11/27/24 14:32 Dexamethasone Sod Phos Inj 4 Mg/Ml Vial IV PUSH 4 mg Q6HR ERNESTINE Administration Dextrose 12.5 gm 11/24/24 12:04 Dextrose 50% 25 Gm/50 Ml Syringe IV PUSH PRN PRN Hypoglycemia Protocol Docusate Sodium 100 mg 11/25/24 09:00 11/25/24 17:50 Docusate Sodium 100 Mg Capsule PO Not Given Q12HR [facility] Doxazosin Mesylate 8 mg 11/25/24 21:00 Doxazosin Mesylate 4 Mg Tablet PO QHS [facility] Fluticasone Propionate 2 spray 11/25/24 10:07 Fluticasone Propionate 0.05% Na Spr 16 Gm Btl (*Bkc) NASAL DAILY PRN sinus symptoms Glucagon 1 mg 11/24/24 12:04 Glucagon For Inj 1 Mg Vial IM PRN PRN Hypoglycemia Protocol Glucose 15 gm 11/24/24 12:04 Glucose Oral Gel 15 Gm Of Glucse In 37.5 Gm Tube PO PRN PRN Hypoglycemia Protocol Hydralazine HCl 20 mg 11/24/24 11:59 11/26/24 21:15 Hydralazine Hcl 20 Mg/Ml Vial IV PUSH 20 mg Q6HR PRN Administration Hypertension Lactated Ringer's 1,000 mls @ 125 mls/hr 11/23/24 20:45 11/27/24 11:30 Lr - Lactated Ringers Iv IV CONT 0 mls/hr .Q8H ERNESTINE Infusion Dextrose 1,000 mls @ 100 mls/hr 11/24/24 12:04 Dextrose 5% 1,000 Ml IVPB PRN PRN Hypoglycemia Protocol Cefazolin Sodium 2 gm in 50 mls @ 100 mls/hr 11/25/24 19:00 11/27/24 06:58 Ancef 2 Gm/D5w 50 Ml IVPB 100 mls/hr Q12H ERNESTINE Administration Insulin Aspart 2 - 5 units 11/27/24 00:00 11/27/24 13:26 Insulin Aspart (*Bkc) 100 Units/Ml SUB-Q Not Given Q6HR [facility]NEST[facility] Protocol Loratadine 10 mg 11/25/24 21:00 Loratadine 10 Mg Tablet PO QHS [facility] Losartan Potassium 25 mg 11/25/24 10:05 11/25/24 17:50 Losartan Potassium 25 Mg Tablet PO Not Given DAILY [facility] Magnesium Oxide 400 mg 11/25/24 10:05 11/25/24 17:50 Magnesium Oxide 400 Mg Tablet PO Not Given DAILY [facility] Morphine Sulfate 2 mg 11/25/24 08:38 Morphine Sulfate (*Crx) 2 Mg/Ml Inj IV PUSH Q2H PRN Pain Rated 7-10 Ondansetron HCl 4 mg 11/25/24 08:38 Ondansetron Inj 4 Mg/2 Ml Vial IV PUSH Q8H PRN Nausea And Vomiting Pantoprazole Sodium 40 mg 11/23/24 21:00 11/27/24 08:49 Pantoprazole Sodium Iv 40 Mg Vial IV PUSH 40 mg Q12HR [facility] Administration Senna/Docusate Sodium 1 tab 11/25/24 08:38 Senna/Docusate Sodium Tablet PO HS PRN Constipation Tacrolimus 1 mg 11/25/24 10:05 11/25/24 17:50 Tacrolimus 0.5 Mg Capsule PO Not Given Q12HR [facility] Radiology Results: ITS Impressions Soft Tissue Neck CT 11/23/24 20:12 IMPRESSION: Perioperative appearance of the neck on postoperative day 3 after anterior approach for cervical spine fusion, as detailed above. Brain MRI 11/26/24 10:29 IMPRESSION: 1. No evidence of acute infarct seen. 2. 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 Follow-up advised. 3. Susceptibility artifact in the aqued[place] which may be hemorrhagic. Follow-up advised. Modified Barium Swallow 11/27/24 12:15 IMPRESSION: Recurrent prompt laryngeal penetration or aspiration after the swallow of residue in the piriform sinus. Please correlate with speech pathologist findings and specific feeding recommendations. Labs Labs: Laboratory Results - last 24 hr 11/26/24 11/26/24 11/27/24 17:23 19:46 00:00 WBC RBC Hgb Hct MCV MCH MCHC RDW Plt Count MPV % Immature Plt Fraction Sodium Potassium Chloride Carbon Dioxide Anion Gap BUN Creatinine Estim Creat Clear Calc Estimated GFR Glucose POC Capillary Glucose 158 H 175 H 194 H Calcium Magnesium Total Bilirubin AST ALT Alkaline Phosphatase Total Protein Albumin 11/27/24 11/27/24 11/27/24 05:10 05:20 08:22 WBC 4.6 RBC 4.45 L Hgb 13.5 L Hct 39.6 L MCV 89.0 MCH 30.3 MCHC 34.1 RDW 11.8 Plt Count 100 L MPV 10.3 % Immature Plt Fraction 3.3 Sodium 136 L Potassium 3.4 Chloride 101 Carbon Dioxide 27 Anion Gap 8 BUN 22 H Creatinine 0.79 Estim Creat Clear Calc 84 Estimated GFR > 60 Glucose 168 H POC Capillary Glucose 172 H 178 H Calcium 8.7 Magnesium 1.7 Total Bilirubin 0.9 AST 24 ALT 20 Alkaline Phosphatase 53 Total Protein 6.0 L Albumin 3.2 L 11/27/24 13:25 WBC RBC Hgb Hct MCV MCH MCHC RDW Plt Count MPV % Immature Plt Fraction Sodium Potassium Chloride Carbon Dioxide Anion Gap BUN Creatinine Estim Creat Clear Calc Estimated GFR Glucose POC Capillary Glucose 137 H Calcium Magnesium Total Bilirubin AST ALT Alkaline Phosphatase Total Protein Albumin Quality VTE Prophylaxis VTE prophylaxis: mechanical ordered
[2024-11-27] MEDS: hydrALAZINE HCL 20 MG/ML VIAL IV PUSH (16:44)
[2024-11-27 18:12] LABS: Glucose Point of Care 151 mg/dl (65-105)
[2024-11-28] VITALS (13 sets, daily range): BP systolic 143–179; BP diastolic 78–86; PULSE 65–90; RESP 19–20; TEMP 35.7–36.9; O2SAT 98–100
[2024-11-28] MEDS: INSULIN ASPART (*BKC) 100 UNITS/ML SUB-Q ×3 (00:27→13:27)
[2024-11-28] MEDS: dexAMETHasone SOD PHOS INJ 4 MG/ML VIAL IV PUSH ×4 (00:27→17:48)
[2024-11-28 05:37] LABS: Glucose Point of Care 223 mg/dl (65-105)
[2024-11-28 06:10] LABS: Hematocrit 43.2 % (42.0-52.0); Hemoglobin 14.7 g/dL (14.0-18.0); Immature Platelet Fraction Pct 3.9 % (0.9-11.2); Mean Corpuscular Hemoglobin 30.4 pg (26-34); Mean Corpuscular Volume 89.3 fl (80-100); Mean Platelet Volume 10.6 fl (7.4-10.4); Platelet Count Result 129 k/mm3 (150-375); Red Blood Count 4.84 M/mm3 (4.6-6.20); Red Cell Distribution Width 11.7 % (11.5-14.5); White Blood Count 5.2 K/mm3 (4.5-10.0)
[2024-11-28 06:18] LABS: Alanine Aminotransferase 30 U/L (6-50); Albumin Level 3.3 g/dL (3.5-5.1); Alkaline Phosphatase 58 U/L (38-126); Anion Gap 5 mmol/L (4-12); Aspartate Amino Transferase 30 U/L (17-59); Bilirubin,Total 0.7 mg/dL (0.2-1.3); Blood Urea Nitrogen 27 mg/dL (9-20); Calcium 8.8 mg/dL (8.4-10.2); Carbon Dioxide 34 mmol/L (22-30); Chloride 99 mmol/L (98-107); Estimated CRCL calculation 65 ml/min; Estimated Glomerular Filt Rate > 60; Glucose 214 mg/dL (65-110); Magnesium 1.9 mg/dL (1.6-2.3); Potassium 3.7 mmol/L (3.4-5.0); Sodium 138 mmol/L (137-145)
[2024-11-28] MEDS: PANTOPRAZOLE SODIUM IV 40 MG VIAL IV PUSH ×2 (09:45→20:02)
--- NOTE | 2024-11-28 11:02 | P.PNIM_ITS ---
Progress Note: A&P Assessment and Plan (1) Dysphagia: Code(s): R13.10 - Dysphagia, unspecified Status: Acute Assessment and Plan: Patient post-op day 4 of C3-4, C4-C5 ACDF it was requested patient stay overnig ht for observation due to high risk of bleeding secondary thrombocytopenia but patient was adamant about returning home patient presents with difficulty swallowing and anterior neck swelling. * CT Neck:Perioperative appearance of the neck on postoperative day 3 after anterior approach for cervical spine fusion * Neurosurgery following * Continue Dexamethasone q.6 * continue PPI b.i.d. * NPO as failed modified barium swallow, speech following * 11/25/24-Exploratory surgery wtihout evacuation of hematoma and drain placement by neurosurgery * 11/25/24-2 units of platelets prior to surgery due to thrombocytopenia was given * 11/28/23-failed swallow again. Order placed for dobhoff with tube feedings * 11/28/24-Dobhoff placed yesterday, now on Tube feeding. Plan for Modified barium on saturday to reassess swallowing. (2) Thrombocytopenia, unspecified: Code(s): D69.6 - Thrombocytopenia, unspecified Status: Acute Assessment and Plan: Patient with history of liver transplant chronic history of thrombocytopenia * Initial platelet count 70>81 * 11/25/24 s/p transfuse 2 units platelets prior to surgery * Plt count 129 today (3) Essential (primary) hypertension: Code(s): I10 - Essential (primary) hypertension Status: Acute Assessment and Plan: continue home medications. 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 He has Dobhoff in place with tube feedings. Plan for another Modified barium swallow on Saturday. Labs reviewed. Review of Systems Review of Systems: All systems reviewed & are unremarkable except as noted in HPI and below Exam Narrative: General: no acute distress Eyes: PERRLA, sclera clear Neck: surgical incision with dressing in place, drain has been removed, scant serous drainage Respiratory: Lungs clear to auscultation. Currently on room air. No adventitious lung sounds. Cardiac: RRR, no murmur, gallops, or friction rubs noted GI: abdomen soft, normoactive bowel sounds : voiding without difficulty Neuro: alert and oriented x4, no deficits Skin: steri strips to anterior neck with surgical incision that is well approximated. Psych: interactive, normal affect Objective Data Vital Signs Vital Signs: Vital Signs - 24 hr 11/27/24 12:05 11/27/24 14:58 11/27/24 16:00 Temperature 98.4 F 98.2 F Pulse Rate 68 78 70 Respiratory Rate 20 18 Blood Pressure 154/72 H 180/72 H Pulse Oximetry 100 99 Oxygen Delivery 11/27/24 16:04 11/27/24 20:00 11/27/24 20:00 Temperature Pulse Rate 60 74 74 Respiratory Rate 18 Blood Pressure Pulse Oximetry 99 Oxygen Delivery Room Air 11/27/24 20:55 11/28/24 00:00 11/28/24 02:45 Temperature 97.4 F L 96.3 F L Pulse Rate 76 80 76 Respiratory Rate 18 20 Blood Pressure 155/82 H 172/82 H Pulse Oximetry 97 98 Oxygen Delivery 11/28/24 04:00 11/28/24 06:00 11/28/24 10:00 Temperature 96.4 F L 98.4 F Pulse Rate 79 84 79 Respiratory Rate 20 20 Blood Pressure 163/84 H 179/85 H Pulse Oximetry 98 99 Oxygen Delivery Intake/Output Intake/Output: Intake & Output 11/25/24 11/26/24 11/27/24 11/28/24 23:59 23:59 23:59 23:59 Intake Total 2846.9 2095.9 997.9 Output Total 1426 800 Balance 1420.9 2095.9 197.9 Meds/Results Medications: Active Medications Generic Name Dose Route Start Last Admin Trade Name Freq PRN Reason Stop Dose Admin Acetaminophen 650 mg 11/25/24 14:37 Acetaminophen 650 Mg Suppository RECTAL Q6H PRN Mild Pain (1-3) or Fever Hydrocodone Bitart/Acetaminophen 1 tab 11/25/24 08:38 Hydrocodone/Acetaminophen (*Crx) 5-325 Mg Tablet PO Q4H PRN Mild Pain (1-3) Al Hydrox/Mg Hydrox/Simethicone 20 ml 11/25/24 08:33 Mag Hydrox/Al Hydrox/Simeth 30 Ml Udc PO Q4H PRN Indigestion/Heartburn Albuterol 2 puff 11/24/24 13:34 11/26/24 06:30 Albuterol Sulfate (*Sp) Aerosol 1 Puff INHALATION 2 puff Q6HRT PRN Administration Shortness Of Breath Amlodipine Besylate 10 mg 11/25/24 10:00 11/25/24 17:50 Amlodipine Besylate 10 Mg Tablet PO Not Given DAILY [facility] Bisacodyl 10 mg 11/25/24 08:33 Bisacodyl 10 Mg Suppository RECTAL DAILY PRN Constipation Carvedilol 25 mg 11/25/24 10:05 11/25/24 17:50 Carvedilol 25 Mg Tablet PO Not Given Q12HR [facility] Cyclobenzaprine HCl 10 mg 11/25/24 09:56 Cyclobenzaprine Hcl 10 Mg Tablet PO TID PRN muscle spasm Dexamethasone Sodium Phosphate 4 mg 11/24/24 00:00 11/28/24 05:39 Dexamethasone Sod Phos Inj 4 Mg/Ml Vial IV PUSH 4 mg Q6HR ER[facility] Administration Dextrose 12.5 gm 11/24/24 12:04 Dextrose 50% 25 Gm/50 Ml Syringe IV PUSH PRN PRN Hypoglycemia Protocol Docusate Sodium 100 mg 11/25/24 09:00 11/25/24 17:50 Docusate Sodium 100 Mg Capsule PO Not Given Q12HR [facility] Doxazosin Mesylate 8 mg 11/25/24 21:00 Doxazosin Mesylate 4 Mg Tablet PO QHS [facility] Fluticasone Propionate 2 spray 11/25/24 10:07 Fluticasone Propionate 0.05% Na Spr 16 Gm Btl (*Bkc) NASAL DAILY PRN sinus symptoms Glucagon 1 mg 11/24/24 12:04 Glucagon For Inj 1 Mg Vial IM PRN PRN Hypoglycemia Protocol Glucose 15 gm 11/24/24 12:04 Glucose Oral Gel 15 Gm Of Glucse In 37.5 Gm Tube PO PRN PRN Hypoglycemia Protocol Hydralazine HCl 20 mg 11/24/24 11:59 11/27/24 16:44 Hydralazine Hcl 20 Mg/Ml Vial IV PUSH 20 mg Q6HR PRN Administration Hypertension Dextrose 1,000 mls @ 100 mls/hr 11/24/24 12:04 Dextrose 5% 1,000 Ml IVPB PRN PRN Hypoglycemia Protocol Insulin Aspart 2 - 5 units 11/27/24 00:00 11/28/24 06:30 Insulin Aspart (*Bkc) 100 Units/Ml SUB-Q 2 units Q6HR ERNESTINE Administration Protocol Loratadine 10 mg 11/25/24 21:00 Loratadine 10 Mg Tablet PO QHS [facility] Losartan Potassium 25 mg 11/25/24 10:05 11/25/24 17:50 Losartan Potassium 25 Mg Tablet PO Not Given DAILY [facility] Magnesium Oxide 400 mg 11/25/24 10:05 11/25/24 17:50 Magnesium Oxide 400 Mg Tablet PO Not Given DAILY [facility] Morphine Sulfate 2 mg 11/25/24 08:38 Morphine Sulfate (*Crx) 2 Mg/Ml Inj IV PUSH Q2H PRN Pain Rated 7-10 Ondansetron HCl 4 mg 11/25/24 08:38 Ondansetron Inj 4 Mg/2 Ml Vial IV PUSH Q8H PRN Nausea And Vomiting Pantoprazole Sodium 40 mg 11/23/24 21:00 11/28/24 09:45 Pantoprazole Sodium Iv 40 Mg Vial IV PUSH 40 mg Q12HR [facility] Administration Senna/Docusate Sodium 1 tab 11/25/24 08:38 Senna/Docusate Sodium Tablet PO HS PRN Constipation Tacrolimus 1 mg 11/25/24 10:05 11/25/24 17:50 Tacrolimus 0.5 Mg Capsule PO Not Given Q12HR [facility] Radiology Results: ITS Impressions Soft Tissue Neck CT 11/23/24 20:12 IMPRESSION: Perioperative appearance of the neck on postoperative day 3 after anterior approach for cervical spine fusion, as detailed above. Brain MRI 11/26/24 10:29 IMPRESSION: 1. No evidence of acute infarct seen. 2. 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 Follow-up advised. 3. Susceptibility artifact in the [place] which may be hemorrhagic. Follow-up advised. Modified Barium Swallow 11/27/24 12:15 IMPRESSION: Recurrent prompt laryngeal penetration or aspiration after the swallow of residue in the piriform sinus. Please correlate with speech pathologist findings and specific feeding recommendations. Labs Labs: Laboratory Results - last 24 hr 11/27/24 11/27/24 11/28/24 13:25 18:00 00:17 WBC RBC Hgb Hct MCV MCH MCHC RDW Plt Count MPV % Immature Plt Fraction Sodium Potassium Chloride Carbon Dioxide Anion Gap BUN Creatinine Estim Creat Clear Calc Estimated GFR Glucose POC Capillary Glucose 137 H 151 H 223 H Calcium Magnesium Total Bilirubin AST ALT Alkaline Phosphatase Total Protein Albumin 11/28/24 05:46 WBC 5.2 RBC 4.84 Hgb 14.7 Hct 43.2 MCV 89.3 MCH 30.4 MCHC 34.0 RDW 11.7 Plt Count 129 L MPV 10.6 H % Immature Plt Fraction 3.9 Sodium 138 Potassium 3.7 Chloride 99 Carbon Dioxide 34 H Anion Gap 5 BUN 27 H Creatinine 1.04 Estim Creat Clear Calc 65 Estimated GFR > 60 Glucose 214 H POC Capillary Glucose Calcium 8.8 Magnesium 1.9 Total Bilirubin 0.7 AST 30 ALT 30 Alkaline Phosphatase 58 Total Protein 6.0 L Albumin 3.3 L Quality VTE Prophylaxis VTE prophylaxis: mechanical ordered
[2024-11-28 12:02] LABS: Glucose Point of Care 202 mg/dl (65-105)
--- NOTE | 2024-11-28 12:50 | P.PNNEUSUR_ITS ---
Progress Note: A&P Assessment and Plan (1) Dysphagia: Code(s): R13.10 - Dysphagia, unspecified Status: Acute (2) Status post cervical spinal fusion: Code(s): Z98.1 - Arthrodesis status Status: Acute Plan s/p seroma evacuation on 11/24 s/p ACDF on 11/20. He continues to make improvements with his ability to swallow secretions, but unfortunately, Speech Therapy will not return until Saturday for reassessment Plan: -Speech Therapy on Saturday for diet advancement -Out of bed to chair, ambulate TID Subjective Date/time seen: 11/28/24 12:50 Interval history: Doing well today. He apparently had some drainage from his SAIRA drain site a day or two ago, but this has ceased. He reports being able to swallow saliva well. He failed his swallow assessment yesterday and has been started on tube feeds. He is ambulating to the restroom without difficulty. Review of Systems Review of Systems: All systems reviewed & are unremarkable except as noted in HPI and below Exam Narrative: AOx4 Surgical site appears dry, no erythema. Swelling has gone down significantly Moving arms and legs well Less coughing today Objective Data Vital Signs Vital Signs: Vital Signs - 24 hr 11/27/24 14:58 11/27/24 16:00 11/27/24 16:04 Temperature 98.4 F 98.2 F Pulse Rate 78 70 60 Respiratory Rate 20 18 Blood Pressure 154/72 H 180/72 H Pulse Oximetry 100 99 Oxygen Delivery 11/27/24 20:00 11/27/24 20:00 11/27/24 20:55 Temperature 97.4 F L Pulse Rate 74 74 76 Respiratory Rate 18 18 Blood Pressure 155/82 H Pulse Oximetry 99 97 Oxygen Delivery Room Air 11/28/24 00:00 11/28/24 02:45 11/28/24 04:00 Temperature 96.3 F L Pulse Rate 80 76 79 Respiratory Rate 20 Blood Pressure 172/82 H Pulse Oximetry 98 Oxygen Delivery 11/28/24 06:00 11/28/24 08:00 11/28/24 10:00 Temperature 96.4 F L 98.4 F Pulse Rate 84 70 79 Respiratory Rate 20 20 Blood Pressure 163/84 H 179/85 H Pulse Oximetry 98 99 Oxygen Delivery 11/28/24 12:00 Temperature Pulse Rate 82 Respiratory Rate Blood Pressure Pulse Oximetry Oxygen Delivery Intake/Output Intake/Output: Intake & Output 11/25/24 11/26/24 11/27/24 11/28/24 23:59 23:59 23:59 23:59 Intake Total 2846.9 2095.9 997.9 Output Total 1426 800 Balance 1420.9 2095.9 197.9 Meds/Results Medications: Active Medications Generic Name Dose Route Start Last Admin Trade Name Freq PRN Reason Stop Dose Admin Acetaminophen 650 mg 11/25/24 14:37 Acetaminophen 650 Mg Suppository RECTAL Q6H PRN Mild Pain (1-3) or Fever Hydrocodone Bitart/Acetaminophen 1 tab 11/25/24 08:38 Hydrocodone/Acetaminophen (*Crx) 5-325 Mg Tablet PO Q4H PRN Mild Pain (1-3) Al Hydrox/Mg Hydrox/Simethicone 20 ml 11/25/24 08:33 Mag Hydrox/Al Hydrox/Simeth 30 Ml Udc PO Q4H PRN Indigestion/Heartburn Albuterol 2 puff 11/24/24 13:34 11/26/24 06:30 Albuterol Sulfate (*Sp) Aerosol 1 Puff INHALATION 2 puff Q6HRT PRN Administration Shortness Of Breath Amlodipine Besylate 10 mg 11/25/24 10:00 11/25/24 17:50 Amlodipine Besylate 10 Mg Tablet PO Not Given DAILY ERNESTINE Bisacodyl 10 mg 11/25/24 08:33 Bisacodyl 10 Mg Suppository RECTAL DAILY PRN Constipation Carvedilol 25 mg 11/25/24 10:05 11/25/24 17:50 Carvedilol 25 Mg Tablet PO Not Given Q12HR [facility]ST[facility] Cyclobenzaprine HCl 10 mg 11/25/24 09:56 Cyclobenzaprine Hcl 10 Mg Tablet PO TID PRN muscle spasm Dexamethasone Sodium Phosphate 4 mg 11/24/24 00:00 11/28/24 05:39 Dexamethasone Sod Phos Inj 4 Mg/Ml Vial IV PUSH 4 mg Q6HR ERNESTINE Administration Dextrose 12.5 gm 11/24/24 12:04 Dextrose 50% 25 Gm/50 Ml Syringe IV PUSH PRN PRN Hypoglycemia Protocol Docusate Sodium 100 mg 11/25/24 09:00 11/25/24 17:50 Docusate Sodium 100 Mg Capsule PO Not Given Q12HR [facility] Doxazosin Mesylate 8 mg 11/25/24 21:00 Doxazosin Mesylate 4 Mg Tablet PO QHS [facility] Fluticasone Propionate 2 spray 11/25/24 10:07 Fluticasone Propionate 0.05% Na Spr 16 Gm Btl (*Bkc) NASAL DAILY PRN sinus symptoms Glucagon 1 mg 11/24/24 12:04 Glucagon For Inj 1 Mg Vial IM PRN PRN Hypoglycemia Protocol Glucose 15 gm 11/24/24 12:04 Glucose Oral Gel 15 Gm Of Glucse In 37.5 Gm Tube PO PRN PRN Hypoglycemia Protocol Hydralazine HCl 20 mg 11/24/24 11:59 11/27/24 16:44 Hydralazine Hcl 20 Mg/Ml Vial IV PUSH 20 mg Q6HR PRN Administration Hypertension Dextrose 1,000 mls @ 100 mls/hr 11/24/24 12:04 Dextrose 5% 1,000 Ml IVPB PRN PRN Hypoglycemia Protocol Insulin Aspart 2 - 5 units 11/27/24 00:00 11/28/24 06:30 Insulin Aspart (*Bkc) 100 Units/Ml SUB-Q 2 units Q6HR [facility]STINE Administration Protocol Loratadine 10 mg 11/25/24 21:00 Loratadine 10 Mg Tablet PO QHS [facility] Losartan Potassium 25 mg 11/25/24 10:05 11/25/24 17:50 Losartan Potassium 25 Mg Tablet PO Not Given DAILY [facility] Magnesium Oxide 400 mg 11/25/24 10:05 11/25/24 17:50 Magnesium Oxide 400 Mg Tablet PO Not Given DAILY [facility] Morphine Sulfate 2 mg 11/25/24 08:38 Morphine Sulfate (*Crx) 2 Mg/Ml Inj IV PUSH Q2H PRN Pain Rated 7-10 Ondansetron HCl 4 mg 11/25/24 08:38 Ondansetron Inj 4 Mg/2 Ml Vial IV PUSH Q8H PRN Nausea And Vomiting Pantoprazole Sodium 40 mg 11/23/24 21:00 11/28/24 09:45 Pantoprazole Sodium Iv 40 Mg Vial IV PUSH 40 mg Q12HR ERNESTINE Administration Senna/Docusate Sodium 1 tab 11/25/24 08:38 Senna/Docusate Sodium Tablet PO HS PRN Constipation Tacrolimus 1 mg 11/25/24 10:05 11/25/24 17:50 Tacrolimus 0.5 Mg Capsule PO Not Given Q12HR [facility] Radiology Results: ITS Impressions Soft Tissue Neck CT 11/23/24 20:12 IMPRESSION: Perioperative appearance of the neck on postoperative day 3 after anterior approach for cervical spine fusion, as detailed above. Brain MRI 11/26/24 10:29 IMPRESSION: 1. No evidence of acute infarct seen. 2. 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 Follow-up advised. 3. Susceptibility artifact in the aqueduct of [place] which may be hemorrhagic. Follow-up advised. Modified Barium Swallow 11/27/24 12:15 IMPRESSION: Recurrent prompt laryngeal penetration or aspiration after the swallow of residue in the piriform sinus. Please correlate with speech pathologist findings and specific feeding recommendations. Labs Labs: Laboratory Results - last 24 hr 11/27/24 11/27/24 11/28/24 13:25 18:00 00:17 WBC RBC Hgb Hct MCV MCH MCHC RDW Plt Count MPV % Immature Plt Fraction Sodium Potassium Chloride Carbon Dioxide Anion Gap BUN Creatinine Estim Creat Clear Calc Estimated GFR Glucose POC Capillary Glucose 137 H 151 H 223 H Calcium Magnesium Total Bilirubin AST ALT Alkaline Phosphatase Total Protein Albumin 11/28/24 11/28/24 05:46 11:59 WBC 5.2 RBC 4.84 Hgb 14.7 Hct 43.2 MCV 89.3 MCH 30.4 MCHC 34.0 RDW 11.7 Plt Count 129 L MPV 10.6 H % Immature Plt Fraction 3.9 Sodium 138 Potassium 3.7 Chloride 99 Carbon Dioxide 34 H Anion Gap 5 BUN 27 H Creatinine 1.04 Estim Creat Clear Calc 65 Estimated GFR > 60 Glucose 214 H POC Capillary Glucose 202 H Calcium 8.8 Magnesium 1.9 Total Bilirubin 0.7 AST 30 ALT 30 Alkaline Phosphatase 58 Total Protein 6.0 L Albumin 3.3 L
[2024-11-28] MEDS: hydrALAZINE HCL 20 MG/ML VIAL IV PUSH (17:50)
[2024-11-29] VITALS (12 sets, daily range): BP systolic 135–183; BP diastolic 62–89; PULSE 61–83; RESP 18–20; TEMP 36.1–37.4; O2SAT 96–100
[2024-11-29] MEDS: dexAMETHasone SOD PHOS INJ 4 MG/ML VIAL IV PUSH ×4 (00:38→17:02)
[2024-11-29] MEDS: INSULIN ASPART (*BKC) 100 UNITS/ML SUB-Q ×4 (00:41→17:02)
[2024-11-29 00:46] LABS: Glucose Point of Care 261 mg/dl (65-105)
[2024-11-29] MEDS: MORPHINE SULFATE (*CRX) 2 MG/ML INJ IV PUSH (05:13)
[2024-11-29 06:24] LABS: Hematocrit 41.3 % (42.0-52.0); Hemoglobin 14.1 g/dL (14.0-18.0); Immature Platelet Fraction Pct 4.2 % (0.9-11.2); Mean Corpuscular HGB Conc 34.1 g/dl (32-36); Mean Corpuscular Hemoglobin 30.5 pg (26-34); Mean Corpuscular Volume 89.2 fl (80-100); Mean Platelet Volume 10.6 fl (7.4-10.4); Platelet Count Result 88 k/mm3 (150-375); Red Blood Count 4.63 M/mm3 (4.6-6.20); Red Cell Distribution Width 11.9 % (11.5-14.5)
[2024-11-29 06:35] LABS: Alanine Aminotransferase 27 U/L (6-50); Albumin Level 3.2 g/dL (3.5-5.1); Alkaline Phosphatase 57 U/L (38-126); Anion Gap 3 mmol/L (4-12); Aspartate Amino Transferase 22 U/L (17-59); Bilirubin,Total 0.6 mg/dL (0.2-1.3); Blood Urea Nitrogen 30 mg/dL (9-20); Calcium 8.6 mg/dL (8.4-10.2); Carbon Dioxide 35 mmol/L (22-30); Chloride 101 mmol/L (98-107); Estimated CRCL calculation 68 ml/min; Estimated Glomerular Filt Rate > 60; Glucose 232 mg/dL (65-110); Potassium 3.8 mmol/L (3.4-5.0); Sodium 139 mmol/L (137-145)
[2024-11-29] MEDS: PANTOPRAZOLE SODIUM IV 40 MG VIAL IV PUSH ×2 (08:53→20:39)
[2024-11-29 11:47] LABS: Glucose Point of Care 263 mg/dl (65-105)
[2024-11-29] MEDS: hydrALAZINE HCL 20 MG/ML VIAL 10 MG IV PUSH (12:15)
--- NOTE | 2024-11-29 12:42 | P.PNIM_ITS ---
Progress Note: A&P Assessment and Plan (1) Dysphagia: Code(s): R13.10 - Dysphagia, unspecified Status: Acute Assessment and Plan: Patient post-op day 4 of C3-4, C4-C5 ACDF it was requested patient stay overnig ht for observation due to high risk of bleeding secondary thrombocytopenia but patient was adamant about returning home patient presents with difficulty swallowing and anterior neck swelling. * CT Neck:Perioperative appearance of the neck on postoperative day 3 after anterior approach for cervical spine fusion * Neurosurgery following * Continue Dexamethasone q.6 * continue PPI b.i.d. * NPO as failed modified barium swallow, speech following * 11/25/24-Exploratory surgery wtihout evacuation of hematoma and drain placement by neurosurgery * 11/25/24-2 units of platelets prior to surgery due to thrombocytopenia was given * 11/28/23-failed swallow again. Order placed for dobhoff with tube feedings * 11/28/24-Dobhoff placed yesterday, now on Tube feeding. Plan for Modified barium on saturday to reassess swallowing. (2) Thrombocytopenia, unspecified: Code(s): D69.6 - Thrombocytopenia, unspecified Status: Acute Assessment and Plan: Patient with history of liver transplant chronic history of thrombocytopenia * Initial platelet count 70>81 * 11/25/24 s/p transfuse 2 units platelets prior to surgery * Plt count 88 today (3) Essential (primary) hypertension: Code(s): I10 - Essential (primary) hypertension Status: Acute Assessment and Plan: continue home medications. hydralazine prn (4) Type 2 diabetes mellitus without complications: Qualifiers: Diabetes mellitus skilled nursing insulin use: without skilled nursing use Qualified Code(s): E11.9 - Type 2 diabetes mellitus without complications Code(s): E11.9 - Type 2 diabetes mellitus without complications Status: Acute Assessment and Plan: * Accu-Cheks q6h * BG ranging 158-201 * Last Hgb A1C was 6.4 on 08/19/24 * low dose sliding scale insulin for NPO patients started * hold oral diabetic medications * hypoglycemic protocol in place * Currently NPO * added Lantus to regimen (5) Liver transplant recipient: Code(s): Z94.4 - Liver transplant status Status: Acute Assessment and Plan: * Restarted tacrolimus per tube Time Spent With Patient Time with patient: 25 - 35 minutes Subjective Date/time seen: 11/29/24 12:42 Interval history: Patient denies any new complaints today. He has not been coughing or clearing his throat as much today. Labs reviewed. Review of Systems Review of Systems: All systems reviewed & are unremarkable except as noted in HPI and below Exam Narrative: General: no acute distress Neck: surgical incision with dressing in place, drain has been removed, scant serous drainage Respiratory: Lungs clear to auscultation. Currently on room air. No adventitious lung sounds. Cardiac: RRR, no murmur, gallops, or friction rubs noted GI: abdomen soft, normoactive bowel sounds : voiding without difficulty Neuro: alert and oriented x4, no deficits Skin: steri strips to anterior neck with surgical incision that is well approximated. Objective Data Vital Signs Vital Signs: Vital Signs - 24 hr 11/28/24 14:00 11/28/24 16:20 11/28/24 17:50 Temperature 98.5 F Pulse Rate 82 65 Respiratory Rate 19 Blood Pressure 168/82 H 178/86 H Pulse Oximetry 100 Oxygen Delivery 11/28/24 19:00 11/28/24 20:00 11/28/24 20:00 Temperature Pulse Rate 90 90 Respiratory Rate Blood Pressure 143/78 H Pulse Oximetry Oxygen Delivery Room Air 11/28/24 22:45 11/29/24 00:00 11/29/24 02:00 Temperature 96.6 F L 97.0 F L Pulse Rate 73 72 71 Respiratory Rate 20 18 Blood Pressure 163/86 H 168/79 H Pulse Oximetry 98 96 Oxygen Delivery 11/29/24 04:00 11/29/24 06:00 11/29/24 08:00 Temperature 97.0 F L 99.3 F Pulse Rate 61 69 78 Respiratory Rate 18 18 Blood Pressure 162/82 H 135/62 Pulse Oximetry 97 97 Oxygen Delivery 11/29/24 08:09 11/29/24 08:58 11/29/24 11:58 Temperature 98.6 F Pulse Rate 69 65 Respiratory Rate 18 Blood Pressure 183/85 H Pulse Oximetry 99 Oxygen Delivery Room Air 11/29/24 12:09 Temperature Pulse Rate 67 Respiratory Rate Blood Pressure Pulse Oximetry Oxygen Delivery Intake/Output Intake/Output: Intake & Output 11/26/24 11/27/24 11/28/24 11/29/24 23:59 23:59 23:59 23:59 Intake Total 2095.9 997.9 1145 1068 Output Total 800 600 Balance 2095.9 197.9 545 1068 Meds/Results Medications: Active Medications Generic Name Dose Route Start Last Admin Trade Name Freq PRN Reason Stop Dose Admin Acetaminophen 650 mg 11/25/24 14:37 Acetaminophen 650 Mg Suppository RECTAL Q6H PRN Mild Pain (1-3) or Fever Hydrocodone Bitart/Acetaminophen 1 tab 11/25/24 08:38 Hydrocodone/Acetaminophen (*Crx) 5-325 Mg Tablet PO Q4H PRN Mild Pain (1-3) Al Hydrox/Mg Hydrox/Simethicone 20 ml 11/25/24 08:33 Mag Hydrox/Al Hydrox/Simeth 30 Ml Udc PO Q4H PRN Indigestion/Heartburn Albuterol 2 puff 11/24/24 13:34 11/26/24 06:30 Albuterol Sulfate (*Sp) Aerosol 1 Puff INHALATION 2 puff Q6HRT PRN Administration Shortness Of Breath Amlodipine Besylate 10 mg 11/30/24 09:00 Amlodipine Besylate 10 Mg Tablet FEED TUBE DAILY ER[facility] Bisacodyl 10 mg 11/25/24 08:33 Bisacodyl 10 Mg Suppository RECTAL DAILY PRN Constipation Carvedilol 25 mg 11/29/24 21:00 Carvedilol 25 Mg Tablet FEED TUBE Q12HR [facility] Cyclobenzaprine HCl 10 mg 11/25/24 09:56 Cyclobenzaprine Hcl 10 Mg Tablet PO TID PRN muscle spasm Dexamethasone Sodium Phosphate 4 mg 11/24/24 00:00 11/29/24 12:15 Dexamethasone Sod Phos Inj 4 Mg/Ml Vial IV PUSH 4 mg Q6HR ERNESTINE Administration Dextrose 12.5 gm 11/24/24 12:04 Dextrose 50% 25 Gm/50 Ml Syringe IV PUSH PRN PRN Hypoglycemia Protocol Docusate Sodium 100 mg 11/25/24 09:00 11/25/24 17:50 Docusate Sodium 100 Mg Capsule PO Not Given Q12HR [facility] Doxazosin Mesylate 8 mg 11/29/24 21:00 Doxazosin Mesylate 4 Mg Tablet FEED TUBE QHS [facility] Fluticasone Propionate 2 spray 11/25/24 10:07 Fluticasone Propionate 0.05% Na Spr 16 Gm Btl (*Bkc) NASAL DAILY PRN sinus symptoms Glucagon 1 mg 11/24/24 12:04 Glucagon For Inj 1 Mg Vial IM PRN PRN Hypoglycemia Protocol Glucose 15 gm 11/24/24 12:04 Glucose Oral Gel 15 Gm Of Glucse In 37.5 Gm Tube PO PRN PRN Hypoglycemia Protocol Hydralazine HCl 10 mg 11/29/24 12:00 11/29/24 12:15 Hydralazine Hcl 20 Mg/Ml Vial IV PUSH 10 mg Q8H PRN Administration Hypertension Dextrose 1,000 mls @ 100 mls/hr 11/24/24 12:04 Dextrose 5% 1,000 Ml IVPB PRN PRN Hypoglycemia Protocol Insulin Aspart 2 - 5 units 11/27/24 00:00 11/29/24 12:15 Insulin Aspart (*Bkc) 100 Units/Ml SUB-Q 3 units Q6HR [facility] Administration Protocol Insulin Glargine 13 units 11/29/24 21:00 Insulin Glargine (*Bkc) 100 Units/Ml 0.15 units/kg (13 units) SUB-Q HS [facility] Loratadine 10 mg 11/29/24 21:00 Loratadine 10 Mg Tablet FEED TUBE QHS [facility] Losartan Potassium 25 mg 11/30/24 09:00 Losartan Potassium 25 Mg Tablet FEED TUBE DAILY [facility] Magnesium Oxide 400 mg 11/25/24 10:05 11/25/24 17:50 Magnesium Oxide 400 Mg Tablet PO Not Given DAILY [facility] Morphine Sulfate 2 mg 11/25/24 08:38 11/29/24 05:13 Morphine Sulfate (*Crx) 2 Mg/Ml Inj IV PUSH 2 mg Q2H PRN Administration Pain Rated 7-10 Ondansetron HCl 4 mg 11/25/24 08:38 Ondansetron Inj 4 Mg/2 Ml Vial IV PUSH Q8H PRN Nausea And Vomiting Pantoprazole Sodium 40 mg 11/23/24 21:00 11/29/24 08:53 Pantoprazole Sodium Iv 40 Mg Vial IV PUSH 40 mg Q12HR [facility] Administration Senna/Docusate Sodium 1 tab 11/25/24 08:38 Senna/Docusate Sodium Tablet PO HS PRN Constipation Tacrolimus 1 mg 11/29/24 21:00 Tacrolimus 0.5 Mg Capsule FEED TUBE Q12HR [facility] Radiology Results: ITS Impressions Soft Tissue Neck CT 11/23/24 20:12 IMPRESSION: Perioperative appearance of the neck on postoperative day 3 after anterior approach for cervical spine fusion, as detailed above. Brain MRI 11/26/24 10:29 IMPRESSION: 1. No evidence of acute infarct seen. 2. 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 Follow-up advised. 3. Susceptibility artifact in the [place] which may be hemorrhagic. Follow-up advised. Modified Barium Swallow 11/27/24 12:15 IMPRESSION: Recurrent prompt laryngeal penetration or aspiration after the swallow of residue in the piriform sinus. Please correlate with speech pathologist findings and specific feeding recommendations. Labs Labs: Laboratory Results - last 24 hr 11/29/24 11/29/24 11/29/24 00:40 06:00 11:44 WBC 5.0 RBC 4.63 Hgb 14.1 Hct 41.3 L MCV 89.2 MCH 30.5 MCHC 34.1 RDW 11.9 Plt Count 88 L MPV 10.6 H % Immature Plt Fraction 4.2 Sodium 139 Potassium 3.8 Chloride 101 Carbon Dioxide 35 H Anion Gap 3 L BUN 30 H Creatinine 1.00 Estim Creat Clear Calc 68 Estimated GFR > 60 Glucose 232 H POC Capillary Glucose 261 H 263 H Calcium 8.6 Magnesium 2.0 Total Bilirubin 0.6 AST 22 ALT 27 Alkaline Phosphatase 57 Total Protein 6.0 L Albumin 3.2 L Quality VTE Prophylaxis VTE prophylaxis: mechanical ordered
[2024-11-29 16:58] LABS: Glucose Point of Care 228 mg/dl (65-105)
[2024-11-29] MEDS: carvediloL 25 MG TABLET FEED TUBE (20:39)
[2024-11-29] MEDS: LORATADINE 10 MG TABLET FEED TUBE (20:39)
[2024-11-29] MEDS: DOXAZOSIN MESYLATE 4 MG TABLET 8 MG FEED TUBE (20:39)
[2024-11-29] MEDS: TACROLIMUS 0.5 MG CAPSULE 1 MG FEED TUBE (20:40)
[2024-11-29] MEDS: INSULIN GLARGINE (*BKC) 100 UNITS/ML 13 UNITS SUB-Q (20:42)
[2024-11-30] VITALS (8 sets, daily range): BP systolic 131–189; BP diastolic 66–87; PULSE 60–72; RESP 16–20; TEMP 36.1–36.4; O2SAT 97–100
[2024-11-30] MEDS: dexAMETHasone SOD PHOS INJ 4 MG/ML VIAL IV PUSH ×4 (01:04→17:54)
[2024-11-30] MEDS: INSULIN ASPART (*BKC) 100 UNITS/ML SUB-Q ×3 (01:05→17:59)
[2024-11-30 05:56] LABS: Hematocrit 42.6 % (42.0-52.0); Hemoglobin 14.3 g/dL (14.0-18.0); Immature Platelet Fraction Pct 6.6 % (0.9-11.2); Mean Corpuscular HGB Conc 33.6 g/dl (32-36); Mean Corpuscular Hemoglobin 30.5 pg (26-34); Mean Corpuscular Volume 90.8 fl (80-100); Mean Platelet Volume 12.1 fl (7.4-10.4); Platelet Count Result 59 k/mm3 (150-375); Red Blood Count 4.69 M/mm3 (4.6-6.20); Red Cell Distribution Width 11.9 % (11.5-14.5); White Blood Count 5.6 K/mm3 (4.5-10.0)
[2024-11-30 06:07] LABS: Alanine Aminotransferase 27 U/L (6-50); Albumin Level 3.1 g/dL (3.5-5.1); Alkaline Phosphatase 53 U/L (38-126); Anion Gap 6 mmol/L (4-12); Aspartate Amino Transferase 22 U/L (17-59); Bilirubin,Total 0.7 mg/dL (0.2-1.3); Blood Urea Nitrogen 31 mg/dL (9-20); Calcium 8.7 mg/dL (8.4-10.2); Carbon Dioxide 34 mmol/L (22-30); Chloride 99 mmol/L (98-107); Estimated CRCL calculation 81 ml/min; Estimated Glomerular Filt Rate > 60; Glucose 181 mg/dL (65-110); Magnesium 2.1 mg/dL (1.6-2.3); Potassium 3.9 mmol/L (3.4-5.0); Sodium 139 mmol/L (137-145)
[2024-11-30 06:46] LABS: Glucose Point of Care 238 mg/dl (65-105)
[2024-11-30 06:46] LABS: Glucose Point of Care 216 mg/dl (65-105)
[2024-11-30] MEDS: hydrALAZINE HCL 20 MG/ML VIAL 10 MG IV PUSH ×2 (09:20→20:26)
[2024-11-30] MEDS: PANTOPRAZOLE SODIUM IV 40 MG VIAL IV PUSH ×2 (09:20→20:07)
--- NOTE | 2024-11-30 09:54 | P.PNIM_ITS ---
Progress Note: A&P Assessment and Plan (1) Dysphagia: Code(s): R13.10 - Dysphagia, unspecified Status: Acute Assessment and Plan: Patient post-op day 4 of C3-4, C4-C5 ACDF it was requested patient stay overnig ht for observation due to high risk of bleeding secondary thrombocytopenia but patient was adamant about returning home patient presents with difficulty swallowing and anterior neck swelling. * CT Neck:Perioperative appearance of the neck on postoperative day 3 after anterior approach for cervical spine fusion * Neurosurgery following * Continue Dexamethasone q.6 * continue PPI b.i.d. * NPO as failed modified barium swallow, speech following * 11/25/24-Exploratory surgery without evacuation of hematoma and drain placement by neurosurgery * 11/25/24-2 units of platelets prior to surgery due to thrombocytopenia was given * 11/28/23-failed swallow again. Order placed for Dobhoff with tube feedings * 11/28/24-Dobhoff placed yesterday, now on Tube feeding. Plan for Modified barium on Saturday to reassess swallowing. * 11/30/24-failed Modified Barium today, will add speech therapy at this time. Will discontinue the steroid today. continue tube feedings via Dobhoff (2) Thrombocytopenia, unspecified: Code(s): D69.6 - Thrombocytopenia, unspecified Status: Acute Assessment and Plan: Patient with history of liver transplant chronic history of thrombocytopenia * Initial platelet count 70>81 * 11/25/24 s/p transfuse 2 units platelets prior to surgery * Plt count 59 today (3) Essential (primary) hypertension: Code(s): I10 - Essential (primary) hypertension Status: Acute Assessment and Plan: * continue home medications. * hydralazine prn (4) Type 2 diabetes mellitus without complications: Qualifiers: Diabetes mellitus long-term insulin use: without long-term use Qualified Code(s): E11.9 - Type 2 diabetes mellitus without complications Code(s): E11.9 - Type 2 diabetes mellitus without complications Status: Acute Assessment and Plan: * Accu-Cheks q6h * BG ranging 158-201 * Last Hgb A1C was 6.4 on 08/19/24 * low dose sliding scale insulin for NPO patients started * hold oral diabetic medications * hypoglycemic protocol in place * Currently NPO * added Lantus to regimen (5) Liver transplant recipient: Code(s): Z94.4 - Liver transplant status Status: Acute Assessment and Plan: * Restarted tacrolimus per tube Subjective Date/time seen: 11/30/24 09:54 Interval history: Patient failed his barium swallow test again today. We will add speech therapy today. Labs reviewed. Review of Systems Review of Systems: All systems reviewed & are unremarkable except as noted in HPI and below Exam Narrative: General: no acute distress Neck: surgical incision with dressing in place, drain has been removed, scant serous drainage Respiratory: Lungs clear to auscultation. Currently on room air. No adventitious lung sounds. Cardiac: RRR, no murmur, gallops, or friction rubs noted GI: abdomen soft, normoactive bowel sounds, Dobhoff in place : voiding without difficulty Neuro: alert and oriented x4, no deficits Skin: steri strips to anterior neck with surgical incision that is well approximated. Objective Data Vital Signs Vital Signs: Vital Signs - 24 hr 11/29/24 11:58 11/29/24 12:09 11/29/24 16:00 Temperature 98.6 F 98.6 F Pulse Rate 65 67 73 Respiratory Rate 18 18 Blood Pressure 183/85 H 169/84 H Pulse Oximetry 99 100 Oxygen Delivery 11/29/24 16:20 11/29/24 20:00 11/29/24 20:00 Temperature Pulse Rate 81 83 Respiratory Rate Blood Pressure Pulse Oximetry Oxygen Delivery Room Air 11/29/24 21:50 11/30/24 00:00 11/30/24 01:26 Temperature 97.1 F L 97.0 F L Pulse Rate 77 72 60 Respiratory Rate 20 18 Blood Pressure 167/89 H 167/74 H Pulse Oximetry 98 97 Oxygen Delivery 11/30/24 04:00 11/30/24 06:00 11/30/24 08:08 Temperature 97.0 F L 97.3 F L Pulse Rate 61 61 64 Respiratory Rate 20 16 Blood Pressure 168/73 H 189/87 H Pulse Oximetry 99 99 Oxygen Delivery Intake/Output Intake/Output: Intake & Output 11/27/24 11/28/24 11/29/24 11/30/24 23:59 23:59 23:59 23:59 Intake Total 997.9 1145 2383 701 Output Total 145 715 9317 Balance 197.9 545 2383 -299 Meds/Results Medications: Active Medications Generic Name Dose Route Start Last Admin Trade Name Freq PRN Reason Stop Dose Admin Acetaminophen 650 mg 11/25/24 14:37 Acetaminophen 650 Mg Suppository RECTAL Q6H PRN Mild Pain (1-3) or Fever Hydrocodone Bitart/Acetaminophen 1 tab 11/25/24 08:38 Hydrocodone/Acetaminophen (*Crx) 5-325 Mg Tablet PO Q4H PRN Mild Pain (1-3) Al Hydrox/Mg Hydrox/Simethicone 20 ml 11/25/24 08:33 Mag Hydrox/Al Hydrox/Simeth 30 Ml Udc PO Q4H PRN Indigestion/Heartburn Albuterol 2 puff 11/24/24 13:34 11/26/24 06:30 Albuterol Sulfate (*Sp) Aerosol 1 Puff INHALATION 2 puff Q6HRT PRN Administration Shortness Of Breath Amlodipine Besylate 10 mg 11/30/24 09:00 11/30/24 09:21 Amlodipine Besylate 10 Mg Tablet FEED TUBE Not Given DAILY ERNESTINE Bisacodyl 10 mg 11/25/24 08:33 Bisacodyl 10 Mg Suppository RECTAL DAILY PRN Constipation Carvedilol 25 mg 11/29/24 21:00 11/30/24 09:21 Carvedilol 25 Mg Tablet FEED TUBE Not Given Q12HR ERNESTINE Cyclobenzaprine HCl 10 mg 11/25/24 09:56 Cyclobenzaprine Hcl 10 Mg Tablet PO TID PRN muscle spasm Dexamethasone Sodium Phosphate 4 mg 11/24/24 00:00 11/30/24 06:09 Dexamethasone Sod Phos Inj 4 Mg/Ml Vial IV PUSH 4 mg Q6HR ERNESTINE Administration Dextrose 12.5 gm 11/24/24 12:04 Dextrose 50% 25 Gm/50 Ml Syringe IV PUSH PRN PRN Hypoglycemia Protocol Docusate Sodium 100 mg 11/25/24 09:00 11/25/24 17:50 Docusate Sodium 100 Mg Capsule PO Not Given Q12HR ERNESTINE Doxazosin Mesylate 8 mg 11/29/24 21:00 11/29/24 20:39 Doxazosin Mesylate 4 Mg Tablet FEED TUBE 8 mg QHS ERNESTINE Administration Fluticasone Propionate 2 spray 11/25/24 10:07 Fluticasone Propionate 0.05% Na Spr 16 Gm Btl (*Bkc) NASAL DAILY PRN sinus symptoms Glucagon 1 mg 11/24/24 12:04 Glucagon For Inj 1 Mg Vial IM PRN PRN Hypoglycemia Protocol Glucose 15 gm 11/24/24 12:04 Glucose Oral Gel 15 Gm Of Glucse In 37.5 Gm Tube PO PRN PRN Hypoglycemia Protocol Hydralazine HCl 10 mg 11/29/24 12:00 11/30/24 09:20 Hydralazine Hcl 20 Mg/Ml Vial IV PUSH 10 mg Q8H PRN Administration Hypertension Dextrose 1,000 mls @ 100 mls/hr 11/24/24 12:04 Dextrose 5% 1,000 Ml IVPB PRN PRN Hypoglycemia Protocol Insulin Aspart 2 - 5 units 11/27/24 00:00 11/30/24 06:11 Insulin Aspart (*Bkc) 100 Units/Ml SUB-Q Not Given Q6HR [facility] Protocol Insulin Glargine 13 units 11/29/24 21:00 11/29/24 20:42 Insulin Glargine (*Bkc) 100 Units/Ml 0.15 units/kg (13 units) 13 units SUB-Q Administration HS ERNESTINE Loratadine 10 mg 11/29/24 21:00 11/29/24 20:39 Loratadine 10 Mg Tablet FEED TUBE 10 mg QHS ERNESTINE Administration Losartan Potassium 25 mg 11/30/24 09:00 11/30/24 09:21 Losartan Potassium 25 Mg Tablet FEED TUBE Not Given DAILY [facility] Magnesium Oxide 400 mg 11/25/24 10:05 11/25/24 17:50 Magnesium Oxide 400 Mg Tablet PO Not Given DAILY [facility] Morphine Sulfate 2 mg 11/25/24 08:38 11/29/24 05:13 Morphine Sulfate (*Crx) 2 Mg/Ml Inj IV PUSH 2 mg Q2H PRN Administration Pain Rated 7-10 Ondansetron HCl 4 mg 11/25/24 08:38 Ondansetron Inj 4 Mg/2 Ml Vial IV PUSH Q8H PRN Nausea And Vomiting Pantoprazole Sodium 40 mg 11/23/24 21:00 11/30/24 09:20 Pantoprazole Sodium Iv 40 Mg Vial IV PUSH 40 mg Q12HR ERNESTINE Administration Senna/Docusate Sodium 1 tab 11/25/24 08:38 Senna/Docusate Sodium Tablet PO HS PRN Constipation Tacrolimus 1 mg 11/29/24 21:00 11/30/24 09:21 Tacrolimus 0.5 Mg Capsule FEED TUBE Not Given Q12HR [facility] Radiology Results: ITS Impressions Soft Tissue Neck CT 11/23/24 20:12 IMPRESSION: Perioperative appearance of the neck on postoperative day 3 after anterior approach for cervical spine fusion, as detailed above. Brain MRI 11/26/24 10:29 IMPRESSION: 1. No evidence of acute infarct seen. 2. 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 Follow-up advised. 3. Susceptibility artifact in the aqueduct of [place] which may be hemorrhagic. Follow-up advised. Modified Barium Swallow 11/27/24 12:15 IMPRESSION: Recurrent prompt laryngeal penetration or aspiration after the swallow of residue in the piriform sinus. Please correlate with speech pathologist findings and specific feeding recommendations. Labs Labs: Laboratory Results - last 24 hr 11/29/24 11/29/24 11/29/24 11:44 16:43 20:39 WBC RBC Hgb Hct MCV MCH MCHC RDW Plt Count MPV % Immature Plt Fraction Sodium Potassium Chloride Carbon Dioxide Anion Gap BUN Creatinine Estim Creat Clear Calc Estimated GFR Glucose POC Capillary Glucose 263 H 228 H 238 H Calcium Magnesium Total Bilirubin AST ALT Alkaline Phosphatase Total Protein Albumin 11/30/24 11/30/24 00:41 05:32 WBC 5.6 RBC 4.69 Hgb 14.3 Hct 42.6 MCV 90.8 MCH 30.5 MCHC 33.6 RDW 11.9 Plt Count 59 L MPV 12.1 H % Immature Plt Fraction 6.6 Sodium 139 Potassium 3.9 Chloride 99 Carbon Dioxide 34 H Anion Gap 6 BUN 31 H Creatinine 0.82 Estim Creat Clear Calc 81 Estimated GFR > 60 Glucose 181 H POC Capillary Glucose 216 H Calcium 8.7 Magnesium 2.1 Total Bilirubin 0.7 AST 22 ALT 27 Alkaline Phosphatase 53 Total Protein 5.0 L Albumin 3.1 L Quality VTE Prophylaxis VTE prophylaxis: mechanical ordered
[2024-11-30 12:32] LABS: Glucose Point of Care 263 mg/dl (65-105)
--- NOTE | 2024-11-30 13:08 | PC.NURSE ---
Patient off of unit to [facility] [place]
--- NOTE | 2024-11-30 13:55 | P.PNNEUSUR_ITS ---
Progress Note: A&P Assessment and Plan (1) Status post cervical spinal fusion: Code(s): Z98.1 - Arthrodesis status Status: Acute Plan Assessment: Status post seroma evacuation on 11/24 status post ACDF on 11/20. Failed barium swallow 11/27. Plan: -Barium swallow today -Speech therapy for diet advancement -NG tube per Medicine -Okay to discharge from neurosurgery perspective once swallowing is improved Time Spent With Patient Time with patient: less than 15 minutes Subjective Date/time seen: 11/30/24 13:55 Interval history: Patient is status post seroma evacuation November 24 s/p ACDF on 11/20. He is doing well today. He denies any significant pain. States that he is able to swallow water now. He does endorse coughing from irritation from NG tube but denies any choking. States that he is scheduled to get another barium swallow today. Review of Systems Review of Systems: All systems reviewed & are unremarkable except as noted in HPI and below Exam Narrative: A&O x4 Incisions clean, dry, and intact. No erythema, warmth, or drainage. Minimal incisional edema. Upper extremity strength and sensation intact. NG tube in place. Objective Data Vital Signs Vital Signs: Vital Signs - 24 hr 11/29/24 16:00 11/29/24 16:20 11/29/24 20:00 Temperature 98.6 F Pulse Rate 73 81 Respiratory Rate 18 Blood Pressure 169/84 H Pulse Oximetry 100 Oxygen Delivery Room Air 11/29/24 20:00 11/29/24 21:50 11/30/24 00:00 Temperature 97.1 F L Pulse Rate 83 77 72 Respiratory Rate 20 Blood Pressure 167/89 H Pulse Oximetry 98 Oxygen Delivery 11/30/24 01:26 11/30/24 04:00 11/30/24 06:00 Temperature 97.0 F L 97.0 F L Pulse Rate 60 61 61 Respiratory Rate 18 20 Blood Pressure 167/74 H 168/73 H Pulse Oximetry 97 99 Oxygen Delivery 11/30/24 08:08 11/30/24 09:20 11/30/24 12:03 Temperature 97.3 F L 97.2 F L Pulse Rate 64 66 Respiratory Rate 16 17 Blood Pressure 189/87 H 131/66 Pulse Oximetry 99 99 Oxygen Delivery Room Air Intake/Output Intake/Output: Intake & Output 11/27/24 11/28/24 11/29/24 11/30/24 23:59 23:59 23:59 23:59 Intake Total 997.9 1142 6676 701 Output Total 520 962 7208 Balance 197.9 545 7414 -299 Meds/Results Medications: Active Medications Generic Name Dose Route Start Last Admin Trade Name Freq PRN Reason Stop Dose Admin Acetaminophen 650 mg 11/25/24 14:37 Acetaminophen 650 Mg Suppository RECTAL Q6H PRN Mild Pain (1-3) or Fever Hydrocodone Bitart/Acetaminophen 1 tab 11/25/24 08:38 Hydrocodone/Acetaminophen (*Crx) 5-325 Mg Tablet PO Q4H PRN Mild Pain (1-3) Al Hydrox/Mg Hydrox/Simethicone 20 ml 11/25/24 08:33 Mag Hydrox/Al Hydrox/Simeth 30 Ml Udc PO Q4H PRN Indigestion/Heartburn Albuterol 2 puff 11/24/24 13:34 11/26/24 06:30 Albuterol Sulfate (*Sp) Aerosol 1 Puff INHALATION 2 puff Q6HRT PRN Administration Shortness Of Breath Amlodipine Besylate 10 mg 11/30/24 09:00 11/30/24 09:21 Amlodipine Besylate 10 Mg Tablet FEED TUBE Not Given DAILY ERNESTINE Bisacodyl 10 mg 11/25/24 08:33 Bisacodyl 10 Mg Suppository RECTAL DAILY PRN Constipation Carvedilol 25 mg 11/29/24 21:00 11/30/24 09:21 Carvedilol 25 Mg Tablet FEED TUBE Not Given Q12HR ERNESTINE Cyclobenzaprine HCl 10 mg 11/25/24 09:56 Cyclobenzaprine Hcl 10 Mg Tablet PO TID PRN muscle spasm Dexamethasone Sodium Phosphate 4 mg 11/24/24 00:00 11/30/24 12:05 Dexamethasone Sod Phos Inj 4 Mg/Ml Vial IV PUSH 4 mg Q6HR ERNESTINE Administration Dextrose 12.5 gm 11/24/24 12:04 Dextrose 50% 25 Gm/50 Ml Syringe IV PUSH PRN PRN Hypoglycemia Protocol Docusate Sodium 100 mg 11/25/24 09:00 11/25/24 17:50 Docusate Sodium 100 Mg Capsule PO Not Given Q12HR ERNESTINE Doxazosin Mesylate 8 mg 11/29/24 21:00 11/29/24 20:39 Doxazosin Mesylate 4 Mg Tablet FEED TUBE 8 mg QHS ERNESTINE Administration Fluticasone Propionate 2 spray 11/25/24 10:07 Fluticasone Propionate 0.05% Na Spr 16 Gm Btl (*Bkc) NASAL DAILY PRN sinus symptoms Glucagon 1 mg 11/24/24 12:04 Glucagon For Inj 1 Mg Vial IM PRN PRN Hypoglycemia Protocol Glucose 15 gm 11/24/24 12:04 Glucose Oral Gel 15 Gm Of Glucse In 37.5 Gm Tube PO PRN PRN Hypoglycemia Protocol Hydralazine HCl 10 mg 11/29/24 12:00 11/30/24 09:20 Hydralazine Hcl 20 Mg/Ml Vial IV PUSH 10 mg Q8H PRN Administration Hypertension Dextrose 1,000 mls @ 100 mls/hr 11/24/24 12:04 Dextrose 5% 1,000 Ml IVPB PRN PRN Hypoglycemia Protocol Insulin Aspart 2 - 5 units 11/27/24 00:00 11/30/24 12:10 Insulin Aspart (*Bkc) 100 Units/Ml SUB-Q 3 units Q6HR ERNESTINE Administration Protocol Insulin Glargine 13 units 11/29/24 21:00 11/29/24 20:42 Insulin Glargine (*Bkc) 100 Units/Ml 0.15 units/kg (13 units) 13 units SUB-Q Administration HS ERNESTINE Loratadine 10 mg 11/29/24 21:00 11/29/24 20:39 Loratadine 10 Mg Tablet FEED TUBE 10 mg QHS ERNESTINE Administration Losartan Potassium 25 mg 11/30/24 09:00 11/30/24 09:21 Losartan Potassium 25 Mg Tablet FEED TUBE Not Given DAILY ERNESTINE Magnesium Oxide 400 mg 11/25/24 10:05 11/25/24 17:50 Magnesium Oxide 400 Mg Tablet PO Not Given DAILY ERNESTINE Morphine Sulfate 2 mg 11/25/24 08:38 11/29/24 05:13 Morphine Sulfate (*Crx) 2 Mg/Ml Inj IV PUSH 2 mg Q2H PRN Administration Pain Rated 7-10 Ondansetron HCl 4 mg 11/25/24 08:38 Ondansetron Inj 4 Mg/2 Ml Vial IV PUSH Q8H PRN Nausea And Vomiting Pantoprazole Sodium 40 mg 11/23/24 21:00 11/30/24 09:20 Pantoprazole Sodium Iv 40 Mg Vial IV PUSH 40 mg Q12HR ERNESTINE Administration Senna/Docusate Sodium 1 tab 11/25/24 08:38 Senna/Docusate Sodium Tablet PO HS PRN Constipation Tacrolimus 1 mg 11/29/24 21:00 11/30/24 09:21 Tacrolimus 0.5 Mg Capsule FEED TUBE Not Given Q12HR [facility] Radiology Results: ITS Impressions Soft Tissue Neck CT 11/23/24 20:12 IMPRESSION: Perioperative appearance of the neck on postoperative day 3 after anterior approach for cervical spine fusion, as detailed above. Brain MRI 11/26/24 10:29 IMPRESSION: 1. No evidence of acute infarct seen. 2. 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 Follow-up advised. 3. Susceptibility artifact in the aqueduct [place] which may be hemorrhagic. Follow-up advised. Labs Labs: Laboratory Results - last 24 hr 11/29/24 11/29/24 11/30/24 16:43 20:39 00:41 WBC RBC Hgb Hct MCV MCH MCHC RDW Plt Count MPV % Immature Plt Fraction Sodium Potassium Chloride Carbon Dioxide Anion Gap BUN Creatinine Estim Creat Clear Calc Estimated GFR Glucose POC Capillary Glucose 228 H 238 H 216 H Calcium Magnesium Total Bilirubin AST ALT Alkaline Phosphatase Total Protein Albumin 11/30/24 11/30/24 05:32 12:06 WBC 5.6 RBC 4.69 Hgb 14.3 Hct 42.6 MCV 90.8 MCH 30.5 MCHC 33.6 RDW 11.9 Plt Count 59 L MPV 12.1 H % Immature Plt Fraction 6.6 Sodium 139 Potassium 3.9 Chloride 99 Carbon Dioxide 34 H Anion Gap 6 BUN 31 H Creatinine 0.82 Estim Creat Clear Calc 81 Estimated GFR > 60 Glucose 181 H POC Capillary Glucose 263 H Calcium 8.7 Magnesium 2.1 Total Bilirubin 0.7 AST 22 ALT 27 Alkaline Phosphatase 53 Total Protein 5.0 L Albumin 3.1 L
--- NOTE | 2024-11-30 16:55 | PC.NURSE ---
RN called hospitalist Shari and informed her that patient no longer has dobhoff access.
[2024-11-30 17:33] LABS: Glucose Point of Care 233 mg/dl (65-105)
[2024-11-30] MEDS: DEXTROSE 5%/0.9% SOD CHL 1,000 ML 125 ML IV CONT (17:54)
[2024-11-30] MEDS: MORPHINE SULFATE (*CRX) 2 MG/ML INJ IV PUSH (20:08)
[2024-11-30] MEDS: INSULIN GLARGINE (*BKC) 100 UNITS/ML 13 UNITS SUB-Q (20:22)
[2024-12-01 00:35] VITALS: BP 161/80; PULSE 73; RESP 20; TEMP 36.7; O2SAT 100
[2024-12-01] MEDS: DEXTROSE 5%/0.9% SOD CHL 1,000 ML 125 ML IV CONT ×2 (00:41→05:32)
[2024-12-01] MEDS: INSULIN ASPART (*BKC) 100 UNITS/ML SUB-Q ×2 (00:42→12:58)
[2024-12-01] MEDS: dexAMETHasone SOD PHOS INJ 4 MG/ML VIAL IV PUSH ×4 (00:42→17:47)
[2024-12-01 05:52] LABS: Hematocrit 40.4 % (42.0-52.0); Hemoglobin 13.7 g/dL (14.0-18.0); Immature Platelet Fraction Pct 6.7 % (0.9-11.2); Mean Corpuscular HGB Conc 33.9 g/dl (32-36); Mean Corpuscular Hemoglobin 30.7 pg (26-34); Mean Corpuscular Volume 90.6 fl (80-100); Mean Platelet Volume 11.5 fl (7.4-10.4); Platelet Count Result 71 k/mm3 (150-375); Red Blood Count 4.46 M/mm3 (4.6-6.20); Red Cell Distribution Width 11.9 % (11.5-14.5); White Blood Count 6.3 K/mm3 (4.5-10.0)
[2024-12-01 06:00] VITALS: BP 149/87; PULSE 61; RESP 20; TEMP 36.7; O2SAT 100
[2024-12-01 06:00] LABS: Alanine Aminotransferase 26 U/L (6-50); Alkaline Phosphatase 52 U/L (38-126); Anion Gap 4 mmol/L (4-12); Aspartate Amino Transferase 18 U/L (17-59); Bilirubin,Total 0.8 mg/dL (0.2-1.3); Blood Urea Nitrogen 26 mg/dL (9-20); Calcium 8.2 mg/dL (8.4-10.2); Carbon Dioxide 32 mmol/L (22-30); Chloride 102 mmol/L (98-107); Estimated CRCL calculation 71 ml/min; Estimated Glomerular Filt Rate > 60; Glucose 207 mg/dL (65-110); Magnesium 2.1 mg/dL (1.6-2.3); Potassium 3.8 mmol/L (3.4-5.0); Sodium 138 mmol/L (137-145)
[2024-12-01 06:43] LABS: Glucose Point of Care 187 mg/dl (65-105)
[2024-12-01 06:43] LABS: Glucose Point of Care 249 mg/dl (65-105)
[2024-12-01 06:43] LABS: Glucose Point of Care 224 mg/dl (65-105)
[2024-12-01 08:00] VITALS: BP 153/93; PULSE 71; RESP 16; TEMP 35.8; O2SAT 100
--- NOTE | 2024-12-01 08:05 | PCSTNOTE ---
Please refer to the Modified Barium Swallow Evaluation (MBS) in the EMR. MBS from 11/30/24 The above pt was seen for a 4th modified barium swallow. Recurrent MBS are being completed due to persistent difficulty swallowing since he underwent surgery for a cervical fusion on 11/20.? Previous MBSs revealed severe dysphagia. Aspiration occurred after the swallow of liquids and puree.? Before testing on this date, pt stated he felt it is improving. Vocal quality is good but pt continues to exhibit what appears to be difficulty managing his saliva; pt complained of excess mucous in his throat.? Pt was seated for a lateral view and was given two 4-5ml amounts of thin liquid barium and approximately 3/4 tsp amount of pudding. The oral stages are normal. With the 2 thin liquid trials, trace laryngeal penetration occurred during the swallow & mod pyriform sinus residue after the swallow was exhibited indicative of reduced laryngeal elevation. With a dry swallow, nearly all residual was cleared; only trace remained. After the pudding trial, reduced pharyngeal contraction and reduced tongue base were exhibited as evidenced by max residue at the vallecular and pyriform sinus level. A liquid wash was attempted to clear the residue, but laryngeal penetration and aspiration occurred after the swallow. Pt required a verbal cue to cough and dry swallow to clear the aspiration which only cleared a portion of the aspiration. Impression: Pt continues to present with severe dysphagia. Recommendation: ST noted plans are to perform exercises on Saturday then repeat MBS testing again on Saturday. Pt needs education that this recovery may be a bit longer term and may need PEG tube while he recovers.? At this time, even IF pt can eat a modified diet at discharge it is questionable if he will follow recommendations.? FYI Pt appears to be becoming in denial re the dysphagia as he stated that when he goes home, he will tolerate ice cream just like as if he had his tonsils out.?
[2024-12-01 08:39] LABS: Glucose Point of Care 243 mg/dl (65-105)
[2024-12-01] MEDS: PANTOPRAZOLE SODIUM IV 40 MG VIAL IV PUSH ×2 (08:39→19:54)
--- NOTE | 2024-12-01 09:14 | PM.IMPN ---
Progress Note: A&P Assessment and Plan (1) Dysphagia: Code(s): R13.10 - Dysphagia, unspecified Status: Acute Assessment and Plan: Patient post-op day 4 of C3-4, C4-C5 ACDF it was requested patient stay overnight for observation due to high risk of bleeding secondary thrombocytopenia but patient was adamant about returning home patient presents with difficulty swallowing and anterior neck swelling. CT Neck:Perioperative appearance of the neck on postoperative day 3 after anterior approach for cervical spine fusion Neurosurgery following Continue Dexamethasone q.6 continue PPI b.i.d. NPO as failed modified barium swallow, speech following 11/25/24-Exploratory surgery without evacuation of hematoma and drain placement by neurosurgery 11/25/24-2 units of platelets prior to surgery due to thrombocytopenia was given 11/28/23-failed swallow again. Order placed for Dobhoff with tube feedings 11/28/24-Dobhoff placed yesterday, now on Tube feeding. Plan for Modified barium on Saturday to reassess swallowing. 11/30/24-failed Modified Barium today, will add speech therapy at this time. Will discontinue the steroid today. continue tube feedings via Dobhoff 12/02/23- plan for modified barium tomorrow, continue speech therapy and exercises, continue steroid per Dr. Be request, will start PPN today for nutrition. (2) Thrombocytopenia, unspecified: Code(s): D69.6 - Thrombocytopenia, unspecified Status: Acute Assessment and Plan: Patient with history of liver transplant chronic history of thrombocytopenia Initial platelet count 70>81 11/25/24 s/p transfuse 2 units platelets prior to surgery Plt count 71 today (3) Essential (primary) hypertension: Code(s): I10 - Essential (primary) hypertension Status: Acute Assessment and Plan: continue home medications. hydralazine prn (4) Type 2 diabetes mellitus without complications: Qualifiers: Diabetes mellitus half-way insulin use: without director long term care use Qualified Code(s): E11.9 - Type 2 diabetes mellitus without complications Code(s): E11.9 - Type 2 diabetes mellitus without complications Status: Acute Assessment and Plan: Accu-Cheks q6h BG ranging to 03/30/2028 Last Hgb A1C was 6.4 on 08/19/24 low dose sliding scale insulin for NPO patients started hold oral diabetic medications hypoglycemic protocol in place currently on PPN and NPO status will increase Lantus dose today to 16 units (5) Liver transplant recipient: Code(s): Z94.4 - Liver transplant status Status: Acute Assessment and Plan: tacrolimus on hold considering NPO status and Evelyn was dislodged liver enzymes are stable as well as bilirubin. If he does not pass his barium swallow tomorrow he will likely require a G-tube and transfer to tertiary care for ENT services which Dr. Be prefers [facility] Time Spent With Patient Time with patient: 25 - 35 minutes Subjective Date/time seen: 12/01/24 09:14 Interval history: yesterday patient is Dobbhoff fell out according to the bedside nurse. He is still coughing and clearing his throat frequently during my assessment. He denies any new complaints today. Labs reviewed Review of Systems Review of Systems: All systems reviewed & are unremarkable except as noted in HPI and below Exam Narrative: General: no acute distress Neck: surgical incision with dressing in place, drain has been removed, scant serous drainage Respiratory: Lungs clear to auscultation. Currently on room air. No adventitious lung sounds. still coughing and clearing his throat quite often Cardiac: RRR, no murmur, gallops, or friction rubs noted GI: abdomen soft, normoactive bowel sounds : voiding without difficulty Neuro: alert and oriented x4, no deficits Skin: surgical incision to anterior neck clean dry intact, well-approximated Objective Data Vital Signs Vital Signs: Vital Signs - 24 hr 11/30/24 09:20 11/30/24 12:03 11/30/24 17:14 Temperature 97.2 F L 97.5 F L Pulse Rate 66 70 Respiratory Rate 17 16 Blood Pressure 131/66 137/75 Pulse Oximetry 99 100 Oxygen Delivery Room Air 11/30/24 20:00 11/30/24 20:35 12/01/24 00:35 Temperature 97.1 F L 98.0 F Pulse Rate 68 73 Respiratory Rate 20 20 Blood Pressure 180/76 H 161/80 H Pulse Oximetry 98 100 Oxygen Delivery Room Air 12/01/24 06:00 12/01/24 08:00 12/01/24 08:42 Temperature 98.0 F 96.5 F L Pulse Rate 61 71 Respiratory Rate 20 16 Blood Pressure 149/87 H 153/93 H Pulse Oximetry 100 100 Oxygen Delivery Room Air Intake/Output Intake/Output: Intake & Output 11/28/24 11/29/24 11/30/24 12/01/24 23:59 23:59 23:59 23:59 Intake Total 1145 2383 1180 1454.2 Output Total 600 1000 1600 Balance 545 2383 180 -145.8 Meds/Results Medications: Active Medications Generic Name Dose Route Start Last Admin Trade Name Freq PRN Reason Stop Dose Admin Acetaminophen 650 mg 11/25/24 14:37 Acetaminophen 650 Mg Suppository RECTAL Q6H PRN Mild Pain (1-3) or Fever Hydrocodone Bitart/Acetaminophen 1 tab 11/25/24 08:38 Hydrocodone/Acetaminophen (*Crx) 5-325 Mg Tablet PO Q4H PRN Mild Pain (1-3) Al Hydrox/Mg Hydrox/Simethicone 20 ml 11/25/24 08:33 Mag Hydrox/Al Hydrox/Simeth 30 Ml Udc PO Q4H PRN Indigestion/Heartburn Albuterol 2 puff 11/24/24 13:34 11/26/24 06:30 Albuterol Sulfate (*Sp) Aerosol 1 Puff INHALATION 2 puff Q6HRT PRN Administration Shortness Of Breath Amlodipine Besylate 10 mg 11/30/24 09:00 12/01/24 08:32 Amlodipine Besylate 10 Mg Tablet FEED TUBE Not Given DAILY ERNESTINE Bisacodyl 10 mg 11/25/24 08:33 Bisacodyl 10 Mg Suppository RECTAL DAILY PRN Constipation Carvedilol 25 mg 11/29/24 21:00 12/01/24 08:33 Carvedilol 25 Mg Tablet FEED TUBE Not Given Q12HR ERNESTINE Cyclobenzaprine HCl 10 mg 11/25/24 09:56 Cyclobenzaprine Hcl 10 Mg Tablet PO TID PRN muscle spasm Dexamethasone Sodium Phosphate 4 mg 11/30/24 18:00 12/01/24 05:32 Dexamethasone Sod Phos Inj 4 Mg/Ml Vial IV PUSH 4 mg Q6HR ERNESTINE Administration Dextrose 12.5 gm 11/24/24 12:04 Dextrose 50% 25 Gm/50 Ml Syringe IV PUSH PRN PRN Hypoglycemia Protocol Docusate Sodium 100 mg 11/25/24 09:00 11/25/24 17:50 Docusate Sodium 100 Mg Capsule PO Not Given Q12HR ERNESTINE Doxazosin Mesylate 8 mg 11/29/24 21:00 12/01/24 03:25 Doxazosin Mesylate 4 Mg Tablet FEED TUBE Not Given QHS REPLACED BY [facility] Fluticasone Propionate 2 spray 11/25/24 10:07 Fluticasone Propionate 0.05% Na Spr 16 Gm Btl (*Bkc) NASAL DAILY PRN sinus symptoms Glucagon 1 mg 11/24/24 12:04 Glucagon For Inj 1 Mg Vial IM PRN PRN Hypoglycemia Protocol Glucose 15 gm 11/24/24 12:04 Glucose Oral Gel 15 Gm Of Glucse In 37.5 Gm Tube PO PRN PRN Hypoglycemia Protocol Hydralazine HCl 10 mg 11/29/24 12:00 11/30/24 20:26 Hydralazine Hcl 20 Mg/Ml Vial IV PUSH 10 mg Q8H PRN Administration Hypertension Dextrose 1,000 mls @ 100 mls/hr 11/24/24 12:04 Dextrose 5% 1,000 Ml IVPB PRN PRN Hypoglycemia Protocol Dextrose/Sodium Chloride 1,000 mls @ 125 mls/hr 11/30/24 17:00 12/01/24 05:32 Dextrose 5% Sodium Chloride 0.9% IV CONT 125 mls/hr .Q8H ERNESTINE Administration Insulin Aspart 2 - 5 units 11/27/24 00:00 12/01/24 06:31 Insulin Aspart (*Bkc) 100 Units/Ml SUB-Q Not Given Q6HR REPLACED BY [facility] Protocol Insulin Glargine 13 units 11/29/24 21:00 11/30/24 20:22 Insulin Glargine (*Bkc) 100 Units/Ml 0.15 units/kg (13 units) 13 units SUB-Q Administration HS REPLACED BY [facility] Loratadine 10 mg 11/29/24 21:00 12/01/24 03:25 Loratadine 10 Mg Tablet FEED TUBE Not Given QHS REPLACED BY [facility] Losartan Potassium 25 mg 11/30/24 09:00 12/01/24 08:33 Losartan Potassium 25 Mg Tablet FEED TUBE Not Given DAILY REPLACED BY [facility] Magnesium Oxide 400 mg 11/25/24 10:05 11/25/24 17:50 Magnesium Oxide 400 Mg Tablet PO Not Given DAILY REPLACED BY [facility] Morphine Sulfate 2 mg 11/25/24 08:38 11/30/24 20:08 Morphine Sulfate (*Crx) 2 Mg/Ml Inj IV PUSH 2 mg Q2H PRN Administration Pain Rated 7-10 Ondansetron HCl 4 mg 11/25/24 08:38 Ondansetron Inj 4 Mg/2 Ml Vial IV PUSH Q8H PRN Nausea And Vomiting Pantoprazole Sodium 40 mg 11/23/24 21:00 12/01/24 08:39 Pantoprazole Sodium Iv 40 Mg Vial IV PUSH 40 mg Q12HR ERNESTINE Administration Senna/Docusate Sodium 1 tab 11/25/24 08:38 Senna/Docusate Sodium Tablet PO HS PRN Constipation Tacrolimus 1 mg 11/29/24 21:00 12/01/24 08:33 Tacrolimus 0.5 Mg Capsule FEED TUBE Not Given Q12HR REPLACED BY [facility] Radiology Results: ITS Impressions Soft Tissue Neck CT 11/23/24 20:12 IMPRESSION: Perioperative appearance of the neck on postoperative day 3 after anterior approach for cervical spine fusion, as detailed above. Brain MRI 11/26/24 10:29 IMPRESSION: 1. No evidence of acute infarct seen. 2. 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 Follow-up advised. 3. Susceptibility artifact in the aqueduct of [place] which may be hemorrhagic. Follow-up advised. Modified Barium Swallow 11/30/24 15:04 IMPRESSION: 1. Aspiration. 2. Please refer to the speech therapy report for recommendations. Labs Labs: Laboratory Results - last 24 hr 11/30/24 11/30/24 11/30/24 12:06 17:15 20:22 WBC RBC Hgb Hct MCV MCH MCHC RDW Plt Count MPV % Immature Plt Fraction Sodium Potassium Chloride Carbon Dioxide Anion Gap BUN Creatinine Estim Creat Clear Calc Estimated GFR Glucose POC Capillary Glucose 263 H 233 H 224 H Calcium Magnesium Total Bilirubin AST ALT Alkaline Phosphatase Total Protein Albumin 12/01/24 12/01/24 12/01/24 00:25 05:26 06:25 WBC 6.3 RBC 4.46 L Hgb 13.7 L Hct 40.4 L MCV 90.6 MCH 30.7 MCHC 33.9 RDW 11.9 Plt Count 71 L MPV 11.5 H % Immature Plt Fraction 6.7 Sodium 138 Potassium 3.8 Chloride 102 Carbon Dioxide 32 H Anion Gap 4 BUN 26 H Creatinine 0.95 Estim Creat Clear Calc 71 Estimated GFR > 60 Glucose 207 H POC Capillary Glucose 249 H 187 H Calcium 8.2 L Magnesium 2.1 Total Bilirubin 0.8 AST 18 ALT 26 Alkaline Phosphatase 52 Total Protein 5.0 L Albumin 3.0 L 12/01/24 08:26 WBC RBC Hgb Hct MCV MCH MCHC RDW Plt Count MPV % Immature Plt Fraction Sodium Potassium Chloride Carbon Dioxide Anion Gap BUN Creatinine Estim Creat Clear Calc Estimated GFR Glucose POC Capillary Glucose 243 H Calcium Magnesium Total Bilirubin AST ALT Alkaline Phosphatase Total Protein Albumin Quality VTE Prophylaxis VTE prophylaxis: mechanical ordered
[2024-12-01 10:49] LABS: Transferrin 159 mg/dL (206-381)
--- NOTE | 2024-12-01 10:50 | PCNFU ---
Nutrition Follow-Up Complete: Swallowing Difficulties as related to Dysphagia as evidenced by failed MBS 11/24 and 11/25. Goal: Meet estimated nutritional needs Patient has limited progress towards goal. We will continue current goal. Pt current nutrition is NPO. Nutrition recommendation: Clinimix E 4.25/5 at 80 ml/hr. Last recorded weight is 88.4 kg, no new weight to report. Patient states weight has been around 190 ibs. Bowel Motility:+BM reported 11/25 Labs Reviewed:Glu 207, BUN 26, Alb 3.0 Meds Noted: Clinimix E 4.25/5 at 80 ml/hr with 250 ml 20% Lipid Emulsion, Protonix. Skin: WNL Additional Notes: Dobbhoff fell out. Plans to leave out and perform MBS tomorrow. Discussed Parental Nutrition with Hospitalist and patient today. Plans to start PPN which will provide 1153 kcal/82 gm protein. Will follow up on MBS tomorrow for further plan of care. Will monitor weight, labs, skin, diet orders, meds every Saturday and Saturday.
[2024-12-01 12:00] VITALS: BP 157/75; PULSE 62; RESP 16; TEMP 35.6; O2SAT 100
[2024-12-01 12:06] LABS: Glucose Point of Care 228 mg/dl (65-105)
[2024-12-01] MEDS: FAT EMULSIONS IV 20% 250 ML 20.83 ML IVPB (12:57)
[2024-12-01] MEDS: AMINO ACIDS 4.25%/D5W/LYTES/CA 1,000 ML 80 ML IV CONT (12:57)
[2024-12-01 16:16] VITALS: BP 160/75; PULSE 55; RESP 16; TEMP 36.2; O2SAT 100
[2024-12-01] MEDS: MORPHINE SULFATE (*CRX) 2 MG/ML INJ IV PUSH (16:22)
[2024-12-01] MEDS: INSULIN GLARGINE (*BKC) 100 UNITS/ML 16 UNITS SUB-Q (19:55)
[2024-12-01 20:00] VITALS: BP 183/88; PULSE 57; RESP 18; TEMP 35.9; O2SAT 100
[2024-12-01 20:01] LABS: Glucose Point of Care 223 mg/dl (65-105)
[2024-12-02] VITALS (7 sets, daily range): BP systolic 159–183; BP diastolic 70–82; PULSE 51–62; RESP 16–20; TEMP 36.1–36.5; O2SAT 95–100
[2024-12-02] MEDS: dexAMETHasone SOD PHOS INJ 4 MG/ML VIAL IV PUSH ×5 (01:00→23:06)
[2024-12-02] MEDS: INSULIN ASPART (*BKC) 100 UNITS/ML SUB-Q ×2 (01:00→23:04)
[2024-12-02] MEDS: AMINO ACIDS 4.25%/D5W/LYTES/CA 1,000 ML 80 ML IV CONT ×2 (01:01→17:18)
[2024-12-02 05:57] LABS: Hematocrit 43.2 % (42.0-52.0); Immature Platelet Fraction Pct 7.4 % (0.9-11.2); Mean Corpuscular HGB Conc 32.4 g/dl (32-36); Mean Corpuscular Volume 92.5 fl (80-100); Platelet Count Result 78 k/mm3 (150-375); Red Blood Count 4.67 M/mm3 (4.6-6.20); Red Cell Distribution Width 11.9 % (11.5-14.5); White Blood Count 7.6 K/mm3 (4.5-10.0)
[2024-12-02 06:11] LABS: Alanine Aminotransferase 25 U/L (6-50); Albumin Level 2.9 g/dL (3.5-5.1); Alkaline Phosphatase 48 U/L (38-126); Anion Gap 7 mmol/L (4-12); Aspartate Amino Transferase 18 U/L (17-59); Bilirubin,Total 0.8 mg/dL (0.2-1.3); Blood Urea Nitrogen 28 mg/dL (9-20); Calcium 8.2 mg/dL (8.4-10.2); Carbon Dioxide 24 mmol/L (22-30); Chloride 104 mmol/L (98-107); Estimated CRCL calculation 82 ml/min; Estimated Glomerular Filt Rate > 60; Glucose 173 mg/dL (65-110); Magnesium 2.3 mg/dL (1.6-2.3); Potassium 3.9 mmol/L (3.4-5.0); Sodium 135 mmol/L (137-145); Triglycerides 88 mg/dL (<150)
--- NOTE | 2024-12-02 11:44 | P.PNIM_ITS ---
Progress Note: A&P Assessment and Plan (1) Dysphagia: Code(s): R13.10 - Dysphagia, unspecified Status: Acute Assessment and Plan: Patient post-op day 4 of C3-4, C4-C5 ACDF it was requested patient stay overnig ht for observation due to high risk of bleeding secondary thrombocytopenia but patient was adamant about returning home patient presents with difficulty swallowing and anterior neck swelling. * CT Neck:Perioperative appearance of the neck on postoperative day 3 after anterior approach for cervical spine fusion * Neurosurgery following * Continue Dexamethasone q.6 * continue PPI b.i.d. * NPO as failed modified barium swallow, speech following * 11/25/24-Exploratory surgery without evacuation of hematoma and drain placement by neurosurgery * 11/25/24-2 units of platelets prior to surgery due to thrombocytopenia was given * 11/28/23-failed swallow again. Order placed for Dobhoff with tube feedings * 11/28/24-Dobhoff placed yesterday, now on Tube feeding. Plan for Modified barium on Saturday to reassess swallowing. * 11/30/24-failed Modified Barium today, will add speech therapy at this time. Will discontinue the steroid today. continue tube feedings via Dobhoff * 12/02/23- plan for modified barium tomorrow, continue speech therapy and exercises, continue steroid per Dr. Be request, will start PPN today for nutrition. 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 * GI consult for peg tube placement would recommend EGD to rule out stricture prior * plan to follow-up with ENT O/P (2) Thrombocytopenia, unspecified: Code(s): D69.6 - Thrombocytopenia, unspecified Status: Acute Assessment and Plan: Patient with history of liver transplant chronic history of thrombocytopenia * Initial platelet count 70>81 * 3/19/25 s/p transfuse 2 units platelets prior to surgery * Plt count 71 today (3) Essential (primary) hypertension: Code(s): I10 - Essential (primary) hypertension Status: Acute Assessment and Plan: * continue home medications. * hydralazine prn (4) Type 2 diabetes mellitus without complications: Qualifiers: Diabetes mellitus mcc insulin use: without buttermaker use Qualified Code(s): E11.9 - Type 2 diabetes mellitus without complications Code(s): E11.9 - Type 2 diabetes mellitus without complications Status: Acute Assessment and Plan: * Accu-Cheks q6h * BG ranging to 03/30/2028 * Last Hgb A1C was 6.4 on 08/19/24 * low dose sliding scale insulin for NPO patients started * hold oral diabetic medications * hypoglycemic protocol in place * currently on PPN and NPO status * will increase Lantus dose today to 16 units (5) Liver transplant recipient: Code(s): Z94.4 - Liver transplant status Status: Acute Assessment and Plan: * tacrolimus on hold considering NPO status and Dobbhoff was dislodged * liver enzymes are stable as well as bilirubin. * If he does not pass his barium swallow tomorrow he will likely require a G- tube and transfer [facility] Code status: Full code per patient DVT prophylaxis: SCD's Stress ulcer prophylaxis: Protonix 40 daily PT/OT notes: Ambulatory Disposition: Patient continues admission for dysphasia postop back surgery with an anterior approach also underwent a hematoma evacuation. Plan for peg tube possible EGD to r/o stricture. Will follow-up with ENT O/P Time Spent With Patient Time with patient: 15 - 25 minutes Subjective Date/time seen: 12/02/24 11:44 Interval history: Patient is a 69-year-old male who was admitted for neck swelling post hop back surgery and who underwent evacuation of hematoma but now is having dysphagia with aspiration risk. 12/02/24: Patient with complaints of productive cough and sore throat. Failed MBS patient agreeable to Peg tube, GI consulted for placement may not hurt to do EGD r/o stricture prior to placement. Review of Systems Review of Systems: All systems reviewed & are unremarkable except as noted in HPI and below Exam Narrative: General: no acute distress Neck: surgical incision with dressing in place, drain has been removed, scant serous drainage Respiratory: Lungs clear to auscultation. Currently on room air. No adventitious lung sounds. still coughing and clearing his throat quite often Cardiac: RRR, no murmur, gallops, or friction rubs noted GI: abdomen soft, normoactive bowel sounds : voiding without difficulty Neuro: alert and oriented x4, no deficits Skin: surgical incision to anterior neck clean dry intact, well-approximated Objective Data Vital Signs Vital Signs: Vital Signs - 24 hr 12/01/24 12:00 12/01/24 16:16 12/01/24 20:00 Temperature 96.1 F L 97.1 F L 96.6 F L Pulse Rate 62 55 L 57 L Respiratory Rate 16 16 18 Blood Pressure 157/75 H 160/75 H 183/88 H Pulse Oximetry 100 100 100 Oxygen Delivery 12/01/24 20:00 12/02/24 00:00 12/02/24 04:00 Temperature 97 F L 97 F L Pulse Rate 61 51 L Respiratory Rate 18 18 Blood Pressure 173/70 H 177/74 H Pulse Oximetry 95 99 Oxygen Delivery Room Air 12/02/24 08:00 12/02/24 08:00 Temperature 97.3 F L Pulse Rate 62 Respiratory Rate 16 Blood Pressure 167/82 H Pulse Oximetry 100 Oxygen Delivery Room Air Intake/Output Intake/Output: Intake & Output 11/29/24 11/30/24 12/01/24 12/02/24 23:59 23:59 23:59 23:59 Intake Total 2383 1180 1454.2 965.3 Output Total 1000 2000 500 Balance 2383 180 -545.8 465.3 Meds/Results Medications: Active Medications Generic Name Dose Route Start Last Admin Trade Name Freq PRN Reason Stop Dose Admin Acetaminophen 650 mg 11/25/24 14:37 Acetaminophen 650 Mg Suppository RECTAL Q6H PRN Mild Pain (1-3) or Fever Hydrocodone Bitart/Acetaminophen 1 tab 11/25/24 08:38 Hydrocodone/Acetaminophen (*Crx) 5-325 Mg Tablet PO Q4H PRN Mild Pain (1-3) Al Hydrox/Mg Hydrox/Simethicone 20 ml 11/25/24 08:33 Mag Hydrox/Al Hydrox/Simeth 30 Ml Udc PO Q4H PRN Indigestion/Heartburn Albuterol 2 puff 11/24/24 13:34 11/26/24 06:30 Albuterol Sulfate (*Sp) Aerosol 1 Puff INHALATION 2 puff Q6HRT PRN Administration Shortness Of Breath Amlodipine Besylate 10 mg 11/30/24 09:00 12/01/24 08:32 Amlodipine Besylate 10 Mg Tablet FEED TUBE Not Given DAILY ERNESTINE Bisacodyl 10 mg 11/25/24 08:33 Bisacodyl 10 Mg Suppository RECTAL DAILY PRN Constipation Carvedilol 25 mg 11/29/24 21:00 12/01/24 19:28 Carvedilol 25 Mg Tablet FEED TUBE Not Given Q12HR ERNESTINE Cyclobenzaprine HCl 10 mg 11/25/24 09:56 Cyclobenzaprine Hcl 10 Mg Tablet PO TID PRN muscle spasm Dexamethasone Sodium Phosphate 4 mg 11/30/24 18:00 12/02/24 06:34 Dexamethasone Sod Phos Inj 4 Mg/Ml Vial IV PUSH 4 mg Q6HR ERNESTINE Administration Dextrose 12.5 gm 11/24/24 12:04 Dextrose 50% 25 Gm/50 Ml Syringe IV PUSH PRN PRN Hypoglycemia Protocol Docusate Sodium 100 mg 11/25/24 09:00 11/25/24 17:50 Docusate Sodium 100 Mg Capsule PO Not Given Q12HR ERNESTINE Doxazosin Mesylate 8 mg 11/29/24 21:00 12/01/24 19:29 Doxazosin Mesylate 4 Mg Tablet FEED TUBE Not Given QHS ERNESTINE Fluticasone Propionate 2 spray 11/25/24 10:07 Fluticasone Propionate 0.05% Na Spr 16 Gm Btl (*Bkc) NASAL DAILY PRN sinus symptoms Glucagon 1 mg 11/24/24 12:04 Glucagon For Inj 1 Mg Vial IM PRN PRN Hypoglycemia Protocol Glucose 15 gm 11/24/24 12:04 Glucose Oral Gel 15 Gm Of Glucse In 37.5 Gm Tube PO PRN PRN Hypoglycemia Protocol Hydralazine HCl 10 mg 11/29/24 12:00 11/30/24 20:26 Hydralazine Hcl 20 Mg/Ml Vial IV PUSH 10 mg Q8H PRN Administration Hypertension Dextrose 1,000 mls @ 100 mls/hr 11/24/24 12:04 Dextrose 5% 1,000 Ml IVPB PRN PRN Hypoglycemia Protocol Dextrose 1,000 mls @ 50 mls/hr 12/01/24 09:51 Dextrose 10% IV CONT .Q20H PRN if PN is interrupted Amino Acids/Electrolytes/Dextrose 1,000 mls @ 80 mls/hr 12/01/24 11:30 12/02/24 01:01 Clinimix E 4.25%/5% Solution IV CONT 80 mls/hr .[id number] ERNESTINE Administration Protocol Fat Emulsion Intravenous 250 mls @ 20.833 mls/hr 12/01/24 11:30 12/01/24 12:57 Lipids 20% IVPB 20.83 mls/hr Q24H ERNESTINE Administration Insulin Aspart 2 - 5 units 11/27/24 00:00 12/02/24 06:33 Insulin Aspart (*Bkc) 100 Units/Ml SUB-Q Not Given Q6HR [facility] Protocol Insulin Glargine 16 units 12/01/24 21:00 12/01/24 19:55 Insulin Glargine (*Bkc) 100 Units/Ml SUB-Q 16 units HS ERNESTINE Administration Loratadine 10 mg 11/29/24 21:00 12/01/24 19:30 Loratadine 10 Mg Tablet FEED TUBE Not Given QHS [facility] Losartan Potassium 25 mg 11/30/24 09:00 12/01/24 08:33 Losartan Potassium 25 Mg Tablet FEED TUBE Not Given DAILY [facility] Magnesium Oxide 400 mg 11/25/24 10:05 11/25/24 17:50 Magnesium Oxide 400 Mg Tablet PO Not Given DAILY [facility] Morphine Sulfate 2 mg 11/25/24 08:38 12/01/24 16:22 Morphine Sulfate (*Crx) 2 Mg/Ml Inj IV PUSH 2 mg Q2H PRN Administration Pain Rated 7-10 Ondansetron HCl 4 mg 11/25/24 08:38 Ondansetron Inj 4 Mg/2 Ml Vial IV PUSH Q8H PRN Nausea And Vomiting Pantoprazole Sodium 40 mg 11/23/24 21:00 12/01/24 19:54 Pantoprazole Sodium Iv 40 Mg Vial IV PUSH 40 mg Q12HR [facility] Administration Phenol 1 spray 12/02/24 11:11 Phenol/Sod Pheno [place] (*Bkc) MUCOUS MEM PRN PRN Sore Throat Senna/Docusate Sodium 1 tab 11/25/24 08:38 Senna/Docusate Sodium Tablet PO HS PRN Constipation Tacrolimus 1 mg 11/29/24 21:00 12/01/24 19:30 Tacrolimus 0.5 Mg Capsule FEED TUBE Not Given Q12HR [facility] Radiology Results: ITS Impressions Soft Tissue Neck CT 11/23/24 20:12 IMPRESSION: Perioperative appearance of the neck on postoperative day 3 after anterior approach for cervical spine fusion, as detailed above. Brain MRI 11/26/24 10:29 IMPRESSION: 1. No evidence of acute infarct seen. 2. 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 Follow-up advised. 3. Susceptibility artifact in the aqued[place] which may be hemorrhagic. Follow-up advised. Modified Barium Swallow 11/30/24 15:04 IMPRESSION: 1. Aspiration. 2. Please refer to the speech therapy report for recommendations. Labs Labs: Laboratory Results - last 24 hr 12/01/24 12/01/24 12/02/24 11:59 19:50 05:20 WBC 7.6 RBC 4.67 Hgb 14.0 Hct 43.2 MCV 92.5 MCH 30.0 MCHC 32.4 RDW 11.9 Plt Count 78 L MPV 12.0 H % Immature Plt Fraction 7.4 Sodium 135 L Potassium 3.9 Chloride 104 Carbon Dioxide 24 Anion Gap 7 BUN 28 H Creatinine 0.81 Estim Creat Clear Calc 82 Estimated GFR > 60 Glucose 173 H POC Capillary Glucose 228 H 223 H Calcium 8.2 L Magnesium 2.3 Total Bilirubin 0.8 AST 18 ALT 25 Alkaline Phosphatase 48 Total Protein 5.0 L Albumin 2.9 L Triglycerides 88 Quality VTE Prophylaxis VTE prophylaxis: mechanical ordered -Patient's previous records reviewed on admission -ER notes reviewed in detail on admission -discussed all findings and current treatment plan with patient/Family/POA -Consultations reviewed for recommendations -Patient's disposition for safe discharge discussed with transplant case manager Dictation performed by [employer] direct speech recognition software, therefore [employer] professional variants and typographical errors may occur. Hospitalist MIPS Advance Care Plan I have confirmed that the patient's Advanced Care Plan is present, code status is documented, or surrogate decision maker is listed in patient medical record.: Yes Medication Reconciliation I have utilized all available resources to obtain, update and review the patients current medications (includes all prescriptions, OTC, herbals, cannabis, and nutritional supplements).: Yes The patient is not eligible for med reconciliation; the patient is in a emergent medical situation where delaying treatment would jeopardize the patients health.: No
[2024-12-02 11:59] LABS: Glucose Point of Care 238 mg/dl (65-105)
[2024-12-02 11:59] LABS: Glucose Point of Care 194 mg/dl (65-105)
[2024-12-02] MEDS: PHENOL/SOD PHENO SPRAY CHERRY (*BKC) 1 SPRAY MUCOUS MEM (12:02)
[2024-12-02] MEDS: PANTOPRAZOLE SODIUM IV 40 MG VIAL IV PUSH ×2 (12:02→20:30)
[2024-12-02] MEDS: FAT EMULSIONS IV 20% 250 ML 20.83 ML IVPB (12:06)
--- NOTE | 2024-12-02 13:52 | PCSTNOTE ---
Please refer to the Modified Barium Swallow Evaluation in the EMR. The above pt was seen for a 5th modified barium swallow. Recurrent MBS are being completed due to persistent difficulty swallowing since he underwent surgery for a cervical fusion on 11/20.? Previous MBSs revealed severe dysphagia with aspiration after the swallow of liquids and puree.? Before testing on this date, pt continues to state he feels like he is improving but is brought into x-ray carrying an emesis basin which he is spitting into as he cannot manage/swallow his secretions. Vocal quality is good/occasionally wet. Pt now stated that he wonders if he swallowed like this before the surgery.? Pt was seated for a lateral view and presented with 5ml thin liquid barium and approximately 3/4 tsp of pudding. The oral stages are normal. With the thin liquid, no penetration occurred during the swallow, but moderate pyriform sinus residue was exhibited after the swallow which spilled into the laryngeal vestibule and was aspirated. Dry swallows and cough did not clear the residual or aspirate. After the pudding trial, reduced pharyngeal contraction and reduced tongue base were exhibited as evidenced by min residue at the vallecular and max pyriform sinus level. Reduced laryngeal elevation was also exhibited as evidenced by laryngeal penetration during the swallow. Aspiration occurred after the swallow. Pt exhibited a cough reflex & dry swallows but they did not clear the aspiration or the residual. ? Impression: Pt continues to present with severe dysphagia. Recommendation: Continue ST for dysphagia therapy.? Consider more permanent means of non-oral nutrition.
--- NOTE | 2024-12-02 14:10 | PCDIET ---
Patient had 5th MBS today-recommending non oral feedings. Spoke with Hospitalist today regarding nutrition, plans to discuss PEG with patient today. At this time patient is receiving PPN at 80 ml/hr for nutrition. Tube feeding recommendations: Glucerna 1.2 with goal rate of 70 ml/hr with Flush of 100 ml q 4 hours. Following.
[2024-12-02 16:47] LABS: Glucose Point of Care 189 mg/dl (65-105)
[2024-12-02] MEDS: MORPHINE SULFATE (*CRX) 2 MG/ML INJ IV PUSH (17:32)
--- NOTE | 2024-12-02 17:41 | WPDNEUROSGPN ---
Progress Note: A&P Assessment and Plan (1) Status post cervical spinal fusion: Code(s): Z98.1 - Arthrodesis status Status: Acute (2) Dysphagia: Code(s): R13.10 - Dysphagia, unspecified Status: Acute Plan Unfortunately, he is not making progress with respect to his swallowing ability. He has not been able to eat in nearly 2 weeks. I agree that it is likely in his best interest at this point to proceed with PEG placement. I spoke with Dr. Be who agrees. GI has been consulted by the hospitalist team. There is also a CT neck pending. The patient understands this plan and is eager to have this done as soon as possible. Subjective Date/time seen: 12/02/24 17:41 Interval history: He has unfortunately failed his swallow study again today. He has been in discussions with his other team members about a PEG tube to which he is agreeable. He is understandably eager to get this done and leave the hospital. He has some occasional small amount of drainage from his drain exit site when coughing Review of Systems Review of Systems: All systems reviewed & are unremarkable except as noted in HPI and below Exam Narrative: AOx4 Incision c/d/i, appears flat Moving all extremities well Objective Data Vital Signs Vital Signs: Vital Signs - 24 hr 12/01/24 20:00 12/01/24 20:00 12/02/24 00:00 Temperature 96.6 F L 97 F L Pulse Rate 57 L 61 Respiratory Rate 18 18 Blood Pressure 183/88 H 173/70 H Pulse Oximetry 100 95 Oxygen Delivery Room Air 12/02/24 04:00 12/02/24 08:00 12/02/24 08:00 Temperature 97 F L 97.3 F L Pulse Rate 51 L 62 Respiratory Rate 18 16 Blood Pressure 177/74 H 167/82 H Pulse Oximetry 99 100 Oxygen Delivery Room Air 12/02/24 12:08 12/02/24 16:00 Temperature 97.4 F L 97.2 F L Pulse Rate 52 L 58 L Respiratory Rate 18 16 Blood Pressure 181/81 H 179/80 H Pulse Oximetry 100 100 Oxygen Delivery Intake/Output Intake/Output: Intake & Output 11/29/24 11/30/24 12/01/24 12/02/24 23:59 23:59 23:59 23:59 Intake Total 2383 1180 1454.2 2215.3 Output Total 1000 1999 700 Balance 2383 180 -545.8 1515.3 Meds/Results Medications: Active Medications Generic Name Dose Route Start Last Admin Trade Name Freq PRN Reason Stop Dose Admin Acetaminophen 650 mg 11/25/24 14:37 Acetaminophen 650 Mg Suppository RECTAL Q6H PRN Mild Pain (1-3) or Fever Hydrocodone Bitart/Acetaminophen 1 tab 11/25/24 08:38 Hydrocodone/Acetaminophen (*Crx) 5-325 Mg Tablet PO Q4H PRN Mild Pain (1-3) Al Hydrox/Mg Hydrox/Simethicone 20 ml 11/25/24 08:33 Mag Hydrox/Al Hydrox/Simeth 30 Ml Udc PO Q4H PRN Indigestion/Heartburn Albuterol 2 puff 11/24/24 13:34 11/26/24 06:30 Albuterol Sulfate (*Sp) Aerosol 1 Puff INHALATION 2 puff Q6HRT PRN Administration Shortness Of Breath Amlodipine Besylate 10 mg 11/30/24 09:00 12/02/24 11:58 Amlodipine Besylate 10 Mg Tablet FEED TUBE Not Given DAILY ERNESTINE Bisacodyl 10 mg 11/25/24 08:33 Bisacodyl 10 Mg Suppository RECTAL DAILY PRN Constipation Carvedilol 25 mg 11/29/24 21:00 12/02/24 11:58 Carvedilol 25 Mg Tablet FEED TUBE Not Given Q12HR [facility] Cyclobenzaprine HCl 10 mg 11/25/24 09:56 Cyclobenzaprine Hcl 10 Mg Tablet PO TID PRN muscle spasm Dexamethasone Sodium Phosphate 4 mg 11/30/24 18:00 12/02/24 17:18 Dexamethasone Sod Phos Inj 4 Mg/Ml Vial IV PUSH 4 mg Q6HR ERNESTINE Administration Dextrose 12.5 gm 11/24/24 12:04 Dextrose 50% 25 Gm/50 Ml Syringe IV PUSH PRN PRN Hypoglycemia Protocol Docusate Sodium 100 mg 11/25/24 09:00 11/25/24 17:50 Docusate Sodium 100 Mg Capsule PO Not Given Q12HR [facility] Doxazosin Mesylate 8 mg 11/29/24 21:00 12/01/24 19:29 Doxazosin Mesylate 4 Mg Tablet FEED TUBE Not Given QHS [facility] Fluticasone Propionate 2 spray 11/25/24 10:07 Fluticasone Propionate 0.05% Na Spr 16 Gm Btl (*Bkc) NASAL DAILY PRN sinus symptoms Glucagon 1 mg 11/24/24 12:04 Glucagon For Inj 1 Mg Vial IM PRN PRN Hypoglycemia Protocol Glucose 15 gm 11/24/24 12:04 Glucose Oral Gel 15 Gm Of Glucse In 37.5 Gm Tube PO PRN PRN Hypoglycemia Protocol Hydralazine HCl 20 mg 12/02/24 11:51 Hydralazine Hcl 20 Mg/Ml Vial IV PUSH Q6H PRN Hypertension Dextrose 1,000 mls @ 100 mls/hr 11/24/24 12:04 Dextrose 5% 1,000 Ml IVPB PRN PRN Hypoglycemia Protocol Dextrose 1,000 mls @ 50 mls/hr 12/01/24 09:51 Dextrose 10% IV CONT .Q20H PRN if PN is interrupted Amino Acids/Electrolytes/Dextrose 1,000 mls @ 80 mls/hr 12/01/24 11:30 12/02/24 17:18 Clinimix E 4.25%/5% Solution IV CONT 80 mls/hr .[id number] ERNESTINE Administration Protocol Fat Emulsion Intravenous 250 mls @ 20.833 mls/hr 12/01/24 11:30 12/02/24 12:06 Lipids 20% IVPB 20.83 mls/hr Q24H ERNESTINE Administration Insulin Aspart 2 - 5 units 11/27/24 00:00 12/02/24 17:23 Insulin Aspart (*Bkc) 100 Units/Ml SUB-Q Not Given Q6HR ERNESTINE Protocol Insulin Glargine 16 units 12/01/24 21:00 12/01/24 19:55 Insulin Glargine (*Bkc) 100 Units/Ml SUB-Q 16 units HS ERNESTINE Administration Loratadine 10 mg 11/29/24 21:00 12/01/24 19:30 Loratadine 10 Mg Tablet FEED TUBE Not Given QHS ERNESTINE Losartan Potassium 25 mg 11/30/24 09:00 12/02/24 11:58 Losartan Potassium 25 Mg Tablet FEED TUBE Not Given DAILY ERNESTINE Magnesium Oxide 400 mg 11/25/24 10:05 11/25/24 17:50 Magnesium Oxide 400 Mg Tablet PO Not Given DAILY ERNESTINE Morphine Sulfate 2 mg 11/25/24 08:38 12/02/24 17:32 Morphine Sulfate (*Crx) 2 Mg/Ml Inj IV PUSH 2 mg Q2H PRN Administration Pain Rated 7-10 Ondansetron HCl 4 mg 11/25/24 08:38 Ondansetron Inj 4 Mg/2 Ml Vial IV PUSH Q8H PRN Nausea And Vomiting Pantoprazole Sodium 40 mg 11/23/24 21:00 12/02/24 12:02 Pantoprazole Sodium Iv 40 Mg Vial IV PUSH 40 mg Q12HR ERNESTINE Administration Phenol 1 spray 12/02/24 11:11 12/02/24 12:02 Phenol/Sod Pheno Lincoln Ledesma (*Bkc) MUCOUS MEM 1 spray PRN PRN Administration Sore Throat Senna/Docusate Sodium 1 tab 11/25/24 08:38 Senna/Docusate Sodium Tablet PO HS PRN Constipation Tacrolimus 1 mg 11/29/24 21:00 12/02/24 11:58 Tacrolimus 0.5 Mg Capsule FEED TUBE Not Given Q12HR [facility] Radiology Results: ITS Impressions Soft Tissue Neck CT 11/23/24 20:12 IMPRESSION: Perioperative appearance of the neck on postoperative day 3 after anterior approach for cervical spine fusion, as detailed above. Brain MRI 11/26/24 10:29 IMPRESSION: 1. No evidence of acute infarct seen. 2. 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 Follow-up advised. 3. Susceptibility artifact in the aqueduct of [place] which may be hemorrhagic. Follow-up advised. Modified Barium Swallow 12/02/24 12:35 IMPRESSION: 1. Aspiration. 2. Please refer to the speech therapy report for recommendations. Labs Labs: Laboratory Results - last 24 hr 12/01/24 12/02/24 12/02/24 19:50 00:30 05:20 WBC 7.6 RBC 4.67 Hgb 14.0 Hct 43.2 MCV 92.5 MCH 30.0 MCHC 32.4 RDW 11.9 Plt Count 78 L MPV 12.0 H % Immature Plt Fraction 7.4 Sodium 135 L Potassium 3.9 Chloride 104 Carbon Dioxide 24 Anion Gap 7 BUN 28 H Creatinine 0.81 Estim Creat Clear Calc 82 Estimated GFR > 60 Glucose 173 H POC Capillary Glucose 223 H 238 H Calcium 8.2 L Magnesium 2.3 Total Bilirubin 0.8 AST 18 ALT 25 Alkaline Phosphatase 48 Total Protein 5.0 L Albumin 2.9 L Triglycerides 88 12/02/24 12/02/24 11:35 16:40 WBC RBC Hgb Hct MCV MCH MCHC RDW Plt Count MPV % Immature Plt Fraction Sodium Potassium Chloride Carbon Dioxide Anion Gap BUN Creatinine Estim Creat Clear Calc Estimated GFR Glucose POC Capillary Glucose 194 H 189 H Calcium Magnesium Total Bilirubin AST ALT Alkaline Phosphatase Total Protein Albumin Triglycerides
--- NOTE | 2024-12-02 18:49 | P.CONGI_ITS ---
Assessment and Plan Assessment and plan (1) Dysphagia: Code(s): R13.10 - Dysphagia, unspecified Status: Acute Assessment and Plan: Following anterior cervical spinal fusion, the patient has developed oropharyngeal dysphagia, a frequent and usually temporary complication attributed to surgical manipulation and expected soft tissue edema, in this case the patient had a seroma which was drained, leading to some improvement. Nevertheless this dysphagia puts the patient at an aspiration risk, needing PEG placement, which is scheduled for tomorrow. Will give a prophylactic dose of cefazolin 1 hour prior to the procedure. GI Consult Note Consult date/time: 12/02/24 18:49 Reason for consult: PEG placement HPI: Melchor Harrell is a 69 year old male Who underwent spinal fusion surgery between C4 and C5 on November 20. Subsequently the patient developed dysphagia, and a seroma was drained surgically 09/11/2018. However, the patient has developed significant dysphagia and has had several modified barium swallow studies, the latest performed today, showing aspiration. This consultation is regarding the possibility of a PEG placement. 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 His platelet count tends to be chronically low, in the mid 70s-80s. Review of Systems 2 Review of Systems: All systems reviewed & are unremarkable except as noted in HPI and below PMFSH Past Medical History Medical History Seizures Chronic headaches Diabetes Asthma Allergies Hepatitis C antibody test negative (02/23/12) Surgical History Surgical History H/O inguinal hernia repair H/O kyphoplasty Hx of carpal tunnel repair Bilateral - January and February 2023 Liver transplant recipient (~2018) Family History Family History Grandparent Diabetes mellitus Acute myocardial infarction Cerebrovascular accident Mother Family history of malignant neoplasm, Onset Age: 41 Father Hypertension Other Family history of alcoholism Family history of blood dyscrasia Social History Social History Smoking packs per day: 2 Smoking cigarettes per day: 40.0 Years smoked: 12 Smoking pack-years: 24.00 Smoking status: Former smoker Tobacco type: cigarettes Smoking end date: 12/15/84 Alcohol intake: never Substance use: never Substance use type: does not use Do You Feel Safe in your Home?: Yes Lack of Transportation: No Lack of Food: Never True Current Housing: I Have Housing Concerned About Future Housing: No Difficulty Paying Gas/Electric Bills: No Difficulty Paying for Meds: No Currently Unemployed: No Education: Associate Degree Difficulty w/ Childcare or Family Care: No Living arrangements: with family Additional living arrangements comments: Spiritual care concerns: No Meds Home Medications and Allergies Home Medications ?Medication ?Instructions ?Recorded ?Confirmed ?Type amlodipine 10 mg tablet 10 mg PO DAILY 07/28/19 11/24/24 History carvedilol 25 mg tablet 25 mg PO Q12H 07/28/19 11/24/24 History tacrolimus 1 mg capsule, 1 mg PO Q12H 08/11/19 11/24/24 History immediate-release triamcinolone acetonide 55 mcg 1 spray intranasal DAILY PRN sinus 08/11/19 11/24/24 History nasal spray aerosol (Nasacort) symptoms loratadine 10 mg tablet (Claritin) 10 mg PO DAILY 04/17/21 11/24/24 History albuterol sulfate 90 mcg/actuation 2 puff inhalation Q4-6H PRN 08/18/21 11/24/24 Rx aerosol inhaler (ProAir HFA) shortness of breath or wheezing #8.5 grams cyclobenzaprine 10 mg tablet 10 mg PO TID PRN muscle spasm #180 05/25/22 11/24/24 Rx tabs doxazosin 8 mg tablet 8 mg PO DAILY 04/16/24 11/24/24 History magnesium oxide 400 mg PO DAILY 06/05/24 11/24/24 History losartan 25 mg tablet See Rx Instructions .Route 09/21/24 11/24/24 Rx .COMPLEX #100 tabs metformin 500 mg tablet 1,000 mg PO BID 11/04/24 11/24/24 History cyclobenzaprine 5 mg tablet 5 mg PO HS #30 tabs 11/20/24 11/24/24 Rx oxycodone 5 mg tablet 5 mg PO Q4H PRN pain #32 tabs 11/20/24 11/24/24 Rx Allergies Allergy/AdvReac Type Severity Reaction Status Date / Time Penicillins Allergy Unknown UNKNOWN Verified 11/20/24 06:58 cephalexin AdvReac Unknown GI DISTRESS Verified 11/25/24 07:12 ibuprofen AdvReac Other/avoid Verified 11/20/24 06:58 s Vital Signs Vital Signs - 24 hr 12/01/24 20:00 12/01/24 20:00 12/02/24 00:00 Temperature 96.6 F L 97 F L Pulse Rate 57 L 61 Respiratory Rate 18 18 Blood Pressure 183/88 H 173/70 H Pulse Oximetry 100 95 Oxygen Delivery Room Air 12/02/24 04:00 12/02/24 08:00 12/02/24 08:00 Temperature 97 F L 97.3 F L Pulse Rate 51 L 62 Respiratory Rate 18 16 Blood Pressure 177/74 H 167/82 H Pulse Oximetry 99 100 Oxygen Delivery Room Air 12/02/24 12:08 12/02/24 16:00 Temperature 97.4 F L 97.2 F L Pulse Rate 52 L 58 L Respiratory Rate 18 16 Blood Pressure 181/81 H 179/80 H Pulse Oximetry 100 100 Oxygen Delivery Exam 2 Narrative: Alert and oriented x3. Abdomen: Bilateral subcostal scar from previous transplantation. Soft, nontender, nondistended, no hepatosplenomegaly. Rest of the examination within normal limits. Results Labs 12/02/24 05:20 12/02/24 05:20 Labs: Short CBC 12/02/24 Range/Units 05:20 WBC 7.6 (4.5-10.0) K/mm3 Hgb 14.0 (14.0-18.0) g/dL Hct 43.2 (42.0-52.0) % Plt Count 78 L (150-375) k/mm3 BMP 12/02/24 05:20 Sodium 135 L Potassium 3.9 Chloride 104 Carbon Dioxide 24 BUN 28 H Creatinine 0.81 Glucose 173 H Calcium 8.2 L Liver Function 12/02/24 Range/Units 05:20 Total Bilirubin 0.8 (0.2-1.3) mg/dL AST 18 (17-59) U/L ALT 25 (6-50) U/L Alkaline Phosphatase 48 (38-126) U/L Albumin 2.9 L (3.5-5.1) g/dL
[2024-12-02] MEDS: INSULIN GLARGINE (*BKC) 100 UNITS/ML 16 UNITS SUB-Q (23:06)
[2024-12-02 23:10] LABS: Glucose Point of Care 230 mg/dl (65-105)
[2024-12-02] MEDS: hydrALAZINE HCL 20 MG/ML VIAL IV PUSH (23:26)
[2024-12-03 00:26] VITALS: BP 135/58
[2024-12-03 04:00] VITALS: BP 131/66; PULSE 61; RESP 18; TEMP 36.1; O2SAT 100
[2024-12-03] MEDS: dexAMETHasone SOD PHOS INJ 4 MG/ML VIAL IV PUSH ×4 (05:11→23:06)
[2024-12-03] MEDS: INSULIN ASPART (*BKC) 100 UNITS/ML SUB-Q (05:13)
[2024-12-03 05:21] LABS: Glucose Point of Care 222 mg/dl (65-105)
[2024-12-03 05:23] LABS: Basophils Percent Auto 0.3 % (0.2-1.2); Hematocrit 41.6 % (42.0-52.0); Hemoglobin 14.5 g/dL (14.0-18.0); Immature Granulocyte Absolute 0.19 K/mm3 (0.00-0.031); Immature Granulocyte Percent A 2.4 % (0-0.5); Immature Platelet Fraction Pct 7.6 % (0.9-11.2); Lymphocytes Absolute Auto 0.45 K/mm3 (0.9-3.2); Lymphocytes Percent Auto 5.7 % (18.3-44.2); Mean Corpuscular HGB Conc 34.9 g/dl (32-36); Mean Corpuscular Hemoglobin 30.8 pg (26-34); Mean Corpuscular Volume 88.3 fl (80-100); Mean Platelet Volume 11.9 fl (7.4-10.4); Monocytes Absolute Auto 0.4 K/mm3 (0.1-0.6); Monocytes Percent Auto 4.8 % (2.6-8.5); Neutrophils Absolute Auto 6.9 K/mm3 (1.3-6.7); Neutrophils Percent Auto 86.8 % (45.5-73.1); Platelet Count Result 73 k/mm3 (150-375); Red Blood Count 4.71 M/mm3 (4.6-6.20); Red Cell Distribution Width 11.9 % (11.5-14.5)
[2024-12-03 05:36] LABS: Alanine Aminotransferase 25 U/L (6-50); Albumin Level 2.8 g/dL (3.5-5.1); Alkaline Phosphatase 52 U/L (38-126); Anion Gap 6 mmol/L (4-12); Aspartate Amino Transferase 17 U/L (17-59); Bilirubin,Total 0.9 mg/dL (0.2-1.3); Blood Urea Nitrogen 30 mg/dL (9-20); Calcium 8.3 mg/dL (8.4-10.2); Carbon Dioxide 27 mmol/L (22-30); Chloride 100 mmol/L (98-107); Estimated CRCL calculation 79 ml/min; Estimated Glomerular Filt Rate > 60; Glucose 218 mg/dL (65-110); Magnesium 2.2 mg/dL (1.6-2.3); Phosphorus 4.2 mg/dL (2.5-4.5); Potassium 4.2 mmol/L (3.4-5.0); Sodium 133 mmol/L (137-145)
[2024-12-03 08:00] VITALS: BP 132/66; PULSE 69; RESP 18; TEMP 36.1; O2SAT 98
[2024-12-03] MEDS: PANTOPRAZOLE SODIUM IV 40 MG VIAL IV PUSH ×2 (08:29→20:11)
[2024-12-03] MEDS: MORPHINE SULFATE (*CRX) 2 MG/ML INJ IV PUSH ×2 (10:22→23:09)
--- NOTE | 2024-12-03 10:32 | PCDIET ---
Spoke with patient today, regarding bolus tube feedings. Weight is down 2 ibs since admit. Plans for PEG today. Tube feedings recommendations for Bolus feedings:Glucerna 1.2 480 ml QID with 50 ml water flush before and after feedings providing 2304 kcal/115 gm protein/1546 ml water. Meeting 100% kcal and protein needs at 25 kcal/kg and 100% protein needs at 1.3 kcal/kg. Other option would be Glucerna 1.5 360 ml QID with water flush of 75 ml before and after feedings providing 2160 kcal/119 gm protein/1092 ml water. Meeting 98% kcal needs at 25 kcal/kg and 100% protein needs at 1.3 kcal/kg. Will continue to monitor.
[2024-12-03 11:50] LABS: Glucose Point of Care 132 mg/dl (65-105)
--- NOTE | 2024-12-03 11:58 | P.PNIM_ITS ---
Progress Note: A&P Assessment and Plan (1) Dysphagia: Code(s): R13.10 - Dysphagia, unspecified Status: Acute Assessment and Plan: Patient post-op day 4 of C3-4, C4-C5 ACDF it was requested patient stay overnig ht for observation due to high risk of bleeding secondary thrombocytopenia but patient was adamant about returning home patient presents with difficulty swallowing and anterior neck swelling. * CT Neck:Perioperative appearance of the neck on postoperative day 3 after anterior approach for cervical spine fusion * Neurosurgery following * Continue Dexamethasone q.6 * continue PPI b.i.d. * NPO as failed modified barium swallow, speech following * 11/25/24-Exploratory surgery without evacuation of hematoma and drain placement by neurosurgery * 11/25/24-2 units of platelets prior to surgery due to thrombocytopenia was given * 11/28/23-failed swallow again. Order placed for Dobhoff with tube feedings * 11/28/24-Dobhoff placed yesterday, now on Tube feeding. Plan for Modified barium on Saturday to reassess swallowing. * 11/30/24-failed Modified Barium today, will add speech therapy at this time. Will discontinue the steroid today. continue tube feedings via Dobhoff * 12/02/23- plan for modified barium tomorrow, continue speech therapy and exercises, continue steroid per Dr. Be request, will start PPN today for nutrition. 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 * GI consult for peg tube placement would recommend EGD to rule out stricture prior * plan to follow-up with ENT O/P 12/03: * CT Reviewed * Peg tube placement hopefully today * Tube feedings post placement/ordered O/P by CC (2) Thrombocytopenia, unspecified: Code(s): D69.6 - Thrombocytopenia, unspecified Status: Acute Assessment and Plan: Patient with history of liver transplant chronic history of thrombocytopenia * Initial platelet count 70>81 * 11/25/24 s/p transfuse 2 units platelets prior to surgery * Plt count 71 today (3) Essential (primary) hypertension: Code(s): I10 - Essential (primary) hypertension Status: Acute Assessment and Plan: * continue home medications. * hydralazine prn (4) Type 2 diabetes mellitus without complications: Qualifiers: Diabetes mellitus mcfp insulin use: without mcfp use Qualified Code(s): E11.9 - Type 2 diabetes mellitus without complications Code(s): E11.9 - Type 2 diabetes mellitus without complications Status: Acute Assessment and Plan: * Accu-Cheks q6h * BG ranging to 03/30/2028 * Last Hgb A1C was 6.4 on 08/19/24 * low dose sliding scale insulin for NPO patients started * hold oral diabetic medications * hypoglycemic protocol in place * currently on PPN and NPO status * will increase Lantus dose today to 16 units (5) Liver transplant recipient: Code(s): Z94.4 - Liver transplant status Status: Acute Assessment and Plan: * tacrolimus on hold considering NPO status and Dobbhoff was dislodged * liver enzymes are stable as well as bilirubin. 12/03 * Will resume after peg tube placement Plan Code status: Full code per patient DVT prophylaxis: SCD's Stress ulcer prophylaxis: Protonix 40 daily PT/OT notes: Ambulatory Disposition: Patient continues admission for dysphasia postop back surgery with an anterior approach also underwent a hematoma evacuation. Plan for peg tube. Will follow-up with ENT O/P Subjective Date/time seen: 12/03/24 11:58 Interval history: Patient is a 69-year-old male who was admitted for neck swelling post hop back surgery and who underwent evacuation of hematoma but now is having dysphagia with aspiration risk. 12/03/24: Patient with no complaints plan was for a peg tube today may have to be re- scheduled for tomorrow due to staffing issues. Patient still with moderate secretions. Review of Systems Review of Systems: All systems reviewed & are unremarkable except as noted in HPI and below Exam Const: General: no acute distress HENMT: Mouth: Yes moist mucous membranes Eyes: General: appearance normal, both eyes and all related structures Pupils: Equal, round and reactive pupils present Neck: Other: Anterior Neck swelling Resp: Effort & Inspection: normal respiratory effort Auscultation: clear to auscultation bilaterally Cardio: Rate: regular rate Rhythm: regular rhythm GI: Auscultation: normal bowel sounds Skin: General skin exam: normal color and no rashes or lesions noted Neuro: General: gait normal Cranial nerves: Yes Equal, round and reactive pupils present Speech: normal speech Sensory Exam: normal sensation Extrem: General: normal to inspection Psych: Mental Status: mental status grossly normal Affect: normal affect Objective Data Vital Signs Vital Signs: Vital Signs - 24 hr 12/02/24 12:08 12/02/24 16:00 12/02/24 20:00 Temperature 97.4 F L 97.2 F L 97.0 F L Pulse Rate 52 L 58 L 62 Respiratory Rate 18 16 20 Blood Pressure 181/81 H 179/80 H 159/71 H Pulse Oximetry 100 100 100 Oxygen Delivery 12/02/24 23:21 12/03/24 00:26 12/03/24 04:00 Temperature 97.7 F 97.0 F L Pulse Rate 55 L 61 Respiratory Rate 20 18 Blood Pressure 183/80 H 135/58 L 131/66 Pulse Oximetry 100 100 Oxygen Delivery 12/03/24 08:00 12/03/24 08:00 Temperature 97.0 F L Pulse Rate 69 Respiratory Rate 18 Blood Pressure 132/66 Pulse Oximetry 98 Oxygen Delivery Room Air Intake/Output Intake/Output: Intake & Output 11/30/24 12/01/24 12/02/24 12/03/24 23:59 23:59 23:59 23:59 Intake Total 1180 1454.2 2215.3 1250 Output Total 1000 1999 1250 825 Balance 180 -545.8 965.3 425 Meds/Results Medications: Active Medications Generic Name Dose Route Start Last Admin Trade Name Freq PRN Reason Stop Dose Admin Acetaminophen 650 mg 11/25/24 14:37 Acetaminophen 650 Mg Suppository RECTAL Q6H PRN Mild Pain (1-3) or Fever Hydrocodone Bitart/Acetaminophen 1 tab 11/25/24 08:38 Hydrocodone/Acetaminophen (*Crx) 5-325 Mg Tablet PO Q4H PRN Mild Pain (1-3) Al Hydrox/Mg Hydrox/Simethicone 20 ml 11/25/24 08:33 Mag Hydrox/Al Hydrox/Simeth 30 Ml Udc PO Q4H PRN Indigestion/Heartburn Albuterol 2 puff 11/24/24 13:34 11/26/24 06:30 Albuterol Sulfate (*Sp) Aerosol 1 Puff INHALATION 2 puff Q6HRT PRN Administration Shortness Of Breath Amlodipine Besylate 10 mg 11/30/24 09:00 12/03/24 10:21 Amlodipine Besylate 10 Mg Tablet FEED TUBE Not Given DAILY ERNESTINE Bisacodyl 10 mg 11/25/24 08:33 Bisacodyl 10 Mg Suppository RECTAL DAILY PRN Constipation Carvedilol 25 mg 11/29/24 21:00 12/03/24 10:21 Carvedilol 25 Mg Tablet FEED TUBE Not Given Q12HR ERNESTINE Cyclobenzaprine HCl 10 mg 11/25/24 09:56 Cyclobenzaprine Hcl 10 Mg Tablet PO TID PRN muscle spasm Dexamethasone Sodium Phosphate 4 mg 11/30/24 18:00 12/03/24 05:11 Dexamethasone Sod Phos Inj 4 Mg/Ml Vial IV PUSH 4 mg Q6HR ERNESTINE Administration Dextrose 12.5 gm 11/24/24 12:04 Dextrose 50% 25 Gm/50 Ml Syringe IV PUSH PRN PRN Hypoglycemia Protocol Docusate Sodium 100 mg 11/25/24 09:00 11/25/24 17:50 Docusate Sodium 100 Mg Capsule PO Not Given Q12HR ERNESTINE Doxazosin Mesylate 8 mg 11/29/24 21:00 12/02/24 20:31 Doxazosin Mesylate 4 Mg Tablet FEED TUBE Not Given QHS [facility] Fluticasone Propionate 2 spray 11/25/24 10:07 Fluticasone Propionate 0.05% Na Spr 16 Gm Btl (*Bkc) NASAL DAILY PRN sinus symptoms Glucagon 1 mg 11/24/24 12:04 Glucagon For Inj 1 Mg Vial IM PRN PRN Hypoglycemia Protocol Glucose 15 gm 11/24/24 12:04 Glucose Oral Gel 15 Gm Of Glucse In 37.5 Gm Tube PO PRN PRN Hypoglycemia Protocol Hydralazine HCl 20 mg 12/02/24 11:51 12/02/24 23:26 Hydralazine Hcl 20 Mg/Ml Vial IV PUSH 20 mg Q6H PRN Administration Hypertension Dextrose 1,000 mls @ 100 mls/hr 11/24/24 12:04 Dextrose 5% 1,000 Ml IVPB PRN PRN Hypoglycemia Protocol Dextrose 1,000 mls @ 50 mls/hr 12/01/24 09:51 Dextrose 10% IV CONT .Q20H PRN if PN is interrupted Amino Acids/Electrolytes/Dextrose 1,000 mls @ 80 mls/hr 12/01/24 11:30 12/03/24 10:25 Clinimix E 4.25%/5% Solution IV CONT Not Given .[id number] ERNESTINE Protocol Fat Emulsion Intravenous 250 mls @ 20.833 mls/hr 12/01/24 11:30 12/03/24 00:07 Lipids 20% IVPB Infused Q24H ERNESTINE Infusion Cefazolin Sodium 1 gm in 50 mls @ 100 mls/hr 12/03/24 12:00 Ancef 1 Gm/Ns 50 Ml IVPB 12/03/24 12:29 ONCE ONE Insulin Aspart 2 - 5 units 11/27/24 00:00 12/03/24 05:13 Insulin Aspart (*Bkc) 100 Units/Ml SUB-Q 2 units Q6HR ERNESTINE Administration Protocol Insulin Glargine 16 units 12/01/24 21:00 12/02/24 23:06 Insulin Glargine (*Bkc) 100 Units/Ml SUB-Q 16 units HS ERNESTINE Administration Loratadine 10 mg 11/29/24 21:00 12/02/24 20:31 Loratadine 10 Mg Tablet FEED TUBE Not Given QHS [facility] Losartan Potassium 25 mg 11/30/24 09:00 12/03/24 10:21 Losartan Potassium 25 Mg Tablet FEED TUBE Not Given DAILY [facility] Magnesium Oxide 400 mg 11/25/24 10:05 11/25/24 17:50 Magnesium Oxide 400 Mg Tablet PO Not Given DAILY [facility] Morphine Sulfate 2 mg 11/25/24 08:38 12/03/24 10:22 Morphine Sulfate (*Crx) 2 Mg/Ml Inj IV PUSH 2 mg Q2H PRN Administration Pain Rated 7-10 Ondansetron HCl 4 mg 11/25/24 08:38 Ondansetron Inj 4 Mg/2 Ml Vial IV PUSH Q8H PRN Nausea And Vomiting Pantoprazole Sodium 40 mg 11/23/24 21:00 12/03/24 08:29 Pantoprazole Sodium Iv 40 Mg Vial IV PUSH 40 mg Q12HR ERNESTINE Administration Phenol 1 spray 12/02/24 11:11 12/02/24 12:02 Phenol/Sod Pheno Ong Ledesma (*Bkc) MUCOUS MEM 1 spray PRN PRN Administration Sore Throat Senna/Docusate Sodium 1 tab 11/25/24 08:38 Senna/Docusate Sodium Tablet PO HS PRN Constipation Tacrolimus 1 mg 11/29/24 21:00 12/03/24 10:21 Tacrolimus 0.5 Mg Capsule FEED TUBE Not Given Q12HR [facility] Radiology Results: ITS Impressions Soft Tissue Neck CT 11/23/24 20:12 IMPRESSION: Perioperative appearance of the neck on postoperative day 3 after anterior approach for cervical spine fusion, as detailed above. Brain MRI 11/26/24 10:29 IMPRESSION: 1. No evidence of acute infarct seen. 2. 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 Follow-up advised. 3. Susceptibility artifact in the aqueduct of [place] which may be hemorrhagic. Follow-up advised. Modified Barium Swallow 12/02/24 12:35 IMPRESSION: 1. Aspiration. 2. Please refer to the speech therapy report for recommendations. Neck/Chest CT 12/02/24 22:32 IMPRESSION: Meningioma in the frontal lobe. Minimal residual postoperative changes in the left side of the neck between the thyroid cartilage and thyroid gland. Hyperdense area seen in the surgical bed which may be bone fragments. Slightly prominent soft tissues posterior to the left side of the thyroid cartilage most likely residual postoperative changes. Follow-up advised. 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 Possible subcapsular hematoma in the spleen. Clinical correlation advised. Labs Labs: Laboratory Results - last 24 hr 12/02/24 12/02/24 12/02/24 00:30 11:35 16:40 WBC RBC Hgb Hct MCV MCH MCHC RDW Plt Count MPV Immature Gran % (Auto) Neut % (Auto) Lymph % (Auto) Sully % (Auto) Eos % (Auto) Baso % (Auto) Lymph # (Auto) Sully # (Auto) Eos # (Auto) Baso # (Auto) Abs Immat Gran (auto) Absolute Neuts (auto) Absolute Nucleated RBC Nucleated RBC % % Immature Plt Fraction Sodium Potassium Chloride Carbon Dioxide Anion Gap BUN Creatinine Estim Creat Clear Calc Estimated GFR Glucose POC Capillary Glucose 238 H 194 H 189 H Calcium Phosphorus Magnesium Total Bilirubin AST ALT Alkaline Phosphatase Total Protein Albumin 12/02/24 12/03/24 12/03/24 23:03 04:57 05:11 WBC 8.0 RBC 4.71 Hgb 14.5 Hct 41.6 L MCV 88.3 MCH 30.8 MCHC 34.9 RDW 11.9 Plt Count 73 L MPV 11.9 H Immature Gran % (Auto) 2.4 H Neut % (Auto) 86.8 H Lymph % (Auto) 5.7 L Sully % (Auto) 4.8 Eos % (Auto) 0.0 Baso % (Auto) 0.3 Lymph # (Auto) 0.45 L Sully # (Auto) 0.4 Eos # (Auto) 0.0 Baso # (Auto) 0.0 Abs Immat Gran (auto) 0.19 H Absolute Neuts (auto) 6.9 H Absolute Nucleated RBC 0.000 Nucleated RBC % 0.0 % Immature Plt Fraction 7.6 Sodium 133 L Potassium 4.2 Chloride 100 Carbon Dioxide 27 Anion Gap 6 BUN 30 H Creatinine 0.85 Estim Creat Clear Calc 79 Estimated GFR > 60 Glucose 218 H POC Capillary Glucose 230 H 222 H Calcium 8.3 L Phosphorus 4.2 Magnesium 2.2 Total Bilirubin 0.9 AST 17 ALT 25 Alkaline Phosphatase 52 Total Protein 5.0 L Albumin 2.8 L 12/03/24 11:46 WBC RBC Hgb Hct MCV MCH MCHC RDW Plt Count MPV Immature Gran % (Auto) Neut % (Auto) Lymph % (Auto) Sully % (Auto) Eos % (Auto) Baso % (Auto) Lymph # (Auto) Sully # (Auto) Eos # (Auto) Baso # (Auto) Abs Immat Gran (auto) Absolute Neuts (auto) Absolute Nucleated RBC Nucleated RBC % % Immature Plt Fraction Sodium Potassium Chloride Carbon Dioxide Anion Gap BUN Creatinine Estim Creat Clear Calc Estimated GFR Glucose POC Capillary Glucose 132 H Calcium Phosphorus Magnesium Total Bilirubin AST ALT Alkaline Phosphatase Total Protein Albumin Quality VTE Prophylaxis VTE prophylaxis: mechanical ordered -Patient's previous records reviewed on admission -ER notes reviewed in detail on admission -discussed all findings and current treatment plan with patient/Family/POA -Consultations reviewed for recommendations -Patient's disposition for safe discharge discussed with shoe caser Dictation performed by [employer] direct speech recognition software, therefore inclinometer tester variants and typographical errors may occur. Hospitalist MIPS Advance Care Plan I have confirmed that the patient's Advanced Care Plan is present, code status is documented, or surrogate decision maker is listed in patient medical record.: Yes Medication Reconciliation I have utilized all available resources to obtain, update and review the patients current medications (includes all prescriptions, OTC, herbals, cannabis, and nutritional supplements).: Yes The patient is not eligible for med reconciliation; the patient is in a emergent medical situation where delaying treatment would jeopardize the patients health.: No
[2024-12-03 12:00] VITALS: BP 140/72; PULSE 71; RESP 18; TEMP 36.3; O2SAT 95
--- NOTE | 2024-12-03 12:50 | P.PNNEUSUR_ITS ---
Progress Note: A&P Assessment and Plan (1) Dysphagia: Code(s): R13.10 - Dysphagia, unspecified Status: Acute (2) Status post cervical spinal fusion: Code(s): Z98.1 - Arthrodesis status Status: Acute Plan -PEG tube today -From a neurosurgical standpoint, he should be able to discharge as soon as his PEG is working well and PEG teaching/home tube feeds are arranged and completed Subjective Date/time seen: 12/03/24 12:50 Interval history: Doing well today. He has not noticed any drainage from his neck since I saw him yesterday. He is waiting to be transported for his PEG tube this afternoon Review of Systems Review of Systems: All systems reviewed & are unremarkable except as noted in HPI and below Exam Narrative: AOx4 Incision appears to be healing well, no drainage noted Full strength in arms and legs aside from mild left deltoid weakness Sensation intact to light touch Objective Data Vital Signs Vital Signs: Vital Signs - 24 hr 12/02/24 16:00 12/02/24 20:00 12/02/24 23:21 Temperature 97.2 F L 97.0 F L 97.7 F Pulse Rate 58 L 62 55 L Respiratory Rate 16 20 20 Blood Pressure 179/80 H 159/71 H 183/80 H Pulse Oximetry 100 100 100 Oxygen Delivery 12/03/24 00:26 12/03/24 04:00 12/03/24 08:00 Temperature 97.0 F L 97.0 F L Pulse Rate 61 69 Respiratory Rate 18 18 Blood Pressure 135/58 L 131/66 132/66 Pulse Oximetry 100 98 Oxygen Delivery 12/03/24 08:00 12/03/24 12:00 Temperature 97.3 F L Pulse Rate 71 Respiratory Rate 18 Blood Pressure 140/72 Pulse Oximetry 95 Oxygen Delivery Room Air Intake/Output Intake/Output: Intake & Output 11/30/24 12/01/24 12/02/24 12/03/24 23:59 23:59 23:59 23:59 Intake Total 1180 1454.2 2215.3 1250 Output Total 1000 2000 1250 1005 Balance 180 -545.8 965.3 245 Meds/Results Medications: Active Medications Generic Name Dose Route Start Last Admin Trade Name Freq PRN Reason Stop Dose Admin Acetaminophen 650 mg 11/25/24 14:37 Acetaminophen 650 Mg Suppository RECTAL Q6H PRN Mild Pain (1-3) or Fever Hydrocodone Bitart/Acetaminophen 1 tab 11/25/24 08:38 Hydrocodone/Acetaminophen (*Crx) 5-325 Mg Tablet PO Q4H PRN Mild Pain (1-3) Al Hydrox/Mg Hydrox/Simethicone 20 ml 11/25/24 08:33 Mag Hydrox/Al Hydrox/Simeth 30 Ml Udc PO Q4H PRN Indigestion/Heartburn Albuterol 2 puff 11/24/24 13:34 11/26/24 06:30 Albuterol Sulfate (*Sp) Aerosol 1 Puff INHALATION 2 puff Q6HRT PRN Administration Shortness Of Breath Amlodipine Besylate 10 mg 11/30/24 09:00 12/03/24 10:21 Amlodipine Besylate 10 Mg Tablet FEED TUBE Not Given DAILY ERNESTINE Bisacodyl 10 mg 11/25/24 08:33 Bisacodyl 10 Mg Suppository RECTAL DAILY PRN Constipation Carvedilol 25 mg 11/29/24 21:00 12/03/24 10:21 Carvedilol 25 Mg Tablet FEED TUBE Not Given Q12HR ERNESTINE Cyclobenzaprine HCl 10 mg 11/25/24 09:56 Cyclobenzaprine Hcl 10 Mg Tablet PO TID PRN muscle spasm Dexamethasone Sodium Phosphate 4 mg 11/30/24 18:00 12/03/24 05:11 Dexamethasone Sod Phos Inj 4 Mg/Ml Vial IV PUSH 4 mg Q6HR ERNESTINE Administration Dextrose 12.5 gm 11/24/24 12:04 Dextrose 50% 25 Gm/50 Ml Syringe IV PUSH PRN PRN Hypoglycemia Protocol Docusate Sodium 100 mg 11/25/24 09:00 11/25/24 17:50 Docusate Sodium 100 Mg Capsule PO Not Given Q12HR ERNESTINE Doxazosin Mesylate 8 mg 11/29/24 21:00 12/02/24 20:31 Doxazosin Mesylate 4 Mg Tablet FEED TUBE Not Given QHS ERNESTINE Fluticasone Propionate 2 spray 11/25/24 10:07 Fluticasone Propionate 0.05% Na Spr 16 Gm Btl (*Bkc) NASAL DAILY PRN sinus symptoms Glucagon 1 mg 11/24/24 12:04 Glucagon For Inj 1 Mg Vial IM PRN PRN Hypoglycemia Protocol Glucose 15 gm 11/24/24 12:04 Glucose Oral Gel 15 Gm Of Glucse In 37.5 Gm Tube PO PRN PRN Hypoglycemia Protocol Hydralazine HCl 20 mg 12/02/24 11:51 12/02/24 23:26 Hydralazine Hcl 20 Mg/Ml Vial IV PUSH 20 mg Q6H PRN Administration Hypertension Dextrose 1,000 mls @ 100 mls/hr 11/24/24 12:04 Dextrose 5% 1,000 Ml IVPB PRN PRN Hypoglycemia Protocol Dextrose 1,000 mls @ 50 mls/hr 12/01/24 09:51 Dextrose 10% IV CONT .Q20H PRN if PN is interrupted Amino Acids/Electrolytes/Dextrose 1,000 mls @ 80 mls/hr 12/01/24 11:30 12/03/24 10:25 Clinimix E 4.25%/5% Solution IV CONT Not Given .[id number] ERNESTINE Protocol Fat Emulsion Intravenous 250 mls @ 20.833 mls/hr 12/01/24 11:30 12/03/24 00:07 Lipids 20% IVPB Infused Q24H ERNESTINE Infusion Insulin Aspart 2 - 5 units 11/27/24 00:00 12/03/24 05:13 Insulin Aspart (*Bkc) 100 Units/Ml SUB-Q 2 units Q6HR ERNESTINE Administration Protocol Insulin Glargine 16 units 12/01/24 21:00 12/02/24 23:06 Insulin Glargine (*Bkc) 100 Units/Ml SUB-Q 16 units HS ERNESTINE Administration Loratadine 10 mg 11/29/24 21:00 12/02/24 20:31 Loratadine 10 Mg Tablet FEED TUBE Not Given QHS ERNESTINE Losartan Potassium 25 mg 11/30/24 09:00 12/03/24 10:21 Losartan Potassium 25 Mg Tablet FEED TUBE Not Given DAILY ERNESTINE Magnesium Oxide 400 mg 11/25/24 10:05 11/25/24 17:50 Magnesium Oxide 400 Mg Tablet PO Not Given DAILY [facility] Morphine Sulfate 2 mg 11/25/24 08:38 12/03/24 10:22 Morphine Sulfate (*Crx) 2 Mg/Ml Inj IV PUSH 2 mg Q2H PRN Administration Pain Rated 7-10 Ondansetron HCl 4 mg 11/25/24 08:38 Ondansetron Inj 4 Mg/2 Ml Vial IV PUSH Q8H PRN Nausea And Vomiting Pantoprazole Sodium 40 mg 11/23/24 21:00 12/03/24 08:29 Pantoprazole Sodium Iv 40 Mg Vial IV PUSH 40 mg Q12HR ERNESTINE Administration Phenol 1 spray 12/02/24 11:11 12/02/24 12:02 Phenol/Sod Pheno [place] Ledesma (*Bkc) MUCOUS MEM 1 spray PRN PRN Administration Sore Throat Senna/Docusate Sodium 1 tab 11/25/24 08:38 Senna/Docusate Sodium Tablet PO HS PRN Constipation Tacrolimus 1 mg 11/29/24 21:00 12/03/24 10:21 Tacrolimus 0.5 Mg Capsule FEED TUBE Not Given Q12HR [facility] Radiology Results: ITS Impressions Soft Tissue Neck CT 11/23/24 20:12 IMPRESSION: Perioperative appearance of the neck on postoperative day 3 after anterior approach for cervical spine fusion, as detailed above. Brain MRI 11/26/24 10:29 IMPRESSION: 1. No evidence of acute infarct seen. 2. 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 Follow-up advised. 3. Susceptibility artifact in the aqueduct of [place] which may be hemorrhagic. Follow-up advised. Modified Barium Swallow 12/02/24 12:35 IMPRESSION: 1. Aspiration. 2. Please refer to the speech therapy report for recommendations. Neck/Chest CT 12/02/24 22:32 IMPRESSION: Meningioma in the frontal lobe. Minimal residual postoperative changes in the left side of the neck between the thyroid cartilage and thyroid gland. Hyperdense area seen in the surgical bed which may be bone fragments. Slightly prominent soft tissues posterior to the left side of the thyroid cartilage most likely residual postoperative changes. Follow-up advised. 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 Possible subcapsular hematoma in the spleen. Clinical correlation advised. Labs Labs: Laboratory Results - last 24 hr 12/02/24 12/02/24 12/03/24 16:40 23:03 04:57 WBC 8.0 RBC 4.71 Hgb 14.5 Hct 41.6 L MCV 88.3 MCH 30.8 MCHC 34.9 RDW 11.9 Plt Count 73 L MPV 11.9 H Immature Gran % (Auto) 2.4 H Neut % (Auto) 86.8 H Lymph % (Auto) 5.7 L Door % (Auto) 4.8 Eos % (Auto) 0.0 Baso % (Auto) 0.3 Lymph # (Auto) 0.45 L Door # (Auto) 0.4 Eos # (Auto) 0.0 Baso # (Auto) 0.0 Abs Immat Gran (auto) 0.19 H Absolute Neuts (auto) 6.9 H Absolute Nucleated RBC 0.000 Nucleated RBC % 0.0 % Immature Plt Fraction 7.6 Sodium 133 L Potassium 4.2 Chloride 100 Carbon Dioxide 27 Anion Gap 6 BUN 30 H Creatinine 0.85 Estim Creat Clear Calc 79 Estimated GFR > 60 Glucose 218 H POC Capillary Glucose 189 H 230 H Calcium 8.3 L Phosphorus 4.2 Magnesium 2.2 Total Bilirubin 0.9 AST 17 ALT 25 Alkaline Phosphatase 52 Total Protein 5.0 L Albumin 2.8 L 12/03/24 12/03/24 05:11 11:46 WBC RBC Hgb Hct MCV MCH MCHC RDW Plt Count MPV Immature Gran % (Auto) Neut % (Auto) Lymph % (Auto) Door % (Auto) Eos % (Auto) Baso % (Auto) Lymph # (Auto) Door # (Auto) Eos # (Auto) Baso # (Auto) Abs Immat Gran (auto) Absolute Neuts (auto) Absolute Nucleated RBC Nucleated RBC % % Immature Plt Fraction Sodium Potassium Chloride Carbon Dioxide Anion Gap BUN Creatinine Estim Creat Clear Calc Estimated GFR Glucose POC Capillary Glucose 222 H 132 H Calcium Phosphorus Magnesium Total Bilirubin AST ALT Alkaline Phosphatase Total Protein Albumin
[2024-12-03 16:51] LABS: Glucose Point of Care 119 mg/dl (65-105)
--- NOTE | 2024-12-03 19:29 | WPDGIPROGNO ---
Progress Note: A&P Assessment and Plan (1) Dysphagia: Code(s): R13.10 - Dysphagia, unspecified Status: Acute Assessment and Plan: The patient could not have his PEG placed today due to lack of anesthesia staffing and coverage. Will do it 1st thing in the morning tomorrow at 7:15 a.m.. Subjective Date/time seen: 12/03/24 19:29 Objective Data Vital Signs Vital Signs: Vital Signs - 24 hr 12/02/24 20:00 12/02/24 23:21 12/03/24 00:26 Temperature 97.0 F L 97.7 F Pulse Rate 62 55 L Respiratory Rate 20 20 Blood Pressure 159/71 H 183/80 H 135/58 L Pulse Oximetry 100 100 Oxygen Delivery 12/03/24 04:00 12/03/24 08:00 12/03/24 08:00 Temperature 97.0 F L 97.0 F L Pulse Rate 61 69 Respiratory Rate 18 18 Blood Pressure 131/66 132/66 Pulse Oximetry 100 98 Oxygen Delivery Room Air 12/03/24 12:00 Temperature 97.3 F L Pulse Rate 71 Respiratory Rate 18 Blood Pressure 140/72 Pulse Oximetry 95 Oxygen Delivery Intake/Output Intake/Output: Intake & Output 11/30/24 12/01/24 12/02/24 12/03/24 23:59 23:59 23:59 23:59 Intake Total 1180 1454.2 2215.3 1250 Output Total 1000 2000 1250 1305 Balance 180 -545.8 965.3 -55 Meds/Results Medications: Active Medications Generic Name Dose Route Start Last Admin Trade Name Freq PRN Reason Stop Dose Admin Acetaminophen 650 mg 11/25/24 14:37 Acetaminophen 650 Mg Suppository RECTAL Q6H PRN Mild Pain (1-3) or Fever Hydrocodone Bitart/Acetaminophen 1 tab 11/25/24 08:38 Hydrocodone/Acetaminophen (*Crx) 5-325 Mg Tablet PO Q4H PRN Mild Pain (1-3) Al Hydrox/Mg Hydrox/Simethicone 20 ml 11/25/24 08:33 Mag Hydrox/Al Hydrox/Simeth 30 Ml Udc PO Q4H PRN Indigestion/Heartburn Albuterol 2 puff 11/24/24 13:34 11/26/24 06:30 Albuterol Sulfate (*Sp) Aerosol 1 Puff INHALATION 2 puff Q6HRT PRN Administration Shortness Of Breath Amlodipine Besylate 10 mg 11/30/24 09:00 12/03/24 10:21 Amlodipine Besylate 10 Mg Tablet FEED TUBE Not Given DAILY [facility] Bisacodyl 10 mg 11/25/24 08:33 Bisacodyl 10 Mg Suppository RECTAL DAILY PRN Constipation Carvedilol 25 mg 11/29/24 21:00 12/03/24 10:21 Carvedilol 25 Mg Tablet FEED TUBE Not Given Q12HR [facility] Cyclobenzaprine HCl 10 mg 11/25/24 09:56 Cyclobenzaprine Hcl 10 Mg Tablet PO TID PRN muscle spasm Dexamethasone Sodium Phosphate 4 mg 11/30/24 18:00 12/03/24 17:29 Dexamethasone Sod Phos Inj 4 Mg/Ml Vial IV PUSH 4 mg Q6HR [facility] Administration Dextrose 12.5 gm 11/24/24 12:04 Dextrose 50% 25 Gm/50 Ml Syringe IV PUSH PRN PRN Hypoglycemia Protocol Docusate Sodium 100 mg 11/25/24 09:00 11/25/24 17:50 Docusate Sodium 100 Mg Capsule PO Not Given Q12HR [facility] Doxazosin Mesylate 8 mg 11/29/24 21:00 12/02/24 20:31 Doxazosin Mesylate 4 Mg Tablet FEED TUBE Not Given QHS [facility] Fluticasone Propionate 2 spray 11/25/24 10:07 Fluticasone Propionate 0.05% Na Spr 16 Gm Btl (*Bkc) NASAL DAILY PRN sinus symptoms Glucagon 1 mg 11/24/24 12:04 Glucagon For Inj 1 Mg Vial IM PRN PRN Hypoglycemia Protocol Glucose 15 gm 11/24/24 12:04 Glucose Oral Gel 15 Gm Of Glucse In 37.5 Gm Tube PO PRN PRN Hypoglycemia Protocol Hydralazine HCl 20 mg 12/02/24 11:51 12/02/24 23:26 Hydralazine Hcl 20 Mg/Ml Vial IV PUSH 20 mg Q6H PRN Administration Hypertension Dextrose 1,000 mls @ 100 mls/hr 11/24/24 12:04 Dextrose 5% 1,000 Ml IVPB PRN PRN Hypoglycemia Protocol Dextrose 1,000 mls @ 50 mls/hr 12/01/24 09:51 Dextrose 10% IV CONT .Q20H PRN if PN is interrupted Amino Acids/Electrolytes/Dextrose 1,000 mls @ 80 mls/hr 12/01/24 11:30 12/03/24 14:12 Clinimix E 4.25%/5% Solution IV CONT Not Given .[id number] [facility] Protocol Fat Emulsion Intravenous 250 mls @ 20.833 mls/hr 12/01/24 11:30 12/03/24 14:11 Lipids 20% IVPB Not Given Q24H [facility] Insulin Aspart 2 - 5 units 11/27/24 00:00 12/03/24 17:03 Insulin Aspart (*Bkc) 100 Units/Ml SUB-Q Not Given Q6HR [facility] Protocol Insulin Glargine 16 units 12/01/24 21:00 12/02/24 23:06 Insulin Glargine (*Bkc) 100 Units/Ml SUB-Q 16 units HS [facility] Administration Loratadine 10 mg 11/29/24 21:00 12/02/24 20:31 Loratadine 10 Mg Tablet FEED TUBE Not Given QHS [facility] Losartan Potassium 25 mg 11/30/24 09:00 12/03/24 10:21 Losartan Potassium 25 Mg Tablet FEED TUBE Not Given DAILY [facility] Magnesium Oxide 400 mg 11/25/24 10:05 11/25/24 17:50 Magnesium Oxide 400 Mg Tablet PO Not Given DAILY [facility] Morphine Sulfate 2 mg 11/25/24 08:38 12/03/24 10:22 Morphine Sulfate (*Crx) 2 Mg/Ml Inj IV PUSH 2 mg Q2H PRN Administration Pain Rated 7-10 Ondansetron HCl 4 mg 11/25/24 08:38 Ondansetron Inj 4 Mg/2 Ml Vial IV PUSH Q8H PRN Nausea And Vomiting Pantoprazole Sodium 40 mg 11/23/24 21:00 12/03/24 08:29 Pantoprazole Sodium Iv 40 Mg Vial IV PUSH 40 mg Q12HR [facility] Administration Phenol 1 spray 12/02/24 11:11 12/02/24 12:02 Phenol/Sod Pheno [place] Ledesma (*Bkc) MUCOUS MEM 1 spray PRN PRN Administration Sore Throat Senna/Docusate Sodium 1 tab 11/25/24 08:38 Senna/Docusate Sodium Tablet PO HS PRN Constipation Tacrolimus 1 mg 11/29/24 21:00 12/03/24 10:21 Tacrolimus 0.5 Mg Capsule FEED TUBE Not Given Q12HR [facility] Radiology Results: ITS Impressions Soft Tissue Neck CT 11/23/24 20:12 IMPRESSION: Perioperative appearance of the neck on postoperative day 3 after anterior approach for cervical spine fusion, as detailed above. Brain MRI 11/26/24 10:29 IMPRESSION: 1. No evidence of acute infarct seen. 2. 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 Follow-up advised. 3. Susceptibility artifact in the aqueduct of [place] which may be hemorrhagic. Follow-up advised. Modified Barium Swallow 12/02/24 12:35 IMPRESSION: 1. Aspiration. 2. Please refer to the speech therapy report for recommendations. Neck/Chest CT 12/02/24 22:32 IMPRESSION: Meningioma in the frontal lobe. Minimal residual postoperative changes in the left side of the neck between the thyroid cartilage and thyroid gland. Hyperdense area seen in the surgical bed which may be bone fragments. Slightly prominent soft tissues posterior to the left side of the thyroid cartilage most likely residual postoperative changes. Follow-up advised. 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 Possible subcapsular hematoma in the spleen. Clinical correlation advised. Labs Labs: Laboratory Results - last 24 hr 12/02/24 12/03/24 12/03/24 23:03 04:57 05:11 WBC 8.0 RBC 4.71 Hgb 14.5 Hct 41.6 L MCV 88.3 MCH 30.8 MCHC 34.9 RDW 11.9 Plt Count 73 L MPV 11.9 H Immature Gran % (Auto) 2.4 H Neut % (Auto) 86.8 H Lymph % (Auto) 5.7 L [place] % (Auto) 4.8 Eos % (Auto) 0.0 Baso % (Auto) 0.3 Lymph # (Auto) 0.45 L [place] # (Auto) 0.4 Eos # (Auto) 0.0 Baso # (Auto) 0.0 Abs Immat Gran (auto) 0.19 H Absolute Neuts (auto) 6.9 H Absolute Nucleated RBC 0.000 Nucleated RBC % 0.0 % Immature Plt Fraction 7.6 Sodium 133 L Potassium 4.2 Chloride 100 Carbon Dioxide 27 Anion Gap 6 BUN 30 H Creatinine 0.85 Estim Creat Clear Calc 79 Estimated GFR > 60 Glucose 218 H POC Capillary Glucose 230 H 222 H Calcium 8.3 L Phosphorus 4.2 Magnesium 2.2 Total Bilirubin 0.9 AST 17 ALT 25 Alkaline Phosphatase 52 Total Protein 5.0 L Albumin 2.8 L 12/03/24 12/03/24 11:46 16:49 WBC RBC Hgb Hct MCV MCH MCHC RDW Plt Count MPV Immature Gran % (Auto) Neut % (Auto) Lymph % (Auto) [place] % (Auto) Eos % (Auto) Baso % (Auto) Lymph # (Auto) [place] # (Auto) Eos # (Auto) Baso # (Auto) Abs Immat Gran (auto) Absolute Neuts (auto) Absolute Nucleated RBC Nucleated RBC % % Immature Plt Fraction Sodium Potassium Chloride Carbon Dioxide Anion Gap BUN Creatinine Estim Creat Clear Calc Estimated GFR Glucose POC Capillary Glucose 132 H 119 H Calcium Phosphorus Magnesium Total Bilirubin AST ALT Alkaline Phosphatase Total Protein Albumin
[2024-12-03 19:36] VITALS: BP 162/87; PULSE 58; RESP 18; TEMP 36.5; O2SAT 99
[2024-12-03] MEDS: INSULIN GLARGINE (*BKC) 100 UNITS/ML 16 UNITS SUB-Q (23:06)
[2024-12-03 23:16] LABS: Glucose Point of Care 140 mg/dl (65-105)
[2024-12-03 23:39] VITALS: BP 141/73; PULSE 55; RESP 18; TEMP 36.5; O2SAT 99
[2024-12-04] VITALS (10 sets, daily range): BP systolic 126–165; BP diastolic 63–87; PULSE 63–78; RESP 17–25; TEMP 36.1–36.6; O2SAT 96–100
[2024-12-04] MEDS: dexAMETHasone SOD PHOS INJ 4 MG/ML VIAL IV PUSH ×3 (05:17→18:08)
[2024-12-04 05:27] LABS: Glucose Point of Care 126 mg/dl (65-105)
[2024-12-04 06:05] LABS: Anion Gap 5 mmol/L (4-12); Blood Urea Nitrogen 35 mg/dL (9-20); Calcium 8.3 mg/dL (8.4-10.2); Carbon Dioxide 27 mmol/L (22-30); Chloride 104 mmol/L (98-107); Estimated CRCL calculation 62 ml/min; Estimated Glomerular Filt Rate > 60; Glucose 137 mg/dL (65-110); Phosphorus 4.7 mg/dL (2.5-4.5); Potassium 4.2 mmol/L (3.4-5.0); Sodium 136 mmol/L (137-145); Triglycerides 80 mg/dL (<150)
[2024-12-04] MEDS: LACTATED RINGERS 1,000 ML 150 ML IV CONT (06:35)
[2024-12-04] MEDS: ceFAZolin 1 GM/NS 50 ML 1 GM/50 ML BAG IVPB (06:43)
--- NOTE | 2024-12-04 06:48 | P.PNAN_ITS ---
Anes - Eval Final PreProcedure Day of Procedure 12/04/24 06:48 Patient weight: normal Heart: regular rate and rhythm Lungs: clear to auscultation Airway: Mallampati scale class II Neurological: alert and oriented Last oral intake: >/= 8 hours ASA classification: III Emergent: no Anesthetic plan: proceed Anesthesia type and monitoring: general GIVS and standard monitoring Results Review: All pre-operative results and documents have been reviewed as part of the pre- operative evaluation. Informed Consent: The patient's anesthetic plan and its attendant risks and benefits were discussed with the patient/family/POA. Questions were solicited and answers provided to the satisfaction of the patient/family/POA.
--- NOTE | 2024-12-04 07:46 | P.PNNEUSUR_ITS ---
Subjective Date/time seen: 12/04/24 07:46 Interval history: I came to evaluate MR. Harrell, but he was off the floor getting his Gtube. From my perspective, okay for discharge planning with outpatient ENT follow up to monitor swallowing difficulty. Objective Data Vital Signs Vital Signs: Vital Signs - 24 hr 12/03/24 08:00 12/03/24 08:00 12/03/24 12:00 Temperature 97.0 F L 97.3 F L Pulse Rate 69 71 Respiratory Rate 18 18 Blood Pressure 132/66 140/72 Pulse Oximetry 98 95 Oxygen Delivery Room Air 12/03/24 19:36 12/03/24 20:00 12/03/24 23:39 Temperature 97.7 F 97.7 F Pulse Rate 58 L 55 L Respiratory Rate 18 18 Blood Pressure 162/87 H 141/73 H Pulse Oximetry 99 99 Oxygen Delivery Room Air 12/04/24 04:00 12/04/24 06:32 Temperature 97.7 F 96.9 F L Pulse Rate 74 63 Respiratory Rate 18 20 Blood Pressure 165/83 H 150/79 H Pulse Oximetry 100 99 Oxygen Delivery Room Air Intake/Output Intake/Output: Intake & Output 12/01/24 12/02/24 12/03/24 12/04/24 23:59 23:59 23:59 23:59 Intake Total 1454.2 2215.3 1250 165 Output Total 1999 1250 1305 2 Balance -545.8 965.3 -55 163 Meds/Results Medications: Active Medications Generic Name Dose Route Start Last Admin Trade Name Freq PRN Reason Stop Dose Admin Acetaminophen 650 mg 11/25/24 14:37 Acetaminophen 650 Mg Suppository RECTAL Q6H PRN Mild Pain (1-3) or Fever Hydrocodone Bitart/Acetaminophen 1 tab 11/25/24 08:38 Hydrocodone/Acetaminophen (*Crx) 5-325 Mg Tablet PO Q4H PRN Mild Pain (1-3) Al Hydrox/Mg Hydrox/Simethicone 20 ml 11/25/24 08:33 Mag Hydrox/Al Hydrox/Simeth 30 Ml Udc PO Q4H PRN Indigestion/Heartburn Albuterol 2 puff 11/24/24 13:34 11/26/24 06:30 Albuterol Sulfate (*Sp) Aerosol 1 Puff INHALATION 2 puff Q6HRT PRN Administration Shortness Of Breath Amlodipine Besylate 10 mg 11/30/24 09:00 12/03/24 10:21 Amlodipine Besylate 10 Mg Tablet FEED TUBE Not Given DAILY [facility] Bisacodyl 10 mg 11/25/24 08:33 Bisacodyl 10 Mg Suppository RECTAL DAILY PRN Constipation Carvedilol 25 mg 11/29/24 21:00 12/03/24 20:15 Carvedilol 25 Mg Tablet FEED TUBE Not Given Q12HR [facility] Cyclobenzaprine HCl 10 mg 11/25/24 09:56 Cyclobenzaprine Hcl 10 Mg Tablet PO TID PRN muscle spasm Dexamethasone Sodium Phosphate 4 mg 11/30/24 18:00 12/04/24 05:17 Dexamethasone Sod Phos Inj 4 Mg/Ml Vial IV PUSH 4 mg Q6HR [facility] Administration Dextrose 12.5 gm 11/24/24 12:04 Dextrose 50% 25 Gm/50 Ml Syringe IV PUSH PRN PRN Hypoglycemia Protocol Docusate Sodium 100 mg 11/25/24 09:00 11/25/24 17:50 Docusate Sodium 100 Mg Capsule PO Not Given Q12HR [facility] Doxazosin Mesylate 8 mg 11/29/24 21:00 12/03/24 20:15 Doxazosin Mesylate 4 Mg Tablet FEED TUBE Not Given QHS [facility] Fluticasone Propionate 2 spray 11/25/24 10:07 Fluticasone Propionate 0.05% Na Spr 16 Gm Btl (*Bkc) NASAL DAILY PRN sinus symptoms Glucagon 1 mg 11/24/24 12:04 Glucagon For Inj 1 Mg Vial IM PRN PRN Hypoglycemia Protocol Glucose 15 gm 11/24/24 12:04 Glucose Oral Gel 15 Gm Of Glucse In 37.5 Gm Tube PO PRN PRN Hypoglycemia Protocol Hydralazine HCl 20 mg 12/02/24 11:51 12/02/24 23:26 Hydralazine Hcl 20 Mg/Ml Vial IV PUSH 20 mg Q6H PRN Administration Hypertension Dextrose 1,000 mls @ 100 mls/hr 11/24/24 12:04 Dextrose 5% 1,000 Ml IVPB PRN PRN Hypoglycemia Protocol Dextrose 1,000 mls @ 50 mls/hr 12/01/24 09:51 Dextrose 10% IV CONT .Q20H PRN if PN is interrupted Amino Acids/Electrolytes/Dextrose 1,000 mls @ 80 mls/hr 12/01/24 11:30 12/04/24 02:29 Clinimix E 4.25%/5% Solution IV CONT Not Given .[id number] [facility] Protocol Fat Emulsion Intravenous 250 mls @ 20.833 mls/hr 12/01/24 11:30 12/03/24 14:11 Lipids 20% IVPB Not Given Q24H [facility] Lactated Ringer's 1,000 mls @ 150 mls/hr 12/04/24 06:30 12/04/24 07:41 Lr - Lactated Ringers Iv IV CONT 150 mls/hr .Q6H40M [facility] Infusion Insulin Aspart 2 - 5 units 11/27/24 00:00 12/04/24 05:24 Insulin Aspart (*Bkc) 100 Units/Ml SUB-Q Not Given Q6HR [facility] Protocol Insulin Glargine 16 units 12/01/24 21:00 12/03/24 23:06 Insulin Glargine (*Bkc) 100 Units/Ml SUB-Q 16 units HS [facility] Administration Loratadine 10 mg 11/29/24 21:00 12/03/24 20:15 Loratadine 10 Mg Tablet FEED TUBE Not Given QHS [facility] Losartan Potassium 25 mg 11/30/24 09:00 12/03/24 10:21 Losartan Potassium 25 Mg Tablet FEED TUBE Not Given DAILY [facility] Magnesium Oxide 400 mg 11/25/24 10:05 11/25/24 17:50 Magnesium Oxide 400 Mg Tablet PO Not Given DAILY [facility] Morphine Sulfate 2 mg 11/25/24 08:38 12/03/24 23:09 Morphine Sulfate (*Crx) 2 Mg/Ml Inj IV PUSH 2 mg Q2H PRN Administration Pain Rated 7-10 Ondansetron HCl 4 mg 11/25/24 08:38 Ondansetron Inj 4 Mg/2 Ml Vial IV PUSH Q8H PRN Nausea And Vomiting Pantoprazole Sodium 40 mg 11/23/24 21:00 12/03/24 20:11 Pantoprazole Sodium Iv 40 Mg Vial IV PUSH 40 mg Q12HR [facility] Administration Phenol 1 spray 12/02/24 11:11 12/02/24 12:02 Phenol/Sod Pheno [place] Ledesma (*Bkc) MUCOUS MEM 1 spray PRN PRN Administration Sore Throat Senna/Docusate Sodium 1 tab 11/25/24 08:38 Senna/Docusate Sodium Tablet PO HS PRN Constipation Tacrolimus 1 mg 11/29/24 21:00 12/03/24 20:16 Tacrolimus 0.5 Mg Capsule FEED TUBE Not Given Q12HR [facility] Radiology Results: ITS Impressions Soft Tissue Neck CT 11/23/24 20:12 IMPRESSION: Perioperative appearance of the neck on postoperative day 3 after anterior approach for cervical spine fusion, as detailed above. Brain MRI 11/26/24 10:29 IMPRESSION: 1. No evidence of acute infarct seen. 2. 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 Follow-up advised. 3. Susceptibility artifact in the aqued[place] which may be hemorrhagic. Follow-up advised. Modified Barium Swallow 12/02/24 12:35 IMPRESSION: 1. Aspiration. 2. Please refer to the speech therapy report for recommendations. Neck/Chest CT 12/02/24 22:32 IMPRESSION: Meningioma in the frontal lobe. Minimal residual postoperative changes in the left side of the neck between the thyroid cartilage and thyroid gland. Hyperdense area seen in the surgical bed which may be bone fragments. Slightly prominent soft tissues posterior to the left side of the thyroid cartilage most likely residual postoperative changes. Follow-up advised. 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 Possible subcapsular hematoma in the spleen. Clinical correlation advised. Labs Labs: Laboratory Results - last 24 hr 12/03/24 12/03/24 12/03/24 11:46 16:49 23:05 Sodium Potassium Chloride Carbon Dioxide Anion Gap BUN Creatinine Estim Creat Clear Calc Estimated GFR Glucose POC Capillary Glucose 132 H 119 H 140 H Calcium Phosphorus Triglycerides 12/04/24 05:22 Sodium 136 L Potassium 4.2 Chloride 104 Carbon Dioxide 27 Anion Gap 5 BUN 35 H Creatinine 1.09 Estim Creat Clear Calc 62 Estimated GFR > 60 Glucose 137 H POC Capillary Glucose 126 H Calcium 8.3 L Phosphorus 4.7 H Triglycerides 80
--- NOTE | 2024-12-04 07:51 | WPDGIPROGNO ---
Progress Note: A&P Assessment and Plan (1) S/P percutaneous endoscopic gastrostomy (PEG) tube placement: Code(s): Z93.1 - Gastrostomy status Status: Acute Assessment and Plan: PEG placed successfully. The patient can resume diet today, according to Nutrition Service recommendations. His should resume all his oral medications. Subjective Date/time seen: 12/04/24 07:51 Interval history: See EGD report Exam Narrative: unchanged. Objective Data Vital Signs Vital Signs: Vital Signs - 24 hr 12/03/24 08:00 12/03/24 08:00 12/03/24 12:00 Temperature 97.0 F L 97.3 F L Pulse Rate 69 71 Respiratory Rate 18 18 Blood Pressure 132/66 140/72 Pulse Oximetry 98 95 Oxygen Delivery Room Air 12/03/24 19:36 12/03/24 20:00 12/03/24 23:39 Temperature 97.7 F 97.7 F Pulse Rate 58 L 55 L Respiratory Rate 18 18 Blood Pressure 162/87 H 141/73 H Pulse Oximetry 99 99 Oxygen Delivery Room Air 12/04/24 04:00 12/04/24 06:32 Temperature 97.7 F 96.9 F L Pulse Rate 74 63 Respiratory Rate 18 20 Blood Pressure 165/83 H 150/79 H Pulse Oximetry 100 99 Oxygen Delivery Room Air Intake/Output Intake/Output: Intake & Output 12/01/24 12/02/24 12/03/24 12/04/24 23:59 23:59 23:59 23:59 Intake Total 1454.2 2215.3 1250 165 Output Total 1999 1250 1305 2 Balance -545.8 965.3 -55 163 Meds/Results Medications: Active Medications Generic Name Dose Route Start Last Admin Trade Name Freq PRN Reason Stop Dose Admin Acetaminophen 650 mg 11/25/24 14:37 Acetaminophen 650 Mg Suppository RECTAL Q6H PRN Mild Pain (1-3) or Fever Hydrocodone Bitart/Acetaminophen 1 tab 11/25/24 08:38 Hydrocodone/Acetaminophen (*Crx) 5-325 Mg Tablet PO Q4H PRN Mild Pain (1-3) Al Hydrox/Mg Hydrox/Simethicone 20 ml 11/25/24 08:33 Mag Hydrox/Al Hydrox/Simeth 30 Ml Udc PO Q4H PRN Indigestion/Heartburn Albuterol 2 puff 11/24/24 13:34 11/26/24 06:30 Albuterol Sulfate (*Sp) Aerosol 1 Puff INHALATION 2 puff Q6HRT PRN Administration Shortness Of Breath Amlodipine Besylate 10 mg 11/30/24 09:00 12/03/24 10:21 Amlodipine Besylate 10 Mg Tablet FEED TUBE Not Given DAILY [facility] Bisacodyl 10 mg 11/25/24 08:33 Bisacodyl 10 Mg Suppository RECTAL DAILY PRN Constipation Carvedilol 25 mg 11/29/24 21:00 12/03/24 20:15 Carvedilol 25 Mg Tablet FEED TUBE Not Given Q12HR [facility] Cyclobenzaprine HCl 10 mg 11/25/24 09:56 Cyclobenzaprine Hcl 10 Mg Tablet PO TID PRN muscle spasm Dexamethasone Sodium Phosphate 4 mg 11/30/24 18:00 12/04/24 05:17 Dexamethasone Sod Phos Inj 4 Mg/Ml Vial IV PUSH 4 mg Q6HR [facility] Administration Dextrose 12.5 gm 11/24/24 12:04 Dextrose 50% 25 Gm/50 Ml Syringe IV PUSH PRN PRN Hypoglycemia Protocol Docusate Sodium 100 mg 11/25/24 09:00 11/25/24 17:50 Docusate Sodium 100 Mg Capsule PO Not Given Q12HR [facility] Doxazosin Mesylate 8 mg 11/29/24 21:00 12/03/24 20:15 Doxazosin Mesylate 4 Mg Tablet FEED TUBE Not Given QHS [facility] Fluticasone Propionate 2 spray 11/25/24 10:07 Fluticasone Propionate 0.05% Na Spr 16 Gm Btl (*Bkc) NASAL DAILY PRN sinus symptoms Glucagon 1 mg 11/24/24 12:04 Glucagon For Inj 1 Mg Vial IM PRN PRN Hypoglycemia Protocol Glucose 15 gm 11/24/24 12:04 Glucose Oral Gel 15 Gm Of Glucse In 37.5 Gm Tube PO PRN PRN Hypoglycemia Protocol Hydralazine HCl 20 mg 12/02/24 11:51 12/02/24 23:26 Hydralazine Hcl 20 Mg/Ml Vial IV PUSH 20 mg Q6H PRN Administration Hypertension Dextrose 1,000 mls @ 100 mls/hr 11/24/24 12:04 Dextrose 5% 1,000 Ml IVPB PRN PRN Hypoglycemia Protocol Dextrose 1,000 mls @ 50 mls/hr 12/01/24 09:51 Dextrose 10% IV CONT .Q20H PRN if PN is interrupted Amino Acids/Electrolytes/Dextrose 1,000 mls @ 80 mls/hr 12/01/24 11:30 12/04/24 02:29 Clinimix E 4.25%/5% Solution IV CONT Not Given .[id number] [facility] Protocol Fat Emulsion Intravenous 250 mls @ 20.833 mls/hr 12/01/24 11:30 12/03/24 14:11 Lipids 20% IVPB Not Given Q24H [facility] Lactated Ringer's 1,000 mls @ 150 mls/hr 12/04/24 06:30 12/04/24 07:41 Lr - Lactated Ringers Iv IV CONT 150 mls/hr .Q6H40M [facility] Infusion Insulin Aspart 2 - 5 units 11/27/24 00:00 12/04/24 05:24 Insulin Aspart (*Bkc) 100 Units/Ml SUB-Q Not Given Q6HR [facility] Protocol Insulin Glargine 16 units 12/01/24 21:00 12/03/24 23:06 Insulin Glargine (*Bkc) 100 Units/Ml SUB-Q 16 units HS [facility] Administration Loratadine 10 mg 11/29/24 21:00 12/03/24 20:15 Loratadine 10 Mg Tablet FEED TUBE Not Given QHS [facility] Losartan Potassium 25 mg 11/30/24 09:00 12/03/24 10:21 Losartan Potassium 25 Mg Tablet FEED TUBE Not Given DAILY [facility] Magnesium Oxide 400 mg 11/25/24 10:05 11/25/24 17:50 Magnesium Oxide 400 Mg Tablet PO Not Given DAILY [facility] Morphine Sulfate 2 mg 11/25/24 08:38 12/03/24 23:09 Morphine Sulfate (*Crx) 2 Mg/Ml Inj IV PUSH 2 mg Q2H PRN Administration Pain Rated 7-10 Ondansetron HCl 4 mg 11/25/24 08:38 Ondansetron Inj 4 Mg/2 Ml Vial IV PUSH Q8H PRN Nausea And Vomiting Pantoprazole Sodium 40 mg 11/23/24 21:00 12/03/24 20:11 Pantoprazole Sodium Iv 40 Mg Vial IV PUSH 40 mg Q12HR [facility] Administration Phenol 1 spray 12/02/24 11:11 12/02/24 12:02 Phenol/Sod Pheno [place] Ledsema (*Bkc) MUCOUS MEM 1 spray PRN PRN Administration Sore Throat Senna/Docusate Sodium 1 tab 11/25/24 08:38 Senna/Docusate Sodium Tablet PO HS PRN Constipation Tacrolimus 1 mg 11/29/24 21:00 12/03/24 20:16 Tacrolimus 0.5 Mg Capsule FEED TUBE Not Given Q12HR [facility] Radiology Results: ITS Impressions Soft Tissue Neck CT 11/23/24 20:12 IMPRESSION: Perioperative appearance of the neck on postoperative day 3 after anterior approach for cervical spine fusion, as detailed above. Brain MRI 11/26/24 10:29 IMPRESSION: 1. No evidence of acute infarct seen. 2. 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 Follow-up advised. 3. Susceptibility artifact in the aqued[place] which may be hemorrhagic. Follow-up advised. Modified Barium Swallow 12/02/24 12:35 IMPRESSION: 1. Aspiration. 2. Please refer to the speech therapy report for recommendations. Neck/Chest CT 12/02/24 22:32 IMPRESSION: Meningioma in the frontal lobe. Minimal residual postoperative changes in the left side of the neck between the thyroid cartilage and thyroid gland. Hyperdense area seen in the surgical bed which may be bone fragments. Slightly prominent soft tissues posterior to the left side of the thyroid cartilage most likely residual postoperative changes. Follow-up advised. 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 Possible subcapsular hematoma in the spleen. Clinical correlation advised. Labs Labs: Laboratory Results - last 24 hr 12/03/24 12/03/24 12/03/24 11:46 16:49 23:05 Sodium Potassium Chloride Carbon Dioxide Anion Gap BUN Creatinine Estim Creat Clear Calc Estimated GFR Glucose POC Capillary Glucose 132 H 119 H 140 H Calcium Phosphorus Triglycerides 12/04/24 05:22 Sodium 136 L Potassium 4.2 Chloride 104 Carbon Dioxide 27 Anion Gap 5 BUN 35 H Creatinine 1.09 Estim Creat Clear Calc 62 Estimated GFR > 60 Glucose 137 H POC Capillary Glucose 126 H Calcium 8.3 L Phosphorus 4.7 H Triglycerides 80
[2024-12-04] MEDS: MAGNESIUM OXIDE 400 MG TABLET PO (09:10)
[2024-12-04] MEDS: LOSARTAN POTASSIUM 25 MG TABLET FEED TUBE (09:10)
[2024-12-04] MEDS: TACROLIMUS 0.5 MG CAPSULE 1 MG FEED TUBE ×2 (09:11→21:08)
[2024-12-04] MEDS: amLODIPine BESYLATE 10 MG TABLET FEED TUBE (09:11)
[2024-12-04] MEDS: carvediloL 25 MG TABLET FEED TUBE ×2 (09:11→21:05)
--- NOTE | 2024-12-04 10:42 | PCNFU ---
Nutrition Follow-Up Complete: Swallowing Difficulties as related to Dysphagia as evidenced by failed MBS 11/24 and 11/25. Goal: Meet estimated nutritional needs Patient is progressing towards goal. We will continue current goal. Pt current nutrition is Glucerna 1.2 480 ml QID with Flush 50 ml before and 50 ml after feedings. Last recorded weight is 83.9 kg, down from 85 kg on admit. Bowel Motility: Last reported BM 11/25, Colace is ordered PRN. Labs Reviewed: PO4 4.7, BUN 35, Glu 137, Na 136, Hct 41.6, Alb 2.8 Meds Noted: Protonix, Lantus Skin: WNL Additional Notes: Patient had PEG placed today. Plans to start tube feedings of Glucerna 1.2 bolus. Discussed feedings with nursing today, recommend starting with 240 ml bolus then give the other 240 ml 1 hour later. Flush 50 ml before and 50 ml after feedings. Care Coordination has patient set up for home tube feedings. Agree with diet orders. Will monitor weight, labs, skin, diet orders, meds every Saturday and Saturday.
[2024-12-04 11:35] LABS: Glucose Point of Care 108 mg/dl (65-105)
--- NOTE | 2024-12-04 11:59 | P.PNIM_ITS ---
Progress Note: A&P Assessment and Plan (1) Dysphagia: Code(s): R13.10 - Dysphagia, unspecified Status: Acute Assessment and Plan: Patient post-op day 4 of C3-4, C4-C5 ACDF it was requested patient stay overnigh t for observation due to high risk of bleeding secondary thrombocytopenia but patient was adamant about returning home patient presents with difficulty swallowing and anterior neck swelling. * CT Neck:Perioperative appearance of the neck on postoperative day 3 after anterior approach for cervical spine fusion * Neurosurgery following * Continue Dexamethasone q.6 * continue PPI b.i.d. * NPO as failed modified barium swallow, speech following * 11/25/24-Exploratory surgery without evacuation of hematoma and drain placement by neurosurgery * 11/25/24-2 units of platelets prior to surgery due to thrombocytopenia was given * 11/28/23-failed swallow again. Order placed for Dobhoff with tube feedings * 11/28/24-Dobhoff placed yesterday, now on Tube feeding. Plan for Modified barium on Saturday to reassess swallowing. * 11/30/24-failed Modified Barium today, will add speech therapy at this time. Will discontinue the steroid today. continue tube feedings via Dobhoff * 12/02/23- plan for modified barium tomorrow, continue speech therapy and exercises, continue steroid per Dr. Be request, will start PPN today for nutrition. 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 * Patient to start on tube feedings and company to come in to do teachings on tube feedings. * Patient needs to wait until tomorrow to go home to see how he tolerates tube feedings and because he will need to drive himself home, patient received anaesthesia this morning. (2) Thrombocytopenia, unspecified: Code(s): D69.6 - Thrombocytopenia, unspecified Status: Acute Assessment and Plan: Patient with history of liver transplant chronic history of thrombocytopenia * Initial platelet count 70>81 * 11/25/24 s/p transfuse 2 units platelets prior to surgery * Plt count 73 on 12/03/24. (3) Essential (primary) hypertension: Code(s): I10 - Essential (primary) hypertension Status: Acute Assessment and Plan: * Blood pressure 126/72. * continue home medications. * hydralazine prn (4) Type 2 diabetes mellitus without complications: Qualifiers: Diabetes mellitus jail insulin use: without jail use Qualified Code(s): E11.9 - Type 2 diabetes mellitus without complications Code(s): E11.9 - Type 2 diabetes mellitus without complications Status: Acute Assessment and Plan: * Accu-Cheks q6h * BG ranging to 03/30/2028 * Last Hgb A1C was 6.4 on 08/19/24 * low dose sliding scale insulin for NPO patients started * hold oral diabetic medications * hypoglycemic protocol in place * currently on PPN and NPO status * will increase Lantus dose today to 16 units (5) Liver transplant recipient: Code(s): Z94.4 - Liver transplant status Status: Acute Assessment and Plan: * tacrolimus on hold considering NPO status and Dobbhoff was dislodged * liver enzymes are stable as well as bilirubin. 12/03 * Will resume after peg tube placement 12/04 * Peg tube placed today. * Resume Tacrolimus. Plan Code status: Full code per patient DVT prophylaxis: SCD's Stress ulcer prophylaxis: Protonix 40 daily PT/OT notes: Ambulatory Disposition: Patient continues admission for dysphasia postop back surgery with an anterior approach also underwent a hematoma evacuation. Plan for peg tube. Will follow-up with ENT O/P Subjective Date/time seen: 12/04/24 11:59 Interval history: Patient sitting up in bed. Patient denies pain, palpitations, headache, dizziness, nausea, or vomiting. Patient wanting to go home later today. Explained to patient that we need to see how he tolerates the tube feedings and also he will need to wait until tomorrow because he has had anesthesia and he needs to drive himself home. Patient does not have another ride. I explained that we cannot sign off on him going home until after 24 hours from anesthesia and would also like to make sure tolerating tube feeds well. Review of Systems Review of Systems: All systems reviewed & are unremarkable except as noted in HPI and below Exam Const: General: no acute distress Resp: Effort & Inspection: normal respiratory effort Auscultation: clear to auscultation bilaterally Cardio: Rate: regular rate Rhythm: regular rhythm GI: GI Palp: Yes Soft to palpation Auscultation: normal bowel sounds Neuro: Speech: normal speech Extrem: General: no pedal edema Psych: Mental Status: mental status grossly normal Affect: normal affect Objective Data Vital Signs Vital Signs: Vital Signs - 24 hr 12/03/24 12:00 12/03/24 19:36 12/03/24 20:00 Temperature 97.3 F L 97.7 F Pulse Rate 71 58 L Respiratory Rate 18 18 Blood Pressure 140/72 162/87 H Pulse Oximetry 95 99 Oxygen Delivery Room Air 12/03/24 23:39 12/04/24 04:00 12/04/24 06:32 Temperature 97.7 F 97.7 F 96.9 F L Pulse Rate 55 L 74 63 Respiratory Rate 18 18 20 Blood Pressure 141/73 H 165/83 H 150/79 H Pulse Oximetry 99 100 99 Oxygen Delivery Room Air 12/04/24 07:44 12/04/24 07:54 12/04/24 08:00 Temperature Pulse Rate 67 68 Respiratory Rate 25 H 17 Blood Pressure 137/79 149/85 H Pulse Oximetry 100 100 Oxygen Delivery Room Air Room Air Room Air 12/04/24 08:04 12/04/24 09:11 12/04/24 11:54 Temperature 97.2 F L Pulse Rate 64 66 71 Respiratory Rate 24 H 18 Blood Pressure 140/87 126/72 Pulse Oximetry 100 98 Oxygen Delivery Room Air Intake/Output Intake/Output: Intake & Output 12/01/24 12/02/24 12/03/24 12/04/24 23:59 23:59 23:59 23:59 Intake Total 1454.2 2215.3 1250 300 Output Total 1999 1250 1305 117 Balance -545.8 965.3 -55 183 Meds/Results Medications: Active Medications Generic Name Dose Route Start Last Admin Trade Name Freq PRN Reason Stop Dose Admin Acetaminophen 650 mg 12/04/24 11:39 Acetaminophen Elixir 325 Mg/10.15 Ml Udc PO Q6H PRN Mild Pain (1-3) or Fever Hydrocodone Bitart/Acetaminophen 1 tab 11/25/24 08:38 Hydrocodone/Acetaminophen (*Crx) 5-325 Mg Tablet PO Q4H PRN Mild Pain (1-3) Al Hydrox/Mg Hydrox/Simethicone 20 ml 11/25/24 08:33 Mag Hydrox/Al Hydrox/Simeth 30 Ml Udc PO Q4H PRN Indigestion/Heartburn Albuterol 2 puff 03/18/25 13:34 11/26/24 06:30 Albuterol Sulfate (*Sp) Aerosol 1 Puff INHALATION 2 puff Q6HRT PRN Administration Shortness Of Breath Amlodipine Besylate 10 mg 11/30/24 09:00 12/04/24 09:11 Amlodipine Besylate 10 Mg Tablet FEED TUBE 10 mg DAILY ERNESTINE Administration Bisacodyl 10 mg 11/25/24 08:33 Bisacodyl 10 Mg Suppository RECTAL DAILY PRN Constipation Carvedilol 25 mg 11/29/24 21:00 12/04/24 09:11 Carvedilol 25 Mg Tablet FEED TUBE 25 mg Q12HR ERNESTINE Administration Cyclobenzaprine HCl 10 mg 11/25/24 09:56 Cyclobenzaprine Hcl 10 Mg Tablet PO TID PRN muscle spasm Dexamethasone Sodium Phosphate 4 mg 11/30/24 18:00 12/04/24 05:17 Dexamethasone Sod Phos Inj 4 Mg/Ml Vial IV PUSH 4 mg Q6HR ERNESTINE Administration Dextrose 12.5 gm 11/24/24 12:04 Dextrose 50% 25 Gm/50 Ml Syringe IV PUSH PRN PRN Hypoglycemia Protocol Docusate Sodium 100 mg 11/25/24 09:00 12/04/24 09:13 Docusate Sodium 100 Mg Capsule PO Not Given Q12HR ERNESTINE Doxazosin Mesylate 8 mg 11/29/24 21:00 12/03/24 20:15 Doxazosin Mesylate 4 Mg Tablet FEED TUBE Not Given QHS ERNESTINE Fluticasone Propionate 2 spray 11/25/24 10:07 Fluticasone Propionate 0.05% Na Spr 16 Gm Btl (*Bkc) NASAL DAILY PRN sinus symptoms Glucagon 1 mg 11/24/24 12:04 Glucagon For Inj 1 Mg Vial IM PRN PRN Hypoglycemia Protocol Glucose 15 gm 11/24/24 12:04 Glucose Oral Gel 15 Gm Of Glucse In 37.5 Gm Tube PO PRN PRN Hypoglycemia Protocol Guaifenesin/Dextromethorphan 5 ml 12/04/24 11:42 Guaifenesin/Dextromethorphan 10 Ml Udc PO Q4H PRN Cough Hydralazine HCl 20 mg 12/02/24 11:51 12/02/24 23:26 Hydralazine Hcl 20 Mg/Ml Vial IV PUSH 20 mg Q6H PRN Administration Hypertension Dextrose 1,000 mls @ 100 mls/hr 11/24/24 12:04 Dextrose 5% 1,000 Ml IVPB PRN PRN Hypoglycemia Protocol Dextrose 1,000 mls @ 50 mls/hr 12/01/24 09:51 Dextrose 10% IV CONT .Q20H PRN if PN is interrupted Insulin Aspart 2 - 5 units 11/27/24 00:00 12/04/24 11:44 Insulin Aspart (*Bkc) 100 Units/Ml SUB-Q Not Given Q6HR [facility] Protocol Insulin Glargine 16 units 12/01/24 21:00 12/03/24 23:06 Insulin Glargine (*Bkc) 100 Units/Ml SUB-Q 16 units HS ERNESTINE Administration Loratadine 10 mg 11/29/24 21:00 12/03/24 20:15 Loratadine 10 Mg Tablet FEED TUBE Not Given QHS ERNESTINE Losartan Potassium 25 mg 11/30/24 09:00 12/04/24 09:10 Losartan Potassium 25 Mg Tablet FEED TUBE 25 mg DAILY ERNESTINE Administration Magnesium Oxide 400 mg 11/25/24 10:05 12/04/24 09:10 Magnesium Oxide 400 Mg Tablet PO 400 mg DAILY ERNESTINE Administration Miscellaneous Information 0 each 12/04/24 00:01 12/04/24 11:45 Morphine - Needs Renew Order Please XX 01/03/25 00:00 Not Given CLARIFY ERNESTINE Morphine Sulfate 2 mg 11/25/24 08:38 12/03/24 23:09 Morphine Sulfate (*Crx) 2 Mg/Ml Inj IV PUSH 2 mg Q2H PRN Administration Pain Rated 7-10 Ondansetron HCl 4 mg 11/25/24 08:38 Ondansetron Inj 4 Mg/2 Ml Vial IV PUSH Q8H PRN Nausea And Vomiting Phenol 1 spray 12/02/24 11:11 12/02/24 12:02 Phenol/Sod Pheno [place] (*Bkc) MUCOUS MEM 1 spray PRN PRN Administration Sore Throat Senna/Docusate Sodium 1 tab 11/25/24 08:38 Senna/Docusate Sodium Tablet PO HS PRN Constipation Tacrolimus 1 mg 11/29/24 21:00 12/04/24 09:11 Tacrolimus 0.5 Mg Capsule FEED TUBE 1 mg Q12HR ERNESTINE Administration Radiology Results: ITS Impressions Soft Tissue Neck CT 11/23/24 20:12 IMPRESSION: Perioperative appearance of the neck on postoperative day 3 after anterior approach for cervical spine fusion, as detailed above. Brain MRI 11/26/24 10:29 IMPRESSION: 1. No evidence of acute infarct seen. 2. 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 Follow-up advised. 3. Susceptibility artifact in the aqued[place] of [place] which may be hemorrhagic. Follow-up advised. Modified Barium Swallow 12/02/24 12:35 IMPRESSION: 1. Aspiration. 2. Please refer to the speech therapy report for recommendations. Neck/Chest CT 12/02/24 22:32 IMPRESSION: Meningioma in the frontal lobe. Minimal residual postoperative changes in the left side of the neck between the thyroid cartilage and thyroid gland. Hyperdense area seen in the surgical bed which may be bone fragments. Slightly prominent soft tissues posterior to the left side of the thyroid cartilage most likely residual postoperative changes. Follow-up advised. 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 Possible subcapsular hematoma in the spleen. Clinical correlation advised. Labs Labs: Laboratory Results - last 24 hr 12/03/24 12/03/24 12/04/24 16:49 23:05 05:22 Sodium 136 L Potassium 4.2 Chloride 104 Carbon Dioxide 27 Anion Gap 5 BUN 35 H Creatinine 1.09 Estim Creat Clear Calc 62 Estimated GFR > 60 Glucose 137 H POC Capillary Glucose 119 H 140 H 126 H Calcium 8.3 L Phosphorus 4.7 H Triglycerides 80 12/04/24 11:12 Sodium Potassium Chloride Carbon Dioxide Anion Gap BUN Creatinine Estim Creat Clear Calc Estimated GFR Glucose POC Capillary Glucose 108 H Calcium Phosphorus Triglycerides Quality VTE Prophylaxis VTE prophylaxis: mechanical ordered
[2024-12-04] MEDS: MORPHINE SULFATE (*CRX) 2 MG/ML INJ IV PUSH (15:09)
[2024-12-04] MEDS: guaiFENesin/DEXTROMETHORPHAN 10 ML UDC 5 ML PO (15:19)
[2024-12-04 16:58] LABS: Basophils Percent Auto 0.1 % (0.2-1.2); Hematocrit 45.9 % (42.0-52.0); Hemoglobin 15.3 g/dL (14.0-18.0); Immature Granulocyte Absolute 0.12 K/mm3 (0.00-0.031); Immature Granulocyte Percent A 1.5 % (0-0.5); Lymphocytes Absolute Auto 0.47 K/mm3 (0.9-3.2); Lymphocytes Percent Auto 5.9 % (18.3-44.2); Mean Corpuscular HGB Conc 33.3 g/dl (32-36); Mean Corpuscular Hemoglobin 30.2 pg (26-34); Mean Corpuscular Volume 90.5 fl (80-100); Mean Platelet Volume 12.6 fl (7.4-10.4); Monocytes Absolute Auto 0.4 K/mm3 (0.1-0.6); Monocytes Percent Auto 5.2 % (2.6-8.5); Neutrophils Absolute Auto 6.9 K/mm3 (1.3-6.7); Neutrophils Percent Auto 87.3 % (45.5-73.1); Platelet Count Result 104 k/mm3 (150-375); Red Blood Count 5.07 M/mm3 (4.6-6.20); Red Cell Distribution Width 12.3 % (11.5-14.5); White Blood Count 7.9 K/mm3 (4.5-10.0)
[2024-12-04] MEDS: HYDROcodone/acetaminophen (*CRX) 5-325 MG TABLET 1 TAB PO (18:08)
[2024-12-04 18:29] LABS: Glucose Point of Care 179 mg/dl (65-105)
--- NOTE | 2024-12-04 18:36 | PC.NURSE ---
Pt did not want full 480ml of tube feed at dinner time. 240ml only given. Pt tolerated well and returned demonstration on administration and flush technique. Bed locked at 30 degrees.
[2024-12-04] MEDS: DOXAZOSIN MESYLATE 4 MG TABLET 8 MG FEED TUBE (21:06)
[2024-12-04] MEDS: DOCUSATE SODIUM 100 MG CAPSULE PO (21:06)
[2024-12-04] MEDS: LORATADINE 10 MG TABLET FEED TUBE (21:07)
[2024-12-04] MEDS: INSULIN GLARGINE (*BKC) 100 UNITS/ML 16 UNITS SUB-Q (21:07)
[2024-12-05] VITALS: BP 100/59; PULSE 62; RESP 18; TEMP 36.8; O2SAT 100
[2024-12-05] MEDS: INSULIN ASPART (*BKC) 100 UNITS/ML SUB-Q ×2 (01:16→12:39)
[2024-12-05] MEDS: dexAMETHasone SOD PHOS INJ 4 MG/ML VIAL IV PUSH ×3 (01:16→12:38)
[2024-12-05 01:21] LABS: Glucose Point of Care 201 mg/dl (65-105)
[2024-12-05 04:00] VITALS: BP 143/72; PULSE 57; RESP 18; TEMP 36.4; O2SAT 99
[2024-12-05 05:25] LABS: Glucose Point of Care 138 mg/dl (65-105)
[2024-12-05 06:09] LABS: Anion Gap 8 mmol/L (4-12); Blood Urea Nitrogen 38 mg/dL (9-20); Calcium 8.3 mg/dL (8.4-10.2); Carbon Dioxide 28 mmol/L (22-30); Chloride 101 mmol/L (98-107); Estimated CRCL calculation 68 ml/min; Estimated Glomerular Filt Rate > 60; Glucose 121 mg/dL (65-110); Phosphorus 4.5 mg/dL (2.5-4.5); Potassium 4.1 mmol/L (3.4-5.0); Sodium 137 mmol/L (137-145)
[2024-12-05 08:00] VITALS: BP 98/59; PULSE 71; RESP 18; TEMP 36.4; O2SAT 100
[2024-12-05 09:28] VITALS: BP 110/78
[2024-12-05 10:10] VITALS: PULSE 71
[2024-12-05] MEDS: carvediloL 12.5 MG TABLET PO (10:10)
[2024-12-05] MEDS: MAG HYDROX/AL HYDROX/SIMETH 30 ML UDC 20 ML PO ×2 (10:10→15:02)
[2024-12-05] MEDS: MAGNESIUM OXIDE 400 MG TABLET PO (10:11)
[2024-12-05] MEDS: TACROLIMUS 0.5 MG CAPSULE 1 MG FEED TUBE (10:11)
[2024-12-05] MEDS: DOCUSATE SODIUM 100 MG CAPSULE PO (10:11)
--- NOTE | 2024-12-05 10:30 | PC.NURSE ---
Pt educated on bed alarm and tube feedings and medicine administration through peg tube.
--- NOTE | 2024-12-05 11:30 | PM.DS ---
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 Patient failed multiple swallowing tests. Patient had a peg tube placed and tolerating tube feeding well. Radiology Results: ITS Impressions Soft Tissue Neck CT 11/23/24 20:12 IMPRESSION: Perioperative appearance of the neck on postoperative day 3 after anterior approach for cervical spine fusion, as detailed above. Brain MRI 11/26/24 10:29 IMPRESSION: 1. No evidence of acute infarct seen. 2. 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 Follow-up advised. 3. Susceptibility artifact in the aqued[place] which may be hemorrhagic. Follow-up advised. Modified Barium Swallow 12/02/24 12:35 IMPRESSION: 1. Aspiration. 2. Please refer to the speech therapy report for recommendations. Neck/Chest CT 12/02/24 22:32 IMPRESSION: Meningioma in the frontal lobe. Minimal residual postoperative changes in the left side of the neck between the thyroid cartilage and thyroid gland. Hyperdense area seen in the surgical bed which may be bone fragments. Slightly prominent soft tissues posterior to the left side of the thyroid cartilage most likely residual postoperative changes. Follow-up advised. 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 Possible subcapsular hematoma in the spleen. Clinical correlation advised. Patient to follow up with Dr. Be outpatient s/p cervical surgery and to have follow up scans of Meningioma. Patient to see ENT outpatient. Status at Discharge Functional status at discharge: independent ambulation Overall status at discharge: patient is progressing back to baseline Time Spent with Patient Time attestation: Total time spent providing and/or coordinating discharge services: Time spent: Greater than 30 minutes Exam Const: General: comfortable and no acute distress Resp: Effort & Inspection: normal respiratory effort Auscultation: clear to auscultation bilaterally Cardio: Rate: regular rate Rhythm: regular rhythm GI: GI Palp: Yes Soft to palpation Auscultation: normal bowel sounds Other: Peg tube in place. Old dried blood on dressing. No redness, swelling or drainage from site. Extrem: General: no pedal edema Psych: Mental Status: mental status grossly normal Affect: normal affect DS: Data Data Completed and Pending Labs on day of discharge: Labs from last 24 hours 12/05/24 12/05/24 12/05/24 05:32 04:58 00:11 WBC RBC Hgb Hct MCV MCH MCHC RDW Plt Count MPV Immature Gran % (Auto) Neut % (Auto) Lymph % (Auto) [place] % (Auto) Eos % (Auto) Baso % (Auto) Lymph # (Auto) [place] # (Auto) Eos # (Auto) Baso # (Auto) Abs Immat Gran (auto) Absolute Neuts (auto) Absolute Nucleated RBC Nucleated RBC % Sodium 137 Potassium 4.1 Chloride 101 Carbon Dioxide 28 Anion Gap 8 BUN 38 H Creatinine 0.99 Estim Creat Clear Calc 68 Estimated GFR > 60 Glucose 121 H POC Capillary Glucose 138 H 201 H Calcium 8.3 L Phosphorus 4.5 12/04/24 12/04/24 12/04/24 18:10 11:12 05:16 WBC 7.9 RBC 5.07 Hgb 15.3 Hct 45.9 MCV 90.5 MCH 30.2 MCHC 33.3 RDW 12.3 Plt Count 104 L MPV 12.6 H Immature Gran % (Auto) 1.5 H Neut % (Auto) 87.3 H Lymph % (Auto) 5.9 L [place] % (Auto) 5.2 Eos % (Auto) 0.0 Baso % (Auto) 0.1 L Lymph # (Auto) 0.47 L [place] # (Auto) 0.4 Eos # (Auto) 0.0 Baso # (Auto) 0.0 Abs Immat Gran (auto) 0.12 H Absolute Neuts (auto) 6.9 H Absolute Nucleated RBC 0.000 Nucleated RBC % 0.0 Sodium Potassium Chloride Carbon Dioxide Anion Gap BUN Creatinine Estim Creat Clear Calc Estimated GFR Glucose POC Capillary Glucose 179 H 108 H Calcium Phosphorus Discharge Plan Discharge Attending physician on discharge: Kain Perry Consulting providers: Paula Cooper; Sylvain Be Discharging Clinician: Sandi Martins Anticipated Discharge Date/Time: 12/05/24 13:00 Patient Disposition: Home Health Service Activity: as tolerated Diet: tube feeding Discharge Instructions: Per Care Coordination. Patient to have At [facility] ([place], [place]) [phone] for RN teaching for new tube feeding. RN please fax discharge instructions to: [phone]* Glucerna 1.5 tube feed 360 ml 4 times a day with water flush of 75 ml before and 75 ml water flush after the tube feeding. Report to provider if you develop difficulty tolerating tube feedings, nausea, or vomiting. Take medications through feeding tube. Keep your follow up appointment with Dr. Be on 12/11/24. Keep area around peg tube clean and dry. Tape tube to abdomen to prevent tugging or getting tube caught. Thank you for entrusting [facility] with your healthcare! Patient Instructions: Antibiotic Form Patient Language: American Stand Alone Forms: General Discharge Information Follow-up/Referrals: [facility] [place] [Outside] - Call for Appointment Sylvain Be MD [Physician] - Keep Reg. Scheduled Appt. Sharri Argueta DO [Primary Care Provider] - 1 Week Discharge Medications: New docusate sodium 50 mg/5 mL liquid 100 mg PO BID PRN (Reason: constipation) Qty: 473 0RF Continued amlodipine 10 mg tablet 10 mg PO DAILY Patient Comments: QAM carvedilol 25 mg tablet 25 mg PO Q12H doxazosin 8 mg tablet 8 mg PO DAILY Patient Comments: HS magnesium oxide 400 mg magnesium tablet 400 mg PO DAILY triamcinolone acetonide [Nasacort] 55 mcg aerosol,spray 1 spray NASAL DAILY PRN (Reason: sinus symptoms) tacrolimus 1 mg capsule 1 mg PO Q12H Patient Comments: CURRENTLY TAKING 1MG BID loratadine [Claritin] 10 mg tablet 10 mg PO DAILY Patient Comments: QHS albuterol sulfate [ProAir HFA] 90 mcg/actuation HFA aerosol inhaler 2 puff INHALATION Q4-6H PRN (Reason: shortness of breath or wheezing) Qty: 8.5 5RF metformin 500 mg tablet 1,000 mg PO BID Rx Instructions: TAKE 2 TABLETS BY MOUTH TWICE DAILY oxycodone 5 mg tablet 5 mg PO Q4H PRN (Reason: pain) Qty: 32 0RF cyclobenzaprine 5 mg tablet 5 mg PO HS Qty: 30 0RF cyclobenzaprine 10 mg tablet 10 mg PO TID PRN (Reason: muscle spasm) Qty: 180 1RF losartan 25 mg tablet See Rx Instructions .ROUTE .COMPLEX Qty: 100 2RF Dose Instruction: TAKE 1 TABLET BY MOUTH DAILY Patient Comments: QAM Rx Instructions: TAKE 1 TABLET BY MOUTH DAILY Date of admission: 11/24/24 13:17 Primary Care Provider: Sharri Argueta Admitting Provider: Kitty Sanders Attending physician on admission: Shari Sebastian Condition: Improved Hospitalist MIPS Heart Failure (Exclusion) Patient has history of Heart Transplant or Left Ventricular Assistive Device?: No IF YES, STOP HERE Heart Failure (Qualifier) Patient has current or prior documentation of LVEF less than or equal to 40%, or mod/servere depressed LVSF?: No IF NO, STOP HERE
[2024-12-05 12:00] VITALS: BP 144/66; PULSE 64; RESP 18; TEMP 36.9; O2SAT 98
[2024-12-05 12:08] LABS: Glucose Point of Care 255 mg/dl (65-105)
--- NOTE | 2024-12-05 14:45 | WPDNEUROSGPN ---
Progress Note: A&P Assessment and Plan (1) Status post cervical spinal fusion: Code(s): Z98.1 - Arthrodesis status Status: Acute Assessment and Plan: PAtient is doing well overall s/p ACDF with postoperative wound exploration Tolerating tube feedings Expect gradual return of swallowing function Agree with plan for d/c with outpatient follow up with Dr. Be Subjective Date/time seen: 12/05/24 14:45 Interval history: Patient notes control of secretions Voice stronger Tolerating tube feedings Exam Narrative: Awake, alert oriented x 3 Speech Clear; voice hoarse but projecting BRIANNA EOMI Face= TML MAEW with good strength Objective Data Vital Signs Vital Signs: Vital Signs - 24 hr 12/04/24 16:00 12/04/24 19:53 12/04/24 21:05 Temperature 36.4 C 36.6 C Pulse Rate 78 67 68 Respiratory Rate 18 20 Blood Pressure 136/76 132/63 Pulse Oximetry 98 96 Oxygen Delivery 12/04/24 21:11 12/05/24 00:00 12/05/24 04:00 Temperature 36.8 C 36.4 C Pulse Rate 62 57 L Respiratory Rate 18 18 Blood Pressure 100/59 L 143/72 H Pulse Oximetry 100 99 Oxygen Delivery Room Air 12/05/24 07:40 12/05/24 08:00 12/05/24 08:00 Temperature 36.4 C 36.4 C Pulse Rate 71 71 Respiratory Rate 18 18 Blood Pressure 98/59 L 98/59 L Pulse Oximetry 100 100 Oxygen Delivery Room Air 12/05/24 09:28 12/05/24 10:10 12/05/24 12:00 Temperature 36.9 C Pulse Rate 71 64 Respiratory Rate 18 Blood Pressure 110/78 144/66 H Pulse Oximetry 98 Oxygen Delivery Intake/Output Intake/Output: Intake & Output 12/02/24 12/03/24 12/04/24 12/05/24 23:59 23:59 23:59 23:59 Intake Total 2215.3 1250 300 0 Output Total 1250 1305 327 450 Balance 965.3 -55 -27 -450 Meds/Results Medications: Active Medications Generic Name Dose Route Start Last Admin Trade Name Freq PRN Reason Stop Dose Admin Acetaminophen 650 mg 12/04/24 11:39 Acetaminophen Elixir 325 Mg/10.15 Ml Udc PO Q6H PRN Mild Pain (1-3) or Fever Hydrocodone Bitart/Acetaminophen 1 tab 11/25/24 08:38 12/04/24 18:08 Hydrocodone/Acetaminophen (*Crx) 5-325 Mg Tablet PO 1 tab Q4H PRN Administration Mild Pain (1-3) Al Hydrox/Mg Hydrox/Simethicone 20 ml 11/25/24 08:33 12/05/24 10:10 Mag Hydrox/Al Hydrox/Simeth 30 Ml Udc PO 20 ml Q4H PRN Administration Indigestion/Heartburn Albuterol 2 puff 11/24/24 13:34 11/26/24 06:30 Albuterol Sulfate (*Sp) Aerosol 1 Puff INHALATION 2 puff Q6HRT PRN Administration Shortness Of Breath Amlodipine Besylate 10 mg 11/30/24 09:00 12/05/24 09:25 Amlodipine Besylate 10 Mg Tablet FEED TUBE Not Given DAILY ERNESTINE Bisacodyl 10 mg 11/25/24 08:33 Bisacodyl 10 Mg Suppository RECTAL DAILY PRN Constipation Carvedilol 25 mg 11/29/24 21:00 12/05/24 09:25 Carvedilol 25 Mg Tablet FEED TUBE Not Given Q12HR ERNESTINE Cyclobenzaprine HCl 10 mg 11/25/24 09:56 Cyclobenzaprine Hcl 10 Mg Tablet PO TID PRN muscle spasm Dexamethasone Sodium Phosphate 4 mg 11/30/24 18:00 12/05/24 12:38 Dexamethasone Sod Phos Inj 4 Mg/Ml Vial IV PUSH 4 mg Q6HR ERNESTINE Administration Dextrose 12.5 gm 11/24/24 12:04 Dextrose 50% 25 Gm/50 Ml Syringe IV PUSH PRN PRN Hypoglycemia Protocol Docusate Sodium 100 mg 11/25/24 09:00 12/05/24 10:11 Docusate Sodium 100 Mg Capsule PO 100 mg Q12HR ERNESTINE Administration Doxazosin Mesylate 8 mg 11/29/24 21:00 12/04/24 21:06 Doxazosin Mesylate 4 Mg Tablet FEED TUBE 8 mg QHS ERNESTINE Administration Fluticasone Propionate 2 spray 11/25/24 10:07 Fluticasone Propionate 0.05% Na Spr 16 Gm Btl (*Bkc) NASAL DAILY PRN sinus symptoms Glucagon 1 mg 11/24/24 12:04 Glucagon For Inj 1 Mg Vial IM PRN PRN Hypoglycemia Protocol Glucose 15 gm 11/24/24 12:04 Glucose Oral Gel 15 Gm Of Glucse In 37.5 Gm Tube PO PRN PRN Hypoglycemia Protocol Guaifenesin/Dextromethorphan 5 ml 12/04/24 11:42 12/04/24 15:19 Guaifenesin/Dextromethorphan 10 Ml Udc PO 5 ml Q4H PRN Administration Cough Hydralazine HCl 20 mg 12/02/24 11:51 12/02/24 23:26 Hydralazine Hcl 20 Mg/Ml Vial IV PUSH 20 mg Q6H PRN Administration Hypertension Dextrose 1,000 mls @ 100 mls/hr 11/24/24 12:04 Dextrose 5% 1,000 Ml IVPB PRN PRN Hypoglycemia Protocol Dextrose 1,000 mls @ 50 mls/hr 12/01/24 09:51 Dextrose 10% IV CONT .Q20H PRN if PN is interrupted Insulin Aspart 2 - 5 units 11/27/24 00:00 12/05/24 12:39 Insulin Aspart (*Bkc) 100 Units/Ml SUB-Q 3 units Q6HR ERNESTINE Administration Protocol Insulin Glargine 16 units 12/01/24 21:00 12/04/24 21:07 Insulin Glargine (*Bkc) 100 Units/Ml SUB-Q 16 units HS ERNESTINE Administration Loratadine 10 mg 11/29/24 21:00 12/04/24 21:07 Loratadine 10 Mg Tablet FEED TUBE 10 mg QHS ERNESTINE Administration Losartan Potassium 25 mg 11/30/24 09:00 12/05/24 09:25 Losartan Potassium 25 Mg Tablet FEED TUBE Not Given DAILY ERNESTINE Magnesium Oxide 400 mg 11/25/24 10:05 12/05/24 10:11 Magnesium Oxide 400 Mg Tablet PO 400 mg DAILY ERNESTINE Administration Miscellaneous Information 0 each 12/04/24 00:01 12/04/24 11:45 Morphine - Needs Renew Order Please XX 01/03/25 00:00 Not Given CLARIFY ERNESTINE Ondansetron HCl 4 mg 11/25/24 08:38 Ondansetron Inj 4 Mg/2 Ml Vial IV PUSH Q8H PRN Nausea And Vomiting Phenol 1 spray 12/02/24 11:11 12/02/24 12:02 Phenol/Sod Pheno [place] Led[place]ma (*Bkc) MUCOUS MEM 1 spray PRN PRN Administration Sore Throat Senna/Docusate Sodium 1 tab 11/25/24 08:38 Senna/Docusate Sodium Tablet PO HS PRN Constipation Tacrolimus 1 mg 11/29/24 21:00 12/05/24 10:11 Tacrolimus 0.5 Mg Capsule FEED TUBE 1 mg Q12HR ERNESTINE Administration Radiology Results: ITS Impressions Soft Tissue Neck CT 11/23/24 20:12 IMPRESSION: Perioperative appearance of the neck on postoperative day 3 after anterior approach for cervical spine fusion, as detailed above. Brain MRI 11/26/24 10:29 IMPRESSION: 1. No evidence of acute infarct seen. 2. 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 Follow-up advised. 3. Susceptibility artifact in the [place] which may be hemorrhagic. Follow-up advised. Modified Barium Swallow 12/02/24 12:35 IMPRESSION: 1. Aspiration. 2. Please refer to the speech therapy report for recommendations. Neck/Chest CT 12/02/24 22:32 IMPRESSION: Meningioma in the frontal lobe. Minimal residual postoperative changes in the left side of the neck between the thyroid cartilage and thyroid gland. Hyperdense area seen in the surgical bed which may be bone fragments. Slightly prominent soft tissues posterior to the left side of the thyroid cartilage most likely residual postoperative changes. Follow-up advised. 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 Possible subcapsular hematoma in the spleen. Clinical correlation advised. Labs Labs: Laboratory Results - last 24 hr 12/04/24 12/04/24 12/05/24 05:16 18:10 00:11 WBC 7.9 RBC 5.07 Hgb 15.3 Hct 45.9 MCV 90.5 MCH 30.2 MCHC 33.3 RDW 12.3 Plt Count 104 L MPV 12.6 H Immature Gran % (Auto) 1.5 H Neut % (Auto) 87.3 H Lymph % (Auto) 5.9 L [place] % (Auto) 5.2 Eos % (Auto) 0.0 Baso % (Auto) 0.1 L Lymph # (Auto) 0.47 L [place] # (Auto) 0.4 Eos # (Auto) 0.0 Baso # (Auto) 0.0 Abs Immat Gran (auto) 0.12 H Absolute Neuts (auto) 6.9 H Absolute Nucleated RBC 0.000 Nucleated RBC % 0.0 Sodium Potassium Chloride Carbon Dioxide Anion Gap BUN Creatinine Estim Creat Clear Calc Estimated GFR Glucose POC Capillary Glucose 179 H 201 H Calcium Phosphorus 12/05/24 12/05/24 12/05/24 04:58 05:32 12:04 WBC RBC Hgb Hct MCV MCH MCHC RDW Plt Count MPV Immature Gran % (Auto) Neut % (Auto) Lymph % (Auto) [place] % (Auto) Eos % (Auto) Baso % (Auto) Lymph # (Auto) [place] # (Auto) Eos # (Auto) Baso # (Auto) Abs Immat Gran (auto) Absolute Neuts (auto) Absolute Nucleated RBC Nucleated RBC % Sodium 137 Potassium 4.1 Chloride 101 Carbon Dioxide 28 Anion Gap 8 BUN 38 H Creatinine 0.99 Estim Creat Clear Calc 68 Estimated GFR > 60 Glucose 121 H POC Capillary Glucose 138 H 255 H Calcium 8.3 L Phosphorus 4.5
--- NOTE | 2024-12-05 15:15 | PC.NURSE ---
Pt escorted to personal vehicle in w/c per [employer]. Pt safely into vehicle prior to [employer] return to building.
--- NOTE | 2024-12-05 16:27 | P.PNAN_ITS ---
Anes - Prog Note Post-Op Date/Time: 12/05/24 16:27 Cardiovascular status: normal Respiratory status: normal Airway patency: baseline Mental status: baseline Post-Op hydration status: normal Vital Signs: Last Vital Signs Temp 36.9 C 12/05/24 12:00 Pulse 64 12/05/24 12:00 Resp 18 12/05/24 12:00 BP 144/66 H 12/05/24 12:00 Pulse Ox 98 12/05/24 12:00 O2 Del Method Room Air 12/05/24 07:40 O2 Flow Rate 6 11/25/24 08:45 Pain Score (VAS): 1 I/O: Intake & Output 12/05/24 12/05/24 12/05/24 07:59 15:59 23:59 Intake Total 0 Output Total 450 Balance -450 0 Laboratory Tests 12/04/24 05:16 12/05/24 05:32 12/04/24 12/04/24 12/05/24 05:16 18:10 00:11 WBC 7.9 RBC 5.07 Hgb 15.3 Hct 45.9 MCV 90.5 MCH 30.2 MCHC 33.3 RDW 12.3 Plt Count 104 L MPV 12.6 H Immature Gran % (Auto) 1.5 H Neut % (Auto) 87.3 H Lymph % (Auto) 5.9 L [place] % (Auto) 5.2 Eos % (Auto) 0.0 Baso % (Auto) 0.1 L Lymph # (Auto) 0.47 L [place] # (Auto) 0.4 Eos # (Auto) 0.0 Baso # (Auto) 0.0 Abs Immat Gran (auto) 0.12 H Absolute Neuts (auto) 6.9 H Absolute Nucleated RBC 0.000 Nucleated RBC % 0.0 Sodium Potassium Chloride Carbon Dioxide Anion Gap BUN Creatinine Estim Creat Clear Calc Estimated GFR Glucose POC Capillary Glucose 179 H 201 H Calcium Phosphorus 12/05/24 12/05/24 12/05/24 04:58 05:32 12:04 WBC RBC Hgb Hct MCV MCH MCHC RDW Plt Count MPV Immature Gran % (Auto) Neut % (Auto) Lymph % (Auto) [place] % (Auto) Eos % (Auto) Baso % (Auto) Lymph # (Auto) [place] # (Auto) Eos # (Auto) Baso # (Auto) Abs Immat Gran (auto) Absolute Neuts (auto) Absolute Nucleated RBC Nucleated RBC % Sodium 137 Potassium 4.1 Chloride 101 Carbon Dioxide 28 Anion Gap 8 BUN 38 H Creatinine 0.99 Estim Creat Clear Calc 68 Estimated GFR > 60 Glucose 121 H POC Capillary Glucose 138 H 255 H Calcium 8.3 L Phosphorus 4.5 Post-procedural complaints: none Patient Feedback: Patient satisfied with anesthetic care.
== END 2024-12-05 15:21 | disposition home health service (06) | DRG 982 ==
LOC: ANHED 18:56 → ANH3MEDSUR 22:06 → ANH3MED 11-24 04:36
PROVIDERS: Internal Medicine Gastroenterology; Neurological Surgery; Nurse Practitioner Acute Care; Nurse Practitioner Family; Admitting Provider Internal Medicine; Emergency Provider Emergency Medicine; PCP Family Medicine; Visit Provider Nurse Practitioner Family
PROC: 0W9600Z Drainage of Neck with Drainage Device, Open Approach (ICD-10-PCS; CPT 63030; principal; 2024-11-25 07:30)
PROC: 0DH63UZ Insertion of Feeding Device into Stomach, Percutaneous Approach (ICD-10-PCS; CPT 43246; principal; 2024-12-04 07:15)
DX: K91.89 Other postprocedural complications and disorders of digestive system (principal); Z94.4 Liver transplant status; R13.12 Dysphagia, oropharyngeal phase; Z98.1 Arthrodesis status; D32.9 Benign neoplasm of meninges, unspecified; G89.18 Other acute postprocedural pain; D69.6 Thrombocytopenia, unspecified; E11.9 Type 2 diabetes mellitus without complications; J45.909 Unspecified asthma, uncomplicated; I10 Essential (primary) hypertension
CPT/HCPCS: 36415; 36430; 43246; 43752; 70491; 70553; 71260; 74230; 80048; 80053; 82948; 83735; 84100; 84466; 84478; 85025; 85027; 85055; 85610; 85730; 86850; 86900; 86901; 87637; 92526; 92611; 94640; 96361; 96374; 96375; 96376; 97161; 99285; A9270; A9579; G0378; J0330; J0360; J0690; J1100; J1171; J1815; J2003; J2060; J2250; J2270; J2405; J2470; J2704; J3010; J3370; J7030; J7042; J7050; J7120; P9034; Q9967

== ENCOUNTER 2025-01-20 08:10 | Outpatient (CLI) | payer MEDICARE, SELFPAY ==
--- NOTE | ~2025-01-20 | XR_ITS ---
MODIFIED ESOPHAGRAM HISTORY: Gastrostomy status TECHNIQUE: Modified barium esophagram was performed on 01/20/2025. I administered fluoroscopy and perf ormed the exam with speech pathologist. Patient was seated for lateral fluoroscopic imaging for costa stion of thin liquids, pudding, solids and quantified amounts, followed by thin liquids in uncontroll ed amounts. This was recorded on tape. A single fluoroscopic spot image was also recorded. The DAP fo r this procedure was 1.4 Gycm2. The amount of fluoroscopy time used during this procedure was 2.4 min utes. FINDINGS: Oral stage: Adequate function. Pharyngeal stage: Reduced laryngeal elevation and tongue base retraction. Vallecular and piriform sin us residue. Laryngeal penetration with aspiration. 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 Cervical/esophageal stage: Adequate function. IMPRESSION: Pharyngeal dysphagia with laryngeal penetration and aspiration. Please correlate with sp eech pathologist findings and specific feeding recommendations. Reviewed, dictated and finalized at location A. IMPRESSION: Pharyngeal dysphagia with laryngeal penetration and aspiration. Pl ease correlate with speech pathologist findings and specific feeding recommenda tions.
--- OUTSIDE RECORDS SUMMARY | 2025-01-20 08:19 | XMS_ITS | Clinical Summary ---
Author Organization [facility] Address [facility] [place] [address] Care Team Providers Care Chlorinator Operator Name Role Phone Rod Sanches MD Primary Care Provider [phone] Social History Tobacco Use Types Packs/Day Years [...] Td Vaccines ( 1 - Tdap) 1974 Pneumococcal Vaccine: 50+ Ye ars (1 of 1 - PCV) 2005 Zoster Vaccines (1 of 2) 2005 COVID-19 Vaccine (1 - 2023-2 5 season) 2024 RSV Immunization or 60+ Years (1 [...] age to complete this topic Care Teams Chlorinator Operator Relationship Specialty Start Date End Date Rod Sanches MD [address] [place] [address] PCP - General 09/10/15
--- OUTSIDE RECORDS SUMMARY | 2025-01-20 08:19 | XMS_ITS | Encounter Summary ---
Author Organization [facility] Address [address] [place] [address] Care Team Providers Care Chicken And Fish Cleaner Name Role Phone Rod Sanches MD Primary Care Provider [phone] Phylicia Beck RN Unavailable Unavailable Sharri Argueta DO Primary Care Provider [phone] Rod Sanches MD Primary Care Provider [phone] Sharri Argueta DO Primary Care Provider [phone] Qi Story RN Unavailable Unavailable Encounter Details Date Type Department Care Team (Late st Contact Info) Description 05/06/2018 Nutrition [facility] [address] [place] [id number] [address]va Roque [address]/LOLLY Social History Tobacco Use Types Packs/Day Years Used Date Smoking Tobacco: Former Cigarettes Q uit: 09/11/1983 Smokeless Tobacco: Never Alcohol Use Standard Drinks/Week Comments No 0 (1 standard drink = 0.6 oz pur e alcohol) Sex and Gender Information Value Date Recorded Sex Assigned at Not on file Legal Sex Male 5:15 PM HUMAN RESOURCE STATISTICIAN Gender Identity Not on file Sexual Orientation Straight 07/31/2024 7: 47 PM HUMAN RESOURCE STATISTICIAN documented as of this encounter Progress Notes * Marva Roque RD/LOLLY - 05/06/2018 2:04 PM CDT Nutrition Note: Called pt to discuss a Consistent Carb diet: Pt is fairly consistent with his intake of 2 Boost Glucose drinks at breakfasts and lunches. 3 day reported intake of dinner and HS snacks were... Saturday - Dinner - 6 sausage links, 4 eggs, 2 toast, HS - Snickers Bar Saturday- Dinner - 6 fried chicken wings, uzbek fries, HS - 6 cookies Saturday - [...] Description 02/02/2025 12:00 PM CDT Office Visit [facility] [address] [place] [address], [place] [address] Ramon Morales MD [address] [place] [address] [place] [address] documented as of this encounter Visit Diagnoses Not on filedocumented in this encounter Care Teams Chicken And Fish Cleaner Relationship Specialty Start Date End Date Rod Sanches MD [address] [place] [id number] PCP - General 06/09/16 01/13/20 Sharri Argueta DO [address] [place], [place] [id number] PCP - General 01/14/20 04/06/20 Rod Sanches MD [address] [place] [id number] PCP - General 04/07/20 10/22/20 Sharri Argueta DO [address] [place], [place] [id number] PCP - General 10/23/20 Phylicia Beck, RN Registered Nurse 12/23/17 10/27/20 Qi Story, RN Registered Nurse 10/28/20 documented as of this encounter
--- OUTSIDE RECORDS SUMMARY | 2025-01-20 08:19 | XMS_ITS | Clinical Summary ---
Author Organization [facility] Address [address] [place] [address] Care Team Providers Care Ancillary Services Manager Therapy Name Role Phone Sharri Argueta DO Primary Care Provider [phone] Qi Story RN Unavailable Unavailable Source Comments [facility],non-owned Affiliates and Associated Physician Practices is amultiple site organization consisting of ambulatory clinics and hospital sitesin [place], [place], [place] and [place]. This disclosure is being madepursuant to the Care Everywhere program and may not contain all information available regarding this patient. Last updated 18.[facility] Allergies Active Allergy Reactions Criticality Noted Date [...] document. Alwaysverify current medications with the patient. aspirin (ASPIRIN) 81 MG chew tabletIndication s:S/P liver transplant (HCC),Hypertensi on, unspecified type Take 1 tablet by mouth once daily 100 tablet 4 8 Active metFORMIN ER 24hr (GLUCOPHAGE XR) 500 MG tablet TAKE 2 TABLETS BY MOUTH TWO TIMES DAILY 360 tablet 1 9 Active Loratadine 10 MG Take 10 mg by mouth at bedtime Active Multiple Vitamins-Mineral s (MULTIVITAMIN ADULT PO) Take 1 tablet by mouth 2 times daily Active Methylcobalamin 1 MG Take 1 tablet by mouth once daily Active losartan (Cozaar) 25 MG tablet Take 1 (one) tablet by mouth once daily 2 Active cyclobenzaprine (Flexeril) 10 MG tablet Take 1 (one) tablet by mouth as needed 2 Active doxazosin (Cardura) 8 MG tabletIndication s:S/P liver transplant (HCC),Hypertensi on, unspecified type TAKE 1 TABLET BY MOUTH AT BEDTIME 100 tablet 3 4 Active carvedilol (Coreg) 25 MG tabletIndication s:S/P liver transplant (HCC),Hypertensi on, unspecified type TAKE 1 TABLET BY MOUTH TWICE DAILY WITH MORNING AND EVENING MEALS 200 tablet 3 4 Active tacrolimus (Prograf) 1 MG capsuleIndicatio ns:Liver Transplant Status Take 1 (one) capsule by mouth 2 times daily Fill with Prograf generic equivalent Reasons: Liver Transplant Recipient 180 capsule 3 5 Active amLODIPine (Norvasc) 10 MG tabletIndication s:S/P liver transplant (HCC),Hypertensi on, unspecified type TAKE 1 TABLET BY MOUTH ONCE DAILY 100 tablet 2 5 Active Active Problems Problem Noted Date Diagnosed Date 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 Xerosis cutis 03/05/2023 Rash and other nonspecific skin eruption 021 Assessment & Plan (11/04/2020 12:02 PM SILK SOAKER): -L ankle/foot -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 -start TAC oint BID PRN w wet wraps, instructions provided Multiple benign melanocytic nevi of upper extremity, lower extremity, and trunk 11/04/2020 Assessment & Plan (11/04/2020 12:01 PM SILK SOAKER): - None atypical or more concerning than others on exam today - Counseled on importance of daily sun protection, and monthly self skin exams - Reviewed ABCDEs of melanoma - Advised sun protective behaviors and regular sun screen use - Annual FBSE Lentigines 11/04/2020 Assessment & Plan (11/04/2020 12:01 PM SILK SOAKER): -Benign, reassurance Other specified dermatitis 11/04/2020 Seborrheic keratosis 11/04/2020 Neutropenia 10/28/2020 History of hepatocellular carcinoma 11/20/2018 Long-term use of immunosuppressant medication Benign essential HTN 08/28/2018 IPMN (intraductal papillary mucinous neoplasm) 0 05/23/2018 Fatty pancreas 05/08/2018 Right inguinal hernia 05/08/2018 Overview (05/08/2018): Indirect Diabetes mellitus type 2, uncontrolled 8 Pre-transplant evaluation for liver transplant 0 12/23/2017 Overview (12/23/2017): LISTED Diagnosis: BRADSHAW/HCC Referring University Extension Specialist: Andrew Alert: Will need renoportal at [...] Impression: It is the impression of this licensed master social worker that Robert Harrell has several positive factors for Liver transplant candidacy including knowledge of illness, sufficient insurance coverage, stable financial situation for post transplant needs, and no concerns regarding substance abuse. SW concerns are patient's support system and discharge plan. Plan: stock house worker to provide supportive services as needed. Patient appears to be a reasonable candidate for transplant from a psychosocial perspective, pending: - Post transplant arrangement forms are needed prior to being listed, with confirmation. Psychiatric Consult Recommended: No Transplant Invoice Coder: MIKY OVERTON RD: 24 Hour Recall/food frequency: eggs, chocolate milk, salad, spaghetti, hamburger, [place] - loaiza seared, mash potatoes, broccoli, corn cauliflower, apples, ham and liberian, lettuce and tomato sandwich, Ramen noodles about [...] Transplant Date: 11/03/2017 Donor: Standard criteria donor [id number] CMV D-/R-, EBV D+/R+ Pre-Transplant Summary: ESLD [...] PCP Adjustments: Readmissions: Biopsies: Explant Liver, explant, [place] hepatectomy (A): - Cirrhosis (history of BRADSHAW) - Completely necrotic nodule in right lobe (4.0 cm) - Macroregenerative nodules, multifocal - Focal dysplasia (small and large cell changes) - Hepatocellular iron focally up to 4+ - No viable hepatocellular carcinoma identified Gallbladder, [place] hepatectomy (A): - Mild chronic cholecystitis Gallbladder, [...] cirrhosis. The PAS-D stain is negative for [id number] globules. The iron stain shows granular hepatocellular [...] from the prior study (LR 3). 2. Jyaefp-fzota-vappia venous anastomosis, with unchanged aneurysmal dilatation at [...] liver without washout (LR 3). 2. Patent hscyud-rltai-ajpukv venous anastomosis, with unchanged aneurysmal dilatation of [...] recommended. Assessment & Plan (11/04/2020 12:01 PM SILK SOAKER): -discussed inc risk NMSC/MM - Reviewed ABCDEs [...] 12/23/2017 Hypo-osmolality and hyponatremia 09/12/2015 12/23/2017 Immunizations Immunization Administration Dates Next Due [employer] primary monoval ent 12+ yr 0.3mL Purple [...] on file Legal Sex Male 5:15 PM SILK SOAKER Gender Identity Not on file Sexual Orientation Straight 07/31/2024 7: 47 PM SILK SOAKER Last Filed Vital Signs Vital Sign Reading Time Taken Comments Blood Pressure 137/83 07/21/2024 1:48 PM SILK SOAKER Pulse 74 07/21/2024 1:48 PM SILK SOAKER Temperature 36.4 C (97.5 F) 05/31/2023 1:01 PM CDT Respiratory Rate 18 07/21/2024 1:48 PM SILK SOAKER Oxygen Saturation 99% 07/21/2024 1:48 PM SILK SOAKER Inhaled Oxygen Concentration - - Weight 93.7 kg (206 lb 9.6 oz) 07/21/2024 1:48 P M SILK SOAKER Height 182.9 cm (6') 07/21/2024 1:48 PM SILK SOAKER Body Mass Index 28.02 07/21/2024 1:48 PM SILK SOAKER Plan of Treatment Upcoming Encounters Date Type Department Care Team (Late st Contact Info) Description 02/02/2025 12:00 PM CDT Office Visit [facility] - GI [address] [place] [address], [place] [id number] Ramon Morales MD [address] [place] [address] [place] [address] Health Maintenance Due Date Last Done Comments [...] - Pfizer risk series) 12/27/2020 11/29/2020, 11/04/2020 DEPRESSION SCREENING 09/09/2024 DIABETES - URINE PROTEIN SCREENING 09/09/2024 MEDICARE AWV CALENDAR YEAR 2024 INFLUENZA VACCINE (Season Ended) 2025 05/31/2023, 06/23/2019 DIABETES-SERUM CREATININE 07/15/20252023, 02/12/2024, 11/12/2023, Additional history [...] COMPREHENSIVE METABOLIC PANEL Routine 07/15/2024 8:06 AM SILK SOAKER Long-term use of immunosuppressant medication S/P liver transplant ENDOSCOPY, COLON, SCREENING Routine 04/04/2020 9:37 AM CDT HEMOGLOBIN A1C 03/14/2020 8:46 AM CDT HEPATITIS C ANTIBODY Routine 09/11/2015 10:46 AM SILK SOAKER from Last 3 Months or Most Recently Relevant to Health Maintenance Results * (ABNORMAL) COMPREHENSIVE METABOLIC PANEL (07/15/2024 8:06 AM SILK SOAKER) Glucose 149(H) 65 - 99 mg/dL [facility] [...] 46 U/L [facility] Comment: Test Performed at: [facility] [id number] [place] [address] SMITHA KELLEY [id number] KAMAR ALEXANDRE MD Blood BLOOD SPECIMEN / Unknown 07/15/2024 8:06 AM SILK SOAKER 07/15/2024 8:07 AM SILK SOAKER us Ramon Morales MD LAB - CHEMISTRY ORDERABLES Fin al Result [facility] [id number] [place] [address] * ENDOSCOPY, COLON, SCREENING (04/04/2020 9:37 AM CDT) Report Endoscopy POC Endoscopy Department Report _ Patient Name: Robert Harrell Procedure Date: 04/04/2020 9:37 AM Date of : 1955 Classification: Outpatient Gender: Male Ethnicity: Not or Race: White _ Providers: Ramon Morales MD, Elda Guevara (Fellow) Referring MD: Ramon Morales MD (Referring [...] and oxygen saturations were monitored continuously. The [id number] was introduced through the anus and advanced to the cecum, identified by appendiceal orifice and ileocecal valve. The colonoscopy was performed without difficulty. The patient tolerated the procedure well. The quality of the bowel preparation was evaluated using the BBPS (Joaquin Bowel Preparation Scale) with scores of: Right [...] a jumbo cold forceps. Resected and retrieved. [id number]|2025-01-20 13:51:29|2025-01-20 13:51:29|REHSTMBS||||"Assessment and note entered by Ellen De La Fuente PRODUCT PROMOTER SALES PERSON Modified Barium Swallow Evaluation ICD-10 Condition Codes (ST) Dysphagia, pharyngeal phase R13.13,Dysphagia, pharyngoesophageal phase R13.14 Subjective Information very pleasant and cooperative Feeding Type Recommended Non-Oral Treatment Recommendations Effortful Swallow,Laryngeal Elevation Exercise, Bart Maneuver,Shaker Exercise,Supraglottic Swallow,Tongue Base Exercise ST Clinical Summary The above pt was seen for a repeat OP MBS due to severe dysphagia since cervical fusion on November 20 . 5 Previous MBS' (completed during his the inpatient admission) revealed severe dysphagia with subsequent non oral recommendation then PEG tube placement. Pt stated he has been doing some dysphagia exercises at home but has not been to OP Speech Therapy. He states his daughter who is an PRODUCT PROMOTER SALES PERSON gave him exercises as well as doing the ones given during his admission. He reports that he continues to get choked at home with attempts to eat/drink water and foods. Prior to exam pt was taught the supraglottic swallow as well as the Bart maneuver to improve airway protection and to prolong opening of the UES. Pt was positioned for a lateral view and presented with controlled trials of thin liquids via a spoon, pudding consistency barium via a spoon, crumbled cracker coated with barium pudding via a spoon, and cups sips of thin liquid. The oral stages are WFL; during the pharyngeal stage the following was exhibited: reduced tongue base retraction as evidenced by vallecular residue which ranged from mild to severe; reduced laryngeal elevation as evidenced by laryngeal penetration during the swallow and pyriform sinus residue; severe residual was also exhibited at the upper esophagus indicative of cricopharyngeal dysfunction; bony protrusions were also exhibited and C5-7. Extra dry swallows and liquid wash cleared residual but intermittent instances of trace aspiration occurred during and after the swallow with essentially all consistencies. Impression: severe dysphagia but improved since previous tests Recommendations: start OP speech therapy to implement dysphagia with therapeutic feedings; continue PEG tube feedings; repeat MBS as per OP PRODUCT PROMOTER SALES PERSON. Consider GI consult if upper esophageal dilation is possible. "
--- OUTSIDE RECORDS SUMMARY | 2025-01-20 08:19 | XMS_ITS ---
Author Organization [facility] Address [address] [place] [address] Care Team Providers Care Mine Superintendent Name Role Phone Sharri Argueta DO Primary Care Provider [phone] Qi Story RN Unavailable Unavailable Transplant Episode Liver Recipient [facility] ([place], [place]) - [facility] Organ Received: Liver Transplanted on 11/03/2017 Marked as Active Follow-up on 11/03/2017 Liver CoordinatorQi Story RN Phone: N/A Fax: N/A Email: N/A [place] Organ Diagnosis Organ Primary Contributory Liver Cirrhosis: [...] N/A N/A Ramon Morales MD Referring Physician [phone] N/A Janae Diaz MD Transplant Surgeon [phone] N/A Events Post-Transplant Pre-Transplant Admitted: 11/03/2017 Referred: 05/25/2016 Transplanted: 11/03/2017 Evaluation began: 6 Discharged: 11/14/2017 Center waitlisted: 6
--- OUTSIDE RECORDS SUMMARY | 2025-01-20 08:19 | XMS_ITS ---
Author Organization [facility] Address [address] 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 -start TAC oint BID PRN w wet wraps, instructions provided Multiple benign melanocytic nevi of upper extremity, lower extremity, and trunk 11/04/2020 Assessment & Plan (11/04/2020 12:01 PM QA REVIEWER): - None atypical or more concerning than others on exam today - Counseled on importance of daily sun protection, and monthly self skin exams - Reviewed ABCDEs of melanoma - Advised sun protective behaviors and regular sun screen use - Annual FBSE Lentigines 11/04/2020 Assessment & Plan (11/04/2020 12:01 PM QA REVIEWER): -Benign, reassurance Other specified dermatitis 11/04/2020 Seborrheic keratosis 11/04/2020 Neutropenia 10/28/2020 History of hepatocellular carcinoma 11/20/2018 Long-term use of immunosuppressant medication Benign essential HTN 08/28/2018 IPMN (intraductal papillary mucinous neoplasm) 0 05/23/2018 Fatty pancreas 05/08/2018 Right inguinal hernia 05/08/2018 Overview (05/08/2018): Indirect Diabetes mellitus type 2, uncontrolled 8 Pre-transplant evaluation for liver transplant 0 12/23/2017 Overview (12/23/2017): LISTED Diagnosis: BRADSHAW/HCC Referring Automotive Technology Instructor: Andrew Alert: Will need renoportal at the [...] is the impression of this social work supervisor that Robert Harrell has several positive factors for Liver transplant candidacy including knowledge of illness, sufficient insurance coverage, stable financial situation for post transplant needs, and no concerns regarding substance abuse. SW concerns are patient's support system and discharge plan. Plan: anvil worker to provide supportive services as needed. Patient appears to be a reasonable candidate for transplant from a psychosocial perspective, pending: - Post transplant arrangement forms are needed prior to being listed, with confirmation. Psychiatric Consult Recommended: No Transplant Story Reader: MIKY OVERTON RD: 24 Hour Recall/food frequency: eggs, chocolate milk, salad, spaghetti, hamburger, [place] - loaiza seared, mash potatoes, broccoli, corn cauliflower, apples, ham and norwegian, lettuce and tomato sandwich, Ramen noodles about [...] Transplant Date: 11/03/2017 Donor: Standard criteria donor [id number] CMV D-/R-, EBV D+/R+ Pre-Transplant Summary: ESLD [...] PCP Adjustments: Readmissions: Biopsies: Explant Liver, explant, [place] hepatectomy (A): - Cirrhosis (history of BRADSHAW) - Completely necrotic nodule in right lobe (4.0 cm) - Macroregenerative nodules, multifocal - Focal dysplasia (small and large cell changes) - Hepatocellular iron focally up to 4+ - No viable hepatocellular carcinoma identified Gallbladder, [place] hepatectomy (A): - Mild chronic cholecystitis Gallbladder, [...] cirrhosis. The PAS-D stain is negative for rqjsq-1-dpgwvsampnv globules. The iron stain shows granular hepatocellular [...] from the prior study (LR 3). 2. Levhke-uvlgx-reclqb venous anastomosis, with unchanged aneurysmal dilatation at [...] liver without washout (LR 3). 2. Patent ghevvd-nzsze-vmptcv venous anastomosis, with unchanged aneurysmal dilatation of [...] recommended. Assessment & Plan (11/04/2020 12:01 PM QA REVIEWER): -discussed inc risk NMSC/MM - Reviewed ABCDEs [...] lumbar vertebra 0 04/04/2016 Thrombocytopenia 09/12/2015 Current Treatment and Therapy Plans No current plan information found. Past Treatment and Therapy Plans No past plan information found. Lifetime Dose Tracking * Chemical Lifetime Dose [...]
--- OUTSIDE RECORDS SUMMARY | 2025-01-20 08:19 | XMS_ITS | Referral Summary ---
Author Organization [facility] Address [address] [place] [address] Care Team Providers Care Retina Subspecialist Name Role Phone Sharri Argueta DO Primary Care Provider [phone]- [phone] Encounters Date Type Department Care Team Description 12/09/2024 4:06 PM CDT - 12/12/2024 3:22 PM CDT Hospital Encounter [facility] 5 Med Surg [address] [place] [address] Kristin Lloyd MD Singh, Anjanya Devendra, MD Pneumonia of left upper lobe due to infectious organism (Primary Dx); Shortness of breath Discharge Disposition: Discharge to home, home health skilled care from Last 3 Months Allergies Active Allergy Reactions Criticality Noted Date Comments Ibuprofen Other (See comments) 12/09/2024 States it interferes with immunotherapy Cephalexin Nausea & Vomiting Low 12/09/2024 Penicillins Unknown 12/09/2024 Reaction as a child Medications carvediloL (COREG) 25 mg tablet Administer per tube 1 tablet (25 mg total) 2 (two) times a day with meals 4 Active amLODIPine (NORVASC) 10 mg tablet Administer per tube 1 tablet (10 mg total) daily 5 Active aspirin 81 mg chewable tablet Administer per tube 1 tablet (81 mg total) daily 8 Active cyclobenzaprine (FLEXERIL) 5 mg tablet Administer per tube 1 tablet (5 mg total) 3 (three) times a day as needed for muscle spasms 2 Active doxazosin (CARDURA) 8 mg tablet Administer per tube 1 tablet (8 mg total) nightly 4 Active loratadine 10 mg capsule Administer 10 mg per tube nightly Active losartan (COZAAR) 25 mg tablet Administer per tube 1 tablet (25 mg total) daily 2 Active metFORMIN XR (GLUCOPHAGE XR) 500 mg 24 hr tablet Take 2 tablets (1,000 mg total) by mouth 2 (two) times a day 9 Active tacrolimus 1 mg immediate-relea se capsule Take 1 capsule (1 mg total) by mouth 2 (two) times a day 5 Active ipratropium-alb uteroL (DUO-NEB) 0.5-2.5 mg/3 mL nebulizer solution Take 3 mL by nebulization every 6 (six) hours as needed for wheezing 90 mL 5 Active Active Problems Problem Noted Date Diagnosed Date Pneumonia of left upper lobe due to infectious o rganism 12/09/2024 Social History Tobacco Use Types Packs/Day Years Used Date Smoking Tobacco: Never [employer] Answer Date Recorded In the past 12 months has [employer], oil, or water [employer] threatened to shut off services in your home? No 12/10/2024 Social Connection and Isolat ion Panel [NHANES] Answer Date Recorded In a typical week, how many times do you talk on the phone with family, friends, or neighbors? More than three times a week 12/10/2024 How often do you get togethe r with friends or relatives? More than three times a week 12/10/2024 How often do you attend chur or hindu services? Never 12/10/2024 Do you belong to any clubs o r organizations such as restorationist groups, unions, fraternal or athletic groups, or school groups? No 12/10/2024 How often do you attend meet ings of the clubs or organizations you belong to? Never 12/10/2024 Are you , , di vorced, , never , or living with a partner? 12/10/2024 Overall Financial Resource Strain (CARDIA) Answe r Date Recorded How hard is it for you to pa y for the very basics like food, housing, medical care, and heating? Not very hard 12/10/2024 Hunger Vital Sign Answer Date Recorded Within the past 12 months, y ou worried that your food would run out before you got the money to buy more. Never true 12/11/19 25 Within the past 12 months, t he food you bought just didn't last and you didn't have money to get more. Never true 12/10/2024 PRAPARE - Transportation Answer Date Re corded In the past 12 months, has l ack of transportation kept you from medical appointments or from getting medications? No 11/2024 In the past 12 months, has l ack of transportation kept you from meetings, work, or from getting things needed for daily living? No 12/10/2024 Housing Stability Vital Sign Answer Royal e Recorded In the last 12 months, was t here a time when you were not able to pay the mortgage or rent on time? No 12/10/2024 In the past 12 months, how m any times have you moved where you were living? 0 12/10/2024 At any time in the past 12 m [facility], were you homeless or living in a chcf (including now)? No 12/10/2024 Personal Safety Answer Date Recorded Have you ever been in or are you currently in a harmful physical or emotional relationship or is someone making you feel afraid or unsafe? 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 Gender Identity Not on file Sexual Orientation Not on file Last Filed Vital Signs Vital Sign Reading Time Taken Comments Blood Pressure 140/78 12/12/2024 7:43 AM CDT Pulse 80 12/12/2024 7:43 AM CDT Temperature 36.8 C (98.2 F) 12/12/2024 7:43 AM CDT Respiratory Rate 18 12/12/2024 7:43 AM CDT Oxygen Saturation 99% 12/12/2024 7:49 AM CDT Inhaled Oxygen Concentration - - Weight 84.1 kg (185 lb 8 oz) 12/09/2024 11:15 PM CDT Height 182.9 cm (6' 0.01 ) 12/10/2024 10:28 AM C DT Body Mass Index 25.15 12/09/2024 11:15 PM CDT Plan of Treatment Not on file Procedures Procedure Name Priority Date/Time Associated Diagnosis Comments POCT GLUCOSE DEVICE Routine 12/12/2024 1 2:19 PM CDT EGFR Routine 12/12/2024 8:17 AM CDT DIFFERENTIAL AUTO Routine 12/12/2024 8:1 7 AM CDT COMPREHENSIVE METABOLIC PANEL Routine 12/12/2024 8:17 AM CDT CBC WITH AUTO DIFFERENTIAL Routine 12/12/2024 8:17 AM CDT POCT GLUCOSE DEVICE Routine 12/12/2024 7 :44 AM CDT POCT GLUCOSE DEVICE Routine 12/12/2024 4 :09 AM CDT POCT GLUCOSE DEVICE Routine 12/12/2024 1 2:14 AM CDT POCT GLUCOSE DEVICE Routine 12/11/2024 8 :23 PM CDT POCT GLUCOSE DEVICE Routine 12/11/2024 4 :03 PM CDT POCT GLUCOSE DEVICE Routine 12/11/2024 1 2:52 PM CDT INCENTIVE SPIROMETRY RT Routine 12/11/2024 12:00 PM CDT PNEUMONIA PCR WITH AEROBIC CULTURE AND GRAM STAIN STAT 12/11/2024 9:46 AM CDT POCT GLUCOSE DEVICE Routine 12/11/2024 9 :07 AM CDT INCENTIVE SPIROMETRY RT Routine 12/11/2024 8:01 AM CDT EGFR Routine 12/11/2024 7:05 AM CDT DIFFERENTIAL AUTO Routine 12/11/2024 7:0 5 AM CDT COMPREHENSIVE METABOLIC PANEL Routine 12/11/2024 7:05 AM CDT CBC WITH AUTO DIFFERENTIAL Routine 12/11/2024 7:05 AM CDT POCT GLUCOSE DEVICE Routine 12/11/2024 4 :24 AM CDT INCENTIVE SPIROMETRY RT Routine 12/11/2024 4:00 AM CDT POCT GLUCOSE DEVICE Routine 12/11/2024 1 2:[address] ABDOMEN PELVIS WO CONTRAST IP Routine 12/10/2024 11:45 PM CDT POCT GLUCOSE DEVICE Routine 12/10/2024 8 :45 PM CDT POCT GLUCOSE DEVICE Routine 12/10/2024 6 :03 PM CDT POCT GLUCOSE DEVICE Routine 12/10/2024 1 1:54 AM CDT POCT GLUCOSE DEVICE Routine 12/10/2024 7 :40 AM CDT POCT GLUCOSE DEVICE Routine 12/10/2024 4 :28 AM CDT INCENTIVE SPIROMETRY RT Routine 12/10/2024 4:00 AM CDT LEGIONELLA ANTIGEN, URINE Routine 12/10/2024 2:20 AM CDT STREP PNEUMONIAE AG, URINE Routine 12/10/2024 2:20 AM CDT EGFR Routine 12/10/2024 2:13 AM CDT CBC WITHOUT DIFFERENTIAL Routine 12/10/2024 2:13 AM CDT BASIC METABOLIC PANEL Routine 12/10/2024 2:13 AM CDT TROPONIN T HIGH-SENSITIVITY 4-HR Timed 12/10/2024 2:13 AM CDT INCENTIVE SPIROMETRY RT Routine 12/10/2024 12:01 AM CDT INCENTIVE SPIROMETRY RT Routine 12/09/2024 11:27 PM CDT INCENTIVE SPIROMETRY RT Routine 12/09/2024 11:27 PM CDT INCENTIVE SPIROMETRY RT Routine 12/09/2024 11:27 PM CDT INCENTIVE SPIROMETRY RT Routine 12/09/2024 11:27 PM CDT INCENTIVE SPIROMETRY RT Routine 12/09/2024 11:27 PM CDT INCENTIVE SPIROMETRY RT Routine 12/09/2024 11:27 PM CDT POCT GLUCOSE DEVICE Routine 12/09/2024 1 1:20 PM CDT TROPONIN T HIGH-SENSITIVITY 6-HOUR Timed 12/09/2024 10:02 PM CDT MSSA/MRSA (STAPHYLOCOCCUS AUREUS) CULTURE STAT 12/09/2024 8:27 PM CDT TROPONIN T HIGH-SENSITIVITY 2-HOUR Timed 12/09/2024 6:[address] CHEST PE W CONTRAST ED 12/09/2024 6:16 PM CDT XR CHEST PA LATERAL 2 VIEWS ED 12/09/2024 5:24 PM CDT INFLUENZA A/B, RSV, AND COVID-19 PCR STAT 12/09/2024 5:07 PM CDT ECG 12-LEAD STAT 12/09/2024 5:01 PM CDT PRO B-TYPE NATRIURETIC PEPTIDE STAT 12/09/2024 4:22 PM CDT EGFR STAT 12/09/2024 4:22 PM CDT DIFFERENTIAL AUTO STAT 12/09/2024 4:2 2 PM CDT TROPONIN T HIGH-SENSITIVITY SERIES (BASELINE, 2HR, 4HR, 6HR) STAT 12/09/2024 4:22 PM CDT CBC WITH AUTO DIFFERENTIAL STAT 12/09/2024 4:22 PM CDT COMPREHENSIVE METABOLIC PANEL STAT 12/09/2024 4:22 PM CDT from Last 3 Months Results * POCT glucose (12/12/2024 12:19 PM CDT) Pathologist [facility] Glucose, POC 193 70 - 199 mg/dL Comment:Testing performed by : [facility], [address] [place] [address]., [address] Glucose comment 1 RN/MD Notified MISTI Comment:Testing performed by : [address] [address] Blood 12/12/2024 12:1 9 PM CDT 12/12/2024 12:19 PM CDT us Vitaliy Ugalde MD LAB POCT ORDERABLES - DEVICE Final Result MISTI [address] [facility] Department of Laboratories [place], [place] [id number] * eGFR (12/12/2024 8:17 AM CDT) Pathologist [facility] eGFR 81 >=60 mL/min/1. 73 m2 Comment: Interpretive Data Reference Interval Normal >/= 90 mL/min/1.73m2 Mildly decreased* 60 - 89 mL/min/1.73m2 Mildly to moderately decreased 45 - 59 mL/min/1.73m2 Moderately to severely decreased 30 - 44 mL/min/1.73m2 Severely decreased 15 - 29 mL/min/1.73m2 Kidney Failure < 15 mL/min/1.73m2 *Relative to young adult level Estimated glomerular filtration rate is determined by the 2020 CKD-EPI equation recommended by the National Kidney Foundation (A Unifying Approach to GFR Estimation: Recommendations of the NKF-ASK Task Force on Reassessing the Inclusion of Race in Diagnosing Kidney Disease, JASN 202). The CKD-EPI equation should not be used for patients with unstable renal function and has not been validated in children and those over 70. Current interpretive data was last reviewed 2021. Testing performed by: [address] [address] Blood 12/12/2024 8:17 AM CDT 12/12/2024 8:46 AM CDT us Vitaliy Ugalde MD LAB BLOOD ORDERABLES F inal Result MISTI [address] [facility] [place] [address] * (ABNORMAL) Differential, auto (12/12/2024 8:17 AM CDT) Neutrophil abs 2.98 1.50 - 6.50 K/cumm Comment:Testing performed by : [address] [address] Imm gran abs 0.03 0.00 - 0.10 K/cumm MISTI Comment:Testing performed by : [address] [address] Lymphocyte abs 0.57(L) 0.80 - 3.30 K/cumm MISTI Comment:Testing performed by : [address] [address] Monocyte abs 0.28 0.20 - 0.80 K/cumm MISTI Comment:Testing performed by : [address] [address] Eosinophil abs 0.10 0.00 - 0.50 K/cumm MISTI Comment:Testing performed by : [address] [address] Basophil abs 0.01 0.00 - 0.10 K/cumm MISTI Comment:Testing performed by : [address] [address] Neutrophil pct 74.9 % MISTI Comment: Interpretive Data Percent cell count reference ranges are not reported, since discordance with absolute values may lead to misinterpretation of CBC data. Current Interpretive Data was last revised on 2017. Testing performed by: [address] [address] Imm gran pct 0.8 % MISTI Comment: Interpretive Data Percent cell count reference ranges are not reported, since discordance with absolute values may lead to misinterpretation of CBC data. Current Interpretive Data was last revised on 2017. Testing performed by: [address] [address] Lymphocyte pct 14.4 % [facility] Comment: Interpretive Data Percent cell count reference ranges are not reported, since discordance with absolute values may lead to misinterpretation of CBC data. Current Interpretive Data was last revised on 2017. Testing performed by: [address] [address] Monocyte pct 7.1 % [facility] Comment: Interpretive Data Percent cell count reference ranges are not reported, since discordance with absolute values may lead to misinterpretation of CBC data. Current Interpretive Data was last revised on 2017. Testing performed by: [address] [address] Eosinophil pct 2.5 % [facility] Comment: Interpretive Data Percent cell count reference ranges are not reported, since discordance with absolute values may lead to misinterpretation of CBC data. Current Interpretive Data was last revised on 2017. Testing performed by: [address] [address] Basophil pct 0.3 % [facility] Comment: Interpretive Data Percent cell count reference ranges are not reported, since discordance with absolute values may lead to misinterpretation of CBC data. Current Interpretive Data was last revised on 2017. Testing performed by: [address] [address] Blood 12/12/2024 8:17 AM CDT 12/12/2024 8:46 AM CDT us Vitaliy Ugalde MD LAB BLOOD ORDERABLES F inal Result MISTI [address] [facility] [place] [address] * (ABNORMAL) CBC with auto differential (12/12/2024 8:17 AM CDT) WBC 3.97 3.80 - 9.90 K/cumm Comment:Testing performed by : [address] [address] Hgb 14.1 13.0 - 17.5 g/dL MISTI Comment:Testing performed by : [address] [address] Hct 41.2 38.9 - 50.3 % MISTI Comment:Testing performed by : [address] [address] Plt 72(L) 150 - 400 K/cumm MISTI Comment:Testing performed by : [address] [address] MPV 11.8 9.1 - 12.3 fL MISTI Comment:Testing performed by : [address], [address] RBC 4.72 4.30 - 5.80 M/cumm MISTI Comment:Testing performed by : [address], [address] MCV 87.3 81.3 - 96.4 fL MISTI Comment:Testing performed by : [address] [address] MCH 29.9 27.1 - 33.3 pg MISTI Comment:Testing performed by : [address] [address] MCHC 34.2 32.3 - 35.7 g/dL MISTI Comment:Testing performed by : [address], [address] RDW CV 12.3 11.1 - 14.9 % MISTI Comment:Testing performed by : [address] [address] RDW SD 39.0 35.7 - 48.1 fL MISTI Comment:Testing performed by : [address], [address] NRBC abs 0.00 0.00 - 0.01 K/cumm MISTI Comment:Testing performed by : [address], [address] Blood 12/12/2024 8:17 AM CDT 12/12/2024 8:46 AM CDT us Vitaliy Ugalde MD LAB BLOOD ORDERABLES F inal Result MISTI [address] [facility] [place] [address] * (ABNORMAL) Comprehensive metabolic panel (12/12/2024 8:17 AM CDT) Sodium 135 135 - 145 mmol/L Comment:Testing performed by : [address] [address] Potassium, pl 4.3 3.3 - 4.9 mmol/L MISTI Comment:Testing performed by : [address] [address] Chloride 100 97 - 110 mmol/L MISTI Comment:Testing performed by : [address] [address] CO2 29 22 - 32 mmol/L MISTI Comment:Testing performed by : [address] [address] Anion gap 6 2 - 15 mmol/L MISTI Comment:Testing performed by : [address] [address] BUN 18 6 - 25 mg/dL MISTI Comment:Testing performed by : [address] [address] Creatinine 1.00 0.80 - 1.30 mg/dL MISTI Comment:Testing performed by : [address] [address] Glucose 158 70 - 199 mg/dL MISTI Comment: Interpretive Data Fasting glucose >/= 126 mg/dl is diagnostic for diabetes. Fasting is defined as no caloric intake for at least 8 hours. Fasting glucose between 100 mg/dl to 125 mg/dl is diagnostic of prediabetes. In a patient with classic symptoms of hyperglycemia or hyperglycemic crisis, a random glucose >/= 200 mg/dl is diagnostic for diabetes. In the absence of unequivocal hyperglycemia, results should be confirmed by repeat testing. The classification and Diagnosis of Diabetes Diabetes Care 202; 46: S19-S40. Current interpretive data was last revised 2022. Testing performed by: [facility], [address] [place] [address]., [address] Calcium 8.8 8.5 - 10.3 mg/dL MISTI Comment:Testing performed by : [address] [address] Bilirubin, total 0.6 0.1 - 1.2 mg/dL MISTI Comment:Testing performed by : [address] [address] Protein, pl 5.5(L) 6.5 - 8.5 g/dL MISTI Comment:Testing performed by : [address] [address] Albumin 3.0(L) 3.5 - 5.0 g/dL MISTI Comment:Testing performed by : [address] [address] Alk phos 82 40 - 130 Units/L MISTI Comment:Testing performed by : [address] [address] ALT 43 7 - 55 Units/L MISTI Comment:Testing performed by : [address] [address] AST 25 10 - 50 Units/L MISTI Comment:Testing performed by : [address] [address] Blood 12/12/2024 8:17 AM CDT 12/12/2024 8:46 AM CDT us Vitaliy Ugalde MD LAB BLOOD ORDERABLES F inal Result MISTI [address] [facility] Department [place] [address] * POCT glucose (12/12/2024 7:44 AM CDT) [facility] Glucose, POC 158 70 - 199 mg/dL Comment:Testing performed by : [address] [address] Glucose comment 1 RN/MD Notified MISTI Comment:Testing performed by : [facility], [address] [place] [address]., [address] Blood 12/12/2024 7:44 AM CDT 12/12/2024 7:44 AM CDT Vitaliy Ugalde MD LAB POCT ORDERABLES - DEVICE Final Result Performing Organization Address [facility] Co de Phone Number ANAMARIAGOMEZ [address] [place] [address] * POCT glucose (12/12/2024 4:09 AM CDT) Glucose, POC 162 70 - 199 mg/dL Comment:Testing performed by : [address] [address] Blood 12/12/2024 4:09 AM CDT 12/12/2024 4:09 AM CDT Vitaliy Ugalde MD LAB POCT ORDERABLES - DEVICE Final Result Performing Organization Address [facility] de Phone Number MISTI [address] [address] * POCT glucose (12/12/2024 12:14 AM CDT) Glucose, POC 173 70 - 199 mg/dL Comment:Testing performed by : [address] [address] Glucose comment 1 RN/MD Notified MISTI Comment:Testing performed by : [address] [address] Blood 12/12/2024 12:1 4 AM CDT 12/12/2024 12:14 AM CDT Vitaliy Ugalde MD LAB POCT ORDERABLES - DEVICE Final Result Performing Organization Address City/[facility] Co de Phone Number MISTI [address] [employer] [place] [address] * POCT glucose (12/11/2024 8:23 PM CDT) Glucose, POC 153 70 - 199 mg/dL Comment:Testing performed by : [address] [address] Blood 12/11/2024 8:23 PM CDT 12/11/2024 8:23 PM CDT us Vitaliy Ugalde MD LAB POCT ORDERABLES - DEVICE Final Result Performing Organization Address City/[facility]/ZIP Co de Phone Number ANAMARIA[address] [employer] [place] [address] * POCT glucose (12/11/2024 4:03 PM CDT) Glucose, POC 186 70 - 199 mg/dL Comment:Testing performed by : [address] [address] Blood 12/11/2024 4:03 PM CDT 12/11/2024 4:03 PM CDT us Vitaliy Ugalde MD LAB POCT ORDERABLES - DEVICE Final Result Performing Organization Address [facility]/ZIP Co de Phone Number [address] [employer] [place] [address] * POCT glucose (12/11/2024 12:52 PM CDT) Glucose, POC 184 70 - 199 mg/dL Comment:Testing performed by : [address] [address] Blood 12/11/2024 12:5 2 PM CDT 12/11/2024 12:52 PM CDT us Vitaliy Ugalde MD LAB POCT ORDERABLES - DEVICE Final Result Performing Organization Address City/[facility]/ZIP Co de Phone Number ANAMARIA[address] [employer] [place] [address] * (ABNORMAL) Pneumonia PCR with aerobic culture and Gram stain Sputum (12/11/2024 9:46 AM CDT) Direct Specimen Exam Stain: Abundant squamous epithelial cells seen indicating excessive oropharyngeal contamination. Culture will not be processed further. Please submit another specimen. Smear results called to and read back by: Joao Lambert ND ,[phone] on 12/11/2024 16:04:41 by: Aury Mendoza MT Results phoned to and read back by: [email or web address] on 12/11/2024 16:20:17 by: [email or web address] Comment:Testing performed by : [facility], [address] [place]., [address] Direct Specimen Exam Molecular Analysis: Abundant squamous epithelial cells observed on Gram stain. Specimen will not be processed for rapid molecular analysis. MISTI STATON Comment:Testing performed by : [facility], [address] [place]., [address] Report Final Report: This is the final report. (.) MISTI Comment:Testing performed by : [facility], [address] [place] [address]., [address] Sputum 12/11/2024 9:46 AM CDT 12/11/2024 2:47 PM CDT [facility] MISTI - 12/12/2024 8:32 AM CDT When rapid molecular testing results are reported, testing completed using the [employer] Pneumonia Panel. This molecular assay detects: Acinetobacter calcoaceticus-baumannii complex, Enterobacter cloacae complex, Escherichia coli, Haemophilus influenzae, Enterobacter (Klebsiella) aerogenes, Klebsiella oxytoca, Klebsiella pneumoniae group, Moraxella catarrhalis, Proteus spp., Pseudomonas aeruginosa, Serratia marcescens, Staphylococcus aureus, Streptococcus agalactiae, Streptococcus pneumoniae, and Streptococcus pyogenes. These bacteria are detected and reported semi-quantitatively with bins representing approximately 10^4, 10^5, 10^6, or greater than or equal to 10^7 genomic copies of bacterial nucleic acid per mL (copies/mL) of specimen. These quantities are reported to aid in estimating the relative abundance of organism(s) detected within the specimen and to correlate these results with culture results. For Staphylococcus aureus, mecA/C and MREJ genes are evaluated to predict methicillin resistance or susceptibility. For Gram-negative bacteria, the beta-lactamases CTX-M, IMP, KPC, NDM, VIM and OXA-48-like are evaluated and reported if detected. For Gram-negative organisms, the absence of detection of resistance markers does not exclude resistance. Correlation with final culture results and susceptibility testing i [id number]|2025-01-20 08:19:00|2025-01-20 08:19:00|XMS_ITS|BASIL RODRIGUEZ|External Medical Summaries|[id number]|" Clinical Summary Created on: January 20, 2025 Robert Harrell : 1955 Sex: Male Author Organization [facility] Address [facility] [place] [address] Care Team Providers Care Retina Subspecialist Name Role Phone Sharri Argueta DO Primary Care Provider [phone] Allergies Active Allergy Reactions Criticality Noted Date Comments Ibuprofen Other (See comments) 12/09/2024 States it interferes with immunotherapy Cephalexin Nausea & Vomiting Low 12/09/2024 Penicillins Unknown 12/09/2024 Reaction as a child Medications carvediloL (COREG) 25 mg tablet Administer per tube 1 tablet (25 mg total) 2 (two) times a day with meals 4 Active amLODIPine (NORVASC) 10 mg tablet Administer per tube 1 tablet (10 mg total) daily 5 Active aspirin 81 mg chewable tablet Administer per tube 1 tablet (81 mg total) daily 8 Active cyclobenzaprine (FLEXERIL) 5 mg tablet Administer per tube 1 tablet (5 mg total) 3 (three) times a day as needed for muscle spasms 2 Active doxazosin (CARDURA) 8 mg tablet Administer per tube 1 tablet (8 mg total) nightly 4 Active loratadine 10 mg capsule Administer 10 mg per tube nightly Active losartan (COZAAR) 25 mg tablet Administer per tube 1 tablet (25 mg total) daily 2 Active metFORMIN XR (GLUCOPHAGE XR) 500 mg 24 hr tablet Take 2 tablets (1,000 mg total) by mouth 2 (two) times a day 9 Active tacrolimus 1 mg immediate-relea se capsule Take 1 capsule (1 mg total) by mouth 2 (two) times a day 5 Active ipratropium-alb uteroL (DUO-NEB) 0.5-2.5 mg/3 mL nebulizer solution Take 3 mL by nebulization every 6 (six) hours as needed for wheezing 90 mL 5 Active Active Problems Problem Noted Date Diagnosed Date Pneumonia of left upper lobe due to infectious o rganism 12/09/2024 Encounters Date Type Department Care Team Description 12/09/2024 4:06 PM CDT - 12/12/2024 3:22 PM CDT Hospital Encounter [place] [id number] [address] [place] [id number] Kristin Lloyd MD Singh, Anjanya Devendra, MD Pneumonia of left upper lobe due to infectious organism (Primary Dx); Shortness of breath Discharge Disposition: Discharge to home, home health skilled care from Last 3 Months Social History Tobacco Use Types Packs/Day Years Used Date Smoking Tobacco: Never COMMUNITY [facility] Utilities Answer Date Recorded In the past 12 months has [employer], gas, oil, or water company threatened to shut off services in your home? No 12/10/2024 Social Connection and Isolat ion Panel [NHANES] Answer Date Recorded In a typical week, how many times do you talk on the phone with family, friends, or neighbors? More than three times a week 12/10/2024 How often do you get togethe r with friends or relatives? More than three times a week 12/10/2024 How often do you attend chur ch or hindu services? Never 12/10/2024 Do you belong to any clubs o r organizations such as restorationist groups, unions, fraternal or athletic groups, or school groups? No 12/10/2024 How often do you attend meet ings of the clubs or organizations you belong to? Never 12/10/2024 Are you , , di vorced, , never , or living with a partner? 12/10/2024 Overall Financial Resource Strain (CARDIA) Answe r Date Recorded How hard is it for you to pa y for the very basics like food, housing, medical care, and heating? Not very hard 12/10/2024 Hunger Vital Sign Answer Date Recorded Within the past 12 months, y ou worried that your food would run out before you got the money to buy more. Never true 12/11/19 25 Within the past 12 months, t he food you bought just didn't last and you didn't have money to get more. Never true 12/10/2024 PRAPARE - Transportation Answer Date Re corded In the past 12 months, has l ack of transportation kept you from medical appointments or from getting medications? No 11/2024 In the past 12 months, has l ack of transportation kept you from meetings, work, or from getting things needed for daily living? No 12/10/2024 Housing Stability Vital Sign Answer Royal e Recorded In the last 12 months, was t here a time when you were not able to pay the mortgage or rent on time? No 12/10/2024 In the past 12 months, how m any times have you moved where you were living? 0 12/10/2024 At any time in the past 12 m [facility], were you homeless or living in a chcf (including now)? No 12/10/2024 Personal Safety Answer Date Recorded Have you ever been in or are you currently in a harmful physical or emotional relationship or is someone making you feel afraid or unsafe? 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 Gender Identity Not on file Sexual Orientation Not on file Obstetrics History Last Filed Vital Signs Vital Sign Reading Time Taken Comments Blood Pressure 140/78 12/12/2024 7:43 AM CDT Pulse 80 12/12/2024 7:43 AM CDT Temperature 36.8 C (98.2 F) 12/12/2024 7:43 AM CDT Respiratory Rate 18 12/12/2024 7:43 AM CDT Oxygen Saturation 99% 12/12/2024 7:49 AM CDT Inhaled Oxygen Concentration - - Weight 84.1 kg (185 lb 8 oz) 12/09/2024 11:15 PM CDT Height 182.9 cm (6' 0.01 ) 12/10/2024 10:28 AM C DT Body Mass Index 25.15 12/09/2024 11:15 PM CDT Plan of Treatment Health Maintenance Due Date Last Done Comments Colon Cancer Screening-Colonoscopy 1955 Depression Screening 1955 Hepatitis C Screening 1955 Prostate Cancer Screening-PSA 1955 DTaP/Tdap/Td Vaccine (1 - Tdap) 1966 Hepatitis B Screening 1973 Zoster Vaccine (1 of 2) 1974 Well Visit 65+ 2020 Pneumococcal vaccine 65+ (3 of 3 - PPSV23, PCV20 or PCV21) 09/11/2020 06/11/2019, 09/11/2015 Covid-19 Vaccine (3 - Pfizer risk series) 12/27/2020 11/29/2020, 11/04/2020 Fall Risk Assessment 12/12/2025 12/12/2024 Influenza Vaccine Completed 08/24/2024, , 06/23/2019, Additional history exists Procedures Procedure Name Priority Date/Time Associated Diagnosis Comments POCT GLUCOSE DEVICE Routine 12/12/2024 1 2:19 PM CDT EGFR Routine 12/12/2024 8:17 AM CDT DIFFERENTIAL AUTO Routine 12/12/2024 8:1 7 AM CDT COMPREHENSIVE METABOLIC PANEL Routine 12/12/2024 8:17 AM CDT CBC WITH AUTO DIFFERENTIAL Routine 12/12/2024 8:17 AM CDT POCT GLUCOSE DEVICE Routine 12/12/2024 7 :44 AM CDT POCT GLUCOSE DEVICE Routine 12/12/2024 4 :09 AM CDT POCT GLUCOSE DEVICE Routine 12/12/2024 1 2:14 AM CDT POCT GLUCOSE DEVICE Routine 12/11/2024 8 :23 PM CDT POCT GLUCOSE DEVICE Routine 12/11/2024 4 :03 PM CDT POCT GLUCOSE DEVICE Routine 12/11/2024 1 2:52 PM CDT INCENTIVE SPIROMETRY RT Routine 12/11/2024 12:00 PM CDT PNEUMONIA PCR WITH AEROBIC CULTURE AND GRAM STAIN STAT 12/11/2024 9:46 AM CDT POCT GLUCOSE DEVICE Routine 12/11/2024 9 :07 AM CDT INCENTIVE SPIROMETRY RT Routine 12/11/2024 8:01 AM CDT EGFR Routine 12/11/2024 7:05 AM CDT DIFFERENTIAL AUTO Routine 12/11/2024 7:0 5 AM CDT COMPREHENSIVE METABOLIC PANEL Routine 12/11/2024 7:05 AM CDT CBC WITH AUTO DIFFERENTIAL Routine 12/11/2024 7:05 AM CDT POCT GLUCOSE DEVICE Routine 12/11/2024 4 :24 AM CDT INCENTIVE SPIROMETRY RT Routine 12/11/2024 4:00 AM CDT POCT GLUCOSE DEVICE Routine 12/11/2024 1 2:[address] ABDOMEN PELVIS WO CONTRAST IP Routine 12/10/2024 11:45 PM CDT POCT GLUCOSE DEVICE Routine 12/10/2024 8 :45 PM CDT POCT GLUCOSE DEVICE Routine 12/10/2024 6 :03 PM CDT POCT GLUCOSE DEVICE Routine 12/10/2024 1 1:54 AM CDT POCT GLUCOSE DEVICE Routine 12/10/2024 7 :40 AM CDT POCT GLUCOSE DEVICE Routine 12/10/2024 4 :28 AM CDT INCENTIVE SPIROMETRY RT Routine 12/10/2024 4:00 AM CDT LEGIONELLA ANTIGEN, URINE Routine 12/10/2024 2:20 AM CDT STREP PNEUMONIAE AG, URINE Routine 12/10/2024 2:20 AM CDT EGFR Routine 12/10/2024 2:13 AM CDT CBC WITHOUT DIFFERENTIAL Routine 12/10/2024 2:13 AM CDT BASIC METABOLIC PANEL Routine 12/10/2024 2:13 AM CDT TROPONIN T HIGH-SENSITIVITY 4-HR Timed 12/10/2024 2:13 AM CDT INCENTIVE SPIROMETRY RT Routine 12/10/2024 12:01 AM CDT INCENTIVE SPIROMETRY RT Routine 12/09/2024 11:27 PM CDT INCENTIVE SPIROMETRY RT Routine 12/09/2024 11:27 PM CDT INCENTIVE SPIROMETRY RT Routine 12/09/2024 11:27 PM CDT INCENTIVE SPIROMETRY RT Routine 12/09/2024 11:27 PM CDT INCENTIVE SPIROMETRY RT Routine 12/09/2024 11:27 PM CDT INCENTIVE SPIROMETRY RT Routine 12/09/2024 11:27 PM CDT POCT GLUCOSE DEVICE Routine 12/09/2024 1 1:20 PM CDT TROPONIN T HIGH-SENSITIVITY 6-HOUR Timed 12/09/2024 10:02 PM CDT MSSA/MRSA (STAPHYLOCOCCUS AUREUS) CULTURE STAT 12/09/2024 8:27 PM CDT TROPONIN T HIGH-SENSITIVITY 2-HOUR Timed 12/09/2024 6:[address] CHEST PE W CONTRAST ED 12/09/2024 6:16 PM CDT XR CHEST PA LATERAL 2 VIEWS ED 12/09/2024 5:24 PM CDT INFLUENZA A/B, RSV, AND COVID-19 PCR STAT 12/09/2024 5:07 PM CDT ECG 12-LEAD STAT 12/09/2024 5:01 PM CDT PRO B-TYPE NATRIURETIC PEPTIDE STAT 12/09/2024 4:22 PM CDT EGFR STAT 12/09/2024 4:22 PM CDT DIFFERENTIAL AUTO STAT 12/09/2024 4:2 2 PM CDT TROPONIN T HIGH-SENSITIVITY SERIES (BASELINE, 2HR, 4HR, 6HR) STAT 12/09/2024 4:22 PM CDT CBC WITH AUTO DIFFERENTIAL STAT 12/09/2024 4:22 PM CDT COMPREHENSIVE METABOLIC PANEL STAT 12/09/2024 4:22 PM CDT from Last 3 Months Results * POCT glucose (12/12/2024 12:19 PM CDT) [facility] Glucose, POC 193 70 - 199 mg/dL Comment:Testing performed by : [facility], [address] [place] [address]., [address] Glucose comment 1 RN/MD Notified CERNER Comment:Testing performed by : [address] [address] Blood 12/12/2024 12:1 9 PM CDT 12/12/2024 12:19 PM CDT us Vitaliy Ugalde MD LAB POCT ORDERABLES - DEVICE Final Result Performing Organization Address [facility] Co de Phone Number MISTI [address] [place] [address] * eGFR (12/12/2024 8:17 AM CDT) eGFR 81 >=60 mL/min/1. 73 m2 Comment: Interpretive Data Reference Interval Normal >/= 90 mL/min/1.73m2 Mildly decreased* 60 - 89 mL/min/1.73m2 Mildly to moderately decreased 45 - 59 mL/min/1.73m2 Moderately to severely decreased 30 - 44 mL/min/1.73m2 Severely decreased 15 - 29 mL/min/1.73m2 Kidney Failure < 15 mL/min/1.73m2 *Relative to young adult level Estimated glomerular filtration rate is determined by the 2020 CKD-EPI equation recommended by the National Kidney Foundation (A Unifying Approach to GFR Estimation: Recommendations of the NKF-ASK Task Force on Reassessing the Inclusion of Race in Diagnosing Kidney Disease, JASN 2020). The CKD-EPI equation should not be used for patients with unstable renal function and has not been validated in children and those over 70. Current interpretive data was last reviewed 2021. Testing performed by: [facility], [address] [place] [address]., [address] Blood 12/12/2024 8:17 AM CDT 12/12/2024 8:46 AM CDT us Vitaliy Ugalde MD LAB BLOOD ORDERABLES F inal Result Performing Organization Address [facility]/ZIP Co de Phone Number MISTI [address] Department [place] [address] * (ABNORMAL) Differential, auto (12/12/2024 8:17 AM CDT) Neutrophil abs 2.98 1.50 - 6.50 K/cumm Comment:Testing performed by : [facility], [address] [place] [address], [place]., [address] Imm gran abs 0.03 0.00 - 0.10 K/cumm MSITI Comment:Testing performed by : [facility], [address] [place] [address], [place]., [address] Lymphocyte abs 0.57(L) 0.80 - 3.30 K/cumm [facility] Comment:Testing performed by : [address], [place]., [address] Monocyte abs 0.28 0.20 - 0.80 K/cumm [facility] Comment:Testing performed by : [address], [place]., [address] Eosinophil abs 0.10 0.00 - 0.50 K/cumm [facility] Comment:Testing performed by : [address], [place]., [address] Basophil abs 0.01 0.00 - 0.10 K/cumm [facility] Comment:Testing performed by : [address] [address] Neutrophil pct 74.9 % [facility] Comment: Interpretive Data Percent cell count reference ranges are not reported, since discordance with absolute values may lead to misinterpretation of CBC data. Current Interpretive Data was last revised on 2017. Testing performed by: [address] [address] Imm gran pct 0.8 % [facility] Comment: Interpretive Data Percent cell count reference ranges are not reported, since discordance with absolute values may lead to misinterpretation of CBC data. Current Interpretive Data was last revised on 2017. Testing performed by: [address] [address] Lymphocyte pct 14.4 % CERNER Comment: Interpretive Data Percent cell count reference ranges are not reported, since discordance with absolute values may lead to misinterpretation of CBC data. Current Interpretive Data was last revised on 2017. Testing performed by: [address] [address] Monocyte pct 7.1 % CERNER Comment: Interpretive Data Percent cell count reference ranges are not reported, since discordance with absolute values may lead to misinterpretation of CBC data. Current Interpretive Data was last revised on 2017. Testing performed by: [address] [address] Eosinophil pct 2.5 % MISTI Comment: Interpretive Data Percent cell count reference ranges are not reported, since discordance with absolute values may lead to misinterpretation of CBC data. Current Interpretive Data was last revised on 2017. Testing performed by: [address] [address] Basophil pct 0.3 % MISTI Comment: Interpretive Data Percent cell count reference ranges are not reported, since discordance with absolute values may lead to misinterpretation of CBC data. Current Interpretive Data was last revised on 2017. Testing performed by: [address] [address] Blood 12/12/2024 8:17 AM CDT 12/12/2024 8:46 AM CDT us Vitaliy Ugalde MD LAB BLOOD ORDERABLES F inal Result [facility] [address] [facility] [place] [address] * (ABNORMAL) CBC with auto differential (12/12/2024 8:17 AM CDT) Pathologist [facility] WBC 3.97 3.80 - 9.90 K/cumm Comment:Testing performed by : [address] [address] Hgb 14.1 13.0 - 17.5 g/dL MISTI Comment:Testing performed by : [address] [address] Hct 41.2 38.9 - 50.3 % MISTI Comment:Testing performed by : [address] [address] Plt 72(L) 150 - 400 K/cumm MISTI Comment:Testing performed by : [address] [address] MPV 11.8 9.1 - 12.3 fL MISIT STATON Comment:Testing performed by : [address] [address] RBC 4.72 4.30 - 5.80 M/cumm MISTI [place] Comment:Testing performed by : [address] [address] MCV 87.3 81.3 - 96.4 fL MISTI [place] Comment:Testing performed by : [address] [address] MCH 29.9 27.1 - 33.3 pg MISTI Comment:Testing performed by : [address] [address] MCHC 34.2 32.3 - 35.7 g/dL MISTI Comment:Testing performed by : [address] [address] RDW CV 12.3 11.1 - 14.9 % MISTI Comment:Testing performed by : [address] [address] RDW SD 39.0 35.7 - 48.1 fL MISTI Comment:Testing performed by : [address] [address] NRBC abs 0.00 0.00 - 0.01 K/cumm MISTI [place] Comment:Testing performed by : [address] [address] Blood 12/12/2024 8:17 AM CDT 12/12/2024 8:46 AM CDT us Vitaliy Ugalde MD LAB BLOOD ORDERABLES F inal Result MISTI [address] [facility] [place] [address] * (ABNORMAL) Comprehensive metabolic panel (12/12/2024 8:17 AM CDT) Sodium 135 135 - 145 mmol/L Comment:Testing performed by : [address] [address] Potassium, pl 4.3 3.3 - 4.9 mmol/L [facility] Comment:Testing performed by : [address] [address] Chloride 100 97 - 110 mmol/L [facility] Comment:Testing performed by : [address], [place]., [address] CO2 29 22 - 32 mmol/L MISTI Comment:Testing performed by : [address] [address] Anion gap 6 2 - 15 mmol/L [facility] Comment:Testing performed by : [address], [place]., [address] BUN 18 6 - 25 mg/dL [facility] Comment:Testing performed by : [address], [place]., [address] Creatinine 1.00 0.80 - 1.30 mg/dL MISTI Comment:Testing performed by : [address] [address] Glucose 158 70 - 199 mg/dL [facility] Comment: Interpretive Data Fasting glucose >/= 126 mg/dl is diagnostic for diabetes. Fasting is defined as no caloric intake for at least 8 hours. Fasting glucose between 100 mg/dl to 125 mg/dl is diagnostic of prediabetes. In a patient with classic symptoms of hyperglycemia or hyperglycemic crisis, a random glucose >/= 200 mg/dl is diagnostic for diabetes. In the absence of unequivocal hyperglycemia, results should be confirmed by repeat testing. The classification and Diagnosis of Diabetes Diabetes Care 202; 46: S19-S40. Current interpretive data was last revised 2022. Testing performed by: [address] [address] Calcium 8.8 8.5 - 10.3 mg/dL MISTI Comment:Testing performed by : [address] [address] Bilirubin, total 0.6 0.1 - 1.2 mg/dL MISTI Comment:Testing performed by : [address] [address] Protein, pl 5.5(L) 6.5 - 8.5 g/dL MISTI STATON Comment:Testing performed by : [address] [address] Albumin 3.0(L) 3.5 - 5.0 g/dL MISTI [place] Comment:Testing performed by : [address] [address] Alk phos 82 40 - 130 Units/L MISTI [place] Comment:Testing performed by : [address] [address] ALT 43 7 - 55 Units/L MISTI Comment:Testing performed by : [address] [address] AST 25 10 - 50 Units/L MISTI Comment:Testing performed by : [address] [address] Blood 12/12/2024 8:17 AM CDT 12/12/2024 8:46 AM CDT us Vitaliy Ugalde MD LAB BLOOD ORDERABLES F inal Result Performing Organization Address City/[facility]/ZIP Co de Phone Number [place] [id number] [facility] [place] [employer] [place] [address] * POCT glucose (12/12/2024 7:44 AM CDT) [facility] Signature Glucose, POC 158 70 - 199 mg/dL Comment:Testing performed by : [address] [address] Glucose comment 1 RN/MD Notified MISTI Comment:Testing performed by : [address] [address] Blood 12/12/2024 7:44 AM CDT 12/12/2024 7:44 AM CDT Vitaliy Ugalde MD LAB POCT ORDERABLES - DEVICE Final Result Performing Organization Address City/[facility]/ZIP Co de Phone Number [place] [id number] [facility] [place] [employer] [place] [address] * POCT glucose (12/12/2024 4:09 AM CDT) Glucose, POC 162 70 - 199 mg/dL Comment:Testing performed by : [address], [address] Blood 12/12/2024 4:09 AM CDT 12/12/2024 4:09 AM CDT us Vitaliy Ugalde MD LAB POCT ORDERABLES - DEVICE Final Result Performing Organization Address [facility] Co de Phone Number ANAMARIA[address] [employer] [place] [address] * POCT glucose (12/12/2024 12:14 AM CDT) Glucose, POC 173 70 - 199 mg/dL Comment:Testing performed by : [address] [address] Glucose comment 1 RN/MD Notified MISTI Comment:Testing performed by : [address], [address] Blood 12/12/2024 12:1 4 AM CDT 12/12/2024 12:14 AM CDT us Vitaliy Ugalde MD LAB POCT ORDERABLES - DEVICE Final Result Performing Organization Address [facility] de Phone Number [address] [address] * POCT glucose (12/11/2024 8:23 PM CDT) Glucose, POC 153 70 - 199 mg/dL Comment:Testing performed by : [address] [address] Blood 12/11/2024 8:23 PM CDT 12/11/2024 8:23 PM CDT Vitaliy Ugalde MD LAB POCT ORDERABLES - DEVICE Final Result Performing Organization Address City/[facility] Co de Phone Number MISTI [address] [address] * POCT glucose (12/11/2024 4:03 PM CDT) [facility] Glucose, POC 186 70 - 199 mg/dL Comment:Testing performed by : [address] [address] Blood 12/11/2024 4:03 PM CDT 12/11/2024 4:03 PM CDT us Vitaliy Ugalde MD LAB POCT ORDERABLES - DEVICE Final Result Performing Organization Address [facility] de Phone Number MISTI [address] [address] * POCT glucose (12/11/2024 12:52 PM CDT) [facility] Glucose, POC 184 70 - 199 mg/dL Comment:Testing performed by : [facility], [address] [place] [address]., [address] Blood 12/11/2024 12:5 2 PM CDT 12/11/2024 12:52 PM CDT us Vitaliy Ugalde MD LAB POCT ORDERABLES - DEVICE Final Result Performing Organization Address [facility] de Phone Number ANAMARIA[address] [address] * (ABNORMAL) Pneumonia PCR with aerobic culture and Gram stain Sputum (12/11/2024 9:46 AM CDT) [facility] Direct Specimen Exam Stain: Abundant squamous epithelial cells seen indicating excessive oropharyngeal contamination. Culture will not be processed further. Please submit another specimen. Smear results called to and read back by: Joao Lambert MT ,[phone] on 12/11/2024 16:04:41 by: Aury Mendoza MT Results phoned to and read back by: [email or web address] on 12/11/2024 16:20:17 by: [id number] Comment:Testing performed by : [facility], [address] [place]., [address] Direct Specimen Exam Molecular Analysis: Abundant squamous epithelial cells observed on Gram stain. Specimen will not be processed for rapid molecular analysis. MISTI STATON Comment:Testing performed by : [facility], [address] [facility], [address] Report Final Report: This is the final report. (.) MISTI STATON Comment:Testing performed by : [facility], [address] [facility], [address] Sputum 12/11/2024 9:46 AM CDT 12/11/2024 2:47 PM CDT Narrative MISTI STATON - 12/12/2024 8:32 AM CDT When rapid molecular testing results are reported, testing completed using the MissingLINKArray Pneumonia Panel.
--- OUTSIDE RECORDS SUMMARY | 2025-01-20 08:19 | XMS_ITS | Clinical Summary ---
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 BARKER OPERATOR 11/15/2017 10:35 AM RING BARKER OPERATOR Zackary Alfonso [facility] CHEMISTRY ORDERABLES F inal Result [facility] Fineline [facility] CLIA# [id number] [address] [facility] [place] [facility] [place] [address] * (ABNORMAL) LIPID PANEL (11/15/2017 5:52 AM RING BARKER OPERATOR) CHOLESTEROL 119 <200 mg/dL 11/15/2017 11:33 AM [facility] Fineline [facility] TRIGLYCERIDE 121 <150 mg/dL 11/15/2017 11:33 AM [facility] Fineline [facility] HDL 24(L) 40 - 59 mg/dL 11/15/2017 11:33 AM [facility] Fineline [facility] LDL CALCULATED 71 <100 mg/dL 11/15/2017 11:33 AM [facility] Fineline [facility] NON-HDL CHOLESTEROL 95 <130 mg/dL 11/15/2017 11:33 AM [facility] Fineline [facility] Blood Venipuncture / Unknown 11/15/2017 5:52 AM RING BARKER OPERATOR 11/15/2017 10:35 AM RING BARKER OPERATOR Narrative [facility] Fineline [facility] - 11/15/2017 11:33 AM RING BARKER OPERATOR TOTAL CHOLESTEROL mg/dL Desirable <200 Borderline high [...] ORDERABLES F inal Result [facility]# [id number] [address] [place] [address] from Last 3 Months or Most Recently Relevant to Health Maintenance Insurance [facility] BLUE PREFERRED Advance Directives For more information, please contact: [phone] * Full Code (Latest Code Status on File) Date Activated Date Inactivated Comments 11/14/2017 12:56 PM 11/21/2017 1:27 PM
== END 2025-01-20 08:11 | disposition home or self-care (01) ==
PROVIDERS: PCP Family Medicine; Visit Provider Internal Medicine Gastroenterology
DX: Z93.1 Gastrostomy status (principal)
CPT/HCPCS: 92611

== ENCOUNTER 2025-03-23 13:30 | Outpatient (RCR) | payer MEDICARE, SELFPAY ==
--- NOTE | 2025-01-26 13:55 | OPREHPOC ---
Outpatient Therapy Plan of Care This is a Multidisciplinary Plan of Care that may contain components documented by all disciplines (PT, OT, and ST.) ST Problem 1 ST Problem #[address] Goal 1 Goal / Goal Update Patient will participate in home programming to improve carry over/generalization of skills to home environment. Target Visit [address] Problem #[address] Goal 1 Goal / Goal Update Dysphagia: 1.Patient will perform an effortful swallow with 85% accuracy minimal cues. 2.Patient will perform tongue base retraction exercises with 85% accuracy minimal cues. 3. Patient will perform a supraglottic swallow with 85% accuracy and minimal cues 4. Patient will perform the Bart maneuver with 85% accuracy and minimal cues. 5. Patient will complete and track a dysphagia HEP with 85% compliance. Target Visit 10
--- NOTE | 2025-01-26 13:56 | STOPEVAL1 ---
Assessment and note entered by Collette Manley TUBE BENDER HAND Evaluation Information Assessment Status Evaluation Reported Pain Level Pain Score 0: Self Report Assessment ST Clinical Summary The patient comes today due to severe dysphagia. Onset is reported following cervical fusion . Since the onset of dysphagia the patient has remained NPO and consumes all nutritional needs via a g tube. The patient has completed 5 MBS studies the most recent completed on 01/20/25. Recommendations remain strict NPO and at this time speech therapy services to address dysphagia concerns. The patient has been completing some home exercises but has not participated in on going speech services to this point. Initiated treatment on this date utilizing the following exercises effortful swallow, Bart Maneuver, Shaker exercise, Supraglottic swallow, and tongue base retraction. The patient was provided with a HEP and tracking form to be completed 2x daily between treatment sessions. Plan of Care Interventions Treatment of Swallowing Dysfunction ST Services Indicated Yes These treatments will address the objective and functional deficits as defined above. The patient will be advanced safely and appropriately in order for the patient to progress towards his/her prior level of function. Additional exercises will be introduced and as well as a comprehensive home exercise program upon discharge, if needed, ?to ensure carryover of functional gains achieved in the clinic. This treatment plan has been reviewed and agreement upon by the patient.
--- NOTE | 2025-02-03 16:47 | OPREHPOC ---
Outpatient Therapy Plan of Care This is a Multidisciplinary Plan of Care that may contain components documented by all disciplines (PT, OT, and ST.) ST Problem 1 ST Problem #[address] Goal 1 Goal / Goal Update Patient will participate in home programming to improve carry over/generalization of skills to home environment. Target Visit [address] Problem 2 ST Problem #[address] Goal 1 Goal / Goal Update Dysphagia: 1.Patient will perform an effortful swallow with 85% accuracy minimal cues. 2.Patient will perform tongue base retraction exercises with 85% accuracy minimal cues. 3. Patient will perform a supraglottic swallow with 85% accuracy and minimal cues 4. Patient will perform the Bart maneuver with 85% accuracy and minimal cues. 5. Patient will complete and track a dysphagia HEP with 85% compliance. Continue Goals 02/03/25: Patient performing above listed exercises with 80% accuracy Target Visit [address] Goal 2 Goal / Goal Update Goal Added: 1. NMES placement with dysphagia treatment to advance patients diet as tolerated following completion of MBS evaluation post treatment.
--- NOTE | 2025-02-03 16:48 | STOPPROG ---
Assessment and note entered by Collette Manley, PROJECT DESIGN ENGINEER Evaluation Information Assessment Status Progress Assessment ST Clinical Summary The patient comes today due to severe dysphagia. Onset is reported following cervical fusion . Since the onset of dysphagia the patient has remained NPO and consumes all nutritional needs via a g tube. The patient has completed 5 MBS studies the most recent completed on 01/20/25. Recommendations remain strict NPO and at this time speech therapy services to address dysphagia concerns. The patient has been completing some home exercises but has not participated in on going speech services to this point. Initiated treatment on this date utilizing the following exercises effortful swallow, Bart Maneuver, Shaker exercise, Supraglottic swallow, and tongue base retraction. The patient was provided with a HEP and tracking form to be completed 2x daily between treatment sessions. Patient has received additional orders for vital Stim(NMES) treatment for dysphagia. Treatment initiated this date with added goals for placement 3A to address vallecular residue, pharyngeal constrictor muscles, and laryngeal elevation. Plan of Care Interventions Treatment of Swallowing Dysfunction ST Services Indicated Yes These treatments will address the objective and functional deficits as defined above. The patient will be advanced safely and appropriately in order for the patient to progress towards his/her prior level of function. Additional exercises will be introduced and as well as a comprehensive home exercise program upon discharge, if needed, ?to ensure carryover of functional gains achieved in the clinic. This treatment plan has been reviewed and agreement upon by the patient.
--- NOTE | 2025-03-02 15:22 | OPREHPOC ---
Outpatient Therapy Plan of Care This is a Multidisciplinary Plan of Care that may contain components documented by all disciplines (PT, OT, and ST.) ST Problem 1 ST Problem #[address] Goal 1 Goal / Goal Update Patient will participate in home programming to improve carry over/generalization of skills to home environment. 03/02/25 : Goal Met Target Visit [address] Problem 2 ST Problem #[address] Goal 1 Goal / Goal Update Dysphagia: 1.Patient will perform an effortful swallow with 85% accuracy minimal cues. (03/02/25 Goal Met) Update to 90% 2.Patient will perform tongue base retraction exercises with 85% accuracy minimal cues.(03/02/25 Goal Met) Update to 90% 3. Patient will perform a supraglottic swallow with 85% accuracy and minimal cues (03/02/25 80% Continue Goal) 4. Patient will perform the Bart maneuver with 85% accuracy and minimal cues. (03/02/25 85% Goal Met) Update 90% New Goal 03/02/25 5. Repeat MBS Study 5. Patient will complete and track a dysphagia HEP with 85% compliance. Continue Goals 02/03/25: Patient performing above listed exercises with 80% accuracy Target Visit [address] Goal 2 Goal / Goal Update Goal Added: 1. NMES placement with dysphagia treatment to advance patients diet as tolerated following completion of MBS evaluation post treatment. (03/02 Goal Met NMES applied per Vital Stim protocol intensity 8.0 with reported squeeze/placement 3b)
--- NOTE | 2025-03-02 15:27 | STOPREEVAL ---
Assessment and note entered by Collette Manley SERVICE STATION MANAGER Evaluation Information Assessment Status Re-evaluation Reported Pain Level Pain Score 0: Self Report Assessment ST Clinical Summary The patient is a 69 yr old male seen for a repeat swallow evaluation. The patient has been receiving speech services as an outpatient to address severe dysphagia post cervical fusion surgery in November 2024. the patient had 5 repeat MBS studies all with recommendation for NPO and currently utilizes a g tube for nutritional needs. Speech intervention has included: Kaila, Effortful swallow, Supraglottic , tongue base retraction, and Bart maneuver, in conjunction with NMES( vital stim protocol) level 8 intensity placement 3b. The patient has been completing a HEP daily between treatment sessions. The patient has been completing exercises in treatment with 85-90% accuracy and has shown a more timely swallow response, increased laryngeal elevation and force of the swallow. On this date patient was presented with trials light puree/mouse and small sips/5cc thin liquid. Vocal quality was wet/raspy only slightly on 2 trials mouse. However with strategies small bite, alternated by a small sip, and throat clear/repeat swallow raspy quality appeared eliminated. No noted coughing on thin/5cc or puree/mouse as noted 2 weeks prior. Plan of Care Interventions Treatment of Swallowing Dysfunction ST Services Indicated Yes Treatment Frequency and 2x a week for 10 visits. Duration These treatments will address the objective and functional deficits as defined above. The patient will be advanced safely and appropriately in order for the patient to progress towards his/her prior level of function. Additional exercises will be introduced and as well as a comprehensive home exercise program upon discharge, if needed, ?to ensure carryover of functional gains achieved in the clinic. This treatment plan has been reviewed and agreement upon by the patient.
--- NOTE | 2025-07-21 10:50 | STOPDC ---
Assessment and note entered by Collette Manley, ABSTRACT SEARCHER Assessment ST Clinical Summary The patient is a 69 yr old male seen for a repeat swallow evaluation. The patient has been receiving speech services as an outpatient to address severe dysphagia post cervical fusion surgery in November 2024. the patient had 5 repeat MBS studies all with recommendation for NPO and currently utilizes a g tube for nutritional needs. Speech intervention has included: Kaila, Effortful swallow, Supraglottic , tongue base retraction, and Bart maneuver, in conjunction with NMES( vital stim protocol) level 8 intensity placement 3b. The patient has been completing a HEP daily between treatment sessions. The patient has been completing exercises in treatment with 85-90% accuracy and has shown a more timely swallow response, increased laryngeal elevation and force of the swallow. The patient has a consult with his surgeon to discuss options that may benefit his swallow function beyond what ABSTRACT SEARCHER services can provide at this time. discharge skilled speech services re consult if indicated in the future. Discharge Note: Patient discontinued services for additional medical intervention. Plan of Care ST Services Indicated Yes
--- NOTE | 2025-07-22 13:26 | PCSTNOTE ---
SPEECH THERAPY DISCHARGE: 07/22/25: Radha Castro NP-C. Mr. Harrell was referred for additional medical services/consult and did not return for further speech services.
== END 2025-04-26 23:59 | disposition home or self-care (01) ==
LOC: ANHST 13:30
PROVIDERS: PCP Family Medicine; Visit Provider Nurse Practitioner
DX: R13.10 Dysphagia, unspecified (principal)
CPT/HCPCS: 92526; 92610

== ENCOUNTER 2025-03-24 13:14 | Outpatient (CLI) | payer MEDICARE, SELFPAY ==
--- NOTE | ~2025-03-24 | US_ITS ---
Renal-Bladder ultrasound Clinical History: Hypertension Technique: Real-time sonographic imaging of the kidneys and urinary bladder was performed. Findings: The right kidney measures 8.8 cm in length and the left kidney measures 11.8 cm. There is n o hydronephrosis or renal calculus identified. Renal cortical echogenicity is within normal limits. N o renal mass lesion is identified. The urinary bladder is moderately distended at the time of this exam. No intraluminal echoes are iden tified. No abnormal wall thickening is seen. Prostate gland enlarged. Impression: Unremarkable ultrasound of the kidneys and urinary bladder. Enlarged prostate gland. Reviewed, dictated and finalized at location . Impression: Unremarkable ultrasound of the kidneys and urinary bladder. Enlarged prostate gland.
== END 2025-03-24 13:15 | disposition home or self-care (01) ==
LOC: GOSHIMG 13:14
PROVIDERS: PCP Family Medicine; Visit Provider Internal Medicine Nephrology
DX: R80.9 Proteinuria, unspecified (principal); N40.0 Benign prostatic hyperplasia without lower urinary tract symptoms; I10 Essential (primary) hypertension; E11.29 Type 2 diabetes mellitus with other diabetic kidney complication
CPT/HCPCS: 76775

== ENCOUNTER 2025-04-08 14:53 | Emergency (ER) | payer MEDICARE, SELFPAY ==
--- NOTE | ~2025-04-08 | CT_ITS ---
EXAMINATION: 1. CT facial & cervical spine wo DATE: 04/08/2025 15:28 INDICATION: Head injury TECHNIQUE: 1. Computed tomography (CT) of the maxillofacial region and of the cervical spine were performed with out intravenous contrast. Sagittal and coronal reconstructions of both regions were obtained. Automat ed exposure control and iterative reconstruction technique were employed. The dose-length product was 381.99 mGy-cm. COMPARISON: Neck CT dated 12/02/2024 FINDINGS: Maxillofacial CT: Right frontal scalp hematoma. No maxillofacial fractures. Specifically the nasal bones, zygomatic arc hes, mandible and robert of the orbits and paranasal sinuses are all intact. Mild undulation the conto ur of the nasal septum which parallels the contours of the turbinates with no fracture. Orbits are no rmal. Paranasal sinuses and the mastoid air cells and middle ear cavities are all clear. Dental disea se with multiple scattered dental caries as well as a few dental restorations. Cervical spine CT: Moderate osteoarthritis at the atlantoaxial articulation. C3-C5 anterior spinal fusion with interbody bone graft cages and anterior plate-screw fixation. Alignment is normal. Unfused vertebral body heig hts are normal. Severe disc height loss at C6-C7 and C7-T1. Mild disc height loss at C2-C3. Prominent nearly bridging anterior osteophytes at C5-C6 through T1-T2 consistent with bridging osteophytes at multiple levels consistent with diffuse idiopathic skeletal hyperostosis (DISH). There posterior disc osteophyte complexes as well as some ossification of the posterior longitudinal ligament resulting i n multilevel mild central canal stenosis from C4 through T1-T2. Severe facet osteoarthritis on the ri ght at C4-C5 and C7-T1 and bilaterally at T2-T3. Mild to moderate facet osteoarthritis at many of the remaining levels. Severe uncovertebral osteoarthritis bilaterally at C6-C7 and C7-T1. There is multi level bilateral neural foraminal stenosis, moderate severity on the left at C2-C3 and on the right at C6-C7 and C7-T1. Mild neural foraminal stenosis at the remaining cervical and upper thoracic levels. Small calcified nodule at the left apex consistent with old granulomatous disease. Cervical soft tis sues are unremarkable. IMPRESSION: 1. Severe cervical and cervicothoracic spondylosis with prior instrumented C3-C5 anterior spinal fusi on. No acute osseous abnormality. Reviewed, dictated and finalized at location A. IMPRESSION: 1. Severe cervical and cervicothoracic spondylosis with prior instrumented C3-C 5 anterior spinal fusion. No acute osseous abnormality.
--- NOTE | ~2025-04-08 | CT_ITS ---
EXAMINATION: CT brain wo con DATE: 04/08/2025 15:28 INDICATION: Head trauma TECHNIQUE: Computed tomography (CT) of the head was performed without intravenous contrast. Sagittal and coronal reconstructions were performed. The mA was adjusted according to patient size. Iterative reconstruction technique was employed. The dose-length product was 681.00 mGy-cm. COMPARISON: Brain MR dated 11/26/2024 FINDINGS: Moderate-sized right frontal scalp hematoma. No calvarial fracture. No acute intracranial hemorrhage, acute infarction or abnormal extra axial fluid collection. Small old lacunar infarct at the right ba los ganglia. No significant interval change in a 3.0 x 2.4 x 2.3 cm extra-axial mass in the anterior cranial fossa centered along the anterior falx with corresponding measurements of 2.9 x 2.3 x 2.4 cm on prior MRI from 11/26/2024. Location, appearance and lack of interval growth of all favor a benign m eningioma. There is mild scattered white matter hypoattenuation consistent with chronic small vessel ischemic disease. Symmetric prominence of the sulci consistent with mild age-appropriate diffuse cere bral volume loss. Ventricles are normal and symmetric. The orbits, paranasal sinuses and mastoid air cells are normal. IMPRESSION: 1. No fracture or acute intracranial process. 2. No significant interval change in a 3.0 cm extra-axial mass along the anterior falx most consisten t with a meningioma. 3. Small old lacunar infarct at the right basal ganglia. 4. Age-related changes including mild diffuse volume loss and mild scattered white matter hypoattenua tion consistent with chronic small vessel ischemic disease. Reviewed, dictated and finalized at location A. IMPRESSION: 1. No fracture or acute intracranial process. 2. No significant interval change in a 3.0 cm extra-axial mass along the anteri or falx most consistent with a meningioma. 3. Small old lacunar infarct at the right basal ganglia. 4. Age-related changes including mild diffuse volume loss and mild scattered wh ite matter hypoattenuation consistent with chronic small vessel ischemic diseas e.
--- OUTSIDE RECORDS SUMMARY | 2025-04-08 14:55 | XMS_ITS ---
Author Organization [facility] Address [address] [facility] [place] [address] Care Team Providers Care Client Support Coordinator Name Role Phone RobbyalenaSharri liu DO Primary Care Provider [phone] Qi Story RN Unavailable Unavailable Transplant Episode Liver Recipient [facility] ([place], [place]) - [facility] Organ Received: Liver Transplanted on 11/03/2017 Marked as Active Follow-up on 11/03/2017 Liver CoordinatorQi Story RN Phone: N/A Fax: N/A Email: N/A [place] Organ Diagnosis Organ Primary Contributory Liver Cirrhosis: [...] N/A N/A Ramon Morales MD Referring Physician [phone] N/A Janae Diaz MD Transplant Surgeon [phone] N/A Events Post-Transplant Pre-Transplant Admitted: 11/03/2017 Referred: 05/25/2016 Transplanted: 11/03/2017 Evaluation began: 6 Discharged: 11/14/2017 Center waitlisted: 6
--- OUTSIDE RECORDS SUMMARY | 2025-04-08 14:55 | XMS_ITS | Referral Summary ---
Author Organization [facility] Address [address] [place] [address] Care Team Providers Care Audio Visual Secretary Name Role Phone Sharri Argueta DO Primary Care Provider [phone] Allergies Active Allergy Reactions Criticality Noted Date [...] Packs/Day Years Used Date Smoking Tobacco: Never [facility] Utilities Answer Date Recorded In the past 12 months has th e [employer], gas, oil, or water [employer] threatened to shut off services in your [...] often do you attend chur ch or pentecostal services? Never 12/10/2024 Do you belong to any clubs o r organizations such as mormonism groups, unions, fraternal or athletic groups, or [...] any time in the past 12 m [facility], were you homeless or living in a usp (including now)? No 12/10/2024 Personal Safety Answer Date Recorded Have you ever been in or are you currently in a harmful physical or emotional relationship or is someone making you feel afraid or unsafe? 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 Gender Identity Not on file Sexual Orientation [...] 11:15 PM CDT Height 182.9 cm (6' 0.01) 12/10/2024 10:28 AM C DT Body Mass Index 25.15 12/09/2024 11:15 PM CDT Plan of Treatment Not on file Insurance [facility] MEDICARE ADVANTAGE Advance Directives For more information, please contact: [phone] * Full Code (Latest Code Status on File) Date Activated Date Inactivated Comments 12/09/2024 11:34 PM 12/12/2024 7:27 PM * Full Code Date Activated Date Inactivated Comments 12/09/2024 8:20 PM 12/09/2024 11:34 PM Care Teams Audio Visual Secretary Relationship Specialty Start Date End Date Sharri Argueta DO [facility] [address] [address] PCP - General Family Medicine 12/09/24
--- OUTSIDE RECORDS SUMMARY | 2025-04-08 14:55 | XMS_ITS | Encounter Summary ---
Author Organization [facility] Address [address] [place] [address] Care Team Providers Care Point Of Sale Associate Name Role Phone Rod Sanches MD Primary Care Provider [phone] Phylicia Beck RN Unavailable Unavailable Sharri Argueta DO Primary Care Provider [phone] Rod Sanches MD Primary Care Provider [phone] Sharri Argueta DO Primary Care Provider [phone] Qi Story RN Unavailable Unavailable Encounter Details Date Type Department Care Team (Late st Contact Info) Description 05/06/2018 Nutrition [facility] [address] [place] [address]/LOLLY Social History Tobacco Use Types Packs/Day Years Used Date Smoking Tobacco: Former Cigarettes Q uit: 09/11/1983 Smokeless Tobacco: Never Alcohol Use Standard Drinks/Week Comments No 0 (1 standard drink = 0.6 oz pur e alcohol) Sex and Gender Information Value Date Recorded Sex Assigned at Not on file Legal Sex Male 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 Gender Identity Not on file Sexual Orientation Straight 07/31/2024 7: 47 PM CUTTER OPERATOR BRICK documented as of this encounter Progress Notes [...] Saturday- Dinner - 6 fried chicken wings, citizen of [place] fries, HS - 6 cookies Saturday - [...] Care Team (Late st Contact Info) Description 06/08/2025 1:00 PM CDT Office Visit [facility] ENT [address] [place] [address] [phone] Jay Jay Messina MD [address] [place] [address] [place] [address] 08/10/2025 12:00 PM CUTTER OPERATOR BRICK Office Visit [facility] - GI [address] [place] [address] [phone] Ramon Morales MD [address] [place] [address] [place] [address] documented as of this encounter Visit Diagnoses Not on filedocumented in this encounter Care Teams Point Of Sale Associate Relationship Specialty Start Date End Date Rod Sanches MD [address] [place] [address] PCP - General 06/09/16 01/13/20 Sharri Argueta DO [address] [place] [address] PCP - General 01/14/20 04/06/20 Rod Sanches MD [address] [place] [address] PCP - General 04/07/20 10/22/20 Sharri Argueta DO [address] [place] [address] PCP - General 10/23/20 Phylicia Beck, RN Registered Nurse 12/23/17 10/27/20 Qi Story, VALENTIN Registered Nurse 10/28/20 documented as of this encounter
--- OUTSIDE RECORDS SUMMARY | 2025-04-08 14:55 | XMS_ITS | Clinical Summary ---
Author Organization [facility] Address [address] [place] [address] Care Team Providers Care Lumber Inspector Name Role Phone Sharri Argueta DO Primary Care Provider [phone] Allergies Active Allergy Reactions Criticality Noted Date [...] Packs/Day Years Used Date Smoking Tobacco: Never [facility] Utilities Answer Date Recorded In the past 12 months has th e [employer], gas, oil, or water [employer] threatened to shut off services in your [...] often do you attend chur ch or jew services? Never 12/10/2024 Do you belong to any clubs o r organizations such as buddhist groups, unions, fraternal or athletic groups, or [...] were you homeless or living in a long term (including now)? No 12/10/2024 Personal Safety Answer Date Recorded Have you ever been in or are you currently in a harmful physical or emotional relationship or is someone making you feel afraid or unsafe? 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 Gender Identity Not on file Sexual Orientation [...] - Pfizer risk series) 12/27/2020 11/29/2020, 11/04/2020 Influenza Vaccine (#1) 2025 , 05/31/2023, 06/23/2019, Additional history exists Fall Risk Assessment 12/12/2025 12/12/2024 Insurance [facility] MEDICARE ADVANTAGE [facility] MEDICARE Address: [address] [address] Advance Directives For more information, please contact: [phone] * Full Code (Latest Code Status on File) Date Activated Date Inactivated Comments 12/09/2024 11:34 PM 12/12/2024 7:27 PM * Full Code Date Activated Date Inactivated Comments 12/09/2024 8:20 PM 12/09/2024 11:34 PM Care Teams Lumber Inspector Relationship Specialty Start Date End Date Sharri Argueta DO [facility] [address] [place] [address] [place] [id number] PCP - General Family Medicine 12/09/24
--- OUTSIDE RECORDS SUMMARY | 2025-04-08 14:55 | XMS_ITS | Clinical Summary ---
Author Organization [facility] Address [address] [facility] [place] [place] [address] Phone Care Team Providers Care Tin Cutter Name Role Phone Unavailable Primary Care Provider [...] on file Legal Sex Male 7:29 AM MARQUETRY WORKER Gender Identity Not on file Sexual Orientation [...] 185.4 cm (6' 1) 11/14/2017 8:00 PM MARQUETRY WORKER Body Mass Index 32.06 11/14/2017 8:00 PM MARQUETRY WORKER Plan of Treatment Health Maintenance Due Date [...] 50+ YEA RS (3 of 3 - PCV20 or PCV21) 09/11/2020 06/11/2019, 09/11/2015 DIABETES HBA1C Q 6 MONTHS 09/14/2020 03/14/2020, 05/2018 COVID-19 Vaccine (3 - Pfizer risk series) 12/27/2020 11/29/2020, 11/04/2020 INFLUENZA VACCINE (#1) 2025 05/31/2023, 2018 COLORECTAL SCREENING 04/04/2030 04/04/2020 Colorectal Cancer Screening 04/04/2030 Procedures Procedure Name Priority Date/Time Associated Diagnosis Comments LIPID PANEL Routine 11/15/2017 5:52 AM MARQUETRY WORKER HEMOGLOBIN A1C Routine 11/15/2017 5:52 AM MARQUETRY WORKER from Last 3 Months or Most Recently Relevant to Health Maintenance Results * HEMOGLOBIN A1C (11/15/2017 5:52 AM MARQUETRY WORKER) HEMOGLOBIN A1C 6.0 4.0 - 6.0 % 11/15/2017 11:36 AM [facility] [employer] [facility] EST. AVG GLUCOSE, A1C 126 mg/dL 11/15/2017 11:36 AM [facility] [employer] [facility] Blood Venipuncture / Unknown 11/15/2017 5:52 AM MARQUETRY WORKER 11/15/2017 10:35 AM MARQUETRY WORKER Zackary Alfonso [facility] CHEMISTRY ORDERABLES F inal Result [facility] [employer] [facility] CLIA# [id number] [address] [facility] [place] [address] * (ABNORMAL) LIPID PANEL (11/15/2017 5:52 AM MARQUETRY WORKER) CHOLESTEROL 119 <200 mg/dL 11/15/2017 11:33 AM [facility] [employer] [facility] TRIGLYCERIDE 121 <150 mg/dL 11/15/2017 11:33 AM [facility] [employer] [facility] HDL 24(L) 40 - 59 mg/dL 11/15/2017 11:33 AM [facility] [employer] [facility] LDL CALCULATED 71 <100 mg/dL 11/15/2017 11:33 AM [facility] [employer] [facility] NON-HDL CHOLESTEROL 95 <130 mg/dL 11/15/2017 11:33 AM [facility] [employer] [facility] Blood Venipuncture / Unknown 11/15/2017 5:52 AM MARQUETRY WORKER 11/15/2017 10:35 AM MARQUETRY WORKER Narrative [facility] [employer] [facility] - 11/15/2017 11:33 AM MARQUETRY WORKER TOTAL CHOLESTEROL mg/dL Desirable <200 Borderline high [...] ORDERABLES F inal Result [facility]# [id number] [address] [place] [address] from Last 3 Months or Most Recently Relevant to Health Maintenance Insurance Advance Directives For more information, please contact: [phone] * Full Code (Latest Code Status on File) Date Activated Date Inactivated Comments 11/14/2017 12:56 PM 11/21/2017 1:27 PM
--- OUTSIDE RECORDS SUMMARY | 2025-04-08 14:55 | XMS_ITS | Clinical Summary ---
Author Organization [facility] Address [facility] [place] [address] Care Team Providers Care Traffic Inspector Name Role Phone Rod Sanches MD Primary Care Provider [phone] Social History Tobacco Use Types Packs/Day Years [...] age to complete this topic Care Teams Traffic Inspector Relationship Specialty Start Date End Date Rod Sanches MD [address] [place] [address] PCP - General 09/10/15
--- OUTSIDE RECORDS SUMMARY | 2025-04-08 14:55 | XMS_ITS | Clinical Summary ---
Author Organization [facility] Address [address] [place] [address] Care Team Providers Care Senior Stock Plan Administrator Name Role Phone Sharri Argueta DO Primary Care Provider [phone] Qi Story RN Unavailable Unavailable Source Comments [facility],non-owned Affiliates and Associated Physician Practices is amultiple site organization consisting of ambulatory clinics and hospital sitesin [place], [place], [place] and [place]. This disclosure is being madepursuant to the Care Everywhere program and may not contain all information available regarding this patient. 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 -start TAC oint BID PRN w wet wraps, instructions provided Multiple benign melanocytic nevi of upper extremity, lower extremity, and trunk 11/04/2020 Assessment & Plan (11/04/2020 12:01 PM CASING OPERATOR): - None atypical or more concerning than others on exam today - Counseled on importance of daily sun protection, and monthly self skin exams - Reviewed ABCDEs of melanoma - Advised sun protective behaviors and regular sun screen use - Annual FBSE Lentigines 11/04/2020 Assessment & Plan (11/04/2020 12:01 PM CASING OPERATOR): -Benign, reassurance Other specified dermatitis 11/04/2020 Seborrheic keratosis 11/04/2020 Neutropenia 10/28/2020 History of hepatocellular carcinoma 11/20/2018 Long-term use of immunosuppressant medication Benign essential HTN 08/28/2018 IPMN (intraductal papillary mucinous neoplasm) 0 05/23/2018 Fatty pancreas 05/08/2018 Right inguinal hernia 05/08/2018 Overview (05/08/2018): Indirect Diabetes mellitus type 2, uncontrolled 8 Pre-transplant evaluation for liver transplant 0 12/23/2017 Overview (12/23/2017): LISTED Diagnosis: BRADSHAW/HCC Referring Automotive Production Worker: Andrew Alert: Will need renoportal at the [...] Impression: It is the impression of this community mental health social worker that Robert Washington has several positive factors for Liver transplant candidacy including knowledge of illness, sufficient insurance coverage, stable financial situation for post transplant needs, and no concerns regarding substance abuse. SW concerns are patient's support system and discharge plan. Plan: tin worker to provide supportive services as needed. Patient appears to be a reasonable candidate for transplant from a psychosocial perspective, pending: - Post transplant arrangement forms are needed prior to being listed, with confirmation. Psychiatric Consult Recommended: No Transplant Linter Tender: MIKY OVERTON RD: 24 Hour Recall/food frequency: eggs, chocolate milk, salad, spaghetti, hamburger, [place] - loaiza seared, mash potatoes, broccoli, corn cauliflower, apples, ham and djiboutian, lettuce and tomato sandwich, Ramen noodles about [...] Transplant Date: 11/03/2017 Donor: Standard criteria donor [id number] CMV D-/R-, EBV D+/R+ Pre-Transplant Summary: ESLD [...] PCP Adjustments: Readmissions: Biopsies: Explant Liver, explant, craig hepatectomy (A): - Cirrhosis (history of BRADSHAW) - Completely necrotic nodule in right lobe (4.0 cm) - Macroregenerative nodules, multifocal - Focal dysplasia (small and large cell changes) - Hepatocellular iron focally up to 4+ - No viable hepatocellular carcinoma identified Gallbladder, craig hepatectomy (A): - Mild chronic cholecystitis Gallbladder, [...] cirrhosis. The PAS-D stain is negative for eknlp-1-qaxxpdlidzn globules. The iron stain shows granular hepatocellular [...] from the prior study (LR 3). 2. Mqqpds-ylusv-khpvnl venous anastomosis, with unchanged aneurysmal dilatation at [...] liver without washout (LR 3). 2. Patent ssyjnd-uwzto-uwibes venous anastomosis, with unchanged aneurysmal dilatation of [...] recommended. Assessment & Plan (11/04/2020 12:01 PM CASING OPERATOR): -discussed inc risk NMSC/MM - Reviewed [...] Encounters Date Type Department Care Team Description 03/31/2025 Travel 03/26/2025 Orders Only [facility] - GI [address] [place] [phone] Ramon Morales MD S/P liver transplant (HCC); Benign essential HTN; Long-term use of immunosuppressant medication 02/26/2025 Orders Only [facility] - GI [address] [place] [phone] Ramon Morales MD S/P liver transplant (HCC); Benign essential HTN; Long-term use of immunosuppressant medication 02/02/2025 12:00 PM CDT Office Visit [facility] - [address] [phone] Ramon Morales MD S/P liver transplant (HCC) (Primary Dx); Benign essential HTN; Long-term use of immunosuppressant medication; Oropharyngeal dysphagia; S/P percutaneous endoscopic gastrostomy (PEG) tube placement (HCC) 02/02/2025 Travel from Last 3 Months Immunizations Immunization Administration Dates Next Due Compact Particle Acceleration primary monoval ent 12+ yr 0.3mL Purple [...] on file Legal Sex Male 5:15 PM CASING OPERATOR Gender Identity Not on file Sexual Orientation Straight 07/31/2024 7: 47 PM CASING OPERATOR Last Filed Vital Signs Vital Sign Reading Time Taken Comments Blood Pressure 114/71 02/02/2025 11:29 AM CDT Pulse 71 02/02/2025 11:29 AM CDT Temperature 36.3 C (97.3 F) 02/02/2025 11:29 AM CDT Respiratory Rate 18 07/21/2024 1:48 PM CASING OPERATOR Oxygen Saturation 100% 02/02/2025 11:29 AM CDT Inhaled Oxygen Concentration - - Weight 84.2 kg (185 lb 9.6 oz) 02/02/2025 11:29 AM CDT Height 182.9 cm (6') 02/02/2025 11:29 AM CDT Body Mass Index 25.17 02/02/2025 11:29 AM CDT Plan of Treatment Upcoming Encounters Date Type Department Care Team (Late st Contact Info) Description 06/08/2025 1:00 PM CDT Office Visit [facility] - ENT [address] [place] [phone] Jay Jay Messina MD [address] [place] [address] [address] [place] [address] 08/10/2025 12:00 PM CASING OPERATOR Office Visit [facility] - GI [address] [place] [phone] Ramon Morales MD [address] [place] [address] [address] [place] [address] Health Maintenance Due Date Last Done Comments [...] PNEUMOCOCCAL VACCINE 50+ (3 of 3 - PCV20 or PCV21) 09/11/2020 06/11/2019, 09/11/2015 DIABETES-HGB A1C 09/14/2020 03/14/2020, 09/2019, 12/22/2019, Additional history exists COVID-19 VACCINE (3 - Pfizer risk series) 12/27/2020 11/29/2020, 11/04/2020 DEPRESSION SCREENING 09/09/2024 DIABETES - URINE PROTEIN SCREENING 09/09/2024 MEDICARE AWV CALENDAR YEAR 2024 INFLUENZA VACCINE (#1) 2025 , 05/31/2023, 06/23/2019, Additional history exists DIABETES-SERUM CREATININE 02/17/20262024, 07/15/2024, 02/12/2024, Additional history exists COLON MONITORING 04/04/2030 04/04/2020, [...] Patient-Stated? Author Medication Management General On track( 025 2:36 PM CDT) No Ayah Coleman, RN Note: Expected end date: ongoing Interventions: Take all medications as prescribed Procedures Procedure Name Priority Date/Time Associated Diagnosis Comments TACROLIMUS LEVEL Routine 02/17/2025 8:40 AM CDT S/P liver transplant (HCC) Benign essential HTN Long-term use of immunosuppressant medication COMPREHENSIVE METABOLIC PANEL Routine 02/17/2025 8:40 AM CDT S/P liver transplant (HCC) Benign essential HTN Long-term use of immunosuppressant medication CBC W AUTO DIFFERENTIAL Routine 02/17/2025 8:40 AM CDT S/P liver transplant (HCC) Benign essential HTN Long-term use of immunosuppressant medication ENDOSCOPY, COLON, SCREENING Routine 04/04/2020 9:37 AM CDT HEMOGLOBIN A1C 03/14/2020 8:46 AM CDT HEPATITIS C ANTIBODY Routine 09/11/2015 10:46 AM CASING OPERATOR from Last 3 Months or Most Recently Relevant to Health Maintenance Results * TACROLIMUS LEVEL (02/17/2025 8:40 AM CDT) Tacrolimus 5.9 mcg/L [facility] Comment: No definitive therapeutic or toxic ranges have been established. Optimal blood drug levels are influenced by type of transplant, patient response, time post- transplant, co-administration of other drugs, and drug formulation. The following trough range is a suggested guideline: 5.0-20.0 mcg/L. REPORT COMMENT: FASTING:YES Test Performed at: [facility] [address] [place] [phone] KAMAR ALEXANDRE MD Blood BLOOD SPECIMEN / Unknown 02/17/2025 8:40 AM CDT 02/17/2025 8:40 AM CDT Ramon Morales MD LAB - THERAPEUTIC DRUG MONITOR ING ORDERABLES Final Result [facility] [address] [place] [address] * (ABNORMAL) CBC WITH DIFFERENTIAL (02/17/2025 8:40 AM CDT) White Blood Cell Count 3.6(L) 3.8 - 10.8 Thousand/u L [facility] RBC 4.37 4.20 - 5.80 Million/uL [facility] Hemoglobin 13.5 13.2 - 17.1 g/dL [facility] Hematocrit 41.1 38.5 - 50.0 % [facility] MCV 94.1 80.0 - 100.0 fL [facility] MCH 30.9 27.0 - 33.0 pg [facility] MCHC 32.8 32.0 - 36.0 g/dL [facility] Comment: For adults, a slight decrease in the calculated MCHC value (in the range of 30 to 32 g/dL) is most likely not clinically significant; however, it should be interpreted with caution in correlation with other red cell parameters and the patient's clinical condition. RDW 12.7 11.0 - 15.0 % [facility] Platelet Count 71(L) 140 - 400 Thousand/u L [facility] MPV 12.0 7.5 - 12.5 fL [facility] Neutrophil Absolute 2182 1500 - 7800 cells/uL [facility] Lymphocytes Absolute 979 850 - 3900 cells/uL [facility] Absolute Monocytes 299 200 - 950 cells/uL [facility] Eosinophils Absolute 119 15 - 500 cells/uL [facility] Basophils Absolute 22 0 - 200 cells/uL [facility] Granulocytes % 60.6 % [facility] Lymphocytes % 27.2 % [facility] Monocytes % 8.3 % [facility] Eosinophils % 3.3 % [facility] Basophils % 0.6 % [facility] Comments [facility] Comment: Review of the peripheral smear reveals decreased numbers of platelets. Test Performed at: [facility] [address] [place] [address] KAMAR ALEXANDRE MD Blood BLOOD SPECIMEN / Unknown 02/17/2025 8:40 AM CDT 02/17/2025 8:40 AM CDT Ramon Morales MD LAB - HEMATOLOGY ORDERABLES Fi nal Result [facility] [address] [place] [address] * (ABNORMAL) COMPREHENSIVE METABOLIC PANEL (02/17/2025 8:40 AM CDT) Pathologist [facility] Glucose 121(H) 65 - 99 mg/dL [facility] Comment: Fasting reference interval For someone without known diabetes, a glucose value between 100 and 125 mg/dL is consistent with prediabetes and should be confirmed with a follow-up test. BUN 37(H) 7 - 25 mg/dL [facility] Creatinine 1.02 0.70 - 1.35 mg/dL [facility] eGFR by Cystatin C 80 > OR = 60 mL/min/1.7 3m2 [facility] BUN/Creatinine Ratio 36(H) 6 - 22 (calc) [facility] Sodium 138 135 - 146 mmol/L [facility] Potassium 4.7 3.5 - 5.3 mmol/L [facility] Chloride 99 98 - 110 mmol/L [facility] CO2 33(H) 20 - 32 mmol/L [facility] Calcium 9.2 8.6 - 10.3 mg/dL [facility] Protein Total 5.8(L) 6.1 - 8.1 g/dL [facility] Albumin 4.0 3.6 - 5.1 g/dL [facility] Globulin Total 1.8(L) 1.9 - 3.7 g/dL (calc) [facility] Albumin/Globulin Ratio 2.2 1.0 - 2.5 (calc) [facility] Bilirubin Total 0.6 0.2 - 1.2 mg/dL [facility] Alkaline Phosphatase 64 35 - 144 U/L [facility] AST 12 10 - 35 U/L [facility] ALT 11 9 - 46 U/L [facility] Comment: Test Performed at: [facility] [address] [place] [address] KAMAR ALEXANDRE MD Blood BLOOD SPECIMEN / Unknown 02/17/2025 8:40 AM CDT 02/17/2025 8:40 AM CDT Ramon Morales MD LAB - CHEMISTRY ORDERABLES Fin al Result [facility] [address] [place] [address] * ENDOSCOPY, COLON, SCREENING (04/04/2020 9:37 AM CDT) Report Endoscopy POC Endoscopy Department Report _ Patient Name: Robert Espositoein Procedure Date: 04/04/2020 9:37 AM Date of [...] and oxygen saturations were monitored continuously. The [id number] was introduced through the anus and advanced to the cecum, identified by appendiceal orifice and ileocecal valve. The colonoscopy was performed without difficulty. The patient tolerated the procedure well. The quality of the bowel preparation was evaluated using the BBPS ([place] Bowel Preparation Scale) with scores of: Right [...] non-shelby portions. Procedure Code(s): --- Professional --- 57119, Colonoscopy, flexible; with removal of tumor(s), polyp(s), or other lesion(s) by snare technique 43200, 59, Colonoscopy, flexible; with biopsy, single or multiple Diagnosis Code(s): --- Professional --- Z12.11, Encounter for screening for malignant neoplasm of colon K63.5, Polyp of colon K62.1, Rectal polyp CPT copyright 2019 [employer]. All rights reserved. The codes documented in this report are preliminary and upon sap bw developer review may be revised to meet current compliance requirements. _ Ramon Morales MD 04/04/2020 10:34:35 AM This report has been signed electronically. Note Initiated On: 04/04/2020 9:37 AM Number of Addenda: 0 [facility] [address] [place] [address] [facility] 04/04/2020 9:37 AM CDT Elda Rashid MD GI PROCEDURE ORDERABLES Edited Result - Final Performing Organization Address [facility] Co de Phone Number [facility] * (ABNORMAL) HEMOGLOBIN A1C (03/14/2020 8:46 [...] of diabetes for children. Test Performed at: [facility] [address] [place] [address] OMARI HOFFMANN DO,MPH 03/14/2020 8:46 AM CDT 03/14/2020 8:47 AM CDT Ramon Morales MD LAB - CHEMISTRY ORDERABLES Fin al Result Performing Organization Address [facility] de Phone Number [facility] [address] [place] [address] * HEPATITIS C ANTIBODY (09/11/2015 10:46 AM CASING OPERATOR) Pathologist [facility] Hepatitis C Antibody Non-react rosendo Non-reac tive [facility] Comment: Hepatitis C Antibody screen indicates no serologic evidence of past or current infection with Hepatitis C Virus. Patients with unexplained liver disease who are immunocompromised or suspected of having acute Hepatitis C infection may benefit from Nucleic Acid Test (ERUM) for Hepatitis C Viral RNA to confirm Hepatitis C status. Blood specimen (specimen) BLOOD SPECIMEN / Unknown 09/11/2015 10:46 AM CASING OPERATOR 09/11/2015 10:52 AM CASING OPERATOR Scott Lee MD LAB - CHEMISTRY ORDERABLES F inal Result Performing Organization Address [facility] Co de Phone Number [address] [phone] from Last 3 Months or Most Recently Relevant to Health Maintenance Insurance [facility] MANAGED MEDICARE ADV [facility] MANAGED MEDICARE ADV Advance Directives Documents on File Type Date Recorded Patient Rough Rounder Machine Expl anation Advance Directives and Livin g Will 07/17/2016 12:00 AM Advance Directives and Livin g Will 09/11/2015 12:00 AM Care Teams Senior Stock Plan Administrator Relationship Specialty Start Date End Date Sharri Argueta DO [address] [place] [address] PCP - General 10/23/20 Qi Story, RN Registered Nurse 10/28/20
--- OUTSIDE RECORDS SUMMARY | 2025-04-08 14:55 | XMS_ITS ---
Author Organization [facility] Address [address] 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 -start TAC oint BID PRN w wet wraps, instructions provided Multiple benign melanocytic nevi of upper extremity, lower extremity, and trunk 11/04/2020 Assessment & Plan (11/04/2020 12:01 PM YARD SUPERVISOR): - None atypical or more concerning than others on exam today - Counseled on importance of daily sun protection, and monthly self skin exams - Reviewed ABCDEs of melanoma - Advised sun protective behaviors and regular sun screen use - Annual FBSE Lentigines 11/04/2020 Assessment & Plan (11/04/2020 12:01 PM YARD SUPERVISOR): -Benign, reassurance Other specified dermatitis 11/04/2020 Seborrheic keratosis 11/04/2020 Neutropenia 10/28/2020 History of hepatocellular carcinoma 11/20/2018 Long-term use of immunosuppressant medication Benign essential HTN 08/28/2018 IPMN (intraductal papillary mucinous neoplasm) 0 05/23/2018 Fatty pancreas 05/08/2018 Right inguinal hernia 05/08/2018 Overview (05/08/2018): Indirect Diabetes mellitus type 2, uncontrolled 8 Pre-transplant evaluation for liver transplant 0 12/23/2017 Overview (12/23/2017): LISTED Diagnosis: BRADSHAW/HCC Referring Water Resource Manager: Andrew Alert: Will need renoportal at the [...] Impression: It is the impression of this school social worker that Robert Harrell has several positive factors for Liver transplant candidacy including knowledge of illness, sufficient insurance coverage, stable financial situation for post transplant needs, and no concerns regarding substance abuse. SW concerns are patient's support system and discharge plan. Plan: workers' compensation hearings officer to provide supportive services as needed. Patient appears to be a reasonable candidate for transplant from a psychosocial perspective, pending: - Post transplant arrangement forms are needed prior to being listed, with confirmation. Psychiatric Consult Recommended: No Transplant Lab Associate: MIKY OVERTON RD: 24 Hour Recall/food frequency: eggs, chocolate milk, salad, spaghetti, hamburger, [place] - loaiza seared, mash potatoes, broccoli, corn cauliflower, apples, ham and georgian, lettuce and tomato sandwich, Ramen noodles about [...] Transplant Date: 11/03/2017 Donor: Standard criteria donor [id number] CMV D-/R-, EBV D+/R+ Pre-Transplant Summary: ESLD [...] PCP Adjustments: Readmissions: Biopsies: Explant Liver, explant, chuloonawick hepatectomy (A): - Cirrhosis (history of BRADSHAW) - Completely necrotic nodule in right lobe (4.0 cm) - Macroregenerative nodules, multifocal - Focal dysplasia (small and large cell changes) - Hepatocellular iron focally up to 4+ - No viable hepatocellular carcinoma identified Gallbladder, chuloonawick hepatectomy (A): - Mild chronic cholecystitis Gallbladder, [...] cirrhosis. The PAS-D stain is negative for impsj-7-zrnjcblbqhe globules. The iron stain shows granular hepatocellular [...] from the prior study (LR 3). 2. Zbuccf-laacg-rirlwa venous anastomosis, with unchanged aneurysmal dilatation at [...] liver without washout (LR 3). 2. Patent aqzxoq-kvueu-lczbwl venous anastomosis, with unchanged aneurysmal dilatation of [...] recommended. Assessment & Plan (11/04/2020 12:01 PM YARD SUPERVISOR): -discussed inc risk NMSC/MM - Reviewed ABCDEs [...]
[2025-04-08 15:03] VITALS: BP 122/75; PULSE 68; RESP 16; TEMP 36.7; O2SAT 100
--- NOTE | 2025-04-08 15:10 | ED.HEATRA ---
HPI - Head Injury General Chief complaint: Head Injury <Katalina Scott APRN - Last Filed: 04/09/25 09:36> Stated complaint: FALL, FACIAL BRUISING <Katalina Scott APRN - Last Filed: 04/09/25 09:36> Time Seen by Provider: 04/08/25 15:10 <Katalina Scott APRN - Last Filed: 04/09/25 09:36> Focused HPI: Patient is a 69-year-old male who presents to the ER after sustaining a fall. He reports he was walking and tripped on a throw rug. When patient fell he hit the side of his refrigerator with the right side of his face. Patient endorses a headache 2 days following the event but denies any headache at the time of examination. He endorses a history of hypertension, liver transplant, and receives tube feeds. Patient reports he is not on a blood thinner but takes aspirin. GENERAL: Well-appearing, well-nourished, and in no acute distress. HEAD: Normocephalic, hematoma to right forehead, right cheek hematoma, swelling and bruising around right eye socket CHEST: Clear to auscultation. ?No respiratory distress. HEART: Regular rate and rhythm.? NEURO: ?Alert and oriented x3. Patient screened in triage and initial orders placed.? ?Additional care and disposition to be based upon?diagnostic testing and treatment. <Katalina Scott APRN - Last Filed: 04/09/25 09:36> History of Present Illness HPI Narrative: per HPI <Idalia Pacheco MD - Last Filed: 04/09/25 20:40> Related Data Home medications: Home Medications ?Medication ?Instructions ?Recorded ?Confirmed ?Last Taken ?Type amlodipine 10 mg tablet 10 mg PO DAILY 07/28/19 04/02/25 11/20/24 History carvedilol 25 mg tablet 25 mg PO Q12H 07/28/19 04/02/25 11/20/24 History tacrolimus 1 mg capsule, 1 mg PO Q12H 08/11/19 04/02/25 11/20/24 History immediate-release triamcinolone acetonide 55 mcg 1 spray intranasal DAILY PRN sinus 08/11/19 04/02/25 Unknown History nasal spray aerosol (Nasacort) symptoms loratadine 10 mg tablet (Claritin) 10 mg PO DAILY 04/17/21 04/02/25 11/19/24 History doxazosin 8 mg tablet 8 mg PO DAILY 04/16/24 04/02/25 11/19/24 History ipratropium 0.5 mg-albuterol 3 mg 3 ml inhalation Q6-8H 03/01/25 04/02/25 Unknown History (2.5 mg base)/3 mL nebulization soln <Katalina Scott APRN - Last Filed: 04/09/25 09:36> Allergies/Adverse reactions: Allergies Allergy/AdvReac Type Severity Reaction Status Date / Time Penicillins Allergy Unknown UNKNOWN Verified 04/02/25 14:20 cephalexin AdvReac Unknown GI DISTRESS Verified 04/02/25 14:20 ibuprofen AdvReac Other/avoid Verified 04/02/25 14:20 s <Katalina Scott APRN - Last Filed: 04/09/25 09:36> Review of Systems Review of Systems: All systems reviewed & are unremarkable except as noted in HPI and below <Idalia Pacheco MD - Last Filed: 04/09/25 20:40> [facility] Past Medical History Medical History: Medical History Dysphonia Hypertension Seizures Chronic headaches Diabetes Asthma Allergies Hepatitis C antibody test negative (02/23/12) <Katalina Scott APRN - Last Filed: 04/09/25 09:36> Surgical History Surgical History: Surgical History S/P percutaneous endoscopic gastrostomy (PEG) tube placement H/O inguinal hernia repair H/O kyphoplasty Hx of carpal tunnel repair Bilateral - January and February 2023 Liver transplant recipient (~2017) 11/03/17 <Katalina Scott APRN - Last Filed: 04/09/25 09:36> Family History Family History: Family History Grandparent Diabetes mellitus Acute myocardial infarction Cerebrovascular accident Mother Family history of malignant neoplasm, Onset Age: 41 Father Hypertension Other Family history of alcoholism Family history of blood dyscrasia <Katalina Scott APRN - Last Filed: 04/09/25 09:36> Social History Social History: Social History Smoking packs per day: 2 Smoking cigarettes per day: 40.0 Years smoked: 12 Smoking pack-years: 24.00 Smoking status: Former smoker Tobacco type: cigarettes Smoking end date: 12/15/84 Alcohol intake: never Substance use: never Substance use type: does not use Do You Feel Safe in your Home?: Yes Lack of Transportation: No Lack of Food: Never True Current Housing: I Have Housing Concerned About Future Housing: No Difficulty Paying Gas/Electric Bills: No Difficulty Paying for Meds: No Currently Unemployed: No Education: Associate Degree Difficulty w/ Childcare or Family Care: No Living arrangements: with family Additional living arrangements comments: Spiritual care concerns: No <Katalina Scott APRN - Last Filed: 04/09/25 09:36> Exam Narrative: EXAMINATION OF ORGAN SYSTEMS/BODY AREAS: Constitutional: Vital signs per nursing GENERAL:[No acute distress, non-toxic appearing.] HEAD: For healing bruising to face EYES: EOMI, conjunctiva normal, contusion R eye ENT: R contusion face LUNGS: Nonlabored breathing. HEART: [Regular rate and rhythm] ABD: [Soft], [nontender to palpation] EXT: Normal range of motion SKIN: Bruises to face NEURO: [Alert and oriented x 3. No gross focal sensory or strength deficits.] PSYCH: Normal affect <Idalia Pacheco MD - Last Filed: 04/09/25 20:40> Course Vital Signs Vital signs: Vital Signs Temperature 98.1 F 04/08/25 15:03 Pulse Rate 68 04/08/25 15:03 Respiratory Rate 16 04/08/25 15:03 Blood Pressure 122/75 04/08/25 15:03 Pulse Oximetry 100 04/08/25 15:03 Temperature 98.1 F 04/08/25 15:03 Pulse Rate 68 04/08/25 15:03 Respiratory Rate 16 04/08/25 15:03 Blood Pressure 122/75 04/08/25 15:03 Pulse Oximetry 100 04/08/25 15:03 <Katalniaelise Scott APRN - Last Filed: 04/09/25 09:36> Vital Signs Temperature 98.1 F 04/08/25 15:03 Pulse Rate 68 04/08/25 15:03 Respiratory Rate 16 04/08/25 15:03 Blood Pressure 122/75 04/08/25 15:03 Pulse Oximetry 100 04/08/25 15:03 Temperature 98.1 F 04/08/25 15:03 Pulse Rate 68 04/08/25 15:03 Respiratory Rate 16 04/08/25 15:03 Blood Pressure 122/75 04/08/25 15:03 Pulse Oximetry 100 04/08/25 15:03 <Idalia Pacheco MD - Last Filed: 04/09/25 20:40> MDM - Head Injury MDM Narrative Medical decision making narrative: 69M p/w head injury 1 d ago; he has some bruising on his face. Otherwise very well appearing. CT head/C-spine/face thankfully negative for acute abnormality. Discussed with patient, he is happy to follow-up outpatient as needed with return precautions <Idalia Pacheco MD - Last Filed: 04/09/25 20:40> Discharge Plan Discharge Clinical Impression: Facial injury <Katalina Scott APRN - Last Filed: 04/09/25 09:36> Patient Disposition: Home <Katalina Scott APRN - Last Filed: 04/09/25 09:36> Condition: Stable <Katalina Scott APRN - Last Filed: 04/09/25 09:36> Instructions: Black Eye (ED), Head Injury (ED) <Katalina Scott APRN - Last Filed: 04/09/25 09:36> Additional Instructions: Please follow up with your PCP; you can always return to the ER for any further issues. <Katalina Scott APRN - Last Filed: 04/09/25 09:36> Patient Language: Equ[place]inean <Katalina Scott APRN - Last Filed: 04/09/25 09:36> Prescriptions: No Action amlodipine 10 mg tablet 10 mg PO DAILY Patient Comments: QAM carvedilol 25 mg tablet 25 mg PO Q12H doxazosin 8 mg tablet 8 mg PO DAILY Patient Comments: HS triamcinolone acetonide [Nasacort] 55 mcg aerosol,spray 1 spray NASAL DAILY PRN (Reason: sinus symptoms) tacrolimus 1 mg capsule 1 mg PO Q12H Patient Comments: CURRENTLY TAKING 1MG BID loratadine [Claritin] 10 mg tablet 10 mg PO DAILY Patient Comments: QHS albuterol sulfate [ProAir HFA] 90 mcg/actuation HFA aerosol inhaler 2 puff INHALATION Q4-6H PRN (Reason: shortness of breath or wheezing) Qty: 8.5 5RF ipratropium-albuterol 0.5 mg-3 mg(2.5 mg base)/3 mL solution for nebulization 3 ml inhalation Q6-8H cyclobenzaprine 10 mg tablet 10 mg PO TID PRN (Reason: muscle spasm) Qty: 180 1RF losartan 25 mg tablet See Rx Instructions .ROUTE .COMPLEX Qty: 100 2RF Dose Instruction: TAKE 1 TABLET BY MOUTH DAILY Patient Comments: QAM Rx Instructions: TAKE 1 TABLET BY MOUTH DAILY metformin 500 mg tablet See Rx Instructions .ROUTE .COMPLEX Qty: 400 1RF Dose Instruction: TAKE 2 TABLETS BY MOUTH TWICE DAILY Rx Instructions: TAKE 2 TABLETS BY MOUTH TWICE DAILY <Katalina Scott APRN - Last Filed: 04/09/25 09:36> Follow-up/Referrals: Sharri Argueta DO [Primary Care Provider] - <Katalina Scott APRN - Last Filed: 04/09/25 09:36>
--- OUTSIDE RECORDS SUMMARY | 2025-04-08 17:32 | XMS_ITS | Encounter Summary ---
Author Organization [facility] Address [address] [place] [address] Care Team Providers Care Video Intern Name Role Phone Rod Sanches MD Primary Care Provider [phone] Phylicia Beck RN Unavailable Unavailable Sharri Argueta DO Primary Care Provider [phone] Rod Sanches MD Primary Care Provider [phone] Sharri Argueta DO Primary Care Provider [phone] Qi Story RN Unavailable Unavailable Encounter Details Date Type Department Care Team (Late st Contact Info) Description 05/06/2018 Nutrition [facility] [address] [place] [address]/LOLLY Social History Tobacco Use Types Packs/Day Years Used Date Smoking Tobacco: Former Cigarettes Q uit: 09/11/1983 Smokeless Tobacco: Never Alcohol Use Standard Drinks/Week Comments No 0 (1 standard drink = 0.6 oz pur e alcohol) Sex and Gender Information Value Date Recorded Sex Assigned at Not on file Legal Sex Male 5:15 PM DEPUTY SHERIFF GENERALIST/BAILIFF Gender Identity Not on file Sexual Orientation Straight 07/31/2024 7: 47 PM DEPUTY SHERIFF GENERALIST/BAILIFF documented as of this encounter Progress Notes [...] Saturday- Dinner - 6 fried chicken wings, mauritian fries, HS - 6 cookies Saturday - [...] Description 06/08/2025 1:00 PM CDT Office Visit [facility] - ENT [address] [place] [address] [phone] Jay Jay Messina MD [address] [place] [address] [place] [address] 08/10/2025 12:00 PM DEPUTY SHERIFF GENERALIST/BAILIFF Office Visit [facility] - GI [address] [place] [address] [phone] Ramon Morales MD [address] [place] [address] [place] [address] documented as of this encounter Visit Diagnoses Not on filedocumented in this encounter Care Teams Video Intern Relationship Specialty Start Date End Date Rod Sanches MD [address] [place] [address] PCP - General 06/09/16 01/13/20 Sharri Argueta DO [address] [place] [address] PCP - General 01/14/20 04/06/20 Rod Sanches MD [address] [place] [address] PCP - General 04/07/20 10/22/20 Sharri Argueta DO [address] [place] [address] PCP - General 10/23/20 Phylicia Beck, RN Registered Nurse 12/23/17 10/27/20 Qi Story, VALENTIN Registered Nurse 10/28/20 documented as of this encounter
--- OUTSIDE RECORDS SUMMARY | 2025-04-08 17:32 | XMS_ITS | Clinical Summary ---
Author Organization [facility] Address [facility] [place] [address] Care Team Providers Care Pyrotechnics Press Tender Name Role Phone Rod Sanches MD Primary Care Provider [phone] Social History Tobacco Use Types Packs/Day Years [...] age to complete this topic Care Teams Pyrotechnics Press Tender Relationship Specialty Start Date End Date Rod Sanches MD [address] [place] [address] PCP - General 09/10/15
--- OUTSIDE RECORDS SUMMARY | 2025-04-08 17:32 | XMS_ITS | Clinical Summary ---
Author Organization [facility] Address [address] [place] [address] Care Team Providers Care Varnish Cooker Name Role Phone Sharri Argueta DO Primary Care Provider [phone] Allergies Active Allergy Reactions Criticality Noted Date [...] Packs/Day Years Used Date Smoking Tobacco: Never [facility] Utilities Answer Date Recorded In the past 12 months has th e [employer], gas, oil, or water [employer] threatened to shut off services in your [...] often do you attend chur ch or quaker services? Never 12/10/2024 Do you belong to any clubs o r organizations such as catholic groups, unions, fraternal or athletic groups, or [...] time in the past 12 m [facility], were you homeless or living in a penitentiary (including now)? No 12/10/2024 Personal Safety Answer Date Recorded Have you ever been in or are you currently in a harmful physical or emotional relationship or is someone making you feel afraid or unsafe? Denies 12/09/2024 Sex and Gender Information Value Date Recorded Sex Assigned at Not on file Legal Sex Male 3:57 AM RN STARS Gender Identity Not on file Sexual Orientation [...] exists Fall Risk Assessment 12/12/2025 12/12/2024 Insurance [facility] MEDICARE ADVANTAGE Advance Directives For more information, please contact: [phone] * Full Code (Latest Code Status on File) Date Activated Date Inactivated Comments 12/09/2024 11:34 PM 12/12/2024 7:27 PM * Full Code Date Activated Date Inactivated Comments 12/09/2024 8:20 PM 12/09/2024 11:34 PM Care Teams Varnish Cooker Relationship Specialty Start Date End Date hSarri Argueta DO [facility] [facility] [address] [address] [place] [address] [place] [id number] PCP - General Family Medicine 12/09/24
--- OUTSIDE RECORDS SUMMARY | 2025-04-08 17:32 | XMS_ITS ---
Author Organization [facility] Address [address] [place] [address] Care Team Providers Care Project Management Instructor Name Role Phone RobbyalenaSharri liu DO Primary Care Provider [phone] Qi Story RN Unavailable Unavailable Transplant Episode Liver Recipient [facility] ([place], [place]) - [facility] Organ Received: Liver Transplanted on 11/03/2017 Marked as Active Follow-up on 11/03/2017 Liver CoordinatorQi Story RN Phone: N/A Fax: N/A Email: N/A [place] Organ Diagnosis Organ Primary Contributory Liver Cirrhosis: [...] N/A N/A Ramon Morales MD Referring Physician [phone] N/A Janae Diaz MD Transplant Surgeon [phone] N/A Events Post-Transplant Pre-Transplant Admitted: 11/03/2017 Referred: 05/25/2016 Transplanted: 11/03/2017 Evaluation began: 6 Discharged: 11/14/2017 Center waitlisted: 6
--- OUTSIDE RECORDS SUMMARY | 2025-04-08 17:32 | XMS_ITS | Clinical Summary ---
Author Organization [facility] Address [address] [facility] [place] [address] Phone Care Team Providers Care Electromechanical Equipment Assembler Name Role Phone Unavailable Primary Care Provider [...] on file Legal Sex Male 7:29 AM WIND TURBINE BLADE REPAIR TECHNICIAN Gender Identity Not on file Sexual Orientation [...] 185.4 cm (6' 1) 11/14/2017 8:00 PM WIND TURBINE BLADE REPAIR TECHNICIAN Body Mass Index 32.06 11/14/2017 8:00 PM WIND TURBINE BLADE REPAIR TECHNICIAN Plan of Treatment Health Maintenance Due Date [...] Comments LIPID PANEL Routine 11/15/2017 5:52 AM WIND TURBINE BLADE REPAIR TECHNICIAN HEMOGLOBIN A1C Routine 11/15/2017 5:52 AM WIND TURBINE BLADE REPAIR TECHNICIAN from Last 3 Months or Most Recently Relevant to Health Maintenance Results * HEMOGLOBIN A1C (11/15/2017 5:52 AM WIND TURBINE BLADE REPAIR TECHNICIAN) HEMOGLOBIN A1C 6.0 4.0 - 6.0 % 11/15/2017 11:36 AM [facility] [employer] [facility] EST. AVG GLUCOSE, A1C 126 mg/dL 11/15/2017 11:36 AM [facility] [employer] [facility] Blood Venipuncture / Unknown 11/15/2017 5:52 AM WIND TURBINE BLADE REPAIR TECHNICIAN 11/15/2017 10:35 AM WIND TURBINE BLADE REPAIR TECHNICIAN Zackary Alfonso [facility] CHEMISTRY ORDERABLES F inal Result [facility] [employer] [facility] CLIA# [id number] [address] [place] [address] * (ABNORMAL) LIPID PANEL (11/15/2017 5:52 AM WIND TURBINE BLADE REPAIR TECHNICIAN) CHOLESTEROL 119 <200 mg/dL 11/15/2017 11:33 AM [facility] [employer] [facility] TRIGLYCERIDE 121 <150 mg/dL 11/15/2017 11:33 AM [facility] [employer] [facility] HDL 24(L) 40 - 59 mg/dL 11/15/2017 11:33 AM [facility] [employer] [facility] LDL CALCULATED 71 <100 mg/dL 11/15/2017 11:33 AM [facility] [employer] [facility] NON-HDL CHOLESTEROL 95 <130 mg/dL 11/15/2017 11:33 AM [facility] [employer] [facility] Blood Venipuncture / Unknown 11/15/2017 5:52 AM WIND TURBINE BLADE REPAIR TECHNICIAN 11/15/2017 10:35 AM WIND TURBINE BLADE REPAIR TECHNICIAN Narrative [facility] [employer] [facility] - 11/15/2017 11:33 AM WIND TURBINE BLADE REPAIR TECHNICIAN TOTAL CHOLESTEROL mg/dL Desirable <200 Borderline high [...] ORDERABLES F inal Result [facility]# [id number] [address] [place] [address] from Last 3 Months or Most Recently Relevant to Health Maintenance Insurance Advance Directives For more information, please contact: [phone] * Full Code (Latest Code Status on File) Date Activated Date Inactivated Comments 11/14/2017 12:56 PM 11/21/2017 1:27 PM
--- OUTSIDE RECORDS SUMMARY | 2025-04-08 17:32 | XMS_ITS | Clinical Summary ---
Author Organization [facility] Address [address] [place] [address] Care Team Providers Care Information Lead Name Role Phone Sharri Argueta DO Primary Care Provider [phone] Qi Story RN Unavailable Unavailable Source Comments [facility],non-owned Affiliates and Associated Physician Practices is amultiple site organization consisting of ambulatory clinics and hospital sitesin [place], [place], [place]. This disclosure is being madepursuant to the Care Everywhere program and may not contain all information available regarding this patient. 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 -start TAC oint BID PRN w wet wraps, instructions provided Multiple benign melanocytic nevi of upper extremity, lower extremity, and trunk 11/04/2020 Assessment & Plan (11/04/2020 12:01 PM SENIOR MATERIALS ANALYST): - None atypical or more concerning than others on exam today - Counseled on importance of daily sun protection, and monthly self skin exams - Reviewed ABCDEs of melanoma - Advised sun protective behaviors and regular sun screen use - Annual FBSE Lentigines 11/04/2020 Assessment & Plan (11/04/2020 12:01 PM SENIOR MATERIALS ANALYST): -Benign, reassurance Other specified dermatitis 11/04/2020 Seborrheic keratosis 11/04/2020 Neutropenia 10/28/2020 History of hepatocellular carcinoma 11/20/2018 Long-term use of immunosuppressant medication Benign essential HTN 08/28/2018 IPMN (intraductal papillary mucinous neoplasm) 0 05/23/2018 Fatty pancreas 05/08/2018 Right inguinal hernia 05/08/2018 Overview (05/08/2018): Indirect Diabetes mellitus type 2, uncontrolled 8 Pre-transplant evaluation for liver transplant 0 12/23/2017 Overview (12/23/2017): LISTED Diagnosis: BRADSHAW/HCC Referring Industrial Pipefitter Journeyman: Andrew Alert: Will need renoportal at the [...] It is the impression of this social and political studies professor that Robert [place] has several positive factors for Liver transplant candidacy including knowledge of illness, sufficient insurance coverage, stable financial situation for post transplant needs, and no concerns regarding substance abuse. SW concerns are patient's support system and discharge plan. Plan: general worker to provide supportive services as needed. Patient appears to be a reasonable candidate for transplant from a psychosocial perspective, pending: - Post transplant arrangement forms are needed prior to being listed, with confirmation. Psychiatric Consult Recommended: No Transplant Assistant Plant Manager: MIKY VOERTON RD: 24 Hour Recall/food frequency: eggs, chocolate milk, salad, spaghetti, hamburger, [place] - loaiza seared, mash potatoes, broccoli, corn cauliflower, apples, ham and south korean, lettuce and tomato sandwich, Ramen noodles about [...] Transplant Date: 11/03/2017 Donor: Standard criteria donor [id number] CMV D-/R-, EBV D+/R+ Pre-Transplant Summary: ESLD [...] PCP Adjustments: Readmissions: Biopsies: Explant Liver, explant, umk[place] hepatectomy (A): - Cirrhosis (history of BRADSHAW) - Completely necrotic nodule in right lobe (4.0 cm) - Macroregenerative nodules, multifocal - Focal dysplasia (small and large cell changes) - Hepatocellular iron focally up to 4+ - No viable hepatocellular carcinoma identified Gallbladder, umkumiut hepatectomy (A): - Mild chronic cholecystitis Gallbladder, [...] cirrhosis. The PAS-D stain is negative for dlpqj-1-rrykqdkqhok globules. The iron stain shows granular hepatocellular [...] from the prior study (LR 3). 2. Svogql-bjceo-rabqww venous anastomosis, with unchanged aneurysmal dilatation at [...] liver without washout (LR 3). 2. Patent xhqmlr-bddrb-gjczru venous anastomosis, with unchanged aneurysmal dilatation of [...] recommended. Assessment & Plan (11/04/2020 12:01 PM SENIOR MATERIALS ANALYST): -discussed inc risk NMSC/MM - Reviewed ABCDEs [...] Only [facility] GI [address] [place] [phone] Ramon Morales MD S/P liver transplant (HCC); Benign essential HTN; Long-term use of immunosuppressant medication 02/26/2025 Orders Only [facility] [address] [place] [phone] Ramon Morales MD S/P liver transplant (HCC); Benign essential HTN; Long-term use of immunosuppressant medication 02/02/2025 12:00 PM CDT Office Visit [facility] - [address] [phone] Ramon Morales MD S/P liver transplant (HCC) (Primary Dx); Benign essential HTN; Long-term use of immunosuppressant medication; Oropharyngeal dysphagia; S/P percutaneous endoscopic gastrostomy (PEG) tube placement (HCC) 02/02/2025 Travel from Last 3 Months Immunizations Immunization Administration Dates Next Due Edvert primary monoval ent 12+ yr 0.3mL Purple [...] on file Legal Sex Male 5:15 PM SENIOR MATERIALS ANALYST Gender Identity Not on file Sexual Orientation Straight 07/31/2024 7: 47 PM SENIOR MATERIALS ANALYST Last Filed Vital Signs Vital Sign Reading Time Taken Comments Blood Pressure 114/71 02/02/2025 11:29 AM CDT Pulse 71 02/02/2025 11:29 AM CDT Temperature 36.3 C (97.3 F) 02/02/2025 11:29 AM CDT Respiratory Rate 18 07/21/2024 1:48 PM SENIOR MATERIALS ANALYST Oxygen Saturation 100% 02/02/2025 11:29 AM CDT [...] Office Visit [facility] - ENT [address] [place] [phone] Jay Jay Messina MD [address] [place] [address] 2L [place] [address] 08/10/2025 12:00 PM SENIOR MATERIALS ANALYST Office Visit [facility] - GI [address] [place] [phone] Ramon Morales MD [address] [place] [address] [address] [place] [address] Health Maintenance Due Date Last Done Comments [...] HEPATITIS C ANTIBODY Routine 09/11/2015 10:46 AM SENIOR MATERIALS ANALYST from Last 3 Months or Most Recently [...] mcg/L. REPORT COMMENT: FASTING:YES Test Performed at: [facility] [address] [place] [phone] KAMAR ALEXANDRE MD Blood BLOOD SPECIMEN / Unknown 02/17/2025 8:40 AM CDT 02/17/2025 8:40 AM CDT Ramon Morales MD LAB - THERAPEUTIC DRUG MONITOR ING ORDERABLES Final Result [facility] [address] [place] [address] * (ABNORMAL) CBC WITH DIFFERENTIAL (02/17/2025 8:40 [...] decreased numbers of platelets. Test Performed at: [facility] [address] [place] [address] KAMAR ALEXANDRE MD Blood BLOOD SPECIMEN / Unknown 02/17/2025 8:40 AM CDT 02/17/2025 8:40 AM CDT Ramon Morales MD LAB - HEMATOLOGY ORDERABLES Fi nal Result [facility] [address] [place] [address] * (ABNORMAL) COMPREHENSIVE METABOLIC PANEL (02/17/2025 8:40 AM CDT) Pathologist [facility] Glucose 121(H) 65 - 99 mg/dL [facility] [...] 46 U/L [facility] Comment: Test Performed at: [facility] [address] [place] [address] KAMAR ALEXANDRE MD Blood BLOOD SPECIMEN / Unknown 02/17/2025 8:40 AM CDT 02/17/2025 8:40 AM CDT Ramon Morales MD LAB - CHEMISTRY ORDERABLES Fin al Result [facility] [address] [place] [address] * ENDOSCOPY, COLON, SCREENING (04/04/2020 9:37 AM [...] and oxygen saturations were monitored continuously. The [id number] was introduced through the anus and advanced to the cecum, identified by appendiceal orifice and ileocecal valve. The colonoscopy was performed without difficulty. The patient tolerated the procedure well. The quality of the bowel preparation was evaluated using the BBPS (Jennings Bowel Preparation Scale) with scores of: Right [...] non-shelby portions. Procedure Code(s): --- Professional --- 33318, Colonoscopy, flexible; with removal of tumor(s), polyp(s), or other lesion(s) by snare technique 50911, 59, Colonoscopy, flexible; with biopsy, single or multiple Diagnosis Code(s): --- Professional --- Z12.11, Encounter for screening for malignant neoplasm of colon K63.5, Polyp of colon K62.1, Rectal polyp CPT copyright 2019 [employer]. All rights reserved. The codes documented in this report are preliminary and upon document control coordinator review may be revised to meet current compliance requirements. _ Ramon Morales MD 04/04/2020 10:34:35 AM This report has been signed electronically. Note Initiated On: 04/04/2020 9:37 AM Number of Addenda: 0 [facility] [address] [place] [address] [facility] 04/04/2020 9:37 AM CDT Elda Rashid MD GI PROCEDURE ORDERABLES Edited Result - Final Performing Organization Address [facility] [address]/[facility] Co de Phone Number [facility] * (ABNORMAL) HEMOGLOBIN A1C (03/14/2020 8:46 [...] of diabetes for children. Test Performed at: [facility] [address] [place] [address] OMARI HOFFMANN DO,MPH 03/14/2020 8:46 AM CDT 03/14/2020 8:47 AM CDT Ramon Morales MD LAB - CHEMISTRY ORDERABLES Fin al Result Performing Organization Address [facility] de Phone Number [facility] [address] [place] [address] * HEPATITIS C ANTIBODY (09/11/2015 10:46 AM SENIOR MATERIALS ANALYST) Pathologist [facility] Hepatitis C Antibody Non-react rosendo Non-reac tive [facility] Comment: Hepatitis C Antibody screen indicates no serologic evidence of past or current infection with Hepatitis C Virus. Patients with unexplained liver disease who are immunocompromised or suspected of having acute Hepatitis C infection may benefit from Nucleic Acid Test (ERUM) for Hepatitis C Viral RNA to confirm Hepatitis C status. Blood specimen (specimen) BLOOD SPECIMEN / Unknown 09/11/2015 10:46 AM SENIOR MATERIALS ANALYST 09/11/2015 10:52 AM SENIOR MATERIALS ANALYST Scott Lee MD LAB - CHEMISTRY ORDERABLES F inal Result Performing Organization Address [facility] [address]/[facility] Co de Phone Number [address] [phone] from Last 3 Months or Most Recently Relevant to Health Maintenance Insurance [facility] MANAGED MEDICARE ADV [facility] MANAGED MEDICARE ADV Advance Directives Documents on File Type Date Recorded Patient Bar Captain Expl anation Advance Directives and Livin g Will 07/17/2016 12:00 AM Advance Directives and Livin g Will 09/11/2015 12:00 AM Care Teams Information Lead Relationship Specialty Start Date End Date Sharri Argueta DO [address] [place] [address] PCP - General 10/23/20 Qi Story, RN Registered Nurse 10/28/20
--- OUTSIDE RECORDS SUMMARY | 2025-04-08 17:32 | XMS_ITS ---
Author Organization [facility] Address [address] 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 -start TAC oint BID PRN w wet wraps, instructions provided Multiple benign melanocytic nevi of upper extremity, lower extremity, and trunk 11/04/2020 Assessment & Plan (11/04/2020 12:01 PM OFFICE MANAGER EXECUTIVE ASSISTANT): - None atypical or more concerning than others on exam today - Counseled on importance of daily sun protection, and monthly self skin exams - Reviewed ABCDEs of melanoma - Advised sun protective behaviors and regular sun screen use - Annual FBSE Lentigines 11/04/2020 Assessment & Plan (11/04/2020 12:01 PM OFFICE MANAGER EXECUTIVE ASSISTANT): -Benign, reassurance Other specified dermatitis 11/04/2020 Seborrheic keratosis 11/04/2020 Neutropenia 10/28/2020 History of hepatocellular carcinoma 11/20/2018 Long-term use of immunosuppressant medication Benign essential HTN 08/28/2018 IPMN (intraductal papillary mucinous neoplasm) 0 05/23/2018 Fatty pancreas 05/08/2018 Right inguinal hernia 05/08/2018 Overview (05/08/2018): Indirect Diabetes mellitus type 2, uncontrolled 8 Pre-transplant evaluation for liver transplant 0 12/23/2017 Overview (12/23/2017): LISTED Diagnosis: BRADSHAW/HCC Referring Laboratory Aide: Andrew Alert: Will need renoportal at the [...] is the impression of this social media intern that Robert [place] has several positive factors for Liver transplant candidacy including knowledge of illness, sufficient insurance coverage, stable financial situation for post transplant needs, and no concerns regarding substance abuse. SW concerns are patient's support system and discharge plan. Plan: central office worker to provide supportive services as needed. Patient appears to be a reasonable candidate for transplant from a psychosocial perspective, pending: - Post transplant arrangement forms are needed prior to being listed, with confirmation. Psychiatric Consult Recommended: No Transplant Drivematic Machine Operator: MIKY OVERTON RD: 24 Hour Recall/food frequency: [...] Transplant Date: 11/03/2017 Donor: Standard criteria donor [id number] CMV D-/R-, EBV D+/R+ Pre-Transplant Summary: ESLD [...] PCP Adjustments: Readmissions: Biopsies: Explant Liver, explant, chalky[place] hepatectomy (A): - Cirrhosis (history of BRADSHAW) - Completely necrotic nodule in right lobe (4.0 cm) - Macroregenerative nodules, multifocal - Focal dysplasia (small and large cell changes) - Hepatocellular iron focally up to 4+ - No viable hepatocellular carcinoma identified Gallbladder, chalkyitsik hepatectomy (A): - Mild chronic cholecystitis Gallbladder, [...] cirrhosis. The PAS-D stain is negative for ewhwr-9-qkxufwjcyxj globules. The iron stain shows granular hepatocellular [...] from the prior study (LR 3). 2. Fbixal-cjknr-ytgwwf venous anastomosis, with unchanged aneurysmal dilatation at [...] liver without washout (LR 3). 2. Patent rzcgpb-kkdil-uckqya venous anastomosis, with unchanged aneurysmal dilatation of [...] recommended. Assessment & Plan (11/04/2020 12:01 PM OFFICE MANAGER EXECUTIVE ASSISTANT): -discussed inc risk NMSC/MM - Reviewed ABCDEs [...]
--- OUTSIDE RECORDS SUMMARY | 2025-04-08 17:32 | XMS_ITS | Referral Summary ---
Author Organization [facility] Address [address] [place] [address] Care Team Providers Care Administration Assistant Name Role Phone Sharri Argueta DO Primary Care Provider [phone] Allergies Active Allergy Reactions Criticality Noted Date [...] Packs/Day Years Used Date Smoking Tobacco: Never [facility] Utilities Answer Date Recorded In the past 12 months has th e [employer], gas, oil, or water [employer] threatened to shut off services in your [...] often do you attend chur ch or mandaeism services? Never 12/10/2024 Do you belong to any clubs o r organizations such as sabianism groups, unions, fraternal or athletic groups, or [...] any time in the past 12 m [facility], were you homeless or living in a residential (including now)? No 12/10/2024 Personal Safety Answer Date Recorded Have you ever been in or are you currently in a harmful physical or emotional relationship or is someone making you feel afraid or unsafe? Denies 12/09/2024 Sex and Gender Information Value Date Recorded Sex Assigned at Not on file Legal Sex Male 3:57 AM STRATEGY EXECUTION CONSULTANT Gender Identity Not on file Sexual Orientation [...] Plan of Treatment Not on file Insurance [facility] [place] [address] Advance Directives For more information, please contact: [phone] * Full Code (Latest Code Status on File) Date Activated Date Inactivated Comments 12/09/2024 11:34 PM 12/12/2024 7:27 PM * Full Code Date Activated Date Inactivated Comments 12/09/2024 8:20 PM 12/09/2024 11:34 PM Care Teams Administration Assistant Relationship Specialty Start Date End Date Sharri Argueta DO [facility] [address] [address] PCP - General Family Medicine 12/09/24
== END 2025-04-08 17:48 | disposition home or self-care (01) ==
LOC: ANHED 17:30
PROVIDERS: Emergency Provider Emergency Medicine; PCP Family Medicine
DX: S00.83XA Contusion of other part of head, initial encounter (principal); S00.11XA Contusion of right eyelid and periocular area, initial encounter; I10 Essential (primary) hypertension; E11.9 Type 2 diabetes mellitus without complications; J45.909 Unspecified asthma, uncomplicated; Z94.4 Liver transplant status; Z93.1 Gastrostomy status; Z87.891 Personal history of nicotine dependence; Z79.899 Other long term (current) drug therapy; Z79.84 Long term (current) use of oral hypoglycemic drugs; Z79.82 Long term (current) use of aspirin; W18.09XA Striking against other object with subsequent fall, initial encounter
CPT/HCPCS: 70450; 70486; 72125; 99284

== ENCOUNTER 2025-04-11 12:28 | Outpatient (CLI) | payer MEDICARE, SELFPAY ==
--- NOTE | ~2025-04-11 | CT_ITS ---
EXAMINATION: CT cervical spine wo con DATE: 04/11/2025 12:49 INDICATION: Disease of spinal cord TECHNIQUE: Computed tomography (CT) of the cervical spine was performed without intravenous contrast. Automated exposure control and iterative reconstruction technique were employed. The dose-length pro duct was 378.28 mGy-cm. COMPARISON: None FINDINGS: Bone alignment is normal. Instrumented C3-C5 anterior spinal fusion including discectomies with bone graft cages and incorporated bone graft at both disc spaces and with anterior plate and screw fixatio n. Unfused vertebral body heights are normal. No fracture. Severe disc height loss with degenerative endplate changes at C6-C7 and C7-T1. Mild disc height loss at C2-C3. Small amount of atherosclerotic calcifications at the bilateral carotid bulbs. Cervical soft tissues are unremarkable. Visualized upp er lungs are clear. The following disc levels are specifically discussed: C2-C3: Disc is mildly bulging. There is mild right and severe left uncovertebral joint osteoarthritis . There is mild bilateral facet joint osteoarthritis. There is moderate to severe left neural foramin al stenosis. There is mild central canal stenosis. C3-C4: Anterior spinal fusion. Small amount of ossification along the posterior longitudinal ligament cephalad and caudal to the level of the endplates. There is mild bilateral facet joint osteoarthriti s. There is mild bilateral neural foraminal stenosis. There is mild central canal stenosis. C4-C5: Anterior spinal fusion. Small amount of ossification along the posterior longitudinal ligament cephalad and caudal to the level of the endplates. There is moderate bilateral facet joint osteoarth ritis. There is mild bilateral neural foraminal stenosis. There is mild central canal stenosis. C5-C6: Disc is bulging and there is additional ossification of the posterior longitudinal ligament ce phalad and caudal to the level of the endplates. There is mild bilateral uncovertebral joint osteoart hritis. There is no facet joint osteoarthritis. There is mild left and moderate right neural foramina l stenosis. There is mild central canal stenosis. C6-C7: Posterior disc osteophyte complex. There is severe bilateral uncovertebral joint osteoarthriti s. There is mild bilateral facet joint osteoarthritis. There is mild left and moderate right neural f oraminal stenosis. There is mild to moderate central canal stenosis. C7-T1: Posterior disc osteophyte complex. There is severe bilateral uncovertebral joint osteoarthriti s. There is moderate left and severe right facet joint osteoarthritis. There is mild left and moderat e right neural foraminal stenosis. There is mild central canal stenosis. IMPRESSION: 1. Severe cervical spondylosis with instrumented C3-C5 anterior spinal fusion. Reviewed, dictated and finalized at location A.
--- OUTSIDE RECORDS SUMMARY | 2025-04-11 12:31 | XMS_ITS ---
Author Organization [facility] Address [address] 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 -start TAC oint BID PRN w wet wraps, instructions provided Multiple benign melanocytic nevi of upper extremity, lower extremity, and trunk 11/04/2020 Assessment & Plan (11/04/2020 12:01 PM MANAGER CLIENT): - None atypical or more concerning than others on exam today - Counseled on importance of daily sun protection, and monthly self skin exams - Reviewed ABCDEs of melanoma - Advised sun protective behaviors and regular sun screen use - Annual FBSE Lentigines 11/04/2020 Assessment & Plan (11/04/2020 12:01 PM MANAGER CLIENT): -Benign, reassurance Other specified dermatitis 11/04/2020 Seborrheic keratosis 11/04/2020 Neutropenia 10/28/2020 History of hepatocellular carcinoma 11/20/2018 Long-term use of immunosuppressant medication Benign essential HTN 08/28/2018 IPMN (intraductal papillary mucinous neoplasm) 0 05/23/2018 Fatty pancreas 05/08/2018 Right inguinal hernia 05/08/2018 Overview (05/08/2018): Indirect Diabetes mellitus type 2, uncontrolled 8 Pre-transplant evaluation for liver transplant 0 12/23/2017 Overview (12/23/2017): LISTED Diagnosis: BRADSHAW/HCC Referring Programming Internship: Andrew Alert: Will need renoportal at the [...] is the impression of this social insurance analyst that Robert Harrell has several positive factors for Liver transplant candidacy including knowledge of illness, sufficient insurance coverage, stable financial situation for post transplant needs, and no concerns regarding substance abuse. SW concerns are patient's support system and discharge plan. Plan: garment worker to provide supportive services as needed. Patient appears to be a reasonable candidate for transplant from a psychosocial perspective, pending: - Post transplant arrangement forms are needed prior to being listed, with confirmation. Psychiatric Consult Recommended: No Transplant Safety Equipment Testing Specialist: MIKY OVERTON RD: 24 Hour Recall/food frequency: eggs, chocolate milk, salad, spaghetti, hamburger, [place] - loaiza seared, mash potatoes, broccoli, corn cauliflower, apples, ham and guamanian, lettuce and tomato sandwich, Ramen noodles about [...] Transplant Date: 11/03/2017 Donor: Standard criteria donor [id number] CMV D-/R-, EBV D+/R+ Pre-Transplant Summary: ESLD [...] PCP Adjustments: Readmissions: Biopsies: Explant Liver, explant, [place]is hepatectomy (A): - Cirrhosis (history of BRADSHAW) - Completely necrotic nodule in right lobe (4.0 cm) - Macroregenerative nodules, multifocal - Focal dysplasia (small and large cell changes) - Hepatocellular iron focally up to 4+ - No viable hepatocellular carcinoma identified Gallbladder, chehalis hepatectomy (A): - Mild chronic cholecystitis Gallbladder, [...] cirrhosis. The PAS-D stain is negative for ijwkd-8-rgmgxglrzkl globules. The iron stain shows granular hepatocellular [...] from the prior study (LR 3). 2. Anumjv-iejng-kfktbt venous anastomosis, with unchanged aneurysmal dilatation at [...] liver without washout (LR 3). 2. Patent upsnhw-grdvq-evomyh venous anastomosis, with unchanged aneurysmal dilatation of [...] recommended. Assessment & Plan (11/04/2020 12:01 PM MANAGER CLIENT): -discussed inc risk NMSC/MM - Reviewed ABCDEs [...]
--- OUTSIDE RECORDS SUMMARY | 2025-04-11 12:31 | XMS_ITS | Clinical Summary ---
[facility] Organization [facility] Address [address] [place] [address] Phone Care Team Providers Care Massotherapist Name Role Phone Unavailable Primary Care Provider [...] on file Legal Sex Male 7:29 AM RIB BENDER Gender Identity Not on file Sexual Orientation [...] 185.4 cm (6' 1) 11/14/2017 8:00 PM RIB BENDER Body Mass Index 32.06 11/14/2017 8:00 PM RIB BENDER Plan of Treatment Health Maintenance Due Date [...] Comments LIPID PANEL Routine 11/15/2017 5:52 AM RIB BENDER HEMOGLOBIN A1C Routine 11/15/2017 5:52 AM RIB BENDER from Last 3 Months or Most Recently Relevant to Health Maintenance Results * HEMOGLOBIN A1C (11/15/2017 5:52 AM RIB BENDER) HEMOGLOBIN A1C 6.0 4.0 - 6.0 % 11/15/2017 11:36 AM [facility] [employer] [facility] EST. AVG GLUCOSE, A1C 126 mg/dL 11/15/2017 11:36 AM [facility] [employer] [facility] Blood Venipuncture / Unknown 11/15/2017 5:52 AM RIB BENDER 11/15/2017 10:35 AM RIB BENDER Zackary Alfonso [facility] CHEMISTRY ORDERABLES F inal Result [facility] [employer] [facility] CLIA# [id number] [address] [place] [address] * (ABNORMAL) LIPID PANEL (11/15/2017 5:52 AM RIB BENDER) CHOLESTEROL 119 <200 mg/dL 11/15/2017 11:33 AM [facility] [employer] [facility] TRIGLYCERIDE 121 <150 mg/dL 11/15/2017 11:33 AM [facility] [employer] [facility] HDL 24(L) 40 - 59 mg/dL 11/15/2017 11:33 AM [facility] [employer] [facility] LDL CALCULATED 71 <100 mg/dL 11/15/2017 11:33 AM [facility] [employer] [facility] NON-HDL CHOLESTEROL 95 <130 mg/dL 11/15/2017 11:33 AM [facility] [employer] [facility] Blood Venipuncture / Unknown 11/15/2017 5:52 AM RIB BENDER 11/15/2017 10:35 AM RIB BENDER Narrative [facility] [employer] [facility] - 11/15/2017 11:33 AM RIB BENDER TOTAL CHOLESTEROL mg/dL Desirable <200 Borderline high [...] ORDERABLES F inal Result [facility]# [id number] [address] [address] from Last 3 Months or Most Recently Relevant to Health Maintenance Insurance Advance Directives For more information, please contact: [phone] * Full Code (Latest Code Status on File) Date Activated Date Inactivated Comments 11/14/2017 12:56 PM 11/21/2017 1:27 PM
--- OUTSIDE RECORDS SUMMARY | 2025-04-11 12:31 | XMS_ITS ---
Author Organization [facility] Address [address] [place] [address] Care Team Providers Care Top Spotter Name Role Phone RobbyalenaSharri liu DO Primary Care Provider [phone] Qi Story RN Unavailable Unavailable Transplant Episode Liver Recipient [facility] ([place], [place]) - [facility] Organ Received: Liver Transplanted on 11/03/2017 Marked as Active Follow-up on 11/03/2017 Liver CoordinatorQi Story RN Phone: N/A Fax: N/A Email: N/A [place] Organ Diagnosis Organ Primary Contributory Liver Cirrhosis: [...] N/A N/A Ramon Morales MD Referring Physician [phone] N/A Janae Diaz MD Transplant Surgeon [phone] N/A Events Post-Transplant Pre-Transplant Admitted: 11/03/2017 Referred: 05/25/2016 Transplanted: 11/03/2017 Evaluation began: 6 Discharged: 11/14/2017 Center waitlisted: 6
--- OUTSIDE RECORDS SUMMARY | 2025-04-11 12:31 | XMS_ITS | Clinical Summary ---
Author Organization [facility] Address [address] [place] [address] Care Team Providers Care Event Sales Representative Name Role Phone Sharri Argueta DO Primary Care Provider [phone] Allergies Active Allergy Reactions Criticality Noted Date [...] Packs/Day Years Used Date Smoking Tobacco: Never [facility] Utilities Answer Date Recorded In the past 12 months has th e [employer], gas, oil, or water [employer] threatened to shut off services in your [...] often do you attend chur ch or oriental orthodox services? Never 12/10/2024 Do you belong to any clubs o r organizations such as judaism groups, unions, fraternal or athletic groups, or [...] time in the past 12 m [facility], were you homeless or living in a senior living (including now)? No 12/10/2024 Personal Safety Answer Date Recorded Have you ever been in or are you currently in a harmful physical or emotional relationship or is someone making you feel afraid or unsafe? Denies 12/09/2024 Sex and Gender Information Value Date Recorded Sex Assigned at Not on file Legal Sex Male 3:57 AM MANAGER ENDOSCOPY Gender Identity Not on file Sexual Orientation [...] exists Fall Risk Assessment 12/12/2025 12/12/2024 Insurance [facility] MEDICARE ADVANTAGE [facility] Address: [address] [address] Advance Directives For more information, please contact: [phone] * Full Code (Latest Code Status on File) Date Activated Date Inactivated Comments 12/09/2024 11:34 PM 12/12/2024 7:27 PM * Full Code Date Activated Date Inactivated Comments 12/09/2024 8:20 PM 12/09/2024 11:34 PM Care Teams Event Sales Representative Relationship Specialty Start Date End Date Sharri Argueta DO [facility] [facility] [address] [place] [address] [place] [address] PCP - General Family Medicine 12/09/24
--- OUTSIDE RECORDS SUMMARY | 2025-04-11 12:31 | XMS_ITS | Encounter Summary ---
Author Organization [facility] Address [address] [place] [address] Care Team Providers Care Tie Binder Name Role Phone Rod Sanches MD Primary Care Provider [phone] Phylicia Beck RN Unavailable Unavailable Sharri Argueta DO Primary Care Provider [phone] Rod Sanches MD Primary Care Provider [phone] Sharri Argueta DO Primary Care Provider [phone] Qi Story RN Unavailable Unavailable Encounter Details Date Type Department Care Team (Late st Contact Info) Description 05/06/2018 Nutrition [facility] [address] [place] [address]/LOLLY Social History Tobacco Use Types Packs/Day Years Used Date Smoking Tobacco: Former Cigarettes Q uit: 09/11/1983 Smokeless Tobacco: Never Alcohol Use Standard Drinks/Week Comments No 0 (1 standard drink = 0.6 oz pur e alcohol) Sex and Gender Information Value Date Recorded Sex Assigned at Not on file Legal Sex Male 5:15 PM BURSAR Gender Identity Not on file Sexual Orientation Straight 07/31/2024 7: 47 PM BURSAR documented as of this encounter Progress Notes [...] Description 06/08/2025 1:00 PM CDT Office Visit [facility] - ENT [address] [place] [address] [phone] Jay Jay Messina MD [address] [place] [address] [place] [address] 08/10/2025 12:00 PM BURSAR Office Visit [facility] - GI [address] [place] [address] [phone] Ramon Morales MD [address] [place] [address] [place] [address] documented as of this encounter Visit Diagnoses Not on filedocumented in this encounter Care Teams Tie Binder Relationship Specialty Start Date End Date Rod Sanches MD [address] [place] [address] PCP - General 06/09/16 01/13/20 Sharri Argueta DO [address] [place] [address] PCP - General 01/14/20 04/06/20 Rod Sanches MD [address] [place] [address] PCP - General 04/07/20 10/22/20 Sharri Argueta DO [address] [place] [address] PCP - General 10/23/20 Phylicia Beck, RN Registered Nurse 12/23/17 10/27/20 Qi Story, VALENTIN Registered Nurse 10/28/20 documented as of this encounter
--- OUTSIDE RECORDS SUMMARY | 2025-04-11 12:31 | XMS_ITS | Clinical Summary ---
Author Organization [facility] Address [facility] [place] [address] Care Team Providers Care Home Therapy Teacher Name Role Phone Rod Sanches MD Primary Care Provider [phone] Social History Tobacco Use Types Packs/Day Years [...] age to complete this topic Care Teams Home Therapy Teacher Relationship Specialty Start Date End Date Rod Sanches MD [address] [place] [place] [address] PCP - General 09/10/15
--- OUTSIDE RECORDS SUMMARY | 2025-04-11 12:31 | XMS_ITS | Referral Summary ---
Author Organization [facility] Address [address] [place] [address] Care Team Providers Care Mobile Solutions Architect Name Role Phone Sharri Argueta DO Primary Care Provider [phone] Allergies Active Allergy Reactions Criticality Noted Date [...] Packs/Day Years Used Date Smoking Tobacco: Never [facility] Utilities Answer Date Recorded In the past 12 months has th e [employer], gas, oil, or water [employer] threatened to shut off services in your [...] often do you attend chur ch or scientologist services? Never 12/10/2024 Do you belong to any clubs o r organizations such as confucianism groups, unions, fraternal or athletic groups, or [...] any time in the past 12 m [facility], were you homeless or living in a half-way (including now)? No 12/10/2024 Personal Safety Answer Date Recorded Have you ever been in or are you currently in a harmful physical or emotional relationship or is someone making you feel afraid or unsafe? Denies 12/09/2024 Sex and Gender Information Value Date Recorded Sex Assigned at Not on file Legal Sex Male 3:57 AM FURNITURE MOVER Gender Identity Not on file Sexual Orientation [...] Plan of Treatment Not on file Insurance [facility] MEDICARE ADVANTAGE [facility] Address: [facility] [address] [place] [address] Advance Directives For more information, please contact: [phone] * Full Code (Latest Code Status on File) Date Activated Date Inactivated Comments 12/09/2024 11:34 PM 12/12/2024 7:27 PM * Full Code Date Activated Date Inactivated Comments 12/09/2024 8:20 PM 12/09/2024 11:34 PM Care Teams Mobile Solutions Architect Relationship Specialty Start Date End Date Sharri Argueta DO [facility] [address] [address] PCP - General Family Medicine 12/09/24
--- OUTSIDE RECORDS SUMMARY | 2025-04-11 12:31 | XMS_ITS | Clinical Summary ---
Author Organization [facility] Address [address] [place] [address] Care Team Providers Care Principal Architectural Firm Name Role Phone Sharri Argueta DO Primary Care Provider [phone] Qi Story RN Unavailable Unavailable Source Comments [facility],non-owned Affiliates and Associated Physician Practices is amultiple site organization consisting of ambulatory clinics and hospital sitesin [place], [place], [place] and [place]. This disclosure is being madepursuant to the Care Everywhere program and may not contain all information available regarding this patient. 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 -start TAC oint BID PRN w wet wraps, instructions provided Multiple benign melanocytic nevi of upper extremity, lower extremity, and trunk 11/04/2020 Assessment & Plan (11/04/2020 12:01 PM WATERPROOF MATERIAL FOLDER): - None atypical or more concerning than others on exam today - Counseled on importance of daily sun protection, and monthly self skin exams - Reviewed ABCDEs of melanoma - Advised sun protective behaviors and regular sun screen use - Annual FBSE Lentigines 11/04/2020 Assessment & Plan (11/04/2020 12:01 PM WATERPROOF MATERIAL FOLDER): -Benign, reassurance Other specified dermatitis 11/04/2020 Seborrheic keratosis 11/04/2020 Neutropenia 10/28/2020 History of hepatocellular carcinoma 11/20/2018 Long-term use of immunosuppressant medication Benign essential HTN 08/28/2018 IPMN (intraductal papillary mucinous neoplasm) 0 05/23/2018 Fatty pancreas 05/08/2018 Right inguinal hernia 05/08/2018 Overview (05/08/2018): Indirect Diabetes mellitus type 2, uncontrolled 8 Pre-transplant evaluation for liver transplant 0 12/23/2017 Overview (12/23/2017): LISTED Diagnosis: BRADSHAW/HCC Referring 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 SW concerns are patient's support system and discharge plan. Plan: licensed clinical social worker to provide supportive services as needed. Patient appears to be a reasonable candidate for transplant from a psychosocial perspective, pending: - Post transplant arrangement forms are needed prior to being listed, with confirmation. Psychiatric Consult Recommended: No Transplant Boat Dock Operator: MIKY OVERTON RD: 24 Hour Recall/food frequency: eggs, chocolate milk, salad, spaghetti, hamburger, [place] - loaiza seared, mash potatoes, broccoli, corn cauliflower, apples, ham and greek, lettuce and tomato sandwich, Ramen noodles about [...] Transplant Date: 11/03/2017 Donor: Standard criteria donor [id number] CMV D-/R-, EBV D+/R+ Pre-Transplant Summary: ESLD [...] PCP Adjustments: Readmissions: Biopsies: Explant Liver, explant, [place] hepatectomy (A): - Cirrhosis (history of BRADSHAW) - Completely necrotic nodule in right lobe (4.0 cm) - Macroregenerative nodules, multifocal - Focal dysplasia (small and large cell changes) - Hepatocellular iron focally up to 4+ - No viable hepatocellular carcinoma identified Gallbladder, [place] hepatectomy (A): - Mild chronic cholecystitis Gallbladder, [...] cirrhosis. The PAS-D stain is negative for kiszz-1-fsphtcupgot globules. The iron stain shows granular hepatocellular [...] from the prior study (LR 3). 2. Zzkruk-exkqs-qyfosb venous anastomosis, with unchanged aneurysmal dilatation at [...] liver without washout (LR 3). 2. Patent smkrhs-hmvre-fdbssi venous anastomosis, with unchanged aneurysmal dilatation of [...] recommended. Assessment & Plan (11/04/2020 12:01 PM WATERPROOF MATERIAL FOLDER): -discussed inc risk NMSC/MM - Reviewed ABCDEs [...] Only [facility] GI [address] [place] [phone] Ramon Morales MD S/P liver transplant (HCC); Benign essential HTN; Long-term use of immunosuppressant medication 02/26/2025 Orders Only [facility] [address] [place] [phone] Ramon Morales MD S/P liver transplant (HCC); Benign essential HTN; Long-term use of immunosuppressant medication 02/02/2025 12:00 PM CDT Office Visit [facility] - [address] [phone] Ramon Morales MD S/P liver transplant (HCC) (Primary Dx); Benign essential HTN; Long-term use of immunosuppressant medication; Oropharyngeal dysphagia; S/P percutaneous endoscopic gastrostomy (PEG) tube placement (HCC) 02/02/2025 Travel from Last 3 Months Immunizations Immunization Administration Dates Next Due [facility] primary monoval ent 12+ yr 0.3mL Purple [...] on file Legal Sex Male 5:15 PM WATERPROOF MATERIAL FOLDER Gender Identity Not on file Sexual Orientation Straight 07/31/2024 7: 47 PM WATERPROOF MATERIAL FOLDER Last Filed Vital Signs Vital Sign Reading Time Taken Comments Blood Pressure 114/71 02/02/2025 11:29 AM CDT Pulse 71 02/02/2025 11:29 AM CDT Temperature 36.3 C (97.3 F) 02/02/2025 11:29 AM CDT Respiratory Rate 18 07/21/2024 1:48 PM WATERPROOF MATERIAL FOLDER Oxygen Saturation 100% 02/02/2025 11:29 AM CDT [...] Office Visit [facility] - ENT [address] [place] [phone] Jay Jay Messina MD [address] [place] [address] 2L [place] [address] 08/10/2025 12:00 PM WATERPROOF MATERIAL FOLDER Office Visit [facility] - GI [address] [place] [phone] Ramon Morales MD [address] [place] [address] 2L DIV [place] [address] Health Maintenance Due Date Last Done Comments [...] HEPATITIS C ANTIBODY Routine 09/11/2015 10:46 AM WATERPROOF MATERIAL FOLDER from Last 3 Months or Most Recently [...] mcg/L. REPORT COMMENT: FASTING:YES Test Performed at: [facility] [address] [place] [phone] KAMAR ALEXANDRE MD Blood BLOOD SPECIMEN / Unknown 02/17/2025 8:40 AM CDT 02/17/2025 8:40 AM CDT Ramon Morales MD LAB - THERAPEUTIC DRUG MONITOR ING ORDERABLES Final Result [facility] [address] [place] [address] * (ABNORMAL) CBC WITH DIFFERENTIAL (02/17/2025 8:40 [...] decreased numbers of platelets. Test Performed at: [facility] [address] [place] [address] KAMAR ALEXANDRE MD Blood BLOOD SPECIMEN / Unknown 02/17/2025 8:40 AM CDT 02/17/2025 8:40 AM CDT Ramon Morales MD LAB - HEMATOLOGY ORDERABLES Fi nal Result [facility] [address] [place] [address] * (ABNORMAL) COMPREHENSIVE METABOLIC PANEL (02/17/2025 8:40 AM CDT) Pathologist [facility] Glucose 121(H) 65 - 99 mg/dL [facility] [...] 46 U/L [facility] Comment: Test Performed at: [facility] [address] [place] [id number] KAMAR ALEXANDRE MD Blood BLOOD SPECIMEN / Unknown 02/17/2025 8:40 AM CDT 02/17/2025 8:40 AM CDT Ramon Morales MD LAB - CHEMISTRY ORDERABLES Fin al Result [facility] [address] [place] [address] * ENDOSCOPY, COLON, SCREENING (04/04/2020 9:37 AM [...] and oxygen saturations were monitored continuously. The [id number] was introduced through the anus and advanced to the cecum, identified by appendiceal orifice and ileocecal valve. The colonoscopy was performed without difficulty. The patient tolerated the procedure well. The quality of the bowel preparation was evaluated using the BBPS ([place] Bowel Preparation Scale) with scores of: Right [...] non-shelby portions. Procedure Code(s): --- Professional --- 39165, Colonoscopy, flexible; with removal of tumor(s), polyp(s), or other lesion(s) by snare technique 53318, 59, Colonoscopy, flexible; with biopsy, single or multiple Diagnosis Code(s): --- Professional --- Z12.11, Encounter for screening for malignant neoplasm of colon K63.5, Polyp of colon K62.1, Rectal polyp CPT copyright 2019 [employer]. All rights reserved. The codes documented in this report are preliminary and upon home health scheduler review may be revised to meet current compliance requirements. _ Ramon Morales MD 04/04/2020 10:34:35 AM This report has been signed electronically. Note Initiated On: 04/04/2020 9:37 AM Number of Addenda: 0 [facility] [address] [place] [address] [facility] 04/04/2020 9:37 AM CDT Elda Rashid MD GI PROCEDURE ORDERABLES Edited Result - Final Performing Organization Address [facility] Co de Phone Number [facility] * (ABNORMAL) HEMOGLOBIN A1C [...] of diabetes for children. Test Performed at: [facility] [address] [place] [address] OMARI HOFFMANN DO,MPH 03/14/2020 8:46 AM CDT 03/14/2020 8:47 AM CDT Ramon Morales MD LAB - CHEMISTRY ORDERABLES Fin al Result Performing Organization Address [facility] de Phone Number [facility] [address] [place] [address] * HEPATITIS C ANTIBODY (09/11/2015 10:46 AM WATERPROOF MATERIAL FOLDER) Pathologist [facility] Hepatitis C Antibody Non-react rosendo Non-reac tive [facility] Comment: Hepatitis C Antibody screen indicates no serologic evidence of past or current infection with Hepatitis C Virus. Patients with unexplained liver disease who are immunocompromised or suspected of having acute Hepatitis C infection may benefit from Nucleic Acid Test (ERUM) for Hepatitis C Viral RNA to confirm Hepatitis C status. Blood specimen (specimen) BLOOD SPECIMEN / Unknown 09/11/2015 10:46 AM WATERPROOF MATERIAL FOLDER 09/11/2015 10:52 AM WATERPROOF MATERIAL FOLDER Scott Lee MD LAB - CHEMISTRY ORDERABLES F inal Result Performing Organization Address [facility] Co de Phone Number [address] [phone] from Last 3 Months or Most Recently Relevant to Health Maintenance Insurance [facility] MANAGED MEDICARE ADV [facility] MANAGED MEDICARE ADV Advance Directives Documents on File Type Date Recorded Patient Gang Bore Operator Expl anation Advance Directives and Livin g Will 07/17/2016 12:00 AM Advance Directives and Livin g Will 09/11/2015 12:00 AM Care Teams Principal Architectural Firm Relationship Specialty Start Date End Date Sharri Argueta DO [address] [place] [address] PCP - General 10/23/20 Qi Story, RN Registered Nurse 10/28/20
== END 2025-04-11 12:29 | disposition home or self-care (01) ==
PROVIDERS: PCP Family Medicine; Visit Provider Neurological Surgery
DX: M43.02 Spondylolysis, cervical region (principal); Z98.1 Arthrodesis status
CPT/HCPCS: 72125

== ENCOUNTER 2025-06-28 09:39 | Outpatient (CLI) | payer MEDICARE, SELFPAY ==
[2025-06-28 11:13] LABS: Add Urine Microscopic? NO; Appearance Urine Clear (Clear); Glucose Urine UA Negative (Negative); Leukocyte Esterase Ur Negative LEU/UL (Negative); Nitrate Urine Negative (Negative); Specific Grav Ur 1.010 (1.001-1.035)
[2025-06-28 11:14] LABS: Hematocrit 39.8 % (42.0-52.0); Hemoglobin 13.4 g/dL (14.0-18.0); Immature Platelet Fraction Pct 5.6 % (0.9-11.2); Mean Corpuscular HGB Conc 33.7 g/dl (32-36); Mean Corpuscular Hemoglobin 30.3 pg (26-34); Mean Corpuscular Volume 90.0 fl (80-100); Platelet Count Result 87 k/mm3 (150-375); Red Blood Count 4.42 M/mm3 (4.6-6.20); White Blood Count 4.6 K/mm3 (4.5-10.0)
[2025-06-28 11:22] LABS: Hemoglobin A1C 5.0 % (<5.7)
[2025-06-28 11:23] LABS: INR 1.1; Prothrombin Time 14.5 Seconds (11.1-14.7)
[2025-06-28 11:24] LABS: Partial Thromboplastin Time 34.9 Seconds (22.3-36.8)
[2025-06-28 11:32] LABS: Anion Gap 7 mmol/L (4-12); Blood Urea Nitrogen 19 mg/dL (9-20); Calcium 9.4 mg/dL (8.4-10.2); Carbon Dioxide 31 mmol/L (22-30); Chloride 95 mmol/L (98-107); Estimated Glomerular Filt Rate > 60; Glucose 119 mg/dL (65-110); Potassium 4.6 mmol/L (3.4-5.0); Sodium 133 mmol/L (137-145)
== END 2025-06-28 09:40 | disposition home or self-care (01) ==
PROVIDERS: PCP Family Medicine; Visit Provider Neurological Surgery
DX: G95.9 Disease of spinal cord, unspecified (principal); M47.812 Spondylosis without myelopathy or radiculopathy, cervical region; Z01.818 Encounter for other preprocedural examination
CPT/HCPCS: 36415; 80048; 81003; 83036; 85027; 85055; 85610; 85730

== ENCOUNTER 2025-07-16 00:22 | Day surgery (SDC) | payer MEDICARE, SELFPAY ==
--- NOTE | 2025-06-28 09:46 | PC.NURSE ---
[facility] has started construction of its new state of the art ER which will open Spring 2026. With this, we anticipate parking may be a challenge for some our surgical patients and families. Parking spaces are limited but are available for all Surgical, obstetrics, and ER patients sharing this lot. If you arrive and find you are having a hard time finding a parking space, please note that we understand the challenges, please drive around the hospital and park near Hospital Entrance 1. When you enter this entrance, you can ask a volunteer to direct or take you back to the surgical waiting area to check in. We appreciate everyone?s understanding of these expected challenges while we build for your future. Report to the Outpatient Waiting Room, entrance under the green pavilion located off [address], at time __7:30 AM on date _07/16/25 . Planned Procedure Time: _9:30 AM .? Time changes happen often and if your time is changed the preop area will call you the afternoon before. - You and your visitor will be asked to self-screen and do not enter if you have any COVID symptoms. Please call surgeon if you need to reschedule. - A mask is optional within the hospital at this time. Patients may have clear liquids (water, carbonated beverages, clear teas, apple juice) until 3 hours prior to surgery( 6:30 AM) with a maximum of 20 ounces. - No food from midnight until time of surgery and no smoking, or chewing tobacco (or any form of nicotine). No chewing gum, candy or mints. Take only the following medications with a SIP of water on the morning of surgery: __INHALER IF NEEDED, AMLODIPINE,CARVEDILOL, TACROLIMUS, DO NOT STOP ANY OF YOUR OTHER PRESCRIPTION MEDICATIONS PRIOR TO SURGERY EXCEPT THE FOLLOWING Hold all vitamins and supplements for 3 days per anesthesiologist. Medications to discontinue per physician ASPIRIN PER DR GONSALEZ Date to take last dose Please no make-up, nail mongolian, hairspray, perfume, deodorant, or body powder the day of surgery.? No jewelry (including any body piercings) or valuables the day of surgery, leave them at home.? Please take a shower or bath the night before, or the morning of, surgery with an antibacterial soap.? Wear comfortable, loose fitting clothing.? Children are encouraged to wear pajamas. - Jewelry must be removed prior to entering the operating room.? Rings and piercings that are not removed may be cut off. - The hospital will not accept responsibility for valuables.? - Please leave all valuables, including medications, at home the day of surgery. If you are going home after surgery, a licensed non cdl driver must drive you home.? - NO public transportation without another adult if you receive anesthesia. - We recommend that an adult stay with you for 24 hours following discharge. - We also recommend that you do not drive, make important decision, drink alcoholic beverages, or take any drugs that were not prescribed by your health care provider for at least 24 hours after your discharge time. For Pediatric surgeries, we recommend two adults accompany the child home. Follow any additional instructions given to you from your surgeon. VERBAL AND WRITTEN instructions given to __PATIENT and asked if any additional questions and then verbalized understanding. Patient advised to call surgeon office or pre surgery nurse liaison [phone] if any additional questions.
[2025-06-28 09:51] VITALS: BMI 24.0
[2025-06-28 10:48] VITALS: BP 116/65; PULSE 64; RESP 18; TEMP 36.6; O2SAT 98
--- NOTE | 2025-07-15 15:15 | WPDANESEPPF ---
Anes - Initial Pre Proc Eval Procedure: Operation Date: 07/16/25 07:30 Proposed Procedures p C5-C7, Anterior Cervical Discectomy Fusion - Sylvain Be MD Date/Time: 07/15/25 15:15 Surgeon: Sylvain Be MD Pre Op Diagnosis: cervical spondylosis Patient Data Age: 69 Gender: M Height: 1.83 m Weight: 80.5 kg Last Vital Signs Temp 97.8 F 06/28/25 10:48 Pulse 64 06/28/25 10:48 Resp 18 06/28/25 10:48 BP 116/65 06/28/25 10:48 Pulse Ox 98 06/28/25 10:48 O2 Del Method Room Air 06/28/25 10:48 Allergies Allergy/AdvReac Type Severity Reaction Status Date / Time Penicillins Allergy Unknown UNKNOWN Verified 06/28/25 09:52 cephalexin AdvReac Unknown GI DISTRESS Verified 06/28/25 09:52 ibuprofen AdvReac Other/avoid Verified 06/28/25 09:52 s Home Medications ?Medication ?Instructions ?Recorded ?Confirmed ?Type amlodipine 10 mg tablet 10 mg PO DAILY 07/28/19 06/28/25 History carvedilol 25 mg tablet 25 mg PO Q12H 07/28/19 06/28/25 History tacrolimus 1 mg capsule, 1 mg PO Q12H 08/11/19 06/28/25 History immediate-release triamcinolone acetonide 55 mcg 1 spray intranasal DAILY PRN sinus 08/11/19 06/28/25 History nasal spray aerosol (Nasacort) symptoms loratadine 10 mg tablet (Claritin) 10 mg PO DAILY 04/17/21 06/28/25 History albuterol sulfate 90 mcg/actuation 2 puff inhalation Q4-6H PRN 08/18/21 06/28/25 Rx aerosol inhaler (ProAir HFA) shortness of breath or wheezing #8.5 grams cyclobenzaprine 10 mg tablet 10 mg PO TID PRN muscle spasm #180 05/25/22 06/28/25 Rx tabs doxazosin 8 mg tablet 8 mg PO DAILY 04/16/24 06/28/25 History metformin 500 mg tablet See Rx Instructions .Route 02/02/25 06/28/25 Rx .COMPLEX #400 tabs ipratropium 0.5 mg-albuterol 3 mg 3 ml inhalation Q6-8H 03/01/25 06/28/25 History (2.5 mg base)/3 mL nebulization soln losartan 25 mg tablet See Rx Instructions .Route 05/31/25 06/28/25 Rx .COMPLEX #100 tabs aspirin 81 mg capsule 81 mg PO DAILY 06/28/25 06/28/25 History Results Review: All pre-operative results and documents have been reviewed as part of the pre-operative evaluation. [facility] Past Medical History Medical History Dysphonia Hypertension Seizures Chronic headaches Diabetes Asthma Allergies Hepatitis C antibody test negative (02/23/12) Surgical History Surgical History S/P percutaneous endoscopic gastrostomy (PEG) tube placement H/O inguinal hernia repair H/O kyphoplasty Hx of carpal tunnel repair Bilateral - January and February 2023 Liver transplant recipient (~2017) 11/03/17 Family History Family History Grandparent Diabetes mellitus Acute myocardial infarction Cerebrovascular accident Mother Family history of malignant neoplasm, Onset Age: 41 Father Hypertension Other Family history of alcoholism Family history of blood dyscrasia Social History Social History Smoking packs per day: 2 Smoking cigarettes per day: 40.0 Years smoked: 12 Smoking pack-years: 24.00 Smoking status: Former smoker Tobacco type: cigarettes Smoking end date: 12/15/84 Alcohol intake: never Substance use: never Substance use type: does not use Do You Feel Safe in your Home?: Yes Lack of Transportation: No Lack of Food: Never True Current Housing: I Have Housing Concerned About Future Housing: No Difficulty Paying Gas/Electric Bills: No Difficulty Paying for Meds: No Currently Unemployed: No Education: Associate Degree Difficulty w/ Childcare or Family Care: No Living arrangements: with family Additional living arrangements comments: Spiritual care concerns: No Anes - Eval Final PreProcedure Day of Procedure 07/15/25 15:15 Results Review: All pre-operative results and documents have been reviewed as part of the pre-operative evaluation. Informed Consent: The patient's anesthetic plan and its attendant risks and benefits were discussed with the patient/family/POA. Questions were solicited and answers provided to the satisfaction of the patient/family/POA.
[2025-07-16] MEDS: LACTATED RINGERS 1,000 ML 30 ML IV CONT (06:50)
[2025-07-16 06:58] LABS: Hematocrit 34.9 % (42.0-52.0); Hemoglobin 12.0 g/dL (14.0-18.0); Immature Platelet Fraction Pct 3.5 % (0.9-11.2); Mean Corpuscular HGB Conc 34.4 g/dl (32-36); Mean Corpuscular Hemoglobin 30.5 pg (26-34); Mean Corpuscular Volume 88.6 fl (80-100); Platelet Count Result 64 k/mm3 (150-375); Red Blood Count 3.94 M/mm3 (4.6-6.20); White Blood Count 3.7 K/mm3 (4.5-10.0)
[2025-07-16 07:09] VITALS: BP 122/63; PULSE 75; TEMP 36.6; O2SAT 100; BMI 23.6
--- NOTE | 2025-07-16 07:28 | WPDNEUROSGPN ---
Subjective Date/time seen: 07/16/25 07:28 Interval history: Unfortunately, MR. Harrell's platelets are 64 this morning on repeat. After discussion with Dr. Joshi he recommended we cancel the surgery and start an investigation on why his platelet count is dropping. I will coordinate with my office. Objective Data Vital Signs Vital Signs: Vital Signs - 24 hr 07/16/25 07:09 Temperature 98 F Pulse Rate 75 Blood Pressure 122/63 Pulse Oximetry 100 Oxygen Delivery Room Air Meds/Results Medications: Active Medications Generic Name Dose Route Start Last Admin Trade Name Freq PRN Reason Stop Dose Admin Fentanyl Citrate 25 mcg 07/15/25 15:15 Fentanyl Citrate Inj (*Crx) 100 Mcg/2 Ml Vial IV PUSH Q2M PRN Pain Lactated Ringer's 1,000 mls @ 30 mls/hr 07/15/25 15:15 07/16/25 06:50 Lr - Lactated Ringers Iv IV CONT 30 mls/hr .Q24H ERNESTINE Administration Lactated Ringer's 1,000 mls @ 30 mls/hr 07/15/25 15:15 Lr - Lactated Ringers Iv IV CONT .Q24H ERNESTINE Ondansetron HCl 4 mg 07/15/25 15:15 Ondansetron Inj 4 Mg/2 Ml Vial IV PUSH ONCE PRN Nausea Labs Labs: Laboratory Results - last 24 hr 07/16/25 07/16/25 06:34 06:51 WBC 3.7 L RBC 3.94 L Hgb 12.0 L Hct 34.9 L MCV 88.6 MCH 30.5 MCHC 34.4 RDW 12.3 Plt Count 64 L MPV 10.4 % Immature Plt Fraction 3.5 POC Capillary Glucose 119 H
== END 2025-07-16 07:54 | disposition home or self-care (01) ==
PROVIDERS: PCP Family Medicine; Visit Provider Neurological Surgery
PROC: (CPT 63030; principal; 2025-07-16 07:30)
DX: G95.9 Disease of spinal cord, unspecified (principal); M47.812 Spondylosis without myelopathy or radiculopathy, cervical region; R13.10 Dysphagia, unspecified; D69.6 Thrombocytopenia, unspecified; Z53.09 Procedure and treatment not carried out because of other contraindication; E11.9 Type 2 diabetes mellitus without complications
CPT/HCPCS: 36415; 82948; 85027; 85055; 86850; 86900; 86901; 99213; G0463; J3010; J7120